=== PATIENT | female | born 1995 | race Caucasian/White ===

== ENCOUNTER 2018-09-14 12:31 | Emergency (ER) | payer MEDICAID, SELFPAY ==
[2018-09-14 12:32] VITALS: BP 118/73; PULSE 75; RESP 16; TEMP 36.7; O2SAT 100; BMI 26.6
--- NOTE | 2018-09-14 13:06 | US_ITS ---
STUDY: FIRST TRIMESTER OBSTETRICAL ULTRASOUND REASON FOR EXAM: Female, 23 years old. Left pelvic pain LMP: 08/01/2018 TECHNIQUE: Transvaginal TECHNICAL QUALITY: Adequate. PRIOR ULTRASOUND: None. FINDINGS: There is visualization of a single gestational sac in a normal intrauterine position. The mean sac diameter (MSD) measures 0.6 cm, indicating an estimated gestational age (EGA) of 5 weeks, 0 days. The gestational sac shape is within normal limits. There is no demonstrated yolk sac. The placenta is non-visualized. There is no demonstrated embryo ( pole). The estimated gestation age (EGA) by LMP is 6 weeks, 2 days. The estimated date of delivery (KATHERINE) by LMP is 05/08/2019. The estimated gestation age (EGA) by US is 5 weeks, 0 days. The estimated date of delivery (KATHERINE) by US is 05/17/2019. The uterus measures 8.4 x 6.9 x 4.7 cm. There is no demonstrated uterine fibroid. The cervix is closed. Endometrium measures 1.3 cm The right ovary measures 2.9 x 2.5 x 2.0 cm. There is no right ovarian cyst. There is no visualized right adnexal mass or complex lesion. The left ovary measures 4.1 x 2.6 x 1.6 cm. There is a isoechoic nodule in the left ovary measuring 1.8 x 1.8 x 1.2 cm, possible resolving cyst. There is minimal fluid in the cul de sac. US/Transvaginal w/Preg US IMPRESSION: Possible gestational sac noted within the uterus measuring 6 mm. On the KATHERINE scale this measures only 5 weeks 0 days. There is no pole, yolk sac or heart rate identified. It is likely too early to determine viability. Recommend serial beta-hCG studies and follow-up ultrasound in 10-14 days to determine viability. Free fluid in the cul-de-sac Electronically Signed: Estrada Peacock MD at 15:05 EST , Service support ,
[2018-09-14] MEDS: Ondansetron 4 MG/2 ML Vial IV (13:25)
[2018-09-14] MEDS: Morphine 4 MG/ML Syringe IV ×2 (13:25→15:02)
[2018-09-14 14:05] LABS: hCG Titer Quant., Serum 1431 mIU/mL (<9 non-preg)
[2018-09-14 14:47] LABS: Mucous, Urine 0 SEEN /hpf (<or=2+); Red Blood Cells-Urine 0 SEEN /hpf (0-5)
[2018-09-14 14:51] LABS: Color, Urine Yellow (Yellow); Glucose, Dipstick 250 mg/dl (Normal); Ketone-Dipstick Negative (Negative); Leukocyte Esterase-Dipstick Negative /ul (Negative); Nitrite-Dipstick Negative (Negative); Occult Blood-Urine Negative /ul (Negative); Protein-Dipstick Negative (Negative); Urine Bilirubin Dipstick Negative (Negative); Urine Clarity Sl. Cloudy (Clear); Urine Urobilinogen Normal (Normal)
[2018-09-14 15:08] VITALS: BP 108/63; PULSE 81; RESP 16; O2SAT 100
[2018-09-14 15:10] LABS: Bacteria RARE /hpf (None Seen); Squamous Epithelial Cells - UA 0-5 SEEN /hpf (5-10); White Blood Cells 0-5 SEEN /hpf (0-5)
--- NOTE | 2018-09-14 15:23 | ED.VISSUMM ---
- ER Visit Summary Date of Service: 09/14/18 Chief Complaint: [Abdominal pain] History of Present Illness: The patient is a 23 F [presents to the emergency department complaint of abdominal pain that started 2 days ago. Patient states the pain is been continuous in the left lower quadrant and is sharp and stabbing and rates it a 8 out of 10. Patient's not had any diarrhea. Patient has vomited 4 times in the last 2 days. Patient states that she was seen at [facility] 2 days ago and had a quant that was 332. Patient also had an ultrasound that did not show anything significant. Patient subsequently had an quant 48 hours later showed her quant to be 662. Patient states that she also had another quant today and she does not know the results of it. Patient is . Patient's last menstrual period was August 04. She denies any vaginal bleeding.] Physical Examination: [HEENT-PERRLA, EOMI. Cranial nerves II through XII grossly intact. TMs clear. Mucous membranes moist. No adenopathy. Cardiovascular-regular rate and rhythm without murmur or ectopy Lungs-clear to auscultation, chest wall stable without crepitus or subcu emphysema Abdomen-normoactive bowel sounds, soft. Patient has tenderness over left lower quadrant with guarding. There is no rebound, rigidity, or perineal signs. No masses palpated. Extremities-intact ?4, normal range of motion, normal pulses, atraumatic] Test Results: [Quantitative hCG obtained in the department was 1431. Type and Rh was A+. Urinalysis unremarkable. Pelvic ultrasound showed possible gestational sac noted within the uterus measuring 6 mm on the KATHERINE scale this measures only 5 weeks 0 days there is no pole yolk sac or heart rate identified at this time. It is likely too early to determine viability. Recommended serial beta-hCG studies and follow-up ultrasound in 10 or 14 days to determine viability.] Emergency Department Course and Treatment: [Patient was medicated with morphine and Zofran initially on presentation. Patient had to be remedicated with a second dose of morphine 4 mg.] Treatment Plan: [Patient case was discussed with Dr. Garcia who is on-call for CHARGER OPERATOR who asked that patient follow-up with our office early next week and their office will call for an appointment. Patient will be given a prescription for [place] for pain. I had a long discussion with the patient at this time patient is unsure if she wants to continue the .] Disposition: [Discharged home in stable condition] Impression: [Abdominal pain-etiology uncertain at 5 weeks 0 days] This note was generated with Re-APP dictation software. It may contain incorrect words, spelling, and punctuation that were not noted in review of the chart prior to signing ED Disposition - Plan for ED Patient: Chief Complaint: Abd Pain Referrals: [facility] Doctor,Out of [Primary Care Provider] -
--- NOTE | 2018-09-14 15:27 | ED.DCSUM_ITS ---
- ER Visit Summary Date of Service: 09/14/18 Chief Complaint: [Abdominal pain] History of Present Illness: The patient is a 23 F [presents to the emergency department complaint of abdominal pain that started 2 days ago. Patient states the pain is been continuous in the left lower quadrant and is sharp and stabbing and rates it a 8 out of 10. Patient's not had any diarrhea. Patient has vomited 4 times in the last 2 days. Patient states that she was seen at [facility] 2 days ago and had a quant that was 332. Patient also had an ultrasound that did not show anything significant. Patient subsequently had an quant 48 hours later showed her quant to be 662. Patient states that she also had another quant today and she does not know the results of it. Patient is . Patient's last menstrual period was August 04. She denies any vaginal bleeding.] Physical Examination: [HEENT-PERRLA, EOMI. Cranial nerves II through XII grossly intact. TMs clear. Mucous membranes moist. No adenopathy. Cardiovascular-regular rate and rhythm without murmur or ectopy Lungs-clear to auscultation, chest wall stable without crepitus or subcu emphysema Abdomen-normoactive bowel sounds, soft. Patient has tenderness over left lower quadrant with guarding. There is no rebound, rigidity, or perineal signs. No masses palpated. Extremities-intact ?4, normal range of motion, normal pulses, atraumatic] Test Results: [Quantitative hCG obtained in the department was 1431. Type and Rh was A+. Urinalysis unremarkable. Pelvic ultrasound showed possible gestational sac noted within the uterus measuring 6 mm on the KATHERINE scale this measures only 5 weeks 0 days there is no pole yolk sac or heart rate identified at this time. It is likely too early to determine viability. Recommended serial beta-hCG studies and follow-up ultrasound in 10 or 14 days to determine viability.] Emergency Department Course and Treatment: [Patient was medicated with morphine and Zofran initially on presentation. Patient had to be remedicated with a second dose of morphine 4 mg.] Treatment Plan: [Patient case was discussed with Dr. Garcia who is on-call for PHYSICIAN CODING SPECIALIST who asked that patient follow-up with our office early next week and their office will call for an appointment. Patient will be given a prescription for [place] for pain. I had a long discussion with the patient at this time patient is unsure if she wants to continue the .] Disposition: [Discharged home in stable condition] Impression: [Abdominal pain-etiology uncertain at 5 weeks 0 days] This note was generated with VISUALPLANT dictation software. It may contain incorrect words, spelling, and punctuation that were not noted in review of the chart prior to signing ED Disposition - Plan for ED Patient: Chief Complaint: Abd Pain Referrals: [facility] Doctor,Out of [Primary Care Provider] -
--- NOTE | 2018-09-14 15:29 | DCINST.ED_ITS ---
ED Disposition - Plan for ED Patient: Chief Complaint: Abd Pain Instructions: ED Abdominal Pain Unkn Cause Prescriptions: Hydrocodone Bitart/Apap 5-325 [[place] 5MG-325MG] 1 tab PO Q4H PRN PRN 2 Days #15 tab PRN Reason: Pain Referrals: [facility] Doctor,Out of [Primary Care Provider] - Artemio Garcia [STAFF PHYSICIAN] - 3-5 Days
--- NOTE | 2018-09-14 16:22 | ED.DEP ---
ED Disposition - Plan for ED Patient: Chief Complaint: Abd Pain Instructions: ED Abdominal Pain Unkn Cause Prescriptions: Hydrocodone Bitart/Apap 5-325 [[place] 5MG-325MG] 1 tab PO Q4H PRN PRN 2 Days #15 tab PRN Reason: Pain proMETHazine tablet [Phenergan] 25 mg PO Q6H PRN PRN #10 tab PRN Reason: Nausea Referrals: Artemio Garcia [STAFF PHYSICIAN] - 3-5 Days [facility] Doctor,Out of [Primary Care Provider] -
[2018-09-14 16:38] VITALS: BP 130/74; PULSE 74; RESP 16; O2SAT 98
== END 2018-09-14 16:38 | disposition home or self-care (01) ==
PROVIDERS: Emergency Provider Emergency Medicine
DX: O26.891 Other specified pregnancy related conditions, first trimester (principal); R10.9 Unspecified abdominal pain; Z3A.01 Less than 8 weeks gestation of pregnancy; Z79.899 Other long term (current) drug therapy
CPT/HCPCS: 76817; 81001; 84702; 86900; 96374; 96375; 96376; 99282; J7030; A4216; J2405

== ENCOUNTER 2018-10-06 10:56 | Emergency (ER) | payer MEDICAID, SELFPAY ==
[2018-10-06 10:57] VITALS: BP 104/65; PULSE 64; RESP 16; TEMP 36.4; O2SAT 100; BMI 28.2
[2018-10-06] MEDS: Acetaminophen 500 MG Tablet 1000 MG PO (11:39)
[2018-10-06] MEDS: DiphenhydrAMINE 50 MG/ML Syringe IV (11:40)
[2018-10-06] MEDS: proCHLORPERazine 10 MG/2 ML Vial IV (11:40)
--- NOTE | 2018-10-06 12:26 | ED.DCSUM_ITS ---
- ER Visit Summary Date of Service: 10/06/18 Chief Complaint: Headache History of Present Illness: The patient is a [address] Toño Gleason [facility]. She is a at 8 weeks by ultrasound 4 days ago. She denies any vaginal bleeding or discharge . She reports that she has a headache that began yesterday and is gradually gotten worse. Is a throbbing sensation a halo. 10 at 10 worsening a 10 currently. Is worsened by vomiting. She relieved by nothing. She reports she is vomited 4 times. No blood or emesis. She complains of photophobia and blurred vision. She has had similar headaches multiple times in the past. Last one being approximate 4 days ago. She denies any fever, chills, or other complaints. Physical Examination: Vitals: Stable. Afebrile. General: Well-nourished and well-developed. Head: Normocephalic atraumatic. Neck: Supple, no lymphadenopathy. No JVD. Nontender. Cardiovascular: Regular rate and rhythm. No murmurs. Respiratory: No respiratory distress. Clear to auscultation bilaterally. Abdominal: Soft, nontender, nondistended, normal bowel sounds. No guarding, rebound, or peritoneal signs. Back: Nontender. Extremities: Nontender, no edema. Skin: Normal color, no rash. Neurologic: Alert and oriented ?3. Cranial nerves II through XII are intact. Normal strength and sensation. Psych: Normal affect. Emergency Department Course and Treatment: Patient had IV placed. She was given Compazine and Benadryl IV. She was given Tylenol p.o. She is resting comfortably. Treatment Plan: Patient will be discharged symptomatic care. Instructed to follow-up with Dr. Toño Gleason in 1-2 days not improving. Return to the emergency department for any worsening symptoms. Disposition: To home in improved and stable condition. Impression: 1. Migraine headache. 2. First trimester . This note was generated with VoicePrism Innovationsation software. It may contain incorrect words, spelling, and punctuation that were not noted in review of the chart prior to signing ED Disposition - Plan for ED Patient: Chief Complaint: Headache Instructions: ED Headache Migraine Referrals: Kevin Sotelo MD [STAFF PHYSICIAN] - 1-2 Days if not improving
[2018-10-06 14:06] VITALS: PULSE 66; RESP 17; O2SAT 100
== END 2018-10-06 14:07 | disposition home or self-care (01) ==
PROVIDERS: Emergency Provider Emergency Medicine
DX: O26.891 Other specified pregnancy related conditions, first trimester (principal); G43.909 Migraine, unspecified, not intractable, without status migrainosus; Z3A.08 8 weeks gestation of pregnancy; F90.9 Attention-deficit hyperactivity disorder, unspecified type; F41.9 Anxiety disorder, unspecified; Z79.899 Other long term (current) drug therapy
CPT/HCPCS: 96374; 96375; 99284; J7030; A4216

== ENCOUNTER 2018-10-12 03:26 | Emergency (ER) | payer MEDICAID, SELFPAY ==
[2018-10-12 03:27] VITALS: PULSE 67; RESP 18; TEMP 36.6; O2SAT 99; BMI 28.6
--- NOTE | 2018-10-12 03:38 | ED.DCSUM_ITS ---
- ER Visit Summary Date of Service: 10/12/18 Chief Complaint: [] Nausea and vomiting History of Present Illness: The patient is a 23 F stated she has been having nausea and vomiting for the last 2-3 days. She had 10 episodes yesterday of 5 today. This is her third . She is 8 weeks 5 days by dates. She is seeing Dr. Reyes with OB. She has Zofran and Dramamine at home for nausea as she gets frequent migraines but it does not seem to be helping. Comes in for further symptomatic treatment she does not want to get dehydrated Physical Examination: Vital signs reviewed General: Well-nourished well-developed Head: Normocephalic atraumatic Eyes: Pupils equal round and reactive to light extraocular movements intact ENT: TMs clear no hemotympanum no trauma Neck: Nontender full range of motion Cardiovascular: Regular rate rhythm no murmurs normal S1-S2 Respiratory: No distress clear to auscultation bilaterally chest nontender Abdomen: Soft nontender nondistended normal bowel sounds no masses Back: Nontender no CVA tenderness Extremities: Nontender active range of motion ?4 extremities no trauma Skin: Normal color no trauma Neuro alert oriented cranial nerves II through XII intact normal strength sensation reflexes Test Results: [] Emergency Department Course and Treatment: [] Resting comfortably. Given IV fluids and she requested Compazine. Given Compazine. Better after treatment. Resting comfortably. Will be discharged with a short course of Phenergan. I do not feel she needs further lab work. She appears nontoxic. She will follow-up with her SPEECH LANGUAGE PATHOLOGY ASSISTANT and has an appointment in 3 days. Treatment Plan: [] Disposition: [] Impression: [] Nausea And vomiting in This note was generated with DigiZmartation software. It may contain incorrect words, spelling, and punctuation that were not noted in review of the chart prior to signing ED Disposition - Plan for ED Patient: Chief Complaint: Nausea/Vomiting Referrals: Kevin Sotelo MD [Primary Care Provider] -
[2018-10-12] MEDS: 0.9% Normal Saline 1,000 ML 1000 ML IV (03:46)
[2018-10-12] MEDS: proCHLORPERazine 10 MG/2 ML Vial IV (03:46)
--- NOTE | 2018-10-12 04:20 | ED.DEP ---
ED Disposition - Plan for ED Patient: Disposition: Home or Assisted Living Chief Complaint: Nausea/Vomiting Instructions: ED Preg Morning Sickness Prescriptions: proMETHazine tablet [Phenergan] 25 mg PO Q6H PRN PRN #10 tab PRN Reason: Nausea Ondansetron [Zofran Odt] 8 mg PO Q8H PRN PRN #10 tab PRN Reason: Nausea Referrals: Kevin Sotelo MD [Primary Care Provider] -
[2018-10-12 04:58] VITALS: PULSE 88; RESP 16; O2SAT 98
--- OUTSIDE RECORDS SUMMARY | 2018-11-27 16:10 | XMS RPT_ITS ---
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 Gestational diabetes 10/31/2013 - Migraine - Stroke ([facility]) - Type 2 diabetes mellitus ([facility]) - Unspecified asthma(493.90) EXERCISE INDUCED PAST SURGICAL HISTORY Procedure Laterality Date - APPENDECTOMY summer 2005 - BREAST LUMPECTOMY HX - DANDC AFTER DELIVERY 01/03/14 3 days PP, delayed PP hemorrhage - EXCISION OF LINGUAL TONSIL 06/01 - PAST SURGICAL HISTORY OF left knee surgery FAMILY HISTORY Problem Relation Age of Onset - No Known Problems Mother - Allergies Father - Skin Cancer Father - Stroke Father - No Known Problems Sister - Skin Cancer Brother - No Known Problems Brother - Cancer Maternal Grandmother OVARIAN, great grandmother also - Prostate Cancer Maternal Grandfather LUNG AND PROSTRATE - Emphysema Maternal Grandfather - COPD Maternal Grandfather - other (cholecystitis) Sister - Diabetes Paternal Uncle - Diabetes Paternal Aunt - No Known Problems Daughter Social History Marital status: Spouse name: Years of education: 14 Number of children: Occupational History 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 Has a daughter born 2013. Patient denies tobacco use, EtOH use or experimentation with illegal drugs. Current Outpatient Prescriptions: acetaminophen (TYLENOL) 500 mg tablet Take 500 mg by mouth. acetaminophen 325 mg-caffeine 40 mg-butalbital 50 mg (FIORICET) per tablet Take by mouth. albuterol (PROVENTIL) 2.5 mg /3 mL (0.083 %) nebulizer solution albuterol HFA (VENTOLIN HFA) 90 mcg/actuation inhaler Inhale 2 Puffs as instructed every 4 hours as needed for Wheezing/Shortness of Breath. ALPRAZolam (XANAX) 0.5 mg tablet Take 1 po TID and 2 po qhs amphetamine-dextroamphetamine XR (ADDERALL XR) 20 mg 24 hr capsule Take 1 capsule by mouth once daily for 30 days.Earliest Fill Date: 10/01/18 aspirin-calcium carbonate 81 mg-300 mg calcium(777 mg) tab Take 81 mg by mouth. blood sugar diagnostic (BLOOD GLUCOSE TEST) test strip Test blood sugar(s) 3 times daily. Dx: Type 2 DM - Controlled E11.9 Insulin: No. Elevated sugars and fluctuating sugars. Blood-Glucose Meter misc 1 Package four times daily. Check blood sugars fasting and 2 hours after meals. buPROPion SR (ZYBAN SR; WELLBUTRIN SR) 150 mg 12 hr tablet Take 1 tablet by mouth twice daily. cetirizine (ZYRTEC) 10 mg tablet Take 10 mg by mouth. doxylamine 25 mg tab Take 1 tablet by mouth daily at bedtime. EPINEPHrine (EPIPEN) 0.3 mg/0.3 mL auto-injector Use as directed prn allergic reaction lamoTRIgine (LAMICTAL) 100 mg tablet Take 1 tablet by mouth once daily. meclizine (ANTIVERT) 25 mg tab Take 1 tablet by mouth every 6 hours as needed (dizziness). mometasone (ASMANEX) 220 mcg (60 doses) aepb Inhale as instructed. ondansetron orally disintegrating (ZOFRAN ODT) 4 mg disintegrating tablet [id number]-Fm-Hvz-Fe-FA ( VITAMIN) tab Take 1 tablet by mouth. promethazine (PHENERGAN) 25 mg tablet Take 1 tablet by mouth every 6 hours as needed. SUMAtriptan (IMITREX) 50 mg tablet Take 50 mg by mouth. triamcinolone acetonide (NASACORT AQ) 55 mcg nasal inhaler Use in the nose. cyclobenzaprine (FLEXERIL) 10 mg tablet Take 10 mg by mouth. gabapentin (NEURONTIN) 800 mg tablet Take 800 mg by mouth. takes a sneeded hydrOXYzine pamoate (VISTARIL) 25 mg capsule Take 1 capsule by mouth three times daily as needed for Anxiety. (Patient not taking: Reported on 10/15/2018 ) metFORMIN (GLUCOPHAGE) 500 mg tablet Take 1 tablet by mouth twice daily with meals. . (Patient not taking: Reported on 06/05/2018 ) naproxen (NAPROSYN) 500 mg tablet Take 1 tablet by mouth twice daily with meals. (Patient not taking: Reported on 10/15/2018 ) pyridoxine, vitamin B6, (VITAMIN B6) 25 mg tablet Take 1 tablet by mouth daily at bedtime. (Patient not taking: Reported on 10/29/2018 ) topiramate (TOPAMAX) 25 mg tablet No current facility-administered medications for this visit. Allergies As of Date: 10/29/2018 Allergen Noted Reaction LATEX 06/05/2018 Unknown TAPE [OTHER] 11/23/2005 Rash VERAPAMIL 06/05/2018 Anaphylaxis Fully Assessed 10/29/2018 REVIEW OF SYSTEMS Abdomen: No bloating, early satiety, indigestion, or increased flatulence. No nausea, vomiting, diarrhea, or constipation. + Abdominal pain noted, Rt>Lt side, rated 7-8/10 Bladder: No dysuria, gross hematuria, urinary frequency, urinary urgency, or incontinence. Breast: No breast lumps, nipple d/c, overlying skin changes, redness or skin retraction. Expanded ROS: N/A Allergies and current medication updated:Yes EXAM: BP 106/74 Wt 161 lb (73.0kg) LMP 08/01/2018 GENERAL: pleasant, female in moderate distress HEENT: Normocephalic, atraumatic, mucus membranes moist and no lesions NECK: Supple, full range of motion, no adenopathy and thyroid normal DERMATOLOGY: Normal, without lesions, non-icteric and non-hirsute BREAST: deferred CHEST: Normal inspiratory effort ABDOMEN: soft, non-tender, no masses, no hepatosplenomegaly, no lymphadenopathy and Mild tenderness in Generalized PELVIC: external genitalia normal, normal Bartholin's glands, urethra, Juliaetta's glands, no vulvar lesions, no cervical lesions, good vaginal support, normal appearing perineal body and perianal region BIMANUAL: uterus normal size, shape and consistency, no adnexal masses, non-tender and NT to palpation NEURO: alert and oriented x3,exam grossly non-focal EXTREMITIES: normal Limited TVUS - Thickened endometrium measuring between 10- 45mm, normal adnexa noted. No evidence of heterogenous structure on Rt. Ovary noted. No IUP noted. ASSESSMENT AND PLAN: Encounter Diagnosis ICD-10-CM 1. Spontaneous O03.9 1) Cytotec 200mg PO q 6 hours 2) Flexeril 10mg PO BID PRN pain #10 disp no RF 3) Bleeding Precautions reviewed 4) RTC PRN Lino Huber APRN.KIRILL Referring Provider: SELF [200] Allergies As of Date: 10/29/2018 Noted Allergy Reaction LATEX 06/05/2018 16 - Unknown TAPE [Other] 11/23/2005 2 - Rash VERAPAMIL 06/05/2018 10 - Anaphylaxis Date Reviewed: 10/29/2018 Reviewed by: Maria Alejandra Anna Ma - Fully Assessed Reason for Visit: Care [86] Cmt: Bleeding Reason For Visit History Recorded Primary Visit Diagnosis:Spontaneous [O03.9] Order(s):miSOPROStol (CYTOTEC) 200 mcg tabletTake 1 tablet by mouth every 6 hours as needed.Disp: 4 tabletRfl: 0 cyclobenzaprine (FLEXERIL) 10 mg tabletTake 1 tablet by mouth twice daily as needed.Disp: 10 tabletRfl: 5 Prescriptions as of 10/29/2018 Sig: ACETAMINOPHEN 500 MG TABLET Take 500 mg by mouth. QYSDTEWSGO-[id number]-HWBF* Take by mouth. ALBUTEROL SULFATE 2.5 MG/3 ML* ALBUTEROL SULFATE HFA 90 MCG/* Inhale 2 Puffs as instructed * ALPRAZOLAM 0.5 MG TABLET Take 1 po TID and 2 po qhs DEXTROAMPHETAMINE-AMPHETAMINE* Take 1 capsule by mouth once * ASPIRIN-CALCIUM CARBONATE 81 * Take 81 mg by mouth. BLOOD SUGAR DIAGNOSTIC STRIPS Test blood sugar(s) 3 times d* BLOOD-GLUCOSE METER 1 Package four times daily. C* BUPROPION HCL SR 150 MG TABLE* Take 1 tablet by mouth twice * CETIRIZINE 10 MG TABLET Take 10 mg by mouth. DOXYLAMINE SUCCINATE 25 MG TA* Take 1 tablet by mouth daily * EPINEPHRINE 0.3 MG/0.3 ML INJ* Use as directed prn allergic * LAMOTRIGINE 100 MG TABLET Take 1 tablet by mouth once d* MECLIZINE 25 MG TABLET Take 1 tablet by mouth every * MOMETASONE 220 MCG (60 DOSES)* Inhale as instructed. ONDANSETRON 4 MG DISINTEGRATI* VITAMIN,CALCIUM,MINE* Take 1 tablet by mouth. PROMETHAZINE 25 MG TABLET Take 1 tablet by mouth every * SUMATRIPTAN 50 MG TABLET Take 50 mg by mouth. TRIAMCINOLONE ACETONIDE 55 MC* Use in the nose. CYCLOBENZAPRINE 10 MG TABLET Take 1 tablet by mouth twice * GABAPENTIN 800 MG TABLET Take 800 mg by mouth. takes a* HYDROXYZINE PAMOATE 25 MG CAP* Take 1 capsule by mouth three* Patient not taking: Reported on 10/15/2018 METFORMIN 500 MG TABLET Take 1 tablet by mouth twice * Patient not taking: Reported on 06/05/2018 MISOPROSTOL 200 MCG TABLET Take 1 tablet by mouth every * NAPROXEN 500 MG TABLET Take 1 tablet by mouth twice * Patient not taking: Reported on 10/15/2018 PYRIDOXINE (VITAMIN B6) 25 MG* Take 1 tablet by mouth daily * Patient not taking: Reported on 10/29/2018 TOPIRAMATE 25 MG TABLET Problem List As Of Date 10/29/2018 Noted Resolved Inguinal hernia with obstruction, without menti*INVALID FOR*03/18/2013 PAIN GROIN (right) [R10.9] INVALID FOR*03/18/2013 Abdominal pain, right lower quadrant [R10.31] INVALID FOR*03/18/2013 Lumbago [M54.5] INVALID FOR* Headache [R51] INVALID FOR* TMJ (temporomandibular joint syndrome) [M26.609]INVALID FOR* Intermittent asthma with allergic rhinitis [J45*INVALID FOR* More... Family history of defects [Z82.79] INVALID FOR*10/07/2015 More... More... Rubella non-immune status, antepartum [O99.89, *INVALID FOR*02/11/2014 More... Gestational diabetes [O24.419] INVALID FOR*02/11/2014 More... Supervision of other high-risk (V23.89*INVALID FOR*02/11/2014 More... Type 2 diabetes mellitus without complication (*INVALID FOR* More... Anxiety [F41.9] INVALID FOR* Bipolar affective disorder (HCC) [F31.9] INVALID FOR* Support system deficit [Z65.8] INVALID FOR* More... History of loss in prior , c*INVALID FOR*10/29/2018 More... History of bipolar disorder [Z86.59] INVALID FOR* More... History of stroke [Z86.73] INVALID FOR* More... History of gestational diabetes in prior pregna*INVALID FOR*10/29/2018 More... History of macrosomia in infant in prior pregna*INVALID FOR*10/29/2018 More... History of shoulder dystocia with result of fra*INVALID FOR*10/29/2018 More... History of hemorrhage, currently pre*INVALID FOR*10/29/2018 More... Patient request for diagnostic testing [Z01.89] INVALID FOR* More... Breast pain, left [N64.4] INVALID FOR* More... Positive BARTOLO (antinuclear antibody) [R76.8] INVALID FOR* More... Supervision of high risk in first tri*INVALID FOR*10/29/2018 More... Other instructions from your clinician: Bleeding in Early Many women experience bleeding in the first trimester. This can be part of the normal process of establishing the , commonly called implantation bleeding or can occur if there is a collection of blood in the uterus (your doctor may refer to this as a subchorionic hemorrhage or subchorionic hematoma). Bleeding can also happen due to infection in the vagina or benign overgrowths on the cervix called polyps. Most of these situations will go on to be normal pregnancies. Bleeding can also occur with a miscarriage or an ectopic ( outside of the uterus, most commonly in the fallopian tube). In order to tell if the is normal or not, your doctor may order lab tests or an ultrasound. Blood work is usually done to check your HCG level, which is the hormone. HCG increases in a predictable pattern in early . If the level is decreasing it means the has stopped developing. Your doctor will also order a blood type test if your blood type is unknown. If your blood type is negative you will receive an injection of Rhogam to prevent sensitization for future pregnancies. An ultrasound may be ordered to see if the is in the correct location or to check if the fetus has a heartbeat. Whether an ultrasound will be helpful or not depends on how far along you are in the . If you are diagnosed with a miscarriage (also called a spontaneous ), there are several options for treatment. You may choose to wait and see if your body will pass the on its own, which is similar to a heavy period with cramping. Misoprostol is a medication that can help speed up the process and is given either in the vagina or by mouth. Surgical management for miscarriage is called a DANMO and involves your doctor emptying out the uterus with suction. This is done under sedation in the operating room. If at any time you experience heavy vaginal bleeding (soaking through a pad in an hour or less), severe abdominal pain, lightheadedness or shortness of breath you need to call your doctor immediately or go the the emergency room. We understand this is a difficult time for you and your family and will do our best to answer all of your questions and concerns. SIGNS AND SYMPTOMS OF LABOR 1. Contractions every 10 minutes or more often 2. Clear, pink, or brownish fluid (water) leaking from vagina 3. Feeling that baby is pushing down, pressure 4. Low, dull backache 5. Cramps that feel like a period 6. Cramps with or without diarrhea If you notice any of the above symptoms, contact our office at [phone] and ask to speak with a nurse. After hours, you can call doctors registry at [phone] OR call [facility] at [phone] and ask to have the doctor adapted physical education specialist paged. If you consider this an emergency, dial 1-4-6 or go to your nearest emergency department. NEED HELP? Are you dealing with a violent or abusive relationship? Are you a victim of rape or sexual assult? Call [facility] ([facility] 24 hour Crisis Hotline: 333.504.5171 or 735-217-8176. MANUAL Your Guide to a Healthy manual is now on-line. Visit [email or web address] to download your free copy Prescriptions ordered this encounter Disp Refills Start End MISOPROSTOL 200 MCG TABLET 4 ta* 0 10/29/2018 10/29/2018 Route: ORAL Sig: Take 1 tablet by mouth every 6 hours as needed. Disc: Other MISOPROSTOL 200 MCG TABLET 4 ta* 0 10/29/2018 Route: ORAL Sig: Take 1 tablet by mouth every 6 hours as needed. CYCLOBENZAPRINE 10 MG TABLET 10 t* 5 10/29/2018 Route: ORAL Sig: Take 1 tablet by mouth twice daily as needed. Medications Discontinued During This Encounter miSOPROStol (CYTOTEC) 200 mcg tablet 4 ta* 0 10/29/2018 10/29/2018 Route: ORAL Sig: Take 1 tablet by mouth every 6 hours as needed. Disc: Other cyclobenzaprine (FLEXERIL) 10 mg tab* 10/29/2018 Class: Historical Med Route: ORAL Sig: Take 10 mg by mouth. Disc: Reason for discontinue is not on file. Disposition: Return if symptoms worsen or fail to improve. Follow-up and Disposition History Recorded Encounter Status:Closed by LINO HUBER CNM on 10/29/18 URINALYSIS, COMPLETE Collected: 10/28/2018 Status: F Source: [place] 10:20 PM [facility] [place] [facility] Order Comment: Order Date: 10/28/18 COLOR OF URINE MAY AFFECT DIPSTICK RESULTS. How was Urine Obtained? CLEAN CATCH TYPE CODE TESTS RESULT OUT OF RANGE REFERENCE UNITS LAB L400.3000 Yellow COLOR Normal Red LAB L400.3050 Clear Normal CLARITY Cloudy LAB L400.3200 Normal mg/dl High 50 GLUCOSE, UR LAB L400.3300 Negative mg/dL Normal BILIRUBIN URINE Negative LAB L400.3400 Negative mg/dl High 5 KETONE UR LAB L400.3465 1.002-1.030 Normal SP.GR. DIPSTX 1.015 LAB L400.3550 5.0 - 8.0 pH UR Normal 6.5 LAB L400.3600 Negative mg/dl High PROT 30 DIPSTX LAB L400.3700 Normal mg/dl Normal UROBILI Normal LAB L400.3750 Negative Normal NITRITE UR Negative LAB L400.3780 Negative /ul High OCCULT BLOOD-UR 250 LAB L400.3800 Negative /ul High LEUK ESTERASE 100 LAB L400.4050 0-5 /hpf WBC Normal 0-5 SEEN LAB L400.4100 0-5 /hpf > Normal RBC-UA 100 SEEN LAB L400.4150 5-10 /hpf SQUAM Normal EPI 0-5 SEEN LAB L400.4300 None Seen /hpf 0 Normal BACTERIA SEEN LAB L400.4350 <or=2+ /hpf 0 Normal MUCUS, URINE SEEN Performed By: #### L400.0001 #### [facility] [address] [place], [address] TRANSVAGINAL W/PREG US Observed: 10/28/2018 Status: F Source: [place] 9:22 PM [facility] [place] [facility] Imaging Services [address] [place] [address] Transvaginal w/Preg US MR#: [id number] Acct: [id number] Name: BERNADETTE FAUST Rep #: [id number] : 1995 F 23 From: Stanton Matson PCP: Becky Sotelo MD Status: REG ER Study: Transvaginal w/Preg US Date of Exam: 10/28/18 Exam# [id number] Ordering Dr: Raghu Orozco MD STUDY: FIRST TRIMESTER OBSTETRICAL ULTRASOUND REASON FOR EXAM: Female, 23 years old. Abdominal pain. Worsening bleeding with . LMP: 08/11/2018. TECHNIQUE: Transabdominal. TECHNICAL QUALITY: Adequate. PRIOR ULTRASOUND: October 22, 2018. FINDINGS: Nonvisualization of the gestational sac, yolk sac, placenta or embryo. No heart tones identified. Previously noted embryo is not visualized. The estimated gestation age (EGA) by LMP is 11 weeks, 1 days. The estimated date of delivery (KATHERINE) by LMP is 05/18/2019.. The uterus measures 10.2 x 8.9 x 6.6 cm. There is no demonstrated uterine fibroid. Endometrium measures 46 mm and is heterogeneous in echotexture. The cervix is closed. The right ovary measures 2.9 x 2.1 x 1.6 cm. There is no right ovarian cyst. There is no visualized right adnexal mass or complex lesion. Inferior to the right ovary is a 1.7 x 1.7 cm heterogeneous structure with an anechoic center of uncertain clinical significance. The left ovary measures 3.6 x 2.7 x 1.9 cm. There is no left ovarian cyst. There is no visualized left adnexal mass or complex lesion. There is no fluid in the cul de sac. US/Transvaginal w/Preg US IMPRESSION: Previously noted intrauterine gestation is no longer visualized. This suggests a recent miscarriage. Recommend serial beta-hCG, close clinical correlation and follow-up ultrasound as warranted. Thickened heterogeneous endometrium suggestive of retained products of conception. 1.7 cm heterogeneous structure inferior to the right ovary of uncertain clinical significance. A concurrent ectopic is unlikely. This can be followed with ultrasound. Electronically Signed: Stanton Matson MD at 0:35 EST , Service support , CC: Raghu Orozco MD; Becky Sotelo MD [employer] Supervisor: Signed PROGRESS Observed: 10/26/2018 Status: COMPLETED Source: [place] 8:06 AM [facility] [place] RE[facility] HNO ID: [id number] Author: Angelique Cee Service: (none) Author Type: Nurse Practitioner Type: Progress Notes Filed: 10/26/2018 8:08 AM Note Text: This is an Express Care eVisit note for Bernadette Faust eVisit/Questionnaire reviewed The chief complaint for the visit - Patient presents with: (R05) Cough (primary encounter diagnosis) Recommendations/Treatment plan - referral See My Chart Message to patient. Recommendation for follow up - in person No medications selected for refill. Angelique Cee APRN.[facility] EMERGENCY DEPARTMENT Observed: 10/22/2018 Status: F Source: [place] SUMMARY 10:47 PM [facility] [place] [facility] [facility] Medical Records Department [address] [place] [address] Emergency Department Summary 10/22/182008 MR#: [id number] Acct: [id number] Name: BERNADETTE FAUST Rep #: [id number] : 1995 23 From: Linda Watkins MD PCP: Becky Sotelo MD Status: DEP ER - ER Visit Summary Date of Service: 10/22/18 Chief Complaint: [] Pelvic cramps scant vaginal bleeding 10 weeks by history History of Present Illness: The patient is a 23 F [] AB 1 reports she 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 she presents complaining of some pelvic cramps that occurred after she had been moving some light boxes, no trauma no sex, she noticed that she wiped she noticed some minimal blood on the toilet paper no heavy bleeding, she had no trauma to her body no back pain no urinary symptoms, she indicates she is been seen multiple times in the 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 by [facility] she has had multiple ultrasounds that have shown a 10-week live IUP no ectopic her quant to been in the normal ranges she presents for evaluation Physical Examination: [] Her vital signs are all within normal range she is in no distress General, no distress resting comfortably HEENT is generally unremarkable The neck is supple no adenopathy Cardiovascular, regular rate and rhythm Lungs, clear bilateral Abdomen, soft nontender, she complains of some vague pain in the suprapubic area this area is soft and nontender Extremities, no clubbing cyanosis or edema Neurologic, awake alert answering questions appropriately moving all 4 extremities Test Results: [] Emergency Department Course and Treatment: [] This time given all the above screening labs ultrasound Ultrasound per radiology shows 10-week live IUP no signs of ectopic see that report her UA labs are generally unremarkable she reports she is a positive she is feeling better All the above she will discharge home pelvic rest threatened AB instructions follow with her physicians and return for change in symptoms Treatment Plan: [] Disposition: [] Home stable Impression: [] Vaginal bleeding, threatened AB, 10-week live IUP ultrasound This note was generated with [employer] dictation software. It may contain incorrect words, spelling, and punctuation that were not noted in review of the chart prior to signing ED Disposition - Plan for ED Patient: Chief Complaint: Vag Bld, Preg Referrals: Becky Sotelo MD [Primary Care Provider] - What to do if you have Problems For any increased pain, shortness of breath, bleeding, nausea or vomiting, chest pain, or any unexpected problems, contact your Primary Care Provider. Call [employer] To Get Approved For Registry ([phone]) or report to the closest Emergency Room. Call 911 if necessary. 10/22/182246 <Electronically signed by Linda Watkins MD> Date Linda Watkins MD Cosigner Signature (If Indicated): Date CC: Becky Sotelo MD DISCHARGE INSTRUCTION Observed: 10/22/2018 Status: F Source: [place] 10:29 PM [facility] [place] [facility] [facility] Medical Records Department [address] [place] [address] Discharge Instruction 10/22/182227 MR#: [id number] Acct: [id number] Name: BERNADETTE FAUST Rep #: [id number] : 1995 23 From: Linda Watkins MD PCP: Becky Sotelo MD Status: REG ER ED Disposition - Plan for ED Patient: Chief Complaint: Vag Bld, Preg Instructions: ED Miscarriage Poss Referrals: Becky Sotelo MD [Primary Care Provider] - Additional Instructions: Rest return for change in symptoms follow-up with your outpatient providers What to do if you have Problems For any increased pain, shortness of breath, bleeding, nausea or vomiting, chest pain, or any unexpected problems, contact your Primary Care Provider. Call Doctors Registry ([phone]) or report to the closest Emergency Room. Call 911 if necessary. 10/22/182228 <Electronically signed by Linda Watkins MD> Date Linda Watkins MD Cosigner Signature (If Indicated): Date CC: Becky Sotelo MD URINALYSIS, COMPLETE Collected: 10/22/2018 Status: F Source: [place] 9:51 PM [facility] [place] [facility] Order Comment: Order Date: 10/22/18 How was Urine Obtained? SUPPORT CLERK TO SPECIFY TYPE CODE TESTS RESULT OUT OF RANGE REFERENCE UNITS LAB L400.3000 Yellow COLOR Normal Yellow LAB L400.3050 Clear Normal CLARITY Clear LAB L400.3200 Normal mg/dl High GLUCOSE, UR 250 LAB L400.3300 Negative mg/dL Normal BILIRUBIN URINE Negative LAB L400.3400 Negative mg/dl Normal KETONE UR Negative LAB L400.3465 1.002-1.030 Normal SP.GR. DIPSTX 1.010 LAB L400.3550 5.0 - 8.0 pH UR Normal 6.0 LAB L400.3600 Negative mg/dl PROT Normal DIPSTX Negative LAB L400.3700 Normal mg/dl Normal UROBILI Normal LAB L400.3750 Negative Normal NITRITE UR Negative LAB L400.3780 Negative /ul Normal OCCULT BLOOD-UR Negative LAB L400.3800 Negative /ul LEUK Normal ESTERASE Negative LAB L400.4050 0-5 /hpf WBC 0 Normal SEEN LAB L400.4100 0-5 /hpf 0 Normal RBC-UA SEEN LAB L400.4150 5-10 /hpf SQUAM Normal EPI 0-5 SEEN LAB L400.4300 None Seen /hpf 0 Normal BACTERIA SEEN LAB L400.4350 <or=2+ /hpf 0 Normal MUCUS, URINE SEEN Performed By: #### L400.0001 #### [facility] [address] [place], [address] Observed: 10/22/2018 Status: F Source: [place] CULTURE, URINE 9:51 PM [facility] [place] Order Date: 10/22/18 Urine Culture Culture exhibits no growth. Performed By: #### M100.0650 #### [facility] [address] [place], [address] CBC W/DIFF, AUTOMATED Collected: 10/22/2018 Status: F Source: [place]AR[place] 8:45 PM [facility] [place] TYPE CODE TESTS RESULT OUT OF RANGE REFERENCE UNITS LAB L100.1000 4.4-11.0 K/mm3 Normal WBC 7.8 LAB L100.1200 4.2-5.4 M/mm3 Normal RBC 4.82 LAB L100.1300 12.0-15.0 g/dl Normal HGB 13.7 LAB L100.1400 37-47 % Normal HCT 39.8 LAB L100.1500 81-99 fL Normal MCV 82.6 LAB L100.1600 27.0-32.0 pg Normal MCH 28.4 LAB L100.1700 32-36 g/gl Normal MCHC 34.4 LAB L100.1810 11.6-14.6 % Normal RDW CV 13.2 LAB L100.1820 35.1-43.9 fl Normal RDW SD 40.2 LAB L100.1900 150-450 K/mm3 Normal PLT 175 LAB L100.2000 6.2-12.0 fl Normal MPV 8.6 LAB L100.2100 47-70 % Normal NEUT% 56.1 LAB L100.2200 19-41 % Normal LY% 33.4 LAB L100.2300 0-10 % Normal MONO% 8.6 LAB L100.2400 0-5 % Normal EO% 1.3 LAB L100.2500 0-1 % Normal BASO% 0.3 LAB L100.2550 0.0-0.9 % Normal IM GRAN % 0.300 Result Comment: IG% - Immature Granulocytes (promyelocytes, myelocytes and metamyelocytes) > 1% indicates that a LEFT SHIFT is Present. LAB L100.2620 2.0-7.7 X10 3/uL Normal Absolute Neut 4.4 LAB L100.2720 0.83-4.51 X10 3/ul Normal Absolute Lymph 2.60 Performed By: #### L100.0100 #### [facility] [address] [place], [place], [id number] HCG TITER QUANT., Collected: 10/22/2018 Status: F Source: DEXTER SERUM 8:45 PM [facility] [place] TYPE CODE TESTS RESULT OUT OF RANGE REFERENCE UNITS LAB L700.8000 <9 non-preg mIU/mL High HCG 89205 QUANT. Performed By: #### L700.8000 #### [facility] [address] [place], [address] TRANSVAGINAL W/PREG US Observed: 10/22/2018 Status: F Source: TARUN 8:09 PM [facility] [place] [facility] Imaging Services [address] [place] [address] Transvaginal w/Preg US MR#: [id number] Acct: [id number] Name: BERNADETTE FAUST Rep #: [id number] : 1995 F 23 From: Bell De La Torre MD PCP: Ashleigh MALIK,Becky Status: REG ER Study: Transvaginal w/Preg US Date of Exam: 10/22/18 Exam# [id number] Ordering Dr: Linda Watkins MD STUDY: FIRST TRIMESTER OBSTETRICAL ULTRASOUND REASON FOR EXAM: Female, 23 years old. Cramping and bleeding. TECHNIQUE: Transvaginal. TECHNICAL QUALITY: Adequate. PRIOR ULTRASOUND: 09/14/2018. FINDINGS: Gravid uterus measures 9.8 x 6.6 x 9.1 cm. There is a single live intrauterine gestation. Cardiac activity is documented, with heart rate of 174. [place]-rump length measures 3.98 cm corresponding to estimated gestational age of 11 weeks 0 days. Estimated date of delivery is 05/14/2019. Normal yolk sac is demonstrated. Cervix is closed. There is a small subchorionic bleed measuring 1.2 x 0.6 cm. The right ovary is normal in size and echogenicity, measuring 2.3 x 1.5 x 1.9 cm. There is no mass or dominant cyst. Venous flow is documented. The left ovary is normal in size and echogenicity, measuring 3.3 x 1.6 x 2.3 cm. There is no mass or dominant cyst. Venous flow is documented. There is no free fluid in the cul-de-sac. US/Transvaginal w/Preg US IMPRESSION: Single live intrauterine gestation with EGA of 11 weeks 0 days. Electronically Signed: Bell De La Torre MD at 22:12 EST Tel , Service support , CC: MD Estevan Watkins; Becky Sotelo MD [employer] Supervisor: Signed TOXICOLOGY SCREEN,UR Collected: 10/15/2018 Status: F Source: [place] 2:40 PM [facility] REPOSITORY TYPE CODE TESTS RESULT OUT OF REFERENCE UNITS RANGE LAB UPCP2 Negative Negative Phencyclidin e, Urine Result Comment: Cutoff threshold at 25 ng/mL. LAB UBENZ2 Negative Benzodiazepines, Ur Negative Result Comment: Cutoff threshold at 200 ng/mL. LAB UCOC2 Negative Cocaine, Negative Urine Result Comment: Cutoff threshold at 300 ng/mL. LAB UAMPH2 Negative Amphetamines, Urine Negative Result Comment: Cutoff threshold at 1000 ng/mL. LAB UTHC2 Negative Cannabinoids, Urine Negative Result Comment: Cutoff threshold at 50 ng/mL. LAB UOPI2 Negative Opiates, Negative Urine Result Comment: Cutoff threshold at 300 ng/mL. LAB UBARB2 Negative Barbiturates, Urine Negative Result Comment: Cutoff threshold at 200 ng/mL. LAB UETOH <11 mg/dL <11 Ethanol, Urine LAB UOXYC Negative Oxycodone, Negative Urine Result Comment: Cutoff threshold at 100 ng/mL. Comment: Immunoassay screen only. Cross reactivity with other substances can occur with immunoassay screening. Detection of any drug(s) in this urine toxicology panel is presumptive only. These tests are for med ical purposes only and should not be used for compliance monitoring, legal, or forensic use. Samples should be within normal physiological conditions (e.g. pH). This assay does not include adulteration/specimen validity testing. In clinical settings, confirmatory testing is at the practitioner's discretion [1]. If clinically indicated, confirmation by high specificity, quantitative methodology, which includes adulteration/spec imen validity testing, may be requested on the same specimen through Client Services ([phone]) if contacted within 48 hours of initial testing. [1]Substance Abuse and Mental Health Services Administration (2012). Clinical Drug Testing in Primary Care Technical Assistance Publication Series 32. Department of Health and Human Services, [place], p.10. These tests were developed and their performance characteristics determined by [facility]'s [facility] ([facility]). They have not been cleared or a pproved by the FDA. [facility] is regulated under CLIA as qualified to perform high complexity testing. These tests are used for clinical purposes. They should not be regarded as investigational or for research. Performed By: #### UTOX2 #### [place] [address] GC/CHLAMYDIA AMPLIF Collected: 10/15/2018 Status: F Source: [place] 2:40 PM [facility] REPOSITORY TYPE CODE TESTS RESULT OUT OF REFERENCE UNITS RANGE LAB GCCTSR GC/Chlam Amp Cervix Source LAB GCAMPL GC Negative Amplification for Neisseria gonorrhoeae by amplification. LAB CLAMPL Chlamydia Negative Amplif for Chlamydia trachomatis by amplification. Performed By: #### GCCT #### [place] [address] Observed: 10/15/2018 Status: F Source: [place] URINE CULTURE 2:40 PM [facility] REPOSITORY Sp. Request/Comment: - Specimen received in preservative Culture Result - 10,000 - <50,000 CFU/ml Normal urogenital tasha Performed By: #### URCUL #### [place] [id number] PROGRESS Observed: 10/15/2018 Status: COMPLETED Source: [place] 1:31 PM [facility] REPOSITORY HNO ID: [id number] Author: Ana María Chamorro Service: (none) Author Type: Physician Type: Progress Notes Filed: 10/15/2018 6:02 PM Note Text: INITIAL OB ASSESSMENT OB Provider: Annamaria aL MA HPI: Bernadette Faust is a 23 year old female here to establish Obstetrical Care. Patient's last menstrual period was 08/01/2018 (within days). from OB Dating Form. Complaints: +Nausea without vomiting. Has tried Zofran, Phenergan prn without relief. +Migraine today. Takes Fioricet AND gabapentin prn for migraines. +LLQ pain. +Left breast pain, she notes a mass on outer left breast, noticed it a few months ago, becoming larger in size and more painful per her report was unplanned but accepted. Obstetric History T1 L1 SAB0 TAB0 Ectopic0 Multiple0 Live Births1 Prior : never History of 4th degree laceration: No Patient's Risk Screening for delivery: History of abnormal pap: No - Pap smear normal 2015 Prior treatment for cervical dysplasia: none. 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 Grandpa is latter-day Would refuse blood transfusion if medically necessary: No BMI 27.29 kg/(m2) Patient BMI over 30? No Marital Status: Committed relationship Partner: Name: Raghu Age: 51 Occupation: [employer] Gender: male History of STDs: None PAST MEDICAL HISTORY Diagnosis Date - Acne - Bipolar affective disorder (HCC) 10/01/2018 - Breast cancer (HCC) - Chronic appendicitis 2005 S/P lap appendectomy. - Family history of defects 05/27/2013 05/27/2013 Father of the baby was born with a hole in his heart. No surgical correction needed. Father the baby's niece born with spina bifida. Patient's first cousin diagnosed with Asperger's Syndrome. TKRN - FRACTURE 2004 FOOT - Gestational diabetes 10/31/2013 - Migraine - Stroke (HCC) - Type 2 diabetes mellitus (HCC) - Unspecified asthma(493.90) EXERCISE INDUCED PAST SURGICAL HISTORY Procedure Laterality Date - APPENDECTOMY summer 2005 - BREAST LUMPECTOMY HX - DANDC AFTER DELIVERY 01/03/14 3 days PP, delayed PP hemorrhage - EXCISION OF LINGUAL TONSIL 06/01 - PAST SURGICAL HISTORY OF left knee surgery Current Outpatient Prescriptions on File Prior to Visit: acetaminophen (TYLENOL) 500 mg tablet Take 500 mg by mouth. acetaminophen 325 mg-caffeine 40 mg-butalbital 50 mg (FIORICET) per tablet Take by mouth. albuterol (PROVENTIL) 2.5 mg /3 mL (0.083 %) nebulizer solution albuterol HFA (VENTOLIN HFA) 90 mcg/actuation inhaler Inhale 2 Puffs as instructed every 4 hours as needed for Wheezing/Shortness of Breath. ALPRAZolam (XANAX) 0.5 mg tablet Take 1 po TID and 2 po qhs amphetamine-dextroamphetamine XR (ADDERALL XR) 20 mg 24 hr capsule Take 1 capsule by mouth once daily for 30 days.Earliest Fill Date: 10/01/18 aspirin-calcium carbonate 81 mg-300 mg calcium(777 mg) tab Take 81 mg by mouth. blood sugar diagnostic (BLOOD GLUCOSE TEST) test strip Test blood sugar(s) 3 times daily. Dx: Type 2 DM - Controlled E11.9 Insulin: No. Elevated sugars and fluctuating sugars. (Patient not taking: Reported on 10/11/2018 ) buPROPion SR (ZYBAN SR; WELLBUTRIN SR) 150 mg 12 hr tablet Take 1 tablet by mouth twice daily. cetirizine (ZYRTEC) 10 mg tablet Take 10 mg by mouth. cyclobenzaprine (FLEXERIL) 10 mg tablet Take 10 mg by mouth. EPINEPHrine (EPIPEN) 0.3 mg/0.3 mL auto-injector Use as directed prn allergic reaction gabapentin (NEURONTIN) 800 mg tablet Take 800 mg by mouth. takes a sneeded hydrOXYzine pamoate (VISTARIL) 25 mg capsule Take 1 capsule by mouth three times daily as needed for Anxiety. lamoTRIgine (LAMICTAL) 100 mg tablet Take 1 tablet by mouth once daily. meclizine (ANTIVERT) 25 mg tab Take 1 tablet by mouth every 6 hours as needed (dizziness). metFORMIN (GLUCOPHAGE) 500 mg tablet Take 1 tablet by mouth twice daily with meals. . (Patient not taking: Reported on 06/05/2018 ) mometasone (ASMANEX) 220 mcg (60 doses) aepb Inhale as instructed. naproxen (NAPROSYN) 500 mg tablet Take 1 tablet by mouth twice daily with meals. ondansetron orally disintegrating (ZOFRAN ODT) 4 mg disintegrating tablet Amoufsmm-Bf-Kkg-Fe-FA ( VITAMIN) tab Take 1 tablet by mouth. promethazine (PHENERGAN) 25 mg tablet Take 1 tablet by mouth every 6 hours as needed. SUMAtriptan (IMITREX) 50 mg tablet Take 50 mg by mouth. topiramate (TOPAMAX) 25 mg tablet triamcinolone acetonide (NASACORT AQ) 55 mcg nasal inhaler Use in the nose. No current facility-administered medications on file prior to visit. Review of Systems: GENERAL: Negative for: Fever or Chills HEENT: +HERNADEZ NECK: Negative for: Swelling, Pain, Stiffness RESPIRATORY: Negative for: Shortness of breath GASTROINTESTINAL: Negative for: Heartburn, Constipation, Diarrhea, Vomiting MUSCULOSKELETAL: Negative for: Muscle or joint pain, stiffness, Joint swelling NEUROLOGIC/PSYCHIATRIC: +Bipolar disorder and anxiety SKIN: ?Lupus per patient GENITOURINARY: Negative for: vaginal itching, vaginal discharge, hematuria PHYSICAL EXAM: BP 120/82 Wt 164 lb (74.4kg) LMP 08/01/2018 GENERAL: pleasant female in no apparent distress DERMATOLOGY: Normal and without lesions NECK: full range of motion CHEST: Normal inspiratory effort BREAST: soft, non-tender, symmetric, no dominant mass, normal nipple-areolar complex, no lymphadenopathy and no nipple discharge ABDOMEN: soft, non-tender and no masses NEURO: exam grossly non-focal PELVIS: External genitalia normal without lesions. Perineal body intact. No vaginal or cervical lesions. Cervix closed. Uterus 9 week size. No adnexal masses or tenderness. Clinical Pelvimetry: Pelvimetry clinically assessed as adequate Limited OB ultrasound exam: single intrauterine and positive cardiac activity ASSESSMENT: 23 year old at 9 wks gestational age PLAN: 1) Patient oriented to practice. Discussed nutrition, folic acid supplementation, dietary guidelines, exercise, smoking, alcohol, caffeine, and drug use. Discussed routine OB labs including STD/HIV. Discussed aneuploidy screening options including serum screening and nuchal translucency. Patient desires NT. CF carrier screening discussed and accepted. See problem list for details of today's visit. Problem List Noted Noted By Resolved Resolved By Breast pain, left 10/15/2018 Ana María Chamorro No Overview Signed 10/15/2018 5:44 PM by Ana María Chamorro 10/15/2018 Pt also noted left breast mass, not palpable on exam. Imaging ordered at [facility]. SW Positive BARTOLO (antinuclear antibody) 10/15/2018 Ana María Chamorro No Overview Addendum 10/15/2018 5:54 PM by Ana María Chamorro 10/15/2018 Had biopsy with derm on 06/05/18 - keloid. Derm had ordered BARTOLO that was positive. Patient did not show for her appointment with rheumatology. Referral placed at [facility]. Supervision of high risk in first trimester 10/15/2018 Ana María Chamorro No Overview Signed 10/15/2018 5:55 PM by Ana María Chamorro 10/15/[address] Frias this week for consultation. Support system deficit 10/11/2018 Carina Garduno RN No Overview Signed 10/11/2018 6:03 PM by Carina Garduno RN 10/11/2018Patient states FOB is aware she is but not involved. She states It's complicated and doesn't expand any more on thoughts.TKRN History of loss in prior , currently , first trimester 10/11/2018 Carina Garduno RN No Overview Addendum 10/15/2018 5:48 PM by Ana María Chamorro 10/15/18 Records not received from [place]. Will sign records release at [facility]. She states she had bleeding and went into labor? Consider cervical length screening. She then had a term after IOL for oligo, was not on IM progesterone. 10/11/2018 Patient is a poor historian. She states she had a previous loss at 20 weeks delivered at [facility] in [place]. States she knows it was a boy but no burial took place. States she just started bleeding. Patient signed a release form to obtain records from [facility] in [place].TKRN History of bipolar disorder 10/11/2018 Carina Garduno RN No Overview Addendum 10/15/2018 5:51 PM by Ana María Chamorro 10/15/2018 Referred to psych on 10/01 by FP. Pt not sure of appointment at [facility]. Referral placed again at [facility] and assist with scheduling. Reviewed medications: discussed weaning off Xanax and Adderall. Pt had stopped Topamax prior to . Remaining medications Category C, discussed r/b/a with pt. 10/11/2018 Pt has a history of bipolar depression diagnosed 2 years ago and treated by Dr Morales at [facility]. She is weaning off Xanax as directed by Dr Morales. Patient states she has discussed safety of psychiatric medication with Dr Morales. Discussed increased risks of depression during and and importance of reporting the development or worsening of symptoms should they occur. TKRN History of stroke 10/11/2018 Carina Garduno RN No Overview Addendum 10/15/2018 5:52 PM by Ana María Chamorro 10/15/2018 Records not received. Will sign records release again at [facility]. She denies having an appointment with neuro on 10/18/18. Discussed importance of following up with neuro sandy for recommendations. 10/11/2018Patient states she suffered a stroke 12/2016. She was hospitalized at [facility]. Patient signed a release of records form to obtain records from [facility]. Patient states she sees neurologist Dr Rajat Swan from [facility]. Her next appointment with him is 10/18/2018.She reports she last saw him 07/2018. She will discuss safety of medication he prescribes in .I have asked her to have him send us a note regarding any concerns for her care during . TKRN TKRN History of gestational diabetes in prior , currently 10/11/2018 Carina Garduno RN No Overview Addendum 10/15/2018 5:37 PM by Ana María Chamorro 10/11/2018History of gestational diabetes with previous . Reports she has not taken Metformin for past 2 years.Last HGB A1c 06/05/2018 was 6.5. Will plan on testing @NO. Patient states her last child was 11# at . Baby had severe shoulder dystocia and humeral fracture. TKRN History of macrosomia in infant in prior , currently 10/11/2018 Carina Garduno RN No Overview Addendum 10/15/2018 5:45 PM by Ana María Chamorro 10/15/18 Delivery note reviewed and scanned into chart. Did have shoulder dystocia with provider fracturing the infant's left clavicle to deliver the posterior arm after trying multiple maneuvers. Will get 3rd tri growth US. Pt desires PTLCS. 10/11/2018Patient states her last child was 11# at . Baby had severe shoulder dystocia and humeral fracture.TKRN History of shoulder dystocia with result of fractured humerus of in prior , currently in first trimester 10/11/2018 Carina Garduno RN No Overview Signed 10/11/2018 6:12 PM by Carina Garduno RN . History of hemorrhage, currently 10/11/2018 Carina Garduno RN No Overview Signed 10/11/2018 6:14 PM by Carina Garduno RN 10/11/2018 History of hemorrhage day 3 PP. TKRN Patient request for diagnostic testing 10/11/2018 Carina Garduno RN No Overview Signed 10/11/2018 6:14 PM by Carina Garduno RN 10/11/2018Patient desires nuchal ultrasound and genetic carrier screening testing. TKRN Bipolar affective disorder (HCC) 10/01/2018 Valentine Farah No Type 2 diabetes mellitus without complication (HCC) 11/16/2016 Becky Sotelo No Overview Signed 10/15/2018 5:37 PM by Ana María Chamorro 10/15/2018 Hx of type 2 DM noted on 10/01/18. Hgb a1c 7.1 in 2015, 6.5 on 06/05/2018. Hgb a1c, Cr, p/c ratio, TSH at [facility]. To start BG log. Baby ASA at 12 wks. SW Anxiety 11/16/2016 Becky Sotelo No Intermittent asthma with allergic rhinitis 05/27/2013 Carina Garduno RN No Overview Addendum 09/13/2018 3:12 PM by Lino Huber 05/27/2013 Patient has a history of asthma. She uses an albuterol inhaler when necessary.TKRN Overview: Overview: 05/27/2013 Patient has a history of asthma. She uses an albuterol inhaler when necessary.TKRN Follow up this week to see Dr. Frias Follow up in 1 week to review BG log Ana María Chamorro DO EMERGENCY DEPARTMENT Observed: 10/12/2018 Status: F Source: DEXTER SUMMARY 7:15 AM [facility] Medical Records Department [address] [place] [address] Emergency Department Summary 10/12/18 0337 MR#: [id number] Acct: [id number] Name: BERNADETTE FAUST Rep #: [id number] : 1995 23 From: Dewey Blanchard MD PCP: Becky Sotleo MD Status: DEP ER - ER Visit Summary Date of Service: 10/12/18 Chief Complaint: [] Nausea and vomiting History of Present Illness: The patient is a 23 F stated she has been having nausea and vomiting for the last 2-3 days. She had 10 episodes yesterday of 5 today. This is her third . She is 8 weeks 5 days by dates. She is seeing Dr. Huber with OB. She has Zofran and Dramamine at home for nausea as she gets frequent migraines but it does not seem to be helping. Comes in for further symptomatic treatment she does not want to get dehydrated Physical Examination: Vital signs reviewed General: Well-nourished well-developed Head: Normocephalic atraumatic Eyes: Pupils equal round and reactive to light extraocular movements intact ENT: TMs clear no hemotympanum no trauma Neck: Nontender full range of motion Cardiovascular: Regular rate rhythm no murmurs normal S1-S2 Respiratory: No distress clear to auscultation bilaterally chest nontender Abdomen: Soft nontender nondistended normal bowel sounds no masses Back: Nontender no CVA tenderness Extremities: Nontender active range of motion 4 extremities no trauma Skin: Normal color no trauma Neuro alert oriented cranial nerves II through XII intact normal strength sensation reflexes Test Results: [] Emergency Department Course and Treatment: [] Resting comfortably. Given IV fluids and she requested Compazine. Given Compazine. Better after treatment. Resting comfortably. Will be discharged with a short course of Phenergan. I do not feel she needs further lab work. She appears nontoxic. 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 Treatment Plan: [] Disposition: [] Impression: [] Nausea And vomiting in This note was generated with [employer] dictation software. It may contain incorrect words, spelling, and punctuation that were not noted in review of the chart prior to signing ED Disposition - Plan for ED Patient: Chief Complaint: Nausea/Vomiting Referrals: Becky Sotelo MD [Primary Care Provider] - What to do if you have Problems For any increased pain, shortness of breath, bleeding, nausea or vomiting, chest pain, or any unexpected problems, contact your Primary Care Provider. Call [employer] To Get Approved For Registry ([phone]) or report to the closest Emergency Room. Call 911 if necessary. 10/12/18 0715 <Electronically signed by Dewey Blanchard MD> Date Dewey Blanchard MD Cosigner Signature (If Indicated): Date CC: Becky Sotelo MD; OUT OF TOWN DOCTOR DISCHARGE INSTRUCTION Observed: 10/12/2018 Status: F Source: [place] 7:15 AM [facility] [place] [facility] Medical Records Department [address] [place] [address] Discharge Instruction 10/12/18 0420 MR#: [id number] Acct: [id number] Name: BERNADETTE FAUST Rep #: [id number] : 1995 23 From: Dewey Blanchard MD PCP: Becky Sotelo MD Status: DEP ER ED Disposition - Plan for ED Patient: Disposition: Home or Assisted Living Chief Complaint: Nausea/Vomiting Instructions: ED Preg Morning Sickness Prescriptions: proMETHazine tablet [Phenergan] 25 mg PO Q6H PRN PRN #10 tab PRN Reason: Nausea Ondansetron [Zofran Odt] 8 mg PO Q8H PRN PRN #10 tab PRN Reason: Nausea Referrals: Becky Sotelo MD [Primary Care Provider] - What to do if you have Problems For any increased pain, shortness of breath, bleeding, nausea or vomiting, chest pain, or any unexpected problems, contact your Primary Care Provider. Call [facility] Registry ([phone]) or report to the closest Emergency Room. Call 911 if necessary. 10/12/18 0715 <Electronically signed by eDwey Blanchard MD> Date Dewey Blanchard MD Cosigner Signature (If Indicated): Date CC: Becky Sotelo MD; OUT OF TOWN DOCTOR PROGRESS Observed: 10/11/2018 Status: COMPLETED Source: [place] 12:28 PM [facility] REPOSITORY HNO ID: [id number] Author: Carina Garduno RN Service: (none) Author Type: (none) Type: Progress Notes Filed: 10/11/2018 6:16 PM Note Text: #: 1, Date: 2012, Sex: Male, Weight: None, GA: 20w0d, Delivery: None, Apgar1: None, Apgar5: None, Living: None, Comments: No prior care. Unaware she was until 14 weeks #: 2, Date: 12/31/13, Sex: Female, Weight: 11 lb (4.99 kg), GA: 38w0d, Delivery: Vaginal, Spontaneous Delivery, Apgar1: 8, Apgar5: 9, Living: Living, Comments: humeral fracture, severe shoulder dystocia, iol severe oligo, 2nd degree laceration, EBL 300cc #: 3, Date: None, Sex: None, Weight: None, GA: None, Delivery: None, Apgar1: None, Apgar5: None, Living: None, Comments: None CNNURSE Observed: 10/11/2018 Status: COMPLETED Source: [place] 10:30 AM [facility] REPOSITORY Nurse Visit (WOOB) BERNADETTE FAUST ([id number]) 1995 F Date Time Provider Department 10/11/18 10:30 AM NURSE PNOB [facility] WOOB During your visit today, we recorded the following information about you: Last Period 08/01/18 Carina Garduno RN 10/11/2018 11:16 AM Signed SEQUENTIAL SCREENINGS The [facility] offers sequential screenings for women who are interested in screenings for chromosomal abnormalities and certain defects during a . The sequential screen combines ultrasound and blood tests to determine the risk of chromosomal abnormalities, including Down's Syndrome (Trisomy 21) and Trisomy 18, as well as open neural tube defects including spina bifida. Ultrasound examination is performed between 11 weeks and 13 weeks gestational age. Blood tests are drawn after the ultrasound and again later in the between 15 and 21 weeks gestational age. Please let your physician know if you are interested in this testing. It will require an appointment with our dialysis patient care technician. This is not an ultrasound performed by a physician in our office during a routine visit. SIGNS AND SYMPTOMS OF LABOR 1. Contractions every 10 minutes or more often 2. Clear, pink, or brownish fluid (water) leaking from vagina 3. Feeling that baby is pushing down, pressure 4. Low, dull backache 5. Cramps that feel like a period 6. Cramps with or without diarrhea If you notice any of the above symptoms, contact our office at [phone] and ask to speak with a nurse. After hours, you can call doctors registry at [phone] OR call [facility] at [phone] and ask to have the doctor adapted physical education specialist paged. If you consider this an emergency, dial 9-1-1 or go to your nearest emergency department. Cord-Blood Banking Up until recently, the umbilical cord--along with the blood that remained in it after a baby was born and the cord cut--was simply discarded by the hospital. Then, in the late 1980s, researchers discovered that cord blood possessed unusual properties that made it useful in the treatment of patients with some cancers and other illnesses. While the actual process of collecting cord blood is straightforward, many parents are not even aware that this option now exists, much less familiar with all the issues involved. The case for saving your baby's cord blood The blood running back and forth between your baby and the placenta is full of immature cells called stem cells. Unlike embryonic stem cells, which have the ability to develop into any type of body cell, cord-blood stem cells already are locked into a certain, vital function: making all the different components of the blood, such as platelets, white blood cells, and red blood cells-serving, in effect, like bone marrow. When transfused into a patient whose own blood cells have faulty genetic coding or have been destroyed by chemotherapy or other cancer treatments, the cord-blood cells can implant themselves in the bone marrow and generate legions of new, healthy cells. These days, cord-blood transplants most commonly are used in cancer patients when a donor can't be found for a bone-marrow transplant. The treatment is particularly effective in young patients-the [facility] Cord Blood Bank reports a 70 percent success rate in children, but only 20 to 40 percent in adults. Researchers envision improving those odds and see many future applications as well, such as curing sickle cell disease and other blood-related genetic illnesses. So there is a possibility that your child, or someone else, may need these super-healthy and versatile cells one day. The drawbacks Aside from not knowing about this medical option, the main reason most people do not save their baby's stem cells is cost. In a private blood bank, the initial costs run from $275 to $1,500. Most also charge a yearly storage fee of $50 to $95. The advantage of using a private bank is that your sample is saved for only you to use. An alternative to private banking Public cord-blood chandler are an alternative. These cost no money to use, but your sample is not specifically saved for you. Another person with a more immediate need may use it. If the time should come that you need stem cells, yours may still be available, or you may use donations from other people without charge. You also can direct your sample to go to a relative with an immediate need if the blood type matches. Anyone else needing to use stem cells from a public bank who has not been a donor must pay for it, sometimes tens of thousands of dollars. Will my family benefit from saving stem cells? Right now, situations in which stem cells would be helpful are quite rare. As mentioned earlier, stem-cell transplants are most commonly used for rare genetic conditions and for some types of cancer, including leukemia and lymphoma. And even with these present uses, many questions remain. In cancer treatment, for example, some researchers are concerned about the wisdom of transplanting back into the child the same cells that already showed a propensity to become malignant. Doctors also aren't sure if the number of cells taken at the time of would be enough to treat a full-grown 16-year-old. It is also not completely clear how active the cells would be after years of being stored. The treatment is so new and rare, we just don't have the data yet to resolve these important issues. What do the experts say? The [place] [employer] encourages philanthropic blood banking in public chandler, but only for families with a current or potential need. Blood-bank proponents encourage any kind of banking, pointing out that research is getting closer and closer to many diverse, live-saving applications. How do I decide? Each family must weigh the pros and cons for themselves. Some families say that any cost is worth their peace of mind. Others say that in the face of uncertainty about the effectiveness of the treatment, they will use their resources elsewhere. Some choose the middle ground of donating publicly, knowing that their sample might benefit another family, if not themselves. For more information, ask your doctor or nurse, and be sure to check out our article on the technical aspects of cord-blood banking. Technical Aspects of Cord-Blood Banking If you are interested in storing your baby's umbilical-cord blood because of its possible use in emerging medical treatments, you must make arrangements with a blood bank before your child is born. The collection procedure is quite simple: After delivery of the baby, the umbilical cord is clamped and cut in the usual way. The blood that remains in the umbilical-cord vessels is then collected in sterile containers. The blood may be removed from the cord with a large needle or allowed to flow freely, depending on the company's collection system. The containers may look like large test tubes or like the plastic bags used in a blood bank. It does not cause the mother or the baby any pain to collect the blood, and no blood is taken that the baby needs at the moment. The nurse, operations research group manager, or physician will then label the samples, check them over with you, and package them for a special pickup arranged with a commercial carrier. When the blood arrives at the blood-bank facility, it is processed and the parents are notified. It is then kept in an advanced storage system for years. How do I know that my sample is safe? Power outages and bankruptcies potentially could threaten any organization, but so far none have been reported. It is to be hoped that the scientists in these chandler would arrange for safe transfer to another facility if the need arose. YOU MUST MAKE ARRANGEMENTS AHEAD OF TIME! Public cord-blood chandler--DONATION: [employer] [phone] [facility]'s Placental Blood Program, [facility] Umbilical Cord Blood Bank, Private cord-blood chandler--SAVING FOR YOUR OWN USE: [employer], (I think this is the least expensive) [employer] [phone] [employer], [phone]) [employer] [place] Cord Blood [facility], [phone]-CORD Cells, [phone] [place] [facility], Cord Blood Registry, (241) [employer], An Internet search may provide you with additional listings. Carina Garduno RN 10/11/2018 6:16 PM Signed #: 1, Date: 2012, Sex: Male, Weight: None, GA: 20w0d, Delivery: None, Apgar1: None, Apgar5: None, Living: None, Comments: No prior care. Unaware she was until 14 weeks #: 2, Date: 12/31/13, Sex: Female, Weight: 11 lb (4.99 kg), GA: 38w0d, Delivery: Vaginal, Spontaneous Delivery, Apgar1: 8, Apgar5: 9, Living: Living, Comments: humeral fracture, severe shoulder dystocia, iol severe oligo, 2nd degree laceration, EBL 300cc #: 3, Date: None, Sex: None, Weight: None, GA: None, Delivery: None, Apgar1: None, Apgar5: None, Living: None, Comments: None Referring Provider: SELF [200] Allergies As of Date: 10/11/2018 Noted Allergy Reaction LATEX 06/05/2018 16 - Unknown TAPE [Other] 11/23/2005 2 - Rash VERAPAMIL 06/05/2018 10 - Anaphylaxis Date Reviewed: 10/11/2018 Reviewed by: Carina Garduno RN - Fully Assessed Reason for Visit: Care [86] Cmt: Pre-New OB Primary Visit Diagnosis:High risk , antepartum [O09.90] Other Visit Diagnoses:Support system deficit [Z65.8] History of loss in prior , currently , first trimester [O09.291] History of bipolar disorder [Z86.59] History of stroke [Z86.73] History of gestational diabetes in prior , currently [O09.299, Z86.32] History of macrosomia in in prior , currently [O09.299] History of shoulder dystocia with result of fractured humerus of in prior , currently in first trimester [O09.291] History of hemorrhage, currently [O09.299] Patient request for diagnostic testing [Z01.89] Order(s):EDMUND PT ED 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 [id number]* Take by mouth. ALBUTEROL SULFATE 2.5 MG/3 ML* ALBUTEROL SULFATE HFA 90 MCG/* Inhale 2 Puffs as instructed * ALPRAZOLAM 0.5 MG TABLET Take 1 po TID and 2 po qhs DEXTROAMPHETAMINE-AMPHETAMINE* Take 1 capsule by mouth once * BUPROPION HCL SR 150 MG TABLE* Take 1 tablet by mouth twice * CETIRIZINE 10 MG TABLET Take 10 mg by mouth. EPINEPHRINE 0.3 MG/0.3 ML INJ* Use as directed prn allergic * GABAPENTIN 800 MG TABLET Take 800 mg by mouth. takes a* LAMOTRIGINE 100 MG TABLET Take 1 tablet by mouth once d* MECLIZINE 25 MG TABLET Take 1 tablet by mouth every * MOMETASONE 220 MCG (60 DOSES)* Inhale as instructed. NAPROXEN 500 MG TABLET Take 1 tablet by mouth twice * ONDANSETRON 4 MG DISINTEGRATI* VITAMIN,CALCIUM,MINE* Take 1 tablet by mouth. PROMETHAZINE 25 MG TABLET Take 1 tablet by mouth every * SUMATRIPTAN 50 MG TABLET Take 50 mg by mouth. TRIAMCINOLONE ACETONIDE 55 MC* Use in the nose. ASPIRIN-CALCIUM CARBONATE 81 * Take 81 mg by mouth. BLOOD SUGAR DIAGNOSTIC STRIPS Test blood sugar(s) 3 times d* Patient not taking: Reported on 10/11/2018 CYCLOBENZAPRINE 10 MG TABLET Take 10 mg by mouth. HYDROXYZINE PAMOATE 25 MG CAP* Take 1 capsule by mouth three* METFORMIN 500 MG TABLET Take 1 tablet by mouth twice * Patient not taking: Reported on 06/05/2018 TOPIRAMATE 25 MG TABLET Medication notes this encounter ALPRAZOLAM 0.5 MG TABLET >> Carina Garduno RN 10/11/2018 10:49 AM >> CARINA GARDUNO RN [facility] Oct 11, 2018 10:49 AM Patient is weaning off medication Problem List As Of Date 10/11/2018 Noted Resolved Inguinal hernia with obstruction, without menti*INVALID FOR*03/18/2013 PAIN GROIN (right) [R10.9] INVALID FOR*03/18/2013 Abdominal pain, right lower quadrant [R10.31] INVALID FOR*03/18/2013 Lumbago [M54.5] INVALID FOR* Headache [R51] INVALID FOR* TMJ (temporomandibular joint syndrome) [M26.609]INVALID FOR* Intermittent asthma with allergic rhinitis [J45*INVALID FOR* More... Family history of defects [Z82.79] INVALID FOR*10/07/2015 More... More... Rubella non-immune status, antepartum [O99.89, *INVALID FOR*02/11/2014 More... Gestational diabetes [O24.419] INVALID FOR*02/11/2014 More... Supervision of other high-risk (V23.89*INVALID FOR*02/11/2014 More... Type 2 diabetes mellitus without complication (*INVALID FOR* Anxiety [F41.9] INVALID FOR* Bipolar affective disorder (HCC) [F31.9] INVALID FOR* Support system deficit [Z65.8] INVALID FOR* More... History of loss in prior , c*INVALID FOR* More... History of bipolar disorder [Z86.59] INVALID FOR* More... History of stroke [Z86.73] INVALID FOR* More... History of gestational diabetes in prior pregna*INVALID FOR* More... History of macrosomia in infant in prior pregna*INVALID FOR* More... History of shoulder dystocia with result of fra*INVALID FOR* More... History of hemorrhage, currently pre*INVALID FOR* More... Patient request for diagnostic testing [Z01.89] INVALID FOR* More... Other instructions from your clinician: SEQUENTIAL SCREENINGS The [facility] offers sequential screenings for women who are interested in screenings for chromosomal abnormalities and certain defects during a . The sequential screen combines ultrasound and blood tests to determine the risk of chromosomal abnormalities, including Down's Syndrome (Trisomy 21) and Trisomy 18, as well as open neural tube defects including spina bifida. Ultrasound examination is performed between 11 weeks and 13 weeks gestational age. Blood tests are drawn after the ultrasound and again later in the between 15 and 21 weeks gestational age. Please let your physician know if you are interested in this testing. It will require an appointment with our dialysis patient care technician. This is not an ultrasound performed by a physician in our office during a routine visit. SIGNS AND SYMPTOMS OF LABOR 1. Contractions every 10 minutes or more often 2. Clear, pink, or brownish fluid (water) leaking from vagina 3. Feeling that baby is pushing down, pressure 4. Low, dull backache 5. Cramps that feel like a period 6. Cramps with or without diarrhea If you notice any of the above symptoms, contact our office at [phone] and ask to speak with a nurse. After hours, you can call doctors registry at [phone] OR call [facility] at [phone] and ask to have the doctor adapted physical education specialist paged. If you consider this an emergency, dial 9-1-1 or go to your nearest emergency department. Cord-Blood Banking Up until recently, the umbilical cord--along with the blood that remained in it after a baby was born and the cord cut--was simply discarded by the hospital. Then, in the late 1980s, researchers discovered that cord blood possessed unusual properties that made it useful in the treatment of patients with some cancers and other illnesses. While the actual process of collecting cord blood is straightforward, many parents are not even aware that this option now exists, much less familiar with all the issues involved. The case for saving your baby's cord blood The blood running back and forth between your baby and the placenta is full of immature cells called stem cells. Unlike embryonic stem cells, which have the ability to develop into any type of body cell, cord-blood stem cells already are locked into a certain, vital function: making all the different components of the blood, such as platelets, white blood cells, and red blood cells-serving, in effect, like bone marrow. When transfused into a patient whose own blood cells have faulty genetic coding or have been destroyed by chemotherapy or other cancer treatments, the cord-blood cells can implant themselves in the bone marrow and generate legions of new, healthy cells. These days, cord-blood transplants most commonly are used in cancer patients when a donor can't be found for a bone-marrow transplant. The treatment is particularly effective in young patients- the [facility] Cord Blood [facility] reports a 70 percent success rate in children, but only 20 to 40 percent in adults. Researchers envision improving those odds and see many future applications as well, such as curing sickle cell disease and other blood-related genetic illnesses. So there is a possibility that your child, or someone else, may need these super-healthy and versatile cells one day. The drawbacks Aside from not knowing about this medical option, the main reason most people do not save their baby's stem cells is cost. In a private blood bank, the initial costs run from $275 to $1,500. Most also charge a yearly storage fee of $50 to $95. The advantage of using a private bank is that your sample is saved for only you to use. An alternative to private banking Public cord-blood chandler are an alternative. These cost no money to use, but your sample is not specifically saved for you. Another person with a more immediate need may use it. If the time should come that you need stem cells, yours may still be available, or you may use donations from other people without charge. You also can direct your sample to go to a relative with an immediate need if the blood type matches. Anyone else needing to use stem cells from a public bank who has not been a donor must pay for it, sometimes tens of thousands of dollars. Will my family benefit from saving stem cells? Right now, situations in which stem cells would be helpful are quite rare. As mentioned earlier, stem-cell transplants are most commonly used for rare genetic conditions and for some types of cancer, including leukemia and lymphoma. And even with these present uses, many questions remain. In cancer treatment, for example, some researchers are concerned about the wisdom of transplanting back into the child the same cells that already showed a propensity to become malignant. Doctors also aren't sure if the number of cells taken at the time of would be enough to treat a full-grown 16-year-old. It is also not completely clear how active the cells would be after years of being stored. The treatment is so new and rare, we just don't have the data yet to resolve these important issues. What do the experts say? The [place] [employer] encourages philanthropic blood banking in public chandler, but only for families with a current or potential need. Blood-bank proponents encourage any kind of banking, pointing out that research is getting closer and closer to many diverse, live-saving applications. How do I decide? Each family must weigh the pros and cons for themselves. Some families say that any cost is worth their peace of mind. Others say that in the face of uncertainty about the effectiveness of the treatment, they will use their resources elsewhere. Some choose the middle ground of donating publicly, knowing that their sample might benefit another family, if not themselves. For more information, ask your doctor or nurse, and be sure to check out our article on the technical aspects of cord-blood banking. Technical Aspects of Cord-Blood Banking If you are interested in storing your baby's umbilical- cord blood because of its possible use in emerging medical treatments, you must make arrangements with a blood bank before your child is born. The collection procedure is quite simple: After delivery of the baby, the umbilical cord is clamped and cut in the usual way. The blood that remains in the umbilical-cord vessels is then collected in sterile containers. The blood may be removed from the cord with a large needle or allowed to flow freely, depending on the company's collection system. The containers may look like large test tubes or like the plastic bags used in a blood bank. It does not cause the mother or the baby any pain to collect the blood, and no blood is taken that the baby needs at the moment. The nurse, operations research group manager, or physician will then label the samples, check them over with you, and package them for a special pickup arranged with a commercial carrier. When the blood arrives at the blood- bank facility, it is processed and the parents are notified. It is then kept in an advanced storage system for years. How do I know that my sample is safe? Power outages and bankruptcies potentially could threaten any organization, but so far none have been reported. It is to be hoped that the scientists in these chandler would arrange for safe transfer to another facility if the need arose. YOU MUST MAKE ARRANGEMENTS AHEAD OF TIME! Public cord-blood chandler--DONATION: [employer] [phone] [facility]'s Placental Blood Program, [facility] Umbilical Cord Blood Bank, Private cord-blood chandler--SAVING FOR YOUR OWN USE: [employer], (I think this is the least expensive) [employer] [phone] [employer], [phone]) [employer] [place] Cord Blood [facility], [phone]-CORD Cells, [phone] [place] [facility], Cord Blood Registry, (476) [employer]OOD [employer], An Internet search may provide you with additional listings. Disposition: Return in about 4 days (around 10/15/2018) for B with Dr Chamorro. Follow-up and Disposition History Recorded Encounter Status:Closed by CARINA GARDUNO RN on 10/11/18 EMERGENCY DEPARTMENT Observed: 10/11/2018 Status: F Source: DEXTER SUMMARY 1:05 AM [facility] [place] [facility] Medical Records Department [address] [place] [address] Emergency Department Summary 10/06/18 1224 MR#: [id number] Acct: [id number] Name: BERNADETTE FAUST Rep #: [id number] : 1995 23 From: Fernandez Prasad MD PCP: OUT OF TOWN DOCTOR Status: DEP ER - ER Visit Summary Date of Service: 10/06/18 Chief Complaint: Headache History of Present Illness: The patient is a [address] Toño Gleason [facility]. She is a at 8 weeks by ultrasound 4 days ago. She denies any vaginal bleeding or discharge. She reports that she has a headache that began yesterday and is gradually gotten worse. Is a throbbing sensation a halo. 10 at 10 worsening a 10 currently. Is worsened by vomiting. She relieved by nothing. She reports she is vomited 4 times. No blood or emesis. She complains of photophobia and blurred vision. She has had similar headaches multiple times in the past. Last one being approximate 4 days ago. She denies any fever, chills, or other complaints. Physical Examination: Vitals: Stable. Afebrile. General: Well-nourished and well-developed. Head: Normocephalic atraumatic. Neck: Supple, no lymphadenopathy. No JVD. Nontender. Cardiovascular: Regular rate and rhythm. No murmurs. Respiratory: No respiratory distress. Clear to auscultation bilaterally. Abdominal: Soft, nontender, nondistended, normal bowel sounds. No guarding, rebound, or peritoneal signs. Back: Nontender. Extremities: Nontender, no edema. Skin: Normal color, no rash. Neurologic: Alert and oriented 3. Cranial nerves II through XII are intact. Normal strength and sensation. Psych: Normal affect. Emergency Department Course and Treatment: Patient had IV placed. She was given Compazine and Benadryl IV. She was given Tylenol p.o. She is resting comfortably. Treatment Plan: Patient will be discharged symptomatic care. Instructed to follow-up with Dr. Toño Gleason in 1-2 days not improving. Return to the emergency department for any worsening symptoms. Disposition: To home in improved and stable condition. Impression: 1. Migraine headache. 2. First trimester . This note was generated with [employer] dictation software. It may contain incorrect words, spelling, and punctuation that were not noted in review of the chart prior to signing ED Disposition - Plan for ED Patient: Chief Complaint: Headache Instructions: ED Headache Migraine Referrals: Becky Sotelo MD [STAFF PHYSICIAN] - 1-2 Days if not improving What to do if you have Problems For any increased pain, shortness of breath, bleeding, nausea or vomiting, chest pain, or any unexpected problems, contact your Primary Care Provider. Call [employer] To Get Approved For Registry ([phone]) or report to the closest Emergency Room. Call 911 if necessary. 10/11/18 0105 <Electronically signed by Fernandez Prasad MD> Date Fernandez Tapia Signature (If Indicated): Date CC: OUT OF TOWN DOCTOR PROGRESS Observed: 10/02/2018 Status: COMPLETED Source: [place] 4:07 PM [facility] REPOSITORY HNO ID: [id number] Author: Maureen Frias Service: (none) Author Type: Physician Type: Progress Notes Filed: 10/02/2018 4:08 PM Note Text: A single intrauterine gestational sac is noted with a regular outline. No decidual hemorrhage is noted. The yolk sac appears normal. An embryo is visualized with a heart rate within normal range Estimated Date of Delivery: 05/18/19 EGA = 7w3d The CRL corresponds to the gestational age. RECOMMENDATIONS - Ultrasound examination at 11 to 13 weeks to measure the nuchal translucency (NT) and to child welfare counselor for first trimester screening if genetic testing is desired. PROGRESS Observed: 10/01/2018 Status: COMPLETED Source: [place] 11:08 AM [facility] REPOSITORY HNO ID: [id number] Author: Valentine Farah Service: (none) Author Type: Physician Regional Guide Type: Progress Notes Filed: 10/01/2018 12:04 PM Note Text: Chief Complaint Patient presents with: Recheck HPI Bernadette Faust is a 23 year old female who presents here today for Chronic Medical Conditions.. Patient with hx of ADHD, axiety and Biopolar disorder, and DM2 Presents today for prescription refills. States that her psychiatrist no longer accepts her insurance and she was unable to get an appointment with them. She is wanting to try to get in with psych within the [facility] system. Would like a short term supply of medication until she can be seen by psychiatrist. No specific concerns today. Last hgb a1c was 6.5. She has not taken metformin for a long time due to low BS. Past medical history, appointments, medications, allergies reviewed. Previous Medical History PAST MEDICAL HISTORY Diagnosis Date - Acne - Breast cancer (HCC) - Chronic appendicitis 2005 S/P lap appendectomy. - Family history of defects 05/27/2013 05/27/2013 Father of the baby was born with a hole in his heart. No surgical correction needed. Father the baby's niece born with spina bifida. Patient's first cousin diagnosed with Asperger's Syndrome. TKRN - FRACTURE 2004 FOOT - Gestational diabetes 10/31/2013 - Stroke (HCC) - Unspecified asthma(493.90) EXERCISE INDUCED Previous Surgical History PAST SURGICAL HISTORY Procedure Laterality Date - APPENDECTOMY summer 2005 - BREAST LUMPECTOMY HX - DANDC AFTER DELIVERY 01/03/14 3 days PP, delayed PP hemorrhage - EXCISION OF LINGUAL TONSIL 06/01 - PAST SURGICAL HISTORY OF left knee surgery Family History FAMILY HISTORY Problem Relation Age of Onset - Allergies Father - Skin Cancer Father - Stroke Father - Skin Cancer Brother - Cancer Maternal Grandmother OVARIAN, great grandmother also - Prostate Cancer Maternal Grandfather LUNG AND PROSTRATE - Emphysema Maternal Grandfather - COPD Maternal Grandfather - other (cholecystitis) Sister - Diabetes Paternal Uncle - Diabetes Paternal Aunt Patient Allergies ALLERGIES Allergen Reactions - Latex Unknown - Tape [Other] Rash - Verapamil Anaphylaxis Current Medications Current Outpatient Prescriptions on File Prior to Visit: acetaminophen 325 mg-caffeine 40 mg-butalbital 50 mg (FIORICET) per tablet Take by mouth. albuterol (PROVENTIL) 2.5 mg /3 mL (0.083 %) nebulizer solution aspirin-calcium carbonate 81 mg-300 mg calcium(777 mg) tab Take 81 mg by mouth. cetirizine (ZYRTEC) 10 mg tablet Take 10 mg by mouth. lamoTRIgine (LAMICTAL) 100 mg tablet mometasone (ASMANEX) 220 mcg (60 doses) aepb Inhale as instructed. ondansetron orally disintegrating (ZOFRAN ODT) 4 mg disintegrating tablet SUMAtriptan (IMITREX) 50 mg tablet Take 50 mg by mouth. triamcinolone acetonide (NASACORT AQ) 55 mcg nasal inhaler Use in the nose. gabapentin (NEURONTIN) 800 mg tablet Take 800 mg by mouth three times daily. amphetamine-dextroamphetamine XR (ADDERALL XR) 20 mg 24 hr capsule ALPRAZolam (XANAX) 0.5 mg tablet promethazine (PHENERGAN) 25 mg tablet Take 1 tablet by mouth every 6 hours as needed. meclizine (ANTIVERT) 25 mg tab Take 1 tablet by mouth every 6 hours as needed (dizziness). EPINEPHrine (EPIPEN) 0.3 mg/0.3 mL auto-injector Use as directed prn allergic reaction buPROPion SR (ZYBAN SR; WELLBUTRIN SR) 150 mg 12 hr tablet Take 1 tablet by mouth twice daily. blood sugar diagnostic (BLOOD GLUCOSE TEST) test strip Test blood sugar(s) 3 times daily. Dx: Type 2 DM - Controlled E11.9 Insulin: No. Elevated sugars and fluctuating sugars. albuterol HFA (VENTOLIN HFA) 90 mcg/actuation inhaler Inhale 2 Puffs as instructed every 4 hours as needed for Wheezing/Shortness of Breath. naproxen (NAPROSYN) 500 mg tablet Take 1 tablet by mouth twice daily with meals. acetaminophen (TYLENOL) 500 mg tablet Take 500 mg by mouth. cyclobenzaprine (FLEXERIL) 10 mg tablet Take 10 mg by mouth. topiramate (TOPAMAX) 25 mg tablet hydrOXYzine pamoate (VISTARIL) 25 mg capsule Take 1 capsule by mouth three times daily as needed for Anxiety. metFORMIN (GLUCOPHAGE) 500 mg tablet Take 1 tablet by mouth twice daily with meals. . (Patient not taking: Reported on 06/05/2018 ) No current facility-administered medications on file prior to visit. Social History Social History Marital status: Spouse name: DEVORA Years of education: 14 Number of children: Social History Main Topics Smoking status: Never Smoker Smokeless tobacco: Never Used Alcohol use: Yes Comment: occasionaly, NOT WHILE Drug use: No Sexual activity: Yes Partners with: Male Other Topics Concern No BLOOD TRANSFUSIONS No CAFFEINE No OCCUPATIONAL EXPOSURE No HOBBY HAZARD No SLEEP CONCERN No STRESS CONCERN No WEIGHT CONCERN No DIET No BACK CARE No EXERCISE Yes BIKE HELMET No SEAT BELT Yes SELF EXAMS No Social History Narrative Social History: , Estranged from her . Has a daughter born 2013. Patient denies tobacco use, EtOH use or experimentation with illegal drugs. Review of Symptoms REVIEW OF SYSTEMS GENERAL: No weight loss, malaise or fevers NECK: Negative for lumps, goiter, pain and significant neck swelling RESPIRATORY: Negative for cough, hemoptysis, wheezing, COPD, dyspnea or shortness of breath CARDIOVASCULAR: Negative for chest pain, leg swelling, CHF or palpitations NEURO: No history of headaches, syncope, paralysis, seizures or tremors Psych: See HPI. EXAM: BP 118/78 (BP Site: Left Arm, BP Position: Sitting, BP Cuff Size: Regular Adult) Pulse 64 Resp 12 Wt 76.7 kg (169 lb) LMP 08/01/2018 (Within Days) BMI 28.12 kg/m? General Appearance: Well appearing, alert, in no acute distress, well-hydrated, well nourished.. Lungs: lungs clear to auscultation. No wheezing, rhonchi, rales. Heart: RRR without murmur, gallop, or rubs. No ectopy. Extremities: No deformities, edema, skin discoloration, clubbing or cyanosis. Good capillary refill. . Psych: normal mood and behavior.. Health Maintenance List DIABETIC FOOT EXAM due on 2003 HPV VACCINE(1 - Female 3-dose series) due on 02/08/2004 ONE PNEUMOVAX PRIOR TO AGE 65 due on 2009 ANNUAL PCP TEAM CHRONIC DISEASE VISIT due on 2011 DILATED RETINAL EXAM due on 02/03/2018 DIABETES MED ADHERENCE due on 10/30/2018 STEROID INHALER ADHERENCE due on 10/30/2018 HBA1C due on 12/06/2018 PAP EVERY 3 YEARS (21-30 YEAR OLDS) due on 05/11/2019 URINE ALBUMIN:CREATININE RATIO due on 06/05/2019 LDL CHOLESTEROL due on 06/05/2019 DTAP,TDAP,TD(2 - Td) due on 10/28/2023 INFLUENZA Completed Data reviewed n/a ASSESSMENT/PLAN: 1. Anxiety - ICD9: 300.00, ICD10: F41.9 (primary diagnosis) Short term supply until patient can be seen by psychiatry - BUPROPION HCL SR 150 MG TABLET,12 HR SUSTAINED-RELEASE - ALPRAZOLAM 0.5 MG TABLET - CONSULT TO PSYCHIATRY 2. ADHD (attention deficit hyperactivity disorder), combined type - ICD9: 314.01, ICD10: F90.2 As above - DEXTROAMPHETAMINE-AMPHETAMINE ER 20 MG 24HR CAPSULE,EXTEND RELEASE - CONSULT TO PSYCHIATRY 3. Bipolar affective disorder, remission status unspecified (HCC) - ICD9: 296.80, ICD10: F31.9 As above - CONSULT TO PSYCHIATRY 4. Type 2 diabetes mellitus without complication, unspecified whether keno terminal operator insulin use (HCC) - ICD9: 250.00, ICD10: E11.9 Controlled. - Encouraged regular aerobic exercise and weight loss ROutine check in 6 months Sooner as needed Patient is in understanding that prescriptions given today are short term only and that she needs to make sure she follows up with psychiatry Consult placed. FRANCESCA FARAH PA-C PDMP website checked and validated. All prescriptions have been APPROPRIATELY filled. No suspicious activity was identified. 10/01/2018 by FRANCESCA FARAH PA-C The following approved medication requests have been transmitted electronically. Signed Prescriptions Disp Refills buPROPion SR (ZYBAN SR; WELLBUTRIN SR) 150 mg 12 hr tablet 60 tablet 1 Sig: Take 1 tablet by mouth twice daily. MARIA L: No ALPRAZolam (XANAX) 0.5 mg tablet 60 tablet 0 Sig: Take 1 po TID and 2 po qhs CR Class: C-IV MARIA L: No amphetamine-dextroamphetamine XR (ADDERALL XR) 20 mg 24 hr capsule 30 capsule 0 Sig: Take 1 capsule by mouth once daily for 30 days.Earliest Fill Date: 10/01/18 CR Class: C-II MARIA L: No lamoTRIgine (LAMICTAL) 100 mg tablet 30 tablet 0 Sig: Take 1 tablet by mouth once daily. MARIA L: No FRANCESCA FARAH PA-C CNOV Observed: 10/01/2018 Status: COMPLETED Source: [place] 11:00 AM [facility] REPOSITORY Office Visit (FAMPWS) BERNADETTE FAUST ([id number]) 1995 F Date Time Provider Department 10/01/18 11:00 AM EDUARDO FARAH) FAMPWS During your visit today, we recorded the following information about you: Pulse Respiration Blood pressure Weight 64/minute 12/minute 118/78 76.7 kg FRANCESCA FARAH PA-C 10/01/2018 12:04 PM Signed Chief Complaint Patient presents with: Recheck HPI Bernadette Faust is a 23 year old female who presents here today for Chronic Medical Conditions.. Patient with hx of ADHD, axiety and Biopolar disorder, and DM2 Presents today for prescription refills. States that her psychiatrist no longer accepts her insurance and she was unable to get an appointment with them. She is wanting to try to get in with psych within the [facility] system. Would like a short term supply of medication until she can be seen by psychiatrist. No specific concerns today. Last hgb a1c was 6.5. She has not taken metformin for a long time due to low BS. Past medical history, appointments, medications, allergies reviewed. Previous Medical History PAST MEDICAL HISTORY Diagnosis Date - Acne - Breast cancer (HCC) - Chronic appendicitis 2005 S/P lap appendectomy. - Family history of defects 05/27/2013 05/27/2013 Father of the baby was born with a hole in his heart. No surgical correction needed. Father the baby's niece born with spina bifida. Patient's first cousin diagnosed with Asperger's Syndrome. TKRN - FRACTURE 2004 FOOT - Gestational diabetes 10/31/2013 - Stroke (HCC) - Unspecified asthma(493.90) EXERCISE INDUCED Previous Surgical History PAST SURGICAL HISTORY Procedure Laterality Date - APPENDECTOMY summer 2005 - BREAST LUMPECTOMY HX - DANDC AFTER DELIVERY 01/03/14 3 days PP, delayed PP hemorrhage - EXCISION OF LINGUAL TONSIL 06/01 - PAST SURGICAL HISTORY OF left knee surgery Family History FAMILY HISTORY Problem Relation Age of Onset - Allergies Father - Skin Cancer Father - Stroke Father - Skin Cancer Brother - Cancer Maternal Grandmother OVARIAN, great grandmother also - Prostate Cancer Maternal Grandfather LUNG AND PROSTRATE - Emphysema Maternal Grandfather - COPD Maternal Grandfather - other (cholecystitis) Sister - Diabetes Paternal Uncle - Diabetes Paternal Aunt Patient Allergies ALLERGIES Allergen Reactions - Latex Unknown - Tape [Other] Rash - Verapamil Anaphylaxis Current Medications Current Outpatient Prescriptions on File Prior to Visit: acetaminophen 325 mg-caffeine 40 mg-butalbital 50 mg (FIORICET) per tablet Take by mouth. albuterol (PROVENTIL) 2.5 mg /3 mL (0.083 %) nebulizer solution aspirin-calcium carbonate 81 mg-300 mg calcium(777 mg) tab Take 81 mg by mouth. cetirizine (ZYRTEC) 10 mg tablet Take 10 mg by mouth. lamoTRIgine (LAMICTAL) 100 mg tablet mometasone (ASMANEX) 220 mcg (60 doses) aepb Inhale as instructed. ondansetron orally disintegrating (ZOFRAN ODT) 4 mg disintegrating tablet SUMAtriptan (IMITREX) 50 mg tablet Take 50 mg by mouth. triamcinolone acetonide (NASACORT AQ) 55 mcg nasal inhaler Use in the nose. gabapentin (NEURONTIN) 800 mg tablet Take 800 mg by mouth three times daily. amphetamine-dextroamphetamine XR (ADDERALL XR) 20 mg 24 hr capsule ALPRAZolam (XANAX) 0.5 mg tablet promethazine (PHENERGAN) 25 mg tablet Take 1 tablet by mouth every 6 hours as needed. meclizine (ANTIVERT) 25 mg tab Take 1 tablet by mouth every 6 hours as needed (dizziness). EPINEPHrine (EPIPEN) 0.3 mg/0.3 mL auto-injector Use as directed prn allergic reaction buPROPion SR (ZYBAN SR; WELLBUTRIN SR) 150 mg 12 hr tablet Take 1 tablet by mouth twice daily. blood sugar diagnostic (BLOOD GLUCOSE TEST) test strip Test blood sugar(s) 3 times daily. Dx: Type 2 DM - Controlled E11.9 Insulin: No. Elevated sugars and fluctuating sugars. albuterol HFA (VENTOLIN HFA) 90 mcg/actuation inhaler Inhale 2 Puffs as instructed every 4 hours as needed for Wheezing/Shortness of Breath. naproxen (NAPROSYN) 500 mg tablet Take 1 tablet by mouth twice daily with meals. acetaminophen (TYLENOL) 500 mg tablet Take 500 mg by mouth. cyclobenzaprine (FLEXERIL) 10 mg tablet Take 10 mg by mouth. topiramate (TOPAMAX) 25 mg tablet hydrOXYzine pamoate (VISTARIL) 25 mg capsule Take 1 capsule by mouth three times daily as needed for Anxiety. metFORMIN (GLUCOPHAGE) 500 mg tablet Take 1 tablet by mouth twice daily with meals. . (Patient not taking: Reported on 06/05/2018 ) No current facility-administered medications on file prior to visit. Social History Social History Marital status: Spouse name: DEVORA Years of education: 14 Number of children: Social History Main Topics Smoking status: Never Smoker Smokeless tobacco: Never Used Alcohol use: Yes Comment: occasionaly, NOT WHILE Drug use: No Sexual activity: Yes Partners with: Male Other Topics Concern No BLOOD TRANSFUSIONS No CAFFEINE No OCCUPATIONAL EXPOSURE No HOBBY HAZARD No SLEEP CONCERN No STRESS CONCERN No WEIGHT CONCERN No DIET No BACK CARE No EXERCISE Yes BIKE HELMET No SEAT BELT Yes SELF EXAMS No Social History Narrative Social History: , Estranged from her . Has a daughter born 2013. Patient denies tobacco use, EtOH use or experimentation with illegal drugs. Review of Symptoms REVIEW OF SYSTEMS GENERAL: No weight loss, malaise or fevers NECK: Negative for lumps, goiter, pain and significant neck swelling RESPIRATORY: Negative for cough, hemoptysis, wheezing, COPD, dyspnea or shortness of breath CARDIOVASCULAR: Negative for chest pain, leg swelling, CHF or palpitations NEURO: No history of headaches, syncope, paralysis, seizures or tremors Psych: See HPI. EXAM: BP 118/78 (BP Site: Left Arm, BP Position: Sitting, BP Cuff Size: Regular Adult) Pulse 64 Resp 12 Wt 76.7 kg (169 lb) LMP 08/01/2018 (Within Days) BMI 28.12 kg/m? General Appearance: Well appearing, alert, in no acute distress, well-hydrated, well nourished.. Lungs: lungs clear to auscultation. No wheezing, rhonchi, rales. Heart: RRR without murmur, gallop, or rubs. No ectopy. Extremities: No deformities, edema, skin discoloration, clubbing or cyanosis. Good capillary refill. . Psych: normal mood and behavior.. Health Maintenance List DIABETIC FOOT EXAM due on 2003 HPV VACCINE(1 - Female 3-dose series) due on 02/08/2004 ONE PNEUMOVAX PRIOR TO AGE 65 due on 2009 ANNUAL PCP TEAM CHRONIC DISEASE VISIT due on 2011 DILATED RETINAL EXAM due on 02/03/2018 DIABETES MED ADHERENCE due on 10/30/2018 STEROID INHALER ADHERENCE due on 10/30/2018 HBA1C due on 12/06/2018 PAP EVERY 3 YEARS (21-30 YEAR OLDS) due on 05/11/2019 URINE ALBUMIN:CREATININE RATIO due on 06/05/2019 LDL CHOLESTEROL due on 06/05/2019 DTAP,TDAP,TD(2 - Td) due on 10/28/2023 INFLUENZA Completed Data reviewed n/a ASSESSMENT/PLAN: 1. Anxiety - ICD9: 300.00, ICD10: F41.9 (primary diagnosis) Short term supply until patient can be seen by psychiatry - BUPROPION HCL SR 150 MG TABLET,12 HR SUSTAINED-RELEASE - ALPRAZOLAM 0.5 MG TABLET - CONSULT TO PSYCHIATRY 2. ADHD (attention deficit hyperactivity disorder), combined type - ICD9: 314.01, ICD10: F90.2 As above - DEXTROAMPHETAMINE-AMPHETAMINE ER 20 MG 24HR CAPSULE,EXTEND RELEASE - CONSULT TO PSYCHIATRY 3. Bipolar affective disorder, remission status unspecified (HCC) - ICD9: 296.80, ICD10: F31.9 As above - CONSULT TO PSYCHIATRY 4. Type 2 diabetes mellitus without complication, unspecified whether half-way insulin use (HCC) - ICD9: 250.00, ICD10: E11.9 Controlled. - Encouraged regular aerobic exercise and weight loss ROutine check in 6 months Sooner as needed Patient is in understanding that prescriptions given today are short term only and that she needs to make sure she follows up with psychiatry Consult placed. FRANCESCA FARAH PA-C PDMP website checked and validated. All prescriptions have been APPROPRIATELY filled. No suspicious activity was identified. 10/01/2018 by FRANCESCA FARAH PA-C The following approved medication requests have been transmitted electronically. Signed Prescriptions Disp Refills buPROPion SR (ZYBAN SR; WELLBUTRIN SR) 150 mg 12 hr tablet 60 tablet 1 Sig: Take 1 tablet by mouth twice daily. MARIA L: No ALPRAZolam (XANAX) 0.5 mg tablet 60 tablet 0 Sig: Take 1 po TID and 2 po qhs CR Class: C-IV MARIA L: No amphetamine-dextroamphetamine XR (ADDERALL XR) 20 mg 24 hr capsule 30 capsule 0 Sig: Take 1 capsule by mouth once daily for 30 days.Earliest Fill Date: 10/01/18 CR Class: C-II MARIA L: No lamoTRIgine (LAMICTAL) 100 mg tablet 30 tablet 0 Sig: Take 1 tablet by mouth once daily. MARIA L: No FRANCESCA FARAH PA-C Referring Provider: BECKY SOTELO [[id number]] Allergies As of Date: 10/01/2018 Noted Allergy Reaction LATEX 06/05/2018 16 - Unknown TAPE [Other] 11/23/2005 2 - Rash VERAPAMIL 06/05/2018 10 - Anaphylaxis Date Reviewed: 09/18/2018 Reviewed by: Love Cheng Ma - Fully Assessed Reason for Visit: Recheck [92] Primary Visit Diagnosis:Anxiety [F41.9] Other Visit Diagnoses:ADHD (attention deficit hyperactivity disorder), combined type [F90.2] Bipolar affective disorder, remission status unspecified (HCC) [F31.9] Type 2 diabetes mellitus without complication, unspecified whether keno terminal operator insulin use (HCC) [E11.9] Order(s):buPROPion SR (ZYBAN SR; WELLBUTRIN SR) 150 mg 12 hr tabletTake 1 tablet by mouth twice daily.Disp: 60 tabletRfl: 1 ALPRAZolam (XANAX) 0.5 mg tabletTake 1 po TID and 2 po qhsDisp: 60 tabletRfl: 0 amphetamine-dextroamphetamine XR (ADDERALL XR) 20 mg 24 hr capsuleTake 1 capsule by mouth once daily for 30 days. Earliest Fill Date: 10/01/18Disp: 30 capsuleRfl: 0 lamoTRIgine (LAMICTAL) 100 mg tabletTake 1 tablet by mouth once daily.Disp: 30 tabletRfl: 0 CONSULT TO PSYCHIATRY [9035] Order #: [id number]: 1 Prescriptions as of 10/01/2018 Sig: BUPROPION HCL SR 150 MG TABLE* Take 1 tablet by mouth twice * ALPRAZOLAM 0.5 MG TABLET Take 1 po TID and 2 po qhs DEXTROAMPHETAMINE-AMPHETAMINE* Take 1 capsule by mouth once * LAMOTRIGINE 100 MG TABLET Take 1 tablet by mouth once d* [id number]* Take by mouth. ALBUTEROL SULFATE 2.5 MG/3 ML* ASPIRIN-CALCIUM CARBONATE 81 * Take 81 mg by mouth. CETIRIZINE 10 MG TABLET Take 10 mg by mouth. MOMETASONE 220 MCG (60 DOSES)* Inhale as instructed. ONDANSETRON 4 MG DISINTEGRATI* SUMATRIPTAN 50 MG TABLET Take 50 mg by mouth. TRIAMCINOLONE ACETONIDE 55 MC* Use in the nose. GABAPENTIN 800 MG TABLET Take 800 mg by mouth three ti* PROMETHAZINE 25 MG TABLET Take 1 tablet by mouth every * MECLIZINE 25 MG TABLET Take 1 tablet by mouth every * EPINEPHRINE 0.3 MG/0.3 ML INJ* Use as directed prn allergic * BLOOD SUGAR DIAGNOSTIC STRIPS Test blood sugar(s) 3 times d* ALBUTEROL SULFATE HFA 90 MCG/* Inhale 2 Puffs as instructed * NAPROXEN 500 MG TABLET Take 1 tablet by mouth twice * ACETAMINOPHEN 500 MG TABLET Take 500 mg by mouth. CYCLOBENZAPRINE 10 MG TABLET Take 10 mg by mouth. TOPIRAMATE 25 MG TABLET HYDROXYZINE PAMOATE 25 MG CAP* Take 1 capsule by mouth three* METFORMIN 500 MG TABLET Take 1 tablet by mouth twice * Patient not taking: Reported on 06/05/2018 Problem List As Of Date 10/01/2018 Noted Resolved Inguinal hernia with obstruction, without menti*INVALID FOR*03/18/2013 PAIN GROIN (right) [R10.9] INVALID FOR*03/18/2013 Abdominal pain, right lower quadrant [R10.31] INVALID FOR*03/18/2013 Lumbago [M54.5] INVALID FOR* Headache [R51] INVALID FOR* TMJ (temporomandibular joint syndrome) [M26.609]INVALID FOR* Intermittent asthma with allergic rhinitis [J45*INVALID FOR* More... Family history of defects [Z82.79] INVALID FOR*10/07/2015 More... More... Rubella non-immune status, antepartum [O99.89, *INVALID FOR*02/11/2014 More... Gestational diabetes [O24.419] INVALID FOR*02/11/2014 More... Supervision of other high-risk (V23.89*INVALID FOR*02/11/2014 More... Type 2 diabetes mellitus without complication (*INVALID FOR* Anxiety [F41.9] INVALID FOR* Bipolar affective disorder (HCC) [F31.9] INVALID FOR* Prescriptions ordered this encounter Disp Refills Start End BUPROPION HCL SR 150 MG TABLET,12 HR* 60 t* 1 10/01/2018 Class: Print RX Route: ORAL Sig: Take 1 tablet by mouth twice daily. ALPRAZOLAM 0.5 MG TABLET 60 t* 0 10/01/2018 11/01/2019 Class: Print RX Sig: Take 1 po TID and 2 po qhs DEXTROAMPHETAMINE-AMPHETAMINE ER 20 * 30 c* 0 10/01/2018 10/31/2018 Class: Print RX Route: ORAL Sig: Take 1 capsule by mouth once daily for 30 days. Earliest Fill Date: 10/01/18 LAMOTRIGINE 100 MG TABLET 30 t* 0 10/01/2018 Class: Print RX Route: ORAL Sig: Take 1 tablet by mouth once daily. Medications Discontinued During This Encounter buPROPion SR (ZYBAN SR; WELLBUTRIN S* 60 t* 5 11/16/2016 10/01/2018 Route: ORAL Sig: Take 1 tablet by mouth twice daily. Disc: Reason for discontinue is not on file. ALPRAZolam (XANAX) 0.5 mg tablet 04/03/2017 10/01/2018 Class: Historical Med Sig: Disc: Reason for discontinue is not on file. amphetamine-dextroamphetamine XR (AD* 04/03/2017 10/01/2018 Class: Historical Med Sig: Disc: Reason for discontinue is not on file. lamoTRIgine (LAMICTAL) 100 mg tablet 05/29/2018 10/01/2018 Class: Historical Med Sig: Disc: Reason for discontinue is not on file. Disposition: Return in about 6 months (around 04/01/2019) for PCP team Routine. Follow-up and Disposition History Recorded Encounter Status:Closed by FRANCESCA VINCENT on 10/01/18 HCG, QUANTITATIVE BL Collected: 10/01/2018 Status: F Source: [place] 10:22 AM [facility] REPOSITORY TYPE CODE TESTS RESULT OUT OF REFERENCE UNITS RANGE LAB HCGQT <5.0 mU/mL [place], [place] 48772.0 Result Comment: QUANTITATIVE HCG NORMAL RANGES Weeks of Gestation (Weeks Since LMP) 3 Weeks (5.8-71.2 mIU/mL) 4 Weeks (9.5-750 mIU/mL) 5 Weeks (217-7138 mIU/mL) 6 Weeks (158-05961 mIU/mL) 7 Weeks (3697-668427 mIU/mL) 8 Weeks (85047-472963 mIU/mL) 9 Weeks (32055-063794 mIU/mL) 10 Weeks (74126-493565 mIU/mL) 12 Weeks (99433-307688 mIU/mL) Referenced to 4th IS of [facility] Performed By: #### HCGQT #### [facility] [address] [place], [place] [address] CNOV Observed: 09/18/2018 Status: COMPLETED Source: [place] 9:30 AM [facility] REPOSITORY Office Visit (WOOB) BERNADETTE FAUST ([id number]) 1995 F Date Time Provider Department 09/18/18 9:30 AM LINO HUBER ([facility]) WOOB During your visit today, we recorded the following information about you: Blood pressure Weight 114/76 78 kg Lino Huber APRN.CNM 09/18/2018 7:45 PM Signed Bernadette Guerrero Christianne is a 23 year old female who presents for problem visit for follow-up ER visit after continued LLQ pain, patient was last seen in ER 09/14/18. HPI: Patient seen in ER 09/14/18 for intractable pain that was unrelieved with Ibuprofen. Patient confirmed to have IUP in ER - see uploaded report. bhcg quants increasing appropriately. Patient was sent home with short course of [place] narcotic pills. Taking one [place] every 4 hours for pain. Patient still having LLQ pain. Reports that bowel movements have slowed down but still going once daily. Patient feeling extremely cold the last few days. A few times having more crampy pain than dull pain; patient also still having infrequent sharp pain but feels that the [place] is helping decrease the intensity of the sharp pain. Patient requesting refill of medication at this time. Separately, patient reports uncertainty over desire to continue . Patient is requesting resources for options counseling and termination clinics. PAST MEDICAL HISTORY Diagnosis Date - Acne - Breast cancer (HCC) - Chronic appendicitis 2006 S/P lap appendectomy. - Family history of defects 05/27/2013 05/27/2013 Father of the baby was born with a hole in his heart. No surgical correction needed. Father the baby's niece born with spina bifida. Patient's first cousin diagnosed with Asperger's Syndrome. TKRN - FRACTURE 2004 FOOT - Gestational diabetes 10/31/2013 - Stroke (HCC) - Unspecified asthma(493.90) EXERCISE INDUCED PAST SURGICAL HISTORY Procedure Laterality Date - APPENDECTOMY summer 2005 - BREAST LUMPECTOMY HX - DANDC AFTER DELIVERY 01/03/14 3 days PP, delayed PP hemorrhage - EXCISION OF LINGUAL TONSIL 06/01 - PAST SURGICAL HISTORY OF left knee surgery FAMILY HISTORY Problem Relation Age of Onset - Allergies Father - Skin Cancer Father - Stroke Father - Skin Cancer Brother - Cancer Maternal Grandmother OVARIAN, great grandmother also - Prostate Cancer Maternal Grandfather LUNG AND PROSTRATE - Emphysema Maternal Grandfather - COPD Maternal Grandfather - other (cholecystitis) Sister - Diabetes Paternal Uncle - Diabetes Paternal Aunt Social History Marital status: Spouse name: DEVORA Years of education: 14 Number of children: Social History Main Topics Smoking status: Never Smoker Smokeless tobacco: Never Used Alcohol use: Yes Comment: occasionaly, NOT WHILE Drug use: No Sexual activity: Yes Partners with: Male Other Topics Concern No BLOOD TRANSFUSIONS No CAFFEINE No OCCUPATIONAL EXPOSURE No HOBBY HAZARD No SLEEP CONCERN No STRESS CONCERN No WEIGHT CONCERN No DIET No BACK CARE No EXERCISE Yes BIKE HELMET No SEAT BELT Yes SELF EXAMS No Social History Narrative Social History: , Estranged from her . Has a daughter born 2013. Patient denies tobacco use, EtOH use or experimentation with illegal drugs. Current Outpatient Prescriptions: acetaminophen (TYLENOL) 500 mg tablet Take 500 mg by mouth. acetaminophen 325 mg-caffeine 40 mg-butalbital 50 mg (FIORICET) per tablet Take by mouth. cyclobenzaprine (FLEXERIL) 10 mg tablet Take 10 mg by mouth. albuterol (PROVENTIL) 2.5 mg /3 mL (0.083 %) nebulizer solution aspirin-calcium carbonate 81 mg-300 mg calcium(777 mg) tab Take 81 mg by mouth. cetirizine (ZYRTEC) 10 mg tablet Take 10 mg by mouth. lamoTRIgine (LAMICTAL) 100 mg tablet mometasone (ASMANEX) 220 mcg (60 doses) aepb Inhale as instructed. ondansetron orally disintegrating (ZOFRAN ODT) 4 mg disintegrating tablet SUMAtriptan (IMITREX) 50 mg tablet Take 50 mg by mouth. topiramate (TOPAMAX) 25 mg tablet triamcinolone acetonide (NASACORT AQ) 55 mcg nasal inhaler Use in the nose. gabapentin (NEURONTIN) 800 mg tablet Take 800 mg by mouth three times daily. amphetamine-dextroamphetamine XR (ADDERALL XR) 20 mg 24 hr capsule ALPRAZolam (XANAX) 0.5 mg tablet promethazine (PHENERGAN) 25 mg tablet Take 1 tablet by mouth every 6 hours as needed. meclizine (ANTIVERT) 25 mg tab Take 1 tablet by mouth every 6 hours as needed (dizziness). hydrOXYzine pamoate (VISTARIL) 25 mg capsule Take 1 capsule by mouth three times daily as needed for Anxiety. EPINEPHrine (EPIPEN) 0.3 mg/0.3 mL auto-injector Use as directed prn allergic reaction metFORMIN (GLUCOPHAGE) 500 mg tablet Take 1 tablet by mouth twice daily with meals. . (Patient not taking: Reported on 06/05/2018 ) buPROPion SR (ZYBAN SR; WELLBUTRIN SR) 150 mg 12 hr tablet Take 1 tablet by mouth twice daily. blood sugar diagnostic (BLOOD GLUCOSE TEST) test strip Test blood sugar(s) 3 times daily. Dx: Type 2 DM - Controlled E11.9 Insulin: No. Elevated sugars and fluctuating sugars. albuterol HFA (VENTOLIN HFA) 90 mcg/actuation inhaler Inhale 2 Puffs as instructed every 4 hours as needed for Wheezing/Shortness of Breath. naproxen (NAPROSYN) 500 mg tablet Take 1 tablet by mouth twice daily with meals. No current facility-administered medications for this visit. Allergies As of Date: 09/18/2018 Allergen Noted Reaction LATEX 06/05/2018 Unknown TAPE [OTHER] 11/23/2005 Rash VERAPAMIL 06/05/2018 Anaphylaxis Fully Assessed 09/13/2018 REVIEW OF SYSTEMS Abdomen: No bloating, early satiety, indigestion, or increased flatulence. No nausea, vomiting, diarrhea, or constipation. ++ abdominal pain, most severe in LLQ. Bladder: No dysuria, gross hematuria, urinary frequency, urinary urgency, or incontinence. Breast: No breast lumps, nipple d/c, overlying skin changes, redness or skin retraction. Expanded ROS: N/A Allergies and current medication updated:Yes EXAM: BP 114/76 Wt 172 lb (78.0kg) LMP 08/01/2018 GENERAL: pleasant, female in no apparent distress, poor hygiene noted at visit today HEENT: Normocephalic, atraumatic, mucus membranes moist and no lesions NECK: Supple, full range of motion, no adenopathy and thyroid normal DERMATOLOGY: Normal, without lesions, non-icteric and non-hirsute BREAST: deferred CHEST: Normal inspiratory effort ABDOMEN: soft, non-tender, no masses, Mild tenderness in Generalized, LLQ, rebound Absent and guarding Present PELVIC: deferred BIMANUAL: deferred NEURO: alert and oriented x3,exam grossly non-focal EXTREMITIES: normal ASSESSMENT AND PLAN: Encounter Diagnosis ICD-10-CM 1. LLQ pain R10.32 HCG QUANTITATIVE 2. Missed menses N92.6 HCG QUANTITATIVE 1) bhcg blood levels increasing appropriately, repeat bhcg blood draw ordered today per patient request 2) +IUP noted by ER ultrasound. Patient has pending visit in our office in 6 days for repeat TVUS 3) Options counseling done with patient today - resources provided. Recommendation for clinic made - patient to contact directly and schedule appt if interested in TAB. 4) RTC PRN Lino Huber APRN.YAWM Referring Provider: SELF [[id number]] Allergies As of Date: 09/18/2018 Noted Allergy Reaction LATEX 06/05/2018 16 - Unknown TAPE [Other] 11/23/2005 2 - Rash VERAPAMIL 06/05/2018 10 - Anaphylaxis Date Reviewed: 09/18/2018 Reviewed by: Love Cheng Ma - Fully Assessed Primary Visit Diagnosis:LLQ pain [R10.32] Other Visit Diagnosis:Missed menses [N92.6] Order(s):HCG QUANTITATIVE [SQHCGQT] Order #: [id number] FUTURE Prescriptions as of 09/18/2018 Sig: CYCLOBENZAPRINE 10 MG TABLET Take 10 mg by mouth. CETIRIZINE 10 MG TABLET Take 10 mg by mouth. LAMOTRIGINE 100 MG TABLET MOMETASONE 220 MCG (60 DOSES)* Inhale as instructed. ONDANSETRON 4 MG DISINTEGRATI* SUMATRIPTAN 50 MG TABLET Take 50 mg by mouth. TOPIRAMATE 25 MG TABLET TRIAMCINOLONE ACETONIDE 55 MC* Use in the nose. GABAPENTIN 800 MG TABLET Take 800 mg by mouth three ti* PROMETHAZINE 25 MG TABLET Take 1 tablet by mouth every * MECLIZINE 25 MG TABLET Take 1 tablet by mouth every * HYDROXYZINE PAMOATE 25 MG CAP* Take 1 capsule by mouth three* EPINEPHRINE 0.3 MG/0.3 ML INJ* Use as directed prn allergic * NAPROXEN 500 MG TABLET Take 1 tablet by mouth twice * ACETAMINOPHEN 500 MG TABLET Take 500 mg by mouth. [id number]-OEXAJCYZPEPUB-WPKS* Take by mouth. ALBUTEROL SULFATE 2.5 MG/3 ML* ASPIRIN-CALCIUM CARBONATE 81 * Take 81 mg by mouth. DEXTROAMPHETAMINE-AMPHETAMINE* ALPRAZOLAM 0.5 MG TABLET METFORMIN 500 MG TABLET Take 1 tablet by mouth twice * Patient not taking: Reported on 06/05/2018 BUPROPION HCL SR 150 MG TABLE* Take 1 tablet by mouth twice * BLOOD SUGAR DIAGNOSTIC STRIPS Test blood sugar(s) 3 times d* ALBUTEROL SULFATE HFA 90 MCG/* Inhale 2 Puffs as instructed * Problem List As Of Date 09/18/2018 Noted Resolved Inguinal hernia with obstruction, without menti*INVALID FOR*03/18/2013 PAIN GROIN (right) [R10.9] INVALID FOR*03/18/2013 Abdominal pain, right lower quadrant [R10.31] INVALID FOR*03/18/2013 Lumbago [M54.5] INVALID FOR* Headache [R51] INVALID FOR* TMJ (temporomandibular joint syndrome) [M26.609]INVALID FOR* Intermittent asthma with allergic rhinitis [J45*INVALID FOR* More... Family history of defects [Z82.79] INVALID FOR*10/07/2015 More... More... Rubella non-immune status, antepartum [O99.89, *INVALID FOR*02/11/2014 More... Gestational diabetes [O24.419] INVALID FOR*02/11/2014 More... Supervision of other high-risk (V23.89*INVALID FOR*02/11/2014 More... Type 2 diabetes mellitus without complication (*INVALID FOR* Anxiety [F41.9] INVALID FOR* Disposition: Return if symptoms worsen or fail to improve. Follow-up and Disposition History Recorded Encounter Status:Closed by LINO HUBER CNM on 09/18/18 PROGRESS Observed: 09/18/2018 Status: COMPLETED Source: [place] 8:53 AM [facility] REPOSITORY O ID: [id number] Author: Lino Huber Service: (none) Author Type: Pc Analyst Type: Progress Notes Filed: 09/18/2018 7:45 PM Note Text: Bernadette Faust is a 23 year old female who presents for problem visit for follow-up ER visit after continued LLQ pain, patient was last seen in ER 09/14/18. HPI: Patient seen in ER 09/14/18 for intractable pain that was unrelieved with Ibuprofen. Patient confirmed to have IUP in ER - see uploaded report. bhcg quants increasing appropriately. Patient was sent home with short course of [place] narcotic pills. Taking one [place] every 4 hours for pain. Patient still having LLQ pain. Reports that bowel movements have slowed down but still going once daily. Patient feeling extremely cold the last few days. A few times having more crampy pain than dull pain; patient also still having infrequent sharp pain but feels that the [place] is helping decrease the intensity of the sharp pain. Patient requesting refill of medication at this time. Separately, patient reports uncertainty over desire to continue . Patient is requesting resources for options counseling and termination clinics. PAST MEDICAL HISTORY Diagnosis Date - Acne - Breast cancer (HCC) - Chronic appendicitis 2005 S/P lap appendectomy. - Family history of defects 05/27/2013 05/27/2013 Father of the baby was born with a hole in his heart. No surgical correction needed. Father the baby's niece born with spina bifida. Patient's first cousin diagnosed with Asperger's Syndrome. TKRN - FRACTURE 2004 FOOT - Gestational diabetes 10/31/2013 - Stroke (HCC) - Unspecified asthma(493.90) EXERCISE INDUCED PAST SURGICAL HISTORY Procedure Laterality Date - APPENDECTOMY summer 2005 - BREAST LUMPECTOMY HX - DANDC AFTER DELIVERY 01/03/14 3 days PP, delayed PP hemorrhage - EXCISION OF LINGUAL TONSIL 06/01 - PAST SURGICAL HISTORY OF left knee surgery FAMILY HISTORY Problem Relation Age of Onset - Allergies Father - Skin Cancer Father - Stroke Father - Skin Cancer Brother - Cancer Maternal Grandmother OVARIAN, great grandmother also - Prostate Cancer Maternal Grandfather LUNG AND PROSTRATE - Emphysema Maternal Grandfather - COPD Maternal Grandfather - other (cholecystitis) Sister - Diabetes Paternal Uncle - Diabetes Paternal Aunt Social History Marital status: Spouse name: DEVORA Years of education: 14 Number of children: Social History Main Topics Smoking status: Never Smoker Smokeless tobacco: Never Used Alcohol use: Yes Comment: occasionaly, NOT WHILE Drug use: No Sexual activity: Yes Partners with: Male Other Topics Concern No BLOOD TRANSFUSIONS No CAFFEINE No OCCUPATIONAL EXPOSURE No HOBBY HAZARD No SLEEP CONCERN No STRESS CONCERN No WEIGHT CONCERN No DIET No BACK CARE No EXERCISE Yes BIKE HELMET No SEAT BELT Yes SELF EXAMS No Social History Narrative Social History: , Estranged from her . Has a daughter born 2013. Patient denies tobacco use, EtOH use or experimentation with illegal drugs. Current Outpatient Prescriptions: acetaminophen (TYLENOL) 500 mg tablet Take 500 mg by mouth. acetaminophen 325 mg-caffeine 40 mg-butalbital 50 mg (FIORICET) per tablet Take by mouth. cyclobenzaprine (FLEXERIL) 10 mg tablet Take 10 mg by mouth. albuterol (PROVENTIL) 2.5 mg /3 mL (0.083 %) nebulizer solution aspirin-calcium carbonate 81 mg-300 mg calcium(777 mg) tab Take 81 mg by mouth. cetirizine (ZYRTEC) 10 mg tablet Take 10 mg by mouth. lamoTRIgine (LAMICTAL) 100 mg tablet mometasone (ASMANEX) 220 mcg (60 doses) aepb Inhale as instructed. ondansetron orally disintegrating (ZOFRAN ODT) 4 mg disintegrating tablet SUMAtriptan (IMITREX) 50 mg tablet Take 50 mg by mouth. topiramate (TOPAMAX) 25 mg tablet triamcinolone acetonide (NASACORT AQ) 55 mcg nasal inhaler Use in the nose. gabapentin (NEURONTIN) 800 mg tablet Take 800 mg by mouth three times daily. amphetamine-dextroamphetamine XR (ADDERALL XR) 20 mg 24 hr capsule ALPRAZolam (XANAX) 0.5 mg tablet promethazine (PHENERGAN) 25 mg tablet Take 1 tablet by mouth every 6 hours as needed. meclizine (ANTIVERT) 25 mg tab Take 1 tablet by mouth every 6 hours as needed (dizziness). hydrOXYzine pamoate (VISTARIL) 25 mg capsule Take 1 capsule by mouth three times daily as needed for Anxiety. EPINEPHrine (EPIPEN) 0.3 mg/0.3 mL auto-injector Use as directed prn allergic reaction metFORMIN (GLUCOPHAGE) 500 mg tablet Take 1 tablet by mouth twice daily with meals. . (Patient not taking: Reported on 06/05/2018 ) buPROPion SR (ZYBAN SR; WELLBUTRIN SR) 150 mg 12 hr tablet Take 1 tablet by mouth twice daily. blood sugar diagnostic (BLOOD GLUCOSE TEST) test strip Test blood sugar(s) 3 times daily. Dx: Type 2 DM - Controlled E11.9 Insulin: No. Elevated sugars and fluctuating sugars. albuterol HFA (VENTOLIN HFA) 90 mcg/actuation inhaler Inhale 2 Puffs as instructed every 4 hours as needed for Wheezing/Shortness of Breath. naproxen (NAPROSYN) 500 mg tablet Take 1 tablet by mouth twice daily with meals. No current facility-administered medications for this visit. Allergies As of Date: 09/18/2018 Allergen Noted Reaction LATEX 06/05/2018 Unknown TAPE [OTHER] 11/23/2005 Rash VERAPAMIL 06/05/2018 Anaphylaxis Fully Assessed 09/13/2018 REVIEW OF SYSTEMS Abdomen: No bloating, early satiety, indigestion, or increased flatulence. No nausea, vomiting, diarrhea, or constipation. ++ abdominal pain, most severe in LLQ. Bladder: No dysuria, gross hematuria, urinary frequency, urinary urgency, or incontinence. Breast: No breast lumps, nipple d/c, overlying skin changes, redness or skin retraction. Expanded ROS: N/A Allergies and current medication updated:Yes EXAM: BP 114/76 Wt 172 lb (78.0kg) LMP 08/01/2018 GENERAL: pleasant, female in no apparent distress, poor hygiene noted at visit today HEENT: Normocephalic, atraumatic, mucus membranes moist and no lesions NECK: Supple, full range of motion, no adenopathy and thyroid normal DERMATOLOGY: Normal, without lesions, non-icteric and non-hirsute BREAST: deferred CHEST: Normal inspiratory effort ABDOMEN: soft, non-tender, no masses, Mild tenderness in Generalized, LLQ, rebound Absent and guarding Present PELVIC: deferred BIMANUAL: deferred NEURO: alert and oriented x3,exam grossly non-focal EXTREMITIES: normal ASSESSMENT AND PLAN: Encounter Diagnosis ICD-10-CM 1. LLQ pain R10.32 HCG QUANTITATIVE 2. Missed menses N92.6 HCG QUANTITATIVE 1) bhcg blood levels increasing appropriately, repeat bhcg blood draw ordered today per patient request 2) +IUP noted by ER ultrasound. Patient has pending visit in our office in 6 days for repeat TVUS 3) Options counseling done with patient today - resources provided. Recommendation for clinic made - patient to contact directly and schedule appt if interested in TAB. 4) RTC PRN Lino Huber APRN.CNM DISCHARGE INSTRUCTION Observed: 09/14/2018 Status: F Source: [place] 4:23 PM [facility] [place] [facility] Medical Records Department [address] [place] [address] Discharge Instruction 09/14/18 1622 MR#: [id number] Acct: [id number] Name: BERNADETTE FAUST Rep #: [id number] : 1995 23 From: Christian Dior DO PCP: OUT OF [facility] DOCTOR Status: REG ER ED Disposition - Plan for ED Patient: Chief Complaint: Abd Pain Instructions: ED Abdominal Pain Unkn Cause Prescriptions: Hydrocodone Bitart/Apap 5-325 [[place] 5MG-325MG] 1 tab PO Q4H PRN PRN 2 Days #15 tab PRN Reason: Pain proMETHazine tablet [Phenergan] 25 mg PO Q6H PRN PRN #10 tab PRN Reason: Nausea Referrals: Artemio Garcia [STAFF PHYSICIAN] - 3-[address] [facility] Doctor,Out of [Primary Care Provider] - What to do if you have Problems For any increased pain, shortness of breath, bleeding, nausea or vomiting, chest pain, or any unexpected problems, contact your Primary Care Provider. Call [facility] ([phone]) or report to the closest Emergency Room. Call 911 if necessary. 09/14/18 9682 <Electronically signed by Christian Dior DO> Date Christian Dior DO Cosigner Signature (If Indicated): Date CC: OUT OF TOWN DOCTOR DISCHARGE INSTRUCTION Observed: 09/14/2018 Status: F Source: [place] 3:29 PM [facility] REPOSITORY [facility] Medical Records Department [address] [place] [place] [address] Discharge Instruction 09/14/18 1527 MR#: [id number] Acct: [id number] Name: CHRISTIANNEBERNADETTE R Rep #: [id number] : 1995 23 From: Christian Dior DO PCP: OUT OF TOWN DOCTOR Status: REG ER ED Disposition - Plan for ED Patient: Chief Complaint: Abd Pain Instructions: ED Abdominal Pain Unkn Cause Prescriptions: Hydrocodone Bitart/Apap 5-325 [[place] 5MG-325MG] 1 tab PO Q4H PRN PRN 2 Days #15 tab PRN Reason: Pain Referrals: [facility] Doctor,Out of [Primary Care Provider] - Artemio Garcia [STAFF PHYSICIAN] - 3-5 Days What to do if you have Problems For any increased pain, shortness of breath, bleeding, nausea or vomiting, chest pain, or any unexpected problems, contact your Primary Care Provider. Call [facility] ([phone]) or report to the closest Emergency Room. Call 911 if necessary. 09/14/18 1529 <Electronically signed by Christian Dior DO> Date Christina Dior DO Cosigner Signature (If Indicated): Date CC: OUT OF TOWN DOCTOR EMERGENCY DEPARTMENT Observed: 09/14/2018 Status: F Source: [place] SUMMARY 3:27 PM [facility] [place] [facility] Medical Records Department [address] [place] [address] Emergency Department Summary 09/14/18 1523 MR#: [id number] Acct: [id number] Name: BERNADETTE FAUST Rep #: [id number] : 1995 23 From: Christian Dior DO PCP: OUT OF TOWN DOCTOR Status: REG ER - ER Visit Summary Date of Service: 09/14/18 Chief Complaint: [Abdominal pain] History of Present Illness: The patient is a 23 F [presents to the emergency department complaint of abdominal pain that started 2 days ago. Patient states the pain is been continuous in the left lower quadrant and is sharp and stabbing and rates it a 8 out of 10. Patient's not had any diarrhea. Patient has vomited 4 times in the last 2 days. Patient states that she was seen at [facility] 2 days ago and had a quant that was 332. Patient also had an ultrasound that did not show anything significant. Patient subsequently had an quant 48 hours later showed her quant to be 662. Patient states that she also had another quant today and she does not know the results of it. Patient is . Patient's last menstrual period was August 04. She denies any vaginal bleeding.] Physical Examination: [HEENT-PERRLA, EOMI. Cranial nerves II through XII grossly intact. TMs clear. Mucous membranes moist. No adenopathy. Cardiovascular-regular rate and rhythm without murmur or ectopy Lungs-clear to auscultation, chest wall stable without crepitus or subcu emphysema Abdomen-normoactive bowel sounds, soft. Patient has tenderness over left lower quadrant with guarding. There is no rebound, rigidity, or perineal signs. No masses palpated. Extremities-intact 4, normal range of motion, normal pulses, atraumatic] Test Results: [Quantitative hCG obtained in the department was 1431. Type and Rh was A+. Urinalysis unremarkable. Pelvic ultrasound showed possible gestational sac noted within the uterus measuring 6 mm on the KATHERINE scale this measures only 5 weeks 0 days there is no pole yolk sac or heart rate identified at this time. It is likely too early to determine viability. Recommended serial beta-hCG studies and follow-up ultrasound in 10 or 14 days to determine viability.] Emergency Department Course and Treatment: [Patient was medicated with morphine and Zofran initially on presentation. Patient had to be remedicated with a second dose of morphine 4 mg.] Treatment Plan: [Patient case was discussed with Dr. Garcia who is on-call for [employer] who asked that patient follow-up with our office early next week and their office will call for an appointment. Patient will be given a prescription for [place] for pain. I had a long discussion with the patient at this time patient is unsure if she wants to continue the .] Disposition: [Discharged home in stable condition] Impression: [Abdominal pain-etiology uncertain at 5 weeks 0 days] This note was generated with [employer] dictation software. It may contain incorrect words, spelling, and punctuation that were not noted in review of the chart prior to signing ED Disposition - Plan for ED Patient: Chief Complaint: Abd Pain Referrals: [facility] Doctor,Out of [Primary Care Provider] - What to do if you have Problems For any increased pain, shortness of breath, bleeding, nausea or vomiting, chest pain, or any unexpected problems, contact your Primary Care Provider. Call [facility] ([phone]) or report to the closest Emergency Room. Call 911 if necessary. 09/14/18 1527 <Electronically signed by Christian Dior DO> Date Christian Dior DO Cosigner Signature (If Indicated): Date CC: OUT OF [facility] DOCTOR URINALYSIS, COMPLETE Collected: 09/14/2018 Status: F Source: [place] 2:35 PM [facility] [place] Order Comment: How was Urine Obtained? CLEAN CATCH TYPE CODE TESTS RESULT OUT OF RANGE REFERENCE UNITS LAB L400.3000 Yellow COLOR Normal Yellow LAB L400.3050 Clear Normal CLARITY Sl. Cloudy LAB L400.3200 Normal mg/dl High GLUCOSE, UR 250 LAB L400.3300 Negative mg/dL Normal BILIRUBIN URINE Negative LAB L400.3400 Negative mg/dl Normal KETONE UR Negative LAB L400.3465 1.002-1.030 Normal SP.GR. DIPSTX 1.010 LAB L400.3550 5.0 - 8.0 pH UR Normal 7.0 LAB L400.3600 Negative mg/dl PROT Normal DIPSTX Negative LAB L400.3700 Normal mg/dl Normal UROBILI Normal LAB L400.3750 Negative Normal NITRITE UR Negative LAB L400.3780 Negative /ul Normal OCCULT BLOOD-UR Negative LAB L400.3800 Negative /ul LEUK Normal ESTERASE Negative LAB L400.4050 0-5 /hpf WBC Normal 0-5 SEEN LAB L400.4100 0-5 /hpf 0 Normal RBC-UA SEEN LAB L400.4150 5-10 /hpf SQUAM Normal EPI 0-5 SEEN LAB L400.4300 None Seen /hpf Normal BACTERIA RARE LAB L400.4350 <or=2+ /hpf 0 Normal MUCUS, URINE SEEN Performed By: #### L400.0001 #### [facility] [address] [place], [address] HCG TITER QUANT., Collected: 09/14/2018 Status: F Source: [place] 1:20 PM [facility] [place] TYPE CODE TESTS RESULT OUT OF RANGE REFERENCE UNITS LAB L700.8000 <9 non-preg mIU/mL High HCG 1431 QUANT. Performed By: #### L700.8000 #### [facility] [address] [place], [address] ABO RH BLOOD TYPE, Collected: 09/14/2018 Status: F Source: [place] PATIENT 1:20 PM [facility] [place] TYPE CODE TESTS RESULT OUT OF RANGE REFERENCE UNITS LAB B10.0800 A Normal BLOOD POSITIVE TYPE GEL Performed By: #### B10.0010 #### [facility] [facility] [address] [place], [address] TRANSVAGINAL W/PREG US Observed: 09/14/2018 Status: F Source: [place] 1:08 PM [facility] [place] [facility] Imaging Services [address] [place] [address] Transvaginal w/Preg US MR#: [id number] Acct: [id number] Name: BERNADETTE FAUST Yolanda Rep #: [id number] : 1995 F 23 From: Camilo Peacock MD PCP: OUT OF TOWN DOCTOR Status: REG ER Study: Transvaginal w/Preg US Date of Exam: 09/14/18 Exam# [id number] Ordering Dr: Christian Dior DO STUDY: FIRST TRIMESTER OBSTETRICAL ULTRASOUND REASON FOR EXAM: Female, 23 years old. Left pelvic pain LMP: 08/01/2018 TECHNIQUE: Transvaginal TECHNICAL QUALITY: Adequate. PRIOR ULTRASOUND: None. FINDINGS: There is visualization of a single gestational sac in a normal intrauterine position. The mean sac diameter (MSD) measures 0.6 cm, indicating an estimated gestational age (EGA) of 5 weeks, 0 days. The gestational sac shape is within normal limits. There is no demonstrated yolk sac. The placenta is non-visualized. There is no demonstrated embryo ( pole). The estimated gestation age (EGA) by LMP is 6 weeks, 2 days. The estimated date of delivery (KATHERINE) by LMP is 05/08/2019. The estimated gestation age (EGA) by US is 5 weeks, 0 days. The estimated date of delivery (KATHERINE) by US is 05/17/2019. The uterus measures 8.4 x 6.9 x 4.7 cm. There is no demonstrated uterine fibroid. The cervix is closed. Endometrium measures 1.3 cm The right ovary measures 2.9 x 2.5 x 2.0 cm. There is no right ovarian cyst. There is no visualized right adnexal mass or complex lesion. The left ovary measures 4.1 x 2.6 x 1.6 cm. There is a isoechoic nodule in the left ovary measuring 1.8 x 1.8 x 1.2 cm, possible resolving cyst. There is minimal fluid in the cul de sac. US/Transvaginal w/Preg US IMPRESSION: Possible gestational sac noted within the uterus measuring 6 mm. On the KATHERINE scale this measures only 5 weeks 0 days. There is no pole, yolk sac or heart rate identified. It is likely too early to determine viability. Recommend serial beta-hCG studies and follow-up ultrasound in 10-14 days to determine viability. Free fluid in the cul-de-sac Electronically Signed: Estrada Peacock MD at 15:05 EST , Service support , CC: OUT OF TOWN DOCTOR; Christian Dior DO [employer] Supervisor: Signed HCG, QUANTITATIVE BL Collected: 09/14/2018 Status: F Source: [place] 11:30 AM [facility] REPOSITORY TYPE CODE TESTS RESULT OUT OF REFERENCE UNITS RANGE LAB HCGQT <5.0 mU/mL HCG, High Quantitative Bl 1518.0 Result Comment: QUANTITATIVE HCG NORMAL RANGES Weeks of Gestation (Weeks Since LMP) 3 Weeks (5.8-71.2 mIU/mL) 4 Weeks (9.5-750 mIU/mL) 5 Weeks (217-7138 mIU/mL) 6 Weeks (158-16871 mIU/mL) 7 Weeks (3697-219858 mIU/mL) 8 Weeks (95500-330869 mIU/mL) 9 Weeks (83397-993989 mIU/mL) 10 Weeks (71283-640470 mIU/mL) 12 Weeks (08041-639885 mIU/mL) Referenced to 4th IS of [facility] Performed By: #### HCGQT #### [facility] [address] [place], [place] [address] PROGRESS Observed: 09/13/2018 Status: COMPLETED Source: [place] 5:24 PM [facility] REPOSITORY HNO ID: [id number] Author: Maureen Frias Service: (none) Author Type: Physician Type: Progress Notes Filed: 09/13/2018 5:26 PM Note Text: Transvaginal ultrasound: Thickened endometrium identified without a definite gestational sac, yolk sac, or embryo identified. Differential diagnosis includes: - Early intrauterine , - Threatened , or - Ectopic . Ultrasound is poorly sensitive for the detection of ectopic . The uterine cavity is normal in shape. The adnexa appear normal. No fluid is noted in the cul de sac RECOMMENDATIONS - Consider repeat evaluation in 2 weeks by ultrasound. - Serial HCG levels. The hCG yesterday was 644. Repeat today is not availbale yet - Ectopic precautions HCG, QUANTITATIVE BL Collected: 09/12/2018 Status: F Source: [place] 12:11 PM [facility] REPOSITORY TYPE CODE TESTS RESULT OUT OF REFERENCE UNITS RANGE LAB HCGQT <5.0 mU/mL HCG, High Quantitative Bl 643.8 Result Comment: QUANTITATIVE HCG NORMAL RANGES Weeks of Gestation (Weeks Since LMP) 3 Weeks (5.8-71.2 mIU/mL) 4 Weeks (9.5-750 mIU/mL) 5 Weeks (217-7138 mIU/mL) 6 Weeks (158-91649 mIU/mL) 7 Weeks (3697-573072 mIU/mL) 8 Weeks (09668-470892 mIU/mL) 9 Weeks (94783-039813 mIU/mL) 10 Weeks (91627-666298 mIU/mL) 12 Weeks (26651-209862 mIU/mL) Referenced to 4th IS of [facility] Performed By: #### HCGQT #### [facility] [address] [place], [place] [address] PROGRESS Observed: 09/12/2018 Status: COMPLETED Source: [place] 10:56 AM [facility] REPOSITORY HNO ID: [id number] Author: Lino Huber Service: (none) Author Type: Pc Analyst Type: Progress Notes Filed: 09/13/2018 3:24 PM Note Text: Bernadette Faust is a 23 year old female who presents with the complaint of aching, dull and sharp pelvic pain for 4 days. Pain is LLQ . Patient was seen in [facility] ER for pain, concern for ectopic noted. Approximate LMP = 08/01/18, initial bhcg quant on 09/10/18 = 332. Currently having any pain? Yes LOCATION: LLQ PAIN SCALE: 8 on a scale of 0-10 PAIN CHARACTER: aching, dull and sharp DURATION: (How long have you had the pain?) 4 days FREQUENCY: (How often does the pain occur?) occurs intermittently AGGRAVATING FACTORS: activity, standing, walking, sitting, arising from a sitting position, lifting and twisting ALLEVIATING FACTORS: lying on the side with flexed knees Postmenopausal? No. Menstrual cycle every 28-40 days. Flow 3-5 days. Patient has +uhcg noted with approximate LMP beginning of July Heavy bleeding? No Intermenstrual spotting? No Post-coital bleeding? No History of fibroids? No Dysmenorrhea? No PMDD? No History of sexual abuse? No History of anxiety disorder? Yes History of STD? No Concern for exposure to STDs? No Symptoms suggestive of Irritable Bowel Syndrome? No - patient denies a hx of IBS. Denies current constipation though does report a hx of bowel obstruction. Dysuria, urinary frequency or urgency? No Recent weight change? No Contraception: none - patient has +uhcg PAST MEDICAL HISTORY Diagnosis Date - Acne - Breast cancer (HCC) - Chronic appendicitis 2005 S/P lap appendectomy. - Family history of defects 05/27/2013 05/27/2013 Father of the baby was born with a hole in his heart. No surgical correction needed. Father the baby's niece born with spina bifida. Patient's first cousin diagnosed with Asperger's Syndrome. TKRN - FRACTURE 2004 FOOT - Gestational diabetes 10/31/2013 - Stroke ([facility]) - Unspecified asthma(493.90) EXERCISE INDUCED PAST SURGICAL HISTORY Procedure Laterality Date - APPENDECTOMY summer 2005 - BREAST LUMPECTOMY HX - DANDC AFTER DELIVERY 01/03/14 3 days PP, delayed PP hemorrhage - EXCISION OF LINGUAL TONSIL 06/01 - PAST SURGICAL HISTORY OF left knee surgery FAMILY HISTORY Problem Relation Age of Onset - Allergies Father - Skin Cancer Father - Stroke Father - Skin Cancer Brother - Cancer Maternal Grandmother OVARIAN, great grandmother also - Prostate Cancer Maternal Grandfather LUNG AND PROSTRATE - Emphysema Maternal Grandfather - COPD Maternal Grandfather - other (cholecystitis) Sister - Diabetes Paternal Uncle - Diabetes Paternal Aunt Social History Marital status: Spouse name: DEVORA Years of education: 14 Number of children: Social History Main Topics Smoking status: Never Smoker Smokeless tobacco: Never Used Alcohol use: Yes Comment: occasionaly, NOT WHILE Drug use: No Sexual activity: Yes Partners with: Male Other Topics Concern No BLOOD TRANSFUSIONS No CAFFEINE No OCCUPATIONAL EXPOSURE No HOBBY HAZARD No SLEEP CONCERN No STRESS CONCERN No WEIGHT CONCERN No DIET No BACK CARE No EXERCISE Yes BIKE HELMET No SEAT BELT Yes SELF EXAMS No Social History Narrative Social History: , Estranged from her . Has a daughter born 2013. Patient denies tobacco use, EtOH use or experimentation with illegal drugs. BP 116/70 Wt 163 lb (73.9 kg) LMP 08/01/2018 (Within Days) BMI 27.12 kg/m? GENERAL: pleasant, female in no apparent distress HEENT: Normocephalic, atraumatic, mucus membranes moist and no lesions NECK: Supple, full range of motion, no adenopathy and thyroid normal DERMATOLOGY: Normal, without lesions, non-icteric and non-hirsute CHEST: Normal inspiratory effort ABDOMEN: soft, no masses and Mild tenderness in Generalized, LLQ. Negative rebound, positive guarding PELVIC: deferred BIMANUAL: deferred RECTOVAGINAL: deferred. NEURO: alert and oriented x3,exam grossly non-focal EXTREMITIES: normal Limited TVUS by auth specialist - see report: no IUP noted in uterus, thickened endometrium noted, +corpus luteum cyst noted Lt. Ovary. ASSESSMENT: LLQ pain - unknown etiology. Differential Dx: Ectopic , Bowel/Gas pain, Musculoskeletal or Ligament Pain PLAN: Pelvic US - done today. See Report Serial cg quants Call patient tomorrow with serial quant results and follow closely for possible ectopic . Lino Huber APRN.CNM CNOV Observed: 09/12/2018 Status: COMPLETED Source: [place] 10:45 AM [facility] REPOSITORY Office Visit (WOOB) BERNADETTE FAUST ([id number]) 1995 F Date Time Provider Department 09/12/18 10:45 AM LINO HUBER ([facility]) WOOB During your visit today, we recorded the following information about you: Blood pressure Weight Last Period 116/70 73.9 kg 08/01/18 Lino Huber APRN.CNM 09/13/2018 3:24 PM Signed Bernadette Faust is a 23 year old female who presents with the complaint of aching, dull and sharp pelvic pain for 4 days. Pain is LLQ . Patient was seen in [facility] ER for pain, concern for ectopic noted. Approximate LMP = 08/01/18, initial bhcg quant on 09/10/18 = 332. Currently having any pain? Yes LOCATION: LLQ PAIN SCALE: 8 on a scale of 0-10 PAIN CHARACTER: aching, dull and sharp DURATION: (How long have you had the pain?) 4 days FREQUENCY: (How often does the pain occur?) occurs intermittently AGGRAVATING FACTORS: activity, standing, walking, sitting, arising from a sitting position, lifting and twisting ALLEVIATING FACTORS: lying on the side with flexed knees Postmenopausal? No. Menstrual cycle every 28-40 days. Flow 3-5 days. Patient has +uhcg noted with approximate LMP beginning of July Heavy bleeding? No Intermenstrual spotting? No Post-coital bleeding? No History of fibroids? No Dysmenorrhea? No PMDD? No History of sexual abuse? No History of anxiety disorder? Yes History of STD? No Concern for exposure to STDs? No Symptoms suggestive of Irritable Bowel Syndrome? No - patient denies a hx of IBS. Denies current constipation though does report a hx of bowel obstruction. Dysuria, urinary frequency or urgency? No Recent weight change? No Contraception: none - patient has +uhcg PAST MEDICAL HISTORY Diagnosis Date - Acne - Breast cancer (HCC) - Chronic appendicitis 2005 S/P lap appendectomy. - Family history of defects 05/27/2013 05/27/2013 Father of the baby was born with a hole in his heart. No surgical correction needed. Father the baby's niece born with spina bifida. Patient's first cousin diagnosed with Asperger's Syndrome. TKRN - FRACTURE 2004 FOOT - Gestational diabetes 10/31/2013 - Stroke (HCC) - Unspecified asthma(493.90) EXERCISE INDUCED PAST SURGICAL HISTORY Procedure Laterality Date - APPENDECTOMY summer 2005 - BREAST LUMPECTOMY HX - DANDC AFTER DELIVERY 01/03/14 3 days PP, delayed PP hemorrhage - EXCISION OF LINGUAL TONSIL 06/01 - PAST SURGICAL HISTORY OF left knee surgery FAMILY HISTORY Problem Relation Age of Onset - Allergies Father - Skin Cancer Father - Stroke Father - Skin Cancer Brother - Cancer Maternal Grandmother OVARIAN, great grandmother also - Prostate Cancer Maternal Grandfather LUNG AND PROSTRATE - Emphysema Maternal Grandfather - COPD Maternal Grandfather - other (cholecystitis) Sister - Diabetes Paternal Uncle - Diabetes Paternal Aunt Social History Marital status: Spouse name: DEVORA Years of education: 14 Number of children: Social History Main Topics Smoking status: Never Smoker Smokeless tobacco: Never Used Alcohol use: Yes Comment: occasionaly, NOT WHILE Drug use: No Sexual activity: Yes Partners with: Male Other Topics Concern No BLOOD TRANSFUSIONS No CAFFEINE No OCCUPATIONAL EXPOSURE No HOBBY HAZARD No SLEEP CONCERN No STRESS CONCERN No WEIGHT CONCERN No DIET No BACK CARE No EXERCISE Yes BIKE HELMET No SEAT BELT Yes SELF EXAMS No Social History Narrative Social History: , Estranged from her . Has a daughter born 2013. Patient denies tobacco use, EtOH use or experimentation with illegal drugs. BP 116/70 Wt 163 lb (73.9 kg) LMP 08/01/2018 (Within Days) BMI 27.12 kg/m? GENERAL: pleasant, female in no apparent distress HEENT: Normocephalic, atraumatic, mucus membranes moist and no lesions NECK: Supple, full range of motion, no adenopathy and thyroid normal DERMATOLOGY: Normal, without lesions, non-icteric and non-hirsute CHEST: Normal inspiratory effort ABDOMEN: soft, no masses and Mild tenderness in Generalized, LLQ. Negative rebound, positive guarding PELVIC: deferred BIMANUAL: deferred RECTOVAGINAL: deferred. NEURO: alert and oriented x3,exam grossly non-focal EXTREMITIES: normal Limited TVUS by auth specialist - see report: no IUP noted in uterus, thickened endometrium noted, +corpus luteum cyst noted Lt. Ovary. ASSESSMENT: LLQ pain - unknown etiology. Differential Dx: Ectopic , Bowel/Gas pain, Musculoskeletal or Ligament Pain PLAN: Pelvic US - done today. See Report Serial [facility] quants Call patient tomorrow with serial quant results and follow closely for possible ectopic . Lino Huber APRN.YAWM Referring Provider: SELF [[id number]] Allergies As of Date: 09/12/2018 Noted Allergy Reaction LATEX 06/05/2018 16 - Unknown TAPE [Other] 11/23/2005 2 - Rash VERAPAMIL 06/05/2018 10 - Anaphylaxis Date Reviewed: 09/12/2018 Reviewed by: Ammy Lux Ma - Fully Assessed Reason for Visit: Follow Up [171] Primary Visit Diagnosis:Missed menses [N92.6] Order(s):OBSTETRIC ULTRASOUND [facility] [[id number]] Order #: [id number]: 1 HCG QUANTITATIVE [SQHCGQT] Order #: [id number] FUTURE Prescriptions as of 09/12/2018 Sig: ACETAMINOPHEN 500 MG TABLET Take 500 mg by mouth. [id number]* Take by mouth. CYCLOBENZAPRINE 10 MG TABLET Take 10 mg by mouth. ALBUTEROL SULFATE 2.5 MG/3 ML* CETIRIZINE 10 MG TABLET Take 10 mg by mouth. LAMOTRIGINE 100 MG TABLET MOMETASONE 220 MCG (60 DOSES)* Inhale as instructed. ONDANSETRON 4 MG DISINTEGRATI* SUMATRIPTAN 50 MG TABLET Take 50 mg by mouth. TRIAMCINOLONE ACETONIDE 55 MC* Use in the nose. GABAPENTIN 800 MG TABLET Take 800 mg by mouth three ti* DEXTROAMPHETAMINE-AMPHETAMINE* ALPRAZOLAM 0.5 MG TABLET PROMETHAZINE 25 MG TABLET Take 1 tablet by mouth every * MECLIZINE 25 MG TABLET Take 1 tablet by mouth every * EPINEPHRINE 0.3 MG/0.3 ML INJ* Use as directed prn allergic * BUPROPION HCL SR 150 MG TABLE* Take 1 tablet by mouth twice * BLOOD SUGAR DIAGNOSTIC STRIPS Test blood sugar(s) 3 times d* ALBUTEROL SULFATE HFA 90 MCG/* Inhale 2 Puffs as instructed * NAPROXEN 500 MG TABLET Take 1 tablet by mouth twice * ASPIRIN-CALCIUM CARBONATE 81 * Take 81 mg by mouth. TOPIRAMATE 25 MG TABLET HYDROXYZINE PAMOATE 25 MG CAP* Take 1 capsule by mouth three* METFORMIN 500 MG TABLET Take 1 tablet by mouth twice * Patient not taking: Reported on 06/05/2018 Problem List As Of Date 09/12/2018 Noted Resolved Inguinal hernia with obstruction, without menti*INVALID FOR*03/18/2013 PAIN GROIN (right) [R10.9] INVALID FOR*03/18/2013 Abdominal pain, right lower quadrant [R10.31] INVALID FOR*03/18/2013 LUMBAGO [M54.5] INVALID FOR* Headache [R51] INVALID FOR* TMJ (temporomandibular joint syndrome) [M26.609]INVALID FOR* Intermittent asthma with allergic rhinitis [J45*INVALID FOR* More... Family history of defects [Z82.79] INVALID FOR*10/07/2015 More... More... Rubella non-immune status, antepartum [O99.89, *INVALID FOR*02/11/2014 More... Gestational diabetes [O24.419] INVALID FOR*02/11/2014 More... Supervision of other high-risk (V23.89*INVALID FOR*02/11/2014 More... Type 2 diabetes mellitus without complication (*INVALID FOR* Anxiety [F41.9] INVALID FOR* Disposition: Return if symptoms worsen or fail to improve. Follow-up and Disposition History Recorded Encounter Status:Closed by LINO HUBER CNM on 09/13/18 US Observed: 09/11/2018 Status: F Source: [facility] TRANSVAGINAL 6:41 AM SYSTEM REPOSITORY Patient Name: BERNADETTE FAUST Ultrasound Exam Date/Time 09/11/2018 05:35:00 EST Exam US Transvaginal Ordering Physician [id number] EVANGELISTA Accession Number [id number] CPT4 Codes 07264 () Reason For Exam LLQ pain Report EXAM TYPE: US Transvaginal EXAM DATE AND TIME: 09/11/2018 5:35 AM EST INDICATION: 23 years Female with left lower quadrant pain. LMP is beginning of July. Beta-hCG level is 33 2 Letty. COMPARISON: None. TECHNIQUE: Ultrasonographic evaluation of the pelvis was performed including color flow and spectral Doppler imaging. FINDINGS: UTERUS: Uterus is retroverted and measures 9.8 x 7.7 x 4.7 cm. The endometrial echo complex measures 1.1 cm in diameter. No intrauterine gestational sac or pole is visualized. Subchorionic hemorrhage: None. Cervix: 3.9cm in length and closed. ADNEXA / OVARIES: No adnexal mass seen. Right ovary: 3.8 x 2.6 x 2.9 cm. Normal in size. Normal Doppler flow. Left ovary: 4.8 x 2.7 x 1.9 cm Normal in size. Normal Doppler flow. FREE FLUID: None. IMPRESSION: of unknown location. No intrauterine gestational sac identified. Ectopic is not excluded. Follow- up beta-hCG level and pelvic ultrasound is suggested. Report Dictated on Workstation: [id number] Final Dictated: 09/11/2018 6:41 am Dictating Physician: PIPER RFAZIER DO, I Signed Date and Time: 09/11/2018 6:45 am Signed by: PIPER FRAZIER DO, I Transcribed Date and Time: 09/11/2018 6:41 HCG QUANTITATIVE Collected: 09/11/2018 Status: F Source: [facility] 4:47 AM SYSTEM REPOSITORY TYPE CODE TESTS RESULT OUT OF RANGE REFERENCE UNITS LAB 3QWNT < 3 m[IU]/mL hCG Abnormal Quantitative 332 Performed By: #### QWNT #### [employer] [address] [place] [address] URINALYSIS,MACRO Collected: 09/11/2018 Status: F Source: [facility] 2:43 AM SYSTEM REPOSITORY TYPE CODE TESTS RESULT OUT OF REFERENCE UNITS RANGE LAB APPUR Clear NA Appearance Clear LAB COLUR Lt. Yellow NA Color Yellow LAB USG 1.005-1.030 NA Specific Normal [place],Urine 1.015 LAB UPH 5.0-8.0 NA pH,Urine Normal 5.0 LAB ULUK Negative NA Leukocytes Trace LAB UNIT Negative NA Nitrites NEG LAB UPRO Negative mg/dL Total Protein,Urine NEG LAB UGLU Negative mg/dL Glucose,Urine NEG (Normal) LAB UKET Negative mg/dL Ketone,Urine Negative LAB UURO 0-1 mg/dL Urobilinogen Normal (0.2) LAB UBIL Negative NA Bilirubin,Ur Negative LAB UBLD Negative {RBC}/uL Occult Blood,Ur Negative Performed By: #### UAMAC, HCGUR, UAMIC #### [employer] [address] [place] [address] HCG,URINE QUAL Collected: 09/11/2018 Status: F Source: [facility] 2:43 AM SYSTEM REPOSITORY TYPE CODE TESTS RESULT OUT OF REFERENCE UNITS RANGE LAB HCGUR Negative NA Positive HCG,Urine Qual Result Comment: is the most common reason for HCG in urine, although choriocarcinoma, hydatidiform mole, and certain nontropho- blastic malignancies also result in detectable urinary HCG levels. Sensitivity = 20mIU/mL. Performed By: #### UAMAC, HCGUR, UAMIC #### [facility] [address] [place] [address] URINALYSIS,MICROSCOPIC Collected: Status: F Source: [facility] 09/11/2018 2:43 AM [facility]ALTH SYSTEM REPOSITORY TYPE CODE TESTS RESULT OUT OF REFERENCE UNITS RANGE LAB VOLUR NA 12 Volume,Urine ml LAB WBCU 0-5 /[HPF] 0 WBC,Urine - 2 LAB RBCU 0-2 /[HPF] RBC,Urine Negative LAB EPIU 3-5 /[HPF] 0 Epithelial Cells - 2 LAB AMADO Negative NA Bacteria Few (1-5) Performed By: #### UAMAC, HCGUR, UAMIC #### [facility] [address] [place] [address] ED PROVIDER NOTE Observed: 09/11/2018 Status: F Source: [facility] 2:33 AM SYSTEM REPOSITORY Triage Chief Complaint: Abdominal Pain ALATNA: Bernadette Faust is a 23 y.o. female who presents to the emergency department as a transfer from [facility] for abdominal pain. She has been experiencing pain for the past day. She describes it as a sharp, stabbing sensation that waxes and wanes and it worse with movement. It is nonradiating and she has never experienced similar pain before. She has had associated nausea and 2 episodes of nonbloody emesis. 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 Her last menstrual period was in the beginning of July although she does not recall the exact date. She denies trauma, fevers, dysuria, hematuria, diarrhea, constipation, melena, hematochezia, vaginal bleeding and vaginal discharge. ROS: At least 10 systems reviewed and otherwise acutely negative except as in the ALATNA. Past Medical History: Diagnosis Date ? ADHD (attention deficit hyperactivity disorder) ? Anemia ? Anxiety ? Asthma ? Bipolar 1 disorder (HCC) ? Depression ? Diabetes mellitus (HCC) ? DM (diabetes mellitus screen) ? Headache ? PONV (postoperative nausea and vomiting) motion sickness ? TIA (transient ischemic attack) Past Surgical History: Procedure Laterality Date ? APPENDECTOMY ? BREAST SURGERY ductectomy left breast ? BREAST SURGERY left ? DILATION AND CURETTAGE OF UTERUS ? KNEE SURGERY ? TONSILLECTOMY AND ADENOIDECTOMY Family History Problem Relation Age of Onset ? No Known Problems Mother ? Heart Disease Father ? Stroke Father ? Cancer Paternal Uncle ovarian Social History Social History ? Marital status: Spouse name: N/A ? Number of children: N/A ? Years of education: N/A Occupational History ? Not on file. Social History Main Topics ? Smoking status: Never Smoker ? Smokeless tobacco: Never Used ? Alcohol use Yes Comment: rare ? Drug use: No ? Sexual activity: Not on file Other Topics Concern ? Not on file Social History Narrative ? No narrative on file No current facility-administered medications for this encounter. Current Outpatient Prescriptions Medication Sig Dispense Refill ? acetaminophen (TYLENOL) 500 MG tablet Take 1 tablet by mouth 4 times daily as needed for Pain 20 tablet 1 ? VENTOLIN HFA 108 (90 Base) MCG/ACT inhaler Inhale 2 puffs into the lungs every 4 hours as needed for Wheezing 18 g 3 ? cyclobenzaprine (FLEXERIL) 10 MG tablet Take 10 mg by mouth 3 times daily as needed for Muscle spasms ? tqmucnuqlc-ptmradaabjzry-kgdcghgs (FIORICET, ESGIC) 50-325-40 MG per tablet Take 1 tablet by mouth every 4 hours as needed for Headaches or Migraine ? gabapentin (NEURONTIN) 600 MG tablet Take 800 mg by mouth 3 times daily as needed (migraines).. ? norethindrone (LYZA) 0.35 MG tablet Take 1 tablet by mouth daily ? mometasone (ASMANEX 30 METERED DOSES) 220 MCG/INH inhaler Inhale 1 puff into the lungs daily 1 Inhaler 3 ? topiramate (TOPAMAX) 25 MG tablet TAKE 1 TABLET BY MOUTH TWICE DAILY FOR 1 WEEK; THEN INCREASE TO 2 TABLETS TWICE DAILY 60 tablet 11 ? triamcinolone (NASACORT ALLERGY 24HR) 55 MCG/ACT nasal inhaler 2 sprays by Nasal route daily 1 Inhaler 0 ? amphetamine-dextroamphetamine (ADDERALL XR) 20 MG extended release capsule TAKE ONE CAPSULE BY MOUTH EVERY MORNING 0 ? buPROPion (WELLBUTRIN XL) 150 MG extended release tablet Take 150 mg by mouth 2 times daily ? lamoTRIgine (LAMICTAL) 100 MG tablet Take 100 mg by mouth daily ? ALPRAZolam (XANAX) 0.5 MG tablet Take 0.5 mg by mouth 5 times daily . ? EPINEPHrine (EPIPEN) 0.3 MG/0.3ML SOAJ injection Inject 0.3 mLs into the muscle as needed ? Multiple Vitamins-Minerals (THERAPEUTIC MULTIVITAMIN-MINERALS) tablet Take 1 tablet by mouth daily ? aspirin 81 MG tablet Take 81 mg by mouth daily Allergies Allergen Reactions ? Latex Rash ? Verapamil Anaphylaxis ? Tape [Adhesive Tape] Rash Nursing Notes Reviewed Physical Exam: ED Triage Vitals [09/11/18 0238] Enc Vitals Group BP 119/77 Pulse 81 Resp 18 Temp 98.2 ?F (36.8 ?C) Temp Source Oral SpO2 99 % Weight 140 lb (63.5 kg) Height 5' 5 (1.651 m) Head Circumference Peak Flow Pain Score Pain Loc Pain Edu? Excl. in GC? GENERAL APPEARANCE: Awake and alert, resting comfortably in bed at the time of my exam. HEENT: Head is normocephalic and grossly atraumatic. There is no conjunctival pallor. Sclera are anicteric and noninjected. Mucous membranes of the mouth are moist. NECK: Trachea is midline. LUNGS: Clear to auscultation bilaterally without wheezing or rales. Good airflow. HEART: Regular rate and rhythm. S1-S2 noted. No murmurs auscultated. ABDOMEN: Abdomen was soft and nondistended. There was mild tenderness to palpation in the LLQ. There is no guarding or rebound. There is no mass. There is no CVA tenderness to palpation. MSK/EXTREMITIES: No acute deformities. Normal strength bilaterally in upper and lower extremities. Peripheral pulses are present and symmetric bilaterally. There is no peripheral edema. SKIN: Warm and dry. NEUROLOGICAL: Patient is awake, alert and oriented with normal speech and normal hearing. Patient is responding and cooperating appropriately to exam. Face is symmetrical. PSYCHIATRIC: Normal mood and affect. Good judgement. I have reviewed and interpreted all of the currently available lab results from this visit (if applicable): Results for orders placed or performed during the hospital encounter of 09/11/18 Urinalysis Result Value Ref Range Appearance Clear Clear NA Color, UA Yellow Lt. Yellow NA Specific [place], Urine 1.015 1.005 - 1.030 NA pH, Urine 5.0 5.0 - 8.0 NA LEUKOCYTES, UA Trace Negative NA Nitrite, Urine NEG Negative NA Total Protein, Urine NEG Negative mg/dL Glucose, Ur NEG (Normal) Negative mg/dL Ketones, Urine Negative Negative mg/dL Urobilinogen, Urine Normal (0.2) 0 - 1 mg/dL Bilirubin, Urine Negative Negative NA Occult Blood,Urine Negative Negative [RBC]/uL HCG Urine Qual Preg Result Value Ref Range HCG Urine Positive Negative NA Urinalysis with Microscopic Result Value Ref Range Urine Volume 12 ml NA WBC, UA 0-2 0 - 5 /[HPF] RBC, UA Negative 0 - 2 /[HPF] Epithelial Cells 0-2 3 - 5 /[HPF] Bacteria, UA Few (1-5) Negative NA HCG, Quantitative, Result Value Ref Range hCG Quant 332 (A) <3 m[IU]/mL Radiographs: Us Ob Transvaginal Result Date: 09/11/2018 Patient Name: BERNADETTE FAUST ---Ultrasound--- Exam Date/Time 09/11/2018 05:35:00 EST Exam US Transvaginal Ordering Physician [id number] CUNNINGHAM Accession Number [id number] CPT4 Codes 04992 () Reason For Exam LLQ pain Report EXAM TYPE: US Transvaginal EXAM DATE AND TIME: 09/11/2018 5:35 AM EST INDICATION: 23 years Female with left lower quadrant pain. LMP is beginning of July. Beta-hCG level is 33 2 Letty. COMPARISON: None. TECHNIQUE: Ultrasonographic evaluation of the pelvis was performed including color flow and spectral Doppler imaging. FINDINGS: UTERUS: Uterus is retroverted and measures 9.8 x 7.7 x 4.7 cm. The endometrial echo complex measures 1.1 cm in diameter. No intrauterine gestational sac or pole is visualized. Subchorionic hemorrhage: None. Cervix: 3.9cm in length and closed. ADNEXA / OVARIES: No adnexal mass seen. Right ovary: 3.8 x 2.6 x 2.9 cm. Normal in size. Normal Doppler flow. Left ovary: 4.8 x 2.7 x 1.9 cm Normal in size. Normal Doppler flow. FREE FLUID: None. IMPRESSION: of unknown location. No intrauterine gestational sacidentified. Ectopic is not excluded. Follow-up beta-hCG level and pelvic ultrasound is suggested. Report Dictated on Workstation: [id number] --- Final --- Dictated: 09/11/2018 6:41 am Dictating Physician: FREDDIE DO, PIPER I Signed Date and Time: 09/11/2018 6:45 am Signed by: PIPER FRAZIER DO I Transcribed Date and Time: 09/11/2018 6:41 MDM: Based on the above history and physical exam, I am most concerned about ectopic . Review of the labs obtained prior to transfer are within normal limits except for a positive test. Transvaginal ultrasound and quantitative hCG was ordered. HCG is low at 332. Ultrasound shows no evidence of intrauterine , free fluid or adnexal mass. On re-evaluation, the patient has remained stable and her pain is well controlled. I have explained to her the above findings and that I maintain a high suspicion for ectopic . I explained to her the importance of following up with [facility] in 48 hours in order to have a repeat quantitative hCG drawn. She has expressed her understanding therefore she was discharged home in stable condition. The pin drafting machine tender service was contacted and made aware of the patient and our findings. They are expecting to see her in clinic in 2 days. Clinical Impression: 1. Acute abdominal pain in , concern for ectopic Comment: Please note this report has been produced using speech recognition software and may contain errors related to that system including errors in grammar, punctuation, and spelling, as well as words and phrases that may be inappropriate. If there are any questions or concerns please feel free to contact the dictating provider for clarification. Cathy Ya MD 09/11/181926 HCG,URINE QUAL Collected: 07/27/2018 Status: F Source: [facility] 6:22 PM SYSTEM REPOSITORY TYPE CODE TESTS RESULT OUT OF REFERENCE UNITS RANGE LAB HCGUR Negative NA Negative HCG,Urine Qual Result Comment: is the most common reason for HCG in urine, although choriocarcinoma, hydatidiform mole, and certain nontropho- blastic malignancies also result in detectable urinary HCG levels. Sensitivity = 20mIU/mL. Performed By: #### HCGUR #### [employer] [address] [place] [address] HCG QUAL PREG Collected: 07/27/2018 Status: F Source: [facility] 5:38 PM SYSTEM REPOSITORY TYPE CODE TESTS RESULT OUT OF RANGE REFERENCE UNITS LAB QWLC m[IU]/mL Normal hCG NEGATIVE Qual Preg Result Comment: REF RANGE: Negative .... < 3 Questionable Rpt 48-72 Hr Positive ..... > 10 Performed By: #### QWAL #### [address] [address] [place] Observed: 06/07/2018 Status: COMPLETED Source: [place] 12:00 AM [facility] REPOSITORY Telephone ([facility]FLD) CHRISTIANNEBERNADETTE Yolanda ([id number]) 1995 F Date Time Provider Department 06/07/18 [facility] During your visit today, we recorded the following information about you: Romana VALLES 06/07/2018 1:47 PM Signed Sent to [facility] via [place]. [place] [id number] Patient advised [facility] will call them to set this up. Mary Fajardo PSR Romana Fajardo PSR 06/13/2018 9:53 AM Signed Appointment Attempted To Be Scheduled With: [facility] Allergies As of Date: 06/07/2018 Noted Allergy Reaction LATEX 06/05/2018 16 - Unknown TAPE [Other] 11/23/2005 2 - Rash VERAPAMIL 06/05/2018 10 - Anaphylaxis Date Reviewed: 06/05/2018 Reviewed by: Taylor Siu - Fully Assessed Reason for Visit: Referral Request-referral information [Other] Cmt: sent to [facility] via email-pt needs Rheumatology consult Reason For Visit History Recorded Primary Visit Diagnosis:Elevated antinuclear antibody (BARTOLO) level [R76.8] Order(s):CONSULT TO RHEUM/IMMUN DISEASE [9039] Order #: [id number]: 1 Prescriptions as of 06/07/2018 Sig: ALBUTEROL SULFATE 2.5 MG/3 ML* ASPIRIN-CALCIUM CARBONATE 81 * Take 81 mg by mouth. CETIRIZINE 10 MG TABLET Take 10 mg by mouth. LAMOTRIGINE 100 MG TABLET MOMETASONE 220 MCG (60 DOSES)* Inhale as instructed. ONDANSETRON 4 MG DISINTEGRATI* SUMATRIPTAN 50 MG TABLET Take 50 mg by mouth. TOPIRAMATE 25 MG TABLET TRIAMCINOLONE ACETONIDE 55 MC* Use in the nose. GABAPENTIN 800 MG TABLET Take 800 mg by mouth three ti* DEXTROAMPHETAMINE-AMPHETAMINE* ALPRAZOLAM 0.5 MG TABLET PROMETHAZINE 25 MG TABLET Take 1 tablet by mouth every * MECLIZINE 25 MG TABLET Take 1 tablet by mouth every * HYDROXYZINE PAMOATE 25 MG CAP* Take 1 capsule by mouth three* EPINEPHRINE 0.3 MG/0.3 ML INJ* Use as directed prn allergic * METFORMIN 500 MG TABLET Take 1 tablet by mouth twice * Patient not taking: Reported on 06/05/2018 BUPROPION HCL SR 150 MG TABLE* Take 1 tablet by mouth twice * BLOOD SUGAR DIAGNOSTIC STRIPS Test blood sugar(s) 3 times d* ALBUTEROL SULFATE HFA 90 MCG/* Inhale 2 Puffs as instructed * NAPROXEN 500 MG TABLET Take 1 tablet by mouth twice * Problem List As Of Date 06/07/2018 Noted Resolved Inguinal hernia with obstruction, without menti*INVALID FOR*03/18/2013 PAIN GROIN (right) [R10.9] INVALID FOR*03/18/2013 Abdominal pain, right lower quadrant [R10.31] INVALID FOR*03/18/2013 LUMBAGO [M54.5] INVALID FOR* Headache [R51] INVALID FOR* TMJ (temporomandibular joint syndrome) [M26.609]INVALID FOR* Intermittent asthma with allergic rhinitis [J45*INVALID FOR* More... Family history of defects [Z82.79] INVALID FOR*10/07/2015 More... More... Rubella non-immune status, antepartum [O99.89, *INVALID FOR*02/11/2014 More... Gestational diabetes [O24.419] INVALID FOR*02/11/2014 More... Supervision of other high-risk (V23.89*INVALID FOR*02/11/2014 More... Type 2 diabetes mellitus without complication (*INVALID FOR* Anxiety [F41.9] INVALID FOR* Encounter Status:Closed by TAYLOR SIU MD on 06/07/18 CNPN Observed: 06/06/2018 Status: COMPLETED Source: [place] 12:00 AM [facility] REPOSITORY Telephone ([facility]FLD) BERNADETTE FAUST ([id number]) 1995 F Date Time Provider Department 06/06/18 TAYLOR SIU [facility] During your visit today, we recorded the following information about you: Taylor Siu MD 06/06/2018 1:29 PM Signed Lupus screen came back abnormal-this does not mean patient has lupus but connective tissue disease should be ruled out and she should be further evaluated. If she agrees and would like to send her to a composition tile layer Gaby Roberson Ma 06/06/2018 1:32 PM Signed Left message on machine for patient to call office. Gaby Roberson Ma June 06, 2018 1:32 PM Dennise Dominguez,RN, RN 06/07/2018 9:39 AM Addendum Pt agrees, please refer. Also, pt is asking about biopsy result, appears to be back. Please advise. Taylor Siu MD 06/07/2018 12:17 PM Signed Biopsy showed scar possibly a keloid which is an overgrown scar. Treatment for this would be either strong topical steroids or injection of steroid to flattened it. It may or may not be considered cosmetic by patient's insurance. She can call to check. I will make referral to composition tile layer Gaby Roberson Ma 06/07/2018 1:09 PM Signed No answer, voicemail full. Dennise DominguezRN, RN 06/08/2018 12:19 PM Signed vm full 06/08 Dennise DominguezRN, RN 06/08/2018 4:30 PM Signed Pt notified. Allergies As of Date: 06/06/2018 Noted Allergy Reaction LATEX 06/05/2018 16 - Unknown TAPE [Other] 11/23/2005 2 - Rash VERAPAMIL 06/05/2018 10 - Anaphylaxis Date Reviewed: 06/05/2018 Reviewed by: Taylor Siu - Fully Assessed Reason for Visit: Lab AND Test Results [246] Prescriptions as of 06/06/2018 Sig: ALBUTEROL SULFATE 2.5 MG/3 ML* ASPIRIN-CALCIUM CARBONATE 81 * Take 81 mg by mouth. CETIRIZINE 10 MG TABLET Take 10 mg by mouth. LAMOTRIGINE 100 MG TABLET MOMETASONE 220 MCG (60 DOSES)* Inhale as instructed. ONDANSETRON 4 MG DISINTEGRATI* SUMATRIPTAN 50 MG TABLET Take 50 mg by mouth. TOPIRAMATE 25 MG TABLET TRIAMCINOLONE ACETONIDE 55 MC* Use in the nose. GABAPENTIN 800 MG TABLET Take 800 mg by mouth three ti* DEXTROAMPHETAMINE-AMPHETAMINE* ALPRAZOLAM 0.5 MG TABLET PROMETHAZINE 25 MG TABLET Take 1 tablet by mouth every * MECLIZINE 25 MG TABLET Take 1 tablet by mouth every * HYDROXYZINE PAMOATE 25 MG CAP* Take 1 capsule by mouth three* EPINEPHRINE 0.3 MG/0.3 ML INJ* Use as directed prn allergic * METFORMIN 500 MG TABLET Take 1 tablet by mouth twice * Patient not taking: Reported on 06/05/2018 BUPROPION HCL SR 150 MG TABLE* Take 1 tablet by mouth twice * BLOOD SUGAR DIAGNOSTIC STRIPS Test blood sugar(s) 3 times d* ALBUTEROL SULFATE HFA 90 MCG/* Inhale 2 Puffs as instructed * NAPROXEN 500 MG TABLET Take 1 tablet by mouth twice * Problem List As Of Date 06/06/2018 Noted Resolved Inguinal hernia with obstruction, without menti*INVALID FOR*03/18/2013 PAIN GROIN (right) [R10.9] INVALID FOR*03/18/2013 Abdominal pain, right lower quadrant [R10.31] INVALID FOR*03/18/2013 LUMBAGO [M54.5] INVALID FOR* Headache [R51] INVALID FOR* TMJ (temporomandibular joint syndrome) [M26.609]INVALID FOR* Intermittent asthma with allergic rhinitis [J45*INVALID FOR* More... Family history of defects [Z82.79] INVALID FOR*10/07/2015 More... More... Rubella non-immune status, antepartum [O99.89, *INVALID FOR*02/11/2014 More... Gestational diabetes [O24.419] INVALID FOR*02/11/2014 More... Supervision of other high-risk (V23.89*INVALID FOR*02/11/2014 More... Type 2 diabetes mellitus without complication (*INVALID FOR* Anxiety [F41.9] INVALID FOR* Encounter Status:Closed by TAYLOR SIU MD on 06/06/18 ALBUMIN/CREAT RATIO Collected: 06/05/2018 Status: F Source: [place] 12:11 PM [facility] REPOSITORY TYPE CODE TESTS RESULT OUT OF REFERENCE UNITS RANGE LAB UCRR 20-300 mg/dL 134.1 Creatinine,Ur ine,Ran LAB UALBR 0.0-23.0 mg/L <12.0 Albumin Urine Random LAB UALBCR 0-30 mg/g Not Albumin/Creat calculated Ratio Performed By: #### UACR #### [facility] [address] [place] [id number] COMP METABOLIC PANEL Collected: 06/05/2018 Status: F Source: [place] 12:11 PM [facility] REPOSITORY TYPE CODE TESTS RESULT OUT OF REFERENCE UNITS RANGE LAB TP 6.3-8.0 g/dL Protein, Total 6.9 LAB ALB 3.9-4.9 g/dL Albumin 4.5 LAB CA 8.5-10.2 mg/dL Calcium, Total 9.6 LAB TBIL 0.2-1.3 mg/dL Low Bilirubin, Total <0.2 LAB ALKP 32-117 U/L Alkaline Phosphatase 68 LAB AST 13-35 U/L Low AST 12 LAB GLU 74-99 mg/dL Glucose High 186 Result Comment: The [place] Diabetes Association (ADA) provides guidance for cutoff values for fasting glucose and random glucose. The ADA defines fasting as no caloric intake for at least 8 hours. Fas ting plasma glucose results between 100 to 125 mg/dL indicate increased risk for diabetes (prediabetes). Fasting plasma glucose results greater than or equal to 126 mg/dL meet the criteria for diagnosis of diabetes. In the absence of unequivocal hyperglycemia, results should be confirmed by repeat testing. In a patient with classic symptoms of hyperglycemia or hyperglycemic crisis, random plasma glucose results greater than or equal to 200 mg/dL meet the criteria for diagnosis of diabetes. Reference: Standards of Medical Care in Diabetes 2016, [place] Diabetes Association. Diabetes Care. 2016.39(Suppl 1). LAB BUN 7-21 mg/dL BUN 8 LAB CRET 0.58-0.96 mg/dL Creatinine 0.74 LAB NA 136-144 mmol/L Sodium 141 LAB K 3.7-5.1 mmol/L Potassium 4.2 LAB CL 97-105 mmol/L Chloride 100 LAB CO2 22-30 mmol/L CO2 25 LAB AGAP 9-18 mmol/L Anion Gap 16 LAB ALT 7-38 U/L ALT 11 LAB GFRAA eGFR- Amer. >60 LAB GFRNAA . eGFR-All Other Races >60 Result Comment: eGFR (Estimated GFR) Units of measure: mL/min/1.73 meters squared eGFR is derived from the reexpressed MDRD Study equation using the following parameters: serum creatinine, age, gender and race. The creatinine assay has been calibrated to be traceable to IDMS. An eGFR <60 mL/min/1.73m2 for >3 months is consistent with chronic kidney disease. Refer to KDOQI guidelines for clinical interpretation. In patients with unstable renal function, e.g. those with acute kidney injury, the eGFR may not accurately reflect actual GFR. Performed By: #### CMP, LIPB, HBA1C #### [facility] [address], [place] [address] LIPID PANEL, BASIC Collected: 06/05/2018 Status: F Source: [place] 12:11 PM [facility] REPOSITORY TYPE CODE TESTS RESULT OUT OF REFERENCE UNITS RANGE LAB CHOL <200 mg/dL Cholesterol 159 Result Comment: <200 mg/dL, Desirable 200-239 mg/dL, Borderline high >239 mg/dL, High LAB TRIGLY <150 mg/dL Triglyceride 97 Result Comment: <150 mg/dL, Normal 150-199 mg/dL, Borderline high 200-499 mg/dL, High >499 mg/dL, Very high LAB HDL >39 mg/dL HDL-Cholesterol 63 Result Comment: 40-59 mg/dL, Acceptable >59 mg/dL, High: Negative risk factor for coronary heart disease <40 mg/dL, Low: Positive risk factor for coronary heart disease LAB LDL <100 mg/dL LDL-Cholesterol 77 Result Comment: <100 mg/dL, Optimal 100-129 mg/dL, Near optimal/above optimal 130-159 mg/dL, Borderline high 160-189 mg/dL, High >189 mg/dL, Very high Secondary prevention optimal LDL Cholesterol levels are recommended to be < 70 mg/dL LAB NONHDL <130 mg/dL Non HDL Cholesterol 96 Result Comment: <130 mg/dL, Optimal 130-159 mg/dL, Near optimal/above optimal 160-189 mg/dL, Borderline high 190-219 mg/dL, High >219 mg/dL, Very high Secondary prevention optimal non HDL Cholesterol levels are recommended to be < 100 mg/dL LAB FT hrs Fasting Time 0 LAB VLDL <30 mg/dL VLDL Cholesterol 19 LAB TCHDL <5.10 TC:HDL Ratio 2.52 LAB LDLHDL <2.54 LDL:HDL Ratio 1.22 Result Comment: Reference: 1. National Cholesterol Education Program ATP III Guideline At-A-Glance Quick Desk Reference: National Heart, Lung, and Blood [place]. National Institutes of Health. 2001: NIH Publication No. 01-3305. 2. An International Atherosclerosis Society position paper: global recommendations for the management of dyslipidemia: executive summary, Atherosclerosis. 2014: 232(2):410-413. Performed By: #### CMP, LIPB, HBA1C #### [facility] [address] [place] [id number] HEMOGLOBIN A1C Collected: 06/05/2018 Status: F Source: [place] 12:11 PM [facility] REPOSITORY TYPE CODE TESTS RESULT OUT OF REFERENCE UNITS RANGE LAB HGBA1C 4.3-5.6 % High Hemoglobin A1c 6.5 LAB HBA0 mg/dL Est. Average Glucose 140 Result Comment: eAG: (Estimated average glucose) is a calculated value from HgbA1c and is solar sales representative and assessor of the average blood glucose level in the last 2-3 month period. Performed By: #### CMP, LIPB, HBA1C #### [facility] [address] [place] [id number] BARTOLO Collected: 06/05/2018 Status: F Source: [place] 12:11 PM [facility] REPOSITORY TYPE CODE TESTS RESULT OUT OF RANGE REFERENCE UNITS LAB ANAQL Negative Abnormal Alert BARTOLO Positive by EIA, Qual Result Comment: Results are to be used as an aid to diagnosis. Confirmation testing for specific antibodies should be run if a positive assay is obtained. A positive result suggests certain diseases and should be confirmed by clinical findings. LAB ANAEIA OD Ratio BARTOLO by 1.2 EIA Result Comment: OD Ratio is interpreted as follows: Negative <1.0 Positive >=1.0 Performed By: #### ANAS #### [facility] [address] [place], [place] [address] PROGRESS Observed: 06/05/2018 Status: COMPLETED Source: [place] 12:00 PM [facility] [place] REPOSITORY HNO ID: [id number] Author: Taylor Siu Service: (none) Author Type: Physician Type: Progress Notes Filed: 06/05/2018 12:11 PM Note Text: Patient presents with: Dermatitis: scattered body, itching and burning , change in color INFORMED CONSENT Bernadette Yolanda Faust Medical Record: [id number] Procedure: Shave biopsy The risks, benefits and anticipated outcomes of the procedure, the risks and benefits of the alternatives to the procedure, and the roles and tasks of the personnel to be involved were discussed with the patient who consents to the procedure and agrees to proceed. I verify that I personally obtained Bernadette Faust's consent. Taylor Siu MD June 05, 2018 12:00 PM DEPARTMENT OF DERMATOLOGY [facility] UNIVERSAL PROTOCOL / SAFETY CHECKLIST Procedure to be performed: shave biopsy Sign in Communication: Completed Time Out: Team Confirms the Correct Patient, Correct Procedure, Correct Site and Site Marking, Correct Position (if applicable), Prep and Dry Time (if applicable). Time: Few minutes prior to procedure Affirmation of Time Out: YES Sign Out Discussion: Completed Taylor Siu MD Patient is alert oriented ?3, not in apparent distress Ravine firm nodules and plaques in white healed flat scars on bilateral upper arms, healed flat white scars scattered on chest arms and lower extremities, back spared Patient denies photosensitivity, she has history of a CVA and breast cancer- never seen by rheumatology or oncology or genetic councellor Discussed with patient the procedure and risks which include bleeding, infection and scarring. The area(s) was/were identified, prepped with alcohol and anesthetized with 1% Lidocaine, total amount of 0.5 ml. A sterile # 15 blade was used to remove a solar sales representative and assessor portion of the lesion. Hemostasis was achieved with Monsel's solution, the site(s) was(were) dressed with an adhesive dressing. Size of biopsy site was approximately 0.5 cm in diameter each. Biopsy site is right upper arm, photo taken with patient's permission. Patient tolerated procedure well, without complications and post care instructions were given. Pt will be notified with pathology results. Will check BARTOLO today Taylor Siu MD RTC pending path or 3 months SURGICAL PATHOLOGY Observed: 06/05/2018 Status: F Source: [place] 12:00 PM [facility] REPOSITORY Specimen originated from [facility] Specimen #: [id number] Submitting Physician: TAYLOR SIU MD FINAL DIAGNOSIS A. Skin, right upper arm, shave biopsy - Scar, see comment. SDB/melissa 06/06/2018 COMMENT In the appropriate clinical context, this could represent a superficially sampled keloid. Roby Albarado M.D. (Electronic Signature) SPECIMEN SUBMITTED A: SKIN, RIGHT UPPER ARM, SHAVE BIOPSY CLINICAL DATA r/o keloid vs sle GROSS DESCRIPTION A. Received in formalin is a 0.7 x 0.4 x 0.1 cm shave of skin. On the skin surface is a 0.7 cm, cee slightly elevated area. The specimen is bisected. Totally submitted in formalin in one cassette. Gross examination performed at [facility], [address] [place] [address] 06/06/2018 2:34:08 AM Date of Report: 06/06/2018 Date of Procedure: 06/05/2018 Date of Receipt: 06/05/2018 Submitted by: TAYLOR SIU MD Location: [facility] Diagnostic interpretation performed at [address] [address]. CNOV Observed: 06/05/2018 Status: COMPLETED Source: [place] 11:20 AM [facility] REPOSITORY Office Visit ([facility]FLD) BERNADETTE FAUST ([id number]) 1995 F Date Time Provider Department 06/05/18 11:20 AM [facility] During your visit today, we recorded the following information about you: Temperature Respiration Weight Last Period 98.7 degrees 16/minute 69.5 kg 05/05/18 Taylor Siu MD 06/05/2018 11:58 AM Signed CARE INSTRUCTIONS AFTER BIOPSY WITHOUT SUTURES 1.) Keep the area clean and dry with the band-aid in place the day of surgery. 2.) The next day you may bathe or shower as usual. Do not wear a wet band-aid on the wound. 3.) Remove the band-aid daily. Wash gently with soap and water and pat dry. Apply vaseline and cover with a band-aid for 5 days. 4.) Then leave the wound open to air, but continue to apply Vaseline for the next few days or until completely healed (could take 2-3 weeks depending on the size of the biopsy site). 5.) DO NOT USE NEOSPORIN as there is a fairly high incidence of allergic response to this product.. Taylor Siu MD 06/05/2018 12:11 PM Signed Patient presents with: Dermatitis: scattered body, itching and burning , change in color INFORMED CONSENT Bernadette Faust Medical Record: [id number] Procedure: Shave biopsy The risks, benefits and anticipated outcomes of the procedure, the risks and benefits of the alternatives to the procedure, and the roles and tasks of the personnel to be involved were discussed with the patient who consents to the procedure and agrees to proceed. I verify that I personally obtained Bernadette Faust's consent. Taylor Siu MD June 05, 2018 12:00 PM DEPARTMENT OF DERMATOLOGY [facility] UNIVERSAL PROTOCOL / SAFETY CHECKLIST Procedure to be performed: shave biopsy Sign in Communication: Completed Time Out: Team Confirms the Correct Patient, Correct Procedure, Correct Site and Site Marking, Correct Position (if applicable), Prep and Dry Time (if applicable). Time: Few minutes prior to procedure Affirmation of Time Out: YES Sign Out Discussion: Completed Taylor Siu MD Patient is alert oriented ?3, not in apparent distress [place] firm nodules and plaques in white healed flat scars on bilateral upper arms, healed flat white scars scattered on chest arms and lower extremities, back spared Patient denies photosensitivity, she has history of a CVA and breast cancer- never seen by rheumatology or oncology or genetic councellor Discussed with patient the procedure and risks which include bleeding, infection and scarring. The area(s) was/were identified, prepped with alcohol and anesthetized with 1% Lidocaine, total amount of 0.5 ml. A sterile # 15 blade was used to remove a solar sales representative and assessor portion of the lesion. Hemostasis was achieved with Monsel's solution, the site(s) was(were) dressed with an adhesive dressing. Size of biopsy site was approximately 0.5 cm in diameter each. Biopsy site is right upper arm, photo taken with patient's permission. Patient tolerated procedure well, without complications and post care instructions were given. Pt will be notified with pathology results. Will check BARTOLO today Taylor Siu MD RTC pending path or 3 months Referring Provider: SELF [[id number]] Allergies As of Date: 06/05/2018 Noted Allergy Reaction LATEX 06/05/2018 16 - Unknown TAPE [Other] 11/23/2005 2 - Rash VERAPAMIL 06/05/2018 10 - Anaphylaxis Date Reviewed: 06/05/2018 Reviewed by: Taylor Siu - Fully Assessed Reason for Visit: Dermatitis [535] Cmt: scattered body, itching and burning , change in color Primary Visit Diagnosis:Chronic dermatitis [L30.9] Order(s):BARTOLO BLOOD [SQANAS] Order #: [id number] FUTURE SURGICAL PATHOLOGY [[id number]] Order #: [id number] Prescriptions as of 06/05/2018 Sig: ALBUTEROL SULFATE 2.5 MG/3 ML* ASPIRIN-CALCIUM CARBONATE 81 * Take 81 mg by mouth. CETIRIZINE 10 MG TABLET Take 10 mg by mouth. LAMOTRIGINE 100 MG TABLET MOMETASONE 220 MCG (60 DOSES)* Inhale as instructed. ONDANSETRON 4 MG DISINTEGRATI* SUMATRIPTAN 50 MG TABLET Take 50 mg by mouth. TOPIRAMATE 25 MG TABLET TRIAMCINOLONE ACETONIDE 55 MC* Use in the nose. GABAPENTIN 800 MG TABLET Take 800 mg by mouth three ti* DEXTROAMPHETAMINE-AMPHETAMINE* ALPRAZOLAM 0.5 MG TABLET PROMETHAZINE 25 MG TABLET Take 1 tablet by mouth every * MECLIZINE 25 MG TABLET Take 1 tablet by mouth every * HYDROXYZINE PAMOATE 25 MG CAP* Take 1 capsule by mouth three* EPINEPHRINE 0.3 MG/0.3 ML INJ* Use as directed prn allergic * BUPROPION HCL SR 150 MG TABLE* Take 1 tablet by mouth twice * BLOOD SUGAR DIAGNOSTIC STRIPS Test blood sugar(s) 3 times d* ALBUTEROL SULFATE HFA 90 MCG/* Inhale 2 Puffs as instructed * NAPROXEN 500 MG TABLET Take 1 tablet by mouth twice * METFORMIN 500 MG TABLET Take 1 tablet by mouth twice * Patient not taking: Reported on 06/05/2018 Problem List As Of Date 06/05/2018 Noted Resolved Inguinal hernia with obstruction, without menti*INVALID FOR*03/18/2013 PAIN GROIN (right) [R10.9] INVALID FOR*03/18/2013 Abdominal pain, right lower quadrant [R10.31] INVALID FOR*03/18/2013 LUMBAGO [M54.5] INVALID FOR* Headache [R51] INVALID FOR* TMJ (temporomandibular joint syndrome) [M26.609]INVALID FOR* Intermittent asthma with allergic rhinitis [J45*INVALID FOR* More... Family history of defects [Z82.79] INVALID FOR*10/07/2015 More... More... Rubella non-immune status, antepartum [O99.89, *INVALID FOR*02/11/2014 More... Gestational diabetes [O24.419] INVALID FOR*02/11/2014 More... Supervision of other high-risk (V23.89*INVALID FOR*02/11/2014 More... Type 2 diabetes mellitus without complication (*INVALID FOR* Anxiety [F41.9] INVALID FOR* Other instructions from your clinician: CARE INSTRUCTIONS AFTER BIOPSY WITHOUT SUTURES 1.) Keep the area clean and dry with the band-aid in place the day of surgery. 2.) The next day you may bathe or shower as usual. Do not wear a wet band-aid on the wound. 3.) Remove the band-aid daily. Wash gently with soap and water and pat dry. Apply vaseline and cover with a band-aid for 5 days. 4.) Then leave the wound open to air, but continue to apply Vaseline for the next few days or until completely healed (could take 2-3 weeks depending on the size of the biopsy site). 5.) DO NOT USE NEOSPORIN as there is a fairly high incidence of allergic response to this product.. Encounter Status:Closed by TAYLOR SIU MD on 06/05/18 PROGRESS Observed: 06/01/2018 Status: COMPLETED Source: [place] 2:07 PM [facility] REPOSITORY HNO ID: [id number] Author: Elida Patel Service: (none) Author Type: Endless Track Vehicle Mechanic Type: Progress Notes Filed: 06/01/2018 2:08 PM Note Text: The patient has been identified by name and date of : YES I have scheduled the patient for an appointment on 06/06/2018. The patient will report to the lab prior to the visit. I have pended the following lab orders: PHMA Documentation 09/20/2017 06/01/2018 Opts out of [facility] No No Appointments Scheduled - Scheduled CP Appt DM2 with No FRANK - Record Requested Opthy Appt - No DM2 with No Urine Alb Lab Ordered Lab Ordered DM2 with No DFE Record Requested Record Requested Pneumoccal Vaccination Record Requested - Elida Patel MA PROGRESS Observed: 05/31/2018 Status: COMPLETED Source: [place] 3:37 PM [facility] REPOSITORY HNO ID: [id number] Author: Marlo St Service: (none) Author Type: Nurse Practitioner Type: Progress Notes Filed: 06/01/2018 2:08 PM Note Text: Orders filed. 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 lab PSR Action/FYI: patient needs appointment eye exam Teamlet has identified patient by name and date of . Team: Debby Soto MA, Elida Patel MA, MICHELET Jones, Dr. Becky Sotelo, Carina Adhikari PSR ? Last Office Visit:12/27/2017 ? Next Office Visit: Visit date not found ? Last BP/Labs: Blood Pressure: Last 3 Encounter BP Readings: Date: BP: 04/16/2017 102/62 01/13/2017 124/70 09/27/2016 100/80 Lipids: Cholesterol, Total (mg/dL) Date Value 03/18/2013 143 HDL Cholesterol (mg/dL) Date Value 03/18/2013 61 LDL Cholesterol (mg/dL) Date Value 03/18/2013 72 Triglyceride (mg/dL) Date Value 03/18/2013 51 HGB A1C: Lab Results Component Value Date HBA1C 7.1 09/27/2016 TSH: TSH (uU/mL) Date Value 09/27/2016 0.599 04/09/2014 1.060 ) Care Gap: DM - Need Urine Albumin / NOT checked in last 12 months Needs dilated eye exam - HM overdue Has CrCl < 60ml/min and does NOT have Hemoglobin or Hematocrit in last 12 months Plan: ? Confirm PCP / Status ? Type of appointment needed: follow up ? Consultation Appointments: No patient outreach needed at this time ? Labs, HM and Immunization: Labs: Albumin Creatinine Urine CBC (Diff or PLT) CMP HGB A1C Lead (PEDS) Diabetic Eye Exam Diabetic Foot Exam Elida Patel MA CNPTOUTREACH Observed: 05/31/2018 Status: COMPLETED Source: [place] 12:00 AM [facility] REPOSITORY Patient Outreach (FAMPWS) BERNADETTE FAUST ([id number]) 1995 F Date Time Provider Department 05/31/18 ELIDA PATEL) FAMMyronWS During your visit today, we recorded the following information about you: Elida Patel MA 06/01/2018 2:08 PM Signed PHMA TEAMLET DOCUMENTATION Provider Action/FYI: Patient needs appointment, needs labs ordered, needs Foot and Eye exam. lab PSR Action/FYI: patient needs appointment eye exam Teamlet has identified patient by name and date of . Team: Debby Soto MA, Elida Patel MA, MICHELET Jones, Dr. Becky Sotelo, Carina Adhikari PSR ? Last Office Visit:12/27/2017 ? Next Office Visit: Visit date not found ? Last BP/Labs: Blood Pressure: Last 3 Encounter BP Readings: Date: BP: 04/16/2017 102/62 01/13/2017 124/70 09/27/2016 100/80 Lipids: Cholesterol, Total (mg/dL) Date Value 03/18/2013 143 HDL Cholesterol (mg/dL) Date Value 03/18/2013 61 LDL Cholesterol (mg/dL) Date Value 03/18/2013 72 Triglyceride (mg/dL) Date Value 03/18/2013 51 HGB A1C: Lab Results Component Value Date HBA1C 7.1 09/27/2016 TSH: TSH (uU/mL) Date Value 09/27/2016 0.599 04/09/2014 1.060 ) Care Gap: DM - Need Urine Albumin / NOT checked in last 12 months Needs dilated eye exam - HM overdue Has CrCl < 60ml/min and does NOT have Hemoglobin or Hematocrit in last 12 months Plan: ? Confirm PCP / Status ? Type of appointment needed: follow up ? Consultation Appointments: No patient outreach needed at this time ? Labs, HM and Immunization: Labs: Albumin Creatinine Urine CBC (Diff or PLT) CMP HGB A1C Lead (PEDS) Diabetic Eye Exam Diabetic Foot Exam JEAN Larose APRN.CNP 06/01/2018 2:08 PM Signed Orders filed. ZERHA Jones MA 06/01/2018 2:08 PM Signed The patient has been identified by name and date of : YES I have scheduled the patient for an appointment on 06/06/2018. The patient will report to the lab prior to the visit. I have pended the following lab orders: PHMA Documentation 09/20/2017 06/01/2018 Opts out of [facility] No No Appointments Scheduled - Scheduled CP Appt DM2 with No FRANK - Record Requested Opthy Appt - No DM2 with No Urine Alb Lab Ordered Lab Ordered DM2 with No DFE Record Requested Record Requested Pneumoccal Vaccination Record Requested - Elida Patel MA Allergies As of Date: 05/31/2018 Noted Allergy Reaction EPHEDRINE 11/23/2005 16 - Unknown TAPE [Other] 11/23/2005 2 - Rash Date Reviewed: 04/16/2017 Reviewed by: Melisa Griffith) Lou - Fully Assessed Primary Visit Diagnosis:Type 2 diabetes mellitus without complication, unspecified whether keno terminal operator insulin use (HCC) [E11.9] Other Visit Diagnosis:Screening for hyperlipidemia [Z13.220] Order(s):HGB A1C [EVMQL4Z] Order #: [id number] FUTURE ALBUMIN/CREAT RATIO RND UR [SQUACR] Order #: [id number] FUTURE LIPID PANEL BASIC [SQLIPB] Order #: [id number] FUTURE COMP METABOLIC PANEL [SQCMP] Order #: [id number] FUTURE Prescriptions as of 05/31/2018 Sig: DEXTROAMPHETAMINE-AMPHETAMINE* ALPRAZOLAM 0.5 MG TABLET PROMETHAZINE 25 MG TABLET Take 1 tablet by mouth every * MECLIZINE 25 MG TABLET Take 1 tablet by mouth every * HYDROXYZINE PAMOATE 25 MG CAP* Take 1 capsule by mouth three* EPINEPHRINE 0.3 MG/0.3 ML INJ* Use as directed prn allergic * METFORMIN 500 MG TABLET Take 1 tablet by mouth twice * BUPROPION HCL SR 150 MG TABLE* Take 1 tablet by mouth twice * BLOOD SUGAR DIAGNOSTIC STRIPS Test blood sugar(s) 3 times d* ALBUTEROL SULFATE HFA 90 MCG/* Inhale 2 Puffs as instructed * NAPROXEN 500 MG TABLET Take 1 tablet by mouth twice * Problem List As Of Date 05/31/2018 Noted Resolved Inguinal hernia with obstruction, without menti*INVALID FOR*03/18/2013 PAIN GROIN (right) [R10.9] INVALID FOR*03/18/2013 Abdominal pain, right lower quadrant [R10.31] INVALID FOR*03/18/2013 LUMBAGO [M54.5] INVALID FOR* Headache [R51] INVALID FOR* TMJ (temporomandibular joint syndrome) [M26.609]INVALID FOR* Intermittent asthma with allergic rhinitis [J45*INVALID FOR* More... Family history of defects [Z82.79] INVALID FOR*10/07/2015 More... More... Rubella non-immune status, antepartum [O99.89, *INVALID FOR*02/11/2014 More... Gestational diabetes [O24.419] INVALID FOR*02/11/2014 More... Supervision of other high-risk (V23.89*INVALID FOR*02/11/2014 More... Type 2 diabetes mellitus without complication (*INVALID FOR* Anxiety [F41.9] INVALID FOR* Encounter Status:Closed by ELIDA PATEL on 06/01/18 CR CHEST PA/LAT Observed: 03/31/2018 Status: F Source: [facility] 4:00 PM SYSTEM REPOSITORY Patient Name: BERNADETTE FAUST Diagnostic Radiology Exam Date/Time 03/31/2018 15:58:01 EDT Exam CR Chest PA/LAT Ordering Physician MD TAYLOR EARL Accession Number [id number] CPT4 Codes 19518 () Reason For Exam shortness of breath Report Reason for examination: Shortness of breath. PA and lateral views of the chest are performed. The trachea is midline. The mediastinal and cardiac silhouette are normal. The pulmonary vasculature is normal. No acute infiltrates, pleural effusion or pneumothorax is seen. The osseous structures appear intact. IMPRESSION: No acute cardiopulmonary process. Report Dictated on Final Dictated: 03/31/2018 4:00 pm Dictating Physician: MD TORRES LAUREN B Signed Date and Time: 03/31/2018 4:00 pm Signed by: MD TORRES LAUREN B Transcribed Date and Time: 03/31/2018 4:00 HEMOGRAM W/ AUTODIFF Collected: 03/31/2018 Status: F Source: [facility] 3:47 PM SYSTEM REPOSITORY TYPE CODE TESTS RESULT OUT OF REFERENCE UNITS RANGE LAB IWBC 3.6-10.7 10*3/uL WBC Normal 6.9 LAB RBC 3.80-5.20 10*6/uL RBC Normal 4.59 LAB HGB 11.7-16.0 g/dL Hemoglobin Normal 13.2 LAB HCT 35.0-47.0 % Hematocrit Normal 39.5 LAB MCV 79.0-98.0 fL MCV Normal 86.2 LAB MCH 26.0-34.0 pg MCH Normal 28.8 LAB MCHC 32.0-36.0 % MCHC Normal 33.4 LAB RDW 11.5-14.5 % RDW Normal 12.5 LAB PLT 140-440 10*3/uL Platelet Normal 214 LAB MPV 7.4-10.4 fL MPV Normal 8.1 LAB GRAN% 40.0-80.0 % Granulocytes Normal 57.4 LAB LYMP% 20.0-40.0 % Lymphocytes Normal 34.6 LAB MONO% 2.0-10.0 % Monocytes Normal 7.1 LAB EOS% 1.0-6.0 % Low Eosinophils 0.4 LAB BAS% 0.0-2.0 % Basophils Normal 0.5 LAB ANC 1.8-7.0 10*3/uL Abs Normal Neutrophile Cnt 4.0 LAB ALC 1.0-4.3 10*3/uL Abs Lymph Cnt Normal 2.4 LAB AMC 0.0-0.8 10*3/uL Abs Monocyte Normal Cnt 0.5 LAB AEC 0.0-0.5 10*3/uL Abs Eosin Cnt Normal 0.0 LAB ABC 0.0-0.2 10*3/uL Abs Baso Cnt Normal 0.0 Performed By: #### HEMDF, TROPN, BMP3, DDI2, BNP3 #### [facility] [address] [address] TROPONIN I Collected: 03/31/2018 Status: F Source: [facility] 3: PM SYSTEM REPOSITORY TYPE CODE TESTS RESULT OUT OF RANGE REFERENCE UNITS LAB TROP4 0.000-0.045 ng/mL Normal Troponin I < 0.017 Result Comment: 0.046 - 0.400 = Indeterminate > 0.400 = Consider Myocardial Injury Performed By: #### HEMDF, TROPN, BMP3, DDI2, BNP3 #### [facility] [address] [address] BASIC METABOLIC PANEL Collected: 03/31/2018 Status: F Source: [facility] 3: PM SYSTEM REPOSITORY TYPE CODE TESTS RESULT OUT OF RANGE REFERENCE UNITS LAB NA3 135-145 mmol/L Low Sodium 134 LAB K3 3.5-5.1 mmol/L Normal Potassium 3.5 LAB CL3 98-109 mmol/L Normal Chloride 103 LAB CO23 21-32 mmol/L Normal Carbon Dioxide 24 LAB ANIN3 NA Anion Gap 7 LAB GLUC3 70-100 mg/dL High Glucose 104 Result Comment: . LAB BUN3 7-25 mg/dL Normal Urea Nitrogen 9 LAB CRET3 0.55-1.40 mg/dL Normal Creatinine 0.97 LAB GF3BR >60 mL/min eGFR > 60.0 LAB GF3WR >60 mL/min eGFR OTHER > 60.0 Result Comment: Source- MDRD equation with creatinine calibration to IDMS(NKDEP) eGFR not recommended for drug dose adjustment LAB CA3 8.2-10.1 mg/dL Normal Calcium 9.4 Performed By: #### HEMDF, TROPN, BMP3, DDI2, BNP3 #### [facility] [address] [address] D-DIMER, INNOVANCE Collected: 03/31/2018 Status: F Source: [facility] 3:47 PM SYSTEM REPOSITORY TYPE CODE TESTS RESULT OUT OF RANGE REFERENCE UNITS LAB 2DDI 0.00-0.50 mg/L Normal D-Dimer, < 0.19 Innovance Result Comment: Innovance D-Dimer values of <0.50 mg/L FEU can be used in combination with a pre-test probability model (e.g. Well's) to exclude pulmonary embolism (PE) disease, as well as an aid in the diagnosis of deep vein thrombosis (DVT). Performed By: #### HEMDF, TROPN, BMP3, DDI2, BNP3 #### [address] [address] NT PRO BNP Collected: 03/31/2018 Status: F Source: [facility] 3:47 PM SYSTEM REPOSITORY TYPE CODE TESTS RESULT OUT OF RANGE REFERENCE UNITS LAB BNP3 0-125 pg/mL Normal NT pro 44 BNP Performed By: #### HEMDF, TROPN, BMP3, DDI2, BNP3 #### [address] [address] URINALYSIS,MACRO Collected: 03/31/2018 Status: F Source: [facility] 3:47 PM SYSTEM REPOSITORY TYPE CODE TESTS RESULT OUT OF REFERENCE UNITS RANGE LAB APPUR Clear NA Appearance Clear LAB COLUR Lt. Yellow NA Color Yellow LAB USG 1.005-1.030 NA Specific Normal [place],Urine 1.010 LAB UPH 5.0-8.0 NA pH,Urine Normal 7.0 LAB ULUK Negative NA Leukocytes 1 + LAB UNIT Negative NA Nitrites NEG LAB UPRO Negative mg/dL Total Protein,Urine NEG LAB UGLU Negative mg/dL Glucose,Urine NEG (Normal) LAB UKET Negative mg/dL Ketone,Urine Negative LAB UURO 0-1 mg/dL Urobilinogen Normal (0.2) LAB UBIL Negative NA Bilirubin,Ur Negative LAB UBLD Negative {RBC}/uL Occult Blood,Ur Negative Performed By: #### UAMAC, UAMIC, DRGA4 #### [address] [address] URINALYSIS,MICROSCOPIC Collected: Status: F Source: [facility] 03/31/2018 3:47 PM HEALTH SYSTEM REPOSITORY TYPE CODE TESTS RESULT OUT OF REFERENCE UNITS RANGE LAB WBCU 0-5 /[HPF] 0 WBC,Urine - 2 LAB RBCU 0-2 /[HPF] RBC,Urine Negative LAB EPIU 3-5 /[HPF] 11 Epithelial Cells - 25 LAB AMADO Negative NA Bacteria Many (51-100) Performed By: #### UAMAC, UAMIC, DRGA4 #### [address] [address] DRUGS OF ABUSE Collected: 03/31/2018 Status: F Source: [facility] 3:47 PM SYSTEM REPOSITORY TYPE CODE TESTS RESULT OUT OF REFERENCE UNITS RANGE LAB AMP3 NA Amphetamine, Ur Positive LAB BARB3 NA Barbiturates, Ur Positive LAB BENZ3 NA Benzodiazepines, Negative Ur LAB COC3 NA Cocaine, Ur Negative LAB METH3 NA Methadone, Ur Negative LAB OPI3 NA Opiates, Ur Negative LAB OXY3 NA Oxycodone/Oxymorph Negative one,Ur LAB PCP3 NA Phencyclidine (PCP), Ur Negative Result Comment: The expected value for all of the drugs listed above is Negative. The following drugs or drug groups have been screened for by Immunoassay at the following thresholds: Amphetamine class (1000 ng/mL), Barbiturates (200 ng/mL), Benzodiazepines (200 ng/mL), Cocaine (300 ng/mL), Methadone (300 ng/mL), Opiates (300 ng/mL), Oxycodone (100 ng/mL), and PCP (25 ng/mL). NOTE: These results are for medical treatment only. Analysis performed using non-forensic procedures. Performed By: #### UAMAC, UAMIC, DRGA4 #### [facility] [address] [place] [address] HEMOGRAM W/ AUTODIFF Collected: 02/02/2018 Status: F Source: [facility] 7:25 PM SYSTEM REPOSITORY TYPE CODE TESTS RESULT OUT OF REFERENCE UNITS RANGE LAB IWBC 3.6-10.7 10*3/uL WBC High 14.4 LAB RBC 3.80-5.20 10*6/uL RBC 5.01 LAB HGB 11.7-16.0 g/dL Hemoglobin 13.8 LAB HCT 35.0-47.0 % Hematocrit 42.2 LAB MCV 79.0-98.0 fL MCV 84.3 LAB MCH 26.0-34.0 pg MCH 27.6 LAB MCHC 32.0-36.0 % MCHC 32.8 LAB RDW 11.5-14.5 % RDW 11.8 LAB PLT 140-440 10*3/uL Platelet 224 LAB MPV 7.4-10.4 fL Low MPV 7.3 LAB GRAN% 40.0-80.0 % Granulocytes 63.9 LAB LYMP% 20.0-40.0 % Lymphocytes 27.1 LAB MONO% 2.0-10.0 % Monocytes 5.9 LAB EOS% 1.0-6.0 % Low Eosinophils 0.5 LAB BAS% 0.0-2.0 % Basophils High 2.6 LAB ANC 1.8-7.0 10*3/uL Abs High Neutrophile Cnt 9.1 LAB ALC 1.0-4.3 10*3/uL Abs Lymph Cnt 3.9 LAB AMC 0.0-0.8 10*3/uL Abs Monocyte High Cnt 0.9 LAB AEC 0.0-0.5 10*3/uL Abs Eosin Cnt 0.1 LAB ABC 0.0-0.2 10*3/uL Abs Baso Cnt High 0.4 Performed By: #### HEMLEEANN BMP3 #### The performing lab is in the report. BASIC METABOLIC PANEL Collected: 02/02/2018 Status: F Source: [facility] 7:25 PM SYSTEM REPOSITORY TYPE CODE TESTS RESULT OUT OF REFERENCE UNITS RANGE LAB NA3 135-145 mmol/L Sodium 138 LAB K3 3.5-5.1 mmol/L Potassium 3.9 LAB CL3 98-109 mmol/L Chloride 100 LAB CO23 21-32 mmol/L Carbon Dioxide 28 LAB ANIN3 Anion Gap 10 LAB GLUC3 70-100 mg/dL High Glucose 119 Result Comment: . LAB BUN3 7-25 mg/dL Urea Nitrogen 8 LAB CRET3 0.55-1.40 mg/dL Creatinine 0.81 LAB GF3BR >60 mL/min eGFR >60.0 LAB GF3WR >60 mL/min eGFR OTHER >60.0 Result Comment: Source- MDRD equation with creatinine calibration to IDMS(NKDEP) eGFR not recommended for drug dose adjustment LAB CA3 8.2-10.1 mg/dL Calcium 9.4 Performed By: #### HEMLEEANN, BMP3 #### The performing lab is in the report. HCG,URINE QUAL Collected: 02/02/2018 Status: F Source: [facility] 7:25 PM SYSTEM REPOSITORY TYPE CODE TESTS RESULT OUT OF REFERENCE UNITS RANGE LAB HCGUR Negative Negative HCG,Urine Qual Result Comment: is the most common reason for HCG in urine, although choriocarcinoma, hydatidiform mole, and certain nontropho- blastic malignancies also result in detectable urinary HCG levels. Sensitivity = 20mIU/mL. Performed By: #### HCGUR, UAMAC #### The performing lab is in the report. URINALYSIS,MACRO Collected: 02/02/2018 Status: F Source: [facility] 7:25 PM SYSTEM REPOSITORY TYPE CODE TESTS RESULT OUT OF REFERENCE UNITS RANGE LAB APPUR Clear Appearance Clear LAB COLUR Lt. Yellow Color Yellow LAB USG 1.005-1.030 Specific [place],Urine 1.010 LAB UPH 5.0-8.0 pH,Urine 6.5 LAB ULUK Negative Leukocytes Trace LAB UNIT Negative Nitrites NEG LAB UPRO Negative mg/dL Total Protein,Urine NEG LAB UGLU Negative mg/dL Glucose,Urine NEG (Normal) LAB UKET Negative mg/dL Ketone,Urine Negative LAB UURO 0-1 mg/dL Urobilinogen Normal (0.2) LAB UBIL Negative Bilirubin,Ur Negative LAB UBLD Negative {RBC}/uL Occult Blood,Ur Negative Performed By: #### HCGUR, UAMAC #### The performing lab is in the report. CR HAND COMPLETE 3+ Observed: 12/23/2017 Status: F Source: [facility] VIEWS RIGHT 6:12 AM SYSTEM REPOSITORY Patient Name: BERNADETTE CHAO Diagnostic Radiology Exam Date/Time 12/23/2017 06:06:35 EST Exam CR Hand Complete 3+ Views Right Ordering Physician MD BLEDSOE NISHIT Accession Number [id number] CPT4 Codes 16484 () Reason For Exam right fingers injury Report Clinical indications: Caught hand in door, attention to distal phalanges of the second through fourth digits. FINDINGS: Three views are submitted for interpretation. There are no prior studies for comparison. Bone mineralization is normal. No acute fracture, dislocation or subluxation is appreciated. The surrounding soft tissues are intact. There is no evidence of radiopaque foreign body or gas formation. There is no appreciable degenerative change. IMPRESSION: No acute osseous abnormality of the right hand. Report Dictated on Workstation: [id number] Final Dictated: 12/23/2017 6:12 am Dictating Physician: MD THAKUR RUSSELL Signed Date and Time: 12/23/2017 6:13 am Signed by: MD THAKUR RUSSELL Transcribed Date and Time: 12/23/2017 6:12 ALLERGIES ALLERGIES DATE TYPE / CODE NAME / CODE REACTION SEVERITY SOURCE Drug Latex, Natural Other Unknown [place] 8 Allergy/[id number]( Rubber/[id number] [facility] SNOMED CT) 526(RXNORM) Hospital Repository Drug verapamil/F006 Anaphylaxis Unknown [place] 8 Allergy/[id number]( 172037(RXNORM) [facility]ly [facility] SNOMED CT) Hospital Repository Miscellaneous tape Rash Unknown [place] 8 Allergy/177830536( [facility] SNOMED CT) Hospital Repository DRUG LATEX UNKNOWN [place] INGREDI/[id number]( [facility] SNOMED CT) [place] Rep[facility] DRUG VERAPAMIL ANAPHYLAXIS [place] INGREDI/[id number]( [facility] SNOMED CT) [place] Rep[facility] Miscellaneous OTHER RASH [place] 6 Allergy/623763369( [facility] SNOMED CT) [place] Rep[place] NG/[id number](SNOME LATEX [facility] D [facility]) [facility] Repository NG/[id number](SNOME OTHER [facility]) [facility] System Repository NG/[id number](SNOME VERAPAMIL [facility] D [facility]) Health System Repository ENCOUNTERS ENCOUNTERS ADMIT/DISCHARGE ACCOUNT NUMBER ADMITTING ENCOUNTER LOCATION SOURCE CLASS 10/29/2018/10/31/19 [id number] Ambulatory [address] Repository 10/28/2018/10/29/20 [id number] Emergency [address] ding:ED Repository 10/22/2018/10/22/20 [id number] Emergency [address] ding:ED Repository 10/15/2018/10/16/20 [id number] Ambulatory [address] Repository 10/12/2018/10/12/20 [id number] Emergency [address] ding:ED Repository 10/11/2018/10/11/20 [id number] Ambulatory [address] Repository 10/06/2018/10/06/20 [id number] Emergency [address] ding:ED Repository 10/04/2018 [id number] Ambulatory [facility] MEDICAL Repository [facility] ng:[facility] 10/02/2018/10/03/20 [id number] Ambulatory [address] Main [place] Repository 10/01/2018/10/02/20 [id number] Ambulatory [address] Main [place] Repository 10/01/2018/10/01/20 [id number] Ambulatory [address] Main [place] Repository 09/18/2018/09/19/20 [id number] Ambulatory [address] Main [place] Repository 09/14/2018/09/14/20 [id number] Emergency [place] [address] [place] [address] ding:ED Repository 09/14/2018/09/14/20 [id number] Ambulatory [address] [place] Repository 09/12/2018/09/14/20 [id number] Ambulatory [address] Repository 09/12/2018/09/12/20 [id number] Ambulatory [address] [place] Repository 09/12/2018/09/14/20 [id number] Ambulatory [address] Repository 09/11/2018 [id number] Emergency BuildinA [facility] ERRoom: System 1F5QMHDan: Repository [id number] 07/27/2018 [id number] Emergency BuildinD [facility] EMRoom: System 1DEMRBed: Repository [id number] 06/21/2018 [id number] Emergency BuildinD [facility] EMRoom: System 1DEMRBed: Repository [id number] 06/05/2018/06/05/[id number] Repository 06/05/2018/06/05/20 [id number] Ambulatory [address] Repository 03/31/2018 [id number] Emergency BuildinD [facility] EMRoom: System 1DEMRBed: Repository [id number] 02/02/2018 [id number] Emergency BuildinD [facility] EMRoom: System 1DEMRBed: Repository [id number] 01/07/2018 [id number] Emergency BuildinD [facility] EMRoom: System 1DEMRBed: Repository [id number] 12/23/2017 [id number] Emergency BuildinD [facility] EMRoom: System 1DEMRBed: Repository [id number] PAYERS PAYERS ENCOUNTER GUARANTOR PAYER SUBSCRIBER SOURCE 10/28/2018 BERNADETTE Guerrero Primary BERNADETTE Guerrero [place] [id number] Insurance:CARESOURCEP GUNNELSDOB: Formerly [facility] julieta IRIZARRY Number: [id number] [facility] [address]Kuu: [id number] Repository Date:2018-10-28P O (HP) [address]ATTN: [place] [address]WM: 10/28/2018 Secondary NOT GIVENUNK [place] Insurance:SELF PAY [facility] Number: Effective Repository Date:2018-10-28 10/22/2018 BERNADETTE R Primary BERNADETTE Guerrero [place] [id number] E Insurance:CARESOURCEP GUNNELSDOB: [facility] Number: [id number] [facility] Behavioral [facility] [address]Qmh: [id number] Repository Date:2018-10-22P O () [address]ATTN: [place] [address]DC: 10/22/2018 Secondary NOT GIVENUNK [place] Insurance:SELF PAY [facility] Number: Effective Repository Date:2018-10-22 10/12/2018 BERNADETTE R Primary BERNADETTE Guerrero [place] [id number] W Insurance:CARESOURCEP GUNNELSDOB: Formerly [facility] AMOL [facility] Number: [id number], [place] [id number] Repository [address]Elu: 330) Date:2018-10-12P O [phone] (HP) [address]ATTN: [place] [address]GG: 10/12/2018 Secondary NOT GIVENUNK [place] Insurance:SELF PAY [facility] Number: Effective Repository Date:2018-10-12 10/06/2018 BERNADETTE R Primary BERNADETTE Guerrero [place] [id number] W Insurance:CARESOURCEP GUNNELSDOB: Formerly [facility] [address] olicy Number: [id number], [place] [id number] Repository [address]Avp: ([phone]) Date:2018-10-06P O [phone] () [address]ATTN: [place] [address]JY: 10/06/2018 Secondary NOT GIVENUNK [place] Insurance:SELF PAY [facility] Number: Effective Repository Date:2018-10-06 10/04/2018 BERNADETTE R Primary BERNADETTE R [facility] GUNNELSDOB: Insurance:CARESOURCE GUNNELSDOB: Health System [id number] W MEDICAIDPolicy [id number] Repository [address] Number: [place], [place] [id number] [address]Wwf: (330) Date: [phone] (HP) 09/14/2018 BERNADETTE R Primary BERNADETTE R [place] [id number] W Insurance:CARESOURCEP GUNNELSDOB: Formerly [facility] [address] o[address] Number: [id number], [place] [id number] Repository [address]Loi: ([phone]) Date:2018-09-14P O [phone] () [address]ATTN: [place] [address]NA: 09/14/2018 Secondary NOT GIVENUNK [place] Insurance:SELF PAY [facility] Number: Effective Repository Date:2018-09-14 09/11/2018 Bernadette R Primary [facility] GunnelsDOB: Insurance:CareSourceP GunnelsDOB: System [id number] W olicy Number: [id number] Repository [address] Effective Date: [place], [place] [address]Tdu: (HP) 07/27/2018 Bernadette R Primary [facility] GunnelsDOB: Insurance:CareSourceP GunnelsDOB: System W olicy Number: [id number] Repository [address] Effective Date: [place], [place] [address]Aqd: (HP) 06/21/2018 Bernadette R Primary Bernadette R [facility] Health GunnelsDOB: Insurance:CareSourceP GunnelsDOB: System [id number] W olicy Number: [id number] Repository [address] Effective Date: [place], [place] [address]Cfo: (HP) 03/31/2018 Bernadette R Primary Bernadette R [facility] Health CristDOB: Insurance:CareSourceP CristDOB: System [id number] olicy Number: [id number] Repository Roy Effective Date: [place], [place] [address]Izh: (HP) 02/02/2018 Bernadette Primary Bernadette [facility] Health GunnelsDOB: Insurance:CareSourceP GunnelsDOB: System [id number] olicy Number: [id number] Repository [address] Effective Date: [place], [place] [address]Rxr: (HP) 01/07/2018 Bernadette Primary [facility] Health CristDOB: Insurance:CareSourceP CristDOB: System [id number] olicy Number: [id number] Repository Roy Effective Date: [place], [place] [address]Hdo: (HP) 12/23/2017 Bernadette Primary [facility] Health CristDOB: Insurance:CareSourceP CristDOB: System [id number] olicy Number: [id number] Repository R[place] Effective Date: [place], [place] [address]Thr: (HP)
== END 2018-10-12 05:00 | disposition home or self-care (01) ==
PROVIDERS: Emergency Provider Emergency Medicine; PCP Family Medicine
DX: O21.9 Vomiting of pregnancy, unspecified (principal); Z3A.08 8 weeks gestation of pregnancy; Z79.899 Other long term (current) drug therapy
CPT/HCPCS: 96361; 96374; 99283; J7030

== ENCOUNTER 2018-10-22 19:48 | Emergency (ER) | payer MEDICAID, SELFPAY ==
[2018-10-22 19:49] VITALS: BP 119/79; PULSE 87; RESP 16; TEMP 36.1; O2SAT 98; BMI 26.9
[2018-10-22 20:07] VITALS: RESP 16
--- NOTE | 2018-10-22 20:07 | US_ITS ---
STUDY: FIRST TRIMESTER OBSTETRICAL ULTRASOUND REASON FOR EXAM: Female, 23 years old. Cramping and bleeding. TECHNIQUE: Transvaginal. TECHNICAL QUALITY: Adequate. PRIOR ULTRASOUND: 09/14/2018. FINDINGS: Gravid uterus measures 9.8 x 6.6 x 9.1 cm. There is a single live intrauterine gestation. Cardiac activity is documented, with heart rate of 174. [place]-rump length measures 3.98 cm corresponding to estimated gestational age of 11 weeks 0 days. Estimated date of delivery is 05/14/2019. Normal yolk sac is demonstrated. Cervix is closed. There is a small subchorionic bleed measuring 1.2 x 0.6 cm. The right ovary is normal in size and echogenicity, measuring 2.3 x 1.5 x 1.9 cm. There is no mass or dominant cyst. Venous flow is documented. The left ovary is normal in size and echogenicity, measuring 3.3 x 1.6 x 2.3 cm. There is no mass or dominant cyst. Venous flow is documented. There is no free fluid in the cul-de-sac. US/Transvaginal w/Preg US IMPRESSION: Single live intrauterine gestation with EGA of 11 weeks 0 days. Electronically Signed: Bell De La Torre MD at 22:12 EST Tel , Service support ,
--- NOTE | 2018-10-22 20:10 | ED.DCSUM_ITS ---
- ER Visit Summary Date of Service: 10/22/18 Chief Complaint: [] Pelvic cramps scant vaginal bleeding 10 weeks by history History of Present Illness: The patient is a 23 F [] AB 1 reports she seen by [facility]ER [facility]ER she presents complaining of some pelvic cramps that occurred after she had been moving some light boxes, no trauma no sex, she noticed that she wiped she noticed some minimal blood on the toilet paper no heavy bleeding, she had no trauma to her body no back pain no urinary symptoms, she indicates she is been seen multiple times in the [facility] system by [facility] she has had multiple ultrasounds that have shown a 10-week live IUP no ectopic her quant to been in the normal ranges she presents for evaluation Physical Examination: [] Her vital signs are all within normal range she is in no distress General, no distress resting comfortably HEENT is generally unremarkable The neck is supple no adenopathy Cardiovascular, regular rate and rhythm Lungs, clear bilateral Abdomen, soft nontender, she complains of some vague pain in the suprapubic area this area is soft and nontender Extremities, no clubbing cyanosis or edema Neurologic, awake alert answering questions appropriately moving all 4 extremities Test Results: [] Emergency Department Course and Treatment: [] This time given all the above screening labs ultrasound Ultrasound per radiology shows 10-week live IUP no signs of ectopic see that report her UA labs are generally unremarkable she reports she is a positive she is feeling better All the above she will discharge home pelvic rest threatened AB instructions follow with her physicians and return for change in symptoms Treatment Plan: [] Disposition: [] Home stable Impression: [] Vaginal bleeding, threatened AB, 10-week live IUP ultrasound This note was generated with Scribd dictation software. It may contain incorrect words, spelling, and punctuation that were not noted in review of the chart prior to signing ED Disposition - Plan for ED Patient: Chief Complaint: Vag Bld, Preg Referrals: Kevin Sotelo MD [Primary Care Provider] -
--- NOTE | 2018-10-22 20:20 | ED.RN ---
YISEL CALLED, HE WILL BE IN
[2018-10-22] MEDS: 0.9% Normal Saline 1,000 ML 1000 ML IV (20:53)
[2018-10-22] MEDS: Ondansetron 4 MG/2 ML Vial IV (20:53)
[2018-10-22 20:54] LABS: Absolute Neutrophil Count 4.4 X10^3/uL (2.0-7.7); Basophil# 0.02 X10^3/uL; Basophil% 0.3 % (0-1); Eosinophils% 1.3 % (0-5); Hematocrit 39.8 % (37-47); Hemoglobin 13.7 g/dl (12.0-15.0); Lymphocyte % 33.4 % (19-41); Mean Corp Hgb Conc 34.4 g/gl (32-36); Mean Corpuscular Hgb 28.4 pg (27.0-32.0); Mean Corpuscular Volume 82.6 fL (81-99); Mean Platelet Vol. 8.6 fl (6.2-12.0); Monocyte# 0.67 X10^3/uL; Monocyte% 8.6 % (0-10); Neutrophil # 4.38 X10^3/uL (2.7-7.7); Neutrophil % 56.1 % (47-70); Platelet Count 175 K/mm3 (150-450); RBC Distribution Width CV 13.2 % (11.6-14.6); RBC Distribution Width SD 40.2 fl (35.1-43.9); Red Blood Count 4.82 M/mm3 (4.2-5.4); White Blood Count 7.8 K/mm3 (4.4-11.0)
[2018-10-22] MEDS: morphine 8 MG/ML Syringe 6 MG IV (20:55)
[2018-10-22 20:56] LABS: POSITIVE COUNT NO; POSITIVE DIFFERENTIAL NO; POSITIVE MORPHOLOGY NO
[2018-10-22 22:05] LABS: Bacteria 0 SEEN /hpf (None Seen); Mucous, Urine 0 SEEN /hpf (<or=2+); Red Blood Cells-Urine 0 SEEN /hpf (0-5); White Blood Cells 0 SEEN /hpf (0-5)
[2018-10-22 22:06] LABS: Color, Urine Yellow (Yellow); Glucose, Dipstick 250 mg/dl (Normal); Ketone-Dipstick Negative (Negative); Leukocyte Esterase-Dipstick Negative /ul (Negative); Nitrite-Dipstick Negative (Negative); Occult Blood-Urine Negative /ul (Negative); Protein-Dipstick Negative (Negative); Urine Bilirubin Dipstick Negative (Negative); Urine Clarity Clear (Clear); Urine Urobilinogen Normal (Normal)
[2018-10-22 22:13] LABS: Squamous Epithelial Cells - UA 0-5 SEEN /hpf (5-10)
--- NOTE | 2018-10-22 22:28 | ED.DEP ---
ED Disposition - Plan for ED Patient: Chief Complaint: Vag Bld, Preg Instructions: ED Miscarriage Poss Referrals: Kevin Sotelo MD [Primary Care Provider] - Additional Instructions: Rest return for change in symptoms follow-up with your outpatient providers
[2018-10-22 22:39] VITALS: BP 112/69; PULSE 72; RESP 16; O2SAT 98
== END 2018-10-22 22:40 | disposition home or self-care (01) ==
LOC: ED 20:12
PROVIDERS: Emergency Provider Emergency Medicine; Family Provider Family Medicine; PCP Family Medicine
DX: O20.0 Threatened abortion (principal); Z79.899 Other long term (current) drug therapy
CPT/HCPCS: 76817; 81001; 84702; 85025; 87086; 96361; 96374; 96375; 99285; J7030; J2405

== ENCOUNTER 2018-10-28 18:26 | Emergency (ER) | payer MEDICAID, SELFPAY ==
[2018-10-28 18:27] VITALS: BP 124/94; PULSE 116; RESP 14; TEMP 34.2; O2SAT 99; BMI 26.9
[2018-10-28 20:28] VITALS: BP 127/94; PULSE 90; RESP 16; TEMP 37; O2SAT 100; O2SAT 98
[2018-10-28 21:09] VITALS: BP 122/87; PULSE 108; RESP 16; TEMP 37.1; O2SAT 100
--- NOTE | 2018-10-28 21:20 | US_ITS ---
STUDY: FIRST TRIMESTER OBSTETRICAL ULTRASOUND REASON FOR EXAM: Female, 23 years old. Abdominal pain. Worsening bleeding with . LMP: 08/11/2018. TECHNIQUE: Transabdominal. TECHNICAL QUALITY: Adequate. PRIOR ULTRASOUND: October 22, 2018. FINDINGS: Nonvisualization of the gestational sac, yolk sac, placenta or embryo. No heart tones identified. Previously noted embryo is not visualized. The estimated gestation age (EGA) by LMP is 11 weeks, 1 days. The estimated date of delivery (KATHERINE) by LMP is 05/18/2019.. The uterus measures 10.2 x 8.9 x 6.6 cm. There is no demonstrated uterine fibroid. Endometrium measures 46 mm and is heterogeneous in echotexture. The cervix is closed. The right ovary measures 2.9 x 2.1 x 1.6 cm. There is no right ovarian cyst. There is no visualized right adnexal mass or complex lesion. Inferior to the right ovary is a 1.7 x 1.7 cm heterogeneous structure with an anechoic center of uncertain clinical significance. The left ovary measures 3.6 x 2.7 x 1.9 cm. There is no left ovarian cyst. There is no visualized left adnexal mass or complex lesion. There is no fluid in the cul de sac. US/Transvaginal w/Preg US IMPRESSION: Previously noted intrauterine gestation is no longer visualized. This suggests a recent miscarriage. Recommend serial beta-hCG, close clinical correlation and follow-up ultrasound as warranted. Thickened heterogeneous endometrium suggestive of retained products of conception. 1.7 cm heterogeneous structure inferior to the right ovary of uncertain clinical significance. A concurrent ectopic is unlikely. This can be followed with ultrasound. Electronically Signed: Stanton Matson MD at 0:35 EST , Service support ,
[2018-10-28] MEDS: HYDROcodone Bitartrate/Apap 5/325 Tablet PO (21:35)
[2018-10-28] MEDS: Ondansetron ODT 4 MG Tablet PO (21:54)
[2018-10-28 22:29] LABS: Bacteria 0 SEEN /hpf (None Seen); Mucous, Urine 0 SEEN /hpf (<or=2+)
[2018-10-28 22:44] LABS: Color, Urine Red (Yellow); Glucose, Dipstick 50 mg/dl (Normal); Ketone-Dipstick 5 mg/dl (Negative); Leukocyte Esterase-Dipstick 100 /ul (Negative); Nitrite-Dipstick Negative (Negative); Occult Blood-Urine 250 /ul (Negative); Protein-Dipstick 30 mg/dl (Negative); Specific Gravity, Urine 1.015 (1.002-1.030); Urine Bilirubin Dipstick Negative (Negative); Urine Clarity Cloudy (Clear); Urine Urobilinogen Normal (Normal); Urine pH 6.5 (5.0 - 8.0)
[2018-10-28 22:45] LABS: Red Blood Cells-Urine > 100 SEEN /hpf (0-5); Squamous Epithelial Cells - UA 0-5 SEEN /hpf (5-10); White Blood Cells 0-5 SEEN /hpf (0-5)
[2018-10-28 23:27] VITALS: BP 131/66; PULSE 82; PULSE 83; RESP 16; TEMP 37.2; O2SAT 97
[2018-10-28] MEDS: morphine 10 MG/ML Syringe 4 MG SC (23:39)
--- NOTE | 2018-10-29 00:51 | ED.VISSUMM ---
- ER Visit Summary Date of Service: 10/29/18 Chief Complaint: Vaginal bleeding History of Present Illness: The patient is a 23 F with vaginal bleeding today. The patient is 11 weeks , Ab1 from a previous miscarriage at 12 weeks. Blood type a positive. She tells me that she does not have an established DOCTOR OF NAPRAPATHIC MEDICINE for this . She reports lower abdominal pain that feels like cramping and contractions. No fevers. No urinary symptoms. No GI symptoms. Physical Examination: Afebrile and vital signs unremarkable. Patient appears uncomfortable. Lower abdominal tenderness with light touch. Pelvic exam was chaperoned by nurse Fadi. She did have blood in her vaginal vault and coming through the cervix. No tissue was visualized. Cervix was fingertip. ED Course and Test Results: I reviewed her previous labs. She has had recurrent bleeding only for today and is hemodynamically normal. I do not believe repeat blood work will be of any utility at this point. Urinalysis showed blood but no signs of infection. Ultrasound was performed and showed that she no longer had an intrauterine which was visualized on the previous ultrasound. She does have some possible retained products in her uterus and her endometrium measures 46 mm. There is also a structure at her right ovary, and they cannot rule out an ectopic . I spoke with Tawanna Eric. She did receive paperwork recently from an agency in [place], and was concerned that this patient may have recently had an elective . On reevaluation, the patient is stable. She had been treated with [place] and subcutaneous morphine. Her vitals are unremarkable. Her bleeding is not excessive. No other associated issues. Per OB, she is appropriate for outpatient follow-up and will call the office for follow-up tomorrow. I did check her prescription database report. She was given a home pack of [place]. Return right away for any new or worsening issues. Otherwise, follow-up tomorrow. Treatment Plan: As above Disposition: Discharge Impression: 1. Miscarriage This note was generated with [employer] dictation software. It may contain incorrect words, spelling, and punctuation that were not noted in review of the chart prior to signing ED Disposition - Plan for ED Patient: Chief Complaint: Vag Bld, Preg Referrals: Kevin Sotelo MD [Primary Care Provider] -
--- NOTE | 2018-10-29 00:59 | ED.DCSUM_ITS ---
- ER Visit Summary Date of Service: 10/29/18 Chief Complaint: Vaginal bleeding History of Present Illness: The patient is a 23 F with vaginal bleeding today. The patient is 11 weeks , Ab1 from a previous miscarriage at 12 weeks. Blood type a positive. She tells me that she does not have an established LIGHT AIR DEFENSE ARTILLERY CREWMEMBER for this . She reports lower abdominal pain that feels like cramping and contractions. No fevers. No urinary symptoms. No GI symptoms. Physical Examination: Afebrile and vital signs unremarkable. Patient appears uncomfortable. Lower abdominal tenderness with light touch. Pelvic exam was chaperoned by nurse Fadi. She did have blood in her vaginal vault and coming through the cervix. No tissue was visualized. Cervix was fingertip. ED Course and Test Results: I reviewed her previous labs. She has had recurrent bleeding only for today and is hemodynamically normal. I do not believe repeat blood work will be of any utility at this point. Urinalysis showed blood but no signs of infection. Ultrasound was performed and showed that she no longer had an intrauterine which was visualized on the previous ultrasound. She does have some possible retained products in her uterus and her endometrium measures 46 mm. There is also a structure at her right ovary, and they cannot rule out an ectopic . I spoke with Tawanna Eric. She did receive paperwork recently from an agency in [place], and was concerned that this patient may have recently had an elective . On reevaluation, the patient is stable. She had been treated with [place] and subcutaneous morphine. Her vitals are unremarkable. Her bleeding is not excessive. No other associated issues. Per OB, she is appropriate for outpatient follow-up and will call the office for follow-up tomorrow. I did check her prescription database report. She was given a home pack of [place]. Return right away for any new or worsening issues. Otherwise, follow-up tomorrow. Treatment Plan: As above Disposition: Discharge Impression: 1. Miscarriage This note was generated with Bio[employer]ener[employer] dictation software. It may contain incorrect words, spelling, and punctuation that were not noted in review of the chart prior to signing ED Disposition - Plan for ED Patient: Chief Complaint: Vag Bld, Preg Referrals: Kevin Sotelo MD [Primary Care Provider] -
--- NOTE | 2018-10-29 00:59 | DCINST.ED_ITS ---
ED Disposition - Plan for ED Patient: Chief Complaint: Vag Bld, Preg Instructions: Discharge Instructions for Miscarriage Referrals: Tawanna Reyes CNM [Certified Nurse Equal Employment Opportunity Officer] -
[2018-10-29 01:11] VITALS: BP 118/75; PULSE 86; PULSE 94; RESP 16; TEMP 36.9; TEMP 37.1; O2SAT 97; O2SAT 98
[2018-10-29] MEDS: HYDROcodone Bitartrate/Apap 5/325 Tablet PO (01:13)
== END 2018-10-29 01:21 | disposition home or self-care (01) ==
PROVIDERS: Emergency Provider Emergency Medicine; Family Provider Family Medicine; PCP Family Medicine
DX: O03.9 Complete or unspecified spontaneous abortion without complication (principal)
CPT/HCPCS: 76817; 81001; 96372; 99283

== ENCOUNTER 2018-12-20 16:00 | Emergency (ER) | payer MEDICAID, SELFPAY ==
[2018-12-20 16:00] VITALS: BP 112/68; PULSE 86; RESP 14; TEMP 36.8; O2SAT 99; BMI 26.6
--- NOTE | 2018-12-20 16:48 | ED.VISSUMM ---
- ER Visit Summary Date of Service: 12/20/18 Chief Complaint: Headache History of Present Illness: The patient is a 23 F with a history of migraine headaches who presents with a headache that became worse today. Patient states she woke up with a headache this morning. Patient states the pain is similar to prior headaches. Patient states the pain is over the frontal and occipital areas. Patient admits to some nausea and vomiting. Patient admits to photophobia and blurred vision. Patient also admits to some frontal sinus pressure. Patient denies any rhinorrhea or sore throat. Patient denies any paresthesias or weakness. Patient does admit to some dizziness. Physical Examination: Vital signs are stable. Patient is afebrile. Patient is in no acute distress. Oral mucosa is pink and moist. Neck is supple. Trachea is midline. There is no JVD noted. Heart was regular rate and rhythm. Lungs are clear and equal bilateral. Abdomen is soft. Bowel sounds are normal. There is no tenderness. There is no guarding noted. Skin is warm dry. Cranial nerves II through XII are intact. There are no focal motor or sensory deficits noted. The remaining physical exam is within normal limits. Emergency Department Course and Treatment: Patient was given IV fluids, Reglan, Benadryl, and Toradol. Patient felt better on reevaluation. Patient was instructed to rest in a dark quiet room. Patient was instructed to follow-up with her primary care physician in 7-10 days. Patient understood and was agreeable with the plan. All questions were answered. Disposition: Discharge home Impression: Migraine headache This note was generated with [employer] dictation software. It may contain incorrect words, spelling, and punctuation that were not noted in review of the chart prior to signing ED Disposition - Plan for ED Patient: Disposition: Home or Assisted Living Diagnosis: Migraine headache Instructions: ED Headache Migraine Referrals: Kevin Sotelo MD [Primary Care Provider] -
[2018-12-20] MEDS: 0.9% Normal Saline 1,000 ML 999 ML IV (17:08)
[2018-12-20] MEDS: DiphenhydrAMINE 50 MG/ML Syringe 25 MG IV (17:09)
[2018-12-20] MEDS: Ketorolac 30 MG/ML Syringe IV (17:09)
[2018-12-20] MEDS: Metoclopramide 10 MG/2 ML Vial IV (17:09)
[2018-12-20 18:41] VITALS: RESP 18; O2SAT 98
== END 2018-12-20 18:43 | disposition home or self-care (01) ==
PROVIDERS: Emergency Provider Emergency Medicine; Family Provider Family Medicine; PCP Family Medicine
DX: G43.909 Migraine, unspecified, not intractable, without status migrainosus (principal); Z86.73 Personal history of transient ischemic attack (TIA), and cerebral infarction without residual deficits; F90.9 Attention-deficit hyperactivity disorder, unspecified type; F41.9 Anxiety disorder, unspecified; Z79.899 Other long term (current) drug therapy
CPT/HCPCS: 96361; 96374; 96375; 99285; J7030; A4216

== ENCOUNTER → 2019-09-02 | Outpatient (CLI) | payer OTHER, SELFPAY ==
[2019-09-02 09:09] VITALS: BMI 26.6
[2019-09-02 18:32] LABS: Chlamydia Trachomatis by PCR Negative (Negative); Neisserai gonorrhoeae by PCR Negative (Negative); Probe Check PASS; Sample Adequacy Control PASS; Specimen Processing Control PASS
[2019-09-06 15:59] LABS: HPV Reflexed? NOT INDICATED
== END | disposition home or self-care (01) ==
LOC: LABSPEC 14:52
PROVIDERS: Family Provider Family Medicine; PCP Family Medicine; Visit Provider Nurse Practitioner Women's Health
DX: Z12.4 Encounter for screening for malignant neoplasm of cervix (principal)
CPT/HCPCS: 87491; 87591; 88175; G0145

== ENCOUNTER → 2020-09-16 09:52 | Outpatient (CLI) | payer OTHER, MEDICAID, SELFPAY ==
[2020-09-03 09:38] VITALS: BMI 27.6
--- NOTE | 2020-09-16 09:54 | US_ITS ---
STUDY: THYROID ULTRASOUND REASON FOR EXAM: Female, 25 years old. THYROMEGALY TECHNIQUE: Ultrasound evaluation of the thyroid was performed with real-time and static cabello-scale imaging. COMPARISON: None. FINDINGS: RIGHT LOBE: The right lobe of the thyroid gland measures 4.8 cm x 1.4 cm x 1.8 cm. There is a homogeneous echotexture. There are no demonstrated solid, cystic or complex lesions. LEFT LOBE: The left lobe of the thyroid gland measures 4.5 cm x 1.3 cm x 1.3 cm. There is a homogeneous echotexture. There are no demonstrated solid, cystic or complex lesions. ISTHMUS: The isthmus measures 2.0 mm. The regional lymph nodes are normal. US/Thyroid IMPRESSION: Normal ultrasound examination of the thyroid. Electronically Signed: Yogesh Summers, at 12:39 EST , Service support ,
== END ==
PROVIDERS: PCP Family Medicine; Referring Provider Obstetrics & Gynecology; Visit Provider Obstetrics & Gynecology
DX: E01.0 Iodine-deficiency related diffuse (endemic) goiter (principal)
CPT/HCPCS: 76536

== ENCOUNTER → 2021-03-15 09:10 | Outpatient (CLI) | payer OTHER, MEDICAID, SELFPAY ==
[2021-02-09 09:05] VITALS: BMI 26.8
--- NOTE | 2021-03-15 09:12 | BI_ITS ---
MAMMOGRAPHY - BILATERAL DIAGNOSTIC REASON FOR EXAM: Female, 26 years old. Lump PERTINENT HISTORY: Non-contributory. TECHNIQUE: Digital examination. Mediolateral oblique (MLO) and craniocaudad (CC) views of both breasts were obtained. CAD: CAD was performed on this study. COMPARISON: 03/17/2016 FINDINGS: Breast Composition: The breasts are heterogeneously dense, which may obscure small masses. No mammographic evidence of abnormality. However, there is a palpable lump noted by the lead pony rider in the central left breast, in the retroareolar region. Further evaluation of this area with ultrasound is recommended. BI/DIAG MAMM W/CAD, BILAT IMPRESSION: Further ultrasonographic evaluation recommended, as described above. Recall Side: Left Breast ASSESSMENT CATEGORY: BIRADS Category 0: Incomplete. Need additional imaging evaluation. A letter regarding these results will be sent to the patient by the facility within 30 days. FOLLOW UP RECOMMENDATION: Ultrasound Recommended. (I) Approximately 10% of breast cancers are not detected by mammography. A normal mammogram should not delay biopsy of a clinically suspicious abnormality. Electronically Signed: Estrada Peacock MD at 11:18 EDT , Service support ,
--- NOTE | 2021-03-15 09:12 | US_ITS ---
STUDY: ULTRASOUND BREAST - LEFT REASON FOR EXAM: Female, 26 years old. Lump TECHNIQUE: Axial and longitudinal images of the LEFT breast were performed with a high resolution ultrasound transducer. # OF IMAGES: 20 COMPARISON: None. FINDINGS: LEFT Breast: Ultrasound evaluation of the left breast, in the area of concern, shows a well-defined hyperechoic subcutaneous nodule measuring 2.3 x 2.1 x 0.5 cm, likely a lipoma. There is no posterior shadowing or enhancement. There is no suspicious shadowing solid nodule, no architectural distortion or clustered shadowing calcifications. US/Breast Limited Unilateral IMPRESSION: Likely subcutaneous lipoma, no suspicious sonographic findings ASSESSMENT CATEGORY: BIRADS Category 2: Benign. A letter regarding these results will be sent to the patient by the facility within 30 days. Electronically Signed: Estrada Peacock MD at 11:53 EDT , Service support ,
== END ==
PROVIDERS: PCP Family Medicine; Referring Provider Nurse Practitioner Women's Health; Visit Provider Nurse Practitioner Women's Health
DX: N63.20 Unspecified lump in the left breast, unspecified quadrant (principal)
CPT/HCPCS: 76642; 77062; 77066; G0279

== ENCOUNTER 2022-02-10 15:51 | Outpatient (CLI) | payer MEDICAID, SELFPAY ==
[2022-02-17 18:55] LABS: HPV Reflexed? NOT INDICATED
== END 2022-02-10 23:59 | disposition home or self-care (01) ==
LOC: LABSPEC 15:52
PROVIDERS: PCP Family Medicine; Visit Provider Obstetrics & Gynecology
DX: Z12.4 Encounter for screening for malignant neoplasm of cervix (principal); N89.8 Other specified noninflammatory disorders of vagina
CPT/HCPCS: 87070; 87205; 88175; G0145

== ENCOUNTER 2024-11-06 13:04 | Inpatient (IN) | payer MEDICAID, SELFPAY ==
[2024-11-06] VITALS (28 sets, daily range): BP systolic 110–187; BP diastolic 75–113; PULSE 65–98; RESP 14–20; TEMP 36.3–36.6; O2SAT 10–100
[2024-11-06] MEDS: Cefazolin 2 GM in Syringe IV (13:05)
[2024-11-06] MEDS: Azithromycin 500 MG in 0.9% Normal Saline (250mL Bag) 250 ML 255 MG IV (13:06)
[2024-11-06 13:34] LABS: Absolute Lymphocyte Count 3.91 X10^3/uL (0.83-4.51); Absolute Neutrophil Count 6.5 X10^3/uL (2.0-7.7); Basophil# 0.03 X10^3/uL; Basophil% 0.3 % (0-1); Eosinophil# 0.01 X10^3/uL; Eosinophils% 0.1 % (0-5); Hematocrit 42.1 % (37-47); Hemoglobin 13.5 g/dL (12.0-15.0); Lymphocyte # 3.91 X10^3/ul (0.83-4.51); Lymphocyte % 34.7 % (19-41); Mean Corp Hgb Conc 32.1 g/dL (32-36); Monocyte# 0.67 X10^3/uL; Monocyte% 5.9 % (0-10); NRBC Flagged by Analyzer 0 % (0-5); Neutrophil # 6.51 X10^3/uL (2.7-7.7); Neutrophil % 57.7 % (47-70); Platelet Count 166 K/mm3 (150-450); RBC Distribution Width CV 14.4 % (11.6-14.6); RBC Distribution Width SD 41.5 fl (35.1-43.9); White Blood Count 11.3 K/mm3 (4.4-11.0)
[2024-11-06 14:43] LABS: Partial Thromboplast Time 27.3 Seconds (24.1-36.2)
[2024-11-06 14:44] LABS: Fibrinogen 591 mg/dl (203-444)
[2024-11-06] MEDS: Oxytocin 15 Units/NS 250ml 15 UNITS/250 ML IV.SOLN 83 UNITS IV (14:50)
[2024-11-06 14:57] LABS: Prothrombin Time (Protime)PT. 12.9 SECONDS (11.7-14.9)
[2024-11-06] MEDS: Ketorolac 30 MG/ML Syringe IV ×2 (15:31→22:09)
[2024-11-06] MEDS: HYDROmorphone 1 MG/ML Syringe IV ×2 (15:31→16:50)
--- NOTE | 2024-11-06 15:34 | HP.PCM.OB_ITS ---
HPI - General General Date of Admission: 11/06/24 HPI Narrative ANDRAE RIVAS, is a 29 F who presents via squad with acute heavy vaginal bleeding and severe constant abdominal pain. she did not have IV access upon presentation, and blood was in a poll on the bed and down her legs, she was writhing around and screaming about constant pain, that started ten minutes prior to EMS arriving. Upon evaluation on labor and delivery, intiial ultrasound suspected no FHT but upon further examination a faitn FHT in the 70s was seen so immediate delivery via csection was recommended, OB ERT called. patient states she had received care in [place] from a dr robledo and that her baby may have no kidneys, possible potter syndrome. this was the limited history taken prior to taking her back to csection for delivery. Maternal Data Information KATHERINE Calculator Estimated Delivery Date Method Current WG Current Estimate 12/15/24 Ultrasound #1 34w 3d Other Estimates 11/17/24 LMP (Uncertain) 38w 3d [facility] Medical History (Updated 11/06/24 @ 15:[address] Elaine Jones MD) Asthma Stroke Migraines Home Medications ?Medication ?Instructions ?Recorded ?Last Taken ?Type alprazolam 0.5 mg tablet 1 mg PO TID 04/16/17 Unknown History alprazolam 2 mg tablet 2 mg PO QHS 12/20/18 Unknown History rizatriptan 10 mg tablet (Maxalt) 10 mg PO ONCE 09/02/19 Unknown History ubrogepant 100 mg tablet (Ubrelvy) 100 mg PO ONCE 09/03/20 Unknown History rimegepant 75 mg disintegrating 75 mg PO ONCE PRN 02/09/21 Unknown History tablet (Nurtec ODT) dextroamphetamine-amphetamine ER 20 mg PO BID 02/10/22 Unknown History 20 mg 24hr capsule,extend release fremanezumab-vfrm 225 mg/1.5 mL 675 mg subcut [id number] 02/10/22 Unknown History subcutaneous auto-injector (Ajovy) hydrocortisone 2.5 % topical 1 applic topical BID #28.35 grams 02/10/22 Unknown Rx ointment nabumetone 500 mg tablet 500 mg PO BID #30 tabs 02/10/22 Unknown Rx fluconazole 150 mg tablet 150 mg PO ONCE #1 TAB 02/11/22 Unknown Rx (Diflucan) Allergy/AdvReac Type Severity Reaction Status Date / Time onabotulinumtoxinA (From Allergy Intermediate Itching Verified 02/10/22 12:00 Botox) adhesive tape (tape) Allergy Rash Verified 10/03/22 12:04 Latex, Natural Rubber Allergy Other Verified 02/10/22 12:00 verapamil Allergy Anaphylaxis Verified 02/10/22 12:00 Family History Father Heart disease Surgical History H/O knee surgery H/O dilation and curettage History of appendectomy History of lumpectomy History of tonsillectomy and adenoidectomy Social History (Updated 02/10/22 @ 12:03 by Fabienne Diane) number of children: 1 current occupational status: employed 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 Date Name GA/Weeks Outcome Route Bth Weight Gen Labor Lgth Anesthesia Del Locatn Provider FOB 12/31/13 Chao 36 live - full term 11 lbs Female [address] [facility] doctors Delivery Date: 12/31/13 Last Updated by: Elaine Jones MD shoulder dystocia clavicle fracture ROS ROS Narrative limited ROS due to stat performed Vital Signs Vital Signs Vital Signs: 11/06/24 14:46 11/06/24 15:01 11/06/24 15:16 Pulse Rate 98 92 92 Respiratory Rate 16 16 20 H Respiratory Pattern Normal Blood Pressure 146/87 H 137/96 H 144/93 H Blood Pressure Mean 106 109 110 Blood Pressure Source Monitor Monitor Monitor Blood Pressure Position Semi-Fowlers Semi-Fowlers Semi-Fowlers Blood Pressure Location Right Arm Right Arm Right Arm Pulse Ox 100 100 100 Oxygen Delivery Method Room Air Room Air Room Air Physical Exam Const alert General Appearance: in distress HEENT normocephalic Head and Scalp: atraumatic Neck full ROM, no lymphadenopathy and supple Lymph Lymphatic: no lymphadenopathy noted Chest inspection of chest normal Resp normal respiratory effort Cardio Rate: tachycardic GI GI Narrative: gravid tender over entire abdomen Inspection: gravid external exam normal Narrative: blood along perineum and all over legs, Manual OB Exam: presentation cephalic, dilated 4-5, effaced 70 and station -2 Extremity normal to inspection Skin Skin Narrative: rash like lesions on limbs and abdomen like small areas of excoriations from chronic itching or picking Psych mental status grossly normal Labs Labs Labs: Blood Type A POSITIVE Antibody Screen NEGATIVE Hct 37.4 % (37-47) Hgb 12.5 g/dL (12.0-15.0) Obstetrics Ultrasound Syphilis Total Ab Non-reactive Rubella IgG Antibody Equiv (Nonreactive) Hep Bs Antigen Non-Reactive (Nonreactive) Hepatitis C Antibody Non-Reactive (Nonreactive) HIV 1&2 Antibody Preliminary Reactive (Nonre active) H Rhogam given: No Assessment & Plan (1) Limited care in third trimester: (2) Placental abruption in third trimester: (3) : (4) bradycardia: PLAN: Plan admit and proceed with immediate
[2024-11-06 15:42] LABS: Rubella IgG Equiv (Nonreactive); Syphilis Antibodies Non-reactive
[2024-11-06] MEDS: Lactated Ringers 1,000 ML 999 ML IV ×2 (15:51→18:30)
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
--- NOTE | 2024-11-06 16:30 | NURSING ---
Pt refusing fundal checks at this time during recovery period. Explained why its important and patient states she understands but still refused. Karen scott.
[2024-11-06 17:02] LABS: Hepatitis B Surface Antigen Non-Reactive (Nonreactive); Hepatitis C Antibody Non-Reactive (Nonreactive)
[2024-11-06 17:23] LABS: Fibrinogen 506 mg/dl (203-444)
[2024-11-06 17:31] LABS: Absolute Lymphocyte Count 2.21 X10^3/uL (0.83-4.51); Absolute Neutrophil Count 15.2 X10^3/uL (2.0-7.7); Basophil# 0.06 X10^3/uL; Basophil% 0.3 % (0-1); Hematocrit 37.4 % (37-47); Hemoglobin 12.5 g/dL (12.0-15.0); Lymphocyte # 2.21 X10^3/ul (0.83-4.51); Lymphocyte % 11.9 % (19-41); Mean Corp Hgb Conc 33.4 g/dL (32-36); Mean Corpuscular Hgb 26.7 pg (27.0-32.0); Mean Corpuscular Volume 79.9 fL (81-99); Mean Platelet Vol. 11.6 fl (6.2-12.0); Monocyte% 4.8 % (0-10); NRBC Flagged by Analyzer 0 % (0-5); Neutrophil % 81.9 % (47-70); Platelet Count 152 K/mm3 (150-450); RBC Distribution Width CV 14.6 % (11.6-14.6); RBC Distribution Width SD 41.6 fl (35.1-43.9); Red Blood Count 4.68 M/mm3 (4.2-5.4); White Blood Count 18.6 K/mm3 (4.4-11.0)
[2024-11-06 18:11] LABS: HIV - WCH Preliminary Reactive (Nonreactive)
[2024-11-06] MEDS: Acetaminophen 500 MG Tablet 1000 MG PO (18:29)
[2024-11-06 19:00] LABS: Amphetamine Urine VISTA POSITIVE (<1000 ng/mL); Barbiturate Urine VISTA NEGATIVE (< 200 ng/mL); Benzodiazepine Urine VISTA POSITIVE (< 200 ng/mL); Cocaine Urine VISTA NEGATIVE (< 300 ng/mL); Ecstacy Urine VISTA POSITIVE (< 500 ng/mL); Methadone Urine VISTA NEGATIVE (< 300 ng/mL); PCP Urine VISTA NEGATIVE (< 25 ng/mL); THC Urine VISTA NEGATIVE (< 50 ng/mL); Vista UDS pH Range 5
[2024-11-06 19:03] LABS: Color, Urine Yellow (Yellow); Glucose, Dipstick 1000 mg/dl (Normal); Ketone-Dipstick 50 mg/dl (Negative); Mucous, Urine 0 SEEN /hpf (<or=2+); Nitrite-Dipstick Negative (Negative); Protein-Dipstick 500 mg/dl (Negative); Specific Gravity, Urine 1.025 (1.002-1.030); Urine Bilirubin Dipstick Negative (Negative); Urine Clarity Sl. Cloudy (Clear); Urine Urobilinogen Normal (Normal)
[2024-11-06] MEDS: Labetalol 100 MG Tablet PO (19:09)
[2024-11-06 19:39] LABS: Leukocyte Esterase-Dipstick 25 /ul (Negative)
[2024-11-06 19:41] LABS: Occult Blood-Urine 150 /ul (Negative)
[2024-11-06 19:42] LABS: Bacteria 2+ /hpf (None Seen); Squamous Epithelial Cells - UA 0-5 SEEN /hpf (5-10); White Blood Cells 25-50 SEEN /hpf (0-5)
[2024-11-06 19:43] LABS: Fine Granular Cast- Urine 0-5 SEEN /lpf (0-5); Hyaline Cast 0-5 SEEN /lpf (0-5); Transitional Epithelial - Ur 5-10 SEEN /hpf (0-5)
[2024-11-06 19:45] LABS: Red Blood Cells-Urine 10-25 SEEN /hpf (0-5)
[2024-11-06] MEDS: oxyCODONE 5 MG Tablet PO (20:32)
[2024-11-06] MEDS: LACTATED RINGERS 500 ML 999 ML IV (20:33)
--- NOTE | 2024-11-06 20:39 | EX.PCM.OBRPT ---
Assessment & Plan (1) bradycardia: (2) Limited care in third trimester: (3) Placental abruption in third trimester: (4) : Maternal Data Information KATHERINE Calculator Estimated Delivery Date Method Current WG Current Estimate 12/15/24 Ultrasound #1 34w 3d Other Estimates 11/17/24 LMP (Uncertain) 38w 3d Operative Report (OB) Cecarean Details Procedure Type: low transverse Date of Procedure: 11/06/24 Procedure Start Time: 13:04 Procedure Stop Time: 13:55 Pre-Operative Diagnosis: Other Other Pre-Operative diagnosis: see a/p comments Post-Operative Diagnosis: Same as Pre-operative diagnosis Classification: Scheduled Type of Anesthesia: General Special Medications: none Antibiotic Given: Ancef 2 grams IV x1 Drain: Omalley to straight drain Estimated Blood Loss: 800 Fluids Replaced: crystalloid Findings Description of surgery: approximately 500cc of blood was estimate to be lost prior to delivery, both at home and in the ambulance based on history and transport explanation, patient examination. Ultrasound confirmed FHT in the 70s so immediate delivery via csection was recommended and an OB ERT was called. After the patient was brought into the OR, IV access was obtained and labs drawn while abdomen was being prepped and omalley catheter was placed. Patient was placed under general anesthesia and incision was made with the scalpel and carried through to the underlying layer of fascia with the scalpel. Fascia was nicked in the midline and the incision extended laterally. The peritoneal incision was made bluntly and stretched and a low transverse uterine incision was made with the scalpel. chica bloody fluid poured from the uterine cavity. The infant's head was delivered atraumatically followed by the anterior and posterior shoulders without complication the rest of the infant delivered nc x 1. The cord was clamped and cut instantly and the was handed off to awaiting nurse. The placenta was delivered spontaneously immediately following and was noted to be intact and have a three-vessel cord with what appeared to be a near complete abruption with clot noted behind the majority of the placenta. Uterine appearance was WNL no extravasation into the myometrium. The uterus was exteriorized cleared of all clots and debris, and the incision was closed in a single layer closure using #1 Monocryl. The ovaries and fallopian tubes were noted to be within normal limits. The uterus was returned to the maternal abdomen and gutters were cleared of all clots and debris. The peritoneum was closed with 3-0 Monocryl in a running fashion. Gloves were changed prior to fascial closure. Fascia was closed with 0 PDS in a running fashion. Subcutaneous tissue was copiously irrigated and the skin was closed with 3-0 Monocryl in a subcuticular fashion. Mepilex dressing was applied without complication. Patient was taken to recovery in stable condition. Surgical findings: almost complete abruption, nl uterus tubes ovaries Amniotic Membrane Rupture Type: Artificial Placental Delivery Description: Spontaneous Specimen collected: Yes Description of specimen(s) removed: Placenta Cord Vessel Description: 3 Vessels Delayed Cord Clamping: No Business Travel Consultant vibratory pile driver: Yes Rim Turning Machine Operator: Edward Mosquera Tasks completed by energy assistant: Opening & closing, Retracting and Other (Assisting with delivery of the ) Additional nurses medical assistants phlebotomists?: No Complications Complications: No Admit VTE Documentation VTE Present on Admission: No VTE Mechan Device Prophylaxis: SCD's Procedures Urinary/Genital 52xxx-59xxx: 28218 delivery+[facility] Care([facility]) Multi Select Codes Urinary/Genital Urinary/Genital CPT Codes: 99357 delivery+[facility] Care([facility])
--- NOTE | 2024-11-06 20:50 | DCINST_ITS ---
Discharge Instructions Diet Discharge Diet: No restrictions DC O2, CPAP, BIPAP needs Home O2 Discharge instructions: No Dressing / Incision Discharge Activity: May Not Drive (for 2 weeks or while taking narcotic pain medications.), May Shower and May Take a Tub Bath (in 7 days) May shower in (days): 0 May resume sexual activity in: 4-6 weeks Weight Bearing Status: Full weight bearing Lifting Restrictions: 20 pounds Dressing / Incision Call your doctor if your incision/area has: Continuous Slow Oozing, Sudden Increased Bleeding, Increased Pain/ Swelling, Increased Redness and Foul Smelling Discharge Call your doctor if you observe: Fever of 101 or Higher and Using more than 1 pad per hour (for 2 hours) Suture Line Care: Avoid Pulling/Pushing and Avoid Pinching/Bending Cleanse incision/area with: Soap & Water and Keep Dressing Clean & Dry Follow Up Care Please Follow Up With: Elaine Jones MD When: Call [phone] to make an appointment for an incision check in 1-2 weeks. Test Results: Test results from this visit will be discussed in further detail at your follow- up appointment, if applicable. Discharge Plan Admission Admit Date/Time: 11/06/24 13:04 Attending Provider: Elaine Jones Primary Care Provider: Kevin Sotelo Instructions Patient Instructions: After a Discharge Orders/Prescriptions Prescriptions: New nifedipine 30 mg Tablet Extended Release 24hr 30 mg PO BID 30 Days Qty: 60 1RF labetalol 200 mg Tablet 200 mg PO BID 30 Days Qty: 60 1RF metformin 500 mg Tablet Extended Release 24 Hr 1,000 mg PO DAILYCM 30 Days Qty: 60 1RF naproxen 500 mg Tablet 500 mg PO Q8H 14 Days Qty: 42 0RF oxycodone 5 mg Tablet 5 mg PO Q4H PRN PRN (Reason: Pain Score 4-10) 7 Days Qty: 28 0RF metformin 500 mg tablet extended release 24 hr 1,000 mg PO DAILY Qty: 60 1RF nifedipine [Procardia XL] 30 mg tablet extended release 24hr 30 mg PO BID Qty: 60 2RF labetalol 200 mg tablet 200 mg PO BID Qty: 60 1RF No Action rizatriptan [Maxalt] 10 mg tablet 10 mg PO ONCE Ubrelvy 100 mg tablet 100 mg PO ONCE Rx Instructions: as a single dose; may repeat once in >=2 hours after first dose if needed Nurtec ODT 75 mg tablet,disintegrating 75 mg PO ONCE PRN Rx Instructions: as a single dose; not to exceed 1 dose per 24 hrs OR 15 doses per 30 days Ajovy Autoinjector 225 mg/1.5 mL auto-injector 675 mg subcut [id number] Rx Instructions: administer as 3 consecutive 225 mg injections nabumetone 500 mg tablet 500 mg PO BID Qty: 30 12RF hydrocortisone 2.5 % ointment 1 applic topical BID Qty: 28.35 1RF alprazolam 0.5 MG tablet 1 mg PO TID Patient Comments: PATIENT HAS NOT HAD ANY FOR A COUPLE OF WEEKS. dextroamphetamine-amphetamine 20 mg capsule,extended release 24hr 20 mg PO BID alprazolam 2 MG tablet 2 mg PO QHS fluconazole [Diflucan] 150 mg tablet 150 mg PO ONCE Qty: 1 0RF Referrals / Follow Up: Kevin Sotelo MD [Primary Care Provider] - Disposition Disposition (needs filled in before D/C Order can be placed): Home, Self Care
[2024-11-06] MEDS: Lactated Ringers 1,000 ML 50 ML IV (21:06)
[2024-11-06] MEDS: Magnesium Sulfate 4gm/100mL 4 GM/100 ML IV.SOLN. IV (21:29)
[2024-11-06] MEDS: Labetalol 200 MG Tablet PO (21:35)
[2024-11-06] MEDS: Magnesium Sulfate 4gm/100mL 2 GM/50 ML IV.SOLN. IV (21:54)
[2024-11-06] MEDS: 0.9% Saline Lock 10 ML Syringe IV ×2 (21:57→22:09)
[2024-11-06] MEDS: Magnesium Sulfate 20 GM/500 ML BAG IV (22:09)
[2024-11-06 22:16] LABS: Protein, Urine (Random) 239.9 mg/dL (<11.9); Protein:Creat Ratio 3224 mg/g CRE (0-200)
[2024-11-06 22:33] LABS: ALB/GLOB Ratio 0.5 RATIO (0.9-2.4); AST(SGOT) 25 U/L (15-37); Alanine Aminotransfer ALT/SGPT 13 U/L (13-56); Albumin, Serum 1.5 g/dL (3.2-5.0); Alkaline Phosphatase 114 U/L (45-117); Anion Gap 8 (5-15); BUN 16 mg/dL (7-18); Calcium,Total 7.6 mg/dL (8.5-10.1); Chloride 99 mmol/L (98-107); Creatinine, Serum 1.33 mg/dL (0.55-1.02); EST Glomerular Filtration Rate 49 mL/min (>60); Est Glom Filt Rate - Afr Amer 60 mL/min (>60); Globulin 3.2 g/dL (2.2-4.2); Glucose 289 mg/dL (74-106); Potassium 5.6 mmol/L (3.5-5.1); Protein, Total 4.7 g/dL (6.4-8.2); Sodium Level 128 mmol/L (136-145)
[2024-11-07] VITALS (27 sets, daily range): BP systolic 104–152; BP diastolic 68–104; PULSE 54–81; RESP 11–20; TEMP 36–36.5; O2SAT 98–100; BMI 31.8
--- NOTE | 2024-11-07 01:01 | EKG12_ITS ---
Test Reason : ANEMIA Blood Pressure : */* mmHG Vent. Rate : 54 BPM Atrial Rate : 54 BPM P-R Int : 186 ms QRS Dur : 88 ms QT Int : 550 ms P-R-T Axes : 40 39 56 degrees QTcB Int : 521 ms Sinus bradycardia Prolonged QT Abnormal ECG Confirmed by Dre Dillon ([id number]), news copy editor ISAIAH NUNES ([id number]) on 11/07/2024 1:15:15 PM Referred By: Elaine Jones Confirmed By: Dre Dillon
--- NOTE | 2024-11-07 01:08 | PCM.PN.OB ---
Subjective Subjective patients labs reviewed and noted to be abnormal, EKG ordered and repeat labs ordered, insulin sliding scale ordered. patient asked further about history and denies any diabetes or kidney disease history. denies any chest pain or shortness of breath. no HERNADEZ BV. no neurologic symptoms at present. patient was noncompliant and not receiving care so no diabetes screening or bp screening performed during . no history of hypertension. Objective Data Objective Data Vital Signs: Vital Signs Temp Pulse Resp BP Pulse Ox O2 Del Method 97.7 F L 62 16 106/68 99 Room Air 11/07/24 00:30 11/07/24 00:30 11/07/24 00:30 11/07/24 00:30 11/07/24 00:30 11/07/24 00:30 Oxygen Delivery Method Room Air Intake & Output: Intake and Output for Last 24 Hours 11/05/24 11/06/24 11/07/24 23:59 23:59 23:59 Intake Total 3325 / 3375 150 / 150 Output Total 1974 / 1974 50 / 50 Balance 1350 / 1400 100 / 100 Lab / Micro Data 11/07/24 01:39 11/06/24 21:50 Labs: Laboratory Results - last 24 hr 11/06/24 13:08: WBC 11.3 H 11/06/24 13:08: WBC Cancelled, Corrected WBC Cancelled, RBC 5.20 11/06/24 13:08: RBC Cancelled, Hgb 13.5 11/06/24 13:08: Hgb Cancelled, Hct 42.1 11/06/24 13:08: Hct Cancelled, MCV 81.0 11/06/24 13:08: MCV Cancelled, MCH 26.0 L 11/06/24 13:08: MCH Cancelled, MCHC 32.1 11/06/24 13:08: MCHC Cancelled, RDW Std Deviation 41.5 11/06/24 13:08: RDW Std Deviation Cancelled, RDW Coeff of Betsey 14.4 11/06/24 13:08: RDW Coeff of Betsey Cancelled, Plt Count 166 11/06/24 13:08: Plt Count Cancelled, MPV 12.0 11/06/24 13:08: MPV Cancelled, Immature Gran % (Auto) 1.300 H 11/06/24 13:08: Immature Gran % (Auto) Cancelled, Neut % (Auto) 57.7 11/06/24 13:08: Neut % (Auto) Cancelled, Lymph % (Auto) 34.7 11/06/24 13:08: Lymph % (Auto) Cancelled, [place] % (Auto) 5.9 11/06/24 13:08: [place] % (Auto) Cancelled, Eos % (Auto) 0.1 11/06/24 13:08: Eos % (Auto) Cancelled, Baso % (Auto) 0.3 11/06/24 13:08: Baso % (Auto) Cancelled, Absolute Neuts (auto) 6.5 11/06/24 13:08: Absolute Neuts (auto) Cancelled, Absolute Lymphs (auto) 3.91 11/06/24 13:08: Absolute Lymphs (auto) Cancelled, Total Counted Cancelled, Neutrophils % (Manual) Cancelled, Band Neutrophils % Cancelled, Lymphocytes % (Manual) Cancelled, Monocytes % (Manual) Cancelled, Eosinophils % (Manual) Cancelled, Basophils % (Manual) Cancelled, Metamyelocytes % Cancelled, Myelocytes % Cancelled, Promyelocytes % Cancelled, Blast Cells % Cancelled, Plasma Cell % (Manual) Cancelled, Other Cells % Cancelled, Nucleated RBC % 0 11/06/24 13:08: Nucleated RBC % Cancelled, Nucleated RBCs/100 WBC Cancelled, Differential Comment Cancelled, Diff Path Review Cancelled, Hypersegmented Neuts Cancelled, Atypical Lymphocytes Cancelled, Reactive Lymphocytes Cancelled, Smudge Cells Cancelled, Toxic Granulation Cancelled, Toxic Vacuolation Cancelled, Dohle Bodies Cancelled, Ann Marie Rods Cancelled, Platelet Estimate Cancelled, Plt Morphology Comment Cancelled, RBC Morphology Cancelled 11/06/24 13:08: RBC Morphology Cancelled, Polychromasia Cancelled, Hypochromasia Cancelled, Basophilic Stippling Cancelled, Anisocytosis Cancelled, Microcytosis Cancelled, Macrocytosis Cancelled, Spherocytes Cancelled, Sickle Cells Cancelled, Target Cells Cancelled, Tear Drop Cells Cancelled, Ovalocytes Cancelled, Stomatocytes Cancelled, [place] Bodies Cancelled, [place] Cells Cancelled, Bite Cells Cancelled, Crenated Cell Cancelled, Acanthocytes (Spur) Cancelled, Rouleaux Cancelled, Schistocytes Cancelled, PT 12.9, INR 1.0, APTT 27.3, Fibrinogen 591 H, Blood Type A POSITIVE, Antibody Screen NEGATIVE, Crossmatch See Detail 11/06/24 14:20: Syphilis Total Ab Non-reactive 11/06/24 14:20: Syphilis Total Ab Cancelled, Hep Bs Antigen Non-Reactive, Hepatitis C Antibody Non-Reactive, HIV 1&2 Antibody Preliminary Reactive H, Rubella IgG Antibody Equiv 11/06/24 16:53: Fibrinogen 506 H 11/06/24 17:10: WBC 18.6 H, RBC 4.68, Hgb 12.5, Hct 37.4, MCV 79.9 L, MCH 26.7 L, MCHC 33.4, RDW Std Deviation 41.6, RDW Coeff of Betsey 14.6, Plt Count 152, MPV 11.6, Immature Gran % (Auto) 1.100 H, Neut % (Auto) 81.9 H, Lymph % (Auto) 11.9 L, [place] % (Auto) 4.8, Eos % (Auto) 0.0, Baso % (Auto) 0.3, Absolute Neuts (auto) 15.2 H, Absolute Lymphs (auto) 2.21, Nucleated RBC % 0 11/06/24 18:00: Urine Color Yellow, Urine Clarity Sl. Cloudy, Urine pH 5.0, Ur Specific [place] 1.025, Urine Protein 500 H, Urine Glucose (UA) 1000 H, Urine Ketones 50 H, Urine Occult Blood 150 H, Urine Nitrite Negative, Urine Bilirubin Negative, Urine Urobilinogen Normal, Ur Leukocyte Esterase 25 H, Urine RBC 10-25 SEEN, Urine WBC 25-50 SEEN, Ur Squamous Epith Cells 0-5 SEEN, Ur Transition Epith Cell 5-10 SEEN, Urine Bacteria 2+, Hyaline Casts 0-5 SEEN, Fine Granular Casts 0-5 SEEN, Urine Mucus 0 SEEN, Urine Opiates Screen POSITIVE H, Urine Methadone Screen NEGATIVE, Ur Barbiturates Screen NEGATIVE, Ur Phencyclidine Scrn NEGATIVE, Ur Amphetamines Screen POSITIVE H, MDMA (Ecstasy) Screen POSITIVE H, U Benzodiazepines Scrn POSITIVE H, Urine Cocaine Screen NEGATIVE, U Cannabinoids Screen NEGATIVE, Ur Drug Screen Comment 11/06/24 21:40: U Random Total Protein 239.9 H, Urine Creatinine 74.40, Protein/Creatinin Ratio 3224 H 11/06/24 21:50: Sodium 128 L, Potassium 5.6 H, Chloride 99, Carbon Dioxide 21.0, Anion Gap 8, BUN 16, Creatinine 1.33 H, Est GFR (MDRD) Af Amer 60, Est GFR (MDRD) Non-Af 49 L, BUN/Creatinine Ratio 12.0, Glucose 289 H, Calcium 7.6 L, Total Bilirubin 0.20, AST 25, ALT 13, Alkaline Phosphatase 114, Total Protein 4.7 L, Albumin 1.5 L, Globulin 3.2, Albumin/Globulin Ratio 0.5 L Micro: Microbiology 11/06/24 18:00 Urine, Clean Catch Chlamydia/Neisseria (PCR) - Final Assessment & Plan (1) Preeclampsia, severe: (2) delivery delivered: COMMENT: LTCS stat cs due to abruption boy 34 weeks no care (3) Positive urine drug screen: (4) bradycardia: (5) Limited care in third trimester: (6) Placental abruption in third trimester: (7) : PLAN: Plan start SSI, ekg now, repeat labs, stop toradol. check mag level and hga1c. continue magnesium sulfate, bps significantly improved on antihypertensives and magnesium sulfate. will change to procardia. serum acetone and venous blood gas ordered.
[2024-11-07 01:27] LABS: Bedside Glucose 272 mg/dL (74-106)
[2024-11-07] MEDS: Acetaminophen 500 MG Tablet 1000 MG PO ×4 (01:27→18:58)
[2024-11-07] MEDS: HYDROmorphone 1 MG/ML Syringe IV ×2 (01:27→08:13)
--- NOTE | 2024-11-07 02:16 | CON.PCM.HO_ITS ---
HPI Consult Data Date of Consult: 11/07/24 HPI Narrative HPI Narrative: ANDRAE RIVAS, is a 29 F who presents [facility] Medical History (Updated 11/07/24 @ 01:[address] Elaine Jones MD) Asthma Stroke Migraines Home Medications ?Medication ?Instructions ?Recorded ?Last Taken ?Type alprazolam 0.5 mg tablet 1 mg PO TID 04/16/17 Unknown History alprazolam 2 mg tablet 2 mg PO QHS 12/20/18 Unknown History rizatriptan 10 mg tablet (Maxalt) 10 mg PO ONCE 09/02/19 Unknown History ubrogepant 100 mg tablet (Ubrelvy) 100 mg PO ONCE 09/03/20 Unknown History rimegepant 75 mg disintegrating 75 mg PO ONCE PRN 02/09/21 Unknown History tablet (Nurtec ODT) dextroamphetamine-amphetamine ER 20 mg PO BID 02/10/22 Unknown History 20 mg 24hr capsule,extend release fremanezumab-vfrm 225 mg/1.5 mL 675 mg subcut [id number] 02/10/22 Unknown History subcutaneous auto-injector (Ajovy) hydrocortisone 2.5 % topical 1 applic topical BID #28.35 grams 02/10/22 Unknown Rx ointment nabumetone 500 mg tablet 500 mg PO BID #30 tabs 02/10/22 Unknown Rx fluconazole 150 mg tablet 150 mg PO ONCE #1 TAB 02/11/22 Unknown Rx (Diflucan) Allergy/AdvReac Type Severity Reaction Status Date / Time onabotulinumtoxinA (From Allergy Intermediate Itching Verified 02/10/22 12:00 Botox) adhesive tape (tape) Allergy Rash Verified 10/03/22 12:04 Latex, Natural Rubber Allergy Other Verified 02/10/22 12:00 verapamil Allergy Anaphylaxis Verified 02/10/22 12:00 Family History Father Heart disease Surgical History H/O knee surgery H/O dilation and curettage History of appendectomy History of lumpectomy History of tonsillectomy and adenoidectomy Social History (Updated 02/10/22 @ 12:03 by Fabienne Diane) number of children: 1 current occupational status: employed 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 [employer] Smoking Status: Never smoker alcohol intake: current alcohol intake frequency: holidays/special occasions only substance use type: does not use caffeine: Yes what type of physical activity do you participate in: walking frequency: 3-4 times per week seatbelt use: always do you feel safe at home: Yes 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 [employer] Lab / Micro Data 11/07/24 01:39 11/06/24 21:50 Labs: Laboratory Results - last 24 hr 11/06/24 13:08: WBC 11.3 H 11/06/24 13:08: WBC Cancelled, Corrected WBC Cancelled, RBC 5.20 11/06/24 13:08: RBC Cancelled, Hgb 13.5 11/06/24 13:08: Hgb Cancelled, Hct 42.1 11/06/24 13:08: Hct Cancelled, MCV 81.0 11/06/24 13:08: MCV Cancelled, MCH 26.0 L 11/06/24 13:08: MCH Cancelled, MCHC 32.1 11/06/24 13:08: MCHC Cancelled, RDW Std Deviation 41.5 11/06/24 13:08: RDW Std Deviation Cancelled, RDW Coeff of Betsey 14.4 11/06/24 13:08: RDW Coeff of Betsey Cancelled, Plt Count 166 11/06/24 13:08: Plt Count Cancelled, MPV 12.0 11/06/24 13:08: MPV Cancelled, Immature Gran % (Auto) 1.300 H 11/06/24 13:08: Immature Gran % (Auto) Cancelled, Neut % (Auto) 57.7 11/06/24 13:08: Neut % (Auto) Cancelled, Lymph % (Auto) 34.7 11/06/24 13:08: Lymph % (Auto) Cancelled, [place] % (Auto) 5.9 11/06/24 13:08: [place] % (Auto) Cancelled, Eos % (Auto) 0.1 11/06/24 13:08: Eos % (Auto) Cancelled, Baso % (Auto) 0.3 11/06/24 13:08: Baso % (Auto) Cancelled, Absolute Neuts (auto) 6.5 11/06/24 13:08: Absolute Neuts (auto) Cancelled, Absolute Lymphs (auto) 3.91 11/06/24 13:08: Absolute Lymphs (auto) Cancelled, Total Counted Cancelled, Neutrophils % (Manual) Cancelled, Band Neutrophils % Cancelled, Lymphocytes % (Manual) Cancelled, Monocytes % (Manual) Cancelled, Eosinophils % (Manual) Cancelled, Basophils % (Manual) Cancelled, Metamyelocytes % Cancelled, Myelocytes % Cancelled, Promyelocytes % Cancelled, Blast Cells % Cancelled, Plasma Cell % (Manual) Cancelled, Other Cells % Cancelled, Nucleated RBC % 0 11/06/24 13:08: Nucleated RBC % Cancelled, Nucleated RBCs/100 WBC Cancelled, Differential Comment Cancelled, Diff Path Review Cancelled, Hypersegmented Neuts Cancelled, Atypical Lymphocytes Cancelled, Reactive Lymphocytes Cancelled, Smudge Cells Cancelled, Toxic Granulation Cancelled, Toxic Vacuolation Cancelled, Dohle Bodies Cancelled, Ann Marie Rods Cancelled, Platelet Estimate Cancelled, Plt Morphology Comment Cancelled, RBC Morphology Cancelled 11/06/24 13:08: RBC Morphology Cancelled, Polychromasia Cancelled, Hypochromasia Cancelled, Basophilic Stippling Cancelled, Anisocytosis Cancelled, Microcytosis Cancelled, Macrocytosis Cancelled, Spherocytes Cancelled, Sickle Cells Cancelled, Target Cells Cancelled, Tear Drop Cells Cancelled, Ovalocytes Cancelled, Stomatocytes Cancelled, [place] Bodies Cancelled, [place] Cells Cancelled, Bite Cells Cancelled, Crenated Cell Cancelled, Acanthocytes (Spur) Cancelled, Rouleaux Cancelled, Schistocytes Cancelled, PT 12.9, INR 1.0, APTT 27.3, Fibrinogen 591 H, Blood Type A POSITIVE, Antibody Screen NEGATIVE, Crossmatch See Detail 11/06/24 14:20: Syphilis Total Ab Non-reactive 11/06/24 14:20: Syphilis Total Ab Cancelled, Hep Bs Antigen Non-Reactive, Hepatitis C Antibody Non-Reactive, HIV 1&2 Antibody Preliminary Reactive H, Rubella IgG Antibody Equiv 11/06/24 16:53: Fibrinogen 506 H 11/06/24 17:10: WBC 18.6 H, RBC 4.68, Hgb 12.5, Hct 37.4, MCV 79.9 L, MCH 26.7 L , MCHC 33.4, RDW Std Deviation 41.6, RDW Coeff of Betsey 14.6, Plt Count 152, MPV 11.6, Immature Gran % (Auto) 1.100 H, Neut % (Auto) 81.9 H, Lymph % (Auto) 11.9 L, [place] % (Auto) 4.8, Eos % (Auto) 0.0, Baso % (Auto) 0.3, Absolute Neuts (auto) 15.2 H, Absolute Lymphs (auto) 2.21, Nucleated RBC % 0 11/06/24 18:00: Urine Color Yellow, Urine Clarity Sl. Cloudy, Urine pH 5.0, Ur Specific [place] 1.025, Urine Protein 500 H, Urine Glucose (UA) 1000 H, Urine Ketones 50 H, Urine Occult Blood 150 H, Urine Nitrite Negative, Urine Bilirubin Negative, Urine Urobilinogen Normal, Ur Leukocyte Esterase 25 H, Urine RBC 10-25 SEEN, Urine WBC 25-50 SEEN, Ur Squamous Epith Cells 0-5 SEEN, Ur Transition Epith Cell 5-10 SEEN, Urine Bacteria 2+, Hyaline Casts 0-5 SEEN, Fine Granular Casts 0-5 SEEN, Urine Mucus 0 SEEN, Urine Opiates Screen POSITIVE H, Urine Methadone Screen NEGATIVE, Ur Barbiturates Screen NEGATIVE, Ur Phencyclidine Scrn NEGATIVE, Ur Amphetamines Screen POSITIVE H, MDMA (Ecstasy) Screen POSITIVE H, U Benzodiazepines Scrn POSITIVE H, Urine Cocaine Screen NEGATIVE, U Cannabinoids Screen NEGATIVE, Ur Drug Screen Comment 11/06/24 21:40: U Random Total Protein 239.9 H, Urine Creatinine 74.40, P rotein/Creatinin Ratio 3224 H 11/06/24 21:50: Sodium 128 L, Potassium 5.6 H, Chloride 99, Carbon Dioxide 21.0, Anion Gap 8, BUN 16, Creatinine 1.33 H, Est GFR (MDRD) Af Amer 60, Est GFR (MDRD) Non-Af 49 L, BUN/Creatinine Ratio 12.0, Glucose 289 H, Calcium 7.6 L, Total Bilirubin 0.20, AST 25, ALT 13, Alkaline Phosphatase 114, Total Protein 4.7 L, Albumin 1.5 L, Globulin 3.2, Albumin/Globulin Ratio 0.5 L 11/07/24 01:05: POC Glucose 272 H 11/07/24 01:39: WBC 7.6, RBC 2.23 L, Hgb 5.8 L*, Hct 19.1 L, MCV 85.7 D, MCH 26.0 L, MCHC 30.4 L D, RDW Std Deviation 44.5 H, RDW Coeff of Betsey 14.4, Plt Count 66 L, MPV 11.3 Micro: Microbiology 11/06/24 18:00 Urine, Clean Catch Chlamydia/Neisseria (PCR) - Final
--- NOTE | 2024-11-07 02:23 | PCM.PN.BLA ---
Progress Note stat labs of anemia and thrombocytopenia received and will transfer to ICU, discussed with attending. transfuse 2 units PRBCs and 1 unit FFP. minimal vaginal bleeding and abdomen tender on exam but appropriate for postoperative changes. suspect still normalizing after abruption and blood loss from delivery. limited bedside ultrasound performed by physician and uterine fundus firm with no retained clot seen, no obvious signs of internal bleeding at this time, will replace blood products and monitor closely, consider further imaging as indicated. will place additional blood products on hold.
[2024-11-07 03:25] LABS: Hematocrit 28.5 % (37-47); Hemoglobin 9.3 g/dL (12.0-15.0); Mean Corp Hgb Conc 32.6 g/dL (32-36); Mean Corpuscular Hgb 26.5 pg (27.0-32.0); Mean Corpuscular Volume 81.2 fL (81-99); Mean Platelet Vol. 12.4 fl (6.2-12.0); Platelet Count 126 K/mm3 (150-450); RBC Distribution Width CV 14.5 % (11.6-14.6); RBC Distribution Width SD 41.7 fl (35.1-43.9); Red Blood Count 3.51 M/mm3 (4.2-5.4)
[2024-11-07 03:34] LABS: Bedside Glucose 306 mg/dL (74-106)
[2024-11-07 03:37] LABS: International Normalized Ratio 0.9; Partial Thromboplast Time 25.5 Seconds (24.1-36.2); Prothrombin Time (Protime)PT. 12.8 SECONDS (11.7-14.9)
[2024-11-07 03:48] LABS: Scan Indicated on CBC? Y/N NO
[2024-11-07 04:03] LABS: ALB/GLOB Ratio 0.5 RATIO (0.9-2.4); AST(SGOT) 21 U/L (15-37); Alanine Aminotransfer ALT/SGPT 14 U/L (13-56); Albumin, Serum 1.5 g/dL (3.2-5.0); Alkaline Phosphatase 111 U/L (45-117); Anion Gap 7 (5-15); BUN 18 mg/dL (7-18); BUN/Creat Ratio 12.9 RATIO (10-20); Calcium,Total 7.7 mg/dL (8.5-10.1); Chloride 101 mmol/L (98-107); EST Glomerular Filtration Rate 46 mL/min (>60); Est Glom Filt Rate - Afr Amer 56 mL/min (>60); Globulin 3.3 g/dL (2.2-4.2); Glucose 315 mg/dL (74-106); Magnesium 6.2 mg/dL (1.6-2.6); Potassium 5.3 mmol/L (3.5-5.1); Protein, Total 4.8 g/dL (6.4-8.2); Sodium Level 130 mmol/L (136-145)
--- NOTE | 2024-11-07 04:30 | NURSING ---
Pt would not allow this RN to complete fundal check due to pt complaint of pain when RN up to ICU to assess. Bleeding WNL. Will attempt to check again in four hours.
[2024-11-07 05:47] LABS: Blood Gas Specimen Type VEN; O2 Delivery Device Not entered; SITE Not entered; VBG BASE EXCESS -10 mmol/L (-1.0-3.5); VBG Bicarbonate 16 mmol/L (22-26); VBG PO2 49 mmHg (25-40); VBG SO2 83 % (50-70); VBG TCO2 16 mmol/L (23-33); VBG pCO2 28.6 mmHg (41-51); VBG pH 7.34 (7.32-7.42)
[2024-11-07] MEDS: 0.9% Saline Lock 10 ML Syringe IV (05:52)
[2024-11-07] MEDS: oxyCODONE 5 MG Tablet PO ×5 (05:55→23:33)
--- NOTE | 2024-11-07 06:00 | PCM.PN.BLA ---
Progress Note reviewed with nursing the new lab results, suspect previous were severe anemia was due to dilution effect from drawing blood near IV, will finish 1 unit of blood being transfused and will hold additional products. continue to monitor in ICU for now to confirm stability, treat elevated blood sugars, will transfer to floor later today if continues to be stable. Assessment & Plan Assessment/Plan (1) HIV positive: (2) Multiple sclerosis: (3) Anemia due to blood loss, acute: (4) Diabetes: (5) Preeclampsia, severe: (6) delivery delivered: (7) Positive urine drug screen: (8) bradycardia: (9) Limited care in third trimester: (10) Placental abruption in third trimester: (11) :
--- NOTE | 2024-11-07 06:24 | PN.HOSP_ITS ---
Hospitalist Note Patient had emergent done earlier she also today due to placental abruption. Later in the evening she had a CBC drawn that showed a hemoglobin significantly decreased to 5.8 from 12. She also had slightly worsening creatinine with mild hyperkalemia. Because of these findings, hospitalist was consulted by Dr. Jones with plan to [facility] to [facility]. Patient's blood pressures were low normal and heart rate was in the 60s to 70s but she had received labetalol. On arrival to the ICU she remai eleazar hemodynamically stable. On discussion with lab, there was concern that the labs drawn earlier were inaccurate. Repeat labs were drawn and showed a hemoglobin of 9.2. Patient did receive 1 unit of blood. As patient is stable, plan will be to move her back [facility] today and no hospitalist consult as needed.
[2024-11-07] MEDS: Insulin Lispro 100 UNIT/ML INSULN.PEN SC ×4 (08:11→22:23)
[2024-11-07] MEDS: Magnesium Sulfate 20 GM/500 ML BAG IV (08:11)
--- NOTE | 2024-11-07 08:15 | NURSING ---
late entry due to pt care: This RN called report to ICU nurse around 0230 and pt transferred to ICU at [address] Jones accompanying. Provider on unit continuously reviewing pt chart and assessing pt from 0100 until transfer time. See orders placed.
[2024-11-07 08:24] LABS: Bedside Glucose 268 mg/dL (74-106)
[2024-11-07 09:47] LABS: Hemoglobin A1c 9.7 % (3.8-5.6)
[2024-11-07] MEDS: Senna/Docusate Sodium 1 Tablet PO (10:14)
[2024-11-07] MEDS: NIFEdipine 30 MG Tablet PO (10:14)
[2024-11-07] MEDS: Lactated Ringers 1,000 ML 100 ML IV (10:14)
[2024-11-07 12:10] LABS: Bedside Glucose 209 mg/dL (74-106)
[2024-11-07 12:57] LABS: Absolute Neutrophil Count 6.6 X10^3/uL (2.0-7.7); Basophil# 0.02 X10^3/uL; Basophil% 0.2 % (0-1); Eosinophil# 0.01 X10^3/uL; Eosinophils% 0.1 % (0-5); Hematocrit 31.8 % (37-47); Hemoglobin 10.3 g/dL (12.0-15.0); Lymphocyte % 27.4 % (19-41); Mean Corp Hgb Conc 32.4 g/dL (32-36); Mean Corpuscular Volume 83.5 fL (81-99); Mean Platelet Vol. 12.4 fl (6.2-12.0); Monocyte# 0.44 X10^3/uL; Monocyte% 4.5 % (0-10); NRBC Flagged by Analyzer 0 % (0-5); Neutrophil # 6.57 X10^3/uL (2.7-7.7); Neutrophil % 66.8 % (47-70); Platelet Count 113 K/mm3 (150-450); RBC Distribution Width CV 14.7 % (11.6-14.6); RBC Distribution Width SD 43.8 fl (35.1-43.9); Red Blood Count 3.81 M/mm3 (4.2-5.4); White Blood Count 9.8 K/mm3 (4.4-11.0)
[2024-11-07 13:23] LABS: ALB/GLOB Ratio 0.4 RATIO (0.9-2.4); AST(SGOT) 25 U/L (15-37); Alanine Aminotransfer ALT/SGPT 14 U/L (13-56); Albumin, Serum 1.6 g/dL (3.2-5.0); Alkaline Phosphatase 116 U/L (45-117); Anion Gap 10 (5-15); BUN 16 mg/dL (7-18); BUN/Creat Ratio 12.2 RATIO (10-20); Calcium,Total 7.3 mg/dL (8.5-10.1); Chloride 99 mmol/L (98-107); Creatinine, Serum 1.31 mg/dL (0.55-1.02); EST Glomerular Filtration Rate 50 mL/min (>60); Est Glom Filt Rate - Afr Amer 61 mL/min (>60); Estimated Creatinine Clearance 67.66 ml/min; Globulin 3.6 g/dL (2.2-4.2); Glucose 203 mg/dL (74-106); Potassium 4.3 mmol/L (3.5-5.1); Protein, Total 5.2 g/dL (6.4-8.2); Sodium Level 128 mmol/L (136-145)
[2024-11-07 13:53] LABS: Magnesium 8.1 mg/dL (1.6-2.6)
--- NOTE | 2024-11-07 14:28 | PN.OBGYN_ITS ---
Subjective Subjective Patient is laying in bed comfortably without complaints. She states that she slept on an off during the night. Lochia is mild and pain is minimal. Nurse reports that her urine output and vitals are stable. [facility] called to ask about the preliminary HIV test. I explained to her that we will need a viral load. Objective Data Objective Data Vital Signs: Vital Signs Temp Pulse Resp BP Pulse Ox O2 Del Method 96.9 F L 60 18 127/99 H 100 Room Air 11/07/24 12:01 11/07/24 14:00 11/07/24 14:00 11/07/24 14:00 11/07/24 14:00 11/07/24 14:00 Oxygen Delivery Method Room Air Weight: 191 lb 2.252 oz Body Mass Index (BMI) 31.8 Intake & Output: Intake and Output for Last 24 Hours 11/05/24 11/06/24 11/07/24 23:59 23:59 23:59 Intake Total 3325 / 3375 2590.00 / 2590.00 Output Total 1974 / 1974 1125 / 1125 Balance 1350 / 1400 1465.00 / 1465.00 Lab / Micro Data 11/07/24 12:35 11/07/24 12:35 Labs: Laboratory Results - last 24 hr 11/06/24 13:08: PT 12.9, INR 1.0, APTT 27.3, Fibrinogen 591 H, Crossmatch See Detail 11/06/24 14:20: Syphilis Total Ab Non-reactive 11/06/24 14:20: Syphilis Total Ab Cancelled, Hep Bs Antigen Non-Reactive, Hepatitis C Antibody Non-Reactive, HIV 1&2 Antibody Preliminary Reactive H, Rubella IgG Antibody Equiv 11/06/24 16:53: Fibrinogen 506 H 11/06/24 17:10: WBC 18.6 H, RBC 4.68, Hgb 12.5, Hct 37.4, MCV 79.9 L, MCH 26.7 L , MCHC 33.4, RDW Std Deviation 41.6, RDW Coeff of Betsey 14.6, Plt Count 152, MPV 11.6, Immature Gran % (Auto) 1.100 H, Neut % (Auto) 81.9 H, Lymph % (Auto) 11.9 L, Craig % (Auto) 4.8, Eos % (Auto) 0.0, Baso % (Auto) 0.3, Absolute Neuts (auto) 15.2 H, Absolute Lymphs (auto) 2.21, Nucleated RBC % 0 11/06/24 18:00: Urine Color Yellow, Urine Clarity Sl. Cloudy, Urine pH 5.0, Ur Specific [place] 1.025, Urine Protein 500 H, Urine Glucose (UA) 1000 H, Urine Ketones 50 H, Urine Occult Blood 150 H, Urine Nitrite Negative, Urine Bilirubin Negative, Urine Urobilinogen Normal, Ur Leukocyte Esterase 25 H, Urine RBC 10-25 SEEN, Urine WBC 25-50 SEEN, Ur Squamous Epith Cells 0-5 SEEN, Ur Transition Epith Cell 5-10 SEEN, Urine Bacteria 2+, Hyaline Casts 0-5 SEEN, Fine Granular Casts 0-5 SEEN, Urine Mucus 0 SEEN, Urine Opiates Screen POSITIVE H, Urine Methadone Screen NEGATIVE, Ur Barbiturates Screen NEGATIVE, Ur Phencyclidine Scrn NEGATIVE, Ur Amphetamines Screen POSITIVE H, MDMA (Ecstasy) Screen POSITIVE H, U Benzodiazepines Scrn POSITIVE H, Urine Cocaine Screen NEGATIVE, U Cannabinoids Screen NEGATIVE, Ur Drug Screen Comment 11/06/24 21:40: U Random Total Protein 239.9 H, Urine Creatinine 74.40, P rotein/Creatinin Ratio 3224 H 11/06/24 21:50: Sodium 128 L, Potassium 5.6 H, Chloride 99, Carbon Dioxide 21.0, Anion Gap 8, BUN 16, Creatinine 1.33 H, Est GFR (MDRD) Af Amer 60, Est GFR (MDRD) Non-Af 49 L, BUN/Creatinine Ratio 12.0, Glucose 289 H, Calcium 7.6 L, Total Bilirubin 0.20, AST 25, ALT 13, Alkaline Phosphatase 114, Total Protein 4.7 L, Albumin 1.5 L, Globulin 3.2, Albumin/Globulin Ratio 0.5 L 11/07/24 01:05: POC Glucose 272 H 11/07/24 01:39: WBC Cancelled, Corrected WBC Cancelled, RBC Cancelled, Hgb Cancelled, Hct Cancelled, MCV Cancelled, MCH Cancelled, MCHC Cancelled, RDW Std Deviation Cancelled, RDW Coeff of Betsey Cancelled, Plt Count Cancelled, MPV Cancelled, Diff Path Review Cancelled, Sodium Cancelled, Potassium Cancelled, Chloride Cancelled, Carbon Dioxide Cancelled, Anion Gap Cancelled, BUN Cancelled, Creatinine Cancelled, Estim Creat Clear Calc Cancelled, Est GFR (MDRD) Af Amer Cancelled, Est GFR (MDRD) Non-Af Cancelled, BUN/Creatinine Ratio Cancelled, Glucose Cancelled, Hemoglobin A1c Cancelled, Calcium Cancelled, Magnesium Cancelled, Total Bilirubin Cancelled, AST Cancelled, ALT Cancelled, Alkaline Phosphatase Cancelled, Total Protein Cancelled, Albumin Cancelled, Globulin Cancelled, Albumin/Globulin Ratio Cancelled 11/07/24 03:05: POC Glucose 306 H 11/07/24 03:15: WBC 12.0 H, RBC 3.51 L, Hgb 9.3 L, Hct 28.5 L, MCV 81.2 D, MCH 26.5 L, MCHC 32.6 D, RDW Std Deviation 41.7, RDW Coeff of Betsey 14.5, Plt Count 126 L, MPV 12.4 H, PT 12.8, INR 0.9, APTT 25.5, Sodium 130 L, Potassium 5.3 H, Chloride 101, Carbon Dioxide 21.0, Anion Gap 7, BUN 18, Creatinine 1.40 H, Est GFR (MDRD) Af Amer 56 L, Est GFR (MDRD) Non-Af 46 L, BUN/Creatinine Ratio 12.9, Glucose 315 H, Hemoglobin A1c 9.7 H, Calcium 7.7 L, Magnesium 6.2 H*, Total Bilirubin 0.20, AST 21, ALT 14, Alkaline Phosphatase 111, Total Protein 4.8 L, A lbumin 1.5 L, Globulin 3.3, Albumin/Globulin Ratio 0.5 L 11/07/24 08:02: POC Glucose 268 H 11/07/24 11:50: POC Glucose 209 H 11/07/24 12:35: WBC 9.8, RBC 3.81 L, Hgb 10.3 L, Hct 31.8 L, MCV 83.5, MCH 27.0, MCHC 32.4, RDW Std Deviation 43.8, RDW Coeff of Betsey 14.7 H, Plt Count 113 L, MPV 12.4 H, Immature Gran % (Auto) 1.000 H, Neut % (Auto) 66.8, Lymph % (Auto) 27.4, Craig % (Auto) 4.5, Eos % (Auto) 0.1, Baso % (Auto) 0.2, Absolute Neuts (auto) 6.6, Absolute Lymphs (auto) 2.70, Nucleated RBC % 0, Sodium 128 L, Potassium 4.3, Chloride 99, Carbon Dioxide 20.0 L, Anion Gap 10, BUN 16, Creatinine 1.31 H , Estim Creat Clear Calc 67.66, Est GFR (MDRD) Af Amer 61, Est GFR (MDRD) Non-Af 50 L, BUN/Creatinine Ratio 12.2, Glucose 203 H, Calcium 7.3 L, Total Bilirubin 0.10 L, AST 25, ALT 14, Alkaline Phosphatase 116, Total Protein 5.2 L, Albumin 1.6 L, Globulin 3.6, Albumin/Globulin Ratio 0.4 L, Acetone Level NEGATIVE 11/07/24 12:47: Magnesium 8.1 H* Micro: Microbiology 11/06/24 18:00 Urine, Clean Catch Chlamydia/Neisseria (PCR) - Final ABG Data ABG results: ABG 11/07/24 05:43 Specimen Type ALBERTO Sample Site Not entered O2 % 21.0 VBG pH 7.34 VBG pO2 49 H VBG HCO3 16 L VBG Total CO2 16 L VBG O2 Sat (Calc) 83 H VBG Base Excess -10 L POC Mix VBG pCO2 Pt Tmp 28.6 L O2 Delivery Device Not entered ROS Constitutional Constitutional: Reports systems reviewed and no addt'l complaints, except as documented Cardiovascular Cardiovascular: Denies chest pain, dizziness, dyspnea or irregular heart rhythm Respiratory/Chest Respiratory/Chest: Denies cough, pain on inspiration or shortness of breath at rest Gastrointestinal Gastrointestinal: Denies abdominal pain, nausea or vomiting Genitourinary Genitourinary: Denies burning urination Musculoskeletal Musculoskeletal: Denies muscle cramps, muscle spasms or muscle weakness Neurologic Neurologic: Denies confusion, dizziness, headache(s) or lack of coordination Psychiatric Psychiatric: Denies anxiety, behavioral changes or depression Physical Exam HEENT normocephalic Resp normal respiratory effort and normal air movement GI soft to palpation, non-tender and non-distended Rectal Exam: other Other Details: Incision is clean, dry, and intact no CVA tenderness Extremity normal to inspection General Extremity: edema bilateral (trace ) Assessment & Plan (1) HIV positive: COMMENT: prelim positive, patient states she has no known sick contacts, has not tested positive before. confirmation test ordered (2) Multiple sclerosis: (3) Anemia due to blood loss, acute: COMMENT: secondary to abruption (4) Diabetes: COMMENT: previously undiagnosed, HgA1c 10. give SSI at present (5) Preeclampsia, severe: COMMENT: magnesium sulfate, initially given labetalol, will switch to procardia due to hyperkalemia (6) delivery delivered: COMMENT: LTCS stat cs due to abruption boy 34 weeks no care (7) Positive urine drug screen: (8) bradycardia: (9) Limited care in third trimester: (10) Placental abruption in third trimester: PLAN: Plan labs drawn show that cr is improving despite the dark concentrated color of her urine urine output is reported to be normal mag level is 8, plan to cut dose in half and recheck in 4 hours move back to L&D HIV viral load ordered.
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
[2024-11-07] MEDS: Naproxen 500 MG Tablet PO ×2 (15:43→23:06)
[2024-11-07] MEDS: Ondansetron 4 MG/2 ML Vial IV (15:43)
[2024-11-07 17:22] LABS: Magnesium 4.3 mg/dL (1.6-2.6)
[2024-11-07 17:40] LABS: Bedside Glucose 297 mg/dL (74-106)
[2024-11-07] MEDS: Labetalol 200 MG Tablet PO (18:58)
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
[2024-11-07 22:43] LABS: Bedside Glucose 271 mg/dL (74-106)
[2024-11-08] VITALS: BP 104/70; PULSE 75; RESP 16; TEMP 36.5; O2SAT 99
[2024-11-08] MEDS: Acetaminophen 500 MG Tablet 1000 MG PO ×4 (00:28→18:16)
[2024-11-08] MEDS: oxyCODONE 5 MG Tablet PO ×3 (06:23→19:46)
[2024-11-08] MEDS: SimETHICONE 80 MG Chewable Tablet PO ×3 (06:23→19:45)
[2024-11-08 07:43] LABS: Hematocrit 31.4 % (37-47); Hemoglobin 10.4 g/dL (12.0-15.0); Mean Corp Hgb Conc 33.1 g/dL (32-36); Mean Corpuscular Hgb 26.9 pg (27.0-32.0); Mean Corpuscular Volume 81.3 fL (81-99); Mean Platelet Vol. 11.2 fl (6.2-12.0); Platelet Count 164 K/mm3 (150-450); RBC Distribution Width CV 14.6 % (11.6-14.6); RBC Distribution Width SD 42.5 fl (35.1-43.9); Red Blood Count 3.86 M/mm3 (4.2-5.4); White Blood Count 10.6 K/mm3 (4.4-11.0)
[2024-11-08] MEDS: Naproxen 500 MG Tablet PO ×3 (07:51→23:29)
[2024-11-08 08:01] LABS: ALB/GLOB Ratio 0.4 RATIO (0.9-2.4); AST(SGOT) 19 U/L (15-37); Alanine Aminotransfer ALT/SGPT 12 U/L (13-56); Albumin, Serum 1.6 g/dL (3.2-5.0); Alkaline Phosphatase 112 U/L (45-117); Anion Gap 8 (5-15); BUN 21 mg/dL (7-18); BUN/Creat Ratio 16.8 RATIO (10-20); Calcium,Total 7.4 mg/dL (8.5-10.1); Chloride 100 mmol/L (98-107); Creatinine, Serum 1.25 mg/dL (0.55-1.02); EST Glomerular Filtration Rate 53 mL/min (>60); Est Glom Filt Rate - Afr Amer 64 mL/min (>60); Estimated Creatinine Clearance 70.91 ml/min; Globulin 3.7 g/dL (2.2-4.2); Glucose 259 mg/dL (74-106); Potassium 4.3 mmol/L (3.5-5.1); Protein, Total 5.3 g/dL (6.4-8.2); Sodium Level 127 mmol/L (136-145)
--- NOTE | 2024-11-08 08:30 | CASEMGMT ---
Social Work Spoke with La, car supervisor at [facility] ([facility]). Referral made due to concern of positive maternal drug screen, premature delivery, subsequent transfer of baby to [facility], and history of children services involvement for allegations of substance use. Brief maternal and histories provided including SDOH concerns, limited care, general lack of preparedness for the infant including supplies, maternal mental health not currently in treatment, and limited support system. Per La, [facility] will be opening the case. Handoff to ASHLY Fernandez, for [facility], who will be covering for labor and delivery unit today. For continuity of care of family, handoff to ASHLY Jalloh for [facility]. Plan: Social work to follow and assist as indicated during hospital stay. -GEORGE Riojas
[2024-11-08 09:10] VITALS: BP 129/86; PULSE 64; RESP 16; TEMP 36; O2SAT 98
[2024-11-08] MEDS: Insulin Lispro 100 UNIT/ML INSULN.PEN SC ×3 (09:32→22:39)
[2024-11-08 09:42] LABS: Bedside Glucose 253 mg/dL (74-106)
[2024-11-08] MEDS: Labetalol 200 MG Tablet PO ×3 (10:28→21:56)
[2024-11-08] MEDS: NIFEdipine 30 MG Tablet PO ×2 (10:29→21:56)
[2024-11-08] MEDS: Senna/Docusate Sodium 1 Tablet PO (10:43)
--- NOTE | 2024-11-08 10:49 | PN.OBGYN_ITS ---
Subjective Subjective no CP SOB pain fairly controlled patient refusing fundal checks. noncompliant with some of ambulation. minimal vaginal bleeding. Objective Data Objective Data Vital Signs: Vital Signs Temp Pulse Resp BP Pulse Ox O2 Del Method 96.8 F L 64 16 129/86 H 98 Room Air 11/08/24 09:10 11/08/24 09:10 11/08/24 09:10 11/08/24 09:10 11/08/24 09:10 11/08/24 09:10 Oxygen Delivery Method Room Air Weight: 191 lb 2.252 oz Body Mass Index (BMI) 31.8 Intake & Output: Intake and Output for Last 24 Hours 11/06/24 11/07/24 11/08/24 23:59 23:59 23:59 Intake Total 3325 / 3375 3546.25 / 3546.25 Output Total 1974 3825 / 3825 800 / 800 Balance 1350 / 1400 -278.75 / -278.75 -800 / -800 Lab / Micro Data 11/09/24 07:28 11/09/24 07:28 Labs: Laboratory Results - last 24 hr 11/06/24 14:20: Miscellaneous Test COMMENT 11/07/24 11:50: POC Glucose 209 H 11/07/24 12:35: WBC 9.8, RBC 3.81 L, Hgb 10.3 L, Hct 31.8 L, MCV 83.5, MCH 27.0, MCHC 32.4, RDW Std Deviation 43.8, RDW Coeff of Betsey 14.7 H, Plt Count 113 L, MPV 12.4 H, Immature Gran % (Auto) 1.000 H, Neut % (Auto) 66.8, Lymph % (Auto) 27.4, [place] % (Auto) 4.5, Eos % (Auto) 0.1, Baso % (Auto) 0.2, Absolute Neuts (auto) 6.6, Absolute Lymphs (auto) 2.70, Nucleated RBC % 0, Sodium 128 L, Potassium 4.3, Chloride 99, Carbon Dioxide 20.0 L, Anion Gap 10, BUN 16, Creatinine 1.31 H , Estim Creat Clear Calc 67.66, Est GFR (MDRD) Af Amer 61, Est GFR (MDRD) Non-Af 50 L, BUN/Creatinine Ratio 12.2, Glucose 203 H, Calcium 7.3 L, Total Bilirubin 0.10 L, AST 25, ALT 14, Alkaline Phosphatase 116, Total Protein 5.2 L, Albumin 1.6 L, Globulin 3.6, Albumin/Globulin Ratio 0.4 L, Acetone Level NEGATIVE 11/07/24 12:47: Magnesium 8.1 H* 11/07/24 16:30: Magnesium 4.3 H 11/07/24 17:22: POC Glucose 297 H 11/07/24 22:23: POC Glucose 271 H 11/08/24 07:29: WBC 10.6, RBC 3.86 L, Hgb 10.4 L, Hct 31.4 L, MCV 81.3, MCH 26.9 L, MCHC 33.1, RDW Std Deviation 42.5, RDW Coeff of Betsey 14.6, Plt Count 164, MPV 11.2, Sodium 127 L, Potassium 4.3, Chloride 100, Carbon Dioxide 20.0 L, Anion Gap 8, BUN 21 H, Creatinine 1.25 H, Estim Creat Clear Calc 70.91, Est GFR (MDRD) Af Amer 64, Est GFR (MDRD) Non-Af 53 L, BUN/Creatinine Ratio 16.8, Glucose 259 H , Calcium 7.4 L, Total Bilirubin 0.30, AST 19, ALT 12 L, Alkaline Phosphatase 112, Total Protein 5.3 L, Albumin 1.6 L, Globulin 3.7, Albumin/Globulin Ratio 0.4 L 11/08/24 09:20: POC Glucose 253 H Micro: Microbiology 11/06/24 18:00 Urine, Clean Catch Chlamydia/Neisseria (PCR) - Final ABG Data ABG results: ABG 11/07/24 05:43 Specimen Type ALBERTO Sample Site Not entered O2 % 21.0 VBG pH 7.34 VBG pO2 49 H VBG HCO3 16 L VBG Total CO2 16 L VBG O2 Sat (Calc) 83 H VBG Base Excess -10 L POC Mix VBG pCO2 Pt Tmp 28.6 L O2 Delivery Device Not entered ROS Constitutional Constitutional: Reports systems reviewed and no addt'l complaints, except as documented Cardiovascular Cardiovascular: Reports systems reviewed and no addt'l complaints, except as documented Respiratory/Chest Respiratory/Chest: Reports systems reviewed and no addt'l complaints, except as documented Gastrointestinal Gastrointestinal: Reports systems reviewed and no addt'l complaints, except as documented Genitourinary Genitourinary: Denies burning urination Musculoskeletal Musculoskeletal: Denies muscle cramps, muscle spasms or muscle weakness Neurologic Neurologic: Denies confusion, dizziness, headache(s) or lack of coordination Psychiatric Psychiatric: Denies anxiety, behavioral changes or depression Physical Exam Const alert, oriented x3 and no apparent distress HEENT normocephalic Head and Scalp: atraumatic Resp normal respiratory effort GI soft to palpation and non-tender Inspection: incision intact, healing well and drainage (none) Rectal Exam: other Other Details: Incision is clean, dry, and intact no CVA tenderness Bimanual Exam - Vag & Uterus: uterus non-tender Uterus Palpation: uterus fundus firm (below Umbilicus) Extremity normal to inspection General Extremity: edema bilateral (trace ) Assessment & Plan (1) HIV positive: COMMENT: prelim positive, patient states she has no known sick contacts, has not tested positive before. confirmation test ordered (2) Multiple sclerosis: (3) Anemia due to blood loss, acute: COMMENT: secondary to abruption (4) Diabetes: COMMENT: previously undiagnosed, HgA1c 10. give SSI at present (5) Preeclampsia, severe: COMMENT: magnesium sulfate, initially given labetalol, will switch to procardia due to hyperkalemia (6) delivery delivered: COMMENT: LTCS stat cs due to abruption boy 34 weeks no care (7) Positive urine drug screen: (8) bradycardia: (9) Limited care in third trimester: (10) Placental abruption in third trimester: PLAN: Plan increase procardia to bid, start metformin and titrate PRN, increase SSI dosing. increase ambulation.
[2024-11-08] MEDS: metFORMIN (XR) 500 MG Tablet PO (11:54)
[2024-11-08 13:12] LABS: Bedside Glucose 343 mg/dL (74-106)
[2024-11-08] MEDS: Insulin Lispro 100 UNIT/ML INSULN.PEN 10 UNIT SC (13:25)
[2024-11-08 13:32] VITALS: BP 148/91; PULSE 63; RESP 16; TEMP 36.3
--- NOTE | 2024-11-08 14:28 | CASEMGMT ---
Social Work SW received email handoff from [facility] regarding patients status and need to follow up to inform patient that [facility] has opened a case. SW spoke with nurse prior to visit with patient, nurse informed SW that patient has been diagnosed with Diabetes and inquired if there was any diabetic training available for patient. SW met with patient, patients boyfriend also present but asleep for majority of conversation with MOB. MOB open to visit and talked with SW about loosing her home and how she has been managing. She also discussed having another child who is currently living with the yenifer father due to MOB not having her own home at this time. Patient was talkative but tired, keeping her eyes closed throughout much of the conversation. SW notified patient that a childrens service case had been opened. Patient was mildly upset, stating she did not understand why they would open a case, that the drugs that showed up on her tox screen other than marijuana were given at the hospital and that marijuana was legal and it should not matter if she used it. SW explained to patient that all cases with marijuana were reported, patient boyfriend at that time agreed with SW telling patient they have to do it. Patient also discussed her diabetic diagnosis, stating she cared for an aunt who was diabetic so she had some understanding of the disease and how to manage it. [facility] technical support consultant was contacted and asked about diabetic training, technical support consultant stated they prefer an outpatient appointment be set up as the training is extensive. Patients nurse was notified of same, nurse stated they would put in a consult. No further needs identified. Rebecca Fernandez, BUSINESS PROCESS SPECIALIST, RESIDENTIAL APPLIANCE REPAIR TECHNICIAN
[2024-11-08 16:48] LABS: Bedside Glucose 244 mg/dL (74-106)
[2024-11-08 20:24] VITALS: BP 121/86; PULSE 85; RESP 18; TEMP 36.6; O2SAT 100
[2024-11-08 21:57] LABS: Bedside Glucose 277 mg/dL (74-106)
--- NOTE | 2024-11-08 21:57 | NURSING ---
In room with patient from [id number]. Patient reporting intense gas pain in right upper chest. Patient intermittently burping but insists pain unresolved. Ambulated to the restroom with RN. Encouraging patient to ambulate in room and halls to assist with gas pain. Patient refusing at this time insists on sitting at bedside. Unable to assess incision or fundal exam as patient refusing to lay down for exam. Encouraged patient to take breaks from abdominal binder, consume warm fluids, and ambulate frequently. Prn gas x and oxir given per request for pain.
[2024-11-08 22:25] LABS: Bedside Glucose 232 mg/dL (74-106)
--- NOTE | 2024-11-09 00:30 | NURSING ---
Patient refusing fundal exam at this time due to pain. This RN educated on importance of fundal exams and patient still refused.
[2024-11-09] MEDS: Acetaminophen 500 MG Tablet 1000 MG PO ×3 (00:36→12:34)
[2024-11-09] MEDS: 0.9% Saline Lock 10 ML Syringe IV ×2 (00:38→00:39)
[2024-11-09 01:37] VITALS: BP 125/84; PULSE 81; RESP 16; TEMP 36.6; O2SAT 98
[2024-11-09] MEDS: oxyCODONE 5 MG Tablet PO ×2 (05:31→10:37)
[2024-11-09] MEDS: SimETHICONE 80 MG Chewable Tablet PO (05:31)
[2024-11-09 07:18] LABS: Bedside Glucose 96 mg/dL (74-106)
[2024-11-09] MEDS: Naproxen 500 MG Tablet PO ×2 (07:35→15:42)
[2024-11-09 07:56] LABS: Absolute Lymphocyte Count 0.95 X10^3/uL (0.83-4.51); Absolute Neutrophil Count 13.8 X10^3/uL (2.0-7.7); Basophil# 0.02 X10^3/uL; Basophil% 0.1 % (0-1); Hematocrit 31.5 % (37-47); Hemoglobin 10.5 g/dL (12.0-15.0); Lymphocyte # 0.95 X10^3/ul (0.83-4.51); Lymphocyte % 6.1 % (19-41); Mean Corp Hgb Conc 33.3 g/dL (32-36); Mean Corpuscular Hgb 27.3 pg (27.0-32.0); Mean Corpuscular Volume 81.8 fL (81-99); Mean Platelet Vol. 10.4 fl (6.2-12.0); Monocyte# 0.63 X10^3/uL; Monocyte% 4.1 % (0-10); NRBC Flagged by Analyzer 0 % (0-5); Neutrophil # 13.81 X10^3/uL (2.7-7.7); Neutrophil % 89.1 % (47-70); Platelet Count 196 K/mm3 (150-450); RBC Distribution Width CV 15.2 % (11.6-14.6); RBC Distribution Width SD 44.6 fl (35.1-43.9); Red Blood Count 3.85 M/mm3 (4.2-5.4); White Blood Count 15.5 K/mm3 (4.4-11.0)
[2024-11-09 08:02] LABS: ALB/GLOB Ratio 0.5 RATIO (0.9-2.4); AST(SGOT) 22 U/L (15-37); Alanine Aminotransfer ALT/SGPT 14 U/L (13-56); Albumin, Serum 1.7 g/dL (3.2-5.0); Alkaline Phosphatase 104 U/L (45-117); Anion Gap 7 (5-15); BUN 23 mg/dL (7-18); BUN/Creat Ratio 25.9 RATIO (10-20); Chloride 107 mmol/L (98-107); Creatinine, Serum 0.89 mg/dL (0.55-1.02); EST Glomerular Filtration Rate 78 mL/min (>60); Est Glom Filt Rate - Afr Amer 95 mL/min (>60); Estimated Creatinine Clearance 99.59 ml/min; Globulin 3.7 g/dL (2.2-4.2); Glucose 109 mg/dL (74-106); Potassium 4.1 mmol/L (3.5-5.1); Protein, Total 5.4 g/dL (6.4-8.2); Sodium Level 136 mmol/L (136-145)
[2024-11-09 08:03] VITALS: BP 122/74; PULSE 87; RESP 16; TEMP 37.2; O2SAT 98
[2024-11-09] MEDS: metFORMIN (XR) 500 MG Tablet 1000 MG PO (08:17)
[2024-11-09 08:30] LABS: Bedside Glucose 106 mg/dL (74-106)
--- NOTE | 2024-11-09 09:15 | PCM.DC ---
Discharge Instructions Diet Discharge Diet: No restrictions DC O2, CPAP, BIPAP needs Home O2 Discharge instructions: No Dressing / Incision Discharge Activity: May Not Drive (for 2 weeks or while taking narcotic pain medications.), May Shower and May Take a Tub Bath (in 7 days) May shower in (days): 0 May resume sexual activity in: 4-6 weeks Weight Bearing Status: Full weight bearing Lifting Restrictions: 20 pounds Dressing / Incision Call your doctor if your incision/area has: Continuous Slow Oozing, Sudden Increased Bleeding, Increased Pain/ Swelling, Increased Redness and Foul Smelling Discharge Call your doctor if you observe: Fever of 101 or Higher and Using more than 1 pad per hour (for 2 hours) Suture Line Care: Avoid Pulling/Pushing and Avoid Pinching/Bending Cleanse incision/area with: Soap & Water and Keep Dressing Clean & Dry Follow Up Care Please Follow Up With: Elaine Jones MD When: Call [phone] to make an appointment for an incision check in 1-2 weeks. Test Results: Test results from this visit will be discussed in further detail at your follow-up appointment, if applicable. Discharge Plan Admission Admit Date/Time: 11/06/24 13:04 Attending Provider: Elaine Jones Primary Care Provider: Kevin Sotelo Discharge Orders/Prescriptions Prescriptions: New nifedipine 30 mg Tablet Extended Release 24hr 30 mg PO BID 30 Days Qty: 60 1RF labetalol 200 mg Tablet 200 mg PO BID 30 Days Qty: 60 1RF metformin 500 mg Tablet Extended Release 24 Hr 1,000 mg PO DAILYCM 30 Days Qty: 60 1RF naproxen 500 mg Tablet 500 mg PO Q8H 14 Days Qty: 42 0RF oxycodone 5 mg Tablet 5 mg PO Q4H PRN PRN (Reason: Pain Score 4-10) 7 Days Qty: 28 0RF No Action rizatriptan [Maxalt] 10 mg tablet 10 mg PO ONCE Ubrelvy 100 mg tablet 100 mg PO ONCE Rx Instructions: as a single dose; may repeat once in >=2 hours after first dose if needed Nurtec ODT 75 mg tablet,disintegrating 75 mg PO ONCE PRN Rx Instructions: as a single dose; not to exceed 1 dose per 24 hrs OR 15 doses per 30 days Ajovy Autoinjector 225 mg/1.5 mL auto-injector 675 mg subcut [id number] Rx Instructions: administer as 3 consecutive 225 mg injections nabumetone 500 mg tablet 500 mg PO BID Qty: 30 12RF hydrocortisone 2.5 % ointment 1 applic topical BID Qty: 28.35 1RF alprazolam 0.5 MG tablet 1 mg PO TID Patient Comments: PATIENT HAS NOT HAD ANY FOR A COUPLE OF WEEKS. dextroamphetamine-amphetamine 20 mg capsule,extended release 24hr 20 mg PO BID alprazolam 2 MG tablet 2 mg PO QHS fluconazole [Diflucan] 150 mg tablet 150 mg PO ONCE Qty: 1 0RF Referrals / Follow Up: Kevin Sotelo MD [Primary Care Provider] - Disposition Disposition (needs filled in before D/C Order can be placed): Home, Self Care
--- NOTE | 2024-11-09 09:21 | PCM.PN.CNM ---
Subjective Subjective Patient doing well without complaints. Tolerating PO. Ambulating and voiding without difficulty. Feeding well. Denies chest pain, shortness of breath, calf pain/swelling, fevers, chills, lightheadedness. Objective Data Objective Data Vital Signs: Vital Signs Temp Pulse Resp BP Pulse Ox O2 Del Method 98.9 F 87 16 122/74 H 98 Room Air 11/09/24 08:03 11/09/24 08:03 11/09/24 08:03 11/09/24 08:03 11/09/24 08:03 11/09/24 08:03 Oxygen Delivery Method Room Air Weight: 191 lb 2.252 oz Body Mass Index (BMI) 31.8 Intake & Output: Intake and Output for Last 24 Hours 11/07/24 11/08/24 11/09/24 23:59 23:59 23:59 Intake Total 3546.25 / 3546.25 Output Total 3825 / 3825 1700 / 1700 Balance -278.75 / -278.75 -1700 / -1700 Lab / Micro Data 11/09/24 07:28 11/09/24 07:28 Labs: Laboratory Results - last 24 hr 11/08/24 09:20: POC Glucose 253 H 11/08/24 12:53: POC Glucose 343 H 11/08/24 16:26: POC Glucose 244 H 11/08/24 18:18: POC Glucose 277 H 11/08/24 22:04: POC Glucose 232 H 11/09/24 06:54: POC Glucose 96 11/09/24 07:28: WBC 15.5 H, RBC 3.85 L, Hgb 10.5 L, Hct 31.5 L, MCV 81.8, MCH 27.3, MCHC 33.3, RDW Std Deviation 44.6 H, RDW Coeff of Betsey 15.2 H, Plt Count 196, MPV 10.4, Immature Gran % (Auto) 0.600, Neut % (Auto) 89.1 H, Lymph % (Auto) 6.1 L, [place] % (Auto) 4.1, Eos % (Auto) 0.0, Baso % (Auto) 0.1, Absolute Neuts (auto) 13.8 H, Absolute Lymphs (auto) 0.95, Nucleated RBC % 0, Sodium 136, Potassium 4.1, Chloride 107, Carbon Dioxide 22.0, Anion Gap 7, BUN 23 H, Creatinine 0.89, Estim Creat Clear Calc 99.59, Est GFR (MDRD) Af Amer 95, Est GFR (MDRD) Non-Af 78, BUN/Creatinine Ratio 25.9 H, Glucose 109 H, Calcium 8.0 L, Total Bilirubin 0.30, AST 22, ALT 14, Alkaline Phosphatase 104, Total Protein 5.4 L, Albumin 1.7 L, Globulin 3.7, Albumin/Globulin Ratio 0.5 L 11/09/24 08:08: POC Glucose 106 Micro: Microbiology 11/06/24 18:00 Urine, Clean Catch Chlamydia/Neisseria (PCR) - Final Physical Exam Const alert, oriented x3 and no apparent distress HEENT normocephalic Head and Scalp: atraumatic Resp normal respiratory effort GI soft to palpation and non-tender Inspection: incision intact, healing well and drainage (none) Rectal Exam: other Other Details: Incision is clean, dry, and intact no CVA tenderness Bimanual Exam - Vag & Uterus: uterus non-tender Uterus Palpation: uterus fundus firm (below Umbilicus) Extremity normal to inspection General Extremity: edema bilateral (trace ) Assessment & Plan (1) HIV positive: COMMENT: prelim positive, patient states she has no known sick contacts, has not tested positive before. confirmation test ordered (2) Multiple sclerosis: (3) Anemia due to blood loss, acute: COMMENT: secondary to abruption. stable VS and bleeding (4) Diabetes: COMMENT: previously undiagnosed, HgA1c 10. give SSI at present (5) Preeclampsia, severe: COMMENT: magnesium sulfate, initially given labetalol, will switch to procardia due to hyperkalemia BP and labs stable (6) delivery delivered: COMMENT: LTCS stat cs due to abruption boy 34 weeks no care CN Communc: co-managed with dr. st. reviewed exam poc and agrees with d/c home. PLAN: Plan s/p LTCS PPD # 1. routine post care 2. breast feeding- support given 3. rh positive 4. rubella immune 5. d/c home today
--- NOTE | 2024-11-09 09:28 | PCM.DC.SUM ---
Providers Date of Admission: 11/06/24 Primary Care Physician: Dr. Kevin Sotelo MD Reason For Visit: C SECTION Diagnosis Discharge Diagnosis (1) HIV positive: Status: Acute Code(s): Z21 - Asymptomatic human immunodeficiency virus [HIV] infection status (2) Multiple sclerosis: Status: Acute Code(s): G35 - Multiple sclerosis (3) Anemia due to blood loss, acute: Status: Acute Code(s): D62 - Acute posthemorrhagic anemia (4) Diabetes: Status: Acute Code(s): E11.9 - Type 2 diabetes mellitus without complications (5) Preeclampsia, severe: Status: Acute Code(s): O14.10 - Severe pre-eclampsia, unspecified trimester (6) delivery delivered: Status: Acute Code(s): O82 - Encounter for delivery without indication Plan increase procardia to bid, start metformin and titrate PRN, increase SSI dosing. increase ambulation. Medications at Discharge Home Medications alprazolam 0.5 mg tablet 1 mg PO TID 04/16/17 alprazolam 2 mg tablet 2 mg PO QHS 12/20/18 rizatriptan 10 mg tablet (Maxalt) 10 mg PO ONCE 09/02/19 ubrogepant 100 mg tablet (Ubrelvy) 100 mg PO ONCE 09/03/20 rimegepant 75 mg disintegrating tablet (Nurtec ODT) 75 mg PO ONCE PRN 02/09/21 dextroamphetamine-amphetamine ER 20 mg 24hr capsule,extend release 20 mg PO BID 02/10/22 fremanezumab-vfrm 225 mg/1.5 mL subcutaneous auto-injector (Ajovy) 675 mg subcut [id number] 02/10/22 hydrocortisone 2.5 % topical ointment 1 applic topical BID #28.35 grams 02/10/22 nabumetone 500 mg tablet 500 mg PO BID #30 tabs 02/10/22 fluconazole 150 mg tablet (Diflucan) 150 mg PO ONCE #1 TAB 02/11/22 labetalol 200 mg tablet 200 mg PO BID 30 days #60 tabs 11/09/24 metformin 500 mg tablet,extended release 24 hr 1,000 mg (2 x 500 mg) PO DAILYCM 30 days #60 tabs 11/09/24 naproxen 500 mg tablet 500 mg PO Q8H 14 days #42 tabs 11/09/24 nifedipine 30 mg tablet,extended release 24 hr 30 mg PO BID 30 days #60 tabs 11/09/24 oxycodone 5 mg tablet 5 mg PO Q4H PRN PRN Pain Score 4-10 7 days #28 tabs 11/09/24 Hospital Course Operations section Summary of Care Provided Hospital Course: patient presented via squad with no care, hemorrhaging and fht were noted to be in the 70s so a stat csection was performed. after patient developed elevated bps and was treated for severe preeclampsia. she developed anemia secondary to the abruption and blood loss, and was noted to have previously undiagnosed chronic diabetes with a HgA1c of 9, renal insufficiency, initial HIV screen positive, and electrolyte abnormalities. she was admitted ot the ICU for a short time and monitored, received a unit of blood for anemia and blood pressures were controlled with procardia and labetalol. Blood glucose controlled with SSI and then metformin XR. patient was stable for DC to home on PPD3. Strong recommendations to fu with current pcp or establish care with a new one for BS and BP management, fu in our office the beginning of next week. Weight / BMI Weight Weight: 191 lb 2.252 oz Body Mass Index (BMI) 31.8 ABG / Lab / Microbiology Data 11/09/24 07:28 11/09/24 07:28 Laboratory: Laboratory Results - last 24 hr 11/08/24 09:20: POC Glucose 253 H 11/08/24 12:53: POC Glucose 343 H 11/08/24 16:26: POC Glucose 244 H 11/08/24 18:18: POC Glucose 277 H 11/08/24 22:04: POC Glucose 232 H 11/09/24 06:54: POC Glucose 96 11/09/24 07:28: WBC 15.5 H, RBC 3.85 L, Hgb 10.5 L, Hct 31.5 L, MCV 81.8, MCH 27.3, MCHC 33.3, RDW Std Deviation 44.6 H, RDW Coeff of Betsey 15.2 H, Plt Count 196, MPV 10.4, Immature Gran % (Auto) 0.600, Neut % (Auto) 89.1 H, Lymph % (Auto) 6.1 L, [place] % (Auto) 4.1, Eos % (Auto) 0.0, Baso % (Auto) 0.1, Absolute Neuts (auto) 13.8 H, Absolute Lymphs (auto) 0.95, Nucleated RBC % 0, Sodium 136, Potassium 4.1, Chloride 107, Carbon Dioxide 22.0, Anion Gap 7, BUN 23 H, Creatinine 0.89, Estim Creat Clear Calc 99.59, Est GFR (MDRD) Af Amer 95, Est GFR (MDRD) Non-Af 78, BUN/Creatinine Ratio 25.9 H, Glucose 109 H, Calcium 8.0 L, Total Bilirubin 0.30, AST 22, ALT 14, Alkaline Phosphatase 104, Total Protein 5.4 L, Albumin 1.7 L, Globulin 3.7, Albumin/Globulin Ratio 0.5 L 11/09/24 08:08: POC Glucose 106 Microbiology: Microbiology 11/06/24 18:00 Urine, Clean Catch Chlamydia/Neisseria (PCR) - Final D/C Instructions Discharge Diet: No restrictions Discharge Activity: May Not Drive (for 2 weeks or while taking narcotic pain medications.), May Shower and May Take a Tub Bath (in 7 days) May shower in (days): 0 May resume sexual activity in: 4-6 weeks Weight Bearing Status: Full weight bearing Call your doctor if your incision/area has: Continuous Slow Oozing, Sudden Increased Bleeding, Increased Pain/ Swelling, Increased Redness and Foul Smelling Discharge Call your doctor if you observe: Fever of 101 or Higher and Using more than 1 pad per hour (for 2 hours) Suture Line Care: Avoid Pulling/Pushing and Avoid Pinching/Bending Cleanse incision/area with: Soap & Water and Keep Dressing Clean & Dry DC O2, CPAP, BIPAP Needs Home O2 Discharge instructions: No Please Follow Up With: Elaine Jones MD When: Call [phone] to make an appointment for an incision check in 1-2 weeks. Meaningful Use Info Meaningful Use Meaningful Use Diagnoses (Choose all that apply): None applicable Ischemic Stroke Statin Dosing Therapy Reference: STATIN DOSE THERAPY REFERENCE: * Patients > 75 years receive moderate or high dose statin therapy. * Patients 75 years or YOUNGER should receive HIGH intensity statin dose unless contraindicated. You will be required to document reason for non-treatment if statin daily dose does not meet guidelines. HIGH DOSE STATIN THERAPY DAILY Atorvastatin > than or = to 40 mg Rosuvastatin > than or = to 20 mg Amlodipine + Atorvastatin > than or = to 2.5/40 mg Ezetimibe + Simvastatin 10/80 mg Simvastatin 80mg Discharge Plan Admission Admit Date/Time: 11/06/24 13:04 Attending Provider: Elaine Jones Primary Care Provider: Kevin Sotelo Discharge Orders/Prescriptions Prescriptions: New nifedipine 30 mg Tablet Extended Release 24hr 30 mg PO BID 30 Days Qty: 60 1RF labetalol 200 mg Tablet 200 mg PO BID 30 Days Qty: 60 1RF metformin 500 mg Tablet Extended Release 24 Hr 1,000 mg PO DAILYCM 30 Days Qty: 60 1RF naproxen 500 mg Tablet 500 mg PO Q8H 14 Days Qty: 42 0RF oxycodone 5 mg Tablet 5 mg PO Q4H PRN PRN (Reason: Pain Score 4-10) 7 Days Qty: 28 0RF No Action rizatriptan [Maxalt] 10 mg tablet 10 mg PO ONCE Ubrelvy 100 mg tablet 100 mg PO ONCE Rx Instructions: as a single dose; may repeat once in >=2 hours after first dose if needed Nurtec ODT 75 mg tablet,disintegrating 75 mg PO ONCE PRN Rx Instructions: as a single dose; not to exceed 1 dose per 24 hrs OR 15 doses per 30 days Ajovy Autoinjector 225 mg/1.5 mL auto-injector 675 mg subcut [id number] Rx Instructions: administer as 3 consecutive 225 mg injections nabumetone 500 mg tablet 500 mg PO BID Qty: 30 12RF hydrocortisone 2.5 % ointment 1 applic topical BID Qty: 28.35 1RF alprazolam 0.5 MG tablet 1 mg PO TID Patient Comments: PATIENT HAS NOT HAD ANY FOR A COUPLE OF WEEKS. dextroamphetamine-amphetamine 20 mg capsule,extended release 24hr 20 mg PO BID alprazolam 2 MG tablet 2 mg PO QHS fluconazole [Diflucan] 150 mg tablet 150 mg PO ONCE Qty: 1 0RF Referrals / Follow Up: Kevin Sotelo MD [Primary Care Provider] - Disposition Disposition (needs filled in before D/C Order can be placed): Home, Self Care
[2024-11-09] MEDS: Senna/Docusate Sodium 1 Tablet PO (10:37)
[2024-11-09] MEDS: Labetalol 200 MG Tablet PO (10:37)
[2024-11-09] MEDS: NIFEdipine 30 MG Tablet PO (10:38)
--- NOTE | 2024-11-09 12:05 | CASEMGMT ---
Social Work: structural steel worker was requested to see mother of baby (MOB) again prior to discharge to ensure there were no additional needs. MOB consented to social work visit. structural steel worker met with MOB and spoke with her at length about current needs that had already been discussed with previous social workers. MOB was very out of it, spoke softly and kept falling asleep. MOB reported she had just been given medication for pain. MOB stated she is worried about not being able to provide care for due to unknown needs and possible special needs of . MOB reported she has MS and gets bad flare ups and is concerned that she will not be able to take care of and give what he needs. MOB inquired about adoption. MOB stated she does not want to go through [facility] as she does not trust them. structural steel worker did remind MOB that they have been contacted or will be contacted. MOB continued to deny any and all drug use with the exception of marijuana which she stated she last used in September of 2024 due to being in so much pain. structural steel worker will get MOB information on adoption. La Pineda, HEAD CONTROL CLERK, INJECTION MAINTENANCE TECHNICIAN
--- NOTE | 2024-11-09 14:35 | CASEMGMT ---
Social Work: muffle worker went to the room of the MOB and MOB was in the shower. MOB's significant other, Samuel, was present. muffle worker left hand out information on low cost medication per request of MOB's nurse and MOB expressed concerns about not being able to afford any medication. Automobile Taillight Assembler also left information on adoption resources underneath the medication resources and secured material in the blue folder for MOB's privacy. La Pineda, NEEDLE LOOM OPERATOR, LEGISLATIVE ADVOCATE
[2024-11-09 15:05] VITALS: BP 119/76; PULSE 90; RESP 16; TEMP 36.1; O2SAT 98
--- NOTE | 2024-11-09 17:14 | NURSING ---
This RN typing note after discharge. This RN has cared for pt entire day. VSS and assessment was negative. Pt will scream and moan in pain when RN is in room, RN will then leave room and pt will be sleeping. Pt able to get up and go to bathroom and get back into bed by self, but if RN is in room demands that RN help while tearful. RN spent most of the afternoon trying to get patients medications figured out for her as she stated that she had no money and would not be able to get the prescriptions if they cost her anything. Boyfriend, Samuel, in to help patient in the afternoon and take home. Pt remains moaning constantly while RN is in room, Samuel does not seem bothered by this. Spoke with Bernadette in pharmacy several times about medications, she was able to get the medications for free, down to deliver them. Pt was off unit by 1700.
--- NOTE | 2024-11-09 21:05 | CASEMGMT ---
Social Work: lube worker made phone contact with [facility] and spoke with Ainsley. lube worker shared additional concerns of MOB reporting that she only has a bassinet for , a few bottles and no car seat, clothing, diapers or any other necessities and does not have any money to purchase needed supplies. lube worker also shared mother of baby (MOB) concerns that she will not be able to take care of and/or any special needs. La Pineda, FLOAT TENDER, ENGRAVER WOOD
[2024-11-11 19:07] LABS: HIV-1 RNA by PCR, Quant. < 20 copies/mL (.)
--- NOTE | 2024-11-30 21:29 | CASEMGMT ---
Social Work: Police Artist received letter from [facility] that notified social media strategist that the referral was accepted for assessment/investigation. 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
== END 2024-11-09 17:00 | disposition home or self-care (01) | DRG 540 ==
LOC: WP 13:13 → ICU 11-07 03:17 → WP 11-08 09:17 → ICU 11-14 16:50 → WP 11-14 16:50
PROVIDERS: Hospitalist; Obstetrics & Gynecology; Admitting Provider Obstetrics & Gynecology; PCP Family Medicine; Referring Provider Obstetrics & Gynecology; Visit Provider Obstetrics & Gynecology
DX: O45.93 Premature separation of placenta, unspecified, third trimester (principal); O14.15 Severe pre-eclampsia, complicating the puerperium; O24.12 Pre-existing type 2 diabetes mellitus, in childbirth; O26.833 Pregnancy related renal disease, third trimester; J45.909 Unspecified asthma, uncomplicated; O99.354 Diseases of the nervous system complicating childbirth; G35 Multiple sclerosis; D62 Acute posthemorrhagic anemia; E87.5 Hyperkalemia; O90.81 Anemia of the puerperium; N28.9 Disorder of kidney and ureter, unspecified; O99.03 Anemia complicating the puerperium; O99.892 Other specified diseases and conditions complicating childbirth; R75 Inconclusive laboratory evidence of human immunodeficiency virus [HIV]; O99.52 Diseases of the respiratory system complicating childbirth; R82.5 Elevated urine levels of drugs, medicaments and biological substances; O99.893 Other specified diseases and conditions complicating puerperium; Z37.0 Single live birth; O76 Abnormality in fetal heart rate and rhythm complicating labor and delivery; O99.284 Endocrine, nutritional and metabolic diseases complicating childbirth; Z3A.34 34 weeks gestation of pregnancy; Z86.73 Personal history of transient ischemic attack (TIA), and cerebral infarction without residual deficits; Z79.899 Other long term (current) drug therapy
CPT/HCPCS: 36415; 80053; 80307; 81001; 82009; 82570; 82803; 82962; 83036; 83735; 84156; 85025; 85027; 85384; 85610; 85730; 86703; 86762; 86780; 86803; 86850; 86900; 86901; 87340; 87491; 87536; 87591; 93005; 94762; 99221; P9016; A4216; G0378; J2405

== ENCOUNTER 2024-11-14 10:52 | Emergency (ER) | payer MEDICAID, SELFPAY ==
[2024-11-14] VITALS (10 sets, daily range): BP systolic 141–160; BP diastolic 75–105; PULSE 74–111; RESP 16–18; TEMP 36.6–36.7; O2SAT 96–100; BMI 27.9
--- NOTE | 2024-11-14 11:08 | CT_ITS ---
STUDY: CT ABDOMEN AND PELVIS WITH CONTRAST REASON FOR EXAM: Female, 29 years old. Lower abd pain s/p RADIATION DOSAGE (If Supplied By Facility): CTDIvol = ( 11.02 ) mGy, DLP = ( 1051.78 ) mGycm TECHNIQUE: Transaxial images were obtained from the dome of the diaphragm to the symphysis pubis without oral contrast. IV 75mL Isovue-300 was administered. Sagittal and coronal images were reconstructed. Individualized dose optimization techniques were used for this CT. COMPARISON: Comparison is made with prior study dated April 24, 2016. FINDINGS: The visualized lung bases are unremarkable. The visualized portions of the heart are within normal limits. Minimal amount of perihepatic fluid is seen. Questionable abscess in the right upper quadrant inferior to the right lobe of the liver anterior to the transverse colon. A repeat study with oral contrast recommended. Normal gallbladder and extrahepatic biliary system. Normal spleen. Normal pancreas. Normal bilateral adrenal glands. Normal right kidney. Normal left kidney. Normal visualized stomach. Normal small intestine. Large amount of fecal material is seen in the colon. The patient is status post prior appendectomy. Normal abdominal aorta. Normal inferior vena cava. Normal retroperitoneum. Small amount of fluid is seen in the Colic gutters bilaterally. Normal urinary bladder. Diffuse enlargement of the uterus (recent . Small amount of free fluid is seen in the pelvis. Postoperative changes seen at the operative site. Normal osseous structures. CT/Abdomen/Pelvis W IV Cont ONLY IMPRESSION: Questionable abscess in the right upper quadrant as described. A repeat examination following oral contrast is recommended. Electronically Signed: Yogesh Summers MD at 12:16 EST ,
--- NOTE | 2024-11-14 11:10 | EDS_ITS ---
HPI HPI - GI History of Present Illness Chief Complaint: Abd Pain Informant: patient Abdominal Pain/Flank Pain Onset: Days Context: Gradual Onset Timing: Continuous Location: Diffuse, RLQ and LLQ Current Severity: Moderate Maximum Severity: Severe Worsened by: Movement Relieved by: Nothing Nausea/Vomiting/Emesis GI Symptom: Positive for Nausea; Negative for Vomiting Onset: Today Severity: Mild Associated Symptoms Associated Symptoms: Negative for Dysuria, Frequency, Hematuria or Urgency Narrative Narrative: 29-year-old female recent placental abruption at 34 weeks with an emergency C- section. She needed transfused a unit. Child is currently in the NICU because it was 6 weeks born premature. Patient also has a history of MS and diabetes. She had limited care due to she states there was an issue with her insurance. was done here emergently by Dr. Elaine Jones. Patient states she has had lower abdominal pain last couple days. Associated nausea. Denies vomiting. No dysuria. No fever. Prior similar symptoms: No Recent Illness/Hospitalization: Yes [facility] Medical History ADD (attention deficit disorder) Multiple sclerosis Asthma Stroke Migraines Home Medications ?Medication ?Instructions ?Recorded ?Last Taken ?Type alprazolam 0.5 mg tablet 1 mg PO TID 04/16/17 Unknown History alprazolam 2 mg tablet 2 mg PO QHS 12/20/18 Unknown History dextroamphetamine-amphetamine ER 20 mg PO BID 02/10/22 Unknown History 20 mg 24hr capsule,extend release fremanezumab-vfrm 225 mg/1.5 mL 675 mg subcut [id number] 02/10/22 Unknown History subcutaneous auto-injector (Ajovy) hydrocortisone 2.5 % topical 1 applic topical BID #28.35 grams 02/10/22 Unknown Rx ointment nabumetone 500 mg tablet 500 mg PO BID #30 tabs 02/10/22 Unknown Rx labetalol 200 mg tablet 200 mg PO BID #60 tabs 11/09/24 Unknown Rx labetalol 200 mg tablet 200 mg PO BID 30 days #60 tabs 11/09/24 Unknown Rx metformin 500 mg tablet,extended 1,000 mg (2 x 500 mg) PO DAILY #60 11/09/24 Unknown Rx release 24 hr tabs metformin 500 mg tablet,extended 1,000 mg (2 x 500 mg) PO DAILYCM 11/09/24 Unknown Rx release 24 hr 30 days #60 tabs naproxen 500 mg tablet 500 mg PO Q8H 14 days #42 tabs 11/09/24 Unknown Rx nifedipine 30 mg tablet,extended 30 mg PO BID 30 days #60 tabs 11/09/24 Unknown Rx release 24 hr nifedipine 30 mg tablet,extended 30 mg PO BID #60 tabs 11/09/24 Unknown Rx release 24 hr (Procardia XL) oxycodone 5 mg tablet 5 mg PO Q4H PRN PRN Pain Score 11/09/24 Unknown Rx 4-10 7 days #28 tabs Allergy/AdvReac Type Severity Reaction Status Date / Time onabotulinumtoxinA (From Allergy Intermediate Itching Verified 11/14/24 10:54 Botox) adhesive tape (tape) Allergy Rash Verified 11/14/24 10:54 Latex, Natural Rubber Allergy Other Verified 11/14/24 10:54 verapamil Allergy Anaphylaxis Verified 11/14/24 10:54 Family History Father Heart disease Surgical History H/O knee surgery H/O dilation and curettage History of appendectomy History of lumpectomy History of tonsillectomy and adenoidectomy Social History number of children: 1 current occupational status: employed 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 Nausea. Constitutional Constitutional ED: Denies chills or fever(s) ENT ENT ED: Denies ear pain Cardiovascular Cardiovascular: Denies chest pain Respiratory/Chest Respiratory/Chest: Denies cough or dyspnea Gastrointestinal Gastrointestinal: Reports abdominal pain and nausea; Denies constipation, brandin rrhea, melena or vomiting Genitourinary Genitourinary ED: Denies dysuria or hematuria Musculoskeletal Musculoskeletal: Denies arthralgias Integumentary Denies abscess Neurologic Neurologic: Denies headache(s) Psychiatric Psychiatric: Denies anxiety Endocrine Endocrinology: Denies polydipsia Hematologic/Lymphatic Hematologic/Lymphatic: Denies easy bleeding Allergic/Immunologic Allergic/Immunologic ED: Denies mouth swelling EXAM Physical Exam Narrative Exam Narrative: 29-year-old female vital signs stable blood pressure 145/98. Heart rate 111. Pulse ox 100% on room air. Afebrile. She does not look septic or toxic. H EENT exam mild dry mucous membranes. Pupils round react light. Neck nontender. Lungs clear to auscultation bilaterally. Heart tachycardic 110 no murmur. Chest wall ribs nontender. Abdomen is distended. Diffusely tender more so on the lower quadrants. Well-healing incision with a dressing over it. No significant cellulitis. No significant redness or drainage. Moving all 4 extremities. Trace edema both lower extremities. Calves are nontender. Neurologically she is awake and alert. No focal motor deficits. Const Vital Signs: 11/14/24 10:54 11/14/24 12:12 11/14/24 14:00 Temperature 97.9 F Temperature Source Oral Pulse Rate 111 H 97 90 Respiratory Rate 18 16 18 Blood Pressure 145/98 H 154/89 H 141/87 H Blood Pressure Mean 113 110 105 Pulse Ox 100 99 99 Oxygen Delivery Method Room Air Room Air 11/14/24 15:00 11/14/24 16:11 Temperature Temperature Source Pulse Rate 79 100 Respiratory Rate 16 16 Blood Pressure 156/101 H 160/79 H Blood Pressure Mean 119 106 Pulse Ox 99 97 Oxygen Delivery Method Positive well nourished and well developed; Negative for cachectic, contractures or unkempt Constitutional Narrative: Complaining of pain of her abdomen. General Appearance ED: well developed; Negative for unkempt, cachectic, contractures, NAD or pallor Nutritional Appearance: Negative for cachectic HEENT Reports dry mucous membranes; Denies moist mucous membranes normocephalic and atraumatic; Negative for trauma or tenderness Mouth ED: Yes dry mucous membranes Mouth: dry mucous membranes Eyes PERRL and EOMs intact bilaterally General Eye ED: Negative for pale conjunctiva or scleral icterus Neck no lymphadenopathy, supple and no JVD General: Negative for tenderness Resp normal respiratory effort and clear to auscultation bilaterally Auscultation: Negative for rales, rhonchi, wheezes or diminished lung sounds Cardio regular rhythm, S1 normal heart sound, S2 normal heart sound and no murmurs; Negative for regular rate Rate: tachycardic Rhythm: Negative for abnormal rhythm GI no masses; Negative for non-tender or non-distended Inspection: abdominal distention Palpation: soft and tender; Negative for guarding, rigid, hernia or mass Back/Spine no CVA tenderness General Back: Negative for CVA tenderness Cervical Spine: Negative for cervical spine tenderness Thoracic Spine / Upper Back: Negative for thoracic spinal tenderness Lumbar Spine / Lower Back: Negative for lumbar spinal tenderness Coccyx: Negative for other Extremity full ROM General Extremety ED: Negative for edema, tenderness or other findings General Extremity: Negative for edema or other findings Neuro CN's II-XII intact bilaterally and moves all extremities Sensorium / Orientation: alert, oriented to person, oriented to place and oriented to time; Negative for orientation impaired Motor Exam: strength 5/5 throughout Psych mental status grossly normal and thought process normal Appearance: Negative for unkempt Attitude: No agitated Mood & Affect: anxious; Negative for depressed Skin no wounds Skin Narrative: Well-healing incision that is horizontal and lower abdomen. General Skin Exam: Negative for jaundice or pallor Lesions: no lesions Rashes: no rashes MDM MDM MDM Narrative Medical decision making narrative: 29-year-old female complaining abdominal pain after recent on 11/06/2024 that was done emergently due to placental abruption. She has had pain the last several days. Associated nausea but no vomiting. Denies dysuria or fever. CAT scan labs are being obtained. Patient be treated with a liter normal saline because she looks dehydrated. Morphine for pain and Zofran for nausea. Repeat exam 3:10 PM patient still having abdominal pain. She had her second CAT scan done with oral contrast to try to delineate if she truly has a perihepatic abscess. She will be given additional dose of morphine. Awaiting the CT results. CAT scan with oral contrast shows a right Nba hepatic abscess. Radiology spoke to their interventional MPU reviewed the films and feels that she can place a drain in this. Patient was started on IV Zosyn. I spoke to the patient's WINDOWS MIGRATION TECHNICIAN Dr. Elaine Jones. I have the hospitalist on page. Repeat exam at 4:50 PM. Patient is resting comfortably. Exam does not change. Currently she is tolerating the pain well after second dose of IV pain medication. I have discussed with the patient her test results. She knows we are attempting transfer if there is a beds available. I have already tried [facility] And they have no beds available. If we are unable to get an accepting facility she will be admitted here. Patient be turned over to the afternoon physician to continue the possible transfer process. History & Record Review Discussion w/independent historian: Patient Additional record(s) reviewed:: Prior inpatient record, Prior outpatient record and Prior ED visit Lab Data Attestation: I reviewed the patient's lab results. Lab results narrative: CBC shows elevated white count of 16.7. H&H 10.5 and 31.8. She has had elevated white counts recently. This is slightly higher. She has an anemia from her recent and . Neutrophils 84%. 2% bands. Electrolytes show sodium 131. Gap 10. BUN is 6 creatinine 0.6. Glucose 376. She is a known diabetic. Liver enzymes shows an alkaline phosphatase of 164. Lipase normal at 22. Urinalysis shows glucose but no white or red cells. No nitrates. No bacteria. Labs: Laboratory Results - last 24 hr 11/14/24 11/14/24 11/14/24 11:33 12:10 15:47 WBC 16.7 H RBC 3.98 L Hgb 10.5 L Hct 31.8 L MCV 79.9 L MCH 26.4 L MCHC 33.0 RDW Std Deviation 45.4 H RDW Coeff of Betsey 15.8 H Plt Count 347 MPV 8.8 Neut % (Auto) Not Reportable Absolute Neuts (auto) 14.4 H Absolute Lymphs (auto) 1.50 Total Counted 100 Neutrophils % (Manual) 84 H Band Neutrophils % 2 Lymphocytes % (Manual) 9 L Monocytes % (Manual) 1 Basophils % (Manual) 1 Metamyelocytes % 3 H Diff Path Review May foll Platelet Estimate A Polychromasia 1+ PT 13.3 INR 1.0 APTT 28.3 Sodium 131 L Potassium 4.0 Chloride 99 Carbon Dioxide 22.0 Anion Gap 10 BUN 6 L Creatinine 0.63 Estim Creat Clear Calc 132.12 Est GFR (MDRD) Af Amer 142 Est GFR (MDRD) Non-Af 117 BUN/Creatinine Ratio 9.6 L Glucose 376 H Calcium 9.0 Total Bilirubin 0.30 AST 16 ALT 15 Alkaline Phosphatase 164 H Total Protein 6.3 L Albumin 1.5 L Globulin 4.8 H Albumin/Globulin Ratio 0.3 L Lipase 22 Urine Color Yellow Urine Clarity Clear Urine pH 8.0 Ur Specific [place] 1.010 Urine Protein 100 H Urine Glucose (UA) 1000 H Urine Ketones Negative Urine Occult Blood 10 H Urine Nitrite Negative Urine Bilirubin Negative Urine Urobilinogen Normal Ur Leukocyte Esterase Negative Urine RBC 0-5 SEEN Urine WBC 0-5 SEEN Ur Squamous Epith Cells 0 SEEN Urine Bacteria 0 SEEN Urine Mucus 0 SEEN Blood Type A POSITIVE Antibody Screen NEGATIVE Radiography Diagnostic Testing: Clinical Impression(s) from Imaging Studies Abdomen/Pelvis CT 11/14/24 11:08 IMPRESSION: Questionable abscess in the right upper quadrant as described. A repeat examination following oral contrast is recommended. Electronically Signed: Yogesh Summers MD at 12:16 EST , Abdomen CT 11/14/24 12:45 IMPRESSION: Findings in keeping with a cyst 4.9 cm x 6.9 cm x 5.6 cm abscess in the right upper quadrant lateral to the right hemicolon and adjacent to the inferior aspect of the right lobe of liver as described. Small amount of free fluid in the pelvis as well as in the paracolic gutters bilaterally. Status post recent with persistent enlargement of the uterus and postoperative changes seen in the subcutaneous fat at the operative site. Electronically Signed: Yogesh Summers MD at 15:15 EST , Discharge Plan Dx/Rx/DC Orders Clinical Impression: Abdominal pain, History of diabetes mellitus, Hx of section, History of pre-eclampsia, History of placenta abruption, Leukocytosis Disposition [facility]
[2024-11-14 11:40] LABS: Hematocrit 31.8 % (37-47); Hemoglobin 10.5 g/dL (12.0-15.0); Mean Corpuscular Hgb 26.4 pg (27.0-32.0); Mean Corpuscular Volume 79.9 fL (81-99); Mean Platelet Vol. 8.8 fl (6.2-12.0); POSITIVE COUNT YES; POSITIVE MORPHOLOGY YES; Platelet Count 347 K/mm3 (150-450); RBC Distribution Width CV 15.8 % (11.6-14.6); RBC Distribution Width SD 45.4 fl (35.1-43.9); Red Blood Count 3.98 M/mm3 (4.2-5.4); White Blood Count 16.7 K/mm3 (4.4-11.0)
[2024-11-14 11:45] LABS: Differential Indicated MANUAL DIFF
[2024-11-14 11:59] LABS: ALB/GLOB Ratio 0.3 RATIO (0.9-2.4); AST(SGOT) 16 U/L (15-37); Alanine Aminotransfer ALT/SGPT 15 U/L (13-56); Albumin, Serum 1.5 g/dL (3.2-5.0); Alkaline Phosphatase 164 U/L (45-117); Anion Gap 10 (5-15); BUN 6 mg/dL (7-18); BUN/Creat Ratio 9.6 RATIO (10-20); Chloride 99 mmol/L (98-107); Creatinine, Serum 0.63 mg/dL (0.55-1.02); EST Glomerular Filtration Rate 117 mL/min (>60); Est Glom Filt Rate - Afr Amer 142 mL/min (>60); Estimated Creatinine Clearance 132.12 ml/min; Globulin 4.8 g/dL (2.2-4.2); Glucose 376 mg/dL (74-106); Lipase 22 U/L (13-75); Protein, Total 6.3 g/dL (6.4-8.2); Sodium Level 131 mmol/L (136-145)
[2024-11-14 12:20] LABS: Bacteria 0 SEEN /hpf (None Seen); Mucous, Urine 0 SEEN /hpf (<or=2+); Squamous Epithelial Cells - UA 0 SEEN /hpf (5-10)
[2024-11-14 12:26] LABS: Basophil 1 % (0-1); Lymphocyte 9 % (19-41); Metamyelocyte 3 % (0-1); Monocyte 1 % (0-10); Neutrophil-Band 2 % (0-5); Neutrophil-Segmented 84 % (47-70); Total Cells Counted 100 (MANUAL DIFF)
--- NOTE | 2024-11-14 12:26 | ED.RN ---
PT REQUESTING NEW IV. STATES IT ERVIN FLUSHES AND BLOOD RETURN GOOD
[2024-11-14 12:27] LABS: Platelet Estimate A (ADEQ); Polychromasia 1+
[2024-11-14] MEDS: Ondansetron 4 MG/2 ML Vial IV (12:27)
[2024-11-14] MEDS: 0.9% Normal Saline (1000mL) 1,000 ML 999 ML IV (12:27)
[2024-11-14] MEDS: morphine 8 MG/ML Syringe 6 MG IV ×2 (12:27→15:24)
[2024-11-14 12:28] LABS: Absolute Neutrophil Count 14.4 X10^3/uL (2.0-7.7)
[2024-11-14 12:38] LABS: Color, Urine Yellow (Yellow); Glucose, Dipstick 1000 mg/dl (Normal); Ketone-Dipstick Negative (Negative); Leukocyte Esterase-Dipstick Negative /ul (Negative); Nitrite-Dipstick Negative (Negative); Occult Blood-Urine 10 /ul (Negative); Protein-Dipstick 100 mg/dl (Negative); Urine Bilirubin Dipstick Negative (Negative); Urine Clarity Clear (Clear); Urine Urobilinogen Normal (Normal)
--- NOTE | 2024-11-14 12:45 | CT_ITS ---
STUDY: CT ABDOMEN AND PELVIS WITHOUT CONTRAST REASON FOR EXAM: Female, 29 years old. Abd pain.Recent CT w/ IVC ?? perihepatic abscess, 11/06 RADIATION DOSAGE (If Supplied By Facility): CTDIvol = ( 11.99 ) mGy, DLP = ( 578.02 ) mGycm TECHNIQUE: Transaxial images were obtained from the dome of the diaphragm to the symphysis pubis without oral contrast, and without intravenous contrast. Sagittal and coronal images were reconstructed. Individualized dose optimization techniques were used for this CT. COMPARISON: Comparison is made with prior CT examination done earlier today. FINDINGS: Minimal linear atelectasis at the right lung base. The visualized portions of the heart are within normal limits. I suspect a 4.9 cm x 6.9 cm x 5.6 cm abscess in the right upper quadrant lateral to the right hemicolon and adjacent to the inferior aspect of the right lobe of the liver. Small amount of perihepatic fluid is seen as well as fluid in the pelvis and the minimal fluid in the paracolic gutters. Stable appearance of the uterus in keeping with recent . Increased markings in the subcutaneous fat in the lower anterior abdominal pelvic wall in keeping with prior . CT/Abdomen/Pel W ORAL Cont Only IMPRESSION: Findings in keeping with a cyst 4.9 cm x 6.9 cm x 5.6 cm abscess in the right upper quadrant lateral to the right hemicolon and adjacent to the inferior aspect of the right lobe of liver as described. Small amount of free fluid in the pelvis as well as in the paracolic gutters bilaterally. Status post recent with persistent enlargement of the uterus and postoperative changes seen in the subcutaneous fat at the operative site. Electronically Signed: Yogesh Summers MD at 15:15 EST ,
[2024-11-14 12:46] LABS: Red Blood Cells-Urine 0-5 SEEN /hpf (0-5); White Blood Cells 0-5 SEEN /hpf (0-5)
[2024-11-14] MEDS: Piperacil/Tazobactam 4.5 GM in 0.9% Normal Saline (100mL MB+) 100 ML IV (15:56)
--- NOTE | 2024-11-14 16:11 | NURSING ---
Radiology is aware of pt's possible need for drain placement. Order needed if drain is required. Radiology has availability on 11/15/24 at 1000. Pt would need to be in radiology at 0915. NPO after midnight. budget technician will be available to contact at 0730 at [phone].
[2024-11-14 16:13] LABS: Partial Thromboplast Time 28.3 Seconds (24.1-36.2); Prothrombin Time (Protime)PT. 13.3 SECONDS (11.7-14.9)
--- NOTE | 2024-11-14 16:49 | ED.RN ---
TRYING TO GET A BED AT [facility]
--- NOTE | 2024-11-14 18:12 | CM.ED ---
Social Work SW met with patient as follow up from previous visit in . Patient stated that she had been unable to visit baby in [place] due to amount of pain she has been in since delivery. Patient also stated that Children services had come to patients house with the police, patient tearful relaying story. Patient continues to deny drug use. Patient also stated that she has some questions regarding the care of her baby and did not know who to contact. Patient was given number to her Children Service business case analyst Saumya, and to Hospital SW in [place], Debbie Del Rosario, . Patient also discussed concern over medication coverage as she was uncertain when her Medicaid may be approved. Donna from [facility] [employer] contacted and let SW know that patients case was still pending with no new updates. Patient notified of same and again given information for [facility] Clark to establish care and help with prescriptions. No further needs identified at this time. Rebecca Fernandez, BIOMETRICS ANALYST, MICROBIOLOGY LAB TECHNICIAN
--- NOTE | 2024-11-14 18:25 | ED.RN ---
CALLED [facility] @ [address] [employer] :-)
[2024-11-14] MEDS: Ketorolac 15 MG/ML Vial IV (19:12)
[2024-11-14] MEDS: HYDROmorphone 0.5 MG/0.5 ML SYRINGE SC (19:12)
--- NOTE | 2024-11-14 19:22 | ED.RN ---
CALLED [facility], ETA [phone].
[2024-11-15 14:14] LABS: Pathologist Review Reviewed
== END 2024-11-14 21:45 | disposition short-term general hospital (02) ==
PROVIDERS: Emergency Medicine; Nurse Practitioner Acute Care; Emergency Provider Emergency Medicine; PCP Family Medicine; Visit Provider Emergency Medicine
DX: O26.63 Liver and biliary tract disorders in the puerperium (principal); G35 Multiple sclerosis; O99.893 Other specified diseases and conditions complicating puerperium; R10.31 Right lower quadrant pain; R10.32 Left lower quadrant pain; R11.0 Nausea; K75.0 Abscess of liver; O99.355 Diseases of the nervous system complicating the puerperium; G43.909 Migraine, unspecified, not intractable, without status migrainosus; O99.53 Diseases of the respiratory system complicating the puerperium; O24.93 Unspecified diabetes mellitus in the puerperium; O90.81 Anemia of the puerperium; J45.909 Unspecified asthma, uncomplicated; O99.345 Other mental disorders complicating the puerperium; O99.13 Other diseases of the blood and blood-forming organs and certain disorders involving the immune mechanism complicating the puerperium; O99.63 Diseases of the digestive system complicating the puerperium; D72.829 Elevated white blood cell count, unspecified; F98.8 Other specified behavioral and emotional disorders with onset usually occurring in childhood and adolescence; O99.285 Endocrine, nutritional and metabolic diseases complicating the puerperium; E86.0 Dehydration; Z86.73 Personal history of transient ischemic attack (TIA), and cerebral infarction without residual deficits; Z79.84 Long term (current) use of oral hypoglycemic drugs; Z79.899 Other long term (current) drug therapy; Z87.59 Personal history of other complications of pregnancy, childbirth and the puerperium; Z98.891 History of uterine scar from previous surgery
CPT/HCPCS: 74176; 74177; 80053; 81001; 83690; 85025; 85610; 85730; 86850; 86900; 86901; 96361; 96365; 96372; 96375; 96376; 99284; Q9967; A4216; J2405

== ENCOUNTER → 2025-02-25 | Outpatient (CLI) | payer MEDICAID, SELFPAY ==
[2025-02-25 11:07] LABS: Absolute Lymphocyte Count 2.41 X10^3/uL (0.83-4.51); Absolute Neutrophil Count 4.7 X10^3/uL (2.0-7.7); Basophil# 0.03 X10^3/uL; Basophil% 0.4 % (0-1); Eosinophil# 0.09 X10^3/uL; Eosinophils% 1.2 % (0-5); Hematocrit 35.3 % (37-47); Hemoglobin 11.3 g/dL (12.0-15.0); Lymphocyte # 2.41 X10^3/ul (0.83-4.51); Mean Corpuscular Hgb 24.6 pg (27.0-32.0); Mean Corpuscular Volume 76.7 fL (81-99); Mean Platelet Vol. 9.1 fl (6.2-12.0); Monocyte# 0.47 X10^3/uL; NRBC Flagged by Analyzer 0 % (0-5); Neutrophil # 4.73 X10^3/uL (2.7-7.7); Neutrophil % 60.9 % (47-70); Platelet Count 291 K/mm3 (150-450); RBC Distribution Width CV 13.5 % (11.6-14.6); RBC Distribution Width SD 37.1 fl (35.1-43.9); White Blood Count 7.8 K/mm3 (4.4-11.0)
[2025-02-25 12:13] LABS: Hemoglobin A1c 12.4 % (<=5.6)
[2025-02-25 12:26] LABS: ALB/GLOB Ratio 1.2 RATIO (0.9-2.4); AST(SGOT) 12 U/L (<=31); Alanine Aminotransfer ALT/SGPT 11 U/L (<=34); Albumin, Serum 4.1 g/dL (3.5-5.0); Alkaline Phosphatase 100 U/L (35-104); Anion Gap 14 (5-15); BUN 18 mg/dL (4-19); BUN/Creat Ratio 25.3 RATIO (10-20); Calcium,Total 9.4 mg/dL (7.6-11.0); Carbon Dioxide 20.8 mmol/L (21.0-32.0); Chloride 97 mmol/L (98-108); EST Glomerular Filtration Rate 117 (>60); Globulin 3.4 g/dL (2.2-4.2); Glucose 355 mg/dL (70-99); HIV Nonreactive (Nonreactive); Potassium 4.8 mmol/L (3.3-5.1); Protein, Total 7.4 g/dL (5.9-8.4); Sodium Level 132 mmol/L (133-145); Total Bilirubin 0.23 mg/dL (0.00-1.30)
[2025-02-27 15:08] LABS: HPV APTIMA, High Risk Positive (Negative)
== END | disposition home or self-care (01) ==
PROVIDERS: PCP Family Medicine; Referring Provider Obstetrics & Gynecology; Visit Provider Obstetrics & Gynecology
DX: D62 Acute posthemorrhagic anemia (principal); Z13.29 Encounter for screening for other suspected endocrine disorder; Z11.3 Encounter for screening for infections with a predominantly sexual mode of transmission; Z13.1 Encounter for screening for diabetes mellitus; Z12.4 Encounter for screening for malignant neoplasm of cervix
CPT/HCPCS: 36415; 80053; 83036; 84443; 85025; 86703; 87624; 88175; G0145

== ENCOUNTER 2025-02-28 15:18 | Emergency (ER) | payer MEDICAID, SELFPAY ==
[2025-02-28 15:20] VITALS: BP 126/72; PULSE 108; RESP 19; TEMP 36.6; O2SAT 97; BMI 30.3
--- NOTE | 2025-02-28 15:48 | US_ITS ---
PROCEDURE: TRANSVAGINAL NON- (USTVAG), 02/28/2025 REASON FOR EXAM: MENORRHAGIA TECHNIQUE: Grayscale and color doppler transvaginal pelvic ultrasound was performed. COMPARISON: 10/28/2018 ; note that images only are available for review, the report is not available at the time of the dictation. FINDINGS: Uterus: 8.2 x 6.1 x 4.5 cm, Retroflexed. Unremarkable echotexture. Endometrium: 3 mm, unremarkable. IUD in the expected location. Cervix: Nabothian cyst. Right ovary: 3.0 x 1.8 x 1.6 cm. Unremarkable. Left ovary: 3.8 x 1.9 x 1.5 cm. Unremarkable. Free fluid: None visualized. Other: None. US/Transvaginal Non- IMPRESSION: 1. No acute abnormality or etiology for the reported symptoms is identified 2. Additional description as above. Reading Location: [id number]
--- NOTE | 2025-02-28 16:01 | EDS_ITS ---
<Statement entered by Jorge Samuels DO - 02/28/25 17:12> Patient was seen and examined with physician lab assistant Renetta All components of the history and physical confirmed and agreed. History of present illness and physical exam: Patient is a 30-year-old female with past medical history MS, CVA who presented to the emergency department chief complaint of vaginal bleeding. Patient states that she just recently had a ParaGard nonhormonal IUD placed about 3 days ago at [facility]. She states that night she had light spotting and the next morning started to have heavy bleeding which continued since then. States that she has been changing her super tampon about every 1 and half hours and wearing a pad. She states that she is passing small blood clots as well. She had a one-time episode of brief abdominal cramping with a gush of blood she
--- NOTE | 2025-02-28 16:01 | ED.VIS.FEGU ---
HPI HPI - Female History of Present Illness Chief Complaint: Vag Bleeding Narrative Narrative: 30-year-old female with PMH of multiple sclerosis, CVA presents with heavy vaginal bleeding. She had a nonhormonal ParaGard IUD placed 3 days ago (February 25) at [facility]. That night she had light spotting and the next morning she started to have heavy menstrual bleeding which has continued since then. She is changing a super tampon every 1.5 hours and wearing a pad. She has very small blood clots. She had 1 brief abdominal cramp today with a gush of blood but otherwise has had no abdominal pain. No fevers or chills or vomiting or vaginal discharge. She called the RIVETING MACHINE OPERATOR office who recommended she come in. She is on aspirin 81 mg for history of stroke, no blood thinners. [facility] Medical History ADD (attention deficit disorder) Multiple sclerosis Asthma Stroke Migraines Home Medications ?Medication ?Instructions ?Recorded ?Last Taken ?Type alprazolam 0.5 mg tablet 1 mg PO TID 04/16/17 Unknown History alprazolam 2 mg tablet 2 mg PO QHS 12/20/18 Unknown History dextroamphetamine-amphetamine ER 20 mg PO BID 02/10/22 Unknown History 20 mg 24hr capsule,extend release fremanezumab-vfrm 225 mg/1.5 mL 675 mg subcut [id number] 02/10/22 Unknown History subcutaneous auto-injector (Ajovy) nabumetone 500 mg tablet 500 mg PO BID #30 tabs 02/10/22 Unknown Rx labetalol 200 mg tablet 200 mg PO BID 30 days #60 tabs 11/09/24 Unknown Rx metformin 500 mg tablet,extended 1,000 mg (2 x 500 mg) PO DAILY #60 11/09/24 Unknown Rx release 24 hr tabs metformin 500 mg tablet,extended 1,000 mg (2 x 500 mg) PO DAILYCM 11/09/24 Unknown Rx release 24 hr 30 days #60 tabs naproxen 500 mg tablet 500 mg PO Q8H 14 days #42 tabs 11/09/24 Unknown Rx nifedipine 30 mg tablet,extended 30 mg PO BID 30 days #60 tabs 11/09/24 Unknown Rx release 24 hr nifedipine 30 mg tablet,extended 30 mg PO BID #60 tabs 11/09/24 Unknown Rx release 24 hr (Procardia XL) insulin glargine 100 unit/mL (3 14 unit subcut QPM 02/25/25 Unknown History mL) subcutaneous pen (Basaglar KwikPen U-100 Insulin) lamotrigine 25 mg tablet (Lamictal) 25 mg PO ONCE 02/25/25 Unknown History sulfamethoxazole 800 1 tab PO BID 10 days #20 tabs 02/25/25 Unknown Rx mg-trimethoprim 160 mg tablet (Bactrim DS) Allergy/AdvReac Type Severity Reaction Status Date / Time onabotulinumtoxinA (From Allergy Intermediate Itching Verified 02/28/25 15:20 Botox) adhesive tape (tape) Allergy Rash Verified 02/28/25 15:20 Latex, Natural Rubber Allergy Other Verified 02/28/25 15:20 verapamil Allergy Anaphylaxis Verified 02/28/25 15:20 Family History Father Heart disease Surgical History H/O knee surgery H/O dilation and curettage History of appendectomy History of lumpectomy History of tonsillectomy and adenoidectomy Social History number of children: 2 current occupational status: employed 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 GI: Negative for abdominal pain, nausea, vomiting. : Negative for dysuria. EXAM Physical Exam Narrative Exam Narrative: CONST: Patient sitting in no acute distress. EYES: Normal inspection. NECK: Normal inspection. RESP: No respiratory distress, CTAB. CVS: Regular rate and rhythm, no murmur, no gallop. ABD: Soft and nontender, no guarding or rebound, nondistended. SKIN: Color normal, no rash, warm, dry, intact. EXTREMITIES: Normal appearance, no pedal edema. NEURO: Alert and answering questions appropriately. PSYCH: Normal affect. Const Vital Signs: 02/28/25 15:20 Temperature 98 F Temperature Source Temporal Pulse Rate 108 H Respiratory Rate 19 H Blood Pressure 126/72 H Blood Pressure Mean 90 Pulse Ox 97 Oxygen Delivery Method Room Air MDM MDM MDM Narrative Medical decision making narrative: Consults: RIVETING MACHINE OPERATOR Differential includes limited to IUD side effect, dysfunctional bleeding, /miscarriage, anemia 30-year-old female presents with heavy vaginal bleeding that started today after having a ParaGard IUD placed. No abdominal pain. She appears well and nontoxic. BP 126/72, heart rate 108, and otherwise stable vital signs. She has a soft, nontender abdomen and overall benign exam. Hemoglobin of 11.8 is at her baseline. Serum negative. Transvaginal ultrasound shows IUD is in place with no acute abnormalities. I spoke with on-call [place] RIVET[facility] MACHINE OPERATOR and spoke with Sylvia Mcintosh the HYDRATOR OPERATOR who states that ParaGard can cause heavy menstrual bleeding and the insertion may have irritated the uterine lining. They recommended monitoring and if bleeding worsens to return to ED, otherwise follow-up in the office next week. Patient was comfortable with this plan and discharged in stable condition. Lab Data Attestation: I reviewed the patient's lab results. Labs: Laboratory Results - last 24 hr 02/28/25 16:05 WBC 8.5 RBC 4.80 Hgb 11.8 L Hct 36.2 L MCV 75.4 L MCH 24.6 L MCHC 32.6 RDW Std Deviation 37.0 RDW Coeff of Betsey 13.7 Plt Count 333 MPV 8.7 Immature Gran % (Auto) 0.500 Neut % (Auto) 59.9 Lymph % (Auto) 32.2 [place] % (Auto) 5.7 Eos % (Auto) 1.2 Baso % (Auto) 0.5 Absolute Neuts (auto) 5.1 Absolute Lymphs (auto) 2.75 Nucleated RBC % 0 Serum , Qual NEGATIVE Radiography Diagnostic Testing: Clinical Impression(s) from Imaging Studies Transvaginal US 02/28/25 15:48 IMPRESSION: 1. No acute abnormality or etiology for the reported symptoms is identified 2. Additional description as above. Reading Location: [facility] Discharge Plan Triage Chief Complaint: Vag Bleeding ED Midlevel Provider: Renetta Queen ED Provider: Jorge Samuels Dx/Rx/DC Orders Clinical Impression: Dysfunctional uterine bleeding, IUD (intrauterine device) in place Instructions: ED Dysfunctional Uterine Bleeding Prescriptions: No Action Ajovy Autoinjector 225 mg/1.5 mL auto-injector 675 mg subcut [id number] Rx Instructions: administer as 3 consecutive 225 mg injections nabumetone 500 mg tablet 500 mg PO BID Qty: 30 12RF lamotrigine [Lamictal] 25 mg tablet 25 mg PO ONCE insulin glargine [Basaglar KwikPen U-100 Insulin] 100 unit/mL (3 mL) insulin pen 14 unit subcut QPM sulfamethoxazole-trimethoprim [Bactrim DS] 800-160 mg tablet 1 tab PO BID 10 Days Qty: 20 0RF alprazolam 0.5 MG tablet 1 mg PO TID Patient Comments: PATIENT HAS NOT HAD ANY FOR A COUPLE OF WEEKS. dextroamphetamine-amphetamine 20 mg capsule,extended release 24hr 20 mg PO BID alprazolam 2 MG tablet 2 mg PO QHS nifedipine 30 mg Tablet Extended Release 24hr 30 mg PO BID 30 Days Qty: 60 1RF labetalol 200 mg Tablet 200 mg PO BID 30 Days Qty: 60 1RF metformin 500 mg Tablet Extended Release 24 Hr 1,000 mg PO DAILYCM 30 Days Qty: 60 1RF naproxen 500 mg Tablet 500 mg PO Q8H 14 Days Qty: 42 0RF metformin 500 mg tablet extended release 24 hr 1,000 mg PO DAILY Qty: 60 1RF nifedipine [Procardia XL] 30 mg tablet extended release 24hr 30 mg PO BID Qty: 60 2RF Primary Care Provider: Radha Pascual Referrals: Kevin Sotelo MD [Non-Staff] - Activity Restrictions/Additional Instructions: The ultrasound showed your IUD is in place and there are no abnormalities. your blood work shows you are mildly anemic but you have been this level in the past. I recommend monitoring your symptoms and if the bleeding becomes heavy or worsens come back to the ER, otherwise follow-up with RIVETING MACHINE OPERATOR next week. Print Language: Greenlandic Disposition Disposition: Home, Self Care
[2025-02-28 16:18] LABS: Absolute Lymphocyte Count 2.75 X10^3/uL (0.83-4.51); Absolute Neutrophil Count 5.1 X10^3/uL (2.0-7.7); Basophil# 0.04 X10^3/uL; Basophil% 0.5 % (0-1); Eosinophils% 1.2 % (0-5); Hematocrit 36.2 % (37-47); Hemoglobin 11.8 g/dL (12.0-15.0); Lymphocyte # 2.75 X10^3/ul (0.83-4.51); Lymphocyte % 32.2 % (19-41); Mean Corp Hgb Conc 32.6 g/dL (32-36); Mean Corpuscular Hgb 24.6 pg (27.0-32.0); Mean Corpuscular Volume 75.4 fL (81-99); Mean Platelet Vol. 8.7 fl (6.2-12.0); Monocyte# 0.49 X10^3/uL; Monocyte% 5.7 % (0-10); NRBC Flagged by Analyzer 0 % (0-5); Neutrophil # 5.11 X10^3/uL (2.7-7.7); Neutrophil % 59.9 % (47-70); Platelet Count 333 K/mm3 (150-450); RBC Distribution Width CV 13.7 % (11.6-14.6); White Blood Count 8.5 K/mm3 (4.4-11.0)
[2025-02-28 16:31] LABS: Internal QC Validated? YES +Cl - CLEAR BKGD; Pregnancy, Serum, hCG Quali. NEGATIVE Negative
[2025-02-28 17:12] VITALS: BP 108/70; PULSE 68; RESP 12; TEMP 36.6; O2SAT 100
== END 2025-02-28 17:13 | disposition home or self-care (01) ==
PROVIDERS: Physician Assistant; Emergency Provider Emergency Medicine; PCP Internal Medicine; Visit Provider Emergency Medicine
DX: N93.8 Other specified abnormal uterine and vaginal bleeding (principal); G35 Multiple sclerosis; N92.0 Excessive and frequent menstruation with regular cycle; F98.8 Other specified behavioral and emotional disorders with onset usually occurring in childhood and adolescence; G43.909 Migraine, unspecified, not intractable, without status migrainosus; Z97.5 Presence of (intrauterine) contraceptive device; Z79.82 Long term (current) use of aspirin; Z86.73 Personal history of transient ischemic attack (TIA), and cerebral infarction without residual deficits; Z79.899 Other long term (current) drug therapy
CPT/HCPCS: 76830; 84703; 85025; 99283

== ENCOUNTER → 2025-04-24 | Outpatient (CLI) | payer MEDICAID, SELFPAY ==
[2025-04-28 22:06] LABS: Pancreatic Elastase, Fecal 427 (>200)
== END | disposition home or self-care (01) ==
LOC: LABSPEC 11:09
PROVIDERS: PCP Internal Medicine; Referring Provider Nurse Practitioner Acute Care; Visit Provider Nurse Practitioner Acute Care
DX: K58.9 Irritable bowel syndrome, unspecified (principal); R14.0 Abdominal distension (gaseous); R19.7 Diarrhea, unspecified
CPT/HCPCS: 82653; 87177; 87209; 87493; 87506

== ENCOUNTER → 2025-05-09 | Outpatient (CLI) | payer MEDICAID, SELFPAY ==
--- NOTE | 2025-05-09 10:07 | US_ITS ---
PROCEDURE: ABDOMEN LIMITED 05/09/2025 REASON FOR EXAM: ABD PAIN AND BLOATING COMPARISON: Prior CT scan dated November 14, 2024. FINDINGS: Liver: Grossly normal size and echotexture. Gallbladder: No stones sludge wall thickening or tenderness. The gallbladder wall measures 1.9 mm. Common bile duct: Normal measuring 3.2 mm . Pancreas: Visualized portions are unremarkable. The distal body and tail are obscured by bowel gas. Other: Visualized portions of the right kidney are unremarkable. No right upper quadrant ascites. US/Abdomen Limited IMPRESSION: Essentially unremarkable examination. Reading Location: [facility]
== END | disposition home or self-care (01) ==
LOC: US 10:04
PROVIDERS: PCP Internal Medicine; Referring Provider Nurse Practitioner Acute Care; Visit Provider Nurse Practitioner Acute Care
DX: R19.7 Diarrhea, unspecified (principal); R14.0 Abdominal distension (gaseous)
CPT/HCPCS: 76705

== ENCOUNTER → 2025-05-28 | Outpatient (CLI) | payer MEDICAID, SELFPAY | END | disposition home or self-care (01) | LOC: BIMLAB 10:50 | PROVIDERS: Physician Assistant; PCP Internal Medicine; Visit Provider Internal Medicine | DX: R82.5 Elevated urine levels of drugs, medicaments and biological substances (principal) ==

== ENCOUNTER → 2025-06-13 | Outpatient (CLI) | payer MEDICAID, SELFPAY ==
[2025-06-13 12:20] LABS: Hematocrit 39.0 % (37-47); Hemoglobin 12.7 g/dL (12.0-15.0); Immature Granulocytes Count 0.020 X10^3/uL (0.0-0.0); Mean Corp Hgb Conc 32.6 g/dL (32-36); Mean Corpuscular Volume 75.1 fL (81-99); Mean Platelet Vol. 9.3 fl (6.2-12.0); NRBC Flagged by Analyzer 0 % (0-5); Platelet Count 271 K/mm3 (150-450); RBC Distribution Width CV 15.4 % (11.6-14.6); RBC Distribution Width SD 41.7 fl (35.1-43.9); Red Blood Count 5.19 M/mm3 (4.2-5.4); White Blood Count 6.6 K/mm3 (4.4-11.0)
[2025-06-13 12:34] LABS: Partial Thromboplast Time 24.8 Seconds (24.1-36.2); Prothrombin Time (Protime)PT. 12.5 SECONDS (11.7-14.9)
[2025-06-13 13:03] LABS: AST(SGOT) 15 U/L (<=31); Alanine Aminotransfer ALT/SGPT 22 U/L (<=34); Albumin, Serum 4.5 g/dL (3.5-5.0); Alkaline Phosphatase 121 U/L (35-104); Anion Gap 14 (5-15); BUN 9 mg/dL (4-19); BUN/Creat Ratio 11.4 RATIO (10-20); Calcium,Total 9.6 mg/dL (7.6-11.0); Carbon Dioxide 23.1 mmol/L (21.0-32.0); Chloride 98 mmol/L (98-108); Globulin 3.3 g/dL (2.2-4.2); Glucose 308 mg/dL (70-99); Potassium 4.0 mmol/L (3.3-5.1)
== END | disposition home or self-care (01) ==
PROVIDERS: PCP Internal Medicine; Referring Provider Obstetrics & Gynecology; Visit Provider Obstetrics & Gynecology
DX: D64.9 Anemia, unspecified (principal); Z13.1 Encounter for screening for diabetes mellitus
CPT/HCPCS: 36415; 80053; 83036; 84443; 85025; 85610; 85730

== ENCOUNTER → 2025-07-12 | Outpatient (CLI) | payer MEDICAID, SELFPAY ==
--- OUTSIDE RECORDS SUMMARY | 2025-07-12 11:36 | XMS RPT_ITS | CCD ---
Author Organization [facility] CliniSyme Care Team Providers Care Automation Engineer Name Role Phone PROVIDER, UNKNOWN Unavailable Unavailable Khadijah, Nishant Unavailable Unavailable Khadijah, Nishant Unavailable Unavailable Bledsoe, Tony Unavailable Unavailable Khadijah, Nishant Unavailable Unavailable Gayle Mill, Nishant Unavailable Unavailable Cyndie Orlandoe Unavailable Unavailable Khadijah, Nishant Unavailable Unavailable Gayle Mill, Nishant Unavailable Unavailable PROVIDER, UNKNOWN Unavailable Unavailable Khadijah, Nishant Unavailable Unavailable Khadijah, Nishant Unavailable Unavailable Taylor, Zhao Unavailable Unavailable Khadijah, Nishant Unavailable Unavailable Khadijah, Nishant Unavailable Unavailable Emmanuel, Edith Unavailable Unavailable Khadijah, Nishant Unavailable Unavailable Khadijah, Nishant Unavailable Unavailable PROVIDER, UNKNOWN Unavailable Unavailable Gayle Mill, Nishant Unavailable Unavailable Khadijah, Nishant Unavailable Unavailable Gayle Mill, Nishant Unavailable Unavailable Khadijah, Nishant Unavailable Unavailable KRISTIN, YUE Unavailable Unavailable ELEAZAR, SHYANN Unavailable Unavailable Becky Sotelo Unavailable Unavailable Becky Sotelo Unavailable Unavailable JORDY CADE Referring Unavailable JORDY CADE Referring Unavailable Dr. Becky Sotelo Primary Care Provider Dr. Becky Sotelo Referring Provider Dr. Elaine Jones Attending Provider Becky Sotelo MD Primary Care Provider PROVIDER, UNKNOWN Attending Unavailable PROVIDER, UNKNOWN Admitting Unavailable PROVIDER, UNKNOWN Attending Unavailable PROVIDER, UNKNOWN Admitting Unavailable PROVIDER, UNKNOWN Admitting Unavailable PROVIDER, UNKNOWN Attending Unavailable PROVIDER, UNKNOWN Admitting Unavailable PROVIDER, UNKNOWN Attending Unavailable PROVIDER, UNKNOWN Admitting Unavailable PROVIDER, UNKNOWN Attending Unavailable PROVIDER, UNKNOWN Attending Unavailable PROVIDER, UNKNOWN Admitting Unavailable PROVIDER, UNKNOWN Admitting Unavailable NEDRA HURTADO Attending Unavailable ADELFO NICE Admitting Unavailable ADELFO NICE Attending Unavailable [phone], IP EGS TEAM Consulting Unavailabl e CONSULT, IP INFECTIOUS DISEASE Consulting U navailable CONSULT, IP OB HIGH RISK Consulting Unavail able REQUEST, IP SOCIAL WORK SERVICE Consulting Unavailable CONSULT, IP PSYCHIATRIC ADULT Consulting Un available PROVIDER, UNKNOWN Admitting Unavailable APRIL ABEBE Attending Unavailable PROVIDER, UNKNOWN Admitting Unavailable PROVIDER, UNKNOWN Attending Unavailable SHEILA LAMAR Referring Unavailable Nedra Hurtado MD Unavailable Unavailable Primary Care Provider Unavailabl e Ashleigh MALIK, Dr. Brown Primary Care Provider [phone] Ashleigh MALIK, Dr. Brown Referring Provider [phone] Karen MALIK, Dr. Henry Attending Provider Karen MALIK, Dr. Henry Referring Provider Dr. Jorge Samuels DO Attending Provider Dr. Jorge Samuels DO Emergency Provider Samara MALIK, Dr. Garcia Primary Care Provider [phone] Humberto Yao Attending Provider Dr. Radha Pascual MD Referring Provider Sb BOWLING ALLEY OPERATOR-CLa Attending Provider Sb BOWLING ALLEY OPERATOR-CLa Referring Provider Samara MALIK, Dr. Garcia Attending Provider Elaine Jones Admitting Unavailable Kenyatta Chin Attending Unavailable Becky Sotelo Primary Care Unavailable Elaine Jones Referring Unavailable Elaine Jones Consulting Unavailable Elaine Jones Attending Unavailable Becky Sotelo Referring Unavailable Becky Sotelo Primary Care Unavailable Elaine Jones Attending Unavailable Radha Pascual Referring Unavailable Radha Pascual Primary Care Unavailable La Basurto Attending Unavailable Samara Radha Primary Care Unavailable La Basurto Attending Unavailable La Basurto Referring Unavailable Elaine Jones Attending Unavailable [place]bro[place], Becky Primary Care Unavailable AprilonyElaine Referring Unavailable AprilonyElaine Admitting Unavailable [place], Radha Primary Care Unavailable RENAY BEJARANO Attending Unavailable Samara, Radha Primary Care Unavailable La Basurto Attending Unavailable La Basurto Referring Unavailable Marcanthony, Elaine Referring Unavailable Elderbrock, Becky Primary Care Unavailable Elaine Jones Attending Unavailable Aprilony, Elaine Referring Unavailable Dre Dillon Attending Unavailable [place], Becky Primary Care Unavailable Genesis Mcintosh Attending Unavailable [place], Becky Referring Unavailable [place], Becky Primary Care Unavailable Nando Mathews Attending Unavailable [place], Becky Referring Unavailable [place], Becky Primary Care Unavailable MarcanthonyElaine Attending Unavailable Marcanthony, Elaine Attending Unavailable Samara, Radha Referring Unavailable Samara, Radha Primary Care Unavailable Samara, Radha Referring Unavailable [place], Radha Primary Care Unavailable Humberto Yao Attending Unavailable [place], Radha Referring Unavailable [place], Radha Primary Care Unavailable La Basurto Attending Unavailable [place], Radha Attending Unavailable Samara, Radha Primary Care Unavailable Elaine Jones Attending Unavailable [place], Radha Primary Care Unavailable Marcanthony, Elaine Referring Unavailable Samara, Radha Primary Care Unavailable Jorge Samuels Attending Unavailable Sheila Lamar Attending Unavailable [place], Becky Primary Care Unavailable Samara, Radha Primary Care Unavailable Humberto Yao Attending Unavailable [place], Becky Referring Unavailable Humberto Yao Attending Unavailable Samara, Radha Referring Unavailable Samara, Radha Primary Care Unavailable [place], Radha Primary Care Unavailable [place]brock, Becky Referring Unavailable Elaine Jones Attending Unavailable Allergies Allergy Classification Reported Allergen(s) Allergy Type Date of Onset Reaction(s) Facility (20 sources) Latex; Translations: [LATEX] Propensity to adverse reactions (disorder) 7 Unknown, Other, Rash [facility] Repository (20 sources) Verapamil; Translations: [VERAPAMIL] Drug Allergy 8 Anaphylaxis, Anaphylactic Shock [facility] Repository (2 sources) OTHER; Translations: [OTHER] Propensity to adverse reactions (disorder) 6 [facility] Repository (1 source) Adhesive Tape Allergy to substance [address] [facility] Work Phone: (13 sources) Botulinum Toxin Type A; Translations: [ONABOTULINUMTO XINA] Drug Allergy 0 Other: See Comments [facility] Work Phone: (11 sources) natural latex rubber; Translations: [Latex, Natural Rubber] Allergy to substance [address] [facility] Comment on above: SWELLING, REDNESS, I TCHING (2 sources) TAPE [Other] Propensity to adverse reactions 6 Rash [facility] (19 sources) BOTULINUM TOXIN TYPE A; Translations: [BOTULINUM TOXIN TYPE A] Propensity to adverse reactions to drug (disorder) 2 [facility] (19 sources) BANDAGE TAPE; Translations: [BANDAGE TAPE] Propensity to adverse reactions (disorder) 7 Rash [facility] (18 sources) Botulinum Toxin Type A Drug Allergy 0 Itching, Rash, Swelling [facility] (10 sources) Adhesive Tape; Translations: [adhesive tape] Allergy to substance 5 [facility] (1 source) Botulinum Toxin Type A Drug Allergy 5 [facility] Repository Medications Current Medications Medication Drug Class(es) Dates Sig (Normalized) Sig (Original) acetaminophen 500 mg oral tablet (19 sources) Start: 11-17-2024 take 2 tablets by mouth every six hours in the morning acetaminophen (TYLENOL) 500 MG tablet Take 2 Tablets by mouth every 6 hours. 30 Tablet 11/18/2024 8:57 AM EST 11/17/2024 Active Start: 11-15-2024 End: 11-19-2024 take 1000 mg by mouth every six hours 1,000 mg, Oral, EVERY 6 HOURS, First dose on Mon11/15/24 at 0330, Until Discontinued acetaminophen 325 mg / butalbital 50 mg / caffeine 40 mg oral tablet (2 sources) Barbiturate, Central Nervous System Stimulant, Methylxanthine take 1 tablet by mouth every four hours as needed acetaminophen 325 mg-caffeine 40 mg-butalbital 50 mg (FIORICET) per tablet Take 1 tablet by mouth every 4 hours as needed. 0 Active Albuterol-Budesonide (Airsupra) 90-80 mcg/actuation HFA aerosol inhaler (1 source) Start: 06-20-20 Albuterol-Budesonide (Airsupra) 90-80 mcg/actuation HFA aerosol inhaler Active 2 NMA INHALATION .Q4 hours as needed for shortness of breath 10.7 0 June 20, 2025 12:00am as a single dose; may repeat up to 6 doses per day (12 inhalations) ALPRAZolam 0.5 mg oral tablet (20 sources) Benzodiazepine Start: 08-21-20 ALPRAZolam (XANAX) 0.5 mg tablet Start: 12-20-2018 take 1 tablet by joshua th at bedtime Alprazolam 2 MG tablet Active 2 mg PO AT BEDTIME December 20, 2018 1:00am Start: 04-16-2017 take 1 mg by mouth t hree times daily Alprazolam Active 1 MG PO THREE TIMES A DAY April 16, 2017 5:02pm Start: 04-16-2017 take 2 tablets by mo [facility] three times daily Alprazolam 0.5 MG tablet Active 1 mg PO THREE TIMES A DAY April 16, 2017 12:00am End: 11-19-2024 take 4 tablets by mouth three times daily as needed for anxiety ALPRAZolam (XANAX) 0.25 MG tablet Take 1 mg by mouth 3 times daily as needed for Anxiety. 11/19/2024 Discontinued 24 hr amphetamine aspartate 5 mg / amphetamine sulfate 5 mg / dextroamphetamine saccharate 5 mg / dextroamphetamine sulfate 5 mg extended release oral capsule (20 sources) Central Nervous System Stimulant Start: 02-10-2022 take 1 capsule by mouth twice daily Dextroamphetamine-Amphetamine 20 mg capsule,extended release 24hr Active 20 mg PO TWICE A DAY February 10, 2022 12:01pm Start: 04-16-2017 End: 02-10-2022 take 1 capsule by mouth once daily Dextroamphetamine-Amphetamine 20 mg capsule,extended release 24hr Discontinued 20 mg PO DAILY February 09, 2021 9:07am February 10, 2022 12:02pm End: 11-19-2024 amphetamine-dextroamphetamin e (ADDERALL) 5 MG tablet Take 20 mg by mouth 2 times daily. 11/19/2024 Discontinued aspirin 81 mg delayed release oral tablet (2 sources) Platelet Aggregation Inhibitor, Nonsteroidal Anti-inflammatory Drug take 1 tablet by mouth once daily aspirin, enteric coated (ASPIRIN, ENTERIC COATED) 81 mg EC tablet Take 81 mg by mouth once daily. 0 Active Blood Glucose Monitoring Suppl (Blood Glucose Monitor System) w/Device KIT (17 sources) Start: 11-17-19 25 Blood Glucose Monitoring Suppl (Blood Glucose Monitor System) w/Device KIT 1 Kit as needed. As covered by insurance. Dx: DM2, uncontrolled (E11.65) with long-term insulin use (Z79.4) 1 Kit 11/18/2024 8:57 AM EST 11/17/2024 Active Blood-Glucose Meter misc (2 sources) Start: 10-15-20 18 Blood-Glucose Meter misc Indications: Type 2 diabetes mellitus without complication, unspecified whether chcf insulin use (HCC) 1 Package four times daily. Check blood sugars fasting and 2 hours after meals. 1 Each 0 10/15/2018 Active Blood-Glucose Sensor (Dexcom G7 Sensor) device (10 sources) Start: 06-20-20 25 Blood-Glucose Sensor (Dexcom G7 Sensor) device Active 0 .Route 12 June 20, 2025 8:50am As directed Start: 03-07-2025 End: 06-20-2025 Blood-Glucose Sensor (Dexcom G7 Sensor) device Discontinued 0 .Route 12 March 07, 2025 12:00am June 20, 2025 8:50am As directed Start: 03-07-2025 Blood-Glucose Sensor (Dexcom G7 Sensor) device Active 0 .Route 12 March 07, 2025 12:00am As directed Start: 03-07-2025 Blood-Glucose Sensor (Dexcom G7 Sensor) device Active 0 .Route March 07, 2025 12:00am As directed Blood-Glucose,Blind Cleaner,Cont (Dexcom G7 Blind Cleaner) misc (14 sources) Start: 05-05-2025 Blood-Glucose,Blind Cleaner,Cont (Dexcom G7 Blind Cleaner) misc Active 0 .Route 1 May 05, 2025 3:42pm As directed Start: 03-07-2025 End: 05-05-2025 Blood-Glucose,Blind Cleaner,Cont (Dexcom G7 Blind Cleaner) misc Discontinued 0 .Route 1 0 March 07, 2025 12:00am May 05, 2025 3:42pm As directed Start: 03-07-2025 Blood-Glucose, Blind Cleaner,Cont (Dexcom G7 Blind Cleaner) misc Active 0 .Route 1 0 March 07, 2025 12:00am As directed Start: 03-07-2025 Blood-Glucose, Blind Cleaner,Cont (Dexcom G7 Blind Cleaner) misc Active 0 .Route 1 March 07, 2025 12:00am As directed 12 hr buPROPion hydrochloride 150 mg extended release oral tablet (2 sources) Aminoketone Start: 10-01-2018 take 1 tablet by mouth twice daily buPROPion SR (ZYBAN SR; WELLBUTRIN SR) 150 mg 12 hr tablet Indications: Anxiety Take 1 tablet by mouth twice daily. 60 tablet 1 10/01/2018 Active busPIRone hydrochloride 5 mg oral tablet (3 sources) Start: 06-13-2025 take 1 tablet by mouth twice daily Buspirone 5 mg tablet Active 5 mg PO TWICE A DAY June 13, 2025 12:00am cetirizine hydrochloride 10 mg oral tablet (2 sources) Histamine-1 Receptor Antagonist Start: 08-22-2017 take 1 tablet by mouth once daily cetirizine (ZYRTEC) 10 mg tablet Take 10 mg by mouth once daily. 0 08/22/2017 Active copper 313 mg drug implant (8 sources) Copper-containing Intrauterine Device Start: 03-31-2025 Copper (Paragard T 380a) 380 square mm intrauterine device Active 1 NMA INTRA-UTER ONCE March 31, 2025 12:00am as a single dose cyclobenzaprine hydrochloride 10 mg oral tablet (20 sources) Muscle Relaxant Start: 11-27-2024 take 1 tablet by mouth three times daily as needed for muscle spasms cyclobenzaprine (FLEXERIL) 10 MG tablet Take 1 Tablet by mouth 3 times daily as needed for Muscle spasms. 21 Tablet 11/27/2024 Active Start: 11-17-2024 End: 11-27-2024 take 2 tablets by mouth three times daily as needed for muscle spasms cyclobenzaprine (FLEXERIL) 5 MG tablet Take 2 Tablets by mouth 3 times daily as needed for Muscle spasms. 30 Tablet 11/18/2024 8:57 AM EST 11/17/2024 11/27/2024 Discontinued Start: 11-16-2024 End: 11-19-2024 take 10 mg by mouth three times daily as needed for muscle spasms 10 mg, Oral, 3 TIMES DAILY PRN, Starting on 11/16/24 at 0802, Until 11/19/24 at 2051, Muscle spasms Start: 10-07-2021 take 1 tablet by joshua th every twelve hours as needed cyclobenzaprine (FLEXERIL) 10 mg tablet Take 1 tablet by mouth twice daily as needed. 10 tablet 1 10/07/2021 Active cyproheptadine hydrochloride 4 mg oral tablet (19 sources) Start: 11-16-2024 End: 11-19-2024 take 1 tablet by mouth three times daily as needed cyproheptadine (PERIACTIN) 4 MG tablet Take 1 Tablet by mouth 3 times daily as needed for Allergies. 90 Tablet 3 11/18/2024 8:57 AM EST 11/17/2024 Active docusate sodium 100 mg oral capsule (19 sources) Start: 11-16-2024 End: 11-19-2024 take 1 capsule by mouth twice daily in the morning docusate sodium (COLACE) 100 MG capsule Take 1 Capsule by mouth 2 times daily. 60 Capsule 3 11/18/2024 8:57 AM EST 11/17/2024 Active [id number] 0.3 ml EPINEPHrine 1 mg/ml auto-injector (10 sources) alpha-Adrenergic Agonist, beta-Adrenergic Agonist, Catecholamine Start: 03-28-2025 Epinephrine (Epipen 2-Heber) 0.3 mg/0.3 mL auto-injector Active 0.3 mg IM ONCE 2 March 28, 2025 12:00am as a single dose; may repeat once Start: 12-23-2016 EPINEPHrine (E PIPEN) 0.3 mg/0.3 mL auto-injector Use as directed prn allergic reaction 2 Each 1 12/23/2016 Active ferrous sulfate 325 mg delayed release oral tablet (9 sources) Start: 03-08-2025 take 1 tablet by mouth once daily Ferrous Sulfate 325 mg (65 mg iron) tablet,delayed release (DR/EC) Active 325 mg PO daily 90 March 08, 2025 12:00am 1.5 ml fremanezumab-vfrm 150 mg/ml auto-injector (12 sources) Start: 02-10-2022 Fremanezumab-V frm (Ajovy Autoinjector) 225 mg/1.5 mL auto-injector Active 675 mg SC every 3 months February 10, 2022 12:00am administer as 3 consecutive 225 mg injections Start: 07-22-2021 AJOVY AUTOINJE CTOR 225 mg/1.5 mL auto-injector INJECT 3 PENS INTO THE SKIN EVERY 3 MONTHS 0 07/22/2021 Active gabapentin 800 mg oral tablet (2 sources) Anti-epileptic Agent gabapentin (NEURONTIN) 800 mg tablet Take 800 mg by mouth. takes a sneeded 0 Active hydrOXYzine pamoate 25 mg oral capsule (2 sources) Antihistamine Start: 01-14-20 take 1 capsule by mouth every eight hours as needed hydrOXYzine pamoate (VISTARIL) 25 mg capsule Take 1 capsule by mouth three times daily as needed for Anxiety. 30 capsule 2 01/13/2017 Active ibuprofen 600 mg oral tablet (19 sources) Nonsteroidal Anti-inflammatory Drug Start: 11-15-19 End: 11-19-19 take 1 tablet by mouth every six hours in the morning ibuprofen (MOTRIN) 600 MG tablet Take 1 Tablet by mouth every 6 hours. 30 Tablet 3 11/18/2024 8:57 AM EST 11/17/2024 Active 3 ml insulin glargine 100 unt/ml pen injector (20 sources) Insulin Analog Start: 03-31-20 Insulin Glargine (Basaglar Kwikpen U-100 Insulin) 100 unit/mL (3 mL) insulin pen Active 16 U SC EVERY EVENING March 31, 2025 1:43pm Start: 02-25-2025 End: 03-31-2025 Insulin Glargine (Basaglar K babitakpen U-100 Insulin) 100 unit/mL (3 mL) insulin pen Discontinued 14 U SC EVERY EVENING February 25, 2025 12:00am March 31, 2025 1:44pm Start: 11-15-2024 End: 11-19-2024 insulin glargine (L[facility]US [facility] OSTAR/BASAGLAR KWIKPEN) 100 UNIT/ML pen Inject 14 Units under the skin at bedtime. 15 mL 5 11/18/2024 8:57 AM EST 11/17/2024 Active 3 ml insulin lispro 100 unt/ml pen injector (20 sources) Insulin Analog Start: 03-07-2025 End: 03-31-2025 Insulin Lispro 100 unit/mL insulin pen Active 4 U SC THREE TIMES A DAY March 31, 2025 1:43pm Diabetes mellitus Type 2 diabetes mellitus without complications Start: 11-19-2024 End: 11-19-2024 6 Units, Subcutaneous, ONCE, 1 dose, On Tu11/19/24 at 1300 Start: 11-16-2024 End: 11-16-2024 4 Units, Subcutaneous, ONCE, 1 dose, On 11/16/24 at 1830 Start: 11-16-2024 End: 11-16-2024 2 Units, Subcutaneous, ONCE, 1 dose, On 11/16/24 at 1130 Start: 11-15-2024 End: 11-15-2024 4 Units, Subcutaneous, ONCE, 1 dose, On Mon11/15/24 at 1530 Start: 11-15-2024 End: 11-15-2024 2 Units, Subcutaneous, ONCE, 1 dose, On Mon11/15/24 at 0400 Start: 11-15-2024 End: 11-15-2024 2 Units, Subcutaneous, ONCE, 1 dose, On Mon11/15/24 at 0130 isopropyl alcohol 0.7 ml/ml medicated pad (18 sources) Start: 11-17-2024 End: 11-12-2025 alcohol swabs pads Use to clean skin prior to checking blood sugar and/or injecting medication 300 Each 3 11/18/2024 8:57 AM EST 11/17/2024 11/12/2025 Active 2 ml ketorolac tromethamine 30 mg/ml injection (2 sources) Nonsteroidal Anti-inflammatory Drug, Cyclooxygenase Inhibitor Start: 08-16-2021 keTORolac (TORADOL) 60 mg/2 mL soln INJECT 1 ML INTO THE MUSCLE EVERY 12 HOURS NEEDED FOR PAIN (MIGRAINE) 0 08/16/2021 Active labetalol hydrochloride 200 mg oral tablet (20 sources) beta-Adrenergic Clare Start: 11-09-2024 End: 02-25-2025 take 1 tablet by mouth twice daily labetalol (NORMODYNE) 200 MG tablet Take 1 Tablet by mouth 2 times daily. 60 Tablet 3 11/17/2024 Active lamoTRIgine 25 mg oral tablet (20 sources) Mood Stabilizer, Anti-epileptic Agent Start: 11-15-2024 End: 03-07-2025 take 1 tablet by mouth once daily in the morning lamoTRIgine (LaMICtal) 25 MG tablet Take 1 Tablet by mouth daily. 30 Tablet 3 11/18/2024 8:57 AM EST 11/18/2024 Active Start: 10-01-2018 take 1 tablet by joshua th once daily lamoTRIgine (LAMICTAL) 100 mg tablet Take 1 tablet by mouth once daily. 30 tablet 0 10/01/2018 Active meclizine hydrochloride 25 mg oral tablet (2 sources) Antiemetic Start: 01-13-2017 take 1 tablet by mouth every six hours as needed for dizziness meclizine (ANTIVERT) 25 mg tab Indications: Benign paroxysmal positional vertigo, unspecified laterality Take 1 tablet by mouth every 6 hours as needed (dizziness). 30 tablet 2 01/13/2017 Active 24 hr metFORMIN hydrochloride 500 mg extended release oral tablet (20 sources) Biguanide Start: 03-07-2025 Metformin 500 mg tablet extended release 24 hr Active 1000 mg PO TWICE A DAY March 07, 2025 8:39am Start: 11-17-2024 End: 11-17-2025 take 2 tablets by mouth twice daily at mealtime metFORMIN (GLUCOPHAGE) 500 MG tablet Take 2 Tablets by mouth 2 times daily (with meals). 360 Tablet 3 11/18/2024 8:57 AM EST 11/17/2024 11/17/2025 Active Start: 11-15-2024 End: 11-19-2024 take 1000 mg by mouth twice daily at mealtime 1,000 mg, Oral, 2 TIMES DAILY WITH MEALS, First dose on Mon11/15/24 at 1700, Until Discontinued Start: 11-09-2024 End: 03-07-2025 Metformin 500 mg Tablet Exte nded Release 24 Hr Discontinued 1000 mg PO DAILY WITH MEALS 60 30 November 09, 2024 1:00am March 07, 2025 8:39am Start: 10-08-2021 take 1 tablet by joshua th once daily at dinner metFORMIN ER (GLUCOPHAGE XR) 500 mg 24 hr tablet Take 1 tablet by mouth daily with dinner. 30 tablet 1 10/08/2021 Active metoclopramide 10 mg oral tablet (20 sources) Dopamine-2 Receptor Antagonist Start: 11-19-2024 End: 11-27-2024 take 1 tablet by mouth every six hours as needed for nausea metoclopramide (REGLAN) 10 MG tablet Take 1 Tablet by mouth every 6 hours as needed for Nausea. 20 Tablet 11/27/2024 Active Start: 11-15-2024 End: 11-19-2024 take 10 mg intravenously every six hours as needed for headache 10 mg, Intravenous Push, EVERY 6 HOURS PRN, Starting on Mon11/15/24 at 0531, Until Mon11/19/24 at 0922, headache, second line nausea 60 actuat mometasone furoate 0.22 mg/actuat dry powder inhaler (2 sources) Corticosteroid Start: 05-23-2018 take 1 puff(s) by inhalation once daily mometasone (ASMANEX) 220 mcg (60 doses) aepb Inhale 1 Puff as instructed once daily. 0 05/23/2018 Active predniSONE 20 mg oral tablet (2 sources) Start: 10-06-2020 take 3 tablets by mouth once daily predniSONE (DELTASONE) 20 mg tablet 3 tabs a day by mouth for the next 5 days 15 tablet 0 10/06/2020 Active pyridoxine hydrochloride 25 mg oral tablet (2 sources) Start: 10-15-2018 take 1 tablet by mouth once daily at bedtime pyridoxine, vitamin B6, (VITAMIN B6) 25 mg tablet Indications: Nausea without vomiting Take 1 tablet by mouth daily at bedtime. 30 tablet 0 10/15/2018 Active raNITIdine 150 mg oral tablet (2 sources) Histamine-2 Receptor Antagonist Start: 02-21-2019 take 1 tablet by mouth twice daily ranitidine (ZANTAC) 150 mg tablet Indications: LUQ discomfort Take 1 tablet by mouth twice daily. 60 tablet 1 02/21/2019 Active SUMAtriptan 50 mg oral tablet (2 sources) Serotonin-1b and Serotonin-1d Receptor Agonist Start: 05-23-2018 SUMAtriptan (IMITREX) 50 mg tablet Take 50 mg by mouth as needed. 0 05/23/2018 Active triamcinolone acetonide 0.055 mg/actuat metered dose nasal spray (2 sources) Corticosteroid Start: 12-23-2017 triamcinolone acetonide (NASACORT AQ) 55 mcg nasal inhaler Use 1 [place] in the nose as needed. 0 12/23/2017 Active Completed/Discontinued Medications Medication Drug Class(es) Dates Sig (Normalized) Sig (Original) acetaminophen 325 mg / HYDROcodone bitartrate 5 mg oral tablet (10 sources) Opioid Agonist Start: 09-14-2018 End: 09-16-2018 take 1 tablet by mouth every four hours as needed Hydrocodone-Acetami nophen Discontinued 1 TABLET PO EVERY 4 HOURS NEEDED 15 2 September 14, 2018 4:28pm September 16, 2018 1:15am Start: 09-14-2018 End: 09-16-2018 Hydrocodone-Acetaminophen 1 TABLET tablet Discontinued 1 {tbl} PO EVERY 4 HOURS NEEDED as needed for Pain 15 2 0 September 14, 2018 1:00am September 15, 2018 1:00am September 16, 2018 1:15am Abdominal pain Unspecified abdominal pain [id number] 200 actuat albuterol 0.09 mg/actuat metered dose inhaler (20 sources) beta2-Adrenergic Agonist Start: 03-28-2025 End: 06-17-2025 Albuterol Sulfate (Ventolin Hfa) 90 mcg/actuation HFA aerosol inhaler Discontinued 1 - 2 NMA INHALATION EVERY 4 HOURS NEEDED as needed for Wheezing 8.5 0 April 08, 2025 2:17pm June 17, 2025 3:11pm Start: 10-07-2021 take 2 puff(s) by in halation every four hours as needed for wheezing albuterol HFA (VENTOLIN HFA) 90 mcg/actuation inhaler Inhale 2 Puffs as instructed every 4 hours as needed for wheezing/shortness of breath. 1 Each 5 10/07/2021 Active Start: 03-31-2018 take 2.5 mg by inhal ation every four hours as needed albuterol (PROVENTIL) 2.5 mg /3 mL (0.083 %) nebulizer solution Use 2.5 mg via nebulizer every 4 hours as needed. 0 03/31/2018 Active amoxicillin 875 mg / clavulanate 125 mg oral tablet (3 sources) Penicillin-class Antibacterial Start: 11-17-2024 End: 11-26-2024 take 1 tablet by mouth twice daily in the morning amoxicillin-clavulanate (AUGMENTIN) 875-125 MG per tablet Take 1 Tablet by mouth 2 times daily for 16 doses. 16 Tablet 11/18/2024 8:57 AM EST 11/17/2024 11/26/2024 bacitracin 0.5 unt/mg topical ointment (1 source) Start: 11-15-2024 End: 11-19-2024 Topical, DAILY PRN, Starting on Mon11/15/24 at 1736, Until Mon11/19/24 at 2051, Apply to catheter site with dressing change onabotulinumtoxina 100 unt injection (10 sources) Acetylcholine Release Inhibitor Start: 09-03-2020 End: 02-09-2021 inject 100 [IU] by intramuscular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 History of with abortive outcome; Translations: [Supervision of with other poor reproductive or obstetric history, first trimester] Onset: 8 Resolved: 8 10-29-2018 Episodic Other complications of (2 sources) History of gestational diabetes mellitus; Translations: [Supervision of with other poor reproductive or obstetric history, unspecified trimester] Onset: 8 Resolved: 8 10-29-2018 Episodic Other complications of (2 sources) History of delivery of macrosomal ; Translations: [Supervision of with other poor reproductive or obstetric history, unspecified trimester] Onset: 8 Resolved: 8 10-29-2018 Episodic Other complications of (2 sources) History of shoulder dystocia; Translations: [Supervision of with other poor reproductive or obstetric history, first trimester] Onset: 8 Resolved: 8 10-29-2018 Episodic Other complications of (2 sources) History of hemorrhage; Translations: [Supervision of with other poor reproductive or obstetric history, unspecified trimester] Onset: 8 Resolved: 8 10-29-2018 Episodic Other complications of (2 sources) High risk ; Translations: [Supervision of high risk , unspecified, first trimester] Onset: 8 Resolved: 8 10-29-2018 Episodic Other complications of (1 source) Supervision of with insufficient care, third trimester; Translations: [Supervision of with insufficient care, third trimester] Onset: 5 Episodic Other ear and sense organ disorders (2 sources) Otorrhagia, left ear; Translations: [Otorrhagia, left ear] Onset: 8 Episodic Other eye disorders (2 sources) Ocular pain, bilateral; Translations: [Ocular pain, bilateral] Onset: 8 Episodic Other eye disorders (2 sources) Corneal disorder due to contact lens, bilateral; Translations: [Corneal disorder due to contact lens, bilateral] Onset: 8 Episodic Other hematologic conditions (2 sources) Personal history of diseases of the blood and blood-forming organs and certain disorders involving the immune mechanism; Translations: [Prsnl history of dis of the bld/bld-form org/immun mechnsm] Onset: 8 Episodic Other injuries and conditions due to external causes (2 sources) Unspecified injury of right wrist, hand and finger(s), initial encounter; Translations: [Unsp injury of right wrist, hand and finger(s), init encntr] Onset: 8 Episodic Other lower respiratory disease (2 sources) Dyspnea, unspecified; Translations: [Dyspnea, unspecified] Onset: 8 Episodic Other lower respiratory disease (2 sources) Shortness of breath; Translations: [Shortness of breath] Onset: 8 Episodic Other lower respiratory disease (2 sources) Cough; Translations: [Cough] Onset: 8 Episodic Other and delivery including normal (11 sources) ; Translations: [Encounter for supervision of normal , unspecified, unspecified trimester] Onset: 5 11-06-2024 Episodic Other upper respiratory infections (2 sources) Acute upper respiratory infection, unspecified; Translations: [Acute upper respiratory infection, unspecified] Onset: 8 Episodic Peritonitis and intestinal abscess (20 sources) Peritoneal abscess; Translations: [Abscess of peritoneum] Onset: 5 11-20-2024 Episodic Residual codes; unclassified (2 sources) Acquired absence of other organs; Translations: [Acquired absence of other organs] Onset: 8 Episodic Residual codes; unclassified (2 sources) Family history of ischemic heart disease and other diseases of the circulatory system; Translations: [Family hx of ischem heart dis and oth dis of the [facility]] Onset: 8 Episodic Residual codes; unclassified (2 sources) FH: Congenital anomaly; Translations: [Family history of other congenital malformations, deformations and chromosomal abnormalities] Onset: 3 Resolved: 5 10-25-2021 Episodic Screening and history of mental health and substance abuse codes (2 sources) H/O: manic depressive disorder; Translations: [Personal history of other mental and behavioral disorders] Onset: 8 10-15-2018 Episodic Spondylosis; intervertebral disc disorders; other back problems (2 sources) Low back pain; Translations: [Lumbago] Onset: 9 09-13-2018 Episodic Results Test Name Value Interpretation Reference Range Facility [facility] 8623on OP Normal [facility] Comment on above: Performed By: #### M 100.6796, L7000.0750, M600.5000, M100.637 ####[facility] [address] [place], [address] Internal Medicine Office Vis iton 06-20-2025 Internal Medicine Office Visit Normal [facility] Absolute lymphocyte countOrd ered By: Elaine Jones on 06-13-2025 Lymphocytes Auto (Unsp spec) [#/Vol] 2.41 10*3/uL 0.83-4.51 [facility] Absolute neutrophil countOrd ered By: Elaine Jones on 06-13-2025 Neutrophils (Bld) [#/Vol] 3.6 10*3/uL 2.0-7.7 [facility] Activated partial thrombopla stin time (aPTT) in platelet poor plasma by coagulation aOrdered By: Elaine Jones on 06-13-2025 aPTT Coag (PPP) [Time] 24.8 s 24.1-36.2 [facility] Anion gap in Serum or Plasma Ordered By: Elaine Jones on 06-13-2025 Anion gap [Moles/Vol] 14 mmol/L 03-13 [facility] Automated lymphocyte count a s percentage of total leukocytesOrdered By: Elaine Jones on 06-13-2025 Lymphocytes/100 WBC Auto (Unsp spec) 36.7 % - [facility] BUN/creatinine ratioOrdered By: Elaine Jones on 06-13-2025 Urea nitrogen/Creatinine [Mass ratio] 11.4 mg/mg - [facility] Basophil percentageOrdered B y: Elaine Jones on 06-13-2025 Basophils/100 WBC (Bld) 0.5 % 0- [facility] Bilirubin, totalOrdered By: Elaine Jones on 06-13-2025 Bilirubin [Mass/Vol] 0.51 mg/dL 0.00-1.[address] [facility] CBC W/Diff, Automatedon 05-30 Absolute Lymph 2.41 X10 3/uL Normal 0.83-4.51 [facility] Comment on above: Performed By: #### L 501.9985, L300.3900, L300.4310, L501.9520, L500.4050, L100.0100 ####[facility] [address] [place], [address] Absolute Neut 3.6 X10 3/uL Normal 2.0-7.7 [facility] Comment on above: Performed By: #### L 501.9985, L300.3900, L300.4310, L501.9520, L500.4050, L100.0100 ####[facility] [address] [place], [address] Basophils/100 WBC (Bld) 0.5 % Normal 0-1 [facility] Comment on above: Performed By: #### L 501.9985, L300.3900, L300.4310, L501.9520, L500.4050, L100.0100 ####[facility] [address] [place], [address] Eosinophils/100 WBC (Bld) 1.4 % Normal 0-5 [facility] Comment on above: Performed By: #### L 501.9985, L300.3900, L300.4310, L501.9520, L500.4050, L100.0100 ####[facility] [address] [place], [address] Erythrocyte distribution width (RBC) [Ratio] 15.4 % High 11.6-14.6 [facility] Comment on above: Performed By: #### L 501.9985, L300.3900, L300.4310, L501.9520, L500.4050, L100.0100 ####[facility] [address] [place], [address] Hematocrit (Bld) [Volume fraction] 39.0 % Normal 37-47 [facility] Comment on above: Performed By: #### L 501.9985, L300.3900, L300.4310, L501.9520, L500.4050, L100.0100 ####[facility] [address] [place], [address] Hemoglobin (Bld) [Mass/Vol] 12.7 g/dL Normal 12.0-15.0 [facility] Comment on above: Performed By: #### L 501.9985, L300.3900, L300.4310, L501.9520, L500.4050, L100.0100 ####[facility] [address] [place], [address] IG% 0.300 Normal 0.0-0.9 [facility] Comment on above: Result Comment: IG% - Immature Granulocytes (promyelocytes, myelocytes andmetamyelocytes) > 1% indicates that a LEFT SHIFT is Present. Performed By: #### L 501.9985, L300.3900, L300.4310, L501.9520, L500.4050, L100.0100 ####[facility] [address] [place], [address] Lymphocytes/100 WBC (Bld) 36.7 % Normal 19-41 [facility] Comment on above: Performed By: #### L 501.9985, L300.3900, L300.4310, L501.9520, L500.4050, L100.0100 ####[facility] [address] [place], [address] MCH (RBC) [Entitic mass] 24.5 pg Low 27.0-32.0 [facility] Comment on above: Performed By: #### L 501.9985, L300.3900, L300.4310, L501.9520, L500.4050, L100.0100 ####[facility] [address] [place], [address] MCHC (RBC) [Mass/Vol] 32.6 g/dL Normal 32-36 [facility] Comment on above: Performed By: #### L 501.9985, L300.3900, L300.4310, L501.9520, L500.4050, L100.0100 ####[facility] [address] [place], [address] MCV (RBC) [Entitic vol] 75.1 fL Low 81-99 [facility] Comment on above: Performed By: #### L 501.9985, L300.3900, L300.4310, L501.9520, L500.4050, L100.0100 ####[facility] [address] [place], [address] Monocytes/100 WBC (Bld) 6.8 % Normal 0-10 [facility] Comment on above: Performed By: #### L 501.9985, L300.3900, L300.4310, L501.9520, L500.4050, L100.0100 ####[facility] [address] [place], [address] Neutrophils/100 WBC (Bld) 54.3 % Normal 47-70 [facility] Comment on above: Performed By: #### L 501.9985, L300.3900, L300.4310, L501.9520, L500.4050, L100.0100 ####[facility] [address] [place], [address] Nucleated RBC (Bld) [#/Vol] 0 10*3/uL Normal 0-5 [facility] Comment on above: Performed By: #### L 501.9985, L300.3900, L300.4310, L501.9520, L500.4050, L100.0100 ####[facility] [address] [place], [address] Platelet mean volume (Bld) [Entitic vol] 9.3 fL Normal 6.2-12.0 [facility] Comment on above: Performed By: #### L 501.9985, L300.3900, L300.4310, L501.9520, L500.4050, L100.0100 ####[facility] [address] [place], [address] Platelets (Bld) [#/Vol] 271 10*3/uL Normal 150-450 [facility] Comment on above: Performed By: #### L 501.9985, L300.3900, L300.4310, L501.9520, L500.4050, L100.0100 ####[facility] [address] [place], [address] RBC (Bld) [#/Vol] 5.19 10*6/uL Normal 4.2-5.4 [facility] Comment on above: Performed By: #### L 501.9985, L300.3900, L300.4310, L501.9520, L500.4050, L100.0100 ####[facility] [address] [place], [address] RDW SD 41.7 fl Normal 35.1-43.9 [facility] Comment on above: Performed By: #### L 501.9985, L300.3900, L300.4310, L501.9520, L500.4050, L100.0100 ####[facility] [address] [place], [address] WBC (Bld) [#/Vol] 6.6 10*3/uL Normal 4.4-11.0 [facility] Comment on above: Performed By: #### L 501.9985, L300.3900, L300.4310, L501.9520, L500.4050, L100.0100 ####[facility] [address] [place], [address] Carbon dioxide, total [Moles /volume] in Central venous bloodOrdered By: Elaine Jones on 06-13-2025 CO2 [Moles/Vol] 23.1 mmol/L 21.0-32.0 [facility] Chloride assayOrdered By: Keagan Jones on 06-13-2025 Chloride [Moles/Vol] 98 mmol/L 98-[address] [facility] Comprehensive Metabolic Prof ilon 06-13-2025 Albumin [Mass/Vol] 4.5 g/dL Normal 3.5-5.0 [facility] Comment on above: Performed By: #### L 501.9985, L300.3900, L300.4310, L501.9520, L500.4050, L100.0100 ####[facility] [address] [place], [address] Albumin/Globulin [Mass ratio] 1.4 {ratio} Normal 0.9-2.4 [facility] Comment on above: Performed By: #### L 501.9985, L300.3900, L300.4310, L501.9520, L500.4050, L100.0100 ####[facility] [address] [place], [address] ALK PHOS 121 U/L High 35-104 [facility] Comment on above: Performed By: #### L 501.9985, L300.3900, L300.4310, L501.9520, L500.4050, L100.0100 ####[facility] [address] [place], [address] ALT [Catalytic activity/Vol] 22 U/L Normal <=34 [facility] Comment on above: Performed By: #### L 501.9985, L300.3900, L300.4310, L501.9520, L500.4050, L100.0100 ####[facility] [address] [place], [address] AST [Catalytic activity/Vol] 15 U/L Normal <=31 [facility] Comment on above: Performed By: #### L 501.9985, L300.3900, L300.4310, L501.9520, L500.4050, L100.0100 ####[facility] [address] [place], [address] Bilirubin [Mass/Vol] 0.51 mg/dL Normal 0.00-1.[address] [facility] Comment on above: Performed By: #### L 501.9985, L300.3900, L300.4310, L501.9520, L500.4050, L100.0100 ####[facility] [address] [place], [address] BUN/CRE 11.4 RATIO Normal 10-20 [facility] Comment on above: Performed By: #### L 501.9985, L300.3900, L300.4310, L501.9520, L500.4050, L100.0100 ####[facility] [address] [place], [address] Calcium [Mass/Vol] 9.6 mg/dL Normal 7.6-11.0 [facility] Comment on above: Performed By: #### L 501.9985, L300.3900, L300.4310, L501.9520, L500.4050, L100.0100 ####[facility] [address] [place], [address] Chloride [Moles/Vol] 98 mmol/L Normal 98-[address] [facility] Comment on above: Performed By: #### L 501.9985, L300.3900, L300.4310, L501.9520, L500.4050, L100.0100 ####[facility] [address] [place], [address] CO2 [Moles/Vol] 23.1 mmol/L Normal 21.0-32.0 [facility] Comment on above: Performed By: #### L 501.9985, L300.3900, L300.4310, L501.9520, L500.4050, L100.0100 ####[facility] [address] [place], [address] Creatinine [Mass/Vol] 0.78 mg/dL Normal 0.70-1.20 [facility] Comment on above: Performed By: #### L 501.9985, L300.3900, L300.4310, L501.9520, L500.4050, L100.0100 ####[facility] [address] [place], [address] GAP 14 Normal 5-15 [facility] Comment on above: Performed By: #### L 501.9985, L300.3900, L300.4310, L501.9520, L500.4050, L100.0100 ####[facility] [address] [place], [address] GFR/1.73 sq M.predicted among non-blacks MDRD (S/P/Bld) [Vol rate/Area] 104 mL/min/{1.73_m2} Normal >60 [facility] Comment on above: Result Comment: mL/m in/1.73m2 CKD-EPI Creatinine Equation (2020) Performed By: #### L 501.9985, L300.3900, L300.4310, L501.9520, L500.4050, L100.0100 ####[facility] [address] [place], [address] Globulin (S) [Mass/Vol] 3.3 g/dL Normal 2.2-4.2 [facility] Comment on above: Performed By: #### L 501.9985, L300.3900, L300.4310, L501.9520, L500.4050, L100.0100 ####[facility] [address] [place], [address] Glucose [Mass/Vol] 308 mg/dL High 70-99 [facility] Comment on above: Performed By: #### L 501.9985, L300.3900, L300.4310, L501.9520, L500.4050, L100.0100 ####[facility] [address] [place], [address] Potassium [Moles/Vol] 4.0 mmol/L Normal 3.3-5.1 [facility] Comment on above: Performed By: #### L 501.9985, L300.3900, L300.4310, L501.9520, L500.4050, L100.0100 ####[facility] [address] [place], [address] Sodium [Moles/Vol] 135 mmol/L Normal 133-145 [facility] Comment on above: Performed By: #### L 501.9985, L300.3900, L300.4310, L501.9520, L500.4050, L100.0100 ####[facility] [address] [place], [address] T PROT 7.8 g/dL Normal 5.9-8.4 [facility] Comment on above: Performed By: #### L 501.9985, L300.3900, L300.4310, L501.9520, L500.4050, L100.0100 ####[facility] [address] [place], [address] Urea nitrogen [Mass/Vol] 9 mg/dL Normal 4-19 [facility] Comment on above: Performed By: #### L 501.9985, L300.3900, L300.4310, L501.9520, L500.4050, L100.0100 ####[facility] [address] [place], [address] Eosinophil percentageOrdered By: Elaine Jones on 06-13-2025 Eosinophils/100 WBC (Bld) 1.4 % 0-5 [facility] Erythrocyte distribution wid th ratioOrdered By: Elaine Jones on 06-13-2025 Erythrocyte distribution width (RBC) [Ratio] 15.4 % High 11.6-14.6 [facility] Erythrocyte distribution wid th standard deviationOrdered By: Elaine Jones on 06-13-2025 Erythrocyte distribution width (RBC) [Ratio] 41.7 fl 35.1-43.9 [facility] Glomerular filtration rate ( GFR) estimation/1.73 sq m using serum, plasma, or whole bOrdered By: Elaine Jonse on 06-13-2025 GFR/1.73 sq M.predicted among non-blacks MDRD (S/P/Bld) [Vol rate/Area] 104 mL/min/{1.73_m2} >60 [facility] Comment on above: mL/min/1.73m2 CKD-EP I Creatinine Equation (2020) Hematocrit Auto (Bld) [Volum e fraction]Ordered By: Elaine Jones on 06-13-2025 Hematocrit (Bld) [Volume fraction] 39.0 % 37-47 [facility] Hemoglobin A1con 06-13-2025 HbA1c (Bld) [Mass fraction] 9.9 % High <=5.6 [facility] Comment on above: Result Comment: Norm al < 5.7 % Prediabetic 5.7 - 6.4 % Diabetic >or= 6.5 % Please note range changes. Performed By: #### L 501.9985, L300.3900, L300.4310, L501.9520, L500.4050, L100.0100 ####[facility] [address] [place], [address] Hemoglobin A1c percentageOrd ered By: Elaine Jones on 06-13-2025 HbA1c (Bld) [Mass fraction] 9.9 % High <5.7 [facility] Comment on above: Normal < 5.7 % Predi abetic 5.7 - 6.4 % Diabetic >or= 6.5 % Please note range changes. Hemoglobin measurementOrdere d By: Elaine Jones on 06-13-2025 Hemoglobin (Bld) [Mass/Vol] 12.7 g/dL 12.0-15.0 [facility] Immature granulocytes/100 WB C Auto (Bld)Ordered By: Elaine Jones on 06-13-2025 Immature granulocytes/100 WBC (Bld) 0.300 % 0.0-0.9 [facility] Comment on above: IG% - Immature Granu locytes (promyelocytes, myelocytes and metamyelocytes) > 1% indicates that a LEFT SHIFT is Present. International normalized rat io (INR) calculationOrdered By: Elaine Jones on 06-13-2025 INR Coag (Bld) [Relative time] 0.9 {INR} [facility] Laboratory - Chemistry and C hemistry - challengeOrdered By: Elaine Jones on 06-13-2025 AST [Catalytic activity/Vol] 15 U/L <32 [facility] MCV (mean corpuscular volume ) determinationOrdered By: Elaine Jones on 06-13-2025 MCV (RBC) [Entitic vol] 75.1 fL Low 81-99 [facility] Mean corpuscular hemoglobin (MCH) determinationOrdered By: Elaine Jones on 06-13-2025 MCH (RBC) [Entitic mass] 24.5 pg Low 27.0-32.0 [facility] Mean corpuscular hemoglobin concentration (MCHC) determinationOrdered By: Elaine Jones on 06-13-2025 MCHC (RBC) [Mass/Vol] 32.6 g/dL 32-36 [facility] Mean platelet volume determi nationOrdered By: Elaine Jones on 06-13-2025 Platelet mean volume (Bld) [Entitic vol] 9.3 fL 6.2-12.0 [facility] Monocyte percentageOrdered B y: Elaine Jones on 06-13-2025 Monocytes/100 WBC (Bld) 6.8 % 0-10 [facility] Neutrophil percentageOrdered By: Elaine Jones on 06-13-2025 Neutrophils/100 WBC (Bld) 54.3 % 47-70 [facility] Nucleated red blood cell per centageOrdered By: Elaine Jones on 06-13-2025 Nucleated RBC/100 WBC (Bld) [Ratio] 0 % 0-5 [facility] Aboriginal Liaison Officer Office Visit Reporton 06-13-2025 Aboriginal Liaison Officer Office Visit Report Normal [facility] Partial Thromboplast Timeon 06-13-2025 aPTT Coag (Bld) [Time] 24.8 s Normal 24.1-36.2 [facility] Comment on above: Performed By: #### L 501.9985, L300.3900, L300.4310, L501.9520, L500.4050, L100.0100 ####[facility] [address] [place], [address] Platelet countOrdered By: Kegaan Jones on 06-13-2025 Platelets (Bld) [#/Vol] 271 10*3/uL 150-450 [facility] Potassium measurement (mass/ volume)Ordered By: Elaine Jones on 06-13-2025 Potassium (Unsp spec) [Mass/Vol] 4.0 mmol/L 3.3-5.1 [facility] Prothrombin Time w/INRon INR Coag (PPP) [Relative time] 0.9 {INR} Normal [facility] Comment on above: Performed By: #### L 501.9985, L300.3900, L300.4310, L501.9520, L500.4050, L100.0100 ####[facility] [address] [place], [address] PT Coag (PPP) [Time] 12.5 s Normal 11.7-14.[address] [facility] Comment on above: Performed By: #### L 501.9985, L300.3900, L300.4310, L501.9520, L500.4050, L100.0100 ####[facility] [address] [place], [address] Prothrombin timeOrdered By: Elaine Jones on 06-13-2025 PT Coag (PPP) [Time] 12.5 s 11.7-14.[address] [facility] RBC Auto (Bld) [#/Vol]Ordere d By: Elaine Jones on 06-13-2025 RBC (Bld) [#/Vol] 5.19 10*6/uL 4.2-5.4 [facility] Serum creatinine measurement (mass/volume)Ordered By: Elaine Jones on 06-13-2025 Creatinine [Mass/Vol] 0.78 mg/dL 0.70-1.20 [facility] Serum globulin measurementOr dered By: Elaine Jones on 06-13-2025 Globulin (S) [Mass/Vol] 3.3 g/dL 2.2-4.2 [facility] Serum glucose measurement (m ass/volume)Ordered By: Elaine Jones on 06-13-2025 Glucose [Mass/Vol] 308 mg/dL High 70-99 [facility] Serum or plasma alanine kang otransferase (ALT) measurementOrdered By: Elaine Jones on 06-13-2025 ALT [Catalytic activity/Vol] 22 U/L <35 [facility] Serum or plasma albumin nabil urement (mass/volume)Ordered By: Elaine Jones on 06-13-2025 Albumin [Mass/Vol] 4.5 g/dL 3.5-5.0 [facility] Serum or plasma albumin/glob ulin mass ratioOrdered By: Elaine Jones on 06-13-2025 Albumin/Globulin [Mass ratio] 1.4 {ratio} 0.9-2.4 [facility] Serum or plasma alkaline jesús sphatase measurementOrdered By: Elaine Jones on 06-13-2025 ALP [Catalytic activity/Vol] 121 U/L High 35-104 [facility] Serum or plasma calcium nabil urement (mass/volume)Ordered By: Elaine Jones on 06-13-2025 Calcium [Mass/Vol] 9.6 mg/dL 7.6-11.0 [facility] Serum or plasma urea nitroge n measurement (mass/volume)Ordered By: Elaine Jones on 06-13-2025 Urea nitrogen [Mass/Vol] 9 mg/dL 4-19 [facility] Sodium levelOrdered By: Rajiv hussein Karen on 06-13-2025 Sodium [Moles/Vol] 135 mmol/L 133-145 [facility] TSH DL <= 0.005 mIU/L QnOrde red By: Elaine Jones on 06-13-2025 TSH Qn 1.040 uIU/mL 0.300-4.200 [facility] Thyroid Stim Hormone (TSH)on 06-13-2025 TSH 1.040 uIU/mL Normal 0.300-4.200 [facility] Comment on above: Performed By: #### L 501.9985, L300.3900, L300.4310, L501.9520, L500.4050, L100.0100 ####[facility] [address] [place], [address] Total proteinOrdered By: Walter Jones on 06-13-2025 Protein [Mass/Vol] 7.8 g/dL 5.9-8.4 [facility] White blood cell (WBC) count Ordered By: Elaine Jones on 06-13-2025 WBC (Bld) [#/Vol] 6.6 10*3/uL 4.4-11.0 [facility] L3410.9992on 06-05-2025 [facility] Misc. COMMENT Normal . [facility] Comment on above: Order Comment: [id number] 2Hair drug screen 9 Panel Result Comment: Test Ordered: [id number] Hair Drug Screen 9 PanelAmphetamines Negative pg/mg 0S Reference Range: 500Barbiturates Negative pg/mg 0S Reference Range: 200Benzodiazepines Negative pg/mg 0S Reference Range: 200Cocaine Negative pg/mg 0S Reference Range: 500Methadone Negative pg/mg 0S Reference Range: 200Opiates Negative pg/mg 0S Reference Range: 200PCP Negative pg/mg 0S Reference Range: 300Propoxyphene Negative pg/mg 0S Reference Range: 200Cannabinoids Negative pg/mg 0S Reference Range: 1Not SpecifiedAll screen methods are immunoassay unless otherwise noted.Test developed and characteristics determined by [facility]. See Compliance Statementon our website [email or web address].Certified by: MNHUMBERTOCIKPerformed at: 0S - [facility] [id number] [place], [place] [id number] Director: Tami Stover PhD, Phone: [phone] at: [address] [id number] Director: Donell Nieto PhD, Phone: [phone] Performed By: #### L 3410.9992 ####[facility] [address] [place], [place], [address] Abdomen Limitedon 05-09-[address] [facility] L7000.0750on 04-28-2025 P ELASTASE,FECA 427 Normal >200 [facility] Comment on above: Result Comment: Resu lt Units: ug Elast./g Severe Pancreatic Insufficiency: <100 Moderate Pancreatic Insufficiency: 100 - 200 Normal: >200Performed at: [address] [id number] Director: Cinthya Downs MD, Phone: [phone] Performed By: #### M 100.6796, L7000.0750, M600.5000, M100.637 ####[facility] [address] [place], [address] CDIFF (PCR)on 04-24-[address] [facility] Comment on above: Performed By: #### M 100.6796, L7000.0750, M600.5000, M100.637 ####[facility] [address] [place], [address] Clostridium difficile detect ion by polymerase chain reactionOrdered By: La Basurto on 04-24-2025 C. difficile DNA SAE+probe Ql (Unsp spec) [facility] ENTERIC PATHOGEN PANEL STOOL on 04-24-[address] [facility] Comment on above: Performed By: #### M 100.6796, L7000.0750, M600.5000, M100.637 ####[facility] [address] [place], [address] Stool pancreatic elastase me asurement (mass/mass)Ordered By: La Basurto on 04-24-2025 Elastase.pancreatic (Stl) [Mass/Mass] [address] [facility] Comment on above: Result Units: ug Karyn st./g Severe Pancreatic Insufficiency: <100 Moderate Pancreatic Insufficiency: 100 - 200 Normal: >200Performed at: [facility] Lab[address] [id number] Director: Cinthya Downs MD, Phone: [phone] Gastroenterology Visit Repor ton 04-17-2025 Gastroenterology Visit Report Normal [facility] Laboratory - Chemistry and C hemistry - challengeOrdered By: Elaine Jones on 03-31-2025 HCG ( test) Ql (U) Negative [facility] Aboriginal Liaison Officer Office Visit Reporton 03-31-2025 Aboriginal Liaison Officer Office Visit Report Normal [facility] Internal Medicine Office Vis iton 03-28-2025 Internal Medicine Office Visit Normal [facility] Internal Medicine Office Vis iton 03-07-2025 Internal Medicine Office Visit Normal [facility] Absolute lymphocyte countOrd ered By: Renetta Queen on 02-28-2025 Lymphocytes Auto (Unsp spec) [#/Vol] 2.75 10*3/uL 0.83-4.51 [facility] Absolute neutrophil countOrd ered By: Renetta Queen on 02-28-2025 Neutrophils (Bld) [#/Vol] 5.1 10*3/uL 2.0-7.7 [facility] Automated lymphocyte count a s percentage of total leukocytesOrdered By: Renetta Queen on 02-28-2025 Lymphocytes/100 WBC Auto (Unsp spec) 32.2 % 19-41 [facility] Basophil percentageOrdered B y: Renetta Queen on 02-28-2025 Basophils/100 WBC (Bld) 0.5 % 0-1 [facility] CBC W/Diff, Automatedon 05-0 -2024 Absolute Lymph 2.75 X10 3/uL Normal 0.83-4.51 [facility] Comment on above: Performed By: #### L 100.0100 ####[facility] [address] [place], [address] Absolute Neut 5.1 X10 3/uL Normal 2.0-7.7 [facility] Comment on above: Performed By: #### L 100.0100 ####[facility] [address] [place], [address] Basophils/100 WBC (Bld) 0.5 % Normal 0-1 [facility] Comment on above: Performed By: #### L 100.0100 ####[facility] [address] [place], [address] Eosinophils/100 WBC (Bld) 1.2 % Normal 0-5 [facility] Comment on above: Performed By: #### L 100.0100 ####[facility] [address] [place], [address] Erythrocyte distribution width (RBC) [Ratio] 13.7 % Normal 11.6-14.6 [facility] Comment on above: Performed By: #### L 100.0100 ####[facility] [address] [place], [address] Hematocrit (Bld) [Volume fraction] 36.2 % Low 37-47 [facility] Comment on above: Performed By: #### L 100.0100 ####[facility] [address] [place], [address] Hemoglobin (Bld) [Mass/Vol] 11.8 g/dL Low 12.0-15.0 [facility] Comment on above: Performed By: #### L 100.0100 ####[facility] [address] [place], [address] IG% 0.500 Normal 0.0-0.9 [facility] Comment on above: Result Comment: IG% - Immature Granulocytes (promyelocytes, myelocytes andmetamyelocytes) > 1% indicates that a LEFT SHIFT is Present. Performed By: #### L 100.0100 ####[facility] [address] [place], [address] Lymphocytes/100 WBC (Bld) 32.2 % Normal 19-41 [facility] Comment on above: Performed By: #### L 100.0100 ####[facility] [address] [place], [address] MCH (RBC) [Entitic mass] 24.6 pg Low 27.0-32.0 [facility] Comment on above: Performed By: #### L 100.0100 ####[facility] [address] [place], [address] MCHC (RBC) [Mass/Vol] 32.6 g/dL Normal 32-36 [facility] Comment on above: Performed By: #### L 100.0100 ####[facility] [address] [place], [address] MCV (RBC) [Entitic vol] 75.4 fL Low 81-99 [facility] Comment on above: Performed By: #### L 100.0100 ####[facility] [address] [place], [address] Monocytes/100 WBC (Bld) 5.7 % Normal 0-10 [facility] Comment on above: Performed By: #### L 100.0100 ####[facility] [address] [place], [address] Neutrophils/100 WBC (Bld) 59.9 % Normal 47-70 [facility] Comment on above: Performed By: #### L 100.0100 ####[facility] [address] [place], [address] Nucleated RBC (Bld) [#/Vol] 0 10*3/uL Normal 0-5 [facility] Comment on above: Performed By: #### L 100.0100 ####[facility] [address] [place], [address] Platelet mean volume (Bld) [Entitic vol] 8.7 fL Normal 6.2-12.0 [facility] Comment on above: Performed By: #### L 100.0100 ####[facility] [address] [place], [address] Platelets (Bld) [#/Vol] 333 10*3/uL Normal 150-450 [facility] Comment on above: Performed By: #### L 100.0100 ####[facility] [address] [place], [address] RBC (Bld) [#/Vol] 4.80 10*6/uL Normal 4.2-5.4 [facility] Comment on above: Performed By: #### L 100.0100 ####[facility] [address] [place], [address] RDW SD 37.0 fl Normal 35.1-43.9 [facility] Comment on above: Performed By: #### L 100.0100 ####[facility] [address] [place], [address] WBC (Bld) [#/Vol] 8.5 10*3/uL Normal 4.4-11.0 [facility] Comment on above: Performed By: #### L 100.0100 ####[facility] [address] [place], [address] Emergency Department Summary on 02-28-2025 Emergency Department Summary Normal [facility] Eosinophil percentageOrdered By: Renetta Queen on 02-28-2025 Eosinophils/100 WBC (Bld) 1.2 % 0-5 [facility] Erythrocyte distribution wid th ratioOrdered By: Renetta Queen on 02-28-2025 Erythrocyte distribution width (RBC) [Ratio] 13.7 % 11.6-14.6 [facility] Erythrocyte distribution wid th standard deviationOrdered By: Renetta Queen on 02-28-2025 Erythrocyte distribution width (RBC) [Ratio] 37.0 fl 35.1-43.9 [facility] Hematocrit Auto (Bld) [Volum e fraction]Ordered By: Renetta Queen on 02-28-2025 Hematocrit (Bld) [Volume fraction] 36.2 % Low 37-47 [facility] Hemoglobin measurementOrdere d By: Renetta Queen on 02-28-2025 Hemoglobin (Bld) [Mass/Vol] 11.8 g/dL Low 12.0-15.0 [facility] Immature granulocytes/100 WB C Auto (Bld)Ordered By: Renetta Queen on 02-28-2025 Immature granulocytes/100 WBC (Bld) 0.500 % 0.0-0.9 [facility] Comment on above: IG% - Immature Granu locytes (promyelocytes, myelocytes and metamyelocytes) > 1% indicates that a LEFT SHIFT is Present. MCV (mean corpuscular volume ) determinationOrdered By: Renetta Queen on 02-28-2025 MCV (RBC) [Entitic vol] 75.4 fL Low 81-99 [facility] Mean corpuscular hemoglobin (MCH) determinationOrdered By: Renetta Queen on 02-28-2025 MCH (RBC) [Entitic mass] 24.6 pg Low 27.0-32.0 [facility] Mean corpuscular hemoglobin concentration (MCHC) determinationOrdered By: Renetta Queen on 02-28-2025 MCHC (RBC) [Mass/Vol] 32.6 g/dL 32-36 [facility] Mean platelet volume determi nationOrdered By: Renetta Queen on 02-28-2025 Platelet mean volume (Bld) [Entitic vol] 8.7 fL 6.2-12.0 [facility] Monocyte percentageOrdered B y: Renetta Queen on 02-28-2025 Monocytes/100 WBC (Bld) 5.7 % 0-10 [facility] Neutrophil percentageOrdered By: Renetta Queen on 02-28-2025 Neutrophils/100 WBC (Bld) 59.9 % 47-70 [facility] Nucleated red blood cell per centageOrdered By: Renetta Queen on 02-28-2025 Nucleated RBC/100 WBC (Bld) [Ratio] 0 % 0-5 [facility] Platelet countOrdered By: Melinda Queen on 02-28-2025 Platelets (Bld) [#/Vol] 333 10*3/uL 150-450 [facility] ,Serum,hCG Quali.on 02-28-2025 HCG, SERUM QUAL Negative Normal [facility] Comment on above: Performed By: #### L 700.6800 ####[facility] [address] [facility] [address] [place], [place], [address] RBC Auto (Bld) [#/Vol]Ordere d By: Renetta Queen on 02-28-2025 RBC (Bld) [#/Vol] 4.80 10*6/uL 4.2-5.4 [facility] Serum beta-hCG test, qualita tiveOrdered By: Renetta Queen on 02-28-2025 Beta HCG ( test) Ql Negative [facility] Transvaginal Non-on 02-28-2025 Transvaginal Non- Normal [facility] White blood cell (WBC) count Ordered By: Renetta Queen on 02-28-2025 WBC (Bld) [#/Vol] 8.5 10*3/uL 4.4-11.0 [facility] PAP IG HPV APTIMA 16/18,45on 02-27-2025 ADEQ Comment Normal . [facility] Comment on above: Order Comment: Speci men Comment: [id number] Comment: No. of containers..01 ThinPrep Vial Result Comment: Sati sfactory for evaluation. Endocervical and/or squamous metaplasticcells (endocervical component) are present. Performed By: #### L 7400.0280 ####[facility] [address] [place], [place], [address] COMM . Normal . [facility] Comment on above: Order Comment: Speci men Comment: [id number] Comment: No. of containers..01 ThinPrep Vial Performed By: #### L 7400.0280 ####[facility] [address] [place], [place], [address] COMMENT Comment Normal . [facility] Comment on above: Order Comment: Speci men Comment: [id number] Comment: No. of containers..01 ThinPrep Vial Result Comment: This liquid based ThinPrep(R) pap test was screened withthe use of an image guided system. Performed By: #### L 7400.0280 ####[facility] [address] [place], [place], [address] DIAG Comment Abnormal . [facility] Comment on above: Order Comment: Speci men Comment: [id number] Comment: No. of containers..01 ThinPrep Vial Result Comment: EPIT HELIAL CELL ABNORMALITY.ATYPICAL SQUAMOUS CELLS OF UNDETERMINED SIGNIFICANCE (ASC-US). Performed By: #### L 7400.0280 ####[facility] [address] [place], [place], [address] HPV APTIMA, HR Positive Abnormal Negative [facility] Comment on above: Order Comment: Speci men Comment: [id number] Comment: No. of containers..01 ThinPrep Vial Result Comment: This nucleic acid amplification test detects fourteen high-risk HPV types (16,18,31,33,35,39,45,51,52,56,58,59,66,68)without differentiation. Performed By: #### L 7400.0280 ####[facility] [address] [place], [place], [address] HPV Yaneli Rfx Comment Normal . [facility] Comment on above: Order Comment: Speci men Comment: [id number] Comment: No. of containers..01 ThinPrep Vial Result Comment: Kaceyt celia not met, HPV Genotype not performed.Performed at: - [facility] [id number] Director: Bobbi Butler MD, Phone: [phone] at: = - [facility] [address], [place] [id number] Director: Bobbi Butler MD, Phone: [phone] Performed By: #### L 7400.0280 ####[facility] [address] [place], [address] PAPSMR Comment Normal . [facility] Comment on above: Order Comment: Speci men Comment: [id number] Comment: No. of containers..01 ThinPrep Vial Result Comment: The Pap smear is a screening test designed to aid in thedetection of premalignant and malignant conditions of theuterine cervix. It is not a diagnostic procedure andshould not be used as the sole means of detecting cervicalcancer. Both false-positive and false-negative reports dooccur. Performed By: #### L 7400.0280 ####[facility] [address] [place], [address] Path.prov.IDC-[address] [facility] Comment on above: Order Comment: Speci men Comment: [id number] Comment: No. of containers..01 ThinPrep Vial Result Comment: R87. 610 Performed By: #### L 7400.0280 ####[facility] [address] [place], [place], [address] PERFORM Comment Normal . [facility] Comment on above: Order Comment: Speci men Comment: [id number] Comment: No. of containers..01 ThinPrep Vial Result Comment: Bahman Kathleen, Hospitality Services Manager (ASCP) Performed By: #### L 7400.0280 ####[facility] [address] [place], [place], [address] SIGN Comment Normal . [facility] Comment on above: Order Comment: Speci men Comment: [id number] Comment: No. of containers..01 ThinPrep Vial Result Comment: Rudolph Chanel MD, Pathologist Performed By: #### L 7400.0280 ####[facility] [address] [place], [place], [address] Absolute lymphocyte countOrd ered By: Elaine Jones on 02-25-2025 Lymphocytes Auto (Unsp spec) [#/Vol] 2.41 10*3/uL 0.83-4.51 [facility] Absolute neutrophil countOrd ered By: Elaine Jones on 02-25-2025 Neutrophils (Bld) [#/Vol] 4.7 10*3/uL 2.0-7.7 [facility] Anion gap in Serum or Plasma Ordered By: Elaine Jones on 02-25-2025 Anion gap [Moles/Vol] 14 mmol/L 5-15 [facility] Automated lymphocyte count a s percentage of total leukocytesOrdered By: Elaine Jones on 02-25-2025 Lymphocytes/100 WBC Auto (Unsp spec) 31.0 % 19-41 [facility] BUN/creatinine ratioOrdered By: Elaine Jones on 02-25-2025 Urea nitrogen/Creatinine [Mass ratio] 25.3 mg/mg High 10-20 [facility] Basophil percentageOrdered B y: Elaine Jones on 02-25-2025 Basophils/100 WBC (Bld) 0.4 % 0-1 [facility] Bilirubin, totalOrdered By: Elaine Jones on 02-25-2025 Bilirubin [Mass/Vol] 0.23 mg/dL 0.00-1.[address] [facility] CBC W/Diff, Automatedon - Absolute Lymph 2.41 X10 3/uL Normal 0.83-4.51 [facility] Comment on above: Performed By: #### L 501.9520, L500.4050, L3890.6006, L501.9985, L100.0100 ####[facility] [address] [place], [address] Absolute Neut 4.7 X10 3/uL Normal 2.0-7.7 [facility] Comment on above: Performed By: #### L 501.9520, L500.4050, L3890.6006, L501.9985, L100.0100 ####[facility] [address] [place], [address] Basophils/100 WBC (Bld) 0.4 % Normal 0-1 [facility] Comment on above: Performed By: #### L 501.9520, L500.4050, L3890.6006, L501.9985, L100.0100 ####[facility] [address] [place], [address] Eosinophils/100 WBC (Bld) 1.2 % Normal 0-5 [facility] Comment on above: Performed By: #### L 501.9520, L500.4050, L3890.6006, L501.9985, L100.0100 ####[facility] [address] [place], [address] Erythrocyte distribution width (RBC) [Ratio] 13.5 % Normal 11.6-14.6 [facility] Comment on above: Performed By: #### L 501.9520, L500.4050, L3890.6006, L501.9985, L100.0100 ####[facility] [address] [place], [address] Hematocrit (Bld) [Volume fraction] 35.3 % Low 37-47 [facility] Comment on above: Performed By: #### L 501.9520, L500.4050, L3890.6006, L501.9985, L100.0100 ####[facility] [address] [place], [address] Hemoglobin (Bld) [Mass/Vol] 11.3 g/dL Low 12.0-15.0 [facility] Comment on above: Performed By: #### L 501.9520, L500.4050, L3890.6006, L501.9985, L100.0100 ####[facility] [address] [place], [address] IG% 0.500 Normal 0.0-0.9 [facility] Comment on above: Result Comment: IG% - Immature Granulocytes (promyelocytes, myelocytes andmetamyelocytes) > 1% indicates that a LEFT SHIFT is Present. Performed By: #### L 501.9520, L500.4050, L3890.6006, L501.9985, L100.0100 ####[facility] [address] [place], [address] Lymphocytes/100 WBC (Bld) 31.0 % Normal 19-41 [facility] Comment on above: Performed By: #### L 501.9520, L500.4050, L3890.6006, L501.9985, L100.0100 ####[facility] [address] [place], [address] MCH (RBC) [Entitic mass] 24.6 pg Low 27.0-32.0 [facility] Comment on above: Performed By: #### L 501.9520, L500.4050, L3890.6006, L501.9985, L100.0100 ####[facility] [address] [place], [address] MCHC (RBC) [Mass/Vol] 32.0 g/dL Normal 32-36 [facility] Comment on above: Performed By: #### L 501.9520, L500.4050, L3890.6006, L501.9985, L100.0100 ####[facility] [address] [place], [address] MCV (RBC) [Entitic vol] 76.7 fL Low 81-99 [facility] Comment on above: Performed By: #### L 501.9520, L500.4050, L3890.6006, L501.9985, L100.0100 ####[facility] [address] [place], [address] Monocytes/100 WBC (Bld) 6.0 % Normal 0-10 [facility] Comment on above: Performed By: #### L 501.9520, L500.4050, L3890.6006, L501.9985, L100.0100 ####[facility] [address] [place], [address] Neutrophils/100 WBC (Bld) 60.9 % Normal 47-70 [facility] Comment on above: Performed By: #### L 501.9520, L500.4050, L3890.6006, L501.9985, L100.0100 ####[facility] [address] [place], [address] Nucleated RBC (Bld) [#/Vol] 0 10*3/uL Normal 0-5 [facility] Comment on above: Performed By: #### L 501.9520, L500.4050, L3890.6006, L501.9985, L100.0100 ####[facility] [address] [place], [address] Platelet mean volume (Bld) [Entitic vol] 9.1 fL Normal 6.2-12.0 [facility] Comment on above: Performed By: #### L 501.9520, L500.4050, L3890.6006, L501.9985, L100.0100 ####[facility] [address] [place], [address] Platelets (Bld) [#/Vol] 291 10*3/uL Normal 150-450 [facility] Comment on above: Performed By: #### L 501.9520, L500.4050, L3890.6006, L501.9985, L100.0100 ####[facility] [address] [place], [address] RBC (Bld) [#/Vol] 4.60 10*6/uL Normal 4.2-5.4 [facility] Comment on above: Performed By: #### L 501.9520, L500.4050, L3890.6006, L501.9985, L100.0100 ####[facility] [address] [place], [address] RDW SD 37.1 fl Normal 35.1-43.9 [facility] Comment on above: Performed By: #### L 501.9520, L500.4050, L3890.6006, L501.9985, L100.0100 ####[facility] [address] [place], [address] WBC (Bld) [#/Vol] 7.8 10*3/uL Normal 4.4-11.0 [facility] Comment on above: Performed By: #### L 501.9520, L500.4050, L3890.6006, L501.9985, L100.0100 ####[facility] [address] [place], [address] Carbon dioxide, total [Moles /volume] in Central venous bloodOrdered By: Elaine Jones on 02-25-2025 CO2 [Moles/Vol] 20.8 mmol/L Low 21.0-32.0 [facility] Cervical or vaginal specimen microscopic examination by liquid based cytology (reportOrdered By: Elaine Jones on 02-25-2025 Cytology report Cyto stain.thin prep Doc (Cvx/Vag) Comment . [facility] Comment on above: Criteria not met, HP V Genotype not performed.Performed at: - [facility] [address] [id number] Director: Bobbi Butler MD, Phone: [phone] at: = - [facility] [address] [id number] Director: Bobbi Butler MD, Phone: [phone] Cervical or vagninal specime n microscopic examination by cytology stain (reported asOrdered By: Elaine Jones on 02-25-2025 Cytology report Cyto stain Doc (Cvx/Vag) Comment . [facility] Comment on above: The Pap smear is a s creening test designed to aid in thedetection of premalignant and malignant conditions of theuterine cervix. It is not a diagnostic procedure andshould not be used as the sole means of detecting cervicalcancer. Both false-positive and false-negative reports dooccur. Chloride assayOrdered By: Keagan Jones on 02-25-2025 Chloride [Moles/Vol] 97 mmol/L Low 98-[address] [facility] Comprehensive Metabolic Prof ilon 02-25-2025 Albumin [Mass/Vol] 4.1 g/dL Normal 3.5-5.0 [facility] Comment on above: Performed By: #### L 501.9520, L500.4050, L3890.6006, L501.9985, L100.0100 ####[facility] [address] [place], [address] Albumin/Globulin [Mass ratio] 1.2 {ratio} Normal 0.9-2.4 [facility] Comment on above: Performed By: #### L 501.9520, L500.4050, L3890.6006, L501.9985, L100.0100 ####[facility] [address] [place], [address] ALK PHOS 100 U/L Normal 35-104 [facility] Comment on above: Performed By: #### L 501.9520, L500.4050, L3890.6006, L501.9985, L100.0100 ####[facility] [address] [place], [address] ALT [Catalytic activity/Vol] 11 U/L Normal <=34 [facility] Comment on above: Performed By: #### L 501.9520, L500.4050, L3890.6006, L501.9985, L100.0100 ####[facility] [address] [place], [address] AST [Catalytic activity/Vol] 12 U/L Normal <=31 [facility] Comment on above: Performed By: #### L 501.9520, L500.4050, L3890.6006, L501.9985, L100.0100 ####[facility] [address] [place], [address] Bilirubin [Mass/Vol] 0.23 mg/dL Normal 0.00-1.[address] [facility] Comment on above: Performed By: #### L 501.9520, L500.4050, L3890.6006, L501.9985, L100.0100 ####[facility] [address] [place], [address] BUN/CRE 25.3 RATIO High 10-20 [facility] Comment on above: Performed By: #### L 501.9520, L500.4050, L3890.6006, L501.9985, L100.0100 ####[facility] [address] [place], [address] Calcium [Mass/Vol] 9.4 mg/dL Normal 7.6-11.0 [facility] Comment on above: Performed By: #### L 501.9520, L500.4050, L3890.6006, L501.9985, L100.0100 ####[facility] [address] [place], [address] Chloride [Moles/Vol] 97 mmol/L Low 98-[address] [facility] Comment on above: Performed By: #### L 501.9520, L500.4050, L3890.6006, L501.9985, L100.0100 ####[facility] [address] [place], [address] CO2 [Moles/Vol] 20.8 mmol/L Low 21.0-32.0 [facility] Comment on above: Performed By: #### L 501.9520, L500.4050, L3890.6006, L501.9985, L100.0100 ####[facility] [address] [place], [address] Creatinine [Mass/Vol] 0.70 mg/dL Normal 0.70-1.20 [facility] Comment on above: Performed By: #### L 501.9520, L500.4050, L3890.6006, L501.9985, L100.0100 ####[facility] [address] [place], [address] GAP 14 Normal 5-15 [facility] Comment on above: Performed By: #### L 501.9520, L500.4050, L3890.6006, L501.9985, L100.0100 ####[facility] [address] [place], [address] GFR/1.73 sq M.predicted among non-blacks MDRD (S/P/Bld) [Vol rate/Area] 117 mL/min/{1.73_m2} Normal >60 [facility] Comment on above: Result Comment: mL/m in/1.73m2 CKD-EPI Creatinine Equation (2020) Performed By: #### L 501.9520, L500.4050, L3890.6006, L501.9985, L100.0100 ####[facility] [address] [place], [address] Globulin (S) [Mass/Vol] 3.4 g/dL Normal 2.2-4.2 [facility] Comment on above: Performed By: #### L 501.9520, L500.4050, L3890.6006, L501.9985, L100.0100 ####[facility] [address] [place], [address] Glucose [Mass/Vol] 355 mg/dL High 70-99 [facility] Comment on above: Performed By: #### L 501.9520, L500.4050, L3890.6006, L501.9985, L100.0100 ####[facility] [address] [place], [address] Potassium [Moles/Vol] 4.8 mmol/L Normal 3.3-5.1 [facility] Comment on above: Performed By: #### L 501.9520, L500.4050, L3890.6006, L501.9985, L100.0100 ####[facility] [address] [place], [address] Sodium [Moles/Vol] 132 mmol/L Low 133-145 [facility] Comment on above: Performed By: #### L 501.9520, L500.4050, L3890.6006, L501.9985, L100.0100 ####[facility] [address] [place], [address] T PROT 7.4 g/dL Normal 5.9-8.4 [facility] Comment on above: Performed By: #### L 501.9520, L500.4050, L3890.6006, L501.9985, L100.0100 ####[facility] [address] [place], [place], [id number] Urea nitrogen [Mass/Vol] 18 mg/dL Normal 4-19 [facility] Comment on above: Performed By: #### L 501.9520, L500.4050, L3890.6006, L501.9985, L100.0100 ####[facility] [address] [place], [place], [id number] Detection in cervical specim en of any of human papilloma virus (HPV) 16, 18, 31, 33,Ordered By: Elaine Jones on 02-25-2025 HPV 16+18+31+33+35+39+45+5 1+52+56+58+59+66+68 DNA Probe+sig amp Ql (Cvx) Positive High Negative [facility] Comment on above: This nucleic acid am plification test detects fourteen high- risk HPV types (16,18,31,33,35,39,45,51,52,56,58,59,66,68)without differentiation. Eosinophil percentageOrdered By: Elaine Jones on 02-25-2025 Eosinophils/100 WBC (Bld) 1.2 % 0-5 [facility] Erythrocyte distribution wid th ratioOrdered By: Elaine Jones on 02-25-2025 Erythrocyte distribution width (RBC) [Ratio] 13.5 % 11.6-14.6 [facility] Erythrocyte distribution wid th standard deviationOrdered By: Elaine Jones on 02-25-2025 Erythrocyte distribution width (RBC) [Ratio] 37.1 fl 35.1-43.9 [facility] Glomerular filtration rate ( GFR) estimation/1.73 sq m using serum, plasma, or whole bOrdered By: Elaine Jones on 02-25-2025 GFR/1.73 sq M.predicted among non-blacks MDRD (S/P/Bld) [Vol rate/Area] 117 mL/min/{1.73_m2} >60 [facility] Comment on above: mL/min/1.73m2 CKD-EP I Creatinine Equation (2020) HIVon 02-25-2025 HIV Non-Reactive Normal Nonreactive [facility] Comment on above: Result Comment: Non- ReactiveReactiveRepeatedly reactive samples must be confirmed according [facility] recommended confirmatory algorithms. The subresults foreither HIVAG or AHIV can be used as an aid in the selectionof the confirmation algorithm for reactive samples.Send out specimens with Reactive results to [facility] forconfirmation.Order the HIV antibody detection and differentiation:lc#[id number] Performed By: #### L 501.9520, L500.4050, L3890.6006, L501.9985, L100.0100 ####[facility] [address] [place], [place], [address] Hematocrit Auto (Bld) [Volum e fraction]Ordered By: Elaine Jones on 02-25-2025 Hematocrit (Bld) [Volume fraction] 35.3 % Low 37-47 [facility] Hemoglobin A1con 02-25-2025 HbA1c (Bld) [Mass fraction] 12.4 % High <=5.6 [facility] Comment on above: Result Comment: Norm al < 5.7 % Prediabetic 5.7 - 6.4 % Diabetic >or= 6.5 % Please note range changes. Performed By: #### L 501.9520, L500.4050, L3890.6006, L501.9985, L100.0100 ####[facility] [address] [facility] [place], [place], [id number] Hemoglobin A1c percentageOrd ered By: Elaine Jones on 02-25-2025 HbA1c (Bld) [Mass fraction] 12.4 % High <5.7 [facility] Comment on above: Normal < 5.7 % Predi abetic 5.7 - 6.4 % Diabetic >or= 6.5 % Please note range changes. Hemoglobin measurementOrdere d By: Elaine Jones on 02-25-2025 Hemoglobin (Bld) [Mass/Vol] 11.3 g/dL Low 12.0-15.0 [facility] Immature granulocytes/100 WB C Auto (Bld)Ordered By: Elaine Jones on 02-25-2025 Immature granulocytes/100 WBC (Bld) 0.500 % 0.0-0.9 [facility] Comment on above: IG% - Immature Granu locytes (promyelocytes, myelocytes and metamyelocytes) > 1% indicates that a LEFT SHIFT is Present. Laboratory - Chemistry and C hemistry - challengeOrdered By: Elaine Jones on 02-25-2025 AST [Catalytic activity/Vol] 12 U/L <32 [facility] HCG ( test) Ql (U) Negative [facility] Laboratory - CytologyOrdered By: Elaine Jones on 02-25-2025 Hospitality Services Manager Cyto stain Nom (Cvx/Vag) [ID] Comment . [facility] Comment on above: Kiel Bailey ologist (ASCP) Pathologist Cyto stain Nom (Cvx/Vag) [ID] Comment . [facility] Comment on above: Sandra Chanel MD, P athologist Laboratory - Miscellaneous t estsOrdered By: Elaine Jones on 02-25-2025 Service comment (Unsp spec) [Interp] . . [facility] MCV (mean corpuscular volume ) determinationOrdered By: Elaine Jones on 02-25-2025 MCV (RBC) [Entitic vol] 76.7 fL Low 81-99 [facility] Mean corpuscular hemoglobin (MCH) determinationOrdered By: Elaine Jones on 02-25-2025 MCH (RBC) [Entitic mass] 24.6 pg Low 27.0-32.0 [facility] Mean corpuscular hemoglobin concentration (MCHC) determinationOrdered By: Elaine Jones on 02-25-2025 MCHC (RBC) [Mass/Vol] 32.0 g/dL 32-36 [facility] Mean platelet volume determi nationOrdered By: Elaine Jones on 02-25-2025 Platelet mean volume (Bld) [Entitic vol] 9.1 fL 6.2-12.0 [facility] Monocyte percentageOrdered B y: Elaine Jones on 02-25-2025 Monocytes/100 WBC (Bld) 6.0 % 0-10 [facility] Neutrophil percentageOrdered By: Elaine Jones on 02-25-2025 Neutrophils/100 WBC (Bld) 60.9 % 47-70 [facility] No Panel InformationOrdered By: Elaine Jones on 02-25-2025 Pap Smear Specimen Adequacy Comment . [facility] Comment on above: Satisfactory for daniel luation. Endocervical and/or squamous metaplasticcells (endocervical component) are present. Pathology report final diagnosis Narrative Comment . [facility] Comment on above: R87.610 HIV (1&2) Antibody Non-Reactive Nonreactive [facility] Comment on above: Non-ReactiveReactive Repeatedly reactive samples must be confirmed according to CDC recommended confirmatory algorithms. The subresults for either HIVAG or AHIV can be used as an aid in the selection of the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 gas in bag that is concerned to me for either drain migration into the colon or a heretofore undetected colonic injury - last CT scan on 11/19 did not have contrast within the colon. I'm sending her to ED for IR drain study to determine drain location. She may also need repeat CT a/p with IV and rectal contrast to re-evaluation the abscess. Discussion with External Provider: Oriental Medicine Practitioner from EGS service recommends IR fistulagram and CT A/P Medication Management: Medications prescribed - see visit medications. Independent Test Interpretation: Lab studies reviewed, please see ED course Junior Garcia Course: ED Course as of 11/27/24 1250 MonNov 27, 2024 1244 WBC(!): 13.1 Leukocytosis present [KS] 1245 Hemoglobin(!): 9.8 Hgb around baseline [KS] 1245 Magnesium(!): 1.6 Mild hypomagnesemia [KS] 1245 Hepatic Function Panel(!): Albumin 3.7 Bilirubin, Direct <0.05 Bilirubin, Total 0.2(!) Alkaline Phosphatase 92 ALT (SGPT) 14 AST (SGOT) 14 Protein, Total 7.0 Normal LFTs [KS] 1245 Basic Metabolic Panel(!): Glucose 125(!) Sodium 136 Potassium 4.8 Carbon Dioxide 23 Chloride 100 BUN 21 Creatinine 0.80 Calcium 9.3 Anion Gap 18 Estimated GFR 101 No MARY or clinically significant abnormalities in electrolytes [KS] ED Course User Index [KS] Jyoti Brewer MD Assessment AND Plan: This is a 29 year old female patient, s/p emergency pLTCS for abruption +NRFS with Pre-eclampsia on 11/06/24 complicate (more content not included)... Normal [facility] FL SINOGRAM FISTULAGRAMon FL SINOGRAM FISTULAGRAM EXAMINATION: FL SINOGRAM FISTULAGRAM 11/27/2024 03:02 PM CLINICAL HISTORY: drain studey to evaluate for colon leak ASSOCIATED DIAGNOSIS: ORDERING PROVIDER: TUSHAR MONDRAGON TECHNOLOGISTS NOTE: COMPARISON: CT ABDOMEN/PELVIS W/ CONTRAST 11/19/2024 FLUOROSCOPIST: LUIS MANUEL LOUIE TIME: 1.1 Minutes INTRA-PROCEDURE MEDS: iohexol (OMNIPAQUE) 300 MG/ML injection 50 mL Route: Rectal FINDINGS: Abdominal Founder: There is a surgical drain in the right abdomen. Telemetry leads overlying the abdomen. Nonobstructive bowel gas pattern. 50 mL of Omnipaque was administered through the catheter/drain. There is opacification of the right colon. Finding conforms fistulous connection the right colon.. IMPRESSION: Findings consistent with colonic fistula. MACRO: None I have personally reviewed the images and agree with the resident's interpretation. Normal [facility] H AND Estuardo 11-27-2024 Planner Authentication Interface Message Text Attestation signed by Cortes Meyers MD at 11/28/2024 8:31 AM Split/Shared Documentation I approve the management plan for this patient and take responsibility for the plan as documented. Independent Interpretation of Tests Performed by Another Physician/LAZARO: I personally performed, reviewed, and interpreted labs and imaging with findings of iatrogenic colocutaneous fistula. Patient is relatively asymptomatic, will plan to allow fistula to mature. Follow up in 4 weeks for drain removal. Cortes Meyers MD [facility] DIVISION OF ACUTE CARE SURGERY EMERGENCY GENERAL SURGERY CONSULTATION Reason for consultation: feculent drainage from IR drain Referring physician: No ref. provider found HPI: Bernadette aFust is a 29 year old female with PMHx of DM2, pre-eclampsia. Patient is known to EGS service. She underwent an emergent at 34 weeks for placental abruption (11/06). She was worked up at OSH for RUQ abdominal pain and found to have a RUQ fluid collection concerning for an intra-abdominal abscess. Patient was transferred to [facility] on 11/15 for intra-abdominal abscess management. EGS and IR were consulted and percutaneous drian was placed on 11/15 by IR. EGS signed off 11/16. Patient discharged home on 11/19. Patient was seen today in EGS clinic for routine follow up and possible drain removal. Due to feculent drainage from IR drain, patient was sent to ER with EGS consult for further evaluation. During ED encounter, patient reports that she noticed a change in color/character/smell the day prior to discharge. Drainage was initially yellow/cloudy and purulent appearing. However, drainage changed to cloudy, brown, foul smelling drainage. Patient reports that drainage smells like stool and sulfur. She noticed that the IR bag filled up quickly with drainage that appeared like chicken broth shortly after drinking chicken broth. She has also noticed that bag will fill with air. She has been irrigating IR drain with 10cc NS flushes, but is sure that she has not been irrigating drain with air. Regarding abdominal pain, patient endorses moderate pain to right-side of abdomen, especially near drain site. Pain is no worse than time of discharge, but has not improved. She also endorses intermittent nausea, which has been occurring throughout hospitalization/dischar ge. She did have x2 episodes of emesis while at home. Patient does deny fever/sweats/chills. Patient completed augmentin abx course this AM. 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) complex migraine, negative MS workup, on ajovy q3mo TIA (transient ischemic attack) (12/2016) presented to ED for L sided weakness, CTH/CTA/MRI wnl, vs complex migraine PSH: Review of patient's past surgical history indicates: EXCISION, BREAST LESION(S), OPEN, MALE/FEMALE;* (02/09/2017) left nipple lesion + milk duct DILATION AND CURETTAGE, DX AND /OR THERAPEUTIC (NON* (2013) delayed PPH, RPOC DILATION AND CURETTAGE, DX AND /OR THERAPEUTIC (NON* SAB TONSILLECTOMY AND ADENOIDECTOMY; AGE 12+ APPENDECTOMY (05/2006) DELIVERY ONLY (11/06/2024) PPH, 1u PRBC MEDS: Prior to Admission Medications Prescriptions Last Dose Informant Patient Reported? Taking? Blood Glucose Monitoring Suppl (Blood Glucose Monitor System) w/Device KIT No No Si Kit as needed. As covered by insurance. Dx: DM2, uncontrolled (E11.65) with long-term insulin use (Z79.4) Lancets MISC No No Si Each 4 times daily (before meals and at bedtime). Use these lancets to test your blood sugar fasting in the morning, before meals, 1hr after meals, and at bedtime NIFEdipine (ADALAT CC) 30 MG CR tablet No No Sig: Take 1 Tablet by mouth 2 times a day. acetaminophen (TYLENOL) 500 MG tablet No No Sig: Take 2 Tablets by mouth every 6 hours. alcohol swabs pads No No Sig: Use to clean skin prior to checking blood sugar and/or injecting medication cyclobenzaprine (FLEXERIL) 5 MG tablet No No Sig: Take 2 Tablets by mouth 3 times daily as needed for Muscle spasms. cyproheptadine (PERIACTIN) 4 MG tablet No No Sig: Take 1 Tablet by mouth 3 times daily as needed for Allergies. docusate sodium (COLACE) 100 MG capsule No No Sig: Take 1 Capsule by mouth 2 times daily. glucose blood test strip No No Si Strip 7 times daily as instructed. Use these test strips to test blood sugar AM fasting, premeal, 1hr postmeal, and before bedtime daily. ibuprofen (MOTRIN) 600 MG tablet No No Sig: Take 1 Tablet by mouth every 6 hours. insulin glargine (LANTUS SOLOSTAR/BASAGLAR KWIKPEN) 100 UNIT/ML pen (more content not included)... Normal [facility] HEPATIC FUNCTION PANELon Albumin [Mass/Vol] 3.7 g/dL 3.5 - 5.7 g/dL [facility] ALP [Catalytic activity/Vol] 92 U/L [facility] ALT [Catalytic activity/Vol] 14 U/L [facility] AST [Catalytic activity/Vol] 14 U/L [facility] Bilirubin [Mass/Vol] 0.2 mg/dL Low 0.3 - 1 .0 mg/dL [facility] Bilirubin.direct [Mass/Vol] mg/dL 0.03 - 0.18 mg/dL [facility] Protein [Mass/Vol] 7 g/dL 6.0 - 8.3 g/dL [facility] Albumin [Mass/Vol] 3.7 g/dL Normal 3.5-5.7 [facility] Comment on above: Performed By: #### C ANRBC #### [facility] [address] [facility] [place], [place] ALK 92 IU/L Normal 34-104 [facility] Comment on above: Performed By: #### C ANRBC #### [facility] [address] [facility] [place], [place] ALT [Catalytic activity/Vol] 14 U/L Normal 7-52 [facility] Comment on above: Performed By: #### C ANRBC #### [facility] Path[facility] [address] [facility] [place], [place] AST [Catalytic activity/Vol] 14 U/L Normal 13-39 [facility] Comment on above: Performed By: #### C ANRBC #### [facility] [address] [facility] [address] [place] Bilirubin [Mass/Vol] 0.2 mg/dL Low 0.3-1.0 [facility] Comment on above: Performed By: #### C ANRBC #### [facility] [address] [facility] [place], [place] DBIL < 0.05 Normal 0.03-0.18 [facility] Comment on above: Performed By: #### C ANRBC #### [facility] [address] [facility] [place], [place] Protein [Mass/Vol] 7.0 g/dL Normal 6.0-8.3 [facility] Comment on above: Performed By: #### C ANRBC #### [facility] [address] [facility] [address] [place], [place] LIPASEon 11-27-2024 Interpretation and review of laboratory results Normal [facility] Lipase [Catalytic activity/Vol] 31 U/L [facility] LIP 31 IU/L Normal 11-82 [facility] Comment on above: Performed By: #### C ANRBC #### [facility] [address] [facility] [place], [place] MAGNESIUMon 11-27-2024 Magnesium [Mass/Vol] 1.6 mg/dL Low 1.9 - 2 .7 mg/dL [facility] Magnesium [Mass/Vol] 1.6 mg/dL Low 1.9-2.7 [facility] Comment on above: Performed By: #### C ANRBC #### [facility] [address] [facility] [place], [place] No Panel Informationon 11-27 Interpretation and review of laboratory results Abnormal [facility] Noteson 11-27-2024 Planner Authentication Interface Message Text TRAUMA [facility] - STAFF NOTE CC: post-discharge follow-up HPI: Ms. BERNADETTE Faust is a 29 year old woman here for post-discharge follow-up. She was transferred on 11/15/2024 from [facility] to [facility] after placental abruption requiring urgent complicated by intraabdominal hematoma. EGS and IR were consulted and a percutaneous drain was placed on 11/15. EGS then signed off on 11/16. The patient was discharged to home on 11/19. The patient tells me that several days after the drain was placed (but before she was discharged), the drain output changed from whitish-yellow to brown and foul-smelling. She underwent inpatient CT a/p with IV and PO contrast - contrast did not reach colon - which demonstrated no definitive bowel injury and interval decrease in size of collection with drain in appropriate place, so she was discharged by OB team. (EGS was not reconsulted during this time). Since being at home, there has been 25-50 mL of brown, foul-smelling output that has particulate matter in it. The bag also fills with gas that she has to burp out of the bag. She is adamant that she does not push air into the tubing or bag when she is flushing it. She has been having persistent right-sided abdominal pain with poor appetite. She is afraid something in her abdomen is leaking into the bag. Of note, anaerobic wound culture on 11/15 grew Bacteroides. Review of Systems Constitutional: Positive for malaise/fatigue. Respiratory: Negative. Cardiovascular: Negative. Gastrointestinal: Positive for abdominal pain and nausea. Negative for blood in stool, constipation, diarrhea, melena and vomiting. Genitourinary: Negative. Musculoskeletal: Negative. Neurological: Negative. Psychiatric/Behavioral: Negative. Vitals: 11/27/24 1014 BP: 125/72 Pulse: 87 Resp: 16 Temp: 98.3 ???F (36.8 ???C) Physical Exam Constitutional: General: She is not in acute distress. Appearance: Normal appearance. She is normal weight. She is not toxic-appearing or diaphoretic. Comments: Mildly uncomfortable. Cardiovascular: Rate and Rhythm: Normal rate and regular rhythm. Pulmonary/Chest/Breast: Effort normal. No respiratory distress. She has no wheezes. Abdominal: General: Abdomen is flat. There is no distension. Palpations: Abdomen is soft. There is no mass. Tenderness: There is no abdominal tenderness. There is no guarding. Comments: IR drain flushes easily. Feculopurulent output. Small amount of gas in bag. Genitourinary: Genitourinary Comments: Pfannenstiel incision healing well. Neurological: General: No focal deficit present. Mental Status: She is alert and oriented to person, place, and time. Mental status is at baseline. Psychiatric: Mood and Affect: Mood normal. Behavior: Behavior normal. Thought Content: Thought content normal. Judgment: Judgment normal. Vitals reviewed. Labs/Imagin11/15/2024 CT a/p with IV, PO, rectal contrast: IMPRESSION: 1. There is a slightly lobulated complex gas and fluid collection anterolateral to the cecum and right colon just below liver that is worrisome for an abscess and does not communicate with the adjacent contrast enhanced large bowel. This could represent a periappendiceal abscess as the appendix is not visualized. 2. There are trace amounts of free fluid within both pericolic gutters and subhepatic region and a small amount of free fluid within the pelvis and cul-de-sac surrounding the uterus. 3. The endometrial canal is thickened and there is heterogeneous density within the endometrial canal. Retained products of conception cannot be excluded and pelvic sonography is recommended. 4. There is mild diverticulosis of the redundant sigmoid colon with no evidence of diverticulitis. 5. There is mild fatty change of the liver. 6. There is no evidence of adenopathy. 7. There is distention of the gallbladder, which is a nonspecific finding and gallbladder sonography is recommended. 8. The remaining solid organs and remaining bowel are normal. 9. There are additional findings as described above. 11/19/2024 CT a/p with IV and oral contrast: IMPRESSION: 1. Markedly decreased size of multiloculated fluid collection in the right upper quadrant with properly positioned percutaneous drainage catheter. Resolved mass effect on adjacent structures. 2. Expected changes including enlarged uterus with heterogeneous endometrial canal. 3. Trace residual free fluid, markedly improved from prior. 4. Liquid feces throughout the colon, nonspecific, may represent secretory phase. 5. No CT evidence of rectal contrast. No CT evidence of enteric contrast in the cecum, transverse colon. Hence, evaluation for bowel injury/leak is difficult to assess in this study. Assessment/Plan: Ms. BERNADETTE Faust is a 29 year old woman with intraabdominal hematoma and abscess after urgent low transverse for placental abruption that wa (more content not included)... Normal [facility] RF Unspecified body region V iews W contrast via fistulaon 11-27-2024 EXAMINATION: FL SINOGRAM FISTULAGRAM 11/27/2024 03:02 PM CLINICAL HISTORY: drain studey to evaluate for colon leak ASSOCIATED DIAGNOSIS: ORDERING PROVIDER: TUSHAR MONDRAGON TECHNMARCELO NOTE: COMPARISON: CT ABDOMEN/PELVIS W/ CONTRAST 11/19/2024 FLUOROSCOPIST: LUIS MANUEL LOUIE TIME: 1.1 Minutes INTRA-PROCEDURE MEDS: iohexol (OMNIPAQUE) 300 MG/ML injection 50 mL Route: Rectal FINDINGS: Abdominal Founder: There is a surgical drain in the right abdomen. Telemetry leads overlying the abdomen. Nonobstructive bowel gas pattern. 50 mL of Omnipaque was administered through the catheter/drain. There is opacification of the right colon. Finding conforms fistulous connection the right colon.. IMPRESSION: Findings consistent with colonic fistula. MACRO: None I have personally reviewed the images and agree with the resident's interpretation. RADIOLOGY Bipin Shay MD - 11/27/2024 EXAMINATION: FL SINOGRAM FISTULAGRAM 11/27/2024 03:02 PM CLINICAL HISTORY: drain studey to evaluate for colon leak ASSOCIATED DIAGNOSIS: ORDERING PROVIDER: TUSHAR MONDRAGON TECHNOLOGISTS NOTE: COMPARISON: CT ABDOMEN/PELVIS W/ CONTRAST 11/19/2024 FLUOROSCOPIST: LUIS MANUEL LOUIE TIME: 1.1 Minutes INTRA-PROCEDURE MEDS: iohexol (OMNIPAQUE) 300 MG/ML injection 50 mL Route: Rectal FINDINGS: Abdominal Founder: There is a surgical drain in the right abdomen. Telemetry leads overlying the abdomen. Nonobstructive bowel gas pattern. 50 mL of Omnipaque was administered through the catheter/drain. There is opacification of the right colon. Finding conforms fistulous connection the right colon.. IMPRESSION: Findings consistent with colonic fistula. MACRO: None I have personally reviewed the images and agree with the resident's interpretation. [facility] Radiology Study observation (narrative) [facility] RF Unspecified body region V iews W contrast via fistulaOrdered By: Bipin Shay on 11-27-2024 [facility] Work Phone: INSULIN ANTIBODIESon 025 Insulin Ab JEFFREY Qn (S) <0.4 NINF - 0.4 U/mL [facility] Resulting Agency Address Site ID: [id number] Name: [facility], Address: [address] [place] [id number] Director: Elaina Michelle MD,PhD,ROSARIO [facility] AEROBIC WOUND CULTUREOrdered By: Pau Cuadra on 11-19-2024 Bacteria identified Cx Nom (Wound) Normal Skin tasha isolated [facility] Microscopic observation Gram stain Nom (Unsp spec) 4+ Polymorphonuclear Leukocytes [facility] Microscopic observation Gram stain Nom (Unsp spec) No Squamous Epithelial Cells seen [facility] Microscopic observation Gram stain Nom (Unsp spec) Mixed polymicrobial tasha seen [facility] Organisms observed i n a gram stain but do not demonstrate growth in culture may be non-viable due to interfering substances (antibiotics) or may be anaerobic. [facility] BASIC METABOLIC PANELon 10-31 Anion gap [Moles/Vol] 14 mmol/L Normal 10-20 [facility] Comment on above: Performed By: #### [id number] #### NURSING GLUCOSE PROGRAM [address] [place] [address], [id number] Calcium [Mass/Vol] 8.3 mg/dL Low 8.6-10.3 [facility] Comment on above: Performed By: #### 8 [id number] #### NURSING GLUCOSE PROGRAM [address] [place], [address] Chloride [Moles/Vol] 100 mmol/L Normal 98-107 [facility] Comment on above: Performed By: #### 8 [id number] #### NURSING GLUCOSE PROGRAM [address] [place], [address] CO2 [Moles/Vol] 25 mmol/L Normal 21-31 [facility] Comment on above: Performed By: #### 8 [id number] #### NURSING GLUCOSE PROGRAM [address] [place], [address] Creatinine [Mass/Vol] 0.78 mg/dL Normal 0.60-1.20 [facility] Comment on above: Performed By: #### 8 [id number] #### NURSING GLUCOSE PROGRAM [address] [place], [address] ESTIMATED GFR (CKD-EPI) 104 mL/min/1.73sqm Normal >=60 [facility] Comment on above: Result Comment: 2020 CKD EPI Equation using Creatinine without Race Comment: Estimated glomerular filtration rate (eGFR) is calculated without a race coefficient. Values should be interpreted in the context of the patient's full clinical presentation. Reference: 1. Servando C, Moiz M, Mary GROSS, et al.. A Unifying Approach for GFR Estimation: Recommendations of the NKF-ASN Task Force on Reassessing the Inclusion of Race in Diagnosing Kidney Disease. [place] Journal of Kidney Diseases 2021;79(2):268-88.e1. 2. N Engl J Med 1 Vol. 385 Issue 19 Pages 4277-3920 Performed By: #### 8 [id number] #### NURSING GLUCOSE PROGRAM [address] [place], [address] Glucose [Mass/Vol] 113 mg/dL High 74-109 [facility] Comment on above: Performed By: #### 8 [id number] #### NURSING GLUCOSE PROGRAM [address] [place], [address] Potassium [Moles/Vol] 4.2 mmol/L Normal 3.5-5.0 [facility] Comment on above: Performed By: #### 8 [id number] #### NURSING GLUCOSE PROGRAM [address] [place], [address] Sodium [Moles/Vol] 135 mmol/L Low 136-145 [facility] Comment on above: Performed By: #### 8 [id number] #### NURSING GLUCOSE PROGRAM [address] [place], [address] Urea nitrogen [Mass/Vol] 19 mg/dL Normal 7-25 [facility] Comment on above: Performed By: #### 8 [id number] #### NURSING GLUCOSE PROGRAM [address] [place], [address] Basic metabolic 2000 panelon 11-19-2024 Anion gap [Moles/Vol] 14 mmol/L 10 - 20 [facility] Calcium [Mass/Vol] 8.3 mg/dL Low 8.6 - 10. 3 mg/dL [facility] Chloride [Moles/Vol] 100 mmol/L 98 - 10 7 mmol/L [facility] CO2 [Moles/Vol] 25 mmol/L 21 - 31 mmol/L [facility] Creatinine [Mass/Vol] 0.78 mg/dL 0.60 - 1.20 mg/dL [facility] GFR/1.73 sq M.predicted CKD-EPI (S/P/Bld) [Vol rate/Area] 104 - PINF [facility] Comment on above: 2020 CKD EPI Equatio n using Creatinine without Race Comment: Estimated glomerular filtration rate (eGFR) is calculated without a race coefficient. Values should be interpreted in the context of the patient's full clinical presentation. Reference: 1. Servando C, Moiz M, Mary GROSS, et al.. A Unifying Approach for GFR Estimation: Recommendations of the NKF-ASN Task Force on Reassessing the Inclusion of Race in Diagnosing Kidney Disease. [place] Journal of Kidney Diseases 202;79(2):268-88.e1. 2. N Engl J Med 1 Vol. 385 Issue 19 Pages 1072-1215 Glucose [Mass/Vol] 113 mg/dL High 74 - 109 mg/dL [facility] Potassium [Moles/Vol] 4.2 mmol/L 3.5 - 5.0 mmol/L [facility] Sodium [Moles/Vol] 135 mmol/L Low 136 - 145 mmol/L [facility] Urea nitrogen [Mass/Vol] 19 mg/dL 7 - 25 mg/dL [facility] CBC panel Auto (Bld)Ordered By: Gisel Gr on 11-19-2024 Erythrocyte distribution width (RBC) [Ratio] 17.1 % High 11.5 - 14.5 % [facility] Hematocrit (Bld) [Volume fraction] 31.4 % Low 36.0 - 46.0 % [facility] Hemoglobin (Bld) [Mass/Vol] 10 g/dL Low 12.0 - 15.0 g/dL [facility] Interpretation and review of laboratory results Abnormal [facility] MCH (RBC) [Entitic mass] 25.6 pg Low 26.0 - 34.0 pg [facility] MCHC (RBC) [Mass/Vol] 31.8 g/dL Low 32.0 - 35.9 g/dL [facility] MCV (RBC) [Entitic vol] 81 fL 80 - 100 fL [facility] Platelet mean volume (Bld) [Entitic vol] 5.9 fL Low 7.5 - 11.2 fL [facility] Platelets (Bld) [#/Vol] 566 10*3/uL High 150 - 400 K/uL [facility] RBC (Bld) [#/Vol] 3.9 10*6/uL Low [facility] ealt WBC (Bld) [#/Vol] 10.8 10*3/uL 4.5 - 11.5 K/uL [facility] COMPLETE BLOOD COUNTon 11-19 Erythrocyte distribution width (RBC) [Ratio] 17.1 % High 11.5-14.5 [facility] Comment on above: Performed By: #### C BC #### [facility] [address] [place] [address], Hematocrit (Bld) [Volume fraction] 31.4 % Low 36.0-46.0 [facility] Comment on above: Performed By: #### C BC #### [facility] [address] [place] [address], Hemoglobin (Bld) [Mass/Vol] 10.0 g/dL Low 12.0-15.0 [facility] Comment on above: Performed By: #### C BC #### [facility] [address] [place] [address], MCH (RBC) [Entitic mass] 25.6 pg Low 26.0-34.0 [facility] Comment on above: Performed By: #### C BC #### [facility] [address] [place] [address], MCHC (RBC) [Mass/Vol] 31.8 g/dL Low 32.0-35.9 [facility] Comment on above: Performed By: #### C BC #### [facility] [address] [place] [address], MCV (RBC) [Entitic vol] 81 fL Normal 80-100 [facility] Comment on above: Performed By: #### C BC #### [facility] [address] [place] [address], Platelet mean volume (Bld) [Entitic vol] 5.9 fL Low 7.5-11.2 [facility] Comment on above: Performed By: #### C BC #### [facility] [address] [place] [address], Platelets (Bld) [#/Vol] 566 10*3/uL High 150-400 [facility] Comment on above: Performed By: #### C BC #### [facility] [address] [place] [address], RBC (Bld) [#/Vol] 3.90 10*6/uL Low 4.00-5.20 [facility] Comment on above: Performed By: #### C BC #### [facility] [address] [place] [address], WBC (Bld) [#/Vol] 10.8 10*3/uL Normal 4.5-11.5 [facility] Comment on above: Performed By: #### C BC #### [facility] [address] [place] [address], CT ABDOMEN/PELVIS W/ CONTRAS Ton 11-19-2024 CT ABDOMEN/PELVIS W/ CONTRAST EXAMINATION: CT ABDOMEN/PELVIS W/ CONTRAST 11/19/2024 06:04 AM CLINICAL HISTORY: Abdominal pain; evaluate drain placement, drain now outputting dark green/brown, check for bowel leak. rectal and PO contrast ASSOCIATED DIAGNOSIS: Pre-eclampsia, antepartum (HCC) Postprocedural intraabdominal abscess (HCC) Postprocedural intraabdominal abscess (HCC) ORDERING PROVIDER: JUANY MUHAMMAD TECHNOLOGISTS NOTE: No rectal contrast COMPARISON: CT ABDOMEN/PELVIS W/ CONTRAST 11/15/2024, 1:[address] BODY IMAGE IMPORT(VIET) 11/14/2024, 2:[address] BODY IMAGE IMPORT(VIET) 11/14/2024, 11:52 AM TECHNIQUE: Contiguous axial images were obtained through the abdomen and pelvis from the level of the diaphragmatic domes through the pubic symphysis following bolus administration of intravenous contrast. MPR sagittal and coronal reconstructions were obtained from the axial data. Before infusion of intravenous contrast, radiology personnel investigated the possibility of an allergic history and of any history of reaction to iodinated contrast material. Contrast Protocol: Omnipaque 350 [>or =100lb] 100 ml [<100 lb] 1 ml per 1 lb. INTRA-PROCEDURE MEDS: iohexol (OMNIPAQUE) 350 MG/ML injection 100 mL Route: Intravenous Push FINDINGS: Included images of the lower thorax: No focal lung consolidation or pleural effusion. Mild bibasilar dependent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 contrast given to pt. 0445: Pt finished drinking contrast. civil geotechnical engineer notified. Normal [facility] Care Plan Noteon 11-18-2024 Planner Authentication Interface Message Text Problem: Routine Care: Goal: Patient care will be managed and maintained throughout hospital stay per unit specific routine care procedure Outcome: Progressing Problem: Hypertensive Disorder in : Goal: Risk for seizure in will be minimized Outcome: Progressing Problem: Fluid and Electrolyte Imbalance: Goal: Adequate fluid and electrolyte balance will be achieved and maintained Outcome: Progressing Problem: Infection: Goal: Will be free of signs and symptoms of infection Outcome: Progressing Problem: Coping: Goal: Ability to identify and develop effective coping behavior will improve and/or be maintained Outcome: Progressing Problem: Knowledge Deficit: Goal: Ability to make informed decisions regarding treatment will improve Outcome: Progressing Problem: Acute Pain: Goal: Ability to identify pain intensity on a pain scale and rate it consistently will be achieved and maintained Outcome: Progressing Goal: Acceptable level of pain which allows the patient to achieve functional outcome goals Outcome: Progressing Goal: Ability to identify factors that manage or decrease pain will be achieved Outcome: Progressing Pt rating pain 5/10 on numeric pain scale. Pt verbalizes understanding of interventions. Problem: Safety: Goal: Patient will remain free of falls during hospital stay Outcome: Progressing Goal: Free from injury during hospitalization Outcome: Progressing Side rails up times two, bed locked in lowest position, call gomez within reach, non slip socks applied Problem: Discharge Planning: Goal: Discharge needs of the adult patient will be met Outcome: Progressing Normal [facility] Planner Authentication Interface Message Text Problem: Routine Care: Goal: Patient care will be managed and maintained throughout hospital stay per unit specific routine care procedure Outcome: Progressing Care provided per routine [facility] standard of procedure Problem: Hypertensive Disorder in : Goal: Risk for seizure in will be minimized Outcome: Progressing BP stable. Antihypertensive given as ordered. Problem: Fluid and Electrolyte Imbalance: Goal: Adequate fluid and electrolyte balance will be achieved and maintained Outcome: Progressing Voiding QS per pt. Tolerating regular diet. Problem: Infection: Goal: Will be free of signs and symptoms of infection Outcome: Progressing Afebrile. Antibiotics given as ordered. Drainage bag with increased output. CT Scan ordered. Problem: Coping: Goal: Ability to identify and develop effective coping behavior will improve and/or be maintained Outcome: Progressing Pt speaking on phone with family Problem: Knowledge Deficit: Goal: Ability to make informed decisions regarding treatment will improve Outcome: Progressing Pt kept updated on POC. Questions answered. Problem: Acute Pain: Goal: Ability to identify pain intensity on a pain scale and rate it consistently will be achieved and maintained Outcome: Progressing Pt with C/O pain by incision site, drain site and HERNADEZ. Medicated as needed. Some relief obtained. Goal: Acceptable level of pain which allows the patient to achieve functional outcome goals Outcome: Progressing Goal: Ability to identify factors that manage or decrease pain will be achieved Outcome: Progressing Problem: Safety: Goal: Patient will remain free of falls during hospital stay Outcome: Progressing Safe environment maintained. Call gomez within reach. Goal: Free from injury during hospitalization Outcome: Progressing Problem: Discharge Planning: Goal: Discharge needs of the adult patient will be met Outcome: Progressing POC ongoing. Normal [facility] [employer] [facility] Planner Authentication Interface Message Text Problem: Routine Care: Goal: Patient care will be managed and maintained throughout hospital stay per unit specific routine care procedure Outcome: Progressing Unit routine implemented- pt oriented to room, call gomez, care channel. Patient care will be managed and maintained throughout hospital stay per unit specific routine care procedure Orders being followed. Problem: Hypertensive Disorder in : Goal: Risk for seizure in will be minimized Outcome: Progressing Patient blood pressures taken per protocol. Problem: Fluid and Electrolyte Imbalance: Goal: Adequate fluid and electrolyte balance will be achieved and maintained Outcome: Progressing Adequate fluid and electrolyte balance will be achieved and maintained IV fluids infusing as ordered. Lab work drawn and sent as ordered. Problem: Infection: Goal: Will be free of signs and symptoms of infection Outcome: Progressing Patient receiving antibiotics per order. Patient afebrile. Problem: Coping: Goal: Ability to identify and develop effective coping behavior will improve and/or be maintained Outcome: Progressing Pt coping well while in labor and delivery. Plan to continue to offer support and education as needed. Problem: Knowledge Deficit: Goal: Ability to make informed decisions regarding treatment will improve Outcome: Progressing Pt verbalizes understanding of POC. All questions answered. Problem: Acute Pain: Goal: Ability to identify pain intensity on a pain scale and rate it consistently will be achieved and maintained Outcome: Progressing Goal: Acceptable level of pain which allows the patient to achieve functional outcome goals Outcome: Progressing Goal: Ability to identify factors that manage or decrease pain will be achieved Outcome: Progressing Problem: Safety: Goal: Patient will remain free of falls during hospital stay Outcome: Progressing Goal: Free from injury during hospitalization Outcome: Progressing Side rails up times two, bed locked in lowest position, call gomez within reach, non slip socks applied. Problem: Discharge Planning: Goal: Discharge needs of the adult patient will be met Outcome: Progressing No discharge concerns at this time. All questions answered. Pt verbalizes understanding of discharge disposition. Normal [facility] GLUCOSE, FINGERSTICK-IN OFFI CEon 11-18-2024 Glucose [Mass/Vol] 94 mg/dL 74 - 109 mg/dL [facility] Interpretation and review of laboratory results [facility] Glucose [Mass/Vol] 94 mg/dL Normal 74-109 [facility] Comment on above: Performed By: #### 8 [id number] #### NURSING GLUCOSE PROGRAM [address] [place] [address], [address] Glucose [Mass/Vol] 93 mg/dL 74 - 109 mg/dL [facility] Interpretation and review of laboratory results [facility] Glucose [Mass/Vol] 93 mg/dL Normal 74-109 [facility] Comment on above: Performed By: #### 8 2948 #### NURSING GLUCOSE PROGRAM [address] [place] [address], [address] Glucose [Mass/Vol] 115 mg/dL High 74 - 109 mg/dL [facility] Comment on above: Notified BENTLEY POLLOCK MD Interpretation and review of laboratory results Abnormal [facility] Glucose [Mass/Vol] 115 mg/dL High 74-109 [facility] Comment on above: Result Comment: Genoveva nunez RN, APN, MD Performed By: #### T S #### [facility] [address] [place] [address], [phone] Glucose [Mass/Vol] 118 mg/dL High 74 - 109 mg/dL [facility] Interpretation and review of laboratory results Abnormal [facility] Glucose [Mass/Vol] 118 mg/dL High 74-109 [facility] Comment on above: Performed By: #### 8 2948 #### NURSING GLUCOSE PROGRAM [address] [place], [address] Glucose [Mass/Vol] 60 mg/dL Low 74 - 109 mg/dL [facility] Comment on above: Notified BENTLEY POLLOCK MD Interpretation and review of laboratory results Abnormal [facility] Glucose [Mass/Vol] 60 mg/dL Low 74-109 [facility] Comment on above: Result Comment: Genoveva nunez RN, APN, MD Performed By: #### 8 2948 #### NURSING GLUCOSE PROGRAM [address] [place], [address] Glucose [Mass/Vol] 70 mg/dL Low 74 - 109 mg/dL [facility] Interpretation and review of laboratory results Abnormal [facility] Glucose [Mass/Vol] 70 mg/dL Low 74-109 [facility] Comment on above: Performed By: #### 8 2948 #### NURSING GLUCOSE PROGRAM [address] [place], [address] Progress Noteson 11-18-2024 Planner Authentication Interface Message Text Drain output 240 cc of smelly dark green drainage. Dr Rose over to access pt. CT scan ordered. Drain tubing flushed with 10 cc of NS Normal [facility] [employer] Interface Message Text Attestation signed by Clotilde Cheung MD at 11/18/2024 12:08 PM Teaching Physician Note: I saw and evaluated the patient. I personally obtained the vizcaino and critical portions of the history and physical exam. I reviewed the resident's documentation and discussed the patient with the resident. I agree with the resident's medical decision making as documented in the resident's note. The patient continues to have pain in all quadrants of her abdomen. The tube is draining a small amount of yellow fluid. Due to abdominal discomfort, will not discharge the patient today. This patient lives over an hour away from the hospital and does not have transportation. Will attempt to arrange for followup care closer to home. Patient to shower and walk today. Will need to manage ADL's prior to discharge. Clotilde Cheung MD [facility] Progress Note 11/18/2024 7:10 AM S: No acute events overnight. Pt called out with nausea that was relieved with Reglan. Pt is asleep this morning. Upon waking, pt endorses improving abdominal pain this morning. Pt passed another bowel movement. She denies vaginal discharge, increased bleeding, nausea, emesis, and dysuria. O: BP 147/85 (BP Location: left arm) Pulse 93 Temp 98.4 ???F (36.9 ???C) (Oral) Resp 18 SpO2 99% No Tmax (24 hours): 99.3 ???F (37.4 ???C) Blood pressure over the past 24 hours, as of 11/18/2024 7:10 AM: Systolic (24hrs), Av , Min:121 , Max:148 Diastolic (24hrs), Av, Min:81, Max:89 Gen: NAD, alert and oriented Abd: soft, tender with palpation in upper quadrants/ND, no suprapubic tenderness Ext: BLE edema, no calf tenderness SVE deferred A/P: BERNADETTE Faust is a 29 year old now POD#12 s/p emergent pLTCS with post-op course c/b intraperitoneal abscess POD#3 s/p IR drain. #Intraperitoneal abscess - CT AP at OSH with 4.9 x 6.9 x 5.6 cm collection at RUQ/ hemicolon. - Repeat CT on 11/15/2024 - Afebrile, non-tachycardic, WBC 15.6, Hgb 10.2 - s/p EGS AND IR Consult, IR drainage 11/15 - 30ccs of purulent fluid was aspirated - Recommend Flexeril and Lidocaine patch for pain pain control; ordered - Culture grew bacteroides - Drain output decreasing Drain flushes BID Transition IV Zosyn 3.375 mg q6hr to PO Augmentin 875-125 mg BID for 8 additional days Continue pain control with acetaminophen and motrin, PRN flexeril, lidocaine patches /10 by score Continue bowel regimen with miralax #Preeclampsia with severe features - s/p 24hrs Mg at OSH - s/p IV labet 20mg @ 2317 on 11/14; IV labet 40mg @ 0100 on 11/15 - 24hr BPs 120-140s/80s Continue regimen: Adalat 30mg BID, Labetalol 200 mg BID #T2DM - Admit HgbA1c 10 - Not insulin previously - Post-prandials blood sugars elevated; fasting 80 - S/p Insulin administration education Current regimen Metformin 1000 mg daily and Lantus 14u at bedtime Arrange to receive glucose monitoring supplies #Hx Bipolar disorder - Patient reports taking adderall 20mg BID, and aprazolam PRN - OARRS report with no evidence of the above prescriptions in the last year Continue Lamictal 25 mg daily #Limited care, +Utox - 11/06/2024 tox positive for amphetamine, benzodiazepines, ecstasy, opioids. Opioids potentially due to anesthesia during C/S. SW consulted to arrange transportation #) - s/p pLTCS due to abruption, EBL >1000, received pRBCs per patient. - Rh+/Rubella equivical MMR ordered - Formula feeding, baby in NICU at outside facility - Contraception: none - 11/06/24 preliminary HIV Ab screen reactive, VL <20 at OSH. 11/15/24 HIV antibody on admit negative. #) DVT Prophylaxis Encourage SCDs and ambulation Continue Lovenox 40mg every day Disposition: Discharge today with close follow up with General Surgery and her OB team. Sarahy Estevez MD MPH COMPUTER OPERATIONS TECHNICIAN PGY-1 Normal [facility] TOX SCREEN W/CONFIRM - OB/GY NOrdered By: Antwan Mike on 11-18-2024 Amphetamines Ql (U) Negative Cutoff: 1000 ng/mL [facility] Barbiturates Screen Ql (U) Negative Cutoff: 200 ng/mL [facility] Benzodiazepines Ql (U) Negative Cutof f: 200 ng/mL [facility] Benzoylecgonine Screen Ql (U) Negative Cutoff: 300 ng/mL [facility] Ethanol Screen Ql (U) Negative Cutoff : 10 mg/dL [facility] fentaNYL Screen Ql (U) Negative Cutof f: 1 ng/mL [facility] HYDROmorphone cutoff Confirm (U) [Mass/Vol] Positive Abnormal Cutoff: 300 ng/mL [facility] Interpretation and review of laboratory results Abnormal [facility] Methadone Screen Ql (U) Negative Cutoff: 300 ng/mL [facility] Morphine Confirm (U) [Moles/Vol] Positive Abnormal Cutoff: 300 ng/mL [facility] Opiates Confirm Ql (U) Positive Abnormal Cutof f: 300 ng/mL [facility] oxyCODONE Ql (U) Negative Cutoff: 100 ng/mL [facility] Comment on above: Oxycodone and metabo lites of Oxycodone (Oxymorphone, Noroxycodone, and Noroxymorphone) are measured/detected in this assay method. Phencyclidine Ql (U) Negative Cutoff: 25 ng/mL [facility] Tetrahydrocannabinol Screen Ql (U) Negative Cutoff: 50 ng/mL [facility] Screen results are reported as positive (at or above the cutoff) or negative (below the cutoff). The LC-MS/MS testing (if applicable) was developed and its performance characteristics determined by [facility] in a manner consistent with CLIA requirements. This test has not been cleared or approved by the U.S. Food and Drug Administration; however, the FDA has determined that such clearance or approval is not necessary. [facility] ANAEROBIC CULTURE, MISCOrder ed By: Renetta Weiss on 11-17-2024 Bacteria identified Anaer cx Nom (Unsp spec) Positive Abnormal [facility] Bacteria identified Anaer cx Nom (Unsp spec) Anaerobic culture yields Bacteroides ovatus (B. fragilis Group) [facility] Interpretation and review of laboratory results Abnormal [facility] The organism belongs to the Bacteroides fragilis group which are beta-lactmase producers; therefore Beta-lactmase testing will not be performed for this organism. It should be considered resistant to penicillin, ampicillin and amoxicillin. [facility] CBC WITH DIFFERENTIALOrdered By: Nishant Whitaker on 11-17-2024 Erythrocyte distribution width (RBC) [Ratio] 17.2 % High 11.5 - 14.5 % [facility] Hematocrit (Bld) [Volume fraction] 30.9 % Low 36.0 - 46.0 % [facility] Hemoglobin (Bld) [Mass/Vol] 10.3 g/dL Low 12.0 - 15.0 g/dL [facility] MCH (RBC) [Entitic mass] 26.8 pg 26.0 - 34.0 pg [facility] MCHC (RBC) [Mass/Vol] 33.5 g/dL 32.0 - 35.9 g/dL [facility] MCV (RBC) [Entitic vol] 80 fL 80 - 100 fL [facility] Platelet mean volume (Bld) [Entitic vol] 6.4 fL Low 7.5 - 11.2 fL [facility] Platelets (Bld) [#/Vol] 428 10*3/uL High 150 - 400 K/uL [facility] RBC (Bld) [#/Vol] 3.87 10*6/uL Low [facility] WBC (Bld) [#/Vol] 11.7 10*3/uL High 4.5 - 11.5 K/uL [facility] CBC WITH DIFFERENTIALon 10-30 Erythrocyte distribution width (RBC) [Ratio] 17.2 % High 11.5-14.5 [facility] Comment on above: Performed By: ###Alexei GARRETT MDIFF ####[facility] [id number] [place], [place], Hematocrit (Bld) [Volume fraction] 30.9 % Low 36.0-46.0 [facility] Comment on above: Performed By: ###Alexei GARRETT MDIFF ####[facility] [id number] [place], [place], Hemoglobin (Bld) [Mass/Vol] 10.3 g/dL Low 12.0-15.0 [facility] Comment on above: Performed By: ###Alexei GARRETT MDIFF ####[facility] [id number] [place], MCH (RBC) [Entitic mass] 26.8 pg Normal 26.0-34.0 [facility] Comment on above: Performed By: ###SRIKANTH MEI ####[facility] [id number] [place], [place], MCHC (RBC) [Mass/Vol] 33.5 g/dL Normal 32.0-35.9 [facility] Comment on above: Performed By: ###SRIKANTH MEI ####S PATHOLOGY [id number] [place], MCV (RBC) [Entitic vol] 80 fL Normal 80-100 [facility] Comment on above: Performed By: #### SRIKANTH FORBES ####[facility] [id number] [place], Platelet mean volume (Bld) [Entitic vol] 6.4 fL Low 7.5-11.2 [facility] Comment on above: Performed By: ###SRIKANTH MEI ####[facility] [id number] [place], Platelets (Bld) [#/Vol] 428 10*3/uL High 150-400 [facility] Comment on above: Performed By: ###SRIKANTH MEI ####S PATHOLOGY [id number] [place], RBC (Bld) [#/Vol] 3.87 10*6/uL Low 4.00-5.20 [facility] Comment on above: Performed By: ###SRIKANTH MEI ####S PATHOLOGY [id number] [place], WBC (Bld) [#/Vol] 11.7 10*3/uL High 4.5-11.5 [facility] Comment on above: Performed By: ###SRIKANTH MEI ####S PATHOLOGY [id number] [place], [place], Care Plan Noteon 11-17-2024 Planner Authentication Interface Message Text Problem: Routine Care: Goal: Patient care will be managed and maintained throughout hospital stay per unit specific routine care procedure Outcome: Progressing Problem: Hypertensive Disorder in : Goal: Risk for seizure in will be minimized Outcome: Progressing Problem: Fluid and Electrolyte Imbalance: Goal: Adequate fluid and electrolyte balance will be achieved and maintained Outcome: Progressing Problem: Infection: Goal: Will be free of signs and symptoms of infection Outcome: Progressing Problem: Coping: Goal: Ability to identify and develop effective coping behavior will improve and/or be maintained Outcome: Progressing Problem: Knowledge Deficit: Goal: Ability to make informed decisions regarding treatment will improve Outcome: Progressing Problem: Acute Pain: Goal: Ability to identify pain intensity on a pain scale and rate it consistently will be achieved and maintained Outcome: Progressing Goal: Acceptable level of pain which allows the patient to achieve functional outcome goals Outcome: Progressing Goal: Ability to identify factors that manage or decrease pain will be achieved Outcome: Progressing Problem: Safety: Goal: Patient will remain free of falls during hospital stay Outcome: Progressing Goal: Free from injury during hospitalization Outcome: Progressing Problem: Discharge Planning: Goal: Discharge needs of the adult patient will be met Outcome: Progressing Normal [facility] GLUCOSE, FINGERSTICK-IN BREANNEI Rico 11-17-2024 Glucose [Mass/Vol] 157 mg/dL High 74 - 109 mg/dL [facility] Interpretation and review of laboratory results Abnormal [facility] Glucose [Mass/Vol] 157 mg/dL High 74-109 [facility] Comment on above: Performed By: #### 8 [id number] #### NURSING GLUCOSE PROGRAM [address] [place], [address] Glucose [Mass/Vol] 70 mg/dL Low 74 - 109 mg/dL [facility] Interpretation and review of laboratory results Abnormal [facility] Glucose [Mass/Vol] 70 mg/dL Low 74-109 [facility] Comment on above: Performed By: #### 8 2948 ####NURSING GLUCOSE [id number] [place], [address] Glucose [Mass/Vol] 90 mg/dL 74 - 109 mg/dL [facility] Interpretation and review of laboratory results Normal [facility] Glucose [Mass/Vol] 90 mg/dL Normal 74-109 [facility] Comment on above: Performed By: #### 8 2948 ####NURSING GLUCOSE [id number] [place], [address] Glucose [Mass/Vol] 86 mg/dL 74 - 109 mg/dL [facility] Interpretation and review of laboratory results Normal [facility] Glucose [Mass/Vol] 86 mg/dL Normal 74-109 [facility] Comment on above: Performed By: #### 8 2948 ####NURSING GLUCOSE [id number] [place], [address] Glucose [Mass/Vol] 80 mg/dL 74 - 109 mg/dL [facility] Interpretation and review of laboratory results Normal [facility] Glucose [Mass/Vol] 80 mg/dL Normal 74-109 [facility] Comment on above: Performed By: #### 8 2948 ####NURSING GLUCOSE [id number] [place], [address] Laboratory - Blood bankon ABO and Rh group Nom (Bld) Blood group A Rh(D) positive [facility] MANUAL DIFF AND MORPHon 10-30 Anisocytosis Ql (Bld) Slight [facility] [place] Cells Counted Total (Bld) [#] 100 {cells} [facility] Lymphocytes (Bld) [#/Vol] 0.82 10*3/uL Low 1.00 - 4.80 K/uL [facility] Lymphocytes/100 WBC (Bld) 7 % Low 24.0 - 44.0 % [facility] Metamyelocyte # 0.12 K/uL High NINF - 0.01 K/uL [facility] Metamyelocytes/100 WBC (Bld) 1 % High NINF - 0 % [facility] Monocytes (Bld) [#/Vol] 0.23 10*3/uL 0.20 - 1.00 K/uL [facility] Monocytes/100 WBC (Bld) 2 % 2.0 - 11.0 % [facility] Myelocyte # 0.23 K/uL High NINF - 0.01 K/uL [facility] Myelocytes 2 % High NINF - 0 % [facility] Neutrophils (Bld) [#/Vol] 10.3 10*3/uL High 1.50 - 8.00 K/uL [facility] Neutrophils/100 WBC (Bld) 88 % High 31.0 - 76.0 % [facility] Ovalocytes LM Ql (Bld) Few [facility] ANISOCYTOSIS Slight Normal [facility] Comment on above: Performed By: #### C SRIKANTH GARRETT ####S PATHOLOGY [id number] [place], [place], CELLS COUNTED TOTAL # IN BLOOD 100 Normal [facility] Comment on above: Performed By: #### SRIKANTH FORBES ####[facility] [id number] [place], [place], LYMPHOCYTES % BY MANUAL COUNT 7.0 % Low 24.0-44.0 [facility] Comment on above: Performed By: #### SRIKANTH FORBES ####[facility] [id number] [place], LYMPHOCYTES ABS BY MANUAL COUNT 0.82 K/uL Low 1.00-4.80 [facility] Comment on above: Performed By: #### SRIKANTH FORBES ####S PATHOLOGY [id number] [place], METAMYELOCYTES % BY MANUAL COUNT 1 % High <0 [facility] Comment on above: Performed By: #### SRIKANTH FORBES ####S PATHOLOGY [id number] [place], METAMYELOCYTES ABS BY MANUAL COUNT 0.12 K/uL High <0.01 [facility] Comment on above: Performed By: #### SRIKANTH FORBSE ####S PATHOLOGY [id number] [place], MONOCYTES % BY MANUAL COUNT 2.0 % Normal 2.0-11.0 [facility] Comment on above: Performed By: #### SRIKANTH FORBES ####[facility] [id number] [place], MONOCYTES ABS BY MANUAL COUNT 0.23 K/uL Normal 0.20-1.00 [facility] Comment on above: Performed By: #### SRIKANTH FORBES ####[facility] [id number] [place], MYELOCYTES % BY MANUAL COUNT 2 % High <0 [facility] Comment on above: Performed By: #### SRIKANHT FORBES ####[facility] [id number] [place], MYELOCYTES ABS BY MANUAL COUNT 0.23 K/uL High <0.01 [facility] Comment on above: Performed By: #### SRIKANTH FORBES ####S PATHOLOGY [id number] [place], NEUTROPHILS % BY MANUAL COUNT 88.0 % High 31.0-76.0 [facility] Comment on above: Performed By: #### SRIKANTH FORBES ####S PATHOLOGY [id number] [place], NEUTROPHILS ABS BY MANUAL COUNT 10.30 K/uL High 1.50-8.00 [facility] Comment on above: Performed By: #### SRIKANTH FORBES ####S PATHOLOGY [id number] [place], [place], OVALOCYTES Few Normal [facility] Comment on above: Performed By: #### SRIKANTH FORBES ####S PATHOLOGY [id number] [place], [place], No Panel InformationOrdered By: Nishant Whitaker on 11-17-2024 Interpretation and review of laboratory results Abnormal [facility] Progress Noteson 11-17-2024 Planner Authentication Interface Message Text SW Coverage Note SW continuing to follow due to consult from medical team received 11/15 for JOE concerns. SW met with pt at bedside this AM to discuss JOE resources and supports. Pt denied any JOE hx, citing any narcotics she has taken have been prescribed to her by doctors during hospitalizations and denied positive tox screens. Pt reported living with her boyfriend in the [place] area (pt's baby is admitted to local hospital there). Pt reports feeling safe at home and having all infant supplies. Pt denied futher SDOH concerns except need for transportation to follow up medical care, as boyfriend works and cannot transport her to for follow up care during the daytime. Pt lives outside of [facility]. Pt is currently uninsured and needs financial assessment. Pt reports she met with a Swer at OSH in [place] and completed a Medicaid lazaro. Per FYI notes, admitting attempted to see pt but was not able to meet with her. SW provided phone number for financial counseling for pt to follow up with for Rating vs. Follow up on Medicaid lazaro to see if pt received a pending #. Demi Lang, LUPE, MLSP, INSURANCE DEFENSE ATTORNEY PRN [employer]aste[employer] Operator Normal [facility] Progress Notes - NoteWritero n 11-17-2024 Planner Authentication Interface Message Text Educated pt on a diabetic diet including amounts needed from each food group. Provided pt with pamphlets from [employer]. Pt verbalized an understanding. Normal [facility] TYPE AND SCREENon 11-17-2024 Blood group antibody screen Ql Negative [facility] ABO and Rh group Nom (Bld) Blood group A Rh(D) positive Normal [facility] Comment on above: Performed By: #### T S #### [facility] [address] [place], [place], ABSC INT Negative Normal [facility] Comment on above: Performed By: #### T S #### [facility] [address] [place], [place], Care Plan Noteon 11-16-2024 Planner Authentication Interface Message Text Problem: Routine Care: Goal: Patient care will be managed and maintained throughout hospital stay per unit specific routine care procedure Outcome: Progressing Pt with VS and temp Q4 hrs. I AND O's Q4. House diet. BS per protocol. Up to BR with assist. Meds per orders. Problem: Hypertensive Disorder in : Goal: Risk for seizure in will be minimized Outcome: Progressing B/P this AM 132/86. Adalat and Labetalol given PO per orders. Problem: Fluid and Electrolyte Imbalance: Goal: Adequate fluid and electrolyte balance will be achieved and maintained Outcome: Progressing Pt tolerating PO fluids. Urine output WNL. Will continue to monitor. Problem: Infection: Goal: Will be free of signs and symptoms of infection Outcome: Progressing Pt afebrile. Abdomen extremely tender. Pt receiving IV antibiotics per orders. Pt draining small amount of purulent drainage (10cc this 4 hrs) from R side drain. Problem: Coping: Goal: Ability to identify and develop effective coping behavior will improve and/or be maintained Outcome: Progressing Pt with flat affect. Resting much of this AM. Pt is currently alone. Problem: Knowledge Deficit: Goal: Ability to make informed decisions regarding treatment will improve Outcome: Progressing Pt verbalized understanding of POC. Dr. Samuels at bedside this AM to answer all questions. Emotional support provided. Problem: Acute Pain: Goal: Ability to identify pain intensity on a pain scale and rate it consistently will be achieved and maintained Outcome: Progressing Pt able to rate pain using numeric pain scale without difficulty. Goal: Acceptable level of pain which allows the patient to achieve functional outcome goals Outcome: Progressing Pt c/o HERNADEZ pain 6/10 on pain scale. Pt given Periactin PO and Reglan IV to help with HERNADEZ. Pt rating abdominal pain and R sided incisional pain at drain site 7/10. Pt given 2 Lidocaine patches around drain bandage. Will give both Tylenol and Ibuprofen at 1030 as ordered. Goal: Ability to identify factors that manage or decrease pain will be achieved Outcome: Progressing Pt with lights off and quiet room environment at this time. Problem: Safety: Goal: Patient will remain free of falls during hospital stay Outcome: Progressing Safe environment maintained. Call gomez within reach. Side rails up x2. Bed in lowest, locked position. Goal: Free from injury during hospitalization Outcome: Progressing Pt remains injury free during this hospitalization. Purposeful hourly rounding continues. Problem: Discharge Planning: Goal: Discharge needs of the adult patient will be met Outcome: Progressing Pt to be d/c'd to home when medically stable and with physician order. Pt aware of POC. Discussed with Dr. Samuels this AM. Normal [facility] GLUCOSE, FINGERSTICK-IN OFFI CEon 11-16-2024 Glucose [Mass/Vol] 152 mg/dL High 74 - 109 mg/dL [facility] Interpretation and review of laboratory results Abnormal [facility] Glucose [Mass/Vol] 152 mg/dL High 74-109 [facility] Comment on above: Performed By: #### 3 [id number] #### [facility] GLUCOSE [address], [address] Glucose [Mass/Vol] 243 mg/dL High 74 - 109 mg/dL [facility] Comment on above: Notified BENTLEY POLLOCK MD Specimen Sent to Lab Interpretation and review of laboratory results Abnormal [facility] Glucose [Mass/Vol] 243 mg/dL High 74-109 [facility] Comment on above: Result Comment: Genoveva nunez RN, APN, MD Specimen Sent to Lab Performed By: #### 7 [id number] ####NURSING GLUCOSE [id number] [facility] [place], [address] Glucose [Mass/Vol] 184 mg/dL High 74 - 109 mg/dL [facility] Comment on above: Notified BENTLEY POLLOCK MD Follow Protocol Interpretation and review of laboratory results Abnormal [facility] Glucose [Mass/Vol] 184 mg/dL High 74-109 [facility] Comment on above: Result Comment: Genoveva nunez RN, APN, MD Follow Protocol Performed By: #### 8 2948 ####NURSING GLUCOSE [id number] [place], [address] Glucose [Mass/Vol] 225 mg/dL High 74 - 109 mg/dL [facility] Interpretation and review of laboratory results Abnormal [facility] Glucose [Mass/Vol] 225 mg/dL High 74-109 [facility] Comment on above: Performed By: #### [facility] #### [facility] [address] [facility] [place] [place] [address] Glucose [Mass/Vol] 97 mg/dL 74 - 109 mg/dL [facility] Interpretation and review of laboratory results [facility] Glucose [Mass/Vol] 97 mg/dL Normal 74-109 [facility] Comment on above: Performed By: #### 8 2948 ####NURSING GLUCOSE [id number] [place], [address] Progress Noteson 11-16-2024 Planner Authentication Interface Message Text ------- GENERAL INFORMATION ------ EMERGENCY GENERAL SURGERY NOTE Patient Name: BERNADETTE Faust Admission Date: 11/14/2024 Patient seen and examined on 11/16/2024 ----- INTERVAL HISTORY/EVENTS --- Background Narrative: Ms Faust is a 29 yo F with a hx of Type II DM and pre-eclampsia who underwent an emergent at 34 weeks for placental abruption (11/06- Baby becky castillo- baby still in NICU in [facility]). She was worked up at an OSH for RUQ abdominal pain and found to have a RUQ fluid collection con cering for an intra-abdominal abscess. She was transferred to [facility] for possible IR drainage of this collection. Hospital Course/Procedures: 11/15- Transfer from [place], IR drain placed with 30 mL purulent fluid aspirated likely related to infected hematoma Events in last 24 hours: No acute events overnight. Patient continues to report abdominal pain with palpation, though non-peritonitic. Tolerating PO intake, passing flatus this morning. Not pumping or , remains in NICU. PHYSICAL EXAM Vitals: Vital sign ranges over the past 24 hours (retrieved 11/16/2024 at 8:25 AM): Tmax (24 hours): 98.2 ???F (36.8 ???C) Pulse Av.3 Min: 79 Max: 102 Systolic (24hrs), Av , Min:113 , Max:139 Diastolic (24hrs), Av, Min:66, Max:91 No data recorded Resp Av.3 Min: 14 Max: 24 SpO2 Av.6 % Min: 93 % Max: 99 % 24 Hour Input/Output In: 675 [I.V.:675] Out: 3185 [Urine:3075; Drainage:110] Net: -[id number] PHYSICAL EXAM GENERAL: Laying in bed, no acute distress NEURO: GCS 15, no focal deficits. Reporting headache. CARDIOVASCULAR: RRR; Radial/DP pulses palpable to palpation. Euvolemic, no peripheral edema PULMONARY: Breathing easily on RA, no use of accessory muscles ABDOMINAL: Diffusely tender to palpation; abdomen is distended though remains soft. Non-peritonitic. RUQ drain with small amount of purulent drainage. Well-healing transverse incision, no s/s of infection EXTREMITIES: Moves all extremities, ambulatory SKIN: Warm, dry LABORATORY RESULTS (LAST 24 HOURS) CBC/PT/INR 11/15/2024 11:30 AM WBC 14.5 RBC 3.56 Hgb 9.6 Hct 28.9 MCV 81 RDW 17.2 Plt 457 Basic Metabolic Panel No lab values to display. Arterial Blood Gases None IMAGING RESULTS - Last 24 hours (PERSONALLY REVIEWED) CT ABDOMEN/PELVIS W/ CONTRAST EXAMINATION: CT ABDOMEN/PELVIS W/ CONTRAST 11/15/2024 01:07 PM CLINICAL HISTORY: Abdominal pain; concern for bowel perf postoperative ASSOCIATED DIAGNOSIS: Postprocedural intraabdominal abscess (HCC) Postprocedural intraabdominal abscess (HCC) ORDERING PROVIDER: JUANY MUHAMMAD TECHNOLOGISTS NOTE: Patient was panicked during her cat scan, to the point she was not listening to instructions and arguing with the technologists of what to do. Moving around and hollering at the top of her lungs, screaming at us to hurry up but was unwilling to let us do what we needed to do in a timely fashion to get her set up for her scan. We explained multiple times what we needed to do and why it was ordered the way it was. Patient eventually let us do our job to get the best images possible for her situation. COMPARISON: Compared to the prior CT of the abdomen and pelvis dated 11/14/2024. TECHNIQUE: Contiguous axial images were obtained through the abdomen and pelvis from the level of the diaphragmatic domes through the pubic symphysis following bolus administration of intravenous contrast. MPR sagittal and coronal reconstructions were obtained from the axial data. Before infusion of intravenous contrast, radiology personnel investigated the possibility of an allergic history and of any history of reaction to iodinated contrast material. Contrast Protocol: Omnipaque 350 [>or =100lb] 100 ml [<100 lb] 1 ml per 1 lb. INTRA-PROCEDURE MEDS: iohexol (OMNIPAQUE) 300 MG/ML injection 50 mL Route: Rectal iohexol (OMNIPAQUE) 300 MG/ML injection 50 mL Route: Oraliohexol (OMNIPAQUE) 350 MG/ML injection 100 mL Route: Intravenous Push FINDINGS: Included images of the lower thorax: There is mild patchy subsegmental airspace opacity within the posterior inferior recesses of both lower lobes that is greater on the left consistent with atelectasis. The remaining visualized lung bases are clear and interstitial markings are normal with no evidence of pleural disease. The visualized cardiac structures are grossly normal. Hepatobiliary: The liver is normal in size and shape and mildly decreased in density with respect to the spleen. There is no evidence of focal lesions or abnormal enhancement and the liver is unchanged and o (more content not included)... Normal [facility] AEROBIC WOUND CULTUREon 10-30 AEROBIC WOUND CULTURE C PYOG: Normal Skin tasha isolated GRAM STAIN: 4+ Polymorphonuclear Leukocytes No Squamous Epithelial Cells seen Mixed polymicrobial tasha seen Normal [facility] Comment on above: Order Comment: Organ isms observed in a gram stain but do not demonstrate growth in culture may be non-viable due to interfering substances (antibiotics) or may be anaerobic. Performed By: #### C PYOG ####[facility] [id number] [facility] [place], [place] ANAEROBIC CULTURE, MISCon ANAEROBIC CULTURE, [facility] [place] ANRBC: Positive Culture Report BACTEROIDES OVATUS (B. FRAGILIS GROUP) Anaerobic culture yields Bacteroides ovatus (B. fragilis Group) Normal [facility] Comment on above: Order Comment: The organism belongs to the Bacteroides fragilis group which are beta-lactmase producers; therefore Beta-lactmase testing will not be performed for this organism. It should be considered resistant to penicillin, ampicillin and amoxicillin. Performed By: #### C ANRBC #### [facility] [address] [facility] [place], [place] [address] BASIC METABOLIC PANELon 10-30 Anion gap [Moles/Vol] 15 mmol/L Normal 10-20 [facility] Comment on above: Performed By: #### 8 2948 #### NURSING GLUCOSE PROGRAM [address] [place], [address] Calcium [Mass/Vol] 7.9 mg/dL Low 8.6-10.3 [facility] Comment on above: Performed By: #### 8 2948 #### NURSING GLUCOSE PROGRAM [address] [place], [address] Chloride [Moles/Vol] 101 mmol/L Normal 98-107 [facility] Comment on above: Performed By: #### 8 2948 #### NURSING GLUCOSE PROGRAM [address] [place], [address] CO2 [Moles/Vol] 27 mmol/L Normal 21-31 [facility] Comment on above: Performed By: #### 8 2948 #### NURSING GLUCOSE PROGRAM [address] [place], [address] Creatinine [Mass/Vol] 0.67 mg/dL Normal 0.60-1.20 [facility] Comment on above: Performed By: #### 8 2948 #### NURSING GLUCOSE PROGRAM [address] [place], [address] ESTIMATED GFR (CKD-EPI) 120 mL/min/1.73sqm Normal >=60 [facility] Comment on above: Result Comment: 2020 CKD EPI Equation using Creatinine without Race Comment: Estimated glomerular filtration rate (eGFR) is calculated without a race coefficient. Values should be interpreted in the context of the patient's full clinical presentation. Reference: 1. Servando C, Moiz M, Mary GROSS, et al.. A Unifying Approach for GFR Estimation: Recommendations of the NKF-ASN Task Force on Reassessing the Inclusion of Race in Diagnosing Kidney Disease. [place] Journal of Kidney Diseases 202;79(2):268-88.e1. 2. N Engl J Med 1 Vol. 385 Issue 19 Pages 3167-2820 Performed By: #### 8 2948 #### NURSING GLUCOSE PROGRAM [address] [place], [address] Glucose [Mass/Vol] 211 mg/dL High 74-109 [facility] Comment on above: Performed By: #### 8 2948 #### NURSING GLUCOSE PROGRAM [address] [place], [address] Potassium [Moles/Vol] 3.9 mmol/L Normal 3.5-5.0 [facility] Comment on above: Performed By: #### 8 2948 #### NURSING GLUCOSE PROGRAM [address] [place], [address] Sodium [Moles/Vol] 139 mmol/L Normal 136-145 [facility] Comment on above: Performed By: #### 8 2948 #### NURSING GLUCOSE PROGRAM [address] [place], [address] Urea nitrogen [Mass/Vol] 9 mg/dL Normal 7-25 [facility] Comment on above: Performed By: #### 8 2948 #### NURSING GLUCOSE PROGRAM [address] [place], [address] Basic metabolic 2000 panelon 11-15-2024 Anion gap [Moles/Vol] 15 mmol/L 10 - 20 [facility] Calcium [Mass/Vol] 7.9 mg/dL Low 8.6 - 10. 3 mg/dL [facility] Chloride [Moles/Vol] 101 mmol/L 98 - 10 7 mmol/L [facility] CO2 [Moles/Vol] 27 mmol/L 21 - 31 mmol/L [facility] Creatinine [Mass/Vol] 0.67 mg/dL 0.60 - 1.20 mg/dL [facility] GFR/1.73 sq M.predicted CKD-EPI (S/P/Bld) [Vol rate/Area] 120 - PINF [facility] Comment on above: 2020 CKD EPI Equatio n using Creatinine without Race Comment: Estimated glomerular filtration rate (eGFR) is calculated without a race coefficient. Values should be interpreted in the context of the patient's full clinical presentation. Reference: 1. Servando C, Moiz M, Mary DC, et al.. A Unifying Approach for GFR Estimation: Recommendations of the NKF-ASN Task Force on Reassessing the Inclusion of Race in Diagnosing Kidney Disease. [place] Journal of Kidney Diseases 202;79(2):268-88.e1. 2. N Engl J Med 2020 Vol. 385 Issue 19 Pages 1970-0120 Glucose [Mass/Vol] 211 mg/dL High 74 - 109 mg/dL [facility] Potassium [Moles/Vol] 3.9 mmol/L 3.5 - 5.0 mmol/L [facility] Sodium [Moles/Vol] 139 mmol/L 136 - 145 mmol/L [facility] Urea nitrogen [Mass/Vol] 9 mg/dL 7 - 25 mg/dL [facility] C-PEPTIDE, SERUMon C peptide [Mass/Vol] 1.23 ng/mL 0.81 - 3.85 ng/mL [facility] Interpretation and review of laboratory results Normal [facility] CPEP 1.23 ng/mL Normal 0.81-3.85 [facility] Comment on above: Performed By: #### 8 2948 #### NURSING GLUCOSE PROGRAM [address], [address] CBC W/Diff, Automatedon 10-30 PATH REV Reviewed Normal [facility] Comment on above: Result Comment: Neut rophilic leukocytosis with left shift.Microcytic anemia.Clinical correlation necessary.Brian Rivera M.D. 11/15/24 AMENDED REPORT 11/15/24 1413 PATH REV previously reported as: February Performed By: #### L 100.0100, L500.4050, L501.2450 ####[facility] [id number] [place], [address] CBC WITH DIFFERENTIALOrdered By: Denzel Begum on 11-15-2024 Erythrocyte distribution width (RBC) [Ratio] 17.2 % High 11.5 - 14.5 % [facility] Hematocrit (Bld) [Volume fraction] 28.9 % Low 36.0 - 46.0 % [facility] Hemoglobin (Bld) [Mass/Vol] 9.6 g/dL Low 12.0 - 15.0 g/dL [facility] MCH (RBC) [Entitic mass] 26.9 pg 26.0 - 34.0 pg [facility] MCHC (RBC) [Mass/Vol] 33.1 g/dL 32.0 - 35.9 g/dL [facility] MCV (RBC) [Entitic vol] 81 fL 80 - 100 fL [facility] Platelet mean volume (Bld) [Entitic vol] 7.3 fL Low 7.5 - 11.2 fL [facility] Platelets (Bld) [#/Vol] 457 10*3/uL High 150 - 400 K/uL [facility] RBC (Bld) [#/Vol] 3.56 10*6/uL Low [facility] WBC (Bld) [#/Vol] 14.5 10*3/uL High 4.5 - 11.5 K/uL [facility] CBC WITH DIFFERENTIALon 10-30 Erythrocyte distribution width (RBC) [Ratio] 17.2 % High 11.5-14.5 [facility] Comment on above: Performed By: #### SRIKANTH FORBES ####[facility] [id number] [place], [place], Hematocrit (Bld) [Volume fraction] 28.9 % Low 36.0-46.0 [facility] Comment on above: Performed By: #### SRIKANTH FORBES ####[facility] [id number] [place] [address], Hemoglobin (Bld) [Mass/Vol] 9.6 g/dL Low 12.0-15.0 [facility] Comment on above: Performed By: #### SRIKANTH FORBES ####S PATHOLOGY [id number] [place], [place], MCH (RBC) [Entitic mass] 26.9 pg Normal 26.0-34.0 [facility] Comment on above: Performed By: #### SRIKANTH FORBES ####[facility] PATH[facility] [id number] [place], [place], MCHC (RBC) [Mass/Vol] 33.1 g/dL Normal 32.0-35.9 [facility] Comment on above: Performed By: ###SRIKANTH MEI ####S PATHOLOGY [id number] [place], [place], MCV (RBC) [Entitic vol] 81 fL Normal 80-100 [facility] Comment on above: Performed By: #### SRIKANTH FORBES ####S PATHOLOGY [id number] [place], [place], Platelet mean volume (Bld) [Entitic vol] 7.3 fL Low 7.5-11.2 [facility] Comment on above: Performed By: #### SRIKANTH FORBES ####S PATHOLOGY [id number] [place], [place], Platelets (Bld) [#/Vol] 457 10*3/uL High 150-400 [facility] Comment on above: Performed By: #### SRIKANTH FORBES ####[facility] [id number] [place], [place], RBC (Bld) [#/Vol] 3.56 10*6/uL Low 4.00-5.20 [facility] Comment on above: Performed By: #### SRIKANTH FORBES ####[facility] [id number] [place], [place], WBC (Bld) [#/Vol] 14.5 10*3/uL High 4.5-11.5 [facility] Comment on above: Performed By: #### SRIKANTH FORBES ####[facility] PATHOLOGY [id number] [place] [address], Erythrocyte distribution width (RBC) [Ratio] 16.9 % High 11.5-14.5 [facility] Comment on above: Performed By: #### T S #### [facility] [address] [place] [address], Hematocrit (Bld) [Volume fraction] 30.7 % Low 36.0-46.0 [facility] Comment on above: Performed By: #### T S #### [facility] [address] [place] [address], Hemoglobin (Bld) [Mass/Vol] 10.2 g/dL Low 12.0-15.0 [facility] Comment on above: Performed By: #### T S #### [facility] [address] [place] [address], MCH (RBC) [Entitic mass] 26.4 pg Normal 26.0-34.0 [facility] Comment on above: Performed By: #### T S #### [facility] [address] [place] [address], MCHC (RBC) [Mass/Vol] 33.0 g/dL Normal 32.0-35.9 [facility] Comment on above: Performed By: #### T S #### [facility] [address] [place] [address], MCV (RBC) [Entitic vol] 80 fL Normal 80-100 [facility] Comment on above: Performed By: #### T S #### [facility] [address] [place] [address], Platelet mean volume (Bld) [Entitic vol] 6.2 fL Low 7.5-11.2 [facility] Comment on above: Performed By: #### T S #### [facility] [address] [place] [address], Platelets (Bld) [#/Vol] 360 10*3/uL Normal 150-400 [facility] Comment on above: Performed By: #### T S #### [facility] [address] [place] [address], RBC (Bld) [#/Vol] 3.85 10*6/uL Low 4.00-5.20 [facility] Comment on above: Performed By: #### T S #### [facility] [address] [place] [address], WBC (Bld) [#/Vol] 15.6 10*3/uL High 4.5-11.5 [facility] Comment on above: Performed By: #### T S #### [facility] [address] [place] [address], CBC WITH DIFFERENTIALOrdered By: Antonia Akbar on 11-15-2024 Erythrocyte distribution width (RBC) [Ratio] 16.9 % High 11.5 - 14.5 % [facility] Hematocrit (Bld) [Volume fraction] 30.7 % Low 36.0 - 46.0 % [facility] Hemoglobin (Bld) [Mass/Vol] 10.2 g/dL Low 12.0 - 15.0 g/dL [facility] MCH (RBC) [Entitic mass] 26.4 pg 26.0 - 34.0 pg [facility] MCHC (RBC) [Mass/Vol] 33 g/dL 32.0 - 35.9 g/dL [facility] (RBC[facility] [Entitic vol] 80 fL 80 - 100 fL [facility] Platelet mean volume (Bld) [Entitic vol] 6.2 fL Low 7.5 - 11.2 fL [facility] Platelets (Bld) [#/Vol] 360 10*3/uL 150 - 400 K/uL [facility] RBC (Bld) [#/Vol] 3.85 10*6/uL Low [facility] WBC (Bld) [#/Vol] 15.6 10*3/uL High 4.5 - 11.5 K/uL [facility] CONFIRMATION ABO/RHon 2024 [facility] ABO and Rh group Nom (Bld) Blood group A Rh(D) positive Normal [facility] Comment on above: Performed By: #### A REILLY ####[facility] [id number] [place], [address] CT ABDOMEN/PELVIS W/ CONTRAS Ton 11-15-2024 CT ABDOMEN/PELVIS W/ CONTRAST EXAMINATION: CT ABDOMEN/PELVIS W/ CONTRAST 11/15/2024 01:07 PM CLINICAL HISTORY: Abdominal pain; concern for bowel perf postoperative ASSOCIATED DIAGNOSIS: Postprocedural intraabdominal abscess (HCC) Postprocedural intraabdominal abscess (HCC) ORDERING PROVIDER: [employer] NOTE: Patient was panicked during her cat scan, to the point she was not listening to instructions and arguing with the technologists of what to do. Moving around and hollering at the top of her lungs, screaming at us to hurry up but was unwilling to let us do what we needed to do in a timely fashion to get her set up for her scan. We explained multiple times what we needed to do and why it was ordered the way it was. Patient eventually let us do our job to get the best images possible for her situation. COMPARISON: Compared to the prior CT of the abdomen and pelvis dated 11/14/2024. TECHNIQUE: Contiguous axial images were obtained through the abdomen and pelvis from the level of the diaphragmatic domes through the pubic symphysis following bolus administration of intravenous contrast. MPR sagittal and coronal reconstructions were obtained from the axial data. Before infusion of intravenous contrast, radiology personnel investigated the possibility of an allergic history and of any history of reaction to iodinated contrast material. Contrast Protocol: Omnipaque 350 [>or =100lb] 100 ml [<100 lb] 1 ml per 1 lb. INTRA-PROCEDURE MEDS: iohexol (OMNIPAQUE) 300 MG/ML injection 50 mL Route: Rectal iohexol (OMNIPAQUE) 300 MG/ML injection 50 mL Route: Oraliohexol (OMNIPAQUE) 350 MG/ML injection 100 mL Route: Intravenous Push FINDINGS: Included images of the lower thorax: There is mild patchy subsegmental airspace opacity within the posterior inferior recesses of both lower lobes that is greater on the left consistent with atelectasis. The remaining visualized lung bases are clear and interstitial markings are normal with no evidence of pleural disease. The visualized cardiac structures are grossly normal. Hepatobiliary: The liver is normal in size and shape and mildly decreased in density with respect to the spleen. There is no evidence of focal lesions or abnormal enhancement and the liver is unchanged and otherwise normal. The gallbladder is distended with no evidence of gallstones or inflammatory change and the intrahepatic and extrahepatic bile ducts are normal. Pancreas: The pancreas is normal in size and shape with no evidence of focal lesions, abnormal enhancement or ductal dilatation. Spleen: The spleen is normal in size, shape and density with no evidence of focal lesions or abnormal enhancement. Adrenal Glands: The adrenal glands are normal in size and shape with no evidence of focal lesions or abnormal enhancement. Kidneys, ureters, and bladder: The kidneys are normal in size and shape with no evidence of focal lesions, abnormal enhancement or renal stones. The visualized intrarenal and extrarenal collecting systems and ureters are grossly normal with no evidence of ureterolithiasis. The bladder is moderately collapsed and grossly normal with no evidence of bladder stones. Abdominal and pelvic vasculature: The abdominal aorta is normal in caliber and course with no evidence of atherosclerotic change. The celiac, superior mesenteric, renal and iliac arteries are normal. The inferior vena cava and portal venous system are normal. GI tract: The stomach is moderately collapsed and grossly normal. The duodenum is not opacified with oral contrast and grossly normal. The small bowel is opacified with oral contrast and normal with no evidence of obstruction or inflammatory change. There is mild diverticulosis of the redundant sigmoid colon within the right lower abdomen with no evidence of diverticulitis. A rectal tube is in place and rectal contrast is present to the level of the cecum, mixing with a moderate amount of gas and stool. There is no extravasation of the oral or rectal contrast and the large bowel and rectum are normal. The appendix is not visualized and there is a relatively stable lobulated gas and fluid collection within the anterolateral right abdomen just below the liver and anterolateral to the cecum (axial image 77 and coronal image 55) measuring 90 x 40 x 99 mm that moderately compresses the cecum and hepatic flexure. Peritoneum and retroperitoneum: There is a trace amount free fluid within the the right subhepatic region within both pericolic gutters. There is a small amount of free fluid within the cul-de-sac and posterior pelvis surrounding the uterus. There is no evidence of free air throughout the abdomen and pelvis. Lymph Nodes: There is no evidence of adenopathy throughout the abdomen and pelvis. Uterus and adnexa: The uterus is enlarged, measuring 138 x 75 x 110 mm and the endometrial canal measures 16 mm in thickness with heterogeneous internal density. The visualized ovaries and adnexa are grossly normal. Visualized musculoskeletal s (more content not included)... Normal [facility] CT Abdomen and Pelvis W cont rast Grayson 11-15-2024 EXAMINATION: CT ABDOMEN/PELVIS W/ CONTRAST 11/15/2024 01:07 PM CLINICAL HISTORY: Abdominal pain; concern for bowel perf postoperative ASSOCIATED DIAGNOSIS: Postprocedural intraabdominal abscess (HCC) Postprocedural intraabdominal abscess (HCC) ORDERING PROVIDER: [employer] NOTE: Patient was panicked during her cat scan, to the point she was not listening to instructions and arguing with the technologists of what to do. Moving around and hollering at the top of her lungs, screaming at us to hurry up but was unwilling to let us do what we needed to do in a timely fashion to get her set up for her scan. We explained multiple times what we needed to do and why it was ordered the way it was. Patient eventually let us do our job to get the best images possible for her situation. COMPARISON: Compared to the prior CT of the abdomen and pelvis dated 11/14/2024. TECHNIQUE: Contiguous axial images were obtained through the abdomen and pelvis from the level of the diaphragmatic domes through the pubic symphysis following bolus administration of intravenous contrast. MPR sagittal and coronal reconstructions were obtained from the axial data. Before infusion of intravenous contrast, radiology personnel investigated the possibility of an allergic history and of any history of reaction to iodinated contrast material. Contrast Protocol: Omnipaque 350 [>or =100lb] 100 ml [<100 lb] 1 ml per 1 lb. INTRA-PROCEDURE MEDS: iohexol (OMNIPAQUE) 300 MG/ML injection 50 mL Route: Rectal iohexol (OMNIPAQUE) 300 MG/ML injection 50 mL Route: Oraliohexol (OMNIPAQUE) 350 MG/ML injection 100 mL Route: Intravenous Push FINDINGS: Included images of the lower thorax: There is mild patchy subsegmental airspace opacity within the posterior inferior recesses of both lower lobes that is greater on the left consistent with atelectasis. The remaining visualized lung bases are clear and interstitial markings are normal with no evidence of pleural disease. The visualized cardiac structures are grossly normal. Hepatobiliary: The liver is normal in size and shape and mildly decreased in density with respect to the spleen. There is no evidence of focal lesions or abnormal enhancement and the liver is unchanged and otherwise normal. The gallbladder is distended with no evidence of gallstones or inflammatory change and the intrahepatic and extrahepatic bile ducts are normal. Pancreas: The pancreas is normal in size and shape with no evidence of focal lesions, abnormal enhancement or ductal dilatation. Spleen: The spleen is normal in size, shape and density with no evidence of focal lesions or abnormal enhancement. Adrenal Glands: The adrenal glands are normal in size and shape with no evidence of focal lesions or abnormal enhancement. Kidneys, ureters, and bladder: The kidneys are normal in size and shape with no evidence of focal lesions, abnormal enhancement or renal stones. The visualized intrarenal and extrarenal collecting systems and ureters are grossly normal with no evidence of ureterolithiasis. The bladder is moderately collapsed and grossly normal with no evidence of bladder stones. Abdominal and pelvic vasculature: The abdominal aorta is normal in caliber and course with no evidence of atherosclerotic change. The celiac, superior mesenteric, renal and iliac arteries are normal. The inferior vena cava and portal venous system are normal. GI tract: The stomach is moderately collapsed and grossly normal. The duodenum is not opacified with oral contrast and grossly normal. The small bowel is opacified with oral contrast and normal with no evidence of obstruction or inflammatory change. There is mild diverticulosis of the redundant sigmoid colon within the right lower abdomen with no evidence of diverticulitis. A rectal tube is in place and rectal contrast is present to the level of the cecum, mixing with a moderate amount of gas and stool. There is no extravasation of the oral or rectal contrast and the large bowel and rectum are normal. The appendix is not visualized and there is a relatively stable lobulated gas and fluid collection within the anterolateral right abdomen just below the liver and anterolateral to the cecum (axial image 77 and coronal image 55) measuring 90 x 40 x 99 mm that moderately compresses the cecum and hepatic flexure. Peritoneum and retroperitoneum: There is a trace amount free fluid within the the right subhepatic region within both pericolic gutters. There is a small amount of free fluid within the cul-de-sac and posterior pelvis surrounding the uterus. There is no evidence of free air throughout the abdomen and pelvis. Lymph Nodes: There is no evidence of adenopathy throughout the abdomen and pelvis. Uterus and adnexa: The uterus is enlarged, measuring 138 x 75 x 110 mm and the endometrial canal measures 16 mm in thickness with heterogeneous internal density. The visualized ovaries and adne (more content not included)... RADIOLOGY Rogelio Benito MD - 11/15/2024 EXAMINATION: CT ABDOMEN/PELVIS W/ CONTRAST 11/15/2024 01:07 PM CLINICAL HISTORY: Abdominal pain; concern for bowel perf postoperative ASSOCIATED DIAGNOSIS: Postprocedural intraabdominal abscess (HCC) Postprocedural intraabdominal abscess (HCC) ORDERING PROVIDER: [employer] NOTE: Patient was panicked during her cat scan, to the point she was not listening to instructions and arguing with the technologists of what to do. Moving around and hollering at the top of her lungs, screaming at us to hurry up but was unwilling to let us do what we needed to do in a timely fashion to get her set up for her scan. We explained multiple times what we needed to do and why it was ordered the way it was. Patient eventually let us do our job to get the best images possible for her situation. COMPARISON: Compared to the prior CT of the abdomen and pelvis dated 11/14/2024. TECHNIQUE: Contiguous axial images were obtained through the abdomen and pelvis from the level of the diaphragmatic domes through the pubic symphysis following bolus administration of intravenous contrast. MPR sagittal and coronal reconstructions were obtained from the axial data. Before infusion of intravenous contrast, radiology personnel investigated the possibility of an allergic history and of any history of reaction to iodinated contrast material. Contrast Protocol: Omnipaque 350 [>or =100lb] 100 ml [<100 lb] 1 ml per 1 lb. INTRA-PROCEDURE MEDS: iohexol (OMNIPAQUE) 300 MG/ML injection 50 mL Route: Rectal iohexol (OMNIPAQUE) 300 MG/ML injection 50 mL Route: Oraliohexol (OMNIPAQUE) 350 MG/ML injection 100 mL Route: Intravenous Push FINDINGS: Included images of the lower thorax: There is mild patchy subsegmental airspace opacity within the posterior inferior recesses of both lower lobes that is greater on the left consistent with atelectasis. The remaining visualized lung bases are clear and interstitial markings are normal with no evidence of pleural disease. The visualized cardiac structures are grossly normal. Hepatobiliary: The liver is normal in size and shape and mildly decreased in density with respect to the spleen. There is no evidence of focal lesions or abnormal enhancement and the liver is unchanged and otherwise normal. The gallbladder is distended with no evidence of gallstones or inflammatory change and the intrahepatic and extrahepatic bile ducts are normal. Pancreas: The pancreas is normal in size and shape with no evidence of focal lesions, abnormal enhancement or ductal dilatation. Spleen: The spleen is normal in size, shape and density with no evidence of focal lesions or abnormal enhancement. Adrenal Glands: The adrenal glands are normal in size and shape with no evidence of focal lesions or abnormal enhancement. Kidneys, ureters, and bladder: The kidneys are normal in size and shape with no evidence of focal lesions, abnormal enhancement or renal stones. The visualized intrarenal and extrarenal collecting systems and ureters are grossly normal with no evidence of ureterolithiasis. The bladder is moderately collapsed and grossly normal with no evidence of bladder stones. Abdominal and pelvic vasculature: The abdominal aorta is normal in caliber and course with no evidence of atherosclerotic change. The celiac, superior mesenteric, renal and iliac arteries are normal. The inferior vena cava and portal venous system are normal. GI tract: The stomach is moderately collapsed and grossly normal. The duodenum is not opacified with oral contrast and grossly normal. The small bowel is opacified with oral contrast and normal with no evidence of obstruction or inflammatory change. There is mild diverticulosis of the redundant sigmoid colon within the right lower abdomen with no evidence of diverticulitis. A rectal tube is in place and rectal contrast is present to the level of the cecum, mixing with a moderate amount of gas and stool. There is no extravasation of the oral or rectal contrast and the large bowel and rectum are normal. The appendix is not visualized and there is a relatively stable lobulated gas and fluid collection within the anterolateral right abdomen just below the liver and anterolateral to the cecum (axial image 77 and coronal image 55) measuring 90 x 40 x 99 mm that moderately compresses the cecum and hepatic flexure. Peritoneum and retroperitoneum: There is a trace amount free fluid within the the right subhepatic region within both pericolic gutters. There is a small amount of free fluid within the cul-de-sac and posterior pelvis surrounding the uterus. There is no evidence of free air throughout the abdomen and pelvis. Lymph Nodes: There is no evidence of adenopathy throughout the abdomen and pelvis. Uterus and adnexa: The uterus is enlarged, measuring 138 x 75 x 110 mm and the endometrial canal measures 16 mm in thickness w (more content not included)... [facility] Radiology [facility] observation (narrative) [facility] Pel[facility] W cont rast IVOrdered By: Rogelio Benito on 11-15-2024 [facility]: CT Guidance for drainage of abscess and placement of drainage catheter of Unspecified body regionon 11-15-2024 Radiology Study observation (narrative) [facility] Care Plan Noteon 11-15-2024 Planner Authentication Interface Message Text Problem: Routine Care: Goal: Patient care will be managed and maintained throughout hospital stay per unit specific routine care procedure 11/15/20241922 by Jeff Renteria, BENTLEY Outcome: Progressing 11/15/2024 115 by Jeff Renteria RN Outcome: Progressing Problem: Hypertensive Disorder in : Goal: Risk for seizure in will be minimized 11/15/20241922 by Jeff Renteria, BENTLEY Outcome: Progressing 11/15/2024 115 by Jeff Renteria RN Outcome: Progressing Problem: Fluid and Electrolyte Imbalance: Goal: Adequate fluid and electrolyte balance will be achieved and maintained 11/15/20241922 by Jeff Renteria RN Outcome: Progressing 11/15/2024 115 by Jeff Renteria RN Outcome: Progressing Problem: Infection: Goal: Will be free of signs and symptoms of infection 11/15/20241922 by Jeff Renteria RN Outcome: Progressing 11/15/2024 115 by Jeff Renteria RN Outcome: Progressing Problem: Coping: Goal: Ability to identify and develop effective coping behavior will improve and/or be maintained 11/15/20241922 by Jeff Renteria RN Outcome: Progressing 11/15/2024 115 by Jeff Renteria RN Outcome: Progressing Problem: Knowledge Deficit: Goal: Ability to make informed decisions regarding treatment will improve 11/15/20241922 by Jeff Renteria RN Outcome: Progressing 11/15/2024 115 by Jeff Renteria RN Outcome: Progressing Problem: Acute Pain: Goal: Ability to identify pain intensity on a pain scale and rate it consistently will be achieved and maintained 11/15/20241922 by Jeff Renteria RN Outcome: Progressing 11/15/20241150 by Jeff Renteria RN Outcome: Progressing Goal: Acceptable level of pain which allows the patient to achieve functional outcome goals 11/15/20241922 by Jeff Renteria RN Outcome: Progressing 11/15/20241150 by Jeff Renteria RN Outcome: Progressing Goal: Ability to identify factors that manage or decrease pain will be achieved 11/15/20241922 by Jeff Renteria RN Outcome: Progressing 11/15/2024 115 by Jeff Renteria RN Outcome: Progressing Problem: Safety: Goal: Patient will remain free of falls during hospital stay 11/15/20241922 by Jeff Renteria RN Outcome: Progressing 11/15/2024 115 by Jeff Renteria RN Outcome: Progressing Goal: Free from injury during hospitalization 11/15/20241922 by Jeff Renteria RN Outcome: Progressing 11/15/2024 1151 by Jeff Renteria RN Outcome: Progressing Problem: Discharge Planning: Goal: Discharge needs of the adult patient will be met 11/15/2024 1923 by Jeff Renteria RN Outcome: Progressing 11/15/2024 1151 by Jeff Renteria RN Outcome: Progressing Normal [employer] Planner Authentication Interface Message Text Problem: Routine Care: Goal: Patient care will be managed and maintained throughout hospital stay per unit specific routine care procedure Outcome: Progressing Problem: Hypertensive Disorder in : Goal: Risk for seizure in will be minimized Outcome: Progressing Problem: Fluid and Electrolyte Imbalance: Goal: Adequate fluid and electrolyte balance will be achieved and maintained Outcome: Progressing Problem: Infection: Goal: Will be free of signs and symptoms of infection Outcome: Progressing Problem: Coping: Goal: Ability to identify and develop effective coping behavior will improve and/or be maintained Outcome: Progressing Problem: Acute Pain: Goal: Ability to identify pain intensity on a pain scale and rate it consistently will be achieved and maintained Outcome: Progressing Goal: Acceptable level of pain which allows the patient to achieve functional outcome goals Outcome: Progressing Goal: Ability to identify factors that manage or decrease pain will be achieved Outcome: Progressing Problem: Safety: Goal: Patient will remain free of falls during hospital stay Outcome: Progressing Goal: Free from injury during hospitalization Outcome: Progressing Problem: Discharge Planning: Goal: Discharge needs of the adult patient will be met Outcome: Progressing Normal [employer] Planner Authentication Interface Message Text Problem: Routine Care: Goal: Patient care will be managed and maintained throughout hospital stay per unit specific routine care procedure Outcome: Progressing Unit routine initiated and maintained. Pt oriented to room, call gomez, and nurse Problem: Hypertensive Disorder in : Goal: Risk for seizure in will be minimized Outcome: Progressing Blood pressures normotensive at this time. Will report any severe range blood pressures to MDs and follow protocol. Problem: Fluid and Electrolyte Imbalance: Goal: Adequate fluid and electrolyte balance will be achieved and maintained Outcome: Progressing IVF initiated and maintained. Will keep fluids titrated to 75ml/hr Problem: Infection: Goal: Will be free of signs and symptoms of infection Outcome: Progressing Hand hygiene maintained; pt remains afebrile. Will continue to assess vital signs per protocol Problem: Coping: Goal: Ability to identify and develop effective coping behavior will improve and/or be maintained Outcome: Progressing Pt utilizing effective coping mechanisms and showing appropriate coping behaviors. Pt encouraged to verbalize feelings and ask for assistance as needed. Will continue to monitor. Problem: Knowledge Deficit: Goal: Ability to make informed decisions regarding treatment will improve Outcome: Progressing Pt asking appropriate questions at this time. Providing education as needed Problem: Acute Pain: Goal: Ability to identify pain intensity on a pain scale and rate it consistently will be achieved and maintained Outcome: Progressing Goal: Acceptable level of pain which allows the patient to achieve functional outcome goals Outcome: Progressing Goal: Ability to identify factors that manage or decrease pain will be achieved Outcome: Progressing Problem: Safety: Goal: Patient will remain free of falls during hospital stay Outcome: Progressing Goal: Free from injury during hospitalization Outcome: Progressing Side rails up times two, bed locked in lowest position, and call gomez within reach,. Problem: Discharge Planning: Goal: Discharge needs of the adult patient will be met Outcome: Progressing Plan for monitoring in High risk. Normal [employer] Consultson 11-15-2024 Planner Authentication Interface Message Text SW consult received for: Substance abuse resources/interventions SW attempted to meet with pt. Unable to meet as pt was out for CT scan. Will follow up later today. Addendum: 3:20pm SW attempted to meet with pt again. Pt was going off the floor for a procedure. Genesis Moran [facility] [place] Social Work [phone] Normal [employer] DAXKO Interface Message Text PSYCHIATRY CONSULT LIAISON NOTE PROVIDER REQUESTING CONSULT: Adelfo Nice MD [phone] Reason for Consult: hx Bipolar, reported medications and chart meds discrepancy (medication reconciliation) IDENTIFICATION: BERNADETTE Faust is a 29 year old White female HISTORY OF PRESENT ILLNESS Hospital Course: A 29-year-old at postoperative day 9 following an emergent at 34 weeks for placental abruption and preeclampsia, presents with acutely worsening right upper quadrant pain after transfer from [facility]. Chart reviewed, and from a medical perspective, the patient is being treated for a suspected intra-abdominal abscess with plans for IR drainage, ongoing IV zosyn, and imaging follow-up. She is normotensive on antihypertensives after severe preeclampsia and is day 9 following an emergent complicated by significant blood loss and limited care. A prior reactive HIV screen was negative on repeat testing, and toxicology was positive for for amphetamine, benzodiazepines, ecstasy, opioids. Opioids potentially due to anesthesia during C/S. Psychiatric Interview: The patient was interviewed at the bedside and reported being in pain but stated she is psychiatrically stable. She denies any new or worsening symptoms of depression or anxiety. The patient follows with a psychiatrist in [place], [place], who prescribes lamotrigine 200 mg daily for bipolar disorder, as well as amphetamine-dextroamphe tamine and alprazolam. She has not taken lamotrigine for over five days and is agreeable to restarting at 25 mg with titration by her outpatient provider. She refilled her last prescriptions for amphetamine-dextroamphe tamine and alprazolam a few months ago but is unsure why they do not appear in her OARRS report. She has not taken either medication in several days and denies any symptoms of benzodiazepine withdrawal. The patient states she splits her time between [place] and [place], does not currently have a psychiatric provider in [place], but has been attempting to establish care there. Her prescriptions are written and filled in [place]. She denies suicidal ideation, homicidal ideation, or auditory/visual hallucinations. She reports no difficulties with sleep, appetite, or medication side effects. PRN's Received: - none for agitation or anxiety PER CHART REVIEW [facility] 11/06/24 - 11/09/24 The patient was hospitalized at [facility] from November 06 to November 09, 2024, following an emergent placental abruption at 34 weeks gestation. She underwent an urgent performed by Dr. Elaine Jones due to distress and hemorrhaging. Postoperatively, she developed severe preeclampsia, anemia secondary to blood loss, and uncontrolled diabetes (HbA1c 9%). Initial labs also revealed renal insufficiency, electrolyte imbalances, and a positive HIV screen. The patient was briefly admitted to the ICU, received a unit of blood, and was stabilized on antihypertensives (nifedipine, labetalol) and diabetes management (metformin XR). She was discharged on postoperative day 3 with instructions to follow up with a PCP. The infant, born prematurely, remains in the NICU. OARRS/NarxCare Scores: 11/09/2024 11/09/2024 1 Oxycodone Hcl (Ir) 5 Mg Tablet 28.00 7 Dec [id number] Banda ([id number]) 0 PSYCHIATRIC REVIEW OF SYSTEMS: As per HPI Suicide Assessment Tool C-SSRS Appling-Suicide Severity Rating Scale Able to complete Appling-Suicide Severity Rating Scale with Patient?: Yes 1) Wish to be : No 2) Current suicidal thoughts: No 6) C-SSRS Suicidal Behavior: No Risk of Suicide: Negative Screen Did patient score moderate or high risk on the C-SSRS?: No SAFE-T PSYCHIATRIC HISTORY: Psychiatric diagnoses: bipolar disorder (self reported), ADHD, anxiety Outpatient psychiatrist/counselor: Dr Morales [place], [place] (self reported) Inpatient psychiatric admissions (when/why?): none Previous suicide attempts: none Medications tried in the past: unknown Current outpatient medications: per patient, Lamictal 200 mg daily, alprazolam prn for anxiety, and Adderall for ADHD. Hasn't taken her medication in a week. 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 Normal [employer] Planner Authentication Interface Message Text Attestation signed by Marco Stovall MD at 11/15/2024 1:49 PM Teaching Physician Note: I saw and evaluated the patient. I personally obtained the vizcaino and critical portions of the history and physical exam. I reviewed the resident's documentation and discussed the patient with the resident. I agree with the resident's medical decision making as documented in the resident's note. 29y , POD#9 s/p emergent 1LTCS at 34w for placental abruption, preeclampsia with severe features, admitted for RUQ pain and found to have RUQ fluid collection. Scant care. Transfer initially accepted by surgery, transferred to OB as surgery did not feel surgical intervention warranted. On examination, very tender in RUQ, guarding. On zosyn prior to transfer, will not obtain blood cultures. IR asked to evaluate for potential drainage - IR with concern for bowel perforation. Surgery updated, will repeat CT. T2DM with HbA1c 10 - body habitus not consistent typical T2DM presentation, will obtain c-peptide (currently hypoglycemia) and T1DM antibodies. Start weight-based insulin Preeclampsia: normotensive on nifedipine 30mg BID, labetalol 200mg BID. Aside from RUQ pain, no symptoms but imaging is not consistent with subcapsular hepatic hematoma. Migraines: none currently, no medications currently. Ariane Stovall MD Maternal Medicine, Complex Family Planning Pager: [phone] WATERPROOFER HELPER CONSULT NOTE 11/15/24 6:53 AM PGY-4 S: Patient reporting continued RUQ pain. Denies HERNADEZ, vision changes, chest pain, shortness of breath. Reports bleeding appropriate. For this presented with bleeding, limited to no care. Had been diagnosed with abruption and severe preeclampsia and taken to OR emergently. Received 24 hrs Mg. Presented to ED yesterday for worsening RUQ pain. Had been having difficulty eating/drinking due to pain. O: BP 106/74 (BP Location: left arm) Pulse 75 Temp 98.2 ???F (36.8 ???C) (Oral) Resp 18 SpO2 95% Unknown Gen: NAD Cardio: WWP Resp: breathing comfortably on RA Abd: Soft, tender at RUQ Incision: pfannenstiel incision c/d/i Ext: + edema of bilateral lower extremities, SCDs in place Intake/Output Summary (Last 24 hours) at 11/15/2024 0653 Last data filed at 11/15/2024 0600 Gross per 24 hour Intake 330 ml Output 350 ml Net -20 ml Fingerstick Glucose Glucose 11/15/24 0428 198 11/15/24 0314 203 Comment: Follow Protocol 11/15/24 0039 225 Comment: Follow Protocol Notified RN PHILL MALIK A/P: BERNADETTE Faust is a 29 year old at POD#9 s/p emergent pLTCS at 34wga for abruption and pre-eclampsia with SF here for RUQ pain and RUQ fluid collection concerning for intra-abdominal abscess. #) suspected intra-abdominal abscess - CT AP at OSH with 4.9 x 6.9 x 5.6 cm collection at RUQ/ hemicolon. - images in powershare, plan for formal read today - afebrile, non-tachycardic, WBC 15.6, Hgb 10.2 - s/p EGS consult, recommend IR drainage, no acute surgical intervention indicated - cont IV zosyn - BCx ordered, patient declined this AM - RUQ ultrasound ordered - plan to discuss with IR regarding drainage #) Preeclampsia with severe features -- s/p 24hrs Mg at OSH. -- s/p IV labet 20mg @ 2317 on 11/14 -- s/p IV labet 40mg @ 0100 on 11/15 -- Bps currently normotensive -- current regimen: adalat 30mg BID, labetalol 200mg BID -- no neurological complaints #) T2DM -- HgbA1c on admit 10 -- current regimen metformin 1000 mg daily -- had not been on insulin previously -- blood sugars elevated, plan to start weight based insulin regimen #) Hx Bipolar disorder -- patient reports taking adderall 20mg BID, and aprazolam PRN -- OARRS report with no evidence of the above prescriptions in the last year -- plan for psych consult #) limited care, +Utox -- SW consulted -- 11/06/2024 tox positive for amphetamine, benzodiazepines, ecstasy, opioids. Opioids potentially due to anesthesia during C/S. #) reported hx of TIA vs complex migraine vs MS -- on chart review and neurology note from 2020, no evidence of CVA on imaging and neurology prescribed ajovy for migraines. #) -- s/p pLTCS, EBL >1000, received pRBCs per patient. -- Rhpos/Requiv -- formula feeding, baby in NICU -- Contraception: none -- 11/06/24 preliminary HIV Ab screen reactive, VL <20 at OSH. 11/15/24 HIV antibody on admit negative. #) DVT Prophylaxis -- Lovenox 40mg every day- holding in anticipation of possible IR procedure -- Encourage SCDs and ambulation Juany Muhammad MD COMPUTER OPERATIONS TECHNICIAN PGY-4 Normal [employer] Planner Authentication Interface Message Text Attestation signed by Ronda Wing MD at 11/15/2024 2:56 AM ACS Attending Attestation Teaching Physician Note: I saw and evaluated the patient. I personally obtained the vizcaino and critical portions of the history and physical exam. I reviewed the resident's documentation and discussed the patient with the resident. I agree with the resident's medical decision making as documented in the resident's note. HPI: Ms Faust is a 29 yo F with a hx of Type II DM and pre-eclampsia who underwent an emergent at 34 weeks for placental abruption (11/06- Baby bot- osei- baby still in NICU in [facility]). She was worked up at an OSH for RUQ abdominal pain and found to have a RUQ fluid collection con cering for an intra-abdominal abscess. She was transferred to [facility] for possible IR drainage of this collection. Physical Exam BP 153/97 Pulse 87 Temp 98 ???F (36.7 ???C) (Oral) Resp 18 SpO2 96% Unknown Awake, alert in no acute distress Non labored breathing on room air Regular rate and rhythm Abdomen- soft with moderate tenderness to palpation in the right upper quadrant, well healing lowe transverse incision from No peripheral edema Significant labs/Imaging Wbc- 15.6 CT A/P- right sided intra-abdominal abscess with gas- likely infected hematomas Diagnosis List Intra-abdominal abscess Pre-eclampsia Type II DM Acute abdominal pain Leukocytosis Hyperglycemia Acute blood loss anemia Operative procedures by this team None Assessment and Plan: 29 yo F s/p complicated by placental abruption and 1 L EBL now with right intra-abdominal abscess Collection likely infected hematoma Recommend IR consult for drain placement Start IV antibiotics Send culture from drain No acute general surgery intervention required at this time EGS will follow pending drain placement Management of HTN per obstetrics team Ronda Wing MD ACS Attending Medical Decision Making: Medium Complexity of Problem -Medium- - 1 acute illness with systemic symptoms (intra-abdominal abscess) 2. Data -Medium -independent interpretation of tests during this admission (reviewed CT scan) 3. Risk -High -decision regarding hospitalization [facility] Department of Surgery EMERGENCY GENERAL SURGERY CONSULT NOTE BERNADETTE Faust [id number] Reason for Consultation: Abdominal abscess HPI BERNADETTE Faust is a 29 year old year old female with PMH significant for left breast cancer s/p lumpectomy, MS, prior stroke, recent (11/06/2024) for placental abruption with >1L blood loss, who is presenting as transfer from OSH with right sided intra-abdominal abscess for which EGS was consulted. Reports right-sided abdominal pain since delivery eight days ago, worse over the last 24 hours. Denies fevers, chills, nausea, vomiting. Appetite has been decreased secondary to the pain. Severely constipated post delivery with first bowel movement yesterday (11/14) since delivery on 11/07. PMH Past Medical History: Diagnosis Date Malignant neoplasm of left female breast (HCC) 2017 s/p lumpectomy, s/p 1y tamoxifen Multiple sclerosis (HCC) 2017 ajovy q3mo Stroke (HCC) 2017 dx with MS PSH Past Surgical History: Procedure Laterality Date BREAST LUMPECTOMY Left 2017 DILATION AND CURETTAGE, DX AND /OR THERAPEUTIC (NONOBSTETRICAL) DILATION AND CURETTAGE, DX AND /OR THERAPEUTIC (NONOBSTETRICAL) TONSILLECTOMY AND ADENOIDECTOMY; AGE 12+ Medications: No current outpatient medications Allergies: Patient has no allergy information on record. Family History: family history is not on file. ROS (Bold is Positive) Const: Fevers - Chills - WeightLoss - Sweating - Fatigue HEENT: Headaches - VisionChanges Cardiac: ChestPain - Palpitations Pulm: SOB - Cough (Productive) - Orthopnea GI: Nausea - Vomiting - AbdPain - Diarrhea - Constipation : Dysuria - Frequency - ColorChanges MSK: Pain - Swelling - Weakness Skin: Rash - Itching - Lumps/Bumps - Wounds Neuro: Numbness - Tingling - Dizziness - Falls Heme: Bleeding PHYSICAL EXAM BP 153/97 Pulse 87 Temp 98 ???F (36.7 ???C) (Oral) Resp 18 SpO2 96% Unknown General: Uncomfortable appearing Cardiac: Capillary refill <2 seconds Pulmonary: Comfortable on RA Abdomen: Post-, soft but diffuse tenderness to palpation with palpable mass in right abdomen with overlying redness of the skin. Pfannenstiel incision healing well without erythema or drainage Extremities: Moving all four appropriately Skin: Warm, no lesions Neuro: AOx3 LABS 15.6 10.2 / 360 / 30.7 CBC: 11/15/2024: 12:52 AM 139 101 9 / 211 3.9 27 0.67 BMP: 11/15/2024: 12:52 AM STUDIES ASSESSMENT/PLAN BERNADETTE Faust is a 29 yea (more content not included)... Normal [facility] Diabetes tracking panelon Average glucose Estimated from glycated hemoglobin (Bld) [Mass/Vol] 240 mg/dL [facility] HbA1c (Bld) [Mass fraction] 10 % High 4.0 - 5.6 % [facility] Interpretation and review of laboratory results [facility] FIBRINOGENon 11-15-2024 Fibrin+Fibrinogen fragments (S) [Mass/Vol] 793 mg/dL High 200 - 500 mg/dL [facility] Interpretation and review of laboratory results Abnormal [facility] FIBRINOGEN 793 mg/dL High 200-500 [facility] Comment on above: Performed By: #### A PTT, FIBRINOGEN, PT ####[facility] [id number] [place], [address] GLUCOSE, FINGERSTICK-IN OFFI CEon 11-15-2024 Glucose [Mass/Vol] 150 mg/dL High 74 - 109 mg/dL [facility] Comment on above: Follow Protocol Notified BENTLEY POLLOCK MD Interpretation and review of laboratory results Abnormal [facility] Glucose [Mass/Vol] 150 mg/dL High 74-109 [facility] Comment on above: Result Comment: Foll ow Protocol Notified BENTLEY POLLOCK MD Performed By: #### 8 2948 #### NURSING GLUCOSE PROGRAM [address] [place], [address] Glucose [Mass/Vol] 83 mg/dL 74 - 109 mg/dL [facility] Interpretation and review of laboratory results [facility] Glucose [Mass/Vol] 83 mg/dL Normal 74-109 [facility] Comment on above: Performed By: #### C ANRBC #### [facility] Path[facility] [address] [place] [address] [place], [place] [address] Glucose [Mass/Vol] 137 mg/dL High 74 - 109 mg/dL [facility] Interpretation and review of laboratory results Abnormal [facility] Glucose [Mass/Vol] 137 mg/dL High 74-109 [facility] Comment on above: Performed By: #### T S #### S PATHOLOGY LABORATORY [address] [place], [address] Glucose [Mass/Vol] 213 mg/dL High 74 - 109 mg/dL [facility] Interpretation and review of laboratory results Abnormal [facility] Glucose [Mass/Vol] 213 mg/dL High 74-109 [facility] Comment on above: Performed By: #### C ANRBC #### [facility] [address] [facility] [place], [place] [address] Glucose [Mass/Vol] 128 mg/dL High 74 - 109 mg/dL [facility] Interpretation and review of laboratory results Abnormal [facility] Glucose [Mass/Vol] 128 mg/dL High 74-109 [facility] Comment on above: Performed By: #### 8 2948 ####NURSING GLUCOSE [id number] [place], [address] Glucose [Mass/Vol] 198 mg/dL High 74 - 109 mg/dL [facility] Interpretation and review of laboratory results Abnormal [facility] Glucose [Mass/Vol] 198 mg/dL High 74-109 [facility] Comment on above: Performed By: #### 8 7188 ####NURSING GLUCOSE [id number] [place], [address] Glucose [Mass/Vol] 203 mg/dL High 74 - 109 mg/dL [facility] Comment on above: Follow Protocol Interpretation and review of laboratory results Abnormal [facility] Glucose [Mass/Vol] 203 mg/dL High 74-109 [facility] Comment on above: Result Comment: Arnol jackson Protocol Performed By: #### 8 2947 #### NURSING GLUCOSE PROGRAM [address] [place], [address] Glucose [Mass/Vol] 225 mg/dL High 74 - 109 mg/dL [facility] Comment on above: Follow Protocol Notified BENTLEY POLLOCK MD Interpretation and review of laboratory results Abnormal [facility] Glucose [Mass/Vol] 225 mg/dL High 74-109 [facility] Comment on above: Result Comment: Arnol jackson Protocol Notified BENTLEY POLLOCK MD Performed By: #### 8 6055 #### NURSING GLUCOSE PROGRAM [address] [place], [address] HEMOGLOBIN A1Con 11-15-2024 Glucose [Mass/Vol] 240 mg/dL Normal [facility] Comment on above: Performed By: #### 8 1104 #### NURSING GLUCOSE PROGRAM [address] [place], [address] HbA1c (Bld) [Mass fraction] 10.0 % High 4.0-5.6 [facility] Comment on above: Performed By: #### 8 5119 #### NURSING GLUCOSE PROGRAM [address] [place], [address] HEPATIC FUNCTION PANELon Albumin [Mass/Vol] 2.4 g/dL Low 3.5 - 5.7 g/dL [facility] ALP [Catalytic activity/Vol] 133 U/L High [facility] ALT [Catalytic activity/Vol] 11 U/L [facility] AST [Catalytic activity/Vol] 15 U/L [facility] Bilirubin [Mass/Vol] 0.3 mg/dL 0.3 - 1 .0 mg/dL [facility] Bilirubin.direct [Mass/Vol] 0.07 mg/dL 0.03 - 0.18 mg/dL [facility] Protein [Mass/Vol] 5.3 g/dL Low 6.0 - 8.3 g/dL [facility] Albumin [Mass/Vol] 2.4 g/dL Low 3.5-5.7 [facility] Comment on above: Performed By: #### 8 2948 #### NURSING GLUCOSE PROGRAM [address] [place], [address] ALK 133 IU/L High 34-104 [facility] Comment on above: Performed By: #### 8 2948 #### NURSING GLUCOSE PROGRAM [address] [place], [address] ALT [Catalytic activity/Vol] 11 U/L Normal 7-52 [facility] Comment on above: Performed By: #### 8 2948 #### NURSING GLUCOSE PROGRAM [address] [place], [address] AST [Catalytic activity/Vol] 15 U/L Normal 13-39 [facility] Comment on above: Performed By: #### 8 2948 #### NURSING GLUCOSE PROGRAM [address] [place], [address] Bilirubin [Mass/Vol] 0.3 mg/dL Normal 0.3-1.0 [facility] Comment on above: Performed By: #### 8 2948 #### NURSING GLUCOSE PROGRAM [address] [place], [address] Bilirubin.direct [Mass/Vol] 0.07 mg/dL Normal 0.03-0.18 [facility] Comment on above: Performed By: #### 8 2948 #### NURSING GLUCOSE PROGRAM [address] [place], [address] Protein [Mass/Vol] 5.3 g/dL Low 6.0-8.3 [facility] Comment on above: Performed By: #### 8 2946 #### NURSING GLUCOSE PROGRAM [address] [place], [address] HIV 1 and 2 Ab and HIV 1 p24 Ag panel IAon 11-15-2024 HIV 1+2 Ab+HIV1 p24 Ag IA Ql Non-Reactive Non-Reactive [facility] Comment on above: No laboratory eviden ce for HIV Infection. Negative result does not rule out acute HIV infection. If acute HIV infection is suspected, recommend ordering an HIV-1 RNA quanitification test. Interpretation and review of laboratory results Normal [facility] HIV Information: [place] Rev. code 3701.243(E): This information has been disclosed to you from confidential records protected from disclosure by state law. You shall make no further disclosure of this information without the specific, written, and informed release of the individual to whom it pertains, or as otherwise permitted by state law. A general authorization for the release of medical or other information is not sufficient for the purpose of the release of HIV test results or diagnoses. [facility] HIV AG-AB SCREEN Non-Reactive Normal Non-Reactive [facility] Comment on above: Order Comment: HIV I nformation: ???[place] Rev. code 3701.243(E):This information has been disclosed to you from confidential records protected from disclosure by state law. ???You shall make no further disclosure of this information without the specific, written, and informed release of the individual to whom it pertains, or as otherwise permitted by state law. ???A general authorization for the release of medical or other information is not sufficient for the purpose of the release of HIV test results or diagnoses. Result Comment: No l aboratory evidence for HIV Infection. Negative result does not rule out acute HIV infection. If acute HIV infection is suspected, recommend ordering an HIV-1 RNA quanitification test. Performed By: #### 8 2948 #### NURSING [address], [address] HIV-1 RNA PCR, QUANTITATIVEo n 11-15-2024 HIV 1 RNA SAE+probe [#/Vol] Not detected [facility] This test is perform ed by a quantitative polymerase chain reaction (PCR) method (kaz 5800 System HIV-1, [employer] [place], [place].) that is intended to be used in conjunction with clinical presentation and other laboratory markers of disease progress for the clinical management of HIV-1 infected patients. It is not suitable for use as a screening test for HIV or as a diagnostic test to confirm the presence of HIV infection. The analytical range for this standard method is from 20 copies/mL to 10,000,000 copies/mL. One copy of HIV-1 RNA is equivalent to 1.7+ 0.1 International Units (IU) based on the WHO 1st International Standard for HIV-1 RNA for Nucleic Acid-Based Techniques (FABIÁN) ([facility] 97/656). [facility] INSULINon 11-15-2024 Insulin Free Qn 5.2 [facility] Interpretation and review of laboratory results Normal [facility] INSUL 5.2 mIU/L Normal 2.0-25.0 [facility] Comment on above: Performed By: #### 8 2948 #### NURSING GLUCOSE PROGRAM [address] [place], [address] INSULIN ANTIBODIESon 025 INSULIN ANTIBODY <0.4 Normal <0.4 [facility] Comment on above: Order Comment: formerly [facility] Address Site ID: [id number] Name: Re[facility]her/[facility]ardo [facility], Address: [address] [place] [id number] Director: Elaina Michelle MD,PhD,ROSARIO Performed By: #### 8 2948 #### NURSING GLUCOSE PROGRAM [address] [place], [address] LACTIC ACIDOrdered By: Danelle Vieira on 11-15-2024 Interpretation and review of laboratory results Normal [facility] Lactate [Moles/Vol] 1.3 mmol/L 0.5 - 1. 6 mmol/L [facility] This test was developed, and its performance characteristics determined by the Department of Pathology of [facility]. It has not been cleared or approved by the FDA. This test is used for clinical purposes only. [facility] LACTIC ACIDon 11-15-2024 CR LACT 1.3 mmol/L Normal 0.5-1.6 [facility] Comment on above: Order Comment: This test was developed, and its performance characteristics determined by the Department of Pathology of [facility]. It has not been cleared or approved by the FDA. This test is used for clinical purposes only. Performed By: #### L ACT ####[facility] PATH[facility] [id number] [place], [place], LDHon 11-15-2024 LDH [Catalytic activity/Vol] 252 U/L [facility] LD 252 IU/L Normal 140-271 [facility] Comment on above: Performed By: #### 8 2948 #### NURSING GLUCOSE PROGRAM [address] [place], [address] Laboratory - Blood bankon ABO and Rh group Nom (Bld) Blood group A Rh(D) positive [facility] MANUAL DIFF AND MORPHon 10-30 ANC 11.61 K/uL [facility] Band form neutrophils/100 WBC (Bld) 3 % NINF - 10 % [facility] Bands # 0.44 K/uL High NINF - 0.01 K/uL [facility] [place] cells LM Ql (Bld) Few [facility] Cells Counted Total (Bld) [#] 100 {cells} [facility] Lymphocytes (Bld) [#/Vol] 2.03 10*3/uL 1.00 - 4.80 K/uL [facility] Lymphocytes/100 WBC (Bld) 14 % Low 24.0 - 44.0 % [facility] Monocytes (Bld) [#/Vol] 0.87 10*3/uL 0.20 - 1.00 K/uL [facility] Monocytes/100 WBC (Bld) 6 % 2.0 - 11.0 % [facility] Neutrophils (Bld) [#/Vol] 11.17 10*3/uL High 1.50 - 8.00 K/uL [facility] Neutrophils/100 WBC (Bld) 77 % High 31.0 - 76.0 % [facility] Ovalocytes LM Ql (Bld) Few [facility] Schistocytes LM Ql (Bld) Few [facility] Spherocytes LM Ql (Bld) Few [facility] Stomatocytes LM Ql (Bld) Few [facility] ANC 11.61 K/uL Normal [facility] Comment on above: Performed By: #### Mike GARRETT MDIFF ####S PATHOLOGY [id number] [place], [place], BANDS % BY MANUAL COUNT 3 % Normal <=10 [facility] Comment on above: Performed By: #### SRIKANTH FORBES ####[facility] PATH[facility] [id number] [place], BANDS ABS BY MANUAL COUNT 0.44 K/uL High <0.01 [facility] Comment on above: Performed By: #### SRIKANTH FORBES ####[facility] PATH[facility] [id number] [place], [place], RHONDA CELLS Few Normal [facility] Comment on above: Performed By: #### SRIKANTH FORBES ####[facility] [id number] [place], CELLS COUNTED TOTAL # IN BLOOD 100 Normal [facility] Comment on above: Performed By: #### SRIKANTH FORBES ####S PATHOLOGY [id number] [place], FRAGMENTED RBC Few Normal [facility] Comment on above: Performed By: #### SRIKANTH FORBES ####[facility] [id number] [place], LYMPHOCYTES % BY MANUAL COUNT 14.0 % Low 24.0-44.0 [facility] Comment on above: Performed By: #### SRIKANTH FORBES ####S PATHOLOGY [id number] [place], LYMPHOCYTES ABS BY MANUAL COUNT 2.03 K/uL Normal 1.00-4.80 [facility] Comment on above: Performed By: #### SRIKANTH FORBES ####S PATHOLOGY [id number] [place], MONOCYTES % BY MANUAL COUNT 6.0 % Normal 2.0-11.0 [facility] Comment on above: Performed By: ###SRIKANTH MEI ####[facility] PATH[facility] [id number] [place], MONOCYTES ABS BY MANUAL COUNT 0.87 K/uL Normal 0.20-1.00 [facility] Comment on above: Performed By: #### SRIKANTH FORBES ####[facility] [id number] [place], NEUTROPHILS % BY MANUAL COUNT 77.0 % High 31.0-76.0 [facility] Comment on above: Performed By: ###SRIKANTH MEI ####S PATHOLOGY [id number] [place], NEUTROPHILS ABS BY MANUAL COUNT 11.17 K/uL High 1.50-8.00 [facility] Comment on above: Performed By: #### SRIKANTH FORBES ####[facility] PATHOLOGY [id number] [place], OVALOCYTES Few Normal [facility] Comment on above: Performed By: #### SRIKANTH FORBES ####[facility] PATHOLOGY [id number] [place], SPHEROCYTES Few Normal [facility] Comment on above: Performed By: ###SRIKANTH MEI ####[facility] PATHOLOGY [id number] [place], STOMATOCYTES Few Normal [facility] Comment on above: Performed By: ###SRIKANTH MEI ####[facility] PATHOLOGY [id number] [place], Anisocytosis Ql (Bld) Slight [facility] Cells Counted Total (Bld) [#] 100 {cells} [facility] Eosinophils (Bld) [#/Vol] 0.16 10*3/uL 0.00 - 0.70 K/uL [facility] Eosinophils/100 WBC (Bld) 1 % 0.1 - 4.0 % [facility] Lymphocytes (Bld) [#/Vol] 2.34 10*3/uL 1.00 - 4.80 K/uL [facility] Lymphocytes/100 WBC (Bld) 15 % Low 24.0 - 44.0 % [facility] Monocytes (Bld) [#/Vol] 0.47 10*3/uL 0.20 - 1.00 K/uL [facility] Monocytes/100 WBC (Bld) 3 % 2.0 - 11.0 % [facility] Neutrophils (Bld) [#/Vol] 12.64 10*3/uL High 1.50 - 8.00 K/uL [facility] Neutrophils/100 WBC (Bld) 81 % High 31.0 - 76.0 % [facility] Ovalocytes LM Ql (Bld) Few [facility] ANISOCYTOSIS Slight Normal [facility] Comment on above: Performed By: #### T S #### S PATHOLOGY LABORATORY [address] [place] [address], CELLS COUNTED TOTAL # IN BLOOD 100 Normal [facility] Comment on above: Performed By: #### T S #### S PATHOLOGY LABORATORY [address] [place] [address], EOSINOPHILS % BY MANUAL COUNT 1.0 % Normal 0.1-4.0 [facility] Comment on above: Performed By: #### T S #### [facility] PATHOLOGY LABORATORY [address] [place] [address], EOSINOPHILS ABS BY MANUAL COUNT 0.16 K/uL Normal 0.00-0.70 [facility] Comment on above: Performed By: #### T S #### [facility] PATHOLOGY LABORATORY [address] [place] [address], LYMPHOCYTES % BY MANUAL COUNT 15.0 % Low 24.0-44.0 [facility] Comment on above: Performed By: #### T S #### [facility] PATHOLOGY LABORATORY [address] [place] [address], LYMPHOCYTES ABS BY MANUAL COUNT 2.34 K/uL Normal 1.00-4.80 [facility] Comment on above: Performed By: #### T S #### S PATHOLOGY LABORATORY [address] [place] [address], MONOCYTES % BY MANUAL COUNT 3.0 % Normal 2.0-11.0 [facility] Comment on above: Performed By: #### T S #### S PATHOLOGY LABORATORY [address] [place] [address], MONOCYTES ABS BY MANUAL COUNT 0.47 K/uL Normal 0.20-1.00 [facility] Comment on above: Performed By: #### T S #### S PATHOLOGY LABORATORY [address] [place] [address], NEUTROPHILS % BY MANUAL COUNT 81.0 % High 31.0-76.0 [facility] Comment on above: Performed By: #### T S #### [facility] [address] [place], [place], NEUTROPHILS ABS BY MANUAL COUNT 12.64 K/uL High 1.50-8.00 [facility] Comment on above: Performed By: #### T S #### S PATHOLOGY LABORATORY [address] [place], [place], OVALOCYTES Few Normal [facility] Comment on above: Performed By: #### T S #### S PATHOLOGY LABORATORY [address] [place], [place], No Panel InformationOrdered By: Denzel Begum on 11-15-2024 Interpretation and review of laboratory results Abnormal [facility] No Panel InformationOrdered By: Antonia Akbar on 11-15-2024 Interpretation and review of laboratory results Abnormal [facility] No Panel Informationon 11-15 Interpretation and review of laboratory results Normal [facility] Interpretation and review of laboratory results Abnormal [facility] Interpretation and review of laboratory results Normal [facility] PARTIAL THROMBOPLASTIN TIMEo n 11-15-2024 aPTT Coag (Bld) [Time] 27 s [facility] aPTT Coag (Bld) [Time] 27 s Normal 25-37 Th e [facility] Comment on above: Performed By: #### A PTT, FIBRINOGEN, PT ####[facility] PATHOLOGY [id number] [place], [place], PROTHROMBIN TIME AND INRon 0 11-15-2024 INR Coag (PPP) [Relative time] 1.04 {INR} 0.90 - 1.10 [facility] PT Coag (PPP) [Time] 11.7 s [facility] INR Coag (PPP) [Relative time] 1.04 {INR} Normal 0.90-1.10 [facility] Comment on above: Performed By: #### A PTT, FIBRINOGEN, PT ####S PATHOLOGY [id number] [place], PT Coag (PPP) [Time] 11.7 s Normal 9.7-12.9 [facility] Comment on above: Performed By: #### A PTT, FIBRINOGEN, PT ####[facility] [id number] [place], [address] Progress Noteson 11-15-2024 Planner [employer] [employer] Interface Message Text Upon patient leaving room with transport to interventional radiology, patient asked if someone could call support person and update them on what's going on. Patient gave this nurse permission to share and discuss PHI with Samuel Ana at [phone]. If that is not the correct number patient suggested to try calling [phone] The above conversation was shared with Dr Muhammad. Normal [facility] [employer] Interface Message Text Attestation signed by Vitaly Maldonado MD at 11/19/2024 9:53 AM Teaching Physician Note: I saw and evaluated the patient. I personally obtained the vizcaino and critical portions of the history and physical exam. I reviewed the resident's documentation and discussed the patient with the resident. I agree with the resident's medical decision making as documented in the resident's note. Vitaly Maldonado MD Division of Trauma, Critical Care, Garcia, and Emergency General Surgery Department of Surgery [facility] ------- GENERAL INFORMATION ------ EMERGENCY GENERAL SURGERY NOTE Patient Name: BERNADETTE Faust Admission Date: 11/14/2024 Patient seen and examined on 11/15/2024 ----- INTERVAL HISTORY/EVENTS --- Background Narrative: Ms Faust is a 29 yo F with a hx of Type II DM and pre-eclampsia who underwent an emergent at 34 weeks for placental abruption [facility] She was worked up at an OSH for RUQ abdominal pain and found to have a RUQ fluid collection con cering for an intra-abdominal abscess. She was transferred to [facility] for possible IR drainage of this collection. Hospital Course/Procedures: 11/15- transfer from [facility] in last 24 hours: On exam this afternoon patient in distress, tearful about needing to get to the bathroom quickly to urinate. Able to ambulate out of bed, did report some dizziness with ambulation but without signs of chica peritonitis. Tearful with abdominal palpation. Reports severe headache. PHYSICAL EXAM Vitals: Vital sign ranges over the past 24 hours (retrieved 11/15/2024 at 2:16 PM): Tmax (24 hours): 98.2 ???F (36.8 ???C) Pulse Av.9 Min: 75 Max: 105 Systolic (24hrs), Av , Min:106 , Max:170 Diastolic (24hrs), Av, Min:66, Max:112 No data recorded Resp Av.2 Min: 15 Max: 18 SpO2 Av.6 % Min: 94 % Max: 98 % 24 Hour Input/Output In: 405 [I.V.:405] Out: 350 [Urine:350] Net: 55 Physical Exam: General: mild distress, awake HEENT: Moist mucous membranes Cardiac: regular rate per chart review and on exam Pulmonary: Non-labored breathing. Symmetric chest rise. Abdomen: Soft, diffusely tender to palpation, +distended Extremities: Moving all extremities spontaneously Skin: Warm, moist Neuro: Alert and oriented x3 LABORATORY RESULTS (LAST 24 HOURS) CBC/PT/INR 11/15/2024 11/15/2024 11:30 AM 12:52 AM WBC 14.5 15.6 RBC 3.56 3.85 Hgb 9.6 10.2 Hct 28.9 30.7 MCV 81 80 RDW 17.2 16.9 Plt 457 360 aPTT -- 27 INR -- 1.04 Basic Metabolic Panel 11/15/2024 12:52 AM Na 139 K 3.9 Cl 101 CO2 27 Gap 15 Glu 211 BUN 9 Cr 0.67 Ca 7.9 Arterial Blood Gases None IMAGING RESULTS - Last 24 hours (PERSONALLY REVIEWED) CT ABDOMEN/PELVIS W/ CONTRAST EXAMINATION: CT ABDOMEN/PELVIS W/ CONTRAST 11/15/2024 01:07 PM CLINICAL HISTORY: Abdominal pain; concern for bowel perf postoperative ASSOCIATED DIAGNOSIS: Postprocedural intraabdominal abscess (HCC) Postprocedural intraabdominal abscess (HCC) ORDERING PROVIDER: JUANY MUHAMMAD TECHNOLOGISTS NOTE: Patient was panicked during her cat scan, to the point she was not listening to instructions and arguing with the technologists of what to do. Moving around and hollering at the top of her lungs, screaming at us to hurry up but was unwilling to let us do what we needed to do in a timely fashion to get her set up for her scan. We explained multiple times what we needed to do and why it was ordered the way it was. Patient eventually let us do our job to get the best images possible for her situation. COMPARISON: Compared to the prior CT of the abdomen and pelvis dated 11/14/2024. TECHNIQUE: Contiguous axial images were obtained through the abdomen and pelvis from the level of the diaphragmatic domes through the pubic symphysis following bolus administration of intravenous contrast. MPR sagittal and coronal reconstructions were obtained from the axial data. Before infusion of intravenous contrast, radiology personnel investigated the possibility of an allergic history and of any history of reaction to iodinated contrast material. Contrast Protocol: Omnipaque 350 [>or =100lb] 100 ml [<100 lb] 1 ml per 1 lb. INTRA-PROCEDURE MEDS: iohexol (OMNIPAQUE) 300 MG/ML injection 50 mL Route: Rectal iohexol (OMNIPAQUE) 300 MG/ML injection 50 mL Route: Oraliohexol (OMNIPAQUE) 350 MG/ML injection 100 mL Route: Intravenous Push FINDINGS: Included images of the lower thorax: There is mild patchy subsegment (more content not included)... Normal The [employer] Interface Message Text [phone]: RN at bedside to perform blood cultures. Pt sates she wants someone to use an ultrasound because she has already been poked several times and does not want to be pin cushion. Pt showed RN her arms with several spots of bruising from previous IV attempts at the previous hospital. RN contacted [employer] to attempt, resident requested icu staff nurse to attempt first. RN contacted rapid response team and was told there are three other pts ahead of her and to see if we could attempt them in the mean time. Pt refused icu staff nurse to attempt without ultrasound. Kenan Carrasco MD notified of difficulty getting blood cultures. 0530: RN contacted [employer] to attempt after pt refused any attempt without ultrasound. Anesthesia came to bedside to attempt but was unsuccessful. Kenan Carrasco MD and Jeffrey Streeter MD notified. Okay to discontinue trying at this time and give the pt a break. RN will pass along to dayshift RN to attempt again later in the day. Normal [employer] Interface Message Text 0428: pts repeat blood sugar 198. Kenan Marc MD notified. No new orders at this time. Okay to use this blood sugar reading for fasting blood sugar reading as well. Per Kenan Carrasco MD Normal [employer] Interface Message Text 0314: pt BS 206. 2 units of insulin lispro ordered. Will recheck BS 1 hour after administering. Normal [employer] Message Text ACS Attending Attestation Teaching Physician Note: I saw and evaluated the patient. I personally obtained the vizcaino and critical portions of the history and physical exam. I reviewed the resident's documentation and discussed the patient with the resident. I agree with the resident's medical decision making as documented in the resident's note. HPI: Ms Faust is a 29 yo F with a hx of Type II DM and pre-eclampsia who underwent an emergent at 34 weeks for placental abruption (11/06- Baby bot- osei- baby still in NICU in [facility]). She was worked up at an OSH for RUQ abdominal pain and found to have a RUQ fluid collection con cering for an intra-abdominal abscess. She was transferred to [facility] for possible IR drainage of this collection. Physical Exam BP 153/97 Pulse 87 Temp 98 ???F (36.7 ???C) (Oral) Resp 18 SpO2 96% Unknown Awake, alert in no acute distress Non labored breathing on room air Regular rate and rhythm Abdomen- soft with moderate tenderness to palpation in the right upper quadrant, well healing lowe transverse incision from No peripheral edema Significant labs/Imaging Wbc- 15.6 CT A/P- right sided intra-abdominal abscess with gas- likely infected hematomas Diagnosis List Intra-abdominal abscess Pre-eclampsia Type II DM Acute abdominal pain Leukocytosis Hyperglycemia Acute blood loss anemia Operative procedures by this team None Assessment and Plan: 29 yo F s/p complicated by placental abruption and 1 L EBL now with right intra-abdominal abscess Collection likely infected hematoma Recommend IR consult for drain placement Start IV antibiotics Send culture from drain No acute general surgery intervention required at this time EGS will follow pending drain placement Management of HTN per obstetrics team Ronda Wing MD ACS Attending Medical Decision Making: Medium Complexity of Problem -Medium- - 1 acute illness with systemic symptoms (intra-abdominal abscess) 2. Data -Medium -independent interpretation of tests during this admission (reviewed CT scan) 3. Risk -High -decision regarding hospitalization Normal [facility] [employer] [facility] Progress Notes - NoteWritero n 11-15-2024 Planner Authentication Interface Message Text Pt down to CT. S/P general surgery attending assessed pt. Normal [facility] [employer] [facility] TOX SCREEN W/CONFIRM - OB/GY Non 11-15-2024 ALCOHOL - TOX W/ CONF Negative Normal Cutoff: 10 [facility] [employer] [facility] Comment on above: Order Comment: Scree n results are reported as positive (at or above the cutoff) or negative (below the cutoff).The LC-MS/MS testing (if applicable) was developed and its performance characteristics determined by The [employer] [facility] in a manner consistent with CLIA requirements. This test has not been cleared or approved by the U.S. Food and Drug Administration; however, the FDA has determined that such clearance or approval is not necessary. Performed By: #### o bgyntox ####S PATHOLOGY [id number] [place], [place], AMPH CL Negative Normal Cutoff: 1000 [facility] Comment on above: Order Comment: Scree n results are reported as positive (at or above the cutoff) or negative (below the cutoff).The LC-MS/MS testing (if applicable) was developed and its performance characteristics determined by [facility] [employer] [facility] in a manner consistent with CLIA requirements. This test has not been cleared or approved by the U.S. Food and Drug Administration; however, the FDA has determined that such clearance or approval is not necessary. Performed By: #### o bgyntox ####[facility] PATHOLOGY [id number] [place], [place], SOLA CL Negative Normal Cutoff: 200 [facility] [employer] [facility] Comment on above: Order Comment: Scree n results are reported as positive (at or above the cutoff) or negative (below the cutoff).The LC-MS/MS testing (if applicable) was developed and its performance characteristics determined by [facility] [employer] [facility] in a manner consistent with CLIA requirements. This test has not been cleared or approved by the U.S. Food and Drug Administration; however, the FDA has determined that such clearance or approval is not necessary. Performed By: #### o bgyntox ####[facility] PATHOLOGY [id number] [place], [place], BENZO CL Negative Normal Cutoff: 200 [facility] [employer] [facility] Comment on above: Order Comment: Scree n results are reported as positive (at or above the cutoff) or negative (below the cutoff).The LC-MS/MS testing (if applicable) was developed and its performance characteristics determined by The [employer] [facility] in a manner consistent with CLIA requirements. This test has not been cleared or approved by the U.S. Food and Drug Administration; however, the FDA has determined that such clearance or approval is not necessary. Performed By: #### o bgyntox ####S PATHOLOGY [id number] [place], [place], COCAINE CL- TOX W/ CONF Negative Normal Cutoff: 300 [facility] Comment on above: Order Comment: Scree n results are reported as positive (at or above the cutoff) or negative (below the cutoff).The LC-MS/MS testing (if applicable) was developed and its performance characteristics determined by [facility] in a manner consistent with CLIA requirements. This test has not been cleared or approved by the U.S. Food and Drug Administration; however, the FDA has determined that such clearance or approval is not necessary. Performed By: #### o bgyntox ####[facility] PATHOLOGY [id number] [place], [place], FENTANYL Negative Normal Cutoff: 1 [facility] [employer] [facility] [facility] Comment on above: Order Comment: Scree n results are reported as positive (at or above the cutoff) or negative (below the cutoff).The LC-MS/MS testing (if applicable) was developed and its performance characteristics determined by [facility] [facility] in a manner consistent with CLIA requirements. This test has not been cleared or approved by the U.S. Food and Drug Administration; however, the FDA has determined that such clearance or approval is not necessary. Performed By: #### o bgyntox ####[facility] PATHOLOGY [id number] [place], [place], HYDROMORPHONE CONFIRMATION Positive Abnormal Cutoff: 300 [facility] Comment on above: Order Comment: Scree n results are reported as positive (at or above the cutoff) or negative (below the cutoff).The LC-MS/MS testing (if applicable) was developed and its performance characteristics determined by [facility] [facility] in a manner consistent with CLIA requirements. This test has not been cleared or approved by the U.S. Food and Drug Administration; however, the FDA has determined that such clearance or approval is not necessary. Performed By: #### o bgyntox ####[facility] PATHOLOGY [id number] [place], [place], METH CL Negative Normal Cutoff: 300 [facility] Comment on above: Order Comment: Scree n results are reported as positive (at or above the cutoff) or negative (below the cutoff).The LC-MS/MS testing (if applicable) was developed and its performance characteristics determined by [facility] [facility] in a manner consistent with CLIA requirements. This test has not been cleared or approved by the U.S. Food and Drug Administration; however, the FDA has determined that such clearance or approval is not necessary. Performed By: #### o bgyntox ####S PATHOLOGY [id number] [place], [place], MORPHINE CONFIRMATION Positive Abnormal Cutoff: 300 [facility] Comment on above: Order Comment: Scree n results are reported as positive (at or above the cutoff) or negative (below the cutoff).The LC-MS/MS testing (if applicable) was developed and its performance characteristics determined by [facility] [facility] in a manner consistent with CLIA requirements. This test has not been cleared or approved by the U.S. Food and Drug Administration; however, the FDA has determined that such clearance or approval is not necessary. Performed By: #### o bgyntox ####S PATHOLOGY [id number] [place], [place], OPI CL Positive Abnormal Cutoff: 300 [facility] Comment on above: Order Comment: Scree n results are reported as positive (at or above the cutoff) or negative (below the cutoff).The LC-MS/MS testing (if applicable) was developed and its performance characteristics determined by [facility] [facility] in a manner consistent with CLIA requirements. This test has not been cleared or approved by the U.S. Food and Drug Administration; however, the FDA has determined that such clearance or approval is not necessary. Performed By: #### o bgyntox ####S PATHOLOGY [id number] [place], [place], OXYCODONE Negative Normal Cutoff: 100 [facility] Comment on above: Order Comment: Scree n results are reported as positive (at or above the cutoff) or negative (below the cutoff).The LC-MS/MS testing (if applicable) was developed and its performance characteristics determined by [facility] [facility] in a manner consistent with CLIA requirements. This test has not been cleared or approved by the U.S. Food and Drug Administration; however, the FDA has determined that such clearance or approval is not necessary. Result Comment: Oxyc odone and metabolites of Oxycodone (Oxymorphone, Noroxycodone, and Noroxymorphone) are measured/detected in this assay method. Performed By: #### o bgyntox ####[facility] PATHOLOGY [id number] [place], [place], PCP CL Negative Normal Cutoff: 25 [facility] Comment on above: Order Comment: Scree n results are reported as positive (at or above the cutoff) or negative (below the cutoff).The LC-MS/MS testing (if applicable) was developed and its performance characteristics determined by [facility] in a manner consistent with CLIA requirements. This test has not been cleared or approved by the U.S. Food and Drug Administration; however, the FDA has determined that such clearance or approval is not necessary. Performed By: #### o bgyntox ####[facility] PATHOLOGY [id number] [place], [place], THC CL - TOX W/ CONF Negative Normal Cutoff: 50 [facility] [employer] [facility] [facility] Comment on above: Order Comment: Scree n results are reported as positive (at or above the cutoff) or negative (below the cutoff).The LC-MS/MS testing (if applicable) was developed and its performance characteristics determined by [facility] [employer] [facility] [facility] in a manner consistent with CLIA requirements. This test has not been cleared or approved by the U.S. Food and Drug Administration; however, the FDA has determined that such clearance or approval is not necessary. Performed By: #### o bgyntox ####[facility] PATHOLOGY [id number] [place], [place], TYPE AND SCREENon 11-15-2024 ABO and Rh group Nom (Bld) Blood group A Rh(D) positive [facility] ABO and Rh group Nom (Bld) No Previous Results [facility] Blood group antibody screen Ql Negative [facility] ABO and Rh group Nom (Bld) Blood group A Rh(D) positive Normal [facility] Comment on above: Performed By: #### 8 [id number] #### NURSING GLUCOSE PROGRAM [address] [place], [address] ABO and Rh group Nom (Bld) No Previous Results Normal [facility] Comment on above: Performed By: #### 8 [id number] #### NURSING GLUCOSE PROGRAM [address] [place], [address] ABSC INT Negative Normal [facility] Comment on above: Performed By: #### 8 [id number] #### NURSING GLUCOSE PROGRAM [address] [place], [address] URIC ACIDon 11-15-2024 Urate [Mass/Vol] 3.6 mg/dL 2.3 - 6.6 mg/dL [facility] Urate [Mass/Vol] 3.6 mg/dL Normal 2.3-6.6 [facility] Comment on above: Performed By: #### 8 [id number] #### NURSING GLUCOSE PROGRAM [address] [place], [address] US RETROPERITONEAL LIMITEDon 11-15-2024 US RETROPERITONEAL LIMITED EXAMINATION: US RETROPERITONEAL LIMITED 11/15/2024 09:45 AM CLINICAL HISTORY: RUQ abscess ASSOCIATED DIAGNOSIS: Pre-eclampsia, antepartum (HCC) ORDERING PROVIDER: JUANY MUHAMMAD COMPARISON: CT BODY IMAGE IMPORT(VIET) 11/14/2024, 2:56 PM TECHNIQUE: Ultrasound real time scan with image documentation of the distended urinary bladder was performed. Repeat imaging was preformed after urinary voiding. IMPRESSION: Fluid and gas collection involving the right intra-abdominal cavity measuring 8.6 x 4.4 x 8.9 cm. Correlating with recent outside hospital CT, this is abutting the right colon. Although the gas within the collection could be from infection/recent surgery, a right-sided colon perforation is considered possible as well. Further evaluation with CT with rectal contrast suggested. MACRO: None Normal [facility] US Retroperitoneum limitedon 11-15-2024 EXAMINATION: US RETROPERITONEAL LIMITED 11/15/2024 09:45 AM CLINICAL HISTORY: RUQ abscess ASSOCIATED DIAGNOSIS: Pre-eclampsia, antepartum (HCC) ORDERING PROVIDER: JUANY MUHAMMAD COMPARISON: CT BODY IMAGE IMPORT(VIET) 11/14/2024, 2:56 PM TECHNIQUE: Ultrasound real time scan with image documentation of the distended urinary bladder was performed. Repeat imaging was preformed after urinary voiding. IMPRESSION: Fluid and gas collection involving the right intra-abdominal cavity measuring 8.6 x 4.4 x 8.9 cm. Correlating with recent outside hospital CT, this is abutting the right colon. Although the gas within the collection could be from infection/recent surgery, a right-sided colon perforation is considered possible as well. Further evaluation with CT with rectal contrast suggested. MACRO: None RADIOLOGY Ambrocio Joyner MD - 11/15/2024 EXAMINATION: US RETROPERITONEAL LIMITED 11/15/2024 09:45 AM CLINICAL HISTORY: RUQ abscess ASSOCIATED DIAGNOSIS: Pre-eclampsia, antepartum (HCC) ORDERING PROVIDER: JUANY MUHAMMAD COMPARISON: CT BODY IMAGE IMPORT(VIET) 11/14/2024, 2:56 PM TECHNIQUE: Ultrasound real time scan with image documentation of the distended urinary bladder was performed. Repeat imaging was preformed after urinary voiding. IMPRESSION: Fluid and gas collection involving the right intra-abdominal cavity measuring 8.6 x 4.4 x 8.9 cm. Correlating with recent outside hospital CT, this is abutting the right colon. Although the gas within the collection could be from infection/recent surgery, a right-sided colon perforation is considered possible as well. Further evaluation with CT with rectal contrast suggested. MACRO: None [facility] Radiology Study observation (narrative) [facility] Retroperitoneum limitedOr dered By: Ambrocio Joyner on 11-15-2024 [employer] Work Phone: XR ABDOMEN AP 1 VIEWon 11-15 XR ABDOMEN AP 1 VIEW EXAMINATION: XR ABD OMEN AP 1 VIEW 11/15/2024 10:45 AM CLINICAL HISTORY: evaluate for contrast outside of bowel ASSOCIATED DIAGNOSIS: Postprocedural intraabdominal abscess (HCC) Postprocedural intraabdominal abscess (HCC) ORDERING PROVIDER: JUANY MUHAMMAD TECHNOLOGISTS NOTE: COMPARISON: CT BODY IMAGE IMPORT(VIET) 11/14/2024, 2:56 PM FINDINGS: Intestinal gas pattern: Nonobstructive without definite pneumatosis intestinalis/coli. Faint retained contrast and moderate to large amount of stool in the right hemicolon and moderate to large amount of stool in the descending colon. Liver and spleen: No hepatosplenomegaly, pneumobilia or portal gas. Peritoneum: Bubbly gas pattern adjacent to the hepatic flexure of the colon, compatible with known abdominal abscess, without definite evidence of large bowel contrast extravasation into this region. Calcifications: No pathologic intra-abdominal calcification. Miscellaneous: Mid right abdominal surgical clips. Osseous structures: Unremarkable. Abdominal wall: Unremarkable. Included lower chest: Grossly clear lung bases. IMPRESSION: 1. Nonobstructive intestinal gas pattern. 2. Moderate stool burden. 3. Bubbly gas pattern adjacent to the hepatic flexure of the colon, compatible with known abdominal abscess, without definite evidence of large bowel contrast extravasation into this region. MACRO: None Normal [facility] [employer] [facility] XR Abdomen APon 11-15-2024 EXAMINATION: XR ABDO MEN AP 1 VIEW 11/15/2024 10:45 AM CLINICAL HISTORY: evaluate for contrast outside of bowel ASSOCIATED DIAGNOSIS: Postprocedural intraabdominal abscess (HCC) Postprocedural intraabdominal abscess (HCC) ORDERING PROVIDER: JUANY MUHAMMAD TECHNMARCELO NOTE: COMPARISON: CT BODY IMAGE IMPORT(VIET) 11/14/2024, 2:56 PM FINDINGS: Intestinal gas pattern: Nonobstructive without definite pneumatosis intestinalis/coli. Faint retained contrast and moderate to large amount of stool in the right hemicolon and moderate to large amount of stool in the descending colon. Liver and spleen: No hepatosplenomegaly, pneumobilia or portal gas. Peritoneum: Bubbly gas pattern adjacent to the hepatic flexure of the colon, compatible with known abdominal abscess, without definite evidence of large bowel contrast extravasation into this region. Calcifications: No pathologic intra-abdominal calcification. Miscellaneous: Mid right abdominal surgical clips. Osseous structures: Unremarkable. Abdominal wall: Unremarkable. Included lower chest: Grossly clear lung bases. IMPRESSION: 1. Nonobstructive intestinal gas pattern. 2. Moderate stool burden. 3. Bubbly gas pattern adjacent to the hepatic flexure of the colon, compatible with known abdominal abscess, without definite evidence of large bowel contrast extravasation into this region. MACRO: None RADIOLOGY Jose Seals, DO - 11/15/2024 EXAMINATION: XR ABDOMEN AP 1 VIEW 11/15/2024 10:45 AM CLINICAL HISTORY: evaluate for contrast outside of bowel ASSOCIATED DIAGNOSIS: Postprocedural intraabdominal abscess (HCC) Postprocedural intraabdominal abscess (HCC) ORDERING PROVIDER: JUANY MUHAMMAD TECHNOLOGISTS NOTE: COMPARISON: CT BODY IMAGE IMPORT(VIET) 11/14/2024, 2:56 PM FINDINGS: Intestinal gas pattern: Nonobstructive without definite pneumatosis intestinalis/coli. Faint retained contrast and moderate to large amount of stool in the right hemicolon and moderate to large amount of stool in the descending colon. Liver and spleen: No hepatosplenomegaly, pneumobilia or portal gas. Peritoneum: Bubbly gas pattern adjacent to the hepatic flexure of the colon, compatible with known abdominal abscess, without definite evidence of large bowel contrast extravasation into this region. Calcifications: No pathologic intra-abdominal calcification. Miscellaneous: Mid right abdominal surgical clips. Osseous structures: Unremarkable. Abdominal wall: Unremarkable. Included lower chest: Grossly clear lung bases. IMPRESSION: 1. Nonobstructive intestinal gas pattern. 2. Moderate stool burden. 3. Bubbly gas pattern adjacent to the hepatic flexure of the colon, compatible with known abdominal abscess, without definite evidence of large bowel contrast extravasation into this region. MACRO: None [facility] (narrative) [facility] XR Abdomen APOrdered By: Emigdio Seals on 11-15-2024 [employer] Work Phone: Abdomen/Pel W ORAL Cont Only on 11-14-2024 Abdomen/Pel W ORAL Cont Only Normal [facility] Abdomen/Pelvis W IV Cont ONL Yon 11-14-2024 Abdomen/Pelvis W IV Cont ONLY Normal [facility] Comprehensive Metabolic Prof ilon 11-14-2024 Albumin [Mass/Vol] 1.5 g/dL Low 3.2-5.0 [facility] Comment on above: Performed By: #### L 100.0100, L500.4050, L501.2450 ####[facility] [address] [place], [address] Albumin/Globulin [Mass ratio] 0.3 {ratio} Low 0.9-2.4 [facility] Comment on above: Performed By: #### L 100.0100, L500.4050, L501.2450 ####[facility] [address] [place], [address] ALK P 164 U/L High 45-117 [facility] Comment on above: Performed By: #### L 100.0100, L500.4050, [id number] ####[facility] [address] [place], [address] ALT [Catalytic activity/Vol] 15 U/L Normal 13-56 [facility] Comment on above: Performed By: #### L 100.0100, L500.4050, L501.2450 ####[facility] [address] [place], [address] AST [Catalytic activity/Vol] 16 U/L Normal 15-37 [facility] Comment on above: Performed By: #### L 100.0100, L500.4050, L501.2450 ####[facility] [address] [place], [address] Bilirubin [Mass/Vol] 0.30 mg/dL Normal 0.20-1.[address] [facility] Comment on above: Result Comment: For patients on eltrombopag therapy, use of Dimension [place] TBIL is not recommended. Performed By: #### L 100.0100, L500.4050, L501.2450 ####[facility] [address] [place], [address] BUN/CRE 9.6 RATIO Low 10-20 [facility] Comment on above: Performed By: #### L 100.0100, L500.4050, L501.2450 ####[facility] [address] [place], [address] CA,Total 9.0 mg/dL Normal 8.5-10.1 [facility] Comment on above: Performed By: #### L 100.0100, L500.4050, L501.2450 ####[facility] [address] [place], [address] Chloride [Moles/Vol] 99 mmol/L Normal 98-[address] [facility] Comment on above: Performed By: #### L 100.0100, L500.4050, L501.2450 ####[facility] [address] [place], [address] CO2 [Moles/Vol] 22.0 mmol/L Normal 21.0-32.0 [facility] Comment on above: Performed By: #### L 100.0100, L500.4050, L501.2450 ####[facility] [address] [place], [address] Creatinine [Mass/Vol] 0.63 mg/dL Normal 0.55-1.02 [facility] Comment on above: Result Comment: The validity of the calculated GFR GFRAA in patients over70 years has not been determined. Clinical correlation isessential. Performed By: #### L 100.0100, L500.4050, L501.2450 ####[facility] [address] [place], [address] ECRCL 132.12 ml/min Normal [facility] Comment on above: Performed By: #### L 100.0100, L500.4050, L501.2450 ####[facility] [address] [place], [address] EST GFR - AA 142 mL/min Normal >60 [facility] Comment on above: Result Comment: Afri can Syrian GFR Calc Performed By: #### L 100.0100, L500.4050, L501.2450 ####[facility] [address] [place], [address] GAP 10 Normal 5-15 [facility] Comment on above: Performed By: #### L 100.0100, L500.4050, L501.2450 ####[facility] [address] [place], [address] GFR/1.73 sq M.predicted among non-blacks MDRD (S/P/Bld) [Vol rate/Area] 117 mL/min/{1.73_m2} Normal >60 [facility] Comment on above: Result Comment: Non- GFR Calc Performed By: #### L 100.0100, L500.4050, L501.2450 ####[facility] [address] [place], [address] Globulin (S) [Mass/Vol] 4.8 g/dL High 2.2-4.2 [facility] Comment on above: Performed By: #### L 100.0100, L500.4050, L501.2450 ####[facility] [address] [place], [address] Glucose [Mass/Vol] 376 mg/dL High 74-106 [facility] Comment on above: Result Comment: Gluc ose result greater than or equal to 200 mg/dLsuggests DIABETES MELLITUS per A.D.A. criteria. Performed By: #### L 100.0100, L500.4050, L501.2450 ####[facility] [address] [place], [address] Potassium [Moles/Vol] 4.0 mmol/L Normal 3.5-5.1 [facility] Comment on above: Performed By: #### L 100.0100, L500.4050, L501.2450 ####[facility] [address] [place], [address] Sodium [Moles/Vol] 131 mmol/L Low 136-145 [facility] Comment on above: Performed By: #### L 100.0100, L500.4050, L501.2450 ####[facility] [address] [place], [address] T PROT 6.3 g/dL Low 6.4-8.2 [facility] Comment on above: Performed By: #### L 100.0100, L500.4050, L501.2450 ####[facility] [address] [place], [address] Urea nitrogen [Mass/Vol] 6 mg/dL Low 7-18 [facility] Comment on above: Performed By: #### L 100.0100, L500.4050, L501.2450 ####[facility] [address] [place], [place], [id number] Emergency Department Summary on 11-14-2024 Emergency Department [address] Normal [facility] HIV-1 RNA PCR, QUANTITATIVEo n 11-14-2024 VIR QNT (ND) Not detected Normal [facility] Comment on above: Order Comment: The organism belongs to the Bacteroides fragilis group which are beta-lactmase producers; therefore Beta-lactmase testing will not be performed for this organism. It should be considered resistant to penicillin, ampicillin and amoxicillin. Performed By: #### C ANRB #### [facility] [address] [facility] [place], [place] [address] Lipaseon 11-14-2024 Lipase [Catalytic activity/Vol] 22 U/L Normal 13-75 [facility] Comment on above: Result Comment: Plenirmal cano note:LIPASE revised reference range effective 23.New Lipase methodology. Expected to produce lower valuesthan the previous assay method.NEW Reference Range: 13 - 75 U/L Performed By: #### L 100.0100, L500.4050, L501.2450 ####[facility] [address] [place], [address] Partial Thromboplast Timeon 11-14-2024 aPTT Coag (Bld) [Time] 28.3 s Normal 24.1-36.2 [facility] [place] Comment on above: Performed By: #### L 300.4310, L300.3900 ####[facility] [address] [place], [address] Progress Noteson 11-14-2024 Planner Authentication Interface Message Text 29 year old , OB History Para Term AB Living 1 0 0 0 0 0 SAB IAB Ectopic Multiple Live Births 0 0 0 0 0 Unknown seen today in Triage # 1 for C/O transfer via ems from [place]. HTN and right upper abdominal pain post c/s on 11/06/24 Is BERNADETTE Faust involved in any research studies? No If patient smokes, does she desire information/assistance to quit? N/A - Doesn't smoke No current facility-administered medications on file prior to encounter. No current outpatient medications on file prior to encounter. Dr. Carrasco aware of pt arrival and chief complaints Normal [employer] [facility] Prothrombin Time w/INRon INR Coag (PPP) [Relative time] 1.0 {INR} Normal [facility] Comment on above: Performed By: #### L 300.4310, L300.3900 ####[facility] [address] [place], [address] PT Coag (PPP) [Time] 13.3 s Normal 11.7-14.[address] [facility] Comment on above: Performed By: #### L 300.4310, L300.3900 ####[facility] [address] [place], [address] Type AND Screenon 11-14-2024 Ab SCREEN GEL Negative Normal [facility] Comment on above: Order Comment: A Performed By: #### B TS ####[facility] [address] [place], [address] Urinalysis, Completeon 11-14 RBC 0-5 SEEN Normal 0-5 [facility] Comment on above: Order Comment: CLEAN CATCH Performed By: #### L 400.0001 ####[facility] [address] [place], [address] WBC 0-5 SEEN Normal 0-5 [facility] Comment on above: Order Comment: CLEAN CATCH Performed By: #### L 400.0001 ####[facility] [address] [place], [address] BACTERIA 0 SEEN Normal None Seen [facility] Comment on above: Order Comment: CLEAN CATCH Performed By: #### L 400.0001 ####[facility] [address] [place], [address] EPI,SQUAMOUS 0 SEEN Normal 5-10 [facility] Comment on above: Order Comment: CLEAN CATCH Performed By: #### L 400.0001 ####[facility] [address] [place], [address] Mucus Ql (Urine sed) [address] [facility] Comment on above: Order Comment: CLEAN CATCH Performed By: #### L 400.0001 ####[facility] [address] [place], [address] HIV Viral Load Quanton 11-11 HIV-1 RNA, PCR < [address] [facility] Comment on above: Result Comment: HIV- 1 RNA not detectedThe reportable range for this assay is 20 to 10,000,000copies HIV-1 RNA/mL. Performed By: #### L 3890.4000, L500.4050 ####[facility] [address] [place], [address] log10 HIV-1 RNA TNP Normal . [facility] Comment on above: Result Comment: Resu lt Units: hbr30ahwe/mLUnable to calculate result since non-numeric resultobtained for component test.Performed at: - [address] [id number] Director: Cinthya Downs MD, Phone: [phone] Performed By: #### L 3890.4000, L500.4050 ####[facility] [address] [place], [address] Bedside Glucoseon 11-09-2024 FINGERSTICK GLU 106 mg/dL Normal 74-106 [facility] Comment on above: Result Comment: ATUL GLORYENT OF PATIENT CARE PER NURSING PROTOCOL Performed By: #### L 501.080 ####[facility] [address] [place], [address] FINGERSTICK GLU 96 mg/dL Normal 74-106 [facility] Comment on above: Result Comment: ATUL GAMBLE OF PATIENT CARE PER NURSING PROTOCOL Performed By: #### L 501.080 ####[facility] [address] [place], [address] CBC W/Diff, Automatedon 10-30 Absolute Lymph 0.95 X10 3/uL Normal 0.83-4.51 [facility] Comment on above: Performed By: #### L 500.4050, L100.0100 ####[facility] [address] [place], [address] Absolute Neut 13.8 X10 3/uL High 2.0-7.7 [facility] Comment on above: Performed By: #### L 500.4050, L100.0100 ####[facility] [address] [place], [address] Basophils/100 WBC (Bld) 0.1 % Normal 0-1 [facility] Comment on above: Performed By: #### L 500.4050, L100.0100 ####[facility] [address] [place], [address] Eosinophils/100 WBC (Bld) 0.0 % Normal 0-5 [facility] Comment on above: Performed By: #### L 500.4050, L100.0100 ####[facility] [address] [place], [address] Erythrocyte distribution width (RBC) [Ratio] 15.2 % High 11.6-14.6 [facility] Comment on above: Performed By: #### L 500.4050, L100.0100 ####[facility] [address] [place], [address] Hematocrit (Bld) [Volume fraction] 31.5 % Low 37-47 [facility] Comment on above: Performed By: #### L 500.4050, L100.0100 ####[facility] [address] [place], [address] Hemoglobin (Bld) [Mass/Vol] 10.5 g/dL Low 12.0-15.0 [facility] Comment on above: Performed By: #### L 500.4050, L100.0100 ####[facility] [address] [place], [address] IG% 0.600 Normal 0.0-0.9 [facility] Comment on above: Result Comment: IG% - Immature Granulocytes (promyelocytes, myelocytes andmetamyelocytes) > 1% indicates that a LEFT SHIFT is Present. Performed By: #### L 500.4050, L100.0100 ####[facility] [address] [place], [address] Lymphocytes/100 WBC (Bld) 6.1 % Low 19-41 [facility] Comment on above: Performed By: #### L 500.4050, L100.0100 ####[facility] [address] [place], [address] MCH (RBC) [Entitic mass] 27.3 pg Normal 27.0-32.0 [facility] Comment on above: Performed By: #### L 500.4050, L100.0100 ####[facility] [address] [place], [address] MCHC (RBC) [Mass/Vol] 33.3 g/dL Normal 32-36 [facility] Comment on above: Performed By: #### L 500.4050, L100.0100 ####[facility] [address] [place], [address] MCV (RBC) [Entitic vol] 81.8 fL Normal 81-99 [facility] Comment on above: Performed By: #### L 500.4050, L100.0100 ####[facility] [address] [place], [address] Monocytes/100 WBC (Bld) 4.1 % Normal 0-10 [facility] Comment on above: Performed By: #### L 500.4050, L100.0100 ####[facility] [address] [place], [address] Neutrophils/100 WBC (Bld) 89.1 % High 47-70 [facility] Comment on above: Performed By: #### L 500.4050, L100.0100 ####[facility] [address] [place], [address] Nucleated RBC (Bld) [#/Vol] 0 10*3/uL Normal 0-5 [facility] Comment on above: Performed By: #### L 500.4050, L100.0100 ####[facility] [address] [place], [address] Platelet mean volume (Bld) [Entitic vol] 10.4 fL Normal 6.2-12.0 [facility] Comment on above: Performed By: #### L 500.4050, L100.0100 ####[facility] [address] [place], [address] Platelets (Bld) [#/Vol] 196 10*3/uL Normal 150-450 [facility] Comment on above: Performed By: #### L 500.4050, L100.0100 ####[facility] [address] [place], [address] RBC (Bld) [#/Vol] 3.85 10*6/uL Low 4.2-5.4 [facility] Comment on above: Performed By: #### L 500.4050, L100.0100 ####[facility] [address] [place], [address] RDW SD 44.6 fl High 35.1-43.9 [facility] Comment on above: Performed By: #### L 500.4050, L100.0100 ####[facility] [address] [place], [address] WBC (Bld) [#/Vol] 15.5 10*3/uL High 4.4-11.0 [facility] Comment on above: Performed By: #### L 500.4050, L100.0100 ####[facility] [address] [place], [address] Comprehensive Metabolic Prof ilon 11-09-2024 Albumin [Mass/Vol] 1.7 g/dL Low 3.2-5.0 [facility] Comment on above: Performed By: #### L 500.4050, L100.0100 ####[facility] [address] [place], [address] Albumin/Globulin [Mass ratio] 0.5 {ratio} Low 0.9-2.4 [facility] Comment on above: Performed By: #### L 500.4050, L100.0100 ####[facility] [address] [place], [address] ALK P 104 U/L Normal 45-117 [facility] Comment on above: Performed By: #### L 500.4050, L100.0100 ####[facility] [address] [place], [address] ALT [Catalytic activity/Vol] 14 U/L Normal 13-56 [facility] Comment on above: Performed By: #### L 500.4050, L100.0100 ####[facility] [address] [place], [address] AST [Catalytic activity/Vol] 22 U/L Normal 15-37 [facility] Comment on above: Performed By: #### L 500.4050, L100.0100 ####[facility] [address] [place], [address] Bilirubin [Mass/Vol] 0.30 mg/dL Normal 0.20-1.[address] [facility] Comment on above: Result Comment: For patients on eltrombopag therapy, use of Dimension [place] TBIL is not recommended. Performed By: #### L 500.4050, L100.0100 ####[facility] [address] [place], [address] BUN/CRE 25.9 RATIO High 10-20 [facility] Comment on above: Performed By: #### L 500.4050, L100.0100 ####[facility] [address] [place], [address] CA,Total 8.0 mg/dL Low 8.5-10.1 [facility] Comment on above: Performed By: #### L 500.4050, L100.0100 ####[facility] [address] [place], [address] Chloride [Moles/Vol] 107 mmol/L Normal 98-[address] [facility] Comment on above: Performed By: #### L 500.4050, L100.0100 ####[facility] [address] [place], [address] CO2 [Moles/Vol] 22.0 mmol/L Normal 21.0-32.0 [facility] Comment on above: Performed By: #### L 500.4050, L100.0100 ####[facility] [address] [place], [address] Creatinine [Mass/Vol] 0.89 mg/dL Normal 0.55-1.02 [facility] Comment on above: Result Comment: The validity of the calculated GFR GFRAA in patients over70 years has not been determined. Clinical correlation isessential. Performed By: #### L 500.4050, L100.0100 ####[facility] [address] [place], [address] ECRCL 99.59 ml/min Normal [facility] Comment on above: Performed By: #### L 500.4050, L100.0100 ####[facility] [address] [place], [address] EST GFR - AA 95 mL/min Normal >60 [facility] Comment on above: Result Comment: Afri can Syrian GFR Calc Performed By: #### L 500.4050, L100.0100 ####[facility] [address] [place], [address] GAP 7 Normal 5-15 [facility] Comment on above: Performed By: #### L 500.4050, L100.0100 ####[facility] [address] [place], [address] GFR/1.73 sq M.predicted among non-blacks MDRD (S/P/Bld) [Vol rate/Area] 78 mL/min/{1.73_m2} Normal >60 [facility] Comment on above: Result Comment: Non- GFR Calc Performed By: #### L 500.4050, L100.0100 ####[facility] [address] [place], [address] Globulin (S) [Mass/Vol] 3.7 g/dL Normal 2.2-4.2 [facility] Comment on above: Performed By: #### L 500.4050, L100.0100 ####[facility] [address] [place], [address] Glucose [Mass/Vol] 109 mg/dL High 74-106 [facility] Comment on above: Result Comment: Fast ing Glucose result from 100 to 125 mg/dLsuggests IMPAIRED HOMEOSTASIS per A.D.A. criteria. Performed By: #### L 500.4050, L100.0100 ####[facility] [address] [place], [address] Potassium [Moles/Vol] 4.1 mmol/L Normal 3.5-5.1 [facility] Comment on above: Performed By: #### L 500.4050, L100.0100 ####[facility] [address] [place], [address] Sodium [Moles/Vol] 136 mmol/L Normal 136-145 [facility] Comment on above: Performed By: #### L 500.4050, L100.0100 ####[facility] [address] [place], [address] T PROT 5.4 g/dL Low 6.4-8.2 [facility] Comment on above: Performed By: #### L 500.4050, L100.0100 ####[facility] [address] [place], [address] Urea nitrogen [Mass/Vol] 23 mg/dL High 7-18 [facility] Comment on above: Performed By: #### L 500.4050, L100.0100 ####[facility] [address] [place], [address] Discharge Instructionon 10-30 Discharge Instruction Normal [facility] Bedside Glucoseon 11-08-2024 FINGERSTICK GLU 232 mg/dL High 74-106 [facility] Comment on above: Result Comment: ATUL GEMENT OF PATIENT CARE PER NURSING PROTOCOL Performed By: #### L 501.080 ####[facility] [address] [place], [address] FINGERSTICK GLU 277 mg/dL High 74-106 [facility] Comment on above: Result Comment: ATUL GEMENT OF PATIENT CARE PER NURSING PROTOCOL Performed By: #### L 501.080 ####[facility] [address] [place], [address] FINGERSTICK GLU 244 mg/dL High 74-106 [facility] Comment on above: Result Comment: ATUL GEMENT OF PATIENT CARE PER NURSING PROTOCOL Performed By: #### L 501.080 ####[facility] [address] [place], [address] FINGERSTICK GLU 343 mg/dL High 74-106 [facility] Comment on above: Result Comment: ATUL GEMENT OF PATIENT CARE PER NURSING PROTOCOL Performed By: #### L 501.080 ####[facility] [address] [place], [address] FINGERSTICK GLU 253 mg/dL High 74-106 [facility] Comment on above: Result Comment: ATUL GEMENT OF PATIENT CARE PER NURSING PROTOCOL Performed By: #### L 501.080 ####[facility] [address] [place], [address] CBC-[facility] Erythrocyte distribution width (RBC) [Ratio] 14.6 % Normal 11.6-14.6 [facility] Comment on above: Performed By: #### L 500.4050, L100.0500 ####[facility] [address] [place], [address] Hematocrit (Bld) [Volume fraction] 31.4 % Low 37-47 [facility] Comment on above: Performed By: #### L 500.4050, L100.0500 ####[facility] [address] [place], [address] Hemoglobin (Bld) [Mass/Vol] 10.4 g/dL Low 12.0-15.0 [facility] Comment on above: Performed By: #### L 500.4050, L100.0500 ####[facility] [address] [place], [address] MCH (RBC) [Entitic mass] 26.9 pg Low 27.0-32.0 [facility] Comment on above: Performed By: #### L 500.4050, L100.0500 ####[facility] [address] [place], [address] MCHC (RBC) [Mass/Vol] 33.1 g/dL Normal 32-36 [facility] Comment on above: Performed By: #### L 500.4050, L100.0500 ####[facility] [address] [place], [address] MCV (RBC) [Entitic vol] 81.3 fL Normal 81-99 [facility] Comment on above: Performed By: #### L 500.4050, L100.0500 ####[facility] [address] [place], [address] Platelet mean volume (Bld) [Entitic vol] 11.2 fL Normal 6.2-12.0 [facility] Comment on above: Performed By: #### L 500.4050, L100.0500 ####[facility] [address] [place], [address] Platelets (Bld) [#/Vol] 164 10*3/uL Normal 150-450 [facility] Comment on above: Performed By: #### L 500.4050, L100.0500 ####[facility] [address] [place], [address] RBC (Bld) [#/Vol] 3.86 10*6/uL Low 4.2-5.4 [facility] Comment on above: Performed By: #### L 500.4050, L100.0500 ####[facility] [address] [place], [address] RDW SD 42.5 fl Normal 35.1-43.9 [facility] Comment on above: Performed By: #### L 500.4050, L100.0500 ####[facility] [address] [place], [address] WBC (Bld) [#/Vol] 10.6 10*3/uL Normal 4.4-11.0 [facility] Comment on above: Performed By: #### L 500.4050, L100.0500 ####[facility] [address] [place], [address] Comprehensive Metabolic Prof ilon 11-08-2024 Albumin [Mass/Vol] 1.6 g/dL Low 3.2-5.0 [facility] Comment on above: Performed By: #### L 500.4050, L100.0500 ####[facility] [address] [place], [address] Albumin/Globulin [Mass ratio] 0.4 {ratio} Low 0.9-2.4 [facility] Comment on above: Performed By: #### L 500.4050, L100.0500 ####[facility] [address] [place], [address] ALK P 112 U/L Normal 45-117 [facility] Comment on above: Performed By: #### L 500.4050, L100.0500 ####[facility] [address] [place], [address] ALT [Catalytic activity/Vol] 12 U/L Low 13-56 [facility] Comment on above: Performed By: #### L 500.4050, L100.0500 ####[facility] [address] [place], [address] AST [Catalytic activity/Vol] 19 U/L Normal 15-37 [facility] Comment on above: Performed By: #### L 500.4050, L100.0500 ####[facility] [address] [place], [address] Bilirubin [Mass/Vol] 0.30 mg/dL Normal 0.20-1.[address] [facility] Comment on above: Result Comment: For patients on eltrombopag therapy, use of Dimension [place] TBIL is not recommended. Performed By: #### L 500.4050, L100.0500 ####[facility] [address] [place], [address] BUN/CRE 16.8 RATIO Normal 10-20 [facility] Comment on above: Performed By: #### L 500.4050, L100.0500 ####[facility] [address] [place], [address] CA,Total 7.4 mg/dL Low 8.5-10.1 [facility] Comment on above: Performed By: #### L 500.4050, L100.0500 ####[facility] [address] [place], [address] Chloride [Moles/Vol] 100 mmol/L Normal 98-[address] [facility] Comment on above: Performed By: #### L 500.4050, L100.0500 ####[facility] [address] [place], [address] CO2 [Moles/Vol] 20.0 mmol/L Low 21.0-32.0 [facility] Comment on above: Performed By: #### L 500.4050, L100.0500 ####[facility] [address] [place], [address] Creatinine [Mass/Vol] 1.25 mg/dL High 0.55-1.02 [facility] Comment on above: Result Comment: The validity of the calculated GFR GFRAA in patients over70 years has not been determined. Clinical correlation isessential. Performed By: #### L 500.4050, L100.0500 ####[facility] [address] [place], [address] ECRCL 70.91 ml/min Normal [facility] Comment on above: Performed By: #### L 500.4050, L100.0500 ####[facility] [address] [place], [address] EST GFR - AA 64 mL/min Normal >60 [facility] Comment on above: Result Comment: Afri can Syrian GFR Calc Performed By: #### L 500.4050, L100.0500 ####[facility] [address] [place], [address] GAP 8 Normal 5-15 [facility] Comment on above: Performed By: #### L 500.4050, L100.0500 ####[facility] [address] [place], [address] GFR/1.73 sq M.predicted among non-blacks MDRD (S/P/Bld) [Vol rate/Area] 53 mL/min/{1.73_m2} Low >60 [facility] Comment on above: Result Comment: Non- GFR Calc Performed By: #### L 500.4050, L100.0500 ####[facility] [address] [place], [address] Globulin (S) [Mass/Vol] 3.7 g/dL Normal 2.2-4.2 [facility] Comment on above: Performed By: #### L 500.4050, L100.0500 ####[facility] [address] [place], [address] Glucose [Mass/Vol] 259 mg/dL High 74-106 [facility] Comment on above: Result Comment: Gluc ose result greater than or equal to 200 mg/dLsuggests DIABETES MELLITUS per A.D.A. criteria. Performed By: #### L 500.4050, L100.0500 ####[facility] [address] [place], [address] Potassium [Moles/Vol] 4.3 mmol/L Normal 3.5-5.1 [facility] Comment on above: Performed By: #### L 500.4050, L100.0500 ####[facility] [address] [place], [address] Sodium [Moles/Vol] 127 mmol/L Low 136-145 [facility] Comment on above: Performed By: #### L 500.4050, L100.0500 ####[facility] [address] [place], [address] T PROT 5.3 g/dL Low 6.4-8.2 [facility] Comment on above: Performed By: #### L 500.4050, L100.0500 ####[facility] [address] [place], [address] Urea nitrogen [Mass/Vol] 21 mg/dL High 7-18 [facility] Comment on above: Performed By: #### L 500.4050, L100.0500 ####[facility] [address] [place], [address] L3410.9999on 11-08-2024 [facility] [place] Normal . [facility] Comment on above: Order Comment: [id number] CONFIRMATION Result Comment: Test Ordered: [id number] HIV Ab/p24 Ag with ReflexHIV Ab/p24 Ag Screen Note: CB Non Reactive Reference Range: Non ReactiveHIV-1/HIV-2 antibodies and HIV-1 p24 antigen were NOTdetected. There is no laboratory evidence of HIV infection.HIV NegativePerformed at: - [facility] [address] [id number] Director: Donell Nieto PhD, Phone: [phone] Performed By: #### L 3890.6005, L400.0001, L3410.9999, L100.0100 ####[facility] [address] [place], [address] 12 Lead EKGon 11-07-2024 [address] [facility] Acetone Serumon 11-07-2024 ACETONE SERUM Negative Normal NEG [facility] Comment on above: Performed By: #### L 501.6900 ####[facility] [address] [place], [address] BLD Prod Order/FFPon 025 BP ORDER FFP Not performed Normal [facility] Comment on above: Order Comment: NO LO NGER NEEDED Result Comment: NO L ONGER NEEDED Performed By: #### B BPOFFP ####[facility] [address] [place], [address] Bedside Glucoseon 11-07-2024 FINGERSTICK GLU 271 mg/dL High [address] [place] [address] Comment on above: Result Comment: ATUL GEMENT OF PATIENT CARE PER NURSING PROTOCOL Performed By: #### L 501.080 ####[facility] [address] [place], [address] FINGERSTICK GLU 297 mg/dL High [address] [place] [address] Comment on above: Result Comment: ATUL GEMENT OF PATIENT CARE PER NURSING PROTOCOL Performed By: #### L 501.080 ####[facility] [address] [place], [address] FINGERSTICK GLU 209 mg/dL High [address] [place] [address] Comment on above: Result Comment: ATUL GEMENT OF PATIENT CARE PER NURSING PROTOCOL Performed By: #### L 501.080 ####[facility] [address] [place], [address] FINGERSTICK GLU 268 mg/dL High [address] [place] [address] Comment on above: Result Comment: ATUL GEMENT OF PATIENT CARE PER NURSING PROTOCOL Performed By: #### L 501.080 ####[facility] [address] [place], [address] FINGERSTICK GLU 306 mg/dL High [address] [place] [address] Comment on above: Result Comment: ATUL GEMENT OF PATIENT CARE PER NURSING PROTOCOL Performed By: #### L 501.080 ####[facility] [address] [place], [address] FINGERSTICK GLU 272 mg/dL High 74-106 [facility] Comment on above: Result Comment: ATUL GEMENT OF PATIENT CARE PER NURSING PROTOCOL Performed By: #### L 501.080 ####[facility] [address] [place], [address] CBC W/Diff, Automatedon 01-0 -2024 Absolute Lymph 2.70 X10 3/uL Normal 0.83-4.51 [facility] Comment on above: Performed By: #### L 100.0100 ####[facility] [address] [place], [address] Absolute Neut 6.6 X10 3/uL Normal 2.0-7.7 [facility] Comment on above: Performed By: #### L 100.0100 ####[facility] [address] [place], [address] Basophils/100 WBC (Bld) 0.2 % Normal 0-1 [facility] Comment on above: Performed By: #### L 100.0100 ####[facility] [address] [place], [address] Eosinophils/100 WBC (Bld) 0.1 % Normal 0-5 [facility] Comment on above: Performed By: #### L 100.0100 ####[facility] [address] [place], [address] Erythrocyte distribution width (RBC) [Ratio] 14.7 % High 11.6-14.6 [facility] Comment on above: Performed By: #### L 100.0100 ####[facility] [address] [place], [address] Hematocrit (Bld) [Volume fraction] 31.8 % Low 37-47 [facility] Comment on above: Performed By: #### L 100.0100 ####[facility] [address] [place], [address] Hemoglobin (Bld) [Mass/Vol] 10.3 g/dL Low 12.0-15.0 [facility] Comment on above: Performed By: #### L 100.0100 ####[facility] [address] [place], [address] IG% 1.000 High 0.0-0.9 [facility] Comment on above: Result Comment: IG% - Immature Granulocytes (promyelocytes, myelocytes andmetamyelocytes) > 1% indicates that a LEFT SHIFT is Present. Performed By: #### L 100.0100 ####[facility] [address] [place], [address] Lymphocytes/100 WBC (Bld) 27.4 % Normal 19-41 [facility] Comment on above: Performed By: #### L 100.0100 ####[facility] [address] [place], [address] MCH (RBC) [Entitic mass] 27.0 pg Normal 27.0-32.0 [facility] Comment on above: Performed By: #### L 100.0100 ####[facility] [address] [place], [address] MCHC (RBC) [Mass/Vol] 32.4 g/dL Normal 32-36 [facility] Comment on above: Performed By: #### L 100.0100 ####[facility] [address] [place], [address] MCV (RBC) [Entitic vol] 83.5 fL Normal 81-99 [facility] Comment on above: Performed By: #### L 100.0100 ####[facility] [address] [place], [address] Monocytes/100 WBC (Bld) 4.5 % Normal 0-10 [facility] Comment on above: Performed By: #### L 100.0100 ####[facility] [address] [place], [address] Neutrophils/100 WBC (Bld) 66.8 % Normal 47-70 [facility] Comment on above: Performed By: #### L 100.0100 ####[facility] [address] [place], [address] Nucleated RBC (Bld) [#/Vol] 0 10*3/uL Normal 0-5 [facility] Comment on above: Performed By: #### L 100.0100 ####[facility] [address] [place], [address] Platelet mean volume (Bld) [Entitic vol] 12.4 fL High 6.2-12.0 [facility] Comment on above: Performed By: #### L 100.0100 ####[facility] [address] [place], [address] Platelets (Bld) [#/Vol] 113 10*3/uL Low 150-450 [facility] Comment on above: Performed By: #### L 100.0100 ####[facility] [address] [place], [address] RBC (Bld) [#/Vol] 3.81 10*6/uL Low 4.2-5.4 [facility] Comment on above: Performed By: #### L 100.0100 ####[facility] [address] [place], [address] RDW SD 43.8 fl Normal 35.1-43.9 [facility] Comment on above: Performed By: #### L 100.0100 ####[facility] [address] [place], [address] WBC (Bld) [#/Vol] 9.8 10*3/uL Normal 4.4-11.0 [facility] Comment on above: Performed By: #### L 100.0100 ####[facility] [address] [place], [address] CBC-Complete Blood Cnt No Mima ffon 11-07-2024 Erythrocyte distribution width (RBC) [Ratio] 14.5 % Normal 11.6-14.6 [facility] Comment on above: Performed By: #### L 100.0500 ####[facility] [address] [place], [address] Hematocrit (Bld) [Volume fraction] 28.5 % Low 37-47 [facility] Comment on above: Performed By: #### L 100.0500 ####[facility] [address] [place], [address] Hemoglobin (Bld) [Mass/Vol] 9.3 g/dL Low 12.0-15.0 [facility] Comment on above: Performed By: #### L 100.0500 ####[facility] [address] [place], [address] MCH (RBC) [Entitic mass] 26.5 pg Low 27.0-32.0 [facility] Comment on above: Performed By: #### L 100.0500 ####[facility] [address] [place], [address] MCHC (RBC) [Mass/Vol] 32.6 g/dL Normal 32-36 [facility] Comment on above: Performed By: #### L 100.0500 ####[facility] [address] [place], [address] MCV (RBC) [Entitic vol] 81.2 fL Normal 81-99 [facility] Comment on above: Performed By: #### L 100.0500 ####[facility] [address] [place], [address] Platelet mean volume (Bld) [Entitic vol] 12.4 fL High 6.2-12.0 [facility] Comment on above: Performed By: #### L 100.0500 ####[facility] [address] [place], [address] Platelets (Bld) [#/Vol] 126 10*3/uL Low 150-450 [facility] Comment on above: Performed By: #### L 100.0500 ####[facility] [address] [place], [address] RBC (Bld) [#/Vol] 3.51 10*6/uL Low 4.2-5.4 [facility] Comment on above: Performed By: #### L 100.0500 ####[facility] [address] [place], [address] RDW SD 41.7 fl Normal 35.1-43.9 [facility] Comment on above: Performed By: #### L 100.0500 ####[facility] [address] [place], [address] WBC (Bld) [#/Vol] 12.0 10*3/uL High 4.4-11.0 [facility] Comment on above: Performed By: #### L 100.0500 ####[facility] [address] [place], [address] Hemoglobin (Bld) [Mass/Vol] 5.8 g/dL Invalid Interpretation Code 12.0-15.0 [facility] Comment on above: Order Comment: Comme nts: Day #1Reason for Laboratory Test Result Comment: This specimen has been REJECTED due to Laboratory criteria:POSSIBLE Contamination.[email or web address] has been notified of need of recollection.11/07/24 0338 Zeferino GarciaCRITICAL VALUE CALLED TO LETONXM92/09/25 0203 Zeferino Garcia.RESULTS READ BACK BY SAME. Performed By: #### L 100.0500 ####[facility] [address] [place], [address] SCAN INDICATED? YES- FLAGS NOTED Normal [facility] Comment on above: Order Comment: Comme nts: Day #1Reason for Laboratory Test Result Comment: This specimen has been REJECTED due to Laboratory criteria:POSSIBLE Contamination.[email or web address] has been notified of need of recollection.11/07/24337 Zeferino R Garcia Performed By: #### L 100.0500 ####[facility] [address] [place], [address] Erythrocyte distribution width (RBC) [Ratio] 14.4 % Normal 11.6-14.6 [facility] Comment on above: Order Comment: Comme nts: Day #1Reason for Laboratory Test Result Comment: This specimen has been REJECTED due to Laboratory criteria:POSSIBLE Contamination.[email or web address] has been notified of need of recollection.11/07/24337 Zeferino R Garcia Performed By: #### L 100.0500 ####[facility] [address] [place], [place], [address] Hematocrit (Bld) [Volume fraction] 19.1 % Low 37-47 [facility] Comment on above: Order Comment: Comme nts: Day #1Reason for Laboratory Test Result Comment: This specimen has been REJECTED due to Laboratory criteria:POSSIBLE Contamination.[email or web address] has been notified of need of recollection.11/07/24337 Zeferino R Garcia Performed By: #### L 100.0500 ####[facility] [address] [place], [address] MCH (RBC) [Entitic mass] 26.0 pg Low 27.0-32.0 [facility] Comment on above: Order Comment: Comme nts: Day #1Reason for Laboratory Test Result Comment: This specimen has been REJECTED due to Laboratory criteria:POSSIBLE Contamination.[email or web address] has been notified of need of recollection.11/07/24337 Zeferino R Garcia Performed By: #### L 100.0500 ####[facility] [address] [place], [address] MCHC (RBC) [Mass/Vol] 30.4 g/dL Low 32-36 [facility] Comment on above: Order Comment: Comme nts: Day #1Reason for Laboratory Test Result Comment: This specimen has been REJECTED due to Laboratory criteria:POSSIBLE Contamination.[email or web address] has been notified of need of recollection.11/07/24337 Zeferino R Garcia Performed By: #### L 100.0500 ####[facility] [address] [place], [address] MCV (RBC) [Entitic vol] 85.7 fL Normal 81-99 [facility] Comment on above: Order Comment: Comme nts: Day #1Reason for Laboratory Test Result Comment: This specimen has been REJECTED due to Laboratory criteria:POSSIBLE Contamination.[email or web address] has been notified of need of recollection.11/07/24337 Zeferino R Garcia Performed By: #### L 100.0500 ####[facility] [address] [place], [address] Platelet mean volume (Bld) [Entitic vol] 11.3 fL Normal 6.2-12.0 [facility] Comment on above: Order Comment: Comme nts: Day #1Reason for Laboratory Test Result Comment: This specimen has been REJECTED due to Laboratory criteria:POSSIBLE Contamination.[email or web address] has been notified of need of recollection.11/07/24337 Zeferino R Garcia Performed By: #### L 100.0500 ####[facility] [address] [place], [address] Platelets (Bld) [#/Vol] 66 10*3/uL Low 150-450 [facility] Comment on above: Order Comment: Comme nts: Day #1Reason for Laboratory Test Result Comment: This specimen has been REJECTED due to Laboratory criteria:POSSIBLE Contamination.[email or web address] has been notified of need of recollection.11/07/24337 Zeferino R Garcia Performed By: #### L 100.0500 ####[facility] [address] [place], [address] POSITIVE COUNT YES Abnormal [facility] Comment on above: Order Comment: Comme nts: Day #1Reason for Laboratory Test Result Comment: This specimen has been REJECTED due to Laboratory criteria:POSSIBLE Contamination.[email or web address] has been notified of need of recollection.11/07/24337 Zeferino R Garcia Performed By: #### L 100.0500 ####[facility] [address] [place], [address] RBC (Bld) [#/Vol] 2.23 10*6/uL Low 4.2-5.4 [facility] Comment on above: Order Comment: Comme nts: Day #1Reason for Laboratory Test Result Comment: This specimen has been REJECTED due to Laboratory criteria:POSSIBLE Contamination.[email or web address] has been notified of need of recollection.11/07/24337 Zeferino R Garcia Performed By: #### L 100.0500 ####[facility] [address] [place], [address] RDW SD 44.5 fl High 35.1-43.9 [facility] Comment on above: Order Comment: Comme nts: Day #1Reason for Laboratory Test Result Comment: This specimen has been REJECTED due to Laboratory criteria:POSSIBLE Contamination.[email or web address] has been notified of need of recollection.11/07/24337 Zeferino R Garcia Performed By: #### L 100.0500 ####[facility] [address] [place], [address] WBC (Bld) [#/Vol] 7.6 10*3/uL Normal 4.4-11.0 [facility] Comment on above: Order Comment: Comme nts: Day #1Reason for Laboratory Test Result Comment: This specimen has been REJECTED due to Laboratory criteria:POSSIBLE Contamination.[email or web address] has been notified of need of recollection.11/07/24 0338 Zeferino R Garcia Performed By: #### L 100.0500 ####[facility] [address] [place], [address] Comprehensive Metabolic Prof ilon 11-07-2024 Albumin [Mass/Vol] 1.6 g/dL Low 3.2-5.0 [facility] Comment on above: Performed By: #### L 3890.4000, L500.4050 ####[facility] [address] [place], [address] Albumin/Globulin [Mass ratio] 0.4 {ratio} Low 0.9-2.4 [facility] Comment on above: Performed By: #### L 3890.4000, L500.4050 ####[facility] [address] [place], [address] ALK P 116 U/L Normal 45-117 [facility] Comment on above: Performed By: #### L 3890.4000, L500.4050 ####[facility] [address] [place], [address] ALT [Catalytic activity/Vol] 14 U/L Normal 13-56 [facility] Comment on above: Performed By: #### L 3890.4000, L500.4050 ####[facility] [address] [place], [address] AST [Catalytic activity/Vol] 25 U/L Normal 15-37 [facility] Comment on above: Performed By: #### L 3890.4000, L500.4050 ####[facility] [address] [place], [address] Bilirubin [Mass/Vol] 0.10 mg/dL Low 0.20-1.[address] [facility] Comment on above: Result Comment: For patients on eltrombopag therapy, use of Dimension [place] TBIL is not recommended. Performed By: #### L 3890.4000, L500.4050 ####[facility] [address] [place], [address] BUN/CRE 12.2 RATIO Normal 10-20 [facility] Comment on above: Performed By: #### L 3890.4000, L500.4050 ####[facility] [address] [place], [address] CA,Total 7.3 mg/dL Low 8.5-10.1 [facility] Comment on above: Performed By: #### L 3890.4000, L500.4050 ####[facility] [address] [place], [address] Chloride [Moles/Vol] 99 mmol/L Normal 98-[address] [facility] Comment on above: Performed By: #### L 3890.4000, L500.4050 ####[facility] [address] [place], [address] CO2 [Moles/Vol] 20.0 mmol/L Low 21.0-32.0 [facility] Comment on above: Performed By: #### L 3890.4000, L500.4050 ####[facility] [address] [place], [address] Creatinine [Mass/Vol] 1.31 mg/dL High 0.55-1.02 [facility] Comment on above: Result Comment: The validity of the calculated GFR GFRAA in patients over70 years has not been determined. Clinical correlation isessential. Performed By: #### L 3890.4000, L500.4050 ####[facility] [address] [place], [address] ECRCL 67.66 ml/min Normal [facility] Comment on above: Performed By: #### L 3890.4000, L500.4050 ####[facility] [address] [place], [address] EST GFR - AA 61 mL/min Normal >60 [facility] Comment on above: Result Comment: Afri can Syrian GFR Calc Performed By: #### L 3890.4000, L500.4050 ####[facility] [address] [place], [address] GAP 10 Normal 5-15 [facility] Comment on above: Performed By: #### L 3890.4000, L500.4050 ####[facility] [address] [place], [address] GFR/1.73 sq M.predicted among non-blacks MDRD (S/P/Bld) [Vol rate/Area] 50 mL/min/{1.73_m2} Low >60 [facility] Comment on above: Result Comment: Non- GFR Calc Performed By: #### L 3890.4000, L500.4050 ####[facility] [address] [place], [address] Globulin (S) [Mass/Vol] 3.6 g/dL Normal 2.2-4.2 [facility] Comment on above: Performed By: #### L 3890.4000, L500.4050 ####[facility] [address] [place], [address] Glucose [Mass/Vol] 203 mg/dL High 74-106 [facility] Comment on above: Result Comment: Gluc ose result greater than or equal to 200 mg/dLsuggests DIABETES MELLITUS per A.D.A. criteria. Performed By: #### L 3890.4000, L500.4050 ####[facility] [address] [place], [address] Potassium [Moles/Vol] 4.3 mmol/L Normal 3.5-5.1 [facility] Comment on above: Performed By: #### L 3890.4000, L500.4050 ####[facility] [address] [place], [address] Sodium [Moles/Vol] 128 mmol/L Low 136-145 [facility] Comment on above: Performed By: #### L 3890.4000, L500.4050 ####[facility] [address] [place], [address] T PROT 5.2 g/dL Low 6.4-8.2 [facility] Comment on above: Performed By: #### L 3890.4000, L500.4050 ####[facility] [address] [place], [address] Urea nitrogen [Mass/Vol] 16 mg/dL Normal 7-18 [facility] Comment on above: Performed By: #### L 3890.4000, L500.4050 ####[facility] [address] [place], [address] ALB Normal 3.2-5.0 [facility] Comment on above: Result Comment: @DUP LICATE Performed By: #### L 500.4050 ####[facility] [address] [place], [address] ALK P Normal 45-117 [facility] Comment on above: Result Comment: @DUP LICATE Performed By: #### L 500.4050 ####[facility] [address] [place], [address] ALT Normal 13-56 [facility] Comment on above: Result Comment: @DUP LICATE Performed By: #### L 500.4050 ####[facility] [address] [place], [address] AST Normal 15-37 [facility] Comment on above: Result Comment: @DUP LICATE Performed By: #### L 500.4050 ####[facility] [address] [place], [address] BUN Normal 7-18 [facility] Comment on above: Result Comment: @DUP LICATE Performed By: #### L 500.4050 ####[facility] [address] [place], [address] BUN/CRE Normal 10-20 [facility] Comment on above: Result Comment: @DUP LICATE Performed By: #### L 500.4050 ####[facility] [address] [place], [address] CA,Total Normal 8.5-10.1 [facility] Comment on above: Result Comment: @DUP LICATE Performed By: #### L 500.4050 ####[facility] [address] [place], [address] CL Normal 98-107 [facility] Comment on above: Result Comment: @DUP LICATE Performed By: #### L 500.4050 ####[facility] [address] [place], [address] CO2 Normal 21.0-32.0 [facility] Comment on above: Result Comment: @DUP LICATE Performed By: #### L 500.4050 ####[facility] [address] [place], [address] CREAT,SERUM Normal 0.55-1.02 [facility] Comment on above: Result Comment: @DUP LICATE Performed By: #### L 500.4050 ####[facility] [address] [place], [address] EST GFR Normal >60 [facility] Comment on above: Result Comment: @DUP LICATE Performed By: #### L 500.4050 ####[facility] [address] [place], [address] EST GFR - AA Normal >60 [facility] Comment on above: Result Comment: @DUP LICATE Performed By: #### L 500.4050 ####[facility] [address] [place], [address] GAP Normal 5-15 [facility] Comment on above: Result Comment: @DUP LICATE Performed By: #### L 500.4050 ####[facility] [address] [place], [address] GLU Normal 74-106 [facility] Comment on above: Result Comment: @DUP LICATE Performed By: #### L 500.4050 ####[facility] [address] [place], [address] Potassium Normal 3.5-5.1 [facility] Comment on above: Result Comment: @DUP LICATE Performed By: #### L 500.4050 ####[facility] [address] [place], [address] T BILI Normal 0.20-1.00 [facility] Comment on above: Result Comment: @DUP LICATE Performed By: #### L 500.4050 ####[facility] [address] [place], [address] T PROT Normal 6.4-8.2 [facility] Comment on above: Result Comment: @DUP LICATE Performed By: #### L 500.4050 ####[facility] [address] [place], [address] Comprehensive Metabolic Profil Normal 136-145 [facility] Comment on above: Result Comment: @DUP LICATE Performed By: #### L 500.4050 ####[facility] [address] [place], [address] Albumin [Mass/Vol] 1.5 g/dL Low 3.2-5.0 [facility] Comment on above: Order Comment: ARGENTINA Polanco PREVIOUS SPECIMEN REJECTED DUE TOPOSSIBLE CONTAMINATION. 11/07/24 0342 Zeferino Garcia. Performed By: #### L 501.5200, L500.4050 ####[facility] [address] [place], [address] Albumin/Globulin [Mass ratio] 0.5 {ratio} Low 0.9-2.4 [facility] Comment on above: Order Comment: REDRA W. PREVIOUS SPECIMEN REJECTED DUE TOPOSSIBLE CONTAMINATION. 11/07/24341 Zeferino R Garcia. Performed By: #### L 501.5200, L500.4050 ####[facility] [address] [place], [address] ALK P 111 U/L Normal 45-117 [facility] Comment on above: Order Comment: REDRA W. PREVIOUS SPECIMEN REJECTED DUE TOPOSSIBLE CONTAMINATION. 11/07/24341 Zeferino R Garcia. Performed By: #### L 501.5200, L500.4050 ####[facility] [address] [place], [address] ALT [Catalytic activity/Vol] 14 U/L Normal 13-56 [facility] Comment on above: Order Comment: REDRA W. PREVIOUS SPECIMEN REJECTED DUE TOPOSSIBLE CONTAMINATION. 11/07/24341 Zeferino R Garcia. Performed By: #### L 501.5200, L500.4050 ####[facility] [address] [place], [address] AST [Catalytic activity/Vol] 21 U/L Normal 15-37 [facility] Comment on above: Order Comment: REDRA W. PREVIOUS SPECIMEN REJECTED DUE TOPOSSIBLE CONTAMINATION. 11/07/24341 Zeferino R Garcia. Performed By: #### L 501.5200, L500.4050 ####[facility] [address] [place], [address] Bilirubin [Mass/Vol] 0.20 mg/dL Normal 0.20-1.[address] [facility] Comment on above: Order Comment: REDRA W. PREVIOUS SPECIMEN REJECTED DUE TOPOSSIBLE CONTAMINATION. 11/07/24341 Zeferino R Garcia. Result Comment: For patients on eltrombopag therapy, use of Dimension [place] TBIL is not recommended. Performed By: #### L 501.5200, L500.4050 ####[facility] [address] [place], [address] BUN/CRE 12.9 RATIO Normal 10-20 [facility] Comment on above: Order Comment: REDRA W. PREVIOUS SPECIMEN REJECTED DUE TOPOSSIBLE CONTAMINATION. 11/07/24341 Zeferino R Garcia. Performed By: #### L 501.5200, L500.4050 ####[facility] [address] [place], [address] CA,Total 7.7 mg/dL Low 8.5-10.1 [facility] Comment on above: Order Comment: REDRA W. PREVIOUS SPECIMEN REJECTED DUE TOPOSSIBLE CONTAMINATION. 11/07/24341 Zeferino R Garcia. Performed By: #### L 501.5200, L500.4050 ####[facility] [address] [place], [address] Chloride [Moles/Vol] 101 mmol/L Normal 98-[address] [facility] Comment on above: Order Comment: REDRA W. PREVIOUS SPECIMEN REJECTED DUE TOPOSSIBLE CONTAMINATION. 11/07/24341 Zeferino R Garcia. Performed By: #### L 501.5200, L500.4050 ####[facility] [address] [place], [address] CO2 [Moles/Vol] 21.0 mmol/L Normal 21.0-32.0 [facility] Comment on above: Order Comment: REDRA W. PREVIOUS SPECIMEN REJECTED DUE TOPOSSIBLE CONTAMINATION. 11/07/24341 Zeferino R Garcia. Performed By: #### L 501.5200, L500.4050 ####[facility] [address] [place], [address] Creatinine [Mass/Vol] 1.40 mg/dL High 0.55-1.02 [facility] Comment on above: Order Comment: REDRA W. PREVIOUS SPECIMEN REJECTED DUE TOPOSSIBLE CONTAMINATION. 11/07/24341 Zeferino R Garcia. Result Comment: The validity of the calculated GFR GFRAA in patients over70 years has not been determined. Clinical correlation isessential. Performed By: #### L 501.5200, L500.4050 ####[facility] [address] [place], [address] EST GFR - AA 56 mL/min Low >60 [facility] Comment on above: Order Comment: REDRA W. PREVIOUS SPECIMEN REJECTED DUE TOPOSSIBLE CONTAMINATION. 11/07/24341 Zeferino R Garcia. Result Comment: Afri can Syrian GFR Calc Performed By: #### L 501.5200, L500.4050 ####[facility] [address] [place], [address] GAP 7 Normal 5-15 [facility] Comment on above: Order Comment: REDRA W. PREVIOUS SPECIMEN REJECTED DUE TOPOSSIBLE CONTAMINATION. 11/07/24341 Zeferino R Garcia. Performed By: #### L 501.5200, L500.4050 ####[facility] [address] [place], [address] GFR/1.73 sq M.predicted among non-blacks MDRD (S/P/Bld) [Vol rate/Area] 46 mL/min/{1.73_m2} Low >60 [facility] Comment on above: Order Comment: REDRA W. PREVIOUS SPECIMEN REJECTED DUE TOPOSSIBLE CONTAMINATION. 11/07/24341 Zeferino R Garcia. Result Comment: Non- GFR Calc Performed By: #### L 501.5200, L500.4050 ####[facility] [address] [place], [address] Globulin (S) [Mass/Vol] 3.3 g/dL Normal 2.2-4.2 [facility] Comment on above: Order Comment: REDRA W. PREVIOUS SPECIMEN REJECTED DUE TOPOSSIBLE CONTAMINATION. 11/07/24341 Zeferino R Garcia. Performed By: #### L 501.5200, L500.4050 ####[facility] [address] [place], [address] Glucose [Mass/Vol] 315 mg/dL High 74-106 [facility] Comment on above: Order Comment: RED W. PREVIOUS SPECIMEN REJECTED DUE TOPOSSIBLE CONTAMINATION. 11/07/24341 Zeferino R Garcia. Result Comment: Gluc ose result greater than or equal to 200 mg/dLsuggests DIABETES MELLITUS per A.D.A. criteria. Performed By: #### L 501.5200, L500.4050 ####[facility] [address] [place], [address] Potassium [Moles/Vol] 5.3 mmol/L High 3.5-5.1 [facility] Comment on above: Order Comment: REDRA W. PREVIOUS SPECIMEN REJECTED DUE TOPOSSIBLE CONTAMINATION. 11/07/24341 Zeferino R Garcia. Performed By: #### L 501.5200, L500.4050 ####[facility] [address] [place], [address] Sodium [Moles/Vol] 130 mmol/L Low 136-145 [facility] Comment on above: Order Comment: RED W. PREVIOUS SPECIMEN REJECTED DUE TOPOSSIBLE CONTAMINATION. 11/07/24341 Zeferino R Garcia. Performed By: #### L 501.5200, L500.4050 ####[facility] [address] [place], [address] T PROT 4.8 g/dL Low 6.4-8.2 [facility] Comment on above: Order Comment: REDRA W. PREVIOUS SPECIMEN REJECTED DUE TOPOSSIBLE CONTAMINATION. 11/07/24341 Zeferino R Garcia. Performed By: #### L 501.5200, L500.4050 ####[facility] [address] [place], [address] Urea nitrogen [Mass/Vol] 18 mg/dL Normal 7-18 [facility] Comment on above: Order Comment: REDRA W. PREVIOUS SPECIMEN REJECTED DUE TOPOSSIBLE CONTAMINATION. 11/07/24 0342 Zeferino Garcia. Performed By: #### L 501.5200, L500.4050 ####[facility] [address] [place], [address] ALB Normal 3.2-5.0 [facility] Comment on above: Result Comment: This specimen has been REJECTED due to Laboratory criteria:POSSIBLE Contamination.[email or web address] has been notified of need of recollection. Performed By: #### L 500.4050 ####[facility] [address] [place], [address] ALK P Normal 45-117 [facility] Comment on above: Result Comment: This specimen has been REJECTED due to Laboratory criteria:POSSIBLE Contamination.[email or web address] has been notified of need of recollection. Performed By: #### L 500.4050 ####[facility] [address] [place], [address] ALT Normal 13-56 [facility] Comment on above: Result Comment: This specimen has been REJECTED due to Laboratory criteria:POSSIBLE Contamination.[email or web address] has been notified of need of recollection. Performed By: #### L 500.4050 ####[facility] [address] [place], [address] AST Normal 15-37 [facility] Comment on above: Result Comment: This specimen has been REJECTED due to Laboratory criteria:POSSIBLE Contamination.[email or web address] has been notified of need of recollection. Performed By: #### L 500.4050 ####[facility] [address] [place], [address] BUN Normal 7-18 [facility] Comment on above: Result Comment: This specimen has been REJECTED due to Laboratory criteria:POSSIBLE Contamination.[email or web address] has been notified of need of recollection. Performed By: #### L 500.4050 ####[facility] [address] [place], [address] BUN/CRE Normal 10-20 [facility] Comment on above: Result Comment: This specimen has been REJECTED due to Laboratory criteria:POSSIBLE Contamination.[email or web address] has been notified of need of recollection. Performed By: #### L 500.4050 ####[facility] [address] [place], [address] CA,Total Normal 8.5-10.1 [facility] Comment on above: Result Comment: This specimen has been REJECTED due to Laboratory criteria:POSSIBLE Contamination.[email or web address] has been notified of need of recollection. Performed By: #### L 500.4050 ####[facility] [address] [place], [address] CL Normal 98-107 [facility] Comment on above: Result Comment: This specimen has been REJECTED due to Laboratory criteria:POSSIBLE Contamination.[email or web address] has been notified of need of recollection. Performed By: #### L 500.4050 ####[facility] [address] [place], [address] CO2 Normal 21.0-32.0 [facility] Comment on above: Result Comment: This specimen has been REJECTED due to Laboratory criteria:POSSIBLE Contamination.[email or web address] has been notified of need of recollection. Performed By: #### L 500.4050 ####[facility] [address] [facility] [address] CREAT,SERUM Normal 0.55-1.02 [facility] Comment on above: Result Comment: This specimen has been REJECTED due to Laboratory criteria:POSSIBLE Contamination.[email or web address] has been notified of need of recollection. Performed By: #### L 500.4050 ####[facility] [address] [place], [address] EST GFR Normal >60 [facility] Comment on above: Result Comment: This specimen has been REJECTED due to Laboratory criteria:POSSIBLE Contamination.[email or web address] has been notified of need of recollection. Performed By: #### L 500.4050 ####[facility] [address] [place], [address] EST GFR - AA Normal >60 [facility] Comment on above: Result Comment: This specimen has been REJECTED due to Laboratory criteria:POSSIBLE Contamination.[email or web address] has been notified of need of recollection. Performed By: #### L 500.4050 ####[facility] [address] [place], [address] GAP Normal 5-15 [facility] Comment on above: Result Comment: This specimen has been REJECTED due to Laboratory criteria:POSSIBLE Contamination.[email or web address] has been notified of need of recollection. Performed By: #### L 500.4050 ####[facility] [address] [place], [address] GLU Normal 74-106 [facility] Comment on above: Result Comment: This specimen has been REJECTED due to Laboratory criteria:POSSIBLE Contamination.[email or web address] has been notified of need of recollection. Performed By: #### L 500.4050 ####[facility] [address] [place], [address] Potassium Normal 3.5-5.1 [facility] Comment on above: Result Comment: This specimen has been REJECTED due to Laboratory criteria:POSSIBLE Contamination.[email or web address] has been notified of need of recollection. Performed By: #### L 500.4050 ####[facility] [address] [place], [address] T BILI Normal 0.20-1.00 [facility] Comment on above: Result Comment: This specimen has been REJECTED due to Laboratory criteria:POSSIBLE Contamination.[email or web address] has been notified of need of recollection. Performed By: #### L 500.4050 ####[facility] [address] [place], [address] T PROT Normal 6.4-8.2 [facility] Comment on above: Result Comment: This specimen has been REJECTED due to Laboratory criteria:POSSIBLE Contamination.[email or web address] has been notified of need of recollection. Performed By: #### L 500.4050 ####[facility] [address] [place], [place], [address] Comprehensive Metabolic Profil Normal 136-145 [facility] Comment on above: Result Comment: This specimen has been REJECTED due to Laboratory criteria:POSSIBLE Contamination.[email or web address] has been notified of need of recollection. Performed By: #### L 500.4050 ####[facility] [address] [place], [address] Hemoglobin A1con 11-07-2024 HbA1c (Bld) [Mass fraction] 9.7 % High 3.8-5.6 [facility] Comment on above: Order Comment: ARGENTINA Gonzalez. PREVIOUS SPECIMEN REJECTED DUE TOCONTAMINATION. 11/07/24348 Zeferino Garcia. Result Comment: Norm al < 5.7 % Prediabetic 5.7 - 6.4 % Diabetic >or= 6.5 % Please note range changes. Performed By: #### L 501.9985 ####[facility] [address] [place], [place], [address] HbA1c (Bld) [Mass fraction] 10.3 % High 3.8-5.6 [facility] Comment on above: Order Comment: This specimen has been REJECTED due to Laboratory criteria:Contaminated/Leaked.[email or web address] has been notified of need of recollection.11/07/24348 Zeferino R Garcia Result Comment: This specimen has been REJECTED due to Laboratory criteria:Contaminated/Leaked.[email or web address] has been notified of need of recollection.11/07/24348 Zeferino R Garcia Normal < 5.7 % Prediabetic 5.7 - 6.4 % Diabetic >or= 6.5 % Please note range changes. Performed By: #### L 501.9985 ####[facility] [address] [place], [place], [address] Magnesiumon 11-07-2024 Magnesium [Mass/Vol] 4.3 mg/dL High 1.6-2.[address] [facility] Comment on above: Result Comment: Mode rate Hemolysis, Result may be falsely increased. Performed By: #### L 501.5200 ####[facility] [address] [place], [place], [address] Magnesium [Mass/Vol] 8.1 mg/dL Invalid Interpretation Code 1.6-2.6 [facility] Comment on above: Order Comment: Comme nts: Add onto previous sample please Result Comment: Crit ical Result(s) Called at: 13:52:08 11/07/2024 by:Tesha Weems to [facility] [place] Results read back by same. Performed By: #### L 501.5200 ####[facility] [address] [place], [place], [phone] Magnesium [Mass/Vol] 6.2 mg/dL Invalid Interpretation Code 1.6-2.6 [facility] Comment on above: Order Comment: ARGENTINA Gonzalez. PREVIOUS SPECIMEN REJECTED DUE TOPOSSIBLE CONTAMINATION. 11/07/24 0342 Zeferino Garcia. Result Comment: Crit ical Result(s) Called at: 04:01:56 11/07/2024 by: Josefa. TO TMIIPATRICK INSPECTOR BALL POINTS. SPOKE ABOUT RESULTS, NURSE OKWITH THEM. Results read back by same. Performed By: #### L 501.5200, L500.4050 ####[facility] [address] [place], [address] Partial Thromboplast Timeon 11-07-2024 aPTT Coag (Bld) [Time] 25.5 s Normal 24.1-36.2 [facility] Comment on above: Performed By: #### L 300.3900, L300.4310 ####[facility] [address] [place], [address] Prothrombin Time w/INRon INR Coag (PPP) [Relative time] 0.9 {INR} Normal [facility] Comment on above: Performed By: #### L 300.3900, L300.4310 ####[facility] [address] [place], [address] PT Coag (PPP) [Time] 12.8 s Normal 11.7-14.[address] [facility] Comment on above: Performed By: #### L 300.3900, L300.4310 ####[facility] [address] [place], [address] Venous Blood Gason 5 Blood Gas Type ALBERTO [facility] Comment on above: Performed By: #### L 9000.0810 ####[facility] [address] [place], [address] CO2 [Moles/Vol] 16 mmol/L Low 23-33 [facility] Comment on above: Performed By: #### L 9000.0810 ####[facility] [address] [place], [address] FI02 21.0 [facility] Comment on above: Performed By: #### L 9000.0810 ####[facility] [address] [place], [address] HCO3 (Bld) [Moles/Vol] 16 mmol/L Low 22-26 [facility] Comment on above: Performed By: #### L 9000.0810 ####[facility] [address] [place], [address] O2 Delivery Dev Not entered [facility] Comment on above: Performed By: #### L 9000.0810 ####[facility] [address] [place], [address] SITE Not entered [facility] Comment on above: Performed By: #### L 9000.0810 ####[facility] [address] [place], [address] VBG BE -10 mmol/L Low -1.0-3.5 [facility] Comment on above: Performed By: #### L 9000.0810 ####[facility] [address] [place], [address] VBG pCO2 28.6 mmHg Low 41-51 [facility] Comment on above: Performed By: #### L 9000.0810 ####[facility] [address] [place], [address] VBG pH 7.34 Normal 7.32-7.42 [facility] Comment on above: Performed By: #### L 9000.0810 ####[facility] [address] [place], [address] VBG PO2 49 mmHg High 25-40 [facility] Comment on above: Performed By: #### L 9000.0810 ####[facility] [address] [place], [address] VBG SO2 83 High 50-70 [facility] Comment on above: Performed By: #### L 9000.0810 ####[facility] [address] [place], [address] Amphetamine, UR Confirmon AMP UR CONFIRM Normal [facility] Comment on above: Result Comment: WRON G CONTAINER SENT TO [facility] Performed By: #### L 3380.2100, L3890.6300, L3890.6100, L505.5002 ####[facility] [address] [place], [address] BRCon 11-06-[address] [facility] Comment on above: Result Comment: [id number] AP RC NOT [id number] AP RC TRANSFUSED 11/07/24 0325 Performed By: #### B RC ####[facility] [address] [place], [address] CBC W/Diff, Automatedon 01-0 Absolute Lymph 2.21 X10 3/uL Normal 0.83-4.51 [facility] Comment on above: Performed By: #### L 3890.6005, L400.0001, L3410.9999, L100.0100 ####[facility] [address] [place], [address] Absolute Neut 15.2 X10 3/uL High 2.0-7.7 [facility] Comment on above: Performed By: #### L 3890.6005, L400.0001, L3410.9999, L100.0100 ####[facility] [address] [place], [address] Basophils/100 WBC (Bld) 0.3 % Normal 0-1 [facility] Comment on above: Performed By: #### L 3890.6005, L400.0001, L3410.9999, L100.0100 ####[facility] [address] [place], [address] Eosinophils/100 WBC (Bld) 0.0 % Normal 0-5 [facility] Comment on above: Performed By: #### L 3890.6005, L400.0001, L3410.9999, L100.0100 ####[facility] [address] [place], [address] Erythrocyte distribution width (RBC) [Ratio] 14.6 % Normal 11.6-14.6 [facility] Comment on above: Performed By: #### L 3890.6005, L400.0001, L3410.9999, L100.0100 ####[facility] [address] [place], [address] Hematocrit (Bld) [Volume fraction] 37.4 % Normal 37-47 [facility] Comment on above: Performed By: #### L 3890.6005, L400.0001, L3410.9999, L100.0100 ####[facility] [address] [place], [address] Hemoglobin (Bld) [Mass/Vol] 12.5 g/dL Normal 12.0-15.0 [facility] Comment on above: Performed By: #### L 3890.6005, L400.0001, L3410.9999, L100.0100 ####[facility] [address] [place], [address] IG% 1.100 High 0.0-0.9 [facility] Comment on above: Result Comment: IG% - Immature Granulocytes (promyelocytes, myelocytes andmetamyelocytes) > 1% indicates that a LEFT SHIFT is Present. Performed By: #### L 3890.6005, L400.0001, L3410.9999, L100.0100 ####[facility] [address] [place], [address] Lymphocytes/100 WBC (Bld) 11.9 % Low 19-41 [facility] Comment on above: Performed By: #### L 3890.6005, L400.0001, L3410.9999, L100.0100 ####[facility] [address] [place], [address] MCH (RBC) [Entitic mass] 26.7 pg Low 27.0-32.0 [facility] Comment on above: Performed By: #### L 3890.6005, L400.0001, L3410.9999, L100.0100 ####[facility] [address] [place], [address] MCHC (RBC) [Mass/Vol] 33.4 g/dL Normal 32-36 [facility] Comment on above: Performed By: #### L 3890.6005, L400.0001, L3410.9999, L100.0100 ####[facility] [address] [place], [address] MCV (RBC) [Entitic vol] 79.9 fL Low 81-99 [facility] Comment on above: Performed By: #### L 3890.6005, L400.0001, L3410.9999, L100.0100 ####[facility] [address] [place], [address] Monocytes/100 WBC (Bld) 4.8 % Normal 0-10 [facility] Comment on above: Performed By: #### L 3890.6005, L400.0001, L3410.9999, L100.0100 ####[facility] [address] [place], [address] Neutrophils/100 WBC (Bld) 81.9 % High 47-70 [facility] Comment on above: Performed By: #### L 3890.6005, L400.0001, L3410.9999, L100.0100 ####[facility] [address] [place], [address] Nucleated RBC (Bld) [#/Vol] 0 10*3/uL Normal 0-5 [facility] Comment on above: Performed By: #### L 3890.6005, L400.0001, L3410.9999, L100.0100 ####[facility] [address] [place], [address] Platelet mean volume (Bld) [Entitic vol] 11.6 fL Normal 6.2-12.0 [facility] Comment on above: Performed By: #### L 3890.6005, L400.0001, L3410.9999, L100.0100 ####[facility] [address] [place], [address] Platelets (Bld) [#/Vol] 152 10*3/uL Normal 150-450 [facility] Comment on above: Performed By: #### L 3890.6005, L400.0001, L3410.9999, L100.0100 ####[facility] [address] [place], [address] RBC (Bld) [#/Vol] 4.68 10*6/uL Normal 4.2-5.4 [facility] Comment on above: Performed By: #### L 3890.6005, L400.0001, L3410.9999, L100.0100 ####[facility] [address] [place], [address] RDW SD 41.6 fl Normal 35.1-43.9 [facility] Comment on above: Performed By: #### L 3890.6005, L400.0001, L3410.9999, L100.0100 ####[facility] [address] [place], [address] WBC (Bld) [#/Vol] 18.6 10*3/uL High 4.4-11.0 [facility] Comment on above: Performed By: #### L 3890.6005, L400.0001, L3410.9999, L100.0100 ####[facility] [address] [place], [address] Absolute Neut Normal 2.0-7.7 [facility] Comment on above: Result Comment: DUPL ICATE ORDER. SEE H247 FOR RESULTS Performed By: #### L 100.0100 ####[facility] [address] [place], [address] HCT Normal 37-47 [facility] Comment on above: Result Comment: DUPL ICATE ORDER. SEE H247 FOR RESULTS Performed By: #### L 100.0100 ####[facility] [address] [place], [address] HGB Normal 12.0-15.0 [facility] Comment on above: Result Comment: DUPL ICATE ORDER. SEE H247 FOR RESULTS Performed By: #### L 100.0100 ####[facility] [address] [place], [address] MCH Normal 27.0-32.0 [facility] Comment on above: Result Comment: DUPL ICATE ORDER. SEE H247 FOR RESULTS Performed By: #### L 100.0100 ####[facility] [address] [place], [address] MCHC Normal 32-36 [facility] Comment on above: Result Comment: DUPL ICATE ORDER. SEE H247 FOR RESULTS Performed By: #### L 100.0100 ####[facility] [address] [place], [address] MCV Normal 81-99 [facility] Comment on above: Result Comment: DUPL ICATE ORDER. SEE H247 FOR RESULTS Performed By: #### L 100.0100 ####[facility] [address] [place], [address] NEUT% Normal 47-70 [facility] Comment on above: Result Comment: DUPL ICATE ORDER. SEE H247 FOR RESULTS Performed By: #### L 100.0100 ####[facility] [address] [place], [address] PLT Normal 150-450 [facility] Comment on above: Result Comment: DUPL ICATE ORDER. SEE H247 FOR RESULTS Performed By: #### L 100.0100 ####[facility] [facility] [address] [place], [address] RBC Normal 4.2-5.4 [facility] Comment on above: Result Comment: DUPL ICATE ORDER. SEE H247 FOR RESULTS Performed By: #### L 100.0100 ####[facility] [address] [place], [address] RDW CV Normal 11.6-14.6 [facility] Comment on above: Result Comment: DUPL ICATE ORDER. SEE H247 FOR RESULTS Performed By: #### L 100.0100 ####[facility] [address] [place], [address] RDW SD Normal 35.1-43.9 [facility] Comment on above: Result Comment: DUPL ICATE ORDER. SEE H247 FOR RESULTS Performed By: #### L 100.0100 ####[facility] [address] [place], [address] WBC Normal 4.4-11.0 [facility] Comment on above: Result Comment: DUPL ICATE ORDER. SEE H247 FOR RESULTS Performed By: #### L 100.0100 ####[facility] [address] [place], [address] Absolute Lymph 3.91 X10 3/uL Normal 0.83-4.51 [facility] Comment on above: Performed By: #### L 300.3900, L300.4310, L100.0100, L300.4700 ####[facility] [address] [place], [address] Absolute Neut 6.5 X10 3/uL Normal 2.0-7.7 [facility] Comment on above: Performed By: #### L 300.3900, L300.4310, L100.0100, L300.4700 ####[facility] [address] [place], [address] Basophils/100 WBC (Bld) 0.3 % Normal 0-1 [facility] Comment on above: Performed By: #### L 300.3900, L300.4310, L100.0100, L300.4700 ####[facility] [address] [place], [address] Eosinophils/100 WBC (Bld) 0.1 % Normal 0-5 [facility] Comment on above: Performed By: #### L 300.3900, L300.4310, L100.0100, L300.4700 ####[facility] [address] [place], [address] Erythrocyte distribution width (RBC) [Ratio] 14.4 % Normal 11.6-14.6 [facility] Comment on above: Performed By: #### L 300.3900, L300.4310, L100.0100, L300.4700 ####[facility] [address] [place], [address] Hematocrit (Bld) [Volume fraction] 42.1 % Normal 37-47 [facility] Comment on above: Performed By: #### L 300.3900, L300.4310, L100.0100, L300.4700 ####[facility] [address] [place], [address] Hemoglobin (Bld) [Mass/Vol] 13.5 g/dL Normal 12.0-15.0 [facility] Comment on above: Performed By: #### L 300.3900, L300.4310, L100.0100, L300.4700 ####[facility] [address] [place], [address] IG% 1.300 High 0.0-0.9 [facility] Comment on above: Result Comment: IG% - Immature Granulocytes (promyelocytes, myelocytes andmetamyelocytes) > 1% indicates that a LEFT SHIFT is Present. Performed By: #### L 300.3900, L300.4310, L100.0100, L300.4700 ####[facility] [address] [place], [address] Lymphocytes/100 WBC (Bld) 34.7 % Normal 19-41 [facility] Comment on above: Performed By: #### L 300.3900, L300.4310, L100.0100, L300.4700 ####[facility] [address] [place], [address] MCH (RBC) [Entitic mass] 26.0 pg Low 27.0-32.0 [facility] Comment on above: Performed By: #### L 300.3900, L300.4310, L100.0100, L300.4700 ####[facility] [address] [place], [address] MCHC (RBC) [Mass/Vol] 32.1 g/dL Normal 32-36 [facility] Comment on above: Performed By: #### L 300.3900, L300.4310, L100.0100, L300.4700 ####[facility] [address] [place], [address] MCV (RBC) [Entitic vol] 81.0 fL Normal 81-99 [facility] Comment on above: Performed By: #### L 300.3900, L300.4310, L100.0100, L300.4700 ####[facility] [address] [place], [address] Monocytes/100 WBC (Bld) 5.9 % Normal 0-10 [facility] Comment on above: Performed By: #### L 300.3900, L300.4310, L100.0100, L300.4700 ####[facility] [address] [place], [address] Neutrophils/100 WBC (Bld) 57.7 % Normal 47-70 [facility] Comment on above: Performed By: #### L 300.3900, L300.4310, L100.0100, L300.4700 ####[facility] [address] [place], [address] Nucleated RBC (Bld) [#/Vol] 0 10*3/uL Normal 0-5 [facility] Comment on above: Performed By: #### L 300.3900, L300.4310, L100.0100, L300.4700 ####[facility] [address] [place], [address] Platelet mean volume (Bld) [Entitic vol] 12.0 fL Normal 6.2-12.0 [facility] Comment on above: Performed By: #### L 300.3900, L300.4310, L100.0100, L300.4700 ####[facility] [address] [place], [address] Platelets (Bld) [#/Vol] 166 10*3/uL Normal 150-450 [facility] Comment on above: Performed By: #### L 300.3900, L300.4310, L100.0100, L300.4700 ####[facility] [address] [place], [address] RBC (Bld) [#/Vol] 5.20 10*6/uL Normal 4.2-5.4 [facility] Comment on above: Performed By: #### L 300.3900, L300.4310, L100.0100, L300.4700 ####[facility] [address] [place], [address] RDW SD 41.5 fl Normal 35.1-43.9 [facility] Comment on above: Performed By: #### L 300.3900, L300.4310, L100.0100, L300.4700 ####[facility] [address] [place], [address] WBC (Bld) [#/Vol] 11.3 10*3/uL High 4.4-11.0 [facility] Comment on above: Performed By: #### L 300.3900, L300.4310, L100.0100, L300.4700 ####[facility] [address] [place], [address] Absolute Neut Normal 2.0-7.7 [facility] Comment on above: Result Comment: DUPL ICATE. SEE 0108 H225 Performed By: #### B TS, L100.0100 ####[facility] [address] [place], [address] HCT Normal 37-47 [facility] Comment on above: Result Comment: DUPL ICATE. SEE 0108 H225 Performed By: #### B ZION, L100.0100 ####[facility] [address] [place], [address] HGB Normal 12.0-15.0 [facility] Comment on above: Result Comment: DUPL ICATE. SEE 0108 H225 Performed By: #### B ZION, L100.0100 ####[facility] [address] [place], [address] MCH Normal 27.0-32.0 [facility] Comment on above: Result Comment: DUPL ICATE. SEE 0108 H225 Performed By: #### Michelle DONOVAN, L100.0100 ####[facility] [address] [place], [address] MCHC Normal 32-36 [facility] Comment on above: Result Comment: DUPL ICATE. SEE 0108 H225 Performed By: #### B ZION, L100.0100 ####[facility] [address] [place], [address] MCV Normal 81-99 [facility] Comment on above: Result Comment: DUPL ICATE. SEE 0108 H225 Performed By: #### B ZION, L100.0100 ####[facility] [address] [place], [address] NEUT% Normal 47-70 [facility] Comment on above: Result Comment: DUPL ICATE. SEE 0108 H225 Performed By: #### B ZION, L100.0100 ####[facility] [address] [place], [address] PLT Normal 150-450 [facility] Comment on above: Result Comment: DUPL ICATE. SEE 0108 H225 Performed By: #### B TS, L100.0100 ####[facility] [address] [place], [address] RBC Normal 4.2-5.4 [facility] Comment on above: Result Comment: DUPL ICATE. SEE 0108 H225 Performed By: #### B TS, L100.0100 ####[facility] [address] [place], [address] RDW CV Normal 11.6-14.6 [facility] Comment on above: Result Comment: DUPL ICATE. SEE 0108 H225 Performed By: #### B ZION, L100.0100 ####[facility] [address] [place], [address] RDW SD Normal 35.1-43.9 [facility] Comment on above: Result Comment: DUPL ICATE. SEE 010 H225 Performed By: #### B TS, L100.0100 ####[facility] [address] [place], [address] WBC Normal 4.4-11.0 [facility] Comment on above: Result Comment: DUPL ICATE. SEE 0108 H225 Performed By: #### B TS, L100.0100 ####[facility] [address] [place], [address] Comprehensive Metabolic Prof ilon 11-06-2024 Albumin [Mass/Vol] 1.5 g/dL Low 3.2-5.0 [facility] Comment on above: Performed By: #### L 500.4050, L501.0900 ####[facility] [address] [place], [address] Albumin/Globulin [Mass ratio] 0.5 {ratio} Low 0.9-2.4 [facility] Comment on above: Performed By: #### L 500.4050, L501.0900 ####[facility] [address] [place], [address] ALK P 114 U/L Normal 45-117 [facility] Comment on above: Performed By: #### L 500.4050, L501.0900 ####[facility] [address] [place], [address] ALT [Catalytic activity/Vol] 13 U/L Normal 13-56 [facility] Comment on above: Performed By: #### L 500.4050, L501.0900 ####[facility] [address] [place], [address] AST [Catalytic activity/Vol] 25 U/L Normal 15-37 [facility] Comment on above: Performed By: #### L 500.4050, L501.0900 ####[facility] [address] [place], [address] Bilirubin [Mass/Vol] 0.20 mg/dL Normal 0.20-1.[address] [facility] Comment on above: Result Comment: For patients on eltrombopag therapy, use of Dimension [place] TBIL is not recommended. Performed By: #### L 500.4050, L501.0900 ####[facility] [address] [place], [address] BUN/CRE 12.0 RATIO Normal 10-20 [facility] Comment on above: Performed By: #### L 500.4050, L501.0900 ####[facility] [address] [place], [address] CA,Total 7.6 mg/dL Low 8.5-10.1 [facility] Comment on above: Performed By: #### L 500.4050, L501.0900 ####[facility] [address] [place], [address] Chloride [Moles/Vol] 99 mmol/L Normal 98-[address] [facility] Comment on above: Performed By: #### L 500.4050, L501.0900 ####[facility] [address] [place], [address] CO2 [Moles/Vol] 21.0 mmol/L Normal 21.0-32.0 [facility] Comment on above: Performed By: #### L 500.4050, L501.0900 ####[facility] [address] [place], [address] Creatinine [Mass/Vol] 1.33 mg/dL High 0.55-1.02 [facility] Comment on above: Result Comment: The validity of the calculated GFR GFRAA in patients over70 years has not been determined. Clinical correlation isessential. Performed By: #### L 500.4050, L501.0900 ####[facility] [address] [place], [address] EST GFR - AA 60 mL/min Normal >60 [facility] Comment on above: Result Comment: Afri can Syrian GFR Calc Performed By: #### L 500.4050, L501.0900 ####[facility] [address] [place], [address] GAP 8 Normal 5-15 [facility] Comment on above: Performed By: #### L 500.4050, L501.0900 ####[facility] [address] [place], [address] GFR/1.73 sq M.predicted among non-blacks MDRD (S/P/Bld) [Vol rate/Area] 49 mL/min/{1.73_m2} Low >60 [facility] Comment on above: Result Comment: Non- GFR Calc Performed By: #### L 500.4050, L501.0900 ####[facility] [address] [place], [address] Globulin (S) [Mass/Vol] 3.2 g/dL Normal 2.2-4.2 [facility] Comment on above: Performed By: #### L 500.4050, L501.0900 ####[facility] [address] [place], [address] Glucose [Mass/Vol] 289 mg/dL High 74-106 [facility] Comment on above: Result Comment: Gluc ose result greater than or equal to 200 mg/dLsuggests DIABETES MELLITUS per A.D.A. criteria. Performed By: #### L 500.4050, L501.0900 ####[facility] [address] [place], [address] Potassium [Moles/Vol] 5.6 mmol/L High 3.5-5.1 [facility] Comment on above: Performed By: #### L 500.4050, L501.0900 ####[facility] [address] [place], [address] Sodium [Moles/Vol] 128 mmol/L Low 136-145 [facility] Comment on above: Performed By: #### L 500.4050, L501.0900 ####[facility] [address] [place], [address] T PROT 4.7 g/dL Low 6.4-8.2 [facility] Comment on above: Performed By: #### L 500.4050, L501.0900 ####[facility] [address] [place], [address] Urea nitrogen [Mass/Vol] 16 mg/dL Normal 7-18 [facility] Comment on above: Performed By: #### L 500.4050, L501.0900 ####[facility] [address] [place], [address] Discharge Instructionon 01-0 8-2025 Discharge Instruction Normal [facility] Fibrinogenon 11-06-2024 FIBRINOGEN 506 mg/dl High -444 [facility] Comment on above: Performed By: #### L 300.4700 ####[facility] [address] [place], [address] FIBRINOGEN 591 mg/dl High -444 [facility] Comment on above: Performed By: #### L 300.3900, L300.4310, L100.0100, L300.4700 ####[facility] [address] 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 HIV - WCHon 11-06-2024 HIV Preliminary Reactive Abnormal Nonreactive [facility] Comment on above: Result Comment: Crit ical Result(s) Called at: 18:06:24 11/06/2024 by: RISHABH TO TAMAR RAJPUT . Results read back by same. SEND OUT PRESUMPTIVE REACTIVE SPECIMENS TO [facility] TEST NUMBER [id number] FOR CONFIRMATION. Performed By: #### L 3890.6005, L400.0001, L3410.9999, L100.0100 ####[facility] [address] [place], [address] Hepatitis B Surface Antigeno n 11-06-2024 HEP B Surf Ag Non-Reactive Normal Nonreactive [facility] Comment on above: Order Comment: Reaso n for Exam: npc Performed By: #### L 3380.2100, L3890.6300, L3890.6100, L505.5002 ####[facility] [address] [place], [address] Hepatitis C Antibodyon 11-06 Hepatitis C AB Non-Reactive Normal Nonreactive [facility] Comment on above: Order Comment: Reaso n for Exam: npc Result Comment: Non Reactive: < 0.8 Equivocal: >/= 0.8 to < 1.0 Reactive: >/= 1.0The [facility] requires that a reactive/equivocal HCV antibodyresult be sent out for confirmation. HCV Quant by PCRtesting. Performed By: #### L 3380.2100, L3890.6300, L3890.6100, L505.5002 ####[facility] [address] [place], [address] L509.8000on 11-06-2024 Syphilis Abs Non-Reactive Normal [facility] Comment on above: Performed By: #### L 509.8000, L509.4005 ####[facility] [address] [place], [address] M8200.2203on 11-06-2024 M8200.2203 Pending Chlamydia Trachomatis PCR NEGATIVE for Chlamydia trachomatis N. gonorrhoeae PCR Negative for N. gonorrhoeae Normal [facility] Comment on above: Performed By: #### M 8200.2203 ####[facility] [address] [place], [address] Operative Reporton Operative Report Normal [facility] Partial Thromboplast Timeon 11-06-2024 aPTT Coag (Bld) [Time] 27.3 s Normal 24.1-36.2 [facility] Comment on above: Performed By: #### L 300.3900, L300.4310, L100.0100, L300.4700 ####[facility] [address] [place], [address] Protein+Creatinine Ratio,Uri neon 11-06-2024 PROT:CRE RATIO 3224 mg/g CRE High 0-200 [facility] Comment on above: Performed By: #### L 500.4050, L501.0900 ####[facility] [address] [place], [address] Protein (U) [Mass/Vol] 239.9 mg/dL High <11.9 [facility] Comment on above: Performed By: #### L 500.4050, L501.0900 ####[facility] [address] [place], [address] UR CREAT 74.40 mg/dL Normal NO RANGE EST. [facility] Comment on above: Performed By: #### L 500.4050, L501.0900 ####[facility] [address] [place], [address] Prothrombin Time w/INRon INR Coag (PPP) [Relative time] 1.0 {INR} Normal [facility] Comment on above: Performed By: #### L 300.3900, L300.4310, L100.0100, L300.4700 ####[facility] [address] [place], [address] PT Coag (PPP) [Time] 12.9 s Normal 11.7-14.[address] [facility] Comment on above: Performed By: #### L 300.3900, L300.4310, L100.0100, L300.4700 ####[facility] [address] [place], [address] Rubella IgGon 11-06-2024 Rubella IgG Equiv Normal Nonreactive [facility] Comment on above: Result Comment: Anti body Results Interpretation of Immune Status Non Reactive Presumed Non-Immune Equivocal Equivocal Reactive Presumed Immune Performed By: #### L 509.8000, L509.4005 ####[facility] [address] [place], [address] Type AND Screenon 11-06-2024 ABO and Rh group Nom (Bld) Blood group A Rh(D) positive Normal [facility] Comment on above: Order Comment: SC-SE CTION Performed By: #### B TS, L100.0100 ####[facility] [address] [place], [address] Ur Drg Scn w/Rflx AMPH Confi rmon 11-06-2024 Amphetamines Ql (U) Positive Abnormal <1000 ng/mL [facility] Comment on above: Performed By: #### L 3380.2100, L3890.6300, L3890.6100, L505.5002 ####[facility] [address] [place] [id number] BARBITIURATES Negative Normal < 200 ng/mL [facility] Comment on above: Performed By: #### L 3380.2100, L3890.6300, L3890.6100, L505.5002 ####[facility] [address] [place], [phone] BENZODIAZIPINE Positive Abnormal < 200 ng/mL [facility] Comment on above: Performed By: #### L 3380.2100, L3890.6300, L3890.6100, L505.5002 ####[facility] [address] [place], [phone] Cocaine Ql (U) Negative Normal < 300 ng/mL [facility] Comment on above: Performed By: #### L 3380.2100, L3890.6300, L3890.6100, L505.5002 ####[facility] [address] [place] [address] ECSTACY Positive Abnormal < 500 ng/mL [facility] Comment on above: Performed By: #### L 3380.2100, L3890.6300, L3890.6100, L505.5002 ####[facility] [address] [place] [address] Methadone Ql (U) Negative Normal < 300 ng/mL [facility] Comment on above: Performed By: #### L 3380.2100, L3890.6300, L3890.6100, L505.5002 ####[facility] [address] [place] [phone] Opiates Ql (U) Positive Abnormal < 300 ng/mL [facility] Comment on above: Performed By: #### L 3380.2100, L3890.6300, L3890.6100, L505.5002 ####[facility] [address] [place], [address] PCP Negative Normal < 25 ng/mL [facility] Comment on above: Performed By: #### L 3380.2100, L3890.6300, L3890.6100, L505.5002 ####[facility] [address] [place], [address] THC Negative Normal < 50 ng/mL [facility] Comment on above: Performed By: #### L 3380.2100, L3890.6300, L3890.6100, L505.5002 ####[facility] [address] [place], [address] VISTA UDS PH [address] [facility] Comment on above: Performed By: #### L 3380.2100, L3890.6300, L3890.6100, L505.5002 ####[facility] [address] [place], [address] Urinalysis, Completeon 11-06 RBC 10-25 SEEN Normal 0-5 [facility] Comment on above: Order Comment: MEENAKSHI TER SPECIMEN Performed By: #### L 3890.6005, L400.0001, L3410.9999, L100.0100 ####[facility] [address] [place], [address] CAST,FINE GRAN 0-5 SEEN Normal 0-5 [facility] Comment on above: Order Comment: MEENAKSHI TER SPECIMEN Performed By: #### L 3890.6005, L400.0001, L3410.9999, L100.0100 ####[facility] [address] [place], [address] CAST,HYALINE 0-5 SEEN Normal 0-5 [facility] Comment on above: Order Comment: MEENAKSHI TER SPECIMEN Performed By: #### L 3890.6005, L400.0001, L3410.9999, L100.0100 ####[facility] [address] [place], [address] EPI,TRANSITION 5-10 SEEN Normal 0-5 [facility] Comment on above: Order Comment: MEENAKSHI TER SPECIMEN Performed By: #### L 3890.6005, L400.0001, L3410.9999, L100.0100 ####[facility] [address] [place], [address] BACTERIA 2+ /hpf Normal None Seen [facility] Comment on above: Order Comment: MEENAKSHI TER SPECIMEN Performed By: #### L 3890.6005, L400.0001, L3410.9999, L100.0100 ####[facility] [address] [place], [address] EPI,SQUAMOUS 0-5 SEEN Normal 5-10 [facility] Comment on above: Order Comment: MEENAKSHI TER SPECIMEN Performed By: #### L 3890.6005, L400.0001, L3410.9999, L100.0100 ####[facility] [address] [place], [address] WBC 25-50 SEEN Normal 0-5 [facility] Comment on above: Order Comment: MEENAKSHI TER SPECIMEN Performed By: #### L 3890.6005, L400.0001, L3410.9999, L100.0100 ####[facility] [address] [place], [address] Mucus Ql (Urine sed) [address] [facility] Comment on above: Order Comment: MEENAKSHI TER SPECIMEN Performed By: #### L 3890.6005, L400.0001, L3410.9999, L100.0100 ####[facility] [address] [place], [address] Urine Drug Screen (VISTA)on 11-06-2024 AMPHETAMINES Normal <1000 ng/mL [facility] Comment on above: Result Comment: PER AMISHRN DUPLICATE Performed By: #### L 505.5000 ####[facility] [address] [place], [address] BARBITIURATES Normal < 200 ng/mL [facility] Comment on above: Result Comment: PER AMISHRN DUPLICATE Performed By: #### L 505.5000 ####[facility] [address] [place], [address] BENZODIAZIPINE Normal < 200 ng/mL [facility] Comment on above: Result Comment: PER [place] DUPLICATE Performed By: #### L 505.5000 ####[facility] [address] [place] [address] COCAINE Normal < 300 ng/mL [facility] Comment on above: Result Comment: PER AMISHRN DUPLICATE Performed By: #### L 505.5000 ####[facility] [address] [place], [address] [address] Normal [facility] Comment on above: Result Comment: PER [place] DUPLICATE Performed By: #### L 505.5000 ####[facility] [address] [place], [address] ECSTACY Normal < 500 ng/mL [facility] Comment on above: Result Comment: PER [place] DUPLICATE Performed By: #### L 505.5000 ####[facility] [id number] [place], [address] METHADONE Normal < 300 ng/mL [facility] Comment on above: Result Comment: PER [place] DUPLICATE Performed By: #### L 505.5000 ####[facility] [id number] [place], [address] OPIATES Normal < 300 ng/mL [facility] Comment on above: Result Comment: PER AMISHRN DUPLICATE Performed By: #### L 505.5000 ####[facility] [id number] [place], [address] PCP Normal < 25 ng/mL [facility] Comment on above: Result Comment: PER [place] DUPLICATE Performed By: #### L 505.5000 ####[facility] [address] [place], [address] THC Normal < 50 ng/mL [facility] Comment on above: Result Comment: PER AMISHRN DUPLICATE Performed By: #### L 505.5000 ####[facility] [address] [place], [address] [address] PH Normal [facility] Comment on above: Result Comment: VASYL WELLINGTONRN DUPLICATE Performed By: #### L 505.5000 ####[facility] [address] [place], [address] AMPHETAMINES Normal <1000 ng/mL [facility] Comment on above: Result Comment: Canc elled via OM: MD Ordered Performed By: #### L 505.5000 ####[facility] [address] [place], [address] BARBITIURATES Normal < 200 ng/mL [facility] Comment on above: Result Comment: Canc elled via OM: MD Ordered Performed By: #### L 505.5000 ####[facility] [address] [place], [address] BENZODIAZIPINE Normal < 200 ng/mL [facility] Comment on above: Result Comment: Canc elled via OM: MD Ordered Performed By: #### L 505.5000 ####[facility] [address] [place], [address] COCAINE Normal < 300 ng/mL [facility] Comment on above: Result Comment: Canc elled via OM: MD Ordered Performed By: #### L 505.5000 ####[facility] [address] [place], [address] [facility] Comment on above: Result Comment: Canc elled via OM: MD Ordered Performed By: #### L 505.5000 ####[facility] [address] [place], [address] ECSTACY Normal < 500 ng/mL [facility] Comment on above: Result Comment: Canc elled via OM: MD Ordered Performed By: #### L 505.5000 ####[facility] [address] [place], [address] METHADONE Normal < 300 ng/mL [facility] Comment on above: Result Comment: Canc elled via OM: MD Ordered Performed By: #### L 505.5000 ####[facility] [address] [place], [address] OPIATES Normal < 300 ng/mL [facility] Comment on above: Result Comment: Canc elled via OM: MD Ordered Performed By: #### L 505.5000 ####[facility] [address] [place], [address] PCP Normal < 25 ng/mL [facility] Comment on above: Result Comment: Canc elled via OM: MD Ordered Performed By: #### L 505.5000 ####[facility] [address] [place], [address] THC Normal < 50 ng/mL [facility] Comment on above: Result Comment: Canc elled via OM: MD Ordered Performed By: #### L 505.5000 ####[facility] [address] [place], [address] [address] PH Normal [facility] Comment on above: Result Comment: Canc elled via OM: Ordered Performed By: #### L 505.5000 ####[facility] [address] [place], [address] Gram stain for investigation of transfusion reactionon 02-10-2022 Microscopic observation Gram stain Nom (Unsp spec) [facility] Work Phone: Thin prep Papanicolaou smear with manual screeningon 02-10-2022 Genital Culture Presumptive C albicans [facility] Work Phone: CNPNon 10-15-2021 [facility] BERNADETTE FAUST ([id number]) 1995 [facility] Date Time Provider Department 10/15/21 [facility] During your visit today, we recorded the following information about you: Kateryna Farah PA-C 10/15/2021 9:00 AM Signed Let patient know that her CT scan does show signs of inflamed/infectious lymph node. I'm going to send in another atb for her to take, but if still not improving, let us know. Linda Porter LPN 10/15/2021 9:18 AM Signed Left message for pt to contact office for results. Linda Bruno LPN 10/18/2021 12:33 PM Signed Pt notified of results and provider message. Pt voiced understanding. Dolly Bruno LPN Allergies As of Date: 10/15/2021 Noted Allergy Reaction BOTOX (ONABOTULINUMTOXINA) 10/06/2020 14 - Other: See Comments Comments: Face tingling and skin itching. LATEX 06/05/2018 16 - Unknown TAPE [Other] 11/23/2005 2 - Rash VERAPAMIL 06/05/2018 10 - Anaphylaxis Date Reviewed: 10/12/2021 Reviewed by: Edith Dhaliwal, RT(R) - Fully Assessed Reason for Visit: Results [95] Order(s):sulfamethoxazo le-trimethoprim (BACTRIM DS) 800-160 mg per tabletTake 1 tablet by mouth twice daily for 10 days.Disp: 20 tabletRfl: 0 Prescriptions as of 10/18/2021 - sulfamethoxazole-trimet hoprim (BACTRIM DS) 800-160 mg per tablet Take 1 tablet by mouth twice daily for 10 days. - Lancets lancets Test blood sugar(s) 1 times daily. Dx: Type 2 DM - Controlled E11.9 Insulin: No - blood sugar diagnostic (BLOOD GLUCOSE TEST) test strip Test blood sugar(s) 1 times daily. Dx: Type 2 DM - Controlled E11.9 Insulin: No - metFORMIN ER (GLUCOPHAGE XR) 500 mg 24 hr tablet Take 1 tablet by mouth daily with dinner. - rizatriptan (MAXALT) 10 mg tablet Take 10 mg by mouth as needed. May repeat in 2 hours if needed - rimegepant (NURTEC ODT) 75 mg disintegrating tablet Take 75 mg by mouth once daily as needed. - cyclobenzaprine (FLEXERIL) 10 mg tablet Take 1 tablet by mouth twice daily as needed. - albuterol HFA (VENTOLIN HFA) 90 mcg/actuation inhaler Inhale 2 Puffs as instructed every 4 hours as needed for wheezing/shortness of breath. - ALPRAZolam (XANAX) 0.5 mg tablet - AJOVY AUTOINJECTOR 225 mg/1.5 mL auto-injector INJECT 3 PENS INTO THE SKIN EVERY 3 MONTHS - keTORolac (TORADOL) 60 mg/2 mL soln INJECT 1 ML INTO THE MUSCLE EVERY 12 HOURS NEEDED FOR PAIN (MIGRAINE) - predniSONE (DELTASONE) 20 mg tablet 3 tabs a day by mouth for the next 5 days - ranitidine (ZANTAC) 150 mg tablet Take 1 tablet by mouth twice daily. - ondansetron orally disintegrating (ZOFRAN ODT) 4 mg disintegrating tablet Take 1 tablet by mouth every 6 hours as needed for Nausea/Vomiting. - aspirin, enteric coated (ASPIRIN, ENTERIC COATED) 81 mg EC tablet Take 81 mg by mouth once daily. - Blood-Glucose Meter misc 1 Package four times daily. Check blood sugars fasting and 2 hours after meals. - pyridoxine, vitamin B6, (VITAMIN B6) 25 mg tablet Take 1 tablet by mouth daily at bedtime. - buPROPion SR (ZYBAN SR; WELLBUTRIN SR) 150 mg 12 hr tablet Take 1 tablet by mouth twice daily. - amphetamine-dextroamphe tamine XR (ADDERALL XR) 20 mg 24 hr capsule Take 1 capsule by mouth once daily for 30 days. Earliest Fill Date: 10/01/18 - lamoTRIgine (LAMICTAL) 100 mg tablet Take 1 tablet by mouth once daily. - acetaminophen 325 mg-caffeine 40 mg-butalbital 50 mg (FIORICET) per tablet Take 1 tablet by mouth every 4 hours as needed. - albuterol (PROVENTIL) 2.5 mg /3 mL (0.083 %) nebulizer solution Use 2.5 mg via nebulizer every 4 hours as needed. - cetirizine (ZYRTEC) 10 mg tablet Take 10 mg by mouth once daily. - mometasone (ASMANEX) 220 mcg (60 doses) aepb Inhale 1 Puff as instructed once daily. - SUMAtriptan (IMITREX) 50 mg tablet Take 50 mg by mouth as needed. - triamcinolone acetonide (NASACORT AQ) 55 mcg nasal inhaler Use 1 [place] in the nose as needed. - gabapentin (NEURONTIN) 800 mg tablet Take 800 mg by mouth. takes a sneeded - promethazine (PHENERGAN) 25 mg tablet Take 1 tablet by mouth every 6 hours as needed. - meclizine (ANTIVERT) 25 mg tab Take 1 tablet by mouth every 6 hours as needed (dizziness). - hydrOXYzine pamoate (VISTARIL) 25 mg capsule Take 1 capsule by mouth three times daily as needed for Anxiety. - EPINEPHrine (EPIPEN) 0.3 mg/0.3 mL auto-injector Use as directed prn allergic reaction - blood sugar diagnostic (BLOOD GLUCOSE TEST) test strip Test blood sugar(s) 3 times daily. Dx: Type 2 DM - Controlled E11.9 Insulin: No. Elevated sugars and fluctuating sugars. - naproxen (NAPROSYN) 500 mg tablet Take 1 tablet by mouth twice daily with meals. Problem List As Of Date 10/15/2021 Noted Resolved Inguinal hernia with obstruction, without menti*08/06/2005 03/18/2013 PAIN GROIN (right) [R10.9] 11/23/2005 03/18/2013 Abdominal (more content not included)... Normal [facility] Albumin/Creat Ratioon 2020 Albumin Urine Random <12.0 Normal [facility] Comment on above: Performed By: #### U ACR ####[facility] [place] [address] [phone] Albumin/Creat Ratio Not calculated Normal <30 C [facility] Comment on above: Performed By: #### U ACR ####[address] [phone] Creatinine,Urine,Ran 23.0 mg/dL Normal 20-300 [facility] Comment on above: Performed By: #### U ACR ####[address] [phone] C-Peptideon 10-14-2021 C-Peptide 0.8 ng/mL Normal 0.8-3.9 [facility] Comment on above: Performed By: #### G ADCAB, LIPB, CPEPT ####[facility] [place], [place] [phone] CT NECK SOFT TISSUE W IVCONo n 10-14-2021 CT NECK SOFT TISSUE W IVCON * * *Final Report* * * DATE OF EXAM: Oct 14 2021 11:32AM [facility] [place] 0013 - CT NECK SOFT TISSUE W IVCON / PROCEDURE REASON: Localized enlarged lymph nodes * * * * Physician Interpretation * * * * EXAMINATION: CT NECK SOFT TISSUE W IVCON HISTORY: Localized enlarged lymph nodes. History of boils and lymph nodes, aided with doxycycline, boils have improved but lymph nodes persist. COMPARISON: None. PARAMETERS: Helical scan of the neck from the petrous ridges through the upper mediastinum after administration of intravenous contrast. Contrast: 100 mL Omnipaque [address] Radiation dose: Integrated Dose-Length Product (DLP) for this visit = 487 mGy*cm. CT Dose Reduction Employed: Automated exposure control(AEC) and iterative recon FINDINGS: CERVICAL SPINE: Gross alignment of the cervical spine is normal in the sagittal plane. Mild disc bulges at the C3-4 through C5-6 levels with mild canal stenosis. Foramina are patent. CERVICAL SOFT TISSUES: The visualized subcutaneous and muscular soft tissues of the neck and upper thorax are unremarkable. INTRACRANIAL: Limited visualization of intracranial structures demonstrates no acute finding. ORBITS: Normal. SINUSES: The paranasal sinuses and mastoid air cells are clear. PHARYNX: The nasopharynx, oropharynx and hypopharynx are normal. ORAL CAVITY: Normal. LARYNX: Normal. LYMPH NODES: Enlarged right level 2B lymph node (axial image 73 series 1 measures 7 x 11 mm, with postcontrast enhancement in subtle peripheral stranding suggesting lymphadenitis. No central necrosis. Prominent right level 2B node on image 55 measures 0.8 x 1.4 cm. Scattered additional lymph nodes in the bilateral cervical chains without significant enlargement by by standard size criteria. DEEP NECK SPACES: The deep cervical fascial planes, and prevertebral soft tissues are normal. MANDIBLE: No gross bony destructive lesions or dental inflammatory lesions identified. VASCULAR: The carotid arteries and jugular veins demonstrate normal contrast enhancement. There is no evidence for mass within the carotid sheath. MAJOR SALIVARY GLANDS: Morphology, attenuation, and enhancement pattern of the major salivary glands is normal. THYROID: Morphology and enhancement pattern of the thyroid is normal. LUNG APICES AND UPPER MEDIASTINUM: Lung apices are clear. No mediastinal masses are identified. ENHANCEMENT: No abnormal enhancement. IMPRESSION: Cervical lymphadenopathy with a right level 2B node demonstrated enhancement/stranding suggesting infectious or inflammatory lymphadenitis. Automobile Body Repairer: [facility] CENTERMichelle Transcribe Date/Time: Oct 14 2021 11:37A Dictated by : SD VALLE MD This examination was interpreted and the report reviewed and electronically signed by: SD VALLE MD on Oct 14 2021 12:07PM EST [id number] Normal [facility] Glutamic Ac Decar Abon 10-14 Glutam Ac Dec Ab Ql Negative Normal Negative [facility] Comment on above: Performed By: #### G ADCAB, LIPB, CPEPT ####[facility] [place], [place] [phone] Glutamic Ac Decar Ab <5.0 Normal <5.1 [facility] Comment on above: Performed By: #### G ADCAB, LIPB, CPEPT ####[facility], [place] [phone] Lipid Panel, Basicon 10-14- 021 Cholesterol [Mass/Vol] 143 mg/dL Normal <200 [facility] Comment on above: Result Comment: <200 mg/dL, Desirable 200-239 mg/dL, Borderline high >239 mg/dL, High Performed By: #### G ADCAB, LIPB, CPEPT ####[place] [address], [place] [phone] Cholesterol in HDL [Mass/Vol] 60 mg/dL Normal >39 [facility] Comment on above: Result Comment: 40-5 9 mg/dL, Acceptable >59 mg/dL, High: Negative risk factor for coronary heart disease <40 mg/dL, Low: Positive risk factor for coronary heart disease Performed By: #### G ADCAB, LIPB, CPEPT ####[place] [id number], [place] [phone] Cholesterol in LDL [Mass/Vol] 73 mg/dL Normal <100 [facility] Comment on above: Result Comment: <100 mg/dL, Optimal 100-129 mg/dL, Near optimal/above optimal 130-159 mg/dL, Borderline high 160-189 mg/dL, High >189 mg/dL, Very high Secondary prevention optimal LDL Cholesterol levels are recommended to be < 70 mg/dL Performed By: #### G ADCAB, LIPB, CPEPT ####[facility], [place] [phone] Fasting Time 10 hrs Normal [facility] Comment on above: Performed By: #### G ADCAB, LIPB, CPEPT ####[facility], [place] [phone] LDL:HDL Ratio 1.22 Normal <2.54 [facility] Comment on above: Result Comment: Minnie hanley: 1. National Cholesterol Education Program ATP III Guideline At-A-Glance Quick Desk Reference: National Heart, Lung, and Blood [place]. National Institutes of Health. 2001: NIH Publication No. 01-3305. 2. An International Atherosclerosis Society position paper: global recommendations for the management of dyslipidemia: executive summary, Atherosclerosis. 2014: 232(2):410-413. Performed By: #### G ADCAB, LIPB, CPEPT ####[facility] [phone] Non HDL Cholesterol 83 mg/dL Normal <130 [facility] Comment on above: Result Comment: <130 mg/dL, Optimal 130-159 mg/dL, Near optimal/above optimal 160-189 mg/dL, Borderline high 190-219 mg/dL, High >219 mg/dL, Very high Secondary prevention optimal non HDL Cholesterol levels are recommended to be < 100 mg/dL Performed By: #### G ADCAB, LIPB, CPEPT ####[phone] TC:HDL Ratio 2.38 Normal <5.10 [facility] Comment on above: Performed By: #### G ADCAB, LIPB, CPEPT ####[place] [phone] Triglyceride [Mass/Vol] 48 mg/dL Normal <150 [facility] Comment on above: Result Comment: <150 mg/dL, Normal 150-199 mg/dL, Borderline high 200-499 mg/dL, High >499 mg/dL, Very high Performed By: #### G ADCAB, LIPB, CPEPT ####[address] [place] [phone] VLDL Cholesterol 10 mg/dL Normal <30 [facility] Comment on above: Performed By: #### G ADCAB, LIPB, CPEPT ####[place] [address] [phone] Remote [facility] (for [facility] use only )on 12-16-2021 Albumin [Mass/Vol] 4.3 g/dL Normal 3.9-4.9 [facility] [place] [facility] ALP [Catalytic activity/Vol] 69 U/L Normal 34-123 [facility] ALT [Catalytic activity/Vol] 16 U/L Normal 7-38 [facility] Anion gap [Moles/Vol] 15 mmol/L Normal 9-18 [facility] AST [Catalytic activity/Vol] 14 U/L Normal 13-35 [facility] Bilirubin [Mass/Vol] 0.4 mg/dL Normal 0.2-1.3 [facility] Calcium [Mass/Vol] 9.1 mg/dL Normal 8.5-10.2 [facility] [place] [facility] Chloride [Moles/Vol] 98 mmol/L Normal 97-105 [facility] CO2 [Moles/Vol] 23 mmol/L Normal 22-30 [facility] Creatinine [Mass/Vol] 0.79 mg/dL Normal 0.58-0.96 [facility] eGFR- Amer. >60 Normal [facility] [place] [facility] eGFR-All Other Races >60 Normal [facility] Comment on above: Result Comment: eGFR (Estimated GFR) Units of [...] eGFR may not accurately reflect actual GFR. Note: On 12/25/2021, the eGFR calculation will be updated to the NKF-ASN Task Force recommended 2020 CKD-EPI creatinine equation which does not include a race variable. For more information or to access a 2020 CKD-EPI calculator, visit the National Kidney Foundation website at kidney.org/professionals/kdoqi/gfr_calculator. Glucose [Mass/Vol] 182 mg/dL High 74-99 [facility] [place] [facility] Comment on above: Result Comment: The [place] Diabetes Association (ADA) provides guidance for cutoff values for fasting glucose and random glucose. The ADA defines fasting as no caloric intake for at least 8 hours. Fasting plasma glucose results between 100 to 125 [...] Standards of Medical Care in Diabetes 2016, [place] Diabetes Association. Diabetes Care. 2016.39(Suppl 1). Potassium [Moles/Vol] 3.6 mmol/L Low 3.7-5.1 [facility] Protein [Mass/Vol] 6.7 g/dL Normal 6.3-8.0 [facility] [place] [facility] Sodium [Moles/Vol] 136 mmol/L Normal 136-144 [facility] [place] [facility] Urea nitrogen [Mass/Vol] 15 mg/dL Normal 7-21 [facility] Remote HBA1C (for [facility] use on ly)on 10-14-2021 Glucose [Mass/Vol] 186 mg/dL Normal [facility] [place]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 AM Signed Pt notified via [employer]TI[employer]. Fabiana Yoan Guaman Allergies As of Date: 09/07/2021 Noted Allergy Reaction BOTOX (ONABOTULINUMTOXINA) 10/06/2020 14 - Other: See Comments Comments: Face tingling and skin itching. LATEX 06/05/2018 16 - Unknown TAPE [Other] 11/23/2005 2 - Rash VERAPAMIL 06/05/2018 10 - Anaphylaxis Date Reviewed: 09/07/2021 Reviewed by: Leroy Liu LPN - Fully Assessed Reason for Visit: Results [95] Prescriptions as of 09/08/2021 - mupirocin (BACTROBAN) 2 % ointment Apply to affected area three times daily for 10 days. - ALPRAZolam (XANAX) 0.5 mg tablet - diphenhydrAMINE (BENADRYL) 25 mg capsule Take 25 mg by mouth. - [employer]OVY AUTOINJECTOR 225 mg/1.5 mL auto-injector INJECT 3 PENS INTO THE SKIN EVERY 3 MONTHS - keTORolac (TORADOL) 60 mg/2 mL soln INJECT 1 ML INTO THE MUSCLE EVERY 12 HOURS NEEDED FOR PAIN (MIGRAINE) - doxycycline (VIBRA-TABS) 100 mg tablet Take 1 tablet by mouth twice daily for 10 days. - predniSONE (DELTASONE) 20 mg tablet 3 tabs a day by mouth for the next 5 days - ranitidine (ZANTAC) 150 mg tablet Take 1 tablet by mouth twice daily. - ondansetron orally disintegrating (ZOFRAN ODT) 4 mg disintegrating tablet Take 1 tablet by mouth every 6 hours as needed for Nausea/Vomiting. - aspirin, enteric coated (ASPIRIN, ENTERIC COATED) 81 mg EC tablet Take 81 mg by mouth once daily. - cyclobenzaprine (FLEXERIL) 10 mg tablet Take 1 tablet by mouth twice daily as needed. - Blood-Glucose Meter misc 1 Package four times daily. Check blood sugars fasting and 2 hours after meals. - pyridoxine, vitamin B6, (VITAMIN B6) 25 mg tablet Take 1 tablet by mouth daily at bedtime. - buPROPion SR (ZYBAN SR; WELLBUTRIN SR) 150 mg 12 hr tablet Take 1 tablet by mouth twice daily. - amphetamine-dextroamphe tamine XR (ADDERALL XR) 20 mg 24 hr capsule Take 1 capsule by mouth once daily for 30 days. Earliest Fill Date: 10/01/18 - lamoTRIgine (LAMICTAL) 100 mg tablet Take 1 tablet by mouth once daily. - acetaminophen 325 mg-caffeine 40 mg-butalbital 50 mg (FIORICET) per tablet Take 1 tablet by mouth every 4 hours as needed. - albuterol (PROVENTIL) 2.5 mg /3 mL (0.083 %) nebulizer solution Use 2.5 mg via nebulizer every 4 hours as needed. - cetirizine (ZYRTEC) 10 mg tablet Take 10 mg by mouth once daily. - mometasone (ASMANEX) 220 mcg (60 doses) aepb Inhale 1 Puff as instructed once daily. - SUMAtriptan (IMITREX) 50 mg tablet Take 50 mg by mouth as needed. - triamcinolone acetonide (NASACORT AQ) 55 mcg nasal inhaler Use 1 [place] in the nose as needed. - gabapentin (NEURONTIN) 800 mg tablet Take 800 mg by mouth. takes a sneeded - promethazine (PHENERGAN) 25 mg tablet Take 1 tablet by mouth every 6 hours as needed. - meclizine (ANTIVERT) 25 mg tab Take 1 tablet by mouth every 6 hours as needed (dizziness). - hydrOXYzine pamoate (VISTARIL) 25 mg capsule Take 1 capsule by mouth three times daily as needed for Anxiety. - EPINEPHrine (EPIPEN) 0.3 mg/0.3 mL auto-injector Use as directed prn allergic reaction - blood sugar diagnostic (BLOOD GLUCOSE TEST) test strip Test blood sugar(s) 3 times daily. Dx: Type 2 DM - Controlled E11.9 Insulin: No. Elevated sugars and fluctuating sugars. - albuterol HFA (VENTOLIN HFA) 90 mcg/actuation inhaler Inhale 2 Puffs as instructed every 4 hours as needed for Wheezing/Shortness of Breath. - naproxen (NAPROSYN) 500 mg tablet Take 1 tablet by mouth twice daily with meals. Problem List As Of Date 09/07/2021 Noted Resolved Inguinal hernia with obstruction, without menti*08/06/2005 03/18/2013 PAIN GROIN (right) [R10.9] 11/23/2005 03/18/2013 Abdominal pain, right lower quadrant [R10.31] 02/10/2006 03/18/2013 Lumbago [M54.50] 03/06/2009 Headache [R51] 03/18/2013 TMJ (temporomandibular joint syndrome) [M26.609]03/18/2013 Intermittent asthma with allergic rhinitis [J45*05/27/2013 Family history of defects [Z82.79] 05/27/2013 10/07/2015 Rubella non-immune status, antepartum [O99.891,*06/20/2013 02/11/2014 Gestational diabetes [O24.419] 10/31/2013 02/11/2014 Supervision of other high-risk (V23.89*201302/11/2014 Type 2 (more content not included)... Normal [facility] CBC and Differentialon 09-06 Abs Baso 0.05 k/uL Normal <0.11 [facility] Comment on above: Performed By: #### C BCDIF ####[address] [phone] Abs Bureau 0.53 k/uL Normal <0.87 [facility] Comment on above: Performed By: #### C BCDIF ####[facility] [place], [place] [phone] Abs Neut 3.80 k/uL Normal 1.45-7.50 [facility] Comment on above: Performed By: #### C BCDIF ####[address] [phone] Absolute nRBC <0.01 Normal <0.01 [facility] Comment on above: Performed By: #### C BCDIF ####[facility] [place], [place] [phone] Basophils/100 WBC (Bld) 0.7 % Normal [facility] Comment on above: Performed By: #### C BCDIF ####[place] [address], [place] [phone] DTYPE Auto Diff Normal [facility] Comment on above: Performed By: #### C BCDIF ####[place] [address] [place] [phone] Eosinophils (Bld) [#/Vol] 0.04 10*3/uL Normal <0.46 [facility] Comment on above: Performed By: #### C BCDIF ####[place] [address], [place] [phone] Eosinophils/100 WBC (Bld) 0.5 % Normal [facility] Comment on above: Performed By: #### C BCDIF ####[place] [address] [place] [phone] Erythrocyte distribution width (RBC) [Ratio] 12.4 % Normal 11.5-15.0 [facility] Comment on above: Performed By: #### C BCDIF ####[place] [address], [place] [phone] Hematocrit (Bld) [Volume fraction] 42.9 % Normal 36.0-46.0 [facility] Comment on above: Performed By: #### C BCDIF ####[place] [address], [place] [phone] Hemoglobin (Bld) [Mass/Vol] 14.1 g/dL Normal 11.5-15.5 [facility] Comment on above: Performed By: #### C BCDIF ####[place] [address], [place] [phone] Lymphocytes (Bld) [#/Vol] 3.04 10*3/uL Normal 1.00-4.00 [facility] Comment on above: Performed By: #### C BCDIF ####[facility], [place] [phone] Lymphocytes/100 WBC (Bld) 40.6 % Normal [facility] Comment on above: Performed By: #### C BCDIF ####[place] [address] [place] [phone] MCH 28.7 pG Normal 26.0-34.0 [facility] Comment on above: Performed By: #### C BCDIF ####[place] [address] [place] [phone] MCHC (RBC) [Mass/Vol] 32.9 g/dL Normal 30.5-36.0 [facility] Comment on above: Performed By: #### C BCDIF ####[place] [address] [place] [phone] MCV (RBC) [Entitic vol] 87.4 fL Normal 80.0-100.0 [facility] Comment on above: Performed By: #### C BCDIF ####[place] [address] [place] [phone] Monocytes/100 WBC (Bld) 7.1 % Normal [facility] Comment on above: Performed By: #### C BCDIF ####[place] [address] [place] [phone] Neutrophils/100 WBC (Bld) 51.1 % Normal [facility] Comment on above: Performed By: #### C BCDIF ####[place] [address] [place] [phone] NRBCs 0.0 /100 WBC Normal 0 [facility] Comment on above: Performed By: #### C BCDIF ####[place] [address] [place] [phone] Platelet mean volume (Bld) [Entitic vol] 10.0 fL Normal 9.0-12.7 [facility] Comment on above: Performed By: #### C BCDIF ####[facility] [place], [place] [phone] Platelets (Bld) [#/Vol] 250 10*3/uL Normal 150-400 [facility] Comment on above: Performed By: #### C BCDIF ####[facility] [place], [place] [phone] RBC (Bld) [#/Vol] 4.91 10*6/uL Normal 3.90-5.20 [facility] Comment on above: Performed By: #### C BCDIF ####[facility] [place], [place] [phone] WBC (Bld) [#/Vol] 7.48 10*3/uL Normal 3.70-11.00 [facility] Comment on above: Performed By: #### C BCDIF ####[facility] [place], [place] [phone] Keerthi 08-31-2021 [facility] BERNADETTE FAUST ([id number]) 1995 F [facility] Date Time Provider Department 08/31/21 5:30 PM JOHN GUILLEN [facility] During your visit today, we recorded the following information about you: Temperature Pulse Respiration Blood pressure 97.7 degrees 86/minute 18/minute 132/82 Weight 71.5 kg John Guillen PA-C 08/31/2021 6:21 PM Signed 08/31/2021 Patient presents with: Breathing Problem: sewage back-up smell and gas x 2 months SUBJECTIVE: This is a 26 year old that is here today for Complaint(s) of breathing problem x 2 months. States she has been living in a house with raw sewage in the pipes in the basement. She had SOB. PMH stroke in 2017. Reports since moving out 10 days ago symptoms has overall started to improve. Then worsening the last 4 days while she was moving out. Reports nasal drainage that was castillo, worsening migraines while living in the house for 2 weeks, occasional cough, joint pain. Winfred like it was worse when the furnace. While moved out of the house symptoms were significantly improved and HAs were improved. Denies fever/chills, Fiance would stay in the house when in [place], and has not been in the house frequently. Feels congestion in the lungs. No fevers. She also describes sores on her legs and back of her scalp that she has never had previously until living in the house. No longer living in the house. And SOB is improving. PAST MEDICAL HISTORY Diagnosis Date - Acne - Acute, but ill-defined, cerebrovascular disease 12/2016 CVA - Bipolar affective disorder (HCC) 10/01/2018 - Breast cancer ([facility]) - Chronic appendicitis 2006 S/P lap appendectomy. - Family history of defects 05/27/2013 05/27/2013 Father of the baby was born with a hole in his heart. No surgical correction needed. Father the baby's niece born with spina bifida. Patient's first cousin diagnosed with Asperger's Syndrome. TKRN - FRACTURE 2005 FOOT - Gestational diabetes 10/31/2013 - Migraine - Stroke ([facility]) - Type 2 diabetes mellitus ([facility]) - Unspecified asthma(493.90) EXERCISE INDUCED ALLERGIES Botox [Onabotulinumtoxina], Latex, Tape [Other], and Verapamil MEDICATIONS Current Outpatient Medications Medication Sig - ALPRAZolam (XANAX) 0.5 mg tablet - diphenhydrAMINE (BENADRYL) 25 mg capsule Take 25 mg by mouth. - AJOVY AUTOINJECTOR 225 mg/1.5 mL auto-injector INJECT 3 PENS INTO THE SKIN EVERY 3 MONTHS - keTORolac (TORADOL) 60 mg/2 mL soln INJECT 1 ML INTO THE MUSCLE EVERY 12 HOURS NEEDED FOR PAIN (MIGRAINE) - predniSONE (DELTASONE) 20 mg tablet 3 tabs a day by mouth for the next 5 days - ranitidine (ZANTAC) 150 mg tablet Take 1 tablet by mouth twice daily. - ondansetron orally disintegrating (ZOFRAN ODT) 4 mg disintegrating tablet Take 1 tablet by mouth every 6 hours as needed for Nausea/Vomiting. - aspirin, enteric coated (ASPIRIN, ENTERIC COATED) 81 mg EC tablet Take 81 mg by mouth once daily. - cyclobenzaprine (FLEXERIL) 10 mg tablet Take 1 tablet by mouth twice daily as needed. - Blood-Glucose Meter misc 1 Package four times daily. Check blood sugars fasting and 2 hours after meals. - pyridoxine, vitamin B6, (VITAMIN B6) 25 mg tablet Take 1 tablet by mouth daily at bedtime. - buPROPion SR (ZYBAN SR; WELLBUTRIN SR) 150 mg 12 hr tablet Take 1 tablet by mouth twice daily. - lamoTRIgine (LAMICTAL) 100 mg tablet Take 1 tablet by mouth once daily. - acetaminophen 325 mg-caffeine 40 mg-butalbital 50 mg (FIORICET) per tablet Take 1 tablet by mouth every 4 hours as needed. - albuterol (PROVENTIL) 2.5 mg /3 mL (0.083 %) nebulizer solution Use 2.5 mg via nebulizer every 4 hours as needed. - cetirizine (ZYRTEC) 10 mg tablet Take 10 mg by mouth once daily. - SUMAtriptan (IMITREX) 50 mg tablet Take 50 mg by mouth as needed. - gabapentin (NEURONTIN) 800 mg tablet Take 800 mg by mouth. takes a sneeded - promethazine (PHENERGAN) 25 mg tablet Take 1 tablet by mouth every 6 hours as needed. - meclizine (ANTIVERT) 25 mg tab Take 1 tablet by mouth every 6 hours as needed (dizziness). - EPINEPHrine (EPIPEN) 0.3 mg/0.3 mL auto-injector Use as directed prn allergic reaction - blood sugar diagnostic (BLOOD GLUCOSE TEST) test strip Test blood sugar(s) 3 times daily. Dx: Type 2 DM - Controlled E11.9 Insulin: No. Elevated sugars and fluctuating sugars. - albuterol HFA (VENTOLIN HFA) 90 mcg/actuation inhaler Inhale 2 Puffs as instructed every 4 hours as needed for Wheezing/Shortness of Breath. - naproxen (NAPROSYN) 500 mg tablet Take 1 tablet by mouth twice daily with meals. - amphetamine-dextroamphe tamine XR (ADDERALL XR) 20 mg 24 hr capsule Take 1 capsule by mouth once daily for 30 days. Earliest Fill Date: 10/01/18 - acetaminophen (TYLENOL) 500 mg tablet Take 500 mg by mouth every 8 hours as needed. - mometasone (ASMANEX) 220 mcg (60 doses) aepb Inhale (more content not included)... Normal [facility] Wound Culture/Stainon 2020 Wound Culture/Stain Sp. Request/Comment: - Swab Smear Result - No organisms seen No Polymorphonuclear Leukocytes Culture Result - Rare Methicillin resistant Staphylococcus aureus --> ABNORMAL ALERT For wound culture, tissue or aspirates are superior to swab specimens. If a swab must be used, eSwab is preferred. ORGANISM: Methicillin resistant Staphylococcus aureus METHOD: Minimum inhibitory concentration(Vitek) Antibiotic Interp OLEGARIO Status Erythromycin RESISTANT >=8 F Clindamycin SUSCEPTIBLE 0.25 F Testing for inducible clindamycin resistance was performed. Tetracycline SUSCEPTIBLE <=1 F Vancomycin SUSCEPTIBLE 1 F Oxacillin RESISTANT >=4 F Oxacillin resistant staphylococci are resistant to all beta lactam antibiotics (except new cephalosporins with anti MRSA activity). Trimeth sulfameth SUSCEPTIBLE <=10 F Gentamicin SUSCEPTIBLE <=0.5 F Rifampin SUSCEPTIBLE <=0.5 F Rifampin should not be used alone for antimicrobial therapy. Daptomycin SUSCEPTIBLE 0.25 F Linezolid SUSCEPTIBLE 2 F Doxycycline SUSCEPTIBLE <=0.5 F Critically abnormal [facility] Comment on above: Performed By: #### W CUL ####[id number] [place], [place] [address]Knq[facility]uyemAs[facility] [id number] [place], [place] [phone] Mary 04-05-2021 ADILSON Telephone (FAMWS) BERNADETTE FAUST ([id number]) 1995 F [facility] Date Time Provider Department 04/05/21 MARLO LOZA During your visit today, we recorded the following information about you: Marlo Loza APRN.CNP 04/05/2021 2:12 PM Signed STAMP Please reach out to patient for overdue appointment for chronic disease management with myself or Dr. Sotelo, labs are ordered. ZEHRA Jones Ma 04/08/2021 10:59 AM Signed See pt outreach. Allergies As of Date: 04/05/2021 Noted Allergy Reaction BOTOX (ONABOTULINUMTOXINA) 10/06/2020 14 - Other: See Comments Comments: Face tingling and skin itching. LATEX 06/05/2018 16 - Unknown TAPE [Other] 11/23/2005 2 - Rash VERAPAMIL 06/05/2018 10 - Anaphylaxis Date Reviewed: 10/06/2020 Reviewed by: Hang Morales - Fully Assessed Reason for Visit: PHMA/Care Gap Outreach [[id number]] Primary Visit Diagnosis:Type 2 diabetes mellitus without complication, unspecified whether exterminator insulin use (HCC) [E11.9] Order(s):ALBUMIN/CREAT RATIO RND UR [SQUACR] Order #: [id number] FUTURE Prescriptions as of 04/05/2021 Sig: PREDNISONE 20 MG TABLET 3 tabs a day by mouth for the* RANITIDINE 150 MG TABLET Take 1 tablet by mouth twice * ONDANSETRON 4 MG DISINTEGRATI* Take 1 tablet by mouth every * ASPIRIN 81 MG TABLET,DELAYED * Take 81 mg by mouth once sherrie* CYCLOBENZAPRINE 10 MG TABLET Take 1 tablet by mouth twice * BLOOD-GLUCOSE METER 1 Package four times daily. C* PYRIDOXINE (VITAMIN B6) 25 MG* Take 1 tablet by mouth daily * BUPROPION HCL SR 150 MG TABLE* Take 1 tablet by mouth twice * DEXTROAMPHETAMINE-AMPHE TAMINE* Take 1 capsule by mouth once * LAMOTRIGINE 100 MG TABLET Take 1 tablet by mouth once d* ACETAMINOPHEN 500 MG TABLET Take 500 mg by mouth every 8 * BUTALBITAL-ACETAMINOPHE N-CAFF* Take 1 tablet by mouth every * ALBUTEROL SULFATE 2.5 MG/3 ML* Use 2.5 mg via nebulizer ever* CETIRIZINE 10 MG TABLET Take 10 mg by mouth once sherrie* MOMETASONE 220 MCG/ACTUATION(* Inhale 1 Puff as instructed o* SUMATRIPTAN 50 MG TABLET Take 50 mg by mouth as needed* TRIAMCINOLONE ACETONIDE 55 MC* Use 1 [place] in the nose as ne* GABAPENTIN 800 MG TABLET Take 800 mg by mouth. takes a* PROMETHAZINE 25 MG TABLET Take 1 tablet [...] twice * Problem List As Of Date 04/05/2021 Noted Resolved Inguinal hernia with obstruction, without menti*08/06/2005 03/18/2013 PAIN GROIN (right) [R10.9] 11/23/2005 03/18/2013 Abdominal pain, right lower quadrant [R10.31] 02/10/2006 03/18/2013 Lumbago [M54.5] 03/06/2009 Headache [R51] 03/18/2013 TMJ (temporomandibular joint syndrome) [M26.609]03/18/2013 Intermittent asthma with allergic rhinitis [J45*05/27/2013 Family history of defects [Z82.79] 05/27/2013 10/07/2015 Rubella non-immune status, antepartum [O99.891,*06/20/2013 02/11/2014 Gestational diabetes [O24.419] 10/31/2013 02/11/2014 Supervision of other high-risk (V23.89*201302/11/2014 Type 2 diabetes mellitus without complication (*11/16/2016 Anxiety [F41.9] 11/16/2016 Bipolar affective disorder (HCC) [F31.9] 10/01/2018 Support system deficit [Z65.8] 10/11/2018 History of loss in prior , c*10/11/2018 10/29/2018 History of bipolar disorder [Z86.59] 10/11/2018 History of stroke [Z86.73] 10/11/2018 History of gestational diabetes in prior pregna*10/11/2018 10/29/2018 History of macrosomia in in prior pregna*10/11/2018 10/29/2018 History of shoulder dystocia with result of fra*10/11/2018 10/29/2018 History of hemorrhage, currently pre*10/11/2018 10/29/2018 Patient request for diagnostic testing [Z01.89] 10/11/2018 Breast pain, left [N64.4] 10/15/2018 Positive BARTOLO (antinuclear antibody) [R76.8] 10/15/2018 Supervision of high risk in first tri*10/15/2018 10/29/2018 Encounter Status:Closed by RENY HATFIELD MA on 04/08/21 [facility] 02-27[facility]2021 [facility] BERNADETTE FAUST ([id number]) 1995 [facility] Date Time Provider Department 02/27/21 BECKY SOTELO During your visit today, we recorded the following information about you: Becky Sotelo MD 02/27/2021 10:54 AM Signed Please do another Pt Outreach to reschedule appt - she has canceled and had a no show; also needs to complete labs MD Rukhsana Sharpe MA 03/01/2021 11:04 AM Signed Outreach #2 has been started. This encounter has been closed. Rukhsana Dyson MA Allergies As of Date: 02/27/2021 Noted Allergy Reaction BOTOX (ONABOTULINUMTOXINA) 10/06/2020 14 - Other: See Comments Comments: Face tingling and skin itching. LATEX 06/05/2018 16 - Unknown TAPE [Other] 11/23/2005 2 - Rash VERAPAMIL 06/05/2018 10 - Anaphylaxis Date Reviewed: 10/06/2020 Reviewed by: Hang Morales - Fully Assessed Reason for Visit: PHMA/Care Gap Outreach [[id number]] Cmt: APPT Prescriptions as of 02/27/2021 Sig: PREDNISONE 20 MG TABLET 3 tabs a day by mouth for the* RANITIDINE 150 MG TABLET Take 1 tablet by mouth twice * ONDANSETRON 4 MG DISINTEGRATI* Take 1 tablet by mouth every * ASPIRIN 81 MG TABLET,DELAYED * Take 81 mg by mouth once sherrie* CYCLOBENZAPRINE 10 MG TABLET Take 1 tablet by mouth twice * BLOOD-GLUCOSE METER 1 Package four times daily. C* PYRIDOXINE (VITAMIN B6) 25 MG* Take 1 tablet by mouth daily * BUPROPION HCL SR 150 MG TABLE* Take 1 tablet by mouth twice * DEXTROAMPHETAMINE-AMPHE TAMINE* Take 1 capsule by mouth once * LAMOTRIGINE 100 MG TABLET Take 1 tablet by mouth once d* ACETAMINOPHEN 500 MG TABLET Take 500 mg by mouth every 8 * BUTALBITAL-ACETAMINOPHE N-CAFF* Take 1 tablet by mouth every * ALBUTEROL SULFATE 2.5 MG/3 ML* Use 2.5 mg via nebulizer ever* CETIRIZINE 10 MG TABLET Take 10 mg by mouth once sherrie* MOMETASONE 220 MCG/ACTUATION(* Inhale 1 Puff as instructed o* SUMATRIPTAN 50 MG TABLET Take 50 mg by mouth as needed* TRIAMCINOLONE ACETONIDE 55 MC* Use 1 [place] in the nose as ne* GABAPENTIN 800 MG TABLET Take 800 mg by mouth. takes a* PROMETHAZINE 25 MG TABLET Take 1 tablet [...] twice * Problem List As Of Date 02/27/2021 Noted Resolved Inguinal hernia with obstruction, without menti*08/06/2005 03/18/2013 PAIN GROIN (right) [R10.9] 11/23/2005 03/18/2013 Abdominal pain, right lower quadrant [R10.31] 02/10/2006 03/18/2013 Lumbago [M54.5] 03/06/2009 Headache [R51] 03/18/2013 TMJ (temporomandibular joint syndrome) [M26.609]03/18/2013 Intermittent asthma with allergic rhinitis [J45*05/27/2013 Family history of defects [Z82.79] 05/27/2013 10/07/2015 Rubella non-immune status, antepartum [O99.891,*06/20/2013 02/11/2014 Gestational diabetes [O24.419] 10/31/2013 02/11/2014 Supervision of other high-risk (V23.89*201302/11/2014 Type 2 diabetes mellitus without complication (*11/16/2016 Anxiety [F41.9] 11/16/2016 Bipolar affective disorder (HCC) [F31.9] 10/01/2018 Support system deficit [Z65.8] 10/11/2018 History of loss in prior , c*10/11/2018 10/29/2018 History of bipolar disorder [Z86.59] 10/11/2018 History of stroke [Z86.73] 10/11/2018 History of gestational diabetes in prior pregna*10/11/2018 10/29/2018 History of macrosomia in infant in prior pregna*10/11/2018 10/29/2018 History of shoulder dystocia with result of fra*10/11/2018 10/29/2018 History of hemorrhage, currently pre*10/11/2018 10/29/2018 Patient request for diagnostic testing [Z01.89] 10/11/2018 Breast pain, left [N64.4] 10/15/2018 Positive BARTOLO (antinuclear antibody) [R76.8] 10/15/2018 Supervision of high risk in first tri*10/15/2018 10/29/2018 Encounter Status:Closed by RUKHSANA DYSON MA on 03/01/21 [facility] Mary 01-14-2021 [facility] BERNADETTE FAUST ([id number]) 1995 F [facility] Date Time Provider Department 01/14/21 BECKY SOTELO During your visit today, we recorded the following information about you: Becky Sotelo MD 01/14/2021 11:24 AM Signed Needs Pt Outreach for labs and appt to follow up DM MD Fabiana Sharpe Ma 01/14/2021 12:46 PM Signed Outreach encounter started. Fabiana Milton Ma Allergies As of Date: 01/14/2021 Noted Allergy Reaction BOTOX (ONABOTULINUMTOXINA) 10/06/2020 14 - Other: See Comments Comments: Face tingling and skin itching. LATEX 06/05/2018 16 - Unknown TAPE [Other] 11/23/2005 2 - Rash VERAPAMIL 06/05/2018 10 - Anaphylaxis Date Reviewed: 10/06/2020 Reviewed by: Hang Morales - Fully Assessed Reason for Visit: Diabetes [34] Primary Visit Diagnosis:Type 2 diabetes mellitus without complication, unspecified whether chcf insulin use (HCC) [E11.9] Order(s):CMP (CMP) (FOR REMOTE [facility] USE) [SQRCMP] Order #: [id number] FUTURE HEMOGLOBIN A1C (FOR REMOTE [facility] USE) [UCFMXC5Z] Order #: [id number] FUTURE LIPID PANEL BASIC [SQLIPB] Order #: [id number] FUTURE Prescriptions as of 01/14/2021 Sig: PREDNISONE 20 MG TABLET 3 tabs a day by mouth for the* RANITIDINE 150 MG TABLET Take 1 tablet by mouth twice * ONDANSETRON 4 MG DISINTEGRATI* Take 1 tablet by mouth every * ASPIRIN 81 MG TABLET,DELAYED * Take 81 mg by mouth once sherrie* CYCLOBENZAPRINE 10 MG TABLET Take 1 tablet by mouth twice * BLOOD-GLUCOSE METER 1 Package four times daily. C* PYRIDOXINE (VITAMIN B6) 25 MG* Take 1 tablet by mouth daily * BUPROPION HCL SR 150 MG TABLE* Take 1 tablet by mouth twice * DEXTROAMPHETAMINE-AMPHE TAMINE* Take 1 capsule by mouth once * LAMOTRIGINE 100 MG TABLET Take 1 tablet by mouth once d* ACETAMINOPHEN 500 MG TABLET Take 500 mg by mouth every 8 * BUTALBITAL-ACETAMINOPHE N-CAFF* Take 1 tablet by mouth every * ALBUTEROL SULFATE 2.5 MG/3 ML* Use 2.5 mg via nebulizer ever* CETIRIZINE 10 MG TABLET Take 10 mg by mouth once sherrie* MOMETASONE 220 MCG/ACTUATION(* Inhale 1 Puff as instructed o* SUMATRIPTAN 50 MG TABLET Take 50 mg by mouth as needed* TRIAMCINOLONE ACETONIDE 55 MC* Use 1 [place] in the nose as ne* GABAPENTIN 800 MG TABLET Take 800 mg by mouth. takes a* PROMETHAZINE 25 MG TABLET Take 1 tablet [...] twice * Problem List As Of Date 01/14/2021 Noted Resolved Inguinal hernia with obstruction, without menti*08/06/2005 03/18/2013 PAIN GROIN (right) [R10.9] 11/23/2005 03/18/2013 Abdominal pain, right lower quadrant [R10.31] 02/10/2006 03/18/2013 Lumbago [M54.5] 03/06/2009 Headache [R51] 03/18/2013 TMJ (temporomandibular joint syndrome) [M26.609]03/18/2013 Intermittent asthma with allergic rhinitis [J45*05/27/2013 More... Family history of defects [Z82.79] 05/27/2013 10/07/2015 More... More... Rubella non-immune status, antepartum [O99.891,*06/20/2013 02/11/2014 More... Gestational diabetes [O24.419] 10/31/2013 02/11/2014 More... Supervision of other high-risk (V23.89*201302/11/2014 More... Type 2 diabetes mellitus without complication (*11/16/2016 More... Anxiety [F41.9] 11/16/2016 Bipolar affective disorder (HCC) [F31.9] 10/01/2018 Support system deficit [Z65.8] 10/11/2018 More... History of loss in prior , c*10/11/2018 10/29/2018 More... History of bipolar disorder [Z86.59] 10/11/2018 More... History of stroke [Z86.73] 10/11/2018 More... History of gestational diabetes in prior pregna*10/11/2018 10/29/2018 More... History of macrosomia in in prior pregna*10/11/2018 10/29/2018 More... History of shoulder dystocia with result of fra*10/11/2018 10/29/2018 More... History of hemorrhage, currently pre*10/11/2018 10/29/2018 More... Patient request for diagnostic testing [Z01.89] 10/11/2018 More... Breast pain, left [N64.4] 10/15/2018 More... Positive BARTOLO (antinuclear antibody) [R76.8] 10/15/2018 More... Supervision of high risk in first tri*10/15/2018 10/29/2018 More... Encounter Status:Closed by FABIANA MILTON MA on 01/14/21 Normal [facility] Coding Summary.on 02-22-2019 Coding Summary. CODING DATE: 019 FINAL [facility] STATUS: Home (Routine DC) PAYOR: Self Pay APC DESCRIPTION 5523 Level 3 Imaging without Contrast 5024 Level 4 Type A ED Visits 5693 Level 3 Drug Administration 5691 Level 1 Drug Administration ADMIT DX: REASON FOR VISIT DX: R10.9 Unspecified abdominal pain FINAL DX: PRINCIPAL: R10.12 Left upper quadrant pain SECONDARY: Z86.73 Personal history of transient ischemic attack (TIA), and cerebral infarction without residual deficits PYMT PROC APC STAT DESCRIPTION DOCTOR NAME DATE NOTE: The code number assigned matches the documented diagnosis and / or procedure in the patient's chart. However, the narrative phrase printed from the coding software may appear abbreviated, or result in slightly different terminology. Revised Coded By: Elisabeth Dubon Revised Date Saved: 02/22/2019 07:04 am Normal [facility] Auto Diffon 02-20-2019 Basophils/100 WBC (Bld) 0.5 % Normal 0.0-2.0 [facility] Comment on above: Order Comment: Order Added by Discern Expert. Performed By: #### 2 [id number], 7937553, 82617913, 4996997, 6343860, 5696680, 56316473, 4689002 #### [facility] Laboratory [address] [place] [address]21 Basophils/Leukocytes Auto (Bld) [Pure # fraction] 0.1 E9/L Normal 0.0-0.2 [facility] Comment on above: Order Comment: Order Added by Discern Expert. Performed By: #### 2 166705, 5780866, 97070676, 6124627, 7988465, 0206724, 04602564, 1314362 #### [facility] Laboratory [address] [place] [address] Eosinophils/100 WBC (Bld) 0.1 % Normal 0.0-8.0 [facility] Comment on above: Order Comment: Order Added by Discern Expert. Performed By: #### 2 487554, 5098309, 35770928, 2503291, 7998451, 8662564, 94573733, 5659025 #### [facility] Laboratory [address] [place] [address] Eosinophils/Leukocytes Auto (Bld) [Pure # fraction] 0.0 E9/L Normal 0.0-0.5 [facility] Comment on above: Order Comment: Order Added by Discern Expert. Performed By: #### 2 865392, 5461476, 98748035, 6988696, 8559068, 2306333, 21387786, 7484342 #### [facility] Laboratory [address] [place] [address] Lymphocytes/100 WBC (Bld) 8.4 % Low 14.0-50.0 [facility] Comment on above: Order Comment: Order Added by Discern Expert. Performed By: #### 2 383948, 7802735, 79999527, 9783923, 0884713, 0486053, 36776082, 3231734 #### [facility] Laboratory [address] [place] [address] Lymphocytes/Leukocytes Auto (Bld) [Pure # fraction] 0.9 E9/L Low 1.0-4.0 [facility] Comment on above: Order Comment: Order Added by Discern Expert. Performed By: #### 2 469456, 5674212, 31712176, 8308132, 0163785, 0686699, 10910319, 7832611 #### [facility] Laboratory [address] [place] [address]85 Monocytes/100 WBC (Bld) 5.2 % Normal 4.0-14.0 [facility] Comment on above: Order Comment: Order Added by Discern Expert. Performed By: #### 2 178561, 8562987, 60666220, 5256294, 9064861, 1392328, 90956029, 8466577 #### [facility] Laboratory [address] [place] [address] Monocytes/Leukocytes Auto (Bld) [Pure # fraction] 0.5 E9/L Normal 0.2-1.0 [facility] Comment on above: Order Comment: Order Added by Discern Expert. Performed By: #### 2 064688, 7154465, 22842696, 7242031, 6963467, 6287957, 76205352, 9771411 #### [facility] Laboratory [address] [place] [address] Neutrophils/100 WBC (Bld) 85.8 % High 36.0-75.0 [facility] Comment on above: Order Comment: Order Added by Mira Expert. Performed By: #### 2 123317, 2397335, 05208991, 1701604, 3079649, 0938988, 81684722, 1582324 #### [facility] Laboratory [address] [place] [address] Neutrophils/Leukocytes Auto (Bld) [Pure # fraction] 8.8 E9/L High 2.0-7.5 [facility] Comment on above: Order Comment: Order Added by Discern Expert. Performed By: #### 2 958962, 0950458, 48524601, 5478766, 6418102, 5946078, 03503086, 3277823 #### [facility] Laboratory [address] [place] [address] BMPon 02-20-2019 Creatinine [Mass/Vol] 0.8 mg/dL Normal 0.5-1.3 [facility] Comment on above: Performed By: #### 2 068873, 7158947, 84419564, 8230375, 9804324, 1375811, 43488376, 3656932 #### [facility] Laboratory [address] [place] [address] Urea nitrogen [Mass/Vol] 9 mg/dL Normal 5-21 [facility] Comment on above: Performed By: #### 2 215248, 6567504, 78707770, 7243825, 3549922, 7298562, 23468861, 7039591 #### [facility] Laboratory [address] [place] [address] Urea nitrogen/Creatinine [Mass ratio] 11 No Units Normal 10-20 [facility] Comment on above: Performed By: #### 2 108522, 8017103, 26263610, 0912801, 1754865, 8672606, 95427472, 4954333 #### [facility] Laboratory [address] [place] [address] Anion gap [Moles/Vol] 14 mmol/L Normal 6-16 [facility] Comment on above: Performed By: #### 2 138297, 5567880, 70257720, 4799852, 3507046, 6662007, 46099557, 3532156 #### [facility] Laboratory [address] [place] [address] Calcium [Mass/Vol] 9.0 mg/dL Normal 8.9-11.1 [facility] Comment on above: Performed By: #### 2 040494, 2523646, 99551717, 1497740, 2836732, 6168213, 19966617, 3201287 #### [facility] Laboratory [address] [place] [address] Chloride [Moles/Vol] 100 mmol/L Low 101-111 [facility] Comment on above: Performed By: #### 2 055930, 1742984, 18208552, 2164511, 2367728, 5329608, 66594071, 8625196 #### [facility] Laboratory [address] [place] [address] CO2 [Moles/Vol] 23 mmol/L Normal 21-31 [facility] Comment on above: Performed By: #### 2 113198, 0395306, 34871545, 5043406, 8144892, 6327573, 61099428, 9224793 #### [facility] Laboratory [address] [place] [address] Glucose [Mass/Vol] 181 mg/dL Normal 55-199 [facility] Comment on above: Result Comment: If t his glucose result represents a fasting glucose, interpretation should refer to the following reference range: 55-99 mg/dL Performed By: #### 2 790083, 1042889, 91572818, 2126550, 5200459, 5966737, 30363004, 9333418 #### [facility] Laboratory [address] [place] [address] Potassium [Moles/Vol] 3.7 mmol/L Normal 3.5-5.3 [facility] Comment on above: Performed By: #### 2 861018, 2491573, 65889784, 5930883, 0779060, 9202684, 64024773, 0816835 #### [facility] Laboratory [address] [place] [address] Sodium [Moles/Vol] 133 mmol/L Low 135-145 [facility] Comment on above: Performed By: #### 2 218223, 9600820, 90731273, 7234872, 2446083, 2074549, 82829753, 9291487 #### [facility] Laboratory [address] [place] [address] CBC w/ Auto Diffon Erythrocyte distribution width (RBC) [Ratio] 14.5 % High 10.9-14.2 [facility] Comment on above: Performed By: #### 2 916349, 4279154, 80126497, 8698341, 6963978, 4410228, 82273335, 1193765 #### [facility] Laboratory [address] [place] [address] Hematocrit (Bld) [Volume fraction] 38.9 % Normal 34.0-46.0 [facility] Comment on above: Performed By: #### 2 850066, 3143470, 14360278, 5463881, 2607223, 4747639, 24800996, 6799730 #### [facility] Laboratory [address] [place] [address] Hemoglobin (Bld) [Mass/Vol] 13.3 g/dL Normal 12.0-16.0 [facility] Comment on above: Performed By: #### 2 223167, 1929635, 38954588, 0719517, 0601496, 1697752, 26015091, 3889109 #### [facility] Laboratory [address] [place] [address] 16657 MCH (RBC) [Entitic mass] 28.1 pg Normal 27.0-34.0 [facility] Comment on above: Performed By: #### 2 739973, 1497333, 31749371, 3439998, 9330388, 5782985, 12398188, 0772560 #### [facility] Laboratory [address] [place] [address] MCHC (RBC) [Mass/Vol] 34.2 g/dL Normal 33.3-35.7 [facility] Comment on above: Performed By: #### 2 004994, 3652029, 60934253, 1117397, 1515425, 4333138, 23469240, 8740655 #### [facility] Laboratory [address] [place] [address] MCV (RBC) [Entitic vol] 82.3 fL Normal 80.0-100.0 [facility] Comment on above: Performed By: #### 2 855177, 9341076, 15272544, 6147557, 8758893, 1034562, 47558862, 9816285 #### [facility] Laboratory [address] [place] [address] Platelet mean volume (Bld) [Entitic vol] 7.0 fL Normal 6.4-10.8 [facility] Comment on above: Performed By: #### 2 575113, 7041486, 51286098, 5150586, 9707732, 8577574, 10768679, 7668940 #### [facility] Laboratory [address] [place], [place] [address] Platelets (Bld) [#/Vol] 179.0 E9/L Normal 150.0-500.0 [facility] Comment on above: Performed By: #### 2 674068, 9950006, 12859503, 6207071, 6785626, 2422705, 88409144, 0626040 #### [facility] Laboratory [address] [place] [address] 90[address] RBC (Bld) [#/Vol] 4.7 E12/L Normal 4.3-5.9 [facility] Comment on above: Performed By: #### 2 890561, 5439664, 09829714, 5304905, 9856978, 4191625, 15503382, 0733308 #### [facility] Laboratory [address] [place] [address] WBC corrected for nucl RBC Auto (Bld) [#/Vol] 10.3 E9/L Normal 4.0-11.0 [facility] Comment on above: Performed By: #### 2 044453, 0916570, 64211955, 0630447, 5376409, 3231869, 45361652, 4009223 #### [facility] Laboratory [address] [place] [address] CRPon 02-20-2019 CRP [Mass/Vol] 0.9 mg/dL Normal <=1.9 [facility] Comment on above: Performed By: #### 2 561074, 0363582, 00606119, 2160707, 7596411, 3241506, 44698412, 0637025 #### [facility] Laboratory [address] [place] [address] CT Abdomen/Pelvis w/o Contra ston 02-20-2019 CT Abdomen/Pelvis w/o Contrast Exam Date/Time: 02/20/2019 19:24 EDT Reason for Exam: Flank pain, stone disease suspected;Other (please specify) Report IMPRESSION: NO ACUTE INTRA-ABDOMINAL PROCESS. EXAM: CT of the abdomen and pelvis without contrast History: Left lower quadrant abdominal pain, nausea, vomiting, and diarrhea. Technique: Multiple contiguous axial images were obtained of the abdomen and pelvis from an level of the lung bases through the initial tuberosities without IV contrast. Multiplanar reformats were obtained. Comparison: None available Findings: Lung bases are clear. Lack of intravenous contrast precludes optimal evaluation of the abdominal and pelvic viscera. The unenhanced liver, spleen, pancreas, stomach, and adrenal glands are within normal limits. The unenhanced kidneys are within normal limits. No urinary tract calculi or hydronephrosis. Urinary bladder is well distended. Uterus is present. Abdominal aorta is nonaneurysmal. No retroperitoneal or abdominal/pelvic lymphadenopathy. No small bowel obstruction. No overt colonic mass or pericolonic inflammation. Appendix is surgically absent. No free fluid or free air. Osseous structures of the abdomen/pelvis are within normal limits. All CT scans at this facility use dose modulation, iterative reconstruction, and/or weight based dosing when appropriate to reduce radiation dose to as low as reasonably achievable. FINAL REPORT Dictated: 02/20/2019 8:01 pm Jesus Moses DO Signed (Electronic Signature): 02/20/2019 8:01 pm Signed by: Jesus Moses DO Transcribed by: DP Technologist: AP Exam Date/Time: 02/20/2019 19:24 EDT Technical Comments Oral contrast amount in ml's: 0 Rectal Contrast Given? No Normal [facility] ED Clinical Summaryon 2018 ED Clinical Summary (Inserted Image. Kathie ble to display) [address] [address] ED Clinical Summary Person Information Name: BERNADETTE FAUST/New_Adán Age: 24 Years : 1995 12:00 AM Sex: Female Language: Chinese PCP: BECKY SOTELO MD Marital Status: Single Visit Id: Visit Reason: Abdominal pain; Diarrhea; Vomiting; Abdominal pain; L ABD/BACK PAIN, NAUSEA, VOMITING Speciality: Acuity: 3 Enc Type: Emergency Med Service: Emergency Arrival: 02/20/2019 5:21 PM Discharge: 02/20/2019 9:17 PM LOS: 000 03:56 Checkin: 02/20/2019 5:21 PM Checkout: 02/20/2019 9:17 PM Dispo Type: Home (Routine DC) EVENTS: Event Name Event Status Request Date/Time Start Date/Time Complete Date/Time Arrive Complete 02/20/2019 5:21 PM 02/20/2019 5:21 PM 02/20/2019 5:21 PM Document Home Meds Complete 02/20/2019 5:21 PM 02/20/2019 6:50 PM 02/20/2019 6:50 PM Triage Complete 02/20/2019 5:21 PM 02/20/2019 5:50 PM 02/20/2019 5:50 PM Bed Assign Complete 02/20/2019 5:27 PM 02/20/2019 5:27 PM 02/20/2019 5:[address] Exam Complete 02/20/2019 5:27 PM 02/20/2019 5:35 PM 02/20/2019 5:35 PM RN Exam Complete 02/20/2019 5:27 PM 02/20/2019 6:15 PM 02/20/2019 6:15 PM Registration Complete 02/20/2019 5:35 PM 02/20/2019 6:41 PM 02/20/2019 6:[address] Exam Complete 02/20/2019 5:35 PM 02/20/2019 5:35 PM 02/20/2019 5:35 PM Meds Admin Request 02/20/2019 5:44 PM Pending Labs Complete 02/20/2019 5:44 PM 02/20/2019 7:21 PM Lab Complete 02/20/2019 5:44 PM 02/20/2019 7:21 PM Urine Collect Complete 02/20/2019 5:44 PM 02/20/2019 7:21 PM Patient Care Request 02/20/2019 5:[address] Complete 02/20/2019 5:44 PM 02/20/2019 6:47 PM 02/20/2019 7:24 PM Pending Labs Complete 02/20/2019 5:59 PM 02/20/2019 5:59 PM 02/20/2019 6:23 PM Lab Complete 02/20/2019 5:59 PM 02/20/2019 5:59 PM 02/20/2019 6:23 PM Pending Labs Complete 02/20/2019 6:00 PM 02/20/2019 6:00 PM 02/20/2019 6:00 PM Pending Labs Complete 02/20/2019 6:02 PM 02/20/2019 6:02 PM 02/20/2019 6:02 PM Lab Complete 02/20/2019 6:02 PM 02/20/2019 6:02 PM 02/20/2019 6:02 PM Possible SIRS Complete 02/20/2019 6:20 PM 02/20/2019 6:15 PM 02/20/2019 6:15 PM Meds Admin Complete 02/20/2019 6:31 PM 02/20/2019 6:42 PM Reg Complete Request 02/20/2019 6:41 PM Reg Bed Request Complete 02/20/2019 6:41 PM 02/20/2019 6:41 PM 02/20/2019 6:41 PM Discharge Complete 02/20/2019 9:08 PM 02/20/2019 9:17 PM 02/20/2019 9:17 PM Transfer Complete 02/20/2019 9:17 PM 02/20/2019 9:17 PM 02/20/2019 9:17 PM [address] [facility] [id number] [facility] DOC NOTES: MEDICAL INFORMATION: Prescriptions Given: PATIENT EDUCATION INFORMATION: Instructions: Abdominal Pain, Adult, Kenq-qq-Xvrb Follow up: With: Address: When: BECKY SOTELO [address] [place] [address] Business (1) Within 1 to 2 days Comments: Return to ED if symptoms worsen DIAGNOSIS: 1:Intermittent left upper quadrant abdominal pain; 2:Left flank pain Normal [facility] ED Note-Nursingon 02-20-2019 ED Note-Nursing Report recvd from BENTLEY Perez, care assumed at this time. Normal [facility] ED Note-Physicianon 02-21-20 ED Note-Physician Basic Information Time Seen: Connie BAIN, Ashwin Sahni 02/20/2019 17:35 Chief Complaint Pt presents with L periumbilical pain since 11am, pain has been intermittant for the past 3 months but not of this intensity. Occured while sitting at work, pain radiates through to back. N,V,D, afebrile. History of Present Illness 24 year old female presents to the ED for evaluation of left-sided abdominal pain and flank pain. The patient states that she saw her primary care doctor today for this as it started at 11 AM. The pain was intermittent. She has had it on and off for 3 months but has not been this intense or this constant. The patient's PCP thought of kidney stone or possible pancreatitis. The patient has never had a kidney stone or pancreatitis but has had some insulin concerns in the past. She is not a known diabetic however. The patient states that she has no falls or trauma. She has no nausea or vomiting. She has no watery diarrhea but 5 loose stools that are very soft in nature. Patient denies black or bloody stools. She denies dysuria or chance of . She denies hematuria. Urinalysis and test was done in the office she states and was completely negative. Review of Systems All Organ systems are reviewed. Pertinent positive and negative findings as mentioned in the HPI Physical Exam Vitals & Measurements T: 37.2 ?C (Oral) HR: 78(Peripheral) RR: 20 BP: 113/64 SpO2: 98% HT: 157 cm WT: 73 kg BMI: 29.62 Nurses note and vital signs reviewed and patient is not hypoxic. General: The patient appears well and in no apparent distress. Patient is resting comfortably on cart. Skin: Warm, dry, no pallor noted. There is no rash noted. Head: Normocephalic, atraumatic Eye: Normal conjunctiva Ears, Nose, Mouth, and Throat: oral mucosa is moist Cardiovascular: Regular Rate and Rhythm Respiratory: Patient is in no distress, no accessory muscle use, lungs are clear to auscultation, no wheezing, rales or rhonchi Back: non-tender over the midline, left-sided CVA tenderness GI: Normal bowel sounds, right-sided abdominal pain, no masses appreciated. No rebound, guarding, or rigidity noted. Musculoskeletal: The patient has no evidence of calf tenderness, no pitting edema, symmetrical pulses noted bilaterally Neurological: A&O x4, normal speech Psychiatric: Cooperative Medical Decision Making The patient was given Toradol, morphine, Zofran and IV fluids while she was here in the ER. Laboratory studies were within normal limits. The patient's CT is pending. At 1940 3K's transition to attending edition Dr. Cochran who will assume care. Patient improved with pain. Assessment/Plan 1. Intermittent left upper quadrant abdominal pain 2. Left flank pain Orders: ketorolac, 30 mg = 1 mL, Injection, IV Push, Once, Stop date 02/20/19 17:43:00 EDT, STAT, Start date 02/20/19 17:43:00 EDT morphine, 4 mg = 2 mL, Injection, IV Push, Once, Stop date 02/20/19 18:30:00 EDT, STAT, Start date 02/20/19 18:30:00 EDT ondansetron, 4 mg = 2 mL, Injection, IV Push, Once, Stop date 02/20/19 17:43:00 EDT, STAT, Start date 02/20/19 17:43:00 EDT Sodium Chloride 0.9% intravenous solution 1,000 mL, 1,000 mL, IV, 1,000 mL/hr, for 1 hour(s), Stop date 02/20/19 18:42:00 EDT, STAT, Start date 02/20/19 17:43:00 EDT, 1 hour(s), Total volume (mL): 1,000, Bolus Dose: 1,000 mL Sodium Chloride 0.9% intravenous solution 1,000 mL, 1,000 mL, IV, 20 mL/hr, STAT, Start date 02/20/19 17:43:00 EDT, 50 hour(s), Total volume (mL): 1,000 Automated Diff Basic Metabolic Panel C-Reactive Protein CBC w/ Auto Diff CT Abdomen/Pelvis w/o Contrast eGFR Extra Blue Tube Extra SST Tube Hepatic Function Panel Lipase Level NPO Diet Saline Lock Insert Sedimentation Rate Automated U Beta Hcg Qual UA With Cult Reflex Urine Dipstick POC Medications Administered Given NS 1000 ml Bolus 1,000 mL, 1000 mL, IV Sodium Chloride 0.9% IV William 1000 mL 1,000 mL, 1000 mL, IV ketorolac 30 mg/mL Inj 1 mL, 30 mg, IV Push morphine 2 mg/mL Inj, 4 mg, IV Push Zofran 4 mg/2 mL Injection, 4 mg, IV Push Disposition Plan Patient Discharge Condition Stable Discharge Disposition home Discharge Prescription List Prescriptions No active prescription medications Follow-up With When Contact Information BECKY JOVONNATERAUL Within 1 to 2 days [address] [place] [address] [facility] (1) Additional Instructions: Return to ED if symptoms worsen Patient Education Abdominal Pain, Adult, Airy-vj-Yxtt Attestation The patient's care was supervised by Dr. Karlee Baker including medical decision making, and disposition. Teaching-Supervisory Addendum-Brief I personally performed: supervision of the patient's care the medical decision making. The case was discussed with: the physician public services assistant, Ashwin Taylor PA-C. Procedures: I directly supervised the entire procedure. Evaluation and management service: I agree with the evaluation and management decisions made in this patient's care. Results interpretation: I agree with the study interpretation in this patient's care, I agree with the documentation of the study interpretation. ATTENDING NOTE: I discussed the management with the resident/PA. I reviewed the resident/PA's note and agree with the documented findings and plan of care. Jane Baker DO Problem List/Past Medical History Ongoing No qualifying data Historical CVA - Cerebrovascular accident Procedure/Surgical History Appendectomy and drainage, D&C - Dilatation and curettage. Medications Inpatient Sodium Chloride 0.9% IV William 1000 mL 1,000 mL, 1000 mL, IV Home No active home medications Allergies verapamil (Anaphylactic reaction) Social History Alcohol Substance Abuse Tobacco Lab Results WBC: 10.3 E9/L (02/20/19 17:55:00 EDT) RBC: 4.7 E12/L (02/20/19 17:55:00 EDT) Hgb: 13.3 gm/dL (02/20/19 17:55:00 EDT) Hct: 38.9 % (02/20/19 17:55:00 EDT) MCV: 82.3 fL (02/20/19 17:55:00 EDT) MCH: 28.1 pg (02/20/19 17:55:00 EDT) MCHC: 34.2 gm/dL (02/20/19 17:55:00 EDT) RDW: 14.5 % High (02/20/19 17:55:00 EDT) Platelet: 179 E9/L (02/20/19 17:55:00 EDT) MPV: 7 fL (02/20/19 17:55:00 EDT) Neutro Auto: 85.8 % High (02/20/19 17:55:00 EDT) Lymph Auto: 8.4 % Low (02/20/19 17:55:00 EDT) Bureau Auto: 5.2 % (02/20/19 17:55:00 EDT) Eos Auto: 0.1 % (02/20/19 17:55:00 EDT) Basophil Auto: 0.5 % (02/20/19 17:55:00 EDT) Neutro Absolute: 8.8 E9/L High (02/20/19 17:55:00 EDT) Lymph Absolute: 0.9 E9/L Low (02/20/19 17:55:00 EDT) Bureau Absolute: 0.5 E9/L (02/20/19 17:55:00 EDT) Eos Absolute: 0 E9/L (02/20/19 17:55:00 EDT) Basophil Absolute: 0.1 E9/L (02/20/19 17:55:00 EDT) Sed Rate Automated: 6 mm/hr (02/20/19 17:55:00 EDT) Glucose Lvl: 181 mg/dL (02/20/19 17:55:00 EDT) BUN: 9 mg/dL (02/20/19 17:55:00 EDT) Creatinine: 0.8 mg/dL (02/20/19 17:55:00 EDT) eGFR: >60 (02/20/19 17:55:00 EDT) eGFR AA: >60 (02/20/19 17:55:00 EDT) BUN/Creat Ratio: 11 (02/20/19 17:55:00 EDT) Sodium Lvl: 133 mmol/L Low (02/20/19 17:55:00 EDT) Potassium Lvl: 3.7 mmol/L (02/20/19 17:55:00 EDT) Chloride: 100 mmol/L Low (02/20/19 17:55:00 EDT) CO2: 23 mmol/L (02/20/19 17:55:00 EDT) AGAP: 14 mEq/L (02/20/19 17:55:00 EDT) Calcium Lvl: 9 mg/dL (02/20/19 17:55:00 EDT) Alk Phos: 56 Int._Unit/L (02/20/19 17:55:00 EDT) ALT: 18 Int._Unit/L (02/20/19 17:55:00 EDT) AST: 25 Int._Unit/L (02/20/19 17:55:00 EDT) Total Protein: 7.4 gm/dL (02/20/19 17:55:00 EDT) Albumin Lvl: 4.3 gm/dL (02/20/19 17:55:00 EDT) Globulin: 3.1 gm/dL (02/20/19 17:55:00 EDT) A/G Ratio: 1.4 (02/20/19 17:55:00 EDT) Bili Total: 0.5 mg/dL (02/20/19 17:55:00 EDT) Bili Direct: 0.1 mg/dL (02/20/19 17:55:00 EDT) Bili Indirect: 0.4 mg/dL (02/20/19 17:55:00 EDT) Lipase Lvl: 27 unit/L (02/20/19 17:55:00 EDT) CRP: 0.9 mg/dL (02/20/19 17:55:00 EDT) UA Spec Desc: Clean Catch (02/20/19 19:06:00 EDT) UA Color: Yellow2 (02/20/19 19:06:00 EDT) UA Clarity: Clear2 (02/20/19 19:06:00 EDT) UA Spec Grav: 1.010 (02/20/19 19:06:00 EDT) UA pH: 5.5 (02/20/19 19:06:00 EDT) UA Protein: NEGATIVE1 (02/20/19 19:06:00 EDT) UA Glucose: 1+ Abnormal (02/20/19 19:06:00 EDT) UA Ketones: NEGATIVE1 (02/20/19 19:06:00 EDT) UA Bili: NEGATIVE1 (02/20/19 19:06:00 EDT) UA Blood: NEGATIVE1 (02/20/19 19:06:00 EDT) UA Nitrite: NEGATIVE1 (02/20/19 19:06:00 EDT) UA Urobilinogen: 0.2 (02/20/19 19:06:00 EDT) UA Leuk Est: NEGATIVE1 (02/20/19 19:06:00 EDT) UA RBC: 0-3 (02/20/19 19:06:00 EDT) UA Squam Epithelial: 0-2 (02/20/19 19:06:00 EDT) UA WBC: 0-5 (02/20/19 19:06:00 EDT) U beta hCG Ql: Negative (02/20/19 19:06:00 EDT) Diagnostic Results CT Abdomen/Pelvis w/o Contrast 02/20/19 20:04:52 IMPRESSION: NO ACUTE INTRA-ABDOMINAL PROCESS. EXAM: CT of the abdomen and pelvis without contrast History: Left lower quadrant abdominal pain, nausea, vomiting, and diarrhea. Technique: Multiple contiguous axial images were obtained of the abdomen and pelvis from an level of the lung bases through the initial tuberosities without IV contrast. Multiplanar reformats were obtained. Comparison: None available Findings: Lung bases are clear. Lack of intravenous contrast precludes optimal evaluation of the abdominal and pelvic viscera. The unenhanced liver, spleen, pancreas, stomach, and adrenal glands are within normal limits. The unenhanced kidneys are within normal limits. No urinary tract calculi or hydronephrosis. Urinary bladder is well distended. Uterus is present. Abdominal aorta is nonaneurysmal. No retroperitoneal or abdominal/pelvic lymphadenopathy. No small bowel obstruction. No overt colonic mass or pericolonic inflammation. Appendix is surgically absent. No free fluid or free air. Osseous structures of the abdomen/pelvis are within normal limits. All CT scans at this facility use dose modulation, iterative reconstruction, and/or weight based dosing when appropriate to reduce radiation dose to as low as reasonably achievable. Signed By: Jesus Moses DO 02/20/19 19:24:02 Oral contrast amount in ml?s: 0 Rectal Contrast Given? No Signed By: Jesus Moses DO [facility] Comment on above: Result Comment: Elec tronically Signed By: Ashwin Taylor PA-C\.br\Date and Time Signed: 02/20/19 19:44 EDT\.br\Electronically Co-Signed By: Jane Baker DO\.br\Date and Time Co-Signed: 02/20/19 21:12 EDT ED Patient Education Noteon 02-20-2019 ED Patient Education Note Family Medicine Abdominal Pain Many things can cause belly (abdominal) pain. Most times, the belly pain is not dangerous. Many cases of belly pain can be watched and treated at home. HOME CARE ? Do not take medicines that help you go poop (laxatives) unless told to by your doctor. ? Only take medicine as told by your doctor. ? Eat or drink as told by your doctor. Your doctor will tell you if you should be on a special diet. GET HELP IF: ? You do not know what is causing your belly pain. ? You have belly pain while you are sick to your stomach (nauseous) or have runny poop (diarrhea). ? You have pain while you pee or poop. ? Your belly pain wakes you up at night. ? You have belly pain that gets worse or better when you eat. ? You have belly pain that gets worse when you eat fatty foods. ? You have a fever. GET HELP RIGHT AWAY IF: ? The pain does not go away within 2 hours. ? You keep throwing up (vomiting). ? The pain changes and is only in the right or left part of the belly. ? You have bloody or tarry looking poop. MAKE SURE YOU: ? Understand these instructions. ? Will watch your condition. ? Will get help right away if you are not doing well or get worse. Document Released: 04/03/2009 Document Revised: 10/21/2014 Document Reviewed: 06/25/2014 ExitCare? Patient Information ?2014 [employer]. This information is not intended to replace advice given to you by your health care provider. Make sure you discuss any questions you have with your health care provider. Normal [facility] ED Patient Summaryon 019 ED Patient Summary (Inserted Image. Kathie ble to display) [place] [id number] Patient Discharge Instructions Person Information Name: BERNADETTE FAUST Age: 24 Years Arrival Date: 02/20/2019 5:21 PM Discharge Diagnosis: 1:Intermittent left upper quadrant abdominal pain; 2:Left flank pain Primary Care Physician: ASHLEIGH MALIK, BECKY Desir Provider Information Primary Provider: Jane Baker Advanced Rug Shampooer:Ashwin Taylor PA-C The exam and treatment you received in the Emergency Department were for an urgent problem and are not intended as complete care. It is important that you follow up with a doctor, nurse practitioner, or physician?s public services assistant for ongoing care. If your symptoms become worse or you do not improve as expected and you are unable to reach your usual health care provider, you should return to the Emergency Department. We are available 24 hours a day. BERNADETTE FAUST has been given the following list of patient education materials, prescriptions and follow-up instructions: Follow-up Instructions: With: Address: When: BECKY ASHLEIGH [address] [phone] [facility] (1) Within 1 to 2 days Comments: Return to ED if symptoms worsen In the event that this physician does not participate in your insurance network, please consult with your insurance company to find a nearby participating provider. Patient Education Materials: Abdominal Pain, Adult, Hklv-ig-Bchw A MESSAGE TO ALL PATIENTS REGARDING OPIOIDS PRESCRIPTION OPIOIDS: WHAT YOU NEED TO KNOW Prescription opioids can be used to help relieve jgxjcihr-pw-zxgsgw pain and are often prescribed following a surgery or injury, or for certain health conditions. These medications can be an important part of the treatment but also come with serious risks. It is important to work with your healthcare provider to make sure you are getting the safest, most effective care. WHAT ARE THE RISKS AND SIDE EFFECTS OF OPIOID USE? Prescription opioids carry serious risks of addiction and overdose, especially with prolonged use. An opioid overdose, often marked by slowed breathing, can cause sudden . The use of prescription opioids can have a number of side effects as well, even when taken as directed: ? Tolerance?meaning you might need to take more of the medication for the same pain relief ? Physical dependence?meaning you have symptoms of withdrawal when a medication is stopped ? Increased sensitivity to pain ? Constipation ? Nausea, vomiting, and dry mouth ? Sleepiness and dizziness ? Confusion ? Depression ? Low levels of testosterone that can result in lower sex drive, energy, and strength ? Itching and sweating RISKS ARE GREATER WITH: ? History of drug misuse, substance use disorder, or overdose ? Mental health conditions (such as depression or anxiety) ? Sleep apnea ? Older age (65 years and older) ? Avoid alcohol while taking prescription opioids. Also, unless specifically advised by your health care provider, medications to avoid include: ? Benzodiazepines (such as Xanax or Valium) ? Muscle relaxants (such as Soma or Flexeril) ? Hypnotics (such as Ambien or Lunesta) ? Other prescription opioids KNOW YOUR OPTIONS Talk to your health care provider about ways to manage your pain that don?t involve prescription opioids. Some of these options may actually work better and have fewer risks and side effects. Options may include: ? Pain relievers such as acetaminophen, ibuprofen, and naproxen ? Some medication that are also used for depression or seizures ? Physical therapy and exercise ? Cognitive behavioral therapy, a psychological, goal-directed approach, in which patients learn how to modify physical, behavioral, and emotional triggers of pain and stress. IF YOU ARE PRESCRIBED OPIOIDS FOR PAIN: ? Never take opioids in greater amounts or more often than prescribed. ? Follow up with your primary health care provider. o Work together to create a plan on how to manage your pain. o Talk about ways to help manage your pain that don?t involve prescription opioids. o Talk about any and all concerns and side effects. ? Help prevent misuse and abuse o Never sell or share prescription opioids. o Never use another person?s prescription opioids. ? Store prescription opioids in a secure place and out of reach of others (this may include visitors, children, friends, and family). ? Safely dispose of unused prescription opioids: Find your community drug take-back program or your pharmacy mail-back program, or flush them down the toilet, following guidance from the Food and Drug Administration (www.fda.gov/Drugs/Reso urcesForYou). ? Visit www.cdc.gov/drugoverdos e to learn about the risks of opioids abuse and overdose. ? If you believe you may be struggling with addiction, tell your health resident care assistant and ask for guidance or call [facility]?S National Helpline at 6-113-801-HELP. v Source: US Department of Health and Human Services/Center for Disease Control & Prevention [facility] Medications Given: Medication Dose Route Sodium Chloride 0.9% intravenous solution 1000.00 mL Initial Volume 20.00 mL/hr IV Right Mid Forearm Sodium Chloride 0.9% intravenous solution 1000.00 mL Initial Volume 1000.00 mL/hr IV Right Mid Forearm ketorolac 30.00 mg IV Push Right Mid Forearm ondansetron 4.00 mg IV Push Right Mid Forearm morphine 4.00 mg IV Push Right Mid Forearm Medication Information: Comment: Pharmacy Information: Thank you for choosing [facility] Patient Education Materials: Abdominal Pain Many things can cause belly (abdominal) pain. Most times, the belly pain is not dangerous. Many cases of belly pain can be watched and treated at home. HOME CARE ? Do not take medicines that help you go poop (laxatives) unless told to by your doctor. ? Only take medicine as told by your doctor. ? Eat or drink as told by your doctor. Your doctor will tell you if you should be on a special diet. GET HELP IF: ? You do not know what is causing your belly pain. ? You have belly pain while you are sick to your stomach (nauseous) or have runny poop (diarrhea). ? You have pain while you pee or poop. ? Your belly pain wakes you up at night. ? You have belly pain that gets worse or better when you eat. ? You have belly pain that gets worse when you eat fatty foods. ? You have a fever. GET HELP RIGHT AWAY IF: ? The pain does not go away within 2 hours. ? You keep throwing up (vomiting). ? The pain changes and is only in the right or left part of the belly. ? You have bloody or tarry looking poop. MAKE SURE YOU: ? Understand these instructions. ? Will watch your condition. ? Will get help right away if you are not doing well or get worse. Document Released: 04/03/2009 Document Revised: 10/21/2014 Document Reviewed: 06/25/2014 ExitCare? Patient Information ?2014 [employer]. This information is not intended to replace advice given to you by your health care provider. Make sure you discuss any questions you have with your health care provider. IEVELYN STEPHANIE , have received the following patient education materials/instructions and have verbalized understanding: Patient Education Materials: Abdominal Pain, Adult, Issb-gp-Zuen Follow-up Instructions: With: Address: When: BECKY ASHLEIGH [address] [phone] [facility] (1) Within 1 to 2 days Comments: Return to ED if symptoms worsen Prescriptions: Patient Signature Date Clinician/Nurse Signature _ Date 02/20/19 21:17:29 Normal [facility] Hep Func Panelon 02-20-2019 Albumin [Mass/Vol] 1.4 g/dL Normal 1.1-2.2 [facility] Comment on above: Performed By: #### 2 [id number], [id number], [id number], 1339129, 7831660, 0805578, 58326160, 1073125 #### [facility] Laboratory [address] [place], [place] [id number] Albumin [Mass/Vol] 4.3 g/dL Normal 3.3-5.0 [facility] Comment on above: Performed By: #### 2 705212, 7032921, 21286161, 7850072, 2982522, 1932699, 92771485, 7801600 #### [facility] Laboratory [address] [place], [place] [address] ALP [Catalytic activity/Vol] 56 Int._Unit/L Normal 21-98 [facility] Comment on above: Performed By: #### 2 092341, 7141467, 77342247, 7528071, 1680014, 1264056, 77548971, 4813407 #### [facility] Laboratory [address] [place] [address] ALT No additional P-5'-P [Catalytic activity/Vol] 18 Int._Unit/L Normal 6-46 [facility] Comment on above: Performed By: #### 2 220469, 5231908, 22953417, 9676153, 2196056, 8043790, 24753773, 4567769 #### [facility] Laboratory [address] [place], [place] [address] AST [Catalytic activity/Vol] 25 Int._Unit/L Normal 5-43 [facility] Comment on above: Performed By: #### 2 610212, 9237787, 83579436, 8945307, 3371354, 5648757, 63840655, 8131384 #### [facility] Laboratory [address] [place] [address] Bilirubin [Mass/Vol] 0.5 mg/dL Normal 0.0-1.1 [facility] Comment on above: Performed By: #### 2 383437, 8094244, 82183031, 8229514, 0724954, 7292747, 40721007, 0088040 #### [facility] Laboratory [address] [place], [place] [address] Bilirubin.direct [Mass/Vol] 0.4 mg/dL Normal 0.1-0.9 [facility] Comment on above: Performed By: #### 2 453626, 9261556, 82033831, 9943677, 2839400, 9800207, 52555695, 4930366 #### [facility] Laboratory [address] [place] [address] Bilirubin.direct [Mass/Vol] 0.1 mg/dL Normal 0.1-0.4 [facility] Comment on above: Performed By: #### 2 665435, 8511754, 20276588, 0967777, 4766331, 4377990, 40174686, 1675249 #### [facility] Laboratory [address] [place] [address] Globulin (S) [Mass/Vol] 3.1 g/dL Normal 1.4-4.0 [facility] Comment on above: Performed By: #### 2 756881, 7222144, 91929668, 9980880, 5171337, 8179246, 60700233, 4541064 #### [facility] Laboratory [address] [place] [address] Protein [Mass/Vol] 7.4 g/dL Normal 6.0-7.8 [facility] Comment on above: Performed By: #### 2 922206, 2511445, 19680759, 7727489, 3914959, 1415265, 94199669, 3159499 #### [facility] Laboratory [address] [place] [address] Lipase Levelon 02-20-2019 Lipase [Catalytic activity/Vol] 27 unit/L Normal 13-58 [facility] Comment on above: Performed By: #### 2 552948, 1331560, 59727432, 6480418, 5140281, 4221260, 94033703, 5301993 #### [facility] Laboratory [address] [place] [address] Sed Rate Automatedon 019 ESR (Bld) [Velocity] 6 mm/h Normal 0-34 [facility] Comment on above: Performed By: #### 2 145007, 5497146, 04584409, 5027591, 8577774, 2391282, 31817799, 0937626 #### [facility] Laboratory [address] [place] [address] U BetaHcg Qualon 02-20-2019 HCG.beta subunit (U) [Moles/Vol] Negative Normal [facility] Comment on above: Performed By: #### 2 6643588, 61583649 #### [facility] Laboratory [address] [place] [address] UA With Cult Reflexon 2018 Bilirubin Ql (U) Negative Normal Negative [facility] Comment on above: Performed By: #### 2 9822730, 91254848 #### [facility] Laboratory [address] [place] [address] Clarity (U) CLEAR Normal Clear [facility] Comment on above: Performed By: #### 2 6802303, 18702340 #### [facility] Laboratory [address] [place] [address] Color (U) YELLOW Normal Yellow [facility] Comment on above: Performed By: #### 2 5944419, 70243973 #### [facility] Laboratory [address] [place] [address] Epithelial cells.squamous LM.HPF (Urine sed) [#/Area] 0-2 Normal 0-2 [facility] Comment on above: Performed By: #### 2 9169136, 83880002 #### [facility] Laboratory [address] [place] [address] Glucose Test strip (U) [Mass/Vol] 1+ Abnormal Negative [facility] Comment on above: Performed By: #### 2 8557786, 81271810 #### [facility] Laboratory [address] [place] [address] Hemoglobin Ql (U) Negative Normal Negative [facility] Comment on above: Performed By: #### 2 0280978, 81028377 #### [facility] Laboratory [address] [place] [address] Ketones (U) [Mass/Vol] Negative Normal Negative [facility] Comment on above: Performed By: #### 2 0836749, 05897928 #### [facility] Laboratory [address] [place] [address] [place].plasma/[place] .RBC (Bld) [Mass ratio] 0-3 Normal 0-3 [facility] Comment on above: Performed By: #### 2 0535144, 35416572 #### [facility] Laboratory [address] [place] [address] Nitrite Ql (U) Negative Normal Negative [facility] Comment on above: Performed By: #### 2 4406972, 34564750 #### [facility] Laboratory [address] [place] [address] pH (U) 5.5 [pH] 5.0-9.0 [facility] Comment on above: Performed By: #### 2 5008538, 86250642 #### [facility] Laboratory [address] [place] [address] Protein (U) [Mass/Vol] Negative Normal Negative [facility] Comment on above: Performed By: #### 2 6881759, 41286808 #### [facility] Laboratory [address] [place] [address] Specific gravity (U) [Rel density] 1.010 1.005-1.030 [facility] Comment on above: Performed By: #### 2 2164379, 08693990 #### [facility] Laboratory [address] [place] [address] UA Spec Desc Clean Catch Normal [facility] Comment on above: Performed By: #### 2 3418600, 62327643 #### [facility] Laboratory [address] [place] [address] Urobilinogen Qn (U) 0.2 {Stephanie'U}/dL Normal 0.0-1.0 [facility] Comment on above: Performed By: #### 2 1581243, 41177372 #### [facility] Laboratory [address] [place] [address] WBC Auto Ql (U) Negative Normal Negative [facility] Comment on above: Performed By: #### 2 5157730, 93460576 #### [facility] Laboratory [address] [place] [address] WBC LM.HPF (Urine sed) [#/Area] 0-5 Normal 0-5 [facility] Comment on above: Performed By: #### 2 7821132, 42007243 #### [facility] Laboratory [address] [place] [address] eGFRon 02-20-2019 GFR/1.73 sq M predicted among blacks MDRD (S/P/Bld) [Vol rate/Area] mL/min/{1.73_m2} Normal >=59 [facility] Comment on above: Order Comment: Order added by Discern Expert. Result Comment: eGFR is race adjusted. AA=. Performed By: #### 2 693199, 0319992, 25210262, 9908081, 2196239, 1247037, 63566852, 8851831 #### [facility] Laboratory [address] [place] [address] GFR/1.73 sq M predicted among non-blacks MDRD (S/P/Bld) [Vol rate/Area] mL/min/{1.73_m2} Normal >=59 [facility] Comment on above: Order Comment: Order added by Discern Expert. Result Comment: Taping Supervisor elias kidney disease could be indicated at eGFR's of less than 60 mL/min/1.73m2. Kidney failure is indicated at less than 15 mL/min/1.73m2. Performed By: #### 2 930804, 2452448, 95218055, 7407618, 6581546, 8094233, 44450608, 1711563 #### [facility] Laboratory [address] [place] [address] C-Reactive Proteinon 019 CRP mass conc 0.1 mg/dL Normal <0.9 [facility] Comment on above: Performed By: #### W SR, C3COMP, C4COMP, CRP, RF, SYPHGX, ENAID, DNA, SEPG, COMPD #### [place] [phone] C3 Complementon 01-22-2019 C3 Complement 126 mg/dL Normal 86-166 [facility] Comment on above: Performed By: #### W SR, C3COMP, C4COMP, CRP, RF, SYPHGX, ENAID, DNA, SEPG, COMPD #### [place] [phone] C4 Complementon 01-22-2019 C4 Complement 23 mg/dL Normal 13-46 [facility] Comment on above: Performed By: #### W SR, C3COMP, C4COMP, CRP, RF, SYPHGX, ENAID, DNA, SEPG, COMPD #### [place] [phone] CBC and Differentialon 01-22 Abs Baso <0.03 Normal <0.11 [facility] Comment on above: Performed By: #### W SR, C3COMP, C4COMP, CRP, RF, SYPHGX, ENAID, DNA, SEPG, COMPD #### [place] [phone] Abs Bureau 0.52 k/uL Normal <0.87 [facility] Comment on above: Performed By: #### W SR, C3COMP, C4COMP, CRP, RF, SYPHGX, ENAID, DNA, SEPG, COMPD #### [place] [id number] [place] [phone] Abs Neut 4.52 k/uL Normal 1.45-7.50 [facility] Comment on above: Performed By: #### W SR, C3COMP, C4COMP, CRP, RF, SYPHGX, ENAID, DNA, SEPG, COMPD #### [place] [phone] Basophils/100 WBC (Bld) 0.3 % Normal [facility] Comment on above: Performed By: #### W SR, C3COMP, C4COMP, CRP, RF, SYPHGX, ENAID, DNA, SEPG, COMPD #### [place] [phone] DTYPE Auto Diff Normal [facility] Comment on above: Performed By: #### W SR, C3COMP, C4COMP, CRP, RF, SYPHGX, ENAID, DNA, SEPG, COMPD #### [place] [phone] Eosinophils #/vol (Bld) 0.10 10*3/uL Normal <0.46 [facility] Comment on above: Performed By: #### W SR, C3COMP, C4COMP, CRP, RF, SYPHGX, ENAID, DNA, SEPG, COMPD #### [place] [phone] Eosinophils/100 WBC (Bld) 1.4 % Normal [facility] Comment on above: Performed By: #### W SR, C3COMP, C4COMP, CRP, RF, SYPHGX, ENAID, DNA, SEPG, COMPD #### [place] [phone] Erythrocyte distribution width Ratio (RBC) 13.2 % Normal 11.5-15.0 [facility] Comment on above: Performed By: #### W SR, C3COMP, C4COMP, CRP, RF, SYPHGX, ENAID, DNA, SEPG, COMPD #### [place] [phone] Hematocrit Volume Fraction (Bld) 42.6 % Normal 36.0-46.0 [facility] Comment on above: Performed By: #### W SR, C3COMP, C4COMP, CRP, RF, SYPHGX, ENAID, DNA, SEPG, COMPD #### [place] [address] Hemoglobin mass conc (Bld) 14.0 g/dL Normal 11.5-15.5 [facility] Comment on above: Performed By: #### W SR, C3COMP, C4COMP, CRP, RF, SYPHGX, ENAID, DNA, SEPG, COMPD #### [place] [phone] Lymphocytes #/vol (Bld) 2.12 10*3/uL Normal 1.00-4.00 [facility] Comment on above: Performed By: #### W SR, C3COMP, C4COMP, CRP, RF, SYPHGX, ENAID, DNA, SEPG, COMPD #### [place] [phone] Lymphocytes/100 WBC (Bld) 29.1 % Normal [facility] [facility] Comment on above: Performed By: #### W SR, C3COMP, C4COMP, CRP, RF, SYPHGX, ENAID, DNA, SEPG, COMPD #### [place] [phone] MCH Entitic mass (RBC) 27.7 pG Normal 26.0-34.0 [facility] Comment on above: Performed By: #### W SR, C3COMP, C4COMP, CRP, RF, SYPHGX, ENAID, DNA, SEPG, COMPD #### [place] [address] MCHC mass conc (RBC) 32.9 g/dL Normal 30.5-36.0 [facility] Comment on above: Performed By: #### W SR, C3COMP, C4COMP, CRP, RF, SYPHGX, ENAID, DNA, SEPG, COMPD #### [place] [address] MCV Entitic volume (RBC) 84.4 fL Normal 80.0-100.0 [facility] Comment on above: Performed By: #### W SR, C3COMP, C4COMP, CRP, RF, SYPHGX, ENAID, DNA, SEPG, COMPD #### [place] [id number] [place] [address] Monocytes/100 WBC (Bld) 7.1 % Normal [facility] Comment on above: Performed By: #### W SR, C3COMP, C4COMP, CRP, RF, SYPHGX, ENAID, DNA, SEPG, COMPD #### [place] [address] Neutrophils/100 WBC (Bld) 62.1 % Normal [facility] Comment on above: Performed By: #### W SR, C3COMP, C4COMP, CRP, RF, SYPHGX, ENAID, DNA, SEPG, COMPD #### [place] [address] Platelet mean volume Entitic volume (Bld) 9.2 fL Normal 9.0-12.7 [facility] Comment on above: Performed By: #### W SR, C3COMP, C4COMP, CRP, RF, SYPHGX, ENAID, DNA, SEPG, COMPD #### [place] [address] Platelets #/vol (Bld) 222 10*3/uL Normal 150-400 [facility] Comment on above: Performed By: #### W SR, C3COMP, C4COMP, CRP, RF, SYPHGX, ENAID, DNA, SEPG, COMPD #### [place] [address] RBC #/vol (Bld) 5.05 10*6/uL Normal 3.90-5.20 [facility] Comment on above: Performed By: #### W SR, C3COMP, C4COMP, CRP, RF, SYPHGX, ENAID, DNA, SEPG, COMPD #### [place] [id number] [place] [address] WBC #/vol (Bld) 7.28 10*3/uL Normal 3.70-11.00 [facility] Comment on above: Performed By: #### W SR, C3COMP, C4COMP, CRP, RF, SYPHGX, ENAID, DNA, SEPG, COMPD #### [place] [address] Comp Metabolic Panelon 01-22 Albumin mass conc 5.0 g/dL High 3.9-4.9 [facility] Comment on above: Performed By: #### W SR, C3COMP, C4COMP, CRP, RF, SYPHGX, ENAID, DNA, SEPG, COMPD #### [place] [address] ALP enzyme act/vol 66 U/L Normal 34-123 [facility] Comment on above: Performed By: #### W SR, C3COMP, C4COMP, CRP, RF, SYPHGX, ENAID, DNA, SEPG, COMPD #### [place] [address] ALT enzyme act/vol 15 U/L Normal 7-38 [facility] Comment on above: Performed By: #### W SR, C3COMP, C4COMP, CRP, RF, SYPHGX, ENAID, DNA, SEPG, COMPD #### [place] [address] Anion gap molar conc 12 mmol/L Normal 9-18 [facility] Comment on above: Performed By: #### W SR, C3COMP, C4COMP, CRP, RF, SYPHGX, ENAID, DNA, SEPG, COMPD #### [place] [id number] [place] [address] AST enzyme act/vol 18 U/L Normal 13-35 [facility] Comment on above: Performed By: #### W SR, C3COMP, C4COMP, CRP, RF, SYPHGX, ENAID, DNA, SEPG, COMPD #### [place] [address] Bilirubin mass conc 0.2 mg/dL Normal 0.2-1.3 [facility] Comment on above: Performed By: #### W SR, C3COMP, C4COMP, CRP, RF, SYPHGX, ENAID, DNA, SEPG, COMPD #### [place] [address] Calcium mass conc 9.8 mg/dL Normal 8.6-10.0 [facility] Comment on above: Performed By: #### W SR, C3COMP, C4COMP, CRP, RF, SYPHGX, ENAID, DNA, SEPG, COMPD #### [place] [address] Chloride molar conc 99 mmol/L Normal 97-105 [facility] Comment on above: Performed By: #### W SR, C3COMP, C4COMP, CRP, RF, SYPHGX, ENAID, DNA, SEPG, COMPD #### [place] [address] CO2 molar conc 25 mmol/L Normal 22-33 [facility] Comment on above: Performed By: #### W SR, C3COMP, C4COMP, CRP, RF, SYPHGX, ENAID, DNA, SEPG, COMPD #### [place] [address] Creatinine mass conc 0.65 mg/dL Normal 0.58-0.96 [facility] Comment on above: Performed By: #### W SR, C3COMP, C4COMP, CRP, RF, SYPHGX, ENAID, DNA, SEPG, COMPD #### [place] [address] eGFR- Amer. >60 Normal [facility] Comment on above: Performed By: #### W SR, C3COMP, C4COMP, CRP, RF, SYPHGX, ENAID, DNA, SEPG, COMPD #### [facility] [employer] [address] [place] [id number] GFR/1.73 sq M predicted among non-blacks MDRD vol rate/area (S/P/Bld) mL/min/{1.73_m2} Normal [facility] Comment on above: Result Comment: eGFR (Estimated GFR) Units of [...] accurately reflect actual GFR. Performed By: #### W SR, C3COMP, C4COMP, CRP, RF, SYPHGX, ENAID, DNA, SEPG, COMPD #### [facility] [employer] [address] [place] [address] Glucose mass conc 115 mg/dL High 74-99 [facility] Comment on above: Performed By: #### W SR, C3COMP, C4COMP, CRP, RF, SYPHGX, ENAID, DNA, SEPG, COMPD #### [facility] [employer] [address] [place] [address] Potassium molar conc 3.9 mmol/L Normal 3.7-5.1 [facility] Comment on above: Performed By: #### W SR, C3COMP, C4COMP, CRP, RF, SYPHGX, ENAID, DNA, SEPG, COMPD #### [facility] [employer] [address] [place], [place] [address] Protein mass conc 8.1 g/dL High 6.3-8.0 [facility] Comment on above: Performed By: #### W SR, C3COMP, C4COMP, CRP, RF, SYPHGX, ENAID, DNA, SEPG, COMPD #### [facility] [employer] [address] [address] Sodium molar conc 136 mmol/L Normal 136-144 [facility] Comment on above: Performed By: #### W SR, C3COMP, C4COMP, CRP, RF, SYPHGX, ENAID, DNA, SEPG, COMPD #### [place] [id number] [place] [address] Urea nitrogen mass conc 7 mg/dL Normal 7-21 [facility] Comment on above: Performed By: #### W SR, C3COMP, C4COMP, CRP, RF, SYPHGX, ENAID, DNA, SEPG, COMPD #### [place] [address] Complmnt Def.Assayon 019 Complmnt Def, Qual Normal Normal Normal [facility] Comment on above: Performed By: #### W SR, C3COMP, C4COMP, CRP, RF, SYPHGX, ENAID, DNA, SEPG, COMPD #### [place] [id number] [place] [address] Complmnt Def. Assay 155 Units Normal [facility] Comment on above: Result Comment: Units are Interpreted as Follows: Normal/High Specimens >60 Low Specimens <=60 Performed By: #### W SR, C3COMP, C4COMP, CRP, RF, SYPHGX, ENAID, DNA, SEPG, COMPD #### [facility] [address] [place] [address] DNA Antibody w/ Conf.on 12-29 DNA Antibody w/ Conf. <12 Normal <30 [facility] Comment on above: Result Comment: Nega tive for ds DNA Antibodies Negative: <30 IU/mL Equivocal: 30-74 IU/mL Positive: >74 IU/mL Performed By: #### W SR, C3COMP, C4COMP, CRP, RF, SYPHGX, ENAID, DNA, SEPG, COMPD #### [place] [address] CASSIA Antibody Panelon 019 Centromere <0.2 Normal <1.0 [facility] Comment on above: Result Comment: NEGA TIVE Negative: <1.0 AI Positive: >0.9 AI Performed By: #### W SR, C3COMP, C4COMP, CRP, RF, SYPHGX, ENAID, DNA, SEPG, COMPD #### [place] [address] Chromatin Antibody <0.2 Normal <1.0 [facility] Comment on above: Result Comment: NEGA TIVE Negative: <1.0 AI Positive: >0.9 AI Performed By: #### W SR, C3COMP, C4COMP, CRP, RF, SYPHGX, ENAID, DNA, SEPG, COMPD #### [place] [address] RICHY 1 Antibody <0.2 Normal <1.0 [facility] Comment on above: Result Comment: NEGA TIVE Negative: <1.0 AI Positive: >0.9 AI Performed By: #### W SR, C3COMP, C4COMP, CRP, RF, SYPHGX, ENAID, DNA, SEPG, COMPD #### [place] [address] Ribosomal HAIR MACHINE OPERATOR <0.2 Normal <1.0 [facility] Comment on above: Result Comment: NEGA TIVE Negative: <1.0 AI Positive: >0.9 AI Performed By: #### W SR, C3COMP, C4COMP, CRP, RF, SYPHGX, ENAID, DNA, SEPG, COMPD #### [place] [address] HAIR MACHINE OPERATOR Antibody <0.2 Normal <1.0 [facility] Comment on above: Result Comment: NEGA TIVE Negative: <1.0 AI Positive: >0.9 AI Performed By: #### W SR, C3COMP, C4COMP, CRP, RF, SYPHGX, ENAID, DNA, SEPG, COMPD #### [place] [phone] Scleroderma IgG Ab <0.2 Normal <1.0 [facility] Comment on above: Result Comment: NEGA TIVE Negative: <1.0 AI Positive: >0.9 AI Performed By: #### W SR, C3COMP, C4COMP, CRP, RF, SYPHGX, ENAID, DNA, SEPG, COMPD #### [place] [phone] Sm Antibody <0.2 Normal <1.0 [facility] Comment on above: Result Comment: NEGA TIVE Negative: <1.0 AI Positive: >0.9 AI Performed By: #### W SR, C3COMP, C4COMP, CRP, RF, SYPHGX, ENAID, DNA, SEPG, COMPD #### [place] [phone] SSA Antibody <0.2 Normal <1.0 [facility] Comment on above: Result Comment: NEGA TIVE Negative: <1.0 AI Positive: >0.9 AI Performed By: #### W SR, C3COMP, C4COMP, CRP, RF, SYPHGX, ENAID, DNA, SEPG, COMPD #### [place] [phone] SSB Antibody <0.2 Normal <1.0 [facility] Comment on above: Result Comment: NEGA TIVE Negative: <1.0 AI Positive: >0.9 AI Performed By: #### W SR, C3COMP, C4COMP, CRP, RF, SYPHGX, ENAID, DNA, SEPG, COMPD #### [place] [phone] Lupus Anticoag Panelon 01-22 Anti Xa Inhib Assay *LAB USE ONLY* Anti Xa activity was not detected. Normal [facility] Comment on above: Result Comment: This test was developed and its performance characteristics determined by [facility]'s [facility] [place] ([facility] It has not been cleared or approved by the FDA. [facility] is regulated under CLIA as qualified to perform high-complexity testing. This test is used for clinical purposes. It should not be regarded as investigational or for research. Performed By: #### W SR, C3COMP, C4COMP, CRP, RF, SYPHGX, ENAID, DNA, SEPG, COMPD #### [facility] [address] [place] [address] aPTT Coag time (Bld) 28.7 s Normal 24.4-33.4 [facility] Comment on above: Performed By: #### W SR, C3COMP, C4COMP, CRP, RF, SYPHGX, ENAID, DNA, SEPG, COMPD #### [facility] [address] [place] [address] aPTT Coag time (Bld) 27.5 s Normal <33.2 [facility] Comment on above: Performed By: #### W SR, C3COMP, C4COMP, CRP, RF, SYPHGX, ENAID, DNA, SEPG, COMPD #### [facility] [address] [place] [address] aPTT Coag time (Bld) 25.5 s Normal 23.0-32.4 [facility] Comment on above: Result Comment: Unfr actionated Heparin Therapeutic Ranges: Standard Heparin Nomogram: 53 to 78 seconds (anti-Xa level of 0.3 to 0.7 U/ml) Low Dose/ACS Nomogram: 49 to 67 seconds (anti-Xa level of 0.2 to 0.5 U/ml) Stroke Treatment Nomogram: 49 to 67 seconds (anti-Xa level of 0.2 to 0.5 U/ml) Note: The APTT therapeutic range has been determined for the current lot of laboratory APTT reagent in use throughout the [facility]. Performed By: #### W SR, C3COMP, C4COMP, CRP, RF, SYPHGX, ENAID, DNA, SEPG, COMPD #### [place] [id number] [place] [address] aPTT Coag time (Bld) 29.8 s Normal <35.0 [facility] Comment on above: Performed By: #### W SR, C3COMP, C4COMP, CRP, RF, SYPHGX, ENAID, DNA, SEPG, COMPD #### [place] [id number] [place] [address] Beta2 Glycoprot IgG <9 Normal <20 [facility] Comment on above: Result Comment: < 20 SGU Negative 20-80 SGU Low Positive > 80 SGU High Positive These results were obtained with the Yebol QUANTA Lite B2 GPI IgG MARIN. B2 GPI IgG values obtained with different manufacturers' assay methods may not be used interchangeably. The magnitude of the reported IgG levels cannot be correlated to an endpoint titer. Performed By: #### W SR, C3COMP, C4COMP, CRP, RF, SYPHGX, ENAID, DNA, SEPG, COMPD #### [place] [phone] DRVVT 1:1 Mix 36.5 sec Normal 32.7-46.7 [facility] Comment on above: Performed By: #### W SR, C3COMP, C4COMP, CRP, RF, SYPHGX, ENAID, DNA, SEPG, COMPD #### [place] [id number] [place] [address] DRVVT Confirm Ratio 1.03 Normal <1.21 [facility] Comment on above: Performed By: #### W SR, C3COMP, C4COMP, CRP, RF, SYPHGX, ENAID, DNA, SEPG, COMPD #### [place] [id number] [place] [address] DRVVT Screen 34.2 sec Normal 32.7-46.7 [facility] Comment on above: Performed By: #### W SR, C3COMP, C4COMP, CRP, RF, SYPHGX, ENAID, DNA, SEPG, COMPD #### [facility] [address] [place] [address] Hex Phase Confirm 46.8 sec Normal 41.8-54.9 [facility] Comment on above: Performed By: #### W SR, C3COMP, C4COMP, CRP, RF, SYPHGX, ENAID, DNA, SEPG, COMPD #### [facility] [address] [place] [address] Hex Phase Delta 2.9 delta sec Normal <9.1 [facility] Comment on above: Performed By: #### W SR, C3COMP, C4COMP, CRP, RF, SYPHGX, ENAID, DNA, SEPG, COMPD #### [facility] [address] [place] [address] Hex Phase Screen 49.7 sec Normal 45.0-59.9 [facility] Comment on above: Performed By: #### W SR, C3COMP, C4COMP, CRP, RF, SYPHGX, ENAID, DNA, SEPG, COMPD #### [facility] [address] [place] [address] IgA Cardiolipin Ab. <9 Normal 0-11 [facility] Comment on above: Result Comment: <12 APL Negative 12-40 APL Equivocal >40 APL Positive The following results were obtained with an Yebol QUANTA Lite BJ IgA III MARIN. Cardiolipin IgA values obtained with different manufacturers' assay methods may not be used interchangeably. The magnitude of the reported IgA levels cannot be correlated to an endpoint titer. Performed By: #### W SR, C3COMP, C4COMP, CRP, RF, SYPHGX, ENAID, DNA, SEPG, COMPD #### [facility] [address] [place] [address] IgG Cardiolipin Ab. <9 Normal 0-9 [facility] Comment on above: Result Comment: <10 GPL Negative 10-40 GPL Equivocal >40 GPL Positive The following results were obtained with the Inova QUANTA Lite BJ IgG III MARIN. Cardiolipin IgG values obtained with the different manufacturers' assay methods may not be used interchangeably. The magnitude of the reported IgG levels cannot be correlated to an endpoint titer. Performed By: #### W SR, C3COMP, C4COMP, CRP, RF, SYPHGX, ENAID, DNA, SEPG, COMPD #### [facility] [employer] [address] [place], [place] [address] IgM Cardiolipin Ab. 14 MPL High 0-11 [facility] Comment on above: Result Comment: <12 MPL Negative 12-40 MPL Equivocal >40 MPL Positive The following results were obtained with the Inova QUANTA Lite BJ IgM III MARIN. Cardiolipin IgM values obtained with different manufacturers' assay methods may not be used interchangeably. The magnitude of the reported IgM levels cannot be correlated to an endpoint titer. Performed By: #### W SR, C3COMP, C4COMP, CRP, RF, SYPHGX, ENAID, DNA, SEPG, COMPD #### [facility] [employer] [address] [place], [place] [address] INR Coag RelTime (Bld) {INR} Low 0.9-1.3 [facility] Comment on above: Result Comment: Margo min K Antagonist (VKA) Therapeutic Range: INR 2 to 3 (Target INR of 2.5) Note: For patients treated with VKA drugs, such as warfarin, the [employer] 2012 Guideline recommends a therapeutic INR range of 2 to 3 (target INR of 2.5). This recommendation includes high-risk patients with antiphospholipid syndrome with previous arterial or venous thromboembolism, current-generation mechanical or bioprosthetic aortic heart valve replacement. Note: Patients with mechanical aortic valve replacement and additional risk factors for thromboembolic events (atrial fibrillation, previous thromboembolism, LV dysfunction, hypercoagulable conditions) or an older generation mechanical AVR (i.e., ball in-Cage) or any mechanical MVR should have a INR therapeutic range of 2.5 to 3.5 (target INR of 3). Osbaldo RUFF, et al. Chest 2012, 141:7S-47S Kathie RA, et al. [facility] 2017, 70: 252-289 Performed By: #### W SR, C3COMP, C4COMP, CRP, RF, SYPHGX, ENAID, DNA, SEPG, COMPD #### [facility] [address] [place] [id number] Interpretation (NOTE) Normal [facility] Comment on above: Result Comment: Perf orming Pathologist: Dr. Ho Mcdonnell MD Interpretation: No significant abnormality - see comment below. Laboratory testing was performed to evaluate the presence of a lupus anticoagulant and anti-phospholipid antibodies. The PT and APTT values are not prolonged. A normal thrombin time (TT) makes a heparin and/or direct thrombin inhibitor effect unlikely. LUPUS ANTICOAGULANT STUDIES: There is no evidence for a lupus anticoagulant or other coagulation inhibitor at this time. ANTIPHOSPHOLIPID ANTIBODY STUDIES: The IgM anticardiolipin antibody titer was minimally elevated. This finding is of doubtful clinical significance.The IgG and IgA anticardiolipin antibody titers were both negative. Both the IgG and IgM Beta-2 Glycoprotein I antibody titers were negative. The criteria for the diagnosis of a Lupus Anticoagulant, as detailed by the Subcommittee on Lupus Anticoagulants and Anti-Phospholipid Antibodies of the Scientific and Standardization Committee of the International Society on Thrombosis and Haemostasis (ISTH), are the following: (1) A prolonged phospholipid-dependent clotting test (screening test); (2) Evidence for an inhibitor (1:1 mix of patient:normal plasma); (3) Evidence that the inhibitor is phospholipid dependent and (4) Exclusion of specific inhibitors (ie, fVIII inhibitors, direct thrombin inhibitors, or heparin). Thromb. Haemost. 74:1185 (1995). Performed By: #### W SR, C3COMP, C4COMP, CRP, RF, SYPHGX, ENAID, DNA, SEPG, COMPD #### [facility] [address] [place], [place] [address] PNP Negative Normal Negative [facility] Comment on above: Performed By: #### W SR, C3COMP, C4COMP, CRP, RF, SYPHGX, ENAID, DNA, SEPG, COMPD #### [place] [address] Protein mass conc g/dL Normal <20 [facility] Comment on above: Result Comment: < 20 SMU Negative 20-80 SMU Low Positive > 80 SMU High Positive These results were obtained with the BlosonA Lite B2 GPI IgM MARIN. B2 GPI IgM values obtained with different manufacturers' assay methods may not be used interchangeably. The magnitude of the reported IgM levels cannot be correlated to an endpoint titer. Performed By: #### W SR, C3COMP, C4COMP, CRP, RF, SYPHGX, ENAID, DNA, SEPG, COMPD #### [place] [address] PT Sec 9.6 sec Low 9.7-13.0 [facility] Comment on above: Performed By: #### W SR, C3COMP, C4COMP, CRP, RF, SYPHGX, ENAID, DNA, SEPG, COMPD #### [place] [address] Thrombin Time 15.1 sec Normal <18.6 [facility] Comment on above: Performed By: #### W SR, C3COMP, C4COMP, CRP, RF, SYPHGX, ENAID, DNA, SEPG, COMPD #### [place] [address] Protein Electrophor.on 01-22 Albumin mass conc 4.60 g/dL High 3.37-4.23 [facility] Comment on above: Performed By: #### W SR, C3COMP, C4COMP, CRP, RF, SYPHGX, ENAID, DNA, SEPG, COMPD #### [place] [id number] Alpha 1 Globulin 0.25 gm/dL Normal 0.18-0.31 [facility] Comment on above: Performed By: #### W SR, C3COMP, C4COMP, CRP, RF, SYPHGX, ENAID, DNA, SEPG, COMPD #### [facility] [address] [place] [phone] Alpha 2 Globulin 0.72 gm/dL Normal 0.52-0.97 [facility] Comment on above: Performed By: #### W SR, C3COMP, C4COMP, CRP, RF, SYPHGX, ENAID, DNA, SEPG, COMPD #### [place] [id number] [place] [phone] Beta Globulin 0.98 gm/dL Normal 0.84-1.36 [facility] Comment on above: Performed By: #### W SR, C3COMP, C4COMP, CRP, RF, SYPHGX, ENAID, DNA, SEPG, COMPD #### [place] [phone] Gamma Globulin 1.15 gm/dL Normal 0.70-1.44 [facility] Comment on above: Performed By: #### W SR, C3COMP, C4COMP, CRP, RF, SYPHGX, ENAID, DNA, SEPG, COMPD #### [place] [phone] Interpretation SEE COMMENT Normal [facility] Comment on above: Result Comment: No d efinitive M protein is identified on protein electrophoresis. Performed By: #### W SR, C3COMP, C4COMP, CRP, RF, SYPHGX, ENAID, DNA, SEPG, COMPD #### [place] [id number] [place] [phone] M Bienvenido Concentratn 0.00 gm/dL Normal 0.00 [facility] Comment on above: Performed By: #### W SR, C3COMP, C4COMP, CRP, RF, SYPHGX, ENAID, DNA, SEPG, COMPD #### [place] [id number] [place] [phone] Protein mass conc N/A Normal [facility] Comment on above: Performed By: #### W SR, C3COMP, C4COMP, CRP, RF, SYPHGX, ENAID, DNA, SEPG, COMPD #### [place] [address] Protein mass conc 7.7 g/dL Normal 6.0-8.4 [facility] Comment on above: Performed By: #### W SR, C3COMP, C4COMP, CRP, RF, SYPHGX, ENAID, DNA, SEPG, COMPD #### [place] [address] SPE Staff Review Reviewed by Dre Roa MD ([id number]) [facility] Comment on above: Performed By: #### W SR, C3COMP, C4COMP, CRP, RF, SYPHGX, ENAID, DNA, SEPG, COMPD #### [place] [address] Rheumatoid Factoron 01-23-20 19 Rheumatoid Factor <10 Normal <16 [facility] Comment on above: Performed By: #### W SR, C3COMP, C4COMP, CRP, RF, SYPHGX, ENAID, DNA, SEPG, COMPD #### [place] [id number] Sed Rate Westergrenon 2018 Sed Rate Westergren 5 mm/hr Normal 0-20 [facility] Comment on above: Performed By: #### W SR, C3COMP, C4COMP, CRP, RF, SYPHGX, ENAID, DNA, SEPG, COMPD #### [place] [address] Syphilis IgG with Confon Syphilis IgG <0.2 [facility] Comment on above: Result Comment: Anti body index is interpreted as follows: Non reactive SPECIMENS <=0.8 Weak reactive SPECIMENS 0.9 to 5.9 Reactive SPECIMENS >=6.0 Performed By: #### W SR, C3COMP, C4COMP, CRP, RF, SYPHGX, ENAID, DNA, SEPG, COMPD #### [place] [id number] [place] [phone] Syphilis IgG, Qual Nonreactive Normal Nonreactive [facility] Comment on above: Result Comment: No s erological evidence of infection with T. pallidum. Performed By: #### W SR, C3COMP, C4COMP, CRP, RF, SYPHGX, ENAID, DNA, SEPG, COMPD #### [place] [phone] Urinalysis with Microscopico n 01-22-2019 Bilirubin, Urine Negative Normal Negative [facility] Comment on above: Performed By: #### W SR, C3COMP, C4COMP, CRP, RF, SYPHGX, ENAID, DNA, SEPG, COMPD #### [place] [phone] Clarity Nom (U) Clear Normal Clear [facility] Comment on above: Performed By: #### W SR, C3COMP, C4COMP, CRP, RF, SYPHGX, ENAID, DNA, SEPG, COMPD #### [place] [phone] Color Nom (U) Yellow Normal Yellow [facility] Comment on above: Performed By: #### W SR, C3COMP, C4COMP, CRP, RF, SYPHGX, ENAID, DNA, SEPG, COMPD #### [place] [phone] Comments SEE COMMENT Normal [facility] Comment on above: Result Comment: N/A Performed By: #### W SR, C3COMP, C4COMP, CRP, RF, SYPHGX, ENAID, DNA, SEPG, COMPD #### [place] [phone] Epithelial cells LM.HPF #/area (Urine sed) SEE COMMENT Normal [facility] Comment on above: Result Comment: Few Squamous Epithelial Cells Performed By: #### W SR, C3COMP, C4COMP, CRP, RF, SYPHGX, ENAID, DNA, SEPG, COMPD #### [place] [id number] [place] [phone] Glucose Ql (U) 150 mg/dL Critically abnormal Negative [facility] Comment on above: Performed By: #### W SR, C3COMP, C4COMP, CRP, RF, SYPHGX, ENAID, DNA, SEPG, COMPD #### [place] [phone] Hemoglobin/Blood,Ur Negative Normal Negative [facility] Comment on above: Performed By: #### W SR, C3COMP, C4COMP, CRP, RF, SYPHGX, ENAID, DNA, SEPG, COMPD #### [place] [phone] Ketones Ql (U) Negative Normal [facility] Comment on above: Performed By: #### W SR, C3COMP, C4COMP, CRP, RF, SYPHGX, ENAID, DNA, SEPG, COMPD #### [place] [phone] Leukest Negative Normal [facility] Comment on above: Performed By: #### W SR, C3COMP, C4COMP, CRP, RF, SYPHGX, ENAID, DNA, SEPG, COMPD #### [place] [phone] [place] [address] Nitrite Ql (U) Negative Normal [facility] Comment on above: Performed By: #### W SR, C3COMP, C4COMP, CRP, RF, SYPHGX, ENAID, DNA, SEPG, COMPD #### [place] [phone] [place] [phone] pH (Bld) 7.0 Normal 4.5-8.0 [facility] Comment on above: Performed By: #### W SR, C3COMP, C4COMP, CRP, RF, SYPHGX, ENAID, DNA, SEPG, COMPD #### [place] [address] Protein mass conc (U) Negative Normal Negative [facility] Comment on above: Performed By: #### W SR, C3COMP, C4COMP, CRP, RF, SYPHGX, ENAID, DNA, SEPG, COMPD #### [place] [address] RBC #/vol (U) 0-3 Normal 0-3 [facility] Comment on above: Performed By: #### W SR, C3COMP, C4COMP, CRP, RF, SYPHGX, ENAID, DNA, SEPG, COMPD #### [place] [address] Specific Lebo, Ur 1.005 Normal 1.005-1.030 [facility] Comment on above: Performed By: #### W SR, C3COMP, C4COMP, CRP, RF, SYPHGX, ENAID, DNA, SEPG, COMPD #### [place] [address] Urine Olegario Comment SEE COMMENT Normal [facility] Comment on above: Result Comment: N/A Performed By: #### W SR, C3COMP, C4COMP, CRP, RF, SYPHGX, ENAID, DNA, SEPG, COMPD #### [place] [phone] [place] [address] Urobilinogen Qn (U) Normal Normal Normal [facility] Comment on above: Performed By: #### W SR, C3COMP, C4COMP, CRP, RF, SYPHGX, ENAID, DNA, SEPG, COMPD #### [place] [address] WBC #/vol (Bld) 0-5 Normal 0-5 [facility] Comment on above: Performed By: #### W SR, C3COMP, C4COMP, CRP, RF, SYPHGX, ENAID, DNA, SEPG, COMPD #### [facility] [address] [place], [place] [address] XR CHEST 2V FRONTAL/LATon XR CHEST 2V FRONTAL/LAT * * *Final Report* * * DATE OF EXAM: Jan 22 2019 11:21AM HMX 5291 - XR CHEST 2V FRONTAL/LAT / PROCEDURE REASON: multiple diagnoses * * * * Physician Interpretation * * * * RESULT: EXAMINATION: CHEST RADIOGRAPH (2 VIEW FRONTAL and LATERAL) CLINICAL HISTORY: BARTOLO positive Dermatitis MQ: XC2_5 Comparison: RESULT: Lines, tubes, and devices: None. Lungs and pleura: The lungs are expanded and clear. No infiltrate, venous congestion, pneumothorax or pleural effusion. Cardiomediastinal silhouette: Normal cardiomediastinal silhouette. Other: . IMPRESSION: No acute radiographic abnormality. Transcribed Using Voice Recognition Transcribe Date/Time: Jan 22 2019 11:27A Dictated by: DAMIEN KOEHLER MD This examination was interpreted and the report reviewed and electronically signed by: DAMIEN KOEHLER MD on Jan 22 2019 11:27AM EST [id number] Normal [facility] ED Provider Noteon 8 Protein mass conc Triage Chief Complaint:Abdominal PainHOPI:Bernadette Faust is a 23 y.o. female who presents to the emergencydepartment as a transfer [facility] for abdominal pain. She has beenexperiencing pain for the past day. She describes it as a sharp, stabbingsensation that waxes and wanes and it worse with movement. It is nonradiatingand she has never experienced similar pain before. She has had associated nauseaand 2 episodes of nonbloody emesis. She had a positive test 3 days agobut has not had an ultrasound or established control [facility] [employer] care. Her last menstrualperiod was in the beginning of July although she does not recall the exactdate. She denies trauma, fevers, dysuria, hematuria, diarrhea, constipation,melena, hematochezia, vaginal bleeding and vaginal discharge.ROS:At least 10 systems reviewed and otherwise acutely negative except as in theHOPI.Past Medical History:Diagnosis Date? ADHD (attention deficit hyperactivity disorder)? Anemia? Anxiety? Asthma? Bipolar 1 disorder (HCC)? Depression? Diabetes mellitus (HCC)? DM (diabetes mellitus screen)? Headache? PONV (postoperative nausea and vomiting) motion sickness? TIA (transient ischemic attack)Past Surgical History:Procedure Laterality Date? APPENDECTOMY? BREAST SURGERY ductectomy left breast? BREAST SURGERY left? DILATION AND CURETTAGE OF UTERUS? KNEE SURGERY? TONSILLECTOMY AND ADENOIDECTOMYFamily HistoryProblem Relation Age of Onset? No Known Problems Mother? Heart Disease Father? Stroke Father? Cancer Paternal Uncle ovarianSocial HistorySocial History? Marital status: Spouse name: N/A? Number of children: N/A? Years of education: N/AOccupational History? Not on file.Social History Main Topics? Smoking status: Never Smoker? Smokeless tobacco: Never Used? Alcohol use Yes Comment: rare? Drug use: No? Sexual activity: Not on fileOther Topics Concern? Not on fileSocial History Narrative? No narrative on fileNo current facility-administered medications for this encounter.Current Outpatient PrescriptionsMedication Sig Dispense Refill? acetaminophen (TYLENOL) 500 MG tablet Take 1 tablet by mouth 4 times daily asneeded for Pain 20 tablet 1? VENTOLIN HFA 108 (90 Base) MCG/ACT inhaler Inhale 2 puffs into the lungs every4 hours as needed for Wheezing 18 g 3? cyclobenzaprine (FLEXERIL) 10 MG tablet Take 10 mg by mouth 3 times daily asneeded for Muscle spasms? butalbital-acetaminophe n-caffeine (FIORICET, ESGIC) 50-325-40 MG per tabletTake 1 tablet by mouth every 4 hours as needed for Headaches or Migraine? gabapentin (NEURONTIN) 600 MG tablet Take 800 mg by mouth 3 times daily asneeded (migraines)..? norethindrone (LYZA) 0.35 MG tablet Take 1 tablet by mouth daily? mometasone (ASMANEX 30 METERED DOSES) 220 MCG/INH inhaler Inhale 1 puff intothe lungs daily 1 Inhaler 3? topiramate (TOPAMAX) 25 MG tablet TAKE 1 TABLET BY MOUTH TWICE DAILY FOR 1WEEK; THEN INCREASE TO 2 TABLETS TWICE DAILY 60 tablet 11? triamcinolone (NASACORT ALLERGY 24HR) 55 MCG/ACT nasal inhaler 2 sprays byNasal route daily 1 Inhaler 0? amphetamine-dextroamphe tamine (ADDERALL XR) 20 MG extended release capsuleTAKE ONE CAPSULE BY MOUTH EVERY MORNING 0? buPROPion (WELLBUTRIN XL) 150 MG extended release tablet Take 150 mg by mouth2 times daily? lamoTRIgine (LAMICTAL) 100 MG tablet Take 100 mg by mouth daily? ALPRAZolam (XANAX) 0.5 MG tablet Take 0.5 mg by mouth 5 times daily .? EPINEPHrine (EPIPEN) 0.3 MG/0.3ML SOAJ injection Inject 0.3 mLs into themuscle as needed? Multiple Vitamins-Minerals (THERAPEUTIC MULTIVITAMIN-MINERALS) tablet Take 1tablet by mouth daily? aspirin 81 MG tablet Take 81 mg by mouth dailyAllergiesAllergen Reactions? Latex Rash? Verapamil Anaphylaxis? Tape [Adhesive Tape] RashNursing Notes ReviewedPhysical Exam:ED Triage Vitals [09/11/18 0238]Enc Vitals Group BP 119/77 Pulse 81 Resp 18 Temp 98.2 ?F (36.8 ?C) Temp Source Oral SpO2 99 % Weight 140 lb (63.5 kg) Height 5' 5 (1.651 m) Head Circumference Peak Flow Pain Score Pain Loc Pain Edu? Excl. in GC?GENERAL APPEARANCE: Awake and alert, resting comfortably in bed at the time ofmy exam.HEENT: Head is normocephalic and grossly atraumatic. There is no conjunctivalpallor. Sclera are anicteric and noninjected. Mucous membranes of the mouth aremoist.NECK: Trachea is midline.LUNGS: Clear to auscultation bilaterally without wheezing or rales. Goodairflow.HEART: Regular rate and rhythm. S1-S2 noted. No murmurs auscultated.ABDOMEN: Abdomen was soft and nondistended. There was mild tenderness topalpation in the LLQ. There is no guarding or rebound. There is no mass. Thereis no CVA tenderness to palpation.MSK/EXTREMITI ES: No acute deformities. Normal strength bilaterally in upper andlower extremities. Peripheral pulses are present and symmetric bilaterally.There is no peripheral edema.SKIN: Warm and dry.NEUROLOGICAL: Patient is awake, alert and oriented with normal speech and normalhearing. Patient is responding and cooperating appropriately to exam. Face issymmetrical.PSYCHIATR IC: Normal mood and affect. Good judgement.I have reviewed and interpreted all of the currently available lab results fromthis visit (if applicable):Results for orders placed or performed during the hospital encounter of 09/11/18UrinalysisResul t Value Ref Range Appearance Clear Clear NA Color, UA Yellow Lt. Yellow NA Specific Lebo, Urine 1.015 1.005 - 1.030 NA pH, Urine 5.0 5.0 - 8.0 NA LEUKOCYTES, UA Trace Negative NA Nitrite, Urine NEG Negative NA Total Protein, Urine NEG Negative mg/dL Glucose, Ur NEG (Normal) Negative mg/dL Ketones, Urine Negative Negative mg/dL Urobilinogen, Urine Normal (0.2) 0 - 1 mg/dL Bilirubin, Urine Negative Negative NA Occult Blood,Urine Negative Negative [RBC]/uLHCG Urine Qual PregResult Value Ref Range HCG Urine Positive Negative NAUrinalysis with MicroscopicResult Value Ref Range Urine Volume 12 ml NA WBC, UA 0-2 0 - 5 /[HPF] RBC, UA Negative 0 - 2 /[HPF] Epithelial Cells 0-2 3 - 5 /[HPF] Bacteria, UA Few (1-5) Negative NAHCG, Quantitative, PregnancyResult Value Ref Range hCG Quant 332 (A) <3 m[IU]/mLRadiographs:Us Ob TransvaginalResult Date: 09/11/2018Patient Name: BERNADETTE FAUST nd--- Exam Date/Time 09/11/2018 05:35:00 EST ExamUS Transvaginal Ordering Physician [id number] CUNNINGHAM Accession Number [id number] Codes 55516 () Reason For Exam LLQ pain Report EXAM TYPE: US PregnancyTransvaginal EXAM DATE AND TIME: 09/11/2018 5:35 AM EST INDICATION: 23 yearsFemale with left lower quadrant pain. LMP is beginning of July. Beta-hCGlevel is 33 2 Letty. COMPARISON: None. TECHNIQUE: Ultrasonographic evaluation ofthe pelvis was performed including color flow and spectral Doppler imaging.FINDINGS: UTERUS: Uterus is retroverted and measures 9.8 x 7.7 x 4.7 cm. Theendometrial echo complex measures 1.1 cm in diameter. No intrauterinegestational sac or pole is visualized. Subchorionic hemorrhage: None.Cervix: 3.9cm in length and closed. ADNEXA / OVARIES: No adnexal mass seen.Right ovary: 3.8 x 2.6 x 2.9 cm. Normal in size. Normal Doppler flow. Leftovary: 4.8 x 2.7 x 1.9 cm Normal in size. Normal Doppler flow. FREE FLUID:None. IMPRESSION: of unknown location. No intrauterine gestationalsacidentifie d. Ectopic is not excluded. Follow-up beta-hCG level andpelvic ultrasound is suggested. Report Dictated on Workstation: [id number] ---Final --- Dictated: 09/11/2018 6:41 am Dictating Physician: PIPER FRAZIER DO, I Signed Date and Time: 09/11/2018 6:45 am Signed by: JANNA FRAZIER DO Transcribed Date and Time: 09/11/2018 6:41MDM:Based on the above history and physical exam, I am most concerned about ectopicpregnancy. Review of the labs obtained prior to transfer are within normallimits except for a positive test. Transvaginal ultrasound andquantitative hCG was ordered.HCG is low at 332.Ultrasound shows no evidence of intrauterine , free fluid or adnexalmass.On re-evaluation, the patient has remained stable and her pain is wellcontrolled. I have explained to her the above findings and that I maintain [facility] suspicion for ectopic . I explained to her the importance offollowing up with [facility] in 48 hours in order to have a repeatquantitative hCG drawn. She has expressed her understanding therefore she wasdischarged home in stable condition. The control clerk food and beverage service was contacted and madeaware of the patient and our findings. They are expecting to see her in clinicin 2 days.Clinical Impression:1. Acute abdominal pain in , concern for ectopic pregnancyComment: Please note this report has been produced using speech recognitionsoftware and may contain errors related to that system including errors ingrammar, punctuation, and spelling, as well as words and phrases that may beinappropriate. If there are any questions or concerns please feel free tocontact the dictating provider for clarification.Yue Ya MD09/11/181926 Normal [facility] HCG,Urine Qualon 09-11-2018 HCG.beta subunit ( test) Ql (U) Positive Normal Negative [facility] Comment on above: Result Comment: Preg subhash is the most common reason for HCG in urine, althoughchoriocarcinoma, hydatidiform mole, and certain nontropho-blastic malignancies also result in detectable urinary HCGlevels. Sensitivity = 20mIU/mL. Performed By: #### H MARVEL, [facility] ####The performing lab is in the report. US Transvaginalon 09-11-2018 US Transvaginal Patient Name: BERNADETTE FAUST Ultrasound Exam Date/Time 09/11/2018 05:35:00 EST Exam US Transvaginal Ordering Physician [id number] CUNNINGHAM Accession Number [id number] CPT4 Codes 49901 () Reason For Exam LLQ pain Report [...] gestational sac identified. Ectopic is not excluded. Follow-up beta-hCG level and pelvic ultrasound is suggested. Report Dictated on Workstation: [id number] Final Dictated: 09/11/2018 6:41 am Dictating Physician: PIPER FRAZIER DO, I Signed Date and Time: 09/11/2018 6:45 am Signed by: PIPER FRAZIER DO, I Transcribed Date and Time: 09/11/2018 6:41 Normal [facility] Urinalysis,Macroon 8 Appearance Clear Normal Clear [facility] Comment on above: Performed By: #### H EMDF, BMP3 ####The performing lab is in the report. Bilirubin,Ur Negative Normal Negative [facility] Comment on above: Performed By: #### H EMDF, BMP3 ####The performing lab is in the report. Color Yellow Normal Lt. Yellow [facility] Comment on above: Performed By: #### H EMDF, BMP3 ####The performing lab is in the report. Glucose Ql (U) NEG (Normal) Normal Negative [facility] Comment on above: Performed By: #### H EMDF, BMP3 ####The performing lab is in the report. Ketone,Urine Negative Normal Negative [facility] Comment on above: Performed By: #### H EMDF, BMP3 ####The performing lab is in the report. Leukocytes Trace Normal Negative [facility] Comment on above: Performed By: #### H EMDF, BMP3 ####The performing lab is in the report. Nitrites Negative Normal Negative [facility] Comment on above: Performed By: #### H EMDF, BMP3 ####The performing lab is in the report. Occult Blood,Ur Negative Normal Negative [facility] Comment on above: Performed By: #### H EMDF, BMP3 ####The performing lab is in the report. pH Test strip (U) 5.0 Normal 5.0-8.0 [facility] Comment on above: Performed By: #### H EMDF, BMP3 ####The performing lab is in the report. Specific Lebo,Urine 1.015 Normal 1.005-1.030 [facility] Comment on above: Performed By: #### H EMDF, BMP3 ####The performing lab is in the report. Total Protein,Urine Negative Normal Negative [facility] Comment on above: Performed By: #### H EMDF, BMP3 ####The performing lab is in the report. Urobilinogen Normal (0.2) Normal 0-1 [facility] Comment on above: Performed By: #### H EMDF, BMP3 ####The performing lab is in the report. Urinalysis,Microscopicon Bacteria Few (1-5) Normal Negative [facility] Comment on above: Performed By: #### H EMDF, BMP3 ####The performing lab is in the report. Epithelial Cells 0 - 2 Normal 3-5 [facility] Comment on above: Performed By: #### H EMDF, BMP3 ####The performing lab is in the report. RBC LM.HPF #/area (Urine sed) Negative Normal 0-2 [facility] Comment on above: Performed By: #### H EMDF, BMP3 ####The performing lab is in the report. Volume,Urine 12 ml Normal [facility] Comment on above: Performed By: #### H EMDF, BMP3 ####The performing lab is in the report. WBC LM.HPF #/area (Urine sed) 0 - 2 Normal 0-5 [facility] Comment on above: Performed By: #### H EMDF, BMP3 ####The performing lab is in the report. hCG Quantitativeon 8 hCG Quantitative 332 m[IU]/mL Abnormal < 3 [facility] Comment on above: Performed By: #### H EMDF, BMP3 ####The performing lab is in the report. HCG,Urine Qualon 07-27-2018 HCG.beta subunit ( test) Ql (U) Negative Normal Negative [facility] Comment on above: Result Comment: Preg subhash is the most common reason for HCG in urine, althoughchoriocarcinoma, hydatidiform mole, and certain nontropho-blastic malignancies also result in detectable urinary HCGlevels. Sensitivity = 20mIU/mL. Performed By: #### H EMDF, BMP3 ####The performing lab is in the report. hCG Qual [place] 07-27-2018 hCG Qual Preg Negative Normal [facility] Comment on above: Result Comment: REF RANGE:Negative .... < 3Questionable Rpt 48-72 HrPositive ..... > 10 Performed By: #### H EMDF, BMP3 ####The performing lab is in the report. Basic Metabolic Panelon 06 Anion gap 3 molar conc 7 Normal [facility] Comment on above: Performed By: #### H EMDF, TROPN, BMP3, DDI2, BNP3 ####[address] [address] Calcium mass conc 9.4 mg/dL Normal 8.2-10.1 [facility] Comment on above: Performed By: #### H EMDF, TROPN, BMP3, DDI2, BNP3 ####[address] [address] Chloride molar conc 103 mmol/L Normal 98-109 [facility] Comment on above: Performed By: #### H EMDF, TROPN, BMP3, DDI2, BNP3 ####[address] [address] CO2 molar conc 24 mmol/L Normal 21-32 [facility] Comment on above: Performed By: #### H EMDF, TROPN, BMP3, DDI2, BNP3 ####[address] [address] Creatinine mass conc 0.97 mg/dL Normal 0.55-1.40 [facility] Comment on above: Performed By: #### H EMDF, TROPN, BMP3, DDI2, BNP3 ####[address] [address] GFR/1.73 sq M predicted among blacks MDRD vol rate/area (S/P/Bld) mL/min/{1.73_m2} Normal >60 [facility] Comment on above: Performed By: #### H EMDF, TROPN, BMP3, DDI2, BNP3 ####[address] [address] GFR/1.73 sq M predicted among non-blacks MDRD vol rate/area (S/P/Bld) mL/min/{1.73_m2} Normal >60 [facility] Comment on above: Result Comment: Sour ce- MDRD equation with creatinine calibration to IDMS(NKDEP) eGFR not recommended for drug dose adjustment Performed By: #### H EMDF, TROPN, BMP3, DDI2, BNP3 ####[address] [address] Glucose mass conc 104 mg/dL High 70-100 [facility] Comment on above: Result Comment: . Performed By: #### H EMDF, TROPN, BMP3, DDI2, BNP3 ####[address] [address] Potassium molar conc 3.5 mmol/L Normal 3.5-5.1 [facility] Comment on above: Performed By: #### H EMDF, TROPN, BMP3, DDI2, BNP3 ####[address] [address] Sodium molar conc 134 mmol/L Low 135-145 [facility] Comment on above: Performed By: #### H EMDF, TROPN, BMP3, DDI2, BNP3 ####[address] [address] Urea nitrogen mass conc 9 mg/dL Normal 7-25 [facility] Comment on above: Performed By: #### H EMDF, TROPN, BMP3, DDI2, BNP3 ####[address] [address] CR Chest PA/LATon 03-31-2018 CR Chest PA/LAT Patient Name: BERNADETTE GODINEZ Diagnostic Radiology Exam Date/Time 03/31/2018 15:58:01 EDT Exam CR Chest PA/LAT Ordering Physician MD CONNIE, ZHAO Accession Number [id number] CPT4 Codes 46183 () Reason For Exam shortness of breath [...] B Transcribed Date and Time: 03/31/2018 4:00 Normal [facility] D-Dimer, Innovanceon 018 D-Dimer, Innovance < 0.19 Normal 0.00-0.50 [facility] Comment on above: Result Comment: Inno amin D-Dimer values of <0.50 mg/L FEU can be used incombination with a pre-test probability model (e.g. Well's)to exclude pulmonary embolism (PE) disease, as well as ciro in the diagnosis of deep vein thrombosis (DVT). Performed By: #### H EMDF, TROPN, BMP3, DDI2, BNP3 ####[facility] [place] [address] Drugs of Abuseon 03-31-2018 Amphetamine, Ur Positive Normal [facility] Comment on above: Performed By: #### H EMDF, BMP3 ####The performing lab is in the report. Barbiturates, Ur Positive Normal [facility] Comment on above: Performed By: #### H EMDF, BMP3 ####The performing lab is in the report. Benzodiazepines, Ur Negative Normal [facility] Comment on above: Performed By: #### H EMDF, BMP3 ####The performing lab is in the report. Cocaine, Ur Negative Normal [facility] Comment on above: Performed By: #### H EMDF, BMP3 ####The performing lab is in the report. Methadone, Ur Negative Normal [facility] Comment on above: Performed By: #### H EMDF, BMP3 ####The performing lab is in the report. Opiates, Ur Negative Normal [facility] Comment on above: Performed By: #### H WENDY AIKEN3 ####The performing lab is in the report. Oxycodone/Oxymorphone, Ur Negative Normal [facility] Comment on above: Performed By: #### H WENDY AIKEN3 ####The performing lab is in the report. Phencyclidine (PCP), Ur Negative Normal [facility] Comment on above: Result Comment: The expected value for all of the drugs listedabove is Negative.The following drugs or drug groups have been screenedfor by Immunoassay at the following thresholds:Amphetamine class (1000 ng/mL), Barbiturates (200 ng/mL),Benzodiazepines (200 ng/mL), Cocaine (300 ng/mL),Methadone (300 ng/mL), Opiates (300 ng/mL),Oxycodone (100 ng/mL), and PCP (25 ng/mL).NOTE: These results are for medical treatment only.Analysis performed using non-forensic procedures. Performed By: #### H WENDY AIKEN3 ####The performing lab is in the report. Hemogram w/ Autodiffon 03-31 Abs Baso Cnt 0.0 10*3/uL Normal 0.0-0.2 [facility] Comment on above: Performed By: #### H EMDFKONRADN, BMP3, DDI2, BNP3 ####[place] [id number] [place] [address] Abs Neutrophile Cnt 4.0 10*3/uL Normal 1.8-7.0 [facility] Comment on above: Performed By: #### H EMDF TROPN, BMP3, DDI2, BNP3 ####[facility] [place] [address] Basophils/100 WBC Auto (Bld) 0.5 % Normal 0.0-2.0 [facility] Comment on above: Performed By: #### H EMDF, TROPN, BMP3, DDI2, BNP3 ####[place] [id number] [place] [address] Eosinophils Auto #/vol (Bld) 0.0 10*3/uL Normal 0.0-0.5 [facility] Comment on above: Performed By: #### H EMDF, TROPN, BMP3, DDI2, BNP3 ####[address] [address] Eosinophils/100 WBC Auto (Bld) 0.4 % Low 1.0-6.0 [facility] Comment on above: Performed By: #### H EMDF, TROPN, BMP3, DDI2, BNP3 ####[address] [address] Erythrocyte distribution width Auto Ratio (RBC) 12.5 % Normal 11.5-14.5 [facility] Comment on above: Performed By: #### H EMDF, TROPN, BMP3, DDI2, BNP3 ####[address] [address] Granulocytes/100 WBC (Bld) 57.4 % Normal 40.0-80.0 [facility] Comment on above: Performed By: #### H EMDF, TROPN, BMP3, DDI2, BNP3 ####[address] [address] Hematocrit Auto Volume Fraction (Bld) 39.5 % Normal 35.0-47.0 [facility] Comment on above: Performed By: #### H EMDF, TROPN, BMP3, DDI2, BNP3 ####[address] [address] Hemoglobin mass conc (Bld) 13.2 g/dL Normal 11.7-16.0 [facility] Comment on above: Performed By: #### H EMDF, TROPN, BMP3, DDI2, BNP3 ####[address] [address] Lymphocytes Auto #/vol (Bld) 2.4 10*3/uL Normal 1.0-4.3 [facility] Comment on above: Performed By: #### H EMDF, TROPN, BMP3, DDI2, BNP3 ####[address] [address] [address] Lymphocytes/100 WBC Auto (Bld) 34.6 % Normal 20.0-40.0 [facility] Comment on above: Performed By: #### H EMDF, TROPN, BMP3, DDI2, BNP3 ####[address] [address] MCH Auto Entitic mass (RBC) 28.8 pg Normal 26.0-34.0 [facility] Comment on above: Performed By: #### H EMDF, TROPN, BMP3, DDI2, BNP3 ####[address] [address] MCHC Auto mass conc (RBC) 33.4 % Normal 32.0-36.0 [facility] Comment on above: Performed By: #### H EMDF, TROPN, BMP3, DDI2, BNP3 ####[address] [address] MCV Auto Entitic volume (RBC) 86.2 fL Normal 79.0-98.0 [facility] Comment on above: Performed By: #### H EMDF, TROPN, BMP3, DDI2, BNP3 ####[address] [address] Monocytes Auto #/vol (Bld) 0.5 10*3/uL Normal 0.0-0.8 [facility] Comment on above: Performed By: #### H EMDF, TROPN, BMP3, DDI2, BNP3 ####[address] [address] Monocytes/100 WBC Auto (Bld) 7.1 % Normal 2.0-10.0 [facility] Comment on above: Performed By: #### H EMDF, TROPN, BMP3, DDI2, BNP3 ####[address] [address] Platelet mean volume Auto Entitic volume (Bld) 8.1 fL Normal 7.4-10.4 [facility] Comment on above: Performed By: #### H EMDF, TROPN, BMP3, DDI2, BNP3 ####[address] [address] Platelets Auto #/vol (Bld) 214 10*3/uL Normal 140-440 [facility] Comment on above: Performed By: #### H EMDF, TROPN, BMP3, DDI2, BNP3 ####[id number] [place] [address] RBC Auto #/vol (Bld) 4.59 10*6/uL Normal 3.80-5.20 [facility] Comment on above: Performed By: #### H EMDF, TROPN, BMP3, DDI2, BNP3 ####[address] [address] WBC Auto #/vol (Bld) 6.9 10*3/uL Normal 3.6-10.7 [facility] Comment on above: Performed By: #### H EMDF, TROPN, BMP3, DDI2, BNP3 ####[address] [address] NT pro BNPon 03-31-2018 Natriuretic peptide B mass conc (Bld) 44 pg/mL Normal 0-125 [facility] Comment on above: Performed By: #### H EMDF, BMP3 ####The performing lab is in the report. Troponin Ion 03-31-2018 Troponin I.cardiac mass conc ng/mL Normal 0.000-0.045 [facility] Comment on above: Result Comment: 0.04 6 - 0.400 = Indeterminate> 0.400 = Consider Myocardial Injury Performed By: #### H EMDF, TROPN, BMP3, DDI2, BNP3 ####[address] [address] Urinalysis,Macroon 8 Appearance Clear Normal Clear [facility] Comment on above: Performed By: #### H EMDF, BMP3 ####The performing lab is in the report. Bilirubin,Ur Negative Normal Negative [facility] Comment on above: Performed By: #### H EMDF, BMP3 ####The performing lab is in the report. Color Yellow Normal Lt. Yellow [facility] Comment on above: Performed By: #### H EMDF, BMP3 ####The performing lab is in the report. Glucose Ql (U) NEG (Normal) Normal Negative [facility] Comment on above: Performed By: #### H EMDF, BMP3 ####The performing lab is in the report. Ketone,Urine Negative Normal Negative [facility] Comment on above: Performed By: #### H EMDF, BMP3 ####The performing lab is in the report. Leukocytes 1 + Normal Negative [facility] Comment on above: Performed By: #### H EMDF, BMP3 ####The performing lab is in the report. Nitrites Negative Normal Negative [facility] Comment on above: Performed By: #### H EMDF, BMP3 ####The performing lab is in the report. Occult Blood,Ur Negative Normal Negative [facility] Comment on above: Performed By: #### H EMDF, BMP3 ####The performing lab is in the report. pH Test strip (U) 7.0 Normal 5.0-8.0 [facility] Comment on above: Performed By: #### H EMDF, BMP3 ####The performing lab is in the report. Specific Lebo,Urine 1.010 Normal 1.005-1.030 [facility] Comment on above: Performed By: #### H EMDF, BMP3 ####The performing lab is in the report. Total Protein,Urine Negative Normal Negative [facility] Comment on above: Performed By: #### H EMDF, BMP3 ####The performing lab is in the report. Urobilinogen Normal (0.2) Normal 0-1 [facility] Comment on above: Performed By: #### H EMDF, BMP3 ####The performing lab is in the report. Urinalysis,Microscopicon Bacteria Many (51-100) Normal Negative [facility] Comment on above: Performed By: #### H EMDF, BMP3 ####The performing lab is in the report. Epithelial Cells 11 - 25 Normal 3-5 [facility] Comment on above: Performed By: #### H EMDF, BMP3 ####The performing lab is in the report. RBC LM.HPF #/area (Urine sed) Negative Normal 0-2 [facility] Comment on above: Performed By: #### H EMDF, BMP3 ####The performing lab is in the report. WBC LM.HPF #/area (Urine sed) 0 - 2 Normal 0-5 [facility] Comment on above: Performed By: #### H EMDF, BMP3 ####The performing lab is in the report. Basic Metabolic Panelon 04-0 Anion gap 3 molar conc 10 mmol/L Normal [facility] Comment on above: Performed By: #### H EMDF, BMP3 ####The performing lab is in the report. Calcium mass conc 9.4 mg/dL Normal 8.2-10.1 [facility] Comment on above: Performed By: #### H EMDF, BMP3 ####The performing lab is in the report. Chloride molar conc 100 mmol/L Normal 98-109 [facility] Comment on above: Performed By: #### H EMDF, BMP3 ####The performing lab is in the report. CO2 molar conc 28 mmol/L Normal 21-32 [facility] Comment on above: Performed By: #### H MARVELF, BMP3 ####The performing lab is in the report. Creatinine mass conc 0.81 mg/dL Normal 0.55-1.40 [facility] Comment on above: Performed By: #### H MARVELF, BMP3 ####The performing lab is in the report. GFR/1.73 sq M predicted among blacks MDRD vol rate/area (S/P/Bld) mL/min/{1.73_m2} Normal >60 [facility] Comment on above: Performed By: #### H EMDF, BMP3 ####The performing lab is in the report. GFR/1.73 sq M predicted among non-blacks MDRD vol rate/area (S/P/Bld) mL/min/{1.73_m2} Normal >60 [facility] Comment on above: Result Comment: Sour ce- MDRD equation with creatinine calibration to IDMS(NKDEP)eGFR not recommended for drug dose adjustment Performed By: #### H EMDF, BMP3 ####The performing lab is in the report. Glucose mass conc 119 mg/dL High 70-100 [facility] Comment on above: Result Comment: . Performed By: #### H EMDF, BMP3 ####The performing lab is in the report. Potassium molar conc 3.9 mmol/L Normal 3.5-5.1 [facility] Comment on above: Performed By: #### H MARVELF, BMP3 ####The performing lab is in the report. Sodium molar conc 138 mmol/L Normal 135-145 [facility] Comment on above: Performed By: #### H EMDF, BMP3 ####The performing lab is in the report. Urea nitrogen mass conc 8 mg/dL Normal 7-25 [facility] Comment on above: Performed By: #### H EMDF, BMP3 ####The performing lab is in the report. HCG,Urine Qualon 02-02-2018 HCG.beta subunit ( test) Ql (U) Negative Normal Negative [facility] Comment on above: Result Comment: Preg subhash is the most common reason for HCG in urine, althoughchoriocarcinoma, hydatidiform mole, and certain nontropho-blastic malignancies also result in detectable urinary HCGlevels. Sensitivity = 20mIU/mL. Performed By: #### H CGUR, UAMAC ####The performing lab is in the report. Hemogram w/ Autodiffon 02-02 Abs Baso Cnt 0.4 10*3/uL High 0.0-0.2 [facility] Comment on above: Performed By: #### H MARVELF, BMP3 ####The performing lab is in the report. Abs Neutrophile Cnt 9.1 10*3/uL High 1.8-7.0 [facility] Comment on above: Performed By: #### H EMDF, BMP3 ####The performing lab is in the report. Basophils/100 WBC Auto (Bld) 2.6 % High 0.0-2.0 [facility] Comment on above: Performed By: #### H EMDF, BMP3 ####The performing lab is in the report. Eosinophils Auto #/vol (Bld) 0.1 10*3/uL Normal 0.0-0.5 [facility] Comment on above: Performed By: #### H EMDF, BMP3 ####The performing lab is in the report. Eosinophils/100 WBC Auto (Bld) 0.5 % Low 1.0-6.0 [facility] Comment on above: Performed By: #### H EMDF, BMP3 ####The performing lab is in the report. Erythrocyte distribution width Auto Ratio (RBC) 11.8 % Normal 11.5-14.5 [facility] Comment on above: Performed By: #### H EMDF, BMP3 ####The performing lab is in the report. Granulocytes/100 WBC (Bld) 63.9 % Normal 40.0-80.0 [facility] Comment on above: Performed By: #### H EMDF, BMP3 ####The performing lab is in the report. Hematocrit Auto Volume Fraction (Bld) 42.2 % Normal 35.0-47.0 [facility] Comment on above: Performed By: #### H EMDF, BMP3 ####The performing lab is in the report. Hemoglobin mass conc (Bld) 13.8 g/dL Normal 11.7-16.0 [facility] Comment on above: Performed By: #### H EMDF, BMP3 ####The performing lab is in the report. Lymphocytes Auto #/vol (Bld) 3.9 10*3/uL Normal 1.0-4.3 [facility] Comment on above: Performed By: #### H EMDF, BMP3 ####The performing lab is in the report. Lymphocytes/100 WBC Auto (Bld) 27.1 % Normal 20.0-40.0 [facility] Comment on above: Performed By: #### H EMDF, BMP3 ####The performing lab is in the report. MCH Auto Entitic mass (RBC) 27.6 pg Normal 26.0-34.0 [facility] Comment on above: Performed By: #### H EMDF, BMP3 ####The performing lab is in the report. MCHC Auto mass conc (RBC) 32.8 % Normal 32.0-36.0 [facility] Comment on above: Performed By: #### H EMDF, BMP3 ####The performing lab is in the report. MCV Auto Entitic volume (RBC) 84.3 fL Normal 79.0-98.0 [facility] Comment on above: Performed By: #### H MARVELF, BMP3 ####The performing lab is in the report. Monocytes Auto #/vol (Bld) 0.9 10*3/uL High 0.0-0.8 [facility] Comment on above: Performed By: #### H MARVELF, BMP3 ####The performing lab is in the report. Monocytes/100 WBC Auto (Bld) 5.9 % Normal 2.0-10.0 [facility] Comment on above: Performed By: #### H EMDF, BMP3 ####The performing lab is in the report. Platelet mean volume Auto Entitic volume (Bld) 7.3 fL Low 7.4-10.4 [facility] Comment on above: Performed By: #### H MARVELF, BMP3 ####The performing lab is in the report. Platelets Auto #/vol (Bld) 224 10*3/uL Normal 140-440 [facility] Comment on above: Performed By: #### H ATTILA, BMP3 ####The performing lab is in the report. RBC Auto #/vol (Bld) 5.01 10*6/uL Normal 3.80-5.20 [facility] Comment on above: Performed By: #### H ATTILA, BMP3 ####The performing lab is in the report. WBC Auto #/vol (Bld) 14.4 10*3/uL High 3.6-10.7 [facility] Comment on above: Performed By: #### H ATTILA, BMP3 ####The performing lab is in the report. Urinalysis,Macroon 8 Appearance Clear Normal Clear [facility] Comment on above: Performed By: #### H CGOSBALDO, UAMAC ####The performing lab is in the report. Bilirubin,Ur Negative Normal Negative [facility] Comment on above: Performed By: #### H CGOSBALDO, UAMAC ####The performing lab is in the report. Color Yellow Normal Lt. Yellow [facility] Comment on above: Performed By: #### H CGOSBALDO, UAMAC ####The performing lab is in the report. Glucose Ql (U) NEG (Normal) Normal Negative [facility] Comment on above: Performed By: #### H CGUR, UAMAC ####The performing lab is in the report. Ketone,Urine Negative Normal Negative [facility] Comment on above: Performed By: #### H CGUR, UAMAC ####The performing lab is in the report. Leukocytes Trace Normal Negative [facility] Comment on above: Performed By: #### H CGUR, UAMAC ####The performing lab is in the report. Nitrites Negative Normal Negative [facility] Comment on above: Performed By: #### H CGUR, UAMAC ####The performing lab is in the report. Occult Blood,Ur Negative Normal Negative [facility] Comment on above: Performed By: #### H CGUR, UAMAC ####The performing lab is in the report. pH Test strip (U) 6.5 [pH] Normal 5.0-8.0 [facility] Comment on above: Performed By: #### H CGUR, UAMAC ####The performing lab is in the report. Specific Lebo,Urine 1.010 Normal 1.005-1.030 [facility] Comment on above: Performed By: #### H CGUR, UAMAC ####The performing lab is in the report. Total Protein,Urine Negative Normal Negative [facility] Comment on above: Performed By: #### H CGUR, UAMAC ####The performing lab is in the report. Urobilinogen Normal (0.2) Normal 0-1 [facility] Comment on above: Performed By: #### H CGUR, UAMAC ####The performing lab is in the report. CR Hand Complete 3+ Views Norma [email or web address] 12-23-2017 CR Hand Complete 3+ Views Right Patient Name: BERNADETTE CHAO Diagnostic Radiology Exam Date/Time 12/23/2017 06:06:35 EST Exam CR Hand Complete 3+ Views Right Ordering Physician MD JUAREZ, TONY Accession Number [id number] CPT4 Codes 64669 () Reason For Exam right fingers injury [...] RUSSELL Transcribed Date and Time: 12/23/2017 6:12 Normal [facility] Vital Signs Date Time Vital Sign Value Performing Clinician Facility 06-13-2025 10:34-0400 Body height 165.[address] Becky Sotelo MD Work Phone: 8(832)090-207330 [place] [address] 06-13-2025 10:34-0400 Body mass index (BMI) [Ratio] 32.1 kg/m2 Dr. Becky Sotelo MD Work Phone: 2(007)006-707030 [place] [address] 06-13-2025 10:34-0400 Body temperature 97.2 [degF] Dr. Becky Sotelo MD Work Phone: [facility] 06-13-2025 10:34-0400 Body weight 87.[address] Becky Sotelo MD Work Phone: 1(485)920-244230 [place] [address] 06-13-2025 10:34-0400 Diastolic blood pressure 66 mm[Hg] Dr. Becky Sotelo MD Work Phone: 5(220)015-452530 [place] [address] 06-13-2025 10:34-0400 Heart rate 82 /min Dr. Becky Sotelo MD Work Phone: 3(056)703-302330 [place] [address] 06-13-2025 10:34-0400 Respiratory rate 16 /min Dr. Becky Sotelo MD Work Phone: 2(477)194-099830 [place] [address] 06-13-2025 10:34-0400 SaO2% (BldA) [Mass fraction] 96 % Dr. Becky Sotelo MD Work Phone: 0(903)114-241978 [place] [address] 06-13-2025 10:34-0400 Systolic blood pressure 116 mm[Hg] Dr. Becky Sotelo MD Work Phone: 6(426)956-709178 [place] [address] 06-13-2025 10:26-0400 Body mass index (BMI) [Ratio] 32.5 kg/m2 Dr. Becky Sotelo MD Work Phone: 1(513)309-636478 [place] [address] 06-13-2025 10:26-0400 Body weight 88.[address] Becky Sotelo MD Work Phone: 7(396)091-881078 [place] [address] 06-13-2025 10:26-0400 Diastolic blood pressure 78 mm[Hg] Dr. Becky Sotelo MD Work Phone: 1(585)119-473878 [place] [address] 06-13-2025 10:26-0400 Systolic blood pressure 128 mm[Hg] Dr. Becky Sotelo MD Work Phone: 1(332)633-896278 [place] [address] 04-23-2025 09:49-0400 Body height 165.[address] Becky Sotelo MD Work Phone: 4(934)870-799878 [place] [address] 04-23-2025 09:49-0400 Body mass index (BMI) [Ratio] 33.5 kg/m2 Dr. Becky Sotelo MD Work Phone: 9(308)497-866478 [place] [address] 04-23-2025 09:49-0400 Body temperature 98.5 [degF] Dr. Becky Sotelo MD Work Phone: 1(805)154-847678 [place] [address] 04-23-2025 09:49-0400 Body weight 91.[address] Becky Sotelo MD Work Phone: 5(535)397-440978 [place] [address] 04-23-2025 09:49-0400 Diastolic blood pressure 80 mm[Hg] Dr. Becky Sotelo MD Work Phone: 8(400)366-965878 [place] [address] 04-23-2025 09:49-0400 Heart rate 81 /min Dr. Becky Sotelo MD Work Phone: 6(176)349-057378 [place] [address] 04-23-2025 09:49-0400 Respiratory rate 18 /min Dr. Becky Sotelo MD Work Phone: 1(820)931-046478 [place] [address] 04-23-2025 09:49-0400 SaO2% (BldA) [Mass fraction] 96 % Dr. Becky Sotelo MD Work Phone: 7(750)179-579978 [place] [address] 04-23-2025 09:49-0400 Systolic blood pressure 142 mm[Hg] Dr. Becky Sotleo MD Work Phone: 3(792)688-109278 [place] [address] 03-31-2025 13:38-0400 Body height 165.[address] Becky Sotelo MD Work Phone: 0(461)307-192078 [place] [address] 03-31-2025 13:38-0400 Body mass index (BMI) [Ratio] 31.8 kg/m2 Dr. Becky Sotelo MD Work Phone: 3(266)375-785278 [place] [address] 03-31-2025 13:38-0400 Body weight 86.[address] Becky Sotelo MD Work Phone: 9(978)508-455078 [place] [address] 03-31-2025 13:38-0400 Diastolic blood pressure 77 mm[Hg] Dr. Becky Sotelo MD Work Phone: 2(360)765-227578 [place] [address] 03-31-2025 13:38-0400 Systolic blood pressure 115 mm[Hg] Dr. Becky Sotelo MD Work Phone: 9(615)223-204178 [place] [address] 03-28-2025 08:26-0400 Body height 165.[address] Becky Sotelo MD Work Phone: 1(209)000-657778 [place] [address] 03-28-2025 08:26-0400 Body mass index (BMI) [Ratio] 32.1 kg/m2 Dr. Becky Sotelo MD Work Phone: 1(621)035-952978 [place] [address] 03-28-2025 08:26-0400 Body temperature 97.1 [degF] Dr. Becky Sotelo MD Work Phone: 3(016)206-034678 [place] [address] 03-28-2025 08:26-0400 Body weight 87.[address] Becky Sotelo MD Work Phone: 3(792)279-543978 [place] [address] 03-28-2025 08:26-0400 Diastolic blood pressure 72 mm[Hg] Dr. Becky Sotelo MD Work Phone: 4(205)485-841278 [place] [address] 03-28-2025 08:26-0400 Heart rate 76 /min Dr. Becky Sotelo MD Work Phone: 5(850)169-518378 [place] [address] 03-28-2025 08:26-0400 Respiratory rate 16 /min Dr. Becky Sotelo MD Work Phone: 8(482)317-195978 [place] [address] 03-28-2025 08:26-0400 SaO2% (BldA) [Mass fraction] 97 % Dr. Becky Sotelo MD Work Phone: 5(438)898-722478 [place] [address] 03-28-2025 08:26-0400 Systolic blood pressure 112 mm[Hg] Dr. Becky Sotelo MD Work Phone: 9(693)038-417878 [place] [address] 03-07-2025 08:45-0400 Body mass index (BMI) [Ratio] 31.2 kg/m2 Dr. Becky Sotelo MD Work Phone: 2(473)417-495878 [place] [address] 03-07-2025 08:45-0400 Body temperature 97.2 [degF] Dr. Becky Sotelo MD Work Phone: 0(757)391-083178 [place] [address] 03-07-2025 08:45-0400 Body weight 85.[address] Becky Sotelo MD Work Phone: 6(803)903-530478 [place] [address] 03-07-2025 08:45-0400 Diastolic blood pressure 80 mm[Hg] Dr. Becky Sotelo MD Work Phone: 7(930)031-487478 [place] [address] 03-07-2025 08:45-0400 Heart rate 84 /min Dr. Becky Sotelo MD Work Phone: 9(737)496-601178 [place] [address] 03-07-2025 08:45-0400 Respiratory rate 16 /min Dr. Becky Sotelo MD Work Phone: 8(676)580-353478 [place] [address] 03-07-2025 08:45-0400 SaO2% (BldA) [Mass fraction] 98 % Dr. Becky Sotelo MD Work Phone: 8(314)063-139178 [place] [address] 03-07-2025 08:45-0400 Systolic blood pressure 110 mm[Hg] Dr. Becky Sotelo MD Work Phone: 9(871)127-355678 [place] [address] 02-28-2025 17:12-0400 Body temperature 98 [degF] Dr. Becky Sotelo MD Work Phone: 5(337)719-853978 [place] [address] 02-28-2025 17:12-0400 Diastolic blood pressure 70 mm[Hg] Dr. Becky Sotelo MD Work Phone: 4(728)733-175678 [place] [address] 02-28-2025 17:12-0400 Heart rate 68 /min Dr. Becky Sotelo MD Work Phone: 0(903)217-640678 [place] [address] 02-28-2025 17:12-0400 Respiratory rate 12 /min Dr. Becky Sotelo MD Work Phone: 6(675)047-467478 [place] [address] 02-28-2025 17:12-0400 SaO2% (BldA) [Mass fraction] 100 % Dr. Becky Sotelo MD Work Phone: 5(656)517-106878 [place] [address] 02-28-2025 17:12-0400 Systolic blood pressure 108 mm[Hg] Dr. Becky Sotelo MD Work Phone: 8(217)710-872978 [place] [address] 02-28-2025 15:20-0400 Body mass index (BMI) [Ratio] 30.3 kg/m2 Dr. Becky Sotelo MD Work Phone: 6(632)238-608078 [place] [address] 02-28-2025 15:20-0400 Body weight 82.[address] Becky Sotelo MD Work Phone: 1(418)435-786578 [place] [address] 02-25-2025 08:36-0400 Body mass index (BMI) [Ratio] 30.2 kg/m2 Dr. Becky Sotelo MD Work Phone: 3(862)858-949078 [place] [address] 02-25-2025 08:36-0400 Body weight 82.[address] Becky Sotelo MD Work Phone: 9(976)439-192778 [place] [address] 02-25-2025 08:36-0400 Diastolic blood pressure 83 mm[Hg] Dr. Becky Sotelo MD Work Phone: [facility] 02-25-2025 08:36-0400 Systolic blood pressure 134 mm[Hg] Dr. Becky Sotelo MD Work Phone: [facility] 12-25-2024 09:17-0500 Body temperature 97.7 [degF] [facility] 12-25-2024 09:17-0500 Diastolic blood pressure 96 mm[Hg] [facility] 12-25-2024 09:17-0500 Heart rate 101 /min [facility] 12-25-2024 09:17-0500 Respiratory rate 16 /min [facility] 12-25-2024 09:17-0500 Systolic blood pressure 154 mm[Hg] Acute Resident [facility] 11-27-2024 18:00-0500 Diastolic blood pressure 84 mm[Hg] Junior Garcia MD Work Phone: [facility] 11-27-2024 18:00-0500 Heart rate 80 /min Junior Garcia MD Work Phone: [facility] 11-27-2024 18:00-0500 Respiratory rate 18 /min Junior Garcia MD Work Phone: [facility] 11-27-2024 18:00-0500 SaO2% (BldA) [Mass fraction] 99 % Junior Garcia MD Work Phone: [facility] 11-27-2024 18:00-0500 Systolic blood pressure 126 mm[Hg] Junior Garcia MD Work Phone: [facility] 11-27-2024 11:20-0500 Body temperature 98.01 [degF] Junior Garcia MD Work Phone: [facility] 11-27-2024 10:14-0500 Body temperature 98.29 [degF] Nedra Hurtado MD Work Phone: [facility] 11-27-2024 10:14-0500 Diastolic blood pressure 72 mm[Hg] Nedra Hurtado MD Work Phone: [facility] 11-27-2024 10:14-0500 Heart rate 87 /min [facility] 11-27-2024 10:14-0500 Respiratory rate 16 /min Nedra Hurtado MD Work Phone: [facility] 11-27-2024 10:14-0500 Systolic blood pressure 125 mm[Hg] Nedra Hurtado MD Work Phone: [facility] 11-19-2024 09:14-0500 Body temperature 98.2 [degF] Adelfo Nice MD Work Phone: [facility] 11-19-2024 09:14-0500 Diastolic blood pressure 76 mm[Hg] Ad[facility] Nice [facility] 11-19-2024 09:14-0500 Heart rate 80 /min Adelfo Nice MD Work Phone: [facility] 11-19-2024 09:14-0500 Respiratory rate 17 /min Adelfo Nice MD Work Phone: [facility] 11-19-2024 09:14-0500 SaO2% (BldA) [Mass fraction] 97 % Adelfo Nice MD Work Phone: [facility] 11-19-2024 09:14-0500 Systolic blood pressure 117 mm[Hg] Adelfo Nice MD Work Phone: [facility] 02-10-2022 12:03-0400 Body height 165.[address] Becky Sotelo Work Phone: [facility] Work Phone: 02-10-2022 12:03-0400 Body mass index (BMI) [Ratio] 25.9 kg/m2 Dr. Becky Sotelo Work Phone: [facility] Work Phone: 02-10-2022 12:03-0400 Body weight 70.[address] Becky Sotelo Work Phone: [facility] Work Phone: 02-10-2022 12:03-0400 Diastolic blood pressure 82 mm[Hg] Dr. Becky Sotelo Work Phone: [facility] Work Phone: 02-10-2022 12:03-0400 Systolic blood pressure 136 mm[Hg] Dr. Becky Sotelo Work Phone: [facility] Work Phone: Encounters Encounter Date Encounter Type Care Provider Facility Start: 07-09-2025 ambulatory Radha Samara Facility :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 Becky Sotelo MD Work Phone: -[facility] Start: 06-13-2025 End: 06-13-[address] Elaine Jones MD -[facility] Work Phone: Start: 06-13-2025 End: 06-13-[address] Becky Sotelo MD Work Phone: -[facility] Start: 06-13-2025 End: 06-13-2025 ambulatory Elaine Jones Facility:[facility] Start: 05-29-2025 ambulatory Radha Samara Facility :[facility] Start: 05-28-2025 End: 05-28-[address] Becky Sotelo MD Work Phone: -Laboratory [facility] Start: 05-28-2025 End: 05-28-[address] Radha Pascual MD -[facility] Start: 05-28-2025 End: 05-28-2025 ambulatory Radha Samara Facility:[facility] Start: 05-09-2025 End: 05-09-[address] Becky Sotelo MD Work Phone: -Ultrasound [facility] Start: 05-09-2025 End: 05-09-2025 Patient encounter procedure La DORSEYC -Ultrasound [facility] Work Phone: Start: 05-09-2025 End: 05-09-2025 ambulatory [facility] Facility:[facility] Start: 05-05-2025 End: 05-05-2025 Refill Sarahy Estevez MD [facility] Phone: [facility] Contin[facility] COMPUTER OPERATIONS TECHNICIAN Comment on above: Refill Start: 04-24-2025 End: 04-24-[address] Becky Sotelo MD Work Phone: -Laboratory [facility] Start: 04-24-2025 End: 04-24-2025 Patient encounter procedure La LESTER -Laboratory Specimen Work Phone: Start: 04-23-2025 End: 04-23-2025 Patient encounter procedure La LESTER -[facility] Work Phone: Start: 04-23-2025 End: 04-24-[address] Becky Sotelo MD Work Phone: [facility] Work Phone: Start: 04-08-2025 End: 04-08-2025 Refill [facility]stevez MD [facility] Contin[facility] COMPUTER OPERATIONS TECHNICIAN Comment on above: Refill Start: 03-31-2025 End: 03-31-[address] Elaine Jones MD -[facility] Work Phone: Start: 03-31-2025 End: 03-31-[address] Becky Sotelo MD Work Phone: [facility] Work Phone: Start: 03-28-2025 End: 03-28-2025 Patient encounter procedure Humberto ENGLAND -[facility] Work Phone: Start: 03-28-2025 End: 03-28-[address] Becky Sotelo MD Work Phone: [facility] Work Phone: Start: 03-13-2025 End: 03-13-2025 Refill Sarahy Estevez MD Work Phone: [facility] Continuity COMPUTER OPERATIONS TECHNICIAN Comment on above: Refill Start: 03-07-2025 End: 03-07-2025 Patient encounter procedure Humberto ENGLAND -[facility] Work Phone: Start: 03-07-2025 End: 03-07-2025 ambulatory Radha Pascual Facility:[facility] Start: 02-28-2025 End: 02-28-2025 Emergency department patient visit Dr. Jorge Samuels DO -Emergency Department Work Phone: Start: 02-25-2025 End: 02-25-[address] Elaine Jones MD -Laboratory Work Phone: Start: 02-25-2025 End: 02-25-[address] Elaine Jones MD -[facility] Work Phone: Start: 02-25-2025 End: 02-25-2025 ambulatory Becky Sotelo Facility:[facility] Start: 02-25-2025 End: 02-25-2025 ambulatory Elaine Jones Facility:[facility] Start: 02-15-2025 End: 02-15-2025 Letter encounter Nedra Hurtado MD Work Phone: [facility] Start: 12-25-2024 End: 12-25-2024 Office outpatient visit 25 minutes Acute Care Surgery Resident [facility] Acute [facility] Surgery Comment on above: Postprocedural intra abdominal abscess (HCC) (Primary Dx) Start: 12-25-2024 End: 12-25-2024 ambulatory UNKNOWN PROVIDER Facility:[facility] Start: 12-20-2024 ambulatory Becky Sotelo Facilit y:[facility] Start: 12-06-2024 End: 12-06-2024 Telephone encounter Dewey Gorman RN [facility] Acute Ca re Surgery Start: 12-05-2024 End: 12-15-2024 Telephone encounter Nedra Hurtado MD Work Phone: [facility] Line Comment on above: DME wound care. Start: 11-29-2024 End: 11-29-2024 ambulatory Demetra Tellez MSW, INSURANCE DEFENSE ATTORNEY [facility] Social Work Start: 11-29-2024 End: 11-29-2024 Coordination of care plan Demetra Tellez MSW, INSURANCE DEFENSE ATTORNEY [facility] Social Work Comment on above: Care Coordination Start: 11-28-2024 End: 11-28-2024 ambulatory Demetra Tellez MSW, INSURANCE DEFENSE ATTORNEY [facility] Start: 11-28-2024 End: 11-28-2024 Coordination of care plan Demetra Tellez MSW, INSURANCE DEFENSE ATTORNEY [facility] Social Work Comment on above: Care Coordination Start: 11-27-2024 End: 11-27-2024 Office outpatient visit 40 minutes Nedra Hurtado MD Work Phone: [facility] Acute Care Surgery Comment on above: Postprocedural intra abdominal abscess (HCC) (Primary Dx) Start: 11-27-2024 End: 11-27-2024 Emergency department patient visit UNKNOWN PROVIDER Facility:[facility] Comment on above: Abdominal pain (Conc savana for perf bowl d/t drain output ) Start: 11-27-2024 End: 11-27-2024 ambulatory UNKNOWN PROVIDER Facility:[facility] Start: 11-27-2024 Emergency department patient visit UNKNOWN PROVIDER Facility:[facility] Start: 11-19-2024 End: 11-19-2024 ambulatory Demetra Tellez MSW, INSURANCE DEFENSE ATTORNEY [facility] Social Work Start: 11-19-2024 End: 11-19-2024 Coordination of care plan Demetra Tellez MSW, INSURANCE DEFENSE ATTORNEY [facility] Social Work Comment on above: Care Coordination Start: 11-19-2024 Evaluation and management of inpatient UNKNOWN PROVIDER Facility:[facility] Start: 11-15-2024 End: 11-19-2024 Evaluation and management of inpatient ADELFO NICE Facility:[facility] Start: 11-15-2024 ambulatory UNKNOWN PROVIDER Facili ty:[facility] Start: 11-14-2024 End: 11-19-2024 Evaluation and management of inpatient UNKNOWN PROVIDER Facility:[facility] Comment on above: Pre-eclampsia, antep artum (HCC) (Primary Dx); Postprocedural intraabdominal abscess (HCC); Positive urine drug screen; Type 2 diabetes mellitus without complication, without long-term current use of insulin (HCC) Start: 11-14-2024 End: 11-14-2024 Emergency department patient visit Sheila Lamar Facility:[facility] Start: 11-14-2024 ambulatory Genesis Mcintosh Facility :[facility] Start: 11-14-2024 End: 11-15-2024 Emergency department patient visit UNKNOWN PROVIDER Facility:[facility] Start: 11-07-2024 End: 11-07-2024 ambulatory Elaine Jones Facility:[facility] Start: 11-06-2024 ambulatory Elaine Jones Faci lity:[facility] Start: 11-06-2024 End: 11-09-2024 Evaluation and management of inpatient Elaine Jones Facility:[facility] Start: 05-07-2024 ambulatory Marlo NATH RN.SOURCING CONSULTANT Work Phone: [facility] Comment on above: PHMA/Care Gap Outrea Start: 05-07-2024 Telephone encounter Marlo avitia APRN.SOURCING CONSULTANT Work Phone: [facility] Comment on above: Appointment Start: 02-10-2022 End: 02-10-[address] Becky Sotelo Work Phone: [facility]-Laboratory, Specimen Start: 02-10-2022 End: 02-10-[address] Becky Sotelo Work Phone: [facility] Start: 01-22-2019 End: 01-23-2019 Patient encounter procedure [facility] Start: 10-11-2018 Patient requested procedure Marlo Loza APRN.SOURCING CONSULTANT Work Phone: [facility] Start: 10-04-2018 Patient encounter procedure SHYANN BUSH Facility:[facility] Start: 09-11-2018 Emergency department patient visit Nishant Lucio [facility] Start: 07-27-2018 Emergency department patient visit UNKNOWN PROVIDER [facility] Start: 06-21-2018 Emergency department patient visit Edith Benitez [facility] Start: 03-31-2018 Emergency department patient visit Zhao Taylor [facility] Start: 02-02-2018 Emergency department patient visit UNKNOWN PROVIDER [facility] Start: 01-07-2018 Emergency department patient visit Marlo Orlando [facility] Start: 12-23-2017 Emergency department patient visit Tony Bledsoe [facility] Start: 11-04-2017 Emergency department patient visit UNKNOWN PROVIDER [facility] Procedures Date Procedure Procedure Detail Performing Clinician Start: 05-28-[address] Becky mcginnis MD Work Phone: Comment on above: Test Ordered: [id number] Hair Drug Screen 9 PanelAmphetamines Negative pg/mg 0S Reference Range: 500Barbiturates Negative pg/mg 0S Reference Range: 200Benzodiazepines Negative pg/mg 0S Reference Range: 200Cocaine Negative pg/mg 0S Reference Range: 500Methadone Negative pg/mg 0S Reference Range: 200Opiates Negative pg/mg 0S Reference Range: 200PCP Negative pg/mg 0S Reference Range: 300Propoxyphene Negative pg/mg 0S Reference Range: 200Cannabinoids Negative pg/mg 0S Reference Range: 1Not SpecifiedAll screen methods are immunoassay unless otherwise noted.Test developed and characteristics determined by [facility]. See Compliance Statementon our website [email or web address] by: [email or web address] at: 0S - [facility] [id number] [place], [place] [id number] Director: Tami Stover PhD, Phone: [phone] at: - [facility] [id number] Director: Donell Nieto PhD, Phone: [phone] Start: 05-09-[address] Becky Sotelo MD Work Phone: Start: 04-24-2025 [address]ium diff[address] e detection Dr. Becky Sotelo MD Work Phone: Start: 04-24-[address] Becky Sotelo MD Work Phone: Start: 04-24-2025 Iadna-dna/rna gi pth gn multiplex probe tq 6-11 Dr. Becky Sotelo MD Work Phone: Start: 02-28-[address] Becky Sotelo MD Work Phone: Start: 02-25-2025 Liquid based cervica l cytology screening Dr. Becky Sotelo MD Work Phone: Comment on above: EPITHELIAL CELL ABNO RMALITY.ATYPICAL SQUAMOUS CELLS OF UNDETERMINED SIGNIFICANCE (ASC-US). This liquid based Th inPrep(R) pap test was screened withthe use of an image guided system. Start: 11-27-2024 Ct abdomen & pelvis w/contrast material Annie Parker FIREPOT OPERATOR AND TENDER-SOURCING CONSULTANT Work Phone: Start: 11-27-2024 Radex abscess/fistul a/sinus tract rs&i Tushar Mondragon PA-C Work Phone: Start: 11-27-2024 Assay of lipase Bella beatty FIREPOT OPERATOR AND TENDER-SOURCING CONSULTANT Work Phone: Start: 11-27-2024 Hepatic function panel Bella Win FIREPOT OPERATOR AND TENDER-SOURCING CONSULTANT Work Phone: Start: 11-19-2024 Glucose blood reagent strip Adelfo Nice MD Work Phone: Start: 11-19-2024 Glucose blood reagent strip Adelfo Nice MD Work Phone: Start: 11-19-2024 Assay of lactate Iglesia Rubin MD Work Phone: Start: 11-19-2024 Hepatic function panel Stan Rubin MD Work Phone: Start: 11-19-2024 Ct abdomen & pelvis w/contrast material Juany Muhammad MD Work Phone: Start: 11-19-2024 Glucose blood reagent strip Adelfo Nice MD Work Phone: Start: 11-18-2024 Glucose blood reagent strip Adelfo Nice MD Work Phone: Start: 11-18-2024 Glucose blood reagent strip Adelfo Nice MD Work Phone: Start: 11-18-2024 Glucose blood reagent strip Adelfo Nice MD Work Phone: Start: 11-18-2024 Glucose blood reagent strip Adelfo Nice MD Work Phone: Start: 11-18-2024 Glucose blood reagent strip Adelfo Nice MD Work Phone: Start: 11-18-2024 Glucose blood reagent strip Adelfo Nice MD Work Phone: Start: 11-17-2024 Glucose blood reagent strip Adelfo Nice MD Work Phone: Start: 11-17-2024 Glucose blood reagent strip Adelfo Nice MD Work Phone: Start: 11-17-2024 Glucose blood reagent strip Adelfo Nice MD Work Phone: Start: 11-17-2024 Blood count smear mc rscp w/mnl difrntl wbc count Sarahy Estevez MD Work Phone: Start: 11-17-2024 Glucose blood reagent strip Adelfo Nice MD Work Phone: Start: 11-17-2024 Blood typing, ABO, R ho(D) and RBC antibody screening Janna Carrasco MD Work Phone: Start: 11-17-2024 Glucose blood reagent strip Adelfo Nice MD Work Phone: Start: 11-16-2024 Glucose blood reagent strip Adelfo Nice MD Work Phone: Start: 11-16-2024 Glucose blood reagent strip Adelfo Nice MD Work Phone: Start: 11-16-2024 Glucose blood reagent strip Adelfo Nice MD Work Phone: Start: 11-16-2024 Glucose blood reagent strip Adelfo Nice MD Work Phone: Start: 11-16-2024 Glucose blood reagent strip Adelfo Nice MD Work Phone: Start: 11-15-2024 Glucose blood reagent strip Adelfo Nice MD Work Phone: Start: 11-15-2024 Glucose blood reagent strip Adelfo Nice MD Work Phone: Start: 11-15-2024 End: 11-15-2024 Cul bact xcpt urine blood/stool aerobic isol Adelfo Nice MD Work Phone: Start: 11-15-2024 Radiological guidanc e prq drg w/plmt cath rs&i Janna Carrasco MD Work Phone: Start: 11-15-2024 Glucose blood reagent strip Adelfo Nice MD Work Phone: Start: 11-15-2024 Glucose blood reagent strip Adelfo Nice MD Work Phone: Start: 11-15-2024 Ct abdomen & pelvis w/contrast material Juany Muhammad MD Work Phone: Start: 11-15-2024 Drug screen class list a Janna Carrasco MD Work Phone: Start: 11-15-2024 End: 11-15-2024 Assay of lactate Juany Muhammad MD Work Phone: Start: 11-15-2024 Radiologic exam abdo men 1 view Juany Muhammad MD Work Phone: Start: 11-15-2024 Us retroperitoneal r eal time w/image limited Juany Muhammad MD Work Phone: Start: 11-15-2024 Glucose blood reagent strip Adelfo Nice MD Work Phone: Start: 11-15-2024 Glucose blood reagent strip Adelfo Nice MD Work Phone: Start: 11-15-2024 Glucose blood reagent strip Adelfo Nice MD Work Phone: Start: 11-15-2024 Radiology Comparison study - date and time Amish Streeter MD Work Phone: Start: 11-15-2024 Blood typing, ABO, R ho(D) and RBC antibody screening Janan Carrasco MD Work Phone: Start: 11-15-2024 End: 11-15-2024 Hemoglobin glycosylated a1c Janna naik MD Work Phone: Start: 11-15-2024 Insulin antibodies Juany Muhammad MD Work Phone: Start: 11-14-2024 HIV-1 RNA PCR, QUANTITATIVE Janna Carrasco MD Work Phone: Start: 02-10-2022 Cytopathology proced ure, preparation of smear, genital source Dr. Becky Sotelo Work Phone: Start: 02-10-2022 Investigation of tra nsfusion reaction Dr. Becky Sotelo Work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 the kidneys and unenhanced urinarybladder. Symmetric renal function. No hydroureteronephrosis process. Abdominal and pelvic vasculature: Unremarkable GI tract: * No enteric contrast was administered examination. There is contrast opacification of the right colon extending from the cecum proximally to the level of the hepatic flexure. There is contrast opacification of the right colon relates to the recent sonogram. The contrast appears predominantly intraluminal within the colon mixing with fecal residue. No extravasation of the previously administered contrast is noted which was administered through the percutaneous drainage catheter within the rightanterolateral aspect of the peritoneal cavity. Amorphous fluid collection noted previously surrounding this catheter has significantly improved in the interval with a tiny residual collection noted al asim the inferior margin of this catheter measuring 1.3 cm in maximal transverse dimension located along the right anterolateral margin of the ascending colon (Series 2, Image 77). * No evidence of bowel obstruction. The appendix is surgically absent. Peritoneum and retroperitoneum: No free fluid or free air. Lymph Nodes: No abdominal or pelvic lymphadenopathy. Uterus and adnexa: Evolving appearance of the uterus. Visualized musculoskeletal structures: No interval acute process. IMPRESSION: 1. The fistulous communication between the percutaneous drainage catheter in the right anterolateral peritoneal cavity at the level of the ascending colon demonstrated on recent sinogram appears contained between the catheter and the right colon as the contrast previously administered via the catheter is contained within the lumen of the right colon from cecum to the hepatic flexure without extravasation. 2. Significant improvement and near resolution of the complex air and fluid collection surrounding the percutaneous drainage catheter with a tiny 1.3 cm residual collection remaining. 3. No free intraperitoneal fluid or air. 4. Evolving appearance of the uterus. 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 MPR sagittal and coronal reconstructions were obtained from the axial data. Before infusion of intravenous contrast, radiology personnel investigated the possibility of an allergic history and of any history of reaction to iodinated contrast material. Contrast Protocol: Omnipaque 350 [>or =100lb] 100 ml [<100 lb] 1 ml per 1 lb. INTRA-PROCEDURE MEDS: iohexol (OMNIPAQUE) 350 MG/ML injection 100 mL Route: Intravenous Push FINDINGS: Included images of the lower thorax: Bilateral dependent atelectasis. Hepatobiliary: The visualized liver and gallbladder are stable and unremarkable. No biliary dilatation. The most superior aspect of the hepatic dome is incompletely imaged. Pancreas: Stable and unremarkable. Spleen: Stable and unremarkable. Adrenal Glands: Stable and unremarkable. Kidneys, ureters, and bladder: Stable unremarkable appearance of the kidneys and unenhanced urinarybladder. Symmetric renal function. No hydroureteronephrosis process. Abdominal and pelvic vasculature: Unremarkable GI tract: * No enteric contrast was administered examination. There is contrast opacification of the right colon extending from the cecum proximally to the level of the hepatic flexure. There is contrast opacification of the right colon relates to the recent sonogram. The contrast appears predominantly intraluminal within the colon mixing with fecal residue. No extravasation of the previously administered contrast is noted which was administered through the percutaneous drainage catheter within the rightanterolateral aspect of the peritoneal cavity. Amorphous fluid collection noted previously surrounding this catheter has significantly improved in the interval with a tiny residual collection noted al asim the inferior margin of this catheter measuring 1.3 cm in maximal transverse dimension located along the right anterolateral margin of the ascending colon (Series 2, Image 77). * No evidence of bowel obstruction. The appendix is surgically absent. Peritoneum and retroperitoneum: No free fluid or free air. Lymph Nodes: No abdominal or pelvic lymphadenopathy. Uterus and adnexa: Evolving appearance of the uterus. Visualized musculoskeletal structures: No interval acute process. IMPRESSION: 1. The fistulous communication between the percutaneous drainage catheter in the right anterolateral peritoneal cavity at the level of the ascending colon demonstrated on recent sinogram appears contained between the catheter and the right colon as the contrast previously administered via the catheter is contained within the lumen of the right colon from cecum to the hepatic flexure without extravasation. 2. Significant improvement and near resolution of the complex air and fluid collection surrounding the percutaneous drainage catheter with a tiny 1.3 cm residual collection remaining. 3. No free intraperitoneal fluid or air. 4. Evolving appearance of the uterus. MACRO: None [id number] History and physical note* Tushar Mondragon PA-C - 11/27/2024 2:42 PM EST Images from the original note were not included. [facility] DIVISION OF ACUTE CARE SURGERY EMERGENCY GENERAL SURGERY CONSULTATION Reason for consultation: feculent drainage from IR drain Referring physician: No ref. provider found HPI: Bernadette Faust is a 29 year old female with PMHx of DM2, pre-eclampsia. Patient is known to EGS service. She underwent an emergent at 34 weeks for placental abruption (11/06). She was worked up at OSH for RUQ abdominal pain and found to have a RUQ fluid collection concerning for an intra-abdominal abscess. Patient was transferred to [facility] on 11/15 for intra-abdominal abscess management. EGS and IR were consulted and percutaneous drian was placed on 11/15 by IR. EGS signed off 11/16. Patient discharged home on 11/19. Patient was seen today in EGS clinic for routine follow up and possible drain removal. Due to feculent drainage from IR drain, patient was sent to ER with EGS consult for further evaluation. During ED encounter, patient reports that she noticed a change in color/character/smell the day prior to discharge. Drainage was initially yellow/cloudy and purulent appearing. However, drainage changed to cloudy, brown, foul smelling drainage. Patient reports that drainage smells like stool and sulfur. Shenoticed that the IR bag filled up quickly with drainage that appeared like chicken broth shortly after drinking chicken broth. She has also noticed that bag will fill with air. She has been irrigating IR drain with 10cc NS flushes, but is sure that she has not been irrigating drain with air. Regarding abdominal pain, patient endorses moderate pain to right-side of abdomen, especially near drain site. Pain is no worse than time of discharge, but has not improved. She also endorses intermittent nausea, which has been occurring throughout hospitalization/discharge. She did have x2 episodes of domingo sis while at home. Patient does deny fever/sweats/chills. Patient completed augmentin abx course this AM. 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) complex migraine, negative MS workup, on ajovy q3mo TIA (transient ischemic attack) (12/2016) presented to ED for L sided weakness, CTH/CTA/MRI wnl, vs complex migraine PSH: Review of patient's past surgical history indicates: EXCISION, BREAST LESION(S), OPEN, MALE/FEMALE;* (02/09/2017) left nipple lesion + milk duct DILATION & CURETTAGE, DX &/OR THERAPEUTIC (NON* (2013) delayed PPH, RPOC DILATION & CURETTAGE, DX &/OR THERAPEUTIC (NON* SAB TONSILLECTOMY & ADENOIDECTOMY; AGE 12+ APPENDECTOMY (05/2006) DELIVERY ONLY (11/06/2024) PPH, 1u PRBC MEDS: Prior to Admission Medications Prescriptions Last Dose Informant Patient Reported? Taking? Blood Glucose Monitoring Suppl (Blood Glucose Monitor System) w/Device KIT No No Si Kit as needed. As covered by insurance. Dx: DM2, uncontrolled (E11.65) with long-term insulin use (Z79.4) Lancets [facility] [place] No Si Each 4 times daily (before meals and at bedtime). Use these lancets to test your blood sugarfasting in the morning, before meals, 1hr after meals, and at bedtime NIFEdipine (ADALAT CC) 30 MG CR tablet No No Sig: Take 1 Tablet by mouth 2 times a day. acetaminophen (TYLENOL) 500 MG tablet No No Sig: Take 2 Tablets by mouth every 6 hours. alcohol swabs pads No No Sig: Use to clean skin prior to checking blood sugar and/or injecting medication cyclobenzaprine (FLEXERIL) 5 MG tablet No No Sig: Take 2 Tablets by mouth 3 times daily as needed for Muscle spasms. cyproheptadine (PERIACTIN) 4 MG tablet No No Sig: Take 1 Tablet by mouth 3 times daily as needed for Allergies. docusate sodium (COLACE) 100 MG capsule No No Sig: Take 1 Capsule by mouth 2 times daily. glucose blood test strip No No Si Strip 7 times daily as instructed. Use these test strips to test blood sugar AM fasting, premeal, 1hr postmeal, and before bedtime daily. ibuprofen (MOTRIN) 600 MG tablet No No Sig: Take 1 Tablet by mouth every 6 hours. insulin glargine (LANTUS SOLOSTAR/BASAGLAR KWIKPEN) 100 UNIT/ML pen No No Sig: Inject 14 Units under the skin at bedtime. insulin pen needle 31g x 5 mm (TechLite Pen Philipp) No No Sig: For use with insulin pens labetalol (NORMODYNE) 200 MG tablet No No Sig: Take 1 Tablet by mouth 2 times daily. lamoTRIgine (LaMICtal) 25 MG tablet No No Sig: Take 1 Tablet by mouth daily. metFORMIN (GLUCOPHAGE) 500 MG tablet No No Sig: Take 2 Tablets by mouth 2 times daily (with meals). metoclopramide (REGLAN) 10 MG tablet No No Sig: Take 1 Tablet by mouth every 6 hours as needed (nausea and/or headache). Facility-Administered Medications: None ALL: Allergies Allergen Reactions Verapamil Anaphylactic Shock Botulinum Toxin Type A Itching Onabotulinumtoxina Itching, Rash and Swelling Face tingling and skin itching. Bandage Tape Rash Latex Other and Rash FH: No family history on file. SH: Social History Socioeconomic History Marital status: Single Social Drivers of Health Financial Resource Strain: High Risk (08/22/2021) Received from [facility] Overall Financial Resource Strain (CARDIA) Difficulty of Paying Living Expenses: Very hard Food Insecurity: Food Insecurity Present (08/22/2021) Received from [facility] Hunger Vital Sign Worried About Running Out of Food in the Last Year: Sometimes true Ran Out of Food in the Last Year: Sometimes true Transportation Needs: No Transportation Needs (08/22/2021) Received from [facility] PRAPARE - Transportation Lack of Transportation (Medical): No Lack of Transportation (Non-Medical): No Physical Activity: Sufficiently Active (08/22/2021) Received from [facility] Exercise Vital Sign Days of Exercise per Week: 4 days Minutes of Exercise per Session: 40 min Stress: Stress Concern Present (08/22/2021) Received from [facility] [place] [employer] [place] of Occupational Health - Occupational Stress Questionnaire Feeling of Stress : Very much Social Connections: Unknown (08/22/2021) Received from [facility] Social Connection and Isolation Panel [NHANES] Frequency of Communication with Friends and Family: More than three times a week Frequency of Social Gatherings with Friends and Family: Twice a week Attends Hindu Services: Patient declined Active Member of Clubs or Organizations: No Attends Club or Organization Meetings: Patient declined Marital Status: Living with partner Review Of Systems: Skin: negative Eyes: negative review of symptoms Ears/Nose/Throat: negative Respiratory: negative symptoms (no cough, hemoptysis, SOB, MACKAY, PND, wheezing) Cardiovascular: negative symptoms (No CP/Pressure/Tightness, palpitations, orthopnea, PND, SOB, MACKAY, edema, HERNADEZ or vision change) Gastrointestinal: Positive abdominal pain, feculent drainage from IR drain Genitourinary: no urinary symptoms Neurologic: negative symptoms (no syncope, seizures, weakness, gait problems, numbness, burning pain, tremors, or memory loss) negative (no arthritic pain, no joint swelling, no muscle weakness) Psychiatric: negative (no sleep disturbance, anxiety, memory loss, disorientation, inattention, feelings of depression) Hematologic/Lymphatic/Immunologic: negative (no anemia, bleeding, bruising) Endocrine: negative review of symptoms PHYSICAL EXAM: VITALS: Vitals: 11/27/24 1301 BP: 118/77 Pulse: 87 Resp: 20 Temp: SpO2: 98% Physical Exam Constitutional: General: She is not in acute distress. Appearance: She is not ill-appearing or toxic-appearing. Cardiovascular: Rate and Rhythm: Normal rate and regular rhythm. Pulmonary: Effort: Pulmonary effort is normal. No respiratory distress. Abdominal: General: Abdomen is flat. Palpations: Abdomen is soft. Tenderness: There is abdominal TTP to RUQ/RLQ, worse near drain site, no rebound TTP or guarding. IR drain to RLQ with feculent drainage in bag. Skin around drain site with minimal erythema, induration -- seems to be directly associated with suture anchoring IR drain. Musculoskeletal: General: No swelling or tenderness. Skin: General: Skin is warm and dry. Neurological: General: No focal deficit present. Mental Status: She is alert and oriented to person, place, and time. Mental status is at baseline. LABS: CBC/PT/INR 11/27/2024 11:31 AM WBC 13.1 RBC 3.68 Hgb 9.8 Hct 29.7 MCV 81 RDW 17.4 Plt 913 Basic Metabolic Panel 11/27/2024 11:31 AM Na 136 K 4.8 Cl 100 CO2 23 Gap 18 Glu 125 BUN 21 Cr 0.80 Ca 9.3 Mg 1.6 Arterial Blood Gases None IMAGING (personally reviewed by me): FL sinogram fistulogram: 50 mL of Omnipaque was administered through the catheter/drain. There is opacification of the rightcolon. Finding conforms fistulous connection the right colon.. CT abd/pelvis with IV contrast: 1. The fistulous communication between the percutaneous drainage catheter in the right anterolateral peritoneal cavity at the level of the ascending colon demonstrated on recent sinogram appears contained between the catheter and the right colon as the contrast previously administered via the catheter is contained within the lumen of the right colon from cecum to the hepatic flexure without extravasation. 2. Significant improvement and near resolution of the complex air and fluid collection surrounding the percutaneous drainage catheter with a tiny 1.3 cm residual collection remaining. 3. No free intraperitoneal fluid or air. 4. Evolving appearance of the uterus. ASSESSMENT/RECOMMENDATIONS: Bernadette Faust is a 29 year old female with PMHx of DM2, pre-eclampsia. Patient is s/p emergent on 11/06 for placental abruption and IR drain placement to intraabdominal fluid collection on 11/15 ([facility]). Patient did receive CT a/p with IV and PO contrast priorto discharge, which demonstrated no definitive bowel injury and interval decrease in size of collection with drain in appropriate place. Patient was discharged home on 11/19. Patient represents today with feculent drainage from IR drain, which started 1 day prior to discharge. Patient directed to EDfrom OP EGS Clinic visit. While in ED, patient is afebrile and HDS. She does have a mild leukocytosis at 13.1 (10.8). IR drain study/fistulagram confirms fistulous connection to the right colon. CT abd/pelvis with IV contrastordered to reevaluate intra-abdominal abscess seeing as IR drain is located in the colon. CT imaging again demonstrates a fistulous communication between percutaneous drainage catheter and ascending colon -- contrast remains in the colon without extravasation. Previously noted fluid collection surrounding percutaneous drainage has significantly improved with tiny 1.3 cm residual collection. - No acute surgical intervention required at this time. - Extensive conversation between EGS team (with Dr. Meyers), Dr. Hurtado, and Dr. Constantino. Ok for discharge home with follow up in 6 weeks from IR drain placement. This will allow for fistulous tract to mature to allow for safe drain removal at OP visit. Patient will not require abx on discharge home. Current abx course completed this AM. - additional flushes, alcohol wipes, and IR bags provided to patient at discharge - ED sent refill for flexeril and reglan to [facility] - OP EGS follow up on 12/25 Tushar Mondragon PA-C Trauma Surgery Surgical Critical Care Emergency General Surgery Emergency General Surgery Consult Pager: [phone] Emergency General Surgery Floor Pager: [phone] The patient's care was discussed with the EGS floor attending, Dr. Meyers. Cosigned by Cortes Meyers MD at 11/28/2024 8:31 AM EST Associated attestation - Cortes Meyers MD - 11/28/2024 8:31 AM EST Split/Shared Documentation I approve the management plan for this patient and take responsibility for the plan as documented. Independent Interpretation of Tests Performed by Another Physician/LAZARO: I personally performed, reviewed, and interpreted labs and imaging with findings of iatrogenic colocutaneous fistula. Patient is relatively asymptomatic, will plan to allow fistula to mature. Follow up in 4 weeks for drain removal. Cortes Meyers MD [employer] Work Phone: [phone] History and physical note* Tushar Mondragon PA-C - 11/27/2024 2:42 PM EST Images from the original note were not included. [facility] DIVISION OF ACUTE CARE SURGERY EMERGENCY GENERAL SURGERY CONSULTATION Reason for consultation: feculent drainage from IR drain Referring physician: No ref. provider found HPI: Bernadette Faust is a 29 year old female with PMHx of DM2, pre-eclampsia. Patient is known to EGS service. She underwent an emergent at 34 weeks for placental abruption (11/06). She was worked up at OSH for RUQ abdominal pain and found to have a RUQ fluid collection concerning for an intra-abdominal abscess. Patient was transferred to [facility] on 11/15 for intra-abdominal abscess management. EGS and IR were consulted and percutaneous drian was placed on 11/15 by IR. EGS signed off 11/16. Patient discharged home on 11/19. Patient was seen today in EGS clinic for routine follow up and possible drain removal. Due to feculent drainage from IR drain, patient was sent to ER with EGS consult for further evaluation. During ED encounter, patient reports that she noticed a change in color/character/smell the day prior to discharge. Drainage was initially yellow/cloudy and purulent appearing. However, drainage changed to cloudy, brown, foul smelling drainage. Patient reports that drainage smells like stool and sulfur. Shenoticed that the IR bag filled up quickly with drainage that appeared like chicken broth shortly after drinking chicken broth. She has also noticed that bag will fill with air. She has been irrigating IR drain with 10cc NS flushes, but is sure that she has not been irrigating drain with air. Regarding abdominal pain, patient endorses moderate pain to right-side of abdomen, especially near drain site. Pain is no worse than time of discharge, but has not improved. She also endorses intermittent nausea, which has been occurring throughout hospitalization/discharge. She did have x2 episodes of emesis while at home. Patient does deny fever/sweats/chills. Patient completed augmentin abx course this AM. 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) complex migraine, negative MS workup, on ajovy q3mo TIA (transient ischemic attack) (12/2016) presented to ED for L sided weakness, CTH/CTA/MRI wnl, vs complex migraine PSH: Review of patient's past surgical history indicates: EXCISION, BREAST LESION(S), OPEN, MALE/FEMALE;* (02/09/2017) left nipple lesion + milk duct DILATION & CURETTAGE, DX &/OR THERAPEUTIC (NON* (2013) delayed PPH, RPOC DILATION & CURETTAGE, DX &/OR THERAPEUTIC (NON* SAB TONSILLECTOMY & ADENOIDECTOMY; AGE 12+ APPENDECTOMY (05/2006) DELIVERY ONLY (11/06/2024) PPH, 1u PRBC MEDS: Prior to Admission Medications Prescriptions Last Dose Informant Patient Reported? Taking? Blood Glucose Monitoring Suppl (Blood Glucose Monitor System) w/Device KIT No No Si Kit as needed. As covered by insurance. Dx: DM2, uncontrolled (E11.65) with long-term insulin use (Z79.4) Lancets MIS No No Si Each 4 times daily (before meals and at bedtime). Use these lancets to test your blood sugarfasting in the morning, before meals, 1hr after meals, and at bedtime NIFEdipine (ADALAT CC) 30 MG CR tablet No No Sig: Take 1 Tablet by mouth 2 times a day. acetaminophen (TYLENOL) 500 MG tablet No No Sig: Take 2 Tablets by mouth every 6 hours. alcohol swabs pads No No Sig: Use to clean skin prior to checking blood sugar and/or injecting medication cyclobenzaprine (FLEXERIL) 5 MG tablet No No Sig: Take 2 Tablets by mouth 3 times daily as needed for Muscle spasms. cyproheptadine (PERIACTIN) 4 MG tablet No No Sig: Take 1 Tablet by mouth 3 times daily as needed for Allergies. docusate sodium (COLACE) 100 MG capsule No No Sig: Take 1 Capsule by mouth 2 times daily. glucose blood test strip No No Si Strip 7 times daily as instructed. Use these test strips to test blood sugar AM fasting, premeal, 1hr postmeal, and before bedtime daily. ibuprofen (MOTRIN) 600 MG tablet No No Sig: Take 1 Tablet by mouth every 6 hours. insulin glargine (LANTUS SOLOSTAR/BASAGLAR KWIKPEN) 100 UNIT/ML pen No No Sig: Inject 14 Units under the skin at bedtime. insulin pen needle 31g x 5 mm (TechLite Pen Philipp) No No Sig: For use with insulin pens labetalol (NORMODYNE) 200 MG tablet No No Sig: Take 1 Tablet by mouth 2 times daily. lamoTRIgine (LaMICtal) 25 MG tablet No No Sig: Take 1 Tablet by mouth daily. metFORMIN (GLUCOPHAGE) 500 MG tablet No No Sig: Take 2 Tablets by mouth 2 times daily (with meals). metoclopramide (REGLAN) 10 MG tablet No No Sig: Take 1 Tablet by mouth every 6 hours as needed (nausea and/or headache). Facility-Administered Medications: None ALL: Allergies Allergen Reactions Verapamil Anaphylactic Shock Botulinum Toxin Type A Itching Onabotulinumtoxina Itching, Rash and Swelling Face tingling and skin itching. Bandage Tape Rash Latex Other and Rash FH: No family history on file. SH: Social History Socioeconomic History Marital status: Single Social Drivers of Health Financial Resource Strain: High Risk (08/22/2021) Received from [facility] Overall Financial Resource Strain (CARDIA) Difficulty of Paying Living Expenses: Very hard Food Insecurity: Food Insecurity Present (08/22/2021) Received from [facility] Hunger Vital Sign Worried About Running Out of Food in the Last Year: Sometimes true Ran Out of Food in the Last Year: Sometimes true Transportation Needs: No Transportation Needs (08/22/2021) Received from [facility] PRAPARE - Transportation Lack of Transportation (Medical): No Lack of Transportation (Non-Medical): No Physical Activity: Sufficiently Active (08/22/2021) Received from [facility] Exercise Vital Sign Days of Exercise per Week: 4 days Minutes of Exercise per Session: 40 min Stress: Stress Concern Present (08/22/2021) Received from [facility] [place] Citizen [place] of Occupational Health - Occupational Stress Questionnaire Feeling of Stress : Very much Social Connections: Unknown (08/22/2021) Received from [facility] Social Connection and Isolation Panel [NHANES] Frequency of Communication with Friends and Family: More than three times a week Frequency of Social Gatherings with Friends and Family: Twice a week Attends Hindu Services: Patient declined Active Member of Clubs or Organizations: No Attends Club or Organization Meetings: Patient declined Marital Status: Living with partner Review Of Systems: Skin: negative Eyes: negative review of symptoms Ears/Nose/Throat: negative Respiratory: negative symptoms (no cough, hemoptysis, SOB, MACKAY, PND, wheezing) Cardiovascular: negative symptoms (No CP/Pressure/Tightness, palpitations, orthopnea, PND, SOB, MACKAY, edema, HERNADEZ or vision change) Gastrointestinal: Positive abdominal pain, feculent drainage from IR drain Genitourinary: no urinary symptoms Neurologic: negative symptoms (no syncope, seizures, weakness, gait problems, numbness, burning pain, tremors, or memory loss) negative (no arthritic pain, no joint swelling, no muscle weakness) Psychiatric: negative (no sleep disturbance, anxiety, memory loss, disorientation, inattention, feelings of depression) Hematologic/Lymphatic/Immunologic: negative (no anemia, bleeding, bruising) Endocrine: negative review of symptoms PHYSICAL EXAM: VITALS: Vitals: 11/27/24 1301 BP: 118/77 Pulse: 87 Resp: 20 Temp: SpO2: 98% Physical Exam Constitutional: General: She is not in acute distress. Appearance: She is not ill-appearing or toxic-appearing. Cardiovascular: Rate and Rhythm: Normal rate and regular rhythm. Pulmonary: Effort: Pulmonary effort is normal. No respiratory distress. Abdominal: General: Abdomen is flat. Palpations: Abdomen is soft. Tenderness: There is abdominal TTP to RUQ/RLQ, worse near drain site, no rebound TTP or guarding. IR drain to RLQ with feculent drainage in bag. Skin around drain site with minimal erythema, induration -- seems to be directly associated with suture anchoring IR drain. Musculoskeletal: General: No swelling or tenderness. Skin: General: Skin is warm and dry. Neurological: General: No focal deficit present. Mental Status: She is alert and oriented to person, place, and time. Mental status is at baseline. LABS: CBC/PT/INR 11/27/2024 11:31 AM WBC 13.1 RBC 3.68 Hgb 9.8 Hct 29.7 MCV 81 RDW 17.4 Plt 913 Basic Metabolic Panel 11/27/2024 11:31 AM Na 136 K 4.8 Cl 100 CO2 23 Gap 18 Glu 125 BUN 21 Cr 0.80 Ca 9.3 Mg 1.6 Arterial Blood Gases None IMAGING (personally reviewed by me): FL sinogram fistulogram: 50 mL of Omnipaque was administered through the catheter/drain. There is opacification of the rightcolon. Finding conforms fistulous connection the right colon.. CT abd/pelvis with IV contrast: 1. The fistulous communication between the percutaneous drainage catheter in the right anterolateral peritoneal cavity at the level of the ascending colon demonstrated on recent sinogram appears contained between the catheter and the right colon as the contrast previously administered via the catheter is contained within the lumen of the right colon from cecum to the hepatic flexure without extravasation. 2. Significant improvement and near resolution of the complex air and fluid collection surrounding the percutaneous drainage catheter with a tiny 1.3 cm residual collection remaining. 3. No free intraperitoneal fluid or air. 4. Evolving appearance of the uterus. ASSESSMENT/RECOMMENDATIONS: Bernadette Faust is a 29 year old female with PMHx of DM2, pre-eclampsia. Patient is s/p emergent on 11/06 for placental abruption and IR drain placement to intraabdominal fluid collection on 11/15 ([facility]). Patient did receive CT a/p with IV and PO contrast priorto discharge, which demonstrated no definitive bowel injury and interval decrease in size of collection with drain in appropriate place. Patient was discharged home on 11/19. Patient represents today with feculent drainage from IR drain, which started 1 day prior to discharge. Patient directed to EDfrom OP EGS Clinic visit. While in ED, patient is afebrile and HDS. She does have a mild leukocytosis at 13.1 (10.8). IR drain study/fistulagram confirms fistulous connection to the right colon. CT abd/pelvis with IV contrastordered to reevaluate intra-abdominal abscess seeing as IR drain is located in the colon. CT imaging again demonstrates a fistulous communication between percutaneous drainage catheter and ascending colon -- contrast remains in the colon without extravasation. Previously noted fluid collection surrounding percutaneous drainage has significantly improved with tiny 1.3 cm residual collection. - No acute surgical intervention required at this time. - Extensive conversation between EGS team (with Dr. Meyers), Dr. Hurtado, and Dr. Constantino. Ok for discharge home with follow up in 6 weeks from IR drain placement. This will allow for fistulous tract to mature to allow for safe drain removal at OP visit. Patient will not require abx on discharge home. Current abx course completed this AM. - additional flushes, alcohol wipes, and IR bags provided to patient at discharge - ED sent refill for flexeril and reglan to [facility] heather - OP EGS follow up on 12/25 Tushar Mondragon PA-C Trauma Surgery Surgical Critical Care Emergency General Surgery Emergency General Surgery Consult Pager: [phone] Emergency General Surgery Floor Pager: [phone] The patient's care was discussed with the EGS floor attending, Dr. Meyers. Cosigned by Cortes Meyers MD at 11/28/2024 8:31 AM EST Associated attestation - Cortes Meyers MD - 11/28/2024 8:31 AM EST Split/Shared Documentation I approve the management plan for this patient and take responsibility for the plan as documented. Independent Interpretation of Tests Performed by Another Physician/LAZARO: I personally performed, reviewed, and interpreted labs and imaging with findings of iatrogenic colocutaneous fistula. Patient is relatively asymptomatic, will plan to allow fistula to mature. Follow up in 4 weeks for drain removal. Cortes Meyers MD documented in this [id number] Physician Emergency department Note* Jyoti Brewer MD - 11/27/2024 12:40 PM EST Images from the original note were not included. 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 This is a 29 year old female patient, s/p emergency pLTCS for abruption +NRFS with Pre-eclampsia on11/06/24 complicated by intra-abdominal abscess s/p IR drain on 11/15/24, sent in to ED by EGS for concerns of drain migration vs bowel perforation. Patient reports that she has been having worsening abdominal pain for the past two days. Also reports that she vomited twice yesterday. She has been noticing fecal material in the drain which was the concerning part for the EDS team. No fever or chills. Abdominal pain Associated symptoms: vomiting REVIEW OF SYSTEMS Review of Systems Gastrointestinal: Positive for abdominal pain and vomiting. PAST HISTORY Pertinent Past History: Past Medical History: Diagnosis Date Intractable chronic migraine without aura and without status migrainosus 2016 complex migraine, negative MS workup, on ajovy q3mo Lesion of left nipple 02/09/2017 s/p excision of lesion + milk duct, pathology benign, 2016 mammo benign TIA (transient ischemic attack) 12/2016 presented to ED for L sided weakness, CTH/CTA/MRI wnl, vs complex migraine Patient Active Problem List: Pre-eclampsia, antepartum (HCC) [O14.90] Intraperitoneal abscess (HCC) [K65.1] Pertinent Social History: PHYSICAL EXAM BP 103/67 Pulse 89 Temp 98 F (36.7 C) (Oral) Resp 18 SpO2 98% Physical Exam Vitals reviewed. Constitutional: General: She is not in acute distress. Appearance: She is not ill-appearing, toxic-appearing or diaphoretic. HENT: Head: Normocephalic. Cardiovascular: Rate and Rhythm: Normal rate and regular rhythm. Heart sounds: Normal heart sounds. Pulmonary: Effort: Pulmonary effort is normal. Breath sounds: Normal breath sounds. Abdominal: Palpations: Abdomen is soft. Tenderness: There is generalized abdominal tenderness. There is no guarding. Skin: Findings: No rash. Neurological: General: No focal deficit present. Mental Status: She is alert and oriented to person, place, and time. MEDICAL DECISION MAKING and ED COURSE Review of External (Non- ED) Notes: Office visit from EGS today reviewed and shows: 29 year old woman with intraabdominal hematoma and abscess after urgent low transverse for placental abruption that was treated with IR drain placement. Patient reports ongoing purulo-feculent drainage with gas in bag that is concerned to me for either drain migration into the colon or a heretofore undetected colonic injury - last CT scan on 11/19 did not have contrast within the colon. I'm sending her to ED for IR drain study to determine drain location. She may also need repeat CT a/p with IV and rectal contrast to re-evaluation the abscess. Discussion with External Provider: Oriental Medicine Practitioner from [facility] service recommends IR fistulagram and CT A/P Medication Management: Medications prescribed - see visit medications. Independent Test Interpretation: Lab studies reviewed, please see ED course Junior Garcia Course: ED Course as of 11/27/24 1250 MonNov 27, 2024 1244 WBC(!): 13.1 Leukocytosis present [KS] 1245 Hemoglobin(!): 9.8 Hgb around baseline [KS] 1245 Magnesium(!): 1.6 Mild hypomagnesemia [KS] 1245 Hepatic Function Panel(!): Albumin 3.7 Bilirubin, Direct <0.05 Bilirubin, Total 0.2(!) Alkaline Phosphatase 92 ALT (SGPT) 14 AST (SGOT) 14 Protein, Total 7.0 Normal LFTs [KS] 1245 Basic Metabolic Panel(!): Glucose 125(!) Sodium 136 Potassium 4.8 Carbon Dioxide 23 Chloride 100 BUN 21 Creatinine 0.80 Calcium 9.3 Anion Gap 18 Estimated GFR 101 No MARY or clinically significant abnormalities in electrolytes [KS] ED Course User Index [KS] Jyoti Brewer MD Assessment & Plan: This is a 29 year old female patient, s/p emergency pLTCS for abruption +NRFS with Pre-eclampsia on11/06/24 complicated by intra-abdominal abscess s/p IR drain on 11/15/24, sent in to ED by EGS for concerns of drain migration vs bowel perforation. Patient is well appearing, no acute distress. However, seems in pain so was given IV pain medications and antiemetics in ED. HDS, vitals within normal. Abdomen with generalized tenderness but no peritoneal signs. On labs, patient has mild leukocytosis of 13.1. No MARY or clinically significant abnormalities in electrolytes. Magnesium was 1.6 which was replaced. Fistulagram was done by IR team and showed Findings consistent with colonic fistula. EGS recommended CT A/P with IV contrast. CT A/P with contrast showed: 1. The fistulous communication between the percutaneous drainage catheter in the right anterolateral peritoneal cavity at the level of the ascending colon demonstrated on recent sinogram appears contained between the catheter and the right colon as the contrast previously administered via the catheter is contained within the lumen of the right colon from cecum to the hepatic flexure without extravasation. 2. Significant improvement and near resolution of the complex air and fluid collection surrounding the percutaneous drainage catheter with a tiny 1.3 cm residual collection remaining. EGS team recommended discharge home with outpatient follow up. Will keep drain in place now for thefistula tract to form. No need for abx on discharge. Patient was discharged home on symptomatic treatment for pain and nausea, will follow up with EGS in clinic, and was educated about close return precautions. 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 Counseling: Spoke with the patient and discussed today s findings, in addition to providing specific details for the plan of care and expected course. They were given the opportunity to ask questions. Discussed return precautions and importance of follow-up. Advised to follow-up with PCP and EGS. Advised to return to the ED for changing or worsening symptoms, new symptoms, complaint specific precautions, and precautions listed on the discharge paperwork. Jyoti Brewer MD Cosigned by Junior Garcia MD at 11/28/2024 11:57 AM EST Associated attestation - Junior Garcia MD - 11/28/2024 11:57 AM EST ATTENDING NOTE I saw and evaluated the patient. I personally obtained the vizcaino and critical portions of the historyand physical exam. I reviewed the resident's documentation and discussed the patient with the resident. I agree with the resident's medical decision making as documented in the resident's note. Junior Garcia MD [id number] Emergency department Note* Jyoti Brewer MD - 11/27/2024 12:40 PM EST Images from the original note were not included. 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 This is a 29 year old female patient, s/p emergency pLTCS for abruption +NRFS with Pre-eclampsia on11/06/24 complicated by intra-abdominal abscess s/p IR drain on 11/15/24, sent in to ED by EGS for concerns of drain migration vs bowel perforation. Patient reports that she has been having worsening abdominal pain for the past two days. Also reports that she vomited twice yesterday. She has been noticing fecal material in the drain which was the concerning part for the EDS team. No fever or chills. Abdominal pain Associated symptoms: vomiting REVIEW OF SYSTEMS Review of Systems Gastrointestinal: Positive for abdominal pain and vomiting. PAST HISTORY Pertinent Past History: Past Medical History: Diagnosis Date Intractable chronic migraine without aura and without status migrainosus 2016 complex migraine, negative MS workup, on ajovy q3mo Lesion of left nipple 02/09/2017 s/p excision of lesion + milk duct, pathology benign, 2016 mammo benign TIA (transient ischemic attack) 12/2016 presented to ED for L sided weakness, CTH/CTA/MRI wnl, vs complex migraine Patient Active Problem List: Pre-eclampsia, antepartum (HCC) [O14.90] Intraperitoneal abscess (HCC) [K65.1] Pertinent Social History: PHYSICAL EXAM BP 103/67 Pulse 89 Temp 98 F (36.7 C) (Oral) Resp 18 SpO2 98% Physical Exam Vitals reviewed. Constitutional: General: She is not in acute distress. Appearance: She is not ill-appearing, toxic-appearing or diaphoretic. HENT: Head: Normocephalic. Cardiovascular: Rate and Rhythm: Normal rate and regular rhythm. Heart sounds: Normal heart sounds. Pulmonary: Effort: Pulmonary effort is normal. Breath sounds: Normal breath sounds. Abdominal: Palpations: Abdomen is soft. Tenderness: There is generalized abdominal tenderness. There is no guarding. Skin: Findings: No rash. Neurological: General: No focal deficit present. Mental Status: She is alert and oriented to person, place, and time. MEDICAL DECISION MAKING and ED COURSE Review of External (Non- ED) Notes: Office visit from EGS today reviewed and shows: 29 year old woman with intraabdominal hematoma and abscess after urgent low transverse for placental abruption that was treated with IR drain placement. Patient reports ongoing purulo-feculent drainage with gas in bag that is concerned to me for either drain migration into the colon or a heretofore undetected colonic injury - last CT scan on 11/19 did not have contrast within the colon. I'm sending her to ED for IR drain study to determine drain location. She may also need repeat CT a/p with IV and rectal contrast to re-evaluation the abscess. Discussion with External Provider: Oriental Medicine Practitioner from [facility] service recommends IR fistulagram and CT A/P Medication Management: Medications prescribed - see visit medications. Independent Test Interpretation: Lab studies reviewed, please see ED course Junior Garcia Course: ED Course as of 11/27/24 1250 MonNov 27, 2024 1244 WBC(!): 13.1 Leukocytosis present [KS] 1245 Hemoglobin(!): 9.8 Hgb around baseline [KS] 1245 Magnesium(!): 1.6 Mild hypomagnesemia [KS] 1245 Hepatic Function Panel(!): Albumin 3.7 Bilirubin, Direct <0.05 Bilirubin, Total 0.2(!) Alkaline Phosphatase 92 ALT (SGPT) 14 AST (SGOT) 14 Protein, Total 7.0 Normal LFTs [KS] 1245 Basic Metabolic Panel(!): Glucose 125(!) Sodium 136 Potassium 4.8 Carbon Dioxide 23 Chloride 100 BUN 21 Creatinine 0.80 Calcium 9.3 Anion Gap 18 Estimated GFR 101 No MARY or clinically significant abnormalities in electrolytes [KS] ED Course User Index [KS] Jyoti Brewer MD Assessment & Plan: This is a 29 year old female patient, s/p emergency pLTCS for abruption +NRFS with Pre-eclampsia on11/06/24 complicated by intra-abdominal abscess s/p IR drain on 11/15/24, sent in to ED by EGS for concerns of drain migration vs bowel perforation. Patient is well appearing, no acute distress. However, seems in pain so was given IV pain medications and antiemetics in ED. HDS, vitals within normal. Abdomen with generalized tenderness but no peritoneal signs. On labs, patient has mild leukocytosis of 13.1. No MARY or clinically significant abnormalities in electrolytes. Magnesium was 1.6 which was replaced. Fistulagram was done by IR team and showed Findings consistent with colonic fistula. EGS recommended CT A/P with IV contrast. CT A/P with contrast showed: 1. The fistulous communication between the percutaneous drainage catheter in the right anterolateral peritoneal cavity at the level of the ascending colon demonstrated on recent sinogram appears contained between the catheter and the right colon as the contrast previously administered via the catheter is contained within the lumen of the right colon from cecum to the hepatic flexure without extravasation. 2. Significant improvement and near resolution of the complex air and fluid collection surrounding the percutaneous drainage catheter with a tiny 1.3 cm residual collection remaining. EGS team recommended discharge home with outpatient follow up. Will keep drain in place now for thefistula tract to form. No need for abx on discharge. Patient was discharged home on symptomatic treatment for pain and nausea, will follow up with EGS in clinic, and was educated about close return precautions. 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 Counseling: Spoke with the patient and discussed today s findings, in addition to providing specific details for the plan of care and expected course. They were given the opportunity to ask questions. Discussed return precautions and importance of follow-up. Advised to follow-up with PCP and EGS. Advised to return to the ED for changing or worsening symptoms, new symptoms, complaint specific precautions, and precautions listed on the discharge paperwork. Jyoti Brewer MD Cosigned by Junior Garcia MD at 11/28/2024 11:57 AM EST Associated attestation - Junior Garcia MD - 11/28/2024 11:57 AM EST ATTENDING NOTE I saw and evaluated the patient. I personally obtained the vizcaino and critical portions of the historyand physical exam. I reviewed the resident's documentation and discussed the patient with the resident. I agree with the resident's medical decision making as documented in the resident's note. Junior Garcia MD * Bella Win APRN-CNP - 11/27/2024 11:30 AM EST Physician Triage Note The patient was seen by me in intake for a brief history and physical obtained for triage reasons only. My exam is intended to be an initial medical screening exam for disposition within our ED with limited initial orders placed, when appropriate, to expedite care by the treating team. HIPAA: Verbal permission granted from patient to discuss case, including protected health information, in front of family / friends in room at the time of the evaluation. Patient complains of concern for perforated bowel - has abd drain in place. Focused Exam: alert The patient is deemed appropriate for acute. Initial orders: iv, labs. The remainder of testing, treatment, and diagnostic plan will be assumed by the next clinician who will be seeing the patient as a primary patient, creating a plan and impression, and final disposition of the patient from the ED. I had a limited role in this case. PLEASE SEE OTHER ATTENDING/RESIDENT/PHYSICIAN/SOURCING CONSULTANT/PA NOTATION WESLY Fisher documented in this [id number] NotePhysician Triage Note The patient was seen by me in intake for a brief history and physical obtained for triage reasons only. My exam is intended to be an initial medical screening exam for disposition within our ED with limited initial orders placed, when appropriate, to expedite care by the treating team. HIPAA: Verbal permission granted from patient to discuss case, including protected health information, in front of family / friends in room at the time of the evaluation. Patient complains of concern for perforated bowel - has abd drain in place. Focused Exam: alert The patient is deemed appropriate for acute. Initial orders: iv, labs. The remainder of testing, treatment, and diagnostic plan will be assumed by the next clinician who will be seeing the patient as a primary patient, creating a plan and impression, and final disposition of the patient from the ED. I had a limited role in this case. PLEASE SEE OTHER ATTENDING/RESIDENT/PHYSICIAN/SOURCING CONSULTANT/PA NOTATION WESLY FisherThe Kings Park Psychiatric CenterNetmoda Internet Hiz[employer] [id number] Physician Emergency department Note* Bella Win APRN-CNP - 11/27/2024 11:30 AM EST Physician Triage Note The patient was seen by me in intake for a brief history and physical obtained for triage reasons only. My exam is intended to be an initial medical screening exam for disposition within our ED with limited initial orders placed, when appropriate, to expedite care by the treating team. HIPAA: Verbal permission granted from patient to discuss case, including protected health information, in front of family / friends in room at the time of the evaluation. Patient complains of concern for perforated bowel - has abd drain in place. Focused Exam: alert The patient is deemed appropriate for acute. Initial orders: iv, labs. The remainder of testing, treatment, and diagnostic plan will be assumed by the next clinician who will be seeing the patient as a primary patient, creating a plan and impression, and final disposition of the patient from the ED. I had a limited role in this case. PLEASE SEE OTHER ATTENDING/RESIDENT/PHYSICIAN/SOURCING CONSULTANT/PA NOTATION WESLY Fisher [employer] Work Phone: [phone] History of Present illness Narrative* Nedra Hurtado MD - 11/27/2024 11:14 AM EST Images from the original note were not included. [facility] - STAFF NOTE CC: post-discharge follow-up HPI: Ms. BERNADETTE Faust is a 29 year old woman here for post-discharge follow-up. She was transferred on 11/15/2024 from [facility] to [facility] L[facility] after placental abruption requiring urgent complicated by intraabdominal hematoma. EGS and IR were consulted and a percutaneous drain was placed on 11/15. EGS then signed off on 11/16. The patient was discharged to home on 11/19. The patient tells me that several days after the drain was placed (but before she was discharged), the drain output changed from whitish-yellow to brown and foul-smelling. She underwent inpatient CT a/p with IV and PO contrast - contrast did not reach colon - which demonstrated no definitive bowel injury and interval decrease in size of collection with drain in appropriate place, so she was discharged by OB team. (EGS was not reconsulted during this time). Since being at home, there has been 25-50 mL of brown, foul-smelling output that has particulate matter in it. The bag also fills with gasthat she has to burp out of the bag. She is adamant that she does not push air into the tubing orbag when she is flushing it. She has been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 follow up Pt in contact with local SW to access resource. #) DVT Prophylaxis Encourage SCDs and ambulation Continue Lovenox 40mg every day Disposition: Continue monitoring drain output in context of serial abdominal exams for sustained improving clinical status throughout day with plan for discharge this evening. Given distance form pt's home, safe discharge plan with follow-up with General Surgery and her local OB team requiring significant coordination. Sarahy Estevez MD MPH COMPUTER OPERATIONS TECHNICIAN PGY-1 Cosigned by Clotilde Cheung MD at 11/19/2024 5:01 PM EST Associated attestation - Clotilde Cheung MD - 11/19/2024 5:01 PM EST Teaching Physician Note: I saw and evaluated the patient. I personally obtained the vizcaino and critical portions of the historyand physical exam. I reviewed the resident's documentation and discussed the patient with the resident. I agree with the resident's medical decision making as documented in the resident's note. Patient feels considerably better since yesterday. Will arrange for outpatient management and discharge. Clotilde Cheung MD * Bozena Zamora RN - 11/19/2024 6:02 AM EST 0534: fasting blood sugar 126 per glucometer. * Bozena Zamora RN - 11/19/2024 5:56 AM EST 0555: Pt to CT with transport. 0612: Pt back from CT. * Bozena Zamora RN - 11/19/2024 4:34 AM EST 0430 Received PO contrast from CT. 0435: PO contrast given to pt. 0445: Pt finished drinking contrast. civil geotechnical engineer notified. * Darling Keith RN - 11/18/2024 3:00 PM EST Drain output 240 cc of smelly dark green drainage. Dr Rose over to access pt. CT scan ordered. Drain tubing flushed with 10 cc of NS * Sarahy Estevez MD - 11/18/2024 7:10 AM EST APU Progress Note 11/18/2024 7:10 AM S: No acute events overnight. Pt called out with nausea that was relieved with Reglan. Pt is asleepthis morning. Upon waking, pt endorses improving abdominal pain this morning. Pt passed another bowel movement. She denies vaginal discharge, increased bleeding, nausea, emesis, and dysuria. O: BP 147/85 (BP Location: left arm) Pulse 93 Temp 98.4 F (36.9 C) (Oral) Resp 18 SpO2 99% No Tmax (24 hours): 99.3 F (37.4 C) Blood pressure over the past 24 hours, as of 11/18/2024 7:10 AM: Systolic (24hrs), Av , Min:121 , Max:148 Diastolic (24hrs), Av, Min:81, Max:89 Gen: NAD, alert and oriented Abd: soft, tender with palpation in upper quadrants/ND, no suprapubic tenderness Ext: BLE edema, no calf tenderness SVE deferred A/P: BERNADETTE Faust is a 29 year old now POD#12 s/p emergent pLTCS with post-op course c/b intraperitoneal abscess POD#3 s/p IR drain. #Intraperitoneal abscess - CT AP at OSH with 4.9 x 6.9 x 5.6 cm collection at RUQ/ hemicolon. - Repeat CT on 11/15/2024 - Afebrile, non-tachycardic, WBC 15.6, Hgb 10.2 - s/p EGS & IR Consult, IR drainage 11/15 - 30ccs of purulent fluid was aspirated - Recommend Flexeril and Lidocaine patch for pain pain control; ordered - Culture grew bacteroides - Drain output decreasing Drain flushes BID Transition IV Zosyn 3.375 mg q6hr to PO Augmentin 875-125 mg BID for 8 additional days Continue pain control with acetaminophen and motrin, PRN flexeril, lidocaine patches /10 by score Continue bowel regimen with miralax #Preeclampsia with severe features - s/p 24hrs Mg at OSH - s/p IV labet 20mg @ 2317 on 11/14; IV labet 40mg @ 0100 on 11/15 - 24hr BPs 120-140s/80s Continue regimen: Adalat 30mg BID, Labetalol 200 mg BID #T2DM - Admit HgbA1c 10 - Not insulin previously - Post-prandials blood sugars elevated; fasting 80 - S/p Insulin administration education Current regimen Metformin 1000 mg daily and Lantus 14u at bedtime Arrange to receive glucose monitoring supplies #Hx Bipolar disorder - Patient reports taking adderall 20mg BID, and aprazolam PRN - OARRS report with no evidence of the above prescriptions in the last year Continue Lamictal 25 mg daily #Limited care, +Utox - 11/06/2024 tox positive for amphetamine, benzodiazepines, ecstasy, opioids. Opioids potentially dueto anesthesia during C/S. SW consulted to arrange transportation #) - s/p pLTCS due to abruption, EBL >1000, received pRBCs per patient. - Rh+/Rubella equivical MMR ordered - Formula feeding, baby in NICU at outside facility - Contraception: none - 11/06/24 preliminary HIV Ab screen reactive, VL <20 at OSH. 11/15/24 HIV antibody on admit negative. #) DVT Prophylaxis Encourage SCDs and ambulation Continue Lovenox 40mg every day Disposition: Discharge today with close follow up with General Surgery and her OB team. Sarahy Estevez MD MPH COMPUTER OPERATIONS TECHNICIAN PGY-1 Cosigned by Clotilde Cheung MD at 11/18/2024 12:08 PM EST Associated attestation - Clotilde Cheung MD - 11/18/2024 12:08 PM EST Teaching Physician Note: I saw and evaluated the patient. I personally obtained the vizcaino and critical portions of the historyand physical exam. I reviewed the resident's documentation and discussed the patient with the resident. I agree with the resident's medical decision making as documented in the resident's note. The patient continues to have pain in all quadrants of her abdomen. The tube is draining a small amount of yellow fluid. Due to abdominal discomfort, will not discharge the patient today. This patient lives over an hour away from the hospital and does not have transportation. Will attempt to arrange for followup care closer to home. Patient to shower and walk today. Will need to manage ADL's prior to discharge. Clotilde Cheung MD * Demi Cedeno LSW - 11/17/2024 2:12 PM EST SW Coverage Note SW continuing to follow due to consult from medical team received 11/15 for JOE concerns. SW met with pt at bedside this AM to discuss JOE resources and supports. Pt denied any JOE hx, citing any narcotics she has taken have been prescribed to her by doctors during hospitalizations and denied positive tox screens. Pt reported living with her boyfriend in the [place] area (pt's baby is admitted to local hospital there). Pt reports feeling safe at home and having all supplies. Pt denied futher SDOH concerns except need for transportation to follow up medical care, as boyfriend works and cannot transporther to for follow up care during the daytime. Pt lives outside of [facility]. Pt is currently uninsured and needs financial assessment. Pt reports she met with a Swer at OSH in [place] and completed a Medicaid lazaro. Per FYI notes, admitting attempted to see pt but was not able to meet with her. SW provided phone number for financial counseling for pt to follow up with for Rating vs. Follow up on Medicaid lazaro to see if pt received a pending #. LUPE Duque, MLSP, INSURANCE DEFENSE ATTORNEY PRN [employer] Operator * Genesis Samuels MD - 11/17/2024 6:51 AM EST APU Progress Note 11/17/2024 6:51 AM S: No acute events overnight. Pt is asleep this morning. Upon waking, pt endorses improving abdominal pain this morning. Last night passed firm BM and gas with discomfort. She denies vaginal discharge, increased bleeding, nausea, emesis, and dysuria. O: BP 140/88 (BP Location: left arm) Pulse 91 Temp 98.8 F (37.1 C) (Oral) Resp 15 SpO2 97% No Tmax (24 hours): 98.9 F (37.2 C) Blood pressure over the past 24 hours, as of 11/17/2024 6:51 AM: Systolic (24hrs), Av , Min:129 , Max:141 Diastolic (24hrs), Av, Min:79, Max:90 Gen: NAD, alert and oriented Abd: soft, tender with palpation in upper quadrants/ND, no suprapubic tenderness Ext: BLE edema, no calf tenderness SVE deferred A/P: BERNADETTE Faust is a 29 year old now POD#11 s/p emergent pLTCS with post-op course c/b intraperitoneal abscess POD#2 s/p IR drain #Intraperitoneal abscess - CT AP at OSH with 4.9 x 6.9 x 5.6 cm collection at RUQ/ hemicolon. - Repeat CT on 11/15/2024 - Afebrile, non-tachycardic, WBC 15.6, Hgb 10.2 - s/p EGS & IR Consult, IR drainage 11/15 - 30ccs of purulent fluid was aspirated - Recommend Flexeril and Lidocaine patch for pain pain control; ordered - Drain output decreasing Drain flushes BID Transition IV Zosyn 3.375 mg q6hr to PO Augmentin 875-125 mg BID for 8 additional days Continue pain control with acetaminophen and motrin, PRN flexeril, lidocaine patches /10 by score Continue bowel regimen with miralax #Preeclampsia with severe features - s/p 24hrs Mg at OSH - s/p IV labet 20mg @ 2317 on 11/14; IV labet 40mg @ 0100 on 11/15 - Bps 140s/80s -- Patient with frontal headache -- IV Reglan, PO periactin and Tylenol PRN Continue regimen: Adalat 30mg BID, Labetalol 200 mg BID #T2DM - Admit HgbA1c 10 - Not insulin previously - Post-prandials blood sugars elevated; fasting 80 Current regimen Metformin 1000 mg daily and Lantus 14u at bedtime Insulin administration education #Hx Bipolar disorder - Patient reports taking adderall 20mg BID, and aprazolam PRN - OARRS report with no evidence of the above prescriptions in the last year Continue Lamictal 25 mg daily #Limited care, +Utox - 11/06/2024 tox positive for amphetamine, benzodiazepines, ecstasy, opioids. Opioids potentially dueto anesthesia during C/S. SW consulted to arrange transportation #) - s/p pLTCS due to abruption, EBL >1000, received pRBCs per patient. - Rhpos/Requiv MMR ordered - Formula feeding, baby in NICU at outside facility - Contraception: none - 11/06/24 preliminary HIV Ab screen reactive, VL <20 at OSH. 11/15/24 HIV antibody on admit negative. #) DVT Prophylaxis -- Lovenox 40mg every day -- Encourage SCDs and ambulation Disposition: Discharge today with close follow up . Sarahy Estevez MD MPH COMPUTER OPERATIONS TECHNICIAN PGY-1 MFM Attending Antepartum Progress Note 11/17/2024 I saw and evaluated the patient independently. I discussed the patient with Dr. Estevez. The completeOB record and inpatient history was reviewed and discussed with the resident. I agree with the resident s documentation above, except as noted below. ATTENDING HISTORY: S: Patient still reports pain in her abd, slightly better compared to yesterday. DATA PERSONALLY REVIEWED O: vitals reviewed, tm 37.1, Blood pressure over the past 24 hours, as of 11/17/2024 Systolic (24hrs), Av , Min:132 , Max:141 Diastolic (24hrs), Av, Min:79, Max:90 Gen: NAD, comfortable in bed Abd: soft, no guarding/ rebound. Tender over CS insision and at the drain site, area is soft Ext: no calf tenderness b/l, no edema Drain cultures: ngtd A/P: BERNADETTE Faust is a 29 year old POD#11 s/p emergent pLTCS with post-op course c/b intraperitoneal abscess now POD#2 s/p IR drain Abscess--cultures ngtd. Has been on zosyn for 48h, will transition to PO augmentin Appreciate gen surg in put. Plan to follow up with them in a week for drain removal. 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 I spent approximately 18 minutes of floor unit time on this patient visit. Genesis Samuels MD / [id number] MFM Attending/ p [phone] * Genesis Samuels MD - 11/16/2024 8:45 AM EST Images from the original note were not included. MFM Attending Antepartum Progress Note 11/16/2024, 8:45 AM. Pt seen at 0740 ATTENDING HISTORY: S: Patient c/o h/a and pain in her abd at the site of the drain and her CS. Reports a h/o migrainesat home DATA PERSONALLY REVIEWED O: vitals reviewed, tm 36.8, VSS Gen: NAD, comfortable in bed Abd: soft, pt reports diffuse tenderness to light touch. No guarding/rebound Inc: CS site c/d/I, drain site covered with dressing, scant purulent material in the drain bag Ext: no calf tenderness b/l, no edema Cultures: ngtd Fingerstick Glucose Glucose 11/16/24 0636 97 11/15/24 2206 150 Comment: Follow Protocol
Notified RN PHILL MALIK
11/15/24 2006 83 11/15/24 1620 137 11/15/24 1443 213 A/P: BERNADETTE Faust is a 29 year old POD#10 s/p emergent pLTCS with post-op course c/b intraperitoneal abscess now POD#1 s/p IR drain Abscess--appreciate IR assistance. Drain placed yesterday. Cultures pending. Will continue on zosynpending cultures Gen surg saw patient and discussed her with me. Again reviewed images and do NOT think there was a bowel perforation. Recommend leaving drain in for a week For flexeril, lidocaine patches --CS healing well, not , reports baby doing well in the NICU PreE with SF--currently normotensive to mild range, cont nifedipine 30mg XL BID and labetalol 200mgBID Migraines--for reglan, tylenol, and will have PRN sumatriptan DM II--started on lantus 14u at bedtime yesterday, fasting 97 this AM, will cont lantus for now along with her merformin 1000mg BID H/o Bipolar--pt reports multiple meds, none noted in her chart/OARRS. Currently appropriate mood, consider psych consult Recent Pos UTox--for SW consult Plan: cont zosyn, await cultures, will address pain (abd and h/a) I personally explained the management plan with the pt. I spent approximately 20 minutes of floor unit time on this patient visit. Genesis Samuels MD / [id number] [facility] Attending/ p [phone] * Annie Parker APRN-[facility] - 11/16/2024 8:25 AM EST Images from the original note were not included. GENERAL INFORMATION EMERGENCY GENERAL SURGERY NOTE Patient Name: BERNADETTE Faust Admission Date: 11/14/2024 Patient seen and examined on 11/16/2024 INTERVAL HISTORY/EVENTS Background Narrative: Ms Faust is a 29 yo F with a hx of Type II DM and pre-eclampsia who underwent an emergent at 34 weeks for placental abruption (11/06- Baby bot- osei- baby still in NICU in [facility]). She was worked up at an OSH for RUQ abdominal pain and found to have a RUQ fluid collection con cering for an intra-abdominal abscess. She was transferred to [facility] for possible IR drainage ofthis collection. Hospital Course/Procedures: 11/15- Transfer from [place], IR drain placed with 30 mL purulent fluid aspirated likely related to infected hematoma Events in last 24 hours: No acute events overnight. Patient continues to report abdominal pain with palpation, though non-peritonitic. Tolerating PO intake, passing flatus this morning. Not pumping or , remains in NICU. PHYSICAL EXAM Vitals: Vital sign ranges over the past 24 hours (retrieved 11/16/2024 at 8:25 AM): Tmax (24 hours): 98.2 F (36.8 C) Pulse Av.3 Min: 79 Max: 102 Systolic (24hrs), Av , Min:113 , Max:139 Diastolic (24hrs), Av, Min:66, Max:91 No data recorded Resp Av.3 Min: 14 Max: 24 SpO2 Av.6 % Min: 93 % Max: 99 % 24 Hour Input/Output In: 675 [I.V.:675] Out: 3185 [Urine:3075; Drainage:110] Net: -[id number] PHYSICAL EXAM GENERAL: Laying in bed, no acute distress NEURO: GCS 15, no focal deficits. Reporting headache. CARDIOVASCULAR: RRR; Radial/DP pulses palpable to palpation. Euvolemic, no peripheral edema PULMONARY: Breathing easily on RA, no use of accessory muscles ABDOMINAL: Diffusely tender to palpation; abdomen is distended though remains soft. Non-peritonitic. RUQ drain with small amount of purulent drainage. Well- healing transverse incision, no s/s of infection EXTREMITIES: Moves all extremities, ambulatory SKIN: Warm, dry LABORATORY RESULTS (LAST 24 HOURS) CBC/PT/INR 11/15/2024 11:30 AM WBC 14.5 RBC 3.56 Hgb 9.6 Hct 28.9 MCV 81 RDW 17.2 Plt 457 Basic Metabolic Panel No lab values to display. Arterial Blood Gases None IMAGING RESULTS - Last 24 hours (PERSONALLY REVIEWED) CT ABDOMEN/PELVIS W/ CONTRAST EXAMINATION: CT ABDOMEN/PELVIS W/ CONTRAST 11/15/2024 01:07 PM CLINICAL HISTORY: Abdominal pain; concern for bowel perf postoperative ASSOCIATED DIAGNOSIS: Postprocedural intraabdominal abscess (HCC) Postprocedural intraabdominal abscess (HCC) ORDERING PROVIDER: JUANY MUHAMMAD TECHNOLOGISTS NOTE: Patient was panicked during her cat scan, to the point she was not listening toinstructions and arguing with the technologists of what to do. Moving around and hollering at the top of her lungs, screaming at us to hurry up but was unwilling to let us do what we needed to do in a timely fashion to get her set up for her scan. We explained multiple times what we needed to do and why it was ordered the way it was. Patient eventually let us do our job to get the best images possible for her situation. COMPARISON: Compared to the prior CT of the abdomen and pelvis dated 11/14/2024. TECHNIQUE: Contiguous axial images were obtained through the abdomen and pelvis from the level of the diaphragmatic domes through the pubic symphysis following bolus administration of intravenous contrast. MPR sagittal and coronal reconstructions were obtained from the axial data. Before infusion of intravenous contrast, radiology personnel investigated the possibility of an allergic history and of any history of reaction to iodinated contrast material. Contrast Protocol: Omnipaque 350 [>or =100lb] 100 ml [<100 lb] 1 ml per 1 lb. INTRA-PROCEDURE MEDS: iohexol (OMNIPAQUE) 300 MG/ML injection 50 mL Route: Rectal iohexol (OMNIPAQUE) 300 MG/ML injection 50 mL Route: Oraliohexol (OMNIPAQUE) 350 MG/ML injection 100 mL Route: Intravenous Push FINDINGS: Included images of the lower thorax: There is mild patchy subsegmental airspace opacity within the posterior inferior recesses of both lower lobes that is greater on the left consistent with atelectasis. The remaining visualized lung bases are clear and interstitial markings are normal with no evidenceof pleural disease. The visualized cardiac structures are grossly normal. Hepatobiliary: The liver is normal in size and shape and mildly decreased in density with respect to the spleen. There is no evidence of focal lesions or abnormal enhancement and the liver is unchanged and otherwise normal. The gallbladder is distended with no evidence of gallstones or inflammatory change and the intrahepatic and extrahepatic bile ducts are normal. Pancreas: The pancreas is normal in size and shape with no evidence of focal lesions, abnormal enhancement or ductal dilatation. Spleen: The spleen is normal in size, shape and density with no evidence of focal lesions or abnormal enhancement. Adrenal Glands: The adrenal glands are normal in size and shape with no evidence of focal lesions or abnormal enhancement. Kidneys, ureters, and bladder: The kidneys are normal in size and shape with no evidence of focal lesions, abnormal enhancement or renal stones. The visualized intrarenal and extrarenal collecting systems and ureters are grossly normal with no evidence of ureterolithiasis. The bladder is moderately collapsed and grossly normal with no evidence of bladder stones. Abdominal and pelvic vasculature: The abdominal aorta is normal in caliber and course with no evidence of atherosclerotic change. The celiac, superior mesenteric, renal and iliac arteries are normal. The inferior vena cava and portal venous system are normal. GI tract: The stomach is moderately collapsed and grossly normal. The duodenum is not opacified with oral contrast and grossly normal. The small bowel is opacified with oral contrast and normal with no evidence of obstruction or inflammatory change. There is mild diverticulosis of the redundant sigmoid colon within the right lower abdomen with no evidence of diverticulitis. A rectal tube is in place and rectal contrast is present to the level of the cecum, mixing with a moderate amount of gas and stool. There is no extravasation of the oral or rectal contrast and the large bowel and rectum are normal. The appendix is not visualized and there is a relatively stable lobulated gas and fluid collection within the anterolateral right abdomen just below the liver and anterolateral to the cecum (axial image 77 and coronal image 55) measuring 90 x 40 x 99 mm that moderately compresses the cecum and hepatic flexure. Peritoneum and retroperitoneum: There is a trace amount free fluid within the the right subhepatic region within both pericolic gutters. There is a small amount of free fluid within the cul-de-sac and posterior pelvis surrounding the uterus. There is no evidence of free air throughout the abdomen and pelvis. Lymph Nodes: There is no evidence of adenopathy throughout the abdomen and pelvis. Uterus and adnexa: The uterus is enlarged, measuring 138 x 75 x 110 mm and the endometrial canal measures 16 mm in thickness with heterogeneous internal density. The visualized ovaries and adnexa are grossly normal. Visualized musculoskeletal structures: The bones are normally mineralized throughout study and the visualized vertebral bodies, pedicles and posterior lamina are intact and the lumbar vertebral body heights are normal. There is mild to moderate degenerative change throughout the lumbar spine is greatest at L4-5 and L5-S1. There is mild degenerative change of the sacroiliac joints and hip joints and the remaining bony pelvis and sacrum are normal. There is decrease mild subcutaneous edema throughout the anterior mid to lower abdominal wall that extends into the lateral abdominal wall and flank regions, which is greater on the left. The muscular and remaining visualized soft tissue structures of the body wall, pelvic and hip regions are normal. IMPRESSION: 1. There is a slightly lobulated complex gas and fluid collection anterolateral to the cecum and right colon just below liver that is worrisome for an abscess and does not communicate with the adjacent contrast enhanced large bowel. This could represent a periappendiceal abscess as the appendix is not visualized. 2. There are trace amounts of free fluid within both pericolic gutters and subhepatic region and a small amount of free fluid within the pelvis and cul-de-sac surrounding the uterus. 3. The endometrial canal is thickened and there is heterogeneous density within the endometrial canal. Retained products of conception cannot be excluded and pelvic sonography is recommended. 4. There is mild diverticulosis of the redundant sigmoid colon with no evidence of diverticulitis. 5. There is mild fatty change of the liver. 6. There is no evidence of adenopathy. 7. There is distention of the gallbladder, which is a nonspecific finding and gallbladder sonography is recommended. 8. The remaining solid organs and remaining bowel are normal. 9. There are additional findings as described above. MACRO: None XR ABDOMEN AP 1 VIEW EXAMINATION: XR ABDOMEN AP 1 VIEW 11/15/2024 10:45 AM CLINICAL HISTORY: evaluate for contrast outside of bowel ASSOCIATED DIAGNOSIS: Postprocedural intraabdominal abscess (HCC) Postprocedural intraabdominal abscess (HCC) ORDERING PROVIDER: JUANY MUHAMMAD TECHNOLOGISTS NOTE: COMPARISON: CT BODY IMAGE IMPORT(VIET) 11/14/2024, 2:56 PM FINDINGS: Intestinal gas pattern: Nonobstructive without definite pneumatosis intestinalis/coli. Faint retained contrast and moderate to large amount of stool in the right hemicolon and moderate to large amount of stool in the descending colon. Liver and spleen: No hepatosplenomegaly, pneumobilia or portal gas. Peritoneum: Bubbly gas pattern adjacent to the hepatic flexure of the colon, compatible with known abdominal abscess, without definite evidence of large bowel contrast extravasation into this region. Calcifications: No pathologic intra-abdominal calcification. Miscellaneous: Mid right abdominal surgical clips. Osseous structures: Unremarkable. Abdominal wall: Unremarkable. Included lower chest: Grossly clear lung bases. IMPRESSION: 1. Nonobstructive intestinal gas pattern. 2. Moderate stool burden. 3. Bubbly gas pattern adjacent to the hepatic flexure of the colon, compatible with known abdominalabscess, without definite evidence of large bowel contrast extravasation into this region. MACRO: None US RETROPERITONEAL LIMITED EXAMINATION: US RETROPERITONEAL LIMITED 11/15/2024 09:45 AM CLINICAL HISTORY: RUQ abscess ASSOCIATED DIAGNOSIS: Pre-eclampsia, antepartum (HCC) ORDERING PROVIDER: JUANY MUHAMMAD COMPARISON: CT BODY IMAGE IMPORT(VIET) 11/14/2024, 2:56 PM TECHNIQUE: Ultrasound real time scan with image documentation of the distended urinary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 office, but they have refused to remove this drain as they did not insert it. Dr. Estevez also reported Pt will be connected with a local SW as well. SW informed inpatient [facility] and Dr. Estevez that this SW will schedule Lyft for Pt's appointment on 11/27.DULCE MARIA scheduled Lyft and sent Pt a flexible link. DULCE MARIA attempted to reach Pt via telephone call to inform her of scheduled ride. DULCE MARIA LVM for Pt providing SW contact information. Plan: SW will remain available. ASHLY Church LSW Outpatient [employer] Operator [phone] documented in this [id number] NoteEXAMINATION: CT ABSCESS DRAINAGE (VIET) 11/15/2024 05:35 PM CLINICAL HISTORY: Rad Procedure required: = Intra-abdominal abscess drainage,abscess ASSOCIATED DIAGNOSIS: Postprocedural intraabdominal abscess (HCC) Postprocedural intraabdominal abscess (HCC) ORDERING PROVIDER: JANNA CARRASCO TECHNOLOGISTS NOTE: Moderate Intra-Service Sedation: Start Time: 1653 End Time: 1716 Total Versed: 1 mg Total Fentanyl: 100 mcg ATTENDING PHYSICIAN: Chica Andres RESIDENT/FELLOW PHYSICIAN: Becky Zayas INTRA-PROCEDURE MEDS: SEDATION TIME: Start time: 4:53 PM Stop time: 5:17 PM INFORMED CONSENT: Written informed consent was obtained. The procedure, risks, benefits, and alternatives were discussed. All questions were answered. TIMEOUT: Physician led timeout was conducted documenting correct patient, procedure, site, fire risk, antibiotics and allergies. COMPLICATIONS: None ESTIMATED BLOOD LOSS: Less than 10 mL TECHNIQUE: After the risks, benefits, and alternatives were explained to the patient, informed consent was obtained and a timeout was performed. The patient was positioned supine on the CT table for imaging guidance. Axial CT images were obtained through the area of interest and the patient's skin was marked.The patient's skin was then prepped and draped in the usual sterile fashion. Under CT guidance, a 5 [place]an Yueh catheter was advanced into the right lower quadrant collection via a right anterolateral approach. A 0.035 Amplatz wire was advanced through the catheter, with subsequent removal of the catheter and serial dilatations over the wire. A 12 [place]ankan drainage catheter was then advanced over the wire into the fluid collection. Approximately 50 cc of purulent fluid was aspirated. The drainage catheter was then secured to the skin. The site was dressed in the usual aseptic fashion. The patient tolerated the procedure well without immediate complication. FINDINGS: Initial images identify the fluid collection within the right lower quadrant pericolonic fluid collection. . Images made during the procedure demonstrate guide needle position within the collection. Post procedure images fail to show complication. IMPRESSION: Technically successful placement of a 12 [place]ankan pigtail catheter into a right lower quadrant fluid collection. OF NOTE, PREPROCEDURAL IMAGING IS HIGHLY CONCERNING FOR COLONIC PERFORATION. MACRO: None I have personally reviewed the images and agree with the resident's interpretation.The [employer] [id number] NoteEXAMINATION: CT ABSCESS DRAINAGE (VIET) 11/15/2024 05:35 PM CLINICAL HISTORY: Rad Procedure required: = Intra-abdominal abscess drainage,abscess ASSOCIATED DIAGNOSIS: Postprocedural intraabdominal abscess (HCC) Postprocedural intraabdominal abscess (HCC) ORDERING PROVIDER: JANNA CARRASCO TECHNOLOGISTS NOTE: Moderate Intra-Service Sedation: Start Time: 1653 End Time: 1717 Total Versed: 1 mg Total Fentanyl: 100 mcg ATTENDING PHYSICIAN: Chica Andres RESIDENT/FELLOW PHYSICIAN: Becky Zayas INTRA-PROCEDURE MEDS: SEDATION TIME: Start time: 4:53 PM Stop time: 5:17 PM INFORMED CONSENT: Written informed consent was obtained. The procedure, risks, benefits, and alternatives were discussed. All questions were answered. TIMEOUT: Physician led timeout was conducted documenting correct patient, procedure, site, fire risk, antibiotics and allergies. COMPLICATIONS: None ESTIMATED BLOOD LOSS: Less than 10 mL TECHNIQUE: After the risks, benefits, and alternatives were explained to the patient, informed consent was obtained and a timeout was performed. The patient was positioned supine on the CT table for imaging guidance. Axial CT images were obtained through the area of interest and the patient's skin was marked.The patient's skin was then prepped and draped in the usual sterile fashion. Under CT guidance, a 5 [place]ankan Yueh catheter was advanced into the right lower quadrant collection via a right anterolateral approach. A 0.035 Amplatz wire was advanced through the catheter, with subsequent removal of the catheter and serial dilatations over the wire. A 12 [place]ankan drainage catheter was then advanced over the wire into the fluid collection. Approximately 50 cc of purulent fluid was aspirated. The drainage catheter was then secured to the skin. The site was dressed in the usual aseptic fashion. The patient tolerated the procedure well without immediate complication. FINDINGS: Initial images identify the fluid collection within the right lower quadrant pericolonic fluid collection. . Images made during the procedure demonstrate guide needle position within the collection. Post procedure images fail to show complication. IMPRESSION: Technically successful placement of a 12 [place]ankan pigtail catheter into a right lower quadrant fluid collection. OF NOTE, PREPROCEDURAL IMAGING IS HIGHLY CONCERNING FOR COLONIC PERFORATION. MACRO: None I have personally reviewed the images and agree with the resident's interpretation. [id number] Plan of care note* Care Plan Note - Bozena Zamora RN - 11/18/2024 9:08 PM EST Problem: Routine Care: Goal: Patient care will be managed and maintained throughout hospital stay per unit specific routine care procedure Outcome: Progressing Problem: Hypertensive Disorder in : Goal: Risk for seizure in will be minimized Outcome: Progressing Problem: Fluid and Electrolyte Imbalance: Goal: Adequate fluid and electrolyte balance will be achieved and maintained Outcome: Progressing Problem: Infection: Goal: Will be free of signs and symptoms of infection Outcome: Progressing Problem: Coping: Goal: Ability to identify and develop effective coping behavior will improve and/or be maintained Outcome: Progressing Problem: Knowledge Deficit: Goal: Ability to make informed decisions regarding treatment will improve Outcome: Progressing Problem: Acute Pain: Goal: Ability to identify pain intensity on a pain scale and rate it consistently will be achieved and maintained Outcome: Progressing Goal: Acceptable level of pain which allows the patient to achieve functional outcome goals Outcome: Progressing Goal: Ability to identify factors that manage or decrease pain will be achieved Outcome: Progressing Pt rating pain 5/10 on numeric pain scale. Pt verbalizes understanding of interventions. Problem: Safety: Goal: Patient will remain free of falls during hospital stay Outcome: Progressing Goal: Free from injury during hospitalization Outcome: Progressing Side rails up times two, bed locked in lowest position, call gomez within reach, non slip socks applied Problem: Discharge Planning: Goal: Discharge needs of the adult patient will be met Outcome: Progressing [id number] Miscellaneous Notes* Care Plan Note - Bozena Zamora RN - 11/18/2024 9:08 PM EST Problem: Routine Care: Goal: Patient care will be managed and maintained throughout hospital stay per unit specific routine care procedure Outcome: Progressing Problem: Hypertensive Disorder in : Goal: Risk for seizure in will be minimized Outcome: Progressing Problem: Fluid and Electrolyte Imbalance: Goal: Adequate fluid and electrolyte balance will be achieved and maintained Outcome: Progressing Problem: Infection: Goal: Will be free of signs and symptoms of infection Outcome: Progressing Problem: Coping: Goal: Ability to identify and develop effective coping behavior will improve and/or be maintained Outcome: Progressing Problem: Knowledge Deficit: Goal: Ability to make informed decisions regarding treatment will improve Outcome: Progressing Problem: Acute Pain: Goal: Ability to identify pain intensity on a pain scale and rate it consistently will be achieved and maintained Outcome: Progressing Goal: Acceptable level of pain which allows the patient to achieve functional outcome goals Outcome: Progressing Goal: Ability to identify factors that manage or decrease pain will be achieved Outcome: Progressing Pt rating pain 5/10 on numeric pain scale. Pt verbalizes understanding of interventions. Problem: Safety: Goal: Patient will remain free of falls during hospital stay Outcome: Progressing Goal: Free from injury during hospitalization Outcome: Progressing Side rails up times two, bed locked in lowest position, call gomez within reach, non slip socks applied Problem: Discharge Planning: Goal: Discharge needs of the adult patient will be met Outcome: Progressing * Care Plan Note - Darling Keith RN - 11/18/2024 5:36 PM EST Problem: Routine Care: Goal: Patient care will be managed and maintained throughout hospital stay per unit specific routine care procedure Outcome: Progressing Care provided per routine [facility] standard of procedure Problem: Hypertensive Disorder in : Goal: Risk for seizure in will be minimized Outcome: Progressing BP stable. Antihypertensive given as ordered. Problem: Fluid and Electrolyte Imbalance: Goal: Adequate fluid and electrolyte balance will be achieved and maintained Outcome: Progressing Voiding QS per pt. Tolerating regular diet. Problem: Infection: Goal: Will be free of signs and symptoms of infection Outcome: Progressing Afebrile. Antibiotics given as ordered. Drainage bag with increased output. CT Scan ordered. Problem: Coping: Goal: Ability to identify and develop effective coping behavior will improve and/or be maintained Outcome: Progressing Pt speaking on phone with family Problem: Knowledge Deficit: Goal: Ability to make informed decisions regarding treatment will improve Outcome: Progressing Pt kept updated on POC. Questions answered. Problem: Acute Pain: Goal: Ability to identify pain intensity on a pain scale and rate it consistently will be achieved and maintained Outcome: Progressing Pt with C/O pain by incision site, drain site and HERNADEZ. Medicated as needed. Some relief obtained. Goal: Acceptable level of pain which allows the patient to achieve functional outcome goals Outcome: Progressing Goal: Ability to identify factors that manage or decrease pain will be achieved Outcome: Progressing Problem: Safety: Goal: Patient will remain free of falls during hospital stay Outcome: Progressing Safe environment maintained. Call gomez within reach. Goal: Free from injury during hospitalization Outcome: Progressing Problem: Discharge Planning: Goal: Discharge needs of the adult patient will be met Outcome: Progressing POC ongoing. * Care Plan Note - Kalyani aMc RN - 11/18/2024 6:24 AM EST Problem: Routine Care: Goal: Patient care will be managed and maintained throughout hospital stay per unit specific routine care procedure Outcome: Progressing Unit routine implemented- pt oriented to room, call gomez, care channel. Patient care will be managed and maintained throughout hospital stay per unit specific routine care procedure Orders being followed. Problem: Hypertensive Disorder in : Goal: Risk for seizure in will be minimized Outcome: Progressing Patient blood pressures taken per protocol. Problem: Fluid and Electrolyte Imbalance: Goal: Adequate fluid and electrolyte balance will be achieved and maintained Outcome: Progressing Adequate fluid and electrolyte balance will be achieved and maintained IV fluids infusing as ordered. Lab work drawn and sent as ordered. Problem: Infection: Goal: Will be free of signs and symptoms of infection Outcome: Progressing Patient receiving antibiotics per order. Patient afebrile. Problem: Coping: Goal: Ability to identify and develop effective coping behavior will improve and/or be maintained Outcome: Progressing Pt coping well while in labor and delivery. Plan to continue to offer support and education as needed. Problem: Knowledge Deficit: Goal: Ability to make informed decisions regarding treatment will improve Outcome: Progressing Pt verbalizes understanding of POC. All questions answered. Problem: Acute Pain: Goal: Ability to identify pain intensity on a pain scale and rate it consistently will be achieved and maintained Outcome: Progressing Goal: Acceptable level of pain which allows the patient to achieve functional outcome goals Outcome: Progressing Goal: Ability to identify factors that manage or decrease pain will be achieved Outcome: Progressing Problem: Safety: Goal: Patient will remain free of falls during hospital stay Outcome: Progressing Goal: Free from injury during hospitalization Outcome: Progressing Side rails up times two, bed locked in lowest position, call gomez within reach, non slip socks applied. Problem: Discharge Planning: Goal: Discharge needs of the adult patient will be met Outcome: Progressing No discharge concerns at this time. All questions answered. Pt verbalizes understanding of discharge disposition. * Progress Notes - Joyce - Jeff Renteria RN - 11/17/2024 3:11 PM EST Educated pt on a diabetic diet including amounts needed from each food group. Provided pt with pamphlets from [employer]. Pt verbalized an understanding. * Hospital Course - Magda Hanks DO - 11/17/2024 2:00 PM EST BERNADETTE Faust is a 29 year old POD#11 s/p emergent pLTCS with post- op course c/b intraperitoneal abscess now POD#2 s/p IR drain Abscess--cultures ngtd. Has been on zosyn for 48h, now on PO augmentin Appreciate gen surg input, will schedule this week with follow-up information Plan to follow up with them in a week for drain removal. 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, chcf consider psych input Recent Pos UTox--for SW consult * Care Plan Note - Jeff Renteria RN - 11/17/2024 10:52 AM EST Problem: Routine Care: Goal: Patient care will be managed and maintained throughout hospital stay per unit specific routine care procedure Outcome: Progressing Problem: Hypertensive Disorder in : Goal: Risk for seizure in will be minimized Outcome: Progressing Problem: Fluid and Electrolyte Imbalance: Goal: Adequate fluid and electrolyte balance will be achieved and maintained Outcome: Progressing Problem: Infection: Goal: Will be free of signs and symptoms of infection Outcome: Progressing Problem: Coping: Goal: Ability to identify and develop effective coping behavior will improve and/or be maintained Outcome: Progressing Problem: Knowledge Deficit: Goal: Ability to make informed decisions regarding treatment will improve Outcome: Progressing Problem: Acute Pain: Goal: Ability to identify pain intensity on a pain scale and rate it consistently will be achieved and maintained Outcome: Progressing Goal: Acceptable level of pain which allows the patient to achieve functional outcome goals Outcome: Progressing Goal: Ability to identify factors that manage or decrease pain will be achieved Outcome: Progressing Problem: Safety: Goal: Patient will remain free of falls during hospital stay Outcome: Progressing Goal: Free from injury during hospitalization Outcome: Progressing Problem: Discharge Planning: Goal: Discharge needs of the adult patient will be met Outcome: Progressing * Care Plan Note - Bridgette Justice RN - 11/16/2024 9:55 AM EST Problem: Routine Care: Goal: Patient care will be managed and maintained throughout hospital stay per unit specific routine care procedure Outcome: Progressing Pt with VS and temp Q4 hrs. I&O's Q4. House diet. BS per protocol. Up to BR with assist. Meds per orders. Problem: Hypertensive Disorder in : Goal: Risk for seizure in will be minimized Outcome: Progressing B/P this AM 132/86. Adalat and Labetalol given PO per orders. Problem: Fluid and Electrolyte Imbalance: Goal: Adequate fluid and electrolyte balance will be achieved and maintained Outcome: Progressing Pt tolerating PO fluids. Urine output WNL. Will continue to monitor. Problem: Infection: Goal: Will be free of signs and symptoms of infection Outcome: Progressing Pt afebrile. Abdomen extremely tender. Pt receiving IV antibiotics per orders. Pt draining small amount of purulent drainage (10cc this 4 hrs) from R side drain. Problem: Coping: Goal: Ability to identify and develop effective coping behavior will improve and/or be maintained Outcome: Progressing Pt with flat affect. Resting much of this AM. Pt is currently alone. Problem: Knowledge Deficit: Goal: Ability to make informed decisions regarding treatment will improve Outcome: Progressing Pt verbalized understanding of POC. Dr. Samuels at bedside this AM to answer all questions. Emotional support provided. Problem: Acute Pain: Goal: Ability to identify pain intensity on a pain scale and rate it consistently will be achieved and maintained Outcome: Progressing Pt able to rate pain using numeric pain scale without difficulty. Goal: Acceptable level of pain which allows the patient to achieve functional outcome goals Outcome: Progressing Pt c/o HERNADEZ pain 6/10 on pain scale. Pt given Periactin PO and Reglan IV to help with HERNADEZ. Pt rating abdominal pain and R sided incisional pain at drain site 7/10. Pt given 2 Lidocaine patches around drain bandage. Will give both Tylenol and Ibuprofen at 1030 as ordered. Goal: Ability to identify factors that manage or decrease pain will be achieved Outcome: Progressing Pt with lights off and quiet room environment at this time. Problem: Safety: Goal: Patient will remain free of falls during hospital stay Outcome: Progressing Safe environment maintained. Call gomez within reach. Side rails up x2. Bed in lowest, locked position. Goal: Free from injury during hospitalization Outcome: Progressing Pt remains injury free during this hospitalization. Purposeful hourly rounding continues. Problem: Discharge Planning: Goal: Discharge needs of the adult patient will be met Outcome: Progressing Pt to be d/c'd to home when medically stable and with physician order. Pt aware of POC. Discussed with Dr. Samuels this AM. * Care Plan Note - Jeff Renteria RN - 11/15/2024 7:23 PM EST Problem: Routine Care: Goal: Patient care will be managed and maintained throughout hospital stay per unit specific routine care procedure 11/15/20241922 by Jeff Renteria RN Outcome: Progressing 11/15/2024 1151 by Jeff Renteria RN Outcome: Progressing Problem: Hypertensive Disorder in : Goal: Risk for seizure in will be minimized 11/15/20241922 by Jeff Renteria RN Outcome: Progressing 11/15/2024 115 by Jeff Renteria RN Outcome: Progressing Problem: Fluid and Electrolyte Imbalance: Goal: Adequate fluid and electrolyte balance will be achieved and maintained 11/15/20241922 by Jeff Renteria RN Outcome: Progressing 11/15/2024 1151 by Jeff Renteria RN Outcome: Progressing Problem: Infection: Goal: Will be free of signs and symptoms of infection 11/15/20241922 by Jeff Renteria RN Outcome: Progressing 11/15/2024 115 by Jeff Renteria RN Outcome: Progressing Problem: Coping: Goal: Ability to identify and develop effective coping behavior will improve and/or be maintained 11/15/20241922 by Jeff Renteria RN Outcome: Progressing 11/15/2024 115 by Jeff Renteria RN Outcome: Progressing Problem: Knowledge Deficit: Goal: Ability to make informed decisions regarding treatment will improve 11/15/20241922 by Jeff Renteria RN Outcome: Progressing 11/15/20241150 by Jeff Renteria RN Outcome: Progressing Problem: Acute Pain: Goal: Ability to identify pain intensity on a pain scale and rate it consistently will be achieved and maintained 11/15/20241922 by Jeff Renteria RN Outcome: Progressing 11/15/20241150 by Jeff Renteria RN Outcome: Progressing Goal: Acceptable level of pain which allows the patient to achieve functional outcome goals 11/15/20241922 by Jeff Renteria RN Outcome: Progressing 11/15/20241150 by Jeff Renteria RN Outcome: Progressing Goal: Ability to identify factors that manage or decrease pain will be achieved 11/15/20241922 by Jeff Renteria RN Outcome: Progressing 11/15/20241150 by Jeff Renteria RN Outcome: Progressing Problem: Safety: Goal: Patient will remain free of falls during hospital stay 11/15/20241922 by Jeff Renteria RN Outcome: Progressing 11/15/2024 115 by Jeff Renteria RN Outcome: Progressing Goal: Free from injury during hospitalization 11/15/20241922 by Jeff Renteria RN Outcome: Progressing 11/15/2024 115 by Jeff Renteria RN Outcome: Progressing Problem: Discharge Planning: Goal: Discharge needs of the adult patient will be met 11/15/2024 1923 by Jeff Renteria RN Outcome: Progressing 11/15/2024 1151 by Jeff Renteria RN Outcome: Progressing * Post-Procedure Note - Becky Zayas MD - 11/15/2024 5:34 PM EST POST-PROCEDURE NOTE Procedure: CT guided drained placement in intraabdominal fluid collection Pre-operative Diagnosis: Intraabdominal fluid collection adjacent to suspected colonic perforation Post-operative Diagnosis: same Attending: Chica Andres MD Billet Worker: Becky Zayas MD A TIME OUT was performed prior to the procedure using active communication to verify correct patient, procedure, and site: Yes Intraoperative Medications: Complications: None Specimens: 30 cc's of purulent fluid was aspirated and sent with the patient Estimated Blood Loss: less than 10 cc Post Procedure Pain Ratin/10 Findings: Technically successful placement of a 12Fr drain in a right upper quadrant fluid collection adjacent to a suspected colonic perforation Plan: Remainder of plan per primary. Please see procedure dictation in EPIC/PACS for full procedural details. Becky Zayas MD Radiology Cosigned by Chica Andres MD at 11/18/2024 9:48 AM EST * Progress Notes - NoteWriter - Jeff Renteria RN - 11/15/2024 12:25 PM EST Pt down to CT. S/P general surgery attending assessed pt. * Care Plan Note - Jeff Renteria RN - 11/15/2024 11:51 AM EST Problem: Routine Care: Goal: Patient care will be managed and maintained throughout hospital stay per unit specific routine care procedure Outcome: Progressing Problem: Hypertensive Disorder in : Goal: Risk for seizure in will be minimized Outcome: Progressing Problem: Fluid and Electrolyte Imbalance: Goal: Adequate fluid and electrolyte balance will be achieved and maintained Outcome: Progressing Problem: Infection: Goal: Will be free of signs and symptoms of infection Outcome: Progressing Problem: Coping: Goal: Ability to identify and develop effective coping behavior will improve and/or be maintained Outcome: Progressing Problem: Acute Pain: Goal: Ability to identify pain intensity on a pain scale and rate it consistently will be achieved and maintained Outcome: Progressing Goal: Acceptable level of pain which allows the patient to achieve functional outcome goals Outcome: Progressing Goal: Ability to identify factors that manage or decrease pain will be achieved Outcome: Progressing Problem: Safety: Goal: Patient will remain free of falls during hospital stay Outcome: Progressing Goal: Free from injury during hospitalization Outcome: Progressing Problem: Discharge Planning: Goal: Discharge needs of the adult patient will be met Outcome: Progressing * Care Plan Note - Marguerite Jones RN - 11/15/2024 4:16 AM EST Problem: Routine Care: Goal: Patient care will be managed and maintained throughout hospital stay per unit specific routine care procedure Outcome: Progressing Unit routine initiated and maintained. Pt oriented to room, call gomez, and nurse Problem: Hypertensive Disorder in : Goal: Risk for seizure in will be minimized Outcome: Progressing Blood pressures normotensive at this time. Will report any severe range blood pressures to MDs and follow protocol. Problem: Fluid and Electrolyte Imbalance: Goal: Adequate fluid and electrolyte balance will be achieved and maintained Outcome: Progressing IVF initiated and maintained. Will keep fluids titrated to 75ml/hr Problem: Infection: Goal: Will be free of signs and symptoms of infection Outcome: Progressing Hand hygiene maintained; pt remains afebrile. Will continue to assess vital signs per protocol Problem: Coping: Goal: Ability to identify and develop effective coping behavior will improve and/or be maintained Outcome: Progressing Pt utilizing effective coping mechanisms and showing appropriate coping behaviors. Pt encouraged toverbalize feelings and ask for assistance as needed. Will continue to monitor. Problem: Knowledge Deficit: Goal: Ability to make informed decisions regarding treatment will improve Outcome: Progressing Pt asking appropriate questions at this time. Providing education as needed Problem: Acute Pain: Goal: Ability to identify pain intensity on a pain scale and rate it consistently will be achieved and maintained Outcome: Progressing Goal: Acceptable level of pain which allows the patient to achieve functional outcome goals Outcome: Progressing Goal: Ability to identify factors that manage or decrease pain will be achieved Outcome: Progressing Problem: Safety: Goal: Patient will remain free of falls during hospital stay Outcome: Progressing Goal: Free from injury during hospitalization Outcome: Progressing Side rails up times two, bed locked in lowest position, and call gomez within reach,. Problem: Discharge Planning: Goal: Discharge needs of the adult patient will be met Outcome: Progressing Plan for monitoring in High risk. documented in this [id number] Plan of care note* Care Plan Note - Darling Keith RN - 11/18/2024 5:36 PM EST Problem: Routine Care: Goal: Patient care will be managed and maintained throughout hospital stay per unit specific routine care procedure Outcome: Progressing Care provided per routine [facility] standard of procedure Problem: Hypertensive Disorder in : Goal: Risk for seizure in will be minimized Outcome: Progressing BP stable. Antihypertensive given as ordered. Problem: Fluid and Electrolyte Imbalance: Goal: Adequate fluid and electrolyte balance will be achieved and maintained Outcome: Progressing Voiding QS per pt. Tolerating regular diet. Problem: Infection: Goal: Will be free of signs and symptoms of infection Outcome: Progressing Afebrile. Antibiotics given as ordered. Drainage bag with increased output. CT Scan ordered. Problem: Coping: Goal: Ability to identify and develop effective coping behavior will improve and/or be maintained Outcome: Progressing Pt speaking on phone with family Problem: Knowledge Deficit: Goal: Ability to make informed decisions regarding treatment will improve Outcome: Progressing Pt kept updated on POC. Questions answered. Problem: Acute Pain: Goal: Ability to identify pain intensity on a pain scale and rate it consistently will be achieved and maintained Outcome: Progressing Pt with C/O pain by incision site, drain site and HERNADEZ. Medicated as needed. Some relief obtained. Goal: Acceptable level of pain which allows the patient to achieve functional outcome goals Outcome: Progressing Goal: Ability to identify factors that manage or decrease pain will be achieved Outcome: Progressing Problem: Safety: Goal: Patient will remain free of falls during hospital stay Outcome: Progressing Safe environment maintained. Call gomez within reach. Goal: Free from injury during hospitalization Outcome: Progressing Problem: Discharge Planning: Goal: Discharge needs of the adult patient will be met Outcome: Progressing POC ongoing. [id number] Consult note* Tania Nowak, RD - 11/18/2024 4:03 PM EST Images from the original note were not included. Brief Nutrition Follow-Up Reason for RD visit: F/u for T2DM diet education Lab Results Component Value Date HBA1C 10.0 (H) 11/15/2024 HBA1C 8.1 (H) 10/14/2021 HBA1C 8.1 (H) 10/07/2021 Fingerstick Glucose (last 72 hours) (Last 10 results in the past 72 hours) Glucose 11/18/24 1511 118 11/18/24 1241 60 Comment: Notified BENTLEY POLLOCK MD 11/18/24 0557 70 11/17/24 2146 157 11/17/24 2014 70 11/17/24 1533 90 11/17/24 1013 86 11/17/24 0636 80 11/16/24 2204 152 11/16/24 1751 243 Comment: Notified BENTLEY POLLOCK MD Specimen Sent to Lab Diet/ONS Order(s): Regular Prior Education with RD?: none per pt Summary of Nutrition Education: Please refer to my previous note (on 11/15) for full nutrition assessment. Returned today for DM diet education. Pt reports having GDM with her first child (~11yrs ago). Gino was told she had T2DM for the first time just after this (s/p 11/06 - A1c was10% on 11/15). Therefore, has received diet education in the past. 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 She was able to tell me that CHO increases BG so should be limited, while eating more protein-rich foods and non-stachy vegetables. We reviewed CHO containing foods/drinks and portion sizes, meal planning tips, CHO counting/svg sizes(15g/1svg CHO), label reading, protein, plate method,and a sample menu. Written education materials were provided/reviewed. Pt seemed receptive. Encouraged her to review written education material and have RN page RD if she has future questions. [facility]place [facility]. Pt reports tolerating solids foods/Regular diet today - no n/v, abd pain. Yesterday only had clearsw/ some nausea. However TRACIE drain w/ smelly dark green drainage so repeat CT scan ordered for today. She is not . Her baby remains in NICU at OSH. Nutrition Interventions/Recommendations: 1. 60g CHO/meal diet to make c/w education. Serving sizes on hospital menu were discussed with pt. 2. If pt requires liquid diet or is demonstrating poor PO intake (especially of of protein-rich foods), recommend providing Boost CG Max TID with meals to optimize PO/protein intake to promote healing s/p 3. Highly recommend B12 500mcg/d with use of Metformin 4. T2DM diet education was provided, along with written education materials 5. MD - please place referral for Diabetes Self Management Program [id number] in discharge orders Patient will receive a call from clinical educator regarding scheduling Tania Nowak RD, LD, [facility] Personal Pager: [phone] Control Center Operator Nutrition Pager: [phone] Time spent on patient care: 60 minutes [employer] Work Phone: [phone]) 834-978901-20-2025 NoteBrief Nutrition Follow-Up Reason for RD visit: F/u for T2DM diet education Lab Results Component Value Date HBA1C 10.0 (H) 11/15/2024 HBA1C 8.1 (H) 10/14/2021 HBA1C 8.1 (H) 10/07/2021 Fingerstick Glucose (last 72 hours) (Last 10 results in the past 72 hours) Glucose 11/18/24 1511 118 11/18/24 1241 60 Comment: Notified BENTLEY POLLOCK MD 11/18/24 0557 70 11/17/24 2146 157 11/17/242013 70 11/17/24 1533 90 11/17/24 1013 86 11/17/24 0636 80 11/16/24 2204 152 11/16/24 8881 917 Comment: Notified RN PHILL MALIK Specimen Sent to Lab Diet/ONS Order(s): Regular Prior Education with RD?: none per pt Summary of Nutrition Education: Please refer to my previous note (on 11/15) for full nutrition assessment. Returned today for DM diet education. Pt reports having GDM with her first child (~11yrs ago). Says she was told she had T2DM for the first time just after this (s/p 11/06 - A1c was 10% on 11/15). Therefore, has received diet education in the past. 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 She was able to tell me that CHO increases BG so should be limited, while eating more protein-rich foods and non-stachy vegetables. We reviewed CHO containing foods/drinks and portion sizes, meal planning tips, CHO counting/svg sizes(15g/1svg CHO), label reading, protein, plate method, and a sample menu. Written education materials were provided/reviewed. Pt seemed receptive. Encouraged her to review written education material and have RN page RD if she has future questions. Please place referral to [facility] for Diabetes Self Management Program. Pt reports tolerating solids foods/Regular diet today - no n/v, abd pain. Yesterday only had clears w/ some nausea. However TRACIE drain w/ smelly dark green drainage so repeat CT scan ordered for today. She is not . Her baby remains in NICU at OSH. Nutrition Interventions/Recommendations: 1. 60g CHO/meal diet to make c/w education. Serving sizes on hospital menu were discussed with pt. 2. If pt requires liquid diet or is demonstrating poor PO intake (especially of of protein-rich foods), recommend providing Boost CG Max TID with meals to optimize PO/protein intake to promote healing s/p 3. Highly recommend B12 500mcg/d with use of Metformin 4. T2DM diet education was provided, along with written education materials 5. MD - please place referral for Diabetes Self Management Program [id number] in discharge orders Patient will receive a call from clinical educator regarding scheduling Tania Nowak, LETHA, LD, [facility] Personal Pager: [phone] Control Center Operator Nutrition Pager: [phone] Time spent on patient care: 60 minutesThe [facility] HospitalFur and Mask [id number] Consult note* Tania Nowak, RD - 11/18/2024 4:03 PM EST Images from the original note were not included. Brief Nutrition Follow-Up Reason for RD visit: F/u for T2DM diet education Lab Results Component Value Date HBA1C 10.0 (H) 11/15/2024 HBA1C 8.1 (H) 10/14/2021 HBA1C 8.1 (H) 10/07/2021 Fingerstick Glucose (last 72 hours) (Last 10 results in the past 72 hours) Glucose 11/18/24 1511 118 11/18/24 1241 60 Comment: Notified BENTLEY POLLOCK MD
11/18/24 0557 70 11/17/24 2146 157 11/17/24 2014 70 11/17/24 1533 90 11/17/24 1013 86 11/17/24 0636 80 11/16/24 2204 152 11/16/24 1751 243 Comment: Notified BENTLEY POLLOCK MD
Specimen Sent to Lab
Diet/ONS Order(s): Regular Prior Education with RD?: none per pt Summary of Nutrition Education: Please refer to my previous note (on 11/15) for full nutrition assessment. Returned today for DM diet education. Pt reports having GDM with her first child (~11yrs ago). Gino was told she had T2DM for the first time just after this (s/p 11/06 - A1c was10% on 11/15). Therefore, has received diet education in the past. 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 She was able to tell me that CHO increases BG so should be limited, while eating more protein-rich foods and non-stachy vegetables. We reviewed CHO containing foods/drinks and portion sizes, meal planning tips, CHO counting/svg sizes(15g/1svg CHO), label reading, protein, plate method,and a sample menu. Written education materials were provided/reviewed. Pt seemed receptive. Encouraged her to review written education material and have RN page RD if she has future questions. Pleaseplace referral to Outpatient Nutrition [facility] for Diabetes Self Management Program. Pt reports tolerating solids foods/Regular diet today - no n/v, abd pain. Yesterday only had clearsw/ some nausea. However TRACIE drain w/ smelly dark green drainage so repeat CT scan ordered for today. She is not . Her baby remains in NICU at OSH. Nutrition Interventions/Recommendations: 1. 60g CHO/meal diet to make c/w education. Serving sizes on hospital menu were discussed with pt. 2. If pt requires liquid diet or is demonstrating poor PO intake (especially of of protein-rich foods), recommend providing Boost CG Max TID with meals to optimize PO/protein intake to promote healing s/p 3. Highly recommend B12 500mcg/d with use of Metformin 4. T2DM diet education was provided, along with written education materials 5. MD - please place referral for Diabetes Self Management Program [id number] in discharge orders Patient will receive a call from clinical educator regarding scheduling Tania Nowak RD, LD, [facility] Personal Pager: [phone] Control Center Operator Nutrition Pager: [phone] Time spent on patient care: 60 minutes * Genesis Ayala LSW - 11/15/2024 1:20 PM ESTAssociated Order(s): IP SOCIAL WORK SERVICE REQUEST SW consult received for: Substance abuse resources/interventions SW attempted to meet with pt. Unable to meet as pt was out for CT scan. Will follow up later today. Addendum: 3:20pm SW attempted to meet with pt again. Pt was going off the floor for a procedure. LATONYA Lindsey Social Work [phone] * Tania Nowak RD - 11/15/2024 10:58 AM ESTAssociated Order(s): NUTRITION NEW CONSULT Images from the original note were not included. Date: 11/15/24 LOS: 0 days Room: [place] [id number] Brief Nutrition Education Note Reason for RD visit: Consult - Diabetic diet Admitting Diagnosis: No admission diagnoses are documented for this encounter. Basic Metabolic Panel 11/15/2024 12:52 AM Na 139 K 3.9 Cl 101 CO2 27 Gap 15 Glu 211 BUN 9 Cr 0.67 Ca 7.9 CBC (last 3 years, up to 8 values) 11/15/2024 11/15/2024 11:30 AM 12:52 AM WBC 14.5 15.6 RBC 3.56 3.85 Hgb 9.6 10.2 Hct 28.9 30.7 MCV 81 80 RDW 17.2 16.9 Plt 457 360 LFT's (last 3 years, up to 8 values) 11/15/2024 12:52 AM T Prot 5.3 Albumin 2.4 D Bili 0.07 T Bili 0.3 Alk Phos 133 ALT 11 AST 15 Lipids (last 3 years, up to 8 values) No lab values to display. Lab Results Component Value Date HBA1C 10.0 (H) 11/15/2024 HBA1C 8.1 (H) 10/14/2021 HBA1C 8.1 (H) 10/07/2021 Fingerstick Glucose (last 72 hours) Glucose 11/15/24 0828 128 11/15/24 0428 198 11/15/24 0314 203 Comment: Follow Protocol
11/15/24 0039 225 Comment: Follow Protocol
Notified BENTLEY POLLOCK MD
Allergies Allergen Reactions Verapamil Anaphylactic Shock Botulinum Toxin Type A Itching Onabotulinumtoxina Itching, Rash and Swelling Face tingling and skin itching. Bandage Tape Rash Latex Other and Rash Current Facility-Administered Medications Medication Dose Route Frequency Last Rate Last Admin insulin glargine (LANTUS SOLOSTAR/BASAGLAR KWIKPEN) 100 UNIT/ML PEN injection 14 Units SubcutaneousAt Bedtime sodium chloride 0.9 % iv infusion 1,000 mL Intravenous Continuous 125 mL/hr at 11/15/24 1130 1,000 mL at 11/15/24 1130 metoclopramide (REGLAN) 5 MG/ML injection 10 mg Intravenous Push Q6H PRN 10 mg at 11/15/24 1222 ibuprofen (MOTRIN) tablet 600 mg Oral Every 6 hours 600 mg at 11/15/24 0330 measles, mumps and rubella (MMR) chargeable vaccine 0.5 mL Subcutaneous Vaccinate Once acetaminophen (TYLENOL) tablet 1,000 mg Oral Every 6 hours 1,000 mg at 11/15/24 0908 oxyCODONE immediate release tablet 5 mg Oral Q4H PRN Or oxyCODONE immediate release tablet 10 mg Oral Q4H PRN NIFEdipine (ADALAT CC) 24 hour tablet 30 mg Oral BID 30 mg at 11/15/24 0212 piperacillin-tazobactam in D5W (ZOSYN) 3,375 mg in dextrose 50 mL ivpb 3.375 g Intravenous Q6H Antibiotic 100 mL/hr at 11/15/24 0800 3,375 mg at 11/15/24 0800 ondansetron (ZOFRAN) 4 MG/2ML injection 4 mg Intravenous Push Every 6 hours 4 mg at 11/15/24 0108 labetalol (NORMODYNE) tablet 200 mg Oral 2x Daily 200 mg at 11/15/24 0113 labetalol (TRANDATE) 5 mg/mL injection 80 mg Intravenous Push Once PRN And hydrALAZINE (APRESOLINE) 20 mg/mL injection 10 mg Intravenous Push Once PRN Diet/ONS Order(s): NPO Anthropometrics: Ht Data Unavailable Wt no weight BMI Data Unavailable Weight hx: none Brief Clinical & Education Summary: 29 yo F w/ PMH s/f T2DM, pre-eclampsia, ADHD (+40mg/d adderall) who underwent emergent at34 weeks on 11/06/24 for placental abruption (baby still in NICU at ), was worked up at OSH ([facility]) for RUQ abd pain and found to have RUQ fluid collection concerning for intra-abdominal abscess, then was transfeed to MH for possible IR drainafe. Nutrition was consulted for DM diet education. HbA1c 10%. Pt currently NPO. Reportedly not breast feeding. Baby remains in NICU at OSH. Attempted to see her this afternoon, however she was being taken to IR for ?drainage. Agree should would likely benefit from diet education, but will have to treturn at later time - not here over weekend, so would be Monday if pt is still here. Aware she isnt from the area so OP MH referral is probably not helpful Nutrition Problem(s): Uncontrolled T2DM (HbA1c 10%); ~1 week / (increased nutrient needs r/t healing) Nutrition Interventions/Recommendations: 1. Resume PO as medically able: 60g CHO/meal diet (once advanced past CLD/FLD) 2. mIVF while NPO without nutrition source 3. Would benefit from T2DM diet education -- Pt off floor during attempted visit today. Will attempt to return at later time when she is back, however will likely need to be on Monday (not here over wknd) if she is still here 4. MD - if appropriate based on where pt leaves, can place referral for outpatient education - Diabetes Self Management Program: [id number] in discharge orders. Patient will receive a call from clinical educator regarding scheduling Tania Nowak RD, LD, [facility] Personal Pager: [phone] On-Call Nutrition Pager: [phone] Time spent on patient care: 15 minutes Dietitian vs DietaryTech: Dietitian and Cigarette Making Machine Catcher * Cesar Bueno DO - 11/15/2024 8:53 AM ESTAssociated Order(s): IP PSYCHIATRIC ADULT CONSULT Images from the original note were not included. PSYCHIATRY CONSULT LIAISON NOTE PROVIDER REQUESTING CONSULT: Adelfo Nice MD Inpatient Floor: [facility] 08 - [id number] Reason for Consult: hx Bipolar, reported medications and chart meds discrepancy (medication reconciliation) IDENTIFICATION: BERNADETTE Faust is a 29 year old White female HISTORY OF PRESENT ILLNESS Hospital Course: A 29-year-old at postoperative day 9 following an emergent C- section at 34 weeks for placental abruption and preeclampsia, presents with acutely worsening right upper quadrant pain after transfer from [facility]. Chart reviewed, and from a medical perspective, the patient is being treated for a suspected intra-abdominal abscess with plans for IR drainage, ongoing IV zosyn, and imaging follow-up. She is normotensive on antihypertensives after severe preeclampsia and is day 9 following an emergent complicated by significant blood loss and limited care. A prior reactive HIV screen was negative on repeat testing, and toxicology was positive for for amphetamine, benzodiazepines,ecstasy, opioids. Opioids potentially due to anesthesia during C/S. Psychiatric Interview: The patient was interviewed at the bedside and reported being in pain but stated she is psychiatrically stable. She denies any new or worsening symptoms of depression or anxiety. The patient follows with a psychiatrist in [place], [place], who prescribes lamotrigine 200 mg daily for bipolar disorder, as well as amphetamine- dextroamphetamine and alprazolam. She has not taken lamotrigine for over five days and is agreeable to restarting at 25 mg with titration by her outpatient provider. She refilled her last prescriptions for amphetamine-dextroamphetamine and alprazolam a few months ago but is unsure why they do not appear in her OARRS report. She has not taken either medication in several days and denies any symptoms of benzodiazepine withdrawal. The patient states she splits her time between [place] and [place], does not currently have a psychiatric provider in [place], but has been attempting to establish care there. Her prescriptions are written and filled in [place]. She denies suicidal ideation, homicidal ideation, or auditory/visual hallucinations. She reports nodifficulties with sleep, appetite, or medication side effects. PRN's Received: - none for agitation or anxiety PER CHART REVIEW [facility] 11/06/24 - 11/09/24 The patient was hospitalized at [facility] from November 06 to November 09, 2024, following an emergent placental abruption at 34 weeks gestation. She underwent an urgent performed by Dr. Elaine Jones due to distress and hemorrhaging. Postoperatively, she developed severe preeclampsia, anemia secondary to blood loss, and uncontrolled diabetes (HbA1c 9%). Initiallabs also revealed renal insufficiency, electrolyte imbalances, and a positive HIV screen. The patient was briefly admitted to the ICU, received a unit of blood, and was stabilized on antihypertensives (nifedipine, labetalol) and diabetes management (metformin XR). She was discharged on postoperative day 3 with instructions to follow up with a PCP. The infant, born prematurely, remains in the NICU. OARRS/[facility] Scores: 11/09/2024 11/09/2024 1 Oxycodone Hcl (Ir) 5 Mg Tablet 28.00 7 Sh Dec [id number] Banda ([id number]) 0 PSYCHIATRIC REVIEW OF SYSTEMS: As per HPI Suicide Assessment Tool C-SSRS Appling-Suicide Severity Rating Scale Able to complete Appling-Suicide Severity Rating Scale with Patient?: Yes 1) Wish to be : No 2) Current suicidal thoughts: No 6) C-SSRS Suicidal Behavior: No Risk of Suicide: Negative Screen Did patient score moderate or high risk on the C-SSRS?: No SAFE-T PSYCHIATRIC HISTORY: Psychiatric diagnoses: bipolar disorder (self reported), ADHD, anxiety Outpatient psychiatrist/counselor: Leonila Junior, [place] (self reported) Inpatient psychiatric admissions (when/why?): none Previous suicide attempts: none Medications tried in the past: unknown Current outpatient medications: per patient, Lamictal 200 mg daily, alprazolam prn for anxiety, andAdderall for ADHD. Hasn't taken her medication in a week. 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 [employer] Smoking Status: Never smoker alcohol intake: current alcohol intake frequency: holidays/special occasions only substance use type: does not use caffeine: Yes what type of physical activity do you participate in: walking frequency: 3-4 times per week seatbelt use: always do you feel safe at home: Yes 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 Elaine Jones MD) Asthma Migraines multiple sclerosis and diabetes reported hx of TIA vs complex migraine vs MS Surgical History H/O knee surgery H/O dilation and curettage History of appendectomy History of lumpectomy History of tonsillectomy and adenoidectomy ALLERGIES: Allergies Allergen Reactions Verapamil Anaphylactic Shock Botulinum Toxin Type A Itching Onabotulinumtoxina Itching, Rash and Swelling Face tingling and skin itching. Bandage Tape Rash Latex Other and Rash CURRENT INPATIENT MEDICATIONS: Scheduled iohexol 100 mL Once at Radiology exam iohexol 50 mL Once at Radiology exam iohexol 50 mL Once at Radiology exam insulin glargine 14 Units At Bedtime ibuprofen 600 mg Every 6 hours measles, mumps and rubella 0.5 mL Vaccinate Once acetaminophen 1,000 mg Every 6 hours NIFEdipine 30 mg BID piperacillin/tazobactam 3.375 g Q6H Antibiotic ondansetron 4 mg Every 6 hours labetalol 200 mg 2x Daily IV sodium chloride 1,000 mL (11/15/24 1130) PRN metoclopramide 10 mg Q6H PRN oxyCODONE 5 mg Q4H PRN Or oxyCODONE 10 mg Q4H PRN labetalol 80 mg Once PRN And hydrALAZINE 10 mg Once PRN VITAL SIGNS: Vital sign ranges over the past 24 hours (retrieved 11/15/2024 at 1:19 PM): Tmax (24 hours): 98.2 F (36.8 C) Pulse Av.9 Min: 75 Max: 105 Systolic (24hrs), Av , Min:106 , Max:170 Diastolic (24hrs), Av, Min:66, Max:112 No data recorded Resp Av.1 Min: 15 Max: 18 SpO2 Av.6 % Min: 94 % Max: 98 % PHYSICAL EXAM: Deferred MENTAL STATUS EXAM: 01. APPEARANCE: neat well groomed dressed in hospital gown 02.BEHAVIOR: Calm Cooperative poor eye contact 03. ORIENTATION: oriented to time, place and person. 04. SPEECH: clear, normal rate and flow, coherent, and goal-directed 05. THOUGHT PROCESS: logical 06. ASSOCIATION: tight 07. THOUGHT CONTENT: no abnormal processes noted, no derailment or disorganized thoughts of psychotic nature, no spontaneous speech of delusional nature, no paranoia evident, denies auditory hallucinations, denies visual hallucinations, denies suicidal thoughts or intention, denies homicidal thoughts or intention 08. JUDGMENT: fair 09. INSIGHT: fair 10. RECENT AND REMOTE MEMORY: appear adequate to observation 11. ATTENTION SPAN AND CONCENTRATION: sustained 12. LANGUAGE: Appropriate, Normal verbal ability 13. FUND OF KNOWLEDGE: Okay 14. MOOD: euthymic 15. AFFECT: congruent 16: COGNITION: grossly intact on observation 17: MSK/NEURO: no tremor, tics, rigidity, psychomotor slowing/agitation or other abnormal motor movements on observation, gait not assessed LABS: 139 101 9 / \ 211 3.9 27 0.67 BMP: 11/15/2024: 12:52 AM 14.5 \ 9.6 / 457 / 28.9 \ CBC: 11/15/2024: 11:30 AM Albumin Date Value Ref Range Status 11/15/2024 2.4 (L) 3.5 - 5.7 g/dL Final Protein, Total Date Value Ref Range Status 11/15/2024 5.3 (L) 6.0 - 8.3 g/dL Final Alkaline Phosphatase Date Value Ref Range Status 11/15/2024 133 (H) 34 - 104 IU/L Final Results for orders placed during the hospital encounter of 11/14/24 CT ABDOMEN/PELVIS W/ CONTRAST Impression : 1. There is a slightly lobulated complex gas and fluid collection anterolateral to the cecum and right colon just below liver that is worrisome for an abscess and does not communicate with the adjacent contrast enhanced large bowel. This could represent a periappendiceal abscess as the appendix is not visualized. 2. There are trace amounts of free fluid within both pericolic gutters and subhepatic region and a small amount of free fluid within the pelvis and cul-de-sac surrounding the uterus. 3. The endometrial canal is thickened and there is heterogeneous density within the endometrial canal. Retained products of conception cannot be excluded and pelvic sonography is recommended. 4. There is mild diverticulosis of the redundant sigmoid colon with no evidence of diverticulitis. 5. There is mild fatty change of the liver. 6. There is no evidence of adenopathy. 7. There is distention of the gallbladder, which is a nonspecific finding and gallbladder sonography is recommended. 8. The remaining solid organs and remaining bowel are normal. 9. There are additional findings as described above. EKG: No results found for: QTC ASSESSMENT: Bernadette Faust is a 29-year-old White female, POD#8 s/p emergency pLTCS for abruption with NRFS,preeclampsia, and PPH, with a history of anxiety, ADHD, and bipolar disorder (self-reported). She is currently admitted for management of an intra-abdominal abscess and blood pressure. Psych was consulted for a discrepancy between psychiatric medications reported by the patient and those seen in the OARRS report. The patient has no past psychiatric admissions and no prior suicide attempts. Utox from OSH on 11/06/24 was positive for amphetamines, MDMA (ecstasy), benzodiazepines, and opiates. The patient was calm and cooperative during the assessment. Thought processes were logical, organized, and goal-directed. She appeared future-oriented, with sustained attention and a full, reactive affect congruent with her reported mood. There was no evidence of acute manic, hypomanic, severe depressive, psychotic, or other psychiatric decompensation. She denied ideation, intent, or plans to harm herself or others, and there are no acute safety concerns. The patient reports being on lamotrigine 200 mg daily for her bipolar diagnosis but has not taken it for more than five days. She will resume lamotrigine at 25 mg daily for two weeks, followed by 50 mg daily for two weeks, with continued titration managed by her outpatient provider. She follows with Dr. Morales in [place], [place], though it is unclear why her OARRS record does not reflect refills for amphetamine-dextroamphetamine and alprazolam, which she states were last filled a few months ago. It is recommended to hold amphetamine-dextroamphetamine and alprazolam inpatient, as she has not been taking them for approximately one week. There is a low suspicion of benzodiazepine withdrawal at this time, and the patient denies any related symptoms. 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 The patient has been off lamotrigine for more than five days. Per FDA package insert guidelines, restarting at a lower dose is required after such a lapse to minimize the risk of serious adverse effects, particularly Fong-Mesfin syndrome and toxic epidermal necrolysis, which are associated with rapid dose escalation or re-initiation at a previous higher dose. Hydroxyzine 25 mg PO TID PRN for anxiety. Safety: No acute concerns for safety. A psych sitter is not needed at this time. Sitter use is at the discretion of the primary team. Patient Education: The assessment and plan were discussed with the patient. Medication benefits and potential side effects were explained. The patient demonstrated understanding and agreement with the plan. A therapeutic alliance was established through eye contact and active listening. Follow-Up: The patient will follow up with Dr. Morales in [place], [place], and will schedule the appointment independently. Recommendations were communicated to Dr. Muhammad and Dr. Rubin via secure chat. We will sign off, please page with any new concerns. The patient was seen and discussed with attending psychiatrist. Iveth Hall MD Fish Technologist, PGY-2 If patient is admitted to the hospital and psychiatric consultation is necessary, please place order in [facility] for Psychiatry Adult Consult and page: 8:00 AM - 5:00 PM: [phone] 5:00 PM - 8:00 AM, weekends or holidays: [phone] Teaching Physician Note During my evaluation of Ms. Faust with the Consult-Liaison team, I gathered vizcaino information aboutthe patient s medical history, consulted with the resident (Iveth Hall MD), reviewed and amended his documentation as needed, concurred with the assessment and plan, and communicated the plan with the primary medical team via secure chat. I remain available for any multidisciplinary discussions. Cesar Bueno DO Attending Psychiatrist * Juany Muhammad MD - 11/15/2024 6:52 AM ESTAssociated Order(s): IP OB HIGH RISK CONSULT Images from the original note were not included. WATERPROOFER HELPER CONSULT NOTE 11/15/24 6:53 AM PGY-4 S: Patient reporting continued RUQ pain. Denies HERNADEZ, vision changes, chest pain, shortness of breath. Reports bleeding appropriate. For this presented with bleeding, limited to no care. Had been diagnosed with abruption and severe preeclampsia and taken to OR emergently. Received 24 hrs Mg. Presentedto ED yesterday for worsening RUQ pain. Had been having difficulty eating/drinking due to pain. O: BP 106/74 (BP Location: left arm) Pulse 75 Temp 98.2 F (36.8 C) (Oral) Resp 18 SpO2 95% Unknown Gen: NAD Cardio: WWP Resp: breathing comfortably on RA Abd: Soft, tender at RUQ Incision: pfannenstiel incision c/d/i Ext: + edema of bilateral lower extremities, SCDs in place Intake/Output Summary (Last 24 hours) at 11/15/2024 0653 Last data filed at 11/15/2024 0600 Gross per 24 hour Intake 330 ml Output 350 ml Net -20 ml Fingerstick Glucose Glucose 11/15/24 0428 198 11/15/24 0314 203 Comment: Follow Protocol
11/15/24 0039 225 Comment: Follow Protocol
Notified BENTLEY POLLOCK MD
A/P: BERNADETTE Faust is a 29 year old at POD#9 s/p emergent pLTCS at 34wga for abruption and pre-eclampsia with SF here for RUQ pain and RUQ fluid collection concerning for intra-abdominal abscess. #) suspected intra-abdominal abscess - CT AP at OSH with 4.9 x 6.9 x 5.6 cm collection at RUQ/ hemicolon. - images in powershare, plan for formal read today - afebrile, non-tachycardic, WBC 15.6, Hgb 10.2 - s/p EGS consult, recommend IR drainage, no acute surgical intervention indicated - cont IV zosyn - BCx ordered, patient declined this AM - RUQ ultrasound ordered - plan to discuss with IR regarding drainage #) Preeclampsia with severe features -- s/p 24hrs Mg at OSH. -- s/p IV labet 20mg @ 2317 on 11/14 -- s/p IV labet 40mg @ 0100 on 11/15 -- Bps currently normotensive -- current regimen: adalat 30mg BID, labetalol 200mg BID -- no neurological complaints #) T2DM -- HgbA1c on admit 10 -- current regimen metformin 1000 mg daily -- had not been on insulin previously -- blood sugars elevated, plan to start weight based insulin regimen #) Hx Bipolar disorder -- patient reports taking adderall 20mg BID, and aprazolam PRN -- OARRS report with no evidence of the above prescriptions in the last year -- plan for psych consult #) limited care, +Utox -- SW consulted -- 11/06/2024 tox positive for amphetamine, benzodiazepines, ecstasy, opioids. Opioids potentially due to anesthesia during C/S. #) reported hx of TIA vs complex migraine vs MS -- on chart review and neurology note from 2020, no evidence of CVA on imaging and neurology prescribed ajovy for migraines. #) -- s/p pLTCS, EBL >1000, received pRBCs per patient. -- Rhpos/Requiv -- formula feeding, baby in NICU -- Contraception: none -- 11/06/24 preliminary HIV Ab screen reactive, VL <20 at OSH. 11/15/24 HIV antibody on admit negative. #) DVT Prophylaxis -- Lovenox 40mg every day- holding in anticipation of possible IR procedure -- Encourage SCDs and ambulation Juany Muhammad MD COMPUTER OPERATIONS TECHNICIAN PGY-4 Cosigned by Marco Stovall MD at 11/15/2024 1:49 PM EST Associated attestation - Marco Stovall MD - 11/15/2024 1:49 PM EST Teaching Physician Note: I saw and evaluated the patient. I personally obtained the vizcaino and critical portions of the historyand physical exam. I reviewed the resident's documentation and discussed the patient with the resident. I agree with the resident's medical decision making as documented in the resident's note. 29y , POD#9 s/p emergent 1LTCS at 34w for placental abruption, preeclampsia with severe features, admitted for RUQ pain and found to have RUQ fluid collection. Scant care. Transfer initially accepted by surgery, transferred to OB as surgery did not feel surgical intervention warranted. On examination, very tender in RUQ, guarding. On zosyn prior to transfer, will not obtain blood cultures. IR asked to evaluate for potential drainage - IR with concern for bowel perforation. Surgery updated, will repeat CT. T2DM with HbA1c 10 - body habitus not consistent typical T2DM presentation, will obtain c-peptide (currently hypoglycemia) and T1DM antibodies. Start weight- based insulin Preeclampsia: normotensive on nifedipine 30mg BID, labetalol 200mg BID. Aside from RUQ pain, no symptoms but imaging is not consistent with subcapsular hepatic hematoma. Migraines: none currently, no medications currently. Ariane Stovall MD Maternal Medicine, Complex Family Planning Pager: [phone] * Dana Hall DO - 11/15/2024 2:12 AM ESTAssociated Order(s): IP EMERGENCY GENERAL SURGERY CONSULT Images from the original note were not included. [facility] Department of Surgery EMERGENCY GENERAL SURGERY CONSULT NOTE BERNADETTE Faust [id number] Reason for Consultation: Abdominal abscess HPI BERNADETTE Faust is a 29 year old year old female with PMH significant for left breast cancer s/p lumpectomy, MS, prior stroke, recent (11/06/2024) for placental abruption with >1L blood loss, who is presenting as transfer from OSH with right sided intra-abdominal abscess for which EGS was consulted. Reports right-sided abdominal pain since delivery eight days ago, worse over the last 24 hours. Denies fevers, chills, nausea, vomiting. Appetite has been decreased secondary to the pain. Severely constipated post delivery with first bowel movement yesterday (11/14) since delivery on 11/07. PMH Past Medical History: Diagnosis Date Malignant neoplasm of left female breast (HCC) 2017 s/p lumpectomy, s/p 1y tamoxifen Multiple sclerosis (HCC) 2017 ajovy q3mo Stroke ([facility]) 2017 dx with MS PSH Past Surgical History: Procedure Laterality Date BREAST LUMPECTOMY Left 2017 DILATION & CURETTAGE, DX &/OR THERAPEUTIC (NONOBSTETRICAL) DILATION & CURETTAGE, DX &/OR THERAPEUTIC (NONOBSTETRICAL) TONSILLECTOMY & ADENOIDECTOMY; AGE 12+ Medications: No current outpatient medications Allergies: Patient has no allergy information on record. Family History: family history is not on file. ROS (Bold is Positive) Const: Fevers - Chills - WeightLoss - Sweating - Fatigue HEENT: Headaches - VisionChanges Cardiac: ChestPain - Palpitations Pulm: SOB - Cough (Productive) - Orthopnea GI: Nausea - Vomiting - AbdPain - Diarrhea - Constipation : Dysuria - Frequency - ColorChanges MSK: Pain - Swelling - Weakness Skin: Rash - Itching - Lumps/Bumps - Wounds Neuro: Numbness - Tingling - Dizziness - Falls Heme: Bleeding PHYSICAL EXAM BP 153/97 Pulse 87 Temp 98 F (36.7 C) (Oral) Resp 18 SpO2 96% Unknown General: Uncomfortable appearing Cardiac: Capillary refill <2 seconds Pulmonary: Comfortable on RA Abdomen: Post-, soft but diffuse tenderness to palpation with palpable mass in right abdomen with overlying redness of the skin. Pfannenstiel incision healing well without erythema or drainage Extremities: Moving all four appropriately Skin: Warm, no lesions Neuro: AOx3 LABS 15.6 \ 10.2 / 360 / 30.7 \ CBC: 11/15/2024: 12:52 AM 139 101 9 / \ 211 3.9 27 0.67 BMP: 11/15/2024: 12:52 AM STUDIES ASSESSMENT/PLAN BERNADETTE Faust is a 29 year old year old female with PMH as above POD8 s/p ceserean for placental abruption with >1 L fluid loss, here with large abscess in the right paracolic gutter. Reviewedimaging with radiology, no concerns for subcapsular hematoma in setting of continued preeclampsia, fluid collection likely abscess less likely hematoma. Leukocytosis to 15.6, mildly tachycardic to low 100s on examination. Abdomen is post , soft, diffuse tenderness with palpable mass in the right abdomen, correlates to large pericolonic abscess on imaging, with overlying skin erythema. No acute surgical intervention is planned Recommend consultation to IR for percutaneous drainage/drain placement IV Zosyn Admission to obstetrics service in the setting of concerns for preeclampsia EGS will continue to follow Dispo: Per obstetrics Discussed with Dr. Ritter Dana Hall DO General Surgery Department Green Surgery Pager [phone] Purple (MIS, Gen, Peds) Surgery Pager [phone] Blue Surgery (Surgical Oncology, Breast) Pager [phone] Vascular Surgery Pager - [phone] Acute Care Surgery Pager [phone] ACS Consults [phone] ACS Floor Patients Cosigned by Ronda Wing MD at 11/15/2024 2:56 AM EST Associated attestation - Ronda Wing MD - 11/15/2024 2:56 AM EST ACS Attending Attestation Teaching Physician Note: I saw and evaluated the patient. I personally obtained the vizcaino and critical portions of the historyand physical exam. I reviewed the resident's documentation and discussed the patient with the resident. I agree with the resident's medical decision making as documented in the resident's note. HPI: Ms Faust is a 29 yo F with a hx of Type II DM and pre-eclampsia who underwent an emergent at 34 weeks for placental abruption (11/06- Baby bot- osei- baby still in NICU in [facility]). She was worked up at an OSH for RUQ abdominal pain and found to have a RUQ fluid collection con cering for an intra-abdominal abscess. She was transferred to [facility] for possible IR drainage ofthis collection. Physical Exam BP 153/97 Pulse 87 Temp 98 F (36.7 C) (Oral) Resp 18 SpO2 96% Unknown Awake, alert in no acute distress Non labored breathing on room air Regular rate and rhythm Abdomen- soft with moderate tenderness to palpation in the right upper quadrant, well healing lowe transverse incision from No peripheral edema Significant labs/Imaging Wbc- 15.6 CT A/P- right sided intra-abdominal abscess with gas- likely infected hematomas Diagnosis List Intra-abdominal abscess Pre-eclampsia Type II DM Acute abdominal pain Leukocytosis Hyperglycemia Acute blood loss anemia Operative procedures by this team None Assessment and Plan: 29 yo F s/p complicated by placental abruption and 1 L EBL now with right intra-abdominalabscess Collection likely infected hematoma Recommend IR consult for drain placement Start IV antibiotics Send culture from drain No acute general surgery intervention required at this time EGS will follow pending drain placement Management of HTN per obstetrics team Ronda Wing MD ACS Attending Medical Decision Making: Medium Complexity of Problem -Medium- - 1 acute illness with systemic symptoms (intra-abdominal abscess) 2. Data -Medium -independent interpretation of tests during this admission (reviewed CT scan) 3. Risk -High -decision regarding hospitalization documented in this [id number] Plan of care note* Care Plan Note - Kalyani Mac RN - 11/18/2024 6:24 AM EST Problem: Routine Care: Goal: Patient care will be managed and maintained throughout hospital stay per unit specific routine care procedure Outcome: Progressing Unit routine implemented- pt oriented to room, call gomez, care channel. Patient care will be managed and maintained throughout hospital stay per unit specific routine care procedure Orders being followed. Problem: Hypertensive Disorder in : Goal: Risk for seizure in will be minimized Outcome: Progressing Patient blood pressures taken per protocol. Problem: Fluid and Electrolyte Imbalance: Goal: Adequate fluid and electrolyte balance will be achieved and maintained Outcome: Progressing Adequate fluid and electrolyte balance will be achieved and maintained IV fluids infusing as ordered. Lab work drawn and sent as ordered. Problem: Infection: Goal: Will be free of signs and symptoms of infection Outcome: Progressing Patient receiving antibiotics per order. Patient afebrile. Problem: Coping: Goal: Ability to identify and develop effective coping behavior will improve and/or be maintained Outcome: Progressing Pt coping well while in labor and delivery. Plan to continue to offer support and education as needed. Problem: Knowledge Deficit: Goal: Ability to make informed decisions regarding treatment will improve Outcome: Progressing Pt verbalizes understanding of POC. All questions answered. Problem: Acute Pain: Goal: Ability to identify pain intensity on a pain scale and rate it consistently will be achieved and maintained Outcome: Progressing Goal: Acceptable level of pain which allows the patient to achieve functional outcome goals Outcome: Progressing Goal: Ability to identify factors that manage or decrease pain will be achieved Outcome: Progressing Problem: Safety: Goal: Patient will remain free of falls during hospital stay Outcome: Progressing Goal: Free from injury during hospitalization Outcome: Progressing Side rails up times two, bed locked in lowest position, call gomez within reach, non slip socks applied. Problem: Discharge Planning: Goal: Discharge needs of the adult patient will be met Outcome: Progressing No discharge concerns at this time. All questions answered. Pt verbalizes understanding of discharge disposition. [id number] Progress note* Progress Notes - NoteWriter - Jeff Renteria RN - 11/17/2024 3:11 PM EST Educated pt on a diabetic diet including amounts needed from each food group. Provided pt with pamphlets from [employer]. Pt verbalized an understanding. [id number] Hospital Note* Hospital Course - Magda Hanks DO - 11/17/2024 2:00 PM EST BERNADETTE Faust is a 29 year old POD#11 s/p emergent pLTCS with post- op course c/b intraperitoneal abscess now POD#2 s/p IR drain Abscess--cultures ngtd. Has been on zosyn for 48h, now on PO augmentin Appreciate gen surg input, will schedule this week with follow-up information Plan to follow up with them in a week for drain removal. 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 Recent Pos UTox--for SW consult [employer] Work Phone: [phone] Plan of care note* Care Plan Note - Jeff Eller RN - 11/17/2024 10:52 AM EST Problem: Routine Care: Goal: Patient care will be managed and maintained throughout hospital stay per unit specific routine care procedure Outcome: Progressing Problem: Hypertensive Disorder in : Goal: Risk for seizure in will be minimized Outcome: Progressing Problem: Fluid and Electrolyte Imbalance: Goal: Adequate fluid and electrolyte balance will be achieved and maintained Outcome: Progressing Problem: Infection: Goal: Will be free of signs and symptoms of infection Outcome: Progressing Problem: Coping: Goal: Ability to identify and develop effective coping behavior will improve and/or be maintained Outcome: Progressing Problem: Knowledge Deficit: Goal: Ability to make informed decisions regarding treatment will improve Outcome: Progressing Problem: Acute Pain: Goal: Ability to identify pain intensity on a pain scale and rate it consistently will be achieved and maintained Outcome: Progressing Goal: Acceptable level of pain which allows the patient to achieve functional outcome goals Outcome: Progressing Goal: Ability to identify factors that manage or decrease pain will be achieved Outcome: Progressing Problem: Safety: Goal: Patient will remain free of falls during hospital stay Outcome: Progressing Goal: Free from injury during hospitalization Outcome: Progressing Problem: Discharge Planning: Goal: Discharge needs of the adult patient will be met Outcome: Progressing [id number] Progress Note 11/17/2024 6:51 AM S: No acute events overnight. Pt is asleep this morning. Upon waking, pt endorses improving abdominal pain this morning. Last night passed firm BM and gas with discomfort. She denies vaginal discharge, increased bleeding, nausea, emesis, and dysuria. O: BP 140/88 (BP Location: left arm) Pulse 91 Temp 98.8 ???F (37.1 ???C) (Oral) Resp 15 SpO2 97% No Tmax (24 hours): 98.9 ???F (37.2 ???C) Blood pressure over the past 24 hours, as of 11/17/2024 6:51 AM: Systolic (24hrs), Av , Min:129 , Max:141 Diastolic (24hrs), Av, Min:79, Max:90 Gen: NAD, alert and oriented Abd: soft, tender with palpation in upper quadrants/ND, no suprapubic tenderness Ext: BLE edema, no calf tenderness SVE deferred A/P: BERNADETTE Faust is a 29 year old now POD#11 s/p emergent pLTCS with post-op course c/b intraperitoneal abscess POD#2 s/p IR drain #Intraperitoneal abscess - CT AP at OSH with 4.9 x 6.9 x 5.6 cm collection at RUQ/ hemicolon. - Repeat CT on 11/15/2024 - Afebrile, non-tachycardic, WBC 15.6, Hgb 10.2 - s/p EGS AND IR Consult, IR drainage 11/15 - 30ccs of purulent fluid was aspirated - Recommend Flexeril and Lidocaine patch for pain pain control; ordered - Drain output decreasing Drain flushes BID Transition IV Zosyn 3.375 mg q6hr to PO Augmentin 875-125 mg BID for 8 additional days Continue pain control with acetaminophen and motrin, PRN flexeril, lidocaine patches /10 by score Continue bowel regimen with miralax #Preeclampsia with severe features - s/p 24hrs Mg at OSH - s/p IV labet 20mg @ 2317 on 11/14; IV labet 40mg @ 0100 on 11/15 - Bps 140s/80s -- Patient with frontal headache -- IV Reglan, PO periactin and Tylenol PRN Continue regimen: Adalat 30mg BID, Labetalol 200 mg BID #T2DM - Admit HgbA1c 10 - Not insulin previously - Post-prandials blood sugars elevated; fasting 80 Current regimen Metformin 1000 mg daily and Lantus 14u at bedtime Insulin administration education #Hx Bipolar disorder - Patient reports taking adderall 20mg BID, and aprazolam PRN - OARRS report with no evidence of the above prescriptions in the last year Continue Lamictal 25 mg daily #Limited care, +Utox - 11/06/2024 tox positive for amphetamine, benzodiazepines, ecstasy, opioids. Opioids potentially due to anesthesia during C/S. SW consulted to arrange transportation #) - s/p pLTCS due to abruption, EBL >1000, received pRBCs per patient. - Rhpos/Requiv MMR ordered - Formula feeding, baby in NICU at outside facility - Contraception: none - 11/06/24 preliminary HIV Ab screen reactive, VL <20 at OSH. 11/15/24 HIV antibody on admit negative. #) DVT Prophylaxis -- Lovenox 40mg every day -- Encourage SCDs and ambulation Disposition: Discharge today with close follow up . Sarahy Estevez MD [facility] COMPUTER OPERATIONS TECHNICIAN PGY-1 MFM Attending Antepartum Progress Note 11/17/2024 I saw and evaluated the patient independently. I discussed the patient with Dr. Estevez. The complete OB record and inpatient history was reviewed and discussed with the resident. I agree with the resident's documentation above, except as noted below. ATTENDING HISTORY: S: Patient still reports pain in her abd, slightly better compared to yesterday. DATA PERSONALLY REVIEWED O: vitals reviewed, tm 37.1, Blood pressure over the past 24 hours, as of 11/17/2024 Systolic (24hrs), Av , Min:132 , Max:141 Diastolic (24hrs), Av, Min:79, Max:90 Gen: NAD, comfortable in bed Abd: soft, no guarding/ rebound. Tender over CS insision and at the drain site, area is soft Ext: no calf tenderness b/l, no edema Drain cultures: ngtd A/P: BERNADETTE Faust is a 29 year old POD#11 s/p emergent pLTCS with post-op course c/b intraperitoneal abscess now POD#2 s/p IR drain Abscess--cultures ngtd. Has been on zosyn for 48h, will transition to PO augmentin Appreciate gen surg in put. Plan to follow up with them in a week for drain removal. Will coordinate the appt to be made PRIOR to discharge For flexeril, lidocaine patches, tylenol, and motrin for pain --CS healing well, not , lochia normal, normla bowel function PreE with SF--currently normotensive to mild range, cont nifedipine 30mg XL BID and labetalol 200mg BID Migraines--h/a improved DM II--doing well on the lantus 14u with 1000mg metformin BID H/o Bipolar--Currently appropriate mood on no meds, chcf consider psych input Recent Pos UTox--for SW consult Plan: transition to PO meds and coordinate outpatient follow up I personally explained the management plan with the pt. I spent approximately 18 minutes of floor unit time on this patient visit. Genesis Samuels MD / [id number] [facility] Attending/ p [phone]01-18-2025 Plan of care note* Care Plan Note - Bridgette Justice RN - 11/16/2024 9:55 AM EST Problem: Routine Care: Goal: Patient care will be managed and maintained throughout hospital stay per unit specific routine care procedure Outcome: Progressing Pt with VS and temp Q4 hrs. I&O's Q4. House diet. BS per protocol. Up to BR with assist. Meds per orders. Problem: Hypertensive Disorder in : Goal: Risk for seizure in will be minimized Outcome: Progressing B/P this AM 132/86. Adalat and Labetalol given PO per orders. Problem: Fluid and Electrolyte Imbalance: Goal: Adequate fluid and electrolyte balance will be achieved and maintained Outcome: Progressing Pt tolerating PO fluids. Urine output WNL. Will continue to monitor. Problem: Infection: Goal: Will be free of signs and symptoms of infection Outcome: Progressing Pt afebrile. Abdomen extremely tender. Pt receiving IV antibiotics per orders. Pt draining small amount of purulent drainage (10cc this 4 hrs) from R side drain. Problem: Coping: Goal: Ability to identify and develop effective coping behavior will improve and/or be maintained Outcome: Progressing Pt with flat affect. Resting much of this AM. Pt is currently alone. Problem: Knowledge Deficit: Goal: Ability to make informed decisions regarding treatment will improve Outcome: Progressing Pt verbalized understanding of POC. Dr. Samuels at bedside this AM to answer all questions. Emotional support provided. Problem: Acute Pain: Goal: Ability to identify pain intensity on a pain scale and rate it consistently will be achieved and maintained Outcome: Progressing Pt able to rate pain using numeric pain scale without difficulty. Goal: Acceptable level of pain which allows the patient to achieve functional outcome goals Outcome: Progressing Pt c/o HERNADEZ pain 6/10 on pain scale. Pt given Periactin PO and Reglan IV to help with HERNADEZ. Pt rating abdominal pain and R sided incisional pain at drain site 7/10. Pt given 2 Lidocaine patches around drain bandage. Will give both Tylenol and Ibuprofen at 1030 as ordered. Goal: Ability to identify factors that manage or decrease pain will be achieved Outcome: Progressing Pt with lights off and quiet room environment at this time. Problem: Safety: Goal: Patient will remain free of falls during hospital stay Outcome: Progressing Safe environment maintained. Call gomez within reach. Side rails up x2. Bed in lowest, locked position. Goal: Free from injury during hospitalization Outcome: Progressing Pt remains injury free during this hospitalization. Purposeful hourly rounding continues. Problem: Discharge Planning: Goal: Discharge needs of the adult patient will be met Outcome: Progressing Pt to be d/c'd to home when medically stable and with physician order. Pt aware of POC. Discussed with Dr. Samuels this AM. [id number] NoteMFM Attending Antepartum Progress Note 11/16/2024, 8:45 AM. Pt seen at 0740 ATTENDING HISTORY: S: Patient c/o h/a and pain in her abd at the site of the drain and her CS. Reports a h/o migraines at home DATA PERSONALLY REVIEWED O: vitals reviewed, tm 36.8, VSS Gen: NAD, comfortable in bed Abd: soft, pt reports diffuse tenderness to light touch. No guarding/rebound Inc: CS site c/d/I, drain site covered with dressing, scant purulent material in the drain bag Ext: no calf tenderness b/l, no edema Cultures: ngtd Fingerstick Glucose Glucose 11/16/24 0636 97 11/15/24 2206 150 Comment: Follow Protocol Notified BENTLEY POLLOCK MD 11/15/242005 83 11/15/24 1620 137 11/15/24 1443 213 A/P: BERNADETTE Faust is a 29 year old POD#10 s/p emergent pLTCS with post-op course c/b intraperitoneal abscess now POD#1 s/p IR drain Abscess--appreciate IR assistance. Drain placed yesterday. Cultures pending. Will continue on zosyn pending cultures Gen surg saw patient and discussed her with me. Again reviewed images and do NOT think there was a bowel perforation. Recommend leaving drain in for a week For flexeril, lidocaine patches --CS healing well, not , reports baby doing well in the NICU PreE with SF--currently normotensive to mild range, cont nifedipine 30mg XL BID and labetalol 200mg BID Migraines--for reglan, tylenol, and will have PRN sumatriptan DM II--started on lantus 14u at bedtime yesterday, fasting 97 this AM, will cont lantus for now along with her merformin 1000mg BID H/o Bipolar--pt reports multiple meds, none noted in her chart/OARRS. Currently appropriate mood, consider psych consult Recent Pos UTox--for SW consult Plan: cont zosyn, await cultures, will address pain (abd and h/a) I personally explained the management plan with the pt. I spent approximately 20 minutes of floor unit time on this patient visit. Genesis Samuels MD / [id number] [facility] Attending/ p [phone]01-18-2025 Hospital Discharge instructions* Discharge Instructions* Annie Parker APRN-DENIA - 11/16/2024 8:45 AM EST Wound Care and Showering/Bathing: - Okay to shower daily. - Do not get your drain site wet for any reason. This includes protecting it from shower water and in the rain. - If you cannot keep your drain site completely sealed and dry then you should not shower. Sponge baths are the best way to maintain hygiene while your are healing. - To sponge bath, wet a washcloth with soapy water and gently wash body with the washcloth. Then use a dry washcloth to wipe off. - Make sure you cover your drain site VERY well with plastic when you shower. Once you are out of the shower, remove the plastic and dry off very well. Then re-apply dressings, if needed. - If you notice any increased redness swelling or drainage from your wound call our office immediately. - If you begin to experience progressive and rapidly increasing pain that seems out of proportion to what you normally have been experiencing from your baseline pain after surgery/injury, or if your fingers become numb and/or turn blue and cold - you NEED TO CALL US IMMEDIATELY. Alternatively, you may come into the [facility] Emergency Department IMMEDIATELY for an emergent evaluation by the Trauma resident. Drain Care: - Keep the drain skin area clean by using a warm washcloth. - Record your drain output daily using attached table. * Attachments The following attachments cannot be sent through Care Everywhere. * How to Keep Track of Your Drainage (Chinese) * How to Care for an Abdominal Drainage Catheter (Chinese) documented in this [id number] NoteAPU Progress Note 11/16/2024 6:37 AM S: No acute events overnight. No new complaints this morning. Denies painful cxns, LOF, or vaginal bleeding. +FM. O: BP 130/73 (BP Location: left arm) Pulse 79 Temp 98 ???F (36.7 ???C) (Oral) Resp 16 SpO2 95% No Tmax (24 hours): 98.2 ???F (36.8 ???C) Blood pressure over the past 24 hours, as of 11/16/2024 6:37 AM: Systolic (24hrs), Av , Min:110 , Max:139 Diastolic (24hrs), Av, Min:66, Max:91 11/15/2024 11/15/2024 OB Pre-eclampsia Labs Hgb 9.6 10.2 Hct 28.9 30.7 RBC 3.56 3.85 WBC 14.5 15.6 Mch 26.9 26.4 Mchc 33.1 33.0 Mcv 81 80 BUN 9 Creatinine 0.67 Uric Acid 3.6 Ast 15 Alt 11 Pt Pt 11.7 Pt Pat 11.7 Plt 457 360 Lab Results Component Value Date/Time DSTICK 97 11/16/2024 06:36 AM DSTICK 150 (H) 11/15/2024 10:06 PM DSTICK 83 11/15/2024 08:06 PM DSTICK 137 (H) 11/15/2024 04:20 PM DSTICK 213 (H) 11/15/2024 02:43 PM DSTICK 128 (H) 11/15/2024 08:28 AM DSTICK 198 (H) 11/15/2024 04:28 AM DSTICK 203 (H) 11/15/2024 03:14 AM DSTICK 225 (H) 11/15/2024 12:39 AM Gen: NAD, alert and oriented Card: Warm and well perfused Resp: Normal work of breathing on room air Abd: soft, NT/ND, TTP on right side, RUQ drain with ~ 30 ccs of purulent fluid. Ext: no BLE edema, no calf tenderness SVE deferred A/P: BERNADETTE Faust is a 29 year old POD #10 who was admitted for RUQ pain and RUQ fluid collection concerning for intra-abdominal abscess vs bowel perforation #) suspected intra-abdominal abscess - CT AP at OSH with 4.9 x 6.9 x 5.6 cm collection at RUQ/ hemicolon. - images in powershare - Repeat CT on 11/15/2024 Findings: Trace amounts of free fluid within both pericolic gutters and subhepatic region and a small amount of free fluid within the pelvis and cul-de-sac surrounding the uterus. Mild diverticulosis of the redundant sigmoid colon with no evidence of diverticulitis. There is no evidence of free air throughout the abdomen and pelvis. The small bowel is opacified with oral contrast and normal with no evidence of obstruction or inflammatory change. - afebrile, non-tachycardic, WBC 15.6, Hgb 10.2 - s/p EGS consult, IR drainage - 30ccs of purulent fluid was aspirated - Recommend Flexeril and Lidocaine patch for pain pain control; ordered - cont IV zosyn - RUQ ultrasound ordered #) Preeclampsia with severe features -- s/p 24hrs Mg at OSH. -- s/p IV labet 20mg @ 2317 on 11/14 -- s/p IV labet 40mg @ 0100 on 11/15 -- Bps currently normotensive -- current regimen: adalat 30mg BID, labetalol 200mg BID -- Patient with frontal headache -- IV Reglan, PO periactin and Tylenol PRN #) T2DM -- HgbA1c on admit 10 -- current regimen metformin 1000 mg daily -- had not been on insulin previously -- blood sugars elevated, plan to start weight based insulin regimen #) Hx Bipolar disorder -- patient reports taking adderall 20mg BID, and aprazolam PRN -- OARRS report with no evidence of the above prescriptions in the last year -- plan for psych consult #) limited care, +Utox -- SW consulted -- 11/06/2024 tox positive for amphetamine, benzodiazepines, ecstasy, opioids. Opioids potentially due to anesthesia during C/S. #) Reported hx of TIA vs complex migraine vs MS -- on chart review and neurology note from 2020, no evidence of CVA on imaging and neurology prescribed ajovy for migraines. #) -- s/p pLTCS due to abruption, EBL >1000, received pRBCs per patient. -- Rhpos/Requiv -- formula feeding, baby in NICU -- Contraception: none -- 11/06/24 preliminary HIV Ab screen reactive, VL <20 at OSH. 11/15/24 HIV antibody on admit negative. #) DVT Prophylaxis -- Lovenox 40mg every day -- Encourage SCDs and ambulation Dispo: Plan to keep inpatient over the weekend to continue monitoring for pain. Pako Maki DO MPH [facility] Obstetrics AND Gynecology - PGY 1[facility]01-17-2025 Plan of care note* Care Plan Note - Jeff Renteria, RN - 11/15/2024 7:23 PM EST Problem: Routine Care: Goal: Patient care will be managed and maintained throughout hospital stay per unit specific routine care procedure 11/15/20241922 by Jeff Renteria RN Outcome: Progressing 11/15/2024 115 by Jeff Renteria RN Outcome: Progressing Problem: Hypertensive Disorder in : Goal: Risk for seizure in will be minimized 11/15/20241922 by Jeff Renteria RN Outcome: Progressing 11/15/2024 115 by Jeff Renteria RN Outcome: Progressing Problem: Fluid and Electrolyte Imbalance: Goal: Adequate fluid and electrolyte balance will be achieved and maintained 11/15/20241922 by Jeff Renteria RN Outcome: Progressing 11/15/2024 115 by Jeff Renteria RN Outcome: Progressing Problem: Infection: Goal: Will be free of signs and symptoms of infection 11/15/20241922 by Jeff Renteria RN Outcome: Progressing 11/15/2024 115 by Jeff Renteria RN Outcome: Progressing Problem: Coping: Goal: Ability to identify and develop effective coping behavior will improve and/or be maintained 11/15/20241922 by Jeff Renteria RN Outcome: Progressing 11/15/2024 115 by Jeff Renteria RN Outcome: Progressing Problem: Knowledge Deficit: Goal: Ability to make informed decisions regarding treatment will improve 11/15/20241922 by Jeff Renteria RN Outcome: Progressing 11/15/2024 115 by Jeff Renteria RN Outcome: Progressing Problem: Acute Pain: Goal: Ability to identify pain intensity on a pain scale and rate it consistently will be achieved and maintained 11/15/20241922 by Jeff Renteria RN Outcome: Progressing 11/15/2024 115 by Jeff Renteria RN Outcome: Progressing Goal: Acceptable level of pain which allows the patient to achieve functional outcome goals 11/15/20241922 by Jeff Renteria RN Outcome: Progressing 11/15/2024 115 by Jeff Renteria RN Outcome: Progressing Goal: Ability to identify factors that manage or decrease pain will be achieved 11/15/20241922 by Jeff Renteria RN Outcome: Progressing 11/15/2024 1151 by Jeff Renteria RN Outcome: Progressing Problem: Safety: Goal: Patient will remain free of falls during hospital stay 11/15/20241922 by Jeff Renteria RN Outcome: Progressing 11/15/2024 1151 by Jeff Renteria RN Outcome: Progressing Goal: Free from injury during hospitalization 11/15/20241922 by Jeff Renteria RN Outcome: Progressing 11/15/2024 115 by Jeff Renteria RN Outcome: Progressing Problem: Discharge Planning: Goal: Discharge needs of the adult patient will be met 11/15/20241922 by Jeff Renteria RN Outcome: Progressing 11/15/2024 115 by Jeff Renteria RN Outcome: Progressing [id number] NotePOST-PROCEDURE NOTE Procedure: CT guided drained placement in intraabdominal fluid collection Pre-operative Diagnosis: Intraabdominal fluid collection adjacent to suspected colonic perforation Post-operative Diagnosis: same Attending: Chica Andres MD Billet Worker: Becky Zayas MD A TIME OUT was performed prior to the procedure using active communication to verify correct patient, procedure, and site: Yes Intraoperative Medications: Complications: None Specimens: 30 cc's of purulent fluid was aspirated and sent with the patient Estimated Blood Loss: less than 10 cc Post Procedure Pain Ratin/10 Findings: Technically successful placement of a 12Fr drain in a right upper quadrant fluid collection adjacent to a suspected colonic perforation Plan: Remainder of plan per primary. Please see procedure dictation in EPIC/PACS for full procedural details. Becky Zayas MD [facility]01[facility]25 Surgery Postoperative evaluation and management note* Post-Procedure Note - Becky Zayas MD - 11/15/2024 5:34 PM EST POST-PROCEDURE NOTE Procedure: CT guided drained placement in intraabdominal fluid collection Pre-operative Diagnosis: Intraabdominal fluid collection adjacent to suspected colonic perforation Post-operative Diagnosis: same Attending: Chica Andres MD Billet Worker: Becky Zayas MD A TIME OUT was performed prior to the procedure using active communication to verify correct patient, procedure, and site: Yes Intraoperative Medications: Complications: None Specimens: 30 cc's of purulent fluid was aspirated and sent with the patient Estimated Blood Loss: less than 10 cc Post Procedure Pain Ratin/10 Findings: Technically successful placement of a 12Fr drain in a right upper quadrant fluid collection adjacent to a suspected colonic perforation Plan: Remainder of plan per primary. Please see procedure dictation in EPIC/PACS for full procedural details. Becky Zayas MD Radiology Cosigned by Chica Andres MD at 11/18/2024 9:48 AM EST [id number] History and physical note* Becky Zayas MD - 11/15/2024 4:33 PM EST MODIFIED HISTORY AND PHYSICAL: HISTORY: Procedure: CT guided intraabdominal drain placement Indication: Intraabdominal collection next to suspected colonic perforation Past Medical History: Diagnosis Date Intractable chronic migraine without aura and without status migrainosus 2017 complex migraine, negative MS workup, on ajovy q3mo Lesion of left nipple 02/09/2017 s/p excision of lesion + milk duct, pathology benign, 2016 mammo benign TIA (transient ischemic attack) 12/2016 presented to ED for L sided weakness, CTH/CTA/MRI wnl, vs complex migraine Diabetes: no Sleep Apnea: no Excessive Obesity: no Hepatic Disease: no Renal Disease: no Substance Abuse History: History Drug Use Not on file Current Facility-Administered Medications Medication Dose Route Frequency Last Rate Last Admin [START ON 11/16/2024] enoxaparin (LOVENOX) 40 MG/0.4ML injection 40 mg 40 mg Subcutaneous Daily lamoTRIgine (LaMICtal) tablet 25 mg Oral Daily metFORMIN (GLUCOPHAGE) tablet 1,000 mg Oral 2x Daily with Meals insulin glargine (LANTUS SOLOSTAR/BASAGLAR KWIKPEN) 100 UNIT/ML PEN injection 14 Units SubcutaneousAt Bedtime sodium chloride 0.9 % iv infusion 1,000 mL Intravenous Continuous Stopped at 11/15/24 1518 metoclopramide (REGLAN) 5 MG/ML injection 10 mg Intravenous Push Q6H PRN 10 mg at 11/15/24 1222 ibuprofen (MOTRIN) tablet 600 mg Oral Every 6 hours 600 mg at 11/15/24 1511 measles, mumps and rubella (MMR) chargeable vaccine 0.5 mL Subcutaneous Vaccinate Once acetaminophen (TYLENOL) tablet 1,000 mg Oral Every 6 hours 1,000 mg at 11/15/24 1511 oxyCODONE immediate release tablet 5 mg Oral Q4H PRN Or oxyCODONE immediate release tablet 10 mg Oral Q4H PRN NIFEdipine (ADALAT CC) 24 hour tablet 30 mg Oral BID 30 mg at 11/15/24 1511 piperacillin-tazobactam in D5W (ZOSYN) 3,375 mg in dextrose 50 mL ivpb 3.375 g Intravenous Q6H Antibiotic 100 mL/hr at 11/15/24 0800 3,375 mg at 11/15/24 0800 ondansetron (ZOFRAN) 4 MG/2ML injection 4 mg Intravenous Push Every 6 hours 4 mg at 11/15/24 1511 labetalol (NORMODYNE) tablet 200 mg Oral 2x Daily 200 mg at 11/15/24 0113 labetalol (TRANDATE) 5 mg/mL injection 80 mg Intravenous Push Once PRN And hydrALAZINE (APRESOLINE) 20 mg/mL injection 10 mg Intravenous Push Once PRN Allergies: Verapamil, Botulinum toxin type a, Onabotulinumtoxina, Bandage tape, and Latex PHYSICAL EXAM: Blood pressure 127/80, pulse 79, temperature 97.8 F (36.6 C), temperature source Oral, resp. rate 16, SpO2 95%, not currently . Lungs: Clear to auscultation bilaterally Heart: Regular rate and rhythm Pertinent Findings: Labs Reviewed? Yes Recent Labs: Result for specified components in the past 45 days Component Date/Time Result Units Hemoglobin 11/15/2024 4:30 PM 9.6 g/dL Hematocrit 11/15/2024 4:30 PM 28.9 % Platelet 11/15/2024 4:30 PM 457 K/uL aPTT 11/15/2024 5:52 AM 27 sec Protime 11/15/2024 5:52 AM 11.7 sec INR 11/15/2024 5:52 AM 1.04 FXAUN --- not found ANTIFXALMWHE --- not found Creatinine 11/15/2024 5:52 AM 0.67 mg/dL Planned Sedation: Moderate Planned Sedation Medications: VERSED (midazolam) and fentanyl ASA Classification: Class II: Individual with one system well controlled disease. Disease does not affect daily living. Mallampati Airway Assessment: Class II Faucial pillars, soft palate visible Patient or family history of adverse reactions involving sedation/anesthesia: No family history of adverse reaction PRE-PROCEDURE VERIFICATION: Site of Procedure: right Site Marked pre-procedure: Yes Pre-Procedure Pain Ratin/10 Advanced Directives (Living will, health care power of crime data specialist): none Patient Recent Code Status: Full Code Code Status For This Procedure: Full Code Becky Zayas MD Radiology [employer] Work Phone: [phone]) 794-189301-17-2025 History and physical note* Becky Zayas MD - 11/15/2024 4:33 PM EST MODIFIED HISTORY AND PHYSICAL: HISTORY: Procedure: CT guided intraabdominal drain placement Indication: Intraabdominal collection next to suspected colonic perforation Past Medical History: Diagnosis Date Intractable chronic migraine without aura and without status migrainosus 2017 complex migraine, negative MS workup, on ajovy q3mo Lesion of left nipple 02/09/2017 s/p excision of lesion + milk duct, pathology benign, 2016 mammo benign TIA (transient ischemic attack) 12/2016 presented to ED for L sided weakness, CTH/CTA/MRI wnl, vs complex migraine Diabetes: no Sleep Apnea: no Excessive Obesity: no Hepatic Disease: no Renal Disease: no Substance Abuse History: History Drug Use Not on file Current Facility-Administered Medications Medication Dose Route Frequency Last Rate Last Admin [START ON 11/16/2024] enoxaparin (LOVENOX) 40 MG/0.4ML injection 40 mg 40 mg Subcutaneous Daily lamoTRIgine (LaMICtal) tablet 25 mg Oral Daily metFORMIN (GLUCOPHAGE) tablet 1,000 mg Oral 2x Daily with Meals insulin glargine (LANTUS SOLOSTAR/BASAGLAR KWIKPEN) 100 UNIT/ML PEN injection 14 Units SubcutaneousAt Bedtime sodium chloride 0.9 % iv infusion 1,000 mL Intravenous Continuous Stopped at 11/15/24 1518 metoclopramide (REGLAN) 5 MG/ML injection 10 mg Intravenous Push Q6H PRN 10 mg at 11/15/24 1222 ibuprofen (MOTRIN) tablet 600 mg Oral Every 6 hours 600 mg at 11/15/24 1511 measles, mumps and rubella (MMR) chargeable vaccine 0.5 mL Subcutaneous Vaccinate Once acetaminophen (TYLENOL) tablet 1,000 mg Oral Every 6 hours 1,000 mg at 11/15/24 1511 oxyCODONE immediate release tablet 5 mg Oral Q4H PRN Or oxyCODONE immediate release tablet 10 mg Oral Q4H PRN NIFEdipine (ADALAT CC) 24 hour tablet 30 mg Oral BID 30 mg at 11/15/24 1511 piperacillin-tazobactam in D5W (ZOSYN) 3,375 mg in dextrose 50 mL ivpb 3.375 g Intravenous Q6H Antibiotic 100 mL/hr at 11/15/24 0800 3,375 mg at 11/15/24 0800 ondansetron (ZOFRAN) 4 MG/2ML injection 4 mg Intravenous Push Every 6 hours 4 mg at 11/15/24 1511 labetalol (NORMODYNE) tablet 200 mg Oral 2x Daily 200 mg at 11/15/24 0113 labetalol (TRANDATE) 5 mg/mL injection 80 mg Intravenous Push Once PRN And hydrALAZINE (APRESOLINE) 20 mg/mL injection 10 mg Intravenous Push Once PRN Allergies: Verapamil, Botulinum toxin type a, Onabotulinumtoxina, Bandage tape, and Latex PHYSICAL EXAM: Blood pressure 127/80, pulse 79, temperature 97.8 F (36.6 C), temperature source Oral, resp. rate 16, SpO2 95%, not currently . Lungs: Clear to auscultation bilaterally Heart: Regular rate and rhythm Pertinent Findings: Labs Reviewed? Yes Recent Labs: Result for specified components in the past 45 days Component Date/Time Result Units Hemoglobin 11/15/2024 4:30 PM 9.6 g/dL Hematocrit 11/15/2024 4:30 PM 28.9 % Platelet 11/15/2024 4:30 PM 457 K/uL aPTT 11/15/2024 5:52 AM 27 sec Protime 11/15/2024 5:52 AM 11.7 sec INR 11/15/2024 5:52 AM 1.04 FXAUN --- not found ANTIFXALMWHE --- not found Creatinine 11/15/2024 5:52 AM 0.67 mg/dL Planned Sedation: Moderate Planned Sedation Medications: VERSED (midazolam) and fentanyl ASA Classification: Class II: Individual with one system well controlled disease. Disease does not affect daily living. Mallampati Airway Assessment: Class II Faucial pillars, soft palate visible Patient or family history of adverse reactions involving sedation/anesthesia: No family history of adverse reaction PRE-PROCEDURE VERIFICATION: Site of Procedure: right Site Marked pre-procedure: Yes Pre-Procedure Pain Ratin/10 Advanced Directives (Living will, health care power of crime data specialist): none Patient Recent Code Status: Full Code Code Status For This Procedure: Full Code Becky Zayas MD Radiology * Aedlfo Nice MD - 11/15/2024 12:39 AM EST Images from the original note were not included. LABOR AND DELIVERY HISTORY AND PHYSICAL NOTE 11/15/2024 4:44 AM Chief complaint: Chief Complaint Patient presents with Abdominal pain Post c/s 11/06/23 - right upper side per pt an abdominal cyst BERNADETTE Faust is a 29 year old at POD#9 s/p emergent pLTCS at 34w for abruption and pre-eclampsia with SF who presents to Labor and Delivery for acutely worsening RUQ pain transferred from [facility]. RUQ pain has been present since patient had sudden abruption of >1L blood loss at home. States pain had never improved during her post-operative course but was discharged without her pain being addressed properly. It worsened to the point of acute pain with tenderness to palpation. She denies nausea and vomiting but has some difficulty eating and breathing due to pressure from above on her RUQ. She denies HERNADEZ, visual changes. Lochia is minimal. Meeting all post-operative milestones otherwise. Her has been complicated by: Suspected intra-abdominal abscess Received IV zosyn at OSH WBC on admission 15.6 VS: Afebrile at OSH, in triage, Non tachycardia, hypertensive (see PreE) Pre-eclampsia with SF Dx on admission by SR blood pressures, admission for emergency CS for abruption, s/p IV Mg 11/06-11/07 Current regimen: adalat 30 mg BID, labetalol 200 mg BID (last took 11/14 0930) SR Bps in triage - received IV labetalol 20 mg Symptomatic for RUQ pain only Hx of CS x1 Emergency at 34w due to abruption, sPreE PPH >1L, received 1u pRBCs per patient T2DM Long standing history of HbA1c >8 per chart review HbA1c on admission = 10% Current regimen: metformin 1000 mg daily BG on admission 225 Hx of shoulder dystocia 2013 of 11# with shoulder dystocia, had clavicle fracture Hx of D&C, delayed PPH 2013 D&C 3d after , delayed PPH, due to RPOC Abnormal urine toxicology screen 11/06/2024 urine screen: +amphetamine, +benzodiazepines. +ecstasy, +opioid Previously has been prescribed Adderall, alprazolam Potentially +opioids from anesthesia during CS Patient explains other drugs as above, unsure how she was positive for ecstasy Hx of TIA vs complex migraine vs MS Patient reported as stroke Dx 12/2016 - presented to ED for L sided weakness and L hearing loss. 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 ASA has had MS work-up due to concurrent rash per neurology note on 09/2021 - taking subcutaneous ajovy q3mo Denies new neurologic symptoms Hx of left nipple lesion Dx 2016, patient reports this was breast cancer for which she received a lumpectomy and was on tamoxifen therapy Per chart review, saw general surgery at OSH 01/2017 and had inverted nipple with bloody discharge 02/2016 mammogram benign 02/09/17 S/p excision lesion of left nipple + microdochectomy (removal of milk duct): pathology benign Hx appendectomy 05/2006 HIV in Dx at OSH on admission for CS 11/06/24 preliminary HIV Ab screen reactive, VL <20 Hx of bipolar disorder Unclear dx on chart review Per patient sees outside provider who prescribed her adderral, lamictal, and bupropion isac, alprazolam PRN Takes adderral 20 mg BID, last took 11/14 Takes alprazolam PRN, last use days ago Dating Summary No data available OB History Para Term AB Living 3 2 1 1 1 2 SAB IAB Ectopic Multiple Live Births 2 # Outcome Date GA Lbr Wan/2nd Weight Sex Type Anes PTL Lv 3 11/06/24 34w0d cs esther lt Gen [facility]UC[facility]LE Comments: emergent LTCS for abruption 34w, PPH requiring 1u pRBC Complications: Hemorrhage, Abruptio Placenta 2 Term 2014 Spont vag LUC[facility]LE Comments: IOL oligohydramnios, uncontrolled T2DM, 11# shoulder dystocia with clavicle fracture, delayed PPH 3d later requiring D&C Complications: Retained placenta, Shoulder Dystocia, Hemorrhage 1 AB SAB Comments: D&C Prior Delivery: Yes None. Prior Shoulder Dystocia: Yes. Prior Delivery: Yes. Low transverse. Number of prior Deliveries 1.. Diabetes in : Pregestational type II. Hypertension in : Pre-eclampsia WITH severe features Infertility treatment: None. Conditions: None Anatomic Malformations: None Other Maternal Medical Conditions: Neurologic disease. Infections in : HIV. History: Had total of less than 3 visits. Past Medical History: Diagnosis Date Intractable chronic migraine without aura and without status migrainosus 2016 complex migraine, negative MS workup, on ajovy q3mo Lesion of left nipple 02/09/2017 s/p excision of lesion + milk duct, pathology benign, 2016 mammo benign TIA (transient ischemic attack) 12/2016 presented to ED for L sided weakness, CTH/CTA/MRI wnl, vs complex migraine Past Surgical History: Procedure Laterality Date APPENDECTOMY 05/2006 DELIVERY ONLY 11/06/2024 PPH, 1u PRBC DILATION & CURETTAGE, DX &/OR THERAPEUTIC (NONOBSTETRICAL) 2014 delayed PPH, RPOC DILATION & CURETTAGE, DX &/OR THERAPEUTIC (NONOBSTETRICAL) SAB EXCISION, BREAST LESION(S), OPEN, MALE/FEMALE; 1 OR MORE Left 02/09/2017 left nipple lesion + milk duct TONSILLECTOMY & ADENOIDECTOMY; AGE 12+ No family history on file. Allergies Allergen Reactions Verapamil Anaphylactic Shock Botulinum Toxin Type A Itching Onabotulinumtoxina Itching, Rash and Swelling Face tingling and skin itching. Bandage Tape Rash Latex Other and Rash No current facility-administered medications on file prior to encounter. Current Outpatient Medications on File Prior to Encounter Medication Sig Dispense Refill ALPRAZolam (XANAX) 0.25 MG tablet Take 1 mg by mouth 3 times daily as needed for Anxiety. amphetamine-dextroamphetamine (ADDERALL) 5 MG tablet Take 20 mg by mouth 2 times daily. OB Problem List None noted. Problems (from 11/14/24 to present) Problem Noted Diagnosed Resolved Pre-eclampsia, antepartum (HCC) 11/15/2024 by Janna Carrasco MD No Review Of Systems: Skin: bruises where IV was attempted Eyes: negative review of symptoms Ears/Nose/Throat: negative Respiratory: dyspnea on exertion Cardiovascular: negative symptoms Gastrointestinal: RUQ pain Genitourinary: no urinary symptoms Neurologic: negative symptoms O: BP 113/73 (BP Location: left arm) Pulse 81 Temp 98 F (36.7 C) (Oral) Resp 18 SpO2 95% Unknown GEN: NAD Neck: thyroid not enlarged CV: Regular rate and rhythm Lungs: Clear bilaterally Abd: exquisite TTP in RUQ towards R midline - unable to fully perform exam due to patient discomfort. No TTP in other quadrants, incision c/d/I without incisional pain Back: no CVAT Ext: no edema, non-tender 11/15/2024 OB Pre-eclampsia Labs Hgb 10.2 Hct 30.7 RBC 3.85 WBC 15.6 Mch 26.4 Mchc 33.0 Mcv 80 BUN 9 Creatinine 0.67 Uric Acid 3.6 Ast 15 Alt 11 Pt Pt 11.7 Pt Pat 11.7 Plt 360 11/15/2024 12:52 AM Protime 11.7 INR 1.04 Hemoglobin A1c 10.0 (H) Estimated Avg Glucose 240 aPTT 27 Fibrinogen 793 (H) A/P: 29 year old at POD#8 s/p emergency pLTCS for abruption +NRFS with Pre-eclampsia with SF here for intra-abdominal abscess, blood pressure management. #) Suspected Intra-abdominal abscess - dx by CTAP in OSH - 4.9 x 6.9 x 5.6 cm in RUQ/R hemicolon - VS: AF, non-tachycardic, hypertensive (see PreEwSF) - labs: WBC 15.6, L shift; hgb 10.2 - stable from OSH - EGS consulted, appreciate recs: - received IV zosyn x1 at OSH, continued on this admission - low suspicion for intra-abdominal bleeding given Hgb stable, coags wnl, low concern on imaging - possible HIV infection 11/06 HIV Ab +, 11/11 HIV VL <20, last check in 2019 HIV negative - Bcx ordered - ID consulted regarding antibiotic plan #) Pre-eclampsia WITH severe features - Dx by persistent SR Bps requiring short acting anti-hypertensives in triage - in CS admission 11/06-11/09/24, dx by persistent SR BPs received 24h IV Mg, started on long-acting meds - Persistent SR - @11/14 2317 - received IV labetalol 20 mg - @11/15 0100 - received IV labetalol 40 mg - Bps : 120s-150s/90s - Long-acting anti-hypertensive meds: adalat 30 mg BID, labetalol 200 mg BID, ordered on admission - can consider increasing if remaining hypertensive - no indication to restart IV Magnesium for seizure prophylaxis given no pre- eclampsia symptoms/HERNADEZ - Serum HELLP labs unremarkable - Symptomatic for RUQ pain only, see above - Continue to monitor for s/sx of worsening HTN disease - To be discharged with team primary care physician and short interval BP check nurse visit #) T2DM - Long standing history of HbA1c >8 per chart review - HbA1c on admission = 10% - Current regimen: metformin 1000 mg daily - BG on admission 225 - received 2 units lispro - POCT glucose ordered per protocol #) Hx of TIA vs complex migraine vs MS - Dx 12/2016 - presented to ED for L sided weakness and L hearing loss. Possible TIA - 12/2016 CTH/CTA/MRI head unremarkable - AC regimen: chcf baby ASA - has had MS work-up due to concurrent rash - per neurology note on 09/2021 - taking subcutaneous ajovy q3mo - Denies new neurologic symptoms #) Abnormal urine toxicology screen - 11/06/2024 urine screen: +amphetamine, +benzodiazepines. +ecstasy, +opioid - Previously has been prescribed Adderall, alprazolam - Potentially +opioids from anesthesia during CS - Patient explains other drugs as above, unsure how she was positive for ecstasy - amenable to Utox, ordered - given unclear history and social situation, SW consult ordered #) Hx of bipolar disorder - Unclear dx on chart review - Per patient sees outside provider who prescribed her adderral, lamictal, and bupropion isac, alprazolam PRN - Takes adderral 20 mg BID, last took 11/14 - Takes alprazolam PRN, last use days ago #) Routine - Afebrile, VSS - meeting all PP milestones - A Positive/ rubella equivocal - MMR ordered - Formula feeding - Female Sterilization contraception - desires interval TL Janna Carrasco MD/MPH COMPUTER OPERATIONS TECHNICIAN PGY-2 LABOR AND DELIVERY ATTENDING PHYSICIAN NOTE: I saw and evaluated this patient on labor and delivery triage with the resident. I personally obtained the vizcaino and critical portions of the visit. I reviewed the documentation and discussed the patient with the resident. I agree with the findings and medical decision making as documented in the resident's note. A/P: BERNADETTE Faust is a 29 year old at POD#8 s/p emergency pLTCS for abruption +NRFS with Pre-eclampsia with SF here for intra-abdominal abscess, blood pressure management. - transfer to L&D High-Risk unit - plan as in resident's note I personally explained the management plan to the patient. Adelfo Nice MD, PhD, FACOG 11/15/24 6:[address] Nice. 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 status migrainosus 2017 complex migraine, negative MS workup, on ajovy q3mo Lesion of left nipple 02/09/2017 s/p excision of lesion + milk duct, pathology benign, 2016 mammo benign TIA (transient ischemic attack) 12/2016 presented to ED for L sided weakness, CTH/CTA/MRI wnl, vs complex migraine Diabetes: no Sleep Apnea: no Excessive Obesity: no Hepatic Disease: no Renal Disease: no Substance Abuse History: History Drug Use Not on file Current Facility-Administered Medications Medication Dose Route Frequency Last Rate Last Admin [START ON 11/16/2024] enoxaparin (LOVENOX) 40 MG/0.4ML injection 40 mg 40 mg Subcutaneous Daily lamoTRIgine (LaMICtal) tablet 25 mg Oral Daily metFORMIN (GLUCOPHAGE) tablet 1,000 mg Oral 2x Daily with Meals insulin glargine (LANTUS SOLOSTAR/BASAGLAR KWIKPEN) 100 UNIT/ML PEN injection 14 Units Subcutaneous At Bedtime sodium chloride 0.9 % iv infusion 1,000 mL Intravenous Continuous Stopped at 11/15/24 1518 metoclopramide (REGLAN) 5 MG/ML injection 10 mg Intravenous Push Q6H PRN 10 mg at 11/15/24 1222 ibuprofen (MOTRIN) tablet 600 mg Oral Every 6 hours 600 mg at 11/15/24 1511 measles, mumps and rubella (MMR) chargeable vaccine 0.5 mL Subcutaneous Vaccinate Once acetaminophen (TYLENOL) tablet 1,000 mg Oral Every 6 hours 1,000 mg at 11/15/24 1511 oxyCODONE immediate release tablet 5 mg Oral Q4H PRN Or oxyCODONE immediate release tablet 10 mg Oral Q4H PRN NIFEdipine (ADALAT CC) 24 hour tablet 30 mg Oral BID 30 mg at 11/15/24 1511 piperacillin-tazobactam in D5W (ZOSYN) 3,375 mg in dextrose 50 mL ivpb 3.375 g Intravenous Q6H Antibiotic 100 mL/hr at 11/15/24 0800 3,375 mg at 11/15/24 0800 ondansetron (ZOFRAN) 4 MG/2ML injection 4 mg Intravenous Push Every 6 hours 4 mg at 11/15/24 1511 labetalol (NORMODYNE) tablet 200 mg Oral 2x Daily 200 mg at 11/15/24 0113 labetalol (TRANDATE) 5 mg/mL injection 80 mg Intravenous Push Once PRN And hydrALAZINE (APRESOLINE) 20 mg/mL injection 10 mg Intravenous Push Once PRN Allergies: Verapamil, Botulinum toxin type a, Onabotulinumtoxina, Bandage tape, and Latex PHYSICAL EXAM: Blood pressure 127/80, pulse 79, temperature 97.8 ???F (36.6 ???C), temperature source Oral, resp. rate 16, SpO2 95%, not currently . Lungs: Clear to auscultation bilaterally Heart: Regular rate and rhythm Pertinent Findings: Labs Reviewed? Yes Recent Labs: Result for specified components in the past 45 days Component Date/Time Result Units Hemoglobin 11/15/2024 4:30 PM 9.6 g/dL Hematocrit 11/15/2024 4:30 PM 28.9 % Platelet 11/15/2024 4:30 PM 457 K/uL aPTT 11/15/2024 5:52 AM 27 sec Protime 11/15/2024 5:52 AM 11.7 sec INR 11/15/2024 5:52 AM 1.04 FXAUN --- not found ANTIFXALMWHE --- not found Creatinine 11/15/2024 5:52 AM 0.67 mg/dL Planned Sedation: Moderate Planned Sedation Medications: VERSED (midazolam) and fentanyl ASA Classification: Class II: Individual with one system well controlled disease. Disease does not affect daily living. Mallampati Airway Assessment: Class II Faucial pillars, soft palate visible Patient or family history of adverse reactions involving sedation/anesthesia: No family history of adverse reaction PRE-PROCEDURE VERIFICATION: Site of Procedure: right Site Marked pre-procedure: Yes Pre-Procedure Pain Ratin/10 Advanced Directives (Living will, health care power of crime data specialist): none Patient Recent Code Status: Full Code Code Status For This Procedure: Full Code Becky Zayas MD [facility]01[facility] Consult note* Genesis Ayala LSW - 11/15/2024 1:20 PM ESTAssociated Order(s): IP SOCIAL WORK SERVICE REQUEST DULCE MARIA consult received for: Substance abuse resources/interventions SW attempted to meet with pt. Unable to meet as pt was out for CT scan. Will follow up later today. Addendum: 3:20pm SW attempted to meet with pt again. Pt was going off the floor for a procedure. Genesis LIMON, INSURANCE DEFENSE ATTORNEY Social Work [phone] [id number] Progress note* Progress Notes - NoteWriter - Jeff Renteria RN - 11/15/2024 12:25 PM EST Pt down to CT. S/P general surgery attending assessed pt. [id number] Plan of care note* Care Plan Note - Jeff Renteria RN - 11/15/2024 11:51 AM EST Problem: Routine Care: Goal: Patient care will be managed and maintained throughout hospital stay per unit specific routine care procedure Outcome: Progressing Problem: Hypertensive Disorder in : Goal: Risk for seizure in will be minimized Outcome: Progressing Problem: Fluid and Electrolyte Imbalance: Goal: Adequate fluid and electrolyte balance will be achieved and maintained Outcome: Progressing Problem: Infection: Goal: Will be free of signs and symptoms of infection Outcome: Progressing Problem: Coping: Goal: Ability to identify and develop effective coping behavior will improve and/or be maintained Outcome: Progressing Problem: Acute Pain: Goal: Ability to identify pain intensity on a pain scale and rate it consistently will be achieved and maintained Outcome: Progressing Goal: Acceptable level of pain which allows the patient to achieve functional outcome goals Outcome: Progressing Goal: Ability to identify factors that manage or decrease pain will be achieved Outcome: Progressing Problem: Safety: Goal: Patient will remain free of falls during hospital stay Outcome: Progressing Goal: Free from injury during hospitalization Outcome: Progressing Problem: Discharge Planning: Goal: Discharge needs of the adult patient will be met Outcome: Progressing [id number] Consult note* Tania Nowak, RD - 11/15/2024 10:58 AM ESTAssociated Order(s): NUTRITION NEW CONSULT Images from the original note were not included. Date: 11/15/24 LOS: 0 days Room: [place] [address] Brief Nutrition Education Note Reason for RD visit: Consult - Diabetic diet Admitting Diagnosis: No admission diagnoses are documented for this encounter. Basic Metabolic Panel 11/15/2024 12:52 AM Na 139 K 3.9 Cl 101 CO2 27 Gap 15 Glu 211 BUN 9 Cr 0.67 Ca 7.9 CBC (last 3 years, up to 8 values) 11/15/2024 11/15/2024 11:30 AM 12:52 AM WBC 14.5 15.6 RBC 3.56 3.85 Hgb 9.6 10.2 Hct 28.9 30.7 MCV 81 80 RDW 17.2 16.9 Plt 457 360 LFT's (last 3 years, up to 8 values) 11/15/2024 12:52 AM T Prot 5.3 Albumin 2.4 D Bili 0.07 T Bili 0.3 Alk Phos 133 ALT 11 AST 15 Lipids (last 3 years, up to 8 values) No lab values to display. Lab Results Component Value Date HBA1C 10.0 (H) 11/15/2024 HBA1C 8.1 (H) 10/14/2021 HBA1C 8.1 (H) 10/07/2021 Fingerstick Glucose (last 72 hours) Glucose 11/15/24 0828 128 11/15/24 0428 198 11/15/24 0314 203 Comment: Follow Protocol 11/15/24 0039 225 Comment: Follow Protocol Notified BENTLEY POLLOCK MD Allergies Allergen Reactions Verapamil Anaphylactic Shock Botulinum Toxin Type A Itching Onabotulinumtoxina Itching, Rash and Swelling Face tingling and skin itching. Bandage Tape Rash Latex Other and Rash Current Facility-Administered Medications Medication Dose Route Frequency Last Rate Last Admin insulin glargine (LANTUS SOLOSTAR/BASAGLAR KWIKPEN) 100 UNIT/ML PEN injection 14 Units SubcutaneousAt Bedtime sodium chloride 0.9 % iv infusion 1,000 mL Intravenous Continuous 125 mL/hr at 11/15/24 1130 1,000 mL at 11/15/24 1130 metoclopramide (REGLAN) 5 MG/ML injection 10 mg Intravenous Push Q6H PRN 10 mg at 11/15/24 1222 ibuprofen (MOTRIN) tablet 600 mg Oral Every 6 hours 600 mg at 11/15/24 0330 measles, mumps and rubella (MMR) chargeable vaccine 0.5 mL Subcutaneous Vaccinate Once acetaminophen (TYLENOL) tablet 1,000 mg Oral Every 6 hours 1,000 mg at 11/15/24 0908 oxyCODONE immediate release tablet 5 mg Oral Q4H PRN Or oxyCODONE immediate release tablet 10 mg Oral Q4H PRN NIFEdipine (ADALAT CC) 24 hour tablet 30 mg Oral BID 30 mg at 11/15/24 0212 piperacillin-tazobactam in D5W (ZOSYN) 3,375 mg in dextrose 50 mL ivpb 3.375 g Intravenous Q6H Antibiotic 100 mL/hr at 11/15/24 0800 3,375 mg at 11/15/24 0800 ondansetron (ZOFRAN) 4 MG/2ML injection 4 mg Intravenous Push Every 6 hours 4 mg at 11/15/24 0108 labetalol (NORMODYNE) tablet 200 mg Oral 2x Daily 200 mg at 11/15/24 0113 labetalol (TRANDATE) 5 mg/mL injection 80 mg Intravenous Push Once PRN And hydrALAZINE (APRESOLINE) 20 mg/mL injection 10 mg Intravenous Push Once PRN Diet/ONS Order(s): NPO Anthropometrics: Ht Data Unavailable Wt no weight BMI Data Unavailable Weight hx: none Brief Clinical & Education Summary: 29 yo F w/ PMH s/f T2DM, pre-eclampsia, ADHD (+40mg/d adderall) who underwent emergent at34 weeks on 11/06/24 for placental abruption (baby still in NICU at ), was worked up at OSH ([facility]) for RUQ abd pain and found to have RUQ fluid collection concerning for intra-abdominal abscess, then was transfeed to for possible IR drainafe. Nutrition was consulted for DM diet education. HbA1c 10%. Pt currently NPO. Reportedly not breast feeding. Baby remains in NICU at OSH. Attempted to see her this afternoon, however she was being taken to IR for ?drainage. Agree should would likely benefit from diet education, but will have to treturn at later time - not here over weekend, so would be Monday if pt is still here. Aware she isnt from the area so OP MH referral is probably not helpful Nutrition Problem(s): Uncontrolled T2DM (HbA1c 10%); ~1 week / (increased nutrient needs r/t healing) Nutrition Interventions/Recommendations: 1. Resume PO as medically able: 60g CHO/meal diet (once advanced past CLD/FLD) 2. mIVF while NPO without nutrition source 3. Would benefit from T2DM diet education -- Pt off floor during attempted visit today. Will attempt to return at later time when she is back, however will likely need to be on Monday (not here over wknd) if she is still here 4. MD - if appropriate based on where pt leaves, can place referral for outpatient education - Diabetes Self Management Program: [id number] in discharge orders. Patient will receive a call from clinical educator regarding scheduling Tania Nowak RD, LD, [facility] Personal Pager: [phone] On-Call Nutrition Pager: [phone] Time spent on patient care: 15 minutes Dietitian vs DietaryTech: Dietitian and Cigarette Making Machine Catcher [id number] NoteDate: 11/15/24 LOS: 0 days Room: [place] [address] Brief Nutrition Education Note Reason for RD visit: Consult - Diabetic diet Admitting Diagnosis: No admission diagnoses are documented for this encounter. Basic Metabolic Panel 11/15/2024 12:52 AM Na 139 K 3.9 Cl 101 CO2 27 Gap 15 Glu 211 BUN 9 Cr 0.67 Ca 7.9 CBC (last 3 years, up to 8 values) 11/15/2024 11/15/2024 11:30 AM 12:52 AM WBC 14.5 15.6 RBC 3.56 3.85 Hgb 9.6 10.2 Hct 28.9 30.7 MCV 81 80 RDW 17.2 16.9 Plt 457 360 LFT's (last 3 years, up to 8 values) 11/15/2024 12:52 AM T Prot 5.3 Albumin 2.4 D Bili 0.07 T Bili 0.3 Alk Phos 133 ALT 11 AST 15 Lipids (last 3 years, up to 8 values) No lab values to display. Lab Results Component Value Date HBA1C 10.0 (H) 11/15/2024 HBA1C 8.1 (H) 10/14/2021 HBA1C 8.1 (H) 10/07/2021 Fingerstick Glucose (last 72 hours) Glucose 11/15/24 0828 128 11/15/24 0428 198 11/15/24 0314 203 Comment: Follow Protocol 11/15/24 0039 225 Comment: Follow Protocol Notified BENTLEY POLLOCK MD Allergies Allergen Reactions Verapamil Anaphylactic Shock Botulinum Toxin Type A Itching Onabotulinumtoxina Itching, Rash and Swelling Face tingling and skin itching. Bandage Tape Rash Latex Other and Rash Current Facility-Administered Medications Medication Dose Route Frequency Last Rate Last Admin insulin glargine (LANTUS SOLOSTAR/BASAGLAR KWIKPEN) 100 UNIT/ML PEN injection 14 Units Subcutaneous At Bedtime sodium chloride 0.9 % iv infusion 1,000 mL Intravenous Continuous 125 mL/hr at 11/15/24 1130 1,000 mL at 11/15/24 1130 metoclopramide (REGLAN) 5 MG/ML injection 10 mg Intravenous Push Q6H PRN 10 mg at 11/15/24 1222 ibuprofen (MOTRIN) tablet 600 mg Oral Every 6 hours 600 mg at 11/15/24 0330 measles, mumps and rubella (MMR) chargeable vaccine 0.5 mL Subcutaneous Vaccinate Once acetaminophen (TYLENOL) tablet 1,000 mg Oral Every 6 hours 1,000 mg at 11/15/24 0908 oxyCODONE immediate release tablet 5 mg Oral Q4H PRN Or oxyCODONE immediate release tablet 10 mg Oral Q4H PRN NIFEdipine (ADALAT CC) 24 hour tablet 30 mg Oral BID 30 mg at 11/15/24 0212 piperacillin-tazobactam in D5W (ZOSYN) 3,375 mg in dextrose 50 mL ivpb 3.375 g Intravenous Q6H Antibiotic 100 mL/hr at 11/15/24 0800 3,375 mg at 11/15/24 0800 ondansetron (ZOFRAN) 4 MG/2ML injection 4 mg Intravenous Push Every 6 hours 4 mg at 11/15/24 0108 labetalol (NORMODYNE) tablet 200 mg Oral 2x Daily 200 mg at 11/15/24 0113 labetalol (TRANDATE) 5 mg/mL injection 80 mg Intravenous Push Once PRN And hydrALAZINE (APRESOLINE) 20 mg/mL injection 10 mg Intravenous Push Once PRN Diet/ONS Order(s): NPO Anthropometrics: Ht Data Unavailable Wt no weight BMI Data Unavailable Weight hx: none Brief Clinical AND Education Summary: 29 yo F w/ PMH s/f T2DM, pre-eclampsia, ADHD (+40mg/d adderall) who underwent emergent at 34 weeks on 11/06/24 for placental abruption (baby still in NICU at ), was worked up at OSH ([facility]) for RUQ abd pain and found to have RUQ fluid collection concerning for intra-abdominal abscess, then was transfeed to MH for possible IR drainafe. Nutrition was consulted for DM diet education. HbA1c 10%. Pt currently NPO. Reportedly not breast feeding. Baby remains in NICU at OSH. Attempted to see her this afternoon, however she was being taken to IR for ?drainage. Agree should would likely benefit from diet education, but will have to treturn at later time - not here over weekend, so would be Monday if pt is still here. Aware she isnt from the area so OP MH referral is probably not helpful Nutrition Problem(s): Uncontrolled T2DM (HbA1c 10%); ~1 week / (increased nutrient needs r/t healing) Nutrition Interventions/Recommendations: 1. Resume PO as medically able: 60g CHO/meal diet (once advanced past CLD/FLD) 2. mIVF while NPO without nutrition source 3. Would benefit from T2DM diet education -- Pt off floor during attempted visit today. Will attempt to return at later time when she is back, however will likely need to be on Monday (not here over wknd) if she is still here 4. MD - if appropriate based on where pt leaves, can place referral for outpatient education - Diabetes Self Management Program: [id number] in discharge orders. Patient will receive a call from clinical educator regarding scheduling Tania Nowak RD, LD, [facility] Personal Pager: [phone] On-Call Nutrition Pager: [phone] Time spent on patient care: 15 minutes Dietitian vs DietaryTech: Diet[facility] and [facility] 11-15-2024 Consult note* Cesar Bueno DO - 11/15/2024 8:53 AM ESTAssociated Order(s): IP PSYCHIATRIC ADULT CONSULT Images from the original note were not included. PSYCHIATRY CONSULT LIAISON NOTE PROVIDER REQUESTING CONSULT: Adelfo Nice MD [id number] Reason for Consult: hx Bipolar, reported medications and chart meds discrepancy (medication reconciliation) IDENTIFICATION: BERNADETTE Faust is a 29 year old White female HISTORY OF PRESENT ILLNESS Hospital Course: A 29-year-old at postoperative day 9 following an emergent C- section at 34 weeks for placental abruption and preeclampsia, presents with acutely worsening right upper quadrant pain after transfer from [facility]. Chart reviewed, and from a medical perspective, the patient is being treated for a suspected intra-abdominal abscess with plans for IR drainage, ongoing IV zosyn, and imaging follow-up. She is normotensive on antihypertensives after severe preeclampsia and is day 9 following an emergent complicated by significant blood loss and limited care. A prior reactive HIV screen was negative on repeat testing, and toxicology was positive for for amphetamine, benzodiazepines,ecstasy, opioids. Opioids potentially due to anesthesia during C/S. Psychiatric Interview: The patient was interviewed at the bedside and reported being in pain but stated she is psychiatrically stable. She denies any new or worsening symptoms of depression or anxiety. The patient follows with a psychiatrist in [place], [place], who prescribes lamotrigine 200 mg daily for bipolar disorder, as well as amphetamine- dextroamphetamine and alprazolam. She has not taken lamotrigine for over five days and is agreeable to restarting at 25 mg with titration by her outpatient provider. She refilled her last prescriptions for amphetamine-dextroamphetamine and alprazolam a few months ago but is unsure why they do not appear in her [facility] report. She has not taken either medication in several days and denies any symptoms of benzodiazepine withdrawal. The patient states she splits her time between [place] and [place], does not currently have a psychiatric provider in [place], but has been attempting to establish care there. Her prescriptions are written and filled in [place]. She denies suicidal ideation, homicidal ideation, or auditory/visual hallucinations. She reports nodifficulties with sleep, appetite, or medication side effects. PRN's Received: - none for agitation or anxiety PER CHART REVIEW [facility] 11/06/24 - 11/09/24 The patient was hospitalized at [facility] from November 06 to November 09, 2024, following an emergent placental abruption at 34 weeks gestation. She underwent an urgent performed by Dr. Elaine Jones due to distress and hemorrhaging. Postoperatively, she developed severe preeclampsia, anemia secondary to blood loss, and uncontrolled diabetes (HbA1c 9%). Initiallabs also revealed renal insufficiency, electrolyte imbalances, and a positive HIV screen. The patient was briefly admitted to the ICU, received a unit of blood, and was stabilized on antihypertensives (nifedipine, labetalol) and diabetes management (metformin XR). She was discharged on postoperative day 3 with instructions to follow up with a PCP. The , born prematurely, remains in the NICU. OARRS/NarxCare Scores: 11/09/2024 11/09/2024 1 Oxycodone Hcl (Ir) 5 Mg Tablet 28.00 7 Dec [id number] Banda ([id number]) 0 PSYCHIATRIC REVIEW OF SYSTEMS: As per HPI Suicide Assessment Tool C-SSRS Appling-Suicide Severity Rating Scale Able to complete Appling-Suicide Severity Rating Scale with Patient?: Yes 1) Wish to be : No 2) Current suicidal thoughts: No 6) C-SSRS Suicidal Behavior: No Risk of Suicide: Negative Screen Did patient score moderate or high risk on the C-SSRS?: No SAFE-T PSYCHIATRIC HISTORY: Psychiatric diagnoses: bipolar disorder (self reported), ADHD, anxiety Outpatient psychiatrist/counselor: Leonila Junior, [place] (self reported) Inpatient psychiatric admissions (when/why?): none Previous suicide attempts: none Medications tried in the past: unknown Current outpatient medications: per patient, Lamictal 200 mg daily, alprazolam prn for anxiety, andAdderall for ADHD. Hasn't taken her medication in a week. 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 [employer] Smoking Status: Never smoker alcohol intake: current alcohol intake frequency: holidays/special occasions only substance use type: does not use caffeine: Yes what type of physical activity do you participate in: walking frequency: 3-4 times per week seatbelt use: always do you feel safe at home: Yes 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 Elaine Jones MD) Asthma Migraines multiple sclerosis and diabetes reported hx of TIA vs complex migraine vs MS Surgical History H/O knee surgery H/O dilation and curettage History of appendectomy History of lumpectomy History of tonsillectomy and adenoidectomy ALLERGIES: Allergies Allergen Reactions Verapamil Anaphylactic Shock Botulinum Toxin Type A Itching Onabotulinumtoxina Itching, Rash and Swelling Face tingling and skin itching. Bandage Tape Rash Latex Other and Rash CURRENT INPATIENT MEDICATIONS: Scheduled iohexol 100 mL Once at Radiology exam iohexol 50 mL Once at Radiology exam iohexol 50 mL Once at Radiology exam insulin glargine 14 Units At Bedtime ibuprofen 600 mg Every 6 hours measles, mumps and rubella 0.5 mL Vaccinate Once acetaminophen 1,000 mg Every 6 hours NIFEdipine 30 mg BID piperacillin/tazobactam 3.375 g Q6H Antibiotic ondansetron 4 mg Every 6 hours labetalol 200 mg 2x Daily IV sodium chloride 1,000 mL (11/15/24 1130) PRN metoclopramide 10 mg Q6H PRN oxyCODONE 5 mg Q4H PRN Or oxyCODONE 10 mg Q4H PRN labetalol 80 mg Once PRN And hydrALAZINE 10 mg Once PRN VITAL SIGNS: Vital sign ranges over the past 24 hours (retrieved 11/15/2024 at 1:19 PM): Tmax (24 hours): 98.2 F (36.8 C) Pulse Av.9 Min: 75 Max: 105 Systolic (24hrs), Av , Min:106 , Max:170 Diastolic (24hrs), Av, Min:66, Max:112 No data recorded Resp Av.1 Min: 15 Max: 18 SpO2 Av.6 % Min: 94 % Max: 98 % PHYSICAL EXAM: Deferred MENTAL STATUS EXAM: 01. APPEARANCE: neat well groomed dressed in hospital gown 02.BEHAVIOR: Calm Cooperative poor eye contact 03. ORIENTATION: oriented to time, place and person. 04. SPEECH: clear, normal rate and flow, coherent, and goal-directed 05. THOUGHT PROCESS: logical 06. ASSOCIATION: tight 07. THOUGHT CONTENT: no abnormal processes noted, no derailment or disorganized thoughts of psychotic nature, no spontaneous speech of delusional nature, no paranoia evident, denies auditory hallucinations, denies visual hallucinations, denies suicidal thoughts or intention, denies homicidal thoughts or intention 08. JUDGMENT: fair 09. INSIGHT: fair 10. RECENT AND REMOTE MEMORY: appear adequate to observation 11. ATTENTION SPAN AND CONCENTRATION: sustained 12. LANGUAGE: Appropriate, Normal verbal ability 13. FUND OF KNOWLEDGE: Okay 14. MOOD: euthymic 15. AFFECT: congruent 16: COGNITION: grossly intact on observation 17: MSK/NEURO: no tremor, tics, rigidity, psychomotor slowing/agitation or other abnormal motor movements on observation, gait not assessed LABS: 139 101 9 / \ 211 3.9 27 0.67 BMP: 11/15/2024: 12:52 AM 14.5 \ 9.6 / 457 / 28.9 \ CBC: 11/15/2024: 11:30 AM Albumin Date Value Ref Range Status 11/15/2024 2.4 (L) 3.5 - 5.7 g/dL Final Protein, Total Date Value Ref Range Status 11/15/2024 5.3 (L) 6.0 - 8.3 g/dL Final Alkaline Phosphatase Date Value Ref Range Status 11/15/2024 133 (H) 34 - 104 IU/L Final Results for orders placed during the hospital encounter of 11/14/24 CT ABDOMEN/PELVIS W/ CONTRAST Impression : 1. There is a slightly lobulated complex gas and fluid collection anterolateral to the cecum and right colon just below liver that is worrisome for an abscess and does not communicate with the adjacent contrast enhanced large bowel. This could represent a periappendiceal abscess as the appendix is not visualized. 2. There are trace amounts of free fluid within both pericolic gutters and subhepatic region and a small amount of free fluid within the pelvis and cul-de-sac surrounding the uterus. 3. The endometrial canal is thickened and there is heterogeneous density within the endometrial canal. Retained products of conception cannot be excluded and pelvic sonography is recommended. 4. There is mild diverticulosis of the redundant sigmoid colon with no evidence of diverticulitis. 5. There is mild fatty change of the liver. 6. There is no evidence of adenopathy. 7. There is distention of the gallbladder, which is a nonspecific finding and gallbladder sonography is recommended. 8. The remaining solid organs and remaining bowel are normal. 9. There are additional findings as described above. EKG: No results found for: QTC ASSESSMENT: Bernadette Faust is a 29-year-old White female, POD#8 s/p emergency pLTCS for abruption with NRFS,preeclampsia, and PPH, with a history of anxiety, ADHD, and bipolar disorder (self-reported). She is currently admitted for management of an intra-abdominal abscess and blood pressure. Psych was consulted for a discrepancy between psychiatric medications reported by the patient and those seen in the OARRS report. The patient has no past psychiatric admissions and no prior suicide attempts. Utox from OSH on 11/06/24 was positive for amphetamines, MDMA (ecstasy), benzodiazepines, and opiates. The patient was calm and cooperative during the assessment. Thought processes were logical, organized, and goal-directed. She appeared future-oriented, with sustained attention and a full, reactive affect congruent with her reported mood. There was no evidence of acute manic, hypomanic, severe depressive, psychotic, or other psychiatric decompensation. She denied ideation, intent, or plans to harm herself or others, and there are no acute safety concerns. The patient reports being on lamotrigine 200 mg daily for her bipolar diagnosis but has not taken it for more than five days. She will resume lamotrigine at 25 mg daily for two weeks, followed by 50 mg daily for two weeks, with continued titration managed by her outpatient provider. She follows with Dr. Morales in [place], [place], though it is unclear why her OARRS record does not reflect refills for amphetamine-dextroamphetamine and alprazolam, which she states were last filled a few months ago. It is recommended to hold amphetamine-dextroamphetamine and alprazolam inpatient, as she has not been taking them for approximately one week. There is a low suspicion of benzodiazepine withdrawal at this time, and the patient denies any related symptoms. 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 The patient has been off lamotrigine for more than five days. Per FDA package insert guidelines, restarting at a lower dose is required after such a lapse to minimize the risk of serious adverse effects, particularly Fong-Mesfin syndrome and toxic epidermal necrolysis, which are associated with rapid dose escalation or re-initiation at a previous higher dose. Hydroxyzine 25 mg PO TID PRN for anxiety. Safety: No acute concerns for safety. A psych sitter is not needed at this time. Sitter use is at the discretion of the primary team. Patient Education: The assessment and plan were discussed with the patient. Medication benefits and potential side effects were explained. The patient demonstrated understanding and agreement with the plan. A therapeutic alliance was established through eye contact and active listening. Follow-Up: The patient will follow up with Dr. Morales in [place], [place], and will schedule the appointment independently. Recommendations were communicated to Dr. Muhammad and Dr. Rubin via secure chat. We will sign off, please page with any new concerns. The patient was seen and discussed with attending psychiatrist. Iveth Hall MD Fish Technologist, PGY-2 If patient is admitted to the hospital and psychiatric consultation is necessary, please place order in [facility] for IP Psychiatry Adult Consult and page: 8:00 AM - 5:00 PM: [phone] 5:00 PM - 8:00 AM, weekends or holidays: [phone] Teaching Physician Note During my evaluation of Ms. Faust with the Consult-Liaison team, I gathered vizcaino information aboutthe patient s medical history, consulted with the resident (Iveth Hall MD), reviewed and amended his documentation as needed, concurred with the assessment and plan, and communicated the plan with the primary medical team via secure chat. I remain available for any multidisciplinary discussions. Cesar Bueno DO Attending Psychiatrist [employer] Work Phone: [phone] Consult note* Juany Muhammad MD - 11/15/2024 6:52 AM ESTAssociated Order(s): IP OB HIGH RISK CONSULT Images from the original note were not included. WATERPROOFER HELPER CONSULT NOTE 11/15/24 6:53 AM PGY-4 S: Patient reporting continued RUQ pain. Denies HERNADEZ, vision changes, chest pain, shortness of breath. Reports bleeding appropriate. For this presented with bleeding, limited to no care. Had been diagnosed with abruption and severe preeclampsia and taken to OR emergently. Received 24 hrs Mg. Presentedto ED yesterday for worsening RUQ pain. Had been having difficulty eating/drinking due to pain. O: BP 106/74 (BP Location: left arm) Pulse 75 Temp 98.2 F (36.8 C) (Oral) Resp 18 SpO2 95% Unknown Gen: NAD Cardio: WWP Resp: breathing comfortably on RA Abd: Soft, tender at RUQ Incision: pfannenstiel incision c/d/i Ext: + edema of bilateral lower extremities, SCDs in place Intake/Output Summary (Last 24 hours) at 11/15/2024 0653 Last data filed at 11/15/2024 0600 Gross per 24 hour Intake 330 ml Output 350 ml Net -20 ml Fingerstick Glucose Glucose 11/15/24 0428 198 11/15/24 0314 203 Comment: Follow Protocol 11/15/24 0039 225 Comment: Follow Protocol Notified RN PHILL MALIK A/P: BERNADETTE Faust is a 29 year old at POD#9 s/p emergent pLTCS at 34wga for abruption and pre-eclampsia with SF here for RUQ pain and RUQ fluid collection concerning for intra-abdominal abscess. #) suspected intra-abdominal abscess - CT AP at OSH with 4.9 x 6.9 x 5.6 cm collection at RUQ/ hemicolon. - images in powershare, plan for formal read today - afebrile, non-tachycardic, WBC 15.6, Hgb 10.2 - s/p EGS consult, recommend IR drainage, no acute surgical intervention indicated - cont IV zosyn - BCx ordered, patient declined this AM - RUQ ultrasound ordered - plan to discuss with IR regarding drainage #) Preeclampsia with severe features -- s/p 24hrs Mg at OSH. -- s/p IV labet 20mg @ 2317 on 11/14 -- s/p IV labet 40mg @ 0100 on 11/15 -- Bps currently normotensive -- current regimen: adalat 30mg BID, labetalol 200mg BID -- no neurological complaints #) T2DM -- HgbA1c on admit 10 -- current regimen metformin 1000 mg daily -- had not been on insulin previously -- blood sugars elevated, plan to start weight based insulin regimen #) Hx Bipolar disorder -- patient reports taking adderall 20mg BID, and aprazolam PRN -- OARRS report with no evidence of the above prescriptions in the last year -- plan for psych consult #) limited care, +Utox -- SW consulted -- 11/06/2024 tox positive for amphetamine, benzodiazepines, ecstasy, opioids. Opioids potentially due to anesthesia during C/S. #) reported hx of TIA vs complex migraine vs MS -- on chart review and neurology note from 2020, no evidence of CVA on imaging and neurology prescribed ajovy for migraines. #) -- s/p pLTCS, EBL >1000, received pRBCs per patient. -- Rhpos/Requiv -- formula feeding, baby in NICU -- Contraception: none -- 11/06/24 preliminary HIV Ab screen reactive, VL <20 at OSH. 11/15/24 HIV antibody on admit negative. #) DVT Prophylaxis -- Lovenox 40mg every day- holding in anticipation of possible IR procedure -- Encourage SCDs and ambulation Juany Muhammad MD COMPUTER OPERATIONS TECHNICIAN PGY-4 Cosigned by Marco Stovall MD at 11/15/2024 1:49 PM EST Associated attestation - Marco Stovall MD - 11/15/2024 1:49 PM EST Teaching Physician Note: I saw and evaluated the patient. I personally obtained the vizcaino and critical portions of the historyand physical exam. I reviewed the resident's documentation and discussed the patient with the resident. I agree with the resident's medical decision making as documented in the resident's note. 29y , POD#9 s/p emergent 1LTCS at 34w for placental abruption, preeclampsia with severe features, admitted for RUQ pain and found to have RUQ fluid collection. Scant care. Transfer initially accepted by surgery, transferred to OB as surgery did not feel surgical intervention warranted. On examination, very tender in RUQ, guarding. On zosyn prior to transfer, will not obtain blood cultures. IR asked to evaluate for potential drainage - IR with concern for bowel perforation. Surgery updated, will repeat CT. T2DM with HbA1c 10 - body habitus not consistent typical T2DM presentation, will obtain c-peptide (currently hypoglycemia) and T1DM antibodies. Start weight- based insulin Preeclampsia: normotensive on nifedipine 30mg BID, labetalol 200mg BID. Aside from RUQ pain, no symptoms but imaging is not consistent with subcapsular hepatic hematoma. Migraines: none currently, no medications currently. Ariane Stovall MD Maternal Medicine, Complex Family Planning Pager: [phone] [id number] Plan of care note* Care Plan Note - Marguerite Jones RN - 11/15/2024 4:16 AM EST Problem: Routine Care: Goal: Patient care will be managed and maintained throughout hospital stay per unit specific routine care procedure Outcome: Progressing Unit routine initiated and maintained. Pt oriented to room, call gomez, and nurse Problem: Hypertensive Disorder in : Goal: Risk for seizure in will be minimized Outcome: Progressing Blood pressures normotensive at this time. Will report any severe range blood pressures to MDs and follow protocol. Problem: Fluid and Electrolyte Imbalance: Goal: Adequate fluid and electrolyte balance will be achieved and maintained Outcome: Progressing IVF initiated and maintained. Will keep fluids titrated to 75ml/hr Problem: Infection: Goal: Will be free of signs and symptoms of infection Outcome: Progressing Hand hygiene maintained; pt remains afebrile. Will continue to assess vital signs per protocol Problem: Coping: Goal: Ability to identify and develop effective coping behavior will improve and/or be maintained Outcome: Progressing Pt utilizing effective coping mechanisms and showing appropriate coping behaviors. Pt encouraged toverbalize feelings and ask for assistance as needed. Will continue to monitor. Problem: Knowledge Deficit: Goal: Ability to make informed decisions regarding treatment will improve Outcome: Progressing Pt asking appropriate questions at this time. Providing education as needed Problem: Acute Pain: Goal: Ability to identify pain intensity on a pain scale and rate it consistently will be achieved and maintained Outcome: Progressing Goal: Acceptable level of pain which allows the patient to achieve functional outcome goals Outcome: Progressing Goal: Ability to identify factors that manage or decrease pain will be achieved Outcome: Progressing Problem: Safety: Goal: Patient will remain free of falls during hospital stay Outcome: Progressing Goal: Free from injury during hospitalization Outcome: Progressing Side rails up times two, bed locked in lowest position, and call gomez within reach,. Problem: Discharge Planning: Goal: Discharge needs of the adult patient will be met Outcome: Progressing Plan for monitoring in High risk. [id number] Consult note* Dana Hall DO - 11/15/2024 2:12 AM EST Associated Order(s): IP EMERGENCY GENERAL SURGERY CONSULT Images from the original note were not included. [facility] Department of Surgery EMERGENCY GENERAL SURGERY CONSULT NOTE BERNADETTE Faust [id number] Reason for Consultation: Abdominal abscess HPI BERNADETTE Faust is a 29 year old year old female with PMH significant for left breast cancer s/p lumpectomy, MS, prior stroke, recent (11/06/2024) for placental abruption with >1L blood loss, who is presenting as transfer from OSH with right sided intra-abdominal abscess for which EGS was consulted. Reports right-sided abdominal pain since delivery eight days ago, worse over the last 24 hours. Denies fevers, chills, nausea, vomiting. Appetite has been decreased secondary to the pain. Severely constipated post delivery with first bowel movement yesterday (11/14) since delivery on 11/07. PMH Past Medical History: Diagnosis Date Malignant neoplasm of left female breast (HCC) 2017 s/p lumpectomy, s/p 1y tamoxifen Multiple sclerosis (HCC) 2017 ajovy q3mo Stroke (HCC) 2017 dx with MS PSH Past Surgical History: Procedure Laterality Date BREAST LUMPECTOMY Left 2017 DILATION & CURETTAGE, DX &/OR THERAPEUTIC (NONOBSTETRICAL) DILATION & CURETTAGE, DX &/OR THERAPEUTIC (NONOBSTETRICAL) TONSILLECTOMY & ADENOIDECTOMY; AGE 12+ Medications: No current outpatient medications Allergies: Patient has no allergy information on record. Family History: family history is not on file. ROS (Bold is Positive) Const: Fevers - Chills - WeightLoss - Sweating - Fatigue HEENT: Headaches - VisionChanges Cardiac: ChestPain - Palpitations Pulm: SOB - Cough (Productive) - Orthopnea GI: Nausea - Vomiting - AbdPain - Diarrhea - Constipation : Dysuria - Frequency - ColorChanges MSK: Pain - Swelling - Weakness Skin: Rash - Itching - Lumps/Bumps - Wounds Neuro: Numbness - Tingling - Dizziness - Falls Heme: Bleeding PHYSICAL EXAM BP 153/97 Pulse 87 Temp 98 F (36.7 C) (Oral) Resp 18 SpO2 96% Unknown General: Uncomfortable appearing Cardiac: Capillary refill <2 seconds Pulmonary: Comfortable on RA Abdomen: Post-, soft but diffuse tenderness to palpation with palpable mass in right abdomen with overlying redness of the skin. Pfannenstiel incision healing well without erythema or drainage Extremities: Moving all four appropriately Skin: Warm, no lesions Neuro: AOx3 LABS 15.6 \ 10.2 / 360 / 30.7 \ CBC: 11/15/2024: 12:52 AM 139 101 9 / \ 211 3.9 27 0.67 BMP: 11/15/2024: 12:52 AM STUDIES ASSESSMENT/PLAN BERNADETTE Faust is a 29 year old year old female with PMH as above POD8 s/p ceserean for placental abruption with >1 L fluid loss, here with large abscess in the right paracolic gutter. Reviewedimaging with radiology, no concerns for subcapsular hematoma in setting of continued preeclampsia, fluid collection likely abscess less likely hematoma. Leukocytosis to 15.6, mildly tachycardic to low 100s on examination. Abdomen is post , soft, diffuse tenderness with palpable mass in the right abdomen, correlates to large pericolonic abscess on imaging, with overlying skin erythema. No acute surgical intervention is planned Recommend consultation to IR for percutaneous drainage/drain placement IV Zosyn Admission to obstetrics service in the setting of concerns for preeclampsia EGS will continue to follow Dispo: Per obstetrics Discussed with Dr. Ritter Dana Hall, General Surgery Department Green Surgery Pager [phone] Purple (MIS, Gen, Peds) Surgery Pager [phone] Blue Surgery (Surgical Oncology, Breast) Pager [phone] Vascular Surgery Pager - [phone] Acute Care Surgery Pager [phone] ACS Consults [phone] ACS Floor Patients Cosigned by Ronda Wing MD at 11/15/2024 2:56 AM EST Associated attestation - Ronda Wing MD - 11/15/2024 2:56 AM EST ACS Attending Attestation Teaching Physician Note: I saw and evaluated the patient. I personally obtained the vizcaino and critical portions of the historyand physical exam. I reviewed the resident's documentation and discussed the patient with the resident. I agree with the resident's medical decision making as documented in the resident's note. HPI: Ms Faust is a 29 yo F with a hx of Type II DM and pre-eclampsia who underwent an emergent at 34 weeks for placental abruption (11/06- [facility]- baby still in NICU in [facility]). She was worked up at an OSH for RUQ abdominal pain and found to have a RUQ fluid collection con cering for an intra-abdominal abscess. She was transferred to [facility] for possible IR drainage ofthis collection. Physical Exam BP 153/97 Pulse 87 Temp 98 F (36.7 C) (Oral) Resp 18 SpO2 96% Unknown Awake, alert in no acute distress Non labored breathing on room air Regular rate and rhythm Abdomen- soft with moderate tenderness to palpation in the right upper quadrant, well healing lowe transverse incision from No peripheral edema Significant labs/Imaging Wbc- 15.6 CT A/P- right sided intra-abdominal abscess with gas- likely infected hematomas Diagnosis List Intra-abdominal abscess Pre-eclampsia Type II DM Acute abdominal pain Leukocytosis Hyperglycemia Acute blood loss anemia Operative procedures by this team None Assessment and Plan: 29 yo F s/p complicated by placental abruption and 1 L EBL now with right intra-abdominalabscess Collection likely infected hematoma Recommend IR consult for drain placement Start IV antibiotics Send culture from drain No acute general surgery intervention required at this time EGS will follow pending drain placement Management of HTN per obstetrics team Ronda Wing MD ACS Attending Medical Decision Making: Medium Complexity of Problem -Medium- - 1 acute illness with systemic symptoms (intra-abdominal abscess) 2. Data -Medium -independent interpretation of tests during this admission (reviewed CT scan) 3. Risk -High -decision regarding hospitalization [employer] Work Phone: [phone]) [phone] History and physical note* Adelfo Nice MD - 11/15/2024 12:39 AM EST Images from the original note were not included. LABOR AND DELIVERY HISTORY AND PHYSICAL NOTE 11/15/2024 4:44 AM Chief complaint: Chief Complaint Patient presents with Abdominal pain Post c/s 11/06/23 - right upper side per pt an abdominal cyst BERNADETTE Faust is a 29 year old at POD#9 s/p emergent pLTCS at 34w for abruption and pre-eclampsia with SF who presents to Labor and Delivery for acutely worsening RUQ pain transferred from [facility]. RUQ pain has been present since patient had sudden abruption of >1L blood loss at home. States pain had never improved during her post-operative course but was discharged without her pain being addressed properly. It worsened to the point of acute pain with tenderness to palpation. She denies nausea and vomiting but has some difficulty eating and breathing due to pressure from above on her RUQ. She denies HERNADEZ, visual changes. Lochia is minimal. Meeting all post-operative milestones otherwise. Her has been complicated by: Suspected intra-abdominal abscess Received IV zosyn at OSH WBC on admission 15.6 VS: Afebrile at OSH, in triage, Non tachycardia, hypertensive (see PreE) Pre-eclampsia with SF Dx on admission by SR blood pressures, admission for emergency CS for abruption, s/p IV Mg 11/06-11/07 Current regimen: adalat 30 mg BID, labetalol 200 mg BID (last took 11/14 0930) SR Bps in triage - received IV labetalol 20 mg Symptomatic for RUQ pain only Hx of CS x1 Emergency at 34w due to abruption, sPreE PPH >1L, received 1u pRBCs per patient T2DM Long standing history of HbA1c >8 per chart review HbA1c on admission = 10% Current regimen: metformin 1000 mg daily BG on admission 225 Hx of shoulder dystocia 2014 of 11# with shoulder dystocia, had clavicle fracture Hx of D&C, delayed PPH 2013 D&C 3d after , delayed PPH, due to RPOC Abnormal urine toxicology screen 11/06/2024 urine screen: +amphetamine, +benzodiazepines. +ecstasy, +opioid Previously has been prescribed Adderall, alprazolam Potentially +opioids from anesthesia during CS Patient explains other drugs as above, unsure how she was positive for ecstasy Hx of TIA vs complex migraine vs MS Patient reported as stroke Dx 12/2016 - presented to ED for L sided weakness and L hearing loss. 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 ASA has had MS work-up due to concurrent rash per neurology note on 09/2021 - taking subcutaneous ajovy q3mo Denies new neurologic symptoms Hx of left nipple lesion Dx 2016, patient reports this was breast cancer for which she received a lumpectomy and was on tamoxifen therapy Per chart review, saw general surgery at OSH 01/2017 and had inverted nipple with bloody discharge 02/2016 mammogram benign 02/09/17 S/p excision lesion of left nipple + microdochectomy (removal of milk duct): pathology benign Hx appendectomy 05/2006 HIV in Dx at OSH on admission for CS 11/06/24 preliminary HIV Ab screen reactive, VL <20 Hx of bipolar disorder Unclear dx on chart review Per patient sees outside provider who prescribed her adderral, lamictal, and bupropion isac, alprazolam PRN Takes adderral 20 mg BID, last took 11/14 Takes alprazolam PRN, last use days ago Dating Summary No data available OB History Para Term AB Living 3 2 1 1 1 2 SAB IAB Ectopic Multiple Live Births 2 # Outcome Date GA Lbr Wan/2nd Weight Sex Type Anes PTL Lv 3 11/06/24 34w0d cs esther lt Gen [place] Comments: emergent LTCS for abruption 34w, PPH requiring 1u pRBC Complications: Hemorrhage, Abruptio Placenta 2 Term 2013 Spont vag [place] Comments: IOL oligohydramnios, uncontrolled T2DM, 11# shoulder dystocia with clavicle fracture, delayed PPH 3d later requiring D&C Complications: Retained placenta, Shoulder Dystocia, Hemorrhage 1 AB SAB Comments: D&C Prior Delivery: Yes None. Prior Shoulder Dystocia: Yes. Prior Delivery: Yes. Low transverse. Number of prior Deliveries 1.. Diabetes in : Pregestational type II. Hypertension in : Pre-eclampsia WITH severe features Infertility treatment: None. Conditions: None Anatomic Malformations: None Other Maternal Medical Conditions: Neurologic disease. Infections in : HIV. History: Had total of less than 3 visits. Past Medical History: Diagnosis Date Intractable chronic migraine without aura and without status migrainosus 2016 complex migraine, negative MS workup, on ajovy q3mo Lesion of left nipple 02/09/2017 s/p excision of lesion + milk duct, pathology benign, 2016 mammo benign TIA (transient ischemic attack) 12/2016 presented to ED for L sided weakness, CTH/CTA/MRI wnl, vs complex migraine Past Surgical History: Procedure Laterality Date APPENDECTOMY 05/2006 DELIVERY ONLY 11/06/2024 PPH, 1u PRBC DILATION & CURETTAGE, DX &/OR THERAPEUTIC (NONOBSTETRICAL) 2014 delayed PPH, RPOC DILATION & CURETTAGE, DX &/OR THERAPEUTIC (NONOBSTETRICAL) SAB EXCISION, BREAST LESION(S), OPEN, MALE/FEMALE; 1 OR MORE Left 02/09/2017 left nipple lesion + milk duct TONSILLECTOMY & ADENOIDECTOMY; AGE 12+ No family history on file. Allergies Allergen Reactions Verapamil Anaphylactic Shock Botulinum Toxin Type A Itching Onabotulinumtoxina Itching, Rash and Swelling Face tingling and skin itching. Bandage Tape Rash Latex Other and Rash No current facility-administered medications on file prior to encounter. Current Outpatient Medications on File Prior to Encounter Medication Sig Dispense Refill ALPRAZolam (XANAX) 0.25 MG tablet Take 1 mg by mouth 3 times daily as needed for Anxiety. amphetamine-dextroamphetamine (ADDERALL) 5 MG tablet Take 20 mg by mouth 2 times daily. OB Problem List None noted. Problems (from 11/14/24 to present) Problem Noted Diagnosed Resolved Pre-eclampsia, antepartum (HCC) 11/15/2024 by Janna Carrasco MD No Review Of Systems: Skin: bruises where IV was attempted Eyes: negative review of symptoms Ears/Nose/Throat: negative Respiratory: dyspnea on exertion Cardiovascular: negative symptoms Gastrointestinal: RUQ pain Genitourinary: no urinary symptoms Neurologic: negative symptoms O: BP 113/73 (BP Location: left arm) Pulse 81 Temp 98 F (36.7 C) (Oral) Resp 18 SpO2 95% Unknown GEN: NAD Neck: thyroid not enlarged CV: Regular rate and rhythm Lungs: Clear bilaterally Abd: exquisite TTP in RUQ towards R midline - unable to fully perform exam due to patient discomfort. No TTP in other quadrants, incision c/d/I without incisional pain Back: no CVAT Ext: no edema, non-tender 11/15/2024 OB Pre-eclampsia Labs Hgb 10.2 Hct 30.7 RBC 3.85 WBC 15.6 Mch 26.4 Mchc 33.0 Mcv 80 BUN 9 Creatinine 0.67 Uric Acid 3.6 Ast 15 Alt 11 Pt Pt 11.7 Pt Pat 11.7 Plt 360 11/15/2024 12:52 AM Protime 11.7 INR 1.04 Hemoglobin A1c 10.0 (H) Estimated Avg Glucose 240 aPTT 27 Fibrinogen 793 (H) A/P: 29 year old at POD#8 s/p emergency pLTCS for abruption +NRFS with Pre-eclampsia with SF here for intra-abdominal abscess, blood pressure management. #) Suspected Intra-abdominal abscess - dx by CTAP in OSH - 4.9 x 6.9 x 5.6 cm in RUQ/R hemicolon - VS: AF, non-tachycardic, hypertensive (see PreEwSF) - labs: WBC 15.6, L shift; hgb 10.2 - stable from OSH - EGS consulted, appreciate recs: - received IV zosyn x1 at OSH, continued on this admission - low suspicion for intra-abdominal bleeding given Hgb stable, coags wnl, low concern on imaging - possible HIV infection 11/06 HIV Ab +, 11/11 HIV VL <20, last check in 2019 HIV negative - Bcx ordered - ID consulted regarding antibiotic plan #) Pre-eclampsia WITH severe features - Dx by persistent SR Bps requiring short acting anti-hypertensives in triage - in CS admission 11/06-11/09/24, dx by persistent SR BPs received 24h IV Mg, started on long-acting meds - Persistent SR - @11/147 - received IV labetalol 20 mg - @11/15 010 - received IV labetalol 40 mg - Bps : 120s-150s/90s - Long-acting anti-hypertensive meds: adalat 30 mg BID, labetalol 200 mg BID, ordered on admission - can consider increasing if remaining hypertensive - no indication to restart IV Magnesium for seizure prophylaxis given no pre- eclampsia symptoms/HERNADEZ - Serum HELLP labs unremarkable - Symptomatic for RUQ pain only, see above - Continue to monitor for s/sx of worsening HTN disease - To be discharged with team primary care physician and short interval BP check nurse visit #) T2DM - Long standing history of HbA1c >8 per chart review - HbA1c on admission = 10% - Current regimen: metformin 1000 mg daily - BG on admission 225 - received 2 units lispro - POCT glucose ordered per protocol #) Hx of TIA vs complex migraine vs MS - Dx 12/2016 - presented to ED for L sided weakness and L hearing loss. 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 +ecstasy, +opioid - Previously has been prescribed Adderall, alprazolam - Potentially +opioids from anesthesia during CS - Patient explains other drugs as above, unsure how she was positive for ecstasy - amenable to Utox, ordered - given unclear history and social situation, SW consult ordered #) Hx of bipolar disorder - Unclear dx on chart review - Per patient sees outside provider who prescribed her adderral, lamictal, and bupropion isac, alprazolam PRN - Takes adderral 20 mg BID, last took 11/14 - Takes alprazolam PRN, last use days ago #) Routine - Afebrile, VSS - meeting all PP milestones - A Positive/ rubella equivocal - MMR ordered - Formula feeding - Female Sterilization contraception - desires interval TL Janna Carrasco MD/MPH COMPUTER OPERATIONS TECHNICIAN PGY-2 LABOR AND DELIVERY ATTENDING PHYSICIAN NOTE: I saw and evaluated this patient on labor and delivery triage with the resident. I personally obtained the vizcaino and critical portions of the visit. I reviewed the documentation and discussed the patient with the resident. I agree with the findings and medical decision making as documented in the resident's note. A/P: BERNADETTE Faust is a 29 year old at POD#8 s/p emergency pLTCS for abruption +NRFS with Pre-eclampsia with SF here for intra-abdominal abscess, blood pressure management. - transfer to L&D High-Risk unit - plan as in resident's note I personally explained the management plan to the patient. Adelfo Nice MD, PhD, FACOG 11/15/24 6:[address] Nice. [id number] NoteLABOR AND DELIVERY HISTORY AND PHYSICAL NOTE 11/15/2024 4:44 AM Chief complaint: Chief Complaint Patient presents with Abdominal pain Post c/s 11/06/23 - right upper side per pt an abdominal cyst BERNADETTE Faust is a 29 year old at POD#9 s/p emergent pLTCS at 34w for abruption and pre-eclampsia with SF who presents to Labor and Delivery for acutely worsening RUQ pain transferred from [facility]. RUQ pain has been present since patient had sudden abruption of >1L blood loss at home. States pain had never improved during her post-operative course but was discharged without her pain being addressed properly. It worsened to the point of acute pain with tenderness to palpation. She denies nausea and vomiting but has some difficulty eating and breathing due to pressure from above on her RUQ. She denies HERNADEZ, visual changes. Lochia is minimal. Meeting all post-operative milestones otherwise. Her has been complicated by: Suspected intra-abdominal abscess Received IV zosyn at OSH WBC on admission 15.6 VS: Afebrile at OSH, in triage, Non tachycardia, hypertensive (see PreE) Pre-eclampsia with SF Dx on admission by SR blood pressures, admission for emergency CS for abruption, s/p IV Mg 11/06-11/07 Current regimen: adalat 30 mg BID, labetalol 200 mg BID (last took 11/14 0930) SR Bps in triage - received IV labetalol 20 mg Symptomatic for RUQ pain only Hx of CS x1 Emergency at 34w due to abruption, sPreE PPH >1L, received 1u pRBCs per patient T2DM Long standing history of HbA1c >8 per chart review HbA1c on admission = 10% Current regimen: metformin 1000 mg daily BG on admission 225 Hx of shoulder dystocia 2013 of 11# with shoulder dystocia, had clavicle fracture Hx of D AND C, delayed PPH 2013 D AND C 3d after , delayed PPH, due to RPOC Abnormal urine toxicology screen 11/06/2024 urine screen: +amphetamine, +benzodiazepines. +ecstasy, +opioid Previously has been prescribed Adderall, alprazolam Potentially +opioids from anesthesia during CS Patient explains other drugs as above, unsure how she was positive for ecstasy Hx of TIA vs complex migraine vs MS Patient reported as stroke Dx 12/2016 - presented to ED for L sided weakness and L hearing loss. 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 ASA has had MS work-up due to concurrent rash per neurology note on 09/2021 - taking subcutaneous ajovy q3mo Denies new neurologic symptoms Hx of left nipple lesion Dx 2016, patient reports this was breast cancer for which she received a lumpectomy and was on tamoxifen therapy Per chart review, saw general surgery at OSH 01/2017 and had inverted nipple with bloody discharge 02/2016 mammogram benign 02/09/17 S/p excision lesion of left nipple + microdochectomy (removal of milk duct): pathology benign Hx appendectomy 05/2006 HIV in Dx at OSH on admission for CS 11/06/24 preliminary HIV Ab screen reactive, VL <20 Hx of bipolar disorder Unclear dx on chart review Per patient sees outside provider who prescribed her adderral, lamictal, and bupropion isac, alprazolam PRN Takes adderral 20 mg BID, last took 11/14 Takes alprazolam PRN, last use days ago Dating Summary No data available OB History Para Term AB Living 3 2 1 1 1 2 SAB IAB Ectopic Multiple Live Births 2 # Outcome Date GA Lbr Wan/2nd Weight Sex Type Anes PTL Lv 3 11/06/24 34w0d cs esther lt Gen [place] Comments: emergent LTCS for abruption 34w, PPH requiring 1u pRBC Complications: Hemorrhage, Abruptio Placenta 2 Term 2014 Spont vag [place] Comments: IOL oligohydramnios, uncontrolled T2DM, 11# shoulder dystocia with clavicle fracture, delayed PPH 3d later requiring D AND C Complications: Retained placenta, Shoulder Dystocia, Hemorrhage 1 AB SAB Comments: D AND C Prior Delivery: Yes None. Prior Shoulder Dystocia: Yes. Prior Delivery: Yes. Low transverse. Number of prior Deliveries 1.. Diabetes in : Pregestational type II. Hypertension in : Pre-eclampsia WITH severe features Infertility treatment: None. Conditions: None Anatomic Malformations: None Other Maternal Medical Conditions: Neurologic disease. Infections in : HIV. History: Had total of less than 3 visits. 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07-09-2024 Telephone encounter Note* Telephone Encounter - Rukhsana Dyson MA - 05/07/2024 11:44 AM EDT Started Care Gap encounter. Rukhsana Dyson MA [facility]07-09-2024 Miscellaneous Notes* Telephone Encounter - Rukhsana Dyson MA - 05/07/2024 11:44 AM EDT Started Care Gap encounter. Rukhsana Dyson MA * Telephone Encounter - Marlo Loza APRN.CNP - 05/07/2024 10:31 AM EDT STAMP Please reach out to patient for overdue appointment for chronic disease management with myself. If he/she is no longer following with Dr. Sotelo, please remove name from PCP field. Due for physical, would need 40 minutes. Marlo Loza APRN.CNP documented in this [facility] History of Present illness Narrative* Rukhsana Dyson MA - 05/07/2024 11:29 AM EDT POPULATION HEALTH NAVIGATION OUTREACH Action/FYI Attempted to reach pt on mobile number, but number was invalid. Called pt at home number, but pt VMhas not been setup yet and was unable to LM message. Letter mailed to pt's address on file. In letter it asks for pt to contact office to setup Wellnessvisit with PCP Team or to update team if seeing new Provider. It also states if not contacted within 7 days, we assume she is receiving care through another provider. Pt has been contacted several times as an outreach with no response back. Reason for Outreach Care Gap/HCC or Scheduling Wellness Visits Care Gaps due: Physical Annual Wellness Visit Patient Contacted: Unable or unnecessary to reach patient: Unable to leave message Navigation Signature: Rukhsana Dyson MA May 07, 2024 11:29 AM documented in this encounterAs[facility] Telephone encounter Note * Telephone Encounter - Marlo Loza APRN.CNP - 05/07/2024 10:31 AM EDT STAMP Please reach out to patient for overdue appointment for chronic disease management with myself. If he/she is no longer following with Dr. Sotelo, please remove name from PCP field. Due for physical, would need 40 minutes. Marlo Loza APRN.DENIA [facility]12-16-2021 NoteHNO ID: [id number] Author: RT Joseph(R) Service: ? Author Type: Facilities Maintenance Manager Type: Progress Notes Filed: 10/14/2021 11:43 AM Note Text: Radiology Service Progress Note DATE OF SERVICE: October 14, 2021 TIME: 11:42 AM PATIENT IDENTITY VERIFICATION COMPLETED USING TWO (2) STANDARD IDENTIFIERS: Name and Date of confirmed by patient verbally. FALL SCREENING: Has the patient had 2 falls in the last year or 1 fall with injury or currently using an Ambulatory Assistive Device (Walker, Cane, Wheelchair, Crutches, etc.)? No PATIENT GENDER DATA: Female. status: : No status: NO. PATIENT RELEVANT IMPLANT DATA REVIEWED: Yes ALLERGIES: Reviewed and unchanged CONTRAST ALLERGY: NO. EXAM: CT -CONTRAST INDUCED NEPHROPATHY RISK FACTORS: Not applicable CREATININE: Creatinine Date Value Ref Range Status 10/07/2021 0.93 0.58 - 0.96 mg/dL Final 02/21/2019 0.76 0.58 - 0.96 mg/dL Final 01/22/2019 0.65 0.58 - 0.96 mg/dL Final eGFR-All Other Races Date Value Ref Range Status 10/07/2021 >60 . Final Comment: eGFR (Estimated GFR) Units of measure: [...] eGFR may not accurately reflect actual GFR. Note: On 12/25/2021, the eGFR calculation will be updated to the NKF-ASN Task Force recommended 2020 CKD-EPI creatinine equation which does not include a race variable. For more information or to access a 2020 CKD-EPI calculator, visit the [employer] website at kidney.org/professionals/kdoqi/gfr_calculator. eGFR- Date Value Ref Range Status 10/07/2021 >60 Final P.O.C.T. RESULTS: POC done: Yes, See Lab Tab October 14, 2021 TREATMENT: N/A PERIPHERAL IV DATA: Ambulatory: A peripheral IV was started in the Right forearm with a Angio cath: 22 gauge. RADIOLOGY DEPARTMENT: CT; Exam(s) Completed: Neck SIGNATURE: RT Genaro(R) PATIENT NAME: Bernadette Faust DATE: October 14, 2021 TIME: 11:42 [facility]12-09-2021 NoteHNO ID: [id number] Author: Kateryna Farah PA-C Service: ? Author Type: Physician Billet Worker Type: Progress Notes Filed: 10/07/2021 2:53 PM Note Text: Chief Complaint Patient presents with: swollen lymph node HPI Bernadette Faust is a 26 year old female who presents here today for Above Complaints.. Patient was seen a month ago for boils and reactive lymph nodes. She was given doxy. Boils have improved but lymph node is still painful and enlarged. Not worsening but not improving. Patient also has not done her routine labs yet. Has not been seen for routine care in some time She is asking for refills on gabapentin, flexeril and albuterol. I do not see where this has been prescribed by PCP in the past. Past medical history, appointments, medications, allergies reviewed. Previous Medical History PAST MEDICAL HISTORY Diagnosis Date - Acne - Acute, but ill-defined, cerebrovascular disease 12/2016 CVA - Bipolar affective disorder (HCC) 10/01/2018 - [...] mellitus (HCC) - Unspecified asthma(493.90) EXERCISE INDUCED Previous [...] Paternal Aunt - No Known Problems Daughter Patient Allergies ALLERGIES Allergen Reactions - Botox [Onabotulinum* Other: See Comments Face tingling and skin itching. - Latex Unknown - Tape [Other] Rash - Verapamil Anaphylaxis Current Medications Current Outpatient Medications on File Prior to Visit Medication Sig - rizatriptan (MAXALT) 10 mg tablet Take 10 mg by mouth as needed. May repeat in 2 hours if needed - rimegepant (NURTEC ODT) 75 mg disintegrating tablet Take 75 mg by mouth once daily as needed. - ALPRAZolam (XANAX) 0.5 mg tablet - AJOVY AUTOINJECTOR 225 mg/1.5 mL auto-injector INJECT 3 PENS INTO THE SKIN EVERY 3 MONTHS - keTORolac (TORADOL) 60 mg/2 mL soln INJECT 1 ML INTO THE MUSCLE EVERY 12 HOURS NEEDED FOR PAIN (MIGRAINE) - predniSONE (DELTASONE) 20 mg tablet 3 tabs a day by mouth for the next 5 days - ondansetron orally disintegrating (ZOFRAN ODT) 4 mg disintegrating tablet Take 1 tablet by mouth every 6 hours as needed for Nausea/Vomiting. - aspirin, enteric coated (ASPIRIN, ENTERIC COATED) 81 mg EC tablet Take 81 mg by mouth once daily. - buPROPion SR (ZYBAN SR; WELLBUTRIN SR) 150 mg 12 hr tablet Take 1 tablet by mouth twice daily. - amphetamine-dextroamphetamine XR (ADDERALL XR) 20 mg 24 hr capsule Take 1 capsule by mouth once daily for 30 days. Earliest Fill Date: 10/01/18 - lamoTRIgine (LAMICTAL) 100 mg tablet Take 1 tablet by mouth once daily. - albuterol (PROVENTIL) 2.5 mg /3 mL (0.083 %) nebulizer solution Use 2.5 mg via nebulizer every 4 hours as needed. - cetirizine (ZYRTEC) 10 mg tablet Take 10 mg by mouth once daily. - meclizine (ANTIVERT) 25 mg tab Take 1 tablet by mouth every 6 hours as needed (dizziness). - EPINEPHrine (EPIPEN) 0.3 mg/0.3 mL auto-injector Use as directed prn allergic reaction - naproxen (NAPROSYN) 500 mg tablet Take 1 tablet by mouth twice daily with meals. - ranitidine (ZANTAC) 150 mg tablet Take 1 tablet by mouth twice daily. - Blood-Glucose Meter misc 1 Package four times daily. Check blood sugars fasting and 2 hours after meals. - pyridoxine, vitamin B6, (VITAMIN B6) 25 mg tablet Take 1 tablet by mouth daily at bedtime. - acetaminophen 325 mg-caffeine 40 mg-butalbital 50 mg (FIORICET) per tablet Take 1 tablet by mouth every 4 hours as needed. - mometasone (ASMANEX) 220 mcg (60 doses) aepb Inhale 1 Puff as instructed once daily. - SUMAtriptan (IMITREX) 50 mg tablet Take 50 mg by mouth as needed. - triamcinolone acetonide (NASACORT AQ) 55 mcg nasal inhaler Use 1 [place] in the nose as needed. - gabapentin (NEURONTIN) 800 mg tablet Take 800 mg by mouth. takes a sneeded - promet (more content not included)...[facility]11-09-2021 Note HNO ID: [id number] Author: Jenn Lopez APRN.SOURCING CONSULTANT Service: ? Author Type: Nurse Practitioner Type: Progress Notes Filed: 09/07/2021 2:41 PM Note Text: This is a 26 year old female who presents today with: Patient presents with: Recheck: Urg Care follow up HISTORY OF PRESENT ILLNESS: Bernadette Faust is a 26 year old female. Patient presents with: Recheck: Urg Care follow up Pt presents today for urgent care follow-up. Refers was living in a house that was having lamp shade sewer back-ups. Refers that there was constant raw sewage at the top of the drain. Refers when she was living there, nothing would heal properly. Had frequent bloody noses. Worsening migraines. She has moved out now. She started living in a hotel because she couldn't take it any longer. She presented to urgent care on 08/31/21 w/ skin lesions. She did have scalp wound cultured. Did grow few mrsa. She had been started on doxy. She does report improvement of her lesions. However, she reports scabs all over her legs that just have not been healing well. She has a dx of diabetes, but reports this was only during . She has orders for labs pending. PAST MEDICAL HISTORY: PAST MEDICAL HISTORY Diagnosis Date - Acne - Acute, but ill-defined, cerebrovascular disease 12/2016 CVA - Bipolar affective disorder (HCC) 10/01/2018 - Breast cancer ([facility]) - Chronic appendicitis 2005 S/P lap appendectomy. - Family history of defects 05/27/2013 05/27/2013 Father of the baby was born with a hole in his heart. No surgical correction needed. Father the baby's niece born with spina bifida. Patient's first cousin diagnosed with Asperger's Syndrome. TKRN - FRACTURE 2004 FOOT - Gestational diabetes 10/31/2013 - Migraine - Stroke ([facility]) - Type 2 diabetes mellitus ([facility]) - Unspecified asthma(493.90) EXERCISE INDUCED PAST SURGICAL HISTORY Procedure Laterality Date - APPENDECTOMY summer 2005 - BREAST LUMPECTOMY HX - DANDC AFTER DELIVERY 01/03/14 3 days PP, delayed PP hemorrhage - EXCISION OF LINGUAL TONSIL 06/01 - PAST SURGICAL HISTORY OF left knee surgery ALLERGIES Botox [Onabotulinumtoxina], Latex, Tape [Other], and Verapamil MEDICATIONS Current Outpatient Medications Medication Sig - ALPRAZolam (XANAX) 0.5 mg tablet - diphenhydrAMINE (BENADRYL) 25 mg capsule Take 25 mg by mouth. - AJOVY AUTOINJECTOR 225 mg/1.5 mL auto-injector INJECT 3 PENS INTO THE SKIN EVERY 3 MONTHS - keTORolac (TORADOL) 60 mg/2 mL soln INJECT 1 ML INTO THE MUSCLE EVERY 12 HOURS NEEDED FOR PAIN (MIGRAINE) - doxycycline (VIBRA-TABS) 100 mg tablet Take 1 tablet by mouth twice daily for 10 days. - predniSONE (DELTASONE) 20 mg tablet 3 tabs a day by mouth for the next 5 days - ranitidine (ZANTAC) 150 mg tablet Take 1 tablet by mouth twice daily. - ondansetron orally disintegrating (ZOFRAN ODT) 4 mg disintegrating tablet Take 1 tablet by mouth every 6 hours as needed for Nausea/Vomiting. - aspirin, enteric coated (ASPIRIN, ENTERIC COATED) 81 mg EC tablet Take 81 mg by mouth once daily. - cyclobenzaprine (FLEXERIL) 10 mg tablet Take 1 tablet by mouth twice daily as needed. - Blood-Glucose Meter misc 1 Package four times daily. Check blood sugars fasting and 2 hours after meals. - pyridoxine, vitamin B6, (VITAMIN B6) 25 mg tablet Take 1 tablet by mouth daily at bedtime. - buPROPion SR (ZYBAN SR; WELLBUTRIN SR) 150 mg 12 hr tablet Take 1 tablet by mouth twice daily. - amphetamine-dextroamphetamine XR (ADDERALL XR) 20 mg 24 hr capsule Take 1 capsule by mouth once daily for 30 days. Earliest Fill Date: 10/01/18 - lamoTRIgine (LAMICTAL) 100 mg tablet Take 1 tablet by mouth once daily. - acetaminophen (TYLENOL) 500 mg tablet Take 500 mg by mouth every 8 hours as needed. - acetaminophen 325 mg-caffeine 40 mg-butalbital 50 mg (FIORICET) per tablet Take 1 tablet by mouth every 4 hours as needed. - albuterol (PROVENTIL) 2.5 mg /3 mL (0.083 %) nebulizer solution Use 2.5 mg via nebulizer every 4 hours as needed. - cetirizine (ZYRTEC) 10 mg tablet Take 10 mg by mouth once daily. - mometasone (ASMANEX) 220 mcg (60 doses) aepb Inhale 1 Puff as instructed once daily. - SUMAtriptan (IMITREX) 50 mg tablet Take 50 mg by mouth as needed. - triamcinolone acetonide (NASACORT AQ) 55 mcg nasal inhaler Use 1 [place] in the nose as needed. - gabapentin (NEURONTIN) 800 mg tablet Take 800 mg by mouth. takes a sneeded - promethazine (PHENERGAN) 25 mg tablet Take 1 tablet by mouth every 6 hours as needed. - meclizine (ANTIVERT) 25 mg tab Take 1 tablet by mouth every 6 hours as needed (dizziness). - hydrOXYzine pamoate (VISTARIL) 25 mg capsule Take 1 capsule by mouth three times daily as needed for Anxiety. - EPINEPHrine (EPIPEN) 0.3 mg/0.3 mL auto-injector Use as directed prn allergic reaction - blood sugar diagnostic (BLOOD GLUCOSE TEST) test strip Test blood sugar(s) 3 times daily. Dx: Type 2 DM - Controlled E (more content not included)...[facility]11-02-2021 NoteHNO ID: [id number] Author: John Guillen PA-C Service: ? Author Type: Physician Billet Worker Type: Progress Notes Filed: 08/31/2021 6:21 PM Note Text: 08/31/2021 Patient presents with: Breathing Problem: sewage back-up smell and gas x 2 months SUBJECTIVE: This is a 26 year old that is here today for Complaint(s) of breathing problem x 2 months. States she has been living in a house with raw sewage in the pipes in the basement. She had SOB. [facility] stroke in 2017. Reports since moving out 10 days ago symptoms has overall started to improve. Then worsening the last 4 days while she was moving out. Reports nasal drainage that was castillo, worsening migraines while living in the house for 2 weeks, occasional cough, joint pain. Winfred like it was worse when the furnace. While moved out of the house symptoms were significantly improved and HAs were improved. Denies fever/chills, Fiance would stay in the house when in [place], and has not been in the house frequently. Feels congestion in the lungs. No fevers. She also describes sores on her legs and back of her scalp that she has never had previously until living in the house. No longer living in the house. And SOB is improving. PAST MEDICAL HISTORY Diagnosis Date - Acne - Acute, but ill-defined, cerebrovascular disease 12/2016 CVA - Bipolar affective disorder (HCC) 10/01/2018 - [...] mellitus (HCC) - Unspecified asthma(493.90) EXERCISE INDUCED ALLERGIES Botox [Onabotulinumtoxina], Latex, Tape [Other], and Verapamil MEDICATIONS Current Outpatient Medications Medication Sig - ALPRAZolam (XANAX) 0.5 mg tablet - diphenhydrAMINE (BENADRYL) 25 mg capsule Take 25 mg by mouth. - AJOVY AUTOINJECTOR 225 mg/1.5 mL auto-injector INJECT 3 PENS INTO THE SKIN EVERY 3 MONTHS - keTORolac (TORADOL) 60 mg/2 mL soln INJECT 1 ML INTO THE MUSCLE EVERY 12 HOURS NEEDED FOR PAIN (MIGRAINE) - predniSONE (DELTASONE) 20 mg tablet 3 tabs a day by mouth for the next 5 days - ranitidine (ZANTAC) 150 mg tablet Take 1 tablet by mouth twice daily. - ondansetron orally disintegrating (ZOFRAN ODT) 4 mg disintegrating tablet Take 1 tablet by mouth every 6 hours as needed for Nausea/Vomiting. - aspirin, enteric coated (ASPIRIN, ENTERIC COATED) 81 mg EC tablet Take 81 mg by mouth once daily. - cyclobenzaprine (FLEXERIL) 10 mg tablet Take 1 tablet by mouth twice daily as needed. - Blood-Glucose Meter misc 1 Package four times daily. Check blood sugars fasting and 2 hours after meals. - pyridoxine, vitamin B6, (VITAMIN B6) 25 mg tablet Take 1 tablet by mouth daily at bedtime. - buPROPion SR (ZYBAN SR; WELLBUTRIN SR) 150 mg 12 hr tablet Take 1 tablet by mouth twice daily. - lamoTRIgine (LAMICTAL) 100 mg tablet Take 1 tablet by mouth once daily. - acetaminophen 325 mg-caffeine 40 mg-butalbital 50 mg (FIORICET) per tablet Take 1 tablet by mouth every 4 hours as needed. - albuterol (PROVENTIL) 2.5 mg /3 mL (0.083 %) nebulizer solution Use 2.5 mg via nebulizer every 4 hours as needed. - cetirizine (ZYRTEC) 10 mg tablet Take 10 mg by mouth once daily. - SUMAtriptan (IMITREX) 50 mg tablet Take 50 mg by mouth as needed. - gabapentin (NEURONTIN) 800 mg tablet Take 800 mg by mouth. takes a sneeded - promethazine (PHENERGAN) 25 mg tablet Take 1 tablet by mouth every 6 hours as needed. - meclizine (ANTIVERT) 25 mg tab Take 1 tablet by mouth every 6 hours as needed (dizziness). - EPINEPHrine (EPIPEN) 0.3 mg/0.3 mL auto-injector Use as directed prn allergic reaction - blood sugar diagnostic (BLOOD GLUCOSE TEST) test strip Test blood sugar(s) 3 times daily. Dx: Type 2 DM - Controlled E11.9 Insulin: No. Elevated sugars and fluctuating sugars. - albuterol HFA (VENTOLIN HFA) 90 mcg/actuation inhaler Inhale 2 Puffs as instructed every 4 hours as needed for Wheezing/Shortness of Breath. - naproxen (NAPROSYN) 500 mg tablet Take 1 tablet by mouth twice daily with meals. - amphetamine-dextroamphetamine XR (ADDERALL XR) 20 mg 24 hr capsule Take 1 capsule by mouth once daily for 30 days. Earliest Fill Date: 10/01/18 - acetaminophen (TYLENOL) 500 mg tablet Take 500 mg by mouth every 8 hours as needed. - mometasone (ASMANEX) 220 mcg (60 doses) aepb Inhale 1 Puff as instructed once daily. - triamcinolone acetonide (NASACORT AQ) 55 mcg nasal inhaler Use 1 [place] in the nose as needed. - hydrOXYzine pamoate (VISTARIL) 25 mg capsule Take 1 capsule by mouth three times daily as needed for Anxiety. No current facility-administered medicatio (more content not included)... [facility]06-10-2021 NotePatient Outreach (FAMPWS) BERNADETTE FAUST ([id number]) 1995 [facility] Date Time Provider Department 04/08/21 RENY HATFIELD) FAMPWS During your visit today, we recorded the following information about you: Reny Hatfield Ma 04/08/2021 10:58 AM Signed POPULATION HEALTH NAVIGATION OUTREACH Action/FYI Pt was left a vm to return call and schedule a follow up appt with pcp or client sales and service officer. Contact made with patient or family member? NO Pt identified by name and : YES Outreach Outcome/Action Unable to reach patient: Left message Reason for Outreach Care Gap or Scheduling/Wellness visits Payer: Payor: [employer] BENEFITS PLAN / Plan: [employer] / Product Type: Other / Care Gap Reviewed:: Follow-up appointment Reminder: Reminder note to check Health Maintenance for items below Health Maintenance items due: DIABETIC FOOT EXAM Never done COVID-19 VACCINE(1) Never done ONE PNEUMOVAX PRIOR TO AGE 63 Never done SPIROMETRY Never done DILATED RETINAL EXAM due on 02/03/2018 HBA1C due on 12/06/2018 URINE ALBUMIN:CREATININE RATIO due on 06/05/2019 LDL CHOLESTEROL due on 06/05/2019 DEPRESSION SCREENING due on 01/23/2020 Reny Hatfield Ma April 08, 2021 10:57 AM Allergies As of Date: 04/08/2021 Noted Allergy Reaction BOTOX (ONABOTULINUMTOXINA) 10/06/2020 14 - Other: See Comments Comments: Face tingling and skin itching. LATEX 06/05/2018 16 - Unknown TAPE [Other] 11/23/2005 2 - Rash VERAPAMIL 06/05/2018 10 - Anaphylaxis Date Reviewed: 10/06/2020 Reviewed by: Hang Morales - Fully Assessed Reason for Visit: Appointment [186] Cmt: follow up and labs Prescriptions as of 04/08/2021 Sig: PREDNISONE 20 MG TABLET 3 tabs a day by mouth for the* RANITIDINE 150 MG TABLET Take 1 tablet by mouth twice * ONDANSETRON 4 MG DISINTEGRATI* Take 1 tablet by mouth every * ASPIRIN 81 MG TABLET,DELAYED * Take 81 mg by mouth once sherrie* CYCLOBENZAPRINE 10 MG TABLET Take 1 tablet by mouth twice * BLOOD-GLUCOSE METER 1 Package four times daily. C* PYRIDOXINE (VITAMIN B6) 25 MG* Take 1 tablet by mouth daily * BUPROPION HCL SR 150 MG TABLE* Take 1 tablet by mouth twice * DEXTROAMPHETAMINE-AMPHETAMINE* Take 1 capsule by mouth once * LAMOTRIGINE 100 MG TABLET Take 1 tablet by mouth once d* ACETAMINOPHEN 500 MG TABLET Take 500 mg by mouth every 8 * [id number]* Take 1 tablet by mouth every * ALBUTEROL SULFATE 2.5 MG/3 ML* Use 2.5 mg via nebulizer ever* CETIRIZINE 10 MG TABLET Take 10 mg by mouth once sherrie* MOMETASONE 220 MCG/ACTUATION(* Inhale 1 Puff as instructed o* SUMATRIPTAN 50 MG TABLET Take 50 mg by mouth as needed* TRIAMCINOLONE ACETONIDE 55 MC* Use 1 [place] in the nose as ne* GABAPENTIN 800 MG TABLET Take 800 mg by mouth. takes a* PROMETHAZINE 25 MG TABLET Take 1 tablet [...] twice * Problem List As Of Date 04/08/2021 Noted Resolved Inguinal hernia with obstruction, without menti*08/06/2005 03/18/2013 PAIN GROIN (right) [R10.9] 11/23/2005 03/18/2013 Abdominal pain, right lower quadrant [R10.31] 02/10/2006 03/18/2013 Lumbago [M54.5] 03/06/2009 Headache [R51] 03/18/2013 TMJ (temporomandibular joint syndrome) [M26.609]03/18/2013 Intermittent asthma with allergic rhinitis [J45*05/27/2013 Family history of defects [Z82.79] 05/27/2013 10/07/2015 Rubella non-immune status, antepartum [O99.891,*06/20/2013 02/11/2014 Gestational diabetes [O24.419] 10/31/2013 02/11/2014 Supervision of other high-risk (V23.89*11/25/2013 02/11/2014 Type 2 diabetes mellitus without complication (*11/16/2016 Anxiety [F41.9] 11/16/2016 Bipolar affective disorder (HCC) [F31.9] 10/01/2018 Support system deficit [Z65.8] 10/11/2018 History of loss in prior , c*10/11/2018 10/29/2018 History of bipolar disorder [Z86.59] 10/11/2018 History of stroke [Z86.73] 10/11/2018 History of gestational diabetes in prior pregna*10/11/2018 10/29/2018 History of macrosomia in in prior pregna*10/11/2018 10/29/2018 History of shoulder dystocia with result of fra*10/11/2018 10/29/2018 History of hemorrhage, currently pre*10/11/2018 10/29/2018 Patient request for diagnostic testing [Z01.89] 10/11/2018 Breast pain, left [N64.4] 10/15/2018 Positive BARTOLO (antinuclear antibody) [R76.8] 10/15/2018 Supervision of high risk in first tri*10/15/2018 10/29/2018 Encounter Status:Closed by RENY HATFIELD MA on 04/08/21[facility]06-10[facility] NoteHNO ID: [id number] Author: Reny Hatfield Ma Service: ? Author Type: ? Type: Progress Notes Filed: 04/08/2021 10:58 AM Note Text: POPULATION HEALTH NAVIGATION OUTREACH Action/FYI Pt was left a vm to return call and schedule a follow up appt with pcp or client sales and service officer. Contact made with patient or family member? NO Pt identified by name and : YES Outreach Outcome/Action Unable to reach patient: Left message Reason for Outreach Care Gap or Scheduling/Wellness visits Payer: Payor: LIMITED BENEFITS PLAN / Plan: [employer] / Product Type: Other / Care Gap Reviewed:: Follow-up appointment Reminder: Reminder note to check Health Maintenance for items below Health Maintenance items due: DIABETIC FOOT EXAM Never done COVID-19 VACCINE(1) Never done ONE PNEUMOVAX PRIOR TO AGE 63 Never done SPIROMETRY Never done DILATED RETINAL EXAM due on 02/03/2018 HBA1C due on 12/06/2018 URINE ALBUMIN:CREATININE RATIO due on 06/05/2019 LDL CHOLESTEROL due on 06/05/2019 DEPRESSION SCREENING due on 01/23/2020 Reny Hatfield Ma April 08, 2021 10:57 [facility]05-03-2021 NotePatient Outreach (FAMPWS) BERNADETTE FAUST ([id number]) 1995 [facility] Date Time Provider Department 03/01/21 RUKHSANA DYSON (JEAN) FAMPWS During your visit today, we recorded the following information about you: Rukhsana Dyson MA 03/01/2021 11:04 AM Signed POPULATION HEALTH NAVIGATION OUTREACH Action/ This is the office's second attempt on scheduling pt for Care Gap Outreach as requested by PCP for DM f/u. Pt was originally scheduled on 02/17 as requested by her and she has cancelled and no showed her two appt w/no f/u scheduled. Pt has been sent a 3TIER message notifying her that she needs to schedule a follow up visit with PCP or another Provider and complete labs. Contact made with patient or family member? YES Pt identified by name and : YES Outreach Outcome/Action Echo[employer] message sent Reason for Outreach Care Gap or Scheduling/Wellness visits Payer: Payor: LIMITED BENEFITS PLAN / Plan: [employer] / Product Type: Other / Care Gap Reviewed:: Follow-up appointment HBA1C Reminder: Reminder note to check Health Maintenance for items below Health Maintenance items due: DIABETIC FOOT EXAM Never done ONE PNEUMOVAX PRIOR TO AGE 63 Never done SPIROMETRY Never done DILATED RETINAL EXAM due on 02/03/2018 HBA1C due on 12/06/2018 URINE ALBUMIN:CREATININE RATIO due on 06/05/2019 LDL CHOLESTEROL due on 06/05/2019 DEPRESSION SCREENING due on 01/23/2020 Referrals: N/A Message Sent to Practice: NA Navigation Signature: Rukhsana Dyson MA March 01, 2021 10:56 AM Allergies As of Date: 03/01/2021 Noted Allergy Reaction BOTOX (ONABOTULINUMTOXINA) 10/06/2020 14 - Other: See Comments Comments: Face tingling and skin itching. LATEX 06/05/2018 16 - Unknown TAPE [Other] 11/23/2005 2 - Rash VERAPAMIL 06/05/2018 10 - Anaphylaxis Date Reviewed: 10/06/2020 Reviewed by: Hang Morales - Fully Assessed Reason for Visit: PHMA/Care Gap Outreach [[id number]] Cmt: APPT Prescriptions as of 03/01/2021 Sig: PREDNISONE 20 MG TABLET 3 tabs a day by mouth for the* RANITIDINE 150 MG TABLET Take 1 tablet by mouth twice * ONDANSETRON 4 MG DISINTEGRATI* Take 1 tablet by mouth every * ASPIRIN 81 MG TABLET,DELAYED * Take 81 mg by mouth once sherrie* CYCLOBENZAPRINE 10 MG TABLET Take 1 tablet by mouth twice * BLOOD-GLUCOSE METER 1 Package four times daily. C* PYRIDOXINE (VITAMIN B6) 25 MG* Take 1 tablet by mouth daily * BUPROPION HCL SR 150 MG TABLE* Take 1 tablet by mouth twice * DEXTROAMPHETAMINE-AMPHETAMINE* Take 1 capsule by mouth once * LAMOTRIGINE 100 MG TABLET Take 1 tablet by mouth once d* ACETAMINOPHEN 500 MG TABLET Take 500 mg by mouth every 8 * [id number]* Take 1 tablet by mouth every * ALBUTEROL SULFATE 2.5 MG/3 ML* Use 2.5 mg via nebulizer ever* CETIRIZINE 10 MG TABLET Take 10 mg by mouth once sherrie* MOMETASONE 220 MCG/ACTUATION(* Inhale 1 Puff as instructed o* SUMATRIPTAN 50 MG TABLET Take 50 mg by mouth as needed* TRIAMCINOLONE ACETONIDE 55 MC* Use 1 [place] in the nose as ne* GABAPENTIN 800 MG TABLET Take 800 mg by mouth. takes a* PROMETHAZINE 25 MG TABLET Take 1 tablet [...] twice * Problem List As Of Date 03/01/2021 Noted Resolved Inguinal hernia with obstruction, without menti*08/06/2005 03/18/2013 PAIN GROIN (right) [R10.9] 11/23/2005 03/18/2013 Abdominal pain, right lower quadrant [R10.31] 02/10/2006 03/18/2013 Lumbago [M54.5] 03/06/2009 Headache [R51] 03/18/2013 TMJ (temporomandibular joint syndrome) [M26.609]03/18/2013 Intermittent asthma with allergic rhinitis [J45*05/27/2013 Family history of defects [Z82.79] 05/27/2013 10/07/2015 Rubella non-immune status, antepartum [O99.891,*06/20/2013 02/11/2014 Gestational diabetes [O24.419] 10/31/2013 02/11/2014 Supervision of other high-risk (V23.89*11/25/2013 02/11/2014 Type 2 diabetes mellitus without complication (*11/16/2016 Anxiety [F41.9] 11/16/2016 Bipolar affective disorder (HCC) [F31.9] 10/01/2018 Support system deficit [Z65.8] 10/11/2018 History of loss in prior , c*10/11/2018 10/29/2018 History of bipolar disorder [Z86.59] 10/11/2018 History of stroke [Z86.73] 10/11/2018 History of gestational diabetes in prior pregna*10/11/2018 10/29/2018 History of macrosomia in in prior pregna*10/11/2018 10/29/2018 History of shoulder dystocia with result of fra*10/11/2018 10/29/2018 History of hemorrhage, currently pre*10/11/2018 10/29/2018 Patient request for diagnostic testing [Z01.89] 10/11/2018 Br (more content not included)...[facility]05-03-2021 NoteHNO ID: [id number] Author: Rukhsana Dyson MA Service: ? Author Type: ? Type: Progress Notes Filed: 03/01/2021 11:04 AM Note Text: POPULATION HEALTH NAVIGATION OUTREACH Action/FYI This is the office's second attempt on scheduling pt for Care Gap Outreach as requested by PCP for DM f/u. Pt was originally scheduled on 02/17 as requested by her and she has cancelled and no showed her two appt w/no f/u scheduled. Pt has been sent a 3TIER message notifying her that she needs to schedule a follow up visit with PCP or another Provider and complete labs. Contact made with patient or family member? YES Pt identified by name and : YES Outreach Outcome/Action Echo[employer]elt message sent Reason for Outreach Care Gap or Scheduling/Wellness visits Payer: Payor: LIMITED BENEFITS PLAN / Plan: [employer] / Product Type: Other / Care Gap Reviewed:: Follow-up appointment HBA1C Reminder: Reminder note to check Health Maintenance for items below Health Maintenance items due: DIABETIC FOOT EXAM Never done ONE PNEUMOVAX PRIOR TO AGE 63 Never done SPIROMETRY Never done DILATED RETINAL EXAM due on 02/03/2018 HBA1C due on 12/06/2018 URINE ALBUMIN:CREATININE RATIO due on 06/05/2019 LDL CHOLESTEROL due on 06/05/2019 DEPRESSION SCREENING due on 01/23/2020 Referrals: N/A Message Sent to Practice: NA Navigation Signature: Rukhsana Dyson MA March 01, 2021 10:56 [facility]03-18-2021 NoteHNO ID: [id number] Author: Fabiana Milton Ma Service: ? Author Type: ? Type: Progress Notes Filed: 01/14/2021 1:05 PM Note Text: POPULATION HEALTH NAVIGATION OUTREACH Action/ Diabetes management. Spoke with pt, scheduled her for a virtual visit per her request on 02/17/21 at 7 PM. Pt notified she will need to get blood work done prior to this appointment. Contact made with patient or family member? YES Pt identified by name and : YES Outreach Outcome/Action Spoke to patient or caregiver: Patient scheduled in Primary Care Reason for Outreach Care Gap or Scheduling/Wellness visits Payer: Payor: LIMITED BENEFITS PLAN / Plan: [employer] / Product Type: Other / Care Gap Reviewed:: HBA1C Reminder: Reminder note to check Health Maintenance for items below Health Maintenance items due: DIABETIC FOOT EXAM Completed ONE PNEUMOVAX PRIOR TO AGE 65 Completed SPIROMETRY Completed DILATED RETINAL EXAM due on 02/03/2018 HBA1C due on 12/06/2018 URINE ALBUMIN:CREATININE RATIO due on 06/05/2019 LDL CHOLESTEROL due on 06/05/2019 DEPRESSION SCREENING due on 01/23/2020 INFLUENZA(1) due on 06/30/2020 Message Sent to Practice: NO Navigation Signature: Fabiana Milton Ma January 14, 2021 1:04 [facility]03-18-2021 NotePatient Outreach (FAMPWS) BERNADETTE FAUST ([id number]) 1995 F [facility] Date Time Provider Department 01/14/21 FABIANA MILTON (JEAN) KRISTIEWS During your visit today, we recorded the following information about you: Fabiana Milton Ma 01/14/2021 1:05 PM Signed POPULATION HEALTH NAVIGATION OUTREACH Action/FYI Diabetes management. Spoke with pt, scheduled her for a virtual visit per her request on 02/17/21 at 7 PM. Pt notified she will need to get blood work done prior to this appointment. Contact made with patient or family member? YES Pt identified by name and : YES Outreach Outcome/Action Spoke to patient or caregiver: Patient scheduled in Primary Care Reason for Outreach Care Gap or Scheduling/Wellness visits Payer: Payor: LIMITED BENEFITS PLAN / Plan: [employer] / Product Type: Other / Care Gap Reviewed:: HBA1C Reminder: Reminder note to check Health Maintenance for items below Health Maintenance items due: DIABETIC FOOT EXAM Completed ONE PNEUMOVAX PRIOR TO AGE 63 Completed SPIROMETRY Completed DILATED RETINAL EXAM due on 02/03/2018 HBA1C due on 12/06/2018 URINE ALBUMIN:CREATININE RATIO due on 06/05/2019 LDL CHOLESTEROL due on 06/05/2019 DEPRESSION SCREENING due on 01/23/2020 INFLUENZA(1) due on 06/30/2020 Message Sent to Practice: NO Navigation Signature: Fabiana Milton Ma January 14, 2021 1:04 PM Allergies As of Date: 01/14/2021 Noted Allergy Reaction BOTOX (ONABOTULINUMTOXINA) 10/06/2020 14 - Other: See Comments Comments: Face tingling and skin itching. LATEX 06/05/2018 16 - Unknown TAPE [Other] 11/23/2005 2 - Rash VERAPAMIL 06/05/2018 10 - Anaphylaxis Date Reviewed: 10/06/2020 Reviewed by: Hang Morales - Fully Assessed Reason for Visit: Appointment [186] Cmt: DM care gap/outreach Prescriptions as of 01/14/2021 Sig: PREDNISONE 20 MG TABLET 3 tabs a day by mouth for the* RANITIDINE 150 MG TABLET Take 1 tablet by mouth twice * ONDANSETRON 4 MG DISINTEGRATI* Take 1 tablet by mouth every * ASPIRIN 81 MG TABLET,DELAYED * Take 81 mg by mouth once sherrie* CYCLOBENZAPRINE 10 MG TABLET Take 1 tablet by mouth twice * BLOOD-GLUCOSE METER 1 Package four times daily. C* PYRIDOXINE (VITAMIN B6) 25 MG* Take 1 tablet by mouth daily * BUPROPION HCL SR 150 MG TABLE* Take 1 tablet by mouth twice * DEXTROAMPHETAMINE-AMPHETAMINE* Take 1 capsule by mouth once * LAMOTRIGINE 100 MG TABLET Take 1 tablet by mouth once d* ACETAMINOPHEN 500 MG TABLET Take 500 mg by mouth every 8 * [id number]* Take 1 tablet by mouth every * ALBUTEROL SULFATE 2.5 MG/3 ML* Use 2.5 mg via nebulizer ever* CETIRIZINE 10 MG TABLET Take 10 mg by mouth once sherrie* MOMETASONE 220 MCG/ACTUATION(* Inhale 1 Puff as instructed o* SUMATRIPTAN 50 MG TABLET Take 50 mg by mouth as needed* TRIAMCINOLONE ACETONIDE 55 MC* Use 1 [place] in the nose as ne* GABAPENTIN 800 MG TABLET Take 800 mg by mouth. takes a* PROMETHAZINE 25 MG TABLET Take 1 tablet [...] twice * Problem List As Of Date 01/14/2021 Noted Resolved Inguinal hernia with obstruction, without menti*08/06/2005 03/18/2013 PAIN GROIN (right) [R10.9] 11/23/2005 03/18/2013 Abdominal pain, right lower quadrant [R10.31] 02/10/2006 03/18/2013 Lumbago [M54.5] 03/06/2009 Headache [R51] 03/18/2013 TMJ (temporomandibular joint syndrome) [M26.609]03/18/2013 Intermittent asthma with allergic rhinitis [J45*05/27/2013 More... Family history of defects [Z82.79] 05/27/2013 10/07/2015 More... More... Rubella non-immune status, antepartum [O99.891,*06/20/2013 02/11/2014 More... Gestational diabetes [O24.419] 10/31/2013 02/11/2014 More... Supervision of other high-risk (V23.89*11/25/2013 02/11/2014 More... Type 2 diabetes mellitus without complication (*11/16/2016 More... Anxiety [F41.9] 11/16/2016 Bipolar affective disorder (HCC) [F31.9] 10/01/2018 Support system deficit [Z65.8] 10/11/2018 More... History of loss in prior , c*10/11/2018 10/29/2018 More... History of bipolar disorder [Z86.59] 10/11/2018 More... History of stroke [Z86.73] 10/11/2018 More... History of gestational diabetes in prior pregna*10/11/2018 10/29/2018 More... History of macrosomia in in prior pregna*10/11/2018 10/29/2018 More... History of shoulder dystocia with result of fra*10/11/2018 10/29/2018 More... History of hemorrhage, currently pre*10/11/2018 10/29/2018 More... Patient request for diagnostic testing [Z01.89] 10/11/2018 M (more content not included)...[facility]03-12-2021 NotePatient Outreach (COVAMN) BERNADETTE FAUST ([id number]) 1995 [facility] Date Time Provider Department 01/08/21 SHADY PAYNE During your visit today, we recorded the following information about you: Allergies As of Date: 01/08/2021 Noted Allergy Reaction BOTOX (ONABOTULINUMTOXINA) 10/06/2020 14 - Other: See Comments Comments: Face tingling and skin itching. LATEX 06/05/2018 16 - Unknown TAPE [Other] 11/23/2005 2 - Rash VERAPAMIL 06/05/2018 10 - Anaphylaxis Date Reviewed: 10/06/2020 Reviewed by: Hang Morales - Fully Assessed Order(s):SARS-COVID VACCINE 1ST DOSE APPT [[id number]] Order #: [id number] FUTURE Prescriptions as of 01/08/2021 Sig: PREDNISONE 20 MG TABLET 3 tabs a day by mouth for the* RANITIDINE 150 MG TABLET Take 1 tablet by mouth twice * ONDANSETRON 4 MG DISINTEGRATI* Take 1 tablet by mouth every * ASPIRIN 81 MG TABLET,DELAYED * Take 81 mg by mouth once sherrie* CYCLOBENZAPRINE 10 MG TABLET Take 1 tablet by mouth twice * BLOOD-GLUCOSE METER 1 Package four times daily. C* PYRIDOXINE (VITAMIN B6) 25 MG* Take 1 tablet by mouth daily * BUPROPION HCL SR 150 MG TABLE* Take 1 tablet by mouth twice * LAMOTRIGINE 100 MG TABLET Take 1 tablet by mouth once d* ACETAMINOPHEN 500 MG TABLET Take 500 mg by mouth every 8 * FEELXABXIZ-QAMSGYUNPILOB-COEV* Take 1 tablet by mouth every * ALBUTEROL SULFATE 2.5 MG/3 ML* Use 2.5 mg via nebulizer ever* CETIRIZINE 10 MG TABLET Take 10 mg by mouth once sherrie* MOMETASONE 220 MCG/ACTUATION(* Inhale 1 Puff as instructed o* SUMATRIPTAN 50 MG TABLET Take 50 mg by mouth as needed* TRIAMCINOLONE ACETONIDE 55 MC* Use 1 [place] in the nose as ne* GABAPENTIN 800 MG TABLET Take 800 mg by mouth. takes a* PROMETHAZINE 25 MG TABLET Take 1 tablet [...] twice * Problem List As Of Date 01/08/2021 Noted Resolved Inguinal hernia with obstruction, without menti*08/06/2005 03/18/2013 PAIN GROIN (right) [R10.9] 11/23/2005 03/18/2013 Abdominal pain, right lower quadrant [R10.31] 02/10/2006 03/18/2013 Lumbago [M54.5] 03/06/2009 Headache [R51] 03/18/2013 TMJ (temporomandibular joint syndrome) [M26.609]03/18/2013 Intermittent asthma with allergic rhinitis [J45*05/27/2013 More... Family history of defects [Z82.79] 05/27/2013 10/07/2015 More... More... Rubella non-immune status, antepartum [O99.891,*06/20/2013 02/11/2014 More... Gestational diabetes [O24.419] 10/31/2013 02/11/2014 More... Supervision of other high-risk (V23.89*11/25/2013 02/11/2014 More... Type 2 diabetes mellitus without complication (*11/16/2016 More... Anxiety [F41.9] 11/16/2016 Bipolar affective disorder (HCC) [F31.9] 10/01/2018 Support system deficit [Z65.8] 10/11/2018 More... History of loss in prior , c*10/11/2018 10/29/2018 More... History of bipolar disorder [Z86.59] 10/11/2018 More... History of stroke [Z86.73] 10/11/2018 More... History of gestational diabetes in prior pregna*10/11/2018 10/29/2018 More... History of macrosomia in infant in prior pregna*10/11/2018 10/29/2018 More... History of shoulder dystocia with result of fra*10/11/2018 10/29/2018 More... History of hemorrhage, currently pre*10/11/2018 10/29/2018 More... Patient request for diagnostic testing [Z01.89] 10/11/2018 More... Breast pain, left [N64.4] 10/15/2018 More... Positive BARTOLO (antinuclear antibody) [R76.8] 10/15/2018 More... Supervision of high risk in first tri*10/15/2018 10/29/2018 More... Encounter Status:Closed by PATRICK, PRODUSER on 01/11/21[facility] Evaluation note* Diagnosis Onset Date Resolution Status Dysmenorrhea acute Vaginal discharge acute [facility] Work Phone: Evaluation note* Diagnosis Intraperitoneal abscess (HCC)- Primary Peritoneal abscess Pre-eclampsia, antepartum (HCC) Mild or unspecified pre-eclampsia, antepartum Postprocedural intraabdominal abscess (HCC) Positive urine drug screen Type 2 diabetes mellitus without complication, without long-term current use of insulin (HCC) Pre-eclampsia, antepartum (HCC) Mild or unspecified pre-eclampsia, antepartum [facility] Diagnosis H/O drainage of abscess- Primary Enterocutaneous fistula Fistula of intestine, excluding rectum and anus [facility]* Diagnosis Postprocedural intraabdominal abscess (HCC)- Primary [facility]* Diagnosis Postprocedural intraabdominal abscess (HCC)- Primary [facility] Author Elaine Jones [facility] Note Date/Time June 13, 2025 10 :54am [facility] [address] [place] [address], [address] [place] [address] OFFICE VISIT Date of Service: 06/13/25 MR#: [id number] Acct: [id number] Name: BERNADETTE FAUST Rep #: [id number] : 1995 Provider: Dr. 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 Is patient in pain?: No Allergies onabotulinumtoxinA (From Botox) Allergy (Intermediate, Verified 06/13/25 10:25) Itching adhesive tape (tape) Allergy (Verified 06/13/25 10:25) Rash Latex, Natural Rubber Allergy (Verified 06/13/25 10:25) Other verapamil Allergy (Verified 06/13/25 10:25) Anaphylaxis Medications ?Medication ?Instructions ?Recorded ?Confirmed ?Type alprazolam 0.5 mg tablet 1 mg PO TID 04/16/17 5 History alprazolam 2 mg tablet 2 mg PO QHS 12/20/18 5 History dextroamphetamine-amphetamine ER 20 mg PO BID 02/10/22 06/13/25 History 20 mg 24hr capsule,extend release fremanezumab-vfrm 225 mg/1.5 mL 675 mg subcut [id number] 02/10/22 06/13/25 History subcutaneous auto-injector (Ajovy) labetalol 200 mg tablet 200 mg PO BID 30 days #60 ta bs 11/09/24 06/13/25 Rx nifedipine 30 mg tablet,extended 30 mg PO BID #60 tabs 11/09/24 06/13/25 Rx release 24 hr (Procardia XL) blood-glucose sensor (Dexcom G7 #12 ea 03/07/25 Rx Sensor device) lamotrigine 25 mg tablet (Lamictal) 25 mg PO DAILY 07/2406/13/25 History metformin 500 mg tablet,extended 1,000 mg PO BID 03/0706/13/25 History release 24 hr ferrous sulfate 325 mg (65 mg 325 mg PO QDAY #90 tabs 03/08/25 06/13/25 Rx iron) tablet,delayed release epinephrine 0.3 mg/0.3 mL 0.3 mg (0.3 mL) IM ONCE #2 e a 03/28/25 06/13/25 Rx injection, auto-injector (EpiPen 2-Heber) copper 380 square mm intrauterine 1 device intrauterin e ONCE 03/31/25 06/13/25 History device (ParaGard T 380A) insulin glargine 100 unit/mL (3 16 unit subcut QPM 12/2406/13/25 History mL) subcutaneous pen (Basaglar KwikPen U-100 Insulin) insulin lispro 100 unit/mL 4 unit subcut TID 03/31/25 06/13/25 History subcutaneous pen albuterol sulfate 90 mcg/actuation 1 - 2 puff inhalati on Q4H PRN PRN 04/08/25 06/13/25 Rx aerosol inhaler (Ventolin HFA) Wheezing #8.5 grams Lactobac no.2-Bifidobac no.1-S. 2 cap PO BID 30 days # 120 caps 04/23/25 06/13/25 Rx thermo 112.5 billion cell capsule (VSL#3) blood-glucose,principal systems engineer,cont #1 ea 05/05/25 06/13/25 Rx (Dexcom G7 Blind Cleaner) buspirone 5 mg tablet 5 mg PO BID 06/13/25 5 History Is last menstrual period known: Yes Last Menstrual Period: 05/26/25 Post menopausal: No Patient : No : No Control Method: Paragard [facility] Medical History Breast cancer ADD (attention deficit disorder) Multiple sclerosis Asthma Stroke Migraines Surgical History H/O knee surgery H/O dilation and curettage History of appendectomy History of lumpectomy History of tonsillectomy and adenoidectomy Family History Father Heart disease Social History number of children: 2 current occupational status: employed 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 she is struggling with heavy bleeding every two weeks lasting two weeks, heavy. she said she passes large clots. she is wanting sterilization. BS are getting better controlled. she is not a candidate for any other hormonal therapies. she is having severe cramping. she is using a continuous glucose monitor. Female Reproductive History Last Menstrual Period: 05/26/25 Menopausal Symptoms: No night sweats History 3 Elective abortions Hx Para 2 Spontaneous abortions 1 Hx # Term Pregnancies 1 Ectopic pregnancies Hx # Pregnancies 1 Multiple births # of living children 2 Past Pregnancies Del. Date Name GA/Weeks Outcome Route Bth Weight Infant Gen Labor Lgth Anesthesia Del Locatn Provider FOB 12/31/13 Chao 36 live - full term 11 lbs Female 21 nancy rs epidural [facility] doctors 11/06/24 Osei 34 live - ge neral [facility] SM Delivery Date: 12/31/13 Last Updated by: Elaine Jones MD shoulder dystocia clavicle fracture Delivery Date: 11/06/24 Last Updated by: Hilary London RN abruption 34 weeks preeclampsia no care hiv prelim positive. LTCSSM ROS Const Constitutional: Denies fatigue, night sweats, weight gain or weight loss ENT ENT: Reports system reviewed and no additional complaints, except as documented Cardio Card: Denies chest pain Resp Resp: Denies cough or dyspnea GI GI: Reports as per HPI; Denies abdominal pain, constipation, nausea or vomiting : Denies nipple discharge, urinary frequency, urinary incontinence, urinary hesitancy, urinary urgency, vaginal discharge, vaginal dryness, vaginal odor or vaginal pruritus Musc Musc: Denies arthralgias, back pain or muscle weakness Skin Skin/Breast: Denies alopecia, change in hair, dry skin, breast mass, breast pain, breast skin changes or nipple discharge Neuro Neuro: Reports system reviewed and no additional complaints, except as documented Psych Psych: Reports system reviewed and no additional complaints, except as documented Endo Endo: Denies cold intolerance, excessive sweating, heat intolerance or polydipsia George/Lymph Hematologic/Lymphatic: Denies easy bleeding, Denies easy bruising and Denies lymphadenopathy Exam Const General: cooperative, healthy appearing, comfortable and no acute distress Orientation: alert [facility] Head: normal to inspection and normocephalic Ears: hearing grossly normal bilaterally and external ears normal Nose: external nose normal and nares normal Face and sinus: normal facial exam Neck Neck: normal visual inspection and no lymphadenopathy Thyroid: thyroid normal Chest Chest palpation & inspection: normal inspection of the chest Resp Effort & Inspection: normal respiratory effort Auscultation: clear to auscultation bilaterally Cardio Rate: regular rate Rhythm: regular rhythm Heart Sounds: S1 normal and S2 normal GI Inspection: normal to inspection and non-distended Palpation: soft and no hepatosplenomegaly Musc Other: gross motor intact no deficits, full bilateral strength Skin General: no rashes or lesions noted Neuro General: patient alert, patient awake, moves all extremities and no focal motor deficits Motor: muscle tone normal throughout Extrem General: normal to inspection and no pedal edema Psych Appearance: grossly normal Mental Status: mental status grossly normal Affect: normal affect Speech and Movement: speech and movement normal Coding Level of Care Code Off vis,est,level 4 Diagnoses Breakthrough bleeding with IUD N92.1; Z97.5 Sterilization Z30.2 Assessment and Plan Assessment and Plan (1) Breakthrough bleeding with IUD: Status: Acute Comment: plan IUD removal at time of sterilization. (2) Sterilization: Status: Acute Orders: Orders CBC W/Diff, Automated Today D64.9 - Anemia, unspecified Thyroid Stim Hormone (TSH) Today D64.9 - Anemia, unspecified Plan title 19 signed After discussing the patient's diagnosis and treatment plan options, patient wishes to proceed with surgical management. I have discussed with the patient the risks, benefits, and alternatives of the procedure which include but are notlimited to risks of anesthesia, bleeding, infection, possible damage to bowel, bladder, or surrounding vasculature which could lead to additional surgery to evaluate any complications. Patient agrees to procedure and wishes to proceed. ACOG/uptodate references given for additional information regarding procedure. 06/13/25 1054 <Electronically signed by Elaine streeter MD> Date _ Elaine Tapia Signature: Date (if applicable) CC: ~ [facility] Work Phone: Summary Purpose Family History No Family History Records Found Relationship Condition Age at Onset Recorded Date/T jaskaran father Cardiac disease Unknown Advance Directives No Advanced Directives Records Found Advance Directive Response Recorded Date/ Time Advance Directives No November 23, 2016 1:23pm Living Will No December 20, 2 019 5:03pm Power of Metrology Technician No December 20, 2018 5:03pm Date Activated Date Inactivated Comments 11/15/2024 12:28 AM 11/19/2024 8:51 PM Question Answer Comments Documentation of decision pr ocess for this code status: Discussed with patient or surrogate. This is the code status chosen by the patient/surrogate. Advance Directive Response Recorded Date/ Time Do you have a Healthcare Power of Metrology Technician? 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) Reason for Visit Dysmenorrhea Vaginal discharge Chief Complaint Admit Date Tubal Ligation Consult February 25, 2025 8:33am NO E ORDERS YET February 25, 2025 9:4 0am VAGINAL BLEEDING February 28, 2025 3:18pm ACUTE - FU ON LABS FROM [facility] March 07 8:32am 3 WK FU March 28, 2025 8:18a m Reason for Visit Admit Date Encounter for IUD insertion February 25, 2025 8:33am Anemia March 07, 2025 8:32am Diabetes March 07, 2025 8:32am Multiple sclerosis March 07, 2025 8:32am Generalized anxiety disorder March 07 8:32am Chief Complaint Admit Date Tubal Ligation Consult February 25, 2025 8:33am NO E ORDERS YET February 25, 2025 9:4 0am VAGINAL BLEEDING February 28, 2025 3:18pm ACUTE - FU ON LABS FROM [facility] March 07 8:32am 3 WK FU March 28, 2025 8:18a m Colposcopy March 31, 2025 12:45 pm Reason for Visit Admit Date Encounter for IUD insertion February 25, 2025 8:33am Anemia March 07, 2025 8:32am Diabetes March 07, 2025 8:32am Multiple sclerosis March 07, 2025 8:32am Generalized anxiety disorder March 07 8:32am Diabetes March 28, 2025 8:18a m Bloating March 31, 2025 12:45 pm Chief Complaint Admit Date Tubal Ligation Consult February 25, 2025 8:33am NO E ORDERS YET February 25, 2025 9:4 0am VAGINAL BLEEDING February 28, 2025 3:18pm ACUTE - FU ON LABS FROM [facility] March 07 8:32am 3 WK FU March 28, 2025 8:18a m Colposcopy March 31, 2025 12:45 pm PERFORATED BOWEL /CSECTION STILL BLOATIN G April 23, 2025 9:23am Reason for Visit Admit Date Encounter for IUD insertion February 25, 2025 8:33am Anemia March 07, 2025 8:32am Diabetes March 07, 2025 8:32am Multiple sclerosis March 07, 2025 8:32am Generalized anxiety disorder March 07 8:32am Diabetes March 28, 2025 8:18a m ASCUS with positive high risk HPV March [id number] 12:45pm Bloating March 31, 2025 12:45 pm Bloating April 23, 2025 9:23 am Diarrhea April 23, 2025 9:23 am Chief Complaint Admit Date Tubal Ligation Consult February 25, 2025 8:33am NO E ORDERS YET February 25, 2025 9:4 0am VAGINAL BLEEDING February 28, 2025 3:18pm ACUTE - FU ON LABS FROM [facility] March 07 8:32am 3 WK FU March 28, 2025 8:18a m Colposcopy March 31, 2025 12:45 pm PERFORATED BOWEL /CSECTION STILL BLOATIN G April 23, 2025 9:23am INT ORDER April 24, 2025 11:0 9am Chief Complaint Admit Date Tubal Ligation Consult February 25, 2025 8:33am NO E ORDERS YET February 25, 2025 9:4 0am VAGINAL BLEEDING February 28, 2025 3:18pm ACUTE - FU ON LABS FROM [facility] March 07 8:32am 3 WK FU March 28, 2025 8:18a m Colposcopy March 31, 2025 12:45 pm PERFORATED BOWEL /CSECTION STILL BLOATIN G April 23, 2025 9:23am INT ORDER April 24, 2025 11:0 9am ABD PAIN, ADD SPLEEN May 09, 2025 10: 03am Chief Complaint Admit Date Tubal Ligation Consult February 25, 2025 8:33am NO E ORDERS YET February 25, 2025 9:4 0am VAGINAL BLEEDING February 28, 2025 3:18pm ACUTE - FU ON LABS FROM [facility] March 07 8:32am 3 WK FU March 28, 2025 8:18a m Colposcopy March 31, 2025 12:45 pm PERFORATED BOWEL /CSECTION STILL BLOATIN G April 23, 2025 9:23am INT ORDER April 24, 2025 11:0 9am ABD PAIN, ADD SPLEEN May 09, 2025 10: 03am 2 M FU June 13, 2025 10 :17am Reason for Visit Admit Date Encounter for IUD insertion February 25, 2025 8:33am Anemia March 07, 2025 8:32am Diabetes March 07, 2025 8:32am Multiple sclerosis March 07, 2025 8:32am Generalized anxiety disorder March 07 8:32am Diabetes March 28, 2025 8:18a m ASCUS with positive high risk HPV March [id number] 12:45pm Bloating March 31, 2025 12:45 pm Bloating April 23, 2025 9:23 am Diarrhea April 23, 2025 9:23 am Breakthrough bleeding with IUD June 132024 10:17am Sterilization June 13, 2025 10 :17am Chief Complaint Admit Date Tubal Ligation Consult February 25, 2025 8:33am NO E ORDERS YET February 25, 2025 9:4 0am VAGINAL BLEEDING February 28, 2025 3:18pm ACUTE - FU ON LABS FROM [facility] March 07 8:32am 3 WK FU March 28, 2025 8:18a m Colposcopy March 31, 2025 12:45 pm PERFORATED BOWEL /CSECTION STILL BLOATIN G April 23, 2025 9:23am INT ORDER April 24, 2025 11:0 9am ABD PAIN, ADD SPLEEN May 09, 2025 10: 03am 2 M FU June 13, 2025 10 :17am 3 M FU June 20, 2025 8: 29am Additional Source Comments INFORMATION SOURCE (unrecogn ized section and content) DATE CREATED AUTHOR [facility] DATE CREATED AUTHOR AUTHOR'S ORGANIZ ATION 10/09/2018 [facility] DATE CREATED AUTHOR AUTHOR'S ORGANIZ ATION 01/28/2019 [facility] DATE CREATED AUTHOR AUTHOR'S ORGANIZ ATION 05/20/2019 [facility] DATE CREATED AUTHOR AUTHOR'S ORGANIZ ATION 11/21/2021 [facility] DATE CREATED AUTHOR AUTHOR'S ORGANIZ ATION 12/27/2024 [facility] DATE CREATED AUTHOR AUTHOR'S ORGANIZ ATION 07/11/2025 [facility] Goals (unrecognized section and content) Goals may be documented in a n alternate sectionGoals may be documented in an alternate sectionGoals may be documented in an alternate sectionGoals may be documented in an alternate sectionGoals may be documented in an alternate sectionGoals may be documented in an alternate sectionGoals may be documented in an alternate sectionGoals may be documented in an alternate sectionGoals may be documented in an alternate sectionGoals may be documented in an alternate section Source Comments (unrecognize d section and content) In the event this informatio n is protected by the Federal Confidentiality of Alcohol and Drug Abuse Patient Records regulations: The Federal rules restrict any use of the information to criminally investigate or prosecute any alcohol or drug abuse patient.[facility] ClinicIn the event this information is protected by the Federal Confidentiality of Alcohol and Drug Abuse Patient Records regulations: The Federal rules restrict any use of the information to criminally investigate or prosecute any alcohol or drug abuse patient.[facility] Reason for Visit (unrecogniz ed section and content) Reason Comments Appointment Reason Onset Date Comments PHMA/Care Gap Outreach 05/07/2024 Reason Comments Refill Reason Comments Abdominal pain Post c/s 11/06/23 - ri ght upper side per pt an abdominal cyst Specialty Diagnoses / Procedures Referred By Contac t Referred [place] [address] [place] [address] Phone: tel: fax: [facility] [employer] [facility] [place] [place] [address] Phone: tel: Referral ID Status Reason Start Date Expiration Date Visits Re quested Visits Authorized [id number] 3 Reason Comments Care Coordination Reason Comments Abdominal pain Concern for perf bow l d/t drain output Reason Onset Date Comments DME wound care. 12/05/2024 Care Teams (unrecognized sec tion and content) Automation Engineer Relationship Specialty Start Date End Date Becky Sotelo MD [address] [place] [address] PCP - General Family Medicine 11/16/16 Automation Engineer Relationship Specialty Start Date End Date Becky Sotelo MD [address] [place] [address] PCP - General Family Medicine 11/16/16 Automation Engineer Relationship Specialty Start Date End Date Nedra Hurtado MD [address] [place], [place] [id number] Physician Trauma Surgery 11/30/24 Automation Engineer Relationship Specialty Start Date End Date Nedra Hurtado MD [address] [place] [address] [place] [address] Physician Trauma Surgery 11/30/24 Team Status: Active Member Role Status Dates Dr. Radha Pascual MD Primary Care Provider Active Team Status: Inactive Member Role Status Dates Dr. Becky Sotelo MD Primary Care Provider Active Start: February 25, 2025 End: February 25, 2025 Dr. Becky Sotelo MD Referring Provider Active Start: February 25, 2025 End: February 25, 2025 Dr. Elaine Jones MD Attending Provider Active Start: February 25, 2025 End: February 25, 2025 Team Status: Inactive Member Role Status Dates Dr. Becky Sotelo MD Primary Care Provider Active Start: February 25, 2025 End: February 25, 2025 Dr. Elaine Jones MD Attending Provider Active Start: February 25, 2025 End: February 25, 2025 Dr. Elaine Jones MD Referring Provider Active Start: February 25, 2025 End: February 25, 2025 Team Status: Inactive Member Role Status Dates Dr. Jorge Samuels DO Attending Provider Active Start: February 28, 2025 End: February 28, 2025 Dr. Jorge Samuels DO Emergency Provider Active Start: February 28, 2025 End: February 28, 2025 Dr. Radha Pascual MD Primary Care Provider Active Start: February 28, 2025 End: February 28, 2025 Team Status: Inactive Member Role Status Dates Dr. Becky Sotelo MD Referring Provider Active Start: March 07, 2025 End: March 07, 2025 Humberto ENGLAND PA Attending Provider Active St art: March 07, 2025 End: March 07, 2025 Dr. Radha Pascual MD Primary Care Provider Active Start: March 07, 2025 End: March 07, 2025 Team Status: Inactive Member Role Status Dates Dr. Radha Pascual MD Primary Care Provider Active Start: March 28, 2025 End: March 28, 2025 Dr. Radha Pascual MD Referring Provider Active Start: March 28, 2025 End: March 28, 2025 TOMÁS Parks Attending Provider Active St art: March 28, 2025 End: March 28, 2025 Team Status: Inactive Member Role Status Dates Dr. Becky Sotelo MD Referring Provider Active Start: March 31, 2025 End: March 31, 2025 Dr. Elaine Jones MD Attending Provider Active Start: March 31, 2025 End: March 31, 2025 Dr. Radha Pascual MD Primary Care Provider Active Start: March 31, 2025 End: March 31, 2025 Team Status: Inactive Member Role Status Dates Dr. Radha Pascual MD Primary Care Provider Active Start: April 23, 2025 End: April 23, 2025 Dr. Radha Pascual MD Referring Provider Active Start: April 23, 2025 End: April 23, 2025 aL Basurto NP-C Attending Provider Active Start: April 23, 2025 End: April 23, 2025 Automation Engineer Relationship Specialty Start Date End Date Nedra Hurtado MD [address] [place] [address] [place] [address] Physician Trauma Surgery 11/30/24 Team Status: Active Member Role/Relationship Status Dates Dr. Radha Pascual MD Primary Care Provider Active Team Status: Inactive Member Role/Relationship Status Dates Dr. Becky Sotelo MD Primary Care Provider Active Start: February 25, 2025 End: February 25, 2025 Dr. Becky Sotelo MD Referring Provider Active Start: February 25, 2025 End: February 25, 2025 Dr. Elaine Jones MD Attending Provider Active Start: February 25, 2025 End: February 25, 2025 Team Status: Inactive Member Role/Relationship Status Dates Dr. Becky Sotelo MD Primary Care Provider Active Start: February 25, 2025 End: February 25, 2025 Dr. Elaine Jones MD Attending Provider Active Start: February 25, 2025 End: February 25, 2025 Dr. Elaine Jones MD Referring Provider Active Start: February 25, 2025 End: February 25, 2025 Team Status: Inactive Member Role/Relationship Status Dates Dr. Jorge Samuels DO Attending Provider Active Start: February 28, 2025 End: February 28, 2025 Dr. Jorge Samuels DO Emergency Provider Active Start: February 28, 2025 End: February 28, 2025 Dr. Radha Pascual MD Primary Care Provider Active Start: February 28, 2025 End: February 28, 2025 Team Status: Inactive Member Role/Relationship Status Dates Dr. Becky Sotelo MD Referring Provider Active Start: March 07, 2025 End: March 07, 2025 Humberto ENGLAND PA Attending Provider Active St art: March 07, 2025 End: March 07, 2025 Dr. Radha Pascual MD Primary Care Provider Active Start: March 07, 2025 End: March 07, 2025 Team Status: Inactive Member Role/Relationship Status Dates Dr. Radha Pascual MD Primary Care Provider Active Start: March 28, 2025 End: March 28, 2025 Dr. Radha Pascual MD Referring Provider Active Start: March 28, 2025 End: March 28, 2025 Humberto ENGLAND PA Attending Provider Active St art: March 28, 2025 End: March 28, 2025 Team Status: Inactive Member Role/Relationship Status Dates Dr. Becky Sotelo MD Referring Provider Active Start: March 31, 2025 End: March 31, 2025 Dr. Elaine Jones MD Attending Provider Active Start: March 31, 2025 End: March 31, 2025 Dr. Radha Pascual MD Primary Care Provider Active Start: March 31, 2025 End: March 31, 2025 Team Status: Inactive Member Role/Relationship Status Dates Dr. Radha Pascual MD Primary Care Provider Active Start: April 23, 2025 End: April 23, 2025 Dr. Radha Pascual MD Referring Provider Active Start: April 23, 2025 End: April 23, 2025 TAYLER Samuel Attending Provider Active Start: April 23, 2025 End: April 23, 2025 Team Status: Inactive Member Role/Relationship Status Dates Dr. Radha Pascual MD Primary Care Provider Active Start: April 24, 2025 End: April 24, 2025 TAYLER Samuel Attending Provider Active Start: April 24, 2025 End: April 24, 2025 TAYLER Samuel Referring Provider Active Start: April 24, 2025 End: April 24, 2025 Automation Engineer Relationship Specialty Start Date End Date Nedra Hurtado MD [address] [place] [address] Physician Trauma Surgery 11/30/24 Automation Engineer Relationship Specialty Start Date End Date Nedra Hurtado MD [address] [place] [address] Physician Trauma Surgery 11/30/24 Team Status: Inactive Member Role/Relationship Status Dates Dr. Radha Pascual MD Primary Care Provider Active Start: May 09, 2025 End: May 09, 2025 TAYLER Samuel Attending Provider Active Start: May 09, 2025 End: May 09, 2025 TAYLER Samuel Referring Provider Active Start: May 09, 2025 End: May 09, 2025 Team Status: Inactive Member Role/Relationship Status Dates Dr. Radha Pascual MD Primary Care Provider Active Start: May 28, 2025 End: May 28, 2025 Dr. Radha Pascual MD Attending Provider Active Start: May 28, 2025 End: May 28, 2025 Team Status: Inactive Member Role/Relationship Status Dates Dr. Radha Pascual MD Primary Care Provider Active Start: June 13, 2025 End: June 13, 2025 Dr. Radha Pascual MD Referring Provider Active Start: June 13, 2025 End: June 13, 2025 Dr. Elaine Jones MD Attending Provider Active Start: June 13, 2025 End: June 13, 2025 Team Status: Active Member Role/Relationship Status Dates Dr. Radha Pascual MD Primary Care Provider Active Start: June 13, 2025 Dr. Elaine Jones MD Attending Provider Active Start: June 13, 2025 Dr. Elaine Jones MD Referring Provider Active Start: June 13, 2025 Team Status: Inactive Member Role/Relationship Status Dates Dr. Radha Pascual MD Primary Care Provider Active Start: June 13, 2025 End: June 13, 2025 Dr. Elaine Jones MD Attending Provider Active Start: June 13, 2025 End: June 13, 2025 Dr. Elaine Jones MD Referring Provider Active Start: June 13, 2025 End: June 13, 2025 Team Status: Inactive Member Role/Relationship Status Dates Dr. Radha Pascual MD Primary Care Provider Active Start: June 20, 2025 End: June 20, 2025 Dr. Radha Pascual MD Referring Provider Active Start: June 20, 2025 End: June 20, 2025 TOMÁS Parks Attending Provider Active St art: June 20, 2025 End: June 20, 2025 Scheduled Active and Recently Administ ered Medications (unrecognized section and content) Medication Order 11/17/2024 11/18/2024 11/19/2024 acetaminophen (TYLENOL) tablet 1,000 mg, Oral, EVERY 6 HOURS, First dose on Mon11/15/24 at 0330, Until Discontinued 0414 (Given - Provider: La Patel RN)1035 (Given - Provider: Jeff Renteria RN)1644 (Given - Provider: Jeanie Alvarenga, BENTLEY)2205 (Given - Provider: Kalyani Mac RN) 0420 (Given - Provider: Kalyani Mac RN)1020 (Given - Provider: Darling Keith, BENTLEY)1649 (Given - Provider: Darling Keith, RN)2248 (Given - Provider: Bozena Zamora, BENTLEY) 0440 (Given - Provider: Bozena Zamora RN)0952 (Given - Provider: Darling Keith RN)1632 (Given - Provider: Darling Keith, BENTLEY) amoxicillin-clavulanat e (AUGMENTIN) 875-125 MG per tablet 1 Tablet, Oral, 2 TIMES DAILY, 16 doses, First dose on 11/17/24 at 1200, Last dose on 11/24/24 at 2100 1315 (Given - Provider: Jeff Renteria RN)2108 (Given - Provider: Kalyani Mac RN) 100 (Given - Provider: Darling Keith, RN)2099 (Given - Provider: Bozena Zamora, RN) 09 (Given - Provider: Darling Keith, RN) docusate sodium (COLACE) capsule 100 mg, Oral, 2 TIMES DAILY, First dose on 11/16/24 at 1230, Until Discontinued 0932 (Given - Provider: Jeff Renteria RN)210 (Given - Provider: Kalyani Mac RN) 100 (Given - Provider: Darling Keith, RN)2100 (Given - Provider: Bozena Zamora, BENTLEY) 09 (Given - Provider: Darling Keith RN) enoxaparin (LOVENOX) 40 MG/0.4ML injection 40 mg 40 mg, Subcutaneous, DAILY, First dose on 11/16/24 at 0900, Until Discontinued 0933 (Given - Provider: Jeff Renteria RN) 100 (Given - Provider: Darling Keith RN) 09 (Given - Provider: Darling Keith, BENTLEY) ibuprofen (MOTRIN) tablet 600 mg, Oral, EVERY 6 HOURS, First dose on Mon11/15/24 at 0400, Until Discontinued 0414 (Given - Provider: La Patel RN)1016 (Given - Provider: Jeff Renteria RN)1644 (Given - Provider: Jeanie Alvarenga RN)2205 (Given - Provider: Kalyani Mac RN) 0420 (Given - Provider: Kalyani Mac RN)1020 (Given - Provider: Darling Keith, BENTLEY)1650 (Given - Provider: Darling Keith, RN)2248 (Given - Provider: Bozena Zamora, BENTLEY) 0440 (Given - Provider: Bozena Zamora, BENTLEY)0952 (Given - Provider: Darling Keith, BENTLEY)1632 (Given - Provider: Darling Keith, BENTLEY) insulin glargine (LANTUS SOLOSTAR/BASAGLAR KWIKPEN) 100 UNIT/ML PEN injection 14 Units, Subcutaneous, AT BEDTIME, First dose on Mon11/15/24 at 2200, Until Discontinued 220 (Given - Provider: Kalyani Mac RN) 2248 (Given - Provider: Bozena Zamora RN) insulin lispro (HumaLOG) 100 UNIT/ML injection (COMPLETED) 6 Units, Subcutaneous, ONCE, 1 dose, On Mon11/19/24 at 1300 1246 (Given - Provid er: Darling Keith RN) iohexol (OMNIPAQUE) 300 MG/ML injection 50 mL, Oral, Once at Radiology exam, 1 dose, Starting on Mon11/19/24 at 0604, Until Mon11/19/24 at 2051, Imaging Protocol Orders iohexol (OMNIPAQUE) 350 MG/ML injection (COMPLETED) 100 mL, Intravenous Push, Once at Radiology exam, 1 dose, Starting on Mon11/19/24 at 0604, Until Mon11/19/24 at 0604, Imaging Protocol Orders 0604 (Bolus given - Provider: Zain Page) labetalol (NORMODYNE) tablet 200 mg, Oral, 2 TIMES DAILY, First dose on Mon11/15/24 at 0100, Until Discontinued 33 (Given - Provider: Jeff Renteria RN)2108 (Given - Provider: Kalyani Mac RN) 1010 (Given - Provider: Darling Keith RN)2100 (Given - Provider: Bozena Zamora RN) 0920 (Given - Provider: Darling Keith RN) lamoTRIgine (LaMICtal) tablet 25 mg, Oral, DAILY, First dose on Mon11/15/24 at 1630, Until Discontinued 0932 (Given - Provider: Jeff Renteria RN) 1009 (Given - Provider: Darling Keith RN) 0921 (Given - Provider: Darling Keith, RN) lidocaine (LIDODERM) 4 % patch 2 Patch, Transdermal, EVERY 24 HOURS, First dose on Mon11/16/24 at 0900, Until Discontinued 0933 (Patch Applied - Provider: Jeff Renteria RN)2133 (Patch Removal - Provider: Kalyani Mac RN) 1010 (Patch Applied - Provider: Darling Keith RN)2210 (Patch Removal - Provider: Bozena Zamora RN) 0921 (Patch Applied - Provider: Darling Keith RN)1845 (Due: Patch Removal - Provider: System Discharge - Comment: Time automatically adjusted from order being discontinued) measles, mumps and rubella (MMR) chargeable vaccine 0.5 mL, Subcutaneous, VACCINATE ONCE, 1 dose, Starting on Mon11/15/24 at 0303, Until Mon11/19/24 at 2051 metFORMIN (GLUCOPHAGE) tablet 1,000 mg, Oral, 2 TIMES DAILY WITH MEALS, First dose on Mon11/15/24 at 1700, Until Discontinued 0932 (Given - Provider: Jeff Renteria RN)1643 (Given - Provider: Jeanie Alvarenga RN) 1009 (Given - Provider: Darling Keith RN)1650 (Given - Provider: Darling Keith RN) 0921 (Given - Provider: Darling Keith RN)1718 (Given - Provider: Darling Keith RN) NIFEdipine (ADALAT CC) 24 hour tablet (CANCELED) 30 mg, Oral, 2 times daily, First dose (after last modification) on Mon11/15/24 at 0200, Until Discontinued 931 (Given - Provider: Jeff Renteria RN) NIFEdipine (ADALAT CC) 24 hour tablet 30 mg, Oral, EVERY 12 HOURS, First dose (after last modification) on Mon11/17/24 at 2100, Until Discontinued 2107 (Given - Provider: Kalyani Mac RN) 1009 (Given - Provider: Darling Keith RN)2100 (Given - Provider: Bozena Zamora RN) 0921 (Given - Provider: Darling Keith RN) ondansetron (ZOFRAN) 4 MG/2ML injection (CANCELED) 4 mg, Intravenous Push, EVERY 6 HOURS, First dose on Mon11/15/24 at 0100, Until Discontinued 0300 (Hold/Not Given - Provider: La Patel RN - Reason: Patient refused)0933 (Given - Provider: Jeff Renteria RN)1526 (Given - Provider: Jeff Renteria RN)210 (Given - Provider: Kalyani Mac RN) 0258 (Given - Provider: Gisela Collado, RN)1009 (Given - Provider: Darling Keith, RN)1512 (Given - Provider: Darling Keith, RN)2100 (Given - Provider: Bozena Zamora RN) 0304 (Given - Provider: Gisela Collado RN)0900 (Due - Provider: Ozzy Luna, NatalioD) piperacillin-tazobacta m in D5W (ZOSYN) 3,375 mg in dextrose 50 mL ivpb (CANCELED) 3,375 mg (3.375 g), Intravenous, EVERY 6 HOURS ANTIBIOTIC, First dose on Mon11/15/24 at 0130, Until Discontinued, at 100 mL/hr 0414 (IV New Bag - Provider: La Patel RN)1000 (Hold/Not Given - Provider: Jeff Renteria RN - Reason: Not indicated - Comment: d/c per Arvind) PRN Medication Order 11/17/2024 11/18/2024 11/19/2024 bacitracin 500 UNIT/GM ointment Topical, DAILY PRN, Starting on Mon11/15/24 at 1736, Until Mon11/19/24 at 2050, Apply to catheter site with dressing change cyclobenzaprine (FLEXERIL) tablet 10 mg, Oral, 3 TIMES DAILY PRN, Starting on Mon11/16/24 at 0802, Until Mon11/19/24 at 2050, Muscle spasms 0420 (Given - Provider: Kalyani Mac RN) cyproheptadine (PERIACTIN) 4 MG tablet 4 mg, Oral, 3 TIMES DAILY PRN, Starting on Mon11/16/24 at 0726, Until Mon11/19/24 at 2050, Allergies metoclopramide (REGLAN) 5 MG/ML injection (CANCELED) 10 mg, Intravenous Push, EVERY 6 HOURS PRN, Starting on Mon11/15/24 at 0531, Until Mon11/19/24 at 0922, headache, second line nausea 0419 (Given - Provider: Kalyani Mac RN)1728 (Given - Provider: Darling Keith RN) metoclopramide (REGLAN) tablet 10 mg, Oral, EVERY 6 HOURS PRN, Starting on Mon11/19/24 at 0921, Until Mon11/19/24 at 205, nausea and/or headache 0952 (Given - Provid er: Darling Keith RN) ondansetron (ZOFRAN-ODT) disintegrating tablet 4 mg, Oral, EVERY 6 HOURS PRN, Starting on Mon11/19/24 at 0922, Until Mon11/19/24 at 2050, Nausea simethicone (GAS-X) 80 MG chewable tablet 80 mg, Oral, EVERY 6 HOURS PRN, Starting on Mon11/18/24 at 0425, Until Mon11/19/24 at 2050, Flatulence 0436 (Given - Provider: Kalyani Mac RN) Scheduled Medication Order 11/25/2024 11/26/2024 11/27/2024 HYDROmorphone (DILAUDID) 0.2 MG/ML injection 0.4 mg (COMPLETED) 0.4 mg, Intravenous Push, ONCE, 1 dose, On Mon11/27/24 at 1557 1544 (Given - Provid er: Rosy Segovia RN) iohexol (OMNIPAQUE) 300 MG/ML injection (COMPLETED) 50 mL, Rectal, Once at Radiology exam, 1 dose, Starting on Mon11/27/24 at 1510, Until Mon11/27/24 at 1445, Imaging Protocol Orders 1445 (Given - Provid er: Jj Garber - Comment: lot # [id number]) iohexol (OMNIPAQUE) 350 MG/ML injection (COMPLETED) 100 mL, Intravenous Push, Once at Radiology exam, 1 dose, Starting on Mon11/27/24 at 1638, Until Mon11/27/24 at 1638, Imaging Protocol Orders 1638 (Given - Provid er: Tushar Peralta) magnesium sulfate 2 GM/50ML in 50 mL ivpb (COMPLETED) 2 g (2,000 mg), Intravenous, ONCE, 1 dose, On Mon11/27/24 at 1316 1315 (IV New Bag - P rovider: Rosy Segovia RN)1515 (IV Stop - Provider: Rosy Segovia RN) morphine sulfate 4 MG/ML injection (COMPLETED) 4 mg, Intravenous Push, ONCE, 1 dose, On Mon11/27/24 at 1320 1315 (Given - Provid er: Rosy Segovia RN) ondansetron (ZOFRAN) 4 MG/2ML injection (COMPLETED) 4 mg, Intravenous Push, STAT, 1 dose, On Mon11/27/24 at 1320 1315 (Given - Provid er: Rosy Segovia RN) FOR RECORDS PERTAINING TO PATIENTS WHO ARE OR HAVE BEEN ENROLLED IN A CHEMICAL DEPENDENCY/SUBSTANCEABUSE PROGRAM, SOME INFORMATION MAY BE OMITTED. This clinical summary was aggregated from multiple sources. Caution should be exercised in using it in the provision of clinical care. This summary normalizes information from multiple sources, and as a consequence, information in this document may materially change the coding, format and clinical context of patient data. In addition, data may be omitted in some cases. CLINICAL DECISIONS SHOULD BE BASED ON THE PRIMARY CLINICAL RECORDS. [facility]. provides no warranty or guarantee of the accuracy or completeness of information in this document.
[2025-07-12 13:07] LABS: Barbiturate Urine NEGATIVE (< 200 ng/mL); Benzodiazepine Urine NEGATIVE (< 200 ng/mL); PCP Urine NEGATIVE (< 25 ng/mL); THC Urine NEGATIVE (< 50 ng/mL)
== END | disposition home or self-care (01) ==
LOC: LAB 11:32
PROVIDERS: PCP Internal Medicine
DX: Z02.89 Encounter for other administrative examinations (principal)
CPT/HCPCS: 80307

== ENCOUNTER 2025-09-02 03:21 | Emergency (ER) | payer MEDICAID, SELFPAY ==
[2025-09-02 03:25] VITALS: BP 136/80; PULSE 77; RESP 18; TEMP 36.6; O2SAT 98; BMI 32.9
--- NOTE | 2025-09-02 03:42 | CT_ITS ---
PROCEDURE: ABDOMEN/PELVIS W IV CONT ONLY 09/02/2025 REASON FOR EXAM: ABD PAIN TECHNIQUE: Procedure Code: [id number] Modality: CT Procedure: ABDOMEN/PELVIS W IV CONT ONLY Coronal and Sagittal reconstruction series were provided. CONTRAST: isovue 370 VOLUME: 100 mL One or more dose reduction techniques were used (e.g., Automated exposure control, adjustment of the mA and/or kV according to patient size, use of iterative reconstruction technique. RADIATION DOSE SUMMARY: CTDI Vol 13.71 mGy DLP :713.64 mGycm FINDINGS: Resolution of the pelviabdominal collections, peritoneal fat stranding a diffuse pelvi-abdominal wall edema. Average sized liver showing homogenous parenchymal attenuation. No dilated intra or extra-hepatic biliary tracts. Gall bladder showing no radiodense calculi. Normal appearance of the pancreas with clear surrounding fat planes. The spleen, adrenal glands, aorta and IVC are unremarkable. Both kidneys are of average size and showing smooth outline with preserved parenchymal thickness. No renal calculi. No hydronephrosis. Distension of the urinary bladder showing no obvious masses. No obvious masses related to the pelvic viscera. Retroverted uterus with an IUCD. Bilateral ovarian follicles. The appendix is not identified. Colonic fecal loading. The small bowel loops are unremarkable. The stomach is unremarkable. No ascites or free air. No obvious pathologically enlarged lymph nodes. Scanned osseous structures show no osseous destruction. Scanned lung bases show no obvious abnormalities. CT/Abdomen/Pelvis W IV Cont ONLY IMPRESSION: Resolution of the pelviabdominal collections, peritoneal fat stranding a diffus e pelvi-abdominal wall edema. No acute pelvi-abdominal abnormalities, collections or free air. Reading [facility]
[2025-09-02] MEDS: 0.9% Normal Saline (1000mL) 1,000 ML 999 ML IV (04:06)
[2025-09-02 04:18] LABS: Hematocrit 39.9 % (37-47); Hemoglobin 12.9 g/dL (12.0-15.0); Immature Granulocytes Count 0.030 X10^3/uL (0.0-0.0); Mean Corp Hgb Conc 32.3 g/dL (32-36); Mean Corpuscular Volume 77.0 fL (81-99); Mean Platelet Vol. 8.9 fl (6.2-12.0); NRBC Flagged by Analyzer 0 % (0-5); Platelet Count 260 K/mm3 (150-450); RBC Distribution Width CV 14.6 % (11.6-14.6); RBC Distribution Width SD 40.6 fl (35.1-43.9); Red Blood Count 5.18 M/mm3 (4.2-5.4); White Blood Count 9.1 K/mm3 (4.4-11.0)
[2025-09-02 04:26] LABS: Internal QC Validated? YES +Cl - CLEAR BKGD; Pregnancy, Serum, hCG Quali. NEGATIVE Negative; Record Kit Lot#, Serum Preg. 0000980607
--- OUTSIDE RECORDS SUMMARY | 2025-09-02 04:34 | XMS RPT_ITS | CCD ---
Author Organization [facility] Care Team Providers Care Network Engineer Administrator Name Role Phone PROVIDER, UNKNOWN Unavailable Unavailable Khadijah, Nishant Unavailable Unavailable Khadijah, Nishant Unavailable Unavailable Bledsoe, Tony Unavailable Unavailable Risco, Nishant Unavailable Unavailable Khadijah, Nishant Unavailable Unavailable Cyndie Orlandoe Unavailable Unavailable Khadijah, Nishant Unavailable Unavailable Risco, Nishant Unavailable Unavailable PROVIDER, UNKNOWN Unavailable Unavailable Khadijah, Nishant Unavailable Unavailable Khadijah, Nishant Unavailable Unavailable Zhao Taylor Unavailable Unavailable Khadijah, Nishant Unavailable Unavailable Khadijah, Nishant Unavailable Unavailable Emmanuel, Edith Unavailable Unavailable Risco, Nishant Unavailable Unavailable Khadijah, Nishant Unavailable Unavailable PROVIDER, UNKNOWN Unavailable Unavailable Khadijah, Nishant Unavailable Unavailable Khadijah, Nishant Unavailable Unavailable Risco, Nishant Unavailable Unavailable Risco, Nishant Unavailable Unavailable KRISTIN, YUE Unavailable Unavailable ELEAZAR, SHYANN Unavailable Unavailable Becky Sotelo Unavailable Unavailable Becky Sotelo Unavailable Unavailable JORDY CADE Referring Unavailable JORDY CADE Referring Unavailable Dr. Becky Sotelo Primary Care Provider [phone] Dr. Becky Sotelo Referring Provider Dr. Elaine Jones Attending Provider [phone] Becky Sotelo MD Primary Care Provider [phone] PROVIDER, UNKNOWN Attending Unavailable PROVIDER, UNKNOWN Admitting [...] NICE Admitting Unavailable ADELFO NICE Attending Unavailable [phone], IP EGS TEAM Consulting Unavailabl e CONSULT, IP INFECTIOUS DISEASE Consulting U navailable CONSULT, IP OB HIGH RISK Consulting Unavail able REQUEST, IP SOCIAL WORK SERVICE Consulting Unavailable CONSULT, IP PSYCHIATRIC ADULT Consulting Un available PROVIDER, UNKNOWN Admitting Unavailable APRIL ABEBE Attending Unavailable PROVIDER, UNKNOWN Admitting Unavailable PROVIDER, UNKNOWN Attending Unavailable SHEILA LAMAR Referring Unavailable Nedra Hurtado MD Unavailable Unavailable Primary Care Provider Unavailshelbi Sotelo MD, Dr. Brown Primary Care Provider [phone] Ashleigh MALIK, Dr. Brown Referring Provider Karen MALIK, Dr. Henry Attending Provider Karen MALIK, Dr. Henry Referring Provider [phone] Arvind COLEMAN, Dr. Patel Attending Provider [phone] Arvind COLEMAN, Dr. Patel Emergency Provider Samara MALIK, Dr. Garcia Primary Care Provider [phone] Humberto Yao Attending Provider Dr. Radha Pascual MD Referring Provider Riccardo AUTOMATION MACHINE BUILDER-CLa Attending Provider Riccardo AUTOMATION MACHINE BUILDER-CLa Referring Provider Samara MALIK, Dr. Garcia Attending Provider Samara, Radha Primary Care Unavailable LUIS GOOD Attending Unavailable LUIS GOOD Referring Unavailable Elaine Jones Attending Unavailable [place], Radha Primary Care Unavailable Marcanthony Elaine Referring Unavailable Samara, Radha Attending Unavailable Samara, Radha Primary Care Unavailable MarcanthonyRajivon Attending Unavailable [place], Becky Primary Care Unavailable Marcanthony, Elaine Referring Unavailable Marcanthony, Elaine Admitting Unavailable Marcanthony, Elaine Referring Unavailable [place], Becky Primary Care Unavailable JuaquinanthonyRajivon Attending Unavailable Sheila Lamar Attending Unavailable [place], Becky Primary Care Unavailable Samara, Radha Primary Care Unavailable La Gu Attending Unavailable La Gu Referring Unavailable Samara, Radha Primary Care Unavailable Jorge Samuels Attending Unavailable Samara, Radha Primary Care Unavailable La Gu Attending Unavailable La Gu Referring Unavailable Samara, Radha Referring Unavailable Samara, Radha Primary Care Unavailable Humberto Yao Attending Unavailable MarcElaine gu Attending Unavailable [place], Radha Referring Unavailable [place], Radha Primary Care Unavailable [place], Becky Referring Unavailable [place], Becky Primary Care Unavailable Elaine Jones Attending Unavailable Elaine Jones Admitting Unavailable [place], Becky Primary Care Unavailable Elaine Jones Referring Unavailable Elaine Jones Consulting Unavailable Elaine Jones Attending Unavailable Nando Mathews Attending Unavailable Genesis Mcintosh Attending Unavailable [place], Becky Referring Unavailable [place], Becky Primary Care Unavailable MarcanthonyElaine Referring Unavailable Dre Dillon Attending Unavailable [place], Becky Primary Care Unavailable Samara, Radha Referring Unavailable [place], Radha Primary Care Unavailable La Gu Attending Unavailable [place], Becky Referring Unavailable [place], Becky Primary Care Unavailable Elaine Jones Attending Unavailable Kenyatta Chin Attending Unavailable Samara, Radha Primary Care Unavailable [place], Becky Referring Unavailable Elaine Jones Attending Unavailable Humberto Yao Attending Unavailable [place], Radha Referring Unavailable [place], Radha Primary Care Unavailable Samara, Radha Primary Care Unavailable Humberto Yao Attending Unavailable [place], Becky Referring Unavailable Samara, Radha Referring Unavailable Samara, Radha Primary Care Unavailable La Gu Attending Unavailable Samara MALIK, Dr. Garcia Primary Care Physician Dr. Radha Pascual MD Referring Provider Riccardo AUTOMATION MACHINE BUILDER-CLa Attending Physician Samara MALIK, Dr. Garcia Attending Physician Dr. Elaine Jones MD Attending Physician Dr. Elaine Jones MD Referring Provider Humberto Yao Attending Physician GOGO CASSIDY Attending Physician [phone] GOGO CASSIDY Referring Provider Allergies Allergy Classification Reported Allergen(s) Allergy Type Date of Onset Reaction(s) Facility (20 sources) Latex; Translations: [LATEX] Propensity to adverse reactions (disorder) 7 Unknown, Other, Rash [facility] Repository (20 sources) Verapamil; Translations: [VERAPAMIL] Drug Allergy 8 Anaphylaxis, Anaphylactic Shock [facility] Repository (2 sources) OTHER; Translations: [OTHER] Propensity to adverse reactions (disorder) 6 [facility] Repository (1 source) Adhesive Tape Allergy to substance 2 [facility] Work Phone: (14 sources) Botulinum Toxin Type A; Translations: [ONABOTULINUMTO XINA] Drug Allergy 0 Other: See Comments [facility] Work Phone: (12 sources) natural latex rubber; Translations: [Latex, Natural Rubber] Allergy to substance 2 Other [facility] Comment on above: SWELLING, REDNESS, I TCHING (2 sources) TAPE [Other] Propensity to adverse reactions 6 [facility] (20 sources) BOTULINUM TOXIN TYPE A; Translations: [BOTULINUM TOXIN TYPE A] Propensity to adverse reactions to drug (disorder) 2 Itching [facility] Repository (20 sources) BANDAGE TAPE; Translations: [BANDAGE TAPE] Propensity to adverse reactions (disorder) 7 Rash [facility] Repository (19 sources) Botulinum Toxin Type A Drug Allergy 0 Itching, Rash, Swelling [facility] (11 sources) Adhesive Tape; Translations: [adhesive tape] Allergy to substance 5 [facility] (1 source) Botulinum Toxin Type A Drug Allergy 5 [facility] Repository Medications Current Medications Medication Drug Class(es) Dates Sig (Normalized) Sig (Original) acetaminophen 500 mg oral tablet (20 sources) Start: 11-17-2024 take 2 tablets by [...] every 4 hours as needed. 0 Active [id number] actuat albuterol 0.09 mg/actuat metered dose inhaler (20 sources) beta2-Adrenergic Agonist Start: 07-24-20 Start: 03-28-2025 End: 07-24-2025 Albuterol Sulfate (Ventolin Hfa) 90 mcg/actuation HFA [...] 4 hours as needed. 0 03/31/2018 Active Albuterol-Budesonide (1 source) Start: 06-20-2025 Albuterol-Budesonide (Airsupra) 90-80 mcg/actuation HFA aerosol inhaler (1 source) Start: 06-20-2025 Albuterol-[place] sonide (Airsupra) 90-80 mcg/actuation HFA aerosol inhaler Active 2 NMA INHALATION .Q4 hours as needed for shortness of breath 10.7 0 June 20, 2025 12:00am as a single dose; may repeat up to 6 doses per day (12 inhalations) ALPRAZolam 0.5 mg oral table t (20 sources) Benzodiazepine Start: 08-21-2021 ALPRAZolam (XA NAX) 0.5 mg tablet Start: 12-20-2018 take 1 tablet by joshua th at bedtime Start: 04-16-2017 take 1 mg by mouth t hree times daily Alprazolam Active 1 MG PO THREE TIMES A DAY April 16, 2017 5:02pm Start: 04-16-2017 take 2 tablets by mo [facility] three times daily End: 11-19-2024 take 4 tablets by mouth [...] take 1 capsule by mouth twice daily Start: 04-16-2017 End: 02-10-2022 take 1 capsule [...] mg by mouth once daily. 0 Active benzonatate 200 mg oral capsule (1 source) Non-narcotic Antitussive Start: 06-20-20 take 1 capsule by mouth three times daily as needed for cough Blood Glucose Monitoring Suppl (Blood Glucose Monitor System) w/Device KIT (18 sources) Start: 11-17-19 Blood Glucose Monitoring Suppl (Blood Glucose Monitor System) w/Device KIT 1 Kit as needed. As covered by insurance. Dx: DM2, uncontrolled (E11.65) with long-term insulin use (Z79.4) 1 Kit 11/18/2024 8:57 AM EST 11/17/2024 Active Blood-Glucose Meter misc (2 sources) Start: 10-15-20 18 Blood-Glucose Meter misc Indications: Type 2 diabetes mellitus without complication, unspecified whether retirement insulin use (HCC) 1 Package four times daily. Check blood sugars fasting and 2 hours after meals. 1 Each 0 10/15/2018 Active Blood-Glucose Sensor (Dexcom G7 Sensor) device (12 sources) Start: 06-20-20 Blood-Glucose Sensor (Dexcom G7 Sensor) device Active [...] .Route March 07, 2025 12:00am As directed Blood-Glucose,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,Cont (Dexcom G7 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) misc (16 sources) Start: 05-05-2025 Blood-Glucose,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,Cont (Dexcom G7 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) misc Active 0 .Route 1 0 May 05, 2025 3:42pm As directed Start: 03-07-2025 End: 05-05-2025 Blood-Glucose,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,Cont (Dexcom G7 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) misc Discontinued 0 .Route 1 March 07, 2025 12:00am May 05, 2025 3:42pm As directed Start: 03-07-2025 Blood-Glucose, 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,Cont (Dexcom G7 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) misc Active 0 .Route 1 March 07, 2025 12:00am As directed Start: 03-07-2025 Blood-Glucose, 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,Cont (Dexcom G7 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) misc Active 0 .Route 1 March 07, [...] Active busPIRone hydrochloride 5 mg oral tablet (4 sources) Start: 06-13-2025 take 1 tablet by mouth twice daily cetirizine hydrochloride 10 mg oral tablet (2 sources) Histamine-1 Receptor Antagonist Start: 08-22-2017 take 1 tablet by mouth once daily cetirizine (ZYRTEC) 10 mg tablet Take 10 mg by mouth once daily. 0 08/22/2017 Active copper 313 mg drug implant (9 sources) Copper-containing Intrauterine Device Start: 03-31-2025 cyclobenzaprine hydrochloride 10 mg oral tablet (20 [...] on 11/16/24 at 0802, Until 11/19/24 at 2050, Muscle spasms Start: 10-07-2021 take 1 tablet by joshua th every twelve hours as needed cyclobenzaprine (FLEXERIL) 10 mg tablet Take 1 tablet by mouth twice daily as needed. 10 tablet 1 10/07/2021 Active cyproheptadine hydrochloride 4 mg oral tablet (20 sources) Start: 11-16-2024 End: 11-19-2024 take 1 tablet by mouth three times daily as needed cyproheptadine (PERIACTIN) 4 MG tablet Take 1 Tablet by mouth 3 times daily as needed for Allergies. 90 Tablet 3 11/18/2024 8:57 AM EST 11/17/2024 Active docusate sodium 100 mg oral capsule (20 sources) Start: 11-16-2024 End: 11-19-2024 take 1 capsule by mouth twice daily in the morning docusate sodium (COLACE) 100 MG capsule Take 1 Capsule by mouth 2 times daily. 60 Capsule 3 11/18/2024 8:57 AM EST 11/17/2024 Active [id number] 0.3 ml EPINEPHrine 1 mg/ml auto-injector (11 sources) alpha-Adrenergic Agonist, beta-Adrenergic Agonist, Catecholamine Start: 03-28-2025 Start: 12-23-2016 EPINEPHrine (E PIPEN) 0.3 mg/0.3 mL auto-injector Use as directed prn allergic reaction 2 Each 1 12/23/2016 Active ferrous sulfate 325 mg delay ed release oral tablet (10 sources) Start: 03-08-2025 take 1 tablet by joshua th once daily 1.5 ml fremanezumab-vfrm 150 mg/ml auto-injector (13 sources) Start: 02-10-2022 Start: 07-22-2021 AJOVY AUTOINJE CTOR 225 mg/1.5 mL auto-injector INJECT 3 PENS INTO THE SKIN EVERY 3 MONTHS 0 07/22/2021 Active gabapentin 800 mg oral tablet (2 sources) Anti-epileptic Agent gabapentin (NEURONTIN) 800 mg tablet Take 800 mg by mouth. takes a sneeded 0 Active hydrOXYzine pamoate 25 mg oral capsule (2 sources) Antihistamine Start: 01-14-20 17 take 1 capsule by mouth every eight hours as needed hydrOXYzine pamoate (VISTARIL) 25 mg capsule Take 1 capsule by mouth three times daily as needed for Anxiety. 30 capsule 2 01/13/2017 Active ibuprofen 600 mg oral tablet (20 sources) Nonsteroidal Anti-inflammatory Drug Start: 11-15-19 End: 11-19-19 25 take 1 tablet by mouth every six hours in the morning ibuprofen (MOTRIN) 600 MG tablet Take 1 Tablet by mouth every 6 hours. 30 Tablet 3 11/18/2024 8:57 AM EST 11/17/2024 Active 3 ml insulin glargine 100 unt/ml pen injector (20 sources) Insulin Analog Start: 03-31-20 Start: 02-25-2025 End: 03-31-2025 Insulin Glargine (Basaglar K wikpen U-100 Insulin) 100 unit/mL (3 mL) insulin pen Discontinued 14 U SC EVERY EVENING February 25, 2025 12:00am March 31, 2025 1:44pm Start: 11-15-2024 End: 11-19-2024 insulin glargine (L[facility]STAR/BASAGLAR KWIKPEN) 100 UNIT/ML pen Inject 14 Units under the skin at bedtime. 15 mL 5 11/18/2024 8:57 AM EST 11/17/2024 Active 3 ml insulin lispro 100 unt/ ml pen injector (20 sources) Insulin Analog Start: 03-07-2025 End: 03-31-2025 Start: 11-19-2024 End: 11-19-2024 6 Units, Subcutaneous, [...] 0130 isopropyl alcohol 0.7 ml/ml medicated pad (19 sources) Start: 11-17-2024 End: 11-12-2025 alcohol swabs [...] take 1 tablet by mouth twice daily meclizine hydrochloride 25 mg oral tablet (2 [...] oral tablet (20 sources) Biguanide Start: 03-07-2025 Start: 11-17-2024 End: 11-17-2025 take 2 tablets [...] by mouth as needed. 0 05/23/2018 Active Tirzepatide (1 source) Start: 06-20-2025 triamcinolone acetonide 0.055 mg/actuat metered dose nasal spray (2 sources) Corticosteroid Start: 12-23-2017 triamcinolone acetonide (NASACORT AQ) 55 mcg nasal inhaler Use 1 [place] in the nose as needed. 0 12/23/2017 Active Completed/Discontinued Medications Medication Drug Class(es) Dates Sig (Normalized) Sig (Original) acetaminophen 325 mg / HYDROcodone bitartrate 5 mg oral tablet (11 sources) Opioid Agonist Start: 09-14-2018 End: 09-16-2018 [...] 2018 1:15am Abdominal pain Unspecified abdominal pain amoxicillin 875 mg / clavulanate 125 mg [...] on Mon11/15/24 at 1736, Until Mon11/19/24 at 205, Apply to catheter site with dressing change onabotulinumtoxina 100 unt injection (11 sources) Acetylcholine Release Inhibitor Start: 09-03-2020 End: [...] Intra Procedure fluconazole 150 mg oral tablet (11 sources) Azole Antifungal Start: 02-11-2022 End: 11-14-2024 take 1 tablet by mouth once Fluconazole (Diflucan) 150 mg tablet Discontinued 150 mg PO ONCE 1 February 11, 2022 12:00am November 14, 2024 4:28pm 1 ml galcanezumab-gnlm 120 mg/ml auto-injector (11 sources) Start: 03-10-2020 End: 02-10-2022 Galcanezumab-Gnlm (Emgality Pen) 120 mg/mL pen injector Discontinued 120 mg SC EVERY MONTH March 10, 2020 12:00am February 10, 2022 12:01pm hydrocortisone 0.025 mg/mg topical ointment (11 sources) Corticosteroid Start: 02-10-2022 End: 02-25-2025 Hydrocortisone 2.5 % ointment Discontinued 1 NMA TOPICAL TWICE A DAY 28.35 February 10, 2022 12:00am February 25, 2025 8:38am 1 ml HYDROmorphone hydrochloride 0.2 mg/ml prefilled syringe (3 sources) Opioid Agonist Start: 11-27-2024 End: 11-27-2024 take 0.4 mg intravenously once 0.4 mg, Intravenous Push, ONCE, 1 dose, On 11/27/24 at 1557 Start: 11-15-2024 End: 11-15-2024 take [...] 1-S. Therm (Vsl#3) 112.5 billion cell capsule (8 sources) Start: 04-23-2025 End: 06-20-2025 Lactobac 2-Bifido 1-S. Therm (Vsl#3) 112.5 billion cell capsule Discontinued 2 NMA PO TWICE A DAY 120 30 April 23, 2025 12:00am June 20, 2025 8:34am Start: 04-23-2025 Lactobac 2-Bif marci 1-S. Therm (Vsl#3) 112.5 billion cell capsule Active 2 NMA PO TWICE A DAY 120 30 April 23, 2025 12:00am Start: 04-23-2025 Lactobac 2-Bif marci 1-S. Therm (Vsl#3) 112.5 billion cell capsule Active 2 NMA PO TWICE A DAY 120 April 23, 2025 12:00am lamoTRIgine 25 mg oral tablet (20 sources) Mood Stabilizer, Anti-epileptic Agent Start: 11-15-2024 End: 03-07-2025 take 1 tablet by mouth once Lamotrigine (Lamictal) 25 mg tablet Discontinued 25 mg PO ONCE February 25, 2025 12:00am March 07, 2025 8:39am Start: 10-01-2018 take 1 tablet by joshua th once daily lamoTRIgine (LAMICTAL) 100 mg tablet Take 1 tablet by mouth once daily. 30 tablet 0 10/01/2018 Active lidocaine 0.04 mg/mg medicated patch (1 source) [...] at 1320 nabumetone 500 mg oral tablet (11 sources) Nonsteroidal Anti-inflammatory Drug Start: 02-10-2022 End: 03-31-2025 take 1 tablet by mouth twice daily Nabumetone 500 mg tablet Discontinued 500 mg PO TWICE A DAY 30 February 10, 2022 12:00am March 31, 2025 1:42pm naproxen 500 mg oral tablet (12 sources) Nonsteroidal Anti-inflammatory Drug Start: 11-09-2024 End: 03-07-2025 take 1 tablet by mouth every eight hours Naproxen 500 mg Tablet Discontinued 500 mg PO Q8H 42 14 November 09, 2024 1:00am March 07, 2025 8:39am Start: 10-07-2015 take 1 tablet by joshua th twice daily at mealtime naproxen (NAPROSYN) 500 [...] take 1 tablet by mouth twice daily 2 ml ondansetron 2 mg/ml injection (5 sources) Serotonin-3 Receptor Antagonist Start: 11-27-2024 End: 11-27-2024 4 mg, Intravenous Push, STAT, 1 dose, On Mon11/27/24 at 1320 Start: 11-19-2024 End: 11-19-2024 take 4 mg by mouth every six hours as needed for nausea 4 mg, Oral, EVERY 6 HOURS PRN, Starting on Mon11/19/24 at 0922, Until Mon11/19/24 at 2051, Nausea Start: 11-15-2024 End: 11-19-2024 take 4 [...] Active oxyCODONE hydrochloride 5 mg oral tablet (10 sources) Opioid Agonist Start: 11-09-2024 End: 02-25-2025 [...] mL/hr promethazine hydrochloride 25 mg oral tablet (13 sources) Phenothiazine Start: 01-13-2017 End: 09-02-2019 take 1 tablet by mouth every six hours as needed for nausea Promethazine 25 MG tablet Discontinued 25 mg PO EVERY 6 HOURS NEEDED as needed for Nausea 10 0 October 12, 2018 1:00am September 02, 2019 10:02am rimegepant 75 mg disintegrating oral tablet (13 sources) Start: 02-09-2021 End: 11-14-2024 take 1 tablet by mouth every twenty-four hours as needed Rimegepant (Nurtec Odt) 75 mg tablet,disintegrating Discontinued 75 mg PO ONCE as needed February 09, 2021 12:00am November 14, 2024 4:31pm as a single dose; not to exceed 1 dose per 24 hrs OR 15 doses per 30 days take 1 tablet by joshua once daily as needed rimegepant (NURTEC ODT) 75 mg disintegra ting tablet Take 75 mg by mouth once daily as needed. 0 Active rizatriptan 10 mg oral tablet (13 sources) Serotonin-1b and Serotonin-1d Receptor Agonist Start: 09-02-2019 End: 11-14-2024 take 1 tablet by mouth once Rizatriptan (Maxalt) 10 mg tablet Discontinued 10 mg PO ONCE September 02, 2019 1:00am November 14, 2024 4:31pm take 1 tablet by joshua every two hours as needed rizatriptan (MAXALT) 10 mg tablet Take 1 0 mg by mouth as needed. May repeat in 2 hours if needed 0 Active simethicone 80 mg chewable tablet (1 source) Start: 11-18-2024 End: 11-19-2024 take 80 mg by mouth every six hours as needed 80 mg, Oral, EVERY 6 HOURS PRN, Starting on Mon11/18/24 at 0425, Until Mon11/19/24 at 2051, Flatulence 1000 ml sodium chloride 9 mg/ml injection (1 source) Start: 11-15-2024 End: 11-15-2024 Intravenous, at 125 mL/hr, CONTINUOUS, Starting on Mon11/15/24 at 0930, Until Mon11/15/24 at 1916 sulfamethoxazole 800 mg / trimethoprim 160 mg oral tablet (20 sources) Dihydrofolate Reductase Inhibitor Antibacterial, Sulfonamide Antimicrobial Start: 02-25-2025 End: 03-07-2025 Sulfamethoxazole- Trimethoprim (Bactrim Ds) 800-160 mg tablet Discontinued 1 {tbl} PO TWICE A DAY 20 10 0 February 25, 2025 1:11pm March 06, 2025 12:00am March 07, 2025 12:08am ubrogepant 100 mg oral tablet (11 sources) Start: 09-03-2020 End: 11-14-2024 take 1 tablet by mouth once Ubrogepant (Ubrelvy) 100 mg tablet Discontinued 100 mg PO ONCE September 03, 2020 1:00am November 14, 2024 4:32pm as a single dose; may repeat once in >=2 hours after first dose if needed divalproex sodium 250 mg delayed release oral tablet (11 sources) Mood Stabilizer, Anti-epileptic Agent Start: 09-02-2019 [...] Translations: [Cerebral infarction, unspecified] Onset: 9 Chronic Administrative/social admission (3 sources) Support system deficit; Translations: [Other specified problems related to psychosocial circumstances] Onset: 8 10-11-2018 Episodic Allergic reactions (7 sources) Latex allergy status; [...] Episodic Conditions associated with dizziness or vertigo (13 sources) Dizziness and giddiness; Translations: [Vertigo] Onset: 8 09-02-2016 Episodic Contraceptive and procreative management (20 sources) Intrauterine contraceptive device in situ; Translations: [Presence of (intrauterine) contraceptive device] Onset: 5 03-08-2025 Episodic Deficiency and other anemia (19 sources) Anemia; Translations: [Anemia, unspecified] 03-08-2025 Episodic [...] 8 Chronic Diseases of white blood cells (10 sources) Leukocytosis; Translations: [Elevated white blood cell [...] objects, init] Onset: 8 Headache; including migraine (13 sources) Migraine, unspecified, not intractable, without status migrainosus; Translations: [Migraine] Onset: 8 12-21-2018 Chronic HIV infection (1 source) Asymptomatic human immunodeficiency virus [HIV] infection status; Translations: [Asymptomatic human immunodeficiency virus [HIV] infection status] Onset: 5 Chronic Hypertension complicating ; childbirth and the puerperium (10 sources) Hypertensive disorder; Translations: [Unspecified maternal hypertension, complicating the puerperium] 11-07-2024 Chronic Comment on above: preeclampsia workup, magnesium sulfate, labetalol Menstrual disorders (20 sources) Dysmenorrhea; Translations: [Dysmenorrhea, unspecified] Onset: 5 Chronic Comment on above: nabumetone. failed i ud and nexplanon, can't take estrogen, plan IUD removal at time of sterilization. Mood disorders (4 sources) Bipolar disorder, unspecified; Translations: [Bipolar disorder] Onset: 8 10-01-2018 Chronic Mood disorders (2 sources) Major depressive disorder, single episode, unspecified; Translations: [Major depressive disorder, single episode, unspecified] Onset: 8 Multiple sclerosis (20 sources) Multiple sclerosis; Translations: [Multiple sclerosis] Onset: 5 11-07-2024 Chronic Nausea and vomiting (2 sources) Nausea with vomiting, unspecified; Translations: [Nausea with vomiting, unspecified] Onset: 8 Episodic Other aftercare (2 sources) biosecurity officer (current) use of aspirin; Translations: [group home (current) use of aspirin] Onset: 8 Episodic Other circulatory disease (2 sources) Personal history of transient ischemic attack (TIA), and cerebral infarction without residual deficits; Translations: [Prsnl hx of TIA (TIA), and cereb infrc w/o resid deficits] Onset: 8 Episodic Other complications of ; puerperium affecting management of mother (10 sources) Deliveries by ; Translations: [Encounter for [...] trimester] Onset: 8 Episodic Other complications of (10 sources) Insufficient care; Translations: [Supervision of with insufficient care, third trimester] 11-06-2024 Episodic Other female genital disorders (10 sources) Abnormal uterine bleeding; Translations: [Other specified abnormal uterine and vaginal bleeding] 03-08-2025 Chronic Other female genital disorders (1 source) Other specified abnormal uterine and vaginal bleeding; Translations: [Other specified abnormal uterine and vaginal bleeding] Onset: 5 Chronic Other female genital disorders (11 sources) Vaginal discharge; Translations: [Other specified noninflammatory [...] of intestine] 11-27-2024 Episodic Other gastrointestinal disorders (16 sources) Diarrhea; Translations: [Diarrhea, unspecified] 04-23-2025 Episodic Other gastrointestinal disorders (1 source) Diarrhea, unspecified; Translations: [Diarrhea, unspecified] Onset: 5 Episodic Other injuries and conditions due to external causes (11 sources) Finding of urine substance level; Translations: [...] Chronic Other nutritional; endocrine; and metabolic disorders (10 sources) H/O: diabetes mellitus;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 Phone: [phone] at: [address] [id number] Director: Donell Nieto PhD, Phone: [phone] Performed By: #### L 3410.9992 ####[facility] [address] [place], [place], [address] Abdomen Limitedon 05-09-2025 Abdomen Limited Normal [facility] L7000.0750on 04-28-2025 P ELASTASE,FECA 427 Normal >200 [facility] Comment on above: Result Comment: Resu lt Units: ug Elast./g Severe Pancreatic Insufficiency: <100 Moderate Pancreatic Insufficiency: 100 - 200 Normal: >200Performed at: [facility] [address] [id number] Director: Cinthya Downs MD, Phone: [phone] Performed By: #### M 100.6796, L7000.0750, M600.5000, M100.637 ####[facility] [address] [place], [place], [address] CDIFF (PCR)on 04-24-2025 CDIFF Normal [facility] Comment on above: Performed By: #### M 100.6796, L7000.0750, M600.5000, M100.637 ####[facility] [address] [place], [place], [address] Clostridium difficile detect ion by polymerase chain reactionOrdered By: La Gu on 04-24-2025 C. difficile DNA SAE+probe Ql (Unsp spec) [facility] ENTERIC PATHOGEN PANEL STOOL on 04-24-2025 EP PANEL Normal [facility] Comment on above: Performed By: #### M 100.6796, L7000.0750, M600.5000, M100.637 ####[facility] [address] [place], [address] Stool pancreatic elastase me asurement (mass/mass)Ordered By: La Gu on 04-24-2025 Elastase.pancreatic (Stl) [Mass/Mass] 427 >200 [facility] Comment on above: Result Units: ug Karyn st./g Severe Pancreatic Insufficiency: <100 Moderate Pancreatic Insufficiency: 100 - 200 Normal: >200Performed at: [facility] [address] [id number] Director: Cinthya Downs MD, Phone: [phone] Gastroenterology Visit Repor ton 04-17-2025 Gastroenterology Visit Report Normal [facility] Laboratory - Chemistry and C hemistry - challengeOrdered By: Elaine Jones on 03-31-2025 HCG ( test) Ql (U) Negative [facility] Special Projects Manager Office Visit Reporton 03-31-2025 Special Projects Manager Office Visit Report Normal [facility] Internal Medicine Office Vis iton 03-28-2025 Internal Medicine Office Visit Normal [facility] Internal Medicine Office Vis iton 03-07-2025 Internal Medicine Office Visit Normal [facility] Absolute lymphocyte countOrd ered By: Renetta Queen on 02-28-2025 Lymphocytes Auto (Unsp spec) [#/Vol] 2.75 10*3/uL 0.83-4.51 [facility] Absolute neutrophil countOrd ered By: Renetta Queen on 02-28-2025 Neutrophils (Bld) [#/Vol] 5.1 10*3/uL 2.0-7.7 [facility] Automated lymphocyte count a s percentage of total leukocytesOrdered By: Renetta Queen on 02-28-2025 Lymphocytes/100 WBC Auto (Unsp spec) 32.2 % 19-41 [facility] Basophil percentageOrdered B y: Renetta Queen on 02-28-2025 Basophils/100 WBC (Bld) 0.5 % 0-1 [facility] CBC W/Diff, Automatedon Absolute Lymph 2.75 X10 3/uL Normal 0.83-4.51 [facility] Comment on above: Performed By: #### L 100.0100 ####[facility] [address] [place], [address] Absolute Neut 5.1 X10 3/uL Normal 2.0-7.7 [facility] Comment on above: Performed By: #### L 100.0100 ####[facility] [address] [place], [address] Basophils/100 WBC (Bld) 0.5 % Normal 0-1 [facility] Comment on above: Performed By: #### L 100.0100 ####[facility] [address] [place], [address] Eosinophils/100 WBC (Bld) 1.2 % Normal 0-5 [facility] Comment on above: Performed By: #### L 100.0100 ####[facility] [address] [place], [address] Erythrocyte distribution width (RBC) [Ratio] 13.7 % Normal 11.6-14.6 [facility] Comment on above: Performed By: #### L 100.0100 ####[facility] [address] [place], [address] Hematocrit (Bld) [Volume fraction] 36.2 % Low 37-47 [facility] Comment on above: Performed By: #### L 100.0100 ####[facility] [address] [place], [address] Hemoglobin (Bld) [Mass/Vol] 11.8 g/dL Low 12.0-15.0 [facility] Comment on above: Performed By: #### L 100.0100 ####[facility] [address] [place], [address] IG% 0.500 Normal 0.0-0.9 [facility] Comment on above: Result Comment: IG% - Immature Granulocytes (promyelocytes, myelocytes andmetamyelocytes) > 1% indicates that a LEFT SHIFT is Present. Performed By: #### L 100.0100 ####[facility] [address] [place], [address] Lymphocytes/100 WBC (Bld) 32.2 % Normal 19-41 [facility] Comment on above: Performed By: #### L 100.0100 ####[facility] [address] [place], [address] MCH (RBC) [Entitic mass] 24.6 pg Low 27.0-32.0 [facility] Comment on above: Performed By: #### L 100.0100 ####[facility] [address] [place], [address] MCHC (RBC) [Mass/Vol] 32.6 g/dL Normal 32-36 [facility] Comment on above: Performed By: #### L 100.0100 ####[facility] [address] [place], [address] MCV (RBC) [Entitic vol] 75.4 fL Low 81-99 [facility] Comment on above: Performed By: #### L 100.0100 ####[facility] [address] [place], [address] Monocytes/100 WBC (Bld) 5.7 % Normal 0-10 [facility] Comment on above: Performed By: #### L 100.0100 ####[facility] [address] [place], [address] Neutrophils/100 WBC (Bld) 59.9 % Normal 47-70 [facility] Comment on above: Performed By: #### L 100.0100 ####[facility] [address] [place], [address] Nucleated RBC (Bld) [#/Vol] 0 10*3/uL Normal 0-5 [facility] Comment on above: Performed By: #### L 100.0100 ####[facility] [address] [place], [address] Platelet mean volume (Bld) [Entitic vol] 8.7 fL Normal 6.2-12.0 [facility] Comment on above: Performed By: #### L 100.0100 ####[facility] [address] [place], [address] Platelets (Bld) [#/Vol] 333 10*3/uL Normal 150-450 [facility] Comment on above: Performed By: #### L 100.0100 ####[facility] [address] [place], [address] RBC (Bld) [#/Vol] 4.80 10*6/uL Normal 4.2-5.4 [facility] Comment on above: Performed By: #### L 100.0100 ####[facility] [address] [place], [address] RDW SD 37.0 fl Normal 35.1-43.9 [facility] Comment on above: Performed By: #### L 100.0100 ####[facility] [address] [place], [address] WBC (Bld) [#/Vol] 8.5 10*3/uL Normal 4.4-11.0 [facility] Comment on above: Performed By: #### L 100.0100 ####[facility] [address] [place], [address] Emergency Department Summary on 02-28-2025 Emergency Department Summary Normal [facility] Eosinophil percentageOrdered By: Renetta Queen on 02-28-2025 Eosinophils/100 WBC (Bld) 1.2 % 0-5 [facility] Erythrocyte distribution wid th ratioOrdered By: Renetta Queen on 02-28-2025 Erythrocyte distribution width (RBC) [Ratio] 13.7 % 11.6-14.6 [facility] Erythrocyte distribution wid th standard deviationOrdered By: Renetta Queen on 02-28-2025 Erythrocyte distribution width (RBC) [Ratio] 37.0 fl 35.1-43.9 [facility] Hematocrit Auto (Bld) [Volum e fraction]Ordered By: Renetta Queen on 02-28-2025 Hematocrit (Bld) [Volume fraction] 36.2 % Low 37-47 [facility] Hemoglobin measurementOrdere d By: Renetta Queen on 02-28-2025 Hemoglobin (Bld) [Mass/Vol] 11.8 g/dL Low 12.0-15.0 [facility] Immature granulocytes/100 WB C Auto (Bld)Ordered By: Renetta Queen on 02-28-2025 Immature granulocytes/100 WBC (Bld) 0.500 % 0.0-0.9 [facility] Comment on above: IG% - Immature Granu locytes (promyelocytes, myelocytes and metamyelocytes) > 1% indicates that a LEFT SHIFT is Present. MCV (mean corpuscular volume ) determinationOrdered By: Renetta Queen on 02-28-2025 MCV (RBC) [Entitic vol] 75.4 fL Low 81-99 [facility] Mean corpuscular hemoglobin (MCH) determinationOrdered By: Renetta Queen on 02-28-2025 MCH (RBC) [Entitic mass] 24.6 pg Low 27.0-32.0 [facility] Mean corpuscular hemoglobin concentration (MCHC) determinationOrdered By: Renetta Queen on 02-28-2025 MCHC (RBC) [Mass/Vol] 32.6 g/dL 32-36 [facility] Mean platelet volume determi nationOrdered By: Renetta Queen on 02-28-2025 Platelet mean volume (Bld) [Entitic vol] 8.7 fL 6.2-12.0 [facility] Monocyte percentageOrdered B y: Renetta Queen on 02-28-2025 Monocytes/100 WBC (Bld) 5.7 % 0-10 [facility] Neutrophil percentageOrdered By: Renetta Queen on 02-28-2025 Neutrophils/100 WBC (Bld) 59.9 % 47-70 [facility] Nucleated red blood cell per centageOrdered By: Renetta Queen on 02-28-2025 Nucleated RBC/100 WBC (Bld) [Ratio] 0 % 0-5 [facility] Platelet countOrdered By: Melinda Queen on 02-28-2025 Platelets (Bld) [#/Vol] 333 10*3/uL 150-450 [facility] ,Serum,hCG Quali.on 02-28-2025 HCG, SERUM QUAL Negative Normal [facility] Comment on above: Performed By: #### L 700.6800 ####[facility] [address] [place], [address] RBC Auto (Bld) [#/Vol]Ordere d By: Renetta Queen on 02-28-2025 RBC (Bld) [#/Vol] 4.80 10*6/uL 4.2-5.4 [facility] Serum beta-hCG test, qualita tiveOrdered By: Renetta Queen on 02-28-2025 Beta HCG ( test) Ql Negative [facility] Transvaginal Non-on 02-28-2025 Transvaginal Non- Normal [facility] White blood cell (WBC) count Ordered By: Renetta Queen on 02-28-2025 WBC (Bld) [#/Vol] 8.5 10*3/uL 4.4-11.0 [facility] PAP IG HPV APTIMA 16/18,45on 02-27-2025 ADEQ Comment Normal . [facility] Comment on above: Order Comment: Speci men Comment: [id number] Comment: No. of containers..01 ThinPrep Vial Result Comment: Sati sfactory for evaluation. Endocervical and/or squamous metaplasticcells (endocervical component) are present. Performed By: #### L 7400.0280 ####[facility] [address] [place], [place], [id number] COMM . Normal . [facility] Comment on above: Order Comment: Speci men Comment: [id number] Comment: No. of containers..01 ThinPrep Vial Performed By: #### L 7400.0280 ####[facility] [address] [place], [place], [address] COMMENT Comment Normal . [facility] Comment on above: Order Comment: Speci men Comment: [id number] Comment: No. of containers..01 ThinPrep Vial Result Comment: This liquid based ThinPrep(R) pap test was screened withthe use of an image guided system. Performed By: #### L 7400.0280 ####[facility] [address] [place], [place], [id number] DIAG Comment Abnormal . [facility] Comment on above: Order Comment: Speci men Comment: [id number] Comment: No. of containers..01 ThinPrep Vial Result Comment: EPIT HELIAL CELL ABNORMALITY.ATYPICAL SQUAMOUS CELLS OF UNDETERMINED SIGNIFICANCE (ASC-US). Performed By: #### L 7400.0280 ####[facility] [address] [place], [place], [id number] HPV APTIMA, HR Positive Abnormal Negative [facility] Comment on above: Order Comment: Speci men Comment: [id number] Comment: No. of containers..01 ThinPrep Vial Result Comment: This nucleic acid amplification test detects fourteen high-risk HPV types (16,18,31,33,35,39,45,51,52,56,58,59,66,68)without differentiation. Performed By: #### L 7400.0280 ####[facility] [address] [place], [address] HPV Yaneli Rfx Comment Normal . [facility] Comment on above: Order Comment: Speci men Comment: [id number] Comment: No. of containers..01 ThinPrep Vial Result Comment: Crit eria not met, HPV Genotype not performed.Performed at: - [facility] [id number] Director: Bobbi Butler MD, Phone: [phone] at: = - [facility] [address] [id number] Director: Bobbi Butler MD, Phone: [phone] Performed By: #### L 7400.0280 ####[facility] [address] [place], [place], [address] PAPSMR Comment Normal . [facility] Comment on above: Order Comment: Speci men Comment: [id number] Comment: No. of containers..01 ThinPrep Vial Result Comment: The Pap smear is a screening test designed to aid in thedetection of premalignant and malignant conditions of theuterine cervix. It is not a diagnostic procedure andshould not be used as the sole means of detecting cervicalcancer. Both false-positive and false-negative reports dooccur. Performed By: #### L 7400.0280 ####[facility] [address] [place], [place], [address] Path.prov.IDC-9 Comment Normal . [facility] Comment on above: Order Comment: Speci men Comment: [id number] Comment: No. of containers..01 ThinPrep Vial Result Comment: R87. 610 Performed By: #### L 7400.0280 ####[facility] [address] [place], [place], [address] PERFORM Comment Normal . [facility] Comment on above: Order Comment: Speci men Comment: [id number] Comment: No. of containers..01 ThinPrep Vial Result Comment: Bahman Kathleen, Wire Tinner (ASCP) Performed By: #### L 7400.0280 ####[facility] [address] [place], [place], [address] SIGN Comment Normal . [facility] Comment on above: Order Comment: Speci men Comment: [id number] Comment: No. of containers..01 ThinPrep Vial Result Comment: Rudolph Chanel MD, Pathologist Performed By: #### L 7400.0280 ####[facility] [address] [place], [place], [id number] Absolute lymphocyte countOrd ered By: Elaine Jones on 02-25-2025 Lymphocytes Auto (Unsp spec) [#/Vol] 2.41 10*3/uL 0.83-4.51 [facility] Absolute neutrophil countOrd ered By: Elaine Jones on 02-25-2025 Neutrophils (Bld) [#/Vol] 4.7 10*3/uL 2.0-7.7 [facility] Anion gap in Serum or Plasma Ordered By: Elaine Jones on 02-25-2025 Anion gap [Moles/Vol] 14 mmol/L 5-15 [facility] Automated lymphocyte count a s percentage of total leukocytesOrdered By: Elaine Jones on 02-25-2025 Lymphocytes/100 WBC Auto (Unsp spec) 31.0 % 19-41 [facility] BUN/creatinine ratioOrdered By: Elaine Jones on 02-25-2025 Urea nitrogen/Creatinine [Mass ratio] 25.3 mg/mg High 10-20 [facility] Basophil percentageOrdered B y: Elaine Jones on 02-25-2025 Basophils/100 WBC (Bld) 0.4 % 0-1 [facility] Bilirubin, totalOrdered By: Elaine Jones on 02-25-2025 Bilirubin [Mass/Vol] 0.23 mg/dL 0.00-1.30 [facility] CBC W/Diff, Automatedon 04-2 Absolute Lymph 2.41 X10 3/uL Normal 0.83-4.51 [facility] Comment on above: Performed By: #### L 501.9520, L500.4050, L3890.6006, L501.9985, L100.0100 ####[facility] [address] [place], [address] Absolute Neut 4.7 X10 3/uL Normal 2.0-7.7 [facility] Comment on above: Performed By: #### L 501.9520, L500.4050, L3890.6006, L501.9985, L100.0100 ####[facility] [address] [place], [address] Basophils/100 WBC (Bld) 0.4 % Normal 0-1 [facility] Comment on above: Performed By: #### L 501.9520, L500.4050, L3890.6006, L501.9985, L100.0100 ####[facility] [address] [place], [address] Eosinophils/100 WBC (Bld) 1.2 % Normal 0-5 [facility] Comment on above: Performed By: #### L 501.9520, L500.4050, L3890.6006, L501.9985, L100.0100 ####[facility] [address] [place], [address] Erythrocyte distribution width (RBC) [Ratio] 13.5 % Normal 11.6-14.6 [facility] Comment on above: Performed By: #### L 501.9520, L500.4050, L3890.6006, L501.9985, L100.0100 ####[facility] [address] [place], [address] Hematocrit (Bld) [Volume fraction] 35.3 % Low 37-47 [facility] Comment on above: Performed By: #### L 501.9520, L500.4050, L3890.6006, L501.9985, L100.0100 ####[facility] [address] [place], [address] Hemoglobin (Bld) [Mass/Vol] 11.3 g/dL Low 12.0-15.0 [facility] Comment on above: Performed By: #### L 501.9520, L500.4050, L3890.6006, L501.9985, L100.0100 ####[facility] [address] [place], [address] IG% 0.500 Normal 0.0-0.9 [facility] Comment on above: Result Comment: IG% - Immature Granulocytes (promyelocytes, myelocytes andmetamyelocytes) > 1% indicates that a LEFT SHIFT is Present. Performed By: #### L 501.9520, L500.4050, L3890.6006, L501.9985, L100.0100 ####[facility] [address] [place], [address] Lymphocytes/100 WBC (Bld) 31.0 % Normal 19-41 [facility] Comment on above: Performed By: #### L 501.9520, L500.4050, L3890.6006, L501.9985, L100.0100 ####[facility] [address] [place], [address] MCH (RBC) [Entitic mass] 24.6 pg Low 27.0-32.0 [facility] Comment on above: Performed By: #### L 501.9520, L500.4050, L3890.6006, L501.9985, L100.0100 ####[facility] [address] [place], [address] MCHC (RBC) [Mass/Vol] 32.0 g/dL Normal 32-36 [facility] Comment on above: Performed By: #### L 501.9520, L500.4050, L3890.6006, L501.9985, L100.0100 ####[facility] [address] [place], [address] MCV (RBC) [Entitic vol] 76.7 fL Low 81-99 [facility] Comment on above: Performed By: #### L 501.9520, L500.4050, L3890.6006, L501.9985, L100.0100 ####[facility] [address] [place], [address] Monocytes/100 WBC (Bld) 6.0 % Normal 0-10 [facility] Comment on above: Performed By: #### L 501.9520, L500.4050, L3890.6006, L501.9985, L100.0100 ####[facility] [address] [place], [address] Neutrophils/100 WBC (Bld) 60.9 % Normal 47-70 [facility] Comment on above: Performed By: #### L 501.9520, L500.4050, L3890.6006, L501.9985, L100.0100 ####[facility] [address] [place], [address] Nucleated RBC (Bld) [#/Vol] 0 10*3/uL Normal 0-5 [facility] Comment on above: Performed By: #### L 501.9520, L500.4050, L3890.6006, L501.9985, L100.0100 ####[facility] [address] [place], [address] Platelet mean volume (Bld) [Entitic vol] 9.1 fL Normal 6.2-12.0 [facility] Comment on above: Performed By: #### L 501.9520, L500.4050, L3890.6006, L501.9985, L100.0100 ####[facility] [address] [place], [address] Platelets (Bld) [#/Vol] 291 10*3/uL Normal 150-450 [facility] Comment on above: Performed By: #### L 501.9520, L500.4050, L3890.6006, L501.9985, L100.0100 ####[facility] [address] [place], [address] RBC (Bld) [#/Vol] 4.60 10*6/uL Normal 4.2-5.4 [facility] Comment on above: Performed By: #### L 501.9520, L500.4050, L3890.6006, L501.9985, L100.0100 ####[facility] [address] [place], [address] RDW SD 37.1 fl Normal 35.1-43.9 [facility] Comment on above: Performed By: #### L 501.9520, L500.4050, L3890.6006, L501.9985, L100.0100 ####[facility] [address] [place], [address] WBC (Bld) [#/Vol] 7.8 10*3/uL Normal 4.4-11.0 [facility] Comment on above: Performed By: #### L 501.9520, L500.4050, L3890.6006, L501.9985, L100.0100 ####[facility] [address] [place], [address] Carbon dioxide, total [Moles /volume] in Central venous bloodOrdered By: Elaine Jones on 02-25-2025 CO2 [Moles/Vol] 20.8 mmol/L Low 21.0-32.0 [facility] Cervical or vaginal specimen microscopic examination by liquid based cytology (reportOrdered By: Elaine Jones on 02-25-2025 Cytology report Cyto stain.thin prep Doc (Cvx/Vag) Comment . [facility] Comment on above: Criteria not met, HP V Genotype not performed.Performed at: WB - [facility] [id number] Director: Bobbi Butler MD, Phone: [phone] at: =G - [facility] [address] [id number] Director: Bobbi Butler MD, Phone: [phone] Cervical or vagninal specime n microscopic examination by cytology stain (reported asOrdered By: Elaine Jones on 02-25-2025 Cytology report Cyto stain Doc (Cvx/Vag) Comment . [facility] Comment on above: The Pap smear is a s creening test designed to aid in thedetection of premalignant and malignant conditions of theuterine cervix. It is not a diagnostic procedure andshould not be used as the sole means of detecting cervicalcancer. Both false-positive and false-negative reports dooccur. Chloride assayOrdered By: Keagan Jones on 02-25-2025 Chloride [Moles/Vol] 97 mmol/L Low 98-108 [facility] Comprehensive Metabolic Prof ilon 02-25-2025 Albumin [Mass/Vol] 4.1 g/dL Normal 3.5-5.0 [facility] Comment on above: Performed By: #### L 501.9520, L500.4050, L3890.6006, L501.9985, L100.0100 ####[facility] [address] [place], [address] Albumin/Globulin [Mass ratio] 1.2 {ratio} Normal 0.9-2.4 [facility] Comment on above: Performed By: #### L 501.9520, L500.4050, L3890.6006, L501.9985, L100.0100 ####[facility] [address] [place], [address] ALK PHOS 100 U/L Normal 35-104 [facility] Comment on above: Performed By: #### L 501.9520, L500.4050, L3890.6006, L501.9985, L100.0100 ####[facility] [address] [place], [address] ALT [Catalytic activity/Vol] 11 U/L Normal <=34 [facility] Comment on above: Performed By: #### L 501.9520, L500.4050, L3890.6006, L501.9985, L100.0100 ####[facility] [address] [place], [address] AST [Catalytic activity/Vol] 12 U/L Normal <=31 [facility] Comment on above: Performed By: #### L 501.9520, L500.4050, L3890.6006, L501.9985, L100.0100 ####[facility] [address] [place], [address] Bilirubin [Mass/Vol] 0.23 mg/dL Normal 0.00-1.30 [facility] Comment on above: Performed By: #### L 501.9520, L500.4050, L3890.6006, L501.9985, L100.0100 ####[facility] [address] [place], [address] BUN/CRE 25.3 RATIO High 10-20 [facility] Comment on above: Performed By: #### L 501.9520, L500.4050, L3890.6006, L501.9985, L100.0100 ####[facility] [address] [place], [address] Calcium [Mass/Vol] 9.4 mg/dL Normal 7.6-11.0 [facility] Comment on above: Performed By: #### L 501.9520, L500.4050, L3890.6006, L501.9985, L100.0100 ####[facility] [address] [place], [address] Chloride [Moles/Vol] 97 mmol/L Low 98-108 [facility] Comment on above: Performed By: #### L 501.9520, L500.4050, L3890.6006, L501.9985, L100.0100 ####[facility] [address] [place], [address] CO2 [Moles/Vol] 20.8 mmol/L Low 21.0-32.0 [facility] Comment on above: Performed By: #### L 501.9520, L500.4050, L3890.6006, L501.9985, L100.0100 ####[facility] [address] [place], [address] Creatinine [Mass/Vol] 0.70 mg/dL Normal 0.70-1.20 [facility] Comment on above: Performed By: #### L 501.9520, L500.4050, L3890.6006, L501.9985, L100.0100 ####[facility] [address] [place], [address] GAP 14 Normal 5-15 [facility] Comment on above: Performed By: #### L 501.9520, L500.4050, L3890.6006, L501.9985, L100.0100 ####[facility] [address] [place], [address] GFR/1.73 sq M.predicted among non-blacks MDRD (S/P/Bld) [Vol rate/Area] 117 mL/min/{1.73_m2} Normal >60 [facility] Comment on above: Result Comment: mL/m in/1.73m2 CKD-EPI Creatinine Equation (2020) Performed By: #### L 501.9520, L500.4050, L3890.6006, L501.9985, L100.0100 ####[facility] [address] [place], [address] Globulin (S) [Mass/Vol] 3.4 g/dL Normal 2.2-4.2 [facility] Comment on above: Performed By: #### L 501.9520, L500.4050, L3890.6006, L501.9985, L100.0100 ####[facility] [address] [place], [address] Glucose [Mass/Vol] 355 mg/dL High 70-99 [facility] Comment on above: Performed By: #### L 501.9520, L500.4050, L3890.6006, L501.9985, L100.0100 ####[facility] [address] [place], [address] Potassium [Moles/Vol] 4.8 mmol/L Normal 3.3-5.1 [facility] Comment on above: Performed By: #### L 501.9520, L500.4050, L3890.6006, L501.9985, L100.0100 ####[facility] [address], [address] Sodium [Moles/Vol] 132 mmol/L Low 133-145 [facility] Comment on above: Performed By: #### L 501.9520, L500.4050, L3890.6006, L501.9985, L100.0100 ####[facility] [address] [place], [address] T PROT 7.4 g/dL Normal 5.9-8.4 [facility] Comment on above: Performed By: #### L 501.9520, L500.4050, L3890.6006, L501.9985, L100.0100 ####[facility] [address] [place], [address] Urea nitrogen [Mass/Vol] 18 mg/dL Normal 4-19 [facility] Comment on above: Performed By: #### L 501.9520, L500.4050, L3890.6006, L501.9985, L100.0100 ####[facility] [address] [place], [address] Detection in cervical specim en of any of human papilloma virus (HPV) 16, 18, 31, 33,Ordered By: Elaine Jones on 02-25-2025 HPV 16+18+31+33+35+39+45+5 1+52+56+58+59+66+68 DNA Probe+sig amp Ql (Cvx) Positive High Negative [facility] Comment on above: This nucleic acid am plification test detects fourteen high- risk HPV types (16,18,31,33,35,39,45,51,52,56,58,59,66,68)without differentiation. Eosinophil percentageOrdered By: Elaine Jones on 02-25-2025 Eosinophils/100 WBC (Bld) 1.2 % 0-5 [facility] Erythrocyte distribution wid th ratioOrdered By: Elaine Jones on 02-25-2025 Erythrocyte distribution width (RBC) [Ratio] 13.5 % 11.6-14.6 [facility] Erythrocyte distribution wid th standard deviationOrdered By: Elaine Jones on 02-25-2025 Erythrocyte distribution width (RBC) [Ratio] 37.1 fl 35.1-43.9 [facility] Glomerular filtration rate ( GFR) estimation/1.73 sq m using serum, plasma, or whole bOrdered By: Elaine Jones on 02-25-2025 GFR/1.73 sq M.predicted among non-blacks MDRD (S/P/Bld) [Vol rate/Area] 117 mL/min/{1.73_m2} >60 [facility] Comment on above: mL/min/1.73m2 CKD-EP I Creatinine Equation (2020) HIVon 02-25-2025 HIV Non-Reactive Normal Nonreactive [facility] Comment on above: Result Comment: Non- ReactiveReactiveRepeatedly reactive samples must be confirmed according [facility] recommended confirmatory algorithms. The subresults foreither HIVAG or AHIV can be used as an aid in the selectionof the confirmation algorithm for reactive samples.Send out specimens with Reactive results to [facility] forconfirmation.Order the HIV antibody detection and differentiation:abilio#[id number] Performed By: #### L 501.9520, L500.4050, L3890.6006, L501.9985, L100.0100 ####[facility] [address] [place], [place], [address] Hematocrit Auto (Bld) [Volum e fraction]Ordered By: Elaine Jones on 02-25-2025 Hematocrit (Bld) [Volume fraction] 35.3 % Low 37-47 [facility] Hemoglobin A1con 02-25-2025 HbA1c (Bld) [Mass fraction] 12.4 % High <=5.6 [facility] Comment on above: Result Comment: Norm al < 5.7 % Prediabetic 5.7 - 6.4 % Diabetic >or= 6.5 % Please note range changes. Performed By: #### L 501.9520, L500.4050, L3890.6006, L501.9985, L100.0100 ####[facility] [address] [place], [place], [address] Hemoglobin A1c percentageOrd ered By: Elaine Jones on 02-25-2025 HbA1c (Bld) [Mass fraction] 12.4 % High <5.7 [facility] Comment on above: Normal < 5.7 % Predi abetic 5.7 - 6.4 % Diabetic >or= 6.5 % Please note range changes. Hemoglobin measurementOrdere d By: Elaine Jones on 02-25-2025 Hemoglobin (Bld) [Mass/Vol] 11.3 g/dL Low 12.0-15.0 [facility] Immature granulocytes/100 WB C Auto (Bld)Ordered By: Elaine Jones on 02-25-2025 Immature granulocytes/100 WBC (Bld) 0.500 % 0.0-0.9 [facility] Comment on above: IG% - Immature Granu locytes (promyelocytes, myelocytes and metamyelocytes) > 1% indicates that a LEFT SHIFT is Present. Laboratory - Chemistry and C hemistry - challengeOrdered By: Elaine Jones on 02-25-2025 AST [Catalytic activity/Vol] 12 U/L <32 [facility] HCG ( test) Ql (U) Negative [facility] Laboratory - CytologyOrdered By: Elaine Jones on 02-25-2025 Wire Tinner Cyto stain Nom (Cvx/Vag) [ID] Comment . [facility] Comment on above: Kiel Bailey ologist (ASCP) Pathologist Cyto stain Nom (Cvx/Vag) [ID] Comment . [facility] Comment on above: Sandra Chanel MD, P athologist Laboratory - Miscellaneous t estsOrdered By: Elaine Jones on 02-25-2025 Service comment (Unsp spec) [Interp] . . [facility] MCV (mean corpuscular volume ) determinationOrdered By: Elaine Jones on 02-25-2025 MCV (RBC) [Entitic vol] 76.7 fL Low 81-99 [facility] Mean corpuscular hemoglobin (MCH) determinationOrdered By: Elaine Jones on 02-25-2025 MCH (RBC) [Entitic mass] 24.6 pg Low 27.0-32.0 [facility] Mean corpuscular hemoglobin concentration (MCHC) determinationOrdered By: Elaine Jones on 02-25-2025 MCHC (RBC) [Mass/Vol] 32.0 g/dL 32-36 [facility] Mean platelet volume determi nationOrdered By: Elaine Jones on 02-25-2025 Platelet mean volume (Bld) [Entitic vol] 9.1 fL 6.2-12.0 [facility] Monocyte percentageOrdered B y: Elaine Jones on 02-25-2025 Monocytes/100 WBC (Bld) 6.0 % 0-10 [facility] Neutrophil percentageOrdered By: Elaine Jones on 02-25-2025 Neutrophils/100 WBC (Bld) 60.9 % 47-70 [facility] No Panel InformationOrdered By: Elaine Jones on 02-25-2025 Pap Smear Specimen Adequacy Comment . [facility] Comment on above: Satisfactory for daniel luation. Endocervical and/or squamous metaplasticcells (endocervical component) are present. Pathology report final diagnosis Narrative Comment . [facility] Comment on above: R87.610 HIV (1&2) Antibody Non-Reactive Nonreactive [facility] Comment on above: Non-ReactiveReactive Repeatedly reactive samples must be confirmed according to CDC recommended confirmatory algorithms. The subresults for either HIVAG or AHIV can be used as an aid in the selection of the confirmation algorithm for reactive samples.Send out specimens with Reactive results to [facility] for confirmation.Order the HIV antibody detection and differentiation: #[id number] Nucleated red blood cell per centageOrdered By: Elaine Jones on 02-25-2025 Nucleated RBC/100 WBC (Bld) [Ratio] 0 % 0-5 [facility] Special Projects Manager Office Visit Reporton 02-25-2025 Special Projects Manager Office Visit Report Normal [facility] Platelet countOrdered By: Keagan Jones on 02-25-2025 Platelets (Bld) [#/Vol] 291 10*3/uL 150-450 [facility] Potassium measurement (mass/ volume)Ordered By: Elaine Jones on 02-25-2025 Potassium (Unsp spec) [Mass/Vol] 4.8 mmol/L 3.3-5.1 [facility] RBC Auto (Bld) [#/Vol]Ordere d By: Elaine Jones on 02-25-2025 RBC (Bld) [#/Vol] 4.60 10*6/uL 4.2-5.4 [facility] Serum creatinine measurement (mass/volume)Ordered By: Elaine Jones on 02-25-2025 Creatinine [Mass/Vol] 0.70 mg/dL 0.70-1.20 [facility] Serum globulin measurementOr dered By: Elaine Jones on 02-25-2025 Globulin (S) [Mass/Vol] 3.4 g/dL 2.2-4.2 [facility] Serum glucose measurement (m ass/volume)Ordered By: Elaine Jones on 02-25-2025 Glucose [Mass/Vol] 355 mg/dL High 70-99 [facility] Serum or plasma alanine kang otransferase (ALT) measurementOrdered By: Elaine Jones on 02-25-2025 ALT [Catalytic activity/Vol] 11 U/L <35 [facility] Serum or plasma albumin nabil urement (mass/volume)Ordered By: Elaine Jones on 02-25-2025 Albumin [Mass/Vol] 4.1 g/dL 3.5-5.0 [facility] Serum or plasma albumin/glob ulin mass ratioOrdered By: Elaine Jones on 02-25-2025 Albumin/Globulin [Mass ratio] 1.2 {ratio} 0.9-2.4 [facility] Serum or plasma alkaline jesús sphatase measurementOrdered By: Elaine Jones on 02-25-2025 ALP [Catalytic activity/Vol] 100 U/L 35-104 [facility] Serum or plasma calcium nabil urement (mass/volume)Ordered By: Elaine Jones on 02-25-2025 Calcium [Mass/Vol] 9.4 mg/dL 7.6-11.0 [facility] Serum or plasma urea nitroge n measurement (mass/volume)Ordered By: Elaine Jones on 02-25-2025 Urea nitrogen [Mass/Vol] 18 mg/dL 4-19 [facility] Sodium levelOrdered By: Rajiv Jones on 02-25-2025 Sodium [Moles/Vol] 132 mmol/L Low 133-145 [facility] TSH DL <= 0.005 mIU/L QnOrde red By: Elaine Jones on 02-25-2025 TSH Qn 1.640 uIU/mL 0.300-4.200 [facility] Thyroid Stim Hormone (TSH)on 02-25-2025 TSH 1.640 uIU/mL Normal 0.300-4.200 [facility] Comment on above: Performed By: #### L 501.3869, L500.5164, L3890.6006, L501.9985, L100.0100 ####[facility] [address] [place], [address] Total proteinOrdered By: Walter Rezariccardo on 02-25-2025 Protein [Mass/Vol] 7.4 g/dL 5.9-8.4 [facility] White blood cell (WBC) count Ordered By: Elaine Jones on 02-25-2025 WBC (Bld) [#/Vol] 7.8 10*3/uL 4.4-11.0 [facility] Progress Noteson 12-25-2024 Refrigeration Insulator Authentication Interface Message Text [facility] Trauma/ Emergency General Surgery Clinic Staff Note BERNADETTE Faust [id number] CC: f/u for fistulous connection between percutaneous [...] [facility] Emergency General Surgery [facility] Trauma [phone] [facility] EGS [id number]/ [id number] [facility] Trauma/EGS [phone] Normal [employer] System Telephone Encounteron 2024 Refrigeration Insulator Authentication Interface Message Text Situation: Calling requesting [...] daily foul odor and particulates Sutures. In [place] now. States [place] refusing to treat drain as not placed. Background: See above Assessment: Advised to go to the ED or drug mart for dressing. Patient advised to call Earlier in day in future. Clinics close at 5 pm. Message to Gen Surgery pool Recommendation: Normal [facility] [employer] [facility] [facility] Progress Noteson 11-29-2024 Refrigeration Insulator Authentication Interface Message Text DATE NIGHT SITTER Risk Score for Admission: 72% SW reached out to Pt via telephone call. DULCE MARIA LVM for Pt informing Pt of the instructions on how to request her medical records through [employer]. SW provided SW contact information and encouraged Pt to reach out with any questions/concerns. Plan: SW will remain available. ASHLY Church, LATONYA Outpatient Financial Planning Analyst [phone] Normal [facility] Progress Noteson 11-28-2024 Refrigeration Insulator Authentication Interface Message Text DATE NIGHT SITTER Risk Score for Admission: 72% SW received [...] SS card and her certificate is in [place]. 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 SW encouraged Pt to continue waiting for her social security card, and then she will be able to get her certificate as well. Pt was agreeable. Pt reported she currently has an open case with [employer] in [place]. Pt shared the workers are accusing her of drug abuse because she tested positive for opiates after her section. Pt shared she is working with them through the courts and she has an attorney at law. Pt reported she had a recent visit at the ED and had opiates in her system, and it was put on her AVS that this was due to medical treatment. Pt requested a letter or document stating every medication Pt was prescribed during her inpatient stay at delivery. DULCE MARIA informed Pt SW would message her inpatient doctor. Pt was thankful and denied any further questions/concerns at this time. SW reached out to clinical ethics as well per Pt's doctor's request. Plan: SW will discuss this further with Pt's doctor and ethics. DULCE MARIA will follow-up with Pt once DULCE MARIA receives an update. ASHLY Church, LATONYA Outpatient Financial Planning Analyst [phone] Normal [facility] BASIC METABOLIC PANELon 01-2 Anion gap [Moles/Vol] 18 mmol/L Normal 10-20 [facility] Comment on above: Performed By: #### H EPATIC, LIP, MG, CH8 ####[facility] [address] [place], [place], Calcium [Mass/Vol] 9.3 mg/dL Normal 8.6-10.3 [facility] Comment on above: Performed By: #### H EPATIC, LIP, MG, CH8 ####[facility] [address]ZS[address] [place], Chloride [Moles/Vol] 100 mmol/L Normal 98-107 [facility] Comment on above: Performed By: #### H EPATIC, LIP, MG, CH8 ####S PATHOLOGY [address] [place], CO2 [Moles/Vol] 23 mmol/L Normal 21-31 [facility] Comment on above: Performed By: #### H EPATIC, LIP, MG, CH8 ####S PATHOLOGY PTTUAURAVJ4184 [place], Creatinine [Mass/Vol] 0.80 mg/dL Normal 0.60-1.20 [facility] Comment on above: Performed By: #### H EPATIC, LIP, MG, CH8 ####S PATHOLOGY [address]PD[address]BBWOVI6585 [place], ESTIMATED GFR (CKD-EPI) 101 mL/min/1.73sqm Normal >=60 [facility] Comment on above: Result Comment: 2020 CKD [...] Inclusion of Race in Diagnosing Kidney Disease. [place] Journal of Kidney Diseases 202;79(2):268-88.e1. 2. N Engl J Med 2020 Vol. 385 Issue 19 Pages 6721-1759 Performed By: #### H JEFFREY CREWS MG, CH8 ####S PATHOLOGY ECSAOXLULZ8128 [place], Glucose [Mass/Vol] 125 mg/dL High 74-109 [facility] Comment on above: Performed By: #### H JEFFREY CREWS MG, CH8 ####S PATHOLOGY FARZJSMWMI2516 [place], Potassium [Moles/Vol] 4.8 mmol/L Normal 3.5-5.0 [facility] Comment on above: Performed By: #### H JEFFREY CREWS MG, CH8 ####S PATHOLOGY NHOLXKORPH0807 [place], Sodium [Moles/Vol] 136 mmol/L Normal 136-145 [facility] Comment on above: Performed By: #### H JEFFREY CREWS MG, CH8 ####S PATHOLOGY DQBHSAVSLD7811 [place], Urea nitrogen [Mass/Vol] 21 mg/dL Normal 7-25 [facility] Comment on above: Performed By: #### H JEFFREY CREWS MG, CH8 ####S PATHOLOGY UICGHORFWV8585 [place], Basic metabolic 2000 panelon 11-27-2024 Anion gap [Moles/Vol] 18 mmol/L 10 - 20 Met [facility] Calcium [Mass/Vol] 9.3 mg/dL 8.6 - 10. 3 mg/dL [facility] Chloride [Moles/Vol] 100 mmol/L 98 - 10 7 mmol/L [facility] CO2 [Moles/Vol] 23 mmol/L 21 - 31 mmol/L [facility] Creatinine [Mass/Vol] 0.8 mg/dL 0.60 - 1.20 mg/dL [facility] GFR/1.73 sq M.predicted CKD-EPI (S/P/Bld) [Vol rate/Area] 101 - PINF [facility] Comment on above: 2020 [...] Inclusion of Race in Diagnosing Kidney Disease. [place] Journal of Kidney Diseases 2021;79(2):268-88.e1. 2. N Engl J Med 1 Vol. 385 Issue 19 Pages 1198-1796 Glucose [Mass/Vol] 125 mg/dL High 74 - [...] (Bld) [#/Vol] 0.08 10*3/uL Normal 0.00-0.20 [facility] Comment on above: Performed By: #### C BCDSAT ####S PATHOLOGY XGJNBPNUJL2787 [place], Basophils/100 WBC (Bld) 0.6 % Normal <=1.9 [facility] Comment on above: Performed By: #### C BCDSAT ####[facility] AYLRFONMWM8587 [place], Eosinophils (Bld) [#/Vol] 0.08 10*3/uL Normal 0.00-0.70 [facility] Comment on above: Performed By: #### C BCDSAT ####[facility] HPIGXHOFWA6367 [place], Eosinophils/100 WBC (Bld) 0.6 % Normal 0.1-4.0 [facility] Comment on above: Performed By: #### C BCDSAT ####[facility] QUYSSNLNJE9088 [place], Erythrocyte distribution width (RBC) [Ratio] 17.4 % High 11.5-14.5 [facility] Comment on above: Performed By: #### C BCDSAT ####[facility] [id number] [place], Hematocrit (Bld) [Volume fraction] 29.7 % Low 36.0-46.0 [facility] Comment on above: Performed By: #### C BCDSAT ####[facility] [id number] [place], Hemoglobin (Bld) [Mass/Vol] 9.8 g/dL Low 12.0-15.0 [facility] Comment on above: Performed By: #### C BCDSAT ####[facility]Y [id number] [place] [address], Lymphocytes (Bld) [#/Vol] 2.46 10*3/uL Normal 1.00-4.80 [facility] Comment on above: Performed By: #### C BCDSAT ####[facility] [address]SC[address] [place] [address], Lymphocytes/100 WBC (Bld) 18.8 % Low 24.0-44.0 [facility] Comment on above: Performed By: #### C BCDSAT ####[facility] DQOHUSVLDK1767 [place], MCH (RBC) [Entitic mass] 26.5 pg Normal 26.0-34.0 [facility] Comment on above: Performed By: #### C BCDSAT ####[facility] PZWTASPERO5461 [place], MCHC (RBC) [Mass/Vol] 32.9 g/dL Normal 32.0-35.9 [facility] Comment on above: Performed By: #### C BCDSAT ####[facility] [id number] [place], [place], MCV (RBC) [Entitic vol] 81 fL Normal 80-100 The [facility] Comment on above: Performed By: #### C BCDSAT ####[facility] [id number] [place], [place], MONOCYTE DISTRIBUTION WIDTH 17 Normal <=20 The [facility] Comment on above: Performed By: #### C BCDSAT ####[facility] [id number] [place], [place], Monocytes (Bld) [#/Vol] 0.71 10*3/uL Normal 0.20-1.00 The [facility] Comment on above: Performed By: #### C BCDSAT ####[facility] [id number] [place], [place], Monocytes/100 WBC (Bld) 5.4 % Normal 2.0-11.0 The [facility] Comment on above: Performed By: #### C BCDSAT ####[facility] [id number] [place], [place], Neutrophils (Bld) [#/Vol] 9.76 10*3/uL High 1.50-8.00 The [facility] Comment on above: Performed By: #### C BCDSAT ####[facility] [id number] [place] [address], Neutrophils/100 WBC (Bld) 74.6 % Normal 31.0-76.0 The [facility] Comment on above: Performed By: #### C BCDSAT ####S PATHOLOGY [id number] [place], Platelet mean volume (Bld) [Entitic vol] 6.5 fL Low 7.5-11.2 The [facility] Comment on above: Performed By: #### C BCDSAT ####S PATHOLOGY [id number] [place], [place], Platelets (Bld) [#/Vol] 913 10*3/uL High 150-400 [facility] Comment on above: Performed By: #### C BCDSAT ####S PATHOLOGY [id number] [place], RBC (Bld) [#/Vol] 3.68 10*6/uL Low 4.00-5.20 [facility] Comment on above: Performed By: #### C BCDSAT ####[facility] [id number] [place], WBC (Bld) [#/Vol] 13.1 10*3/uL High 4.5-11.5 [facility] Comment on above: Performed By: #### C BCDSAT ####[facility] [id number] [place], [place], CT Abdomen and Pelvis W cont rast IVOrdered By: Riccardo Alfredo on 11-27-2024 CT DLP 869.86 (mGycm) [facility] Work Phone: CT Series Abdomen,Abdomen,Abdomen [facility] Work Phone: CTDI VOL 16.16 (mGy) [facility] Work Phone: PHANTOM TYPE IEC Body Dosimetry Phantom [facility] Work Phone: [facility] Work Phone: CT Abdomen and Pelvis W cont rast Grayson 11-27-2024 Riccardo Alfredo MD - 11/27/2024 EXAMINATION: CT ABDOMEN/PELVIS [...] Evolving appearance of the uterus. MACRO: None [facility] Radiology Study observation (narrative) [facility] ED Provider Noteson 11-27-19 25 Refrigeration Insulator Authentication Interface Message Text Attestation signed by [...] Concern for perf bowl d/t drain output Dairy Farmer: not needed - patient preferred language is [place] Islander. This is a 29 year old female [...] re-evaluation the abscess. Discussion with External Provider: Assistant Cross Country Coach from [facility] service recommends IR fistulagram and CT A/P [...] complicate (more content not included)... Normal The [employer] - Smartphone RFID System FL SINOGRAM FISTULAGRAMon FL SINOGRAM FISTULAGRAM EXAMINATION: FL SINOGRAM FISTULAGRAM 11/27/2024 03:02 PM CLINICAL HISTORY: drain studey to evaluate for colon leak ASSOCIATED DIAGNOSIS: ORDERING PROVIDER: TUSHAR MONDRAGON TECHNOLOGISTS NOTE: COMPARISON: CT ABDOMEN/PELVIS W/ CONTRAST 11/19/2024 FLUOROSCOPIST: LUIS MANUEL LOUIE TIME: 1.1 Minutes INTRA-PROCEDURE MEDS: iohexol (OMNIPAQUE) 300 MG/ML injection 50 mL Route: Rectal FINDINGS: Abdominal Director Of Informatics: There is a surgical drain in the right abdomen. Telemetry leads overlying the abdomen. Nonobstructive bowel gas pattern. 50 mL of Omnipaque was administered through the catheter/drain. There is opacification of the right colon. Finding conforms fistulous connection the right colon.. IMPRESSION: Findings consistent with colonic fistula. MACRO: None I have personally reviewed the images and agree with the resident's interpretation. Normal The [employer] Smart[employer] RFID System H AND Estuardo 11-27-2024 Refrigeration Insulator Authentication Interface Message Text Attestation signed by [...] weeks for drain removal. Cortes Meyers MD [facility] DIVISION OF ACUTE CARE SURGERY EMERGENCY [...] an intra-abdominal abscess. Patient was transferred to [facility] on 11/15 for intra-abdominal abscess management. [...] pen (more content not included)... Normal The [employer] Smartphone RFID System HEPATIC FUNCTION PANELon Albumin [Mass/Vol] 3.7 g/dL 3.5 - 5.7 g/dL [facility] ALP [Catalytic activity/Vol] 92 U/L [facility] ALT [Catalytic activity/Vol] 14 U/L [facility] AST [Catalytic activity/Vol] 14 U/L [facility] Bilirubin [Mass/Vol] 0.2 mg/dL Low 0.3 - 1 .0 mg/dL [facility] Bilirubin.direct [Mass/Vol] mg/dL 0.03 - 0.18 mg/dL [facility] Protein [Mass/Vol] 7 g/dL 6.0 - 8.3 g/dL [facility] Albumin [Mass/Vol] 3.7 g/dL Normal 3.5-5.7 [facility] Comment on above: Performed By: #### C ANRBC #### [facility] [address] [place] [address] [place], [place] ALK 92 IU/L Normal 34-104 The [facility] Comment on above: Performed By: #### C ANRBC #### [facility] [address] [place] [address] Dr [place], [place] ALT [Catalytic activity/Vol] 14 U/L Normal 7-52 The [facility] Comment on above: Performed By: #### C ANRBC #### [facility] [address] [place] [address] [place], [place] AST [Catalytic activity/Vol] 14 U/L Normal 13-39 The [facility] Comment on above: Performed By: #### C ANRBC #### [facility] [address] [place] [address] [place], [place] Bilirubin [Mass/Vol] 0.2 mg/dL Low 0.3-1.0 The [facility] Comment on above: Performed By: #### C ANRBC #### [facility] [address] [facility] [place], [place] DBIL < 0.05 Normal 0.03-0.18 The [facility] Comment on above: Performed By: #### C ANRBC #### [facility] [address] [place] [address] [place], [place] Protein [Mass/Vol] 7.0 g/dL Normal 6.0-8.3 The [facility] Comment on above: Performed By: #### C ANRBC #### [facility] [address] [place] [address] Dr [place], [place] LIPASEon 11-27-2024 Interpretation and review of laboratory results Normal [facility] Lipase [Catalytic activity/Vol] 31 U/L [facility] LIP 31 IU/L Normal 11-82 The [facility] Comment on above: Performed By: #### C ANRBC #### [facility] Pathology [address] [facility] [place], [place] MAGNESIUMon 11-27-2024 Magnesium [Mass/Vol] 1.6 mg/dL Low 1.9 - 2 .7 mg/dL [facility] Magnesium [Mass/Vol] 1.6 mg/dL Low 1.9-2.7 The [facility] Comment on above: Performed By: #### C ANRBC #### [facility] Pathology [address] [facility] [place], [place] No Panel Informationon 11-27 Interpretation and review of laboratory results Abnormal [facility] Progress Noteson 11-27-2024 Refrigeration Insulator Authentication Interface Message Text [facility] - STAFF NOTE CC: post-discharge follow-up HPI: Ms. BERNADETTE Faust is a 29 year old woman here for post-discharge follow-up. She was transferred on 11/15/2024 from [facility] to [facility] after placental abruption [...] wa (more content not included)... Normal The [employer] - Smartphone RFID System RF Unspecified body region V iews W contrast via fistulaon 11-27-2024 EXAMINATION: FL SINOGRAM FISTULAGRAM 11/27/2024 03:02 PM CLINICAL HISTORY: drain studey to evaluate for colon leak ASSOCIATED DIAGNOSIS: ORDERING PROVIDER: TUSHAR MONDRAGON TECHNOLOGISTS NOTE: COMPARISON: CT ABDOMEN/PELVIS W/ CONTRAST 11/19/2024 FLUOROSCOPIST: LUIS MANUEL LOUIE TIME: 1.1 Minutes INTRA-PROCEDURE MEDS: iohexol (OMNIPAQUE) 300 MG/ML injection 50 mL Route: Rectal FINDINGS: Abdominal Director Of Informatics: There is a surgical drain in the [...] W/ CONTRAST 11/19/2024 FLUOROSCOPIST: LUIS MANUEL LOUIE FLUORO TIME: 1.1 Minutes INTRA-PROCEDURE MEDS: iohexol (OMNIPAQUE) 300 MG/ML injection 50 mL Route: Rectal FINDINGS: Abdominal Director Of Informatics: There is a surgical drain in the right abdomen. Telemetry leads overlying the abdomen. Nonobstructive bowel gas pattern. 50 mL of Omnipaque was administered through the catheter/drain. There is opacification of the right colon. Finding conforms fistulous connection the right colon.. IMPRESSION: Findings consistent with colonic fistula. MACRO: None I have personally reviewed the images and agree with the resident's interpretation. [facility] Radiology Study observation (narrative) [facility] RF Unspecified body region V iews W contrast via fistulaOrdered By: Bipin Shay on 11-27-2024 [facility] Work Phone: INSULIN ANTIBODIESon 025 Insulin Ab JEFFREY Qn (S) <0.4 NINF - 0.4 U/mL [facility] Resulting Agency Address Site ID: [id number] Name: [facility], Address: [address] [place] [id number] Director: Elaina Michelle MD,PhD,ROSARIO [facility] AEROBIC WOUND CULTUREOrdered By: Pau Cuadra on 11-19-2024 Bacteria identified Cx Nom (Wound) Normal Skin tasha isolated [facility] Microscopic observation Gram stain Nom (Unsp spec) 4+ Polymorphonuclear Leukocytes [facility] Microscopic observation Gram stain Nom (Unsp spec) No Squamous Epithelial Cells seen [facility] Microscopic observation Gram stain Nom (Unsp spec) Mixed polymicrobial tasha seen [facility] Organisms observed i n a gram stain but do not demonstrate growth in culture may be non-viable due to interfering substances (antibiotics) or may be anaerobic. [facility] BASIC METABOLIC PANELon 10-31 Anion gap [Moles/Vol] 14 mmol/L Normal 10-20 [facility] Comment on above: Performed By: #### 8 2948 #### NURSING GLUCOSE PROGRAM [address] [place], [address] Calcium [Mass/Vol] 8.3 mg/dL Low 8.6-10.3 [facility] Comment on above: Performed By: #### 8 2948 #### NURSING GLUCOSE PROGRAM [address] [place], [address] Chloride [Moles/Vol] 100 mmol/L Normal 98-107 [facility] Comment on above: Performed By: #### 8 2948 #### NURSING GLUCOSE PROGRAM [address] [place], [address] CO2 [Moles/Vol] 25 mmol/L Normal 21-31 [facility] Comment on above: Performed By: #### 8 2948 #### NURSING GLUCOSE PROGRAM [address] [place], [address] Creatinine [Mass/Vol] 0.78 mg/dL Normal 0.60-1.20 [facility] Comment on above: Performed By: #### 8 2948 #### NURSING GLUCOSE PROGRAM [address] [place], [address] ESTIMATED GFR (CKD-EPI) 104 mL/min/1.73sqm Normal >=60 [...] Inclusion of Race in Diagnosing Kidney Disease. [place] Journal of Kidney Diseases 2021;79(2):268-88.e1. 2. N Engl J Med 1 Vol. 385 Issue 19 Pages 8150-2252 Performed By: #### 8 2948 #### NURSING GLUCOSE PROGRAM [address] [place], [address] Glucose [Mass/Vol] 113 mg/dL High 74-109 [facility] Comment on above: Performed By: #### 8 2948 #### NURSING GLUCOSE PROGRAM [address] [place], [address] Potassium [Moles/Vol] 4.2 mmol/L Normal 3.5-5.0 [facility] Comment on above: Performed By: #### 8 2948 #### NURSING GLUCOSE PROGRAM [address] [place], [address] Sodium [Moles/Vol] 135 mmol/L Low 136-145 [facility] Comment on above: Performed By: #### 8 2948 #### NURSING GLUCOSE PROGRAM [address] [place], [address] Urea nitrogen [Mass/Vol] 19 mg/dL Normal 7-25 [facility] Comment on above: Performed By: #### 8 2948 #### NURSING GLUCOSE PROGRAM [address] [place], [address] Basic metabolic 2000 panelon 11-19-2024 Anion gap [Moles/Vol] 14 mmol/L 10 - 20 [facility] Calcium [Mass/Vol] 8.3 mg/dL Low 8.6 - [...] Inclusion of Race in Diagnosing Kidney Disease. [place] Journal of Kidney Diseases 202;79(2):268-88.e1. 2. N Engl J Med 2020 Vol. 385 Issue 19 Pages 0368-8751 Glucose [Mass/Vol] 113 mg/dL High 74 - 109 mg/dL [facility] Potassium [Moles/Vol] 4.2 mmol/L 3.5 - 5.0 mmol/L [facility] Sodium [Moles/Vol] 135 mmol/L Low 136 - 145 mmol/L [facility] Urea nitrogen [Mass/Vol] 19 mg/dL 7 - 25 mg/dL [facility] CBC panel Auto (Bld)Ordered By: Gisel Gr on 11-19-2024 Erythrocyte distribution width (RBC) [Ratio] 17.1 % High 11.5 - 14.5 % [facility] Hematocrit (Bld) [Volume fraction] 31.4 % Low 36.0 - 46.0 % [facility] Hemoglobin (Bld) [Mass/Vol] 10 g/dL Low 12.0 - 15.0 g/dL [facility] Interpretation and review of laboratory results Abnormal [facility] MCH (RBC) [Entitic mass] 25.6 pg Low 26.0 - 34.0 pg [facility] MCHC (RBC) [Mass/Vol] 31.8 g/dL Low 32.0 - 35.9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 with a hx of Type II DM and pre-eclampsia who underwent an emergent at 34 weeks for placental abruption (11/06- Baby foreign- osei- baby still in NICU in [facility]). She was worked up at an OSH for RUQ abdominal pain and found to have a RUQ fluid collection con cering for an intra-abdominal abscess. She was transferred to [facility] for possible IR drainage of this collection. Hospital Course/Procedures: 11/15- Transfer from [place], IR drain placed with 30 mL purulent [...] 675 [I.V.:675] Out: 3185 [Urine:3075; Drainage:110] Net: -9040 PHYSICAL EXAM GENERAL: Laying in bed, no [...] o (more content not included)... Normal [facility] AEROBIC WOUND CULTUREon 10-30 AEROBIC WOUND CULTURE C PYOG: Normal Skin tasha isolated GRAM STAIN: 4+ Polymorphonuclear Leukocytes No Squamous Epithelial Cells seen Mixed polymicrobial tasha seen Normal [facility] Comment on above: Order Comment: Organ isms observed in a gram stain but do not demonstrate growth in culture may be non-viable due to interfering substances (antibiotics) or may be anaerobic. Performed By: #### C PYOG ####[facility] [address] [place], [place] ANAEROBIC CULTURE, MISCon ANAEROBIC CULTURE, [facility] C ANRBC: Positive Culture Report BACTEROIDES OVATUS (B. FRAGILIS GROUP) Anaerobic culture yields Bacteroides ovatus (B. fragilis Group) Normal [facility] Comment on above: Order Comment: The organism belongs to the Bacteroides fragilis group which are beta-lactmase producers; therefore Beta-lactmase testing will not be performed for this organism. It should be considered resistant to penicillin, ampicillin and amoxicillin. Performed By: #### C ANRBC #### [facility] Pathology [address] [facility] [address] [place], [place] [address] BASIC METABOLIC PANELon 10-30 Anion gap [Moles/Vol] 15 mmol/L Normal 10-20 [facility] Comment on above: Performed By: #### 8 2948 #### NURSING GLUCOSE PROGRAM [address] [place], [address] Calcium [Mass/Vol] 7.9 mg/dL Low 8.6-10.3 [facility] Comment on above: Performed By: #### 8 2948 #### NURSING GLUCOSE PROGRAM [address] [place], [address] Chloride [Moles/Vol] 101 mmol/L Normal 98-107 [facility] Comment on above: Performed By: #### 8 2948 #### NURSING GLUCOSE PROGRAM [address] [place], [address] CO2 [Moles/Vol] 27 mmol/L Normal 21-31 [facility] Comment on above: Performed By: #### 8 2948 #### NURSING GLUCOSE PROGRAM [address] [place], [address] Creatinine [Mass/Vol] 0.67 mg/dL Normal 0.60-1.20 [facility] Comment on above: Performed By: #### 8 2948 #### NURSING GLUCOSE PROGRAM [address] [place], [address] ESTIMATED GFR (CKD-EPI) 120 mL/min/1.73sqm Normal >=60 [facility] Comment on above: Result Comment: 2020 [...] Inclusion of Race in Diagnosing Kidney Disease. [place] Journal of Kidney Diseases 2021;79(2):268-88.e1. 2. N Engl J Med 1 Vol. 385 Issue 19 Pages 6914-9220 Performed By: #### 8 2948 #### NURSING GLUCOSE PROGRAM [address] [place], [address] Glucose [Mass/Vol] 211 mg/dL High 74-109 [facility] Comment on above: Performed By: #### 8 2948 #### NURSING GLUCOSE PROGRAM [address] [place], [address] Potassium [Moles/Vol] 3.9 mmol/L Normal 3.5-5.0 [facility] Comment on above: Performed By: #### 8 2948 #### NURSING GLUCOSE PROGRAM [address] [place], [address] Sodium [Moles/Vol] 139 mmol/L Normal 136-145 [facility] Comment on above: Performed By: #### 8 2948 #### NURSING GLUCOSE PROGRAM [address] [place], [address] Urea nitrogen [Mass/Vol] 9 mg/dL Normal 7-25 [facility] Comment on above: Performed By: #### 8 2948 #### NURSING GLUCOSE PROGRAM [address] [place], [address] Basic metabolic 2000 panelon 11-15-2024 Anion gap [Moles/Vol] 15 mmol/L 10 - 20 [facility] Calcium [Mass/Vol] 7.9 mg/dL Low 8.6 - 10. 3 mg/dL [facility] Chloride [Moles/Vol] 101 mmol/L 98 - 10 7 mmol/L [facility] CO2 [Moles/Vol] 27 mmol/L 21 - 31 mmol/L [facility] Creatinine [Mass/Vol] 0.67 mg/dL 0.60 - 1.20 mg/dL [facility] GFR/1.73 sq M.predicted CKD-EPI (S/P/Bld) [Vol rate/Area] 120 - PINF [facility] Comment on above: 2020 CKD EPI Equatio [...] Inclusion of Race in Diagnosing Kidney Disease. [place] Journal of Kidney Diseases 202;79(2):268-88.e1. 2. N Engl J Med 2021 Vol. 385 Issue 19 Pages 7376-3855 Glucose [Mass/Vol] 211 mg/dL High 74 - [...] 8 2948 #### NURSING GLUCOSE PROGRAM [address] [place], [address] CBC W/Diff, Automatedon 10-30 PATH REV Reviewed Normal [facility] Comment on above: Result Comment: Neut rophilic leukocytosis with left shift.Microcytic anemia.Clinical correlation necessary.Brian Rivera M.D. 11/15/24 AMENDED REPORT 11/15/24 1413 PATH REV previously reported as: February Performed By: #### L 100.0100, L500.4050, L501.2450 ####[facility] [address] [place], [place], [address] CBC WITH DIFFERENTIALOrdered By: Denzel Begum on [...] vol] 81 fL 80 - 100 fL [facility] Platelet mean volume (Bld) [Entitic vol] 7.3 fL Low 7.5 - 11.2 fL [facility] Platelets (Bld) [#/Vol] 457 10*3/uL High 150 - 400 K/uL [facility] RBC (Bld) [#/Vol] 3.56 10*6/uL Low [facility] WBC (Bld) [#/Vol] 14.5 10*3/uL High 4.5 - 11.5 K/uL [facility] CBC WITH DIFFERENTIALon 10-30 Erythrocyte distribution width (RBC) [Ratio] 17.2 % High 11.5-14.5 [facility] Comment on above: Performed By: #### SRIKANTH FORBES ####[facility] [address]MEIOJMDSG[address] [place] [address], Hematocrit (Bld) [Volume fraction] 28.9 % Low 36.0-46.0 [facility] Comment on above: Performed By: ###SRIKANTH MEI ####[facility] [id number] [place] [address], Hemoglobin (Bld) [Mass/Vol] 9.6 g/dL Low 12.0-15.0 The [facility] Comment on above: Performed By: ###SRIKANTH MEI ####[facility] WRELGPAKGY4531 [place], [place], MCH (RBC) [Entitic mass] 26.9 pg Normal 26.0-34.0 The [facility] Comment on above: Performed By: ###SRIKANTH MEI ####[facility] BDWIEYKPZQ7168 [place], [place], MCHC (RBC) [Mass/Vol] 33.1 g/dL Normal 32.0-35.9 [facility] [facility] Comment on above: Performed By: ###SRIKANTH MEI ####[facility] [id number] [place] [address], MCV (RBC) [Entitic vol] 81 fL Normal 80-100 [facility] Comment on above: Performed By: #### SRIKANTH FORBES ####S PATHOLOGY [id number] [place], [place], Platelet mean volume (Bld) [Entitic vol] 7.3 fL Low 7.5-11.2 [facility] Comment on above: Performed By: #### SRIKANTH FORBES ####S PATHOLOGY [id number] [place], [place], Platelets (Bld) [#/Vol] 457 10*3/uL High 150-400 [facility] Comment on above: Performed By: #### SRIKANTH FORBES ####[facility] [id number] [place], RBC (Bld) [#/Vol] 3.56 10*6/uL Low 4.00-5.20 [facility] Comment on above: Performed By: #### SRIKANTH FORBES ####[facility] [id number] [place], WBC (Bld) [#/Vol] 14.5 10*3/uL High 4.5-11.5 [facility] Comment on above: Performed By: ###SRIKANTH MEI ####[facility] [id number] [place], [place], Erythrocyte distribution width (RBC) [Ratio] 16.9 % High 11.5-14.5 [facility] Comment on above: Performed By: #### T S #### [facility] [address] [place] [address], Hematocrit (Bld) [Volume fraction] 30.7 % Low 36.0-46.0 [facility] Comment on above: Performed By: #### T S #### [facility] [address] [place] [address], Hemoglobin (Bld) [Mass/Vol] 10.2 g/dL Low 12.0-15.0 The [facility] Comment on above: Performed By: #### T S #### [facility] [address] [place] [address], MCH (RBC) [Entitic mass] 26.4 pg Normal 26.0-34.0 The [facility] Comment on above: Performed By: #### T S #### [facility] [address] [place] [address], MCHC (RBC) [Mass/Vol] 33.0 g/dL Normal 32.0-35.9 [facility] Comment on above: Performed By: #### T S #### [facility] [address] [place] [address], MCV (RBC) [Entitic vol] 80 fL Normal 80-100 [facility] Comment on above: Performed By: #### T S #### [facility] [address] [place] [address], Platelet mean volume (Bld) [Entitic vol] 6.2 fL Low 7.5-11.2 [facility] Comment on above: Performed By: #### T S #### [facility] [address] [place] [address], Platelets (Bld) [#/Vol] 360 10*3/uL Normal 150-400 [facility] Comment on above: Performed By: #### T S #### [facility] [address] [place] [address], RBC (Bld) [#/Vol] 3.85 10*6/uL Low 4.00-5.20 [facility] Comment on above: Performed By: #### T S #### [facility] [address] [place] [address], WBC (Bld) [#/Vol] 15.6 10*3/uL High 4.5-11.5 [facility] Comment on above: Performed By: #### T S #### [facility] [address] [place] [address], CBC WITH DIFFERENTIALOrdered By: Antonia Akbar on 11-15-2024 Erythrocyte distribution width (RBC) [Ratio] 16.9 % High 11.5 - 14.5 % [facility] Hematocrit (Bld) [Volume fraction] 30.7 % Low 36.0 - 46.0 % [facility] Hemoglobin (Bld) [Mass/Vol] 10.2 g/dL Low 12.0 - 15.0 g/dL [facility] MCH (RBC) [Entitic mass] 26.4 pg 26.0 - 34.0 pg [facility] MCHC (RBC) [Mass/Vol] 33 g/dL 32.0 - 35.9 g/dL [facility] MCV (RBC) [Entitic vol] 80 fL 80 - 100 fL [facility] Platelet mean volume (Bld) [Entitic vol] 6.2 fL Low 7.5 - 11.2 fL [facility] Platelets (Bld) [#/Vol] 360 10*3/uL 150 - 400 K/uL [facility] RBC (Bld) [#/Vol] 3.85 10*6/uL Low [facility] WBC (Bld) [#/Vol] 15.6 10*3/uL High 4.5 - 11.5 K/uL [facility] CONFIRMATION ABO/RHon 2024 [facility] ABO and Rh group Nom (Bld) Blood group A Rh(D) positive Normal [facility] Comment on above: Performed By: #### A REILLY ####S PATHOLOGY [id number] [place], [address] CT ABDOMEN/PELVIS W/ CONTRAS Ton 11-15-2024 CT [...] s (more content not included)... Normal [facility] CT Abdomen and Pelvis W cont [...] in thickness w (more content not included)... [facility] Radiology Study observation (narrative) [facility] CT Abdomen and Pelvis W cont rast IVOrdered By: Rogelio Benito on 11-15-2024 [facility] Work Phone: CT Guidance for drainage of abscess and placement of drainage catheter of Unspecified body regionon 11-15-2024 Radiology Study observation (narrative) [facility] Care Plan Noteon 11-15-2024 Refrigeration Insulator Authentication Interface Message Text Problem: Routine Care: Goal: Patient care will be managed and maintained throughout hospital stay per unit specific routine care procedure 11/15/20241922 by Jeff Renteria, RN Outcome: Progressing 11/15/2024 1151 by Jeff Renteria, BENTLEY Outcome: Progressing Problem: Hypertensive Disorder in : [...] Progressing Goal: Free from injury during hospitalization 11/15/20243 by Jeff Renteria RN Outcome: Progressing 11/15/2024 1151 by Jeff Renteria RN Outcome: Progressing Problem: Discharge Planning: Goal: Discharge needs of the adult patient will be met 11/15/20241922 by Jeff Renteria RN Outcome: Progressing 11/15/2024 1151 by Jeff Renteria RN Outcome: Progressing Normal [facility] [facility] Evrent Authentication Interface Message Text Problem: Routine Care: [...] will be met Outcome: Progressing Normal [facility] [facility] Evrent Authentication Interface Message Text Problem: Routine Care: [...] for monitoring in High risk. Normal [facility] [facility] Consultson 11-15-2024 Refrigeration Insulator Authentication Interface Message Text SW consult received for: Substance abuse resources/interventions SW attempted to meet with pt. Unable to meet as pt was out for CT scan. Will follow up later today. Addendum: 3:20pm SW attempted to meet with pt again. Pt was going off the floor for a procedure. Genesis Moran [facility] Social Work [phone] Normal [facility] [employer] [facility] Evrent Authentication Interface Message Text PSYCHIATRY CONSULT LIAISON NOTE PROVIDER REQUESTING CONSULT: Adelfo Nice MD Inpatient Floor: APHR 08 - [id number] Reason for Consult: hx Bipolar, reported medications and chart meds discrepancy (medication reconciliation) IDENTIFICATION: BERNADETTE Faust is a 29 year old White female HISTORY OF PRESENT ILLNESS Hospital Course: A 29-year-old at postoperative day 9 following an emergent at 34 weeks for placental abruption and preeclampsia, presents with acutely worsening right upper quadrant pain after transfer from [facility]. Chart reviewed, and from a medical perspective, [...] The patient follows with a psychiatrist in [place], [place], who prescribes lamotrigine 200 mg daily [...] patient [place] currently have a psychiatric provider in [place], but has been attempting to establish care there. Her prescriptions are written and filled in [place]. She denies suicidal ideation, homicidal ideation, or auditory/visual hallucinations. She reports no difficulties with sleep, appetite, or medication side effects. PRN's Received: - none for agitation or anxiety PER CHART REVIEW [facility] 11/06/24 - 11/09/24 The patient was hospitalized at [facility] from November 06 to November 09, 2024, [...] 5 Mg Tablet 28.00 7 Sh Dec [phone] Banda [phone] PSYCHIATRIC REVIEW OF SYSTEMS: As per HPI Suicide Assessment Tool C-SSRS [place]-Suicide Severity Rating Scale Able to complete [place]-Suicide Severity Rating Scale with Patient?: Yes 1) Wish to be : No 2) Current suicidal thoughts: No 6) C-SSRS Suicidal Behavior: No Risk of Suicide: Negative Screen Did patient score moderate or high risk on the C-SSRS?: No SAFE-T PSYCHIATRIC HISTORY: Psychiatric diagnoses: bipolar disorder (self reported), ADHD, anxiety Outpatient psychiatrist/counselor: Leonila [place], [place] (self reported) Inpatient psychiatric admissions (when/why?): none [...] current occupational status: employed 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 Smoking Status: Never smoker alcohol intake: current alcohol intake frequency: holidays/special occasions only substance use type: does not use caffeine: Yes what type of physical activity do you participate in: walking frequency: 3-4 times per week seatbelt use: al (more content not included)... Normal [facility] [facility] Refrigeration Insulator Authentication Interface Message Text Attestation signed by [...] MD Maternal Medicine, Complex Family Planning Pager: [phone] [employer] MAINTENANCE SUPERVISOR CONSULT NOTE 11/15/24 6:53 AM PGY-4 S: [...] Encourage SCDs and ambulation Juany Muhammad MD DATE NIGHT SITTER PGY-4 Normal [facility] [facility] Refrigeration Insulator Authentication Interface Message Text Attestation signed by [...] bot- osei- baby still in NICU in [facility]). She was worked up at an OSH for RUQ abdominal pain and found to have a RUQ fluid collection con cering for an intra-abdominal abscess. She was transferred to [facility] for possible IR drainage of this collection. [...] scan) 3. Risk -High -decision regarding hospitalization [facility] Department of Surgery EMERGENCY GENERAL SURGERY CONSULT NOTE BERNADETTE Faust [id number] Reason for Consultation: Abdominal abscess HPI BERNADETTE [...] yea (more content not included)... Normal [facility] [facility] Diabetes tracking panelon Average glucose Estimated from glycated hemoglobin (Bld) [Mass/Vol] 240 mg/dL [facility] HbA1c (Bld) [Mass fraction] 10 % High 4.0 - 5.6 % [facility] Interpretation and review of laboratory results Abnormal [facility] FIBRINOGENon 11-15-2024 Fibrin+Fibrinogen fragments (S) [Mass/Vol] 793 mg/dL High 200 - 500 mg/dL [facility] Interpretation and review of laboratory results Abnormal [facility] FIBRINOGEN 793 mg/dL High 200-500 The [facility] Comment on above: Performed By: #### A PTT, FIBRINOGEN, PT ####[facility] [id number] [place], [place], GLUCOSE, FINGERSTICK-IN OFFI CEon 11-15-2024 Glucose [Mass/Vol] 150 mg/dL High 74 - 109 mg/dL [facility] Comment on above: Follow Protocol Notified BENTLEY POLLOCK MD Interpretation and review of laboratory results Abnormal [facility] Glucose [Mass/Vol] 150 mg/dL High 74-109 The [facility] Comment on above: Result Comment: Foll ow Protocol Notified BENTLEY POLOLCK MD Performed By: #### 8 2948 #### NURSING GLUCOSE PROGRAM [address] [place], [address] Glucose [Mass/Vol] 83 mg/dL 74 - 109 mg/dL [facility] Interpretation and review of laboratory results Normal [facility] Glucose [Mass/Vol] 83 mg/dL Normal 74-109 [facility] Comment on above: Performed By: #### C ANRBC #### [facility] [address] [facility] [place], [place] [address] Glucose [Mass/Vol] 137 mg/dL High 74 - 109 mg/dL [facility] Interpretation and review of laboratory results Abnormal [facility] Glucose [Mass/Vol] 137 mg/dL High 74-109 [facility] Comment on above: Performed By: #### T S #### [facility] [address] [place], [address] Glucose [Mass/Vol] 213 mg/dL High 74 - 109 mg/dL [facility] Interpretation and review of laboratory results Abnormal [facility] Glucose [Mass/Vol] 213 mg/dL High 74-109 [facility] Comment on above: Performed By: #### C ANRBC #### [facility] [address] [facility] [place], [place] [address] Glucose [Mass/Vol] 128 mg/dL High 74 - 109 mg/dL [facility] Interpretation and review of laboratory results Abnormal [facility] Glucose [Mass/Vol] 128 mg/dL High 74-109 [facility] Comment on above: Performed By: #### 8 2948 ####NURSING GLUCOSE [id number] [place], [address] Glucose [Mass/Vol] 198 mg/dL High 74 - 109 mg/dL [facility] Interpretation and review of laboratory results Abnormal [facility] Glucose [Mass/Vol] 198 mg/dL High 74-109 [facility] Comment on above: Performed By: #### 8 2408 ####NURSING GLUCOSE [id number] [place], [address] Glucose [Mass/Vol] 203 mg/dL High 74 - 109 mg/dL [facility] Comment on above: Follow Protocol Interpretation and review of laboratory results Abnormal [facility] Glucose [Mass/Vol] 203 mg/dL High 74-109 [facility] Comment on above: Result Comment: Arnol ow Protocol Performed By: #### 8 2488 #### NURSING GLUCOSE PROGRAM [address] [place], [address] Glucose [Mass/Vol] 225 mg/dL High 74 - 109 mg/dL [facility] Comment on above: Follow Protocol Notified BENTLEY POLLOCK MD Interpretation and review of laboratory results Abnormal [facility] Glucose [Mass/Vol] 225 mg/dL High 74-109 [facility] Comment on above: Result Comment: Arnol jackson Protocol Notified BENTLEY POLLOCK MD Performed By: #### 8 0841 #### NURSING GLUCOSE PROGRAM [address] [place], [address] HEMOGLOBIN A1Con 11-15-2024 Glucose [Mass/Vol] 240 mg/dL Normal [facility] Comment on above: Performed By: #### 8 2733 #### NURSING GLUCOSE PROGRAM [address] [place], [address] HbA1c (Bld) [Mass fraction] 10.0 % High 4.0-5.6 [facility] Comment on above: Performed By: #### 8 8443 #### NURSING GLUCOSE PROGRAM [address] [place], [address] HEPATIC FUNCTION PANELon Albumin [Mass/Vol] 2.4 g/dL Low 3.5 - 5.7 g/dL [facility] ALP [Catalytic activity/Vol] 133 U/L High [facility] ALT [Catalytic activity/Vol] 11 U/L [facility] AST [Catalytic activity/Vol] 15 U/L [facility] Bilirubin [Mass/Vol] 0.3 mg/dL 0.3 - 1 .0 mg/dL [facility] Bilirubin.direct [Mass/Vol] 0.07 mg/dL 0.03 - 0.18 mg/dL [facility] Protein [Mass/Vol] 5.3 g/dL Low 6.0 - 8.3 g/dL [facility] Albumin [Mass/Vol] 2.4 g/dL Low 3.5-5.7 [facility] Comment on above: Performed By: #### 8 2948 #### NURSING GLUCOSE PROGRAM [address] [place] [address], [address] ALK 133 IU/L High 34-104 [facility] Comment on above: Performed By: #### 8 2948 #### NURSING GLUCOSE PROGRAM [address] [place] [address], [address] ALT [Catalytic activity/Vol] 11 U/L Normal 7-52 [facility] Comment on above: Performed By: #### 8 2948 #### NURSING GLUCOSE PROGRAM [address] [place], [address] AST [Catalytic activity/Vol] 15 U/L Normal 13-39 [facility] Comment on above: Performed By: #### 8 2948 #### NURSING GLUCOSE PROGRAM [address] [place], [address] Bilirubin [Mass/Vol] 0.3 mg/dL Normal 0.3-1.0 [facility] Comment on above: Performed By: #### 8 2948 #### NURSING GLUCOSE PROGRAM [address] [place], [address] Bilirubin.direct [Mass/Vol] 0.07 mg/dL Normal 0.03-0.18 [facility] Comment on above: Performed By: #### 8 2948 #### NURSING GLUCOSE PROGRAM [address] [place], [address] Protein [Mass/Vol] 5.3 g/dL Low 6.0-8.3 [facility] Comment on above: Performed By: #### 8 2948 #### NURSING GLUCOSE PROGRAM [address] [place], [address] HIV 1 and 2 Ab and HIV 1 p24 Ag panel IAon 11-15-2024 HIV 1+2 Ab+HIV1 p24 Ag IA Ql Non-Reactive Non-Reactive [facility] Comment on above: No laboratory eviden ce for HIV Infection. Negative result does not rule out acute HIV infection. If acute HIV infection is suspected, recommend ordering an HIV-1 RNA quanitification test. Interpretation and review of laboratory results Normal [facility] HIV Information: [place] Rev. code 3701.243(E): This information has been [...] release of HIV test results or diagnoses. [facility] HIV AG-AB SCREEN Non-Reactive Normal Non-Reactive [facility] Comment on above: Order Comment: HIV I nformation: ???[place] Rev. code 3701.243(E):This information has been disclosed [...] 8 2948 #### NURSING GLUCOSE PROGRAM [address] [place], [address] HIV-1 RNA PCR, QUANTITATIVEo n 11-15-2024 HIV 1 RNA SAE+probe [#/Vol] Not detected [facility] This test is perform ed by a quantitative polymerase chain reaction (PCR) method (david 5800 System HIV-1, [employer] [place], [place].) that is intended [...] HIV-1 RNA for Nucleic Acid-Based Techniques (FABIÁN) ([facility] 97/656). [facility] INSULINon 11-15-2024 Insulin Free Qn 5.2 [facility] Interpretation and review of laboratory results Normal [facility] INSUL 5.2 mIU/L Normal 2.0-25.0 [facility] Comment on above: Performed By: #### 8 2948 #### NURSING GLUCOSE PROGRAM [address] [place], [address] INSULIN ANTIBODIESon 025 INSULIN ANTIBODY <0.4 Normal <0.4 [facility] Comment on above: Order Comment: [facility] Agency Address Site ID: [id number] Name: [facility], Address: [address] [place] [id number] Director: Elaina Michelle MD,PhD,ROSARIO Performed By: #### 8 2948 #### NURSING GLUCOSE PROGRAM [address] [place], [address] LACTIC ACIDOrdered By: Danelle Vieira on 11-15-2024 Interpretation and review of laboratory results Normal [facility] Lactate [Moles/Vol] 1.3 mmol/L 0.5 - 1. 6 mmol/L [facility] This test was developed, and its performance characteristics determined by the Department of Pathology of The [facility]. It has not been cleared or approved by the FDA. This test is used for clinical purposes only. [facility] LACTIC ACIDon 11-15-2024 CR LACT 1.3 mmol/L Normal 0.5-1.6 [facility] Comment on above: Order Comment: This test was developed, and its performance characteristics determined by the Department of Pathology of [facility]. It has not been cleared or approved by the FDA. This test is used for clinical purposes only. Performed By: #### L ACT ####[facility] [id number] [place], [address] LDHon 11-15-2024 LDH [Catalytic activity/Vol] 252 U/L [facility] LD 252 IU/L Normal 140-271 [facility] Comment on above: Performed By: #### 8 2948 #### NURSING GLUCOSE PROGRAM [address] [place], [address] Laboratory - Blood bankon ABO and Rh group Nom (Bld) Blood group A Rh(D) positive [facility] MANUAL DIFF AND MORPHon 10-30 ANC 11.61 K/uL [facility] Band form neutrophils/100 WBC (Bld) 3 % NINF - 10 % [facility] Bands # 0.44 K/uL High NINF - 0.01 K/uL [facility] Meseret cells LM Ql (Bld) Few Me [facility] [...] Comment on above: Performed By: #### C MD TAMIIFF ####[facility] [id number] [place], [place], BANDS % BY MANUAL COUNT 3 % Normal <=10 [facility] Comment on above: Performed By: #### SRIKANTH FORBES ####[facility] [id number] [place], BANDS ABS BY MANUAL COUNT 0.44 K/uL High <0.01 [facility] Comment on above: Performed By: #### SRIKANTH FORBES ####S PATHOLOGY [id number] [place], [place], MESERET CELLS Few Normal [facility] Comment on above: Performed By: #### SRIKANTH FORBES ####S PATHOLOGY [id number] [place] [address], CELLS COUNTED TOTAL # IN BLOOD 100 Normal [facility] Comment on above: Performed By: #### SRIKANTH FORBES ####S PATHOLOGY [id number] [place], FRAGMENTED RBC Few Normal [facility] Comment on above: Performed By: #### SRIKANTH FORBES ####S PATHOLOGY [id number] [place], LYMPHOCYTES % BY MANUAL COUNT 14.0 % Low 24.0-44.0 [facility] Comment on above: Performed By: #### SRIKANTH FORBES ####S PATHOLOGY [id number] [place], LYMPHOCYTES ABS BY MANUAL COUNT 2.03 K/uL Normal 1.00-4.80 [facility] Comment on above: Performed By: #### SRIKANTH FORBES ####S PATHOLOGY [id number] [place], MONOCYTES % BY MANUAL COUNT 6.0 % Normal 2.0-11.0 [facility] Comment on above: Performed By: #### SRIKANTH FORBES ####[facility] [id number] [place], MONOCYTES ABS BY MANUAL COUNT 0.87 K/uL Normal 0.20-1.00 [facility] Comment on above: Performed By: #### SRIKANTH FORBES ####S PATHOLOGY [id number] [place], NEUTROPHILS % BY MANUAL COUNT 77.0 % High 31.0-76.0 [facility] Comment on above: Performed By: #### SRIKANTH FORBES ####S PATHOLOGY [id number] [place], NEUTROPHILS ABS BY MANUAL COUNT 11.17 K/uL High 1.50-8.00 [facility] Comment on above: Performed By: #### SRIKANTH FORBES ####[facility] [id number] [place], OVALOCYTES Few Normal [facility] Comment on above: Performed By: #### SRIKANTH FORBES ####[facility] [id number] [place] [address], SPHEROCYTES Few Normal [facility] Comment on above: Performed By: #### SRIKANTH FORBES ####[facility] [id number] [place], STOMATOCYTES Few Normal [facility] Comment on above: Performed By: ###SRIKANTH MEI ####[facility] [id number] [place], Anisocytosis Ql (Bld) Slight [facility] [...] (Bld) 3 % 2.0 - 11.0 % [facility] Neutrophils (Bld) [#/Vol] 12.64 10*3/uL High 1.50 - 8.00 K/uL [facility] Neutrophils/100 WBC (Bld) 81 % High 31.0 - 76.0 % [facility] Ovalocytes LM Ql (Bld) Few Me [facility] ANISOCYTOSIS Slight Normal [facility] Comment on above: Performed By: #### T S #### S PATHOLOGY LABORATORY [address] [place] [address], CELLS COUNTED TOTAL # IN BLOOD 100 Normal [facility] Comment on above: Performed By: #### T S #### S PATHOLOGY LABORATORY [address] [place] [address], EOSINOPHILS % BY MANUAL COUNT 1.0 % Normal 0.1-4.0 The [facility] Comment on above: Performed By: #### T S #### [facility] [address] [place] [address], EOSINOPHILS ABS BY MANUAL COUNT 0.16 K/uL Normal 0.00-0.70 The [facility] Comment on above: Performed By: #### T S #### [facility] [address] [place] [address], LYMPHOCYTES % BY MANUAL COUNT 15.0 % Low 24.0-44.0 The [facility] Comment on above: Performed By: #### T S #### S PATHOLOGY LABORATORY [address] [place] [address], LYMPHOCYTES ABS BY MANUAL COUNT 2.34 K/uL Normal 1.00-4.80 The [facility] Comment on above: Performed By: #### T S #### S PATHOLOGY LABORATORY [address] [place] [address], MONOCYTES % BY MANUAL COUNT 3.0 % Normal 2.0-11.0 The [facility] Comment on above: Performed By: #### T S #### S PATHOLOGY LABORATORY [address] [place] [address], MONOCYTES ABS BY MANUAL COUNT 0.47 K/uL Normal 0.20-1.00 The [facility] Comment on above: Performed By: #### T S #### S PATHOLOGY LABORATORY [address] [place], [place], NEUTROPHILS % BY MANUAL COUNT 81.0 % High 31.0-76.0 The [facility] Comment on above: Performed By: #### T S #### S PATHOLOGY LABORATORY [address] [place], NEUTROPHILS ABS BY MANUAL COUNT 12.64 K/uL High 1.50-8.00 The [facility] Comment on above: Performed By: #### T S #### S PATHOLOGY LABORATORY [address] [place], [place], OVALOCYTES Few Normal [facility] Comment on above: Performed By: #### T S #### [facility] [address] [place] [address], No Panel InformationOrdered By: Denzel Begum on 11-15-2024 Interpretation and review of laboratory results Abnormal [facility] No Panel InformationOrdered By: Antonia Akbar on 11-15-2024 Interpretation and review of laboratory results Abnormal [facility] No Panel Informationon 11-15 Interpretation and review of laboratory results Normal [facility] Interpretation and review of laboratory results Abnormal [facility] Interpretation and review of laboratory results Normal [facility] PARTIAL THROMBOPLASTIN TIMEo n 11-15-2024 aPTT Coag (Bld) [Time] [address] [facility] aPTT Coag (Bld) [Time] 27 s Normal 25-37 Th e [facility] Comment on above: Performed By: #### A PTT, FIBRINOGEN, PT ####[facility] [id number] [place], [place], PROTHROMBIN TIME AND INRon 0 11-15-2024 INR Coag (PPP) [Relative time] 1.04 {INR} 0.90 - 1.10 [facility] PT Coag (PPP) [Time] 11.7 s [facility] INR Coag (PPP) [Relative time] 1.04 {INR} Normal 0.90-1.10 The [facility] Comment on above: Performed By: #### A PTT, FIBRINOGEN, PT ####S PATHOLOGY [id number] [place], [place], PT Coag (PPP) [Time] 11.7 s Normal 9.7-12.9 The [facility] [employer] [facility] Comment on above: Performed By: #### A PTT, FIBRINOGEN, PT ####[facility] [id number] [place], [place], Progress Noteson 11-15-2024 [employer]ulator Authentication Interface Message Text Upon patient leaving room with transport to interventional radiology, patient asked if someone could call support person and update them on what's going on. Patient gave this nurse permission to share and discuss PHI with Samuel Perez at [phone]. If that is not the correct number patient suggested to try calling [phone] The above conversation was shared with Dr Muhammad. Normal [facility] [facility] Refrigeration Insulator Authentication Interface Message Text Attestation signed by Vitaly [...] and Emergency General Surgery Department of Surgery [facility] ------- GENERAL INFORMATION ------ EMERGENCY GENERAL SURGERY NOTE Patient Name: BERNADETTE Faust Admission Date: 11/14/2024 Patient seen and examined on 11/15/2024 ----- INTERVAL HISTORY/EVENTS --- Background Narrative: Ms Faust is a 29 yo F with a hx of Type II DM and pre-eclampsia who underwent an emergent at 34 weeks for placental abruption (11/06- Baby bot- osei- baby still in NICU in [facility]). She was worked up at an OSH for RUQ abdominal pain and found to have a RUQ fluid collection con cering for an intra-abdominal abscess. She was transferred to [facility] for possible IR drainage of this collection. Hospital Course/Procedures: 11/15- transfer from [facility] in last 24 hours: On [...] subsegment (more content not included)... Normal The [employer] Interface Message Text 0500: RN at bedside to perform blood cultures. Pt sates she wants someone to use an ultrasound because she has already been poked several times and does not want to be pin cushion. Pt showed RN her arms with several spots of bruising from previous IV attempts at the previous hospital. RN contacted [facility] AND [facility] residential support specialist to attempt, resident requested medical staff director to attempt first. RN contacted rapid response team and was told there are three other pts ahead of her and to see if we could attempt them in the mean time. Pt refused medical staff director to attempt without ultrasound. Kenan Carrasco MD notified of difficulty getting blood cultures. 0530: RN contacted [facility] AND [facility] residential support specialist to attempt after pt refused any attempt without ultrasound. Anesthesia came to bedside to attempt but was unsuccessful. Kenan Carrasco MD and Jeffrey Streeter MD notified. Okay to discontinue trying at this time and give the pt a break. RN will pass along to dayshift RN to attempt again later in the day. Normal The [employer] Interface Message Text 0420: pts repeat blood sugar 198. Kenan Marc MD notified. No new orders at this time. Okay to use this blood sugar reading for fasting blood sugar reading as well. Per Kenan Carrasco MD Normal The [employer] Interface Message Text 0314: pt BS 206. 2 units of insulin lispro ordered. Will recheck BS 1 hour after administering. Normal The [facility] [facility] Refrigeration Insulator Authentication Interface Message Text ACS Attending Attestation Teaching [...] bot- osei- baby still in NICU in [facility]). She was worked up at an OSH for RUQ abdominal pain and found to have a RUQ fluid collection con cering for an intra-abdominal abscess. She was transferred to [facility] for possible IR drainage of this collection. [...] Risk -High -decision regarding hospitalization Normal [facility] Progress Notes - NoteWritero n 11-15-2024 [employer] Authentication Interface Message Text Pt down to CT. S/P general surgery attending assessed pt. Normal The [facility] TOX SCREEN W/CONFIRM - OB/GY Non 11-15-2024 ALCOHOL - TOX W/ CONF Negative Normal Cutoff: 10 The [facility] [facility] Comment on above: Order Comment: Scree n results are reported as positive (at or above the cutoff) or negative (below the cutoff).The LC-MS/MS testing (if applicable) was developed and its performance characteristics determined by The [facility] [facility] in a manner consistent with CLIA requirements. This test has not been cleared or approved by the U.S. Food and Drug Administration; however, the FDA has determined that such clearance or approval is not necessary. Performed By: #### o bgyntox ####[facility] [id number] [place], [place], AMPH CL Negative Normal Cutoff: 1000 The [facility] [facility] Comment on above: Order Comment: Scree n results are reported as positive (at or above the cutoff) or negative (below the cutoff).The LC-MS/MS testing (if applicable) was developed and its performance characteristics determined by The [employer] [facility] in a manner consistent with CLIA requirements. This test has not been cleared or approved by the U.S. Food and Drug Administration; however, the FDA has determined that such clearance or approval is not necessary. Performed By: #### o bgyntox ####[facility] [id number] [place], [place], SOLA CL Negative Normal Cutoff: 200 The [facility] [facility] Comment on above: Order Comment: Scree n results are reported as positive (at or above the cutoff) or negative (below the cutoff).The LC-MS/MS testing (if applicable) was developed and its performance characteristics determined by The [employer] [facility] in a manner consistent with CLIA requirements. This test has not been cleared or approved by the U.S. Food and Drug Administration; however, the FDA has determined that such clearance or approval is not necessary. Performed By: #### o bgyntox ####[facility] [id number] [place], [place], BENZO CL Negative Normal Cutoff: 200 The [facility] Comment on above: Order Comment: Scree [...] Performed By: #### o bgyntox ####S PATHOLOGY [id number] [place], [place], COCAINE CL- TOX W/ CONF Negative [...] not necessary. Performed By: #### o bgyntox ####[facility] [id number] [place], [place], FENTANYL Negative Normal Cutoff: 1 [facility] Comment on above: Order [...] not necessary. Performed By: #### o bgyntox ####[facility] [id number] [place], HYDROMORPHONE CONFIRMATION Positive Abnormal Cutoff: 300 [facility] Comment on above: Order Comment: Scree n results are reported as positive (at or above the cutoff) or negative (below the cutoff).The LC-MS/MS testing (if applicable) was developed and its performance characteristics determined by The [facility] in a manner consistent with CLIA requirements. This test has not been cleared or approved by the U.S. Food and Drug Administration; however, the FDA has determined that such clearance or approval is not necessary. Performed By: #### o bgyntox ####[facility] [id number] [place], [place], METH CL Negative Normal Cutoff: 300 The [facility] [facility] Comment on above: Order Comment: Scree n results are reported as positive (at or above the cutoff) or negative (below the cutoff).The LC-MS/MS testing (if applicable) was developed and its performance characteristics determined by The [employer] [facility] in a manner consistent with CLIA requirements. This test has not been cleared or approved by the U.S. Food and Drug Administration; however, the FDA has determined that such clearance or approval is not necessary. Performed By: #### o bgyntox ####S PATHOLOGY [id number] [place], [place], MORPHINE CONFIRMATION Positive Abnormal Cutoff: 300 Th e [facility] Comment on above: Order Comment: Scree n results are reported as positive (at or above the cutoff) or negative (below the cutoff).The LC-MS/MS testing (if applicable) was developed and its performance characteristics determined by The [facility] [facility] in a manner consistent with CLIA requirements. This test has not been cleared or approved by the U.S. Food and Drug Administration; however, the FDA has determined that such clearance or approval is not necessary. Performed By: #### o bgyntox ####S PATHOLOGY [id number] [place], [place], OPI CL Positive Abnormal Cutoff: 300 The [facility] [facility] Comment on above: Order Comment: Scree n results are reported as positive (at or above the cutoff) or negative (below the cutoff).The LC-MS/MS testing (if applicable) was developed and its performance characteristics determined by The [employer] [facility] in a manner consistent with CLIA requirements. This test has not been cleared or approved by the U.S. Food and Drug Administration; however, the FDA has determined that such clearance or approval is not necessary. Performed By: #### o bgyntox ####S PATHOLOGY [id number] [place], [place], OXYCODONE Negative Normal Cutoff: 100 The [facility] [facility] Comment on above: Order Comment: Scree n results are reported as positive (at or above the cutoff) or negative (below the cutoff).The LC-MS/MS testing (if applicable) was developed and its performance characteristics determined by The [facility] [employer] [facility] in a manner consistent with CLIA requirements. This test has not been cleared or approved by the U.S. Food and Drug Administration; however, the FDA has determined that such clearance or approval is not necessary. Result Comment: Oxyc odone and metabolites of Oxycodone (Oxymorphone, Noroxycodone, and Noroxymorphone) are measured/detected in this assay method. Performed By: #### o bgyntox ####[facility] [id number] [place], [place], PCP CL Negative Normal Cutoff: 25 [facility] Comment on above: Order Comment: Scree n results are reported as positive (at or above the cutoff) or negative (below the cutoff).The LC-MS/MS testing (if applicable) was developed and its performance characteristics determined by The [employer] [facility] in a manner consistent with CLIA requirements. This test has not been cleared or approved by the U.S. Food and Drug Administration; however, the FDA has determined that such clearance or approval is not necessary. Performed By: #### o bgyntox ####[facility] [id number] [place], [place], THC CL - TOX W/ CONF Negative Normal Cutoff: 50 The [facility] [facility] Comment on above: Order Comment: Scree n results are reported as positive (at or above the cutoff) or negative (below the cutoff).The LC-MS/MS testing (if applicable) was developed and its performance characteristics determined by The [employer] [facility] in a manner consistent with CLIA requirements. This test has not been cleared or approved by the U.S. Food and Drug Administration; however, the FDA has determined that such clearance or approval is not necessary. Performed By: #### o bgyntox ####[facility] [id number] [place], [place], TYPE AND SCREENon 11-15-2024 ABO and Rh group Nom (Bld) Blood group A Rh(D) positive [facility] ABO and Rh group Nom (Bld) No Previous Results [facility] Blood group antibody screen Ql Negative [facility] ABO and Rh group Nom (Bld) Blood group A Rh(D) positive Normal [facility] Comment on above: Performed By: #### 8 2948 #### NURSING GLUCOSE PROGRAM [address] [place], [address] ABO and Rh group Nom (Bld) No Previous Results Normal [facility] Comment on above: Performed By: #### 8 2948 #### NURSING GLUCOSE PROGRAM [address] [place], [address] ABSC INT Negative Normal [facility] Comment on above: Performed By: #### 8 2948 #### NURSING GLUCOSE PROGRAM [address] [place], [address] URIC ACIDon 11-15-2024 Urate [Mass/Vol] 3.6 mg/dL 2.3 - 6.6 mg/dL [facility] Urate [Mass/Vol] 3.6 mg/dL Normal 2.3-6.6 [facility] Comment on above: Performed By: #### 8 2948 #### NURSING GLUCOSE PROGRAM [address] [place], [address] US RETROPERITONEAL LIMITEDon 11-15-2024 US RETROPERITONEAL LIMITED EXAMINATION: US RETROPERITONEAL LIMITED 11/15/2024 09:45 AM CLINICAL HISTORY: RUQ abscess ASSOCIATED DIAGNOSIS: Pre-eclampsia, antepartum ([facility]) ORDERING PROVIDER: JUANY MUHAMMAD COMPARISON: CT BODY [...] rectal contrast suggested. MACRO: None Normal [facility] US Retroperitoneum limitedon 11-15-2024 EXAMINATION: US [...] CT with rectal contrast suggested. MACRO: None [facility] Radiology Study observation (narrative) [facility] US Retroperitoneum limitedOr dered By: Ambrocio Joyner on 11-15-2024 [employer] [facility] [facility] Work Phone: XR ABDOMEN AP 1 VIEWon [...] into this region. MACRO: None Normal [facility] [facility] XR Abdomen APon 11-15-2024 EXAMINATION: XR [...] contrast extravasation into this region. MACRO: None [facility] Study observation (narrative) [facility] [facility] XR Abdomen APOrdered By: Emigdio Seals on 11-15-2024 [employer] [facility] [facility] Work Phone: Abdomen/Pel W ORAL Cont Only on 11-14-2024 Abdomen/Pel W ORAL Cont Only Normal [facility] Abdomen/Pelvis W IV Cont ONL Yon 11-14-2024 Abdomen/Pelvis W IV Cont ONLY Normal [facility] Comprehensive Metabolic Prof ilon 11-14-2024 Albumin [Mass/Vol] 1.5 g/dL Low 3.2-5.0 [facility] Comment on above: Performed By: #### L 100.0100, L500.4050, L501.2450 ####[facility] [address] [place], [place], [address] Albumin/Globulin [Mass ratio] 0.3 {ratio} Low 0.9-2.4 [facility] Comment on above: Performed By: #### L 100.0100, L500.4050, L501.2450 ####[facility] [address] [place], [address] ALK P 164 U/L High 45-117 [facility] Comment on above: Performed By: #### L 100.0100, L500.4050, L501.2450 ####[facility] [address] [place], [address] ALT [Catalytic activity/Vol] 15 U/L Normal 13-56 [facility] Comment on above: Performed By: #### L 100.0100, L500.4050, L501.2450 ####[facility] [address] [place], [address] AST [Catalytic activity/Vol] 16 U/L Normal 15-37 [facility] Comment on above: Performed By: #### L 100.0100, L500.4050, L501.2450 ####[facility] [address] [place], [address] Bilirubin [Mass/Vol] 0.30 mg/dL Normal 0.20-1.00 [facility] Comment on above: Result Comment: For patients on eltrombopag therapy, use of Dimension [place] TBIL is not recommended. Performed By: #### L 100.0100, L500.4050, L501.2450 ####[facility] [address] [place], [address] BUN/CRE 9.6 RATIO Low 10-20 [facility] Comment on above: Performed By: #### L 100.0100, L500.4050, L501.2450 ####[facility] [address] [place], [address] CA,Total 9.0 mg/dL Normal 8.5-10.1 [facility] Comment on above: Performed By: #### L 100.0100, L500.4050, L501.2450 ####[facility] [address] [place], [address] Chloride [Moles/Vol] 99 mmol/L Normal 98-107 [facility] Comment on above: Performed By: #### L 100.0100, L500.4050, L501.2450 ####[facility] [address] [place], [address] CO2 [Moles/Vol] 22.0 mmol/L Normal 21.0-32.0 [facility] Comment on above: Performed By: #### L 100.0100, L500.4050, L501.2450 ####[facility] [address] [place], [address] Creatinine [Mass/Vol] 0.63 mg/dL Normal 0.55-1.02 [facility] Comment on above: Result Comment: The validity of the calculated GFR GFRAA in patients over70 years has not been determined. Clinical correlation isessential. Performed By: #### L 100.0100, L500.4050, L501.2450 ####[facility] [address] [place], [address] ECRCL 132.12 ml/min Normal [facility] Comment on above: Performed By: #### L 100.0100, L500.4050, L501.2450 ####[facility] [address] [place], [address] EST GFR - AA 142 mL/min Normal >60 [facility] Comment on above: Result Comment: Afri can [place]ian GFR Calc Performed By: #### L 100.0100, L500.4050, L501.2450 ####[facility] [address] [place], [address] GAP 10 Normal 5-15 [facility] Comment on above: Performed By: #### L 100.0100, L500.4050, L501.2450 ####[facility] [address] [place], [address] GFR/1.73 sq M.predicted among non-blacks MDRD (S/P/Bld) [Vol rate/Area] 117 mL/min/{1.73_m2} Normal >60 [facility] Comment on above: Result Comment: Non- GFR Calc Performed By: #### L 100.0100, L500.4050, L501.2450 ####[facility] [address] [place], [address] Globulin (S) [Mass/Vol] 4.8 g/dL High 2.2-4.2 [facility] Comment on above: Performed By: #### L 100.0100, L500.4050, L501.2450 ####[facility] [address] [place], [address] Glucose [Mass/Vol] 376 mg/dL High 74-106 [facility] Comment on above: Result Comment: Gluc ose result greater than or equal to 200 mg/dLsuggests DIABETES MELLITUS per A.D.A. criteria. Performed By: #### L 100.0100, L500.4050, L501.2450 ####[facility] [address] [place], [address] Potassium [Moles/Vol] 4.0 mmol/L Normal 3.5-5.1 [facility] Comment on above: Performed By: #### L 100.0100, L500.4050, L501.2450 ####[facility] [address] [place], [address] Sodium [Moles/Vol] 131 mmol/L Low 136-145 [facility] Comment on above: Performed By: #### L 100.0100, L500.4050, L501.2450 ####[facility] [address] [place], [address] T PROT 6.3 g/dL Low 6.4-8.2 [facility] Comment on above: Performed By: #### L 100.0100, L500.4050, L501.2450 ####[facility] [address] [place], [address] Urea nitrogen [Mass/Vol] 6 mg/dL Low 7-18 [facility] Comment on above: Performed By: #### L 100.0100, L500.4050, L501.2450 ####[facility] [address] [place], [address] Emergency Department Summary on 11-14-2024 Emergency Department Summary Normal [facility] HIV-1 RNA PCR, QUANTITATIVEo n 11-14-2024 VIR QNT (ND) Not detected Normal [facility] Comment on above: Order Comment: The organism belongs to the Bacteroides fragilis group which are beta-lactmase producers; therefore Beta-lactmase testing will not be performed for this organism. It should be considered resistant to penicillin, ampicillin and amoxicillin. Performed By: #### C ANRBC #### [facility] Pathology [address] [facility] [place], [place] [address] Lipaseon 11-14-2024 Lipase [Catalytic activity/Vol] 22 U/L Normal 13-75 [facility] Comment on above: Result Comment: Alba cano note:LIPASE revised reference range effective 23.New Lipase methodology. Expected to produce lower valuesthan the previous assay method.NEW Reference Range: 13 - 75 U/L Performed By: #### L 100.0100, L500.4050, L501.2450 ####[facility] [address] [place], [address] Partial Thromboplast Timeon 11-14-2024 aPTT Coag (Bld) [Time] 28.3 s Normal 24.1-36.2 [facility] [place] [facility] Comment on above: Performed By: #### L 300.3900, L300.4310 ####[facility] [address] [place], [place], [address] Progress Noteson 11-14-2024 Refrigeration Insulator Authentication Interface Message Text 29 year old , OB History Para Term AB Living 1 0 0 0 0 0 SAB IAB Ectopic Multiple Live Births 0 0 0 0 0 Unknown seen today in Triage # 1 for C/O transfer via em[facility] from [facility]. HTN and right upper abdominal pain post c/s on 11/06/24 Is BERNADETTE Faust involved in any research studies? No If patient smokes, does she desire information/assistance to quit? N/A - Doesn't smoke No current facility-administered medications on file prior to encounter. No current outpatient medications on file prior to encounter. Dr. Carrasco aware of pt arrival and chief complaints Normal [employer] Smart[employer] System Prothrombin Time w/INRon INR Coag (PPP) [Relative time] 1.0 {INR} Normal [facility] Comment on above: Performed By: #### L 300.3900, L300.4310 ####[facility] [address] [place], [place], [id number] PT Coag (PPP) [Time] 13.3 s Normal 11.7-14.9 [facility] Comment on above: Performed By: #### L 300.3900, L300.4310 ####[facility] [address] [place], [address] Type AND Screenon 11-14-2024 Ab SCREEN GEL Negative Normal [facility] Comment on above: Order Comment: A Performed By: #### B TS ####[facility] [address] [place], [address] Urinalysis, Completeon 11-14 RBC 0-5 SEEN Normal 0-5 [facility] Comment on above: Order Comment: CLEAN CATCH Performed By: #### L 400.0001 ####[facility] [address] [place], [address] WBC 0-5 SEEN Normal 0-5 [facility] Comment on above: Order Comment: CLEAN CATCH Performed By: #### L 400.0001 ####[facility] [address] [place], [address] BACTERIA 0 SEEN Normal None Seen [facility] Comment on above: Order Comment: CLEAN CATCH Performed By: #### L 400.0001 ####[facility] [address] [place], [address] EPI,SQUAMOUS 0 SEEN Normal 5-10 [facility] Comment on above: Order Comment: CLEAN CATCH Performed By: #### L 400.0001 ####[facility] [address] [place], [address] Mucus Ql (Urine sed) 0 SEEN Normal [facility] Comment on above: Order Comment: CLEAN CATCH Performed By: #### L 400.0001 ####[facility] [address] [place], [address] HIV Viral Load Quanton 11-11 HIV-1 RNA, PCR < 20 Normal . [facility] Comment on above: Result Comment: HIV- 1 RNA not detectedThe reportable range for this assay is 20 to 10,000,000copies HIV-1 RNA/mL. Performed By: #### L 3890.4000, L500.4050 ####[facility] [address] [place], [address] log10 HIV-1 RNA TNP Normal . [facility] Comment on above: Result Comment: Resu lt Units: [id number]/mLUnable to calculate result since non-numeric resultobtained for component test.Performed at: - [address] [id number] Director: Cinthya Downs MD, Phone: [phone] Performed By: #### L 3890.4000, L500.4050 ####[facility] [address] [place], [address] Bedside Glucoseon 11-09-2024 FINGERSTICK GLU 106 mg/dL Normal 74-106 [facility] Comment on above: Result Comment: ATUL GEMENT OF PATIENT CARE PER NURSING PROTOCOL Performed By: #### L 501.080 ####[facility] [address] [place], [address] FINGERSTICK GLU 96 mg/dL Normal 74-106 [facility] Comment on above: Result Comment: ATUL GEMENT OF PATIENT CARE PER NURSING PROTOCOL Performed By: #### L 501.080 ####[facility] [address] [place], [address] CBC W/Diff, Automatedon 10-30 Absolute Lymph 0.95 X10 3/uL Normal 0.83-4.51 [facility] Comment on above: Performed By: #### L 500.4050, L100.0100 ####[facility] [address] [place], [address] Absolute Neut 13.8 X10 3/uL High 2.0-7.7 [facility] Comment on above: Performed By: #### L 500.4050, L100.0100 ####[facility] [address] [place], [address] Basophils/100 WBC (Bld) 0.1 % Normal 0-1 [facility] Comment on above: Performed By: #### L 500.4050, L100.0100 ####[facility] [address] [place], [address] Eosinophils/100 WBC (Bld) 0.0 % Normal 0-5 [facility] Comment on above: Performed By: #### L 500.4050, L100.0100 ####[facility] [address] [place], [address] Erythrocyte distribution width (RBC) [Ratio] 15.2 % High 11.6-14.6 [facility] Comment on above: Performed By: #### L 500.4050, L100.0100 ####[facility] [address] [place], [address] Hematocrit (Bld) [Volume fraction] 31.5 % Low 37-47 [facility] Comment on above: Performed By: #### L 500.4050, L100.0100 ####[facility] [address] [place], [address] Hemoglobin (Bld) [Mass/Vol] 10.5 g/dL Low 12.0-15.0 [facility] Comment on above: Performed By: #### L 500.4050, L100.0100 ####[facility] [address] [place], [address] IG% 0.600 Normal 0.0-0.9 [facility] Comment on above: Result Comment: IG% - Immature Granulocytes (promyelocytes, myelocytes andmetamyelocytes) > 1% indicates that a LEFT SHIFT is Present. Performed By: #### L 500.4050, L100.0100 ####[facility] [address] [place], [address] Lymphocytes/100 WBC (Bld) 6.1 % Low 19-41 [facility] Comment on above: Performed By: #### L 500.4050, L100.0100 ####[facility] [address] [place], [address] MCH (RBC) [Entitic mass] 27.3 pg Normal 27.0-32.0 [facility] Comment on above: Performed By: #### L 500.4050, L100.0100 ####[facility] [address] [place], [address] MCHC (RBC) [Mass/Vol] 33.3 g/dL Normal 32-36 [facility] Comment on above: Performed By: #### L 500.4050, L100.0100 ####[facility] [address] [place], [address] MCV (RBC) [Entitic vol] 81.8 fL Normal 81-99 [facility] Comment on above: Performed By: #### L 500.4050, L100.0100 ####[facility] [address] [place], [address] Monocytes/100 WBC (Bld) 4.1 % Normal 0-10 [facility] Comment on above: Performed By: #### L 500.4050, L100.0100 ####[facility] [address] [place], [address] Neutrophils/100 WBC (Bld) 89.1 % High 47-70 [facility] Comment on above: Performed By: #### L 500.4050, L100.0100 ####[facility] [address] [place], [address] Nucleated RBC (Bld) [#/Vol] 0 10*3/uL Normal 0-5 [facility] Comment on above: Performed By: #### L 500.4050, L100.0100 ####[facility] [address] [place], [address] Platelet mean volume (Bld) [Entitic vol] 10.4 fL Normal 6.2-12.0 [facility] Comment on above: Performed By: #### L 500.4050, L100.0100 ####[facility] [address] [place], [address] Platelets (Bld) [#/Vol] 196 10*3/uL Normal 150-450 [facility] Comment on above: Performed By: #### L 500.4050, L100.0100 ####[facility] [address] [place], [address] RBC (Bld) [#/Vol] 3.85 10*6/uL Low 4.2-5.4 [facility] Comment on above: Performed By: #### L 500.4050, L100.0100 ####[facility] [address] [place], [address] RDW SD 44.6 fl High 35.1-43.9 [facility] Comment on above: Performed By: #### L 500.4050, L100.0100 ####[facility] [address] [place], [address] WBC (Bld) [#/Vol] 15.5 10*3/uL High 4.4-11.0 [facility] Comment on above: Performed By: #### L 500.4050, L100.0100 ####[facility] [address] [place], [address] Comprehensive Metabolic Prof ilon 11-09-2024 Albumin [Mass/Vol] 1.7 g/dL Low 3.2-5.0 [facility] Comment on above: Performed By: #### L 500.4050, L100.0100 ####[facility] [address] [place], [address] Albumin/Globulin [Mass ratio] 0.5 {ratio} Low 0.9-2.4 [facility] Comment on above: Performed By: #### L 500.4050, L100.0100 ####[facility] [address] [place], [address] ALK P 104 U/L Normal 45-117 [facility] Comment on above: Performed By: #### L 500.4050, L100.0100 ####[facility] [address] [place], [address] ALT [Catalytic activity/Vol] 14 U/L Normal 13-56 [facility] Comment on above: Performed By: #### L 500.4050, L100.0100 ####[facility] [address] [place], [address] AST [Catalytic activity/Vol] 22 U/L Normal 15-37 [facility] Comment on above: Performed By: #### L 500.4050, L100.0100 ####[facility] [address] [place], [address] Bilirubin [Mass/Vol] 0.30 mg/dL Normal 0.20-1.00 [facility] Comment on above: Result Comment: For patients on eltrombopag therapy, use of Dimension [place] TBIL is not recommended. Performed By: #### L 500.4050, L100.0100 ####[facility] [address] [place], [address] BUN/CRE 25.9 RATIO High 10-20 [facility] Comment on above: Performed By: #### L 500.4050, L100.0100 ####[facility] [address] [place], [address] CA,Total 8.0 mg/dL Low 8.5-10.1 [facility] Comment on above: Performed By: #### L 500.4050, L100.0100 ####[facility] [address] [place], [address] Chloride [Moles/Vol] 107 mmol/L Normal 98-107 [facility] Comment on above: Performed By: #### L 500.4050, L100.0100 ####[facility] [address] [place], [address] CO2 [Moles/Vol] 22.0 mmol/L Normal 21.0-32.0 [facility] Comment on above: Performed By: #### L 500.4050, L100.0100 ####[facility] [address] [place], [address] Creatinine [Mass/Vol] 0.89 mg/dL Normal 0.55-1.02 [facility] Comment on above: Result Comment: The validity of the calculated GFR GFRAA in patients over70 years has not been determined. Clinical correlation isessential. Performed By: #### L 500.4050, L100.0100 ####[facility] [address] [place], [address] ECRCL 99.59 ml/min Normal [facility] Comment on above: Performed By: #### L 500.4050, L100.0100 ####[facility] [address] [place], [address] EST GFR - AA 95 mL/min Normal >60 [facility] Comment on above: Result Comment: Afri can Zambian GFR Calc Performed By: #### L 500.4050, L100.0100 ####[facility] [address] [place], [address] GAP 7 Normal 5-15 [facility] Comment on above: Performed By: #### L 500.4050, L100.0100 ####[facility] [address] [place], [address] GFR/1.73 sq M.predicted among non-blacks MDRD (S/P/Bld) [Vol rate/Area] 78 mL/min/{1.73_m2} Normal >60 [facility] Comment on above: Result Comment: Non- GFR Calc Performed By: #### L 500.4050, L100.0100 ####[facility] [address] [place], [address] Globulin (S) [Mass/Vol] 3.7 g/dL Normal 2.2-4.2 [facility] Comment on above: Performed By: #### L 500.4050, L100.0100 ####[facility] [address] [place], [address] Glucose [Mass/Vol] 109 mg/dL High 74-106 [facility] Comment on above: Result Comment: Fast ing Glucose result from 100 to 125 mg/dLsuggests IMPAIRED HOMEOSTASIS per A.D.A. criteria. Performed By: #### L 500.4050, L100.0100 ####[facility] [address] [place], [address] Potassium [Moles/Vol] 4.1 mmol/L Normal 3.5-5.1 [facility] Comment on above: Performed By: #### L 500.4050, L100.0100 ####[facility] [address] [place], [address] Sodium [Moles/Vol] 136 mmol/L Normal 136-145 [facility] Comment on above: Performed By: #### L 500.4050, L100.0100 ####[facility] [address] [place], [address] T PROT 5.4 g/dL Low 6.4-8.2 [facility] Comment on above: Performed By: #### L 500.4050, L100.0100 ####[facility] [address] [place], [address] Urea nitrogen [Mass/Vol] 23 mg/dL High 7-18 [facility] Comment on above: Performed By: #### L 500.4050, L100.0100 ####[facility] [address] [place], [address] Discharge Instructionon 10-30 Discharge Instruction Normal [facility] Bedside Glucoseon 11-08-2024 FINGERSTICK GLU 232 mg/dL High 74-106 [facility] Comment on above: Result Comment: ATUL GAMBLE OF PATIENT CARE PER NURSING PROTOCOL Performed By: #### L 501.080 ####[facility] [address] [place], [address] FINGERSTICK GLU 277 mg/dL High 74-106 [facility] Comment on above: Result Comment: ATUL GEMENT OF PATIENT CARE PER NURSING PROTOCOL Performed By: #### L 501.080 ####[facility] [address] [place], [address] FINGERSTICK GLU 244 mg/dL High 74-106 [facility] Comment on above: Result Comment: ATUL GEMENT OF PATIENT CARE PER NURSING PROTOCOL Performed By: #### L 501.080 ####[facility] [address] [place], [address] FINGERSTICK GLU 343 mg/dL High 74-106 [facility] Comment on above: Result Comment: ATUL GEMENT OF PATIENT CARE PER NURSING PROTOCOL Performed By: #### L 501.080 ####[facility] [address] [place], [address] FINGERSTICK GLU 253 mg/dL High 74-106 [facility] Comment on above: Result Comment: ATUL GEMENT OF PATIENT CARE PER NURSING PROTOCOL Performed By: #### L 501.080 ####[facility] [address] [place], [address] CBC-[facility] Erythrocyte distribution width (RBC) [Ratio] 14.6 % Normal 11.6-14.6 [facility] Comment on above: Performed By: #### L 500.4050, L100.0500 ####[facility] [address] [place], [address] Hematocrit (Bld) [Volume fraction] 31.4 % Low 37-47 [facility] Comment on above: Performed By: #### L 500.4050, L100.0500 ####[facility] [address] [place], [address] Hemoglobin (Bld) [Mass/Vol] 10.4 g/dL Low 12.0-15.0 [facility] Comment on above: Performed By: #### L 500.4050, L100.0500 ####[facility] [address] [place], [address] MCH (RBC) [Entitic mass] 26.9 pg Low 27.0-32.0 [facility] Comment on above: Performed By: #### L 500.4050, L100.0500 ####[facility] [address] [place], [address] MCHC (RBC) [Mass/Vol] 33.1 g/dL Normal 32-36 [facility] Comment on above: Performed By: #### L 500.4050, L100.0500 ####[facility] [address] [place], [address] MCV (RBC) [Entitic vol] 81.3 fL Normal 81-99 [facility] Comment on above: Performed By: #### L 500.4050, L100.0500 ####[facility] [address] [place], [address] Platelet mean volume (Bld) [Entitic vol] 11.2 fL Normal 6.2-12.0 [facility] Comment on above: Performed By: #### L 500.4050, L100.0500 ####[facility] [address] [place], [address] Platelets (Bld) [#/Vol] 164 10*3/uL Normal 150-450 [facility] Comment on above: Performed By: #### L 500.4050, L100.0500 ####[facility] [address] [place], [address] RBC (Bld) [#/Vol] 3.86 10*6/uL Low 4.2-5.4 [facility] Comment on above: Performed By: #### L 500.4050, L100.0500 ####[facility] [address] [place], [address] RDW SD 42.5 fl Normal 35.1-43.9 [facility] Comment on above: Performed By: #### L 500.4050, L100.0500 ####[facility] [address] [place], [address] WBC (Bld) [#/Vol] 10.6 10*3/uL Normal 4.4-11.0 [facility] Comment on above: Performed By: #### L 500.4050, L100.0500 ####[facility] [address] [place], [address] Comprehensive Metabolic Prof ilon 11-08-2024 Albumin [Mass/Vol] 1.6 g/dL Low 3.2-5.0 [facility] Comment on above: Performed By: #### L 500.4050, L100.0500 ####[facility] [address] [place], [address] Albumin/Globulin [Mass ratio] 0.4 {ratio} Low 0.9-2.4 [facility] Comment on above: Performed By: #### L 500.4050, L100.0500 ####[facility] [address] [place], [address] ALK P 112 U/L Normal 45-117 [facility] Comment on above: Performed By: #### L 500.4050, L100.0500 ####[facility] [address] [place], [address] ALT [Catalytic activity/Vol] 12 U/L Low 13-56 [facility] Comment on above: Performed By: #### L 500.4050, L100.0500 ####[facility] [address] [place], [address] AST [Catalytic activity/Vol] 19 U/L Normal 15-37 [facility] Comment on above: Performed By: #### L 500.4050, L100.0500 ####[facility] [address] [place], [address] Bilirubin [Mass/Vol] 0.30 mg/dL Normal 0.20-1.00 [facility] Comment on above: Result Comment: For patients on eltrombopag therapy, use of Dimension [place] TBIL is not recommended. Performed By: #### L 500.4050, L100.0500 ####[facility] [address] [place], [address] BUN/CRE 16.8 RATIO Normal 10-20 [facility] Comment on above: Performed By: #### L 500.4050, L100.0500 ####[facility] [address] [place], [address] CA,Total 7.4 mg/dL Low 8.5-10.1 [facility] Comment on above: Performed By: #### L 500.4050, L100.0500 ####[facility] [address] [place], [address] Chloride [Moles/Vol] 100 mmol/L Normal 98-107 [facility] Comment on above: Performed By: #### L 500.4050, L100.0500 ####[facility] [address] [place], [address] CO2 [Moles/Vol] 20.0 mmol/L Low 21.0-32.0 [facility] Comment on above: Performed By: #### L 500.4050, L100.0500 ####[facility] [address] [place], [address] Creatinine [Mass/Vol] 1.25 mg/dL High 0.55-1.02 [facility] Comment on above: Result Comment: The validity of the calculated GFR GFRAA in patients over70 years has not been determined. Clinical correlation isessential. Performed By: #### L 500.4050, L100.0500 ####[facility] [address] [place], [address] ECRCL 70.91 ml/min Normal [facility] Comment on above: Performed By: #### L 500.4050, L100.0500 ####[facility] [address] [place], [address] EST GFR - AA 64 mL/min Normal >60 [facility] Comment on above: Result Comment: Afri can [place]ian GFR Calc Performed By: #### L 500.4050, L100.0500 ####[facility] [address] [place], [address] GAP 8 Normal 5-15 [facility] Comment on above: Performed By: #### L 500.4050, L100.0500 ####[facility] [address] [place], [address] GFR/1.73 sq M.predicted among non-blacks MDRD (S/P/Bld) [Vol rate/Area] 53 mL/min/{1.73_m2} Low >60 [facility] Comment on above: Result Comment: Non- GFR Calc Performed By: #### L 500.4050, L100.0500 ####[facility] [address] [place], [address] Globulin (S) [Mass/Vol] 3.7 g/dL Normal 2.2-4.2 [facility] Comment on above: Performed By: #### L 500.4050, L100.0500 ####[facility] [address] [place], [address] Glucose [Mass/Vol] 259 mg/dL High 74-106 [facility] Comment on above: Result Comment: Gluc ose result greater than or equal to 200 mg/dLsuggests DIABETES MELLITUS per A.D.A. criteria. Performed By: #### L 500.4050, L100.0500 ####[facility] [address] [place], [address] Potassium [Moles/Vol] 4.3 mmol/L Normal 3.5-5.1 [facility] Comment on above: Performed By: #### L 500.4050, L100.0500 ####[facility] [address] [place], [address] Sodium [Moles/Vol] 127 mmol/L Low 136-145 [facility] Comment on above: Performed By: #### L 500.4050, L100.0500 ####[facility] [address] [place], [address] T PROT 5.3 g/dL Low 6.4-8.2 [facility] Comment on above: Performed By: #### L 500.4050, L100.0500 ####[facility] [address] [place], [address] Urea nitrogen [Mass/Vol] 21 mg/dL High 7-18 [facility] Comment on above: Performed By: #### L 500.4050, L100.0500 ####[facility] [address] [place], [address] L3410.9999on 11-08-2024 [facility] [place] . [facility] Comment on above: Order Comment: [id number] 5HIV CONFIRMATION Result Comment: Test Ordered: 446172 HIV Ab/p24 Ag with ReflexHIV Ab/p24 Ag Screen Note: CB Non Reactive Reference Range: Non ReactiveHIV-1/HIV-2 antibodies and HIV-1 p24 antigen were NOTdetected. There is no laboratory evidence of HIV infection.HIV NegativePerformed at: - [facility] [address] [id number] Director: Donell Nieto PhD, Phone: [phone] Performed By: #### L 3890.6005, L400.0001, L3410.9999, L100.0100 ####[facility] [address] [place], [address] 12 Lead EKGon 11-07-2024 12 Lead EKG Normal [facility] Acetone Serumon 11-07-2024 ACETONE SERUM Negative Normal NEG [facility] Comment on above: Performed By: #### L 501.6900 ####[facility] [address] [place], [address] BLD Prod Order/FFPon 025 BP ORDER FFP Not performed Normal [facility] Comment on above: Order Comment: NO LO NGER NEEDED Result Comment: NO L ONGER NEEDED Performed By: #### B BPOFFP ####[facility] [address] [place], [address] Bedside Glucoseon 11-07-2024 FINGERSTICK GLU 271 mg/dL High 74-106 [facility] Comment on above: Result Comment: ATUL GEMENT OF PATIENT CARE PER NURSING PROTOCOL Performed By: #### L 501.080 ####[facility] [address] [place], [address] FINGERSTICK GLU 297 mg/dL High 74-106 [facility] Comment on above: Result Comment: ATUL GEMENT OF PATIENT CARE PER NURSING PROTOCOL Performed By: #### L 501.080 ####[facility] [address] [place], [address] FINGERSTICK GLU 209 mg/dL High 74-106 [facility] Comment on above: Result Comment: ATUL GEMENT OF PATIENT CARE PER NURSING PROTOCOL Performed By: #### L 501.080 ####[facility] [address] [place], [address] FINGERSTICK GLU 268 mg/dL High 74-106 [facility] Comment on above: Result Comment: ATUL GEMENT OF PATIENT CARE PER NURSING PROTOCOL Performed By: #### L 501.080 ####[facility] [address] [place], [address] FINGERSTICK GLU 306 mg/dL High 74-106 [facility] Comment on above: Result Comment: ATUL GEMENT OF PATIENT CARE PER NURSING PROTOCOL Performed By: #### L 501.080 ####[facility] [address] [place], [address] FINGERSTICK GLU 272 mg/dL High 74-106 [facility] General Comment on above: Result Comment: ATUL GEMENT OF PATIENT CARE PER NURSING PROTOCOL Performed By: #### L 501.080 ####[facility] [address] [place], [address] CBC W/Diff, Automatedon 01-0 9-2024 Absolute Lymph 2.70 X10 3/uL Normal 0.83-4.51 [facility] Comment on above: Performed By: #### L 100.0100 ####[facility] [address] [place], [address] Absolute Neut 6.6 X10 3/uL Normal 2.0-7.7 [facility] Comment on above: Performed By: #### L 100.0100 ####[facility] [address] [place], [address] Basophils/100 WBC (Bld) 0.2 % Normal 0-1 [facility] Comment on above: Performed By: #### L 100.0100 ####[facility] [address] [place], [address] Eosinophils/100 WBC (Bld) 0.1 % Normal 0-5 [facility] Comment on above: Performed By: #### L 100.0100 ####[facility] [address] [place], [address] Erythrocyte distribution width (RBC) [Ratio] 14.7 % High 11.6-14.6 [facility] Comment on above: Performed By: #### L 100.0100 ####[facility] [address] [place], [address] Hematocrit (Bld) [Volume fraction] 31.8 % Low 37-47 [facility] Comment on above: Performed By: #### L 100.0100 ####[facility] [address] [place], [address] Hemoglobin (Bld) [Mass/Vol] 10.3 g/dL Low 12.0-15.0 [facility] Comment on above: Performed By: #### L 100.0100 ####[facility] [address] [place], [address] IG% 1.000 High 0.0-0.9 [facility] Comment on above: Result Comment: IG% - Immature Granulocytes (promyelocytes, myelocytes andmetamyelocytes) > 1% indicates that a LEFT SHIFT is Present. Performed By: #### L 100.0100 ####[facility] [address] [place], [address] Lymphocytes/100 WBC (Bld) 27.4 % Normal 19-41 [facility] Comment on above: Performed By: #### L 100.0100 ####[facility] [address] [place], [address] MCH (RBC) [Entitic mass] 27.0 pg Normal 27.0-32.0 [facility] Comment on above: Performed By: #### L 100.0100 ####[facility] [address] [place], [address] MCHC (RBC) [Mass/Vol] 32.4 g/dL Normal 32-36 [facility] Comment on above: Performed By: #### L 100.0100 ####[facility] [address] [place], [address] MCV (RBC) [Entitic vol] 83.5 fL Normal 81-99 [facility] Comment on above: Performed By: #### L 100.0100 ####[facility] [address] [place], [address] Monocytes/100 WBC (Bld) 4.5 % Normal 0-10 [facility] Comment on above: Performed By: #### L 100.0100 ####[facility] [address] [place], [address] Neutrophils/100 WBC (Bld) 66.8 % Normal 47-70 [facility] Comment on above: Performed By: #### L 100.0100 ####[facility] [address] [place], [address] Nucleated RBC (Bld) [#/Vol] 0 10*3/uL Normal 0-5 [facility] Comment on above: Performed By: #### L 100.0100 ####[facility] [address] [place], [address] Platelet mean volume (Bld) [Entitic vol] 12.4 fL High 6.2-12.0 [facility] Comment on above: Performed By: #### L 100.0100 ####[facility] [address] [place], [address] Platelets (Bld) [#/Vol] 113 10*3/uL Low 150-450 [facility] Comment on above: Performed By: #### L 100.0100 ####[facility] [address] [place], [address] RBC (Bld) [#/Vol] 3.81 10*6/uL Low 4.2-5.4 [facility] Comment on above: Performed By: #### L 100.0100 ####[facility] [address] [place], [address] RDW SD 43.8 fl Normal 35.1-43.9 [facility] Comment on above: Performed By: #### L 100.0100 ####[facility] [address] [place], [address] WBC (Bld) [#/Vol] 9.8 10*3/uL Normal 4.4-11.0 [facility] Comment on above: Performed By: #### L 100.0100 ####[facility] [address] [place], [address] CBC-Complete Blood Cnt No Di ffon 11-07-2024 Erythrocyte distribution width (RBC) [Ratio] 14.5 % Normal 11.6-14.6 [facility] Comment on above: Performed By: #### L 100.0500 ####[facility] [address] [place], [address] Hematocrit (Bld) [Volume fraction] 28.5 % Low 37-47 [facility] Comment on above: Performed By: #### L 100.0500 ####[facility] [address] [place], [address] Hemoglobin (Bld) [Mass/Vol] 9.3 g/dL Low 12.0-15.0 [facility] Comment on above: Performed By: #### L 100.0500 ####[facility] [address] [place], [address] MCH (RBC) [Entitic mass] 26.5 pg Low 27.0-32.0 [facility] Comment on above: Performed By: #### L 100.0500 ####[facility] [address] [place], [address] MCHC (RBC) [Mass/Vol] 32.6 g/dL Normal 32-36 [facility] Comment on above: Performed By: #### L 100.0500 ####[facility] [address] [place], [address] MCV (RBC) [Entitic vol] 81.2 fL Normal 81-99 [facility] Comment on above: Performed By: #### L 100.0500 ####[facility] [address] [place], [address] Platelet mean volume (Bld) [Entitic vol] 12.4 fL High 6.2-12.0 [facility] Comment on above: Performed By: #### L 100.0500 ####[facility] [address] [place], [address] Platelets (Bld) [#/Vol] 126 10*3/uL Low 150-450 [facility] Comment on above: Performed By: #### L 100.0500 ####[facility] [address] [place], [address] RBC (Bld) [#/Vol] 3.51 10*6/uL Low 4.2-5.4 [facility] Comment on above: Performed By: #### L 100.0500 ####[facility] [address] [place], [address] RDW SD 41.7 fl Normal 35.1-43.9 [facility] Comment on above: Performed By: #### L 100.0500 ####[facility] [address] [place], [address] WBC (Bld) [#/Vol] 12.0 10*3/uL High 4.4-11.0 [facility] Comment on above: Performed By: #### L 100.0500 ####[facility] [address] [place], [address] Hemoglobin (Bld) [Mass/Vol] 5.8 g/dL Invalid Interpretation Code 12.0-15.0 [facility] Comment on above: Order Comment: Comme nts: Day #1Reason for Laboratory Test Result Comment: This specimen has been REJECTED due to Laboratory criteria:POSSIBLE Contamination.[email or web address] has been notified of need of recollection.11/07/24337 Zeferino R BurnsCRITICAL VALUE CALLED TO DVEZMRW03/09/25 0203 Zeferino R Garcia.RESULTS READ BACK BY SAME. Performed By: #### L 100.0500 ####[facility] [address] [place], [place], [id number] SCAN INDICATED? YES- FLAGS NOTED Normal [facility] Comment on above: Order Comment: Comme nts: Day #1Reason for Laboratory Test Result Comment: This specimen has been REJECTED due to Laboratory criteria:POSSIBLE Contamination.[email or web address] has been notified of need of recollection.11/07/24337 Zeferino R Garcia Performed By: #### L 100.0500 ####[facility] [address] [place], [address] Erythrocyte distribution width (RBC) [Ratio] 14.4 % Normal 11.6-14.6 [facility] Comment on above: Order Comment: Comme nts: Day #1Reason for Laboratory Test Result Comment: This specimen has been REJECTED due to Laboratory criteria:POSSIBLE Contamination.[email or web address] has been notified of need of recollection.11/07/24337 Zeferino R Garcia Performed By: #### L 100.0500 ####[facility] [address] [place], [place], [phone]) Hematocrit (Bld) [Volume fraction] 19.1 % Low 37-47 [facility] Comment on above: Order Comment: Comme nts: Day #1Reason for Laboratory Test Result Comment: This specimen has been REJECTED due to Laboratory criteria:POSSIBLE Contamination.[email or web address] has been notified of need of recollection.11/07/24337 Zeferino R Garcia Performed By: #### L 100.0500 ####[facility] [address] [place], [address] MCH (RBC) [Entitic mass] 26.0 pg Low 27.0-32.0 [facility] Comment on above: Order Comment: Comme nts: Day #1Reason for Laboratory Test Result Comment: This specimen has been REJECTED due to Laboratory criteria:POSSIBLE Contamination.[email or web address] has been notified of need of recollection.11/07/24337 Zeferino R Garcia Performed By: #### L 100.0500 ####[facility] [address] [place], [address] MCHC (RBC) [Mass/Vol] 30.4 g/dL Low 32-36 [facility] Comment on above: Order Comment: Comme nts: Day #1Reason for Laboratory Test Result Comment: This specimen has been REJECTED due to Laboratory criteria:POSSIBLE Contamination.[email or web address] has been notified of need of recollection.11/07/24337 Zeferino R Garcia Performed By: #### L 100.0500 ####[facility] [address] [facility] [place], [address] MCV (RBC) [Entitic vol] 85.7 fL Normal 81-99 [facility] Comment on above: Order Comment: Comme nts: Day #1Reason for Laboratory Test Result Comment: This specimen has been REJECTED due to Laboratory criteria:POSSIBLE Contamination.[email or web address] has been notified of need of recollection.11/07/24337 Zeferino R Garcia Performed By: #### L 100.0500 ####[facility] [address] [facility] [place], [address] Platelet mean volume (Bld) [Entitic vol] 11.3 fL Normal 6.2-12.0 [facility] Comment on above: Order Comment: Comme nts: Day #1Reason for Laboratory Test Result Comment: This specimen has been REJECTED due to Laboratory criteria:POSSIBLE Contamination.[email or web address] has been notified of need of recollection.11/07/24337 Zeferino R Garcia Performed By: #### L 100.0500 ####[facility] [address] [facility] [place], [address] Platelets (Bld) [#/Vol] 66 10*3/uL Low 150-450 [facility] Comment on above: Order Comment: Comme nts: Day #1Reason for Laboratory Test Result Comment: This specimen has been REJECTED due to Laboratory criteria:POSSIBLE Contamination.[email or web address] has been notified of need of recollection.11/07/24337 Zeferino R Garcia Performed By: #### L 100.0500 ####[facility] [address] [place], [address] POSITIVE COUNT YES Abnormal [facility] Comment on above: Order Comment: Comme nts: Day #1Reason for Laboratory Test Result Comment: This specimen has been REJECTED due to Laboratory criteria:POSSIBLE Contamination.[email or web address] has been notified of need of recollection.11/07/24337 Zeferino R Garcia Performed By: #### L 100.0500 ####[facility] [address] [place], [address] RBC (Bld) [#/Vol] 2.23 10*6/uL Low 4.2-5.4 [facility] Comment on above: Order Comment: Comme nts: Day #1Reason for Laboratory Test Result Comment: This specimen has been REJECTED due to Laboratory criteria:POSSIBLE Contamination.[email or web address] has been notified of need of recollection.11/07/24337 Zeferino R Garcia Performed By: #### L 100.0500 ####[facility] [address] [place], [address] RDW SD 44.5 fl High 35.1-43.9 [facility] Comment on above: Order Comment: Comme nts: Day #1Reason for Laboratory Test Result Comment: This specimen has been REJECTED due to Laboratory criteria:POSSIBLE Contamination.[email or web address] has been notified of need of recollection.11/07/24337 Zeferino R Garcia Performed By: #### L 100.0500 ####[facility] [address] [place], [address] WBC (Bld) [#/Vol] 7.6 10*3/uL Normal 4.4-11.0 [facility] Comment on above: Order Comment: Comme nts: Day #1Reason for Laboratory Test Result Comment: This specimen has been REJECTED due to Laboratory criteria:POSSIBLE Contamination.BIJU has been notified of need of recollection.11/07/24 0338 Zeferino Guerrero Garcia Performed By: #### L 100.0500 ####[facility] [address] [place], [address] Comprehensive Metabolic Prof ilon 11-07-2024 Albumin [Mass/Vol] 1.6 g/dL Low 3.2-5.0 [facility] Comment on above: Performed By: #### L 3890.4000, L500.4050 ####[facility] [address] [place], [address] Albumin/Globulin [Mass ratio] 0.4 {ratio} Low 0.9-2.4 [facility] Comment on above: Performed By: #### L 3890.4000, L500.4050 ####[facility] [address] [place], [address] ALK P 116 U/L Normal 45-117 [facility] Comment on above: Performed By: #### L 3890.4000, L500.4050 ####[facility] [address] [place], [address] ALT [Catalytic activity/Vol] 14 U/L Normal 13-56 [facility] Comment on above: Performed By: #### L 3890.4000, L500.4050 ####[facility] [address] [place], [address] AST [Catalytic activity/Vol] 25 U/L Normal 15-37 [facility] Comment on above: Performed By: #### L 3890.4000, L500.4050 ####[facility] [address] [place], [address] Bilirubin [Mass/Vol] 0.10 mg/dL Low 0.20-1.00 [facility] Comment on above: Result Comment: For patients on eltrombopag therapy, use of Dimension [place] TBIL is not recommended. Performed By: #### L 3890.4000, L500.4050 ####[facility] [address] [place], [address] BUN/CRE 12.2 RATIO Normal 10-20 [facility] Comment on above: Performed By: #### L 3890.4000, L500.4050 ####[facility] [address] [place], [address] CA,Total 7.3 mg/dL Low 8.5-10.1 [facility] Comment on above: Performed By: #### L 3890.4000, L500.4050 ####[facility] [address] [place], [address] Chloride [Moles/Vol] 99 mmol/L Normal 98-107 [facility] Comment on above: Performed By: #### L 3890.4000, L500.4050 ####[facility] [address] [place], [address] CO2 [Moles/Vol] 20.0 mmol/L Low 21.0-32.0 [facility] Comment on above: Performed By: #### L 3890.4000, L500.4050 ####[facility] [address] [place], [address] Creatinine [Mass/Vol] 1.31 mg/dL High 0.55-1.02 [facility] Comment on above: Result Comment: The validity of the calculated GFR GFRAA in patients over70 years has not been determined. Clinical correlation isessential. Performed By: #### L 3890.4000, L500.4050 ####[facility] [address] [place], [address] ECRCL 67.66 ml/min Normal [facility] Comment on above: Performed By: #### L 3890.4000, L500.4050 ####[facility] [address] [place], [address] EST GFR - AA 61 mL/min Normal >60 [facility] Comment on above: Result Comment: Afri can [place] GFR Calc Performed By: #### L 3890.4000, L500.4050 ####[facility] [address] [place], [address] GAP 10 Normal 5-15 [facility] Comment on above: Performed By: #### L 3890.4000, L500.4050 ####[facility] [address] [place], [address] GFR/1.73 sq M.predicted among non-blacks MDRD (S/P/Bld) [Vol rate/Area] 50 mL/min/{1.73_m2} Low >60 [facility] Comment on above: Result Comment: Non- GFR Calc Performed By: #### L 3890.4000, L500.4050 ####[facility] [address] [place], [address] Globulin (S) [Mass/Vol] 3.6 g/dL Normal 2.2-4.2 [facility] Comment on above: Performed By: #### L 3890.4000, L500.4050 ####[facility] [address] [place], [address] Glucose [Mass/Vol] 203 mg/dL High 74-106 [facility] Comment on above: Result Comment: Gluc ose result greater than or equal to 200 mg/dLsuggests DIABETES MELLITUS per A.D.A. criteria. Performed By: #### L 3890.4000, L500.4050 ####[facility] [address] [place], [address] Potassium [Moles/Vol] 4.3 mmol/L Normal 3.5-5.1 [facility] Comment on above: Performed By: #### L 3890.4000, L500.4050 ####[facility] [address] [place], [address] Sodium [Moles/Vol] 128 mmol/L Low 136-145 [facility] Comment on above: Performed By: #### L 3890.4000, L500.4050 ####[facility] [address] [place], [address] T PROT 5.2 g/dL Low 6.4-8.2 [facility] Comment on above: Performed By: #### L 3890.4000, L500.4050 ####[facility] [address] [place], [address] Urea nitrogen [Mass/Vol] 16 mg/dL Normal 7-18 [facility] Comment on above: Performed By: #### L 3890.4000, L500.4050 ####[facility] [address] [place], [address] ALB Normal 3.2-5.0 [facility] Comment on above: Result Comment: @DUP LICATE Performed By: #### L 500.4050 ####[facility] [address] [place], [address] ALK P Normal 45-117 [facility] Comment on above: Result Comment: @DUP LICATE Performed By: #### L 500.4050 ####[facility] [address] [place], [address] ALT Normal 13-56 [facility] Comment on above: Result Comment: @DUP LICATE Performed By: #### L 500.4050 ####[facility] [address] [place], [address] AST Normal 15-37 [facility] Comment on above: Result Comment: @DUP LICATE Performed By: #### L 500.4050 ####[facility] [address] [place], [address] BUN Normal 7-18 [facility] Comment on above: Result Comment: @DUP LICATE Performed By: #### L 500.4050 ####[facility] [address] [place], [address] BUN/CRE Normal 10-20 [facility] Comment on above: Result Comment: @DUP LICATE Performed By: #### L 500.4050 ####[facility] [address] [place], [address] CA,Total Normal 8.5-10.1 [facility] Comment on above: Result Comment: @DUP LICATE Performed By: #### L 500.4050 ####[facility] [address] [place], [address] CL Normal 98-107 [facility] Comment on above: Result Comment: @DUP LICATE Performed By: #### L 500.4050 ####[facility] [address] [place], [address] CO2 Normal 21.0-32.0 [facility] Comment on above: Result Comment: @DUP LICATE Performed By: #### L 500.4050 ####[facility] [address] [place], [address] CREAT,SERUM Normal 0.55-1.02 [facility] Comment on above: Result Comment: @DUP LICATE Performed By: #### L 500.4050 ####[facility] [address] [place], [address] EST GFR Normal >60 [facility] Comment on above: Result Comment: @DUP LICATE Performed By: #### L 500.4050 ####[facility] [address], [address] EST GFR - AA Normal >60 [facility] Comment on above: Result Comment: @DUP LICATE Performed By: #### L 500.4050 ####[facility] [address] [place], [address] GAP Normal 5-15 [facility] Comment on above: Result Comment: @DUP LICATE Performed By: #### L 500.4050 ####[facility] [address] [place], [address] GLU Normal 74-106 [facility] Comment on above: Result Comment: @DUP LICATE Performed By: #### L 500.4050 ####[facility] [address] [place], [address] Potassium Normal 3.5-5.1 [facility] Comment on above: Result Comment: @DUP LICATE Performed By: #### L 500.4050 ####[facility] [address] [place], [address] T BILI Normal 0.20-1.00 [facility] Comment on above: Result Comment: @DUP LICATE Performed By: #### L 500.4050 ####[facility] [address] [place], [address] T PROT Normal 6.4-8.2 [facility] Comment on above: Result Comment: @DUP LICATE Performed By: #### L 500.4050 ####[facility] [address] [place], [address] Comprehensive Metabolic Profil Normal 136-145 [facility] Comment on above: Result Comment: @DUP LICATE Performed By: #### L 500.4050 ####[facility] [address] [place], [address] Albumin [Mass/Vol] 1.5 g/dL Low 3.2-5.0 [facility] Comment on above: Order Comment: REDRA W. PREVIOUS SPECIMEN REJECTED DUE TOPOSSIBLE CONTAMINATION. 11/07/24341 Zeferino R Garcia. Performed By: #### L 500.4050, L501.5200 ####[facility] [address] [place], [address] Albumin/Globulin [Mass ratio] 0.5 {ratio} Low 0.9-2.4 [facility] Comment on above: Order Comment: REDRA W. PREVIOUS SPECIMEN REJECTED DUE TOPOSSIBLE CONTAMINATION. 11/07/24341 Zeferino R Garcia. Performed By: #### L 500.4050, L501.5200 ####[facility] [address] [place], [address] ALK P 111 U/L Normal 45-117 [facility] Comment on above: Order Comment: REDRA W. PREVIOUS SPECIMEN REJECTED DUE TOPOSSIBLE CONTAMINATION. 11/07/24341 Zeferino R Garcia. Performed By: #### L 500.4050, L501.5200 ####[facility] [address] [place], [address] ALT [Catalytic activity/Vol] 14 U/L Normal 13-56 [facility] Comment on above: Order Comment: REDRA W. PREVIOUS SPECIMEN REJECTED DUE TOPOSSIBLE CONTAMINATION. 11/07/24341 Zeferino R Garcia. Performed By: #### L 500.4050, L501.5200 ####[facility] [address] [place], [address] AST [Catalytic activity/Vol] 21 U/L Normal 15-37 [facility] Comment on above: Order Comment: REDRA W. PREVIOUS SPECIMEN REJECTED DUE TOPOSSIBLE CONTAMINATION. 11/07/24341 Zeferino R Garcia. Performed By: #### L 500.4050, L501.5200 ####[facility] [address] [place], [address] Bilirubin [Mass/Vol] 0.20 mg/dL Normal 0.20-1.00 [facility] Comment on above: Order Comment: REDRA W. PREVIOUS SPECIMEN REJECTED DUE TOPOSSIBLE CONTAMINATION. 11/07/24341 Zeferino R Garcia. Result Comment: For patients on eltrombopag therapy, use of Dimension [place] TBIL is not recommended. Performed By: #### L 500.4050, L501.5200 ####[facility] [address] [place], [address] BUN/CRE 12.9 RATIO Normal 10-20 [facility] Comment on above: Order Comment: REDRA W. PREVIOUS SPECIMEN REJECTED DUE TOPOSSIBLE CONTAMINATION. 11/07/24341 Zeferino R Garcia. Performed By: #### L 500.4050, L501.5200 ####[facility] [address] [place], [address] CA,Total 7.7 mg/dL Low 8.5-10.1 [facility] Comment on above: Order Comment: REDRA W. PREVIOUS SPECIMEN REJECTED DUE TOPOSSIBLE CONTAMINATION. 11/07/24341 Zeferino R Garcia. Performed By: #### L 500.4050, L501.5200 ####[facility] [address] [place], [address] Chloride [Moles/Vol] 101 mmol/L Normal 98-107 [facility] Comment on above: Order Comment: REDRA W. PREVIOUS SPECIMEN REJECTED DUE TOPOSSIBLE CONTAMINATION. 11/07/24341 Zeferino R Garcia. Performed By: #### L 500.4050, L501.5200 ####[facility] [address] [place], [address] CO2 [Moles/Vol] 21.0 mmol/L Normal 21.0-32.0 [facility] Comment on above: Order Comment: REDRA W. PREVIOUS SPECIMEN REJECTED DUE TOPOSSIBLE CONTAMINATION. 11/07/24341 Zeferino R Garcia. Performed By: #### L 500.4050, L501.5200 ####[facility] [address] [place], [address] Creatinine [Mass/Vol] 1.40 mg/dL High 0.55-1.02 [facility] Comment on above: Order Comment: RED W. PREVIOUS SPECIMEN REJECTED DUE TOPOSSIBLE CONTAMINATION. 11/07/24341 Zeferino R Garcia. Result Comment: The validity of the calculated GFR GFRAA in patients over70 years has not been determined. Clinical correlation isessential. Performed By: #### L 500.4050, L501.5200 ####[facility] [address] [place], [address] EST GFR - AA 56 mL/min Low >60 [facility] Comment on above: Order Comment: RED W. PREVIOUS SPECIMEN REJECTED DUE TOPOSSIBLE CONTAMINATION. 11/07/24341 Zeferino R Garcia. Result Comment: Afri can Zambian GFR Calc Performed By: #### L 500.4050, L501.5200 ####[facility] [address] [place], [address] GAP 7 Normal 5-15 [facility] Comment on above: Order Comment: RED W. PREVIOUS SPECIMEN REJECTED DUE TOPOSSIBLE CONTAMINATION. 11/07/24341 Zeferino R Jose. Performed By: #### L 500.4050, L501.5200 ####[facility] [address] [place], [address] GFR/1.73 sq M.predicted among non-blacks MDRD (S/P/Bld) [Vol rate/Area] 46 mL/min/{1.73_m2} Low >60 [facility] Comment on above: Order Comment: RED W. PREVIOUS SPECIMEN REJECTED DUE TOPOSSIBLE CONTAMINATION. 11/07/24341 Zeferino R Garcia. Result Comment: Non- GFR Calc Performed By: #### L 500.4050, L501.5200 ####[facility] [address] [place], [address] Globulin (S) [Mass/Vol] 3.3 g/dL Normal 2.2-4.2 [facility] Comment on above: Order Comment: REDRA W. PREVIOUS SPECIMEN REJECTED DUE TOPOSSIBLE CONTAMINATION. 11/07/24341 Zeferino R Garcia. Performed By: #### L 500.4050, L501.5200 ####[facility] [address] [place], [address] Glucose [Mass/Vol] 315 mg/dL High 74-106 [facility] Comment on above: Order Comment: REDRA W. PREVIOUS SPECIMEN REJECTED DUE TOPOSSIBLE CONTAMINATION. 11/07/24341 Zeferino R Garcia. Result Comment: Gluc ose result greater than or equal to 200 mg/dLsuggests DIABETES MELLITUS per A.D.A. criteria. Performed By: #### L 500.4050, L501.5200 ####[facility] [address] [place], [address] Potassium [Moles/Vol] 5.3 mmol/L High 3.5-5.1 [facility] Comment on above: Order Comment: REDRA W. PREVIOUS SPECIMEN REJECTED DUE TOPOSSIBLE CONTAMINATION. 11/07/24341 Zeferino R Garcia. Performed By: #### L 500.4050, L501.5200 ####[facility] [address] [place], [address] Sodium [Moles/Vol] 130 mmol/L Low 136-145 [facility] Comment on above: Order Comment: RED W. PREVIOUS SPECIMEN REJECTED DUE TOPOSSIBLE CONTAMINATION. 11/07/24341 Zeferino R Garcia. Performed By: #### L 500.4050, L501.5200 ####[facility] [address] [place], [address] T PROT 4.8 g/dL Low 6.4-8.2 [facility] Comment on above: Order Comment: REDRA W. PREVIOUS SPECIMEN REJECTED DUE TOPOSSIBLE CONTAMINATION. 11/07/24341 Zeferino R Garcia. Performed By: #### L 500.4050, L501.5200 ####[facility] [address] [place], [address] Urea nitrogen [Mass/Vol] 18 mg/dL Normal 7-18 [facility] Comment on above: Order Comment: ARGENTINA Gonzalez. PREVIOUS SPECIMEN REJECTED DUE TOPOSSIBLE CONTAMINATION. 11/07/24 0342 Zeferino Garcia. Performed By: #### L 500.4050, L501.5200 ####[facility] [address] [place], [address] ALB Normal 3.2-5.0 [facility] Comment on above: Result Comment: This specimen has been REJECTED due to Laboratory criteria:POSSIBLE Contamination.[email or web address] has been notified of need of recollection. Performed By: #### L 500.4050 ####[facility] [address] [place], [address] ALK P Normal 45-117 [facility] Comment on above: Result Comment: This specimen has been REJECTED due to Laboratory criteria:POSSIBLE Contamination.[email or web address] has been notified of need of recollection. Performed By: #### L 500.4050 ####[facility] [address] [place], [address] ALT Normal 13-56 [facility] Comment on above: Result Comment: This specimen has been REJECTED due to Laboratory criteria:POSSIBLE Contamination.[email or web address] has been notified of need of recollection. Performed By: #### L 500.4050 ####[facility] [address] [place], [address] AST Normal 15-37 [facility] Comment on above: Result Comment: This specimen has been REJECTED due to Laboratory criteria:POSSIBLE Contamination.[email or web address] has been notified of need of recollection. Performed By: #### L 500.4050 ####[facility] [address] [place], [address] BUN Normal 7-18 [facility] Comment on above: Result Comment: This specimen has been REJECTED due to Laboratory criteria:POSSIBLE Contamination.[email or web address] has been notified of need of recollection. Performed By: #### L 500.4050 ####[facility] [address] [place], [address] BUN/CRE Normal 10-20 [facility] Comment on above: Result Comment: This specimen has been REJECTED due to Laboratory criteria:POSSIBLE Contamination.[email or web address] has been notified of need of recollection. Performed By: #### L 500.4050 ####[facility] [address] [place], [address] CA,Total Normal 8.5-10.1 [facility] Comment on above: Result Comment: This specimen has been REJECTED due to Laboratory criteria:POSSIBLE Contamination.[email or web address] has been notified of need of recollection. Performed By: #### L 500.4050 ####[facility] [address] [place], [address] CL Normal 98-107 [facility] Comment on above: Result Comment: This specimen has been REJECTED due to Laboratory criteria:POSSIBLE Contamination.[email or web address] has been notified of need of recollection. Performed By: #### L 500.4050 ####[facility] [address] [place], [address] CO2 Normal 21.0-32.0 [facility] Comment on above: Result Comment: This specimen has been REJECTED due to Laboratory criteria:POSSIBLE Contamination.[email or web address] has been notified of need of recollection. Performed By: #### L 500.4050 ####[facility] [address] [place], [address] CREAT,SERUM Normal 0.55-1.02 [facility] Comment on above: Result Comment: This specimen has been REJECTED due to Laboratory criteria:POSSIBLE Contamination.[email or web address] has been notified of need of recollection. Performed By: #### L 500.4050 ####[facility] [address] [place], [address] EST GFR Normal >60 [facility] Comment on above: Result Comment: This specimen has been REJECTED due to Laboratory criteria:POSSIBLE Contamination.[email or web address] has been notified of need of recollection. Performed By: #### L 500.4050 ####[facility] [address] [place], [address] EST GFR - AA Normal >60 [facility] Comment on above: Result Comment: This specimen has been REJECTED due to Laboratory criteria:POSSIBLE Contamination.[email or web address] has been notified of need of recollection. Performed By: #### L 500.4050 ####[facility] [address] [place], [address] GAP Normal 5-15 [facility] Comment on above: Result Comment: This specimen has been REJECTED due to Laboratory criteria:POSSIBLE Contamination.[email or web address] has been notified of need of recollection. Performed By: #### L 500.4050 ####[facility] [address] [place], [address] GLU Normal 74-106 [facility] Comment on above: Result Comment: This specimen has been REJECTED due to Laboratory criteria:POSSIBLE Contamination.[email or web address] has been notified of need of recollection. Performed By: #### L 500.4050 ####[facility] [address] [place], [address] Potassium Normal 3.5-5.1 [facility] Comment on above: Result Comment: This specimen has been REJECTED due to Laboratory criteria:POSSIBLE Contamination.[email or web address] has been notified of need of recollection. Performed By: #### L 500.4050 ####[facility] [address] [place], [address] T BILI Normal 0.20-1.00 [facility] Comment on above: Result Comment: This specimen has been REJECTED due to Laboratory criteria:POSSIBLE Contamination.[email or web address] has been notified of need of recollection. Performed By: #### L 500.4050 ####[facility] [address] [facility] [address] T PROT Normal 6.4-8.2 [facility] Comment on above: Result Comment: This specimen has been REJECTED due to Laboratory criteria:POSSIBLE Contamination.[email or web address] has been notified of need of recollection. Performed By: #### L 500.4050 ####[facility] [address] [place], [address] Comprehensive Metabolic Profil Normal 136-145 [facility] Comment on above: Result Comment: This specimen has been REJECTED due to Laboratory criteria:POSSIBLE Contamination.[email or web address] has been notified of need of recollection. Performed By: #### L 500.4050 ####[facility] [address] [place], [address] Hemoglobin A1con 11-07-2024 HbA1c (Bld) [Mass fraction] 9.7 % High 3.8-5.6 [facility] Comment on above: Order Comment: ARGENTINA Gonzalez. PREVIOUS SPECIMEN REJECTED DUE TOCONTAMINATION. 11/07/24348 Zeferino R Garcia. Result Comment: Norm al < 5.7 % Prediabetic 5.7 - 6.4 % Diabetic >or= 6.5 % Please note range changes. Performed By: #### L 501.9985 ####[facility] [address] [place], [address] HbA1c (Bld) [Mass fraction] 10.3 % High 3.8-5.6 [facility] Comment on above: Order Comment: This specimen [...] range changes. Performed By: #### L 501.9985 ####[facility] [address] [place], [place], [address] Magnesiumon 11-07-2024 Magnesium [Mass/Vol] 4.3 mg/dL High 1.6-2.6 [facility] Comment on above: Result Comment: Mode rate Hemolysis, Result may be falsely increased. Performed By: #### L 501.5200 ####[facility] [address] [place], [address] Magnesium [Mass/Vol] 8.1 mg/dL Invalid Interpretation Code 1.6-2.6 [facility] Comment on above: Order Comment: Comme nts: Add onto previous sample please Result Comment: Crit ical Result(s) Called at: 13:52:08 11/07/2024 by:[facility] Results read back by same. Performed By: #### L 501.5200 ####[facility] [address] [place], [address] Magnesium [Mass/Vol] 6.2 mg/dL Invalid Interpretation Code 1.6-2.6 [facility] Comment on above: Order Comment: REDRA W. PREVIOUS SPECIMEN REJECTED DUE TOPOSSIBLE CONTAMINATION. 11/07/24 0342 Zeferino Garcia. Result Comment: Crit ical Result(s) Called at: 04:01:56 11/07/2024 by: Josefa. 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 SPOKE ABOUT RESULTS, NURSE OKWITH THEM. Results read back by same. Performed By: #### L 500.4050, L501.5200 ####[facility] [address] [place], [address] Partial Thromboplast Timeon 11-07-2024 aPTT Coag (Bld) [Time] 25.5 s Normal 24.1-36.2 [facility] Comment on above: Performed By: #### L 300.3900, L300.4310 ####[facility] [address] [place], [address] Prothrombin Time w/INRon INR Coag (PPP) [Relative time] 0.9 {INR} Normal [facility] Comment on above: Performed By: #### L 300.3900, L300.4310 ####[facility] [address] [place], [address] PT Coag (PPP) [Time] 12.8 s Normal 11.7-14.9 [facility] Comment on above: Performed By: #### L 300.3900, L300.4310 ####[facility] [address] [place], [address] Venous Blood Gason Blood Gas Type ALBERTO [facility] Comment on above: Performed By: #### L 9000.0810 ####[facility] [address] [place], [address] CO2 [Moles/Vol] 16 mmol/L Low 23-33 [facility] Comment on above: Performed By: #### L 9000.0810 ####[facility] [address] [place], [address] FI02 21.0 [facility] Comment on above: Performed By: #### L 9000.0810 ####[facility] [address] [place], [address] HCO3 (Bld) [Moles/Vol] 16 mmol/L Low 22-26 [facility] Comment on above: Performed By: #### L 9000.0810 ####[facility] [address] [place], [address] O2 Delivery Dev Not entered [facility] Comment on above: Performed By: #### L 9000.0810 ####[facility] [address] [place], [address] SITE Not entered [facility] Comment on above: Performed By: #### L 9000.0810 ####[facility] [address] [place], [address] VBG BE -10 mmol/L Low -1.0-3.5 [facility] Comment on above: Performed By: #### L 9000.0810 ####[facility] [address] [place], [address] VBG pCO2 28.6 mmHg Low 41-51 [facility] Comment on above: Performed By: #### L 9000.0810 ####[facility] [address] [place], [address] VBG pH 7.34 Normal 7.32-7.42 [facility] Comment on above: Performed By: #### L 9000.0810 ####[facility] [address] [place], [address] VBG PO2 49 mmHg High 25-40 [facility] Comment on above: Performed By: #### L 9000.0810 ####[facility] [address] [place], [address] VBG SO2 83 High 50-70 [facility] Comment on above: Performed By: #### L 9000.0810 ####[facility] [address] [place], [address] Amphetamine, UR Confirmon AMP UR CONFIRM Normal [facility] Comment on above: Result Comment: WRON G CONTAINER SENT TO [facility] Performed By: #### L 3380.2100, L3890.6300, L3890.6100, L505.5002 ####[facility] [address] [place], [address] BRCon 11-06-2024 RC Normal [facility] Comment on above: Result Comment: [id number] AP RC NOT [id number] AP RC TRANSFUSED 11/07/24 0325 Performed By: #### B RC ####[facility] [address] [place], [address] CBC W/Diff, Automatedon 01-0 8-2024 Absolute Lymph 2.21 X10 3/uL Normal 0.83-4.51 [facility] Comment on above: Performed By: #### L 3890.6005, L400.0001, L3410.9999, L100.0100 ####[facility] [address] [place], [address] Absolute Neut 15.2 X10 3/uL High 2.0-7.7 [facility] Comment on above: Performed By: #### L 3890.6005, L400.0001, L3410.9999, L100.0100 ####[facility] [address] [place], [address] Basophils/100 WBC (Bld) 0.3 % Normal 0-1 [facility] Comment on above: Performed By: #### L 3890.6005, L400.0001, L3410.9999, L100.0100 ####[facility] [address] [place], [address] Eosinophils/100 WBC (Bld) 0.0 % Normal 0-5 [facility] Comment on above: Performed By: #### L 3890.6005, L400.0001, L3410.9999, L100.0100 ####[facility] [address] [place], [address] Erythrocyte distribution width (RBC) [Ratio] 14.6 % Normal 11.6-14.6 [facility] Comment on above: Performed By: #### L 3890.6005, L400.0001, L3410.9999, L100.0100 ####[facility] [address] [place], [address] Hematocrit (Bld) [Volume fraction] 37.4 % Normal 37-47 [facility] Comment on above: Performed By: #### L 3890.6005, L400.0001, L3410.9999, L100.0100 ####[facility] [address] [place], [address] Hemoglobin (Bld) [Mass/Vol] 12.5 g/dL Normal 12.0-15.0 [facility] Comment on above: Performed By: #### L 3890.6005, L400.0001, L3410.9999, L100.0100 ####[facility] [address] [place], [address] IG% 1.100 High 0.0-0.9 [facility] Comment on above: Result Comment: IG% - Immature Granulocytes (promyelocytes, myelocytes andmetamyelocytes) > 1% indicates that a LEFT SHIFT is Present. Performed By: #### L 3890.6005, L400.0001, L3410.9999, L100.0100 ####[facility] [address] [place], [address] Lymphocytes/100 WBC (Bld) 11.9 % Low 19-41 [facility] Comment on above: Performed By: #### L 3890.6005, L400.0001, L3410.9999, L100.0100 ####[facility] [address] [place], [address] MCH (RBC) [Entitic mass] 26.7 pg Low 27.0-32.0 [facility] Comment on above: Performed By: #### L 3890.6005, L400.0001, L3410.9999, L100.0100 ####[facility] [address] [place], [address] MCHC (RBC) [Mass/Vol] 33.4 g/dL Normal 32-36 [facility] Comment on above: Performed By: #### L 3890.6005, L400.0001, L3410.9999, L100.0100 ####[facility] [address] [place], [address] MCV (RBC) [Entitic vol] 79.9 fL Low 81-99 [facility] Comment on above: Performed By: #### L 3890.6005, L400.0001, L3410.9999, L100.0100 ####[facility] [address] [place], [address] Monocytes/100 WBC (Bld) 4.8 % Normal 0-10 [facility] Comment on above: Performed By: #### L 3890.6005, L400.0001, L3410.9999, L100.0100 ####[facility] [address] [place], [address] Neutrophils/100 WBC (Bld) 81.9 % High 47-70 [facility] Comment on above: Performed By: #### L 3890.6005, L400.0001, L3410.9999, L100.0100 ####[facility] [address] [place], [address] Nucleated RBC (Bld) [#/Vol] 0 10*3/uL Normal 0-5 [facility] Comment on above: Performed By: #### L 3890.6005, L400.0001, L3410.9999, L100.0100 ####[facility] [address] [place], [address] Platelet mean volume (Bld) [Entitic vol] 11.6 fL Normal 6.2-12.0 [facility] Comment on above: Performed By: #### L 3890.6005, L400.0001, L3410.9999, L100.0100 ####[facility] [address] [place], [address] Platelets (Bld) [#/Vol] 152 10*3/uL Normal 150-450 [facility] Comment on above: Performed By: #### L 3890.6005, L400.0001, L3410.9999, L100.0100 ####[facility] [address] [place], [address] RBC (Bld) [#/Vol] 4.68 10*6/uL Normal 4.2-5.4 [facility] Comment on above: Performed By: #### L 3890.6005, L400.0001, L3410.9999, L100.0100 ####[facility] [address] [place], [address] RDW SD 41.6 fl Normal 35.1-43.9 [facility] Comment on above: Performed By: #### L 3890.6005, L400.0001, L3410.9999, L100.0100 ####[facility] [address] [place], [address] WBC (Bld) [#/Vol] 18.6 10*3/uL High 4.4-11.0 [facility] Comment on above: Performed By: #### L 3890.6005, L400.0001, L3410.9999, L100.0100 ####[facility] [address] [place], [address] Absolute Neut Normal 2.0-7.7 [facility] Comment on above: Result Comment: DUPL ICATE ORDER. SEE H247 FOR RESULTS Performed By: #### L 100.0100 ####[facility] [address], [address] HCT Normal 37-47 [facility] Comment on above: Result Comment: DUPL ICATE ORDER. SEE H247 FOR RESULTS Performed By: #### L 100.0100 ####[facility] [address] [place], [address] HGB Normal 12.0-15.0 [facility] Comment on above: Result Comment: DUPL ICATE ORDER. SEE H247 FOR RESULTS Performed By: #### L 100.0100 ####[facility] [address] [place], [address] MCH Normal 27.0-32.0 [facility] Comment on above: Result Comment: DUPL ICATE ORDER. SEE H247 FOR RESULTS Performed By: #### L 100.0100 ####[facility] [address] [place], [address] MCHC Normal 32-36 [facility] Comment on above: Result Comment: DUPL ICATE ORDER. SEE H247 FOR RESULTS Performed By: #### L 100.0100 ####[facility] [address] [place], [address] MCV Normal 81-99 [facility] Comment on above: Result Comment: DUPL ICATE ORDER. SEE H247 FOR RESULTS Performed By: #### L 100.0100 ####[facility] [address] [place], [address] NEUT% Normal 47-70 [facility] Comment on above: Result Comment: DUPL ICATE ORDER. SEE H247 FOR RESULTS Performed By: #### L 100.0100 ####[facility] [address] [place], [address] PLT Normal 150-450 [facility] Comment on above: Result Comment: DUPL ICATE ORDER. SEE H247 FOR RESULTS Performed By: #### L 100.0100 ####[facility] [address] [place], [address] RBC Normal 4.2-5.4 [facility] Comment on above: Result Comment: DUPL ICATE ORDER. SEE H247 FOR RESULTS Performed By: #### L 100.0100 ####[facility] [address] [place], [address] RDW CV Normal 11.6-14.6 [facility] Comment on above: Result Comment: DUPL ICATE ORDER. SEE H247 FOR RESULTS Performed By: #### L 100.0100 ####[facility] [address] [place], [address] RDW SD Normal 35.1-43.9 [facility] Comment on above: Result Comment: DUPL ICATE ORDER. SEE H247 FOR RESULTS Performed By: #### L 100.0100 ####[facility] [address] [place], [address] WBC Normal 4.4-11.0 [facility] Comment on above: Result Comment: DUPL ICATE ORDER. SEE H247 FOR RESULTS Performed By: #### L 100.0100 ####[facility] [address] [place], [address] Absolute Lymph 3.91 X10 3/uL Normal 0.83-4.51 [facility] Comment on above: Performed By: #### L 300.3900, L300.4310, L100.0100, L300.4700 ####[facility] [address] [place], [address] Absolute Neut 6.5 X10 3/uL Normal 2.0-7.7 [facility] Comment on above: Performed By: #### L 300.3900, L300.4310, L100.0100, L300.4700 ####[facility] [address] [place], [address] Basophils/100 WBC (Bld) 0.3 % Normal 0-1 [facility] Comment on above: Performed By: #### L 300.3900, L300.4310, L100.0100, L300.4700 ####[facility] [address] [place], [address] Eosinophils/100 WBC (Bld) 0.1 % Normal 0-5 [facility] Comment on above: Performed By: #### L 300.3900, L300.4310, L100.0100, L300.4700 ####[facility] [address] [place], [address] Erythrocyte distribution width (RBC) [Ratio] 14.4 % Normal 11.6-14.6 [facility] Comment on above: Performed By: #### L 300.3900, L300.4310, L100.0100, L300.4700 ####[facility] [address] [place], [address] Hematocrit (Bld) [Volume fraction] 42.1 % Normal 37-47 [facility] Comment on above: Performed By: #### L 300.3900, L300.4310, L100.0100, L300.4700 ####[facility] [address] [place], [address] Hemoglobin (Bld) [Mass/Vol] 13.5 g/dL Normal 12.0-15.0 [facility] Comment on above: Performed By: #### L 300.3900, L300.4310, L100.0100, L300.4700 ####[facility] [address] [place], [address] IG% 1.300 High 0.0-0.9 [facility] Comment on above: Result Comment: IG% - Immature Granulocytes (promyelocytes, myelocytes andmetamyelocytes) > 1% indicates that a LEFT SHIFT is Present. Performed By: #### L 300.3900, L300.4310, L100.0100, L300.4700 ####[facility] [address] [place], [address] Lymphocytes/100 WBC (Bld) 34.7 % Normal 19-41 [facility] Comment on above: Performed By: #### L 300.3900, L300.4310, L100.0100, L300.4700 ####[facility] [address] [place], [address] MCH (RBC) [Entitic mass] 26.0 pg Low 27.0-32.0 [facility] Comment on above: Performed By: #### L 300.3900, L300.4310, L100.0100, L300.4700 ####[facility] [address] [place], [address] MCHC (RBC) [Mass/Vol] 32.1 g/dL Normal 32-36 [facility] Comment on above: Performed By: #### L 300.3900, L300.4310, L100.0100, L300.4700 ####[facility] [address] [place], [address] MCV (RBC) [Entitic vol] 81.0 fL Normal 81-99 [facility] Comment on above: Performed By: #### L 300.3900, L300.4310, L100.0100, L300.4700 ####[facility] [address] [place], [address] Monocytes/100 WBC (Bld) 5.9 % Normal 0-10 [facility] Comment on above: Performed By: #### L 300.3900, L300.4310, L100.0100, L300.4700 ####[facility] [address] [place], [address] Neutrophils/100 WBC (Bld) 57.7 % Normal 47-70 [facility] Comment on above: Performed By: #### L 300.3900, L300.4310, L100.0100, L300.4700 ####[facility] [address] [place], [address] Nucleated RBC (Bld) [#/Vol] 0 10*3/uL Normal 0-5 [facility] Comment on above: Performed By: #### L 300.3900, L300.4310, L100.0100, L300.4700 ####[facility] [address] [place], [address] Platelet mean volume (Bld) [Entitic vol] 12.0 fL Normal 6.2-12.0 [facility] Comment on above: Performed By: #### L 300.3900, L300.4310, L100.0100, L300.4700 ####[facility] [address] [place], [address] Platelets (Bld) [#/Vol] 166 10*3/uL Normal 150-450 [facility] Comment on above: Performed By: #### L 300.3900, L300.4310, L100.0100, L300.4700 ####[facility] [address] [place], [address] RBC (Bld) [#/Vol] 5.20 10*6/uL Normal 4.2-5.4 [facility] Comment on above: Performed By: #### L 300.3900, L300.4310, L100.0100, L300.4700 ####[facility] [address] [place], [address] RDW SD 41.5 fl Normal 35.1-43.9 [facility] Comment on above: Performed By: #### L 300.3900, L300.4310, L100.0100, L300.4700 ####[facility] [address] [place], [address] WBC (Bld) [#/Vol] 11.3 10*3/uL High 4.4-11.0 [facility] Comment on above: Performed By: #### L 300.3900, L300.4310, L100.0100, L300.4700 ####[facility] [address] [place], [address] Absolute Neut Normal 2.0-7.7 [facility] Comment on above: Result Comment: DUPL ICATE. SEE 107 H225 Performed By: #### B TS, L100.0100 ####[facility] [address], [address] HCT Normal 37-47 [facility] Comment on above: Result Comment: DUPL ICATE. SEE 107 H225 Performed By: #### B TS, L100.0100 ####[facility] [address] [place], [address] HGB Normal 12.0-15.0 [facility] Comment on above: Result Comment: DUPL ICATE. SEE 107 H225 Performed By: #### Michelle TS, L100.0100 ####[facility] [address] [place], [address] MCH Normal 27.0-32.0 [facility] Comment on above: Result Comment: DUPL ICATE. SEE 107 H225 Performed By: #### B TS, L100.0100 ####[facility] [address] [place], [address] MCHC Normal 32-36 [facility] Comment on above: Result Comment: DUPL ICATE. SEE 107 H225 Performed By: #### B TS, L100.0100 ####[facility] [address] [place], [address] MCV Normal 81-99 [facility] Comment on above: Result Comment: DUPL ICATE. SEE 107 H225 Performed By: #### B TS, L100.0100 ####[facility] [address] [place], [address] NEUT% Normal 47-70 [facility] Comment on above: Result Comment: DUPL ICATE. SEE 0108 H225 Performed By: #### B TS, L100.0100 ####[facility] [address] [place], [address] PLT Normal 150-450 [facility] Comment on above: Result Comment: DUPL ICATE. SEE 0108 H225 Performed By: #### B TS, L100.0100 ####[facility] [address] [place], [address] RBC Normal 4.2-5.4 [facility] Comment on above: Result Comment: DUPL ICATE. SEE 0108 H225 Performed By: #### B TS, L100.0100 ####[facility] [address] [place], [address] RDW CV Normal 11.6-14.6 [facility] Comment on above: Result Comment: DUPL ICATE. SEE 0108 H225 Performed By: #### B TS, L100.0100 ####[facility] [address] [place], [address] RDW SD Normal 35.1-43.9 [facility] Comment on above: Result Comment: DUPL ICATE. SEE 0108 H225 Performed By: #### B TS, L100.0100 ####[facility] [address] [place], [address] WBC Normal 4.4-11.0 [facility] Comment on above: Result Comment: DUPL ICATE. SEE 0108 H225 Performed By: #### B TS, L100.0100 ####[facility] [address] [place], [address] Comprehensive Metabolic Prof ilon 11-06-2024 Albumin [Mass/Vol] 1.5 g/dL Low 3.2-5.0 [facility] Comment on above: Performed By: #### L 500.4050, L501.0900 ####[facility] [address] [place], [address] Albumin/Globulin [Mass ratio] 0.5 {ratio} Low 0.9-2.4 [facility] Comment on above: Performed By: #### L 500.4050, L501.0900 ####[facility] [address] [place], [address] ALK P 114 U/L Normal 45-117 [facility] Comment on above: Performed By: #### L 500.4050, L501.0900 ####[facility] [address] [place], [address] ALT [Catalytic activity/Vol] 13 U/L Normal 13-56 [facility] Comment on above: Performed By: #### L 500.4050, L501.0900 ####[facility] [address] [place], [address] AST [Catalytic activity/Vol] 25 U/L Normal 15-37 [facility] Comment on above: Performed By: #### L 500.4050, L501.0900 ####[facility] [address] [place], [address] Bilirubin [Mass/Vol] 0.20 mg/dL Normal 0.20-1.00 [facility] Comment on above: Result Comment: For patients on eltrombopag therapy, use of Dimension [place] TBIL is not recommended. Performed By: #### L 500.4050, L501.0900 ####[facility] [address] [place], [address] BUN/CRE 12.0 RATIO Normal 10-20 [facility] Comment on above: Performed By: #### L 500.4050, L501.0900 ####[facility] [address] [place], [address] CA,Total 7.6 mg/dL Low 8.5-10.1 [facility] Comment on above: Performed By: #### L 500.4050, L501.0900 ####[facility] [address] [place], [address] Chloride [Moles/Vol] 99 mmol/L Normal 98-107 [facility] Comment on above: Performed By: #### L 500.4050, L501.0900 ####[facility] [address] [place], [address] CO2 [Moles/Vol] 21.0 mmol/L Normal 21.0-32.0 [facility] Comment on above: Performed By: #### L 500.4050, L501.0900 ####[facility] [address] [place], [address] Creatinine [Mass/Vol] 1.33 mg/dL High 0.55-1.02 [facility] Comment on above: Result Comment: The validity of the calculated GFR GFRAA in patients over70 years has not been determined. Clinical correlation isessential. Performed By: #### L 500.4050, L501.0900 ####[facility] [address] [place], [address] EST GFR - AA 60 mL/min Normal >60 [facility] Comment on above: Result Comment: Afri can Zambian GFR Calc Performed By: #### L 500.4050, L501.0900 ####[facility] [address] [place], [address] GAP 8 Normal 5-15 [facility] Comment on above: Performed By: #### L 500.4050, L501.0900 ####[facility] [address] [place], [address] GFR/1.73 sq M.predicted among non-blacks MDRD (S/P/Bld) [Vol rate/Area] 49 mL/min/{1.73_m2} Low >60 [facility] Comment on above: Result Comment: Non- GFR Calc Performed By: #### L 500.4050, L501.0900 ####[facility] [address] [place], [address] Globulin (S) [Mass/Vol] 3.2 g/dL Normal 2.2-4.2 [facility] Comment on above: Performed By: #### L 500.4050, L501.0900 ####[facility] [address] [place], [address] Glucose [Mass/Vol] 289 mg/dL High 74-106 [facility] Comment on above: Result Comment: Gluc ose result greater than or equal to 200 mg/dLsuggests DIABETES MELLITUS per A.D.A. criteria. Performed By: #### L 500.4050, L501.0900 ####[facility] [address] [place], [address] Potassium [Moles/Vol] 5.6 mmol/L High 3.5-5.1 [facility] Comment on above: Performed By: #### L 500.4050, L501.0900 ####[facility] [address] [place], [address] Sodium [Moles/Vol] 128 mmol/L Low 136-145 [facility] Comment on above: Performed By: #### L 500.4050, L501.0900 ####[facility] [address] [place], [address] T PROT 4.7 g/dL Low 6.4-8.2 [facility] Comment on above: Performed By: #### L 500.4050, L501.0900 ####[facility] [address] [place], [address] Urea nitrogen [Mass/Vol] 16 mg/dL Normal 7-18 [facility] Comment on above: Performed By: #### L 500.4050, L501.0900 ####[facility] [address] [place], [address] Discharge Instructionon Discharge Instruction Normal [facility] Fibrinogenon 11-06-2024 FIBRINOGEN 506 mg/dl High 203-444 [facility] Comment on above: Performed By: #### L 300.4700 ####[facility] [address] [place], [address] FIBRINOGEN 591 mg/dl High 203-444 [facility] Comment on above: Performed By: #### L 300.3900, L300.4310, L100.0100, L300.4700 ####[facility] [address] [place], [address] H AND P Exam - OB/GYNon H&P Exam - DATE NIGHT SITTER Normal [facility] HIV - WCHon 11-06-2024 HIV Preliminary Reactive Abnormal Nonreactive [facility] Comment on above: Result Comment: Crit ical Result(s) Called at: 18:06:24 11/06/2024 by: RISHABH TO TAMAR RAJPUT . Results read back by same. SEND OUT PRESUMPTIVE REACTIVE SPECIMENS TO [facility] TEST NUMBER [id number] FOR CONFIRMATION. Performed By: #### L 3890.6005, L400.0001, L3410.9999, L100.0100 ####[facility] [address] [place], [address] Hepatitis B Surface Antigeno n 11-06-2024 HEP B Surf Ag Non-Reactive Normal Nonreactive [facility] Comment on above: Order Comment: Reaso n for Exam: npc Performed By: #### L 3380.2100, L3890.6300, L3890.6100, L505.5002 ####[facility] [address] [place], [address] Hepatitis C Antibodyon 11-06 Hepatitis C AB Non-Reactive Normal Nonreactive [facility] Comment on above: Order Comment: Reaso n for Exam: npc Result Comment: Non Reactive: < 0.8 Equivocal: >/= 0.8 to < 1.0 Reactive: >/= 1.0The CDC requires that a reactive/equivocal HCV antibodyresult be sent out for confirmation. HCV Quant by PCRtesting. Performed By: #### L 3380.2100, L3890.6300, L3890.6100, L505.5002 ####[facility] [address] [place], [address] L509.8000on 11-06-2024 Syphilis Abs Non-Reactive Normal [facility] Comment on above: Performed By: #### L 509.8000, L509.4005 ####[facility] [address] [place], [address] M8200.2203on 11-06-2024 M8200.2203 Pending Chlamydia Trachomatis PCR NEGATIVE for Chlamydia trachomatis N. gonorrhoeae PCR Negative for N. gonorrhoeae Normal [facility] Comment on above: Performed By: #### M 8200.2203 ####[facility] [address] [place], [address] Operative Reporton Operative Report Normal [facility] Partial Thromboplast Timeon 11-06-2024 aPTT Coag (Bld) [Time] 27.3 s Normal 24.1-36.2 [facility] Comment on above: Performed By: #### L 300.3900, L300.4310, L100.0100, L300.4700 ####[facility] [address] [place], [address] Protein+Creatinine Ratio,Uri neon 11-06-2024 PROT:CRE RATIO 3224 mg/g CRE High 0-200 [facility] Comment on above: Performed By: #### L 500.4050, L501.0900 ####[facility] [address] [place], [address] Protein (U) [Mass/Vol] 239.9 mg/dL High <11.9 [facility] Comment on above: Performed By: #### L 500.4050, L501.0900 ####[facility] [address] [place], [address] UR CREAT 74.40 mg/dL Normal NO RANGE EST. [facility] Comment on above: Performed By: #### L 500.4050, L501.0900 ####[facility] [address] [place], [address] Prothrombin Time w/INRon INR Coag (PPP) [Relative time] 1.0 {INR} Normal [facility] Comment on above: Performed By: #### L 300.3900, L300.4310, L100.0100, L300.4700 ####[facility] [address] [place], [address] PT Coag (PPP) [Time] 12.9 s Normal 11.7-14.9 [facility] Comment on above: Performed By: #### L 300.3900, L300.4310, L100.0100, L300.4700 ####[facility] [address] [place], [address] Rubella IgGon 11-06-2024 Rubella IgG Equiv Normal Nonreactive [facility] Comment on above: Result Comment: Anti body Results Interpretation of Immune Status Non Reactive Presumed Non-Immune Equivocal Equivocal Reactive Presumed Immune Performed By: #### L 509.8000, L509.4005 ####[facility] [address] [place], [address] Type AND Screenon 11-06-2024 ABO and Rh group Nom (Bld) Blood group A Rh(D) positive Normal [facility] Comment on above: Order Comment: SC-SE CTION Performed By: #### B TS, L100.0100 ####[facility] [address] [place], [address] Ur Drg Scn w/Rflx AMPH Confi rmon 11-06-2024 Amphetamines Ql (U) Positive Abnormal <1000 ng/mL [facility] Comment on above: Performed By: #### L 3380.2100, L3890.6300, L3890.6100, L505.5002 ####[facility] [address] [place], [address] BARBITIURATES Negative Normal < 200 ng/mL [facility] Comment on above: Performed By: #### L 3380.2100, L3890.6300, L3890.6100, L505.5002 ####[facility] [address] [place], [address] BENZODIAZIPINE Positive Abnormal < 200 ng/mL [facility] Comment on above: Performed By: #### L 3380.2100, L3890.6300, L3890.6100, L505.5002 ####[facility] [address] [place], [address] Cocaine Ql (U) Negative Normal < 300 ng/mL [facility] Comment on above: Performed By: #### L 3380.2100, L3890.6300, L3890.6100, L505.5002 ####[facility] [address] [place], [address] ECSTACY Positive Abnormal < 500 ng/mL [facility] Comment on above: Performed By: #### L 3380.2100, L3890.6300, L3890.6100, L505.5002 ####[facility] [address] [place], [address] Methadone Ql (U) Negative Normal < 300 ng/mL [facility] Comment on above: Performed By: #### L 3380.2100, L3890.6300, L3890.6100, L505.5002 ####[facility] [address] [place], [address] Opiates Ql (U) Positive Abnormal < 300 ng/mL [facility] Comment on above: Performed By: #### L 3380.2100, L3890.6300, L3890.6100, L505.5002 ####[facility] [address] [place], [address] PCP Negative Normal < 25 ng/mL [facility] Comment on above: Performed By: #### L 3380.2100, L3890.6300, L3890.6100, L505.5002 ####[facility] [address] [place], [address] THC Negative Normal < 50 ng/mL [facility] Comment on above: Performed By: #### L 3380.2100, L3890.6300, L3890.6100, L505.5002 ####[facility] [address] [place], [address] VISTA UDS PH 5 Normal [facility] Comment on above: Performed By: #### L 3380.2100, L3890.6300, L3890.6100, L505.5002 ####[facility] [address] [place], [address] Urinalysis, Completeon 11-06 RBC 10-25 SEEN Normal 0-5 [facility] Comment on above: Order Comment: MEENAKSHI TER SPECIMEN Performed By: #### L 3890.6005, L400.0001, L3410.9999, L100.0100 ####[facility] [address] [place], [address] CAST,FINE GRAN 0-5 SEEN Normal 0-5 [facility] Comment on above: Order Comment: MEENAKSHI TER SPECIMEN Performed By: #### L 3890.6005, L400.0001, L3410.9999, L100.0100 ####[facility] [address] [place], [address] CAST,HYALINE 0-5 SEEN Normal 0-5 [facility] Comment on above: Order Comment: MEENAKSHI TER SPECIMEN Performed By: #### L 3890.6005, L400.0001, L3410.9999, L100.0100 ####[facility] [address] [place], [address] EPI,TRANSITION 5-10 SEEN Normal 0-5 [facility] Comment on above: Order Comment: MEENAKSHI TER SPECIMEN Performed By: #### L 3890.6005, L400.0001, L3410.9999, L100.0100 ####[facility] [address] [place], [address] BACTERIA 2+ /hpf Normal None Seen [facility] Comment on above: Order Comment: MEENAKSHI TER SPECIMEN Performed By: #### L 3890.6005, L400.0001, L3410.9999, L100.0100 ####[facility] [address] [place], [address] EPI,SQUAMOUS 0-5 SEEN Normal 5-10 [facility] Comment on above: Order Comment: MEENAKSHI TER SPECIMEN Performed By: #### L 3890.6005, L400.0001, L3410.9999, L100.0100 ####[facility] [address] [place], [address] WBC 25-50 SEEN Normal 0-5 [facility] Comment on above: Order Comment: MEENAKSHI TER SPECIMEN Performed By: #### L 3890.6005, L400.0001, L3410.9999, L100.0100 ####[facility] [address] [place], [address] Mucus Ql (Urine sed) 0 SEEN Normal [facility] Comment on above: Order Comment: [facility] SPECIMEN Performed By: #### L 3890.6005, L400.0001, L3410.9999, L100.0100 ####[facility] [address] [place], [address] Urine Drug Screen (VISTA)on 11-06-2024 AMPHETAMINES Normal <1000 ng/mL [facility] Comment on above: Result Comment: PER [place] DUPLICATE Performed By: #### L 505.5000 ####[facility] [address] [place], [phone] BARBITIURATES Normal < 200 ng/mL [facility] Comment on above: Result Comment: PER [place] DUPLICATE Performed By: #### L 505.5000 ####[facility] [address] [place], [phone] BENZODIAZIPINE Normal < 200 ng/mL [facility] Comment on above: Result Comment: PER [place] DUPLICATE Performed By: #### L 505.5000 ####[facility] [address] [place], [phone] COCAINE Normal < 300 ng/mL [facility] Comment on above: Result Comment: PER [place] DUPLICATE Performed By: #### L 505.5000 ####[facility] [address] [place], [phone] DRUG CONFIRM Normal [facility] Comment on above: Result Comment: PER [place] DUPLICATE Performed By: #### L 505.5000 ####[facility] [address] [place], [place], [phone] ECSTACY Normal < 500 ng/mL [facility] Comment on above: Result Comment: PER [place] DUPLICATE Performed By: #### L 505.5000 ####[facility] [address] [place], [address] METHADONE Normal < 300 ng/mL [facility] Comment on above: Result Comment: PER AMISHRN DUPLICATE Performed By: #### L 505.5000 ####[facility] [address] [place], [address] OPIATES Normal < 300 ng/mL [facility] Comment on above: Result Comment: PER AMISHRN DUPLICATE Performed By: #### L 505.5000 ####[facility] [address] [place], [address] PCP Normal < 25 ng/mL [facility] Comment on above: Result Comment: PER AMISHRN DUPLICATE Performed By: #### L 505.5000 ####[facility] [address] [place], [address] THC Normal < 50 ng/mL [facility] Comment on above: Result Comment: PER AMISHRN DUPLICATE Performed By: #### L 505.5000 ####[facility] [address] [place], [address] VISTA UDS PH Normal [facility] Comment on above: Result Comment: PER AMISHRN DUPLICATE Performed By: #### L 505.5000 ####[facility] [address] [place], [address] AMPHETAMINES Normal <1000 ng/mL [facility] Comment on above: Result Comment: Ghazala beltran via OM: Ordered Performed By: #### L 505.5000 ####[facility] [address] [place], [address] BARBITIURATES Normal < 200 ng/mL [facility] Comment on above: Result Comment: Ghazala beltran via OM: Ordered Performed By: #### L 505.5000 ####[facility] [address] [place], [address] BENZODIAZIPINE Normal < 200 ng/mL [facility] Comment on above: Result Comment: Canc elled via OM: MD Ordered Performed By: #### L 505.5000 ####[facility] [address] [place], [address] COCAINE Normal < 300 ng/mL [facility] Comment on above: Result Comment: Canc elled via OM: MD Ordered Performed By: #### L 505.5000 ####[facility] [address] [place], [address] DRUG CONFIRM Normal [facility] Comment on above: Result Comment: Canc elled via OM: MD Ordered Performed By: #### L 505.5000 ####[facility] [address] [place], [address] ECSTACY Normal < 500 ng/mL [facility] Comment on above: Result Comment: Canc elled via OM: MD Ordered Performed By: #### L 505.5000 ####[facility] [address] [place], [address] METHADONE Normal < 300 ng/mL [facility] Comment on above: Result Comment: Canc elled via OM: MD Ordered Performed By: #### L 505.5000 ####[facility] [address] [place], [address] OPIATES Normal < 300 ng/mL [facility] Comment on above: Result Comment: Canc elled via OM: MD Ordered Performed By: #### L 505.5000 ####[facility] [address] [place], [address] PCP Normal < 25 ng/mL [facility] Comment on above: Result Comment: Canc elled via OM: MD Ordered Performed By: #### L 505.5000 ####[facility] [address] [place], [address] THC Normal < 50 ng/mL [facility] Comment on above: Result Comment: Canc elled via OM: MD Ordered Performed By: #### L 505.5000 ####[facility] [address] [place], [place], [address] VISTA UDS PH Normal [facility] Comment on above: Result Comment: Ghazala beltran via OM: Ordered Performed By: #### L 505.5000 ####[facility] [address] [place], [place], [address] Gram stain for investigation of transfusion reactionon 02-10-2022 Microscopic observation Gram stain Nom (Unsp spec) [facility] Work Phone: Thin prep Papanicolaou smear with manual screeningon 02-10-2022 Genital Culture Presumptive C albicans [facility] Work Phone: CNPNon 10-15-2021 [facility] BERNADETTE FAUST ([id number]) 1995 [facility] Date Time Provider Department 10/15/21 KATERYNA FARAH During your visit today, we [...] AQ) 55 mcg nasal inhaler Use 1 [place] in the nose as needed. - gabapentin [...] (more content not included)... Normal [facility] Albumin/Creat Ratioon 2020 Albumin Urine Random <12.0 Normal [facility] Comment on above: Performed By: #### U ACR ####[facility] [place], [place] [phone] Albumin/Creat Ratio Not calculated Normal <30 [facility] Comment on above: Performed By: #### U ACR ####[facility] [place], [place] [phone] Creatinine,Urine,Ran 23.0 mg/dL Normal 20-300 [facility] Comment on above: Performed By: #### U ACR ####[facility] [place], [place] [phone] C-Peptideon 10-14-2021 C-Peptide 0.8 ng/mL Normal 0.8-3.9 [facility] Comment on above: Performed By: #### G ADCAB, LIPB, CPEPT ####[facility] [place], [place] [phone] CT NECK SOFT TISSUE W IVCONo n 10-14-2021 CT NECK SOFT TISSUE W IVCON * * *Final Report* * * DATE OF EXAM: Oct 14 2021 11:32AM [facility] 0013 - CT NECK SOFT TISSUE W [...] demonstrated enhancement/stranding suggesting infectious or inflammatory lymphadenitis. Sr. Consultant: PSCB Transcribe Date/Time: Oct 14 2021 11:37A Dictated by : DS VALLE MD This examination was interpreted and the report reviewed and electronically signed by: SD VALLE MD on Oct 14 2021 12:07PM EST [id number] Normal [facility] Glutamic Ac Decar Abon 10-14 Glutam Ac Dec Ab Ql Negative Normal Negative [facility] Comment on above: Performed By: #### G ADCAB, LIPB, CPEPT ####[place] [address], [place] [phone] Glutamic Ac Decar Ab <5.0 Normal <5.1 [facility] Comment on above: Performed By: #### G ADCAB, LIPB, CPEPT ####[address] [place], [place] [phone] Lipid Panel, [facility] 021 Cholesterol [Mass/Vol] 143 mg/dL Normal <200 [facility] Comment on above: Result Comment: <200 mg/dL, Desirable 200-239 mg/dL, Borderline high >239 mg/dL, High Performed By: #### G ADCAB, LIPB, CPEPT ####[address] [phone] Cholesterol in HDL [Mass/Vol] 60 mg/dL Normal >39 [facility] Comment on above: Result Comment: 40-5 9 mg/dL, Acceptable >59 mg/dL, High: Negative risk factor for coronary heart disease <40 mg/dL, Low: Positive risk factor for coronary heart disease Performed By: #### G ADCAB, LIPB, CPEPT ####[address] [phone] Cholesterol in LDL [Mass/Vol] 73 mg/dL Normal <100 [facility] Comment on above: Result Comment: <100 mg/dL, Optimal 100-129 mg/dL, Near optimal/above optimal 130-159 mg/dL, Borderline high 160-189 mg/dL, High >189 mg/dL, Very high Secondary prevention optimal LDL Cholesterol levels are recommended to be < 70 mg/dL Performed By: #### G ADCAB, LIPB, CPEPT ####[place] [address], [place] [phone] Fasting Time 10 hrs Normal [facility] Comment on above: Performed By: #### G ADCAB, LIPB, CPEPT ####[place] [address] [place], [place] [phone] LDL:HDL Ratio 1.22 Normal <2.54 [facility] Comment on above: Result Comment: Minnie hanley: 1. National Cholesterol Education Program ATP III Guideline At-A-Glance Quick Desk Reference: National Heart, Lung, and Blood [place]. National Institutes of Health. 2001: NIH Publication No. 01-3305. 2. An International Atherosclerosis Society position paper: global recommendations for the management of dyslipidemia: executive summary, Atherosclerosis. 2014: 232(2):410-413. Performed By: #### G ADCAB, LIPB, CPEPT ####[place] [phone] Non HDL Cholesterol 83 mg/dL Normal <130 [facility] Comment on above: Result Comment: <130 mg/dL, Optimal 130-159 mg/dL, Near optimal/above optimal 160-189 mg/dL, Borderline high 190-219 mg/dL, High >219 mg/dL, Very high Secondary prevention optimal non HDL Cholesterol levels are recommended to be < 100 mg/dL Performed By: #### G ADCAB, LIPB, CPEPT ####[place] [phone] TC:HDL Ratio 2.38 Normal <5.10 [facility] Comment on above: Performed By: #### G ADCAB, LIPB, CPEPT ####[place] [phone] Triglyceride [Mass/Vol] 48 mg/dL Normal <150 [facility] Comment on above: Result Comment: <150 mg/dL, Normal 150-199 mg/dL, Borderline high 200-499 mg/dL, High >499 mg/dL, Very high Performed By: #### G ADCAB, LIPB, CPEPT ####[address] [phone] VLDL Cholesterol 10 mg/dL Normal <30 [facility] Comment on above: Performed By: #### G ADCAB, LIPB, CPEPT ####[facility] [address] [place], [place] [phone] [facility] (for [facility] use only )on 10-14-2021 Albumin [Mass/Vol] 4.3 g/dL Normal 3.9-4.9 [facility] ALP [Catalytic activity/Vol] 69 U/L Normal 34-123 [facility] ALT [Catalytic activity/Vol] 16 U/L Normal 7-38 [facility] Anion gap [Moles/Vol] 15 mmol/L Normal 9-18 [facility] AST [Catalytic activity/Vol] 14 U/L Normal 13-35 [facility] Bilirubin [Mass/Vol] 0.4 mg/dL Normal 0.2-1.3 [facility] Calcium [Mass/Vol] 9.1 mg/dL Normal 8.5-10.2 [facility] Chloride [Moles/Vol] 98 mmol/L Normal 97-105 [facility] CO2 [Moles/Vol] 23 mmol/L Normal 22-30 [facility] Creatinine [Mass/Vol] 0.79 mg/dL Normal 0.58-0.96 [facility] eGFR- Amer. >60 Normal [facility] eGFR-All Other Races >60 Normal [facility] Comment on above: Result Comment: eGFR [...] [email or web address]/professionals/kdoqi/gfr_calculator. Glucose [Mass/Vol] 182 mg/dL High 74-99 [facility] Comment on above: Result Comment: The [place] Diabetes Association (ADA) provides guidance for cutoff [...] Standards of Medical Care in Diabetes 2016, [place] Diabetes Association. Diabetes Care. 2016.39(Suppl 1). Potassium [Moles/Vol] 3.6 mmol/L Low 3.7-5.1 [facility] Protein [Mass/Vol] 6.7 g/dL Normal 6.3-8.0 [facility] Sodium [Moles/Vol] 136 mmol/L Normal 136-144 [facility] Urea nitrogen [Mass/Vol] 15 mg/dL Normal 7-21 [facility] Remote HBA1C (for [facility] use on ly)on 10-14-2021 Glucose [Mass/Vol] 186 mg/dL Normal [facility] Comment on above: Result Comment: eAG: (Estimated average glucose) is a calculated value from HgbA1c and is loss control representative of the average blood glucose level in the last 2-3 month period. Performed By: #### R HBA1C ####[facility] [address] [place], [place] [phone] HbA1c (Bld) [Mass fraction] 8.1 % High 4.3-5.6 [facility] Comment on above: Result Comment: Amer ican Diabetes Association guidelines indicate that patients with HgbA1c in the range 5.7-6.4% are at increased risk for development of diabetes, and intervention by lifestyle modification may be beneficial. HgbA1c greater or equal to 6.5% is considered diagnostic of diabetes. Performed By: #### R HBA1C ####[facility] [address] [place], [place] [phone] Mary 10-08-2021 ADILSON Telephone (KRISTIEWS) BERNADETTE FAUST ([id number]) 1995 [facility] Date Time Provider Department 10/08/21 KATERYNA FARAH [...] Pt would like rx's to go to [facility] in [facility]. [place] [facility] has been closed and she hasn't been able to orange picker her meds yet. Advised pt would [...] tabletRfl: 1 C-PEPTIDE BLD [SQCPEPT] Order #: [id number] FUTURE GLUTAMIC AC DECARBOXYLASE AB [SQGADCAB] Order #: [id number] FUTURE POTASSIUM BLD [SQK1] Order #: [id number] FUTURE Prescriptions as of 10/08/2021 - Lancets [...] (more content not included)... Normal [facility] Albumin/Creat Ratioon 2020 Albumin Urine Random <12.0 Normal [facility] Comment on above: Performed By: #### U ACR ####[facility] [place], [place] [phone] Albumin/Creat Ratio Not calculated Normal <30 [facility] Comment on above: Performed By: #### U ACR ####[facility] [address] [place], [place] [phone] Creatinine,Urine,Ran 5.6 mg/dL Low 20-300 [facility] Comment on above: Performed By: #### U ACR ####[facility] [address] [place], [place] [phone] CNOVon 10-07-2021 CNOV Office Visit (FAMPWS ) NAISAURABERNADETTE ([id number]) 1995 [facility] Date Time Provider Department 10/07/21 2:00 PM [facility] During your visit today, we recorded the following information about you: Temperature Pulse Respiration Blood pressure 98.9 degrees 96/minute 18/minute 112/80 Weight 64.9 kg Kateryna Farah PA-C 10/07/2021 2:34 PM Signed Please schedule a visit with your PCP team Kateryna Farah PA-C 10/07/2021 2:53 PM Signed Chief Complaint Patient presents with: swollen lymph node HPI Bernadette Monzonisaura is a 26 year old female who [...] affective disorder (HCC) 10/01/2018 - Breast cancer ([facility]) - Chronic appendicitis 2006 S/P lap appendectomy. - Family history of defects 05/27/2013 05/27/2013 Father of the baby was born with a hole in his heart. No surgical correction needed. Father the baby's niece born with spina bifida. Patient's first cousin diagnosed with Asperger's Syndrome. TKRN - FRACTURE 2004 FOOT - Gestational diabetes 10/31/2013 - Migraine - Stroke ([facility]) - Type 2 diabetes mellitus ([facility]) - Unspecified asthma(493.90) EXERCISE INDUCED Previous Surgical [...] (more content not included)... Normal [facility] Comp Metabolic Panelon 10-07 Albumin [Mass/Vol] 4.3 g/dL Normal 3.9-4.9 [facility] Comment on above: Performed By: #### C MP, HBA1C, LIPNF ####[facility] [address] [place], [place] [phone] ALP [Catalytic activity/Vol] 76 U/L Normal 34-123 [facility] Comment on above: Performed By: #### C MP, HBA1C, LIPNF ####[facility], [place] [phone] ALT [Catalytic activity/Vol] 19 U/L Normal 7-38 [facility] Comment on above: Performed By: #### C MP, HBA1C, LIPNF ####[facility] [address], [place] [phone] Anion gap [Moles/Vol] 11 mmol/L Normal 9-18 [facility] Comment on above: Performed By: #### C MP, HBA1C, LIPNF ####[place] [address], [place] [phone] AST [Catalytic activity/Vol] 19 U/L Normal 13-35 [facility] Comment on above: Performed By: #### C MP, HBA1C, LIPNF ####[place] [address], [place] [phone] Bilirubin [Mass/Vol] 0.4 mg/dL Normal 0.2-1.3 [facility] Comment on above: Performed By: #### C MP, HBA1C, LIPNF ####[place] [address], [place] [phone] Calcium [Mass/Vol] 8.9 mg/dL Normal 8.5-10.2 [facility] Comment on above: Performed By: #### C MP, HBA1C, LIPNF ####[place] [address], [place] [phone] Chloride [Moles/Vol] 103 mmol/L Normal 97-105 [facility] Comment on above: Performed By: #### C MP, HBA1C, LIPNF ####[facility], [place] [phone] CO2 [Moles/Vol] 26 mmol/L Normal 22-30 [facility] Comment on above: Performed By: #### C MP, HBA1C, LIPNF ####[facility], [place] [phone] Creatinine [Mass/Vol] 0.93 mg/dL Normal 0.58-0.96 [facility] Comment on above: Performed By: #### C MP, HBA1C, LIPNF ####[facility] [place], [place] [phone] eGFR- Amer. >60 Normal [facility] Comment on above: Performed By: #### C MP, HBA1C, LIPNF ####[facility] [place], [place] [phone] eGFR-All Other Races >60 Normal [facility] Comment on above: Result Comment: eGFR [...] website at kidney.org/professionals/kdoqi/gfr_calculator. Performed By: #### C MP, HBA1C, LIPNF ####[facility] [address] [place], [place] [phone] Glucose [Mass/Vol] 148 mg/dL High 74-99 [facility] Comment on above: Result Comment: The [place] Diabetes Association (ADA) provides guidance for cutoff [...] Standards of Medical Care in Diabetes 2016, [place] Diabetes Association. Diabetes Care. 2016.39(Suppl 1). Performed By: #### C MP, HBA1C, LIPNF ####[place] [address], [place] [phone] Potassium [Moles/Vol] 3.5 mmol/L Low 3.7-5.1 [facility] Comment on above: Performed By: #### C MP, HBA1C, LIPNF ####[place] [address] [place], [place] [phone] Protein [Mass/Vol] 6.9 g/dL Normal 6.3-8.0 [facility] Comment on above: Performed By: #### C MP, HBA1C, LIPNF ####[place] [address] [place], [place] [phone] Sodium [Moles/Vol] 140 mmol/L Normal 136-144 [facility] Comment on above: Performed By: #### C MP, HBA1C, LIPNF ####[address] [phone] Urea nitrogen [Mass/Vol] 9 mg/dL Normal 7-21 [facility] Comment on above: Performed By: #### C MP, HBA1C, LIPNF ####[place] [address] [place], [place] [phone] Hemoglobin A1con 10-07-2021 Glucose [Mass/Vol] 186 mg/dL Normal [facility] Comment on above: Result Comment: eAG: (Estimated average glucose) is a calculated value from HgbA1c and is loss control representative of the average blood glucose level in the last 2-3 month period. Performed By: #### C MP, HBA1C, LIPNF ####[place] [address] [place], [place] [phone] HbA1c (Bld) [Mass fraction] 8.1 % High 4.3-5.6 [facility] Comment on above: Result Comment: Amer [facility] Diabetes Association guidelines indicate that patients with HgbA1c in the range 5.7-6.4% are at increased risk for development of diabetes, and intervention by lifestyle modification may be beneficial. HgbA1c greater or equal to 6.5% is considered diagnostic of diabetes. Performed By: #### C MP, HBA1C, LIPNF ####[address] [phone] Lipid Panel, Nonfaston 10-07 Cholesterol [Mass/Vol] 135 mg/dL Normal <200 [facility] Comment on above: Result Comment: <200 mg/dL, Desirable 200-239 mg/dL, Borderline high >239 mg/dL, High Performed By: #### C MP, HBA1C, LIPNF ####[address] [phone] HDL Cholesterol, NF 53 mg/dL Normal >39 [facility] Comment on above: Result Comment: 40-5 9 mg/dL, Acceptable >59 mg/dL, High: Negative risk factor for coronary heart disease <40 mg/dL, Low: Positive risk factor for coronary heart disease Performed By: #### C MP, HBA1C, LIPNF ####[address] [phone] LDL Cholesterol, NF 69 mg/dL Normal <100 [facility] Comment on above: Result Comment: <100 mg/dL, Optimal 100-129 mg/dL, Near optimal/above optimal 130-159 mg/dL, Borderline high 160-189 mg/dL, High >189 mg/dL, Very high Secondary prevention optimal LDL Cholesterol levels are recommended to be < 70 mg/dL Performed By: #### C MP, HBA1C, LIPNF ####[address] [phone] LDL/HDL Ratio, NF 1.30 mg/dL Normal <2.54 [facility] Comment on above: Result Comment: Minnie hanley: 1. National Cholesterol Education Program ATP III Guideline At-A-Glance Quick Desk Reference: National Heart, Lung, and Blood [place]. National Institutes of Health. 2001: NIH Publication No. 01-3305. 2. An International Atherosclerosis Society position paper: global recommendations for the management of dyslipidemia: executive summary, Atherosclerosis. 2014: 232(2):410-413. Performed By: #### C MP, HBA1C, LIPNF ####[place] [phone] Non HDL Chol, NF 82 mg/dL Normal <130 [facility] Comment on above: Result Comment: <130 mg/dL, Optimal 130-159 mg/dL, Near optimal/above optimal 160-189 mg/dL, Borderline high 190-219 mg/dL, High >219 mg/dL, Very high Secondary prevention optimal non HDL Cholesterol levels are recommended to be < 100 mg/dL Performed By: #### C MP, HBA1C, LIPNF ####[place] [phone] T Chol/HDL Ratio NF 2.55 mg/dL Normal <5.10 [facility] Comment on above: Performed By: #### C MP, HBA1C, LIPNF ####[place] [phone] Triglycerides, NF 65 mg/dL Normal <150 [facility] Comment on above: Result Comment: <150 mg/dL, Normal 150-199 mg/dL, Borderline high 200-499 mg/dL, High >499 mg/dL, Very high Performed By: #### C MP, HBA1C, LIPNF ####[place] [address] [phone] VLDL Cholesterol, NF 13 mg/dL Normal <30 [facility] Comment on above: Performed By: #### C MP, HBA1C, LIPNF ####[place] [address] [place] [phone] Urinalysis with Microscopico n 10-07-2021 Bilirubin, Urine Negative Normal Negative [facility] Comment on above: Performed By: #### U AWMIC ####[place] [address] [place] [phone] Clarity (U) Clear Normal Clear [facility] Comment on above: Performed By: #### U AWMIC ####[place] [address] [place] [phone] Color (U) Colorless Critically abnormal Yellow [facility] Comment on above: Performed By: #### U AWMIC ####[place] [address] [phone] Comments SEE COMMENT Normal [facility] Comment on above: Result Comment: N/A Performed By: #### U AWMIC ####[place] [address] [phone] Epithelial cells LM Ql (Urine sed) SEE COMMENT Normal [facility] Comment on above: Result Comment: Few Squamous Epithelial Cells Performed By: #### U AWMIC ####[place] [address] [phone] Glucose Ql (U) Negative Normal Negative [facility] Comment on above: Performed By: #### U AWMIC ####[place] [address] [phone] Hemoglobin/Blood,Ur Negative Normal Negative [facility] Comment on above: Performed By: #### U AWMIC ####[place] [address] [place] [phone] Ketones Ql (U) Negative Normal Negative [facility] Comment on above: Performed By: #### U AWMIC ####[facility] [place] [phone] Leukest Negative Normal Negative [facility] Comment on above: Performed By: #### U AWMIC ####[place] [address], [place] [phone] Nitrite Ql (U) Negative Normal Negative [facility] Comment on above: Performed By: #### U AWMIC ####[place] [address], [place] [phone] pH (U) 7.0 [pH] Normal 5.0-8.0 [facility] Comment on above: Performed By: #### U AWMIC ####[place] [address], [place] [phone] Protein, Urine Negative Normal Negative [facility] Comment on above: Performed By: #### U AWMIC ####[place] [address], [place] [phone] RBC 0-3 Normal 0-3 [facility] Comment on above: Performed By: #### U AWMIC ####[place] [address], [place] [phone] Specific [place], Ur 1.001 Low 1.005-1.030 [facility] Comment on above: Performed By: #### U AWMIC ####[place] [address], [place] [phone] Urine Olegario Comment SEE COMMENT Normal [facility] Comment on above: Result Comment: N/A Performed By: #### U AWMIC ####[place] [address], [place] [phone] Urobilinogen (U) [Mass/Vol] Negative Normal Negative [facility] Comment on above: Performed By: #### U AWMIC ####[place] [address], [place] [phone] WBC 0-5 Normal 0-5 [facility] Comment on above: Performed By: #### U AWMIC ####[place] [address], [place] [phone] CNOVon 09-07-2021 CNOV Office Visit (FAMPWS ) BERNADETTE FAUST ([id number]) 1995 [facility] Date Time Provider Department 09/07/21 2:00 PM JENN LOPEZ During your visit today, we recorded the following information about you: Pulse Respiration Blood pressure 92/minute 18/minute 118/88 Jenn Lopez APRN.[employer] 09/07/2021 2:41 PM Signed This is a 26 year old female who presents today with: Patient presents with: Recheck: Urg Care follow up HISTORY OF PRESENT ILLNESS: Bernadette Faust is a 26 year old female. Patient presents with: Recheck: Urg Care follow up Pt presents today for urgent care follow-up. Refers was living in a house that was having band sewer back-ups. Refers that there was constant [...] AQ) 55 mcg nasal inhaler Use 1 [place] in the nose as needed. - gabapentin [...] mouth three (more content not included)... Normal [facility] Mary 09-07-2021 [facility] Telephone (UCWSTR) BERNADETTE FAUST ([id number]) 1995 [address] [facility] Date Time Provider Department 09/07/21 JOHN GUILLEN [facility] During your visit today, we recorded the [...] 09/08/2021 10:37 AM Signed Pt notified via [employer]. Fabiana Yoan Guaman Allergies As of Date: [...] AQ) 55 mcg nasal inhaler Use 1 [place] in the nose as needed. - gabapentin [...] (more content not included)... Normal [facility] CBC and Differentialon 09-06 Abs Baso 0.05 k/uL Normal <0.11 [facility] Comment on above: Performed By: #### C BCDIF ####[facility] [address] [place], [place] [phone] Abs Kershaw 0.53 k/uL Normal <0.87 [facility] Comment on above: Performed By: #### C BCDIF ####[facility] [address], [place] [phone] Abs Neut 3.80 k/uL Normal 1.45-7.50 [facility] Comment on above: Performed By: #### C BCDIF ####[facility], [place] [phone] Absolute nRBC <0.01 Normal <0.01 [facility] Comment on above: Performed By: #### C BCDIF ####[place] [address] [address] [place] [phone] Basophils/100 WBC (Bld) 0.7 % Normal [facility] Comment on above: Performed By: #### C BCDIF ####[place] [address] [address] [place] [phone] DTYPE Auto Diff Normal [facility] Comment on above: Performed By: #### C BCDIF ####[place] [address] [address] [place] [phone] Eosinophils (Bld) [#/Vol] 0.04 10*3/uL Normal <0.46 [facility] Comment on above: Performed By: #### C BCDIF ####[place] [address] [address] [place] [phone] Eosinophils/100 WBC (Bld) 0.5 % Normal [facility] Comment on above: Performed By: #### C BCDIF ####[place] [address] [address] [place] [phone] Erythrocyte distribution width (RBC) [Ratio] 12.4 % Normal 11.5-15.0 [facility] Comment on above: Performed By: #### C BCDIF ####[place] [address] [place] [phone] Hematocrit (Bld) [Volume fraction] 42.9 % Normal 36.0-46.0 [facility] Comment on above: Performed By: #### C BCDIF ####[place] [address], [place] [phone] Hemoglobin (Bld) [Mass/Vol] 14.1 g/dL Normal 11.5-15.5 [facility] Comment on above: Performed By: #### C BCDIF ####[place] [address] [address], [place] [phone] Lymphocytes (Bld) [#/Vol] 3.04 10*3/uL Normal 1.00-4.00 [facility] Comment on above: Performed By: #### C BCDIF ####[place] [address], [place] [phone] Lymphocytes/100 WBC (Bld) 40.6 % Normal [facility] Comment on above: Performed By: #### C BCDIF ####[place] [address] [phone] MCH 28.7 pG Normal 26.0-34.0 [facility] Comment on above: Performed By: #### C BCDIF ####[place] [address] [place] [phone] MCHC (RBC) [Mass/Vol] 32.9 g/dL Normal 30.5-36.0 [facility] Comment on above: Performed By: #### C BCDIF ####[place] [address] [phone] MCV (RBC) [Entitic vol] 87.4 fL Normal 80.0-100.0 [facility] Comment on above: Performed By: #### C BCDIF ####[place] [address] [phone] Monocytes/100 WBC (Bld) 7.1 % Normal [facility] Comment on above: Performed By: #### C BCDIF ####[place] [address], [place] [phone] Neutrophils/100 WBC (Bld) 51.1 % Normal [facility] Comment on above: Performed By: #### C BCDIF ####[place] [address], [place] [phone] NRBCs 0.0 /100 WBC Normal 0 [facility] Comment on above: Performed By: #### C BCDIF ####[facility], [place] [phone] Platelet mean volume (Bld) [Entitic vol] 10.0 fL Normal 9.0-12.7 [facility] Comment on above: Performed By: #### C BCDIF ####[address] [phone] Platelets (Bld) [#/Vol] 250 10*3/uL Normal 150-400 [facility] Comment on above: Performed By: #### C BCDIF ####[place] [address], [place] [phone] RBC (Bld) [#/Vol] 4.91 10*6/uL Normal 3.90-5.20 [facility] Comment on above: Performed By: #### C BCDIF ####[address] [place], [place] [phone] WBC (Bld) [#/Vol] 7.48 10*3/uL Normal 3.70-11.00 [facility] Comment on above: Performed By: #### C BCDIF ####[facility] [place], [place] [phone] Keerthi 08-31-[address] [facility] Office Visit (UCWSTR ) BERNADETTE FAUST ([id number]) 1995 [facility] Date Time Provider Department 08/31/21 5:30 PM JOHN GUILLEN [facility] During your visit today, we recorded the [...] pipes in the basement. She had [facility] stroke in 2017. Reports since moving out 10 days ago symptoms has overall started to improve. Then worsening the last 4 days while she was moving out. Reports nasal drainage that was castillo, worsening migraines while living in the house for 2 weeks, occasional cough, joint pain. Granite like it was worse when the furnace. While moved out of the house symptoms were significantly improved and HAs were improved. Denies fever/chills, Fiance would stay in the house when in [place], and has not been in the house [...] affective disorder (HCC) 10/01/2018 - Breast cancer ([facility]) - Chronic appendicitis 2006 S/P lap appendectomy. [...] (more content not included)... Normal [facility] Wound Culture/Stainon 2020 Wound Culture/Stain [...] SUSCEPTIBLE <=0.5 F Critically abnormal [facility] Comment on above: Performed By: #### W CUL ####[facility] [id number] [place], [place] [address]DhgnqlrxxEast [facility] City Hospital[address] [place], [place] [phone] Mary 04-05-2021 CNPN Telephone (FAMPWS) NABERNADETTE DELAROSA ([id number]) 1995 [address] [facility] Date Time Provider Department 04/05/21 MARLO LOZA [...] Assessed Reason for Visit: PHMA/Care Gap Outreach [5586] Primary Visit Diagnosis:Type 2 diabetes mellitus without complication, unspecified whether mixing machine tender insulin use (HCC) [E11.9] Order(s):ALBUMIN/CREAT RATIO RND UR [SQUACR] Order #: [id number] FUTURE Prescriptions as of 04/05/2021 Sig: PREDNISONE [...] needed* TRIAMCINOLONE ACETONIDE 55 MC* Use 1 [place] in the nose as ne* GABAPENTIN 800 [...] Status:Closed by RENY HATFIELD MA on 04/08/21 [facility] C[facility]N Telephone (FAMPWS) BERNADETTE FAUST ([id number]) 1995 [facility] Date Time Provider Department 02/27/21 BECKY SOTELO [...] Assessed Reason for Visit: PHMA/Care Gap Outreach [2566] Cmt: APPT Prescriptions as of 02/27/2021 Sig: [...] needed* TRIAMCINOLONE ACETONIDE 55 MC* Use 1 [place] in the nose as ne* GABAPENTIN 800 [...] Status:Closed by RUKHSANA DYSON MA on 03/01/21 [facility] Mary 01-14-2021 CNPN Telephone (FAMPWS) CHRISTIANNEBERNADETTE R ([id number]) 1995 [address] [facility] Date Time Provider Department 01/14/21 BECKY SOTELO [...] 2 diabetes mellitus without complication, unspecified whether mixing machine tender insulin use (HCC) [E11.9] Order(s):CMP (CMP) (FOR REMOTE [facility] USE) [SQRCMP] Order #: [id number] FUTURE HEMOGLOBIN A1C (FOR REMOTE [facility] USE) [XUTGKO0Y] Order #: [id number] FUTURE LIPID PANEL BASIC [SQLIPB] Order #: [id number] FUTURE Prescriptions as of 01/14/2021 Sig: PREDNISONE [...] needed* TRIAMCINOLONE ACETONIDE 55 MC* Use 1 [place] in the nose as ne* GABAPENTIN 800 [...] [place] MA on 01/14/21 Normal [facility] Coding Summary.on 02-22-2019 Coding Summary. CODING DATE: 019 [facility] STATUS: Home (Routine DC) PAYOR: Self [...] Revised Date Saved: 02/22/2019 07:04 am Normal [facility] Auto Diffon 02-20-2019 Basophils/100 WBC (Bld) 0.5 % Normal 0.0-2.0 [facility] Comment on above: Order Comment: Order Added by Discern Expert. Performed By: #### 2 653385, 3082261, 56506406, 8285526, 9442665, 5258297, 46365062, 5669891 #### [facility] [address] [place] [address] Basophils/Leukocytes Auto (Bld) [Pure # fraction] 0.1 E9/L Normal 0.0-0.2 [facility] Comment on above: Order Comment: Order Added by Discern Expert. Performed By: #### 2 347649, 5434788, 03605418, 6973581, 4616099, 5345401, 59478477, 8603193 #### [facility] [address] [place] [address] Eosinophils/100 WBC (Bld) 0.1 % Normal 0.0-8.0 [facility] Comment on above: Order Comment: Order Added by Discern Expert. Performed By: #### 2 961888, 1598596, 61278965, 2279230, 8190973, 1752510, 40648242, 8786414 #### [facility] [address] [place] [address] Eosinophils/Leukocytes Auto (Bld) [Pure # fraction] 0.0 E9/L Normal 0.0-0.5 [facility] Comment on above: Order Comment: Order Added by Discern Expert. Performed By: #### 2 252963, 7586536, 07196240, 3043844, 7206953, 7364469, 76772054, 6112066 #### [facility] [address] [place] [address] Lymphocytes/100 WBC (Bld) 8.4 % Low 14.0-50.0 [facility] Comment on above: Order Comment: Order Added by Discern Expert. Performed By: #### 2 679149, 6243897, 29937755, 6593790, 0880073, 5010740, 71154932, 0299279 #### [facility] [address] [place] [address] Lymphocytes/Leukocytes Auto (Bld) [Pure # fraction] 0.9 E9/L Low 1.0-4.0 [facility] Comment on above: Order Comment: Order Added by Discern Expert. Performed By: #### 2 590958, 8373796, 65131289, 0284034, 3446811, 7181681, 58422823, 4067022 #### [facility] [address] [place] [address] Monocytes/100 WBC (Bld) 5.2 % Normal 4.0-14.0 [facility] Comment on above: Order Comment: Order Added by Discern Expert. Performed By: #### 2 925019, 2661971, 41976129, 9766358, 5025521, 0572355, 07988152, 6361566 #### [facility] [address] [place] [address] Monocytes/Leukocytes Auto (Bld) [Pure # fraction] 0.5 E9/L Normal 0.2-1.0 [facility] Comment on above: Order Comment: Order Added by Discern Expert. Performed By: #### 2 745809, 4497292, 80235260, 8658284, 6373250, 4659702, 15117264, 0549923 #### [facility] [address] [place] [address] Neutrophils/100 WBC (Bld) 85.8 % High 36.0-75.0 [facility] Comment on above: Order Comment: Order Added by Discern Expert. Performed By: #### 2 149607, 7143410, 54745629, 5447591, 8811463, 2281243, 28982780, 8270280 #### [facility] [address] [place] [address] Neutrophils/Leukocytes Auto (Bld) [Pure # fraction] 8.8 E9/L High 2.0-7.5 [facility] Comment on above: Order Comment: Order Added by Discern Expert. Performed By: #### 2 670300, 8282788, 48028769, 8832135, 2766729, 3726562, 10420695, 3500835 #### [facility] [address] [place] [address] BMP 02-20-2019 Creatinine [Mass/Vol] 0.8 mg/dL Normal 0.5-1.3 [facility] Comment on above: Performed By: #### 2 419522, 6317002, 75454716, 6548549, 6685341, 7494977, 11113651, 2171821 #### [facility] [address] [place] [address] Urea nitrogen [Mass/Vol] 9 mg/dL Normal 5-21 [facility] Comment on above: Performed By: #### 2 683331, 8119326, 36715662, 6326281, 3889166, 8002655, 96505087, 9149187 #### [facility] [address] [place] [address] Urea nitrogen/Creatinine [Mass ratio] 11 No Units Normal 10-20 [facility] Comment on above: Performed By: #### 2 318996, 6188918, 47009737, 0692743, 0368375, 1111412, 87380112, 3426067 #### [facility] [address] [place] [address] Anion gap [Moles/Vol] 14 mmol/L Normal 6-16 [facility] Comment on above: Performed By: #### 2 518230, 5032117, 85342514, 1765753, 7478658, 7543705, 62220243, 1331078 #### [facility] [address] [place] [address] Calcium [Mass/Vol] 9.0 mg/dL Normal 8.9-11.1 [facility] Comment on above: Performed By: #### 2 174848, 0264035, 83530957, 5899261, 7092024, 0216194, 38893070, 4479887 #### [facility] [address] [place] [address] Chloride [Moles/Vol] 100 mmol/L Low 101-111 [facility] [place] Comment on above: Performed By: #### 2 843327, 0160436, 75977674, 8843019, 1223784, 3333809, 94255838, 0529785 #### [facility] [address] [place] [address] CO2 [Moles/Vol] 23 mmol/L Normal 21-31 [facility] Comment on above: Performed By: #### 2 329290, 0303232, 43263569, 8965995, 2386610, 6995361, 02565345, 6851087 #### [facility] [address] [place] [address] Glucose [Mass/Vol] 181 mg/dL Normal 55-199 [facility] Comment on above: Result Comment: If t his glucose result represents a fasting glucose, interpretation should refer to the following reference range: 55-99 mg/dL Performed By: #### 2 195149, 1574206, 82908097, 0656330, 3555220, 3768720, 77910825, 8017422 #### [facility] [address] [place] [address] Potassium [Moles/Vol] 3.7 mmol/L Normal 3.5-5.3 [facility] Comment on above: Performed By: #### 2 277956, 0988577, 21639986, 9639035, 2323945, 5622070, 16175900, 4174458 #### [facility] [address] [place] [address] Sodium [Moles/Vol] 133 mmol/L Low 135-145 [facility] Comment on above: Performed By: #### 2 012840, 0720543, 47226510, 7672141, 5834579, 3041949, 30143216, 9062336 #### [facility] [address] [place] [address] CBC w/ Auto Diffon 9 Erythrocyte distribution width (RBC) [Ratio] 14.5 % High 10.9-14.2 [facility] Comment on above: Performed By: #### 2 771012, 1828391, 37015839, 2494221, 4008087, 1991452, 36400635, 3052922 #### [facility] [address] [place] [address] Hematocrit (Bld) [Volume fraction] 38.9 % Normal 34.0-46.0 [facility] Comment on above: Performed By: #### 2 457693, 2521812, 32180293, 4994184, 1551882, 6259252, 73143401, 5734355 #### [facility] [address] [place] [address] Hemoglobin (Bld) [Mass/Vol] 13.3 g/dL Normal 12.0-16.0 [facility] Comment on above: Performed By: #### 2 796284, 8895431, 10465336, 2383773, 1272835, 0764354, 85067901, 9578751 #### [facility] [address] [place] [address] MCH (RBC) [Entitic mass] 28.1 pg Normal 27.0-34.0 [facility] Comment on above: Performed By: #### 2 274130, 3400634, 42101437, 3535369, 4536658, 2878810, 00458505, 9631029 #### [facility] [address] [place] 5006657 MCHC (RBC) [Mass/Vol] 34.2 g/dL Normal 33.3-35.7 [facility] Comment on above: Performed By: #### 2 001084, 8803383, 39398793, 6802857, 7546657, 9071131, 65848479, 4723026 #### [facility] [address] [place] [address] MCV (RBC) [Entitic vol] 82.3 fL Normal 80.0-100.0 [facility] Comment on above: Performed By: #### 2 677245, 9821284, 82055604, 7716783, 9631576, 2292542, 09094906, 7055879 #### [facility] [address] [place] [address] Platelet mean volume (Bld) [Entitic vol] 7.0 fL Normal 6.4-10.8 [facility] Comment on above: Performed By: #### 2 565334, 9956837, 07495817, 5855579, 8515171, 5996974, 38072436, 4202612 #### [facility] [address] [place], [place] [address] Platelets (Bld) [#/Vol] 179.0 E9/L Normal 150.0-500.0 [facility] Comment on above: Performed By: #### 2 117949, 7222727, 70717588, 6004670, 8343137, 3063872, 58826939, 9344785 #### [facility] [address] [place] [address] RBC (Bld) [#/Vol] 4.7 E12/L Normal 4.3-5.9 [facility] Comment on above: Performed By: #### 2 807485, 6218863, 53923298, 9825149, 9305798, 3345340, 47398115, 1539103 #### [facility] [address] [place] [address] WBC corrected for nucl RBC Auto (Bld) [#/Vol] 10.3 E9/L Normal 4.0-11.0 [facility] Comment on above: Performed By: #### 2 912441, 6138681, 15801259, 2628242, 8532583, 6034778, 08251285, 2286327 #### [facility] [address] [place] [address] CRPon 02-20-2019 CRP [Mass/Vol] 0.9 mg/dL Normal <=1.9 [facility] Comment on above: Performed By: #### 2 559226, 6583602, 62448752, 4934608, 8831596, 1451938, 59247457, 3935846 #### [facility] [address] [place] [address] CT Abdomen/Pelvis w/o Contra ston 02-20-2019 CT [...] Signed by: Jesus Moses DO Transcribed by: ZOLTAN Technologist: PORTILLO Exam Date/Time: 02/20/2019 19:24 EDT Technical Comments Oral contrast amount in ml's: 0 Rectal Contrast Given? No Normal [facility] ED Clinical Summaryon 2018 ED Clinical Summary (Inserted Image. Kathie ble to display) [place] [id number] ED Clinical Summary Person Information Name: BERNADETTE FAUST/[facility]_Adán Age: 24 Years : 1995 12:00 AM Sex: Female Language: Solomon Islander PCP: ASHLEIGH MALIK, BECKY Desir Marital Status: Single Visit Id: Visit Reason: [...] 9:17 PM 02/20/2019 9:17 PM ADDRESS: [address] [facility] [id number] PHYS DOC NOTES: MEDICAL INFORMATION: Prescriptions Given: PATIENT EDUCATION INFORMATION: Instructions: Abdominal Pain, Adult, Cijw-ab-Zwrx Follow up: With: Address: When: BECKY SOTELO [address] [facility] [place] [address] Business (1) Within 1 to 2 days Comments: Return to ED if symptoms worsen DIAGNOSIS: 1:Intermittent left upper quadrant abdominal pain; 2:Left flank pain Normal [facility] ED Note-Nursingon 02-20-2019 ED Note-Nursing Report recvd from BENTLEY Perez, care assumed at this time. Normal [facility] ED Note-Physicianon 02-21-20 19 ED Note-Physician Basic Information Time Seen: Claudia BAIN, Ashwin Sahni 02/20/2019 17:35 Chief Complaint [...] medications Follow-up With When Contact Information BECKY SOTELO Within 1 to 2 days [address] [place] [address] [facility] (1) Additional Instructions: Return to ED if symptoms worsen Patient Education Abdominal Pain, Adult, Mkwa-qg-Grfj Attestation The patient's care was supervised by Dr. Karlee Baker including medical decision making, and disposition. Teaching-Supervisory Addendum-Brief I personally performed: supervision of the patient's care the medical decision making. The case was discussed with: the physician district administrative assistant, Ashwin Taylor PA-C. Procedures: I directly [...] Auto: 8.4 % Low (02/20/19 17:55:00 EDT) Kershaw Auto: 5.2 % (02/20/19 17:55:00 EDT) Eos Auto: 0.1 % (02/20/19 17:55:00 EDT) Basophil Auto: 0.5 % (02/20/19 17:55:00 EDT) Neutro Absolute: 8.8 E9/L High (02/20/19 17:55:00 EDT) Lymph Absolute: 0.9 E9/L Low (02/20/19 17:55:00 EDT) K[place]haw Absolute: 0.5 E9/L (02/20/19 17:55:00 EDT) Eos [...] Given? No Signed By: Jesus Moses DO [facility] Comment on above: Result Comment: Elec tronically [...] 10/21/2014 Document Reviewed: 06/25/2014 ExitCare? Patient Information ?2015 [employer]. This information is not intended to replace advice given to you by your health care provider. Make sure you discuss any questions you have with your health care provider. Normal [facility] ED Patient Summaryon 019 ED Patient Summary (Inserted Image. Kathie ble to display) [place] [id number] Patient Discharge Instructions Person Information Name: BERNADETTE FAUST Age: 24 Years Arrival Date: 02/20/2019 5:21 PM Discharge Diagnosis: 1:Intermittent left upper quadrant abdominal pain; 2:Left flank pain Primary Care Physician: ASHLEIGH MALIK, BECKY Desir Provider Information Primary Provider: Jane Baker Advanced Hand Meat Salter:Ashwin Taylor PA-C The exam and treatment you received in the Emergency Department were for an urgent problem and are not intended as complete care. It is important that you follow up with a doctor, nurse practitioner, or physician?s district administrative assistant for ongoing care. If your symptoms become worse or you do not improve as expected and you are unable to reach your usual health care provider, you should return to the Emergency Department. We are available 24 hours a day. BERNADETTE FAUST has been given the following list of patient education materials, prescriptions and follow-up instructions: Follow-up Instructions: With: Address: When: BECKY SOTELO [address] [place] [phone] [facility] (1) Within 1 to 2 days Comments: Return to ED if symptoms worsen In the event that this physician does not participate in your insurance network, please consult with your insurance company to find a nearby participating provider. Patient Education Materials: Abdominal Pain, Adult, Ptxm-hv-Npgw A MESSAGE TO ALL PATIENTS REGARDING OPIOIDS PRESCRIPTION OPIOIDS: WHAT YOU NEED TO KNOW Prescription opioids can be used to help relieve qawtapjl-zs-wkgbbe pain and are often prescribed following a [...] from the Food and Drug Administration (www.fda.gov/Drugs/Reso Iggyu). ? Visit www.cdc.gov/drugoverdos e to learn about the risks of opioids abuse and overdose. ? If you believe you may be struggling with addiction, tell your health customer care professional and ask for guidance or call [facility]S [employer] Helpline at 2-129-778-YXOT. l Source: US Department of Health and Human Services/Center for Disease Control & Prevention [facility] Medications Given: Medication Dose Route [...] Comment: Pharmacy Information: Thank you for choosing [facility] Patient Education Materials: Abdominal Pain Many things [...] 10/21/2014 Document Reviewed: 06/25/2014 ExitCare? Patient Information ?2015 [employer]. This information is not intended to replace advice given to you by your health care provider. Make sure you discuss any questions you have with your health care provider. ICHRISTIANNE STEPHANIE , have received the following patient education materials/instructions and have verbalized understanding: Patient Education Materials: Abdominal Pain, Adult, Okuj-qi-Vrou Follow-up Instructions: With: Address: When: BECKY SOTELO [address] [place] [address] Business (1) Within 1 to 2 days Comments: Return to ED if symptoms worsen Prescriptions: Patient Signature Date Clinician/Nurse Signature _ Date 02/20/19 21:17:29 Normal [facility] Hep Func Panelon 02-20-2019 Albumin [Mass/Vol] 1.4 g/dL Normal 1.1-2.2 [facility] Comment on above: Performed By: #### 2 453627, 3644010, 33308748, 0049357, 8273798, 1733859, 76281147, 0173627 #### [facility] [address] [place] [address] Albumin [Mass/Vol] 4.3 g/dL Normal 3.3-5.0 [facility] Comment on above: Performed By: #### 2 542886, 6210182, 88986962, 1730690, 1010893, 9118941, 36835328, 6787642 #### [facility] [address] [place] [address] ALP [Catalytic activity/Vol] 56 Int._Unit/L Normal 21-98 [facility] Comment on above: Performed By: #### 2 794858, 9335721, 11854814, 3740075, 7455744, 1926335, 61119489, 7924125 #### [facility] [address] [place] [address] 07689 ALT No additional P-5'-P [Catalytic activity/Vol] 18 Int._Unit/L Normal 6-46 [facility] Comment on above: Performed By: #### 2 956256, 3544072, 94286563, 2016373, 9704715, 8913058, 19650886, 5026742 #### [facility] [address] [place] [address] 86787 AST [Catalytic activity/Vol] 25 Int._Unit/L Normal 5-43 [facility] Comment on above: Performed By: #### 2 870464, 6265435, 03184058, 6060893, 8118057, 0014039, 69051690, 4488961 #### [facility] [address] [place] [address]107 Bilirubin [Mass/Vol] 0.5 mg/dL Normal 0.0-1.1 [facility] Comment on above: Performed By: #### 2 508702, 7267027, 78886668, 4530657, 5446559, 5819329, 30571415, 6846066 #### [facility] [address] [place] [address] Bilirubin.direct [Mass/Vol] 0.4 mg/dL Normal 0.1-0.9 [facility] Comment on above: Performed By: #### 2 414803, 4288813, 26585450, 4963049, 3398964, 8191030, 20224358, 3527483 #### [facility] [address] [place] [address] Bilirubin.direct [Mass/Vol] 0.1 mg/dL Normal 0.1-0.4 [facility] Comment on above: Performed By: #### 2 332190, 5261398, 09861113, 0531347, 2094647, 8228081, 20596850, 6325906 #### [facility] [address] [place] [address] Globulin (S) [Mass/Vol] 3.1 g/dL Normal 1.4-4.0 [facility] Comment on above: Performed By: #### 2 939998, 0268692, 02048610, 9367480, 4673521, 3250581, 50037140, 2373576 #### [facility] [address] [place] [address] 58668 Protein [Mass/Vol] 7.4 g/dL Normal 6.0-7.8 [facility] Comment on above: Performed By: #### 2 221337, 0259581, 46942134, 5042240, 8999752, 8500803, 50917916, 7162079 #### [facility] [address] [place] [address] 63466 Lipase Levelon 02-20-2019 Lipase [Catalytic activity/Vol] 27 unit/L Normal 13-58 [facility] Comment on above: Performed By: #### 2 468692, 5526833, 88302608, 3436279, 9800288, 4715286, 38336164, 9147128 #### [facility] [address] [place] [address] Sed Rate Automatedon 019 ESR (Bld) [Velocity] 6 mm/h Normal 0-34 [facility] Comment on above: Performed By: #### 2 610992, 6277500, 67187949, 2473220, 8798585, 7779819, 15334612, 3205042 #### [facility] [address] [place] [id number] U BetaHcg Qualon 02-20-2019 HCG.beta subunit (U) [Moles/Vol] Negative Normal [facility] Comment on above: Performed By: #### 2 7707166, 82442575 #### [facility] [address] [place] [address] UA With Cult Reflexon 2018 Bilirubin Ql (U) Negative Normal Negative [facility] Comment on above: Performed By: #### 2 4090338, 65480535 #### [facility] [address] [place] [address] Clarity (U) CLEAR Normal Clear [facility] Comment on above: Performed By: #### 2 1370461, 60820386 #### [facility] [address] [place] [address] Color (U) YELLOW Normal Yellow [facility] Comment on above: Performed By: #### 2 3001841, 82478596 #### [facility] [address] [place], [place] [address] Epithelial cells.squamous LM.HPF (Urine sed) [#/Area] 0-2 Normal 0-2 [facility] Comment on above: Performed By: #### 2 0782367, 03206139 #### [facility] [address] [place] [id number] Glucose Test strip (U) [Mass/Vol] 1+ Abnormal Negative [facility] Comment on above: Performed By: #### 2 0444605, 91944927 #### [facility] [address] [place] [address] Hemoglobin Ql (U) Negative Normal Negative [facility] Comment on above: Performed By: #### 2 6577590, 49859078 #### [facility] [address] [place] [address] Ketones (U) [Mass/Vol] Negative Normal Negative [facility] Comment on above: Performed By: #### 2 8772636, 06748402 #### [facility] [address] [place] [address] [place].plasma/[place] .RBC (Bld) [Mass ratio] 0-3 Normal 0-3 [facility] Comment on above: Performed By: #### 2 9293582, 82357195 #### [facility] [address] [place] [address] Nitrite Ql (U) Negative Normal Negative [facility] Comment on above: Performed By: #### 2 3444722, 06341697 #### [facility] [address] [place] [address] pH (U) 5.5 [pH] 5.0-9.0 [facility] Comment on above: Performed By: #### 2 8596489, 00548096 #### [facility] [address] [place] [address] Protein (U) [Mass/Vol] Negative Normal Negative [facility] Comment on above: Performed By: #### 2 0768422, 71472575 #### [facility] [address] [place] [address] Specific gravity (U) [Rel density] 1.010 1.005-1.030 [facility] Comment on above: Performed By: #### 2 1201040, 17310310 #### [facility] [address] [place] [address] UA Spec Desc Clean Catch Normal [facility] Comment on above: Performed By: #### 2 2982886, 52487024 #### [facility] [address] [place] [address] Urobilinogen Qn (U) 0.2 {Stephanie'U}/dL Normal 0.0-1.0 [facility] Comment on above: Performed By: #### 2 5882206, 47381389 #### [facility] [address] [place] [address] WBC Auto Ql (U) Negative Normal Negative [facility] Comment on above: Performed By: #### 2 0584720, 97643156 #### [facility] [address] [place] [address] WBC LM.HPF (Urine sed) [#/Area] 0-5 Normal 0-5 [facility] Comment on above: Performed By: #### 2 3623988, 60608006 #### [facility] [address] [place] [address] eGFRon 02-20-2019 GFR/1.73 sq M predicted among blacks MDRD (S/P/Bld) [Vol rate/Area] mL/min/{1.73_m2} Normal >=59 [facility] Comment on above: Order Comment: Order added by Discern Expert. Result Comment: eGFR is race adjusted. AA=. Performed By: #### 2 037631, 1189538, 64174799, 4303742, 8919196, 7844292, 95616213, 7038753 #### [facility] [address] [place] [address] GFR/1.73 sq M predicted among non-blacks MDRD (S/P/Bld) [Vol rate/Area] mL/min/{1.73_m2} Normal >=59 [facility] Comment on above: Order Comment: Order added by Discern Expert. Result Comment: Net Manager elias kidney disease could be indicated at eGFR's of less than 60 mL/min/1.73m2. Kidney failure is indicated at less than 15 mL/min/1.73m2. Performed By: #### 2 827348, 4078028, 23220263, 3769972, 7781035, 1114032, 37390940, 1324216 #### [facility] [address] [place] [address] C-Reactive Proteinon 019 CRP mass conc 0.1 mg/dL Normal <0.9 [facility] Comment on above: Performed By: #### W SR, C3COMP, C4COMP, CRP, RF, SYPHGX, ENAID, DNA, SEPG, COMPD #### [place] [address] [place] [address] C3 Complementon 01-22-2019 C3 Complement 126 mg/dL Normal 86-166 [facility] Comment on above: Performed By: #### W SR, C3COMP, C4COMP, CRP, RF, SYPHGX, ENAID, DNA, SEPG, COMPD #### [place] [address] C4 Complementon 01-22-2019 C4 Complement 23 mg/dL Normal 13-46 [facility] Comment on above: Performed By: #### W SR, C3COMP, C4COMP, CRP, RF, SYPHGX, ENAID, DNA, SEPG, COMPD #### [place] [address] CBC and Differentialon 01-22 Abs Baso <0.03 Normal <0.11 [facility] Comment on above: Performed By: #### W SR, C3COMP, C4COMP, CRP, RF, SYPHGX, ENAID, DNA, SEPG, COMPD #### [facility] [employer] [address] [place] [address] Abs [place] 0.52 k/uL Normal <0.87 [facility] Comment on above: Performed By: #### W SR, C3COMP, C4COMP, CRP, RF, SYPHGX, ENAID, DNA, SEPG, COMPD #### [place] [address] Abs Neut 4.52 k/uL Normal 1.45-7.50 [facility] Comment on above: Performed By: #### W SR, C3COMP, C4COMP, CRP, RF, SYPHGX, ENAID, DNA, SEPG, COMPD #### [place] [phone] Basophils/100 WBC (Bld) 0.3 % Normal [facility] Comment on above: Performed By: #### W SR, C3COMP, C4COMP, CRP, RF, SYPHGX, ENAID, DNA, SEPG, COMPD #### [place] [phone] DTYPE Auto Diff Normal [facility] Comment on above: Performed By: #### W SR, C3COMP, C4COMP, CRP, RF, SYPHGX, ENAID, DNA, SEPG, COMPD #### [place] [phone] Eosinophils #/vol (Bld) 0.10 10*3/uL Normal <0.46 [facility] Comment on above: Performed By: #### W SR, C3COMP, C4COMP, CRP, RF, SYPHGX, ENAID, DNA, SEPG, COMPD #### [place] [phone] Eosinophils/100 WBC (Bld) 1.4 % Normal [facility] Comment on above: Performed By: #### W SR, C3COMP, C4COMP, CRP, RF, SYPHGX, ENAID, DNA, SEPG, COMPD #### [place] [phone] Erythrocyte distribution width Ratio (RBC) 13.2 % Normal 11.5-15.0 [facility] Comment on above: Performed By: #### W SR, C3COMP, C4COMP, CRP, RF, SYPHGX, ENAID, DNA, SEPG, COMPD #### [place] [phone] Hematocrit Volume Fraction (Bld) 42.6 % Normal 36.0-46.0 [facility] Comment on above: Performed By: #### W SR, C3COMP, C4COMP, CRP, RF, SYPHGX, ENAID, DNA, SEPG, COMPD #### [place] [id number] [place] [address] Hemoglobin mass conc (Bld) 14.0 g/dL Normal 11.5-15.5 [facility] Comment on above: Performed By: #### W SR, C3COMP, C4COMP, CRP, RF, SYPHGX, ENAID, DNA, SEPG, COMPD #### [place] [phone] Lymphocytes #/vol (Bld) 2.12 10*3/uL Normal 1.00-4.00 [facility] Comment on above: Performed By: #### W SR, C3COMP, C4COMP, CRP, RF, SYPHGX, ENAID, DNA, SEPG, COMPD #### [place] [address] Lymphocytes/100 WBC (Bld) 29.1 % Normal [facility] Comment on above: Performed By: #### W SR, C3COMP, C4COMP, CRP, RF, SYPHGX, ENAID, DNA, SEPG, COMPD #### [place] [address] MCH Entitic mass (RBC) 27.7 pG Normal 26.0-34.0 [facility] Comment on above: Performed By: #### W SR, C3COMP, C4COMP, CRP, RF, SYPHGX, ENAID, DNA, SEPG, COMPD #### [place] [address] MCHC mass conc (RBC) 32.9 g/dL Normal 30.5-36.0 [facility] Comment on above: Performed By: #### W SR, C3COMP, C4COMP, CRP, RF, SYPHGX, ENAID, DNA, SEPG, COMPD #### [place] [address] MCV Entitic volume (RBC) 84.4 fL Normal 80.0-100.0 [facility] Comment on above: Performed By: #### W SR, C3COMP, C4COMP, CRP, RF, SYPHGX, ENAID, DNA, SEPG, COMPD #### [place] [address] Monocytes/100 WBC (Bld) 7.1 % Normal [facility] Comment on above: Performed By: #### W SR, C3COMP, C4COMP, CRP, RF, SYPHGX, ENAID, DNA, SEPG, COMPD #### [place] [address] Neutrophils/100 WBC (Bld) 62.1 % Normal [facility] Comment on above: Performed By: #### W SR, C3COMP, C4COMP, CRP, RF, SYPHGX, ENAID, DNA, SEPG, COMPD #### [place] [phone] Platelet mean volume Entitic volume (Bld) 9.2 fL Normal 9.0-12.7 [facility] Comment on above: Performed By: #### W SR, C3COMP, C4COMP, CRP, RF, SYPHGX, ENAID, DNA, SEPG, COMPD #### [place] [address] Platelets #/vol (Bld) 222 10*3/uL Normal 150-400 [facility] Comment on above: Performed By: #### W SR, C3COMP, C4COMP, CRP, RF, SYPHGX, ENAID, DNA, SEPG, COMPD #### [place] [address] RBC #/vol (Bld) 5.05 10*6/uL Normal 3.90-5.20 [facility] Comment on above: Performed By: #### W SR, C3COMP, C4COMP, CRP, RF, SYPHGX, ENAID, DNA, SEPG, COMPD #### [place] [phone] [place] [address] WBC #/vol (Bld) 7.28 10*3/uL Normal 3.70-11.00 [facility] Comment on above: Performed By: #### W SR, C3COMP, C4COMP, CRP, RF, SYPHGX, ENAID, DNA, SEPG, COMPD #### [place] [address] Comp Metabolic Panelon 01-22 Albumin mass conc 5.0 g/dL High 3.9-4.9 [facility] Comment on above: Performed By: #### W SR, C3COMP, C4COMP, CRP, RF, SYPHGX, ENAID, DNA, SEPG, COMPD #### [place] [phone] ALP enzyme act/vol 66 U/L Normal 34-123 [facility] Comment on above: Performed By: #### W SR, C3COMP, C4COMP, CRP, RF, SYPHGX, ENAID, DNA, SEPG, COMPD #### [place] [phone] ALT enzyme act/vol 15 U/L Normal 7-38 [facility] Comment on above: Performed By: #### W SR, C3COMP, C4COMP, CRP, RF, SYPHGX, ENAID, DNA, SEPG, COMPD #### [place] [phone] [place] [phone] Anion gap molar conc 12 mmol/L Normal 9-18 [facility] Comment on above: Performed By: #### W SR, C3COMP, C4COMP, CRP, RF, SYPHGX, ENAID, DNA, SEPG, COMPD #### [place] [address] AST enzyme act/vol 18 U/L Normal 13-35 [facility] Comment on above: Performed By: #### W SR, C3COMP, C4COMP, CRP, RF, SYPHGX, ENAID, DNA, SEPG, COMPD #### [place] [address] Bilirubin mass conc 0.2 mg/dL Normal 0.2-1.3 [facility] Comment on above: Performed By: #### W SR, C3COMP, C4COMP, CRP, RF, SYPHGX, ENAID, DNA, SEPG, COMPD #### [place] [address] Calcium mass conc 9.8 mg/dL Normal 8.6-10.0 [facility] Comment on above: Performed By: #### W SR, C3COMP, C4COMP, CRP, RF, SYPHGX, ENAID, DNA, SEPG, COMPD #### [place] [address] Chloride molar conc 99 mmol/L Normal 97-105 [facility] Comment on above: Performed By: #### W SR, C3COMP, C4COMP, CRP, RF, SYPHGX, ENAID, DNA, SEPG, COMPD #### [place] [phone] CO2 molar conc 25 mmol/L Normal 22-33 [facility] Comment on above: Performed By: #### W SR, C3COMP, C4COMP, CRP, RF, SYPHGX, ENAID, DNA, SEPG, COMPD #### [place] [address] Creatinine mass conc 0.65 mg/dL Normal 0.58-0.96 [facility] Comment on above: Performed By: #### W SR, C3COMP, C4COMP, CRP, RF, SYPHGX, ENAID, DNA, SEPG, COMPD #### [facility] [employer] [address] [place] [address] eGFR- Amer. >60 Normal [facility] Comment on above: Performed By: #### W SR, C3COMP, C4COMP, CRP, RF, SYPHGX, ENAID, DNA, SEPG, COMPD #### [facility] [employer] [address] [place] [address] GFR/1.73 sq M predicted among non-blacks MDRD vol rate/area (S/P/Bld) mL/min/{1.73_m2} Normal [facility] Comment on above: Result Comment: eGFR [...] RF, SYPHGX, ENAID, DNA, SEPG, COMPD #### [facility] [employer] [address] [place] [address] Glucose mass conc 115 mg/dL High 74-99 [facility] Comment on above: Performed By: #### W SR, C3COMP, C4COMP, CRP, RF, SYPHGX, ENAID, DNA, SEPG, COMPD #### [facility] [employer] [address] [place] [address] Potassium molar conc 3.9 mmol/L Normal 3.7-5.1 [facility] Comment on above: Performed By: #### W SR, C3COMP, C4COMP, CRP, RF, SYPHGX, ENAID, DNA, SEPG, COMPD #### [facility] [address] [place], [place] [address] Protein mass conc 8.1 g/dL High 6.3-8.0 [facility] Comment on above: Performed By: #### W SR, C3COMP, C4COMP, CRP, RF, SYPHGX, ENAID, DNA, SEPG, COMPD #### [place] [phone] [place], [place] [address] Sodium molar conc 136 mmol/L Normal 136-144 [facility] Comment on above: Performed By: #### W SR, C3COMP, C4COMP, CRP, RF, SYPHGX, ENAID, DNA, SEPG, COMPD #### [address] [address] Urea nitrogen mass conc 7 mg/dL Normal 7-21 [facility] Comment on above: Performed By: #### W SR, C3COMP, C4COMP, CRP, RF, SYPHGX, ENAID, DNA, SEPG, COMPD #### [address] [address] Complmnt Def.Assayon 019 Complmnt Def, Qual Normal Normal Normal [facility] Comment on above: Performed By: #### W SR, C3COMP, C4COMP, CRP, RF, SYPHGX, ENAID, DNA, SEPG, COMPD #### [place] [address] Complmnt Def. Assay 155 Units Normal [facility] Comment on above: Result Comment: Units are Interpreted as Follows: Normal/High Specimens >60 Low Specimens <=60 Performed By: #### W SR, C3COMP, C4COMP, CRP, RF, SYPHGX, ENAID, DNA, SEPG, COMPD #### [place] [phone] [place], [place] [address] DNA Antibody w/ Conf.on 12-29 DNA Antibody w/ Conf. <12 Normal <30 [facility] Comment on above: Result Comment: Nega tive for ds DNA Antibodies Negative: <30 IU/mL Equivocal: 30-74 IU/mL Positive: >74 IU/mL Performed By: #### W SR, C3COMP, C4COMP, CRP, RF, SYPHGX, ENAID, DNA, SEPG, COMPD #### [place] [address] CASSIA Antibody Panelon 019 Centromere <0.2 Normal <1.0 [facility] Comment on above: Result Comment: NEGA TIVE Negative: <1.0 AI Positive: >0.9 AI Performed By: #### W SR, C3COMP, C4COMP, CRP, RF, SYPHGX, ENAID, DNA, SEPG, COMPD #### [place] [address] Chromatin Antibody <0.2 Normal <1.0 [facility] Comment on above: Result Comment: NEGA TIVE Negative: <1.0 AI Positive: >0.9 AI Performed By: #### W SR, C3COMP, C4COMP, CRP, RF, SYPHGX, ENAID, DNA, SEPG, COMPD #### [place] [address] RICHY 1 Antibody <0.2 Normal <1.0 [facility] Comment on above: Result Comment: NEGA TIVE Negative: <1.0 AI Positive: >0.9 AI Performed By: #### W SR, C3COMP, C4COMP, CRP, RF, SYPHGX, ENAID, DNA, SEPG, COMPD #### [place] [address] Ribosomal TRANSPORTATION JOB TITLES <0.2 Normal <1.0 [facility] Comment on above: Result Comment: NEGA TIVE Negative: <1.0 AI Positive: >0.9 AI Performed By: #### W SR, C3COMP, C4COMP, CRP, RF, SYPHGX, ENAID, DNA, SEPG, COMPD #### [place] [phone] TRANSPORTATION JOB TITLES Antibody <0.2 Normal <1.0 [facility] Comment on above: Result Comment: NEGA TIVE Negative: <1.0 AI Positive: >0.9 AI Performed By: #### W SR, C3COMP, C4COMP, CRP, RF, SYPHGX, ENAID, DNA, SEPG, COMPD #### [place] [phone] Scleroderma IgG Ab <0.2 Normal <1.0 [facility] Comment on above: Result Comment: NEGA TIVE Negative: <1.0 AI Positive: >0.9 AI Performed By: #### W SR, C3COMP, C4COMP, CRP, RF, SYPHGX, ENAID, DNA, SEPG, COMPD #### [place] [phone] Sm Antibody <0.2 Normal <1.0 [facility] Comment on above: Result Comment: NEGA TIVE Negative: <1.0 AI Positive: >0.9 AI Performed By: #### W SR, C3COMP, C4COMP, CRP, RF, SYPHGX, ENAID, DNA, SEPG, COMPD #### [place] [phone] SSA Antibody <0.2 Normal <1.0 [facility] Comment on above: Result Comment: NEGA TIVE Negative: <1.0 AI Positive: >0.9 AI Performed By: #### W SR, C3COMP, C4COMP, CRP, RF, SYPHGX, ENAID, DNA, SEPG, COMPD #### [place] [phone] SSB Antibody <0.2 Normal <1.0 [facility] Comment on above: Result Comment: NEGA TIVE Negative: <1.0 AI Positive: >0.9 AI Performed By: #### W SR, C3COMP, C4COMP, CRP, RF, SYPHGX, ENAID, DNA, SEPG, COMPD #### [facility] [address] [place] [address] Lupus Anticoag Panelon 01-22 Anti Xa Inhib Assay *LAB USE ONLY* Anti Xa activity was not detected. Normal [facility] Comment on above: Result Comment: This test was developed and its performance characteristics determined by [facility] [place] [facility] It has not been cleared or approved by the FDA. -[facility] is regulated under CLIA as qualified to perform high-complexity testing. This test is used for clinical purposes. It should not be regarded as investigational or for research. Performed By: #### W SR, C3COMP, C4COMP, CRP, RF, SYPHGX, ENAID, DNA, SEPG, COMPD #### [place] [id number] [place] [phone] aPTT Coag time (Bld) 28.7 s Normal 24.4-33.4 [facility] Comment on above: Performed By: #### W SR, C3COMP, C4COMP, CRP, RF, SYPHGX, ENAID, DNA, SEPG, COMPD #### [place] [phone] [place] [phone] aPTT Coag time (Bld) 27.5 s Normal <33.2 [facility] Comment on above: Performed By: #### W SR, C3COMP, C4COMP, CRP, RF, SYPHGX, ENAID, DNA, SEPG, COMPD #### [facility] [address] [place] [phone] aPTT Coag time (Bld) 25.5 s Normal 23.0-32.4 [facility] Comment on above: Result Comment: Unfr actionated [...] laboratory APTT reagent in use throughout the [facility]. Performed By: #### W SR, C3COMP, C4COMP, CRP, RF, SYPHGX, ENAID, DNA, SEPG, COMPD #### [place] [phone] [place] [address] aPTT Coag time (Bld) 29.8 s Normal <35.0 [facility] Comment on above: Performed By: #### W SR, C3COMP, C4COMP, CRP, RF, SYPHGX, ENAID, DNA, SEPG, COMPD #### [place] [phone] Beta2 Glycoprot IgG <9 Normal <20 [facility] Comment on above: Result Comment: < 20 SGU Negative 20-80 SGU Low Positive > 80 SGU High Positive These results were obtained with the Datavolution QUANTA Lite B2 GPI IgG MARIN. B2 GPI IgG values obtained with different manufacturers' assay methods may not be used interchangeably. The magnitude of the reported IgG levels cannot be correlated to an endpoint titer. Performed By: #### W SR, C3COMP, C4COMP, CRP, RF, SYPHGX, ENAID, DNA, SEPG, COMPD #### [place] [address] DRVVT 1:1 Mix 36.5 sec Normal 32.7-46.7 [facility] Comment on above: Performed By: #### W SR, C3COMP, C4COMP, CRP, RF, SYPHGX, ENAID, DNA, SEPG, COMPD #### [place] [phone] [place] [address] DRVVT Confirm Ratio 1.03 Normal <1.21 [facility] Comment on above: Performed By: #### W SR, C3COMP, C4COMP, CRP, RF, SYPHGX, ENAID, DNA, SEPG, COMPD #### [facility] [address] [place] [address] DRVVT Screen 34.2 sec Normal 32.7-46.7 [facility] Comment on above: Performed By: #### W SR, C3COMP, C4COMP, CRP, RF, SYPHGX, ENAID, DNA, SEPG, COMPD #### [place] [phone] [place] [address] Hex Phase Confirm 46.8 sec Normal 41.8-54.9 [facility] Comment on above: Performed By: #### W SR, C3COMP, C4COMP, CRP, RF, SYPHGX, ENAID, DNA, SEPG, COMPD #### [place] [id number] [place] [address] Hex Phase Delta 2.9 delta sec Normal <9.1 [facility] Comment on above: Performed By: #### W SR, C3COMP, C4COMP, CRP, RF, SYPHGX, ENAID, DNA, SEPG, COMPD #### [place] [phone] [place] [address] Hex Phase Screen 49.7 sec Normal 45.0-59.9 [facility] Comment on above: Performed By: #### W SR, C3COMP, C4COMP, CRP, RF, SYPHGX, ENAID, DNA, SEPG, COMPD #### [place] [phone] [place] [address] IgA Cardiolipin Ab. <9 Normal 0-11 [facility] Comment on above: Result Comment: <12 APL Negative 12-40 APL Equivocal >40 APL Positive The following results were obtained with an Datavolution QUANTA Lite BJ IgA III MARIN. Cardiolipin IgA values obtained with different manufacturers' assay methods may not be used interchangeably. The magnitude of the reported IgA levels cannot be correlated to an endpoint titer. Performed By: #### W SR, C3COMP, C4COMP, CRP, RF, SYPHGX, ENAID, DNA, SEPG, COMPD #### [facility] [address] [place] [address] IgG Cardiolipin Ab. <9 Normal 0-9 [facility] Comment on above: Result Comment: <10 GPL [...] RF, SYPHGX, ENAID, DNA, SEPG, COMPD #### [facility] [address] [place] [address] IgM Cardiolipin Ab. 14 MPL High 0-11 [facility] Comment on above: Result Comment: <12 MPL [...] RF, SYPHGX, ENAID, DNA, SEPG, COMPD #### [facility] [address] [place] [address] INR Coag RelTime (Bld) {INR} Low 0.9-1.3 [facility] Comment on above: Result Comment: Margo min K Antagonist (VKA) Therapeutic Range: INR 2 to 3 (Target INR of 2.5) Note: For patients treated with VKA drugs, such as warfarin, the [employer] [facility] 2012 Guideline recommends [...] RUFF, et al. Chest 2012, 141:7S-47S Kathie SANCHEZ, et al. [facility] 2017, 70: 252-289 Performed By: #### W SR, C3COMP, C4COMP, CRP, RF, SYPHGX, ENAID, DNA, SEPG, COMPD #### [facility] [employer] [address] [address] Interpretation (NOTE) Normal [facility] Comment on above: Result Comment: Perf orming [...] RF, SYPHGX, ENAID, DNA, SEPG, COMPD #### [facility] [employer] [address] [address] PNP Negative Normal Negative [facility] Comment on above: Performed By: #### W SR, C3COMP, C4COMP, CRP, RF, SYPHGX, ENAID, DNA, SEPG, COMPD #### [place] [id number] [place] [address] Protein mass conc g/dL Normal <20 [facility] Comment on above: Result Comment: < 20 [facility] Negative 20-80 [facility] Low Positive > 80 [facility] High Positive These results were obtained with the WhittlA Lite B2 GPI IgM MARIN. B2 GPI IgM values obtained with different manufacturers' assay methods may not be used interchangeably. The magnitude of the reported IgM levels cannot be correlated to an endpoint titer. Performed By: #### W SR, C3COMP, C4COMP, CRP, RF, SYPHGX, ENAID, DNA, SEPG, COMPD #### [place] [address] PT Sec 9.6 sec Low 9.7-13.0 [facility] Comment on above: Performed By: #### W SR, C3COMP, C4COMP, CRP, RF, SYPHGX, ENAID, DNA, SEPG, COMPD #### [place] [address] Thrombin Time 15.1 sec Normal <18.6 [facility] Comment on above: Performed By: #### W SR, C3COMP, C4COMP, CRP, RF, SYPHGX, ENAID, DNA, SEPG, COMPD #### [place] [phone] [place] [address] Protein Electrophor.on 01-22 Albumin mass conc 4.60 g/dL High 3.37-4.23 [facility] Comment on above: Performed By: #### W SR, C3COMP, C4COMP, CRP, RF, SYPHGX, ENAID, DNA, SEPG, COMPD #### [place] [address] Alpha 1 Globulin 0.25 gm/dL Normal 0.18-0.31 [facility] Comment on above: Performed By: #### W SR, C3COMP, C4COMP, CRP, RF, SYPHGX, ENAID, DNA, SEPG, COMPD #### [place] [id number] [place] [phone] Alpha 2 Globulin 0.72 gm/dL Normal 0.52-0.97 [facility] Comment on above: Performed By: #### W SR, C3COMP, C4COMP, CRP, RF, SYPHGX, ENAID, DNA, SEPG, COMPD #### [place] [phone] Beta Globulin 0.98 gm/dL Normal 0.84-1.36 [facility] Comment on above: Performed By: #### W SR, C3COMP, C4COMP, CRP, RF, SYPHGX, ENAID, DNA, SEPG, COMPD #### [place] [phone] Gamma Globulin 1.15 gm/dL Normal 0.70-1.44 [facility] Comment on above: Performed By: #### W SR, C3COMP, C4COMP, CRP, RF, SYPHGX, ENAID, DNA, SEPG, COMPD #### [place] [phone] Interpretation SEE COMMENT Normal [facility] Comment on above: Result Comment: No d efinitive M protein is identified on protein electrophoresis. Performed By: #### W SR, C3COMP, C4COMP, CRP, RF, SYPHGX, ENAID, DNA, SEPG, COMPD #### [place] [id number] [place] [phone] M Bienvenido Concentratn 0.00 gm/dL Normal 0.00 [facility] Comment on above: Performed By: #### W SR, C3COMP, C4COMP, CRP, RF, SYPHGX, ENAID, DNA, SEPG, COMPD #### [place] [phone] [place] [address] Protein mass conc N/A Normal [facility] Comment on above: Performed By: #### W SR, C3COMP, C4COMP, CRP, RF, SYPHGX, ENAID, DNA, SEPG, COMPD #### [place] [address] Protein mass conc 7.7 g/dL Normal 6.0-8.4 [facility] Comment on above: Performed By: #### W SR, C3COMP, C4COMP, CRP, RF, SYPHGX, ENAID, DNA, SEPG, COMPD #### [place] [address] SPE Staff Review Reviewed by Dre Roa MD ([id number]) [facility] Comment on above: Performed By: #### W SR, C3COMP, C4COMP, CRP, RF, SYPHGX, ENAID, DNA, SEPG, COMPD #### [place] [address] Rheumatoid Factoron 01-23-20 19 Rheumatoid Factor <10 Normal <16 [facility] Comment on above: Performed By: #### W SR, C3COMP, C4COMP, CRP, RF, SYPHGX, ENAID, DNA, SEPG, COMPD #### [place] [address] Sed Rate Westergrenon 2018 Sed Rate Westergren 5 mm/hr Normal 0-20 [facility] Comment on above: Performed By: #### W SR, C3COMP, C4COMP, CRP, RF, SYPHGX, ENAID, DNA, SEPG, COMPD #### [place] [address] Syphilis IgG with Confon Syphilis IgG <0.2 Normal [facility] Comment on above: Result Comment: Anti body index is interpreted as follows: Non reactive SPECIMENS <=0.8 Weak reactive SPECIMENS 0.9 to 5.9 Reactive SPECIMENS >=6.0 Performed By: #### W SR, C3COMP, C4COMP, CRP, RF, SYPHGX, ENAID, DNA, SEPG, COMPD #### [place] [phone] Syphilis IgG, Qual Nonreactive Normal Nonreactive [facility] Comment on above: Result Comment: No s erological evidence of infection with T. pallidum. Performed By: #### W SR, C3COMP, C4COMP, CRP, RF, SYPHGX, ENAID, DNA, SEPG, COMPD #### [place] [phone] Urinalysis with Microscopico n 01-22-2019 Bilirubin, Urine Negative Normal Negative [facility] Comment on above: Performed By: #### W SR, C3COMP, C4COMP, CRP, RF, SYPHGX, ENAID, DNA, SEPG, COMPD #### [place] [phone] Clarity Nom (U) Clear Normal Clear [facility] Comment on above: Performed By: #### W SR, C3COMP, C4COMP, CRP, RF, SYPHGX, ENAID, DNA, SEPG, COMPD #### [place] [phone] Color Nom (U) Yellow Normal Yellow [facility] Comment on above: Performed By: #### W SR, C3COMP, C4COMP, CRP, RF, SYPHGX, ENAID, DNA, SEPG, COMPD #### [place] [phone] Comments SEE COMMENT [facility] Comment on above: Result Comment: N/A Performed By: #### W SR, C3COMP, C4COMP, CRP, RF, SYPHGX, ENAID, DNA, SEPG, COMPD #### [place] [phone] Epithelial cells LM.HPF #/area (Urine sed) SEE COMMENT Normal [facility] Comment on above: Result Comment: Few Squamous Epithelial Cells Performed By: #### W SR, C3COMP, C4COMP, CRP, RF, SYPHGX, ENAID, DNA, SEPG, COMPD #### [place] [phone] Glucose Ql (U) 150 mg/dL Critically abnormal Negative [facility] Comment on above: Performed By: #### W SR, C3COMP, C4COMP, CRP, RF, SYPHGX, ENAID, DNA, SEPG, COMPD #### [place] [phone] Hemoglobin/Blood,Ur Negative Normal Negative [facility] Comment on above: Performed By: #### W SR, C3COMP, C4COMP, CRP, RF, SYPHGX, ENAID, DNA, SEPG, COMPD #### [place] [phone] Ketones Ql (U) Negative Normal [facility] Comment on above: Performed By: #### W SR, C3COMP, C4COMP, CRP, RF, SYPHGX, ENAID, DNA, SEPG, COMPD #### [place] [phone] Leukest Negative Normal [facility] Comment on above: Performed By: #### W SR, C3COMP, C4COMP, CRP, RF, SYPHGX, ENAID, DNA, SEPG, COMPD #### [place] [phone] Nitrite Ql (U) Negative Normal Negative [facility] Comment on above: Performed By: #### W SR, C3COMP, C4COMP, CRP, RF, SYPHGX, ENAID, DNA, SEPG, COMPD #### [place] [phone] [place] [address] pH (Bld) 7.0 Normal 4.5-8.0 [facility] Comment on above: Performed By: #### W SR, C3COMP, C4COMP, CRP, RF, SYPHGX, ENAID, DNA, SEPG, COMPD #### [place] [phone] [place] [phone] Protein mass conc (U) Negative Normal Negative [facility] Comment on above: Performed By: #### W SR, C3COMP, C4COMP, CRP, RF, SYPHGX, ENAID, DNA, SEPG, COMPD #### [place] [address] RBC #/vol (U) 0-3 Normal 0-3 [facility] Comment on above: Performed By: #### W SR, C3COMP, C4COMP, CRP, RF, SYPHGX, ENAID, DNA, SEPG, COMPD #### [place] [address] Specific [place], Ur 1.005 Normal 1.005-1.030 [facility] Comment on above: Performed By: #### W SR, C3COMP, C4COMP, CRP, RF, SYPHGX, ENAID, DNA, SEPG, COMPD #### [place] [address] Urine Olegario Comment SEE COMMENT Normal [facility] Comment on above: Result Comment: N/A Performed By: #### W SR, C3COMP, C4COMP, CRP, RF, SYPHGX, ENAID, DNA, SEPG, COMPD #### [place] [phone] [place] [address] Urobilinogen Qn (U) Normal Normal Normal [facility] Comment on above: Performed By: #### W SR, C3COMP, C4COMP, CRP, RF, SYPHGX, ENAID, DNA, SEPG, COMPD #### [facility] [employer] [address] [place], [place] [address] WBC #/vol (Bld) 0-5 Normal 0-5 [facility] Comment on above: Performed By: #### W SR, C3COMP, C4COMP, CRP, RF, SYPHGX, ENAID, DNA, SEPG, COMPD #### [facility] [employer] [address] [place], [place] [address] XR CHEST 2V FRONTAL/LATon XR CHEST 2V [...] Jan 22 2019 11:27AM EST [id number] Normal [facility] ED Provider Noteon 8 Protein mass conc Triage Chief Complaint:Abdominal PainHOPI:Bernadette Faust is a 23 y.o. female who presents to the emergencydepartment as a transfer [facility] for abdominal pain. She has beenexperiencing pain for the past day. She describes it as a sharp, stabbingsensation that waxes and wanes and it worse with movement. It is nonradiatingand she has never experienced similar pain before. She has had associated nauseaand 2 episodes of nonbloody emesis. She had a positive test 3 days agobut has not had an ultrasound or established hat renovator care. Her last menstrualperiod was in the [...] Color, UA Yellow Lt. Yellow NA Specific [place], Urine 1.015 1.005 - 1.030 NA pH, [...] 09/11/2018 05:35:00 EST ExamUS Transvaginal Ordering Physician [id number] CUNNINGHAM Accession Number [id number] Codes 20185 () Reason For Exam LLQ pain Report [...] the above findings and that I maintain ahigh suspicion for ectopic . I explained to her the importance offollowing up with [facility] in 48 hours in order to have a repeatquantitative hCG drawn. She has expressed her understanding therefore she wasdischarged home in stable condition. The hat renovator service was contacted and madeaware of the [...] dictating provider for clarification.Yue Ya MD09/11/181926 [facility] HCG,Urine Qualon 09-11-2018 HCG.beta subunit ( test) Ql (U) Positive Normal Negative [facility] Comment on above: Result Comment: Preg subhash [...] 05:35:00 EST Exam US Transvaginal Ordering Physician [id number] YUE READ Accession Number [id number] CPT4 Codes 51457 () Reason For Exam LLQ pain Report [...] Time: 09/11/2018 6:41 Normal [facility] Urinalysis,Macroon 8 Appearance Clear Normal Clear [facility] Comment on above: Performed By: #### H EMDF, BMP3 ####The performing lab is in the report. Bilirubin,Ur Negative Normal Negative [facility] Comment on above: Performed By: #### H EMDF, BMP3 ####The performing lab is in the report. Color Yellow Normal Lt. Yellow [facility] Comment on above: Performed By: #### H EMDF, BMP3 ####The performing lab is in the report. Glucose Ql (U) NEG (Normal) Normal Negative [facility] Comment on above: Performed By: #### H EMDF, BMP3 ####The performing lab is in the report. Ketone,Urine Negative Normal Negative [facility] Comment on above: Performed By: #### H EMDF, BMP3 ####The performing lab is in the report. Leukocytes Trace Normal Negative [facility] Comment on above: Performed By: #### H EMDF, BMP3 ####The performing lab is in the report. Nitrites Negative Normal Negative [facility] Comment on above: Performed By: #### H EMDF, BMP3 ####The performing lab is in the report. Occult Blood,Ur Negative Normal Negative [facility] Comment on above: Performed By: #### H EMDF, BMP3 ####The performing lab is in the report. pH Test strip (U) 5.0 Normal 5.0-8.0 [facility] Comment on above: Performed By: #### H EMDF, BMP3 ####The performing lab is in the report. Specific [place],Urine 1.015 Normal 1.005-1.030 [facility] Comment on above: Performed By: #### H EMDF, BMP3 ####The performing lab is in the report. Total Protein,Urine Negative Normal Negative [facility] Comment on above: Performed By: #### H EMDF, BMP3 ####The performing lab is in the report. Urobilinogen Normal (0.2) Normal 0-1 [facility] Comment on above: Performed By: #### H EMDF, BMP3 ####The performing lab is in the report. Urinalysis,Microscopicon Bacteria Few (1-5) Normal Negative [facility] Comment on above: Performed By: #### H EMDF, BMP3 ####The performing lab is in the report. Epithelial Cells 0 - 2 Normal 3-5 [facility] Comment on above: Performed By: #### H EMDF, BMP3 ####The performing lab is in the report. RBC LM.HPF #/area (Urine sed) Negative Normal 0-2 [facility] Comment on above: Performed By: #### H EMDF, BMP3 ####The performing lab is in the report. Volume,Urine 12 ml Normal [facility] Comment on above: Performed By: #### H EMDF, BMP3 ####The performing lab is in the report. WBC LM.HPF #/area (Urine sed) 0 - 2 Normal 0-5 [facility] Comment on above: Performed By: #### H EMDF, BMP3 ####The performing lab is in the report. hCG Quantitativeon 8 hCG Quantitative 332 m[IU]/mL Abnormal < 3 [facility] Comment on above: Performed By: #### H EMDF, BMP3 ####The performing lab is in the report. HCG,Urine Qualon 07-27-2018 HCG.beta subunit ( test) Ql (U) Negative Normal Negative [facility] Comment on above: Result Comment: Preg subhash is the most common reason for HCG in urine, althoughchoriocarcinoma, hydatidiform mole, and certain nontropho-blastic malignancies also result in detectable urinary HCGlevels. Sensitivity = 20mIU/mL. Performed By: #### H EMDF, BMP3 ####The performing lab is in the report. hCG Qual [place] 07-27-2018 hCG Qual Preg Negative Normal [facility] Comment on above: Result Comment: REF RANGE:Negative .... < 3Questionable Rpt 48-72 HrPositive ..... > 10 Performed By: #### H EMDF, BMP3 ####The performing lab is in the report. Basic Metabolic Panelon 06 Anion gap 3 molar conc 7 Normal [facility] Comment on above: Performed By: #### H EMDF, TROPN, BMP3, DDI2, BNP3 ####[place] [id number] [place] [address] Calcium mass conc 9.4 mg/dL Normal 8.2-10.1 [facility] Comment on above: Performed By: #### H EMDF, TROPN, BMP3, DDI2, BNP3 ####[place] [id number] [place] [address] Chloride molar conc 103 mmol/L Normal 98-109 [facility] Comment on above: Performed By: #### H EMDF, TROPN, BMP3, DDI2, BNP3 ####[facility] [place] [address] CO2 molar conc 24 mmol/L Normal 21-32 [facility] Comment on above: Performed By: #### H EMDF, TROPN, BMP3, DDI2, BNP3 ####[facility] [place] [address] Creatinine mass conc 0.97 mg/dL Normal 0.55-1.40 [facility] Comment on above: Performed By: #### H EMDF, TROPN, BMP3, DDI2, BNP3 ####[place] [id number] [place] [address] GFR/1.73 sq M predicted among blacks MDRD vol rate/area (S/P/Bld) mL/min/{1.73_m2} Normal >60 [facility] Comment on above: Performed By: #### H EMDF, TROPN, BMP3, DDI2, BNP3 ####[address] [address] GFR/1.73 sq M predicted among non-blacks MDRD vol rate/area (S/P/Bld) mL/min/{1.73_m2} Normal >60 [facility] Comment on above: Result Comment: Sour ce- MDRD equation with creatinine calibration to IDMS(NKDEP) eGFR not recommended for drug dose adjustment Performed By: #### H EMDF, TROPN, BMP3, DDI2, BNP3 ####[address] [address] Glucose mass conc 104 mg/dL High 70-100 [facility] Comment on above: Result Comment: . Performed By: #### H EMDF, TROPN, BMP3, DDI2, BNP3 ####[address] [address] Potassium molar conc 3.5 mmol/L Normal 3.5-5.1 [facility] Comment on above: Performed By: #### H EMDF, TROPN, BMP3, DDI2, BNP3 ####[address] [address] Sodium molar conc 134 mmol/L Low 135-145 [facility] Comment on above: Performed By: #### H EMDF, TROPN, BMP3, DDI2, BNP3 ####[address] [address] Urea nitrogen mass conc 9 mg/dL Normal 7-25 [facility] Comment on above: Performed By: #### H EMDF, TROPN, BMP3, DDI2, BNP3 ####[address] [address] CR Chest PA/LATon 03-31-2018 CR Chest PA/LAT Patient Name: BERNADETTE GODINEZ Diagnostic Radiology Exam Date/Time 03/31/2018 15:58:01 EDT Exam CR Chest PA/LAT Ordering Physician MD TAYLOR EARL Accession Number [id number] CPT4 Codes 03583 () Reason For Exam shortness of breath [...] Time: 03/31/2018 4:00 Normal [facility] D-Dimer, Innovanceon 018 D-Dimer, Innovance < 0.19 Normal 0.00-0.50 [facility] Comment on above: Result Comment: Inno amin D-Dimer values of <0.50 mg/L FEU can be used incombination with a pre-test probability model (e.g. Well's)to exclude pulmonary embolism (PE) disease, as well as ciro in the diagnosis of deep vein thrombosis (DVT). Performed By: #### H EMDF, TROPN, BMP3, DDI2, BNP3 ####[facility] [place] [address] Drugs of Abuseon 03-31-2018 Amphetamine, Ur Positive Normal [facility] Comment on above: Performed By: #### H EMDF, BMP3 ####The performing lab is in the report. Barbiturates, Ur Positive Normal [facility] Comment on above: Performed By: #### H EMDF, BMP3 ####The performing lab is in the report. Benzodiazepines, Ur Negative Normal [facility] Comment on above: Performed By: #### H EMDF, BMP3 ####The performing lab is in the report. Cocaine, Ur Negative [facility] Comment on above: Performed By: #### H EMDF, BMP3 ####The performing lab is in the report. Methadone, Ur Negative Normal [facility] Comment on above: Performed By: #### H EMDF BMP3 ####The performing lab is in the report. Opiates, Ur Negative Normal [facility] Comment on above: Performed By: #### H EMDF BMP3 ####The performing lab is in the report. Oxycodone/Oxymorphone, Ur Negative Normal [facility] Comment on above: Performed By: #### H EMDF BMP3 ####The performing lab is in the report. Phencyclidine (PCP), Ur Negative Normal [facility] Comment on above: Result Comment: The expected [...] using non-forensic procedures. Performed By: #### H ATTILA BMP3 ####The performing lab is in the report. Hemogram w/ Autodiffon 03-31 Abs Baso Cnt 0.0 10*3/uL Normal 0.0-0.2 [facility] Comment on above: Performed By: #### H EMDF, TROPN, BMP3, DDI2, BNP3 ####[facility] [place] [address] Abs Neutrophile Cnt 4.0 10*3/uL Normal 1.8-7.0 [facility] Comment on above: Performed By: #### H EMDF, TROPN, BMP3, DDI2, BNP3 ####[facility] [place] [address] Basophils/100 WBC Auto (Bld) 0.5 % Normal 0.0-2.0 [facility] Comment on above: Performed By: #### H EMDF, TROPN, BMP3, DDI2, BNP3 ####[address] [address] Eosinophils Auto #/vol (Bld) 0.0 10*3/uL Normal 0.0-0.5 [facility] Comment on above: Performed By: #### H EMDF, TROPN, BMP3, DDI2, BNP3 ####[address] [address] Eosinophils/100 WBC Auto (Bld) 0.4 % Low 1.0-6.0 [facility] Comment on above: Performed By: #### H EMDF, TROPN, BMP3, DDI2, BNP3 ####[address] [address] Erythrocyte distribution width Auto Ratio (RBC) 12.5 % Normal 11.5-14.5 [facility] Comment on above: Performed By: #### H EMDF, TROPN, BMP3, DDI2, BNP3 ####[address] [address] Granulocytes/100 WBC (Bld) 57.4 % Normal 40.0-80.0 [facility] Comment on above: Performed By: #### H EMDF, TROPN, BMP3, DDI2, BNP3 ####[address] [address] Hematocrit Auto Volume Fraction (Bld) 39.5 % Normal 35.0-47.0 [facility] Comment on above: Performed By: #### H EMDF, TROPN, BMP3, DDI2, BNP3 ####[address] [address] Hemoglobin mass conc (Bld) 13.2 g/dL Normal 11.7-16.0 [facility] Comment on above: Performed By: #### H EMDF, TROPN, BMP3, DDI2, BNP3 ####[address] [address] Lymphocytes Auto #/vol (Bld) 2.4 10*3/uL Normal 1.0-4.3 [facility] Comment on above: Performed By: #### H EMDF, TROPN, BMP3, DDI2, BNP3 ####[address] [place] [address] Lymphocytes/100 WBC Auto (Bld) 34.6 % Normal 20.0-40.0 [facility] Comment on above: Performed By: #### H EMDF, TROPN, BMP3, DDI2, BNP3 ####[address] [address] MCH Auto Entitic mass (RBC) 28.8 pg Normal 26.0-34.0 [facility] Comment on above: Performed By: #### H EMDF, TROPN, BMP3, DDI2, BNP3 ####[address] [address] MCHC Auto mass conc (RBC) 33.4 % Normal 32.0-36.0 [facility] Comment on above: Performed By: #### H EMDF, TROPN, BMP3, DDI2, BNP3 ####[address] [address] MCV Auto Entitic volume (RBC) 86.2 fL Normal 79.0-98.0 [facility] Comment on above: Performed By: #### H EMDF, TROPN, BMP3, DDI2, BNP3 ####[address] [address] Monocytes Auto #/vol (Bld) 0.5 10*3/uL Normal 0.0-0.8 [facility] Comment on above: Performed By: #### H EMDF, TROPN, BMP3, DDI2, BNP3 ####[address] [address] Monocytes/100 WBC Auto (Bld) 7.1 % Normal 2.0-10.0 [facility] Comment on above: Performed By: #### H EMDF, TROPN, BMP3, DDI2, BNP3 ####[address] [address] Platelet mean volume Auto Entitic volume (Bld) 8.1 fL Normal 7.4-10.4 [facility] Comment on above: Performed By: #### H EMDF, TROPN, BMP3, DDI2, BNP3 ####[address] [address] Platelets Auto #/vol (Bld) 214 10*3/uL Normal 140-440 [facility] Comment on above: Performed By: #### H EMDF, TROPN, BMP3, DDI2, BNP3 ####[place] [address] [place] [address] RBC Auto #/vol (Bld) 4.59 10*6/uL Normal 3.80-5.20 [facility] Comment on above: Performed By: #### H EMDF, TROPN, BMP3, DDI2, BNP3 ####[address] [address] WBC Auto #/vol (Bld) 6.9 10*3/uL Normal 3.6-10.7 [facility] Comment on above: Performed By: #### H EMDF, TROPN, BMP3, DDI2, BNP3 ####[address] [address] NT pro BNPon 03-31-2018 Natriuretic peptide B mass conc (Bld) 44 pg/mL Normal 0-125 [facility] Comment on above: Performed By: #### H EMDF, BMP3 ####The performing lab is in the report. Troponin Ion 03-31-2018 Troponin I.cardiac mass conc ng/mL Normal 0.000-0.045 [facility] Comment on above: Result Comment: 0.04 6 - 0.400 = Indeterminate> 0.400 = Consider Myocardial Injury Performed By: #### H EMDF, TROPN, BMP3, DDI2, BNP3 ####[place] [id number] Urinalysis,Macroon 8 Appearance Clear Normal Clear [facility] Comment on above: Performed By: #### H EMDF, BMP3 ####The performing lab is in the report. Bilirubin,Ur Negative Normal Negative [facility] Comment on above: Performed By: #### H EMDF, BMP3 ####The performing lab is in the report. Color Yellow Normal Lt. Yellow [facility] Comment on above: Performed By: #### H EMDF, BMP3 ####The performing lab is in the report. Glucose Ql (U) NEG (Normal) Normal Negative [facility] Comment on above: Performed By: #### H EMDF, BMP3 ####The performing lab is in the report. Ketone,Urine Negative Normal Negative [facility] Comment on above: Performed By: #### H EMDF, BMP3 ####The performing lab is in the report. Leukocytes 1 + Normal Negative [facility] Comment on above: Performed By: #### H EMDF, BMP3 ####The performing lab is in the report. Nitrites Negative Normal Negative [facility] Comment on above: Performed By: #### H EMDF, BMP3 ####The performing lab is in the report. Occult Blood,Ur Negative Normal Negative [facility] Comment on above: Performed By: #### H EMDF, BMP3 ####The performing lab is in the report. pH Test strip (U) 7.0 Normal 5.0-8.0 [facility] Comment on above: Performed By: #### H EMDF, BMP3 ####The performing lab is in the report. Specific [place],Urine 1.010 Normal 1.005-1.030 [facility] Comment on above: Performed By: #### H EMDF, BMP3 ####The performing lab is in the report. Total Protein,Urine Negative Normal Negative [facility] Comment on above: Performed By: #### H EMDF, BMP3 ####The performing lab is in the report. Urobilinogen Normal (0.2) Normal 0-1 [facility] Comment on above: Performed By: #### H EMDF, BMP3 ####The performing lab is in the report. Urinalysis,Microscopicon Bacteria Many (51-100) Normal Negative [facility] Comment on above: Performed By: #### H EMDF, BMP3 ####The performing lab is in the report. Epithelial Cells 11 - 25 Normal 3-5 [facility] Comment on above: Performed By: #### H EMDF, BMP3 ####The performing lab is in the report. RBC LM.HPF #/area (Urine sed) Negative Normal 0-2 [facility] Comment on above: Performed By: #### H EMDF, BMP3 ####The performing lab is in the report. WBC LM.HPF #/area (Urine sed) 0 - 2 Normal 0-5 [facility] Comment on above: Performed By: #### H EMDF, BMP3 ####The performing lab is in the report. Basic Metabolic Panelon 04-0 Anion gap 3 molar conc 10 mmol/L Normal [facility] Comment on above: Performed By: #### H EMDF, BMP3 ####The performing lab is in the report. Calcium mass conc 9.4 mg/dL Normal 8.2-10.1 [facility] Comment on above: Performed By: #### H EMDF, BMP3 ####The performing lab is in the report. Chloride molar conc 100 mmol/L Normal 98-109 [facility] Comment on above: Performed By: #### H EMDF, BMP3 ####The performing lab is in the report. CO2 molar conc 28 mmol/L Normal 21-32 [facility] Comment on above: Performed By: #### H EMDF, BMP3 ####The performing lab is in the report. Creatinine mass conc 0.81 mg/dL Normal 0.55-1.40 [facility] Comment on above: Performed By: #### H EMDF, BMP3 ####The performing lab is in the report. GFR/1.73 sq M predicted among blacks MDRD vol rate/area (S/P/Bld) mL/min/{1.73_m2} Normal >60 [facility] Comment on above: Performed By: #### H EMDF, BMP3 ####The performing lab is in the report. GFR/1.73 sq M predicted among non-blacks MDRD vol rate/area (S/P/Bld) mL/min/{1.73_m2} Normal >60 [facility] Comment on above: Result Comment: Sour ce- MDRD equation with creatinine calibration to IDMS(NKDEP)eGFR not recommended for drug dose adjustment Performed By: #### H EMDF, BMP3 ####The performing lab is in the report. Glucose mass conc 119 mg/dL High 70-100 [facility] Comment on above: Result Comment: . Performed By: #### H MARVELF, BMP3 ####The performing lab is in the report. Potassium molar conc 3.9 mmol/L Normal 3.5-5.1 [facility] Comment on above: Performed By: #### H EMDF, BMP3 ####The performing lab is in the report. Sodium molar conc 138 mmol/L Normal 135-145 [facility] Comment on above: Performed By: #### H EMDF, BMP3 ####The performing lab is in the report. Urea nitrogen mass conc 8 mg/dL Normal 7-25 [facility] Comment on above: Performed By: #### H MARVELF, BMP3 ####The performing lab is in the report. HCG,Urine Qualon 02-02-2018 HCG.beta subunit ( test) Ql (U) Negative Normal Negative [facility] Comment on above: Result Comment: Preg subhash is the most common reason for HCG in urine, althoughchoriocarcinoma, hydatidiform mole, and certain nontropho-blastic malignancies also result in detectable urinary HCGlevels. Sensitivity = 20mIU/mL. Performed By: #### H CGUR, UAMAC ####The performing lab is in the report. Hemogram w/ Autodiffon 02-02 Abs Baso Cnt 0.4 10*3/uL High 0.0-0.2 [facility] Comment on above: Performed By: #### H EMDF, BMP3 ####The performing lab is in the report. Abs Neutrophile Cnt 9.1 10*3/uL High 1.8-7.0 [facility] Comment on above: Performed By: #### H EMDF, BMP3 ####The performing lab is in the report. Basophils/100 WBC Auto (Bld) 2.6 % High 0.0-2.0 [facility] Comment on above: Performed By: #### H EMDF, BMP3 ####The performing lab is in the report. Eosinophils Auto #/vol (Bld) 0.1 10*3/uL Normal 0.0-0.5 [facility] Comment on above: Performed By: #### H EMDF, BMP3 ####The performing lab is in the report. Eosinophils/100 WBC Auto (Bld) 0.5 % Low 1.0-6.0 [facility] Comment on above: Performed By: #### H EMDF, BMP3 ####The performing lab is in the report. Erythrocyte distribution width Auto Ratio (RBC) 11.8 % Normal 11.5-14.5 [facility] Comment on above: Performed By: #### H EMDF, BMP3 ####The performing lab is in the report. Granulocytes/100 WBC (Bld) 63.9 % Normal 40.0-80.0 [facility] Comment on above: Performed By: #### H EMDF, BMP3 ####The performing lab is in the report. Hematocrit Auto Volume Fraction (Bld) 42.2 % Normal 35.0-47.0 [facility] Comment on above: Performed By: #### H MARVELF, BMP3 ####The performing lab is in the report. Hemoglobin mass conc (Bld) 13.8 g/dL Normal 11.7-16.0 [facility] Comment on above: Performed By: #### H EMDF, BMP3 ####The performing lab is in the report. Lymphocytes Auto #/vol (Bld) 3.9 10*3/uL Normal 1.0-4.3 [facility] Comment on above: Performed By: #### H EMDF, BMP3 ####The performing lab is in the report. Lymphocytes/100 WBC Auto (Bld) 27.1 % Normal 20.0-40.0 [facility] Comment on above: Performed By: #### H EMDF, BMP3 ####The performing lab is in the report. MCH Auto Entitic mass (RBC) 27.6 pg Normal 26.0-34.0 [facility] Comment on above: Performed By: #### H EMDF, BMP3 ####The performing lab is in the report. MCHC Auto mass conc (RBC) 32.8 % Normal 32.0-36.0 [facility] Comment on above: Performed By: #### H EMDF, BMP3 ####The performing lab is in the report. MCV Auto Entitic volume (RBC) 84.3 fL Normal 79.0-98.0 [facility] Comment on above: Performed By: #### H EMDF, BMP3 ####The performing lab is in the report. Monocytes Auto #/vol (Bld) 0.9 10*3/uL High 0.0-0.8 [facility] Comment on above: Performed By: #### H EMDF, BMP3 ####The performing lab is in the report. Monocytes/100 WBC Auto (Bld) 5.9 % Normal 2.0-10.0 [facility] Comment on above: Performed By: #### H MARVELF, BMP3 ####The performing lab is in the report. Platelet mean volume Auto Entitic volume (Bld) 7.3 fL Low 7.4-10.4 [facility] Comment on above: Performed By: #### H MARVELF, BMP3 ####The performing lab is in the report. Platelets Auto #/vol (Bld) 224 10*3/uL Normal 140-440 [facility] Comment on above: Performed By: #### H MARVELF, BMP3 ####The performing lab is in the report. RBC Auto #/vol (Bld) 5.01 10*6/uL Normal 3.80-5.20 [facility] Comment on above: Performed By: #### H MARVELF, BMP3 ####The performing lab is in the report. WBC Auto #/vol (Bld) 14.4 10*3/uL High 3.6-10.7 [facility] Comment on above: Performed By: #### H EMDF, BMP3 ####The performing lab is in the report. Urinalysis,Macroon 8 Appearance Clear Normal Clear [facility] Comment on above: Performed By: #### H CGUR, UAMAC ####The performing lab is in the report. Bilirubin,Ur Negative Normal Negative [facility] Comment on above: Performed By: #### H CGUR, UAMAC ####The performing lab is in the report. Color Yellow Normal Lt. Yellow [facility] Comment on above: Performed By: #### H CGUR, UAMAC ####The performing lab is in the report. Glucose Ql (U) NEG (Normal) Normal Negative [facility] Comment on above: Performed By: #### H CGUR, UAMAC ####The performing lab is in the report. Ketone,Urine Negative Normal Negative [facility] Comment on above: Performed By: #### H CGUR, UAMAC ####The performing lab is in the report. Leukocytes Trace Normal Negative [facility] Comment on above: Performed By: #### H CGUR, UAMAC ####The performing lab is in the report. Nitrites Negative Normal Negative [facility] Comment on above: Performed By: #### H CGUR, UAMAC ####The performing lab is in the report. Occult Blood,Ur Negative Normal Negative [facility] Comment on above: Performed By: #### H CGUR, UAMAC ####The performing lab is in the report. pH Test strip (U) 6.5 [pH] Normal 5.0-8.0 [facility] Comment on above: Performed By: #### H CGUR, UAMAC ####The performing lab is in the report. Specific [place],Urine 1.010 Normal 1.005-1.030 [facility] Comment on above: Performed By: #### H CGUR, UAMAC ####The performing lab is in the report. Total Protein,Urine Negative Normal Negative [facility] Comment on above: Performed By: #### H [...] Ordering Physician MD JUAREZ, TONY Accession Number [id number] CPT4 Codes 32929 () Reason For Exam right fingers injury [...] the right hand. Report Dictated on Workstation: [employer] Final Dictated: 12/23/2017 6:12 am Dictating Physician: MD THAKUR RUSSELL Signed Date and Time: 12/23/2017 6:13 am Signed by: MD THAKUR RUSSELL Transcribed Date and Time: 12/23/2017 6:12 Normal [facility] Vital Signs Date Time Vital Sign Value Performing Clinician Facility 06-13-2025 10:34-0400 Body height 165.[address] Becky Sotelo MD Work Phone: [facility] 06-13-2025 10:34-0400 Body mass index (BMI) [Ratio] 32.1 kg/m2 Dr. Becky Sotelo MD Work Phone: [facility] 06-13-2025 10:34-0400 Body temperature 97.2 [degF] Dr. Becky Sotelo MD Work Phone: [facility] 06-13-2025 10:34-0400 Body weight 87.[address] Becky Sotelo MD Work Phone: 3(956)046-391422 [address] 06-13-2025 10:34-0400 Diastolic blood pressure 66 mm[Hg] Dr. Becky Sotelo MD Work Phone: [facility] 06-13-2025 10:34-0400 Heart rate 82 /min Dr. Becky Sotelo MD Work Phone: [facility] 06-13-2025 10:34-0400 Respiratory rate 16 /min Dr. Becky Sotelo MD Work Phone: 7(304)928-299557 [place] [address] 06-13-2025 10:34-0400 SaO2% (BldA) [Mass fraction] 96 % Dr. Becky Sotelo MD Work Phone: 4(773)271-308057 [place] [address] 06-13-2025 10:34-0400 Systolic blood pressure 116 mm[Hg] Dr. Becky Sotelo MD Work Phone: 9(845)489-618657 [place] [address] 06-13-2025 10:26-0400 Body mass index (BMI) [Ratio] 32.5 kg/m2 Dr. Becky Sotelo MD Work Phone: 5(120)249-895857 [place] [address] 06-13-2025 10:26-0400 Body weight 88.[address] Becky Sotelo MD Work Phone: 6(444)872-374157 [place] [address] 06-13-2025 10:26-0400 Diastolic blood pressure 78 mm[Hg] Dr. Becky Sotelo MD Work Phone: 4(370)917-095657 [place] [address] 06-13-2025 10:26-0400 Systolic blood pressure 128 mm[Hg] Dr. Becky Sotelo MD Work Phone: 1(851)299-471657 [place] [address] 04-23-2025 09:49-0400 Body height 165.[address] Becky Sotelo MD Work Phone: 5(316)221-612057 [place] [address] 04-23-2025 09:49-0400 Body mass index (BMI) [Ratio] 33.5 kg/m2 Dr. Becky Sotelo MD Work Phone: 6(837)139-207757 [place] [address] 04-23-2025 09:49-0400 Body temperature 98.5 [degF] Dr. Becky Sotelo MD Work Phone: 2(391)747-027957 [place] [address] 04-23-2025 09:49-0400 Body weight 91.[address] Becky Sotelo MD Work Phone: 9(260)802-282357 [place] [address] 04-23-2025 09:49-0400 Diastolic blood pressure 80 mm[Hg] Dr. Becky Sotelo MD Work Phone: 4(173)454-240557 [place] [address] 04-23-2025 09:49-0400 Heart rate 81 /min Dr. Becky Sotelo MD Work Phone: 9(953)447-820857 [place] [address] 04-23-2025 09:49-0400 Respiratory rate 18 /min Dr. Becky Sotelo MD Work Phone: 6(601)634-475457 [place] [address] 04-23-2025 09:49-0400 SaO2% (BldA) [Mass fraction] 96 % Dr. Becky Stoelo MD Work Phone: 6(893)494-033357 [place] [address] 04-23-2025 09:49-0400 Systolic blood pressure 142 mm[Hg] Dr. Becky Sotelo MD Work Phone: 5(057)770-244857 [place] [address] 03-31-2025 13:38-0400 Body height 165.[address] Becky Sotelo MD Work Phone: 8(069)130-321857 [place] [address] 03-31-2025 13:38-0400 Body mass index (BMI) [Ratio] 31.8 kg/m2 Dr. Becky Sotelo MD Work Phone: 5(491)366-570257 [place] [address] 03-31-2025 13:38-0400 Body weight 86.[address] Becky Sotelo MD Work Phone: 6(736)385-072857 [place] [address] 03-31-2025 13:38-0400 Diastolic blood pressure 77 mm[Hg] Dr. Becky Sotelo MD Work Phone: 5(516)787-332657 [place] [address] 03-31-2025 13:38-0400 Systolic blood pressure 115 mm[Hg] Dr. Becky Sotelo MD Work Phone: 0(596)407-379557 [place] [address] 03-28-2025 08:26-0400 Body height 165.[address] Becky Sotelo MD Work Phone: 5(939)079-963357 [place] [address] 03-28-2025 08:26-0400 Body mass index (BMI) [Ratio] 32.1 kg/m2 Dr. Becky Sotelo MD Work Phone: 8(812)446-770557 [place] [address] 03-28-2025 08:26-0400 Body temperature 97.1 [degF] Dr. Becky Sotelo MD Work Phone: 4(726)206-197957 [place] [address] 03-28-2025 08:26-0400 Body weight 87.[address] Becky Sotelo MD Work Phone: 4(061)014-795757 [place] [address] 03-28-2025 08:26-0400 Diastolic blood pressure 72 mm[Hg] Dr. Becky Sotelo MD Work Phone: 9(941)054-417157 [place] [address] 03-28-2025 08:26-0400 Heart rate 76 /min Dr. Becky Sotelo MD Work Phone: 8(895)776-522957 [place] [address] 03-28-2025 08:26-0400 Respiratory rate 16 /min Dr. Becky Sotelo MD Work Phone: 3(856)134-670957 [place] [address] 03-28-2025 08:26-0400 SaO2% (BldA) [Mass fraction] 97 % Dr. Becky Sotelo MD Work Phone: 7(874)844-428057 [place] [address] 03-28-2025 08:26-0400 Systolic blood pressure 112 mm[Hg] Dr. Becky Sotelo MD Work Phone: 2(519)721-715557 [place] [address] 03-07-2025 08:45-0400 Body mass index (BMI) [Ratio] 31.2 kg/m2 Dr. Becky Sotelo MD Work Phone: 1(577)340-826657 [place] [address] 03-07-2025 08:45-0400 Body temperature 97.2 [degF] Dr. Becky Sotelo MD Work Phone: 6(814)219-234857 [place] [address] 03-07-2025 08:45-0400 Body weight 85.[address] Becky Sotelo MD Work Phone: 3(520)808-465357 [place] [address] 03-07-2025 08:45-0400 Diastolic blood pressure 80 mm[Hg] Dr. Becky Sotelo MD Work Phone: 3(956)471-934457 [place] [address] 03-07-2025 08:45-0400 Heart rate 84 /min Dr. Becky Sotelo MD Work Phone: 7(624)158-510857 [place] [address] 03-07-2025 08:45-0400 Respiratory rate 16 /min Dr. Becky Sotelo MD Work Phone: 7(109)742-195857 [place] [address] 03-07-2025 08:45-0400 SaO2% (BldA) [Mass fraction] 98 % Dr. Becky Sotelo MD Work Phone: 3(697)544-632857 [place] [address] 03-07-2025 08:45-0400 Systolic blood pressure 110 mm[Hg] Dr. Becky Sotelo MD Work Phone: 4(579)238-722857 [place] [address] 02-28-2025 17:12-0400 Body temperature 98 [degF] Dr. Becky Sotelo MD Work Phone: 5(214)560-999957 [place] [address] 02-28-2025 17:12-0400 Diastolic blood pressure 70 mm[Hg] Dr. Becky Sotelo MD Work Phone: 5(354)448-222357 [place] [address] 02-28-2025 17:12-0400 Heart rate 68 /min Dr. Becky Sotelo MD Work Phone: 2(849)850-683757 [place] [address] 02-28-2025 17:12-0400 Respiratory rate 12 /min Dr. Becky Sotelo MD Work Phone: 2(957)646-932057 [place] [address] 02-28-2025 17:12-0400 SaO2% (BldA) [Mass fraction] 100 % Dr. Becky Sotelo MD Work Phone: 5(771)699-555157 [place] [address] 02-28-2025 17:12-0400 Systolic blood pressure 108 mm[Hg] Dr. Becky Sotelo MD Work Phone: 2(032)498-603957 [place] [address] 02-28-2025 15:20-0400 Body mass index (BMI) [Ratio] 30.3 kg/m2 Dr. Becky Sotelo MD Work Phone: 1(343)251-618857 [place] [address] 02-28-2025 15:20-0400 Body weight 82.[address] Becky Sotelo MD Work Phone: 6(117)905-117757 [place] [address] 02-25-2025 08:36-0400 Body mass index (BMI) [Ratio] 30.2 kg/m2 Dr. Becky Sotelo MD Work Phone: 7(257)215-632757 [place] [address] 02-25-2025 08:36-0400 Body weight 82.[address] Becky Sotelo MD Work Phone: [facility] 02-25-2025 08:36-0400 Diastolic blood pressure 83 mm[Hg] Dr. Becky Sotelo MD Work Phone: [facility] 02-25-2025 08:36-0400 Systolic blood pressure 134 mm[Hg] Dr. Becky Sotelo MD Work Phone: [facility] 12-25-2024 09:17-0500 Body temperature 97.7 [degF] Acute Resident [facility] 12-25-2024 09:17-0500 Diastolic blood pressure 96 mm[Hg] Acute Resident [facility] 12-25-2024 09:17-0500 Heart rate 101 /min Acute Resident [facility] 12-25-2024 09:17-0500 Respiratory rate 16 /min Acute Resident [facility] 12-25-2024 09:17-0500 Systolic blood pressure 154 mm[Hg] Acute Resident [facility] 11-27-2024 18:00-0500 Diastolic blood pressure 84 mm[Hg] Junior Garcia MD Work Phone: [facility] 11-27-2024 18:00-0500 Heart rate 80 /min Junior Garcia MD Work Phone: [facility] 11-27-2024 18:00-0500 Respiratory rate 18 /min Junior Garcia MD Work Phone: [facility] 11-27-2024 18:00-0500 SaO2% (BldA) [Mass fraction] 99 % Junior Garcia MD Work Phone: [facility] 11-27-2024 18:00-0500 Systolic blood pressure 126 mm[Hg] Junior Garcia MD Work Phone: [facility] 11-27-2024 11:20-0500 Body temperature 98.01 [degF] Junior Garcia MD Work Phone: [facility] 11-27-2024 10:14-0500 Body temperature 98.29 [degF] [email or web address] 11-27-2024 10:14-0500 Diastolic blood pressure 72 mm[Hg] Ned[facility]ado [email or web address] 11-27-2024 10:14-0500 Heart rate 87 /min Ned[facility]urtado [email or web address] 11-27-2024 10:14-0500 Respiratory rate 16 /min Ned[facility]ado [email or web address] 11-27-2024 10:14-0500 Systolic blood pressure 125 mm[Hg] Ned[facility]ado [email or web address] 11-19-2024 09:14-0500 Body temperature 98.2 [degF] Adelfo Nice MD [email or web address] 11-19-2024 09:14-0500 Diastolic blood pressure 76 mm[Hg] Adelfo Nice [email or web address] 11-19-2024 09:14-0500 Heart rate 80 /min Adelfo Nice [email or web address] 11-19-2024 09:14-0500 Respiratory rate 17 /min Adelfo Nice [email or web address] 11-19-2024 09:14-0500 SaO2% (BldA) [Mass fraction] 97 % Adelfo Nice MD Work Phone: [facility] 11-19-2024 09:14-0500 Systolic blood pressure 117 mm[Hg] Adelfo Nice MD Work Phone: [facility] 02-10-2022 12:03-0400 Body height 165.[address] Becky Sotelo Work Phone: [facility] Work Phone: 02-10-2022 12:03-0400 Body mass index (BMI) [Ratio] 25.9 kg/m2 Dr. Becky Sotelo Work Phone: [facility] Work Phone: 02-10-2022 12:03-0400 Body weight 70.[address] Becky Sotelo Work Phone: [facility] Work Phone: 02-10-2022 12:03-0400 Diastolic blood pressure 82 mm[Hg] Dr. Becky Sotelo Work Phone: [facility] Work Phone: 02-10-2022 12:03-0400 Systolic blood pressure 136 mm[Hg] Dr. Becky Sotelo Work Phone: [facility] Work Phone: Encounters Encounter Date Encounter Type Care Provider Facility Start: 07-12-2025 End: 07-12-[address] Radha Pascual MD Work Phone: -Laboratory Work Phone: Start: 07-12-2025 End: 07-12-2025 Refill Sarahy Estevez MD Work Phone: [facility] DATE NIGHT SITTER Comment on above: Refill Start: 07-12-2025 End: 07-12-2025 ambulatory Radha Pascual Facility:[facility] Start: 06-21-2025 End: 06-21-2025 Refill Sarahy Estevez MD Work Phone: [facility] DATE NIGHT SITTER Comment on above: Refill Start: 06-20-2025 End: 06-20-2025 Patient encounter procedure Humberto ENGLAND -[facility] Work Phone: Start: 06-20-2025 End: 06-20-[address] Becky Sotelo MD Work Phone: -[facility] Start: 06-13-2025 End: 06-13-[address] Elaine Jones MD -[facility] Work Phone: Start: 06-13-2025 End: 06-13-[address] Becky Sotelo MD Work Phone: -[facility] Start: 06-13-2025 End: 06-13-2025 ambulatory Elaine Jones Facility:[facility] Start: 05-29-2025 ambulatory Radha Tannerlay Facility :[facility] Start: 05-28-2025 End: 05-28-[address] Becky Sotelo MD Work Phone: -Laboratory [facility] Start: 05-28-2025 End: 05-28-[address] Radha Pascual MD -[facility] Start: 05-28-2025 End: 05-28-2025 ambulatory [facility] Facility:[facility] Start: 05-09-2025 End: 05-09-[address] Becky Sotelo MD Work Phone: -Ultrasound [facility] Start: 05-09-2025 End: 05-09-2025 Patient encounter procedure La LESTER -Ultrasound [facility] Work Phone: Start: 05-09-2025 End: 05-09-2025 ambulatory [facility] Facility:[facility] Start: 05-05-2025 End: 05-05-2025 Refill Sarahy Estevez MD Work Phone: [facility] Continuity DATE NIGHT SITTER Comment on above: Refill Start: 04-24-2025 End: 04-24-[address] Becky Sotelo MD Work Phone: -Laboratory Specimen Start: 04-24-2025 End: 04-24-2025 Patient encounter procedure La LESTER -Laboratory Specimen Work Phone: Start: 04-23-2025 End: 04-23-2025 Patient encounter procedure La LESTER -[facility] Work Phone: Start: 04-23-2025 End: 04-24-[address] Becky Sotelo MD Work Phone: [facility] Work Phone: Start: 04-08-2025 End: 04-08-2025 Refill Sarahy Estevez MD Work Phone: [facility] DATE NIGHT SITTER Comment on above: Refill Start: 03-31-2025 End: 03-31-[address] Elaine Jones MD -[facility] Work Phone: Start: 03-31-2025 End: 03-31-[address] Becky Sotelo MD Work Phone: [facility] Work Phone: Start: 03-28-2025 End: 03-28-2025 Patient encounter procedure Humberto ENGLAND -[facility] Work Phone: Start: 03-28-2025 End: 03-28-[address] Becky Sotelo MD Work Phone: [facility] Work Phone: Start: 03-13-2025 End: 03-13-2025 Refill Sarahy Estevez MD Work Phone: [facility] DATE NIGHT SITTER Comment on above: Refill Start: 03-07-2025 End: 03-07-2025 Patient encounter procedure Humberto ENGLAND -[facility] Work Phone: Start: 03-07-2025 End: 03-07-2025 ambulatory Radha Pascual Facility:[facility] Start: 02-28-2025 End: 02-28-2025 Emergency department patient visit Dr. Jorge Samuels DO -Emergency Department Work Phone: Start: 02-25-2025 End: 02-25-[address] Elaine Jones MD -Laboratory Work Phone: Start: 02-25-2025 End: 02-25-[address] Elaine Jones MD -[facility] Work Phone: Start: 02-25-2025 End: 02-25-2025 ambulatory Becky Sotelo Facility:[facility] Start: 02-25-2025 End: 02-25-2025 ambulatory Elaine Jones Facility:[facility] Start: 02-15-2025 End: 02-15-2025 Letter encounter Nedra Hurtado MD Work Phone: [facility] Start: 12-25-2024 End: 12-25-2024 Office outpatient visit 25 minutes Acute Care Surgery Resident [facility] Acute Care Surgery Comment on above: Postprocedural intra abdominal abscess (HCC) (Primary Dx) Start: 12-25-2024 End: 12-25-2024 ambulatory UNKNOWN PROVIDER Facility:[facility] Start: 12-20-2024 ambulatory Becky Magana y:BMS Start: 12-06-2024 End: 12-06-2024 Telephone encounter Dewey Gorman RN [facility] Acute Ca re Surgery Start: 12-05-2024 End: 12-15-2024 Telephone encounter Nedra Hurtado MD Work Phone: [facility] Line Comment on above: DME wound care. Start: 11-29-2024 End: 11-29-[address] TRUCK [address]IVER, [facility]ED[facility]LE [facility] Start: 11-29-2024 End: 11-29-2024 Coordination of care plan Demetra Tellez [address] TRUCK DRIVER, SCHEDULE [facility] Comment on above: Care Coordination Start: 11-28-2024 End: 11-28-[address] TRUCK DRIVER, SCHEDULE ANNOUNC[facility] Start: 11-28-2024 End: 11-28-2024 Coordination of care plan Demetra Tellez [address] TRUCK DRIVER, SCHEDULE ANNOUNCER [facility] Social Work Comment on above: Care Coordination Start: 11-27-2024 End: 11-27-2024 Office outpatient visit 40 minutes Nedra Hurtado MD Work Phone: [facility] Acute Care Surgery Comment on above: Postprocedural intra abdominal abscess (HCC) (Primary Dx) Start: 11-27-2024 End: 11-27-2024 Emergency department patient visit UNKNOWN PROVIDER Facility:[facility] Comment on above: Abdominal pain (Conc savana for perf bowl d/t drain output ) Start: 11-27-2024 End: 11-27-2024 ambulatory UNKNOWN PROVIDER Facility:[facility] Start: 11-27-2024 Emergency department patient visit UNKNOWN PROVIDER Facility:[facility] Start: 11-19-2024 End: 11-19-[address] Start: 11-19-2024 End: 11-19-2024 Coordination of care plan Demetra Tellez [address] TRUCK DRIVER, [facility] Social Work Comment on above: Care Coordination Start: 11-19-2024 Evaluation and management of inpatient UNKNOWN PROVIDER Facility:[facility] Start: 11-15-2024 End: 11-19-2024 Evaluation and management of inpatient ADELFO NICE Facility:[facility] Start: 11-15-2024 ambulatory UNKNOWN PROVIDER Facili ty:[facility] Start: 11-14-2024 End: 11-19-2024 Evaluation and management of inpatient UNKNOWN PROVIDER Facility:[facility] Comment on above: Pre-eclampsia, antep artum (HCC) (Primary Dx); Postprocedural intraabdominal abscess (HCC); Positive urine drug screen; Type 2 diabetes mellitus without complication, without long-term current use of insulin (HCC) Start: 11-14-2024 End: 11-14-2024 Emergency department patient visit Sheila Kimrus Facility:[facility] Start: 11-14-2024 ambulatory Genesis Mcintosh Facility :[facility] Start: 11-14-2024 End: 11-15-2024 Emergency department patient visit UNKNOWN PROVIDER Facility:[facility] Start: 11-07-2024 End: 11-07-2024 ambulatory Elaine Jones Facility:[facility] Start: 11-06-2024 ambulatory Elaine Karen Faci lity:[facility] Start: 11-06-2024 End: 11-09-2024 Evaluation and management of inpatient Elaine Jones Facility:[facility] Start: 05-07-2024 ambulatory Marlo NATH RN.HIGH SCHOOL MATH TUTOR Work Phone: [facility] [place] Comment on above: PHMA/Care Gap Outrea Start: 05-07-2024 Telephone encounter Marlo avitia APRN.HIGH SCHOOL MATH TUTOR Work Phone: [facility] [place] Comment on above: Appointment Start: 02-10-2022 End: 02-10-[address] Becky Sotelo Work Phone: [facility]-Laboratory, Specimen Start: 02-10-2022 End: 02-10-[address] Becky Sotelo Work Phone: [facility] Start: 01-22-2019 End: 01-23-2019 Patient encounter procedure [facility] Start: 10-11-2018 Patient requested procedure Marlo Loza CHILDCARE TEACHER.HIGH SCHOOL MATH TUTOR Work Phone: [facility] Start: 10-04-2018 Patient encounter procedure SHYANNMAINOR BUSH Facility:[facility] Start: 09-11-2018 Emergency department patient visit Nishant Lucio [facility] Start: 07-27-2018 Emergency department patient visit UNKNOWN PROVIDER [facility] Start: 06-21-2018 Emergency department patient visit Edithigor Benitez [facility] Start: 03-31-2018 Emergency department patient visit Zhao Taylor [facility] Start: 02-02-2018 Emergency department patient visit UNKNOWN PROVIDER [facility] Start: 01-07-2018 Emergency department patient visit Marlo Orlando [facility] Start: 12-23-2017 [facility] Start: 11-04-2017 Emergency department patient visit UNKNOWN PROVIDER [facility] Procedures Date Procedure Procedure Detail Performing Clinician Start: 07-12-2025 Methadone measurement, urine Dr. Radha Pascual MD Work Phone: Start: 05-28-[address] Becky mcginnis MD Work Phone: Comment on above: Test Ordered: [id number] Hair Drug Screen 9 PanelAmphetamines Negative pg/mg [...] otherwise noted.Test developed and characteristics determined by [facility]. See Compliance Statementon our website [email or web address] by: Jenaformed at: [facility] [address] [place], [place] [id number] Director: Tami Stover PhD, Phone: [phone] at: [address] [id number] Director: Donell Nieto PhD, Phone: [phone] Start: 05-09-[address] Becky Sotelo MD Work Phone: Start: 04-24-[address]25 [address] diff[address] e detection Dr. Becky Sotelo MD Work Phone: Start: 04-24-[address] Becky Sotelo MD Work Phone: Start: 04-24-2025 Ova OR parasites identification Dr. Radha Pascual MD Work Phone: Start: 04-24-2025 Iadna-dna/rna gi [...] abdomen & pelvis w/contrast material Annie Parker APRN-HIGH SCHOOL MATH TUTOR Work Phone: Start: 11-27-2024 Radex abscess/fistul a/sinus tract rs&i Tushar Mondragon PA-C Work Phone: Start: 11-27-2024 Assay of lipase Bella beatty CHILDCARE TEACHER-HIGH SCHOOL MATH TUTOR Work Phone: Start: 11-27-2024 Hepatic function panel Bella Win CHILDCARE TEACHER-HIGH SCHOOL MATH TUTOR Work Phone: Start: 11-19-2024 Glucose blood reagent [...] screening Janna Carrasco MD Work Phone: Start: 11-15-2024 [...] DTaP,Tdap,Td Vaccine (4 - Td or Tdap) [facility] Start: 11-27-2025 Creatinine measurement Basic Metabolic Panel [facility] Start: 07-30-2025 Influenza vaccination Influenza Vaccine (#1) [facility] Start: 06-30-2025 COVID-19 Vaccine ( season) COVID-19 Vaccine ( season) [facility] Start: 06-30-2025 Influenza vaccination Influenza Vaccine (#1) [facility] Start: 06-13-2025 CBC W Auto Differential panel - Blood [facility] Start: 06-13-2025 Comprehensive metabolic 2000 panel - Serum or Plasma [facility] Start: 06-13-2025 Hemoglobin A1c/Hemoglobin.total in Blood [facility] Start: 06-13-2025 Partial thromboplastin time, activated [facility] Start: 06-13-2025 Prothrombin time [facility] Start: 06-13-2025 Thyroid stimulating hormone measurement [facility] Start: 05-15-2025 Hemoglobin A1c measurement Hemoglobin A1C [facility] Start: 04-24-2025 Ova and Parasites Ova and Parasites [facility] Start: 04-24-2025 Ova OR parasites identification [facility] Start: 03-31-2025 Patient referral [facility] Work Phone: Start: 02-28-2025 [facility] Start: 02-25-2025 Patient referral [facility] Work Phone: Start: 06-30-2024 COVID-19 Vaccine () COVID-19 Vaccine () [facility] Start: 06-30-2024 Influenza vaccination Influenza Vaccine (#1) [facility] Start: 10-30-2023 Behavioral Health Screening Behavioral Health Screening [facility] Start: 06-30-2023 Covid-19 Vaccine ( season) Covid-19 Vaccine ( season) [facility] Start: 10-14-2022 Hepatitis B surface antibody level LDL Cholesterol [facility] Start: 10-14-2022 Lipid panel [facility] Start: 10-14-2022 Urine screening for protein Urine Protein (microalbumin) [facility] Start: 10-07-2022 Annual PCP Team Chronic Disease Visit Annual PCP Team Chronic Disease Visit [facility] Start: 09-02-2022 Screening for malignant neoplasm of cervix Cervical Cancer Screening [facility] Start: 01-12-2022 Hemoglobin A1c measurement HbA1C [facility] Start: 02-08-2020 HPV Vaccine (optional start 27-45 years) HPV Vaccine (optional start 27-45 years) [facility] Start: 05-11-2019 Screening for malignant neoplasm of cervix Pap Smear [facility] Start: 09-15-2018 Pneumococcal vaccination [facility] Start: 02-03-2018 Glaucoma screening Dilated Retinal Exam [facility] Start: 02-08-2012 Hepatitis A (HAV) Vaccine (optional start 19+ years) Hepatitis A (HAV) Vaccine (optional start 19+ years) [facility] Start: 02-08-2012 Hepatitis B vaccination Hepatitis B (HBV) Vaccine (1 of 3 - 19+ 3-dose series) [facility] Start: 2011 Hepatitis C screening Hepatitis C Antibody [facility] Start: 2011 Spirometry Spirometry [facility] Start: 2003 Diabetic foot examination Diabetic Foot Exam [facility] Start: 1993 Glaucoma screening Eye Exam [facility] Start: 1993 Cyanocobalamin vitamin b-12 Vitamin B12 [facility] Start: 1993 Diabetic foot examination Foot Exam [facility] Alanine aminotransfe rase [Enzymatic activity/volume] in Serum or Plasma [facility] Albumin [Mass/volume ] in Serum or Plasma [facility] Alkaline phosphatase [Enzymatic activity/volume] in Serum or Plasma [facility] Anion gap in Serum o r Plasma [facility] Bilirubin, total measurement [facility] BUN/Creatinine ratio [facility] Calcium [Mass/volume ] in Serum or Plasma [facility] Carbon dioxide, tota l [Moles/volume] in Central venous blood [facility] Clostridioides diffi cile DNA [Presence] in Unspecified specimen by SAE with probe detection [facility] Creatinine [Mass/vol ume] in Serum or Plasma [facility] Elastase.pancreatic [Presence] in Stool [facility] EDMUND DIABETES - [place]C [place] YOUR BLOOD SUGAR EDMUND DIABETES - CHECKING YOUR BLOOD SUGAR EDMUND Routine Type 2 diabetes mellitus without complication, without long-term current use of insulin ([facility]) 11/17/2024 1:12 PM EST [facility] EDMUND DIABETES - TYPE 2 EDMUND DIAB ETES - TYPE 2 EDMUND Routine Type 2 diabetes mellitus without complication, without long-term current use of insulin ([facility]) 11/17/2024 1:12 PM EST [employer] Work Phone: Erythrocyte mean corpuscular volume determination [facility] Glucose [Mass/volume ] in Serum or Plasma [facility] Hematocrit [Volume Fraction] of Blood [facility] Hemoglobin [Mass/vol ume] in Blood [facility] INR in Blood by Coagulation assay [facility] Leukocytes [#/volume ] in Blood [facility] Mean corpuscular hemoglobin concentration determination [facility] Mean corpuscular hemoglobin determination [facility] Measurement of renal function [facility] Neutrophil count [facility] Neutrophil percent differential count [facility] Nucleic acid assay [facility] Ova OR parasites identification [facility] Patient Education ED Dysfunction al Uterine Bleeding [facility] Work Phone: Patient referral [facility] Work Phone: Platelets [#/volume] in Blood [facility] Potassium measurement [facility] Procedure [facility] Procedure [facility] Red blood cell count [facility] Red cell distributio n width determination [facility] Serum chloride measurement [facility] Sodium measurement [facility] Total protein measurement [facility] Urea nitrogen [Mass/volume] in Serum or Plasma [facility] US Abdomen limited [facility] Immunizations Immunization Date Immunization Notes Care Provider Fa niyah 11-15-2024 measles, mumps and rubella virus vaccine Adelof Nice MD Work Phone: [facility] 11-15-2024 Hemoglobin A1C Nedra Hurtado MD Work Phone: [facility] 10-01-2018 influenza virus vaccine, unspecified formulation Marlo Maciel CHILDCARE TEACHER.HIGH SCHOOL MATH TUTOR Work Phone: [facility] 09-15-2017 pneumococcal polysaccharide vaccine, 23 valent Nedra Hurtado MD Work Phone: [facility] 07-18-2016 tetanus toxoid, redu clara diphtheria toxoid, and acellular pertussis vaccine, adsorbed Dr. Becky Sotelo Work Phone: [facility] Work Phone: 01-01-2014 measles, mumps and rubella virus vaccine Dr. Becky Sotelo Work Phone: [facility] 10-28-2013 tetanus toxoid, redu clara diphtheria toxoid, and acellular pertussis vaccine, adsorbed Marlo Maciel CHILDCARE TEACHER.HIGH SCHOOL MATH TUTOR Work Phone: [facility] 03-18-2013 tetanus toxoid, redu clara diphtheria toxoid, and acellular pertussis vaccine, adsorbed Marlo Maciel CHILDCARE TEACHER.HIGH SCHOOL MATH TUTOR Work Phone: [facility] Payers Date Payer Category Payer Unknown 0 2024 Self-pay [id number] 2024 Medicaid (Managed Care) [facility] MEDICAID [id number] 2024 Medicaid [id number] 2022 Medicaid [employer] [id number] 2022-Present [phone] [address] [place] [address] Medicaid [id number] 1993 Unknown [id number] 2.16.840.1.734697.3.579.2. 66 1993 Unknown [id number] 2.16.840.1.763264.3.579.2. 1993 Unknown [id number] 2.16840.1.792969.3.579.2 1993 Unknown [id number] 2.16840.1.971888.3.579.2. 1993 Unknown [id number] 2.16840.1.131184.3.579.2 1993 Unknown [id number] 2.16.840.1.035309.3.579.2 1993 Unknown [id number] 2.16.840.1.823300.3.579.2. 1993 Unknown [id number] 2.16.840.1.065321.3.579.2. 8 1993 Unknown [id number] 2.16.840.1.960958.3.579.2. 278 1993 Unknown [id number] 2.16.840.1.954072.3.579.2. 2 1993 Unknown [id number] 2.16.840.1.270543.3.579.2. 1993 Unknown [id number] 2.16.840.1.037932.3.579.2. 732 1993 Unknown [id number] 2.16.840.1.261745.3.579.2. 732 1993 Unknown [id number] 2.840.1.705871.3.579.2. 732 1993 Unknown [id number] 2..840.1.234813.3.579.2. 732 1993 Unknown [id number] 2.840.1.980223.3.579.2. 732 Medicaid [id number] Private Health Insurance [id number] Unknown Unknown [id number] .840.1.565666.3.579.2. 462 Unknown [id number] 2.840.1.031321.3.579.2. 462 Unknown [id number] 2.840.1.830316.3.579.2. 462 Unknown [id number] .840.1.035571.3.579.2. 462 Unknown [id number] .840.1.462768.3.579.2. 462 Unknown [id number] .840.1.780920.3.579.2. 462 Unknown [id number] .840.1.991426.3.579.2. 462 Unknown [id number] .840.1.765761.3.579.2. 462 Unknown [id number] .840.1.893062.3.579.2. 462 Unknown [id number] .840.1.448126.3.579.2. 462 Unknown [id number] 2.840.1.952863.3.579.2. 462 Unknown [id number] 2.840.1.895393.3.579.2. 462 Unknown [id number] 2.840.1.330073.3.579.2. 462 Unknown [id number] 2.16.840.1.354373.3.579.2. 462 Unknown [id number] 2.16.840.1.286873.3.579.2. 462 Unknown [id number] 2.16.840.1.256788.3.579.2. 462 Unknown [id number] 2.16.840.1.710232.3.579.2. 462 Unknown [id number] 2.16.840.1.681700.3.579.2. 462 Unknown [id number] 2.16.840.1.733507.3.579.2. 462 Unknown [id number] 2.16.840.1.045764.3.579.2. 462 Unknown [id number] 2.16.840.1.827517.3.579.2. 462 Unknown [id number] 2.16.840.1.118894.3.579.2. 462 Unknown [id number] 2.16.840.1.013009.3.579.2. 462 Unknown [id number] 2.16.840.1.566139.3.579.2. 462 Unknown [id number] 2.16.840.1.225619.3.579.2. 462 Social History Date Type Detail Facility Start: 02-10-2022 [facility] Start: 1995 Sex Assigned At Female [facility] Work Phone: Start: 09-07-2011 End: 04-23-2025 Tobacco smoking status NYIS Never smoked tobacco [facility] Start: 09-07-2011 Tobacco use and exposure Smokeless tobacco non-user [facility] Start: 08-31-2021 Alcohol intake Current drinke r of alcohol (finding) [facility] Start: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 Admission: 55% Reason for Referral: Transportation Assistance DULCE MARIA met with Pt's provider, Dr. Estevez alone in SW office. Dr. Estevez shared that Pt is post- and is scheduled for a post-op appointment on 11/27 at [facility] to have her drain removed. Dr. Estevezreported that this Pt lives in [place] and is unsure of how to get to [facility] as she does not have transportation. Pt also does not have insurance. Dr. Estevez shared that Pt otherwise has been setup with all of her care at a local doctor's office, but they have refused to remove this drain as they did not insert it. Dr. Estevez also reported Pt will be connected with a local SW as well. DULCE MARIA informed inpatient Gneesis العراقي and Dr. Estevez that this SW will schedule Lyft for Pt's appointment on 11/27.DULCE MARIA scheduled Lyft and sent Pt a flexible link. SW attempted to reach Pt via telephone call to inform her of scheduled ride. DULCE MARIA LVM for Pt providing SW contact information. Plan: SW will remain available. ASHLY Church LSW Outpatient Financial Planning Analyst [phone] [id number] Miscellaneous Notes* Telephone Encounter - Demetra Tellez MSW, LSW - 11/19/2024 2:56 PM EST DATE NIGHT SITTER Risk Score for Admission: 55% Reason for Referral: Transportation Assistance DULCE MARIA met with Pt's provider, Dr. Estevez alone in SW office. Dr. Estevez shared that Pt is post- and is scheduled for a post-op appointment on 11/27 at [facility] to have her drain removed. Dr. Estevezreported that this Pt lives in [place] and is unsure of how to get to [facility] as she does not have transportation. Pt also does not have insurance. Dr. Estevez shared that Pt otherwise has been setup with all of her care at a local doctor's office, but they have refused to remove this drain as they did not insert it. Dr. Estevez also reported Pt will be connected with a local SW as well. SW informed inpatient DULCE MARIA, Genesis and Dr. Estevez that this SW will schedule Lyft for Pt's appointment on 11/27.SW scheduled Lyft and sent Pt a flexible link. SW attempted to reach Pt via telephone call to inform her of scheduled ride. DULCE MARIA LVM for Pt providing SW contact information. Plan: SW will remain available. ASHLY Church LSW Outpatient Financial Planning Analyst [phone] documented in this [id number] NoteEXAMINATION: CT ABSCESS DRAINAGE (VIET) 11/15/2024 05:35 PM CLINICAL HISTORY: Rad Procedure required: = Intra-abdominal abscess drainage,abscess ASSOCIATED DIAGNOSIS: Postprocedural intraabdominal abscess (HCC) Postprocedural intraabdominal abscess (HCC) ORDERING PROVIDER: JANNA CARRASCO TECHNOLOGISTS NOTE: Moderate Intra-Service Sedation: Start Time: 1652 End Time: 171 Total Versed: 1 mg Total Fentanyl: 100 [...] sterile fashion. Under CT guidance, a 5 Mexican Yueh catheter was advanced into the right lower quadrant collection via a right anterolateral approach. A 0.035 Amplatz wire was advanced through the catheter, with subsequent removal of the catheter and serial dilatations over the wire. A 12 Mexican drainage catheter was then advanced over the [...] IMPRESSION: Technically successful placement of a 12 Mexican pigtail catheter into a right lower quadrant fluid collection. OF NOTE, PREPROCEDURAL IMAGING IS HIGHLY CONCERNING FOR COLONIC PERFORATION. MACRO: None I have personally reviewed the images and agree with the resident's interpretation.The U Grok It - Smartphone RFID [id number] NoteEXAMINATION: CT ABSCESS DRAINAGE (VIET) 11/15/2024 05:35 PM CLINICAL HISTORY: Rad Procedure required: = Intra-abdominal abscess drainage,abscess ASSOCIATED DIAGNOSIS: Postprocedural intraabdominal abscess (HCC) Postprocedural intraabdominal abscess (HCC) ORDERING PROVIDER: JANNA CARRASCO TECHNOLOGISTS NOTE: Moderate Intra-Service Sedation: Start Time: 1652 End Time: 171 Total Versed:1 mg Total Fentanyl: 100 mcg ATTENDING PHYSICIAN: [...] sterile fashion. Under CT guidance, a 5 Mexican Yueh catheter was advanced into the right lower quadrant collection via a right anterolateral approach. A 0.035 Amplatz wire was advanced through the catheter, with subsequent removal of the catheter and serial dilatations over the wire. A 12 Mexican drainage catheter was then advanced over the [...] IMPRESSION: Technically successful placement of a 12 Mexican pigtail catheter into a right lower quadrant fluid collection. OF NOTE, PREPROCEDURAL IMAGING IS HIGHLY CONCERNING FOR COLONIC PERFORATION. MACRO: None I have personally reviewed the images and agree with the resident's interpretation. [id number] Plan of care note* Care Plan Note [...] adult patient will be met Outcome: Progressing [id number] Miscellaneous Notes* Care Plan Note - Bozena [...] ongoing. * Care Plan Note - Kalyani Mac RN [...] of discharge disposition. * Progress Notes - NoteWriter - Jeff Renteria RN - 11/17/2024 3:11 PM EST Educated pt on a diabetic diet including amounts needed from each food group. Provided pt with pamphlets from [place] [employer]. Pt verbalized an understanding. * [...] BID H/o Bipolar--Currently appropriate mood on lamictal, mixing machine tender consider psych input Recent Pos UTox--for SW [...] Renteria RN Outcome: Progressing 11/15/2024 115 by eJff Renteria RN Outcome: Progressing Goal: Free from injury during hospitalization 11/15/20241922 by Jeff Renteria RN Outcome: Progressing 11/15/2024 115 by Jeff Renteria RN Outcome: Progressing Problem: Discharge Planning: Goal: Discharge needs of the adult patient will be met 11/15/20241922 by Jeff Renteria RN Outcome: Progressing 11/15/2024 115 by Jeff Renteria RN Outcome: Progressing * Post-Procedure Note - Becky Zayas MD - 11/15/2024 5:34 PM EST POST-PROCEDURE NOTE Procedure: CT guided drained placement in intraabdominal fluid collection Pre-operative Diagnosis: Intraabdominal fluid collection adjacent to suspected colonic perforation Post-operative Diagnosis: same Attending: Chica Andres MD Field Irrigation Worker: Becky Zayas MD A TIME OUT [...] monitoring in High risk. documented in this [id number] Plan of care note* Care Plan Note [...] will be met Outcome: Progressing POC ongoing. [id number] Consult note* Tania Nowak RD - 11/18/2024 4:03 PM EST Images [...] place referral for Diabetes Self Management Program [id number] in discharge orders Patient will receive a call from certified adapted physical educator regarding scheduling Tania Nowak RD, LD, [facility] Personal Pager: [phone] Lease Analyst Nutrition Pager: [phone] Time spent on patient care: 60 minutes [facility] Work Phone: 1(540) 113-279301-20-2025 NoteBrief Nutrition Follow-Up Reason for RD visit: [...] place referral for Diabetes Self Management Program [id number] in discharge orders Patient will receive a call from certified adapted physical educator regarding scheduling Tania Nowak RD, LD, CNSC Personal Pager: [phone] Lease Analyst Nutrition Pager: [phone] Time spent on patient care: 60 minutesThe [employer] - Smartphone RFID [id number] Consult note* Tania Nowak RD - 11/18/2024 4:03 PM EST Images [...] place referral for Diabetes Self Management Program [id number] in discharge orders Patient will receive a call from certified adapted physical educator regarding scheduling Tania Nowak RD, LD, [facility] Personal Pager: [phone] Lease Analyst Nutrition Pager: [phone] Time spent on patient care: 60 minutes [...] the floor for a procedure. Genesis LIMON, [facility] Social Work [phone] * Tania Nowak RD - 11/15/2024 10:58 AM ESTAssociated Order(s): NUTRITION NEW CONSULT Images from the original note were not included. Date: 11/15/24 LOS: 0 days Room: [place] [address] Brief Nutrition Education Note Reason for RD [...] at ), was worked up at OSH ([facility]) for RUQ abd pain and found to [...] outpatient education - Diabetes Self Management Program: [id number] in discharge orders. Patient will receive a call from certified adapted physical educator regarding scheduling Tania Nowak RD, LD, [facility] Personal Pager: [phone] On-Call Nutrition Pager: [phone] Time spent on patient care: 15 minutes Dietitian vs DietaryTech: Dietitian and Machinist 2Nd Shift * Cesar Bueno, - 11/15/2024 8:53 AM ESTAssociated Order(s): IP PSYCHIATRIC ADULT CONSULT Images from the original note were not included. PSYCHIATRY CONSULT LIAISON NOTE PROVIDER REQUESTING CONSULT: Adelfo Nice MD Inpatient Floor: [facility] 08 - [id number] Reason for Consult: hx Bipolar, reported medications and chart meds discrepancy (medication reconciliation) IDENTIFICATION: BERNADETTE Faust is a 29 year old White female HISTORY OF PRESENT ILLNESS Hospital Course: A 29-year-old at postoperative day 9 following an emergent C- section at 34 weeks for placental abruption and preeclampsia, presents with acutely worsening right upper quadrant pain after transfer from [facility]. Chart reviewed, and from a medical perspective, [...] The patient follows with a psychiatrist in [place], [place], who prescribes lamotrigine 200 mg daily [...] patient [place] currently have a psychiatric provider in [place], but has been attempting to establish care there. Her prescriptions are written and filled in [place]. She denies suicidal ideation, homicidal ideation, or auditory/visual hallucinations. She reports nodifficulties with sleep, appetite, or medication side effects. PRN's Received: - none for agitation or anxiety PER CHART REVIEW [facility] 11/06/24 - 11/09/24 The patient was hospitalized at [facility] from November 06 to November 09, 2024, [...] (Ir) 5 Mg Tablet 28.00 7 Dec [id number] Banda ([id number]) 0 PSYCHIATRIC REVIEW OF SYSTEMS: As per HPI Suicide Assessment Tool C-SSRS [place]-Suicide Severity Rating Scale Able to complete [place]-Suicide Severity Rating Scale with Patient?: Yes 1) Wish to be : No 2) Current suicidal thoughts: No 6) C-SSRS Suicidal Behavior: No Risk of Suicide: Negative Screen Did patient score moderate or high risk on the C-SSRS?: No SAFE-T PSYCHIATRIC HISTORY: Psychiatric diagnoses: bipolar disorder (self reported), ADHD, anxiety Outpatient psychiatrist/counselor: Leonila Junior, [place] (self reported) Inpatient psychiatric admissions (when/why?): none [...] current occupational status: employed 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 She follows with Dr. Morales in [place], [place], though it is unclear why her [...] will follow up with Dr. Morales in [place], [place], and will schedule the appointment independently. Recommendations were communicated to Dr. Muhammad and Dr. Rubin via secure chat. We will sign off, please page with any new concerns. The patient was seen and discussed with attending psychiatrist. Iveth Hall MD River Guide, PGY-2 If patient is admitted to the hospital and psychiatric consultation is necessary, please place order in [facility] for IP Psychiatry Adult Consult and page: 8:00 AM - 5:00 PM: [phone] 5:00 PM - 8:00 AM, weekends or holidays: [phone] Teaching Physician Note During my evaluation of [...] from the original note were not included. AIRPORT SKILLED MAINTENANCE SUPERVISOR CONSULT NOTE 11/15/24 6:53 AM PGY-4 S: [...] Encourage SCDs and ambulation Juany Muhammad MD DATE NIGHT SITTER PGY-4 Cosigned by Marco Stovall MD at [...] MD Maternal Medicine, Complex Family Planning Pager: [phone] * Dana Hall, - 11/15/2024 2:12 AM ESTAssociated Order(s): IP EMERGENCY GENERAL SURGERY CONSULT Images from the original note were not included. [facility] Department of Surgery EMERGENCY GENERAL SURGERY CONSULT NOTE BERNADETTE Faust [id number] Reason for Consultation: Abdominal abscess HPI BERNADETTE [...] DO General Surgery Department Green Surgery Pager [phone] Purple (MIS, Gen, Peds) Surgery Pager [phone] Blue Surgery (Surgical Oncology, Breast) Pager [phone] Vascular Surgery Pager - [phone] Acute Care Surgery Pager [phone] ACS Consults [phone] ACS Floor Patients Cosigned by Ronda Wing [...] 34 weeks for placental abruption (11/06- Baby [facility]- baby still in NICU in [facility]). She was worked up at an OSH for RUQ abdominal pain and found to have a RUQ fluid collection con cering for an intra-abdominal abscess. She was transferred to [facility] for possible IR drainage ofthis collection. Physical [...] -High -decision regarding hospitalization documented in this [id number] Plan of care note* Care Plan Note [...] answered. Pt verbalizes understanding of discharge disposition. [id number] Progress note* Progress Notes - NoteWriter - Jeff Renteria RN - 11/17/2024 3:11 PM EST Educated pt on a diabetic diet including amounts needed from each food group. Provided pt with pamphlets from [place] [employer]. Pt verbalized an understanding. [id number] Hospital Note* Hospital Course - Magda Hanks [...] BID H/o Bipolar--Currently appropriate mood on lamictal, mixing machine tender consider psych input Recent Pos UTox--for SW consult [employer] It - Smartphone RFID Work Phone: 1(632) 733-138601-19-2025 Plan of care note* Care Plan Note [...] adult patient will be met Outcome: Progressing [id number] NoteAPU Progress Note 11/17/2024 6:51 AM S: [...] follow up . Sarahy Estevez MD MPH DATE NIGHT SITTER PGY-1 MFM Attending Antepartum Progress Note 11/17/2024 [...] H/o Bipolar--Currently appropriate mood on no meds, mixing machine tender consider psych input Recent Pos UTox--for SW consult Plan: transition to PO meds and coordinate outpatient follow up I personally explained the management plan with the pt. I spent approximately 18 minutes of floor unit time on this patient visit. Genesis Samuels MD / [id number] [facility] Attending/ p [phone]01-18[facility] Plan of care note* Care Plan [...] POC. Discussed with Dr. Samuels this AM. [facility] [id number] NoteMFM Attending Antepartum Progress Note 11/16/2024, 8:45 [...] this patient visit. Genesis Samuels MD / [id number] [facility] Attending/ p [phone]01-18-2025 Hospital Discharge instructions* Discharge Instructions* Annie Parker, MICHAEL-HIGH SCHOOL MATH TUTOR - 11/16/2024 8:45 AM EST Wound Care [...] IMMEDIATELY. Alternatively, you may come into the [facility] Emergency Department IMMEDIATELY for an emergent evaluation by the Trauma resident. Drain Care: - Keep the drain skin area clean by using a warm washcloth. - Record your drain output daily using attached table. * Attachments The following attachments cannot be sent through Care Everywhere. * How to Keep Track of Your Drainage (Solomon Islander) * How to Care for an Abdominal Drainage Catheter ([place] Islander) documented in this [id number] NoteAPU Progress Note 11/16/2024 6:37 AM S: [...] MAA Obstetrics AND Gynecology - PGY 1[facility]01-17-2025 Plan of care note* Care Plan Note [...] Renteria RN Outcome: Progressing 11/15/2024 115 by Mondragon-Garza, Jeff, RN Outcome: Progressing Goal: Free from injury during hospitalization 11/15/20241922 by Jeff Renteria RN Outcome: Progressing 11/15/2024 1151 by Jeff Renteria RN Outcome: Progressing Problem: Discharge Planning: Goal: Discharge needs of the adult patient will be met 11/15/20241922 by Jeff Renteria RN Outcome: Progressing 11/15/2024 1151 by Jeff Renteria RN Outcome: Progressing [id number] NotePOST-PROCEDURE NOTE Procedure: CT guided drained placement in intraabdominal fluid collection Pre-operative Diagnosis: Intraabdominal fluid collection adjacent to suspected colonic perforation Post-operative Diagnosis: same Attending: Chica Andres MD Field Irrigation Worker: Becky Zayas MD A TIME OUT [...] full procedural details. Becky Zayas MD [facility]25 Surgery Postoperative evaluation and management note* Post-Procedure Note - Becky Zayas MD - 11/15/2024 5:34 PM EST POST-PROCEDURE NOTE Procedure: CT guided drained placement in intraabdominal fluid collection Pre-operative Diagnosis: Intraabdominal fluid collection adjacent to suspected colonic perforation Post-operative Diagnosis: same Attending: Chica Andres MD Field Irrigation Worker: Becky Zayas MD A TIME OUT [...] Andres MD at 11/18/2024 9:48 AM EST [id number] History and physical note* Becky Zayas MD [...] Directives (Living will, health care power of attorney at law): none Patient Recent Code Status: Full Code Code Status For This Procedure: Full Code Becky Zayas MD Radiology [employer] - Smartphone RFID Work Phone: [phone]) 735-237801-17-2025 History and physical note* Becky Zayas MD [...] Directives (Living will, health care power of attorney at law): none Patient Recent Code Status: Full Code Code Status For This Procedure: Full Code Becky Zayas MD Radiology * Adelfo Nice MD - 11/15/2024 12:39 AM [...] for acutely worsening RUQ pain transferred from [facility]. RUQ pain has been present since patient [...] Hx of shoulder dystocia 2013 of 11# infant with shoulder dystocia, had clavicle fracture Hx [...] TIA 12/2016 CTH/CTA/MRI head unremarkable AC regimen: mixing machine tender baby ASA has had MS work-up due [...] of lesion + milk duct, pathology benign, 2015 mammo benign TIA (transient ischemic attack) 12/2016 [...] HTN disease - To be discharged with care management associate and short interval BP check nurse visit [...] 12/2016 CTH/CTA/MRI head unremarkable - AC regimen: retirement baby ASA - has had MS work-up [...] - desires interval TL Janna Carrasco MD/MPH DATE NIGHT SITTER PGY-2 LABOR AND DELIVERY ATTENDING PHYSICIAN NOTE: [...] Staffed with Dr. Nice. documented in this [id number] NoteMODIFIED HISTORY AND PHYSICAL: HISTORY: Procedure: CT [...] Directives (Living will, health care power of attorney at law): none Patient Recent Code Status: Full Code Code Status For This Procedure: Full Code Becky Zayas MD [facility]01-17-2025 Consult note* Genesis Ayala LSW - 11/15/2024 [...] the floor for a procedure. Genesis LIMON, SCHEDULE ANNOUNCER Social Work [phone] [id number] Progress note* Progress Notes - NoteWriter - Jeff Renteria RN - 11/15/2024 12:25 PM EST Pt down to CT. S/P general surgery attending assessed pt. [id number] Plan of care note* Care Plan Note [...] adult patient will be met Outcome: Progressing [id number] Consult note* Tania Nowak RD - 11/15/2024 10:58 AM ESTAssociated Order(s): NUTRITION NEW CONSULT Images from the original note were not included. Date: 11/15/24 LOS: 0 days Room: [place] [address] Brief Nutrition Education Note Reason for RD [...] at ), was worked up at OSH ([facility] [facility]) for RUQ abd pain and found to [...] outpatient education - Diabetes Self Management Program: [id number] in discharge orders. Patient will receive a call from certified adapted physical educator regarding scheduling Tania Nowak RD, LD, [facility] Personal Pager: [phone] On-Call Nutrition Pager: [phone] Time spent on patient care: 15 minutes Dietitian vs DietaryTech: Dietitian and Machinist 2Nd Shift [id number] NoteDate: 11/15/24 LOS: 0 days Room: [place] [address] Brief Nutrition Education Note Reason for RD [...] at ), was worked up at OSH ([facility]) for RUQ abd pain and found to [...] outpatient education - Diabetes Self Management Program: [id number] in discharge orders. Patient will receive a call from certified adapted physical educator regarding scheduling Tania Nowak RD, LD, [facility] Personal Pager: [phone] On-Call Nutrition Pager: [phone] Time spent on patient care: 15 minutes Dietitian vs DietaryTech: Dietitian and Dietary TechThe Paradise Home Propertiesfood.[facility] System 11-15-2024 Consult note* Cesar Bueno DO - 11/15/2024 8:53 AM ESTAssociated Order(s): IP PSYCHIATRIC ADULT CONSULT Images from the original note were not included. PSYCHIATRY CONSULT LIAISON NOTE PROVIDER REQUESTING CONSULT: Adelfo Nice MD Inpatient Floor: [facility] 08 - [id number] Reason for Consult: hx Bipolar, reported medications and chart meds discrepancy (medication reconciliation) IDENTIFICATION: BERNADETTE Faust is a 29 year old White female HISTORY OF PRESENT ILLNESS Hospital Course: A 29-year-old at postoperative day 9 following an emergent C- section at 34 weeks for placental abruption and preeclampsia, presents with acutely worsening right upper quadrant pain after transfer from [facility]. Chart reviewed, and from a medical perspective, [...] The patient follows with a psychiatrist in [place], [place], who prescribes lamotrigine 200 mg daily [...] [place] currently have a psychiatric provider in [place], but has been attempting to establish care there. Her prescriptions are written and filled in [place]. She denies suicidal ideation, homicidal ideation, or auditory/visual hallucinations. She reports nodifficulties with sleep, appetite, or medication side effects. PRN's Received: - none for agitation or anxiety PER CHART REVIEW [facility] 11/06/24 - 11/09/24 The patient was hospitalized at [facility] from November 06 to November 09, 2024, [...] (Ir) 5 Mg Tablet 28.00 7 Dec [id number] Banda ([id number]) 0 PSYCHIATRIC REVIEW OF SYSTEMS: As per HPI Suicide Assessment Tool C-SSRS [place]-Suicide Severity Rating Scale Able to complete [place]-Suicide Severity Rating Scale with Patient?: Yes 1) Wish to be : No 2) Current suicidal thoughts: No 6) C-SSRS Suicidal Behavior: No Risk of Suicide: Negative Screen Did patient score moderate or high risk on the C-SSRS?: No SAFE-T PSYCHIATRIC HISTORY: Psychiatric diagnoses: bipolar disorder (self reported), ADHD, anxiety Outpatient psychiatrist/counselor: Leonila Junior, [place] (self reported) Inpatient psychiatric admissions (when/why?): none [...] 1 current occupational status: employed 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 She follows with Dr. Morales in [place], [place], though it is unclear why her [...] will follow up with Dr. Morales in [place], and will schedule the appointment independently. Recommendations were communicated to Dr. Muhammad and Dr. Rubin via secure chat. We will sign off, please page with any new concerns. The patient was seen and discussed with attending psychiatrist. Iveth Hall MD River Guide, PGY-2 If patient is admitted to the hospital and psychiatric consultation is necessary, please place order in [facility] for IP Psychiatry Adult Consult and page: 8:00 AM - 5:00 PM: [phone] 5:00 PM - 8:00 AM, weekends or holidays: [phone] Teaching Physician Note During my evaluation of [...] multidisciplinary discussions. Cesar Bueno DO Attending Psychiatrist [employer] - Smartphone RFID Work Phone: [phone] 753-464901-17-2025 Consult note* Juany Muhammad MD - 11/15/2024 6:52 AM ESTAssociated Order(s): IP OB HIGH RISK CONSULT Images from the original note were not included. AIRPORT SKILLED MAINTENANCE SUPERVISOR CONSULT NOTE 11/15/24 6:53 AM PGY-4 S: [...] Encourage SCDs and ambulation Juany Muhammad MD DATE NIGHT SITTER PGY-4 Cosigned by Marco Stovall MD at [...] MD Maternal Medicine, Complex Family Planning Pager: [phone] [id number] Plan of care note* Care Plan Note [...] Progressing Plan for monitoring in High risk. [id number] Consult note* Dana Hall DO - 11/15/2024 2:12 AM EST Associated Order(s): IP EMERGENCY GENERAL SURGERY CONSULT Images from the original note were not included. [facility] Department of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 Darling Keith RN)2100 (Given - Provider: Bozena Zamora RN) 0921 (Given - Provider: Darling Keith, BENTLEY) enoxaparin (LOVENOX) 40 MG/0.4ML injection 40 mg 40 mg, Subcutaneous, DAILY, First dose on Mon11/16/24 at 0900, Until Discontinued 0933 (Given - Provider: Jeff Renteria, BENTLEY) 1009 (Given - Provider: Darling Keith, BENTLEY) 0921 (Given - Provider: Darling Keith RN) ibuprofen (MOTRIN) tablet 600 mg, Oral, EVERY 6 HOURS, First dose on Mon11/15/24 at 0400, Until Discontinued 0414 (Given - Provider: La Patel RN)1016 (Given - Provider: Jeff Renteria RN)1644 (Given - Provider: Jeanie Alvarenga RN)2205 (Given - Provider: Kalyani Mac RN) 0420 (Given - Provider: Kalyani Mac, RN)1020 (Given - Provider: Darling Keith RN)1650 (Given - Provider: Darling Keith RN)2248 (Given - Provider: Bozena Zamora RN) 0440 (Given - Provider: Bozena Zamora, BENTLEY)0952 (Given - Provider: Darling Keith, BENTLEY)1632 (Given - Provider: Darling Keith RN) insulin glargine (LANTUS SOLOSTAR/BASAGLAR KWIKPEN) 100 UNIT/ML PEN injection 14 Units, Subcutaneous, AT BEDTIME, First dose on Mon11/15/24 at 2200, Until Discontinued 2202 (Given - Provider: Kalyani Mac RN) 2248 [...] dose on Mon11/15/24 at 0100, Until Discontinued 0933 (Given - Provider: Jeff Renteria RN)210 (Given - Provider: Kalyani Mac RN) 1010 (Given - Provider: Darling Keith RN)2100 (Given - Provider: Bozena Zamora RN) 0920 (Given - Provider: Darling Keith RN) lamoTRIgine (LaMICtal) tablet 25 mg, Oral, DAILY, First dose on Mon11/15/24 at 1630, Until Discontinued 0932 (Given - Provider: Jeff Renteria RN) 1009 (Given - Provider: Darling Keith RN) 0921 (Given - Provider: Darling Keith RN) lidocaine (LIDODERM) 4 % patch 2 Patch, Transdermal, EVERY 24 HOURS, First dose on Mon11/16/24 at 0900, Until Discontinued 0933 (Patch Applied - Provider: Jeff Renteria RN)213 (Patch Removal - Provider: Kalyani Mac RN) [...] Jeff Renteria RN)1643 (Given - Provider: Jeanie Colette, RN) 1009 (Given - Provider: Darling Ketih RN)1650 (Given - Provider: Darling Keith RN) 0921 (Given - Provider: Darling Keith RN)1718 (Given - Provider: Darling Keith RN) NIFEdipine (ADALAT CC) 24 hour tablet (CANCELED) 30 mg, Oral, 2 times daily, First dose (after last modification) on Mon11/15/24 at 0200, Until Discontinued 0932 (Given - Provider: Jeff Renteria RN) NIFEdipine (ADALAT CC) 24 hour tablet 30 mg, Oral, EVERY 12 HOURS, First dose (after last modification) on Mon11/17/24 at 2100, Until Discontinued 210 (Given - Provider: Kalyani Mac RN) 1009 (Given - Provider: Darling Keith RN)2100 (Given - Provider: Bozena Zamora, BENTLEY) 0921 (Given - Provider: Darling Keith RN) ondansetron (ZOFRAN) 4 MG/2ML injection (CANCELED) 4 mg, Intravenous Push, EVERY 6 HOURS, First dose on Mon11/15/24 at 0100, Until Discontinued 0300 (Hold/Not Given - Provider: La Patel RN - Reason: Patient refused)0933 (Given - Provider: Jeff Renteria RN)1526 (Given - Provider: Jeff Renteria RN)2108 (Given - Provider: Kalyani Mac RN) 0258 (Given - Provider: Gisela Collado, RN)1009 (Given - Provider: Darling Keith RN)1512 (Given - Provider: Darling Keith RN)2100 (Given - Provider: Bozena Zamora, RN) 0304 (Given - Provider: Gisela Collado, RN)0900 (Due - Provider: Ozzy Luna, PharmD) piperacillin-tazobacta m in D5W (ZOSYN) 3,375 mg [...] on Mon11/15/24 at 1736, Until Mon11/19/24 at 205, Apply to catheter site with dressing change [...] on Mon11/19/24 at 0921, Until Mon11/19/24 at 2050, nausea and/or headache 0952 (Given - Provid [...] er: Jj Garber - Comment: lot # [id number]) iohexol (OMNIPAQUE) 350 MG/ML injection (COMPLETED) 100 [...] BE BASED ON THE PRIMARY CLINICAL RECORDS. [facility]. provides no warranty or guarantee of the accuracy or completeness of information in this document.
--- NOTE | 2025-09-02 04:41 | EDS_ITS ---
HPI History of Present Illness Chief Complaint: Abd Pain Informant: patient and spouse/S.O. Narrative Narrative: Patient is a 30-year-old female with past medical history of multiple sclerosis insulin-dependent diabetes and ADD. She also has previous history of acute appendicitis requiring acute appendectomy. Following this she had intestinal perforation and abscess formation requiring drainage. She states that she has had abdominal discomfort and bloating for the past 2 days or so. With this she has had excessive amounts of belching. She states that she typically uses the bathroom having bowel movements 2-3 times a day but has not had one now for 3 d ays. She denies any fevers or chills or trauma but with the persistent abdominal symptoms and her previous abdominal complications she is concern for blockage and/or infection and therefore comes in for evaluation [facility] Medical History Breast cancer ADD (attention deficit disorder) Multiple sclerosis Asthma Stroke Migraines Home Medications ?Medication ?Instructions ?Recorded ?Last Taken ?Type dextroamphetamine-amphetamine ER 20 mg PO BID 02/10/22 Unknown History 20 mg 24hr capsule,extend release fremanezumab-vfrm 225 mg/1.5 mL 675 mg subcut [id number] 02/10/22 Unknown History subcutaneous auto-injector (Ajovy) Held on 09/02/25. Instructions: NEEDS TO F/U WITH NEUROLOGIST labetalol 200 mg tablet 200 mg PO BID 30 days #60 ta bs 11/09/24 Unknown Rx nifedipine 30 mg tablet,extended 30 mg PO BID #60 tabs 11/09/24 Unknown Rx release 24 hr (Procardia XL) lamotrigine 25 mg tablet (Lamictal) 25 mg PO DAILY 07/24 Unknown History metformin 500 mg tablet,extended 1,000 mg PO BID 03/07 Unknown History release 24 hr ferrous sulfate 325 mg (65 mg 325 mg PO QDAY #90 tabs 03/08/25 Unknown Rx iron) tablet,delayed release epinephrine 0.3 mg/0.3 mL 0.3 mg (0.3 mL) IM ONCE #2 e a 03/28/25 Unknown Rx injection, auto-injector (EpiPen 2-Heber) copper 380 square mm intrauterine 1 device intrauterin e ONCE 03/31/25 Unknown History device (ParaGard T 380A) insulin glargine 100 unit/mL (3 16 unit subcut QPM 12/24 Unknown History mL) subcutaneous pen (Basaglar KwikPen U-100 Insulin) insulin lispro 100 unit/mL 1 sliding scale dose subcut TID 03/31/25 Unknown History subcutaneous pen blood-glucose,fisher purse seine,cont #1 ea 05/05/25 Unknown Rx (Dexcom G7 Lining Brusher) buspirone 5 mg tablet 5 mg PO BID 06/13/25 Unknown History benzonatate 200 mg capsule 200 mg PO TID PRN cough #30 caps 06/20/25 Unknown Rx blood-glucose sensor (Dexcom G7 #12 ea 06/20/25 Unknow n Rx Sensor device) albuterol sulfate 90 mcg/actuation 1 - 2 puff inhalati on Q4H PRN PRN 07/24/25 Unknown Rx aerosol inhaler for wheezing #8.5 ea dulaglutide 0.75 mg/0.5 mL 0.75 mg (0.5 mL) subcut QWE EK #2 mL 08/21/25 Unknown Rx subcutaneous pen injector (Trulicity) budesonide-formoterol HFA 80 2 puff inhalation BID #10 .2 grams 08/27/25 Unknown Rx mcg-4.5 mcg/actuation aerosol inhaler (Symbicort) Allergy/AdvReac Type Severity Reaction Status Date / Time onabotulinumtoxinA (From Allergy Intermediate Itching Verified 09/02/25 03:22 Botox) adhesive tape (tape) Allergy Rash Verified 09/02/25 03:22 Latex, Natural Rubber Allergy Other Verified 09/02/25 03:22 verapamil Allergy Anaphylaxis Verified 09/02/25 03:22 Family History Father Heart disease Surgical History H/O knee surgery H/O dilation and curettage History of appendectomy History of lumpectomy History of tonsillectomy and adenoidectomy Social History number of children: 2 current occupational status: employed 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 [employer] Smoking Status: Never smoker alcohol intake: current alcohol intake frequency: holidays/special occasions only substance use type: does not use caffeine: Yes what type of physical activity do you participate in: walking frequency: 3-4 times per week seatbelt use: always do you feel safe at home: Yes additional social history: [employer] 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 [employer] linda [employer] ROS ED Constitutional Constitutional ED: Denies chills or fever(s) ENT ENT ED: Denies sore throat Cardiovascular Cardiovascular: Denies chest pain Respiratory/Chest Respiratory/Chest: Denies cough or dyspnea Gastrointestinal Gastrointestinal: Reports abdominal pain and constipation; Denies diarrhea, nausea or vomiting Genitourinary Genitourinary ED: Denies dysuria Musculoskeletal Musculoskeletal: Denies back pain or myalgias Integumentary Denies rash Neurologic Neurologic: Denies headache(s) Hematologic/Lymphatic Hematologic/Lymphatic: Denies easy bleeding or easy bruising EXAM Physical Exam Const Vital Signs: 09/02/25 03:25 09/02/25 05:16 Temperature 97.9 F Temperature Source Oral Pulse Rate 77 67 Respiratory Rate 18 18 Blood Pressure 136/80 H 138/74 H Blood Pressure Mean 98 95 Pulse Ox 98 96 Oxygen Delivery Method Room Air Room Air Positive well nourished and well developed General Appearance ED: well developed; Negative for pallor HEENT Reports moist mucous membranes HEENT Narrative: Normocephalic atraumatic No tongue or lip swelling no oral lesions no airway edema or compromise; no secondary findings in the posterior pharynx to suggest infection Eyes PERRL and EOMs intact bilaterally General Eye ED: Negative for scleral icterus Neck supple Resp normal respiratory effort and clear to auscultation bilaterally Cardio regular rate and regular rhythm Rate: other Other Details: Heart is regular rate and rhythm without murmurs rubs or gallop Radial and carotid pulses are equal and symmetric GI non-distended and no masses GI Narrative: Abdomen is soft and nondistended with hypoactive bowel sounds There is pain with palpation along the right upper quadrant/lateral abdominal wall. There is mild voluntary guarding at this site. No obvious hernia palpat ed. No peritoneal sign. No pulsatile mass or rigidity. Auscultation: hypoactive bowel sounds Palpation: soft Back/Spine no CVA tenderness Extremity normal to inspection Neuro oriented x3, CN's II-XII intact bilaterally and no sensory deficits noted Sensorium / Orientation: alert Motor Exam: strength 5/5 throughout Psych mental status grossly normal Skin no rashes or lesions noted and no wounds Skin Narrative: No overlying soft tissue skin changes to suggest trauma or infection General Skin Exam: Negative for jaundice or pallor MDM MDM MDM Narrative Medical decision making narrative: Patient arrived to the ER with stable vitals. She reported constipation over the past few days which is abnormal for her and now increasing abdominal pain greatest in the right upper quadrant. Differential diagnosis is for constipation versus colitis/diverticulitis. Patient could also have pancreatitis or biliary colic or complication. As she has a known history of intestinal perforation and abscess there is also concern for small bowel obstruction or return of internal infection. Therefore basic labs were obtained with urine sample and a CT scan with IV contrast. Labs revealed no clinically significant findings. She is not insulin-dependent diabetic and does have elevation to her glucose at 261 but anion gap and bicarb are normal going against DKA. Urine sample shows no findings of infection. CT scan confirms no intestinal obstruction or infectious process. On reevaluation she is resting comfortably and abdomen remains soft and nonsurgical. Therefore at this time I do not feel there is need for further workup or intervention in the ER and she is otherwise safe for discharge. History & Record Review Discussion w/independent historian: Patient and Significant other Lab Data Attestation: I reviewed the patient's lab results. Labs: Laboratory Results - last 24 hr 09/02/25 09/02/25 04:05 05:07 WBC 9.1 RBC 5.18 Hgb 12.9 Hct 39.9 MCV 77.0 L MCH 24.9 L MCHC 32.3 RDW Std Deviation 40.6 RDW Coeff of Betsey 14.6 Plt Count 260 MPV 8.9 Immature Gran % (Auto) 0.300 Neut % (Auto) 56.8 Lymph % (Auto) 35.8 Mason % (Auto) 5.9 Eos % (Auto) 1.0 Baso % (Auto) 0.2 Absolute Neuts (auto) 5.2 Absolute Lymphs (auto) 3.25 Nucleated RBC % 0 Sodium 135 Potassium 3.9 Chloride 100 Carbon Dioxide 23.7 Anion Gap 11 BUN 7 Creatinine 0.67 L Estim Creat Clear Calc 133.36 Est GFR (MDRD) Non-Af 119 BUN/Creatinine Ratio 10.2 Glucose 261 H Lactic Acid 1.5 Calcium 9.4 Total Bilirubin 0.27 Direct Bilirubin 0.10 AST 14 ALT 17 Alkaline Phosphatase 104 Total Protein 7.5 Albumin 4.3 Globulin 3.2 Lipase 21 Serum , Qual NEGATIVE Urine Color Straw Urine Clarity Clear Urine pH 6.0 Ur Specific [place] 1.010 Urine Protein 15 H Urine Glucose (UA) 1000 H Urine Ketones Negative Urine Occult Blood 50 H Urine Nitrite Negative Urine Bilirubin Negative Urine Urobilinogen Normal Ur Leukocyte Esterase Negative Urine RBC 0 SEEN Urine WBC 0-5 SEEN Ur Squamous Epith Cells 5-10 SEEN Ur Transition Epith Cell 0-5 SEEN Urine Bacteria 1+ Urine Mucus 0 SEEN Radiography Diagnostic Testing: Clinical Impression(s) from Imaging Studies Abdomen/Pelvis CT 09/02/25 03:42 IMPRESSION: Resolution of the pelviabdominal collections, peritoneal fat stranding a diffuse pelvi-abdominal wall edema. No acute pelvi-abdominal abnormalities, collections or free air. Reading Location: [place] [address] Discharge Plan Triage Chief Complaint: Abd Pain ED Provider: Vitaly Villa Dx/Rx/DC Orders Clinical Impression: Nonspecific abdominal pain, Constipation, Multiple sclerosis, Insulin dependent diabetes mellitus, ADD (attention deficit disorder) Instructions: Abdominal Pain, ED Constipation (Adult) Prescriptions: No Action Ajovy Autoinjector 225 mg/1.5 mL auto-injector 675 mg subcut [id number] Rx Instructions: administer as 3 consecutive 225 mg injections lamotrigine [Lamictal] 25 mg tablet 25 mg PO DAILY insulin glargine [Basaglar KwikPen U-100 Insulin] 100 unit/mL (3 mL) insulin pen 16 unit subcut QPM metformin 500 mg tablet extended release 24 hr 1,000 mg PO BID ferrous sulfate 325 mg (65 mg iron) tablet,delayed release (DR/EC) 325 mg PO QDAY Qty: 90 1RF insulin lispro 100 unit/mL insulin pen 1 sliding scale dose subcut TID ParaGard T 380A 380 square mm intrauterine device 1 device intrauterine ONCE Rx Instructions: as a single dose epinephrine [EpiPen 2-Heber] 0.3 mg/0.3 mL auto-injector 0.3 mg IM ONCE Qty: 2 2RF Rx Instructions: as a single dose; may repeat once (DME) Dexcom G7 Sensor Device See Rx Instructions .Route Qty: 12 2RF Rx Instructions: As directed benzonatate 200 mg capsule 200 mg PO TID PRN (Reason: cough) Qty: 30 0RF buspirone 5 mg tablet 5 mg PO BID dextroamphetamine-amphetamine 20 mg capsule,extended release 24hr 20 mg PO BID labetalol 200 mg Tablet 200 mg PO BID 30 Days Qty: 60 1RF nifedipine [Procardia XL] 30 mg tablet extended release 24hr 30 mg PO BID Qty: 60 2RF (DME) Dexcom G7 Lining Brusher Misc See Rx Instructions .Route Qty: 1 0RF Rx Instructions: As directed albuterol sulfate 90 mcg/actuation HFA aerosol inhaler 1 - 2 puff inhalation Q4H PRN PRN (Reason: for wheezing) Qty: 8.5 0RF Trulicity 0.75 mg/0.5 mL pen injector 0.75 mg subcut QWEEK Qty: 2 1RF Patient Comments: FRIDAYS budesonide-formoterol [Symbicort] 80-4.5 mcg/actuation HFA aerosol inhaler 2 puff inhalation BID Qty: 10.2 0RF Rx Instructions: rinse mouth after each use Primary Care Provider: Radha Pascual Referrals: Radha Pascual MD [Primary Care Provider, Internal Medicine] Activity Restrictions/Additional Instructions: Your blood work revealed no clinically significant lab abnormalities and your CT scan did not show any signs of intestinal abscess or perforation or bowel obstruction or a hernia. Please keep yourself well-hydrated and take MiraLAX daily to help with constipation. Return to the ER should you have any further concerns or worsening of symptoms Print Language: Mexican Disposition Disposition: Home, Self Care
[2025-09-02 04:42] LABS: AST(SGOT) 14 U/L (<=31); Alanine Aminotransfer ALT/SGPT 17 U/L (<=34); Albumin, Serum 4.3 g/dL (3.5-5.0); Alkaline Phosphatase 104 U/L (35-104); Anion Gap 11 (5-15); BUN 7 mg/dL (4-19); BUN/Creat Ratio 10.2 RATIO (10-20); Bilirubin, Direct 0.10 mg/dL (0.00-0.30); Calcium,Total 9.4 mg/dL (7.6-11.0); Carbon Dioxide 23.7 mmol/L (21.0-32.0); Chloride 100 mmol/L (98-108); Estimated Creatinine Clearance 133.36 ml/min (50-250); Globulin 3.2 g/dL (2.2-4.2); Glucose 261 mg/dL (70-99); Lipase 21 U/L (13-75); Potassium 3.9 mmol/L (3.3-5.1)
[2025-09-02 05:14] LABS: Mucous, Urine 0 SEEN /hpf (<or=2+); Red Blood Cells-Urine 0 SEEN /hpf (0-5)
[2025-09-02 05:16] VITALS: BP 138/74; PULSE 67; RESP 18; O2SAT 96
[2025-09-02 05:18] LABS: Color, Urine Straw (Yellow); Glucose, Dipstick 1000 mg/dl (Normal); Ketone-Dipstick Negative (Negative); Leukocyte Esterase-Dipstick Negative /ul (Negative); Nitrite-Dipstick Negative (Negative); Occult Blood-Urine 50 /ul (Negative); Protein-Dipstick 15 mg/dl (Negative); Specific Gravity, Urine 1.010 (1.002-1.030); Urine Bilirubin Dipstick Negative (Negative)
[2025-09-02 05:33] LABS: Squamous Epithelial Cells - UA 5-10 SEEN /hpf (5-10); Transitional Epithelial - Ur 0-5 SEEN /hpf (0-5)
[2025-09-02 05:43] VITALS: BP 138/74; PULSE 67; RESP 18; TEMP 36.6; O2SAT 96
== END 2025-09-02 05:45 | disposition home or self-care (01) ==
PROVIDERS: Emergency Provider Emergency Medicine; PCP Internal Medicine; Visit Provider Emergency Medicine
DX: R10.11 Right upper quadrant pain (principal); E11.9 Type 2 diabetes mellitus without complications; K59.00 Constipation, unspecified; F98.8 Other specified behavioral and emotional disorders with onset usually occurring in childhood and adolescence; G35.D Multiple sclerosis, unspecified; Z90.49 Acquired absence of other specified parts of digestive tract; J45.909 Unspecified asthma, uncomplicated
CPT/HCPCS: 74177; 80048; 80076; 81001; 83605; 83690; 84703; 85025; 96361; 96374; 96375; 99283; Q9967; A4216; J2405

== ENCOUNTER 2025-09-09 18:52 | Emergency (ER) | payer MEDICAID, SELFPAY ==
[2025-09-09 18:53] VITALS: BP 144/100; PULSE 84; RESP 16; TEMP 36.6; O2SAT 100; BMI 33.5
--- OUTSIDE RECORDS SUMMARY | 2025-09-09 22:14 | XMS RPT_ITS | CCD ---
Author Organization [facility]ini[facility] Care Team Providers Care Application Manager Name Role Phone PROVIDER, UNKNOWN Unavailable Unavailable Fred[place], Nishant Unavailable Unavailable Khadijah, Nishant Unavailable Unavailable Bledsoe, Tony Unavailable Unavailable [place], Nishant Unavailable Unavailable Khadijah, Nishant Unavailable Unavailable Marlo Orlando Unavailable Unavailable Hkadijah, Nishant Unavailable Unavailable Fred[place], Nishant Unavailable Unavailable PROVIDER, UNKNOWN Unavailable Unavailable Fred[place], Nishant Unavailable Unavailable Fred[place], Nishant Unavailable Unavailable Zhao Taylor Unavailable Unavailable [place], Nishant Unavailable Unavailable Fred[place], Nishant Unavailable Unavailable Emmanuel, Edith Unavailable Unavailable Fredonia, Nishant Unavailable Unavailable Khadijah, Nishant Unavailable Unavailable PROVIDER, UNKNOWN Unavailable Unavailable Khadijah, Nishant Unavailable Unavailable Fred[place], Nishant Unavailable Unavailable Khadijah, Nishant Unavailable Unavailable Khadijah, Nishant Unavailable Unavailable KRISTIN, YUE Unavailable Unavailable BUSH, SHYANN Unavailable Unavailable Becky Sotelo Unavailable Unavailable Becky Sotelo Unavailable Unavailable JORDY CADE Referring Unavailable JORDY CADE Referring Unavailable Dr. Becky Sotelo Primary Care Provider [phone] Dr. Becky Sotelo Referring Provider Dr. Elaine Jones Attending Provider [phone] Becky Sotelo MD Primary Care Provider PROVIDER, [...] NICE Admitting Unavailable ADELFO NICE Attending Unavailable [phone], IP EGS TEAM Consulting Unavailabl e CONSULT, [...] MALIK, Dr. Brown Primary Care Provider [phone] Ashleigh MALIK, Dr. Brown Referring Provider Karen MALIK, Dr. Henry Attending Provider [phone] Dr. Elaine Jones MD Referring Provider Dr. Jorge Samuels DO Attending Provider Dr. Jorge Samuels DO Emergency Provider Dr. Radha Pascual MD Primary Care Provider [phone] Humberto Yao Attending Provider [phone] Dr. Radha Pascual MD Referring Provider Sb CATHODE WASHER-C, [place] Attending Provider Sb CATHODE WASHER-C, [place] Referring Provider Dr. Radha Pascual MD Attending Provider Dr. Radha Pascual MD Primary Care Physician [phone] Dr. Radha Pascual MD Referring Provider Sb CATHODE WASHER-C, [place] Attending Physician [phone] Samara MALIK, Dr. Garcia Attending Physician [phone] Karen MALIK, Dr. Henry Attending Physician Dr. Elaine Jones MD Referring Provider Humberto Yao Attending Physician [phone] GOGO CASSIDY Attending Physician GOGO CASSIDY Referring Provider [phone] Elaine Jones Admitting Unavailable Elderbrock, Becky Primary Care Unavailable Elaine Jones Referring Unavailable Elaine Jones Consulting Unavailable Elaine Jones Attending Unavailable Elaine Jones Referring Unavailable Dre Dillon Attending Unavailable Elderbrock, Becky Primary Care Unavailable Genesis Mcintosh Attending Unavailable Elderbrock, Becky Referring Unavailable Elderbrock, Becky Primary Care Unavailable Nando Mathwes Attending Unavailable [place], Radha Primary Care Unavailable La Basurto Attending Unavailable SbLa Referring Unavailable Samara, Radha Primary Care Unavailable Jorge Samuels Attending Unavailable Samraa, Radha Primary Care Unavailable Vitaly Villa Attending Unavailable Samara, Radha Referring Unavailable [place], Radha Primary Care Unavailable La Basurto Attending Unavailable Elderbrock, Becky Referring Unavailable Elderbrock, Becky Primary Care Unavailable Elaine Jones Attending Unavailable Elderbrock, Becky Referring Unavailable Elderbrock, Becky Primary Care Unavailable Elaine Jones Attending Unavailable JuaquinanthonyElaine Attending Unavailable [place], Radha Referring Unavailable Samara, Radha Primary Care Unavailable [place], Radha Referring Unavailable [place], Radha Primary Care Unavailable Humberto Yao Attending Unavailable Samara, Radha Primary Care Unavailable La Basurto Attending Unavailable La Basurto Referring Unavailable JuaquinanthonyElaine Referring Unavailable Elderbrock, Becky Primary Care Unavailable Elaine Jones Attending Unavailable Sheila Lamar Attending Unavailable Elderbrock, Becky Primary Care Unavailable Samara, Radha Attending Unavailable Samara, Radha Primary Care Unavailable Elaine Jones Attending Unavailable Samara, Radha Primary Care Unavailable Elaine Jones Referring Unavailable Samara, Radha Referring Unavailable [place], Radha Primary Care Unavailable La Basurto Attending Unavailable Elderbrock, Becky Primary Care Unavailable Elaine Jones Referring Unavailable Elaine Jones Admitting Unavailable Elaine Jones Attending Unavailable Samara, Radha Primary Care Unavailable ANGELA SALDAÑA Attending Unavailable ANGELA SALDAÑA Referring Unavailable Humberto Yao Attending Unavailable [place], Radha Primary Care Unavailable Becky Sotelo Referring Unavailable Humberto Yao Attending Unavailable [place], Radha Referring Unavailable Samara, Radha Primary Care Unavailable [place], Radha Primary Care Unavailable Becky Sotelo Referring Unavailable Elaine Jones Attending Unavailable Kenyatta Chin Attending Unavailable Allergies Allergy Classification Reported Allergen(s) Allergy Type Date of Onset Reaction(s) Facility (20 sources) Latex; Translations: [LATEX] Propensity to adverse reactions (disorder) 7 Unknown, Other, Rash [facility] Repository (20 sources) Verapamil; Translations: [VERAPAMIL] Drug Allergy 8 Anaphylaxis, Anaphylactic Shock [facility] Repository (2 sources) OTHER; Translations: [OTHER] Propensity to adverse reactions (disorder) 6 [facility] Repository (1 source) Adhesive Tape Allergy to substance 2 [facility] Work Phone: (14 sources) Botulinum Toxin Type A; Translations: [ONABOTULINUMTO XINA] Drug Allergy 0 Other: See Comments [facility] Work Phone: (12 sources) natural latex rubber; Translations: [Latex, Natural Rubber] Allergy to substance 2 Other [facility] Comment on above: SWELLING, REDNESS, I TCHING (2 sources) TAPE [Other] Propensity to adverse reactions 6 [facility] (20 sources) BOTULINUM TOXIN TYPE A; Translations: [BOTULINUM TOXIN TYPE A] Propensity to adverse reactions to drug (disorder) 2 Itching [facility] Repository (20 sources) BANDAGE TAPE; Translations: [BANDAGE TAPE] Propensity to adverse reactions (disorder) 7 Rash [facility] Repository (19 sources) Botulinum Toxin Type A Drug Allergy 0 Itching, Rash, Swelling [facility] (11 sources) Adhesive Tape; Translations: [adhesive tape] Allergy to substance 5 [facility] (1 source) Botulinum Toxin Type A Drug Allergy 5 [facility] Repository Medications Current Medications Medication Drug Class(es) [...] every 4 hours as needed. 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) 1 Package four times [...] .Route March 07, 2025 12:00am As directed Blood-Glucose,Fruit And Vegetable Inspector,Cont (Dexcom G7 Fruit And Vegetable Inspector) misc (16 sources) Start: 05-05-2025 Blood-Glucose,Fruit And Vegetable Inspector,Cont (Dexcom G7 Fruit And Vegetable Inspector) misc Active 0 .Route 1 0 May 05, 2025 3:42pm As directed Start: 03-07-2025 End: 05-05-2025 Blood-Glucose,Fruit And Vegetable Inspector,Cont (Dexcom G7 Fruit And Vegetable Inspector) misc Discontinued 0 .Route 1 March 07, 2025 12:00am May 05, 2025 3:42pm As directed Start: 03-07-2025 Blood-Glucose, Fruit And Vegetable Inspector,Cont (Dexcom G7 Fruit And Vegetable Inspector) misc Active 0 .Route 1 0 March 07, 2025 12:00am As directed Start: 03-07-2025 Blood-Glucose, Fruit And Vegetable Inspector,Cont (Dexcom G7 Fruit And Vegetable Inspector) misc Active 0 .Route 1 March 07, [...] on 11/16/24 at 0802, Until 11/19/24 at 205, Muscle spasms Start: 10-07-2021 take 1 tablet [...] 3 11/18/2024 8:57 AM EST 11/17/2024 Active [id number] 0.3 ml EPINEPHrine 1 mg/ml auto-injector (11 [...] sources) Nonsteroidal Anti-inflammatory Drug Start: 11-15-19 End: 01-21-20 25 take 1 tablet by mouth every [...] AQ) 55 mcg nasal inhaler Use 1 Cos Cob in the nose as needed. 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) use of aspirin] Onset: 8 Episodic [...] Diarrhea; Translations: [Diarrhea, unspecified] 04-23-2025 Episodic Other injuries and conditions due to external causes (11 sources) Finding of urine substance level; Translations: [Elevated urine levels of drugs, medicaments and biological substances] 11-15-2024 Episodic Other nervous system disorders (2 sources) Other chronic pain; Translations: [Other chronic pain] Onset: 8 Chronic Other nutritional; endocrine; and metabolic disorders (10 sources) H/O: diabetes mellitus; Translations: [Personal history of other endocrine, nutritional and metabolic disease] 11-22-2024 Episodic Other conditions (10 sources) bradycardia 01-08-2025 Episodic Other screening for suspected conditions (not [...] (2 sources) History of delivery of macrosomal infant; Translations: [Supervision of with other poor reproductive [...] 8 Episodic Other gastrointestinal disorders (1 source) Diarrhea, [...] finger(s), init encntr] Onset: 8 Episodic Other injuries and conditions due to external causes (2 sources) Elevated urine levels of drugs, medicaments and biological substances; Translations: [Elevated urine levels of drugs, medicaments and biological substances] Onset: 5 Episodic Other lower respiratory disease (2 sources) [...] heart dis and oth dis of the [facility] sys] Onset: 8 Episodic Residual codes; unclassified [...] Test Name Value Interpretation Reference Range Facility Abdomen/Pelvis W IV Cont ONL Yon 09-02-2025 Abdomen/Pelvis W IV Cont ONLY Normal [facility] Basic Metabolic Profile (BMP )on 09-02-2025 BUN/CRE 10.2 RATIO Normal 10-20 [facility] Comment on above: Performed By: #### L 501.2450, L500.3400, L503.6005, L500.2500, L100.0100 ####[facility] [address] [place], [place], [id number] Calcium [Mass/Vol] 9.4 mg/dL Normal 7.6-11.0 [facility] Comment on above: Performed By: #### L 501.2450, L500.3400, L503.6005, L500.2500, L100.0100 ####[facility] [address] [place], [address] Chloride [Moles/Vol] 100 mmol/L Normal 98-108 [facility] Comment on above: Performed By: #### L 501.2450, L500.3400, L503.6005, L500.2500, L100.0100 ####[facility] [address] [place], [address] CO2 [Moles/Vol] 23.7 mmol/L Normal 21.0-32.0 [facility] Comment on above: Performed By: #### L 501.2450, L500.3400, L503.6005, L500.2500, L100.0100 ####[facility] [address] [place], [address] Creatinine [Mass/Vol] 0.67 mg/dL Low 0.70-1.20 [facility] Comment on above: Performed By: #### L 501.2450, L500.3400, L503.6005, L500.2500, L100.0100 ####[facility] [address] [place], [address] ECRCL 133.36 ml/min Normal 50-250 [facility] Comment on above: Performed By: #### L 501.2450, L500.3400, L503.6005, L500.2500, L100.0100 ####[facility] [address] [place], [address] GAP 11 Normal 5-15 [facility] Comment on above: Performed By: #### L 501.2450, L500.3400, L503.6005, L500.2500, L100.0100 ####[facility] [address] [place], [address] GFR/1.73 sq M.predicted among non-blacks MDRD (S/P/Bld) [Vol rate/Area] 119 mL/min/{1.73_m2} Normal >60 [facility] Comment on above: Result Comment: mL/m in/1.73m2 CKD-EPI Creatinine Equation (2020) Performed By: #### L 501.2450, L500.3400, L503.6005, L500.2500, L100.0100 ####[facility] [address] [place], [address] Glucose [Mass/Vol] 261 mg/dL High 70-99 [facility] Comment on above: Performed By: #### L 501.2450, L500.3400, L503.6005, L500.2500, L100.0100 ####[facility] [address] [place], [address] Potassium [Moles/Vol] 3.9 mmol/L Normal 3.3-5.1 [facility] Comment on above: Performed By: #### L 501.2450, L500.3400, L503.6005, L500.2500, L100.0100 ####[facility] [address] [place], [address] Sodium [Moles/Vol] 135 mmol/L Normal 133-145 [facility] Comment on above: Performed By: #### L 501.2450, L500.3400, L503.6005, L500.2500, L100.0100 ####[facility] [address] [place], [address] Urea nitrogen [Mass/Vol] 7 mg/dL Normal 4-19 [facility] Comment on above: Performed By: #### L 501.2450, L500.3400, L503.6005, L500.2500, L100.0100 ####[facility] [address] [place], [address] CBC W/Diff, Automatedon 11-0 Absolute Lymph 3.25 X10 3/uL Normal 0.83-4.51 [facility] Comment on above: Performed By: #### L 501.2450, L500.3400, L503.6005, L500.2500, L100.0100 ####[facility] [address] [place], [address] Absolute Neut 5.2 X10 3/uL Normal 2.0-7.7 [facility] Comment on above: Performed By: #### L 501.2450, L500.3400, L503.6005, L500.2500, L100.0100 ####[facility] [address] [place], [address] Basophils/100 WBC (Bld) 0.2 % Normal 0-1 [facility] Comment on above: Performed By: #### L 501.2450, L500.3400, L503.6005, L500.2500, L100.0100 ####[facility] [address] [place], [address] Eosinophils/100 WBC (Bld) 1.0 % Normal 0-5 [facility] Comment on above: Performed By: #### L 501.2450, L500.3400, L503.6005, L500.2500, L100.0100 ####[facility] [address] [place], [address] Erythrocyte distribution width (RBC) [Ratio] 14.6 % Normal 11.6-14.6 [facility] Comment on above: Performed By: #### L 501.2450, L500.3400, L503.6005, L500.2500, L100.0100 ####[facility] [address] [place], [address] Hematocrit (Bld) [Volume fraction] 39.9 % Normal 37-47 [facility] Comment on above: Performed By: #### L 501.2450, L500.3400, L503.6005, L500.2500, L100.0100 ####[facility] [address] [place], [address] Hemoglobin (Bld) [Mass/Vol] 12.9 g/dL Normal 12.0-15.0 [facility] Comment on above: Performed By: #### L 501.2450, L500.3400, L503.6005, L500.2500, L100.0100 ####[facility] [address] [place], [address] IG% 0.300 Normal 0.0-0.9 [facility] Comment on above: Result Comment: IG% - Immature Granulocytes (promyelocytes, myelocytes andmetamyelocytes) > 1% indicates that a LEFT SHIFT is Present. Performed By: #### L 501.2450, L500.3400, L503.6005, L500.2500, L100.0100 ####[facility] [address] [place], [address] Lymphocytes/100 WBC (Bld) 35.8 % Normal 19-41 [facility] Comment on above: Performed By: #### L 501.2450, L500.3400, L503.6005, L500.2500, L100.0100 ####[facility] [address] [place], [address] MCH (RBC) [Entitic mass] 24.9 pg Low 27.0-32.0 [facility] Comment on above: Performed By: #### L 501.2450, L500.3400, L503.6005, L500.2500, L100.0100 ####[facility] [address] [place], [address] MCHC (RBC) [Mass/Vol] 32.3 g/dL Normal 32-36 [facility] Comment on above: Performed By: #### L 501.2450, L500.3400, L503.6005, L500.2500, L100.0100 ####[facility] [address] [place], [address] MCV (RBC) [Entitic vol] 77.0 fL Low 81-99 [facility] Comment on above: Performed By: #### L 501.2450, L500.3400, L503.6005, L500.2500, L100.0100 ####[facility] [address] [place], [address] Monocytes/100 WBC (Bld) 5.9 % Normal 0-10 [facility] Comment on above: Performed By: #### L 501.2450, L500.3400, L503.6005, L500.2500, L100.0100 ####[facility] [address] [place], [address] Neutrophils/100 WBC (Bld) 56.8 % Normal 47-70 [facility] Comment on above: Performed By: #### L 501.2450, L500.3400, L503.6005, L500.2500, L100.0100 ####[facility] [address] [place], [address] Nucleated RBC (Bld) [#/Vol] 0 10*3/uL Normal 0-5 [facility] Comment on above: Performed By: #### L 501.2450, L500.3400, L503.6005, L500.2500, L100.0100 ####[facility] [address] [place], [address] Platelet mean volume (Bld) [Entitic vol] 8.9 fL Normal 6.2-12.0 [facility] Comment on above: Performed By: #### L 501.2450, L500.3400, L503.6005, L500.2500, L100.0100 ####[facility] [address] [place], [address] Platelets (Bld) [#/Vol] 260 10*3/uL Normal 150-450 [facility] Comment on above: Performed By: #### L 501.2450, L500.3400, L503.6005, L500.2500, L100.0100 ####[facility] [address] [place], [address] RBC (Bld) [#/Vol] 5.18 10*6/uL Normal 4.2-5.4 [facility] Comment on above: Performed By: #### L 501.2450, L500.3400, L503.6005, L500.2500, L100.0100 ####[facility] [address] [place], [address] RDW SD 40.6 fl Normal 35.1-43.9 [facility] Comment on above: Performed By: #### L 501.2450, L500.3400, L503.6005, L500.2500, L100.0100 ####[facility] [address] [place], [address] WBC (Bld) [#/Vol] 9.1 10*3/uL Normal 4.4-11.0 [facility] Comment on above: Performed By: #### L 501.2450, L500.3400, L503.6005, L500.2500, L100.0100 ####[facility] [address] [place], [address] Emergency Department Summary on 09-02-2025 Emergency Department Summary Normal [facility] Lactic Acidon 09-02-2025 Lactate [Moles/Vol] 1.5 mmol/L Normal 0.0-2.0 [facility] Comment on above: Order Comment: Y Performed By: #### L 501.2450, L500.3400, L503.6005, L500.2500, L100.0100 ####[facility] [address] [place], [address] Lipaseon 09-02-2025 Lipase [Catalytic activity/Vol] 21 U/L Normal 13-75 [facility] Comment on above: Result Comment: Alba cano note:LIPASE revised reference range effective 23.New Lipase methodology. Expected to produce lower valuesthan the previous assay method.NEW Reference Range: 13 - 75 U/L Performed By: #### L 501.2450, L500.3400, L503.6005, L500.2500, L100.0100 ####[facility] [address] [place], [address] Liver Profileon 09-02-2025 Albumin [Mass/Vol] 4.3 g/dL Normal 3.5-5.0 [facility] Comment on above: Performed By: #### L 501.2450, L500.3400, L503.6005, L500.2500, L100.0100 ####[facility] [address] [place], [address] ALK PHOS 104 U/L Normal 35-104 [facility] Comment on above: Performed By: #### L 501.2450, L500.3400, L503.6005, L500.2500, L100.0100 ####[facility] [address] [place], [address] ALT [Catalytic activity/Vol] 17 U/L Normal <=34 [facility] Comment on above: Performed By: #### L 501.2450, L500.3400, L503.6005, L500.2500, L100.0100 ####[facility] [address] [place], [address] AST [Catalytic activity/Vol] 14 U/L Normal <=31 [facility] Comment on above: Performed By: #### L 501.2450, L500.3400, L503.6005, L500.2500, L100.0100 ####[facility] [address] [place], [address] Bilirubin [Mass/Vol] 0.27 mg/dL Normal 0.00-1.30 [facility] Comment on above: Performed By: #### L 501.2450, L500.3400, L503.6005, L500.2500, L100.0100 ####[facility] [address] [place], [address] Bilirubin.direct [Mass/Vol] 0.10 mg/dL Normal 0.00-0.30 [facility] Comment on above: Performed By: #### L 501.2450, L500.3400, L503.6005, L500.2500, L100.0100 ####[facility] [address] [place], [address] Globulin (S) [Mass/Vol] 3.2 g/dL Normal 2.2-4.2 [facility] Comment on above: Performed By: #### L 501.2450, L500.3400, L503.6005, L500.2500, L100.0100 ####[facility] [address] [place], [address] T PROT 7.5 g/dL Normal 5.9-8.4 [facility] Comment on above: Performed By: #### L 501.2450, L500.3400, L503.6005, L500.2500, L100.0100 ####[facility] [address] [place], [address] ,Serum,hCG Quali.on 09-02-2025 HCG, SERUM QUAL Negative Normal [facility] Comment on above: Performed By: #### L 700.6800 ####[facility] [address] [place], [address] Urinalysis, Completeon 09-02 BACTERIA 1+ /hpf Normal None Seen [facility] Comment on above: Order Comment: CLEAN CATCH Performed By: #### L 400.0001 ####[facility] [address] [place], [address] EPI,SQUAMOUS 5-10 SEEN Normal 5-10 [facility] Comment on above: Order Comment: CLEAN CATCH Performed By: #### L 400.0001 ####[facility] [address] [facility] [address] EPI,TRANSITION 0-5 SEEN Normal 0-5 [facility] Comment on above: Order Comment: CLEAN CATCH Performed By: #### L 400.0001 ####[facility] [address] [facility] [address] WBC 0-5 SEEN Normal 0-5 [facility] Comment on above: Order Comment: CLEAN CATCH Performed By: #### L 400.0001 ####[facility] [address] [place] [id number] BILIRUBIN URINE Negative Normal Negative [facility] Comment on above: Order Comment: CLEAN CATCH Performed By: #### L 400.0001 ####[facility] [address] [facility] [address] Clarity (U) Clear Normal Clear [facility] Comment on above: Order Comment: CLEAN CATCH Performed By: #### L 400.0001 ####[facility] [address] [facility] [address] Color (U) Straw Normal Yellow [facility] Comment on above: Order Comment: CLEAN CATCH Performed By: #### L 400.0001 ####[facility] [address] [facility] [address] GLUCOSE, UR 1000 mg/dl Abnormal Normal [facility] Comment on above: Order Comment: CLEAN CATCH Performed By: #### L 400.0001 ####[facility] [address] [facility] [address] KETONE UR Negative Normal Negative [facility] Comment on above: Order Comment: CLEAN CATCH Performed By: #### L 400.0001 ####[facility] [address] [place] [id number] LEUK ESTERASE Negative Normal Negative [facility] Comment on above: Order Comment: CLEAN CATCH Performed By: #### L 400.0001 ####[facility] [address] [place] [id number] Nitrite Ql (U) Negative Normal Negative [facility] Comment on above: Order Comment: CLEAN CATCH Performed By: #### L 400.0001 ####[facility] [address] [place] [id number] OCCULT BLOOD-UR 50 /ul Abnormal Negative [facility] Comment on above: Order Comment: CLEAN CATCH Performed By: #### L 400.0001 ####[facility] [address] [place] [address] pH UR 6.0 Normal 5.0 - 8.0 [facility] Comment on above: Order Comment: CLEAN CATCH Performed By: #### L 400.0001 ####[facility] [address] [place] [address] PROT DIPSTX 15 mg/dl Abnormal Negative [facility] Comment on above: Order Comment: CLEAN CATCH Performed By: #### L 400.0001 ####[facility] [address] [place] [id number] SP.GR. DIPSTX 1.010 Normal 1.002-1.030 [facility] Comment on above: Order Comment: CLEAN CATCH Performed By: #### L 400.0001 ####[facility] [address] [place] [address] UROBILI Normal Normal Normal [facility] Comment on above: Order Comment: CLEAN CATCH Performed By: #### L 400.0001 ####[facility] [address] [place] [id number] Mucus Ql (Urine sed) 0 SEEN Normal [facility] Comment on above: Order Comment: CLEAN CATCH Performed By: #### L 400.0001 ####[facility] [address] [place], [address] RBC 0 SEEN Normal 0-5 [facility] Comment on above: Order Comment: CLEAN CATCH Performed By: #### L 400.0001 ####[facility] [address] [place], [address] Amphetamine detection with 1 000 ng/mL as cutoffon 07-12-2025 Amphetamines Screen method >1000 ng/mL Ql (U) Positive <1000 ng/mL [facility] Comment on above: If confirmation test ing is needed, a separate order will be required to send out testing to the reference laboratory. Amphetamines Screen method >1000 ng/mL Ql (U) Negative < 200 ng/mL [facility] No Panel Informationon 07-12 Urine Buprenorphine Qualitative Negative < 200 ng/mL [facility] Urine Oxycodone Screen Negative < 100 ng/mL [facility] Quantitative urine opiates m easurementon 07-12-2025 Opiates Ql (U) Negative < 300 ng/mL [facility] Screening urine fentanyl nikki surementon 07-12-2025 fentaNYL Screen Ql (U) Negative <5 ng/mL [facility] Comment on above: CONFIRMATORY TESTING FOR [...] (VISTA)on 07-12-2025 AMPHETAMINES Positive Normal <1000 ng/mL [facility] Comment on above: Order Comment: MEDTO X Result Comment: If c onfirmation testing is needed, a separate order will berequired to send out testing to the reference laboratory. Performed By: #### L 505.5000 ####[facility] [address] [place] [address] BARBITIURATES Negative Normal < 200 ng/mL [facility] Comment on above: Order Comment: MEDTO X Performed By: #### L 505.5000 ####[facility] [address] [place] [address] BENZODIAZIPINE Negative Normal < 200 ng/mL [facility] Comment on above: Order Comment: MEDTO X Performed By: #### L 505.5000 ####[facility] [address] [place] [address] BUP Ur Drug Scr Negative Normal < 200 ng/mL [facility] Comment on above: Order Comment: MEDTO X Performed By: #### L 505.5000 ####[facility] [address] [place] [address] COCAINE Negative Normal < 300 ng/mL [facility] Comment on above: Order Comment: MEDTO X Performed By: #### L 505.5000 ####[facility] [address] [place] [address] Fentanyl Negative Normal <5 ng/mL [facility] Comment on above: Order Comment: MEDTO X [...] testmnemonic: [facility] Performed By: #### L 505.5000 ####[facility] [address] [place] [address] METHADONE Negative Normal < 300 ng/mL [facility] Comment on above: Order Comment: MEDTO X Performed By: #### L 505.5000 ####[facility] [address] [place], [address] OPIATES Negative Normal < 300 ng/mL [facility] Comment on above: Order Comment: MEDTO X Performed By: #### L 505.5000 ####[facility] [address] [place], [address] OXYCODONE Negative Normal < 100 ng/mL [facility] Comment on above: Order Comment: MEDTO X Performed By: #### L 505.5000 ####[facility] [address] [place], [address] PCP Negative Normal < 25 ng/mL [facility] Comment on above: Order Comment: MEDTO X Performed By: #### L 505.5000 ####[facility] [address] [place], [address] THC Negative Normal < 50 ng/mL [facility] Comment on above: Order Comment: MEDTO X Performed By: #### L 505.5000 ####[facility] [address] [place], [address] Urine benzodiazepine levelon 07-12-2025 Benzodiazepines Ql (U) Negative < 200 ng/mL [facility] Urine cocaine levelon 2024 Cocaine Ql (U) Negative < 300 ng/mL [facility] Urine qkngg-6-wuewelutqoiloo abinol (THC) measurementon 07-12-2025 Cannabinoids Screen Ql (U) Negative < 50 ng/mL [facility] Urine phencyclidine (PCP) de tectionon 07-12-2025 Phencyclidine Ql (U) Negative < 25 ng/mL [facility] Ova and Parasites 8623on OP Normal [facility] Comment on above: Performed By: #### M 100.637, M100.6796, L7000.0750, M600.5000 ####[facility] [address] [place], [address] Internal Medicine Office Vis iton 06-20-2025 Internal Medicine Office Visit Normal [facility] Absolute lymphocyte countOrd ered By: Elaine Jones on 06-13-2025 Lymphocytes Auto (Unsp spec) [#/Vol] 2.41 10*3/uL 0.83-4.51 [facility] Absolute neutrophil countOrd ered By: Elaine Jones on 06-13-2025 Neutrophils (Bld) [#/Vol] 3.6 10*3/uL 2.0-7.7 [facility] Activated partial thrombopla stin time (aPTT) in platelet poor plasma by coagulation aOrdered By: Elaine Jones on 06-13-2025 aPTT Coag (PPP) [Time] 24.8 s 24.1-36.2 [facility] Anion gap in Serum or Plasma Ordered By: Elaine Jones on 06-13-2025 Anion gap [Moles/Vol] 14 mmol/L 03-13 [facility] Automated lymphocyte count a s percentage of total leukocytesOrdered By: Elaine Jones on 06-13-2025 Lymphocytes/100 WBC Auto (Unsp spec) 36.7 % [facility] BUN/creatinine ratioOrdered By: Elaine Jones on 06-13-2025 Urea nitrogen/Creatinine [Mass ratio] 11.4 mg/mg - [facility] Basophil percentageOrdered B y: Elaine Jones on 06-13-2025 Basophils/100 WBC (Bld) 0.5 % 0- [facility] Bilirubin, totalOrdered By: Elaine Jones on 06-13-2025 Bilirubin [Mass/Vol] 0.51 mg/dL 0.00-1.30 [facility] CBC W/Diff, Automatedon 05-30 Absolute Lymph 2.41 X10 3/uL Normal 0.83-4.51 [facility] Comment on above: Performed By: #### L 501.9985, L300.3900, L300.4310, L501.9520, L500.4050, L100.0100 ####[facility] [address] [place], [address] Absolute Neut 3.6 X10 3/uL Normal 2.0-7.7 [facility] Comment on above: Performed By: #### L 501.9985, L300.3900, L300.4310, L501.9520, L500.4050, L100.0100 ####[facility] [address] [place], [address] Basophils/100 WBC (Bld) 0.5 % Normal 0-1 [facility] Comment on above: Performed By: #### L 501.9985, L300.3900, L300.4310, L501.9520, L500.4050, L100.0100 ####[facility] [address] [place], [address] Eosinophils/100 WBC (Bld) 1.4 % Normal 0-5 [facility] Comment on above: Performed By: #### L 501.9985, L300.3900, L300.4310, L501.9520, L500.4050, L100.0100 ####[facility] [address] [place], [address] Erythrocyte distribution width (RBC) [Ratio] 15.4 % High 11.6-14.6 [facility] Comment on above: Performed By: #### L 501.9985, L300.3900, L300.4310, L501.9520, L500.4050, L100.0100 ####[facility] [address] [place], [address] Hematocrit (Bld) [Volume fraction] 39.0 % Normal 37-47 [facility] Comment on above: Performed By: #### L 501.9985, L300.3900, L300.4310, L501.9520, L500.4050, L100.0100 ####[facility] [address] [place], [address] Hemoglobin (Bld) [Mass/Vol] 12.7 g/dL Normal 12.0-15.0 [facility] Comment on above: Performed By: #### L 501.9985, L300.3900, L300.4310, L501.9520, L500.4050, L100.0100 ####[facility] [address] [place], [address] IG% 0.300 Normal 0.0-0.9 [facility] Comment on above: Result Comment: IG% - Immature Granulocytes (promyelocytes, myelocytes andmetamyelocytes) > 1% indicates that a LEFT SHIFT is Present. Performed By: #### L 501.9985, L300.3900, L300.4310, L501.9520, L500.4050, L100.0100 ####[facility] [address] [place], [address] Lymphocytes/100 WBC (Bld) 36.7 % Normal 19-41 [facility] Comment on above: Performed By: #### L 501.9985, L300.3900, L300.4310, L501.9520, L500.4050, L100.0100 ####[facility] [address] [place], [address] MCH (RBC) [Entitic mass] 24.5 pg Low 27.0-32.0 [facility] Comment on above: Performed By: #### L 501.9985, L300.3900, L300.4310, L501.9520, L500.4050, L100.0100 ####[facility] [address] [place], [address] MCHC (RBC) [Mass/Vol] 32.6 g/dL Normal 32-36 [facility] Comment on above: Performed By: #### L 501.9985, L300.3900, L300.4310, L501.9520, L500.4050, L100.0100 ####[facility] [address] [place], [address] MCV (RBC) [Entitic vol] 75.1 fL Low 81-99 [facility] Comment on above: Performed By: #### L 501.9985, L300.3900, L300.4310, L501.9520, L500.4050, L100.0100 ####[facility] [address] [place], [address] Monocytes/100 WBC (Bld) 6.8 % Normal 0-10 [facility] Comment on above: Performed By: #### L 501.9985, L300.3900, L300.4310, L501.9520, L500.4050, L100.0100 ####[facility] [address] [place], [address] Neutrophils/100 WBC (Bld) 54.3 % Normal 47-70 [facility] Comment on above: Performed By: #### L 501.9985, L300.3900, L300.4310, L501.9520, L500.4050, L100.0100 ####[facility] [address] [place], [address] Nucleated RBC (Bld) [#/Vol] 0 10*3/uL Normal 0-5 [facility] Comment on above: Performed By: #### L 501.9985, L300.3900, L300.4310, L501.9520, L500.4050, L100.0100 ####[facility] [address] [place], [address] Platelet mean volume (Bld) [Entitic vol] 9.3 fL Normal 6.2-12.0 [facility] Comment on above: Performed By: #### L 501.9985, L300.3900, L300.4310, L501.9520, L500.4050, L100.0100 ####[facility] [address] [place], [address] Platelets (Bld) [#/Vol] 271 10*3/uL Normal 150-450 [facility] Comment on above: Performed By: #### L 501.9985, L300.3900, L300.4310, L501.9520, L500.4050, L100.0100 ####[facility] [address] [place], [address] RBC (Bld) [#/Vol] 5.19 10*6/uL Normal 4.2-5.4 [facility] Comment on above: Performed By: #### L 501.9985, L300.3900, L300.4310, L501.9520, L500.4050, L100.0100 ####[facility] [address] [place], [address] RDW SD 41.7 fl Normal 35.1-43.9 [facility] Comment on above: Performed By: #### L 501.9985, L300.3900, L300.4310, L501.9520, L500.4050, L100.0100 ####[facility] [address] [place], [address] WBC (Bld) [#/Vol] 6.6 10*3/uL Normal 4.4-11.0 [facility] Comment on above: Performed By: #### L 501.9985, L300.3900, L300.4310, L501.9520, L500.4050, L100.0100 ####[facility] [address] [place], [address] Carbon dioxide, total [Moles /volume] in Central venous bloodOrdered By: Elaine Jones on 06-13-2025 CO2 [Moles/Vol] 23.1 mmol/L 21.0-32.0 [facility] Chloride assayOrdered By: Keagan Jones on 06-13-2025 Chloride [Moles/Vol] 98 mmol/L 98-108 [facility] Comprehensive Metabolic Prof ilon 06-13-2025 Albumin [Mass/Vol] 4.5 g/dL Normal 3.5-5.0 [facility] Comment on above: Performed By: #### L 501.9985, L300.3900, L300.4310, L501.9520, L500.4050, L100.0100 ####[facility] [address] [place], [address] Albumin/Globulin [Mass ratio] 1.4 {ratio} Normal 0.9-2.4 [facility] Comment on above: Performed By: #### L 501.9985, L300.3900, L300.4310, L501.9520, L500.4050, L100.0100 ####[facility] [address] [place], [address] ALK PHOS 121 U/L High 35-104 [facility] Comment on above: Performed By: #### L 501.9985, L300.3900, L300.4310, L501.9520, L500.4050, L100.0100 ####[facility] [address] [place], [address] ALT [Catalytic activity/Vol] 22 U/L Normal <=34 [facility] Comment on above: Performed By: #### L 501.9985, L300.3900, L300.4310, L501.9520, L500.4050, L100.0100 ####[facility] [address] [place], [address] AST [Catalytic activity/Vol] 15 U/L Normal <=31 [facility] Comment on above: Performed By: #### L 501.9985, L300.3900, L300.4310, L501.9520, L500.4050, L100.0100 ####[facility] [address] [place], [address] Bilirubin [Mass/Vol] 0.51 mg/dL Normal 0.00-1.30 [facility] Comment on above: Performed By: #### L 501.9985, L300.3900, L300.4310, L501.9520, L500.4050, L100.0100 ####[facility] [address] [place], [address] BUN/CRE 11.4 RATIO Normal 10-20 [facility] Comment on above: Performed By: #### L 501.9985, L300.3900, L300.4310, L501.9520, L500.4050, L100.0100 ####[facility] [address] [place], [address] Calcium [Mass/Vol] 9.6 mg/dL Normal 7.6-11.0 [facility] Comment on above: Performed By: #### L 501.9985, L300.3900, L300.4310, L501.9520, L500.4050, L100.0100 ####[facility] [address] [place], [address] Chloride [Moles/Vol] 98 mmol/L Normal 98-108 [facility] Comment on above: Performed By: #### L 501.9985, L300.3900, L300.4310, L501.9520, L500.4050, L100.0100 ####[facility] [address] [place], [address] CO2 [Moles/Vol] 23.1 mmol/L Normal 21.0-32.0 [facility] Comment on above: Performed By: #### L 501.9985, L300.3900, L300.4310, L501.9520, L500.4050, L100.0100 ####[facility] [address] [place], [address] Creatinine [Mass/Vol] 0.78 mg/dL Normal 0.70-1.20 [facility] Comment on above: Performed By: #### L 501.9985, L300.3900, L300.4310, L501.9520, L500.4050, L100.0100 ####[facility] [address] [place], [address] GAP 14 Normal 5-15 [facility] Comment on above: Performed By: #### L 501.9985, L300.3900, L300.4310, L501.9520, L500.4050, L100.0100 ####[facility] [address] [place], [address] GFR/1.73 sq M.predicted among non-blacks MDRD (S/P/Bld) [Vol rate/Area] 104 mL/min/{1.73_m2} Normal >60 [facility] Comment on above: Result Comment: mL/m in/1.73m2 CKD-EPI Creatinine Equation (2020) Performed By: #### L 501.9985, L300.3900, L300.4310, L501.9520, L500.4050, L100.0100 ####[facility] [address] [place], [address] Globulin (S) [Mass/Vol] 3.3 g/dL Normal 2.2-4.2 [facility] Comment on above: Performed By: #### L 501.9985, L300.3900, L300.4310, L501.9520, L500.4050, L100.0100 ####[facility] [address] [place], [address] Glucose [Mass/Vol] 308 mg/dL High 70-99 [facility] Comment on above: Performed By: #### L 501.9985, L300.3900, L300.4310, L501.9520, L500.4050, L100.0100 ####[facility] [address] [place], [address] Potassium [Moles/Vol] 4.0 mmol/L Normal 3.3-5.1 [facility] Comment on above: Performed By: #### L 501.9985, L300.3900, L300.4310, L501.9520, L500.4050, L100.0100 ####[facility] [address] [place], [address] Sodium [Moles/Vol] 135 mmol/L Normal 133-145 [facility] Comment on above: Performed By: #### L 501.9985, L300.3900, L300.4310, L501.9520, L500.4050, L100.0100 ####[facility] [address] [place], [address] T PROT 7.8 g/dL Normal 5.9-8.4 [facility] Comment on above: Performed By: #### L 501.9985, L300.3900, L300.4310, L501.9520, L500.4050, L100.0100 ####[facility] [address] [place], [address] Urea nitrogen [Mass/Vol] 9 mg/dL Normal 4-19 [facility] Comment on above: Performed By: #### L 501.9985, L300.3900, L300.4310, L501.9520, L500.4050, L100.0100 ####[facility] [address] [place], [address] Eosinophil percentageOrdered By: Elaine Jones on 06-13-2025 Eosinophils/100 WBC (Bld) 1.4 % 0-5 [facility] Erythrocyte distribution wid th ratioOrdered By: Elaine Jones on 06-13-2025 Erythrocyte distribution width (RBC) [Ratio] 15.4 % High 11.6-14.6 [facility] Erythrocyte distribution wid th standard deviationOrdered By: Elaine Jones on 06-13-2025 Erythrocyte distribution width (RBC) [Ratio] 41.7 fl 35.1-43.9 [facility] Glomerular filtration rate ( GFR) estimation/1.73 sq m using serum, plasma, or whole bOrdered By: Elaine Jones on 06-13-2025 GFR/1.73 sq M.predicted among non-blacks MDRD (S/P/Bld) [Vol rate/Area] 104 mL/min/{1.73_m2} >60 [facility] Comment on above: mL/min/1.73m2 CKD-EP I Creatinine Equation (2020) Hematocrit Auto (Bld) [Volum e fraction]Ordered By: Elaine Jones on 06-13-2025 Hematocrit (Bld) [Volume fraction] 39.0 % 37-47 [facility] Hemoglobin A1con 06-13-2025 HbA1c (Bld) [Mass fraction] 9.9 % High <=5.6 [facility] Comment on above: Result Comment: Norm al < 5.7 % Prediabetic 5.7 - 6.4 % Diabetic >or= 6.5 % Please note range changes. Performed By: #### L 501.9985, L300.3900, L300.4310, L501.9520, L500.4050, L100.0100 ####[facility] [address], [address] Hemoglobin A1c percentageOrd ered By: Elaine Jones on 06-13-2025 HbA1c (Bld) [Mass fraction] 9.9 % High <5.7 [facility] Comment on above: Normal < 5.7 % Predi abetic 5.7 - 6.4 % Diabetic >or= 6.5 % Please note range changes. Hemoglobin measurementOrdere d By: Elaine Jones on 06-13-2025 Hemoglobin (Bld) [Mass/Vol] 12.7 g/dL 12.0-15.0 [facility] Immature granulocytes/100 WB C Auto (Bld)Ordered By: Elaine Jones on 06-13-2025 Immature granulocytes/100 WBC (Bld) 0.300 % 0.0-0.9 [facility] Comment on above: IG% - Immature Granu locytes (promyelocytes, myelocytes and metamyelocytes) > 1% indicates that a LEFT SHIFT is Present. International normalized rat io (INR) calculationOrdered By: Elaine Jones on 06-13-2025 INR Coag (Bld) [Relative time] 0.9 {INR} [facility] Laboratory - Chemistry and C hemistry - challengeOrdered By: Elaine Jones on 06-13-2025 AST [Catalytic activity/Vol] 15 U/L <32 [facility] MCV (mean corpuscular volume ) determinationOrdered By: Elaine Jones on 06-13-2025 MCV (RBC) [Entitic vol] 75.1 fL Low 81-99 [facility] [facility] Mean corpuscular hemoglobin (MCH) determinationOrdered By: Elaine Jones on 06-13-2025 MCH (RBC) [Entitic mass] 24.5 pg Low 27.0-32.0 [facility] Mean corpuscular hemoglobin concentration (MCHC) determinationOrdered By: Elaine Jones on 06-13-2025 MCHC (RBC) [Mass/Vol] 32.6 g/dL 32-36 [facility] Mean platelet volume determi nationOrdered By: Elaine Jones on 06-13-2025 Platelet mean volume (Bld) [Entitic vol] 9.3 fL 6.2-12.0 [facility] Monocyte percentageOrdered B y: Elaine Jones on 06-13-2025 Monocytes/100 WBC (Bld) 6.8 % 0-10 [facility] Neutrophil percentageOrdered By: Elaine Jones on 06-13-2025 Neutrophils/100 WBC (Bld) 54.3 % 47-70 [facility] Nucleated red blood cell per centageOrdered By: Elaine Jones on 06-13-2025 Nucleated RBC/100 WBC (Bld) [Ratio] 0 % 0-5 [facility] [employer] Visit Reporton 06-13-2025 [employer]r [employer] Office Visit Report Normal [facility] Partial Thromboplast Timeon 06-13-2025 aPTT Coag (Bld) [Time] 24.8 s Normal 24.1-36.2 [facility] Comment on above: Performed By: #### L 501.9985, L300.3900, L300.4310, L501.9520, L500.4050, L100.0100 ####[facility] [address] [place], [address] Platelet countOrdered By: Keagan Jones on 06-13-2025 Platelets (Bld) [#/Vol] 271 10*3/uL 150-450 [facility] Potassium measurement (mass/ volume)Ordered By: Elaine Jones on 06-13-2025 Potassium (Unsp spec) [Mass/Vol] 4.0 mmol/L 3.3-5.1 [facility] Prothrombin Time w/INRon INR Coag (PPP) [Relative time] 0.9 {INR} Normal [facility] Comment on above: Performed By: #### L 501.9985, L300.3900, L300.4310, L501.9520, L500.4050, L100.0100 ####[facility] [address] [place], [address] PT Coag (PPP) [Time] 12.5 s Normal 11.7-14.9 [facility] Comment on above: Performed By: #### L 501.9985, L300.3900, L300.4310, L501.9520, L500.4050, L100.0100 ####[facility] [address] [place], [address] Prothrombin timeOrdered By: Elaine Jones on 06-13-2025 PT Coag (PPP) [Time] 12.5 s 11.7-14.9 [facility] RBC Auto (Bld) [#/Vol]Ordere d By: Elaine Jones on 06-13-2025 RBC (Bld) [#/Vol] 5.19 10*6/uL 4.2-5.4 [facility] Serum creatinine measurement (mass/volume)Ordered By: Elaine Jones on 06-13-2025 Creatinine [Mass/Vol] 0.78 mg/dL 0.70-1.20 [facility] Serum globulin measurementOr dered By: Elaine Jones on 06-13-2025 Globulin (S) [Mass/Vol] 3.3 g/dL 2.2-4.2 [facility] Serum glucose measurement (m ass/volume)Ordered By: Elaine Jones on 06-13-2025 Glucose [Mass/Vol] 308 mg/dL High 70-99 [facility] Serum or plasma alanine kang otransferase (ALT) measurementOrdered By: Elaine Jones on 06-13-2025 ALT [Catalytic activity/Vol] 22 U/L <35 [facility] Serum or plasma albumin nabil urement (mass/volume)Ordered By: Elaine Jones on 06-13-2025 Albumin [Mass/Vol] 4.5 g/dL 3.5-5.0 [facility] Serum or plasma albumin/glob ulin mass ratioOrdered By: Elaine Jones on 06-13-2025 Albumin/Globulin [Mass ratio] 1.4 {ratio} 0.9-2.4 [facility] Serum or plasma alkaline jesús sphatase measurementOrdered By: Elaine Jones on 06-13-2025 ALP [Catalytic activity/Vol] 121 U/L High 35-104 [facility] Serum or plasma calcium nabil urement (mass/volume)Ordered By: Elaine Jones on 06-13-2025 Calcium [Mass/Vol] 9.6 mg/dL 7.6-11.0 [facility] Serum or plasma urea nitroge n measurement (mass/volume)Ordered By: Elaine Jones on 06-13-2025 Urea nitrogen [Mass/Vol] 9 mg/dL 4-19 [facility] Sodium levelOrdered By: Rajiv Rezanoranaomie on 06-13-2025 Sodium [Moles/Vol] 135 mmol/L 133-145 [facility] TSH DL <= 0.005 mIU/L QnOrde red By: Elaine Jones on 06-13-2025 TSH Qn 1.040 uIU/mL 0.300-4.200 [facility] Thyroid Stim Hormone (TSH)on 06-13-2025 TSH 1.040 uIU/mL Normal 0.300-4.200 [facility] Comment on above: Performed By: #### L 501.9985, L300.3900, L300.4310, L501.9520, L500.4050, L100.0100 ####[facility] [address] [place], [address] Total proteinOrdered By: Walter christian Karen on 06-13-2025 Protein [Mass/Vol] 7.8 g/dL 5.9-8.4 [facility] White blood cell (WBC) count Ordered By: Elaine Karen on 06-13-2025 WBC (Bld) [#/Vol] 6.6 10*3/uL 4.4-11.0 [facility] L3410.9992on 06-05-2025 [facility] Misc. COMMENT Normal . [facility] Comment on above: Order Comment: [id number] 2Hair drug screen 9 Panel Result Comment: Test Ordered: [id number] Hair Drug Screen 9 PanelAmphetamines Negative pg/mg [...] otherwise noted.Test developed and characteristics determined by [facility]. See Compliance Statementon our website [email or web address].Certified by: [email or web address] at: [facility] [address] [place], [place] [id number] Director: Tami Stover PhD, Phone: [phone] at: [facility] [id number] [place], [place] [id number] Director: Donell Nieto PhD, Phone: [phone] Performed By: #### L 3410.9992 ####[facility] [address] [place], [address] Abdomen Limitedon 05-09-2025 Abdomen Limited Normal [facility] L7000.0750on 04-28-2025 P ELASTASE,FECA 427 Normal >200 [facility] Comment on above: Result Comment: Resu lt Units: ug Elast./g Severe Pancreatic Insufficiency: <100 Moderate Pancreatic Insufficiency: 100 - 200 Normal: >200Performed at: [address] [id number] Director: Cinthya Downs MD, Phone: [phone] Performed By: #### M 100.637, M100.6796, L7000.0750, M600.5000 ####[facility] [address] [place], [address] CDIFF (PCR)on 04-24-2025 CDIFF Normal [facility] Comment on above: Performed By: #### M 100.637, M100.6796, L7000.0750, M600.5000 ####[facility] [address] [place], [address] Clostridium difficile detect ion by polymerase chain reactionOrdered By: La Basurto on 04-24-2025 C. difficile DNA SAE+probe Ql (Unsp spec) [facility] ENTERIC PATHOGEN PANEL STOOL on 04-24-2025 EP PANEL Normal [facility] Comment on above: Performed By: #### M 100.637, M100.6796, L7000.0750, M600.5000 ####[facility] [address] [place], [address] Stool pancreatic elastase me asurement (mass/mass)Ordered By: La Basurto on 04-24-2025 Elastase.pancreatic (Stl) [Mass/Mass] 427 >200 [facility] Comment on above: Result Units: ug Karyn st./g Severe Pancreatic Insufficiency: <100 Moderate Pancreatic Insufficiency: 100 - 200 Normal: >200Performed at: [facility] [address] [id number] Director: Cinthya Downs MD, Phone: [phone] Gastroenterology Visit Repor ton 04-17-2025 Gastroenterology Visit Report Normal [facility] Laboratory - Chemistry and C hemistry - challengeOrdered By: Elaine Jones on 03-31-2025 HCG ( test) Ql (U) Negative [facility] [employer] Repairer [employer] Office Visit Reporton 03-31-2025 Die Repairer Stamping Office Visit Report Normal [facility] Internal Medicine Office Vis iton 03-28-2025 Internal Medicine Office Visit Normal [facility] Internal Medicine Office Vis iton 03-07-2025 Internal Medicine Office Visit Normal [facility] Absolute lymphocyte countOrd ered By: Renetta Queen on 02-28-2025 Lymphocytes Auto (Unsp spec) [#/Vol] 2.75 10*3/uL 0.83-4.51 [facility] Absolute neutrophil countOrd ered By: Renetta Queen on 02-28-2025 Neutrophils (Bld) [#/Vol] 5.1 10*3/uL 2.0-7.7 [facility] Automated lymphocyte count a s percentage of total leukocytesOrdered By: Renetta Queen on 02-28-2025 Lymphocytes/100 WBC Auto (Unsp spec) 32.2 % 19-41 [facility] Basophil percentageOrdered B y: Renetta Queen on 02-28-2025 Basophils/100 WBC (Bld) 0.5 % 0-1 [facility] CBC W/Diff, Automatedon Absolute Lymph 2.75 X10 3/uL Normal 0.83-4.51 [facility] Comment on above: Performed By: #### L 100.0100 ####[facility] [address] [place], [address] Absolute Neut 5.1 X10 3/uL Normal 2.0-7.7 [facility] Comment on above: Performed By: #### L 100.0100 ####[facility] [address] [place], [address] Basophils/100 WBC (Bld) 0.5 % Normal 0-1 [facility] Comment on above: Performed By: #### L 100.0100 ####[facility] [address] [place], [address] Eosinophils/100 WBC (Bld) 1.2 % Normal 0-5 [facility] Comment on above: Performed By: #### L 100.0100 ####[facility] [address] [place], [address] Erythrocyte distribution width (RBC) [Ratio] 13.7 % Normal 11.6-14.6 [facility] Comment on above: Performed By: #### L 100.0100 ####[facility] [address] [place], [address] Hematocrit (Bld) [Volume fraction] 36.2 % Low 37-47 [facility] Comment on above: Performed By: #### L 100.0100 ####[facility] [address] [place], [address] Hemoglobin (Bld) [Mass/Vol] 11.8 g/dL Low 12.0-15.0 [facility] Comment on above: Performed By: #### L 100.0100 ####[facility] [address] [place], [address] IG% 0.500 Normal 0.0-0.9 [facility] Comment on above: Result Comment: IG% - Immature Granulocytes (promyelocytes, myelocytes andmetamyelocytes) > 1% indicates that a LEFT SHIFT is Present. Performed By: #### L 100.0100 ####[facility] [address] [place], [address] Lymphocytes/100 WBC (Bld) 32.2 % Normal 19-41 [facility] Comment on above: Performed By: #### L 100.0100 ####[facility] [address] [place], [address] MCH (RBC) [Entitic mass] 24.6 pg Low 27.0-32.0 [facility] Comment on above: Performed By: #### L 100.0100 ####[facility] [address] [place], [address] MCHC (RBC) [Mass/Vol] 32.6 g/dL Normal 32-36 [facility] Comment on above: Performed By: #### L 100.0100 ####[facility] [address] [place], [address] MCV (RBC) [Entitic vol] 75.4 fL Low 81-99 [facility] Comment on above: Performed By: #### L 100.0100 ####[facility] [address] [place], [address] Monocytes/100 WBC (Bld) 5.7 % Normal 0-10 [facility] Comment on above: Performed By: #### L 100.0100 ####[facility] [address] [place], [address] Neutrophils/100 WBC (Bld) 59.9 % Normal 47-70 [facility] Comment on above: Performed By: #### L 100.0100 ####[facility] [address] [place], [address] Nucleated RBC (Bld) [#/Vol] 0 10*3/uL Normal 0-5 [facility] Comment on above: Performed By: #### L 100.0100 ####[facility] [address] [place], [address] Platelet mean volume (Bld) [Entitic vol] 8.7 fL Normal 6.2-12.0 [facility] Comment on above: Performed By: #### L 100.0100 ####[facility] [address] [place], [address] Platelets (Bld) [#/Vol] 333 10*3/uL Normal 150-450 [facility] Comment on above: Performed By: #### L 100.0100 ####[facility] [address] [place], [address] RBC (Bld) [#/Vol] 4.80 10*6/uL Normal 4.2-5.4 [facility] Comment on above: Performed By: #### L 100.0100 ####[facility] [address] [place], [address] RDW SD 37.0 fl Normal 35.1-43.9 [facility] Comment on above: Performed By: #### L 100.0100 ####[facility] [address] [place], [address] WBC (Bld) [#/Vol] 8.5 10*3/uL Normal 4.4-11.0 [facility] Comment on above: Performed By: #### L 100.0100 ####[facility] [address] [place], [address] Emergency Department Summary on 02-28-2025 Emergency Department Summary Normal [facility] Eosinophil percentageOrdered By: Renetta Queen on 02-28-2025 Eosinophils/100 WBC (Bld) 1.2 % 0-5 [facility] Erythrocyte distribution wid th ratioOrdered By: Renetta Queen on 02-28-2025 Erythrocyte distribution width (RBC) [Ratio] 13.7 % 11.6-14.6 [facility] Erythrocyte distribution wid th standard deviationOrdered By: Renetta Queen on 02-28-2025 Erythrocyte distribution width (RBC) [Ratio] 37.0 fl 35.1-43.9 [facility] Hematocrit Auto (Bld) [Volum e fraction]Ordered By: Renetta Queen on 02-28-2025 Hematocrit (Bld) [Volume fraction] 36.2 % Low 37-47 [facility] Hemoglobin measurementOrdere d By: Renetta Queen on 02-28-2025 Hemoglobin (Bld) [Mass/Vol] 11.8 g/dL Low 12.0-15.0 [facility] Immature granulocytes/100 WB C Auto (Bld)Ordered By: Renetta Queen on 02-28-2025 Immature granulocytes/100 WBC (Bld) 0.500 % 0.0-0.9 [facility] Comment on above: IG% - Immature Granu locytes (promyelocytes, myelocytes and metamyelocytes) > 1% indicates that a LEFT SHIFT is Present. MCV (mean corpuscular volume ) determinationOrdered By: Renetta Queen on 02-28-2025 MCV (RBC) [Entitic vol] 75.4 fL Low 81-99 [facility] Mean corpuscular hemoglobin (MCH) determinationOrdered By: Renetta Queen on 02-28-2025 MCH (RBC) [Entitic mass] 24.6 pg Low 27.0-32.0 [facility] Mean corpuscular hemoglobin concentration (MCHC) determinationOrdered By: Renetta Queen on 02-28-2025 MCHC (RBC) [Mass/Vol] 32.6 g/dL 32-36 [facility] Mean platelet volume determi nationOrdered By: Renetta Queen on 02-28-2025 Platelet mean volume (Bld) [Entitic vol] 8.7 fL 6.2-12.0 [facility] Monocyte percentageOrdered B y: Renetta Queen on 02-28-2025 Monocytes/100 WBC (Bld) 5.7 % 0-10 [facility] Neutrophil percentageOrdered By: Renetta Queen on 02-28-2025 Neutrophils/100 WBC (Bld) 59.9 % 47-70 [facility] Nucleated red blood cell per centageOrdered By: Renetta Queen on 02-28-2025 Nucleated RBC/100 WBC (Bld) [Ratio] 0 % 0-5 [facility] Platelet countOrdered By: Melinda Queen on 02-28-2025 Platelets (Bld) [#/Vol] 333 10*3/uL 150-450 [facility] ,Serum,hCG Quali.on 02-28-2025 HCG, SERUM QUAL Negative Normal [facility] Comment on above: Performed By: #### L 700.6800 ####[facility] [address] [place], [address] RBC Auto (Bld) [#/Vol]Ordere d By: Renetta Queen on 02-28-2025 RBC (Bld) [#/Vol] 4.80 10*6/uL 4.2-5.4 [facility] Serum beta-hCG test, qualita tiveOrdered By: Renetta Queen on 02-28-2025 Beta HCG ( test) Ql Negative [facility] Transvaginal Non-on 02-28-2025 Transvaginal Non- Normal [facility] White blood cell (WBC) count Ordered By: Renetta Queen on 02-28-2025 WBC (Bld) [#/Vol] 8.5 10*3/uL 4.4-11.0 [facility] PAP IG HPV APTIMA 16/18,45on 02-27-2025 ADEQ Comment Normal . [facility] Comment on above: Order Comment: Speci men Comment: [id number] Comment: No. of containers..01 ThinPrep Vial Result Comment: Sati sfactory for evaluation. Endocervical and/or squamous metaplasticcells (endocervical component) are present. Performed By: #### L 7400.0280 ####[facility] [address] [place], [address] COMM . Normal . [facility] Comment on above: Order Comment: Speci men Comment: [id number] Comment: No. of containers..01 ThinPrep Vial Performed By: #### L 7400.0280 ####[facility] [address] [place], [place], [address] COMMENT Comment Normal . [facility] Comment on above: Order Comment: Speci men Comment: [id number] Comment: No. of containers..01 ThinPrep Vial Result Comment: This liquid based ThinPrep(R) pap test was screened withthe use of an image guided system. Performed By: #### L 7400.0280 ####[facility] [address] [place], [place], [address] DIAG Comment Abnormal . [facility] Comment on above: Order Comment: Speci men Comment: [id number] Comment: No. of containers..01 ThinPrep Vial Result Comment: EPIT HELIAL CELL ABNORMALITY.ATYPICAL SQUAMOUS CELLS OF UNDETERMINED SIGNIFICANCE (ASC-US). Performed By: #### L 7400.0280 ####[facility] [address] [place], [address] HPV APTIMA, HR Positive Abnormal Negative [facility] Comment on above: Order Comment: Speci men Comment: [id number] Comment: No. of containers..01 ThinPrep Vial Result Comment: This nucleic acid amplification test detects fourteen high-risk HPV types (16,18,31,33,35,39,45,51,52,56,58,59,66,68)without differentiation. Performed By: #### L 7400.0280 ####[facility] [address] [place], [place], [address] HPV Yaneli Rfx Comment Normal . [facility] Comment on above: Order Comment: Speci men Comment: [id number] Comment: No. of containers..01 ThinPrep Vial Result Comment: Crit ergray not met, HPV Genotype not performed.Performed at: - [facility] [address] [id number] Director: Bobbi Butler MD, Phone: [phone] at: =G - [facility] [address] [place], [place] [id number] Director: Bobbi Butler MD, Phone: [phone] Performed By: #### L 7400.0280 ####[facility] [address] [place], [place], [address] PAPSMR Comment Normal . [facility] Comment on above: Order Comment: Speci men Comment: [id number] Comment: No. of containers..01 ThinPrep Vial Result Comment: The Pap smear is a screening test designed to aid in thedetection of premalignant and malignant conditions of theuterine cervix. It is not a diagnostic procedure andshould not be used as the sole means of detecting cervicalcancer. Both false-positive and false-negative reports dooccur. Performed By: #### L 7400.0280 ####[facility] [address] [place], [place], [address] Path.prov.IDC-9 Comment Normal . [facility] Comment on above: Order Comment: Speci men Comment: [id number] Comment: No. of containers..01 ThinPrep Vial Result Comment: R87. 610 Performed By: #### L 7400.0280 ####[facility] [address] [place], [address] PERFORM Comment Normal . [facility] Comment on above: Order Comment: Speci men Comment: [id number] Comment: No. of containers..01 ThinPrep Vial Result Comment: Bahman Kathleen, [employer] Installer (ASCP) Performed By: #### L 7400.0280 ####[facility] [address] [place], [place], [address] SIGN Comment Normal . [facility] Comment on above: Order Comment: Speci men Comment: [id number] Comment: No. of containers..01 ThinPrep Vial Result Comment: Rudolph Chanel MD, Pathologist Performed By: #### L 7400.0280 ####[facility] [address] [place], [address] Absolute lymphocyte countOrd ered By: Elaine Jones on 02-25-2025 Lymphocytes Auto (Unsp spec) [#/Vol] 2.41 10*3/uL 0.83-4.51 [facility] Absolute neutrophil countOrd ered By: Elaine Jones on 02-25-2025 Neutrophils (Bld) [#/Vol] 4.7 10*3/uL 2.0-7.7 [facility] Anion gap in Serum or Plasma Ordered By: Elaine Jones on 02-25-2025 Anion gap [Moles/Vol] 14 mmol/L 5-15 [facility] Automated lymphocyte count a s percentage of total leukocytesOrdered By: Elaine Jones on 02-25-2025 Lymphocytes/100 WBC Auto (Unsp spec) 31.0 % - [facility] BUN/creatinine ratioOrdered By: Elaine Jones on 02-25-2025 Urea nitrogen/Creatinine [Mass ratio] 25.3 mg/mg High 10-20 [facility] Basophil percentageOrdered B y: Elaine Jones on 02-25-2025 Basophils/100 WBC (Bld) 0.4 % 0-1 [facility] Bilirubin, totalOrdered By: Elaine Jones on 02-25-2025 Bilirubin [Mass/Vol] 0.23 mg/dL 0.00-1.30 [facility] CBC W/Diff, Automatedon 01-29 Absolute Lymph 2.41 X10 3/uL Normal 0.83-4.51 [facility] Comment on above: Performed By: #### L 501.9520, L500.4050, L3890.6006, L501.9985, L100.0100 ####[facility] [address] [place], [address] Absolute Neut 4.7 X10 3/uL Normal 2.0-7.7 [facility] Comment on above: Performed By: #### L 501.9520, L500.4050, L3890.6006, L501.9985, L100.0100 ####[facility] [address] [place], [address] Basophils/100 WBC (Bld) 0.4 % Normal 0-1 [facility] Comment on above: Performed By: #### L 501.9520, L500.4050, L3890.6006, L501.9985, L100.0100 ####[facility] [address] [place], [address] Eosinophils/100 WBC (Bld) 1.2 % Normal 0-5 [facility] Comment on above: Performed By: #### L 501.9520, L500.4050, L3890.6006, L501.9985, L100.0100 ####[facility] [address] [place], [address] Erythrocyte distribution width (RBC) [Ratio] 13.5 % Normal 11.6-14.6 [facility] Comment on above: Performed By: #### L 501.9520, L500.4050, L3890.6006, L501.9985, L100.0100 ####[facility] [address] [place], [address] Hematocrit (Bld) [Volume fraction] 35.3 % Low 37-47 [facility] Comment on above: Performed By: #### L 501.9520, L500.4050, L3890.6006, L501.9985, L100.0100 ####[facility] [address] [place], [address] Hemoglobin (Bld) [Mass/Vol] 11.3 g/dL Low 12.0-15.0 [facility] Comment on above: Performed By: #### L 501.9520, L500.4050, L3890.6006, L501.9985, L100.0100 ####[facility] [address] [place], [address] IG% 0.500 Normal 0.0-0.9 [facility] Comment on above: Result Comment: IG% - Immature Granulocytes (promyelocytes, myelocytes andmetamyelocytes) > 1% indicates that a LEFT SHIFT is Present. Performed By: #### L 501.9520, L500.4050, L3890.6006, L501.9985, L100.0100 ####[facility] [address] [place], [address] Lymphocytes/100 WBC (Bld) 31.0 % Normal 19-41 [facility] Comment on above: Performed By: #### L 501.9520, L500.4050, L3890.6006, L501.9985, L100.0100 ####[facility] [address] [place], [address] MCH (RBC) [Entitic mass] 24.6 pg Low 27.0-32.0 [facility] Comment on above: Performed By: #### L 501.9520, L500.4050, L3890.6006, L501.9985, L100.0100 ####[facility] [address] [place], [address] MCHC (RBC) [Mass/Vol] 32.0 g/dL Normal 32-36 [facility] Comment on above: Performed By: #### L 501.9520, L500.4050, L3890.6006, L501.9985, L100.0100 ####[facility] [address] [place], [address] MCV (RBC) [Entitic vol] 76.7 fL Low 81-99 [facility] Comment on above: Performed By: #### L 501.9520, L500.4050, L3890.6006, L501.9985, L100.0100 ####[facility] [address] [place], [address] Monocytes/100 WBC (Bld) 6.0 % Normal 0-10 [facility] Comment on above: Performed By: #### L 501.9520, L500.4050, L3890.6006, L501.9985, L100.0100 ####[facility] [address] [place], [address] Neutrophils/100 WBC (Bld) 60.9 % Normal 47-70 [facility] Comment on above: Performed By: #### L 501.9520, L500.4050, L3890.6006, L501.9985, L100.0100 ####[facility] [address] [place], [address] Nucleated RBC (Bld) [#/Vol] 0 10*3/uL Normal 0-5 [facility] Comment on above: Performed By: #### L 501.9520, L500.4050, L3890.6006, L501.9985, L100.0100 ####[facility] [address] [place], [address] Platelet mean volume (Bld) [Entitic vol] 9.1 fL Normal 6.2-12.0 [facility] Comment on above: Performed By: #### L 501.9520, L500.4050, L3890.6006, L501.9985, L100.0100 ####[facility] [address] [place], [address] Platelets (Bld) [#/Vol] 291 10*3/uL Normal 150-450 [facility] Comment on above: Performed By: #### L 501.9520, L500.4050, L3890.6006, L501.9985, L100.0100 ####[facility] [address] [place], [address] RBC (Bld) [#/Vol] 4.60 10*6/uL Normal 4.2-5.4 [facility] Comment on above: Performed By: #### L 501.9520, L500.4050, L3890.6006, L501.9985, L100.0100 ####[facility] [address] [place], [address] RDW SD 37.1 fl Normal 35.1-43.9 [facility] Comment on above: Performed By: #### L 501.9520, L500.4050, L3890.6006, L501.9985, L100.0100 ####[facility] [address] [place], [address] WBC (Bld) [#/Vol] 7.8 10*3/uL Normal 4.4-11.0 [facility] Comment on above: Performed By: #### L 501.9520, L500.4050, L3890.6006, L501.9985, L100.0100 ####[facility] [address] [place], [address] Carbon dioxide, total [Moles /volume] in Central venous bloodOrdered By: Elaine Jones on 02-25-2025 CO2 [Moles/Vol] 20.8 mmol/L Low 21.0-32.0 [facility] Cervical or vaginal specimen microscopic examination by liquid based cytology (reportOrdered By: Elaine Jones on 02-25-2025 Cytology report Cyto stain.thin prep Doc (Cvx/Vag) Comment . [facility] Comment on above: Criteria not met, HP V Genotype not performed.Performed at: [address] [id number] Director: Bobbi Butler MD, Phone: [phone] at: =G - [facility] [address], [place] [id number] Director: Bobbi Butler MD, Phone: [phone] Cervical or vagninal specime n microscopic examination by cytology stain (reported asOrdered By: Elaine Jones on 02-25-2025 Cytology report Cyto stain Doc (Cvx/Vag) Comment . [facility] Comment on above: The Pap smear is a s creening test designed to aid in thedetection of premalignant and malignant conditions of theuterine cervix. It is not a diagnostic procedure andshould not be used as the sole means of detecting cervicalcancer. Both false-positive and false-negative reports dooccur. Chloride assayOrdered By: Keagan Jones on 02-25-2025 Chloride [Moles/Vol] 97 mmol/L Low 98-108 [facility] Comprehensive Metabolic Prof ilon 02-25-2025 Albumin [Mass/Vol] 4.1 g/dL Normal 3.5-5.0 [facility] Comment on above: Performed By: #### L 501.9520, L500.4050, L3890.6006, L501.9985, L100.0100 ####[facility] [address] [place], [address] Albumin/Globulin [Mass ratio] 1.2 {ratio} Normal 0.9-2.4 [facility] Comment on above: Performed By: #### L 501.9520, L500.4050, L3890.6006, L501.9985, L100.0100 ####[facility] [address] [place], [address] ALK PHOS 100 U/L Normal 35-104 [facility] Comment on above: Performed By: #### L 501.9520, L500.4050, L3890.6006, L501.9985, L100.0100 ####[facility] [address] [place], [address] ALT [Catalytic activity/Vol] 11 U/L Normal <=34 [facility] Comment on above: Performed By: #### L 501.9520, L500.4050, L3890.6006, L501.9985, L100.0100 ####[facility] [address] [place], [address] AST [Catalytic activity/Vol] 12 U/L Normal <=31 [facility] Comment on above: Performed By: #### L 501.9520, L500.4050, L3890.6006, L501.9985, L100.0100 ####[facility] [address] [place], [address] Bilirubin [Mass/Vol] 0.23 mg/dL Normal 0.00-1.30 [facility] Comment on above: Performed By: #### L 501.9520, L500.4050, L3890.6006, L501.9985, L100.0100 ####[facility] [address] [place], [address] BUN/CRE 25.3 RATIO High 10-20 [facility] Comment on above: Performed By: #### L 501.9520, L500.4050, L3890.6006, L501.9985, L100.0100 ####[facility] [address] [place], [address] Calcium [Mass/Vol] 9.4 mg/dL Normal 7.6-11.0 [facility] Comment on above: Performed By: #### L 501.9520, L500.4050, L3890.6006, L501.9985, L100.0100 ####[facility] [address] [place], [address] Chloride [Moles/Vol] 97 mmol/L Low 98-108 [facility] Comment on above: Performed By: #### L 501.9520, L500.4050, L3890.6006, L501.9985, L100.0100 ####[facility] [address] [place], [address] CO2 [Moles/Vol] 20.8 mmol/L Low 21.0-32.0 [facility] Comment on above: Performed By: #### L 501.9520, L500.4050, L3890.6006, L501.9985, L100.0100 ####[facility] [address] [place], [address] Creatinine [Mass/Vol] 0.70 mg/dL Normal 0.70-1.20 [facility] Comment on above: Performed By: #### L 501.9520, L500.4050, L3890.6006, L501.9985, L100.0100 ####[facility] [address] [place], [address] GAP 14 Normal 5-15 [facility] Comment on above: Performed By: #### L 501.9520, L500.4050, L3890.6006, L501.9985, L100.0100 ####[facility] [address] [place], [address] GFR/1.73 sq M.predicted among non-blacks MDRD (S/P/Bld) [Vol rate/Area] 117 mL/min/{1.73_m2} Normal >60 [facility] Comment on above: Result Comment: mL/m in/1.73m2 CKD-EPI Creatinine Equation (2020) Performed By: #### L 501.9520, L500.4050, L3890.6006, L501.9985, L100.0100 ####[facility] [address] [place], [address] Globulin (S) [Mass/Vol] 3.4 g/dL Normal 2.2-4.2 [facility] Comment on above: Performed By: #### L 501.9520, L500.4050, L3890.6006, L501.9985, L100.0100 ####[facility] [address] [place], [address] Glucose [Mass/Vol] 355 mg/dL High 70-99 [facility] Comment on above: Performed By: #### L 501.9520, L500.4050, L3890.6006, L501.9985, L100.0100 ####[facility] [address] [place], [address] Potassium [Moles/Vol] 4.8 mmol/L Normal 3.3-5.1 [facility] Comment on above: Performed By: #### L 501.9520, L500.4050, L3890.6006, L501.9985, L100.0100 ####[facility] [address] [place], [address] Sodium [Moles/Vol] 132 mmol/L Low 133-145 [facility] Comment on above: Performed By: #### L 501.9520, L500.4050, L3890.6006, L501.9985, L100.0100 ####[facility] [address] [place], [address] T PROT 7.4 g/dL Normal 5.9-8.4 [facility] Comment on above: Performed By: #### L 501.9520, L500.4050, L3890.6006, L501.9985, L100.0100 ####[facility] [address] [place], [address] Urea nitrogen [Mass/Vol] 18 mg/dL Normal 4-19 [facility] Comment on above: Performed By: #### L 501.9520, L500.4050, L3890.6006, L501.9985, L100.0100 ####[facility] [address] [place], [address] Detection in cervical specim en of any of human papilloma virus (HPV) 16, 18, 31, 33,Ordered By: Elaine Jones on 02-25-2025 HPV 16+18+31+33+35+39+45+5 1+52+56+58+59+66+68 DNA Probe+sig amp Ql (Cvx) Positive High Negative [facility] Comment on above: This nucleic acid am plification test detects fourteen high- risk HPV types (16,18,31,33,35,39,45,51,52,56,58,59,66,68)without differentiation. Eosinophil percentageOrdered By: Elaine Jones on 02-25-2025 Eosinophils/100 WBC (Bld) 1.2 % 0-5 [facility] Erythrocyte distribution wid th ratioOrdered By: Elaine Jones on 02-25-2025 Erythrocyte distribution width (RBC) [Ratio] 13.5 % 11.6-14.6 [facility] Erythrocyte distribution wid th standard deviationOrdered By: Elaine Jones on 02-25-2025 Erythrocyte distribution width (RBC) [Ratio] 37.1 fl 35.1-43.9 [facility] Glomerular filtration rate ( GFR) estimation/1.73 sq m using serum, plasma, or whole bOrdered By: Elaine Jones on 02-25-2025 GFR/1.73 sq M.predicted among non-blacks MDRD (S/P/Bld) [Vol rate/Area] 117 mL/min/{1.73_m2} >60 [facility] Comment on above: mL/min/1.73m2 CKD-EP I Creatinine Equation (2020) HIVon 02-25-2025 HIV Non-Reactive Normal Nonreactive [facility] Comment on above: Result Comment: Non- ReactiveReactiveRepeatedly reactive samples must be confirmed according toCDC recommended confirmatory algorithms. The subresults foreither HIVAG or AHIV can be used as an aid in the selectionof the confirmation algorithm for reactive samples.Send out specimens with Reactive results to [facility] forconfirmation.Order the HIV antibody detection and differentiation:lc#[id number] Performed By: #### L 501.9520, L500.4050, L3890.6006, L501.9985, L100.0100 ####[facility] [address] [place], [place], [address] Hematocrit Auto (Bld) [Volum e fraction]Ordered By: Elaine Jones on 02-25-2025 Hematocrit (Bld) [Volume fraction] 35.3 % Low 37-47 [facility] Hemoglobin A1con 02-25-2025 HbA1c (Bld) [Mass fraction] 12.4 % High <=5.6 [facility] Comment on above: Result Comment: Norm al < 5.7 % Prediabetic 5.7 - 6.4 % Diabetic >or= 6.5 % Please note range changes. Performed By: #### L 501.9520, L500.4050, L3890.6006, L501.9985, L100.0100 ####[facility] [address] [place], [place], [address] Hemoglobin A1c percentageOrd ered By: Elaine Jones on 02-25-2025 HbA1c (Bld) [Mass fraction] 12.4 % High <5.7 [facility] Comment on above: Normal < 5.7 % Predi abetic 5.7 - 6.4 % Diabetic >or= 6.5 % Please note range changes. Hemoglobin measurementOrdere d By: Elaine Jones on 02-25-2025 Hemoglobin (Bld) [Mass/Vol] 11.3 g/dL Low 12.0-15.0 [facility] Immature granulocytes/100 WB C Auto (Bld)Ordered By: Elaine Jones on 02-25-2025 Immature granulocytes/100 WBC (Bld) 0.500 % 0.0-0.9 [facility] Comment on above: IG% - Immature Granu locytes (promyelocytes, myelocytes and metamyelocytes) > 1% indicates that a LEFT SHIFT is Present. Laboratory - Chemistry and C hemistry - challengeOrdered By: Elaine Jones on 02-25-2025 AST [Catalytic activity/Vol] 12 U/L <32 [facility] HCG ( test) Ql (U) Negative [facility] Laboratory - CytologyOrdered By: Elaine Jones on 02-25-2025 [employer] Installer Cyto stain Nom (Cvx/Vag) [ID] Comment . [facility] Comment on above: Kiel Bailey ologist (ASCP) Pathologist Cyto stain Nom (Cvx/Vag) [ID] Comment . [facility] Comment on above: Sandra Chanel MD, P athologist Laboratory - Miscellaneous t estsOrdered By: Elaine Jones on 02-25-2025 Service comment (Unsp spec) [Interp] . . [facility] MCV (mean corpuscular volume ) determinationOrdered By: Elaine Jones on 02-25-2025 MCV (RBC) [Entitic vol] 76.7 fL Low 81-99 [facility] Mean corpuscular hemoglobin (MCH) determinationOrdered By: Elaine Jones on 02-25-2025 MCH (RBC) [Entitic mass] 24.6 pg Low 27.0-32.0 [facility] Mean corpuscular hemoglobin concentration (MCHC) determinationOrdered By: Elaine Jones on 02-25-2025 MCHC (RBC) [Mass/Vol] 32.0 g/dL 32-36 [facility] Mean platelet volume determi nationOrdered By: Elaine Jones on 02-25-2025 Platelet mean volume (Bld) [Entitic vol] 9.1 fL 6.2-12.0 [facility] Monocyte percentageOrdered B y: Elaine Jones on 02-25-2025 Monocytes/100 WBC (Bld) 6.0 % 0-10 [facility] Neutrophil percentageOrdered By: Elaine Jones on 02-25-2025 Neutrophils/100 WBC (Bld) 60.9 % 47-70 [facility] No Panel InformationOrdered By: Elaine Jones on 02-25-2025 Pap Smear Specimen Adequacy Comment . [facility] Comment on above: Satisfactory for daniel luation. Endocervical and/or squamous metaplasticcells (endocervical component) are present. Pathology report final diagnosis Narrative Comment . [facility] Comment on above: R87.610 HIV (1&2) Antibody Non-Reactive Nonreactive [facility] Comment on above: Non-ReactiveReactive Repeatedly reactive samples must be confirmed according to CDC recommended confirmatory algorithms. The subresults for either HIVAG or AHIV can be used as an aid in the selection of the confirmation algorithm for reactive samples.Send out specimens with Reactive results to [facility] for confirmation.Order the HIV antibody detection and differentiation: #[id number] Nucleated red blood cell per centageOrdered By: Elaine Jones on 02-25-2025 Nucleated RBC/100 WBC (Bld) [Ratio] 0 % 0-5 [facility] Die Repairer Stamping Office Visit Reporton 02-25-2025 Die Repairer Stamping Office Visit Report Normal [facility] Platelet countOrdered By: Keagan Jones on 02-25-2025 Platelets (Bld) [#/Vol] 291 10*3/uL 150-450 [facility] Potassium measurement (mass/ volume)Ordered By: Elaine Jones on 02-25-2025 Potassium (Unsp spec) [Mass/Vol] 4.8 mmol/L 3.3-5.1 [facility] RBC Auto (Bld) [#/Vol]Ordere d By: Elaine Jones on 02-25-2025 RBC (Bld) [#/Vol] 4.60 10*6/uL 4.2-5.4 [facility] Serum creatinine measurement (mass/volume)Ordered By: Elaine Jones on 02-25-2025 Creatinine [Mass/Vol] 0.70 mg/dL 0.70-1.20 [facility] Serum globulin measurementOr dered By: Elaine Jones on 02-25-2025 Globulin (S) [Mass/Vol] 3.4 g/dL 2.2-4.2 [facility] Serum glucose measurement (m ass/volume)Ordered By: Elaine Jones on 02-25-2025 Glucose [Mass/Vol] 355 mg/dL High 70-99 [facility] Serum or plasma alanine kang otransferase (ALT) measurementOrdered By: Elaine Jones on 02-25-2025 ALT [Catalytic activity/Vol] 11 U/L <35 [facility] Serum or plasma albumin nabil urement (mass/volume)Ordered By: Elaine Jones on 02-25-2025 Albumin [Mass/Vol] 4.1 g/dL 3.5-5.0 [facility] Serum or plasma albumin/glob ulin mass ratioOrdered By: Elaine Jones on 02-25-2025 Albumin/Globulin [Mass ratio] 1.2 {ratio} 0.9-2.4 [facility] Serum or plasma alkaline jesús sphatase measurementOrdered By: Elaine Jones on 02-25-2025 ALP [Catalytic activity/Vol] 100 U/L 35-104 [facility] Serum or plasma calcium nabil urement (mass/volume)Ordered By: Elaine Jones on 02-25-2025 Calcium [Mass/Vol] 9.4 mg/dL 7.6-11.0 [facility] Serum or plasma urea nitroge n measurement (mass/volume)Ordered By: Elaine Jones on 02-25-2025 Urea nitrogen [Mass/Vol] 18 mg/dL 4-19 [facility] Sodium levelOrdered By: Rajiv Jones on 02-25-2025 Sodium [Moles/Vol] 132 mmol/L Low 133-145 [facility] TSH DL <= 0.005 mIU/L QnOrde red By: Elaine Jones on 02-25-2025 TSH Qn 1.640 uIU/mL 0.300-4.200 [facility] Thyroid Stim Hormone (TSH)on 02-25-2025 TSH 1.640 uIU/mL Normal 0.300-4.200 [facility] Comment on above: Performed By: #### L 501.9520, L500.4050, L3890.6006, L501.9985, L100.0100 ####[facility] [address] [place], [place], [id number] Total proteinOrdered By: Walter Jones on 02-25-2025 Protein [Mass/Vol] 7.4 g/dL 5.9-8.4 [facility] White blood cell (WBC) count Ordered By: Elaine Jones on 02-25-2025 WBC (Bld) [#/Vol] 7.8 10*3/uL 4.4-11.0 [facility] Progress Noteson 12-25-2024 Medical Lab Technologist Authentication Interface Message Text [facility] Trauma/ Emergency General Surgery Clinic Staff Note BERNADETTE Faust [id number] CC: f/u for fistulous connection between percutaneous [...] [facility]O [facility] Trauma [phone] [facility] EGS [id number]/ [id number] [facility] Trauma/EGS [phone] Normal [facility] Telephone Encounteron 2024 Medical Lab Technologist Authentication Interface Message Text Situation: Calling requesting [...] to Gen Surgery pool Recommendation: Normal [facility] Progress Noteson 11-29-2024 Medical Lab Technologist Authentication Interface Message Text 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 DULCE MARIA LVM for Pt informing Pt of the instructions on how to request her medical records through [employer]. SW provided SW contact information and encouraged Pt to reach out with any questions/concerns. Plan: SW will remain available. Roxi Tellez, UPHOLSTERER APPRENTICE, CERTIFIED NEURODIAGNOSTIC TECHNOLOGIST Outpatient Configuration Developer [phone] Normal [facility] Progress Noteson 11-28-2024 Medical Lab Technologist Authentication Interface Message Text FACTORY LAY OUT ENGINEER Risk Score for Admission: 72% SW received [...] SS card and her certificate is in [place]. 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 SW encouraged Pt to continue waiting for her social security card, and then she will be able to get her certificate as well. Pt was agreeable. Pt reported she currently has an open case with DCFS in [place]. Pt shared the workers are accusing her of drug abuse because she tested positive for opiates after her section. 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 Pt reported she had a recent visit [...] Pt once DULCE MARIA receives an update. Roxi Tellez, UPHOLSTERER APPRENTICE, CERTIFIED NEURODIAGNOSTIC TECHNOLOGIST Outpatient Configuration Developer [phone] Normal [facility] BASIC METABOLIC PANELon 10-31 Anion gap [Moles/Vol] 18 mmol/L Normal 10-20 [facility] Comment on above: Performed By: #### H EPATIC, LIP, MG, CH8 ####[facility] [id number] [place], [address] Calcium [Mass/Vol] 9.3 mg/dL Normal 8.6-10.3 [facility] Comment on above: Performed By: #### H EPATIC, LIP, MG, CH8 ####S PATHOLOGY [id number] [place], [place], Chloride [Moles/Vol] 100 mmol/L Normal 98-107 [facility] Comment on above: Performed By: #### H EPATIC, LIP, MG, CH8 ####[facility] [id number] [place], [place], CO2 [Moles/Vol] 23 mmol/L Normal 21-31 [facility] Comment on above: Performed By: #### H EPATIC, LIP, MG, CH8 ####S PATHOLOGY [id number] [place], [place], Creatinine [Mass/Vol] 0.80 mg/dL Normal 0.60-1.[address] [facility] Comment on above: Performed By: #### H EPATIC, LIP, MG, CH8 ####S PATHOLOGY [id number] [place], [place], ESTIMATED GFR (CKD-EPI) 101 mL/min/1.73sqm Normal >=60 [facility] Comment on above: Result Comment: [...] Inclusion of Race in Diagnosing Kidney Disease. [place] [employer]ney Diseases 202;79(2):268-88.e1. 2. N Engl J Med 2020 Vol. 385 Issue 19 Pages 0169-2240 Performed By: #### H EPATIC, LIP, MG, CH8 ####[facility] [id number] [place], [place], Glucose [Mass/Vol] 125 mg/dL High 74-109 [facility] Comment on above: Performed By: #### H EPATIC, LIP, MG, CH8 ####[facility] [id number] [place], [place], Potassium [Moles/Vol] 4.8 mmol/L Normal 3.5-5.[address] [facility] Comment on above: Performed By: #### H EPATIC, LIP, MG, CH8 ####[facility] [id number] [place], [place], Sodium [Moles/Vol] 136 mmol/L Normal 136-[address] [facility] Comment on above: Performed By: #### H EPATIC, LIP, MG, CH8 ####[facility] [id number] [place], [place], Urea nitrogen [Mass/Vol] 21 mg/dL Normal 7-[address] [facility] Comment on above: Performed By: #### H EPATIC, LIP, MG, CH8 ####[facility] PATH[facility] [id number] [place], [place], Basic metabolic 2000 panelon 11-27-2024 Anion gap [Moles/Vol] 18 mmol/L 10 - 20 Met [facility] Calcium [Mass/Vol] 9.3 mg/dL 8.6 - 10. 3 mg/dL [facility] Chloride [Moles/Vol] 100 mmol/L 98 - 10 7 mmol/L [facility] CO2 [Moles/Vol] 23 mmol/L 21 - 31 mmol/L [facility] Creatinine [Mass/Vol] 0.8 mg/dL 0.60 - 1.20 mg/dL [facility] GFR/1.73 sq M.predicted CKD-EPI (S/P/Bld) [Vol rate/Area] 101 - PINF [facility] Comment on above: 2020 CKD EPI Equatio [...] Inclusion of Race in Diagnosing Kidney Disease. [place] Journal of Kidney Diseases 2021;79(2):268-88.e1. 2. N Engl J Med 2021 Vol. 385 Issue 19 Pages 7642-3793 Glucose [Mass/Vol] 125 mg/dL High 74 - [...] (Bld) [#/Vol] 0.08 10*3/uL Normal 0.00-0.[address] [facility] [facility] Comment on above: Performed By: #### C BCDSAT ####[facility] [id number] [place] [address], Basophils/100 WBC (Bld) 0.6 % Normal <=1.9 [facility] Comment on above: Performed By: #### C BCDSAT ####[facility] PATH[facility] [id number] [place] [address], Eosinophils (Bld) [#/Vol] 0.08 10*3/uL Normal 0.00-0.70 The [facility] Comment on above: Performed By: #### C BCDSAT ####[facility] [id number] [place] [address], Eosinophils/100 WBC (Bld) 0.6 % Normal 0.1-4.0 The [facility] Comment on above: Performed By: #### C BCDSAT ####S PATHOLOGY [id number] [place] [address], Erythrocyte distribution width (RBC) [Ratio] 17.4 % High 11.5-14.5 The [facility] Comment on above: Performed By: #### C BCDSAT ####[facility] PATH[facility] [id number] [place] [address], Hematocrit (Bld) [Volume fraction] 29.7 % Low 36.0-46.[address] [facility] Comment on above: Performed By: #### C TREVINAT ####[facility] [id number] [place], [place], Hemoglobin (Bld) [Mass/Vol] 9.8 g/dL Low 12.0-15.[address] [facility] Comment on above: Performed By: #### Mike ZHONGAT ####[facility] [id number] [place] [address], Lymphocytes (Bld) [#/Vol] 2.46 10*3/uL Normal 1.00-4.[address] [facility] Comment on above: Performed By: #### C TREVINAT ####[facility] [id number] [place] [address], Lymphocytes/100 WBC (Bld) 18.8 % Low 24.0-44.0 The [facility] Comment on above: Performed By: #### Mike ZHONGAT ####[facility] [id number] [place] [address], MCH (RBC) [Entitic mass] 26.5 pg Normal 26.0-34.[address] [facility] Comment on above: Performed By: #### Mike ZHONGAT ####[facility] [id number] [place] [address], MCHC (RBC) [Mass/Vol] 32.9 g/dL Normal 32.0-35.9 The [facility] Comment on above: Performed By: #### C TREVINAT ####[facility] [id number] [place] [address], MCV (RBC) [Entitic vol] 81 fL Normal 80-100 The [facility] Comment on above: Performed By: #### Mike ZHONGAT ####[facility] [id number] [place], [place], MONOCYTE DISTRIBUTION WIDTH 17 Normal <=20 [facility] Comment on above: Performed By: #### Mike ZHONGAT ####[facility] [id number] [place] [address], Monocytes (Bld) [#/Vol] 0.71 10*3/uL Normal 0.20-1.[address] [facility] Comment on above: Performed By: #### Mike SALCIDODSAT ####[facility] [id number] [place], [place], Monocytes/100 WBC (Bld) 5.4 % Normal 2.0-11.[address] [facility] Comment on above: Performed By: #### Mike ZHONGAT ####[facility] [id number] [place], [place], Neutrophils (Bld) [#/Vol] 9.76 10*3/uL High 1.50-8.[address] Comment on above: Performed By: #### Mike ZHONGAT ####[facility] [id number] [place], Neutrophils/100 WBC (Bld) 74.6 % Normal 31.0-76.[address] [facility] Comment on above: Performed By: #### Mike ZHONGAT ####[facility] [id number] [place] [address], Platelet mean volume (Bld) [Entitic vol] 6.5 fL Low 7.5-11.[address] [facility] Comment on above: Performed By: #### Mike ZHONGAT ####[facility] [id number] [place], [place], Platelets (Bld) [#/Vol] 913 10*3/uL High 150-[address] [facility] Comment on above: Performed By: #### Mike ZHONGAT ####[facility] [id number] [place], [place], RBC (Bld) [#/Vol] 3.68 10*6/uL Low 4.00-5.[address] [facility] Comment on above: Performed By: #### Mike BCDSAT ####[facility] [id number] [place], WBC (Bld) [#/Vol] 13.1 10*3/uL High 4.5-11.[address] [facility] Comment on above: Performed By: #### C BCDSAT ####[facility] [id number] [place], [address] [address] Abdomen and Pelvis W cont rast IVOrdered By: Sb Alfredo on 11-27-2024 CT DLP 869.86 (mGycm) [facility] h Work Phone: CT Series Abdomen,Abdomen,[facility]domen [facility] Work Phone: CTDI VOL 16.16 (mGy) [facility] Work Phone: PHANTOM TYPE IEC Body Dosimetry Phantom [facility] Work Phone: [facility] Work Phone: CT Abdomen and Pelvis [...] Evolving appearance of the uterus. MACRO: None [facility] Radiology Study observation (narrative) [facility] ED Provider Noteson 11-27-19 25 Medical Lab Technologist Authentication Interface Message Text Attestation signed by [...] Concern for perf bowl d/t drain output Line Rider: not needed - patient preferred language is Paraguayan. This is a 29 year old female [...] re-evaluation the abscess. Discussion with External Provider: Apartment Rental Agent from [employer] service recommends IR fistulagram and [...] complicate (more content not included)... Normal The [facility] [place] SINOGRAM FISTULAGRAMon FL SINOGRAM FISTULAGRAM EXAMINATION: [place] SINOGRAM FISTULAGRAM 11/27/2024 03:02 PM CLINICAL HISTORY: drain studey to evaluate for colon leak ASSOCIATED DIAGNOSIS: ORDERING PROVIDER: TUSHAR MONDRAGON TECHNOLOGISTS NOTE: COMPARISON: CT ABDOMEN/PELVIS W/ CONTRAST 11/19/2024 FLUOROSCOPIST: LUIS MANUEL LOUEI TIME: 1.1 Minutes INTRA-PROCEDURE MEDS: iohexol (OMNIPAQUE) 300 MG/ML injection 50 mL Route: Rectal FINDINGS: Abdominal Cafe Operator: There is a surgical drain in the right abdomen. Telemetry leads overlying the abdomen. Nonobstructive bowel gas pattern. 50 mL of Omnipaque was administered through the catheter/drain. There is opacification of the right colon. Finding conforms fistulous connection the right colon.. IMPRESSION: Findings consistent with colonic fistula. MACRO: None I have personally reviewed the images and agree with the resident's interpretation. Normal [facility] H AND Estuardo 11-27-2024 Medical Lab Technologist Authentication Interface Message Text Attestation signed by [...] weeks for drain removal. Cortes Meyers MD [facility] SURGERY EMERGENCY [...] an intra-abdominal abscess. Patient was transferred to [facility] on 11/15 for intra-abdominal abscess management. [...] migraine without aura and without status migrainosus (2016) complex migraine, negative MS workup, on ajovy [...] pen (more content not included)... Normal [facility] HEPATIC FUNCTION PANELon Albumin [Mass/Vol] 3.7 [...] Albumin [Mass/Vol] 3.7 g/dL Normal 3.5-5.7 The [facility] Comment on above: Performed By: #### C ANRBC #### [facility] [address] [facility] [place], [place] ALK 92 IU/L Normal 34-104 The [facility] Comment on above: Performed By: #### C ANRBC #### [facility] [address] [facility] [place], [place] ALT [Catalytic activity/Vol] 14 U/L Normal 7-52 The [facility] Comment on above: Performed By: #### C ANRBC #### [facility] Pathology [address] [facility] [place], [place] AST [Catalytic activity/Vol] 14 U/L Normal 13-39 The [facility] Comment on above: Performed By: #### C ANRBC #### [facility] Pathology [address] [facility] [place], [place] Bilirubin [Mass/Vol] 0.2 mg/dL Low 0.3-1.0 The [facility] Comment on above: Performed By: #### C ANRBC #### [facility] Pathology [address] [facility] [place], [place] DBIL < 0.05 Normal 0.03-0.18 The [facility] Comment on above: Performed By: #### C ANRBC #### [facility] Pathology [address] [facility] [place], [place] Protein [Mass/Vol] 7.0 g/dL Normal 6.0-8.3 The [facility] Comment on above: Performed By: #### C ANRBC #### [facility] [address] [facility] [place], [place] LIPASEon 11-27-2024 Interpretation and review of laboratory results Normal [facility] Lipase [Catalytic activity/Vol] 31 U/L [facility] LIP 31 IU/L Normal 11-82 The [facility] Comment on above: Performed By: #### C ANRBC #### [facility] Pathology [address] [facility] [place], [place] MAGNESIUMon 11-27-2024 Magnesium [Mass/Vol] 1.6 mg/dL Low 1.9 - 2 .7 mg/dL [facility] Magnesium [Mass/Vol] 1.6 mg/dL Low 1.9-2.7 The [facility] Comment on above: Performed By: #### C [facility] #### [facility] Pathology [address] [facility] [address] [place], [place] [address] No Panel Informationon 11-27 Interpretation and review of laboratory results Abnormal [facility] Progress Noteson 11-27-2024 Medical Lab Technologist Authentication Interface Message Text [facility] - STAFF NOTE CC: post-discharge follow-up HPI: Ms. BERNADETTE Faust is a 29 year old woman here for post-discharge follow-up. She was transferred on 11/15/2024 from [facility] to [facility] after placental abruption [...] fills with gas that she has to "burp" out of the bag. She is adamant [...] wa (more content not included)... Normal [facility] RF Unspecified body region V iews W contrast via fistulaon 11-27-2024 EXAMINATION: FL SINOGRAM FISTULAGRAM 11/27/2024 03:02 PM CLINICAL HISTORY: drain studey to evaluate for colon leak ASSOCIATED DIAGNOSIS: ORDERING PROVIDER: TUSHAR PANIAGUA NOTE: COMPARISON: CT ABDOMEN/PELVIS W/ CONTRAST 11/19/2024 FLUOROSCOPIST: LUIS MANUEL LOUIE TIME: 1.1 Minutes INTRA-PROCEDURE MEDS: iohexol (OMNIPAQUE) 300 MG/ML injection 50 mL Route: Rectal FINDINGS: Abdominal Cafe Operator: There is a surgical drain in the [...] colon leak ASSOCIATED DIAGNOSIS: ORDERING PROVIDER: TUSHAR PANIAGUA NOTE: COMPARISON: CT ABDOMEN/PELVIS W/ CONTRAST 11/19/2024 FLUOROSCOPIST: LUIS MANUEL LOUIE FLUORO TIME: 1.1 Minutes INTRA-PROCEDURE MEDS: iohexol (OMNIPAQUE) 300 MG/ML injection 50 mL Route: Rectal FINDINGS: Abdominal Cafe Operator: There is a surgical drain in the right abdomen. Telemetry leads overlying the abdomen. Nonobstructive bowel gas pattern. 50 mL of Omnipaque was administered through the catheter/drain. There is opacification of the right colon. Finding conforms fistulous connection the right colon.. IMPRESSION: Findings consistent with colonic fistula. MACRO: None I have personally reviewed the images and agree with the resident's interpretation. [facility] Radiology Study observation (narrative) [facility] RF Unspecified body region V iews W contrast via fistulaOrdered By: Bipin Shay on 11-27-2024 [facility] Work Phone: INSULIN ANTIBODIESon 025 Insulin Ab JEFFREY Qn (S) <0.4 NINF - 0.4 U/mL [facility] Address Site ID: [id number] Name: [employer] [facility], Address: [address] [place] [id number] Director: Elaina Michelle MD,PhD,ROSARIO [facility] AEROBIC WOUND CULTUREOrdered By: Pau Cuadra on 11-19-2024 Bacteria identified Cx Nom (Wound) Normal Skin tasha isolated [facility] Microscopic observation Gram stain Nom (Unsp spec) 4+ Polymorphonuclear Leukocytes [facility] Microscopic observation Gram stain Nom (Unsp spec) No Squamous Epithelial Cells seen [facility] Microscopic observation Gram stain Nom (Unsp spec) Mixed polymicrobial tasha [facility] Organisms observed i n a gram stain but do not demonstrate growth in culture may be non-viable due to interfering substances (antibiotics) or may be anaerobic. [facility] BASIC METABOLIC PANELon 10-31 Anion gap [Moles/Vol] 14 mmol/L Normal 10-20 The [facility] Comment on above: Performed By: #### 8 8842 #### NURSING GLUCOSE PROGRAM [address] [place], [address] Calcium [Mass/Vol] 8.3 mg/dL Low 8.6-10.[address] [facility] Comment on above: Performed By: #### 5 3100 #### NURSING GLUCOSE PROGRAM [address] [place], [address] Chloride [Moles/Vol] 100 mmol/L Normal 98-107 The [facility] Comment on above: Performed By: #### 8 2948 #### NURSING GLUCOSE PROGRAM [address] [place], [address] CO2 [Moles/Vol] 25 mmol/L Normal 21-31 The [facility] Comment on above: Performed By: #### 8 2948 #### NURSING GLUCOSE PROGRAM [address] [place], [address] Creatinine [Mass/Vol] 0.78 mg/dL Normal 0.60-1.20 The [facility] Comment on above: Performed By: #### 8 2948 #### NURSING GLUCOSE PROGRAM [address] [place], [address] ESTIMATED GFR (CKD-EPI) 104 mL/min/1.73sqm Normal >=60 [...] Inclusion of Race in Diagnosing Kidney Disease. [place] Journal of Kidney Diseases 2021;79(2):268-88.e1. 2. N Engl J Med 1 Vol. 385 Issue 19 Pages 8195-9758 Performed By: #### 8 2948 #### NURSING GLUCOSE PROGRAM [address] [place], [address] Glucose [Mass/Vol] 113 mg/dL High 74-109 The [facility] Comment on above: Performed By: #### 8 2948 #### NURSING GLUCOSE PROGRAM [address] [place], [address] Potassium [Moles/Vol] 4.2 mmol/L Normal 3.5-5.0 The [facility] Comment on above: Performed By: #### 8 2948 #### NURSING GLUCOSE PROGRAM [address] [place], [address] Sodium [Moles/Vol] 135 mmol/L Low 136-145 The [facility] Comment on above: Performed By: #### 8 2948 #### NURSING GLUCOSE PROGRAM [address] [place], [address] Urea nitrogen [Mass/Vol] 19 mg/dL Normal 7-25 The [facility] Comment on above: Performed By: #### 8 2948 #### NURSING GLUCOSE PROGRAM [address] [place], [address] Basic metabolic 2000 panelon 11-19-2024 Anion gap [...] Inclusion of Race in Diagnosing Kidney Disease. [place] Journal of Kidney Diseases 2021;79(2):268-88.e1. 2. N Engl J Med 1 Vol. 385 Issue 19 Pages 4585-1427 Glucose [Mass/Vol] 113 mg/dL High 74 - 109 mg/dL [facility] Potassium [Moles/Vol] 4.2 mmol/L 3.5 - 5.0 mmol/L [facility] Sodium [Moles/Vol] 135 mmol/L Low 136 - 145 mmol/L [facility] Urea nitrogen [Mass/Vol] 19 mg/dL 7 - 25 mg/dL [facility] CBC panel Auto (Bld)Ordered By: Gisel Gr on 11-19-2024 Erythrocyte distribution width (RBC) [Ratio] 17.1 % High 11.5 - 14.5 % [facility] Hematocrit (Bld) [Volume fraction] 31.4 % Low 36.0 - 46.0 % [facility] Hemoglobin (Bld) [Mass/Vol] 10 g/dL Low 12.0 - 15.0 g/dL [facility] Interpretation and review of laboratory results Abnormal [facility] MCH (RBC) [Entitic mass] 25.6 pg Low 26.0 - 34.0 pg [facility] MCHC (RBC) [Mass/Vol] 31.8 g/dL Low 32.0 - 35.9 g/dL [facility] MCV (RBC) [Entitic vol] 81 fL 80 - 100 fL [facility] Platelet mean volume (Bld) [Entitic vol] 5.9 fL Low 7.5 - 11.2 fL [facility] Platelets (Bld) [#/Vol] 566 10*3/uL High 150 - 400 K/uL [facility] RBC (Bld) [#/Vol] 3.9 10*6/uL Low [facility] WBC (Bld) [#/Vol] 10.8 10*3/uL 4.5 - 11.5 K/uL [facility] COMPLETE BLOOD COUNTon 11-19 Erythrocyte distribution width (RBC) [Ratio] 17.1 % High 11.5-14.5 [facility] Comment on above: Performed By: #### C BC #### S PATHOLOGY LABORATORY [address] [place] [address], Hematocrit (Bld) [Volume fraction] 31.4 % Low 36.0-46.0 The [facility] Comment on above: Performed By: #### C BC #### S PATHOLOGY LABORATORY [address] [place] [address], Hemoglobin (Bld) [Mass/Vol] 10.0 g/dL Low 12.0-15.0 The [facility] Comment on above: Performed By: #### C BC #### S PATHOLOGY LABORATORY [address] [place] [address], MCH (RBC) [Entitic mass] 25.6 pg Low 26.0-34.0 The [facility] Comment on above: Performed By: #### C BC #### S PATHOLOGY LABORATORY [address] [place], [place], MCHC (RBC) [Mass/Vol] 31.8 g/dL Low 32.0-35.[address] [facility] Comment on above: Performed By: #### C BC #### S PATHOLOGY LABORATORY [address] [place], [place], MCV (RBC) [Entitic vol] 81 fL Normal 80-[address] [facility] Comment on above: Performed By: #### C BC #### S PATHOLOGY LABORATORY [address] [place], [place], Platelet mean volume (Bld) [Entitic vol] 5.9 fL Low 7.5-11.2 The [facility] Comment on above: Performed By: #### C BC #### S PATHOLOGY LABORATORY [address] [place], [place], Platelets (Bld) [#/Vol] 566 10*3/uL High 150-[address] [facility] Comment on above: Performed By: #### C BC #### [facility] [address] [place], [place], RBC (Bld) [#/Vol] 3.90 10*6/uL Low 4.00-5.20 [facility] Comment on above: Performed By: #### C BC #### S PATHOLOGY LABORATORY [address] [place], [place], WBC (Bld) [#/Vol] 10.8 10*3/uL Normal 4.5-11.[address] [facility] Comment on above: Performed By: #### C BC #### S PATHOLOGY LABORATORY [address] [place], [place], CT ABDOMEN/PELVIS W/ CONTRAS Ton 11-19-2024 CT [...] right upper quadrant mesentery, likely reactive, with account executive sales representative node measuring 7 mm in short [...] in this study. MACRO: None Normal [facility] CT Abdomen and Pelvis W cont rast IVOrdered By: Orin Jones on 11-19-2024 CT DLP 619.7 (mGy.cm) [employer] h Work Phone: CT Series Abdomen [facility] Work Phone: CTDI VOL 13.4 (mGy) [facility] Work Phone: PHANTOM TYPE IEC Body Dosimetry Phantom [facility] Work Phone: [facility] Work Phone: CT Abdomen and Pelvis W [...] right upper quadrant mesentery, likely reactive, with account executive sales representative node measuring 7 mm in short [...] right upper quadrant mesentery, likely reactive, with account executive sales representative node measuring 7 mm in short [...] to assess in this study. MACRO: None [facility] Radiology Study observation (narrative) [facility] CT Guidance for drainage of abscess and placement of drainage catheter of Unspecified body regionOrdered By: Chica Andres on 11-19-2024 CT DLP 606.28 (mGy.cm) [facility] Work Phone: CT Series Topogram,Topogram,i- SPI RAL,i-Sequence [facility] Work Phone: CTDI VOL 0.03 (mGy),0.03 (mGy),25.59 (mGy),42.28 (mGy) [facility] Work Phone: PHANTOM TYPE IEC Body Dosimetry Phantom,IEC Body Dosimetry Phantom,IEC Body Dosimetry Phantom,IEC Body Dosimetry Phantom [facility] Work Phone: [facility] Work Phone: CT Guidance for drainage [...] sterile fashion. Under CT guidance, a 5 Kyrgyz Yueh catheter was advanced into the right lower quadrant collection via a right anterolateral approach. A 0.035 Amplatz wire was advanced through the catheter, with subsequent removal of the catheter and serial dilatations over the wire. A 12 Kyrgyz drainage catheter was then advanced over the [...] IMPRESSION: Technically successful placement of a 12 Kyrgyz pigtail catheter into a right lower quadrant fluid collection. OF NOTE, PREPROCEDURAL IMAGING IS HIGHLY CONCERNING FOR COLONIC PERFORATION. MACRO: None I have personally reviewed the images and agree with the resident's interpretation. [facility] GLUCOSE, FINGERSTICK-IN OFFI CEon 11-19-2024 Glucose [Mass/Vol] 67 mg/dL Low 74 - 109 mg/dL [facility] Comment on above: Notified BENTLEY POLLOCK MD Follow Protocol Will Repeat Test Interpretation and review of laboratory results Abnormal [facility] Glucose [Mass/Vol] 67 mg/dL Low 74-[address] [facility] Comment on above: Result Comment: Genoveva nunez RN, APN, MD Follow Protocol Will Repeat Test Performed By: #### T S #### [facility] [address] [place], [address] Glucose [Mass/Vol] 248 mg/dL High 74 - 109 mg/dL [facility] Comment on above: Notified BENTLEY POLLOCK MD Interpretation and review of laboratory results Abnormal [facility] Glucose [Mass/Vol] 248 mg/dL High 74-109 The [facility] Comment on above: Result Comment: Genoveva nunez RN, APN, MD Performed By: #### 8 2948 #### [facility] GLUCOSE PROGRAM [address] [place], [address] Glucose [Mass/Vol] 126 mg/dL High 74 - 109 mg/dL [facility] Comment on above: Follow Protocol Interpretation and review of laboratory results Abnormal [facility] Glucose [Mass/Vol] 126 mg/dL High 74-109 [facility] Comment on above: Result Comment: Foll ow Protocol Performed By: #### 8 0726 ####NURSING GLUCOSE [id number] [place], [address] HEPATIC FUNCTION PANELon Albumin [Mass/Vol] 2.8 g/dL Low 3.5 - 5.7 g/dL [facility] ALP [Catalytic activity/Vol] 148 U/L High [facility] ALT [Catalytic activity/Vol] 11 U/L [facility] AST [Catalytic activity/Vol] 19 U/L [facility] Bilirubin [Mass/Vol] 0.2 mg/dL Low 0.3 - 1 .0 mg/dL [facility] Bilirubin.direct [Mass/Vol] mg/dL 0.03 - 0.18 mg/dL [facility] Protein [Mass/Vol] 5.7 g/dL Low 6.0 - 8.3 g/dL [facility] Albumin [Mass/Vol] 2.8 g/dL Low 3.5-5.7 [facility] Comment on above: Performed By: #### 8 1781 #### NURSING GLUCOSE PROGRAM [address] [place], [address] ALK 148 IU/L High 34-[address] [facility] Comment on above: Performed By: #### 8 6225 #### NURSING GLUCOSE PROGRAM [address] [place], [address] ALT [Catalytic activity/Vol] 11 U/L Normal 7-[address] [facility] Comment on above: Performed By: #### 8 4022 #### NURSING GLUCOSE PROGRAM [address] [place], [address] AST [Catalytic activity/Vol] 19 U/L Normal 13-39 [facility] Comment on above: Performed By: #### 8 7035 #### NURSING GLUCOSE PROGRAM [address] [place], [address] Bilirubin [Mass/Vol] 0.2 mg/dL Low 0.3-1.0 [facility] Comment on above: Performed By: #### 8 1066 #### NURSING GLUCOSE PROGRAM [address] [place], [address] DBIL < 0.05 Normal 0.03-0.18 The [facility] Comment on above: Performed By: #### 8 2948 #### NURSING GLUCOSE PROGRAM [address] [place], [address] Protein [Mass/Vol] 5.7 g/dL Low 6.0-8.3 [facility] Comment on above: Performed By: #### 8 2948 #### NURSING GLUCOSE PROGRAM [address] [place], [address] LACTIC ACIDOrdered By: Chris Diaz on 11-19-2024 Interpretation and review of laboratory results Normal [facility] Lactate [Moles/Vol] 1 mmol/L 0.5 - 1. 6 mmol/L [facility] This test was developed, and its performance characteristics determined by the Department of Pathology of The [facility]. It has not been cleared or approved by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 (Bld) [#/Vol] 3.85 10*6/uL Low [facility] WBC (Bld) [#/Vol] 15.6 10*3/uL High 4.5 - 11.5 K/uL [facility] CONFIRMATION ABO/RHon 2024 [facility] ABO and Rh group Nom (Bld) Blood group A Rh(D) positive Normal The [facility] Comment on above: Performed By: #### A REILLY ####S PATHOLOGY [id number] [place], [address] CT ABDOMEN/PELVIS W/ CONTRAS Ton 11-15-2024 CT [...] s (more content not included)... Normal The [facility] CT Abdomen and Pelvis W cont [...] in thickness w (more content not included)... [facility] Radiology Study observation (narrative) [facility] CT Abdomen and Pelvis W cont rast IVOrdered By: Rogelio Benito on 11-15-2024 [facility]: CT Guidance for drainage of abscess and placement of drainage catheter of Unspecified body regionon 11-15-2024 Radiology Study observation (narrative) [facility] Care Plan Noteon 11-15-2024 Medical Lab Technologist Authentication Interface Message Text Problem: Routine Care: [...] Jeff Renteria RN Outcome: Progressing Normal [facility] Medical Lab Technologist Authentication Interface Message Text Problem: Routine Care: [...] will be met Outcome: Progressing Normal [facility] Medical Lab Technologist Authentication Interface Message Text Problem: Routine Care: [...] for monitoring in High risk. Normal [facility] Consultson 11-15-2024 Medical Lab Technologist Authentication Interface Message Text SW consult received for: Substance abuse resources/interventions SW attempted to meet with pt. Unable to meet as pt was out for CT scan. Will follow up later today. Addendum: 3:20pm SW attempted to meet with pt again. Pt was going off the floor for a procedure. Genesis LIMON, [facility] Social Work [phone] Normal The [facility] Interface Message Text PSYCHIATRY CONSULT LIAISON NOTE PROVIDER REQUESTING CONSULT: Adelfo Nice MD [facility]3-163/1 Reason for Consult: "hx Bipolar, reported medications and chart meds discrepancy" (medication reconciliation) IDENTIFICATION: BERNADETTE Faust is a 29 year old White female HISTORY OF PRESENT ILLNESS Hospital Course: A 29-year-old at postoperative day 9 following an emergent at 34 weeks for placental abruption and preeclampsia, presents with acutely worsening right upper quadrant pain after transfer from [facility]. Chart reviewed, and from a medical perspective, [...] The patient follows with a psychiatrist in [place], [place], who prescribes lamotrigine 200 mg daily [...] patient states she splits her time between [place] and [place], does not currently have a psychiatric provider in [place], but has been attempting to establish care there. Her prescriptions are written and filled in [place]. She denies suicidal ideation, homicidal ideation, or auditory/visual hallucinations. She reports no difficulties with sleep, appetite, or medication side effects. PRN's Received: - none for agitation or anxiety PER CHART REVIEW [facility] 11/06/24 - 11/09/24 The patient was hospitalized at [facility] from November 06 to November 09, 2024, [...] (Ir) 5 Mg Tablet 28.00 7 Sh Mar [id number] Banda ([phone]) 0 PSYCHIATRIC REVIEW OF SYSTEMS: As per HPI Suicide Assessment Tool C-SSRS [place]-Suicide Severity Rating Scale Able to complete [place]-Suicide Severity Rating Scale with Patient?: Yes 1) Wish to be : No 2) Current suicidal thoughts: No 6) C-SSRS Suicidal Behavior: No Risk of Suicide: Negative Screen Did patient score moderate or high risk on the C-SSRS?: No SAFE-T PSYCHIATRIC HISTORY: Psychiatric diagnoses: bipolar disorder (self reported), ADHD, anxiety Outpatient psychiatrist/counselor: Leonila Junior, [place] (self reported) Inpatient psychiatric admissions (when/why?): none [...] current occupational status: employed 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 Normal [facility] Medical Lab Technologist Authentication Interface Message Text Attestation signed by [...] MD Maternal Medicine, Complex Family Planning Pager: [phone] FLASH RANGING CREWMEMBER CONSULT NOTE 11/15/24 6:53 AM PGY-4 S: [...] Intake/Output Summary (Last 24 hours) at 11/15/2024 0640 Last data filed at 11/15/2024 0600 Gross [...] Encourage SCDs and ambulation Juany Muhammad MD FACTORY LAY OUT ENGINEER PGY-4 Normal [facility] Medical Lab Technologist Authentication Interface Message Text Attestation signed by [...] bot- osei- baby still in NICU in [facility]). She was worked up at an OSH for RUQ abdominal pain and found to have a RUQ fluid collection con cering for an intra-abdominal abscess. She was transferred to [facility] for possible IR drainage of this [...] scan) 3. Risk -High -decision regarding hospitalization [facility] Department of Surgery EMERGENCY GENERAL SURGERY CONSULT NOTE BERNADETTE Faust [id number] Reason for Consultation: Abdominal abscess HPI BERNADETTE [...] yea (more content not included)... Normal [facility] Diabetes tracking panelon Average glucose Estimated from glycated hemoglobin (Bld) [Mass/Vol] 240 mg/dL [facility] HbA1c (Bld) [Mass fraction] 10 % High 4.0 - 5.6 % [facility] Interpretation and review of laboratory results Abnormal [facility] FIBRINOGENon 11-15-2024 Fibrin+Fibrinogen fragments (S) [Mass/Vol] 793 mg/dL High 200 - 500 mg/dL [facility] Interpretation and review of laboratory results Abnormal [facility] FIBRINOGEN 793 mg/dL High 200-500 [facility] Comment on above: Performed By: #### A PTT, FIBRINOGEN, PT ####[facility] [id number] [place], [address] GLUCOSE, FINGERSTICK-IN OFFI CEon 11-15-2024 Glucose [Mass/Vol] 150 mg/dL High 74 - 109 mg/dL [facility] Comment on above: Follow Protocol Notified BENTLEY POLLOCK MD Interpretation and review of laboratory results Abnormal [facility] Glucose [Mass/Vol] 150 mg/dL High 74-109 [facility] Comment on above: Result Comment: Foll ow Protocol Notified BENTLEY POLLOCK MD Performed By: #### 8 2948 #### NURSING GLUCOSE PROGRAM [address] [place], [address] Glucose [Mass/Vol] 83 mg/dL 74 - 109 mg/dL [facility] Interpretation and review of laboratory results Normal [facility] Glucose [Mass/Vol] 83 mg/dL Normal 74-[address] [facility] Comment on above: Performed By: #### C ANRBC #### [facility] [address] [place] [address] [place], [place] [address] Glucose [Mass/Vol] 137 mg/dL High 74 - 109 mg/dL [facility] Interpretation and review of laboratory results Abnormal [facility] Glucose [Mass/Vol] 137 mg/dL High 74-[address] [facility] [facility] Comment on above: Performed By: #### T S #### [facility] [address] [place], [address] Glucose [Mass/Vol] 213 mg/dL High 74 - 109 mg/dL [facility] Interpretation and review of laboratory results Abnormal [facility] Glucose [Mass/Vol] 213 mg/dL High 74-[address] [facility] [facility] Comment on above: Performed By: #### C ANRBC #### [facility] [address] [place] [address] [place], [place] [address] Glucose [Mass/Vol] 128 mg/dL High 74 - 109 mg/dL [facility] Interpretation and review of laboratory results Abnormal [facility] Glucose [Mass/Vol] 128 mg/dL High 74-[address] [facility] Comment on above: Performed By: #### 8 2948 ####NURSING GLUCOSE [id number] [place], [address] Glucose [Mass/Vol] 198 mg/dL High 74 - 109 mg/dL [facility] Interpretation and review of laboratory results Abnormal [facility] Glucose [Mass/Vol] 198 mg/dL High 74-[address] [facility] Comment on above: Performed By: #### 8 2948 ####NURSING GLUCOSE [id number] [place], [address] Glucose [Mass/Vol] 203 mg/dL High 74 - 109 mg/dL [facility] Comment on above: Follow Protocol Interpretation and review of laboratory results Abnormal [facility] Glucose [Mass/Vol] 203 mg/dL High 74-[address] [facility] Comment on above: Result Comment: Arnol ow Protocol Performed By: #### 8 2948 #### NURSING GLUCOSE PROGRAM [address] [place], [address] Glucose [Mass/Vol] 225 mg/dL High 74 - 109 mg/dL [facility] Comment on above: Follow Protocol Notified BENTLEY POLLOCK MD Interpretation and review of laboratory results Abnormal [facility] Glucose [Mass/Vol] 225 mg/dL High 74-[address] [facility] Comment on above: Result Comment: Foll ow Protocol Notified BENTLEY POLLOCK MD Performed By: #### 8 2948 #### NURSING GLUCOSE PROGRAM [address] [place], [address] HEMOGLOBIN A1Con 11-15-2024 Glucose [Mass/Vol] 240 mg/dL Normal [facility] Comment on above: Performed By: #### 8 2948 #### NURSING GLUCOSE PROGRAM [address] [place], [address] HbA1c (Bld) [Mass fraction] 10.0 % High 4.0-5.[address] [facility] Comment on above: Performed By: #### 8 2948 #### NURSING GLUCOSE PROGRAM [address] [place], [address] HEPATIC FUNCTION PANELon Albumin [Mass/Vol] 2.4 g/dL [...] 8 2948 #### NURSING GLUCOSE PROGRAM [address] [place], [address] ALK 133 IU/L High 34-104 [facility] Comment on above: Performed By: #### 8 2948 #### NURSING GLUCOSE PROGRAM [address] [place], [address] ALT [Catalytic activity/Vol] 11 U/L Normal 7-52 [facility] Comment on above: Performed By: #### 8 2948 #### NURSING GLUCOSE PROGRAM [address] [place], [address] AST [Catalytic activity/Vol] 15 U/L Normal 13-39 [facility] Comment on above: Performed By: #### 8 2948 #### NURSING GLUCOSE PROGRAM [address] [place], [address] Bilirubin [Mass/Vol] 0.3 mg/dL Normal 0.3-1.0 [facility] Comment on above: Performed By: #### 8 2948 #### NURSING GLUCOSE PROGRAM [address] [place], [address] Bilirubin.direct [Mass/Vol] 0.07 mg/dL Normal 0.03-0.[address] [facility] Comment on above: Performed By: #### 8 2948 #### NURSING GLUCOSE PROGRAM [address] [place], [address] Protein [Mass/Vol] 5.3 g/dL Low 6.0-8.[address] [facility] Comment on above: Performed By: #### 8 2948 #### NURSING GLUCOSE PROGRAM [address] [place], [address] HIV 1 and 2 Ab and HIV 1 p24 Ag panel IAon 11-15-2024 HIV 1+2 Ab+HIV1 p24 Ag IA Ql Non-Reactive Non-Reactive [facility] Comment on above: No laboratory eviden ce for HIV Infection. Negative result does not rule out acute HIV infection. If acute HIV infection is suspected, recommend ordering an HIV-1 RNA quanitification test. Interpretation and review of laboratory results Normal [facility] HIV Information: [place] Rev. code 3701.243(E): This information has been [...] HIV AG-AB SCREEN Non-Reactive Normal Non-Reactive The [facility] Comment on above: Order Comment: HIV I nformation: ???[place] Rev. code 3701.243(E):This information has been disclosed [...] test. Performed By: #### 8 2948 #### [address], [address] HIV-1 RNA PCR, QUANTITATIVEo n 11-15-2024 HIV 1 RNA SAE+probe [#/Vol] Not detected [facility] This test is perform ed by a quantitative polymerase chain reaction (PCR) method (david 5800 System HIV-1, [employer] [place], [place].) that is intended [...] HIV-1 RNA for Nucleic Acid-Based Techniques (FABIÁN) ([facility] 97/656). [facility] INSULINon 11-15-2024 Insulin Free Qn 5.2 [facility] Interpretation and review of laboratory results Normal [facility] INSUL 5.2 mIU/L Normal 2.0-25.0 The [facility] Comment on above: Performed By: #### 8 2948 #### NURSING GLUCOSE PROGRAM [address] [place], [address] INSULIN ANTIBODIESon 025 INSULIN ANTIBODY <0.4 Normal <0.4 [facility] Comment on above: Order Comment: Pennie mccoy Agency Address Site ID: [id number] Name: [employer] [facility], Address: [address] [place] [id number] Director: Elaina Michelle MD,PhD,ROSARIO Performed By: #### 8 2948 #### NURSING GLUCOSE PROGRAM [address] [place], [address] LACTIC ACIDOrdered By: Danelle Vieira on 11-15-2024 Interpretation and review of laboratory results Normal [facility] Lactate [Moles/Vol] 1.3 mmol/L 0.5 - 1. 6 mmol/L [facility] This test was developed, and its performance characteristics determined by the Department of Pathology of [facility]. It has not been cleared or approved by the FDA. This test is used for clinical purposes only. [facility] LACTIC ACIDon 11-15-2024 CR LACT 1.3 mmol/L Normal 0.5-1.6 [facility] Comment on above: Order Comment: This test was developed, and its performance characteristics determined by the Department of Pathology of [facility]. It has not been cleared or approved by the FDA. This test is used for clinical purposes only. Performed By: #### L ACT ####[facility] PATH[facility] [id number] [place], [address] LDHon 11-15-2024 LDH [Catalytic activity/Vol] 252 U/L [facility] LD 252 IU/L Normal 140-271 [facility] Comment on above: Performed By: #### 8 2948 #### NURSING GLUCOSE PROGRAM [address] [place], [address] Laboratory - Blood bankon ABO and Rh [...] Few [facility] ANC 11.61 K/uL Normal [facility] Comment on above: Performed By: #### Mike GARRETT MDIFF ####[facility] [id number] [place], [place], BANDS % BY MANUAL COUNT 3 % Normal <=[address] [facility] Comment on above: Performed By: #### SRIKANTH FORBES ####[facility] PATH[facility] [id number] [place], BANDS ABS BY MANUAL COUNT 0.44 K/uL High <0.01 [facility] Comment on above: Performed By: ###SRIKANTH MEI ####[facility] PATH[facility] [id number] [place], [place], MESERET CELLS Few Normal The [facility] Comment on above: Performed By: #### SRIKANTH FORBES ####[facility] PATH[facility] [id number] [place], CELLS COUNTED TOTAL # IN BLOOD 100 Normal [facility] Comment on above: Performed By: #### SRIKANTH FORBES ####[facility] PATH[facility] [id number] [place], FRAGMENTED RBC Few Normal [facility] Comment on above: Performed By: #### SRIKANTH FORBES ####S PATHOLOGY [id number] [place], LYMPHOCYTES % BY MANUAL COUNT 14.0 % Low 24.0-44.0 [facility] Comment on above: Performed By: ###SRIKANTH MEI ####S PATHOLOGY [id number] [place] [address], LYMPHOCYTES ABS BY MANUAL COUNT 2.03 K/uL Normal 1.00-4.80 [facility] Comment on above: Performed By: ###SRIKANTH MEI ####S PATHOLOGY [id number] [place], MONOCYTES % BY MANUAL COUNT 6.0 % Normal 2.0-11.0 [facility] Comment on above: Performed By: ###SRIKANTH MEI ####S PATHOLOGY [id number] [place], MONOCYTES ABS BY MANUAL COUNT 0.87 K/uL Normal 0.20-1.00 [facility] Comment on above: Performed By: ###SRIKANTH MEI ####S PATHOLOGY [id number] [place], NEUTROPHILS % BY MANUAL COUNT 77.0 % High 31.0-76.0 [facility] Comment on above: Performed By: ###SRIKANTH MEI ####S PATHOLOGY [id number] [place] [address] [place], NEUTROPHILS ABS BY MANUAL COUNT 11.17 K/uL High 1.50-8.[address] [facility] Comment on above: Performed By: #### SRIKANTH FORBES ####[facility] PATHOLOGY [id number] [place] [address], OVALOCYTES Few Normal [facility] Comment on above: Performed By: #### SRIKANTH FORBES ####S PATHOLOGY [id number] [place], SPHEROCYTES Few Normal The [facility] Comment on above: Performed By: #### SRIKANTH FORBES ####S PATHOLOGY [id number] [place], STOMATOCYTES Few Normal [facility] Comment on above: Performed By: #### SRIKANTH FORBES ####S PATHOLOGY [id number] [place] [address], Anisocytosis Ql (Bld) Slight [facility] Counted Total (Bld) [#] 100 {cells} [...] 81 % High 31.0 - 76.0 % [facility] Ovalocytes LM Ql (Bld) Few Fl [facility] ANISOCYTOSIS Slight Normal [facility] Comment on above: Performed By: #### T S #### S PATHOLOGY LABORATORY [address] [place] [address], CELLS COUNTED TOTAL # IN BLOOD [address] [facility] Comment on above: Performed By: #### T S #### S PATHOLOGY LABORATORY [address] [place] [address], EOSINOPHILS % BY MANUAL COUNT 1.0 % Normal 0.1-4.[address] [facility] Comment on above: Performed By: #### T S #### [facility] [address] [place] [address], EOSINOPHILS ABS BY MANUAL COUNT 0.16 K/uL Normal 0.00-0.[address] [facility] Comment on above: Performed By: #### T S #### [facility] [address] [place] [address], LYMPHOCYTES % BY MANUAL COUNT 15.0 % Low 24.0-44.0 [facility] Comment on above: Performed By: #### T S #### [facility] [address] [place] [address], LYMPHOCYTES ABS BY MANUAL COUNT 2.34 K/uL Normal 1.00-4.80 [facility] Comment on above: Performed By: #### T S #### [facility] [address] [place] [address], MONOCYTES % BY MANUAL COUNT 3.0 % Normal 2.0-11.0 [facility] Comment on above: Performed By: #### T S #### [facility] [address] [place] [address], MONOCYTES ABS BY MANUAL COUNT 0.47 K/uL Normal 0.20-1.00 [facility] Comment on above: Performed By: #### T S #### S PATHOLOGY LABORATORY [address] [place] [address], NEUTROPHILS % BY MANUAL COUNT 81.0 % High 31.0-76.0 The [facility] Comment on above: Performed By: #### T S #### S PATHOLOGY LABORATORY [address] [place] [address], NEUTROPHILS ABS BY MANUAL COUNT 12.64 K/uL High 1.50-8.00 [facility] Comment on above: Performed By: #### T S #### [facility] [address] [place], [place], OVALOCYTES Few Normal [facility] Comment on above: Performed By: #### T S #### [facility] [address] [place], [place], No Panel InformationOrdered By: Denzel Begum on 11-15-2024 Interpretation and review of laboratory results Abnormal [facility] No Panel InformationOrdered By: Antonia Akbar on 11-15-2024 Interpretation and review of laboratory results Abnormal [facility] No Panel Informationon 11-15 Interpretation and review of laboratory results Normal [facility] Interpretation and review of laboratory results Abnormal [facility] Interpretation and review of laboratory results Normal [facility] PARTIAL THROMBOPLASTIN TIMEo n 11-15-2024 aPTT Coag (Bld) [Time] [address] [facility] aPTT Coag (Bld) [Time] 27 s Normal 25-37 Th e [facility] Comment on above: Performed By: #### A PTT, FIBRINOGEN, PT ####S PATHOLOGY [id number] [place], [place], PROTHROMBIN TIME AND INRon 0 11-15-2024 INR Coag (PPP) [Relative time] 1.04 {INR} 0.90 - 1.10 [facility] PT Coag (PPP) [Time] 11.7 s [facility] INR Coag (PPP) [Relative time] 1.04 {INR} Normal 0.90-1.10 [facility] Comment on above: Performed By: #### A PTT, FIBRINOGEN, PT ####[facility] PATH[facility] [id number] [place], [place], PT Coag (PPP) [Time] 11.7 s Normal 9.7-12.9 [facility] Comment on above: Performed By: #### A PTT, FIBRINOGEN, PT ####[facility] PATHOLOGY [id number] [place], [place], Progress Noteson 11-15-2024 Medical Lab Technologist Authentication Interface Message Text Upon patient leaving room with transport to interventional radiology, patient asked if someone could call support person and update them on "what's going on." Patient gave this nurse permission to share and discuss PHI with Samuel Perez at [phone]. If that is not the correct number patient suggested to try calling [phone] The above conversation was shared with Dr Muhammad. Normal [facility] Medical Lab Technologist Authentication Interface Message Text Attestation signed by [...] and Emergency General Surgery Department of Surgery [facility] ------- GENERAL INFORMATION ------ EMERGENCY GENERAL SURGERY NOTE Patient Name: BERNADETTE Faust Admission Date: 11/14/2024 Patient seen and examined on 11/15/2024 ----- INTERVAL HISTORY/EVENTS --- Background Narrative: Ms Faust is a 29 yo F with a hx of Type II DM and pre-eclampsia who underwent an emergent at 34 weeks for placental abruption (11/06- Baby foreign- osei- baby still in NICU in [facility]). She was worked up at an OSH for RUQ abdominal pain and found to have a RUQ fluid collection con cering for an intra-abdominal abscess. She was transferred to [facility] for possible IR drainage of this collection. Hospital Course/Procedures: [facility]: On exam [...] subsegment (more content not included)... Normal The [facility] Medical Lab Technologist Authentication Interface Message Text 0500: RN at bedside to perform blood cultures. Pt sates she wants someone to use an ultrasound because she has already been poked several times and does not want to be pin cushion." Pt showed RN her arms with several spots of bruising from previous IV attempts at the previous hospital. RN contacted L AND D vice president pharmacy to attempt, resident requested director of midwifery/staff midwife to attempt first. RN contacted rapid response team and was told there are three other pts ahead of her and to see if we could attempt them in the mean time. Pt refused director of midwifery/staff midwife to attempt without ultrasound. Kenan Carrasco MD notified of difficulty getting blood cultures. 0530: RN contacted L AND D vice president pharmacy to attempt after pt refused any attempt without ultrasound. Anesthesia came to bedside to attempt but was unsuccessful. Kenan Carrasco MD and Jeffrey Streeter MD notified. Okay to discontinue trying at this time and give the pt a break. RN will pass along to dayshift RN to attempt again later in the day. Normal The [facility] AntVoiceation Interface Message Text 0428: pts repeat blood sugar 198. Kenan Marc MD notified. No new orders at this time. Okay to use this blood sugar reading for fasting blood sugar reading as well. Per Kenan Carrasco MD Normal The [facility] Interface Message Text 0314: pt BS 206. 2 units of insulin lispro ordered. Will recheck BS 1 hour after administering. Normal The [facility] AntVoiceation Interface Message Text ACS Attending Attestation Teaching [...] foreign- osei- baby still in NICU in [facility]). She was worked up at an OSH for RUQ abdominal pain and found to have a RUQ fluid collection con cering for an intra-abdominal abscess. She was transferred to [facility] for possible IR drainage of this [...] Risk -High -decision regarding hospitalization Normal [facility] Progress Notes - NoteWritero n 11-15-2024 Medical Lab Technologist Authentication Interface Message Text Pt down to CT. S/P general surgery attending assessed pt. Normal [facility] TOX SCREEN W/CONFIRM - OB/GY Non 11-15-2024 ALCOHOL - TOX W/ CONF Negative Normal Cutoff: 10 [facility] Comment on above: Order Comment: Scree n results are reported as positive (at or above the cutoff) or negative (below the cutoff).The LC-MS/MS testing (if applicable) was developed and its performance characteristics determined by The [facility] in a manner consistent with CLIA requirements. This test has not been cleared or approved by the U.S. Food and Drug Administration; however, the FDA has determined that such clearance or approval is not necessary. Performed By: #### o bgyntox ####S PATHOLOGY [id number] [place], [place], AMPH CL Negative Normal Cutoff: 1000 [facility] Comment on above: Order Comment: Scree n results are reported as positive (at or above the cutoff) or negative (below the cutoff).The LC-MS/MS testing (if applicable) was developed and its performance characteristics determined by The [facility] in a manner consistent with CLIA requirements. This test has not been cleared or approved by the U.S. Food and Drug Administration; however, the FDA has determined that such clearance or approval is not necessary. Performed By: #### o bgyntox ####[facility] PATHOLOGY [id number] [place], [place], SOLA CL Negative Normal Cutoff: 200 [facility] Comment on above: Order Comment: Scree n results are reported as positive (at or above the cutoff) or negative (below the cutoff).The LC-MS/MS testing (if applicable) was developed and its performance characteristics determined by The [facility] in a manner consistent with CLIA requirements. This test has not been cleared or approved by the U.S. Food and Drug Administration; however, the FDA has determined that such clearance or approval is not necessary. Performed By: #### o bgyntox ####[facility] PATHOLOGY [id number] [place], [place], BENZO CL Negative Normal Cutoff: 200 [facility] Comment on above: Order Comment: Scree n results are reported as positive (at or above the cutoff) or negative (below the cutoff).The LC-MS/MS testing (if applicable) was developed and its performance characteristics determined by The [facility] in a manner consistent with CLIA requirements. This test has not been cleared or approved by the U.S. Food and Drug Administration; however, the FDA has determined that such clearance or approval is not necessary. Performed By: #### o bgyntox ####[facility] PATHOLOG[facility] [id number] [place], [place], COCAINE CL- TOX W/ CONF Negative Normal Cutoff: 300 [facility] Comment on above: Order Comment: Scree n results are reported as positive (at or above the cutoff) or negative (below the cutoff).The LC-MS/MS testing (if applicable) was developed and its performance characteristics determined by The [facility] in a manner consistent with CLIA requirements. This test has not been cleared or approved by the U.S. Food and Drug Administration; however, the FDA has determined that such clearance or approval is not necessary. Performed By: #### o bgyntox ####[facility] PATHOLOG[facility] [id number] [place], [place], FENTANYL Negative Normal Cutoff: 1 [facility] Comment on above: Order Comment: Scree n results are reported as positive (at or above the cutoff) or negative (below the cutoff).The LC-MS/MS testing (if applicable) was developed and its performance characteristics determined by The [facility] in a manner consistent with CLIA requirements. This test has not been cleared or approved by the U.S. Food and Drug Administration; however, the FDA has determined that such clearance or approval is not necessary. Performed By: #### o bgyntox ####[facility] PATHOLOG[facility] [id number] [place], HYDROMORPHONE CONFIRMATION Positive Abnormal Cutoff: 300 [facility] Comment on above: Order Comment: Scree n results are reported as positive (at or above the cutoff) or negative (below the cutoff).The LC-MS/MS testing (if applicable) was developed and its performance characteristics determined by The [facility] in a manner consistent with CLIA requirements. This test has not been cleared or approved by the U.S. Food and Drug Administration; however, the FDA has determined that such clearance or approval is not necessary. Performed By: #### o bgyntox ####S PATHOLOGY [id number] [place], [place], METH CL Negative Normal Cutoff: 300 [facility] Comment on above: Order Comment: Scree n results are reported as positive (at or above the cutoff) or negative (below the cutoff).The LC-MS/MS testing (if applicable) was developed and its performance characteristics determined by The [facility] in a manner consistent with CLIA requirements. This test has not been cleared or approved by the U.S. Food and Drug Administration; however, the FDA has determined that such clearance or approval is not necessary. Performed By: #### o bgyntox ####S PATHOLOGY [id number] [place], [place], MORPHINE CONFIRMATION Positive Abnormal Cutoff: 300 [facility] Comment on above: Order Comment: Scree n results are reported as positive (at or above the cutoff) or negative (below the cutoff).The LC-MS/MS testing (if applicable) was developed and its performance characteristics determined by The [facility] in a manner consistent with CLIA requirements. This test has not been cleared or approved by the U.S. Food and Drug Administration; however, the FDA has determined that such clearance or approval is not necessary. Performed By: #### o bgyntox ####[facility] PATHOLOG[facility] [id number] [place], [place], OPI CL Positive Abnormal Cutoff: 300 [facility] Comment on above: Order Comment: Scree n results are reported as positive (at or above the cutoff) or negative (below the cutoff).The LC-MS/MS testing (if applicable) was developed and its performance characteristics determined by The [facility] in a manner consistent with CLIA requirements. This test has not been cleared or approved by the U.S. Food and Drug Administration; however, the FDA has determined that such clearance or approval is not necessary. Performed By: #### o bgyntox ####[facility] PATHOLOG[facility] [id number] [place], [place], OXYCODONE Negative Normal Cutoff: 100 [facility] Comment on above: Order Comment: Scree n results are reported as positive (at or above the cutoff) or negative (below the cutoff).The LC-MS/MS testing (if applicable) was developed and its performance characteristics determined by The [facility] in a manner consistent with CLIA requirements. This test has not been cleared or approved by the U.S. Food and Drug Administration; however, the FDA has determined that such clearance or approval is not necessary. Result Comment: Oxyc odone and metabolites of Oxycodone (Oxymorphone, Noroxycodone, and Noroxymorphone) are measured/detected in this assay method. Performed By: #### o bgyntox ####[facility] PATHOLOG[facility] [id number] [place], [place], PCP CL Negative Normal Cutoff: [address] [facility] Comment on above: Order Comment: Scree n results are reported as positive (at or above the cutoff) or negative (below the cutoff).The LC-MS/MS testing (if applicable) was developed and its performance characteristics determined by [facility] in a manner consistent with CLIA requirements. This test has not been cleared or approved by the U.S. Food and Drug Administration; however, the FDA has determined that such clearance or approval is not necessary. Performed By: #### o bgyntox ####[facility] PATHOLOG[facility] [id number] [place], [place], THC CL - TOX W/ CONF Negative Normal Cutoff: 50 [facility] Comment on above: Order Comment: Scree n results are reported as positive (at or above the cutoff) or negative (below the cutoff).The LC-MS/MS testing (if applicable) was developed and its performance characteristics determined by The [facility] in a manner consistent with CLIA requirements. This test has not been cleared or approved by the U.S. Food and Drug Administration; however, the FDA has determined that such clearance or approval is not necessary. Performed By: #### o bgyntox ####[facility] PATHOLOG[facility] [id number] [place], [place], TYPE AND SCREENon 11-15-2024 ABO and Rh group Nom (Bld) Blood group A Rh(D) positive [facility] ABO and Rh group Nom (Bld) No Previous Results [facility] Blood group antibody screen Ql Negative [facility] ABO and Rh group Nom (Bld) Blood group A Rh(D) positive Normal [facility] Comment on above: Performed By: #### 8 2948 #### NURSING GLUCOSE PROGRAM [address] [place], [place], ABO and Rh group Nom (Bld) No Previous Results Normal [facility] Comment on above: Performed By: #### 8 1618 #### NURSING GLUCOSE PROGRAM [address] [place], [address] ABSC INT Negative Normal [facility] Comment on above: Performed By: #### 8 2948 #### NURSING GLUCOSE PROGRAM [address] [place], [address] URIC ACIDon 11-15-2024 Urate [Mass/Vol] 3.6 mg/dL 2.3 - 6.6 mg/dL [facility] Urate [Mass/Vol] 3.6 mg/dL Normal 2.3-6.6 [facility] Comment on above: Performed By: #### 8 2948 #### NURSING GLUCOSE PROGRAM [address] [place], [address] US RETROPERITONEAL LIMITEDon 11-15-2024 US RETROPERITONEAL LIMITED EXAMINATION: US RETROPERITONEAL LIMITED 11/15/2024 09:45 AM CLINICAL HISTORY: RUQ abscess ASSOCIATED DIAGNOSIS: Pre-eclampsia, antepartum ([facility]) ORDERING PROVIDER: JUANY MUHAMMAD COMPARISON: CT BODY [...] rectal contrast suggested. MACRO: None Normal [facility] US Retroperitoneum limitedon 11-15-2024 EXAMINATION: [...] CT with rectal contrast suggested. MACRO: None [facility] Radiology Study observation (narrative) [facility] US Retroperitoneum limitedOr dered By: Ambrocio Joyner on 11-15-2024 [facility] Work Phone: XR ABDOMEN AP 1 VIEWon [...] into this region. MACRO: None Normal [facility] XR Abdomen APon 11-15-2024 EXAMINATION: XR [...] this region. MACRO: None RADIOLOGY Jose Seals, - 11/15/2024 EXAMINATION: XR ABDOMEN AP 1 [...] contrast extravasation into this region. MACRO: None [facility] Study observation (narrative) [facility] XR Abdomen APOrdered By: Emigdio Seals on 11-15-2024 [facility] Work Phone: Abdomen/Pel W ORAL Cont Only on 11-14-2024 Abdomen/Pel W ORAL Cont Only Normal [facility] Abdomen/Pelvis W IV Cont ONL Yon 11-14-2024 Abdomen/Pelvis W IV Cont ONLY Normal [facility] Comprehensive Metabolic Prof ilon 11-14-2024 Albumin [Mass/Vol] 1.5 g/dL Low 3.2-5.0 [facility] Comment on above: Performed By: #### L 100.0100, L500.4050, L501.2450 ####[facility] [address] [place], [address] Albumin/Globulin [Mass ratio] 0.3 {ratio} Low 0.9-2.4 [facility] Comment on above: Performed By: #### L 100.0100, L500.4050, L501.2450 ####[facility] [address] [place], [address] ALK P 164 U/L High 45-117 [facility] Comment on above: Performed By: #### L 100.0100, L500.4050, L501.2450 ####[facility] [address] [place], [address] ALT [Catalytic activity/Vol] 15 U/L Normal 13-56 [facility] Comment on above: Performed By: #### L 100.0100, L500.4050, L501.2450 ####[facility] [address] [place], [address] AST [Catalytic activity/Vol] 16 U/L Normal 15-37 [facility] Comment on above: Performed By: #### L 100.0100, L500.4050, L501.2450 ####[facility] [address] [place], [address] Bilirubin [Mass/Vol] 0.30 mg/dL Normal 0.20-1.00 [facility] Comment on above: Result Comment: For patients on eltrombopag therapy, use of Dimension [place] TBIL is not recommended. Performed By: #### L 100.0100, L500.4050, L501.2450 ####[facility] [address] [place], [address] BUN/CRE 9.6 RATIO Low 10-20 [facility] Comment on above: Performed By: #### L 100.0100, L500.4050, L501.2450 ####[facility] [address] [place], [address] CA,Total 9.0 mg/dL Normal 8.5-10.1 [facility] Comment on above: Performed By: #### L 100.0100, L500.4050, L501.2450 ####[facility] [address] [place], [address] Chloride [Moles/Vol] 99 mmol/L Normal 98-107 [facility] Comment on above: Performed By: #### L 100.0100, L500.4050, L501.2450 ####[facility] [address] [place], [address] CO2 [Moles/Vol] 22.0 mmol/L Normal 21.0-32.0 [facility] Comment on above: Performed By: #### L 100.0100, L500.4050, L501.2450 ####[facility] [address] [place], [address] Creatinine [Mass/Vol] 0.63 mg/dL Normal 0.55-1.02 [facility] Comment on above: Result Comment: The validity of the calculated GFR GFRAA in patients over70 years has not been determined. Clinical correlation isessential. Performed By: #### L 100.0100, L500.4050, L501.2450 ####[facility] [address] [place], [address] ECRCL 132.12 ml/min Normal [facility] Comment on above: Performed By: #### L 100.0100, L500.4050, L501.2450 ####[facility] [address] [place], [address] EST GFR - AA 142 mL/min Normal >60 [facility] Comment on above: Result Comment: Afri can [place] GFR Calc Performed By: #### L 100.0100, L500.4050, L501.2450 ####[facility] [address] [place], [address] GAP 10 Normal 5-15 [facility] Comment on above: Performed By: #### L 100.0100, L500.4050, L501.2450 ####[facility] [address] [place], [address] GFR/1.73 sq M.predicted among non-blacks MDRD (S/P/Bld) [Vol rate/Area] 117 mL/min/{1.73_m2} Normal >60 [facility] Comment on above: Result Comment: Non- GFR Calc Performed By: #### L 100.0100, L500.4050, L501.2450 ####[facility] [address] [place], [address] Globulin (S) [Mass/Vol] 4.8 g/dL High 2.2-4.2 [facility] Comment on above: Performed By: #### L 100.0100, L500.4050, L501.2450 ####[facility] [address] [place], [address] Glucose [Mass/Vol] 376 mg/dL High 74-106 [facility] Comment on above: Result Comment: Gluc ose result greater than or equal to 200 mg/dLsuggests DIABETES MELLITUS per A.D.A. criteria. Performed By: #### L 100.0100, L500.4050, L501.2450 ####[facility] [address] [place], [address] Potassium [Moles/Vol] 4.0 mmol/L Normal 3.5-5.1 [facility] Comment on above: Performed By: #### L 100.0100, L500.4050, L501.2450 ####[facility] [address] [place], [address] Sodium [Moles/Vol] 131 mmol/L Low 136-145 [facility] Comment on above: Performed By: #### L 100.0100, L500.4050, L501.2450 ####[facility] [address] [place], [address] T PROT 6.3 g/dL Low 6.4-8.2 [facility] Comment on above: Performed By: #### L 100.0100, L500.4050, L501.2450 ####[facility] [address] [place], [address] Urea nitrogen [Mass/Vol] 6 mg/dL Low 7-18 [facility] Comment on above: Performed By: #### L 100.0100, L500.4050, L501.2450 ####[facility] [address] [place], [place], [id number] Emergency Department Summary on 11-14-2024 Emergency Department Summary Normal [facility] HIV-1 RNA PCR, QUANTITATIVEo n 11-14-2024 VIR QNT (ND) Not detected Normal [facility] Comment on above: Order Comment: The organism belongs to the Bacteroides fragilis group which are beta-lactmase producers; therefore Beta-lactmase testing will not be performed for this organism. It should be considered resistant to penicillin, ampicillin and amoxicillin. Performed By: #### C [facility] #### [facility] Pathology [address] [facility] [address] [place], [place] [address] Lipaseon 11-14-2024 Lipase [Catalytic activity/Vol] 22 U/L Normal 13-75 [facility] Comment on above: Result Comment: Alba cano note:LIPASE revised reference range effective 23.New Lipase methodology. Expected to produce lower valuesthan the previous assay method.NEW Reference Range: 13 - 75 U/L Performed By: #### L 100.0100, L500.4050, L501.2450 ####[facility] [address] [place], [place], [id number] Partial Thromboplast Timeon 11-14-2024 aPTT Coag (Bld) [Time] 28.3 s Normal 24.1-36.2 [facility] Comment on above: Performed By: #### L 300.3900, L300.4310 ####[facility] [address] [place], [place], [id number] Progress Noteson 11-14-2024 Medical Lab Technologist Authentication Interface Message Text 29 year old , OB History Para Term AB Living 1 0 0 0 0 0 SAB IAB Ectopic Multiple Live Births 0 0 0 0 0 Unknown seen today in Triage # 1 for C/O transfer via ems from [place]. HTN and right upper abdominal pain post c/s on 11/06/24 Is BERNADETTETOI Faust involved in any research studies? No If patient smokes, does she desire information/assistance to quit? N/A - Doesn't smoke No current facility-administered medications on file prior to encounter. No current outpatient medications on file prior to encounter. Dr. Carrasco aware of pt arrival and chief complaints Normal [facility] Prothrombin Time w/INRon INR Coag (PPP) [Relative time] 1.0 {INR} Normal [facility] Comment on above: Performed By: #### L 300.3900, L300.4310 ####[facility] [address] [place], [address] PT Coag (PPP) [Time] 13.3 s Normal 11.7-14.9 [facility] Comment on above: Performed By: #### L 300.3900, L300.4310 ####[facility] [address] [place], [address] Type AND Screenon 11-14-2024 Ab SCREEN GEL Negative Normal [facility] Comment on above: Order Comment: A Performed By: #### B TS ####[facility] [address] [place], [address] Urinalysis, Completeon 11-14 RBC 0-5 SEEN Normal 0-5 [facility] Comment on above: Order Comment: CLEAN CATCH Performed By: #### L 400.0001 ####[facility] [address] [place], [address] WBC 0-5 SEEN Normal 0-5 [facility] Comment on above: Order Comment: CLEAN CATCH Performed By: #### L 400.0001 ####[facility] [address] [place], [address] BACTERIA 0 SEEN Normal None Seen [facility] Comment on above: Order Comment: CLEAN CATCH Performed By: #### L 400.0001 ####[facility] [address] [place], [address] EPI,SQUAMOUS 0 SEEN Normal 5-10 [facility] Comment on above: Order Comment: CLEAN CATCH Performed By: #### L 400.0001 ####[facility] [address] [place], [address] Mucus Ql (Urine sed) 0 SEEN Normal [facility] Comment on above: Order Comment: CLEAN CATCH Performed By: #### L 400.0001 ####[facility] [address] [place], [address] HIV Viral Load Quanton 11-11 HIV-1 RNA, PCR < 20 Normal . [facility] Comment on above: Result Comment: HIV- 1 RNA not detectedThe reportable range for this assay is 20 to 10,000,000copies HIV-1 RNA/mL. Performed By: #### L 3890.4000, L500.4050 ####[facility] [address] [place], [address] log10 HIV-1 RNA TNP Normal . [facility] Comment on above: Result Comment: Resu lt Units: [id number]/mLUnable to calculate result since non-numeric resultobtained for component test.Performed at: [address] [id number] Director: Cinthya Downs MD, Phone: [phone] Performed By: #### L 3890.4000, L500.4050 ####[facility] [address] [place], [address] Bedside Glucoseon 11-09-2024 FINGERSTICK GLU 106 mg/dL Normal 74-106 [facility] Comment on above: Result Comment: ATUL GEMENT OF PATIENT CARE PER NURSING PROTOCOL Performed By: #### L 501.080 ####[facility] [address] [place], [address] FINGERSTICK GLU 96 mg/dL Normal 74-106 [facility] Comment on above: Result Comment: ATUL GEMENT OF PATIENT CARE PER NURSING PROTOCOL Performed By: #### L 501.080 ####[facility] [address] [place], [address] CBC W/Diff, Automatedon 10-30 Absolute Lymph 0.95 X10 3/uL Normal 0.83-4.51 [facility] Comment on above: Performed By: #### L 500.4050, L100.0100 ####[facility] [address] [place], [address] Absolute Neut 13.8 X10 3/uL High 2.0-7.7 [facility] Comment on above: Performed By: #### L 500.4050, L100.0100 ####[facility] [address] [place], [address] Basophils/100 WBC (Bld) 0.1 % Normal 0-1 [facility] Comment on above: Performed By: #### L 500.4050, L100.0100 ####[facility] [address] [place], [address] Eosinophils/100 WBC (Bld) 0.0 % Normal 0-5 [facility] Comment on above: Performed By: #### L 500.4050, L100.0100 ####[facility] [address] [place], [address] Erythrocyte distribution width (RBC) [Ratio] 15.2 % High 11.6-14.6 [facility] Comment on above: Performed By: #### L 500.4050, L100.0100 ####[facility] [address] [place], [address] Hematocrit (Bld) [Volume fraction] 31.5 % Low 37-47 [facility] Comment on above: Performed By: #### L 500.4050, L100.0100 ####[facility] [address] [place], [address] Hemoglobin (Bld) [Mass/Vol] 10.5 g/dL Low 12.0-15.0 [facility] Comment on above: Performed By: #### L 500.4050, L100.0100 ####[facility] [address] [place], [address] IG% 0.600 Normal 0.0-0.9 [facility] Comment on above: Result Comment: IG% - Immature Granulocytes (promyelocytes, myelocytes andmetamyelocytes) > 1% indicates that a LEFT SHIFT is Present. Performed By: #### L 500.4050, L100.0100 ####[facility] [address] [place], [address] Lymphocytes/100 WBC (Bld) 6.1 % Low 19-41 [facility] Comment on above: Performed By: #### L 500.4050, L100.0100 ####[facility] [address] [place], [address] MCH (RBC) [Entitic mass] 27.3 pg Normal 27.0-32.0 [facility] Comment on above: Performed By: #### L 500.4050, L100.0100 ####[facility] [address] [place], [address] MCHC (RBC) [Mass/Vol] 33.3 g/dL Normal 32-36 [facility] Comment on above: Performed By: #### L 500.4050, L100.0100 ####[facility] [address] [place], [address] MCV (RBC) [Entitic vol] 81.8 fL Normal 81-99 [facility] Comment on above: Performed By: #### L 500.4050, L100.0100 ####[facility] [address] [place], [address] Monocytes/100 WBC (Bld) 4.1 % Normal 0-10 [facility] Comment on above: Performed By: #### L 500.4050, L100.0100 ####[facility] [address] [place], [address] Neutrophils/100 WBC (Bld) 89.1 % High 47-70 [facility] Comment on above: Performed By: #### L 500.4050, L100.0100 ####[facility] [address] [place], [address] Nucleated RBC (Bld) [#/Vol] 0 10*3/uL Normal 0-5 [facility] Comment on above: Performed By: #### L 500.4050, L100.0100 ####[facility] [address] [place], [address] Platelet mean volume (Bld) [Entitic vol] 10.4 fL Normal 6.2-12.0 [facility] Comment on above: Performed By: #### L 500.4050, L100.0100 ####[facility] [address] [place], [address] Platelets (Bld) [#/Vol] 196 10*3/uL Normal 150-450 [facility] Comment on above: Performed By: #### L 500.4050, L100.0100 ####[facility] [address] [place], [address] RBC (Bld) [#/Vol] 3.85 10*6/uL Low 4.2-5.4 [facility] Comment on above: Performed By: #### L 500.4050, L100.0100 ####[facility] [address] [place], [address] RDW SD 44.6 fl High 35.1-43.9 [facility] Comment on above: Performed By: #### L 500.4050, L100.0100 ####[facility] [address] [place], [address] WBC (Bld) [#/Vol] 15.5 10*3/uL High 4.4-11.0 [facility] Comment on above: Performed By: #### L 500.4050, L100.0100 ####[facility] [address] [place], [address] Comprehensive Metabolic Prof ilon 11-09-2024 Albumin [Mass/Vol] 1.7 g/dL Low 3.2-5.0 [facility] Comment on above: Performed By: #### L 500.4050, L100.0100 ####[facility] [address] [place], [address] Albumin/Globulin [Mass ratio] 0.5 {ratio} Low 0.9-2.4 [facility] Comment on above: Performed By: #### L 500.4050, L100.0100 ####[facility] [address] [place], [address] ALK P 104 U/L Normal 45-117 [facility] Comment on above: Performed By: #### L 500.4050, L100.0100 ####[facility] [address] [place], [address] ALT [Catalytic activity/Vol] 14 U/L Normal 13-56 [facility] Comment on above: Performed By: #### L 500.4050, L100.0100 ####[facility] [address] [place], [address] AST [Catalytic activity/Vol] 22 U/L Normal 15-37 [facility] Comment on above: Performed By: #### L 500.4050, L100.0100 ####[facility] [address] [place], [address] Bilirubin [Mass/Vol] 0.30 mg/dL Normal 0.20-1.00 [facility] Comment on above: Result Comment: For patients on eltrombopag therapy, use of Dimension [place] TBIL is not recommended. Performed By: #### L 500.4050, L100.0100 ####[facility] [address] [place], [address] BUN/CRE 25.9 RATIO High 10-20 [facility] Comment on above: Performed By: #### L 500.4050, L100.0100 ####[facility] [address] [place], [address] CA,Total 8.0 mg/dL Low 8.5-10.1 [facility] Comment on above: Performed By: #### L 500.4050, L100.0100 ####[facility] [address] [place], [address] Chloride [Moles/Vol] 107 mmol/L Normal 98-107 [facility] Comment on above: Performed By: #### L 500.4050, L100.0100 ####[facility] [address] [place], [address] CO2 [Moles/Vol] 22.0 mmol/L Normal 21.0-32.0 [facility] Comment on above: Performed By: #### L 500.4050, L100.0100 ####[facility] [address] [place], [address] Creatinine [Mass/Vol] 0.89 mg/dL Normal 0.55-1.02 [facility] Comment on above: Result Comment: The validity of the calculated GFR GFRAA in patients over70 years has not been determined. Clinical correlation isessential. Performed By: #### L 500.4050, L100.0100 ####[facility] [address] [place], [address] ECRCL 99.59 ml/min Normal [facility] Comment on above: Performed By: #### L 500.4050, L100.0100 ####[facility] [address] [place], [address] EST GFR - AA 95 mL/min Normal >60 [facility] Comment on above: Result Comment: Afri can [place] GFR Calc Performed By: #### L 500.4050, L100.0100 ####[facility] [address] [place], [address] GAP 7 Normal 5-15 [facility] Comment on above: Performed By: #### L 500.4050, L100.0100 ####[facility] [address] [place], [address] GFR/1.73 sq M.predicted among non-blacks MDRD (S/P/Bld) [Vol rate/Area] 78 mL/min/{1.73_m2} Normal >60 [facility] Comment on above: Result Comment: Non- GFR Calc Performed By: #### L 500.4050, L100.0100 ####[facility] [address] [place], [address] Globulin (S) [Mass/Vol] 3.7 g/dL Normal 2.2-4.2 [facility] Comment on above: Performed By: #### L 500.4050, L100.0100 ####[facility] [address] [place], [address] Glucose [Mass/Vol] 109 mg/dL High 74-106 [facility] Comment on above: Result Comment: Fast ing Glucose result from 100 to 125 mg/dLsuggests IMPAIRED HOMEOSTASIS per A.D.A. criteria. Performed By: #### L 500.4050, L100.0100 ####[facility] [address] [place], [address] Potassium [Moles/Vol] 4.1 mmol/L Normal 3.5-5.1 [facility] Comment on above: Performed By: #### L 500.4050, L100.0100 ####[facility] [address] [place], [address] Sodium [Moles/Vol] 136 mmol/L Normal 136-145 [facility] Comment on above: Performed By: #### L 500.4050, L100.0100 ####[facility] [address] [place], [address] T PROT 5.4 g/dL Low 6.4-8.2 [facility] Comment on above: Performed By: #### L 500.4050, L100.0100 ####[facility] [address] [place], [address] Urea nitrogen [Mass/Vol] 23 mg/dL High 7-18 [facility] Comment on above: Performed By: #### L 500.4050, L100.0100 ####[facility] [address] [place], [address] Discharge Instructionon 10-30 Discharge Instruction Normal [facility] Bedside Glucoseon 11-08-2024 FINGERSTICK GLU 232 mg/dL High 74-106 [facility] Comment on above: Result Comment: ATUL GEMENT OF PATIENT CARE PER NURSING PROTOCOL Performed By: #### L 501.080 ####[facility] [address] [place], [address] FINGERSTICK GLU 277 mg/dL High 74-106 [facility] Comment on above: Result Comment: ATUL GEMENT OF PATIENT CARE PER NURSING PROTOCOL Performed By: #### L 501.080 ####[facility] [address] [place], [address] FINGERSTICK GLU 244 mg/dL High 74-106 [facility] Comment on above: Result Comment: ATUL GEMENT OF PATIENT CARE PER NURSING PROTOCOL Performed By: #### L 501.080 ####[facility] [address] [place], [address] FINGERSTICK GLU 343 mg/dL High 74-106 [facility] Comment on above: Result Comment: ATUL GEMENT OF PATIENT CARE PER NURSING PROTOCOL Performed By: #### L 501.080 ####[facility] [address] [place], [address] FINGERSTICK GLU 253 mg/dL High 74-106 [facility] Comment on above: Result Comment: ATUL GEMENT OF PATIENT CARE PER NURSING PROTOCOL Performed By: #### L 501.080 ####[facility] [address] [place], [address] CBC-Complete Blood Cnt No Di ffon 11-08-2024 Erythrocyte distribution width (RBC) [Ratio] 14.6 % Normal 11.6-14.6 [facility] Comment on above: Performed By: #### L 500.4050, L100.0500 ####[facility] [address] [place], [address] Hematocrit (Bld) [Volume fraction] 31.4 % Low 37-47 [facility] Comment on above: Performed By: #### L 500.4050, L100.0500 ####[facility] [address] [place], [address] Hemoglobin (Bld) [Mass/Vol] 10.4 g/dL Low 12.0-15.0 [facility] Comment on above: Performed By: #### L 500.4050, L100.0500 ####[facility] [address] [place], [address] MCH (RBC) [Entitic mass] 26.9 pg Low 27.0-32.0 [facility] Comment on above: Performed By: #### L 500.4050, L100.0500 ####[facility] [address] [place], [address] MCHC (RBC) [Mass/Vol] 33.1 g/dL Normal 32-36 [facility] Comment on above: Performed By: #### L 500.4050, L100.0500 ####[facility] [address] [place], [address] MCV (RBC) [Entitic vol] 81.3 fL Normal 81-99 [facility] Comment on above: Performed By: #### L 500.4050, L100.0500 ####[facility] [address] [place], [address] Platelet mean volume (Bld) [Entitic vol] 11.2 fL Normal 6.2-12.0 [facility] Comment on above: Performed By: #### L 500.4050, L100.0500 ####[facility] [address] [place], [address] Platelets (Bld) [#/Vol] 164 10*3/uL Normal 150-450 [facility] Comment on above: Performed By: #### L 500.4050, L100.0500 ####[facility] [address] [place], [address] RBC (Bld) [#/Vol] 3.86 10*6/uL Low 4.2-5.4 [facility] Comment on above: Performed By: #### L 500.4050, L100.0500 ####[facility] [address] [place], [address] RDW SD 42.5 fl Normal 35.1-43.9 [facility] Comment on above: Performed By: #### L 500.4050, L100.0500 ####[facility] [address] [place], [address] WBC (Bld) [#/Vol] 10.6 10*3/uL Normal 4.4-11.0 [facility] Comment on above: Performed By: #### L 500.4050, L100.0500 ####[facility] [address] [place], [address] Comprehensive Metabolic Prof ilon 11-08-2024 Albumin [Mass/Vol] 1.6 g/dL Low 3.2-5.0 [facility] Comment on above: Performed By: #### L 500.4050, L100.0500 ####[facility] [address] [place], [address] Albumin/Globulin [Mass ratio] 0.4 {ratio} Low 0.9-2.4 [facility] Comment on above: Performed By: #### L 500.4050, L100.0500 ####[facility] [address] [place], [address] ALK P 112 U/L Normal 45-117 [facility] Comment on above: Performed By: #### L 500.4050, L100.0500 ####[facility] [address] [place], [address] ALT [Catalytic activity/Vol] 12 U/L Low 13-56 [facility] Comment on above: Performed By: #### L 500.4050, L100.0500 ####[facility] [address] [place], [address] AST [Catalytic activity/Vol] 19 U/L Normal 15-37 [facility] Comment on above: Performed By: #### L 500.4050, L100.0500 ####[facility] [address] [place], [address] Bilirubin [Mass/Vol] 0.30 mg/dL Normal 0.20-1.00 [facility] Comment on above: Result Comment: For patients on eltrombopag therapy, use of Dimension [place] TBIL is not recommended. Performed By: #### L 500.4050, L100.0500 ####[facility] [address] [place], [address] BUN/CRE 16.8 RATIO Normal 10-20 [facility] Comment on above: Performed By: #### L 500.4050, L100.0500 ####[facility] [address] [place], [address] CA,Total 7.4 mg/dL Low 8.5-10.1 [facility] Comment on above: Performed By: #### L 500.4050, L100.0500 ####[facility] [address] [place], [address] Chloride [Moles/Vol] 100 mmol/L Normal 98-107 [facility] Comment on above: Performed By: #### L 500.4050, L100.0500 ####[facility] [address] [place], [address] CO2 [Moles/Vol] 20.0 mmol/L Low 21.0-32.0 [facility] Comment on above: Performed By: #### L 500.4050, L100.0500 ####[facility] [address] [place], [address] Creatinine [Mass/Vol] 1.25 mg/dL High 0.55-1.02 [facility] Comment on above: Result Comment: The validity of the calculated GFR GFRAA in patients over70 years has not been determined. Clinical correlation isessential. Performed By: #### L 500.4050, L100.0500 ####[facility] [address] [place], [address] ECRCL 70.91 ml/min Normal [facility] Comment on above: Performed By: #### L 500.4050, L100.0500 ####[facility] [address] [place], [address] EST GFR - AA 64 mL/min Normal >60 [facility] Comment on above: Result Comment: Afri can [place] GFR Calc Performed By: #### L 500.4050, L100.0500 ####[facility] [address] [place], [address] GAP 8 Normal 5-15 [facility] Comment on above: Performed By: #### L 500.4050, L100.0500 ####[facility] [address] [place], [address] GFR/1.73 sq M.predicted among non-blacks MDRD (S/P/Bld) [Vol rate/Area] 53 mL/min/{1.73_m2} Low >60 [facility] Comment on above: Result Comment: Non- GFR Calc Performed By: #### L 500.4050, L100.0500 ####[facility] [address] [place], [address] Globulin (S) [Mass/Vol] 3.7 g/dL Normal 2.2-4.2 [facility] Comment on above: Performed By: #### L 500.4050, L100.0500 ####[facility] [address] [place], [address] Glucose [Mass/Vol] 259 mg/dL High 74-106 [facility] Comment on above: Result Comment: Gluc ose result greater than or equal to 200 mg/dLsuggests DIABETES MELLITUS per A.D.A. criteria. Performed By: #### L 500.4050, L100.0500 ####[facility] [address] [place], [address] Potassium [Moles/Vol] 4.3 mmol/L Normal 3.5-5.1 [facility] Comment on above: Performed By: #### L 500.4050, L100.0500 ####[facility] [address] [place], [address] Sodium [Moles/Vol] 127 mmol/L Low 136-145 [facility] Comment on above: Performed By: #### L 500.4050, L100.0500 ####[facility] [address] [place], [address] T PROT 5.3 g/dL Low 6.4-8.2 [facility] Comment on above: Performed By: #### L 500.4050, L100.0500 ####[facility] [address] [place], [address] Urea nitrogen [Mass/Vol] 21 mg/dL High 7-18 [facility] Comment on above: Performed By: #### L 500.4050, L100.0500 ####[facility] [address] [place], [address] L3410.9999on 11-08-2024 [facility] [place]. COMMENT Normal . [facility] Comment on above: Order Comment: [id number] 5HIV CONFIRMATION Result Comment: Test Ordered: [id number] HIV Ab/p24 Ag with ReflexHIV Ab/p24 Ag Screen Note: CB Non Reactive Reference Range: Non ReactiveHIV-1/HIV-2 antibodies and HIV-1 p24 antigen were NOTdetected. There is no laboratory evidence of HIV infection.HIV NegativePerformed at: - [facility] [address] [id number] Director: Donell Nieto PhD, Phone: [phone] Performed By: #### L 100.0100, L3890.6005, L400.0001, L3410.9999 ####[facility] [address] [place], [address] 12 Lead EKGon 11-07-2024 12 Lead EKG Normal [facility] Acetone Serumon 11-07-2024 ACETONE SERUM Negative Normal NEG [facility] Comment on above: Performed By: #### L 501.6900 ####[facility] [address] [place], [address] BLD Prod Order/FFPon 025 BP ORDER FFP Not performed Normal [facility] Comment on above: Order Comment: NO LO NGER NEEDED Result Comment: NO L ONGER NEEDED Performed By: #### B BPOFFP ####[facility] [facility] [address] [place], [address] Bedside Glucoseon 11-07-2024 FINGERSTICK GLU 271 mg/dL High 74-106 [facility] Comment on above: Result Comment: ATUL GEMENT OF PATIENT CARE PER NURSING PROTOCOL Performed By: #### L 501.080 ####[facility] [address] [place], [address] FINGERSTICK GLU 297 mg/dL High 74-106 [facility] Comment on above: Result Comment: ATUL GEMENT OF PATIENT CARE PER NURSING PROTOCOL Performed By: #### L 501.080 ####[facility] [address] [place], [address] FINGERSTICK GLU 209 mg/dL High 74-106 [facility] Comment on above: Result Comment: ATUL GEMENT OF PATIENT CARE PER NURSING PROTOCOL Performed By: #### L 501.080 ####[facility] [address] [place], [address] FINGERSTICK GLU 268 mg/dL High [address] [facility] Comment on above: Result Comment: ATUL GEMENT OF PATIENT CARE PER NURSING PROTOCOL Performed By: #### L 501.080 ####[facility] [address] [place], [address] FINGERSTICK GLU 306 mg/dL High 74-106 [facility] Comment on above: Result Comment: ATUL GEMENT OF PATIENT CARE PER NURSING PROTOCOL Performed By: #### L 501.080 ####[facility] [address] [place], [address] FINGERSTICK GLU 272 mg/dL High 74-106 [facility] Comment on above: Result Comment: ATUL GAMBLE OF PATIENT CARE PER NURSING PROTOCOL Performed By: #### L 501.080 ####[facility] [address] [place], [address] CBC W/Diff, Automatedon 01-0 9-2024 Absolute Lymph 2.70 X10 3/uL Normal 0.83-4.51 [facility] Comment on above: Performed By: #### L 100.0100 ####[facility] [address] [place], [address] Absolute Neut 6.6 X10 3/uL Normal 2.0-7.7 [facility] Comment on above: Performed By: #### L 100.0100 ####[facility] [address] [place], [address] Basophils/100 WBC (Bld) 0.2 % Normal 0-1 [facility] Comment on above: Performed By: #### L 100.0100 ####[facility] [address] [place], [address] Eosinophils/100 WBC (Bld) 0.1 % Normal 0-5 [facility] Comment on above: Performed By: #### L 100.0100 ####[facility] [address] [place], [address] Erythrocyte distribution width (RBC) [Ratio] 14.7 % High 11.6-14.6 [facility] Comment on above: Performed By: #### L 100.0100 ####[facility] [address] [place], [address] Hematocrit (Bld) [Volume fraction] 31.8 % Low 37-47 [facility] Comment on above: Performed By: #### L 100.0100 ####[facility] [address] [place], [address] Hemoglobin (Bld) [Mass/Vol] 10.3 g/dL Low 12.0-15.0 [facility] Comment on above: Performed By: #### L 100.0100 ####[facility] [address] [place], [address] IG% 1.000 High 0.0-0.9 [facility] Comment on above: Result Comment: IG% - Immature Granulocytes (promyelocytes, myelocytes andmetamyelocytes) > 1% indicates that a LEFT SHIFT is Present. Performed By: #### L 100.0100 ####[facility] [address] [place], [address] Lymphocytes/100 WBC (Bld) 27.4 % Normal 19-41 [facility] Comment on above: Performed By: #### L 100.0100 ####[facility] [address] [place], [address] MCH (RBC) [Entitic mass] 27.0 pg Normal 27.0-32.0 [facility] Comment on above: Performed By: #### L 100.0100 ####[facility] [address] [place], [address] MCHC (RBC) [Mass/Vol] 32.4 g/dL Normal 32-36 [facility] Comment on above: Performed By: #### L 100.0100 ####[facility] [address] [place], [address] MCV (RBC) [Entitic vol] 83.5 fL Normal 81-99 [facility] Comment on above: Performed By: #### L 100.0100 ####[facility] [address] [place], [address] Monocytes/100 WBC (Bld) 4.5 % Normal 0-10 [facility] Comment on above: Performed By: #### L 100.0100 ####[facility] [address] [place], [address] Neutrophils/100 WBC (Bld) 66.8 % Normal 47-70 [facility] Comment on above: Performed By: #### L 100.0100 ####[facility] [address] [place], [address] Nucleated RBC (Bld) [#/Vol] 0 10*3/uL Normal 0-5 [facility] Comment on above: Performed By: #### L 100.0100 ####[facility] [address] [place], [address] Platelet mean volume (Bld) [Entitic vol] 12.4 fL High 6.2-12.0 [facility] Comment on above: Performed By: #### L 100.0100 ####[facility] [address] [place], [address] Platelets (Bld) [#/Vol] 113 10*3/uL Low 150-450 [facility] Comment on above: Performed By: #### L 100.0100 ####[facility] [address] [place], [address] RBC (Bld) [#/Vol] 3.81 10*6/uL Low 4.2-5.4 [facility] Comment on above: Performed By: #### L 100.0100 ####[facility] [address] [place], [address] RDW SD 43.8 fl Normal 35.1-43.9 [facility] Comment on above: Performed By: #### L 100.0100 ####[facility] [address] [place], [address] WBC (Bld) [#/Vol] 9.8 10*3/uL Normal 4.4-11.0 [facility] Comment on above: Performed By: #### L 100.0100 ####[facility] [address] [place], [address] CBC-Complete Blood Cnt No Di ffon 11-07-2024 Erythrocyte distribution width (RBC) [Ratio] 14.5 % Normal 11.6-14.6 [facility] Comment on above: Performed By: #### L 100.0500 ####[facility] [address] [place], [address] Hematocrit (Bld) [Volume fraction] 28.5 % Low 37-47 [facility] Comment on above: Performed By: #### L 100.0500 ####[facility] [address] [place], [address] Hemoglobin (Bld) [Mass/Vol] 9.3 g/dL Low 12.0-15.0 [facility] Comment on above: Performed By: #### L 100.0500 ####[facility] [address] [place], [address] MCH (RBC) [Entitic mass] 26.5 pg Low 27.0-32.0 [facility] Comment on above: Performed By: #### L 100.0500 ####[facility] [address] [place], [address] MCHC (RBC) [Mass/Vol] 32.6 g/dL Normal 32-36 [facility] Comment on above: Performed By: #### L 100.0500 ####[facility] [address] [place], [address] MCV (RBC) [Entitic vol] 81.2 fL Normal 81-99 [facility] Comment on above: Performed By: #### L 100.0500 ####[facility] [address] [place], [address] Platelet mean volume (Bld) [Entitic vol] 12.4 fL High 6.2-12.0 [facility] Comment on above: Performed By: #### L 100.0500 ####[facility] [address] [place], [address] Platelets (Bld) [#/Vol] 126 10*3/uL Low 150-450 [facility] Comment on above: Performed By: #### L 100.0500 ####[facility] [address] [place], [address] RBC (Bld) [#/Vol] 3.51 10*6/uL Low 4.2-5.4 [facility] Comment on above: Performed By: #### L 100.0500 ####[facility] [address] [place], [address] RDW SD 41.7 fl Normal 35.1-43.9 [facility] Comment on above: Performed By: #### L 100.0500 ####[facility] [address] [place], [address] WBC (Bld) [#/Vol] 12.0 10*3/uL High 4.4-11.0 [facility] Comment on above: Performed By: #### L 100.0500 ####[facility] [address] [place], [address] Hemoglobin (Bld) [Mass/Vol] 5.8 g/dL Invalid Interpretation Code 12.0-15.0 [facility] Comment on above: Order Comment: Comme nts: Day #1Reason for Laboratory Test Result Comment: This specimen has been REJECTED due to Laboratory criteria:POSSIBLE Contamination.[email or web address] has been notified of need of recollection.11/07/24 0338 Zeferino GarciaCRITICAL VALUE CALLED TO MBHGAIT69/09/25 0203 Zeferino Garcia.RESULTS READ BACK BY SAME. Performed By: #### L 100.0500 ####[facility] [address] [place], [address] SCAN INDICATED? YES- FLAGS NOTED Normal [facility] Comment on above: Order Comment: Comme nts: Day #1Reason for Laboratory Test Result Comment: This specimen has been REJECTED due to Laboratory criteria:POSSIBLE Contamination.[email or web address] has been notified of need of recollection.11/07/24337 Zeferino R Garcia Performed By: #### L 100.0500 ####[facility] [address] [place], [address] Erythrocyte distribution width (RBC) [Ratio] 14.4 % Normal 11.6-14.6 [facility] Comment on above: Order Comment: Comme nts: Day #1Reason for Laboratory Test Result Comment: This specimen has been REJECTED due to Laboratory criteria:POSSIBLE Contamination.[email or web address] has been notified of need of recollection.11/07/24337 Zeferino R Garcia Performed By: #### L 100.0500 ####[facility] [address] [place], [address] Hematocrit (Bld) [Volume fraction] 19.1 % Low 37-47 [facility] Comment on above: Order Comment: Comme nts: Day #1Reason for Laboratory Test Result Comment: This specimen has been REJECTED due to Laboratory criteria:POSSIBLE Contamination.[email or web address] has been notified of need of recollection.11/07/24337 Zeferino R Garcia Performed By: #### L 100.0500 ####[facility] [address] [place], [address] MCH (RBC) [Entitic mass] 26.0 pg Low 27.0-32.0 [facility] Comment on above: Order Comment: Comme nts: Day #1Reason for Laboratory Test Result Comment: This specimen has been REJECTED due to Laboratory criteria:POSSIBLE Contamination.[email or web address] has been notified of need of recollection.11/07/24337 Zeferino R Garcia Performed By: #### L 100.0500 ####[facility] [address] [place], [address] MCHC (RBC) [Mass/Vol] 30.4 g/dL Low 32-36 [facility] Comment on above: Order Comment: Comme nts: Day #1Reason for Laboratory Test Result Comment: This specimen has been REJECTED due to Laboratory criteria:POSSIBLE Contamination.[email or web address] has been notified of need of recollection.11/07/24337 Zeferino R Garcia Performed By: #### L 100.0500 ####[facility] [address] [place], [address] MCV (RBC) [Entitic vol] 85.7 fL Normal 81-99 [facility] Comment on above: Order Comment: Comme nts: Day #1Reason for Laboratory Test Result Comment: This specimen has been REJECTED due to Laboratory criteria:POSSIBLE Contamination.[email or web address] has been notified of need of recollection.11/07/24337 Zeferino R Garcia Performed By: #### L 100.0500 ####[facility] [address] [place], [address] Platelet mean volume (Bld) [Entitic vol] 11.3 fL Normal 6.2-12.0 [facility] Comment on above: Order Comment: Comme nts: Day #1Reason for Laboratory Test Result Comment: This specimen has been REJECTED due to Laboratory criteria:POSSIBLE Contamination.[email or web address] has been notified of need of recollection.11/07/24337 Zeferino R Garcia Performed By: #### L 100.0500 ####[facility] [address] [place], [address] Platelets (Bld) [#/Vol] 66 10*3/uL Low 150-450 [facility] Comment on above: Order Comment: Comme nts: Day #1Reason for Laboratory Test Result Comment: This specimen has been REJECTED due to Laboratory criteria:POSSIBLE Contamination.[email or web address] has been notified of need of recollection.11/07/24337 Zeferino R Garcia Performed By: #### L 100.0500 ####[facility] [address] [place], [address] POSITIVE COUNT YES Abnormal [facility] Comment on above: Order Comment: Comme nts: Day #1Reason for Laboratory Test Result Comment: This specimen has been REJECTED due to Laboratory criteria:POSSIBLE Contamination.[email or web address] has been notified of need of recollection.11/07/24337 Zeferino R Garcia Performed By: #### L 100.0500 ####[facility] [address] [place], [address] RBC (Bld) [#/Vol] 2.23 10*6/uL Low 4.2-5.4 [facility] Comment on above: Order Comment: Comme nts: Day #1Reason for Laboratory Test Result Comment: This specimen has been REJECTED due to Laboratory criteria:POSSIBLE Contamination.[email or web address] has been notified of need of recollection.11/07/24337 Zeferino R Garcia Performed By: #### L 100.0500 ####[facility] [address] [facility] 331066(072) RDW SD 44.5 fl High 35.1-43.9 [facility] Comment on above: Order Comment: Comme nts: Day #1Reason for Laboratory Test Result Comment: This specimen has been REJECTED due to Laboratory criteria:POSSIBLE Contamination.[email or web address] has been notified of need of recollection.11/07/24337 Zeferino R Garcia Performed By: #### L 100.0500 ####[facility] [address] [place], [address] WBC (Bld) [#/Vol] 7.6 10*3/uL Normal 4.4-11.0 [facility] Comment on above: Order Comment: Comme nts: Day #1Reason for Laboratory Test Result Comment: This specimen has been REJECTED due to Laboratory criteria:POSSIBLE Contamination.[email or web address] has been notified of need of recollection.11/07/24337 Zeferino R Garcia Performed By: #### L 100.0500 ####[facility] [address] [place] [id number] Comprehensive Metabolic Prof ilon 11-07-2024 Albumin [Mass/Vol] 1.6 g/dL Low 3.2-5.0 [facility] Comment on above: Performed By: #### L 3890.4000, L500.4050 ####[facility] [address] [place], [address] Albumin/Globulin [Mass ratio] 0.4 {ratio} Low 0.9-2.4 [facility] Comment on above: Performed By: #### L 3890.4000, L500.4050 ####[facility] [address] [place], [address] ALK P 116 U/L Normal 45-117 [facility] Comment on above: Performed By: #### L 3890.4000, L500.4050 ####[facility] [address] [place], [address] ALT [Catalytic activity/Vol] 14 U/L Normal 13-56 [facility] Comment on above: Performed By: #### L 3890.4000, L500.4050 ####[facility] [address] [place], [address] AST [Catalytic activity/Vol] 25 U/L Normal 15-37 [facility] Comment on above: Performed By: #### L 3890.4000, L500.4050 ####[facility] [address] [place], [address] Bilirubin [Mass/Vol] 0.10 mg/dL Low 0.20-1.00 [facility] Comment on above: Result Comment: For patients on eltrombopag therapy, use of Dimension [place] TBIL is not recommended. Performed By: #### L 3890.4000, L500.4050 ####[facility] [address] [place], [address] BUN/CRE 12.2 RATIO Normal 10-20 [facility] Comment on above: Performed By: #### L 3890.4000, L500.4050 ####[facility] [address] [place], [address] CA,Total 7.3 mg/dL Low 8.5-10.1 [facility] Comment on above: Performed By: #### L 3890.4000, L500.4050 ####[facility] [address] [place], [address] Chloride [Moles/Vol] 99 mmol/L Normal 98-107 [facility] Comment on above: Performed By: #### L 3890.4000, L500.4050 ####[facility] [address] [place], [address] CO2 [Moles/Vol] 20.0 mmol/L Low 21.0-32.0 [facility] Comment on above: Performed By: #### L 3890.4000, L500.4050 ####[facility] [address] [place], [address] Creatinine [Mass/Vol] 1.31 mg/dL High 0.55-1.02 [facility] Comment on above: Result Comment: The validity of the calculated GFR GFRAA in patients over70 years has not been determined. Clinical correlation isessential. Performed By: #### L 3890.4000, L500.4050 ####[facility] [address] [place], [address] ECRCL 67.66 ml/min Normal [facility] Comment on above: Performed By: #### L 3890.4000, L500.4050 ####[facility] [address] [place], [address] EST GFR - AA 61 mL/min Normal >60 [facility] Comment on above: Result Comment: Afri can [place] GFR Calc Performed By: #### L 3890.4000, L500.4050 ####[facility] [address] [place], [address] GAP 10 Normal 5-15 [facility] Comment on above: Performed By: #### L 3890.4000, L500.4050 ####[facility] [address] [place], [address] GFR/1.73 sq M.predicted among non-blacks MDRD (S/P/Bld) [Vol rate/Area] 50 mL/min/{1.73_m2} Low >60 [facility] Comment on above: Result Comment: Non- GFR Calc Performed By: #### L 3890.3999, L500.4050 ####[facility] [address] [place], [address] Globulin (S) [Mass/Vol] 3.6 g/dL Normal 2.2-4.2 [facility] Comment on above: Performed By: #### L 3890.3999, L500.4050 ####[facility] [address] [place], [address] Glucose [Mass/Vol] 203 mg/dL High 74-106 [facility] Comment on above: Result Comment: Gluc ose result greater than or equal to 200 mg/dLsuggests DIABETES MELLITUS per A.D.A. criteria. Performed By: #### L 3890.3999, L500.4050 ####[facility] [address] [place], [address] Potassium [Moles/Vol] 4.3 mmol/L Normal 3.5-5.1 [facility] Comment on above: Performed By: #### L 3890.3999, L500.4050 ####[facility] [address] [place], [address] Sodium [Moles/Vol] 128 mmol/L Low 136-145 [facility] Comment on above: Performed By: #### L 3890.3999, L500.4050 ####[facility] [address] [place], [address] T PROT 5.2 g/dL Low 6.4-8.2 [facility] Comment on above: Performed By: #### L 3890.4000, L500.4050 ####[facility] [address] [place], [address] Urea nitrogen [Mass/Vol] 16 mg/dL Normal 7-18 [facility] Comment on above: Performed By: #### L 3890.4000, L500.4050 ####[facility] [address] [place], [address] ALB Normal 3.2-5.0 [facility] Comment on above: Result Comment: @DUP LICATE Performed By: #### L 500.4050 ####[facility] [address] [place], [address] ALK P Normal 45-117 [facility] Comment on above: Result Comment: @DUP LICATE Performed By: #### L 500.4050 ####[facility] [address] [place], [address] ALT Normal 13-56 [facility] Comment on above: Result Comment: @DUP LICATE Performed By: #### L 500.4050 ####[facility] [address] [place], [address] AST Normal 15-37 [facility] Comment on above: Result Comment: @DUP LICATE Performed By: #### L 500.4050 ####[facility] [address] [place], [address] BUN Normal 7-18 [facility] Comment on above: Result Comment: @DUP LICATE Performed By: #### L 500.4050 ####[facility] [address] [place], [address] BUN/CRE Normal 10-20 [facility] Comment on above: Result Comment: @DUP LICATE Performed By: #### L 500.4050 ####[facility] [address] [place], [address] CA,Total Normal 8.5-10.1 [facility] Comment on above: Result Comment: @DUP LICATE Performed By: #### L 500.4050 ####[facility] [address] [place], [address] CL Normal 98-107 [facility] Comment on above: Result Comment: @DUP LICATE Performed By: #### L 500.4050 ####[facility] [address] [place], [address] CO2 Normal 21.0-32.0 [facility] Comment on above: Result Comment: @DUP LICATE Performed By: #### L 500.4050 ####[facility] [address] [place], [address] CREAT,SERUM Normal 0.55-1.02 [facility] Comment on above: Result Comment: @DUP LICATE Performed By: #### L 500.4050 ####[facility] [address] [place], [address] EST GFR Normal >60 [facility] Comment on above: Result Comment: @DUP LICATE Performed By: #### L 500.4050 ####[facility] [address] [place], [address] EST GFR - AA Normal >60 [facility] Comment on above: Result Comment: @DUP LICATE Performed By: #### L 500.4050 ####[facility] [address] [place], [address] GAP Normal 5-15 [facility] Comment on above: Result Comment: @DUP LICATE Performed By: #### L 500.4050 ####[facility] [address] [place], [address] GLU Normal 74-106 [facility] Comment on above: Result Comment: @DUP LICATE Performed By: #### L 500.4050 ####[facility] [address] [place], [address] Potassium Normal 3.5-5.1 [facility] Comment on above: Result Comment: @DUP LICATE Performed By: #### L 500.4050 ####[facility] [address] [place], [address] T BILI Normal 0.20-1.00 [facility] Comment on above: Result Comment: @DUP LICATE Performed By: #### L 500.4050 ####[facility] [address] [place], [address] T PROT Normal 6.4-8.2 [facility] Comment on above: Result Comment: @DUP LICATE Performed By: #### L 500.4050 ####[facility] [address] [place], [address] Comprehensive Metabolic Profil Normal 136-145 [facility] Comment on above: Result Comment: @DUP LICATE Performed By: #### L 500.4050 ####[facility] [address] [place], [address] Albumin [Mass/Vol] 1.5 g/dL Low 3.2-5.0 [facility] Comment on above: Order Comment: ARGENTINA Polanco PREVIOUS SPECIMEN REJECTED DUE TOPOSSIBLE CONTAMINATION. 11/07/24 0342 Zeferino Garcia. Performed By: #### L 500.4050, L501.5200 ####[facility] [address] [place], [address] Albumin/Globulin [Mass ratio] 0.5 {ratio} Low 0.9-2.4 [facility] Comment on above: Order Comment: REDRA W. PREVIOUS SPECIMEN REJECTED DUE TOPOSSIBLE CONTAMINATION. 11/07/24341 Zeferino R Garcia. Performed By: #### L 500.4050, L501.5200 ####[facility] [address] [place], [address] ALK P 111 U/L Normal 45-117 [facility] Comment on above: Order Comment: REDRA W. PREVIOUS SPECIMEN REJECTED DUE TOPOSSIBLE CONTAMINATION. 11/07/24341 Zeferino R Garcia. Performed By: #### L 500.4050, L501.5200 ####[facility] [address] [place], [address] ALT [Catalytic activity/Vol] 14 U/L Normal 13-56 [facility] Comment on above: Order Comment: REDRA W. PREVIOUS SPECIMEN REJECTED DUE TOPOSSIBLE CONTAMINATION. 11/07/24341 Zeferino R Garcia. Performed By: #### L 500.4050, L501.5200 ####[facility] [address] [place], [address] AST [Catalytic activity/Vol] 21 U/L Normal 15-37 [facility] Comment on above: Order Comment: REDRA W. PREVIOUS SPECIMEN REJECTED DUE TOPOSSIBLE CONTAMINATION. 11/07/24341 Zeferino R Garcia. Performed By: #### L 500.4050, L501.5200 ####[facility] [address] [place], [address] Bilirubin [Mass/Vol] 0.20 mg/dL Normal 0.20-1.00 [facility] Comment on above: Order Comment: REDRA W. PREVIOUS SPECIMEN REJECTED DUE TOPOSSIBLE CONTAMINATION. 11/07/24341 Zeferino R Garcia. Result Comment: For patients on eltrombopag therapy, use of Dimension [place] TBIL is not recommended. Performed By: #### L 500.4050, L501.5200 ####[facility] [address] [place], [address] BUN/CRE 12.9 RATIO Normal 10-20 [facility] Comment on above: Order Comment: REDRA W. PREVIOUS SPECIMEN REJECTED DUE TOPOSSIBLE CONTAMINATION. 11/07/24341 Zeferino R Garcia. Performed By: #### L 500.4050, L501.5200 ####[facility] [address] [place], [address] CA,Total 7.7 mg/dL Low 8.5-10.1 [facility] Comment on above: Order Comment: REDRA W. PREVIOUS SPECIMEN REJECTED DUE TOPOSSIBLE CONTAMINATION. 11/07/24341 Zeferino R Garcia. Performed By: #### L 500.4050, L501.5200 ####[facility] [address] [place], [address] Chloride [Moles/Vol] 101 mmol/L Normal 98-107 [facility] Comment on above: Order Comment: REDRA W. PREVIOUS SPECIMEN REJECTED DUE TOPOSSIBLE CONTAMINATION. 11/07/24341 Zeferino R Garcia. Performed By: #### L 500.4050, L501.5200 ####[facility] [address] [place], [address] CO2 [Moles/Vol] 21.0 mmol/L Normal 21.0-32.0 [facility] Comment on above: Order Comment: REDRA W. PREVIOUS SPECIMEN REJECTED DUE TOPOSSIBLE CONTAMINATION. 11/07/24341 Zeferino R Garcia. Performed By: #### L 500.4050, L501.5200 ####[facility] [address] [place], [address] Creatinine [Mass/Vol] 1.40 mg/dL High 0.55-1.02 [facility] Comment on above: Order Comment: REDRA W. PREVIOUS SPECIMEN REJECTED DUE TOPOSSIBLE CONTAMINATION. 11/07/24341 Zeferino R Garcia. Result Comment: The validity of the calculated GFR GFRAA in patients over70 years has not been determined. Clinical correlation isessential. Performed By: #### L 500.4050, L501.5200 ####[facility] [address] [place], [address] EST GFR - AA 56 mL/min Low >60 [facility] Comment on above: Order Comment: RED W. PREVIOUS SPECIMEN REJECTED DUE TOPOSSIBLE CONTAMINATION. 11/07/24341 Zeferino R Garcia. Result Comment: Afri can [place] GFR Calc Performed By: #### L 500.4050, L501.5200 ####[facility] [address] [place], [address] GAP 7 Normal 5-15 [facility] Comment on above: Order Comment: RED W. PREVIOUS SPECIMEN REJECTED DUE TOPOSSIBLE CONTAMINATION. 11/07/24341 Zeferino R Garcia. Performed By: #### L 500.4050, L501.5200 ####[facility] [address] [place], [address] GFR/1.73 sq M.predicted among non-blacks MDRD (S/P/Bld) [Vol rate/Area] 46 mL/min/{1.73_m2} Low >60 [facility] Comment on above: Order Comment: REDRA W. PREVIOUS SPECIMEN REJECTED DUE TOPOSSIBLE CONTAMINATION. 11/07/24341 Zeferino R Garcia. Result Comment: Non- GFR Calc Performed By: #### L 500.4050, L501.5200 ####[facility] [address] [place], [address] Globulin (S) [Mass/Vol] 3.3 g/dL Normal 2.2-4.2 [facility] Comment on above: Order Comment: RED W. PREVIOUS SPECIMEN REJECTED DUE TOPOSSIBLE CONTAMINATION. 11/07/24341 Zeferino R Garcia. Performed By: #### L 500.4050, L501.5200 ####[facility] [address] [place], [address] Glucose [Mass/Vol] 315 mg/dL High 74-106 [facility] Comment on above: Order Comment: REDRA W. PREVIOUS SPECIMEN REJECTED DUE TOPOSSIBLE CONTAMINATION. 11/07/24341 Zeferino R Garcia. Result Comment: Gluc ose result greater than or equal to 200 mg/dLsuggests DIABETES MELLITUS per A.D.A. criteria. Performed By: #### L 500.4050, L501.5200 ####[facility] [address] [place], [address] Potassium [Moles/Vol] 5.3 mmol/L High 3.5-5.1 [facility] Comment on above: Order Comment: REDRA W. PREVIOUS SPECIMEN REJECTED DUE TOPOSSIBLE CONTAMINATION. 11/07/24341 Zeferino R Garcia. Performed By: #### L 500.4050, L501.5200 ####[facility] [address] [place], [address] Sodium [Moles/Vol] 130 mmol/L Low 136-145 [facility] Comment on above: Order Comment: REDRA W. PREVIOUS SPECIMEN REJECTED DUE TOPOSSIBLE CONTAMINATION. 11/07/24341 Zeferino R Garcia. Performed By: #### L 500.4050, L501.5200 ####[facility] [address] [place], [address] T PROT 4.8 g/dL Low 6.4-8.2 [facility] Comment on above: Order Comment: REDRA W. PREVIOUS SPECIMEN REJECTED DUE TOPOSSIBLE CONTAMINATION. 11/07/24341 Zeferino R Garcia. Performed By: #### L 500.4050, L501.5200 ####[facility] [address] [place], [address] Urea nitrogen [Mass/Vol] 18 mg/dL Normal 7-18 [facility] Comment on above: Order Comment: REDRA W. PREVIOUS SPECIMEN REJECTED DUE TOPOSSIBLE CONTAMINATION. 11/07/24341 Zeferino R Garcia. Performed By: #### L 500.4050, L501.5200 ####[facility] [address] [place], [address] ALB Normal 3.2-5.0 [facility] Comment on above: Result Comment: This specimen has been REJECTED due to Laboratory criteria:POSSIBLE Contamination.[email or web address] has been notified of need of recollection. Performed By: #### L 500.4050 ####[facility] [address] [place], [address] ALK P Normal 45-117 [facility] Comment on above: Result Comment: This specimen has been REJECTED due to Laboratory criteria:POSSIBLE Contamination.[email or web address] has been notified of need of recollection. Performed By: #### L 500.4050 ####[facility] [address] [place], [address] ALT Normal 13-56 [facility] Comment on above: Result Comment: This specimen has been REJECTED due to Laboratory criteria:POSSIBLE Contamination.[email or web address] has been notified of need of recollection. Performed By: #### L 500.4050 ####[facility] [address] [place], [address] AST Normal 15-37 [facility] Comment on above: Result Comment: This specimen has been REJECTED due to Laboratory criteria:POSSIBLE Contamination.[email or web address] has been notified of need of recollection. Performed By: #### L 500.4050 ####[facility] [address] [place], [address] BUN Normal 7-18 [facility] Comment on above: Result Comment: This specimen has been REJECTED due to Laboratory criteria:POSSIBLE Contamination.[email or web address] has been notified of need of recollection. Performed By: #### L 500.4050 ####[facility] [address] [place], [address] BUN/CRE Normal 10-20 [facility] Comment on above: Result Comment: This specimen has been REJECTED due to Laboratory criteria:POSSIBLE Contamination.[email or web address] has been notified of need of recollection. Performed By: #### L 500.4050 ####[facility] [address] [place], [address] CA,Total Normal 8.5-10.1 [facility] Comment on above: Result Comment: This specimen has been REJECTED due to Laboratory criteria:POSSIBLE Contamination.[email or web address] has been notified of need of recollection. Performed By: #### L 500.4050 ####[facility] [address] [place], [address] CL Normal 98-107 [facility] Comment on above: Result Comment: This specimen has been REJECTED due to Laboratory criteria:POSSIBLE Contamination.[email or web address] has been notified of need of recollection. Performed By: #### L 500.4050 ####[facility] [address] [place], [address] CO2 Normal 21.0-32.0 [facility] Comment on above: Result Comment: This specimen has been REJECTED due to Laboratory criteria:POSSIBLE Contamination.[email or web address] has been notified of need of recollection. Performed By: #### L 500.4050 ####[facility] [address] [facility] [address] CREAT,SERUM Normal 0.55-1.02 [facility] Comment on above: Result Comment: This specimen has been REJECTED due to Laboratory criteria:POSSIBLE Contamination.[email or web address] has been notified of need of recollection. Performed By: #### L 500.4050 ####[facility] [address] [facility] [address] EST GFR Normal >60 [facility] Comment on above: Result Comment: This specimen has been REJECTED due to Laboratory criteria:POSSIBLE Contamination.[email or web address] has been notified of need of recollection. Performed By: #### L 500.4050 ####[facility] [address] [place], [address] EST GFR - AA Normal >60 [facility] Comment on above: Result Comment: This specimen has been REJECTED due to Laboratory criteria:POSSIBLE Contamination.[email or web address] has been notified of need of recollection. Performed By: #### L 500.4050 ####[facility] [address] [place], [address] GAP Normal 5-15 [facility] Comment on above: Result Comment: This specimen has been REJECTED due to Laboratory criteria:POSSIBLE Contamination.[email or web address] has been notified of need of recollection. Performed By: #### L 500.4050 ####[facility] [address] [place], [address] GLU Normal 74-106 [facility] Comment on above: Result Comment: This specimen has been REJECTED due to Laboratory criteria:POSSIBLE Contamination.[email or web address] has been notified of need of recollection. Performed By: #### L 500.4050 ####[facility] [address] [place], [address] Potassium Normal 3.5-5.1 [facility] Comment on above: Result Comment: This specimen has been REJECTED due to Laboratory criteria:POSSIBLE Contamination.[email or web address] has been notified of need of recollection. Performed By: #### L 500.4050 ####[facility] [address] [place], [address] T BILI Normal 0.20-1.00 [facility] Comment on above: Result Comment: This specimen has been REJECTED due to Laboratory criteria:POSSIBLE Contamination.[email or web address] has been notified of need of recollection. Performed By: #### L 500.4050 ####[facility] [address] [place], [address] T PROT Normal 6.4-8.2 [facility] Comment on above: Result Comment: This specimen has been REJECTED due to Laboratory criteria:POSSIBLE Contamination.[email or web address] has been notified of need of recollection. Performed By: #### L 500.4050 ####[facility] [address] [place], [address] Comprehensive Metabolic Profil Normal 136-145 [facility] Comment on above: Result Comment: This specimen has been REJECTED due to Laboratory criteria:POSSIBLE Contamination.[email or web address] has been notified of need of recollection. Performed By: #### L 500.4050 ####[facility] [address] [place], [address] Hemoglobin A1con 11-07-2024 HbA1c (Bld) [Mass fraction] 9.7 % High 3.8-5.6 [facility] Comment on above: Order Comment: REDRA W. PREVIOUS SPECIMEN REJECTED DUE TOCONTAMINATION. 11/07/24348 Zeferino R Garcia. Result Comment: Norm al < 5.7 % Prediabetic 5.7 - 6.4 % Diabetic >or= 6.5 % Please note range changes. Performed By: #### L 501.9985 ####[facility] [address] [place], [address] HbA1c (Bld) [Mass fraction] 10.3 % High 3.8-5.6 [facility] Comment on above: Order Comment: This specimen [...] range changes. Performed By: #### L 501.9985 ####[facility] [address] [place], [place], [address] Magnesiumon 11-07-2024 Magnesium [Mass/Vol] 4.3 mg/dL High 1.6-2.6 [facility] Comment on above: Result Comment: Mode rate Hemolysis, Result may be falsely increased. Performed By: #### L 501.5200 ####[facility] [address] [place], [address] Magnesium [Mass/Vol] 8.1 mg/dL Invalid Interpretation Code 1.6-2.6 [facility] Comment on above: Order Comment: Comme nts: Add onto previous sample please Result Comment: Crit ical Result(s) Called at: 13:52:08 11/07/2024 by:Tesha Weems to [facility]. Results read back by same. Performed By: #### L 501.5200 ####[facility] [address] [place], [address] Magnesium [Mass/Vol] 6.2 mg/dL Invalid Interpretation Code 1.6-2.6 [facility] Comment on above: Order Comment: REDRA W. PREVIOUS SPECIMEN REJECTED DUE TOPOSSIBLE CONTAMINATION. 11/07/24 0342 Zeferino Garcia. Result Comment: Crit ical Result(s) Called at: 04:01:56 11/07/2024 by: TO TMMAINE [employer]PERATIONS COORDINATOR. SPOKE ABOUT RESULTS, NURSE OKWITH THEM. Results read back by same. Performed By: #### L 500.4050, L501.5200 ####[facility] [address] [place], [address] Partial Thromboplast Timeon 11-07-2024 aPTT Coag (Bld) [Time] 25.5 s Normal 24.1-36.2 [facility] Comment on above: Performed By: #### L 300.3900, L300.4310 ####[facility] [address] [place], [address] Prothrombin Time w/INRon INR Coag (PPP) [Relative time] 0.9 {INR} Normal [facility] Comment on above: Performed By: #### L 300.3900, L300.4310 ####[facility] [address] [place], [address] PT Coag (PPP) [Time] 12.8 s Normal 11.7-14.9 [facility] Comment on above: Performed By: #### L 300.3900, L300.4310 ####[facility] [address] [place], [address] Venous Blood Gason 5 Blood Gas Type ALBERTO Normal [facility] Comment on above: Performed By: #### L 9000.0810 ####[facility] [address] [place], [address] CO2 [Moles/Vol] 16 mmol/L Low 23-33 [facility] Comment on above: Performed By: #### L 9000.0810 ####[facility] [address] [place], [address] FI02 21.0 Normal [facility] Comment on above: Performed By: #### L 9000.0810 ####[facility] [address] [place], [address] HCO3 (Bld) [Moles/Vol] 16 mmol/L Low 22-26 [facility] Comment on above: Performed By: #### L 9000.0810 ####[facility] [address] [place], [address] O2 Delivery Dev Not entered [facility] Comment on above: Performed By: #### L 9000.0810 ####[facility] [address] [place], [address] SITE Not entered [facility] Comment on above: Performed By: #### L 9000.0810 ####[facility] [address] [place], [address] VBG BE -10 mmol/L Low -1.0-3.5 [facility] Comment on above: Performed By: #### L 9000.0810 ####[facility] [address] [place], [address] VBG pCO2 28.6 mmHg Low 41-51 [facility] Comment on above: Performed By: #### L 9000.0810 ####[facility] [address] [place], [address] VBG pH 7.34 Normal 7.32-7.42 [facility] Comment on above: Performed By: #### L 9000.0810 ####[facility] [address] [place], [address] VBG PO2 49 mmHg High 25-40 [facility] Comment on above: Performed By: #### L 9000.0810 ####[facility] [address] [place], [address] VBG SO2 83 High 50-70 [facility] Comment on above: Performed By: #### L 9000.0810 ####[facility] [address] [place], [address] Amphetamine, UR Confirmon AMP UR CONFIRM Normal [facility] Comment on above: Result Comment: WRON G CONTAINER SENT TO [facility] Performed By: #### L 3380.2100, L3890.6300, L3890.6100, L505.5002 ####[facility] [address] [place], [address] BRCon 11-06-2024 RC Normal [facility] Comment on above: Result Comment: [id number] AP RC NOT [id number] AP RC TRANSFUSED 11/07/24 0325 Performed By: #### B RC ####[facility] [address] [place], [address] CBC W/Diff, Automatedon Absolute Lymph 2.21 X10 3/uL Normal 0.83-4.51 [facility] Comment on above: Performed By: #### L 100.0100, L3890.6005, L400.0001, L3410.9999 ####[facility] [address] [place], [address] Absolute Neut 15.2 X10 3/uL High 2.0-7.7 [facility] Comment on above: Performed By: #### L 100.0100, L3890.6005, L400.0001, L3410.9999 ####[facility] [address] [place], [address] Basophils/100 WBC (Bld) 0.3 % Normal 0-1 [facility] Comment on above: Performed By: #### L 100.0100, L3890.6005, L400.0001, L3410.9999 ####[facility] [address] [place], [address] Eosinophils/100 WBC (Bld) 0.0 % Normal 0-5 [facility] Comment on above: Performed By: #### L 100.0100, L3890.6005, L400.0001, L3410.9999 ####[facility] [address] [place], [address] Erythrocyte distribution width (RBC) [Ratio] 14.6 % Normal 11.6-14.6 [facility] Comment on above: Performed By: #### L 100.0100, L3890.6005, L400.0001, L3410.9999 ####[facility] [address] [place], [address] Hematocrit (Bld) [Volume fraction] 37.4 % Normal 37-47 [facility] Comment on above: Performed By: #### L 100.0100, L3890.6005, L400.0001, L3410.9999 ####[facility] [address] [place], [address] Hemoglobin (Bld) [Mass/Vol] 12.5 g/dL Normal 12.0-15.0 [facility] Comment on above: Performed By: #### L 100.0100, L3890.6005, L400.0001, L3410.9999 ####[facility] [address] [place], [address] IG% 1.100 High 0.0-0.9 [facility] Comment on above: Result Comment: IG% - Immature Granulocytes (promyelocytes, myelocytes andmetamyelocytes) > 1% indicates that a LEFT SHIFT is Present. Performed By: #### L 100.0100, L3890.6005, L400.0001, L3410.9999 ####[facility] [address] [place], [address] Lymphocytes/100 WBC (Bld) 11.9 % Low 19-41 [facility] Comment on above: Performed By: #### L 100.0100, L3890.6005, L400.0001, L3410.9999 ####[facility] [address] [place], [address] MCH (RBC) [Entitic mass] 26.7 pg Low 27.0-32.0 [facility] Comment on above: Performed By: #### L 100.0100, L3890.6005, L400.0001, L3410.9999 ####[facility] [address] [place], [address] MCHC (RBC) [Mass/Vol] 33.4 g/dL Normal 32-36 [facility] Comment on above: Performed By: #### L 100.0100, L3890.6005, L400.0001, L3410.9999 ####[facility] [address] [place], [address] MCV (RBC) [Entitic vol] 79.9 fL Low 81-99 [facility] Comment on above: Performed By: #### L 100.0100, L3890.6005, L400.0001, L3410.9999 ####[facility] [address] [place], [address] Monocytes/100 WBC (Bld) 4.8 % Normal 0-10 [facility] Comment on above: Performed By: #### L 100.0100, L3890.6005, L400.0001, L3410.9999 ####[facility] [address] [place], [address] Neutrophils/100 WBC (Bld) 81.9 % High 47-70 [facility] Comment on above: Performed By: #### L 100.0100, L3890.6005, L400.0001, L3410.9999 ####[facility] [address] [place], [address] Nucleated RBC (Bld) [#/Vol] 0 10*3/uL Normal 0-5 [facility] Comment on above: Performed By: #### L 100.0100, L3890.6005, L400.0001, L3410.9999 ####[facility] [address] [place], [address] Platelet mean volume (Bld) [Entitic vol] 11.6 fL Normal 6.2-12.0 [facility] Comment on above: Performed By: #### L 100.0100, L3890.6005, L400.0001, L3410.9999 ####[facility] [address] [place], [address] Platelets (Bld) [#/Vol] 152 10*3/uL Normal 150-450 [facility] Comment on above: Performed By: #### L 100.0100, L3890.6005, L400.0001, L3410.9999 ####[facility] [address] [place], [address] RBC (Bld) [#/Vol] 4.68 10*6/uL Normal 4.2-5.4 [facility] Comment on above: Performed By: #### L 100.0100, L3890.6005, L400.0001, L3410.9999 ####[facility] [address] [place], [address] RDW SD 41.6 fl Normal 35.1-43.9 [facility] Comment on above: Performed By: #### L 100.0100, L3890.6005, L400.0001, L3410.9999 ####[facility] [address] [place], [address] WBC (Bld) [#/Vol] 18.6 10*3/uL High 4.4-11.0 [facility] Comment on above: Performed By: #### L 100.0100, L3890.6005, L400.0001, L3410.9999 ####[facility] [address] [place], [address] Absolute Neut Normal 2.0-7.7 [facility] Comment on above: Result Comment: DUPL ICATE ORDER. SEE H247 FOR RESULTS Performed By: #### L 100.0100 ####[facility] [address] [place], [address] HCT Normal 37-47 [facility] Comment on above: Result Comment: DUPL ICATE ORDER. SEE H247 FOR RESULTS Performed By: #### L 100.0100 ####[facility] [address] [place], [address] HGB Normal 12.0-15.0 [facility] Comment on above: Result Comment: DUPL ICATE ORDER. SEE H247 FOR RESULTS Performed By: #### L 100.0100 ####[facility] [address] [place], [address] MCH Normal 27.0-32.0 [facility] Comment on above: Result Comment: DUPL ICATE ORDER. SEE H247 FOR RESULTS Performed By: #### L 100.0100 ####[facility] [address] [place], [address] MCHC Normal 32-36 [facility] Comment on above: Result Comment: DUPL ICATE ORDER. SEE H247 FOR RESULTS Performed By: #### L 100.0100 ####[facility] [address] [place], [address] MCV Normal 81-99 [facility] Comment on above: Result Comment: DUPL ICATE ORDER. SEE H247 FOR RESULTS Performed By: #### L 100.0100 ####[facility] [address] [place], [address] NEUT% Normal 47-70 [facility] Comment on above: Result Comment: DUPL ICATE ORDER. SEE H247 FOR RESULTS Performed By: #### L 100.0100 ####[facility] [address] [place], [address] PLT Normal 150-450 [facility] Comment on above: Result Comment: DUPL ICATE ORDER. SEE H247 FOR RESULTS Performed By: #### L 100.0100 ####[facility] [address] [place], [address] RBC Normal 4.2-5.4 [facility] Comment on above: Result Comment: DUPL ICATE ORDER. SEE H247 FOR RESULTS Performed By: #### L 100.0100 ####[facility] [address] [place], [address] RDW CV Normal 11.6-14.6 [facility] Comment on above: Result Comment: DUPL ICATE ORDER. SEE H247 FOR RESULTS Performed By: #### L 100.0100 ####[facility] [address] [place], [address] RDW SD Normal 35.1-43.9 [facility] Comment on above: Result Comment: DUPL ICATE ORDER. SEE H247 FOR RESULTS Performed By: #### L 100.0100 ####[facility] [address] [place], [address] WBC Normal 4.4-11.0 [facility] Comment on above: Result Comment: DUPL ICATE ORDER. SEE H247 FOR RESULTS Performed By: #### L 100.0100 ####[facility] [address] [place], [address] Absolute Lymph 3.91 X10 3/uL Normal 0.83-4.51 [facility] Comment on above: Performed By: #### L 300.3900, L300.4310, L100.0100, L300.4700 ####[facility] [address] [place], [address] Absolute Neut 6.5 X10 3/uL Normal 2.0-7.7 [facility] Comment on above: Performed By: #### L 300.3900, L300.4310, L100.0100, L300.4700 ####[facility] [address] [place], [address] Basophils/100 WBC (Bld) 0.3 % Normal 0-1 [facility] Comment on above: Performed By: #### L 300.3900, L300.4310, L100.0100, L300.4700 ####[facility] [address] [place], [address] Eosinophils/100 WBC (Bld) 0.1 % Normal 0-5 [facility] Comment on above: Performed By: #### L 300.3900, L300.4310, L100.0100, L300.4700 ####[facility] [address] [place], [address] Erythrocyte distribution width (RBC) [Ratio] 14.4 % Normal 11.6-14.6 [facility] Comment on above: Performed By: #### L 300.3900, L300.4310, L100.0100, L300.4700 ####[facility] [address] [place], [address] Hematocrit (Bld) [Volume fraction] 42.1 % Normal 37-47 [facility] Comment on above: Performed By: #### L 300.3900, L300.4310, L100.0100, L300.4700 ####[facility] [address] [place], [address] Hemoglobin (Bld) [Mass/Vol] 13.5 g/dL Normal 12.0-15.0 [facility] Comment on above: Performed By: #### L 300.3900, L300.4310, L100.0100, L300.4700 ####[facility] [address] [place], [address] IG% 1.300 High 0.0-0.9 [facility] Comment on above: Result Comment: IG% - Immature Granulocytes (promyelocytes, myelocytes andmetamyelocytes) > 1% indicates that a LEFT SHIFT is Present. Performed By: #### L 300.3900, L300.4310, L100.0100, L300.4700 ####[facility] [address] [place], [address] Lymphocytes/100 WBC (Bld) 34.7 % Normal 19-41 [facility] Comment on above: Performed By: #### L 300.3900, L300.4310, L100.0100, L300.4700 ####[facility] [address] [place], [address] MCH (RBC) [Entitic mass] 26.0 pg Low 27.0-32.0 [facility] Comment on above: Performed By: #### L 300.3900, L300.4310, L100.0100, L300.4700 ####[facility] [address] [place], [address] MCHC (RBC) [Mass/Vol] 32.1 g/dL Normal 32-36 [facility] Comment on above: Performed By: #### L 300.3900, L300.4310, L100.0100, L300.4700 ####[facility] [address] [place], [address] MCV (RBC) [Entitic vol] 81.0 fL Normal 81-99 [facility] Comment on above: Performed By: #### L 300.3900, L300.4310, L100.0100, L300.4700 ####[facility] [address] [place], [address] Monocytes/100 WBC (Bld) 5.9 % Normal 0-10 [facility] Comment on above: Performed By: #### L 300.3900, L300.4310, L100.0100, L300.4700 ####[facility] [address] [place], [address] Neutrophils/100 WBC (Bld) 57.7 % Normal 47-70 [facility] Comment on above: Performed By: #### L 300.3900, L300.4310, L100.0100, L300.4700 ####[facility] [address] [place], [address] Nucleated RBC (Bld) [#/Vol] 0 10*3/uL Normal 0-5 [facility] Comment on above: Performed By: #### L 300.3900, L300.4310, L100.0100, L300.4700 ####[facility] [address] [place], [address] Platelet mean volume (Bld) [Entitic vol] 12.0 fL Normal 6.2-12.0 [facility] Comment on above: Performed By: #### L 300.3900, L300.4310, L100.0100, L300.4700 ####[facility] [address] [place], [address] Platelets (Bld) [#/Vol] 166 10*3/uL Normal 150-450 [facility] Comment on above: Performed By: #### L 300.3900, L300.4310, L100.0100, L300.4700 ####[facility] [address] [place], [address] RBC (Bld) [#/Vol] 5.20 10*6/uL Normal 4.2-5.4 [facility] Comment on above: Performed By: #### L 300.3900, L300.4310, L100.0100, L300.4700 ####[facility] [address] [place], [address] RDW SD 41.5 fl Normal 35.1-43.9 [facility] Comment on above: Performed By: #### L 300.3900, L300.4310, L100.0100, L300.4700 ####[facility] [address] [place], [address] WBC (Bld) [#/Vol] 11.3 10*3/uL High 4.4-11.0 [facility] Comment on above: Performed By: #### L 300.3900, L300.4310, L100.0100, L300.4700 ####[facility] [address] [place], [address] Absolute Neut Normal 2.0-7.7 [facility] Comment on above: Result Comment: DUPL ICATE. SEE 0108 H225 Performed By: #### B TS, L100.0100 ####[facility] [address] [place], [address] HCT Normal 37-47 [facility] Comment on above: Result Comment: DUPL ICATE. SEE 0108 H225 Performed By: #### B ZION, L100.0100 ####[facility] [address] [place], [address] HGB Normal 12.0-15.0 [facility] Comment on above: Result Comment: DUPL ICATE. SEE 0108 H225 Performed By: #### B ZION, L100.0100 ####[facility] [address] [place], [address] MCH Normal 27.0-32.0 [facility] Comment on above: Result Comment: DUPL ICATE. SEE 0108 H225 Performed By: #### Michelle DONOVAN, L100.0100 ####[facility] [address] [place], [address] MCHC Normal 32-36 [facility] Comment on above: Result Comment: DUPL ICATE. SEE 0108 H225 Performed By: #### Michelle DONOVAN, L100.0100 ####[facility] [address] [place], [address] MCV Normal 81-99 [facility] Comment on above: Result Comment: DUPL ICATE. SEE 0108 H225 Performed By: #### Michelle DONOVAN, L100.0100 ####[facility] [address] [place], [address] NEUT% Normal 47-70 [facility] Comment on above: Result Comment: DUPL ICATE. SEE 0108 H225 Performed By: #### Michelle DONOVAN, L100.0100 ####[facility] [address] [place], [address] PLT Normal 150-450 [facility] Comment on above: Result Comment: DUPL ICATE. SEE 0108 H225 Performed By: #### B ZION, L100.0100 ####[facility] [address] [place], [address] RBC Normal 4.2-5.4 [facility] Comment on above: Result Comment: DUPL ICATE. SEE 0108 H225 Performed By: #### B ZION, L100.0100 ####[facility] [address] [place], [address] RDW CV Normal 11.6-14.6 [facility] Comment on above: Result Comment: DUPL ICATE. SEE 0108 H225 Performed By: #### B , L100.0100 ####[facility] [address] [place], [address] RDW SD Normal 35.1-43.9 [facility] Comment on above: Result Comment: DUPL ICATE. SEE 010 H225 Performed By: #### Michelle , L100.0100 ####[facility] [address] [place], [address] WBC Normal 4.4-11.0 [facility] Comment on above: Result Comment: DUPL ICATE. SEE 0108 H225 Performed By: #### Michelle , L100.0100 ####[facility] [address] [place], [address] Comprehensive Metabolic Prof maon 11-06-2024 Albumin [Mass/Vol] 1.5 g/dL Low 3.2-5.0 [facility] Comment on above: Performed By: #### L 500.4050, L501.0900 ####[facility] [address] [place], [address] Albumin/Globulin [Mass ratio] 0.5 {ratio} Low 0.9-2.4 [facility] Comment on above: Performed By: #### L 500.4050, L501.0900 ####[facility] [address] [place], [address] ALK P 114 U/L Normal 45-117 [facility] Comment on above: Performed By: #### L 500.4050, L501.0900 ####[facility] [address] [place], [address] ALT [Catalytic activity/Vol] 13 U/L Normal 13-56 [facility] Comment on above: Performed By: #### L 500.4050, L501.0900 ####[facility] [address] [place], [address] AST [Catalytic activity/Vol] 25 U/L Normal 15-37 [facility] Comment on above: Performed By: #### L 500.4050, L501.0900 ####[facility] [address] [place], [address] Bilirubin [Mass/Vol] 0.20 mg/dL Normal 0.20-1.00 [facility] Comment on above: Result Comment: For patients on eltrombopag therapy, use of Dimension [place] TBIL is not recommended. Performed By: #### L 500.4050, L501.0900 ####[facility] [address] [place], [address] BUN/CRE 12.0 RATIO Normal 10-20 [facility] Comment on above: Performed By: #### L 500.4050, L501.0900 ####[facility] [address] [place], [address] CA,Total 7.6 mg/dL Low 8.5-10.1 [facility] Comment on above: Performed By: #### L 500.4050, L501.0900 ####[facility] [address] [place], [address] Chloride [Moles/Vol] 99 mmol/L Normal 98-107 [facility] Comment on above: Performed By: #### L 500.4050, L501.0900 ####[facility] [address] [place], [address] CO2 [Moles/Vol] 21.0 mmol/L Normal 21.0-32.0 [facility] Comment on above: Performed By: #### L 500.4050, L501.0900 ####[facility] [address] [place], [address] Creatinine [Mass/Vol] 1.33 mg/dL High 0.55-1.02 [facility] Comment on above: Result Comment: The validity of the calculated GFR GFRAA in patients over70 years has not been determined. Clinical correlation isessential. Performed By: #### L 500.4050, L501.0900 ####[facility] [address] [place], [address] EST GFR - AA 60 mL/min Normal >60 [facility] Comment on above: Result Comment: Afri can [place] GFR Calc Performed By: #### L 500.4050, L501.0900 ####[facility] [address] [place], [address] GAP 8 Normal 5-15 [facility] Comment on above: Performed By: #### L 500.4050, L501.0900 ####[facility] [address] [place], [address] GFR/1.73 sq M.predicted among non-blacks MDRD (S/P/Bld) [Vol rate/Area] 49 mL/min/{1.73_m2} Low >60 [facility] Comment on above: Result Comment: Non- GFR Calc Performed By: #### L 500.4050, L501.0900 ####[facility] [address] [place], [address] Globulin (S) [Mass/Vol] 3.2 g/dL Normal 2.2-4.2 [facility] Comment on above: Performed By: #### L 500.4050, L501.0900 ####[facility] [address] [place], [address] Glucose [Mass/Vol] 289 mg/dL High 74-106 [facility] Comment on above: Result Comment: Gluc ose result greater than or equal to 200 mg/dLsuggests DIABETES MELLITUS per A.D.A. criteria. Performed By: #### L 500.4050, L501.0900 ####[facility] [address] [place], [address] Potassium [Moles/Vol] 5.6 mmol/L High 3.5-5.1 [facility] Comment on above: Performed By: #### L 500.4050, L501.0900 ####[facility] [address] [place], [address] Sodium [Moles/Vol] 128 mmol/L Low 136-145 [facility] Comment on above: Performed By: #### L 500.4050, L501.0900 ####[facility] [address] [place], [address] T PROT 4.7 g/dL Low 6.4-8.2 [facility] Comment on above: Performed By: #### L 500.4050, L501.0900 ####[facility] [address] [place], [address] Urea nitrogen [Mass/Vol] 16 mg/dL Normal 7-18 [facility] Comment on above: Performed By: #### L 500.4050, L501.0900 ####[facility] [address] [place], [address] Discharge Instructionon -0 Discharge Instruction Normal [facility] Fibrinogenon 11-06-2024 FIBRINOGEN 506 mg/dl High 203-444 [facility] Comment on above: Performed By: #### L 300.4700 ####[facility] [address] [place], [address] FIBRINOGEN 591 mg/dl High 203-444 [facility] Comment on above: Performed By: #### L 300.3900, L300.4310, L100.0100, L300.4700 ####[facility] [address] 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 Results read back by same. SEND OUT PRESUMPTIVE REACTIVE SPECIMENS TO [facility] TEST NUMBER [id number] FOR CONFIRMATION. Performed By: #### L 100.0100, L3890.6005, L400.0001, L3410.9999 ####[facility] [address] [place], [address] Hepatitis B Surface Antigeno n 11-06-2024 HEP B Surf Ag Non-Reactive Normal Nonreactive [facility] Comment on above: Order Comment: Reaso n for Exam: npc Performed By: #### L 3380.2100, L3890.6300, L3890.6100, L505.5002 ####[facility] [address] [place], [address] Hepatitis C Antibodyon 11-06 Hepatitis C AB Non-Reactive Normal Nonreactive [facility] Comment on above: Order Comment: Reaso n for Exam: npc Result Comment: Non Reactive: < 0.8 Equivocal: >/= 0.8 to < 1.0 Reactive: >/= 1.0The [facility] requires that a reactive/equivocal HCV antibodyresult be sent out for confirmation. HCV Quant by PCRtesting. Performed By: #### L 3380.2100, L3890.6300, L3890.6100, L505.5002 ####[facility] [address] [place], [address] L509.8000on 11-06-2024 Syphilis Abs Non-Reactive Normal [facility] Comment on above: Performed By: #### L 509.8000, L509.4005 ####[facility] [address] [place], [address] M8200.2203on 11-06-2024 M8200.2203 Pending Chlamydia Trachomatis PCR NEGATIVE for Chlamydia trachomatis N. gonorrhoeae PCR Negative for N. gonorrhoeae Normal [facility] Comment on above: Performed By: #### M 8200.2203 ####[facility] [address] [place], [address] Operative Reporton Operative Report Normal [facility] Partial Thromboplast Timeon 11-06-2024 aPTT Coag (Bld) [Time] 27.3 s Normal 24.1-36.2 [facility] Comment on above: Performed By: #### L 300.3900, L300.4310, L100.0100, L300.4700 ####[facility] [address] [place], [address] Protein+Creatinine Ratio,Uri neon 11-06-2024 PROT:CRE RATIO 3224 mg/g CRE High 0-200 [facility] Comment on above: Performed By: #### L 500.4050, L501.0900 ####[facility] [address] [place], [address] Protein (U) [Mass/Vol] 239.9 mg/dL High <11.9 [facility] Comment on above: Performed By: #### L 500.4050, L501.0900 ####[facility] [address] [place], [address] UR CREAT 74.40 mg/dL Normal NO RANGE EST. [facility] Comment on above: Performed By: #### L 500.4050, L501.0900 ####[facility] [address] [place], [address] Prothrombin Time w/INRon INR Coag (PPP) [Relative time] 1.0 {INR} Normal [facility] Comment on above: Performed By: #### L 300.3900, L300.4310, L100.0100, L300.4700 ####[facility] [address] [place], [address] PT Coag (PPP) [Time] 12.9 s Normal 11.7-14.9 [facility] Comment on above: Performed By: #### L 300.3900, L300.4310, L100.0100, L300.4700 ####[facility] [address] [place], [address] Rubella IgGon 11-06-2024 Rubella IgG Equiv Normal Nonreactive [facility] Comment on above: Result Comment: Anti body Results Interpretation of Immune Status Non Reactive Presumed Non-Immune Equivocal Equivocal Reactive Presumed Immune Performed By: #### L 509.8000, L509.4005 ####[facility] [address] [place], [address] Type AND Screenon 11-06-2024 ABO and Rh group Nom (Bld) Blood group A Rh(D) positive Normal [facility] Comment on above: Order Comment: SC-SE CTION Performed By: #### B TS, L100.0100 ####[facility] [address] [place], [address] Ur Drg Scn w/Rflx AMPH Confi rmon 11-06-2024 Amphetamines Ql (U) Positive Abnormal <1000 ng/mL [facility] Comment on above: Performed By: #### L 3380.2100, L3890.6300, L3890.6100, L505.5002 ####[facility] [address] [place], [address] BARBITIURATES Negative Normal < 200 ng/mL [facility] Comment on above: Performed By: #### L 3380.2100, L3890.6300, L3890.6100, L505.5002 ####[facility] [address] [place], [address] BENZODIAZIPINE Positive Abnormal < 200 ng/mL [facility] Comment on above: Performed By: #### L 3380.2100, L3890.6300, L3890.6100, L505.5002 ####[facility] [address] [place], [place], [phone] Cocaine Ql (U) Negative Normal < 300 ng/mL [facility] Comment on above: Performed By: #### L 3380.2100, L3890.6300, L3890.6100, L505.5002 ####[facility] [address] [place], [place], [phone] ECSTACY Positive Abnormal < 500 ng/mL [facility] Comment on above: Performed By: #### L 3380.2100, L3890.6300, L3890.6100, L505.5002 ####[facility] [address] [place], [place], [phone] Methadone Ql (U) Negative Normal < 300 ng/mL [facility] Comment on above: Performed By: #### L 3380.2100, L3890.6300, L3890.6100, L505.5002 ####[facility] [address] [place], [address] Opiates Ql (U) Positive Abnormal < 300 ng/mL [facility] Comment on above: Performed By: #### L 3380.2100, L3890.6300, L3890.6100, L505.5002 ####[facility] [address] [place], [address] PCP Negative Normal < 25 ng/mL [facility] Comment on above: Performed By: #### L 3380.2100, L3890.6300, L3890.6100, L505.5002 ####[facility] [address] [place], [address] THC Negative Normal < 50 ng/mL [facility] Comment on above: Performed By: #### L 3380.2100, L3890.6300, L3890.6100, L505.5002 ####[facility] [address] [place], [address] VISTA UDS PH 5 Normal [facility] Comment on above: Performed By: #### L 3380.2100, L3890.6300, L3890.6100, L505.5002 ####[facility] [address] [place], [address] Urinalysis, Completeon 11-06 RBC 10-25 SEEN Normal 0-5 [facility] Comment on above: Order Comment: MEENAKSHI TER SPECIMEN Performed By: #### L 100.0100, L3890.6005, L400.0001, L3410.9999 ####[facility] [address] [place], [address] CAST,FINE GRAN 0-5 SEEN Normal 0-5 [facility] Comment on above: Order Comment: MEENAKSHI TER SPECIMEN Performed By: #### L 100.0100, L3890.6005, L400.0001, L3410.9999 ####[facility] [address] [place], [address] CAST,HYALINE 0-5 SEEN Normal 0-5 [facility] Comment on above: Order Comment: MEENAKSHI TER SPECIMEN Performed By: #### L 100.0100, L3890.6005, L400.0001, L3410.9999 ####[facility] [address] [place], [address] EPI,TRANSITION 5-10 SEEN Normal 0-5 [facility] Comment on above: Order Comment: MEENAKSHI TER SPECIMEN Performed By: #### L 100.0100, L3890.6005, L400.0001, L3410.9999 ####[facility] [address] [place], [address] BACTERIA 2+ /hpf Normal None Seen [facility] Comment on above: Order Comment: MEENAKSHI TER SPECIMEN Performed By: #### L 100.0100, L3890.6005, L400.0001, L3410.9999 ####[facility] [address] [place], [address] EPI,SQUAMOUS 0-5 SEEN Normal 5-10 [facility] Comment on above: Order Comment: MEENAKSHI TER SPECIMEN Performed By: #### L 100.0100, L3890.6005, L400.0001, L3410.9999 ####[facility] [address] [place], [address] WBC 25-50 SEEN Normal 0-5 [facility] Comment on above: Order Comment: MEENAKSHI TER SPECIMEN Performed By: #### L 100.0100, L3890.6005, L400.0001, L3410.9999 ####[facility] [address] [place], [address] Mucus Ql (Urine sed) 0 SEEN Normal [facility] Comment on above: Order Comment: MEENAKSHI TER SPECIMEN Performed By: #### L 100.0100, L3890.6005, L400.0001, L3410.9999 ####[facility] [address] [place], [address] Urine Drug Screen (VISTA)on 11-06-2024 AMPHETAMINES Normal <1000 ng/mL [facility] Comment on above: Result Comment: PER AMISHRN DUPLICATE Performed By: #### L 505.5000 ####[facility] [address] [place], [address] BARBITIURATES Normal < 200 ng/mL [facility] Comment on above: Result Comment: PER AMISHRN DUPLICATE Performed By: #### L 505.5000 ####[facility] [address] [facility] [address] BENZODIAZIPINE Normal < 200 ng/mL [facility] Comment on above: Result Comment: PER AMISHRN DUPLICATE Performed By: #### L 505.5000 ####[facility] [address] [place], [address] COCAINE Normal < 300 ng/mL [facility] Comment on above: Result Comment: PER AMISHRN DUPLICATE Performed By: #### L 505.5000 ####[facility] [address] [facility] [address] DRUG CONFIRM Normal [facility] Comment on above: Result Comment: PER AMISHRN DUPLICATE Performed By: #### L 505.5000 ####[facility] [address] [place], [address] ECSTACY Normal < 500 ng/mL [facility] Comment on above: Result Comment: PER AMISHRN DUPLICATE Performed By: #### L 505.5000 ####[facility] [address] [facility] [address] METHADONE Normal < 300 ng/mL [facility] Comment on above: Result Comment: PER AMISHRN DUPLICATE Performed By: #### L 505.5000 ####[facility] [address] [place], [address] OPIATES Normal < 300 ng/mL [facility] Comment on above: Result Comment: PER AMISHRN DUPLICATE Performed By: #### L 505.5000 ####[facility] [address] [facility] [address] PCP Normal < 25 ng/mL [facility] Comment on above: Result Comment: PER AMISHRN DUPLICATE Performed By: #### L 505.5000 ####[facility] [address] [place] [address] THC Normal < 50 ng/mL [facility] Comment on above: Result Comment: PER AMISHRN DUPLICATE Performed By: #### L 505.5000 ####[facility] [address] [place] [address] VISTA UDS PH Normal [facility] Comment on above: Result Comment: PER AMISHRN DUPLICATE Performed By: #### L 505.5000 ####[facility] [address] [place] [address] AMPHETAMINES Normal <1000 ng/mL [facility] Comment on above: Result Comment: Canc elled via OM: MD Ordered Performed By: #### L 505.5000 ####[facility] [address] [place], [place], [phone] BARBITIURATES Normal < 200 ng/mL [facility] Comment on above: Result Comment: Canc elled via OM: MD Ordered Performed By: #### L 505.5000 ####[facility] [address] [place] [address] BENZODIAZIPINE Normal < 200 ng/mL [facility] Comment on above: Result Comment: Canc elled via OM: MD Ordered Performed By: #### L 505.5000 ####[facility] [address] [place] [address] COCAINE Normal < 300 ng/mL [facility] Comment on above: Result Comment: Canc elled via OM: MD Ordered Performed By: #### L 505.5000 ####[facility] [address] [place], [address] DRUG CONFIRM Normal [facility] Comment on above: Result Comment: Canc elled via OM: MD Ordered Performed By: #### L 505.5000 ####[facility] [address] [place], [address] ECSTACY Normal < 500 ng/mL [facility] Comment on above: Result Comment: Canc elled via OM: MD Ordered Performed By: #### L 505.5000 ####[facility] [address] [place], [address] METHADONE Normal < 300 ng/mL [facility] Comment on above: Result Comment: Canc elled via OM: MD Ordered Performed By: #### L 505.5000 ####[facility] [address] [place], [address] OPIATES Normal < 300 ng/mL [facility] Comment on above: Result Comment: Canc elled via OM: MD Ordered Performed By: #### L 505.5000 ####[facility] [address] [place], [address] PCP Normal < 25 ng/mL [facility] Comment on above: Result Comment: Canc elled via OM: MD Ordered Performed By: #### L 505.5000 ####[facility] [address] [place], [address] THC Normal < 50 ng/mL [facility] Comment on above: Result Comment: Canc elled via OM: MD Ordered Performed By: #### L 505.5000 ####[facility] [address] [place], [address] VISTA UDS PH Normal [facility] Comment on above: Result Comment: Canc elled via OM: MD Ordered Performed By: #### L 505.5000 ####[facility] [address] [place], [address] Gram stain for investigation of transfusion reactionon 02-10-2022 Microscopic observation Gram stain Nom (Unsp spec) [facility] Work Phone: Thin prep Papanicolaou smear with manual screeningon 02-10-2022 Genital Culture Presumptive C albicans [facility] Work Phone: CNPNon [facility] BERNADETTE FAUST ([id number]) 1995 [address] [facility] Date Time Provider Department 10/15/21 KATERYNA FARAH [...] AQ) 55 mcg nasal inhaler Use 1 Cos Cob in the nose as needed. - gabapentin [...] 03/18/2013 Abdominal (more content not included)... Normal [facility] Albumin/Creat Ratioon 2020 Albumin Urine Random <12.0 Normal [facility] Comment on above: Performed By: #### U ACR ####[facility] [place], [place] [phone] Albumin/Creat Ratio Not calculated Normal <30 C [facility] Comment on above: Performed By: #### U ACR ####[facility] [place], [place] [phone] Creatinine,Urine,Ran 23.0 mg/dL Normal 20-300 [facility] Comment on above: Performed By: #### U ACR ####[facility] [place], [place] [phone] C-Peptideon 10-14-2021 C-Peptide 0.8 ng/mL Normal 0.8-3.9 [facility] Comment on above: Performed By: #### G ADCAB, LIPB, CPEPT ####[facility] [place], [place] [phone] CT NECK SOFT TISSUE W IVCONo n 10-14-2021 CT NECK SOFT TISSUE W IVCON * * *Final Report* * * DATE OF EXAM: Oct 14 2021 11:32AM [facility] 0013 - CT NECK SOFT TISSUE W [...] demonstrated enhancement/stranding suggesting infectious or inflammatory lymphadenitis. [employer]: FABIÁN Transcribe Date/Time: Oct 14 2021 11:37A Dictated by : SD VALLE MD This examination was interpreted and the report reviewed and electronically signed by: SD VALLE MD on Oct 14 2021 12:07PM EST [id number] Normal [facility] Glutamic Ac Decar Abon 10-14 Glutam Ac Dec Ab Ql Negative Normal Negative [facility] Comment on above: Performed By: #### G ADCAB, LIPB, CPEPT ####[facility] [address] [place], [place] [phone] Glutamic Ac Decar Ab <5.0 Normal <5.1 [facility] Comment on above: Performed By: #### G ADCAB, LIPB, CPEPT ####[facility] [place], [place] [phone] Lipid Panel, Basicon 021 Cholesterol [Mass/Vol] 143 mg/dL Normal <200 [facility] Comment on above: Result Comment: <200 mg/dL, Desirable 200-239 mg/dL, Borderline high >239 mg/dL, High Performed By: #### G ADCAB, LIPB, CPEPT ####[place] [address] [place], [place] [phone] Cholesterol in HDL [Mass/Vol] 60 mg/dL Normal >39 [facility] Comment on above: Result Comment: 40-5 9 mg/dL, Acceptable >59 mg/dL, High: Negative risk factor for coronary heart disease <40 mg/dL, Low: Positive risk factor for coronary heart disease Performed By: #### G ADCAB, LIPB, CPEPT ####[place] [address] [place], [place] [phone] Cholesterol in LDL [Mass/Vol] 73 mg/dL Normal <100 [facility] Comment on above: Result Comment: <100 mg/dL, Optimal 100-129 mg/dL, Near optimal/above optimal 130-159 mg/dL, Borderline high 160-189 mg/dL, High >189 mg/dL, Very high Secondary prevention optimal LDL Cholesterol levels are recommended to be < 70 mg/dL Performed By: #### G ADCAB, LIPB, CPEPT ####[place] [address] [place], [place] [phone] Fasting Time 10 hrs Normal [facility] Comment on above: Performed By: #### G ADCAB, LIPB, CPEPT ####[facility] [place] [address], [place] [phone] LDL:HDL Ratio 1.22 Normal <2.54 [facility] Comment on above: Result Comment: Refe rence: 1. National Cholesterol Education Program ATP III Guideline At-A-Glance Quick Desk Reference: National Heart, Lung, and Blood [place]. National Institutes of Health. 2001: NIH Publication No. 01-3305. 2. An International Atherosclerosis Society position paper: global recommendations for the management of dyslipidemia: executive summary, Atherosclerosis. 2014: 232(2):410-413. Performed By: #### G ADCAB, LIPB, CPEPT ####[address], [place] [phone] Non HDL Cholesterol 83 mg/dL Normal <130 [facility] Comment on above: Result Comment: <130 mg/dL, Optimal 130-159 mg/dL, Near optimal/above optimal 160-189 mg/dL, Borderline high 190-219 mg/dL, High >219 mg/dL, Very high Secondary prevention optimal non HDL Cholesterol levels are recommended to be < 100 mg/dL Performed By: #### [place]ma ADCAB, LIPB, CPEPT ####[address] [place] [phone] TC:HDL Ratio 2.38 Normal <5.10 [facility] Comment on above: Performed By: #### [place]ma ADCAB, LIPB, CPEPT ####[address] [place] [phone] Triglyceride [Mass/Vol] 48 mg/dL Normal <150 [facility] Comment on above: Result Comment: <150 mg/dL, Normal 150-199 mg/dL, Borderline high 200-499 mg/dL, High >499 mg/dL, Very high Performed By: #### [place] ADCAB, LIPB, CPEPT ####[address] [place] [phone] VLDL Cholesterol 10 mg/dL Normal <30 [facility] Comment on above: Performed By: #### G ADCAB, LIPB, CPEPT ####[address] [place] [phone] Remote CMP (for [facility] use only )on 10-14-2021 Albumin [Mass/Vol] 4.3 g/dL Normal 3.9-4.9 [facility] ALP [Catalytic activity/Vol] 69 U/L Normal 34-123 [facility] ALT [Catalytic activity/Vol] 16 U/L Normal 7-38 [facility] Anion gap [Moles/Vol] 15 mmol/L Normal 9-18 [facility] AST [Catalytic activity/Vol] 14 U/L Normal 13-35 [facility] Bilirubin [Mass/Vol] 0.4 mg/dL Normal 0.2-1.3 [facility] Calcium [Mass/Vol] 9.1 mg/dL Normal 8.5-10.2 [facility] Chloride [Moles/Vol] 98 mmol/L Normal 97-105 [facility] CO2 [Moles/Vol] 23 mmol/L Normal 22-30 [facility] Creatinine [Mass/Vol] 0.79 mg/dL Normal 0.58-0.96 [facility] eGFR- Amer. >60 Normal [facility] eGFR-All Other Races >60 Normal [facility] Comment on above: Result Comment: eGFR [...] [email or web address]. Glucose [Mass/Vol] 182 mg/dL High 74-99 [facility] Comment on above: Result Comment: The [place] Diabetes Association (ADA) provides guidance for cutoff [...] Standards of Medical Care in Diabetes 2016, [place] Diabetes Association. Diabetes Care. 2016.39(Suppl 1). Potassium [Moles/Vol] 3.6 mmol/L Low 3.7-5.1 [facility] Protein [Mass/Vol] 6.7 g/dL Normal 6.3-8.0 [facility] Sodium [Moles/Vol] 136 mmol/L Normal 136-144 [facility] Urea nitrogen [Mass/Vol] 15 mg/dL Normal 7-21 [facility] HBA1C (for [facility] use on )on 10-14-2021 Glucose [Mass/Vol] 186 mg/dL Normal [facility] Comment on above: Result Comment: eAG: (Estimated average glucose) is a calculated value from HgbA1c and is account executive sales representative of the average blood glucose level in the last 2-3 month period. Performed By: #### R HBA1C ####[facility] [place], [place] [phone] HbA1c (Bld) [Mass fraction] 8.1 % High 4.3-5.6 [facility] Comment on above: Result Comment: Amer ican Diabetes Association guidelines indicate that patients with HgbA1c in the range 5.7-6.4% are at increased risk for development of diabetes, and intervention by lifestyle modification may be beneficial. HgbA1c greater or equal to 6.5% is considered diagnostic of diabetes. Performed By: #### R HBA1C ####[facility] [address] [place], [place] [phone] [facility] BERNADETTE FAUST ([id number]) 1995 F [facility] Date Time Provider Department 10/08/21 KATERYNA FARAH [...] Pt would like rx's to go to 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 Advised pt would [...] - Dx: Type 2 DM - Uncontrolled 65Disp: 1 EachRfl: 0 metFORMIN ER (GLUCOPHAGE XR) 500 mg 24 hr tabletTake 1 tablet by mouth daily with dinner.Disp: 30 tabletRfl: 1 C-PEPTIDE BLD [SQCPEPT] Order #: [id number] FUTURE GLUTAMIC AC DECARBOXYLASE AB [SQGADCAB] Order #: [id number] FUTURE POTASSIUM BLD [SQK1] Order #: [id number] FUTURE Prescriptions as of 10/08/2021 - Lancets [...] blood suga (more content not included)... Normal [facility] Albumin/Creat Ratioon 2020 Albumin Urine Random <12.0 Normal [facility] Comment on above: Performed By: #### U ACR ####[facility] [place], [place] [phone] Albumin/Creat Ratio Not calculated Normal <30 C [facility] Comment on above: Performed By: #### U ACR ####[facility] [place], [place] [phone] Creatinine,Urine,Ran 5.6 mg/dL Low 20-300 [facility] Comment on above: Performed By: #### U ACR ####[address] [phone] CNOVon 10-07-2021 CNOV Office Visit (FAMPWS ) BERNADETTE FAUST ([id number]) 1995 [facility] Date Time Provider Department 10/07/21 2:00 PM KATERYNA FARAH During your visit today, we [...] Take 1 (more content not included)... Normal [facility] Comp Metabolic Panelon 10-07 Albumin [Mass/Vol] 4.3 g/dL Normal 3.9-4.9 [facility] Comment on above: Performed By: #### C MP, HBA1C, LIPNF ####[facility] [address] [place], [place] [phone] ALP [Catalytic activity/Vol] 76 U/L Normal 34-123 [facility] Comment on above: Performed By: #### C MP, HBA1C, LIPNF ####[facility] [address] [place], [place] [phone] ALT [Catalytic activity/Vol] 19 U/L Normal 7-38 [facility] Comment on above: Performed By: #### C MP, HBA1C, LIPNF ####[facility] [address] [place], [place] [phone] Anion gap [Moles/Vol] 11 mmol/L Normal 9-18 [facility] Comment on above: Performed By: #### C MP, HBA1C, LIPNF ####[place] [address] [place] [phone] AST [Catalytic activity/Vol] 19 U/L Normal 13-35 [facility] Comment on above: Performed By: #### C MP, HBA1C, LIPNF ####[place] [address] [place] [address] [phone] Bilirubin [Mass/Vol] 0.4 mg/dL Normal 0.2-1.3 [facility] Comment on above: Performed By: #### C MP, HBA1C, LIPNF ####[place] [address] [place] [address] [phone] Calcium [Mass/Vol] 8.9 mg/dL Normal 8.5-10.2 [facility] Comment on above: Performed By: #### C MP, HBA1C, LIPNF ####[place] [address] [place] [phone] Chloride [Moles/Vol] 103 mmol/L Normal 97-105 [facility] Comment on above: Performed By: #### C MP, HBA1C, LIPNF ####[place] [address] [place] [address] [phone] CO2 [Moles/Vol] 26 mmol/L Normal 22-30 [facility] Comment on above: Performed By: #### C MP, HBA1C, LIPNF ####[facility] [place] [address], [place] [phone] Creatinine [Mass/Vol] 0.93 mg/dL Normal 0.58-0.96 [facility] Comment on above: Performed By: #### C MP, HBA1C, LIPNF ####[place] [address] [place] [address] [phone] eGFR- Amer. >60 Normal [facility] Comment on above: Performed By: #### C MP, HBA1C, LIPNF ####[facility] [place], [place] [phone] eGFR-All Other Races >60 Normal [facility] Comment on above: Result Comment: eGFR [...] Performed By: #### C MP, HBA1C, LIPNF ####[facility] [place], [place] [phone] Glucose [Mass/Vol] 148 mg/dL High 74-99 [facility] Comment on above: Result Comment: The [place] Diabetes Association (ADA) provides guidance for cutoff [...] Standards of Medical Care in Diabetes 2016, [place] Diabetes Association. Diabetes Care. 2016.39(Suppl 1). Performed By: #### C MP, HBA1C, LIPNF ####[facility], [place] [phone] Potassium [Moles/Vol] 3.5 mmol/L Low 3.7-5.1 [facility] Comment on above: Performed By: #### C MP, HBA1C, LIPNF ####[facility] [place], [place] [phone] Protein [Mass/Vol] 6.9 g/dL Normal 6.3-8.0 [facility] Comment on above: Performed By: #### C MP, HBA1C, LIPNF ####[place] [address], [place] [phone] Sodium [Moles/Vol] 140 mmol/L Normal 136-144 [facility] Comment on above: Performed By: #### C MP, HBA1C, LIPNF ####[address] [phone] Urea nitrogen [Mass/Vol] 9 mg/dL Normal 7-21 [facility] Comment on above: Performed By: #### C MP, HBA1C, LIPNF ####[address] [phone] Hemoglobin A1con 10-07-2021 Glucose [Mass/Vol] 186 mg/dL Normal [facility] Comment on above: Result Comment: eAG: (Estimated average glucose) is a calculated value from HgbA1c and is account executive sales representative of the average blood glucose level in the last 2-3 month period. Performed By: #### C MP, HBA1C, LIPNF ####[place] [address] [place], [place] [phone] HbA1c (Bld) [Mass fraction] 8.1 % High 4.3-5.6 [facility] Comment on above: Result Comment: Amer ican Diabetes Association guidelines indicate that patients with HgbA1c in the range 5.7-6.4% are at increased risk for development of diabetes, and intervention by lifestyle modification may be beneficial. HgbA1c greater or equal to 6.5% is considered diagnostic of diabetes. Performed By: #### C MP, HBA1C, LIPNF ####[address] [phone] Lipid Panel, Nonfaston 10-07 Cholesterol [Mass/Vol] 135 mg/dL Normal <200 [facility] Comment on above: Result Comment: <200 mg/dL, Desirable 200-239 mg/dL, Borderline high >239 mg/dL, High Performed By: #### C MP, HBA1C, LIPNF ####[address] [phone] HDL Cholesterol, NF 53 mg/dL Normal >39 [facility] Comment on above: Result Comment: 40-5 9 mg/dL, Acceptable >59 mg/dL, High: Negative risk factor for coronary heart disease <40 mg/dL, Low: Positive risk factor for coronary heart disease Performed By: #### C MP, HBA1C, LIPNF ####[address] [phone] LDL Cholesterol, NF 69 mg/dL Normal <100 [facility] Comment on above: Result Comment: <100 mg/dL, Optimal 100-129 mg/dL, Near optimal/above optimal 130-159 mg/dL, Borderline high 160-189 mg/dL, High >189 mg/dL, Very high Secondary prevention optimal LDL Cholesterol levels are recommended to be < 70 mg/dL Performed By: #### C MP, HBA1C, LIPNF ####[address] [phone] LDL/HDL Ratio, NF 1.30 mg/dL Normal <2.54 [facility] Comment on above: Result Comment: Minnie hanley: 1. National Cholesterol Education Program ATP III Guideline At-A-Glance Quick Desk Reference: National Heart, Lung, and Blood [place]. National Institutes of Health. 2001: NIH Publication No. 01-3305. 2. An International Atherosclerosis Society position paper: global recommendations for the management of dyslipidemia: executive summary, Atherosclerosis. 2014: 232(2):410-413. Performed By: #### C MP, HBA1C, LIPNF ####[facility]ille [phone] Non HDL Chol, NF 82 mg/dL Normal <130 [facility] Comment on above: Result Comment: <130 mg/dL, Optimal 130-159 mg/dL, Near optimal/above optimal 160-189 mg/dL, Borderline high 190-219 mg/dL, High >219 mg/dL, Very high Secondary prevention optimal non HDL Cholesterol levels are recommended to be < 100 mg/dL Performed By: #### C MP, HBA1C, LIPNF ####[place] [address] [address] [place] [phone] T Chol/HDL Ratio NF 2.55 mg/dL Normal <5.10 [facility] Comment on above: Performed By: #### C MP, HBA1C, LIPNF ####[place] [address] [address] [place] [phone] Triglycerides, NF 65 mg/dL Normal <150 [facility] Comment on above: Result Comment: <150 mg/dL, Normal 150-199 mg/dL, Borderline high 200-499 mg/dL, High >499 mg/dL, Very high Performed By: #### C MP, HBA1C, LIPNF ####[place] [address] [address] [place] [phone] VLDL Cholesterol, NF 13 mg/dL Normal <30 [facility] Comment on above: Performed By: #### C MP, HBA1C, LIPNF ####[place] [address] [place] [phone] Urinalysis with Microscopico n 10-07-2021 Bilirubin, Urine Negative Normal Negative [facility] Comment on above: Performed By: #### U AWMIC ####[place] [address] [address] [place] [phone] Clarity (U) Clear Normal Clear [facility] Comment on above: Performed By: #### U AWMIC ####[place] [address] [place] [phone] Color (U) Colorless Critically abnormal Yellow [facility] Comment on above: Performed By: #### U AWMIC ####[place] [address] [place] [phone] Comments SEE COMMENT Normal [facility] Comment on above: Result Comment: N/A Performed By: #### U AWMIC ####[place] [address] [address] [place] [phone] Epithelial cells LM Ql (Urine sed) SEE COMMENT Normal [facility] Comment on above: Result Comment: Few Squamous Epithelial Cells Performed By: #### U AWMIC ####[place] [address] [place] [phone] Glucose Ql (U) Negative Normal Negative [facility] Comment on above: Performed By: #### U AWMIC ####[place] [address] [place] [phone] Hemoglobin/Blood,Ur Negative Normal Negative [facility] Comment on above: Performed By: #### U AWMIC ####[place] [address] [place] [phone] Ketones Ql (U) Negative Normal Negative [facility] Comment on above: Performed By: #### U AWMIC ####[place] [address] [place] [phone] Leukest Negative Normal Negative [facility] Comment on above: Performed By: #### U AWMIC ####[place] [address] [place] [phone] Nitrite Ql (U) Negative Normal Negative [facility] Comment on above: Performed By: #### U AWMIC ####[place] [address] [place] [phone] pH (U) 7.0 [pH] Normal 5.0-8.0 [facility] Comment on above: Performed By: #### U AWMIC ####[facility] [place] [phone] Protein, Urine Negative Normal Negative [facility] Comment on above: Performed By: #### U AWMIC ####[facility] [address]CDefuni[place], [place] [phone] RBC 0-3 Normal 0-3 [facility] Comment on above: Performed By: #### U AWMIC ####[place] [address] [place] Scan[place] [phone] Specific [place], Ur 1.001 Low 1.005-1.030 [facility] Comment on above: Performed By: #### U AWMIC ####[facility] Scan[place] [phone] Urine Olegario Comment SEE COMMENT Normal [facility] Comment on above: Result Comment: N/A Performed By: #### U AWMIC ####[place] [address] [place] Scan[place] [phone] Urobilinogen (U) [Mass/Vol] Negative Normal Negative [facility] Comment on above: Performed By: #### U AWMIC ####[facility] [address] [place]uni[place], [place] [phone] WBC 0-5 Normal 0-5 [facility] Comment on above: Performed By: #### U AWMIC ####[facility] [address] ScanDefuni[place], [place] [phone] Keerthi 09-07-2021 CNOV Office Visit (FAMPWS ) BERNADETTE FAUST ([id number]) 1995 [facility] Date Time Provider Department 09/07/21 2:00 PM JENN LOPEZ During your visit today, we recorded the following information about you: Pulse Respiration Blood pressure 92/minute 18/minute 118/88 Jenn Lopez APRN.ELECTRONIC DATA INTERCHANGE SPECIALIST 09/07/2021 2:41 PM Signed This is a 26 year old female who presents today with: Patient presents with: Recheck: Urg Care follow up HISTORY OF PRESENT ILLNESS: Bernadette Faust is a 26 year old female. Patient presents with: Recheck: Urg Care follow up Pt presents today for urgent care follow-up. 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 Refers that there was constant raw [...] AQ) 55 mcg nasal inhaler Use 1 Cos Cob in the nose as needed. - gabapentin [...] mouth three (more content not included)... Normal [facility] 09-07-2021 [facility] Telephone (UCWSTR) EVELYNBERNADETTE R ([id number]) 1995 F [facility] Date Time Provider Department 09/07/21 JOHN GUILLEN [facility] During your visit today, we recorded [...] 09/08/2021 10:37 AM Signed Pt notified via [employer]. Fabiana Milton Ma Allergies As of Date: 09/07/2021 Noted Allergy [...] AQ) 55 mcg nasal inhaler Use 1 Cos Cob in the nose as needed. - gabapentin [...] Type 2 (more content not included)... Normal [facility] CBC and Differentialon 09-06 Abs Baso 0.05 k/uL Normal <0.11 [facility] Comment on above: Performed By: #### C BCDIF ####[facility], [place] [phone] Abs Elbert 0.53 k/uL Normal <0.87 [facility] Comment on above: Performed By: #### C BCDIF ####[facility], [place] [phone] Abs Neut 3.80 k/uL Normal 1.45-7.50 [facility] Comment on above: Performed By: #### C BCDIF ####[facility] [place], [place] [phone] Absolute nRBC <0.01 Normal <0.01 [facility] Comment on above: Performed By: #### C BCDIF ####[facility] [place], [place] [phone] Basophils/100 WBC (Bld) 0.7 % Normal [facility] Comment on above: Performed By: #### C BCDIF ####[facility]ef[address], [place] [phone] DTYPE Auto Diff Normal [facility] Comment on above: Performed By: #### C BCDIF ####[place] [address] [place], [place] [phone] Eosinophils (Bld) [#/Vol] 0.04 10*3/uL Normal <0.46 [facility] Comment on above: Performed By: #### C BCDIF ####[place] [address] [place] [phone] Eosinophils/100 WBC (Bld) 0.5 % Normal [facility] Comment on above: Performed By: #### C BCDIF ####[address], [place] [phone] Erythrocyte distribution width (RBC) [Ratio] 12.4 % Normal 11.5-15.0 [facility] Comment on above: Performed By: #### C BCDIF ####[place] [address] [place] [phone] Hematocrit (Bld) [Volume fraction] 42.9 % Normal 36.0-46.0 [facility] Comment on above: Performed By: #### C BCDIF ####[place] [address], [place] [phone] Hemoglobin (Bld) [Mass/Vol] 14.1 g/dL Normal 11.5-15.5 [facility] Comment on above: Performed By: #### C BCDIF ####[place] [address] [place], [place] [phone] Lymphocytes (Bld) [#/Vol] 3.04 10*3/uL Normal 1.00-4.00 [facility] Comment on above: Performed By: #### C BCDIF ####[place] [address] [place], [place] [phone] Lymphocytes/100 WBC (Bld) 40.6 % Normal [facility] Comment on above: Performed By: #### C BCDIF ####[place] [address] [place] [phone] MCH 28.7 pG Normal 26.0-34.0 [facility] Comment on above: Performed By: #### C BCDIF ####[place] [address] [phone] MCHC (RBC) [Mass/Vol] 32.9 g/dL Normal 30.5-36.0 [facility] Comment on above: Performed By: #### C BCDIF ####[address] [place] [phone] MCV (RBC) [Entitic vol] 87.4 fL Normal 80.0-100.0 [facility] Comment on above: Performed By: #### C BCDIF ####[place] [address] [place] [phone] Monocytes/100 WBC (Bld) 7.1 % Normal [facility] Comment on above: Performed By: #### C BCDIF ####[place] [phone] Neutrophils/100 WBC (Bld) 51.1 % Normal [facility] Comment on above: Performed By: #### C BCDIF ####[place] [address] [place] [phone] NRBCs 0.0 /100 WBC Normal 0 [facility] Comment on above: Performed By: #### C BCDIF ####[place] [address] [place], [place] [phone] Platelet mean volume (Bld) [Entitic vol] 10.0 fL Normal 9.0-12.7 [facility] Comment on above: Performed By: #### C BCDIF ####[place] [address] [place], [place] [phone] Platelets (Bld) [#/Vol] 250 10*3/uL Normal 150-400 [facility] Comment on above: Performed By: #### C BCDIF ####[facility] [place], [place] [phone] RBC (Bld) [#/Vol] 4.91 10*6/uL Normal 3.90-5.20 [facility] Comment on above: Performed By: #### C BCDIF ####[facility] [place], [place] [phone] WBC (Bld) [#/Vol] 7.48 10*3/uL Normal 3.70-11.00 [facility] Comment on above: Performed By: #### C BCDIF ####[facility] [place], [place] [phone] CNOVon 08-31-2021 CNOV Office Visit (UCWSTR ) BERNADETTE FAUST ([id number]) 1995 [facility] Date Time Provider Department 08/31/21 5:30 PM JOHN GUILLEN [facility] During your visit today, we recorded [...] pipes in the basement. She had SOB. [facility] stroke in 2017. Reports since moving out 10 days ago symptoms has overall started to improve. Then worsening the last 4 days while she was moving out. Reports nasal drainage that was castillo, worsening migraines while living in the house for 2 weeks, occasional cough, joint pain. [place] like it was worse when the furnace. While moved out of the house symptoms were significantly improved and HAs were improved. Denies fever/chills, Fiance would stay in the house when in [place], and has not been in the house [...] (HCC) 10/01/2018 - Breast cancer ([facility]) - Chronic appendicitis 2005 S/P lap appendectomy. - Family history of defects 05/27/2013 05/27/2013 Father of the baby was born with a hole in his heart. No surgical correction needed. Father the baby's niece born with spina bifida. Patient's first cousin diagnosed with Asperger's Syndrome. TKRN - FRACTURE 2005 FOOT - Gestational diabetes 10/31/2013 - Migraine - Stroke ([facility]) - Type 2 diabetes mellitus ([facility]) - Unspecified asthma(493.90) EXERCISE INDUCED ALLERGIES Botox [...] aepb Inhale (more content not included)... Normal [facility] Wound Culture/Stainon 2020 Wound Culture/Stain Sp. Request/Comment: [...] F Doxycycline SUSCEPTIBLE <=0.5 F Critically abnormal [facility] Comment on above: Performed By: #### W CUL ####[facility] [address] [place], [place] [address]VpcldxghzMer[facility] [address] [place], [place] [phone] [facility]21 [facility] Telephone (KRISTIEWS) BERNADETTE FAUST ([id number]) 1995 F [facility] Date Time Provider Department 04/05/21 MARLO LOZA [facility] During your visit today, we recorded the following information about you: Marlo Loza APRN.CNP 04/05/2021 2:12 PM Signed STAMP Please reach out to patient for overdue appointment for chronic disease management with myself or Dr. Sotelo, labs are ordered. Marlo Loza APRN.CNP Renyprincess Hatfield Ma 04/08/2021 10:59 AM Signed See pt outreach. Allergies As of Date: 04/05/2021 Noted Allergy Reaction BOTOX (ONABOTULINUMTOXINA) 10/06/2020 14 - Other: See Comments Comments: Face tingling and skin itching. LATEX 06/05/2018 16 - Unknown TAPE [Other] 11/23/2005 2 - Rash VERAPAMIL 06/05/2018 10 - Anaphylaxis Date Reviewed: 10/06/2020 Reviewed by: Hang Morales - Fully Assessed Reason for Visit: PHMA/Care Gap Outreach [[id number]] Primary Visit Diagnosis:Type 2 diabetes mellitus without complication, unspecified whether shelter insulin use (HCC) [E11.9] Order(s):ALBUMIN/CREAT RATIO RND UR [SQUACR] Order #: [id number] FUTURE Prescriptions as of 04/05/2021 Sig: PREDNISONE [...] needed* TRIAMCINOLONE ACETONIDE 55 MC* Use 1 Cos Cob in the nose as ne* GABAPENTIN 800 [...] Status:Closed by RENY HATFIELD MA on 04/08/21 [facility] 02-27-2021 CNPN Telephone (FAMPWS) BERNADETTE FAUST ([id number]) 1995 [facility] Date Time Provider Department 02/27/21 BECKY SOTELO [...] Assessed Reason for Visit: PHMA/Care Gap Outreach [[id number]] Cmt: APPT Prescriptions as of 02/27/2021 Sig: [...] needed* TRIAMCINOLONE ACETONIDE 55 MC* Use 1 Cos Cob in the nose as ne* GABAPENTIN 800 [...] Status:Closed by RUKHSANA DYSON MA on 03/01/21 [facility] 01-14-2021 DENIAN Telephone (FAMPWS) BERNADETTE FAUST ([id number]) 1995 F [facility] Date Time Provider Department 01/14/21 BECKY SOTELO [...] diabetes mellitus without complication, unspecified whether exterminator termite insulin use (HCC) [E11.9] Order(s):CMP (CMP) (FOR REMOTE [facility] USE) [SQRCMP] Order #: [id number] FUTURE HEMOGLOBIN A1C (FOR REMOTE [facility] USE) [JJQESV5A] Order #: [id number] FUTURE LIPID PANEL BASIC [SQLIPB] Order #: [id number] FUTURE Prescriptions as of 01/14/2021 Sig: PREDNISONE [...] needed* TRIAMCINOLONE ACETONIDE 55 MC* Use 1 Cos Cob in the nose as ne* GABAPENTIN 800 [...] by FABIANA MILTON MA on 01/14/21 Normal [facility] Coding Summary.on 02-22-2019 Coding Summary. CODING DATE: 019 FINAL [facility] STATUS: Home (Routine DC) PAYOR: Self [...] Revised Date Saved: 02/22/2019 07:04 am Normal [facility] Auto Diffon 02-20-2019 Basophils/100 WBC (Bld) 0.5 % Normal 0.0-2.0 [facility] Comment on above: Order Comment: Order Added by Discern Expert. Performed By: #### 2 935917, 7809494, 09234168, 5392150, 2051136, 5050848, 02391572, 4656612 #### [facility] [address] [place] [address] Basophils/Leukocytes Auto (Bld) [Pure # fraction] 0.1 E9/L Normal 0.0-0.2 [facility] Comment on above: Order Comment: Order Added by Discern Expert. Performed By: #### 2 967676, 4634701, 64811168, 6355567, 1654930, 8447303, 24741457, 5138351 #### [facility] [address] [place] [address] Eosinophils/100 WBC (Bld) 0.1 % Normal 0.0-8.0 [facility] Comment on above: Order Comment: Order Added by Discern Expert. Performed By: #### 2 310155, 2254176, 11408020, 5215923, 7460105, 2720566, 05990391, 3917720 #### [facility] [address] [place] [address] Eosinophils/Leukocytes Auto (Bld) [Pure # fraction] 0.0 E9/L Normal 0.0-0.5 [facility] Comment on above: Order Comment: Order Added by Discern Expert. Performed By: #### 2 363317, 2688637, 39604456, 4580551, 7434875, 2580257, 23697043, 1843504 #### [facility] [address] [place] [address] Lymphocytes/100 WBC (Bld) 8.4 % Low 14.0-50.0 [facility] Comment on above: Order Comment: Order Added by Discern Expert. Performed By: #### 2 537088, 9196654, 45619461, 5927677, 6744830, 3696368, 48837432, 8238525 #### [facility] [address] [place] [address] Lymphocytes/Leukocytes Auto (Bld) [Pure # fraction] 0.9 E9/L Low 1.0-4.0 [facility] Comment on above: Order Comment: Order Added by Discern Expert. Performed By: #### 2 174040, 3912410, 99185952, 4377926, 5792530, 2934616, 04907670, 4027587 #### [facility] [address] [place] [address] Monocytes/100 WBC (Bld) 5.2 % Normal 4.0-14.0 [facility] Comment on above: Order Comment: Order Added by Discern Expert. Performed By: #### 2 087950, 3000597, 47314482, 9019804, 6219720, 4312265, 57204379, 7230962 #### [facility] [address] [place] [address] Monocytes/Leukocytes Auto (Bld) [Pure # fraction] 0.5 E9/L Normal 0.2-1.0 [facility] Comment on above: Order Comment: Order Added by Discern Expert. Performed By: #### 2 332798, 3915844, 53640635, 4227572, 4562425, 2345661, 64317580, 6897640 #### [facility] [address] [place] [address] Neutrophils/100 WBC (Bld) 85.8 % High 36.0-75.0 [facility] Comment on above: Order Comment: Order Added by Discern Expert. Performed By: #### 2 896096, 1067388, 77908800, 6985302, 4063964, 3462188, 11613588, 0530825 #### [facility] [address] [place] [address] Neutrophils/Leukocytes Auto (Bld) [Pure # fraction] 8.8 E9/L High 2.0-7.5 [facility] Comment on above: Order Comment: Order Added by Discern Expert. Performed By: #### 2 043765, 6064828, 36885054, 4656693, 6645321, 7510096, 99023084, 1951966 #### [facility] [address] [place] [address] BMPon 02-20-2019 Creatinine [Mass/Vol] 0.8 mg/dL Normal 0.5-1.3 [facility] Comment on above: Performed By: #### 2 785047, 2069986, 25559447, 2586509, 6458658, 6871180, 86888946, 1876867 #### [facility] [address] [place] [address] Urea nitrogen [Mass/Vol] 9 mg/dL Normal 5-21 [facility] Comment on above: Performed By: #### 2 926394, 4694363, 17590720, 7630515, 9562222, 4387750, 60713163, 3625634 #### [facility] [address] [place] [address] Urea nitrogen/Creatinine [Mass ratio] 11 No Units Normal 10-20 [facility] Comment on above: Performed By: #### 2 111879, 9504159, 99461898, 6503844, 6889200, 6683538, 70119328, 4571004 #### [facility] [address] [place] [address] Anion gap [Moles/Vol] 14 mmol/L Normal 6-16 [facility] Comment on above: Performed By: #### 2 042821, 8530101, 36131539, 9456087, 2441883, 3057455, 82309223, 3705004 #### [facility] [address] [place] [address] Calcium [Mass/Vol] 9.0 mg/dL Normal 8.9-11.1 [facility] Comment on above: Performed By: #### 2 586155, 1784275, 89497460, 5143785, 9953332, 7539265, 66528065, 3585175 #### [facility] [address] [place] [address] Chloride [Moles/Vol] 100 mmol/L Low 101-111 [facility] Comment on above: Performed By: #### 2 876213, 1837822, 26258443, 3922057, 4497161, 9179396, 40364643, 1608305 #### [facility] [address] [place] [address] CO2 [Moles/Vol] 23 mmol/L Normal 21-31 [facility] Comment on above: Performed By: #### 2 083663, 4393380, 55069556, 7111473, 3997384, 1512110, 67202216, 7283978 #### [facility] [address] [place] [address] Glucose [Mass/Vol] 181 mg/dL Normal 55-199 [facility] Comment on above: Result Comment: If t his glucose result represents a fasting glucose, interpretation should refer to the following reference range: 55-99 mg/dL Performed By: #### 2 299224, 5755966, 13310279, 8572339, 0386117, 6497948, 59636332, 3413766 #### [facility] [address] [place] [address] Potassium [Moles/Vol] 3.7 mmol/L Normal 3.5-5.3 [facility] Comment on above: Performed By: #### 2 446452, 3344837, 56716839, 1411694, 5709736, 0405286, 82515472, 8842524 #### [facility] [address] [place] [address] Sodium [Moles/Vol] 133 mmol/L Low 135-145 [facility] Comment on above: Performed By: #### 2 882790, 7359350, 81518084, 8027274, 0618032, 8171204, 58326100, 4083790 #### [facility] [address] [place] [address] CBC w/ Auto Diffon Erythrocyte distribution width (RBC) [Ratio] 14.5 % High 10.9-14.2 [facility] Comment on above: Performed By: #### 2 566015, 7601126, 50630685, 4861891, 9796761, 2802576, 87809240, 4704427 #### [facility] [address] [place] [address] Hematocrit (Bld) [Volume fraction] 38.9 % Normal 34.0-46.0 [facility] Comment on above: Performed By: #### 2 650624, 3323464, 82090280, 2379062, 5448803, 4583304, 82766651, 0952997 #### [facility] [address] [place] [address] Hemoglobin (Bld) [Mass/Vol] 13.3 g/dL Normal 12.0-16.0 [facility] Comment on above: Performed By: #### 2 808045, 9002618, 24769155, 1086652, 6534608, 1602372, 24039902, 1617995 #### [facility] [address] [place] [address] MCH (RBC) [Entitic mass] 28.1 pg Normal 27.0-34.0 [facility] Comment on above: Performed By: #### 2 593899, 9826907, 52118803, 3234484, 9377468, 0211755, 42465376, 5807711 #### [facility] [address] [place] [address] MCHC (RBC) [Mass/Vol] 34.2 g/dL Normal 33.3-35.7 [facility] Comment on above: Performed By: #### 2 021155, 1643957, 72597826, 8577042, 5201843, 0733683, 08481961, 1790847 #### [facility] [address] [place] [address] MCV (RBC) [Entitic vol] 82.3 fL Normal 80.0-100.0 [facility] Comment on above: Performed By: #### 2 895537, 8712936, 76487295, 8310397, 1551057, 6437968, 59468825, 9735335 #### [facility] [address] [place] [address] Platelet mean volume (Bld) [Entitic vol] 7.0 fL Normal 6.4-10.8 [facility] Comment on above: Performed By: #### 2 625916, 1272105, 30795101, 0742252, 8522156, 1069572, 50923367, 0067659 #### [facility] [address] [place], [place] [address] Platelets (Bld) [#/Vol] 179.0 E9/L Normal 150.0-500.0 [facility] Comment on above: Performed By: #### 2 640801, 1277988, 15419397, 3559210, 4895745, 5717105, 15032707, 7325617 #### [facility] [address] [place] [address] RBC (Bld) [#/Vol] 4.7 E12/L Normal 4.3-5.9 [facility] Comment on above: Performed By: #### 2 332545, 7996344, 56417020, 2786961, 0476399, 5521415, 03715112, 2724781 #### [facility] [address] [place] [address] WBC corrected for nucl RBC Auto (Bld) [#/Vol] 10.3 E9/L Normal 4.0-11.0 [facility] Comment on above: Performed By: #### 2 593950, 1330588, 44625957, 6271600, 7030540, 4254616, 56195869, 5242558 #### [facility] [address] [place] [address] CRPon 02-20-2019 CRP [Mass/Vol] 0.9 mg/dL Normal <=1.9 [facility] Comment on above: Performed By: #### 2 610569, 5493216, 36064684, 7977414, 2763582, 0561828, 53295858, 5944204 #### [facility] [address] [place] [address] CT Abdomen/Pelvis w/o Contra ston 02-20-2019 CT [...] ml's: 0 Rectal Contrast Given? No Normal [facility] ED Clinical Summaryon 2018 ED Clinical Summary (Inserted Image. Kathie ble to display) [place] [id number] ED Clinical Summary Person Information Name: BERNADETTE FAUST/John Age: 24 Years : 1995 12:00 AM Sex: Female Language: Paraguayan PCP: BECKY SOTELO MD Marital Status: Single [...] 9:17 PM 02/20/2019 9:17 PM ADDRESS: [address] [facility] [id number] [facility] DOC NOTES: MEDICAL INFORMATION: Prescriptions Given: PATIENT EDUCATION INFORMATION: Instructions: Abdominal Pain, Adult, Hcmq-fh-Dgaa Follow up: With: Address: When: BECKY SOTELO [address] [place], [place] [id number] Business (1) Within 1 to 2 days Comments: Return to ED if symptoms worsen DIAGNOSIS: 1:Intermittent left upper quadrant abdominal pain; 2:Left flank pain Normal [facility] ED Note-Nursingon 02-20-2019 ED Note-Nursing Report recvd from BENTLEY Perez, care assumed at this time. Normal [facility] ED Note-Physicianon 02-21-20 19 ED Note-Physician Basic Information Time Seen: Claudia BAINAshwin 02/20/2019 17:35 Chief Complaint Pt presents with [...] medications Follow-up With When Contact Information BECKY ASHLEIGH Within 1 to 2 days [address] [facility] [place] [address]- [facility] (1) Additional Instructions: Return to ED if symptoms worsen Patient Education Abdominal Pain, Adult, Fugq-xb-Doto Attestation The patient's care was supervised by Dr. Karlee Baker including medical decision making, and disposition. Teaching-Supervisory Addendum-Brief I personally performed: supervision of the patient's care the medical decision making. The case was discussed with: the physician assistant professor of theater, Ashwin Taylor PA-C. Procedures: I directly supervised [...] Auto: 8.4 % Low (02/20/19 17:55:00 EDT) Elbert Auto: 5.2 % (02/20/19 17:55:00 EDT) Eos Auto: 0.1 % (02/20/19 17:55:00 EDT) Basophil Auto: 0.5 % (02/20/19 17:55:00 EDT) Neutro Absolute: 8.8 E9/L High (02/20/19 17:55:00 EDT) Lymph Absolute: 0.9 E9/L Low (02/20/19 17:55:00 EDT) Elbert Absolute: 0.5 E9/L (02/20/19 17:55:00 EDT) Eos [...] Given? No Signed By: Jesus Moses DO [facility] Comment on above: Result Comment: Elec tronically Signed By: Ashwin Taylor PA-C\\.br\\Date and Time Signed: 02/20/19 19:44 EDT\\.br\\Electronically Co-Signed By: Jane Baker DO\\.br\\Date and Time Co-Signed: 02/20/19 21:12 EDT ED [...] Document Reviewed: 06/25/2014 ExitCare? Patient Information ?2014 [employer]. This information is not intended to replace advice given to you by your health care provider. Make sure you discuss any questions you have with your health care provider. [facility] ED Patient Summaryon 019 ED Patient Summary (Inserted Image. Kathie ble to display) [place] [id number] Patient Discharge Instructions Person Information Name: BERNADETTE FAUST Age: 24 Years Arrival Date: 02/20/2019 5:21 PM Discharge Diagnosis: 1:Intermittent left upper quadrant abdominal pain; 2:Left flank pain Primary Care Physician: ASHLEIGH MALIK, BECKY Desir Provider Information Primary Provider: Jane Baker Advanced Trampoline Team Coach:Ashwin Taylor PA-C The exam and treatment you received in the Emergency Department were for an urgent problem and are not intended as complete care. It is important that you follow up with a doctor, nurse practitioner, or physician?s assistant professor of theater for ongoing care. If your symptoms become [...] Instructions: With: Address: When: BECKY SOTELO [address] [place] [id number] [facility] () Within 1 to 2 days Comments: Return to ED if symptoms worsen In the event that this physician does not participate in your insurance network, please consult with your insurance company to find a nearby participating provider. Patient Education Materials: Abdominal Pain, Adult, Kmiq-ax-Dnjv A MESSAGE TO ALL PATIENTS REGARDING OPIOIDS PRESCRIPTION OPIOIDS: WHAT YOU NEED TO KNOW Prescription opioids can be used to help relieve skyfedsa-bv-dfmdib pain and are often prescribed following a [...] be struggling with addiction, tell your health care nurse rn and ask for guidance or call [facility]?S National Helpline at 5-797-863-HYQF. e Source: [place] Department of Health and Human Services/Center for Disease Control & Prevention [facility] Medications Given: Medication Dose Route [...] Comment: Pharmacy Information: Thank you for choosing [facility] Patient Education Materials: Abdominal Pain Many [...] Document Reviewed: 06/25/2014 ExitCare? Patient Information ?2015 [employer]. This information is not intended to replace advice given to you by your health care provider. Make sure you discuss any questions you have with your health care provider. IEVELYN STEPHANIE , have received the following patient education materials/instructions and have verbalized understanding: Patient Education Materials: Abdominal Pain, Adult, Qcwc-gp-Ntzh Follow-up Instructions: With: Address: When: BECKY SIGALANATERAUL [address] [place] [address] [facility] (1) Within 1 to 2 days Comments: Return to ED if symptoms worsen Prescriptions: Patient Signature Date Clinician/Nurse Signature _ Date 02/20/19 21:17:29 Normal [facility] Hep Func Panelon 02-20-2019 Albumin [Mass/Vol] 1.4 g/dL Normal 1.1-2.2 [facility] Comment on above: Performed By: #### 2 626627, 3988361, 67435782, 9299101, 8518265, 5107232, 66558485, 2260271 #### [facility] [address] [place] [address] [place] [address] Albumin [Mass/Vol] 4.3 g/dL Normal 3.3-5.0 [facility] Comment on above: Performed By: #### 2 014546, 3759507, 24627270, 0422891, 2360360, 5385732, 00936764, 2423692 #### [facility] [address] [place], [place] [address] ALP [Catalytic activity/Vol] 56 Int._Unit/L Normal 21-98 [facility] Comment on above: Performed By: #### 2 142016, 0672984, 40784977, 3049519, 1505151, 9221143, 12657030, 0556651 #### [facility] [address] [place] [address] ALT No additional P-5'-P [Catalytic activity/Vol] 18 Int._Unit/L Normal 6-46 [facility] Comment on above: Performed By: #### 2 689582, 8437025, 72107147, 7448063, 3288969, 3411887, 98766346, 0021753 #### [facility] [address] [place], [place] [address] AST [Catalytic activity/Vol] 25 Int._Unit/L Normal 5-43 [facility] Comment on above: Performed By: #### 2 878856, 7432762, 37886506, 3661730, 5119538, 8073573, 11207505, 9132171 #### [facility] [address] [place], [place] [address] Bilirubin [Mass/Vol] 0.5 mg/dL Normal 0.0-1.1 [facility] Comment on above: Performed By: #### 2 022981, 8244371, 16704396, 9015051, 7951412, 1446344, 53018751, 2477067 #### [facility] [address] [place] [address] Bilirubin.direct [Mass/Vol] 0.4 mg/dL Normal 0.1-0.9 [facility] Comment on above: Performed By: #### 2 497277, 2623952, 51859196, 5953891, 0558098, 9426623, 28014152, 7535595 #### [facility] [address] [place] [address] Bilirubin.direct [Mass/Vol] 0.1 mg/dL Normal 0.1-0.4 [facility] Comment on above: Performed By: #### 2 332991, 4017328, 77074384, 1582772, 8604650, 7404621, 86978105, 8045164 #### [facility] [address] [place] [address] Globulin (S) [Mass/Vol] 3.1 g/dL Normal 1.4-4.0 [facility] Comment on above: Performed By: #### 2 155840, 3826363, 82214202, 6556692, 3013354, 0203491, 21856969, 5253026 #### [facility] [address] [place] [address] Protein [Mass/Vol] 7.4 g/dL Normal 6.0-7.8 [facility] Comment on above: Performed By: #### 2 183681, 7447206, 67130343, 6381721, 3730030, 2090572, 62540767, 9540630 #### [facility] [address] [place] [address] Lipase Levelon 02-20-2019 Lipase [Catalytic activity/Vol] 27 unit/L Normal 13-58 [facility] Comment on above: Performed By: #### 2 879673, 2045869, 84917539, 0102984, 1034461, 6095367, 19978159, 9102575 #### [facility] [address] [place] [address] Sed Rate Automatedon 019 ESR (Bld) [Velocity] 6 mm/h Normal 0-34 [facility] Comment on above: Performed By: #### 2 536993, 0532532, 53429598, 8249359, 5938900, 0259465, 60942754, 5309475 #### [facility] [address] [place] [address] U BetaHcg Qualon 02-20-2019 HCG.beta subunit (U) [Moles/Vol] Negative Normal [facility] Comment on above: Performed By: #### 2 7354518, 94168506 #### [facility] [address] [place] [address] UA With Cult Reflexon 2018 Bilirubin Ql (U) Negative Normal Negative [facility] Comment on above: Performed By: #### 2 5851220, 40732988 #### [facility] [address] [place] [address] Clarity (U) CLEAR Normal Clear [facility] Comment on above: Performed By: #### 2 8541688, 00170474 #### [facility] [address] [place] [address] Color (U) YELLOW Normal Yellow [facility] Comment on above: Performed By: #### 2 1155238, 03061239 #### [facility] [address] [place] [address] Epithelial cells.squamous LM.HPF (Urine sed) [#/Area] 0-2 Normal 0-2 [facility] Comment on above: Performed By: #### 2 4813719, 16056868 #### [facility] [address] [place] [address] Glucose Test strip (U) [Mass/Vol] 1+ Abnormal Negative [facility] Comment on above: Performed By: #### 2 1084057, 61788925 #### [facility] [address] [place] [address] Hemoglobin Ql (U) Negative Normal Negative [facility] Comment on above: Performed By: #### 2 9645793, 27053336 #### [facility] [address] [place] [address] Ketones (U) [Mass/Vol] Negative Normal Negative [facility] Comment on above: Performed By: #### 2 8058447, 09662797 #### [facility] [address] [place] [address] Mesilla.plasma/Mesilla .RBC (Bld) [Mass ratio] 0-3 Normal 0-3 [facility] Comment on above: Performed By: #### 2 5987767, 03248932 #### [facility] [address] [place] [address] Nitrite Ql (U) Negative Normal Negative [facility] Comment on above: Performed By: #### 2 0139031, 19088168 #### [facility] [address] [place] [address] pH (U) 5.5 [pH] 5.0-9.0 [facility] Comment on above: Performed By: #### 2 4749382, 49757252 #### [facility] [address] [place] [address] Protein (U) [Mass/Vol] Negative Normal Negative [facility] Comment on above: Performed By: #### 2 4003359, 05766539 #### [facility] [address] [place] [address] Specific gravity (U) [Rel density] 1.010 1.005-1.030 [facility] Comment on above: Performed By: #### 2 9107336, 31855137 #### [facility] [address] [place] [address] UA Spec Desc Clean Catch Normal [facility] Comment on above: Performed By: #### 2 0737154, 44465257 #### [facility] [address] [place] [address] Urobilinogen Qn (U) 0.2 {Stephanie'U}/dL Normal 0.0-1.0 [facility] Comment on above: Performed By: #### 2 1394757, 23154507 #### [facility] [address] [place] [address] WBC Auto Ql (U) Negative Normal Negative [facility] Comment on above: Performed By: #### 2 1836828, 61673193 #### [facility] [address] [place] [address] WBC LM.HPF (Urine sed) [#/Area] 0-5 Normal 0-5 [facility] Comment on above: Performed By: #### 2 3680376, 56161956 #### [facility] [address] [place] [address] eGFRon 02-20-2019 GFR/1.73 sq M predicted among blacks MDRD (S/P/Bld) [Vol rate/Area] mL/min/{1.73_m2} Normal >=59 [facility] Comment on above: Order Comment: Order added by Discern Expert. Result Comment: eGFR is race adjusted. AA=. Performed By: #### 2 066425, 8876640, 60723074, 0508804, 3591275, 1001772, 40625340, 3486164 #### [facility] [address] [place] [address] GFR/1.73 sq M predicted among non-blacks MDRD (S/P/Bld) [Vol rate/Area] mL/min/{1.73_m2} Normal >=59 [facility] Comment on above: Order Comment: Order added by Discern Expert. Result Comment: Nuclear Equipment Operator elias kidney disease could be indicated at eGFR's of less than 60 mL/min/1.73m2. Kidney failure is indicated at less than 15 mL/min/1.73m2. Performed By: #### 2 666920, 3775486, 24597833, 1906152, 7898636, 1028009, 31836053, 0764049 #### [facility] [address] [place] [address] C-Reactive Proteinon 019 CRP mass conc 0.1 mg/dL Normal <0.9 [facility] Comment on above: Performed By: #### W SR, C3COMP, C4COMP, CRP, RF, SYPHGX, ENAID, DNA, SEPG, COMPD #### [facility] [address] [place] [address] C3 Complementon 01-22-2019 C3 Complement 126 mg/dL Normal 86-166 [facility] Comment on above: Performed By: #### W SR, C3COMP, C4COMP, CRP, RF, SYPHGX, ENAID, DNA, SEPG, COMPD #### [place] [address] [place] [address] C4 Complementon 01-22-2019 C4 Complement 23 mg/dL Normal 13-46 [facility] Comment on above: Performed By: #### W SR, C3COMP, C4COMP, CRP, RF, SYPHGX, ENAID, DNA, SEPG, COMPD #### [place] [address] CBC and Differentialon 01-22 Abs Baso <0.03 Normal <0.11 [facility] Comment on above: Performed By: #### W SR, C3COMP, C4COMP, CRP, RF, SYPHGX, ENAID, DNA, SEPG, COMPD #### [place] [address] Abs Elbert 0.52 k/uL Normal <0.87 [facility] Comment on above: Performed By: #### W SR, C3COMP, C4COMP, CRP, RF, SYPHGX, ENAID, DNA, SEPG, COMPD #### [place] [address] Abs Neut 4.52 k/uL Normal 1.45-7.50 [facility] Comment on above: Performed By: #### W SR, C3COMP, C4COMP, CRP, RF, SYPHGX, ENAID, DNA, SEPG, COMPD #### [place] [address] [place] [address] Basophils/100 WBC (Bld) 0.3 % Normal [facility] Comment on above: Performed By: #### W SR, C3COMP, C4COMP, CRP, RF, SYPHGX, ENAID, DNA, SEPG, COMPD #### [place] [phone] DTYPE Auto Diff Normal [facility] Comment on above: Performed By: #### W SR, C3COMP, C4COMP, CRP, RF, SYPHGX, ENAID, DNA, SEPG, COMPD #### [place] [phone] Eosinophils #/vol (Bld) 0.10 10*3/uL Normal <0.46 [facility] Comment on above: Performed By: #### W SR, C3COMP, C4COMP, CRP, RF, SYPHGX, ENAID, DNA, SEPG, COMPD #### [place] [phone] Eosinophils/100 WBC (Bld) 1.4 % Normal [facility] Comment on above: Performed By: #### W SR, C3COMP, C4COMP, CRP, RF, SYPHGX, ENAID, DNA, SEPG, COMPD #### [place] [phone] Erythrocyte distribution width Ratio (RBC) 13.2 % Normal 11.5-15.0 [facility] Comment on above: Performed By: #### W SR, C3COMP, C4COMP, CRP, RF, SYPHGX, ENAID, DNA, SEPG, COMPD #### [place] [phone] Hematocrit Volume Fraction (Bld) 42.6 % Normal 36.0-46.0 [facility] Comment on above: Performed By: #### W SR, C3COMP, C4COMP, CRP, RF, SYPHGX, ENAID, DNA, SEPG, COMPD #### [place] [phone] Hemoglobin mass conc (Bld) 14.0 g/dL Normal 11.5-15.5 [facility] Comment on above: Performed By: #### W SR, C3COMP, C4COMP, CRP, RF, SYPHGX, ENAID, DNA, SEPG, COMPD #### [place] [phone] Lymphocytes #/vol (Bld) 2.12 10*3/uL Normal 1.00-4.00 [facility] Comment on above: Performed By: #### W SR, C3COMP, C4COMP, CRP, RF, SYPHGX, ENAID, DNA, SEPG, COMPD #### [place] [phone] Lymphocytes/100 WBC (Bld) 29.1 % Normal [facility] Comment on above: Performed By: #### W SR, C3COMP, C4COMP, CRP, RF, SYPHGX, ENAID, DNA, SEPG, COMPD #### [place] [phone] MCH Entitic mass (RBC) 27.7 pG Normal 26.0-34.0 [facility] Comment on above: Performed By: #### W SR, C3COMP, C4COMP, CRP, RF, SYPHGX, ENAID, DNA, SEPG, COMPD #### [place] [phone] MCHC mass conc (RBC) 32.9 g/dL Normal 30.5-36.0 [facility] Comment on above: Performed By: #### W SR, C3COMP, C4COMP, CRP, RF, SYPHGX, ENAID, DNA, SEPG, COMPD #### [place] [phone] MCV Entitic volume (RBC) 84.4 fL Normal 80.0-100.0 [facility] Comment on above: Performed By: #### W SR, C3COMP, C4COMP, CRP, RF, SYPHGX, ENAID, DNA, SEPG, COMPD #### [place] [address] [place] [address] Monocytes/100 WBC (Bld) 7.1 % Normal [facility] Comment on above: Performed By: #### W SR, C3COMP, C4COMP, CRP, RF, SYPHGX, ENAID, DNA, SEPG, COMPD #### [place] [address] Neutrophils/100 WBC (Bld) 62.1 % Normal [facility] Comment on above: Performed By: #### W SR, C3COMP, C4COMP, CRP, RF, SYPHGX, ENAID, DNA, SEPG, COMPD #### [place] [address] Platelet mean volume Entitic volume (Bld) 9.2 fL Normal 9.0-12.7 [facility] Comment on above: Performed By: #### W SR, C3COMP, C4COMP, CRP, RF, SYPHGX, ENAID, DNA, SEPG, COMPD #### [place] [address] Platelets #/vol (Bld) 222 10*3/uL Normal 150-400 [facility] Comment on above: Performed By: #### W SR, C3COMP, C4COMP, CRP, RF, SYPHGX, ENAID, DNA, SEPG, COMPD #### [place] [address] RBC #/vol (Bld) 5.05 10*6/uL Normal 3.90-5.20 [facility] Comment on above: Performed By: #### W SR, C3COMP, C4COMP, CRP, RF, SYPHGX, ENAID, DNA, SEPG, COMPD #### [place] [address] WBC #/vol (Bld) 7.28 10*3/uL Normal 3.70-11.00 [facility] Comment on above: Performed By: #### W SR, C3COMP, C4COMP, CRP, RF, SYPHGX, ENAID, DNA, SEPG, COMPD #### [place] [address] Comp Metabolic Panelon 01-22 Albumin mass conc 5.0 g/dL High 3.9-4.9 [facility] Comment on above: Performed By: #### W SR, C3COMP, C4COMP, CRP, RF, SYPHGX, ENAID, DNA, SEPG, COMPD #### [place] [address] ALP enzyme act/vol 66 U/L Normal 34-123 [facility] Comment on above: Performed By: #### W SR, C3COMP, C4COMP, CRP, RF, SYPHGX, ENAID, DNA, SEPG, COMPD #### [place] [address] ALT enzyme act/vol 15 U/L Normal 7-38 [facility] Comment on above: Performed By: #### W SR, C3COMP, C4COMP, CRP, RF, SYPHGX, ENAID, DNA, SEPG, COMPD #### [place] [id number] Anion gap molar conc 12 mmol/L Normal 9-18 [facility] Comment on above: Performed By: #### W SR, C3COMP, C4COMP, CRP, RF, SYPHGX, ENAID, DNA, SEPG, COMPD #### [place] [address] AST enzyme act/vol 18 U/L Normal 13-35 [facility] Comment on above: Performed By: #### W SR, C3COMP, C4COMP, CRP, RF, SYPHGX, ENAID, DNA, SEPG, COMPD #### [address] [address] Bilirubin mass conc 0.2 mg/dL Normal 0.2-1.3 [facility] Comment on above: Performed By: #### W SR, C3COMP, C4COMP, CRP, RF, SYPHGX, ENAID, DNA, SEPG, COMPD #### [place] [address] [place] [address] Calcium mass conc 9.8 mg/dL Normal 8.6-10.0 [facility] Comment on above: Performed By: #### W SR, C3COMP, C4COMP, CRP, RF, SYPHGX, ENAID, DNA, SEPG, COMPD #### [place] [phone] Chloride molar conc 99 mmol/L Normal 97-105 [facility] Comment on above: Performed By: #### W SR, C3COMP, C4COMP, CRP, RF, SYPHGX, ENAID, DNA, SEPG, COMPD #### [place] [address] CO2 molar conc 25 mmol/L Normal 22-33 [facility] Comment on above: Performed By: #### W SR, C3COMP, C4COMP, CRP, RF, SYPHGX, ENAID, DNA, SEPG, COMPD #### [place] [phone] Creatinine mass conc 0.65 mg/dL Normal 0.58-0.96 [facility] Comment on above: Performed By: #### W SR, C3COMP, C4COMP, CRP, RF, SYPHGX, ENAID, DNA, SEPG, COMPD #### [place] [address] [place] [address] eGFR- Amer. >60 Normal [facility] Comment on above: Performed By: #### W SR, C3COMP, C4COMP, CRP, RF, SYPHGX, ENAID, DNA, SEPG, COMPD #### [facility] [employer] [address] [place] [address] GFR/1.73 sq M predicted among non-blacks MDRD vol rate/area (S/P/Bld) mL/min/{1.73_m2} Normal [facility] Comment on above: Result Comment: eGFR [...] RF, SYPHGX, ENAID, DNA, SEPG, COMPD #### [facility] [employer] [address] [place] [address] Glucose mass conc 115 mg/dL High 74-99 [facility] Comment on above: Performed By: #### W SR, C3COMP, C4COMP, CRP, RF, SYPHGX, ENAID, DNA, SEPG, COMPD #### [facility] [employer] [facility] [place] [address] Potassium molar conc 3.9 mmol/L Normal 3.7-5.1 [facility] Comment on above: Performed By: #### W SR, C3COMP, C4COMP, CRP, RF, SYPHGX, ENAID, DNA, SEPG, COMPD #### [facility] [employer] [address] [place] [address] Protein mass conc 8.1 g/dL High 6.3-8.0 [facility] Comment on above: Performed By: #### W SR, C3COMP, C4COMP, CRP, RF, SYPHGX, ENAID, DNA, SEPG, COMPD #### [facility] [employer] [address] [place] [address] Sodium molar conc 136 mmol/L Normal 136-144 [facility] Comment on above: Performed By: #### W SR, C3COMP, C4COMP, CRP, RF, SYPHGX, ENAID, DNA, SEPG, COMPD #### [facility] [place], [place] [address] Urea nitrogen mass conc 7 mg/dL Normal 7-21 [facility] Comment on above: Performed By: #### W SR, C3COMP, C4COMP, CRP, RF, SYPHGX, ENAID, DNA, SEPG, COMPD #### [facility] [address] [place] [address] Complmnt Def.Assayon 019 Complmnt Def, Qual Normal Normal Normal [facility] Comment on above: Performed By: #### W SR, C3COMP, C4COMP, CRP, RF, SYPHGX, ENAID, DNA, SEPG, COMPD #### [facility] [address] [place] [address] Complmnt Def. Assay 155 Units Normal [facility] Comment on above: Result Comment: Units are Interpreted as Follows: Normal/High Specimens >60 Low Specimens <=60 Performed By: #### W SR, C3COMP, C4COMP, CRP, RF, SYPHGX, ENAID, DNA, SEPG, COMPD #### [facility] [address] [place] [address] DNA Antibody w/ Conf.on 12-29 DNA Antibody w/ Conf. <12 Normal <30 [facility] Comment on above: Result Comment: Nega tive for ds DNA Antibodies Negative: <30 IU/mL Equivocal: 30-74 IU/mL Positive: >74 IU/mL Performed By: #### W SR, C3COMP, C4COMP, CRP, RF, SYPHGX, ENAID, DNA, SEPG, COMPD #### [facility] [address] [place] [address] [place] Antibody Panelon 019 Centromere <0.2 Normal <1.0 [facility] Comment on above: Result Comment: NEGA TIVE Negative: <1.0 AI Positive: >0.9 AI Performed By: #### W SR, C3COMP, C4COMP, CRP, RF, SYPHGX, ENAID, DNA, SEPG, COMPD #### [place] [phone] Chromatin Antibody <0.2 Normal <1.0 [facility] Comment on above: Result Comment: NEGA TIVE Negative: <1.0 AI Positive: >0.9 AI Performed By: #### W SR, C3COMP, C4COMP, CRP, RF, SYPHGX, ENAID, DNA, SEPG, COMPD #### [place] [address] RICHY 1 Antibody <0.2 Normal <1.0 [facility] Comment on above: Result Comment: NEGA TIVE Negative: <1.0 AI Positive: >0.9 AI Performed By: #### W SR, C3COMP, C4COMP, CRP, RF, SYPHGX, ENAID, DNA, SEPG, COMPD #### [place] [phone] Ribosomal TYPEWRITER TESTER <0.2 Normal <1.0 [facility] Comment on above: Result Comment: NEGA TIVE Negative: <1.0 AI Positive: >0.9 AI Performed By: #### W SR, C3COMP, C4COMP, CRP, RF, SYPHGX, ENAID, DNA, SEPG, COMPD #### [place] [phone] TYPEWRITER TESTER Antibody <0.2 Normal <1.0 [facility] Comment on above: Result Comment: NEGA TIVE Negative: <1.0 AI Positive: >0.9 AI Performed By: #### W SR, C3COMP, C4COMP, CRP, RF, SYPHGX, ENAID, DNA, SEPG, COMPD #### [place] [address] Scleroderma IgG Ab <0.2 Normal <1.0 [facility] Comment on above: Result Comment: NEGA TIVE Negative: <1.0 AI Positive: >0.9 AI Performed By: #### W SR, C3COMP, C4COMP, CRP, RF, SYPHGX, ENAID, DNA, SEPG, COMPD #### [place] [address] Sm Antibody <0.2 Normal <1.0 [facility] Comment on above: Result Comment: NEGA TIVE Negative: <1.0 AI Positive: >0.9 AI Performed By: #### W SR, C3COMP, C4COMP, CRP, RF, SYPHGX, ENAID, DNA, SEPG, COMPD #### [place] [phone] SSA Antibody <0.2 Normal <1.0 [facility] Comment on above: Result Comment: NEGA TIVE Negative: <1.0 AI Positive: >0.9 AI Performed By: #### W SR, C3COMP, C4COMP, CRP, RF, SYPHGX, ENAID, DNA, SEPG, COMPD #### [place] [phone] SSB Antibody <0.2 Normal <1.0 [facility] Comment on above: Result Comment: NEGA TIVE Negative: <1.0 AI Positive: >0.9 AI Performed By: #### W SR, C3COMP, C4COMP, CRP, RF, SYPHGX, ENAID, DNA, SEPG, COMPD #### [place] [address] Lupus Anticoag Panelon 01-22 Anti Xa Inhib Assay *LAB USE ONLY* Anti Xa activity was not detected. Normal [facility] Comment on above: Result Comment: This test was developed and its performance characteristics determined by [facility]'s [facility][Note 3][facility] [place] ([facility] It has not been cleared or approved by the FDA. -[facility] is regulated under CLIA as qualified to perform high-complexity testing. This test is used for clinical purposes. It should not be regarded as investigational or for research. Performed By: #### W SR, C3COMP, C4COMP, CRP, RF, SYPHGX, ENAID, DNA, SEPG, COMPD #### [facility] [address] [place] [address] aPTT Coag time (Bld) 28.7 s Normal 24.4-33.4 [facility] Comment on above: Performed By: #### W SR, C3COMP, C4COMP, CRP, RF, SYPHGX, ENAID, DNA, SEPG, COMPD #### [place] [address] [place] [address] aPTT Coag time (Bld) 27.5 s Normal <33.2 [facility] Comment on above: Performed By: #### W SR, C3COMP, C4COMP, CRP, RF, SYPHGX, ENAID, DNA, SEPG, COMPD #### [facility] [address] [place] [address] aPTT Coag time (Bld) 25.5 s Normal 23.0-32.4 [facility] Comment on above: Result Comment: Unfr actionated [...] laboratory APTT reagent in use throughout the [facility]. Performed By: #### W SR, C3COMP, C4COMP, CRP, RF, SYPHGX, ENAID, DNA, SEPG, COMPD #### [place] [address] [place] [phone] aPTT Coag time (Bld) 29.8 s Normal <35.0 [facility] Comment on above: Performed By: #### W SR, C3COMP, C4COMP, CRP, RF, SYPHGX, ENAID, DNA, SEPG, COMPD #### [place] [phone] Beta2 Glycoprot IgG <9 Normal <20 [facility] Comment on above: Result Comment: < 20 SGU Negative 20-80 SGU Low Positive > 80 SGU High Positive These results were obtained with the MavinA Lite B2 GPI IgG MARIN. B2 GPI IgG values obtained with different manufacturers' assay methods may not be used interchangeably. The magnitude of the reported IgG levels cannot be correlated to an endpoint titer. Performed By: #### W SR, C3COMP, C4COMP, CRP, RF, SYPHGX, ENAID, DNA, SEPG, COMPD #### [place] [phone] DRVVT 1:1 Mix 36.5 sec Normal 32.7-46.7 [facility] Comment on above: Performed By: #### W SR, C3COMP, C4COMP, CRP, RF, SYPHGX, ENAID, DNA, SEPG, COMPD #### [place] [phone] DRVVT Confirm Ratio 1.03 Normal <1.21 [facility] Comment on above: Performed By: #### W SR, C3COMP, C4COMP, CRP, RF, SYPHGX, ENAID, DNA, SEPG, COMPD #### [place] [phone] DRVVT Screen 34.2 sec Normal 32.7-46.7 [facility] Comment on above: Performed By: #### W SR, C3COMP, C4COMP, CRP, RF, SYPHGX, ENAID, DNA, SEPG, COMPD #### [facility] [address] [place] [address] Hex Phase Confirm 46.8 sec Normal 41.8-54.9 [facility] Comment on above: Performed By: #### W SR, C3COMP, C4COMP, CRP, RF, SYPHGX, ENAID, DNA, SEPG, COMPD #### [place] [phone] [place] [address] Hex Phase Delta 2.9 delta sec Normal <9.1 [facility] Comment on above: Performed By: #### W SR, C3COMP, C4COMP, CRP, RF, SYPHGX, ENAID, DNA, SEPG, COMPD #### [place] [phone] [place] [address] Hex Phase Screen 49.7 sec Normal 45.0-59.9 [facility] Comment on above: Performed By: #### W SR, C3COMP, C4COMP, CRP, RF, SYPHGX, ENAID, DNA, SEPG, COMPD #### [place] [address] IgA Cardiolipin Ab. <9 Normal 0-11 [facility] Comment on above: Result Comment: <12 APL Negative 12-40 APL Equivocal >40 APL Positive The following results were obtained with an Deanslistva QUANTA Lite BJ IgA III MARIN. Cardiolipin IgA values obtained with different manufacturers' assay methods may not be used interchangeably. The magnitude of the reported IgA levels cannot be correlated to an endpoint titer. Performed By: #### W SR, C3COMP, C4COMP, CRP, RF, SYPHGX, ENAID, DNA, SEPG, COMPD #### [facility] [address] [place] [address] IgG Cardiolipin Ab. <9 Normal 0-9 [facility] Comment on above: Result Comment: <10 [...] RF, SYPHGX, ENAID, DNA, SEPG, COMPD #### [facility] [address] [place] [address] IgM Cardiolipin Ab. 14 MPL High 0-11 [facility] Comment on above: Result Comment: <12 [...] RF, SYPHGX, ENAID, DNA, SEPG, COMPD #### [facility] [address] [place] [address] INR Coag RelTime (Bld) {INR} Low 0.9-1.3 [employer] [facility] Comment on above: Result Comment: Margo min K Antagonist (VKA) Therapeutic Range: INR 2 to 3 (Target INR of 2.5) Note: For patients treated with VKA drugs, such as warfarin, the [place] [employer] 2012 Guideline recommends [...] to 3.5 (target INR of 3). Osbaldo GH, et al. Chest 2012, 141:7S-47S Kathie RA, et al. [facility] 2017, 70: 252-289 Performed By: #### W SR, C3COMP, C4COMP, CRP, RF, SYPHGX, ENAID, DNA, SEPG, COMPD #### [facility] [address] [place], [place] [address] Interpretation (NOTE) Normal [facility] Comment on above: Result Comment: Perf [...] RF, SYPHGX, ENAID, DNA, SEPG, COMPD #### [facility] [address] [place], [place] [address] PNP Negative Normal Negative [facility] Comment on above: Performed By: #### W SR, C3COMP, C4COMP, CRP, RF, SYPHGX, ENAID, DNA, SEPG, COMPD #### [facility] [address] [place], [place] [address] Protein mass conc g/dL Normal <20 [facility] Comment on above: Result Comment: < 20 SMU Negative 20-80 SMU Low Positive > 80 [facility]U High Positive These results were obtained with the MavinA Lite B2 GPI IgM MARIN. B2 GPI IgM values obtained with different manufacturers' assay methods may not be used interchangeably. The magnitude of the reported IgM levels cannot be correlated to an endpoint titer. Performed By: #### W SR, C3COMP, C4COMP, CRP, RF, SYPHGX, ENAID, DNA, SEPG, COMPD #### [place] [address] PT Sec 9.6 sec Low 9.7-13.0 [facility] Comment on above: Performed By: #### W SR, C3COMP, C4COMP, CRP, RF, SYPHGX, ENAID, DNA, SEPG, COMPD #### [place] [phone] Thrombin Time 15.1 sec Normal <18.6 [facility] Comment on above: Performed By: #### W SR, C3COMP, C4COMP, CRP, RF, SYPHGX, ENAID, DNA, SEPG, COMPD #### [place] [phone] Protein Electrophor.on 01-22 Albumin mass conc 4.60 g/dL High 3.37-4.23 [facility] Comment on above: Performed By: #### W SR, C3COMP, C4COMP, CRP, RF, SYPHGX, ENAID, DNA, SEPG, COMPD #### [place] [address] Alpha 1 Globulin 0.25 gm/dL Normal 0.18-0.31 [facility] Comment on above: Performed By: #### W SR, C3COMP, C4COMP, CRP, RF, SYPHGX, ENAID, DNA, SEPG, COMPD #### [place] [address] Alpha 2 Globulin 0.72 gm/dL Normal 0.52-0.97 [facility] Comment on above: Performed By: #### W SR, C3COMP, C4COMP, CRP, RF, SYPHGX, ENAID, DNA, SEPG, COMPD #### [place] [address] [place] [phone] Beta Globulin 0.98 gm/dL Normal 0.84-1.36 [facility] Comment on above: Performed By: #### W SR, C3COMP, C4COMP, CRP, RF, SYPHGX, ENAID, DNA, SEPG, COMPD #### [place] [phone] Gamma Globulin 1.15 gm/dL Normal 0.70-1.44 [facility] Comment on above: Performed By: #### W SR, C3COMP, C4COMP, CRP, RF, SYPHGX, ENAID, DNA, SEPG, COMPD #### [place] [phone] Interpretation SEE COMMENT Normal [facility] Comment on above: Result Comment: No d efinitive M protein is identified on protein electrophoresis. Performed By: #### W SR, C3COMP, C4COMP, CRP, RF, SYPHGX, ENAID, DNA, SEPG, COMPD #### [place] [phone] M Bienvenido Concentratn 0.00 gm/dL Normal 0.00 [facility] Comment on above: Performed By: #### W SR, C3COMP, C4COMP, CRP, RF, SYPHGX, ENAID, DNA, SEPG, COMPD #### [place] [address] [place] [phone] Protein mass conc N/A Normal [facility] Comment on above: Performed By: #### W SR, C3COMP, C4COMP, CRP, RF, SYPHGX, ENAID, DNA, SEPG, COMPD #### [place] [address] [place] [address] Protein mass conc 7.7 g/dL Normal 6.0-8.4 [facility] Comment on above: Performed By: #### W SR, C3COMP, C4COMP, CRP, RF, SYPHGX, ENAID, DNA, SEPG, COMPD #### [place] [address] SPE Staff Review Reviewed by Dre Roa MD ([id number]) [facility] Comment on above: Performed By: #### W SR, C3COMP, C4COMP, CRP, RF, SYPHGX, ENAID, DNA, SEPG, COMPD #### [address] [address] Rheumatoid Factoron 01-23-20 19 Rheumatoid Factor <10 Normal <16 [facility] Comment on above: Performed By: #### W SR, C3COMP, C4COMP, CRP, RF, SYPHGX, ENAID, DNA, SEPG, COMPD #### [address] [address] Sed Rate Westergrenon 2018 Sed Rate Westergren 5 mm/hr Normal 0-20 [facility] Comment on above: Performed By: #### W SR, C3COMP, C4COMP, CRP, RF, SYPHGX, ENAID, DNA, SEPG, COMPD #### [place] [address] Syphilis IgG with Confon Syphilis IgG <0.2 [facility] Comment on above: Result Comment: Anti body index is interpreted as follows: Non reactive SPECIMENS <=0.8 Weak reactive SPECIMENS 0.9 to 5.9 Reactive SPECIMENS >=6.0 Performed By: #### W SR, C3COMP, C4COMP, CRP, RF, SYPHGX, ENAID, DNA, SEPG, COMPD #### [address] [place] [address] Syphilis IgG, Qual Nonreactive Normal Nonreactive [facility] Comment on above: Result Comment: No s erological evidence of infection with T. pallidum. Performed By: #### W SR, C3COMP, C4COMP, CRP, RF, SYPHGX, ENAID, DNA, SEPG, COMPD #### [place] [phone] Urinalysis with Microscopico n 01-22-2019 Bilirubin, Urine Negative Normal Negative [facility] Comment on above: Performed By: #### W SR, C3COMP, C4COMP, CRP, RF, SYPHGX, ENAID, DNA, SEPG, COMPD #### [place] [phone] Clarity Nom (U) Clear Normal Clear [facility] Comment on above: Performed By: #### W SR, C3COMP, C4COMP, CRP, RF, SYPHGX, ENAID, DNA, SEPG, COMPD #### [place] [phone] Color Nom (U) Yellow Normal Yellow [facility] Comment on above: Performed By: #### W SR, C3COMP, C4COMP, CRP, RF, SYPHGX, ENAID, DNA, SEPG, COMPD #### [place] [phone] Comments SEE COMMENT [facility] Comment on above: Result Comment: N/A Performed By: #### W SR, C3COMP, C4COMP, CRP, RF, SYPHGX, ENAID, DNA, SEPG, COMPD #### [place] [phone] Epithelial cells LM.HPF #/area (Urine sed) SEE COMMENT [facility] Comment on above: Result Comment: Few Squamous Epithelial Cells Performed By: #### W SR, C3COMP, C4COMP, CRP, RF, SYPHGX, ENAID, DNA, SEPG, COMPD #### [place] [phone] Glucose Ql (U) 150 mg/dL Critically abnormal Negative [facility] Comment on above: Performed By: #### W SR, C3COMP, C4COMP, CRP, RF, SYPHGX, ENAID, DNA, SEPG, COMPD #### [place] [phone] Hemoglobin/Blood,Ur Negative Normal Negative [facility] Comment on above: Performed By: #### W SR, C3COMP, C4COMP, CRP, RF, SYPHGX, ENAID, DNA, SEPG, COMPD #### [place] [phone] Ketones Ql (U) Negative Normal Negative [facility] Comment on above: Performed By: #### W SR, C3COMP, C4COMP, CRP, RF, SYPHGX, ENAID, DNA, SEPG, COMPD #### [place] [phone] Leukest Negative Normal Negative [facility] Comment on above: Performed By: #### W SR, C3COMP, C4COMP, CRP, RF, SYPHGX, ENAID, DNA, SEPG, COMPD #### [place] [phone] Nitrite Ql (U) Negative Normal [facility] Comment on above: Performed By: #### W SR, C3COMP, C4COMP, CRP, RF, SYPHGX, ENAID, DNA, SEPG, COMPD #### [place] [phone] pH (Bld) 7.0 Normal 4.5-8.0 [facility] Comment on above: Performed By: #### W SR, C3COMP, C4COMP, CRP, RF, SYPHGX, ENAID, DNA, SEPG, COMPD #### [place] [phone] Protein mass conc (U) Negative Normal Negative [facility] Comment on above: Performed By: #### W SR, C3COMP, C4COMP, CRP, RF, SYPHGX, ENAID, DNA, SEPG, COMPD #### [place] [phone] RBC #/vol (U) 0-3 Normal 0-3 [facility] Comment on above: Performed By: #### W SR, C3COMP, C4COMP, CRP, RF, SYPHGX, ENAID, DNA, SEPG, COMPD #### [place] [phone] Specific [place], Ur 1.005 Normal 1.005-1.030 [facility] Comment on above: Performed By: #### W SR, C3COMP, C4COMP, CRP, RF, SYPHGX, ENAID, DNA, SEPG, COMPD #### [place] [address] Urine Olegario Comment SEE COMMENT Normal [facility] Comment on above: Result Comment: N/A Performed By: #### W SR, C3COMP, C4COMP, CRP, RF, SYPHGX, ENAID, DNA, SEPG, COMPD #### [place] [phone] Urobilinogen Qn (U) Normal Normal Normal [facility] Comment on above: Performed By: #### W SR, C3COMP, C4COMP, CRP, RF, SYPHGX, ENAID, DNA, SEPG, COMPD #### [place] [phone] WBC #/vol (Bld) 0-5 Normal 0-5 [facility] Comment on above: Performed By: #### W SR, C3COMP, C4COMP, CRP, RF, SYPHGX, ENAID, DNA, SEPG, COMPD #### [facility] [address] [place], [place] [address] XR CHEST 2V FRONTAL/LATon XR CHEST 2V [...] Jan 22 2019 11:27AM EST [id number] Normal [facility] ED Provider Noteon 8 Protein mass conc Triage Chief Complaint:Abdominal PainHOPI:Bernadette Faust is a 23 y.o. female who presents to the emergencydepartment as a [facility]. She has beenexperiencing pain for the past day. She describes it as a sharp, stabbingsensation that waxes and wanes and it worse with movement. It is nonradiatingand she has never experienced similar pain before. She has had associated nauseaand 2 episodes of nonbloody emesis. She had a positive test 3 days agobut has not had an ultrasound or established gear room keeper care. Her last menstrualperiod was in the [...] Weight 140 lb (63.5 kg) Height 5' 5" (1.651 m) Head Circumference Peak Flow Pain [...] Color, UA Yellow Lt. Yellow NA Specific [place], Urine 1.015 1.005 - 1.030 NA pH, [...] 09/11/2018 05:35:00 EST ExamUS Transvaginal Ordering Physician [id number] [place]AM Accession Number [id number] Codes 92194 () Reason For Exam LLQ pain Report [...] to her the importance offollowing up with [facility] in 48 hours in order to have a repeatquantitative hCG drawn. She has expressed her understanding therefore she wasdischarged home in stable condition. The gear room keeper service was contacted and madeaware of the [...] dictating provider for clarification.Yue Ya MD09/11/181926 Normal [facility] HCG,Urine Qualon 09-11-2018 HCG.beta subunit ( test) Ql (U) Positive Normal Negative [facility] Comment on above: Result Comment: Preg subhash is the most common reason for HCG in urine, althoughchoriocarcinoma, hydatidiform mole, and certain nontropho-blastic malignancies also result in detectable urinary HCGlevels. Sensitivity = 20mIU/mL. Performed By: #### H WENDY AIKEN3 ####The performing lab is in the report. US Transvaginalon 09-11-2018 US Transvaginal Patient Name: BERNADETTE FAUST Ultrasound Exam Date/Time 09/11/2018 05:35:00 EST Exam US Transvaginal Ordering Physician [id number] YUE READ Accession Number [id number] CPT4 Codes 99514 () Reason For Exam LLQ pain Report [...] Transcribed Date and Time: 09/11/2018 6:41 Normal [facility] Urinalysis,Macroon 8 Appearance Clear Normal Clear [facility] Comment on above: Performed By: #### H EMDF, BMP3 ####The performing lab is in the report. Bilirubin,Ur Negative Normal Negative [facility] Comment on above: Performed By: #### H EMDF, BMP3 ####The performing lab is in the report. Color Yellow Normal Lt. Yellow [facility] Comment on above: Performed By: #### H EMDF, BMP3 ####The performing lab is in the report. Glucose Ql (U) NEG (Normal) Normal Negative [facility] Comment on above: Performed By: #### H EMDF, BMP3 ####The performing lab is in the report. Ketone,Urine Negative Normal Negative [facility] Comment on above: Performed By: #### H EMDF, BMP3 ####The performing lab is in the report. Leukocytes Trace Normal Negative [facility] Comment on above: Performed By: #### H EMDF, BMP3 ####The performing lab is in the report. Nitrites Negative Normal Negative [facility] Comment on above: Performed By: #### H EMDF, BMP3 ####The performing lab is in the report. Occult Blood,Ur Negative Normal Negative [facility] Comment on above: Performed By: #### H EMDF, BMP3 ####The performing lab is in the report. pH Test strip (U) 5.0 Normal 5.0-8.0 [facility] Comment on above: Performed By: #### H EMDF, BMP3 ####The performing lab is in the report. Specific [place],Urine 1.015 Normal 1.005-1.[address] [facility] Comment on above: Performed By: #### H EMDF, BMP3 ####The performing lab is in the report. Total Protein,Urine Negative Normal Negative [facility] Comment on above: Performed By: #### H EMDF, BMP3 ####The performing lab is in the report. Urobilinogen Normal (0.2) Normal 0-1 [facility] Comment on above: Performed By: #### H [place], BMP3 ####The performing lab is in the report. Urinalysis,Microscopicon Bacteria Few (1-5) Normal Negative [facility] Comment on above: Performed By: #### H [place], BMP3 ####The performing lab is in the report. Epithelial Cells 0 - 2 Normal 3-5 [facility] Comment on above: Performed By: #### H EMDF, BMP3 ####The performing lab is in the report. RBC LM.HPF #/area (Urine sed) Negative Normal 0-2 [facility] Comment on above: Performed By: #### H [place], BMP3 ####The performing lab is in the report. Volume,Urine 12 ml Normal [facility] Comment on above: Performed By: #### H [place], BMP3 ####The performing lab is in the report. WBC LM.HPF #/area (Urine sed) 0 - 2 Normal 0-5 [facility] Comment on above: Performed By: #### H [place], BMP3 ####The performing lab is in the report. hCG Quantitativeon 8 hCG Quantitative 332 m[IU]/mL Abnormal < 3 [facility] Comment on above: Performed By: #### H [place], BMP3 ####The performing lab is in the report. HCG,Urine Qualon 07-27-2018 HCG.beta subunit ( test) Ql (U) Negative Normal Negative [facility] Comment on above: Result Comment: Preg subhash is the most common reason for HCG in urine, althoughchoriocarcinoma, hydatidiform mole, and certain nontropho-blastic malignancies also result in detectable urinary HCGlevels. Sensitivity = 20mIU/mL. Performed By: #### H EMDF, BMP3 ####The performing lab is in the report. hCG Qual Pregon 07-27-2018 hCG Qual Preg Negative Normal [facility] Comment on above: Result Comment: REF RANGE:Negative .... < 3Questionable Rpt 48-72 HrPositive ..... > 10 Performed By: #### H EMDF, BMP3 ####The performing lab is in the report. Basic Metabolic Panelon 06-0 Anion gap 3 molar conc 7 Normal [facility] Comment on above: Performed By: #### H EMDF, TROPN, BMP3, DDI2, BNP3 ####[place] [id number] [facility] [place] [address] Calcium mass conc 9.4 mg/dL Normal 8.2-10.1 [facility] Comment on above: Performed By: #### H EMDF, TROPN, BMP3, DDI2, BNP3 ####[place] [id number] [place] [address] Chloride molar conc 103 mmol/L Normal 98-109 [facility] Comment on above: Performed By: #### H EMDF, TROPN, BMP3, DDI2, BNP3 ####[place] [id number] [place] [address] CO2 molar conc 24 mmol/L Normal 21-32 [facility] Comment on above: Performed By: #### H EMDF, TROPN, BMP3, DDI2, BNP3 ####[place] [id number] [place] [address] Creatinine mass conc 0.97 mg/dL Normal 0.55-1.40 [facility] Comment on above: Performed By: #### H EMDF, TROPN, BMP3, DDI2, BNP3 ####[id number] [place] [address] GFR/1.73 sq M predicted among blacks MDRD vol rate/area (S/P/Bld) mL/min/{1.73_m2} Normal >60 [facility] Comment on above: Performed By: #### H EMDF, TROPN, BMP3, DDI2, BNP3 ####[id number] [place] [address] GFR/1.73 sq M predicted among non-blacks MDRD vol rate/area (S/P/Bld) mL/min/{1.73_m2} Normal >60 [facility] Comment on above: Result Comment: Sour ce- MDRD equation with creatinine calibration to IDMS(NKDEP) eGFR not recommended for drug dose adjustment Performed By: #### H EMDF, TROPN, BMP3, DDI2, BNP3 ####[facility] [place] [address] Glucose mass conc 104 mg/dL High 70-100 [facility] Comment on above: Result Comment: . Performed By: #### H EMDF, TROPN, BMP3, DDI2, BNP3 ####[id number] [place] [address] Potassium molar conc 3.5 mmol/L Normal 3.5-5.1 [facility] Comment on above: Performed By: #### H EMDF, TROPN, BMP3, DDI2, BNP3 ####[id number] [place] [address] Sodium molar conc 134 mmol/L Low 135-145 [facility] Comment on above: Performed By: #### H EMDF, TROPN, BMP3, DDI2, BNP3 ####[id number] [place] [address] Urea nitrogen mass conc 9 mg/dL Normal 7-25 [facility] Comment on above: Performed By: #### H EMDF, TROPN, BMP3, DDI2, BNP3 ####[address] [address] CR Chest PA/LATon 03-31-2018 CR Chest PA/LAT Patient Name: BERNADETTE GODINEZ Diagnostic Radiology Exam Date/Time 03/31/2018 15:58:01 EDT Exam CR Chest PA/LAT Ordering Physician MD TAYLOR EARL Accession Number [id number] CPT4 Codes 98145 () Reason For Exam shortness of breath [...] Transcribed Date and Time: 03/31/2018 4:00 Normal [facility] D-Dimer, Innovanceon 018 D-Dimer, Innovance < 0.19 Normal 0.00-0.50 [facility] Comment on above: Result Comment: Inno amin D-Dimer values of <0.50 mg/L FEU can be used incombination with a pre-test probability model (e.g. Well's)to exclude pulmonary embolism (PE) disease, as well as ciro in the diagnosis of deep vein thrombosis (DVT). Performed By: #### H EMDF, TROPN, BMP3, DDI2, BNP3 ####[facility] [place] [address] Drugs of Abuseon 03-31-2018 Amphetamine, Ur Positive Normal [facility] Comment on above: Performed By: #### H EMDF, BMP3 ####The performing lab is in the report. Barbiturates, Ur Positive Normal [facility] Comment on above: Performed By: #### H EMDF, BMP3 ####The performing lab is in the report. Benzodiazepines, Ur Negative [facility] Comment on above: Performed By: #### H EMDF, BMP3 ####The performing lab is in the report. Cocaine, Ur Negative [facility] Comment on above: Performed By: #### H EMDF, BMP3 ####The performing lab is in the report. Methadone, Ur Negative Normal [facility] Comment on above: Performed By: #### H EMDF, BMP3 ####The performing lab is in the report. Opiates, Ur Negative [facility] Comment on above: Performed By: #### H EMDF, BMP3 ####The performing lab is in the report. Oxycodone/Oxymorphone, Ur Negative [facility] Comment on above: Performed By: #### H EMDF BMP3 ####The performing lab is in the report. Phencyclidine (PCP), Ur Negative Normal [facility] Comment on above: Result Comment: The expected [...] Abs Baso Cnt 0.0 10*3/uL Normal 0.0-0.2 [facility] Comment on above: Performed By: #### H EMDF, TROPN, BMP3, DDI2, BNP3 ####[address] [address] Abs Neutrophile Cnt 4.0 10*3/uL Normal 1.8-7.0 [facility] Comment on above: Performed By: #### H EMDF, TROPN, BMP3, DDI2, BNP3 ####[address] [address] Basophils/100 WBC Auto (Bld) 0.5 % Normal 0.0-2.0 [facility] Comment on above: Performed By: #### H EMDF, TROPN, BMP3, DDI2, BNP3 ####[address] [address] Eosinophils Auto #/vol (Bld) 0.0 10*3/uL Normal 0.0-0.5 [facility] Comment on above: Performed By: #### H EMDF, TROPN, BMP3, DDI2, BNP3 ####[address] [address] Eosinophils/100 WBC Auto (Bld) 0.4 % Low 1.0-6.0 [facility] Comment on above: Performed By: #### H EMDF, TROPN, BMP3, DDI2, BNP3 ####[address] [address] Erythrocyte distribution width Auto Ratio (RBC) 12.5 % Normal 11.5-14.5 [facility] Comment on above: Performed By: #### H EMDF, TROPN, BMP3, DDI2, BNP3 ####[address] [address] Granulocytes/100 WBC (Bld) 57.4 % Normal 40.0-80.0 [facility] Comment on above: Performed By: #### H EMDF, TROPN, BMP3, DDI2, BNP3 ####[address] [address] Hematocrit Auto Volume Fraction (Bld) 39.5 % Normal 35.0-47.0 [facility] Comment on above: Performed By: #### H EMDF, TROPN, BMP3, DDI2, BNP3 ####[address] [address] Hemoglobin mass conc (Bld) 13.2 g/dL Normal 11.7-16.0 [facility] Comment on above: Performed By: #### H EMDF, TROPN, BMP3, DDI2, BNP3 ####[address] [address] Lymphocytes Auto #/vol (Bld) 2.4 10*3/uL Normal 1.0-4.3 [facility] Comment on above: Performed By: #### H EMDF, TROPN, BMP3, DDI2, BNP3 ####[address] [address] Lymphocytes/100 WBC Auto (Bld) 34.6 % Normal 20.0-40.0 [facility] Comment on above: Performed By: #### H EMDF, TROPN, BMP3, DDI2, BNP3 ####[address] [address] MCH Auto Entitic mass (RBC) 28.8 pg Normal 26.0-34.0 [facility] Comment on above: Performed By: #### H EMDF, TROPN, BMP3, DDI2, BNP3 ####[address] [address] MCHC Auto mass conc (RBC) 33.4 % Normal 32.0-36.0 [facility] Comment on above: Performed By: #### H EMDF, TROPN, BMP3, DDI2, BNP3 ####[address] [address] MCV Auto Entitic volume (RBC) 86.2 fL Normal 79.0-98.0 [facility] Comment on above: Performed By: #### H EMDF, TROPN, BMP3, DDI2, BNP3 ####[address] [address] Monocytes Auto #/vol (Bld) 0.5 10*3/uL Normal 0.0-0.8 [facility] Comment on above: Performed By: #### H EMDF, TROPN, BMP3, DDI2, BNP3 ####[address] [address] Monocytes/100 WBC Auto (Bld) 7.1 % Normal 2.0-10.0 [facility] Comment on above: Performed By: #### H EMDF, TROPN, BMP3, DDI2, BNP3 ####[address] [address] Platelet mean volume Auto Entitic volume (Bld) 8.1 fL Normal 7.4-10.4 [facility] Comment on above: Performed By: #### H EMDF, TROPN, BMP3, DDI2, BNP3 ####[address] [address] Platelets Auto #/vol (Bld) 214 10*3/uL Normal 140-440 [facility] Comment on above: Performed By: #### H EMDF, TROPN, BMP3, DDI2, BNP3 ####[address] [address] RBC Auto #/vol (Bld) 4.59 10*6/uL Normal 3.80-5.20 [facility] Comment on above: Performed By: #### H EMDF, TROPN, BMP3, DDI2, BNP3 ####[id number] [place] [address] WBC Auto #/vol (Bld) 6.9 10*3/uL Normal 3.6-10.7 [facility] Comment on above: Performed By: #### H EMDF, TROPN, BMP3, DDI2, BNP3 ####[address] [address] NT pro BNPon 03-31-2018 Natriuretic peptide B mass conc (Bld) 44 pg/mL Normal 0-125 [facility] Comment on above: Performed By: #### H EMDF, BMP3 ####The performing lab is in the report. Troponin Ion 03-31-2018 Troponin I.cardiac mass conc ng/mL Normal 0.000-0.045 [facility] Comment on above: Result Comment: 0.04 6 - 0.400 = Indeterminate> 0.400 = Consider Myocardial Injury Performed By: #### H EMDF, TROPN, BMP3, DDI2, BNP3 ####[address] [address] Urinalysis,Macroon 8 Appearance Clear Normal Clear [facility] Comment on above: Performed By: #### H EMDF, BMP3 ####The performing lab is in the report. Bilirubin,Ur Negative Normal Negative [facility] Comment on above: Performed By: #### H EMDF BMP3 ####The performing lab is in the report. Color Yellow Normal Lt. Yellow [facility] Comment on above: Performed By: #### H EMDF, BMP3 ####The performing lab is in the report. Glucose Ql (U) NEG (Normal) Normal Negative [facility] Comment on above: Performed By: #### H ATTILA, BMP3 ####The performing lab is in the report. Ketone,Urine Negative Normal Negative [facility] Comment on above: Performed By: #### H EMDF, BMP3 ####The performing lab is in the report. Leukocytes 1 + Normal Negative [facility] Comment on above: Performed By: #### H EMDF, BMP3 ####The performing lab is in the report. Nitrites Negative Normal Negative [facility] Comment on above: Performed By: #### H EMDF, BMP3 ####The performing lab is in the report. Occult Blood,Ur Negative Normal Negative [facility] Comment on above: Performed By: #### H EMDF, BMP3 ####The performing lab is in the report. pH Test strip (U) 7.0 Normal 5.0-8.0 [facility] Comment on above: Performed By: #### H EMDF, BMP3 ####The performing lab is in the report. Specific [place],Urine 1.010 Normal 1.005-1.[address] [facility] Comment on above: Performed By: #### H EMDF, BMP3 ####The performing lab is in the report. Total Protein,Urine Negative Normal Negative [facility] Comment on above: Performed By: #### H EMDF, BMP3 ####The performing lab is in the report. Urobilinogen Normal (0.2) Normal 0-1 [facility] Comment on above: Performed By: #### H EMDF, BMP3 ####The performing lab is in the report. Urinalysis,Microscopicon Bacteria Many (51-100) Normal Negative [facility] Comment on above: Performed By: #### H EMDF, BMP3 ####The performing lab is in the report. Epithelial Cells 11 - 25 Normal 3-5 [facility] Comment on above: Performed By: #### H EMDF, BMP3 ####The performing lab is in the report. RBC LM.HPF #/area (Urine sed) Negative Normal 0-2 [facility] Comment on above: Performed By: #### H EMDF, BMP3 ####The performing lab is in the report. WBC LM.HPF #/area (Urine sed) 0 - 2 Normal 0-5 [facility] Comment on above: Performed By: #### H EMDF, BMP3 ####The performing lab is in the report. Basic Metabolic Panelon - Anion gap 3 molar conc 10 mmol/L Normal [facility] Comment on above: Performed By: #### H MARVELF, BMP3 ####The performing lab is in the report. Calcium mass conc 9.4 mg/dL Normal 8.2-10.1 [facility] Comment on above: Performed By: #### H EMDF, BMP3 ####The performing lab is in the report. Chloride molar conc 100 mmol/L Normal 98-109 [facility] Comment on above: Performed By: #### H EMDF, BMP3 ####The performing lab is in the report. CO2 molar conc 28 mmol/L Normal 21-32 [facility] Comment on above: Performed By: #### H MARVELF, BMP3 ####The performing lab is in the report. Creatinine mass conc 0.81 mg/dL Normal 0.55-1.40 [facility] Comment on above: Performed By: #### H MARVELF, BMP3 ####The performing lab is in the report. GFR/1.73 sq M predicted among blacks MDRD vol rate/area (S/P/Bld) mL/min/{1.73_m2} Normal >60 [facility] Comment on above: Performed By: #### H MARVELF, BMP3 ####The performing lab is in the report. GFR/1.73 sq M predicted among non-blacks MDRD vol rate/area (S/P/Bld) mL/min/{1.73_m2} Normal >60 [facility] Comment on above: Result Comment: Sour ce- MDRD equation with creatinine calibration to IDMS(NKDEP)eGFR not recommended for drug dose adjustment Performed By: #### H EMDF, BMP3 ####The performing lab is in the report. Glucose mass conc 119 mg/dL High 70-100 [facility] Comment on above: Result Comment: . Performed By: #### H EMDF, BMP3 ####The performing lab is in the report. Potassium molar conc 3.9 mmol/L Normal 3.5-5.1 [facility] Comment on above: Performed By: #### H EMDF, BMP3 ####The performing lab is in the report. Sodium molar conc 138 mmol/L Normal 135-145 [facility] Comment on above: Performed By: #### H EMDF, BMP3 ####The performing lab is in the report. Urea nitrogen mass conc 8 mg/dL Normal 7-25 [facility] Comment on above: Performed By: #### H EMDF, BMP3 ####The performing lab is in the report. HCG,Urine Qualon 02-02-2018 HCG.beta subunit ( test) Ql (U) Negative Normal Negative [facility] Comment on above: Result Comment: Preg subhash is the most common reason for HCG in urine, althoughchoriocarcinoma, hydatidiform mole, and certain nontropho-blastic malignancies also result in detectable urinary HCGlevels. Sensitivity = 20mIU/mL. Performed By: #### H CGUR, UAMAC ####The performing lab is in the report. Hemogram w/ Autodiffon 02-02 Abs Baso Cnt 0.4 10*3/uL High 0.0-0.2 [facility] Comment on above: Performed By: #### H EMDF, BMP3 ####The performing lab is in the report. Abs Neutrophile Cnt 9.1 10*3/uL High 1.8-7.0 [facility] Comment on above: Performed By: #### H EMDF, BMP3 ####The performing lab is in the report. Basophils/100 WBC Auto (Bld) 2.6 % High 0.0-2.0 [facility] Comment on above: Performed By: #### H EMDF, BMP3 ####The performing lab is in the report. Eosinophils Auto #/vol (Bld) 0.1 10*3/uL Normal 0.0-0.5 [facility] Comment on above: Performed By: #### H EMDF, BMP3 ####The performing lab is in the report. Eosinophils/100 WBC Auto (Bld) 0.5 % Low 1.0-6.0 [facility] Comment on above: Performed By: #### H EMDF, BMP3 ####The performing lab is in the report. Erythrocyte distribution width Auto Ratio (RBC) 11.8 % Normal 11.5-14.5 [facility] Comment on above: Performed By: #### H EMDF, BMP3 ####The performing lab is in the report. Granulocytes/100 WBC (Bld) 63.9 % Normal 40.0-80.0 [facility] Comment on above: Performed By: #### H EMDF, BMP3 ####The performing lab is in the report. Hematocrit Auto Volume Fraction (Bld) 42.2 % Normal 35.0-47.0 [facility] Comment on above: Performed By: #### H EMDF, BMP3 ####The performing lab is in the report. Hemoglobin mass conc (Bld) 13.8 g/dL Normal 11.7-16.0 [facility] Comment on above: Performed By: #### H EMDF, BMP3 ####The performing lab is in the report. Lymphocytes Auto #/vol (Bld) 3.9 10*3/uL Normal 1.0-4.3 [facility] Comment on above: Performed By: #### H EMDF, BMP3 ####The performing lab is in the report. Lymphocytes/100 WBC Auto (Bld) 27.1 % Normal 20.0-40.0 [facility] Comment on above: Performed By: #### H EMDF, BMP3 ####The performing lab is in the report. MCH Auto Entitic mass (RBC) 27.6 pg Normal 26.0-34.0 [facility] Comment on above: Performed By: #### H EMDF, BMP3 ####The performing lab is in the report. MCHC Auto mass conc (RBC) 32.8 % Normal 32.0-36.0 [facility] Comment on above: Performed By: #### H EMDF, BMP3 ####The performing lab is in the report. MCV Auto Entitic volume (RBC) 84.3 fL Normal 79.0-98.0 [facility] Comment on above: Performed By: #### H EMDF, BMP3 ####The performing lab is in the report. Monocytes Auto #/vol (Bld) 0.9 10*3/uL High 0.0-0.8 [facility] Comment on above: Performed By: #### H EMDF, BMP3 ####The performing lab is in the report. Monocytes/100 WBC Auto (Bld) 5.9 % Normal 2.0-10.0 [facility] Comment on above: Performed By: #### H EMDF, BMP3 ####The performing lab is in the report. Platelet mean volume Auto Entitic volume (Bld) 7.3 fL Low 7.4-10.4 [facility] Comment on above: Performed By: #### H EMDF, BMP3 ####The performing lab is in the report. Platelets Auto #/vol (Bld) 224 10*3/uL Normal 140-440 [facility] Comment on above: Performed By: #### H EMDF, BMP3 ####The performing lab is in the report. RBC Auto #/vol (Bld) 5.01 10*6/uL Normal 3.80-5.20 [facility] Comment on above: Performed By: #### H EMDF, BMP3 ####The performing lab is in the report. WBC Auto #/vol (Bld) 14.4 10*3/uL High 3.6-10.7 [facility] Comment on above: Performed By: #### H EMDF, BMP3 ####The performing lab is in the report. Urinalysis,Macroon 8 Appearance Clear Normal Clear [facility] Comment on above: Performed By: #### H CGUR, UAMAC ####The performing lab is in the report. Bilirubin,Ur Negative Normal Negative [facility] Comment on above: Performed By: #### H CGUR, UAMAC ####The performing lab is in the report. Color Yellow Normal Lt. Yellow [facility] Comment on above: Performed By: #### H CGUR, UAMAC ####The performing lab is in the report. Glucose Ql (U) NEG (Normal) Normal Negative [facility] Comment on above: Performed By: #### H CGUR, UAMAC ####The performing lab is in the report. Ketone,Urine Negative Normal Negative [facility] Comment on above: Performed By: #### H CGUR, UAMAC ####The performing lab is in the report. Leukocytes Trace Normal Negative [facility] Comment on above: Performed By: #### H CGUR, UAMAC ####The performing lab is in the report. Nitrites Negative Normal Negative [facility] Comment on above: Performed By: #### H CGUR, UAMAC ####The performing lab is in the report. Occult Blood,Ur Negative Normal Negative [facility] Comment on above: Performed By: #### H CGUR, UAMAC ####The performing lab is in the report. pH Test strip (U) 6.5 [pH] Normal 5.0-8.0 [facility] Comment on above: Performed By: #### H CGUR, UAMAC ####The performing lab is in the report. Specific [place],Urine 1.010 Normal 1.005-1.[address] [facility] Comment on above: Performed By: #### H CGUR, UAMAC ####The performing lab is in the report. Total Protein,Urine Negative Normal Negative [facility] Comment on above: Performed By: #### H CGUR, UAMAC ####The performing lab is in the report. Urobilinogen Normal (0.2) Normal 0-1 [facility] Comment on above: Performed By: #### H CGUR, UAMAC ####The performing lab is in the report. CR Hand Complete 3+ Views Norma robb 12-23-2017 CR Hand Complete 3+ Views Right Patient Name: BERNADETTE CHAO Diagnostic Radiology Exam Date/Time 12/23/2017 06:06:35 EST Exam CR Hand Complete 3+ Views Right Ordering Physician MD JUAREZ, TONY Accession Number [id number] CPT4 Codes 35765 () Reason For Exam right fingers injury [...] Transcribed Date and Time: 12/23/2017 6:12 Normal [facility] Vital Signs Date Time Vital Sign Value Performing Clinician Facility 06-13-2025 10:34-0400 Body height 165.[address] Becky Sotelo MD Work Phone: 4(456)376-930543 [place] [address] 06-13-2025 10:34-0400 Body mass index (BMI) [Ratio] 32.1 kg/m2 Dr. Becky Sotelo MD Work Phone: 4(491)487-785943 [place] [address] 06-13-2025 10:34-0400 Body temperature 97.2 [degF] Dr. Becky Sotelo MD Work Phone: 0(337)423-385043 [place] [address] 06-13-2025 10:34-0400 Body weight 87.[address] Becky Sotelo MD Work Phone: 7(803)520-259343 [place] [address] 06-13-2025 10:34-0400 Diastolic blood pressure 66 mm[Hg] Dr. Becky Sotelo MD Work Phone: 6(231)139-859343 [place] [address] 06-13-2025 10:34-0400 Heart rate 82 /min Dr. Becky Sotelo MD Work Phone: 3(361)777-364743 [place] [address] 06-13-2025 10:34-0400 Respiratory rate 16 /min Dr. Becky Sotelo MD Work Phone: 2(917)541-357343 [place] [address] 06-13-2025 10:34-0400 SaO2% (BldA) [Mass fraction] 96 % Dr. Becky Sotelo MD Work Phone: 9(735)681-799643 [place] [address] 06-13-2025 10:34-0400 Systolic blood pressure 116 mm[Hg] Dr. Becky Sotelo MD Work Phone: 2(505)034-730443 [place] [address] 06-13-2025 10:26-0400 Body mass index (BMI) [Ratio] 32.5 kg/m2 Dr. Becky Sotelo MD Work Phone: 7(862)267-106743 [place] [address] 06-13-2025 10:26-0400 Body weight 88.[address] Becky Sotelo MD Work Phone: 0(751)613-640243 [place] [address] 06-13-2025 10:26-0400 Diastolic blood pressure 78 mm[Hg] Dr. Becky Sotelo MD Work Phone: 9(388)938-644343 [place] [address] 06-13-2025 10:26-0400 Systolic blood pressure 128 mm[Hg] Dr. Becky Sotelo MD Work Phone: 5(255)750-891143 [place] [address] 04-23-2025 09:49-0400 Body height 165.[address] Becky Sotelo MD Work Phone: 1(738)612-877543 [place] [address] 04-23-2025 09:49-0400 Body mass index (BMI) [Ratio] 33.5 kg/m2 Dr. Becky Sotelo MD Work Phone: 4(463)494-071243 [place] [address] 04-23-2025 09:49-0400 Body temperature 98.5 [degF] Dr. Becky Sotelo MD Work Phone: 4(665)417-965643 [place] [address] 04-23-2025 09:49-0400 Body weight 91.[address] Becky Sotelo MD Work Phone: 4(161)725-226443 [place] [address] 04-23-2025 09:49-0400 Diastolic blood pressure 80 mm[Hg] Dr. Becky Sotelo MD Work Phone: 4(338)059-972643 [place] [address] 04-23-2025 09:49-0400 Heart rate 81 /min Dr. Becky Sotelo MD Work Phone: 0(335)463-370543 [place] [address] 04-23-2025 09:49-0400 Respiratory rate 18 /min Dr. Becky Sotelo MD Work Phone: 9(044)721-679243 [place] [address] 04-23-2025 09:49-0400 SaO2% (BldA) [Mass fraction] 96 % Dr. Becky Sotelo MD Work Phone: 4(348)151-928143 [place] [address] 04-23-2025 09:49-0400 Systolic blood pressure 142 mm[Hg] Dr. Becky Sotelo MD Work Phone: 2(085)292-417143 [place] [address] 03-31-2025 13:38-0400 Body height 165.[address] Becky Sotelo MD Work Phone: 5(565)374-663243 [place] [address] 03-31-2025 13:38-0400 Body mass index (BMI) [Ratio] 31.8 kg/m2 Dr. Becky Sotelo MD Work Phone: 2(785)778-005743 [place] [address] 03-31-2025 13:38-0400 Body weight 86.[address] Becky Sotelo MD Work Phone: 5(798)161-002743 [place] [address] 03-31-2025 13:38-0400 Diastolic blood pressure 77 mm[Hg] Dr. Becky Sotelo MD Work Phone: 9(224)547-674243 [place] [address] 03-31-2025 13:38-0400 Systolic blood pressure 115 mm[Hg] Dr. Becky Sotelo MD Work Phone: 1(413)613-795543 [place] [address] 03-28-2025 08:26-0400 Body height 165.[address] Becky Sotelo MD Work Phone: 2(529)364-922243 [place] [address] 03-28-2025 08:26-0400 Body mass index (BMI) [Ratio] 32.1 kg/m2 Dr. Becky Sotelo MD Work Phone: 6(520)836-878443 [place] [address] 03-28-2025 08:26-0400 Body temperature 97.1 [degF] Dr. Becky Sotelo MD Work Phone: 0(030)253-771843 [place] [address] 03-28-2025 08:26-0400 Body weight 87.[address] Becky Sotelo MD Work Phone: 2(870)400-412543 [place] [address] 03-28-2025 08:26-0400 Diastolic blood pressure 72 mm[Hg] Dr. Becky Sotelo MD Work Phone: 3(896)051-553543 [place] [address] 03-28-2025 08:26-0400 Heart rate 76 /min Dr. Becky Sotelo MD Work Phone: 3(823)799-905643 [place] [address] 03-28-2025 08:26-0400 Respiratory rate 16 /min Dr. Becky Sotelo MD Work Phone: 7(034)208-039743 [place] [address] 03-28-2025 08:26-0400 SaO2% (BldA) [Mass fraction] 97 % Dr. Becky Sotelo MD Work Phone: 6(022)359-000343 [place] [address] 03-28-2025 08:26-0400 Systolic blood pressure 112 mm[Hg] Dr. Becky Sotelo MD Work Phone: 8(918)673-455943 [place] [address] 03-07-2025 08:45-0400 Body mass index (BMI) [Ratio] 31.2 kg/m2 Dr. Becky Sotelo MD Work Phone: 6(770)955-420443 [place] [address] 03-07-2025 08:45-0400 Body temperature 97.2 [degF] Dr. Becky Sotelo MD Work Phone: 6(696)653-049043 [place] [address] 03-07-2025 08:45-0400 Body weight 85.[address] Becky Sotelo MD Work Phone: 7(762)411-128943 [place] [address] 03-07-2025 08:45-0400 Diastolic blood pressure 80 mm[Hg] Dr. Becky Sotelo MD Work Phone: 7(525)531-814743 [place] [address] 03-07-2025 08:45-0400 Heart rate 84 /min Dr. Becky Sotelo MD Work Phone: 5(980)455-289043 [place] [address] 03-07-2025 08:45-0400 Respiratory rate 16 /min Dr. Becky Sotelo MD Work Phone: 7(413)472-930143 [place] [address] 03-07-2025 08:45-0400 SaO2% (BldA) [Mass fraction] 98 % Dr. Becky Sotelo MD Work Phone: 0(474)371-566643 [place] [address] 03-07-2025 08:45-0400 Systolic blood pressure 110 mm[Hg] Dr. Becky Sotelo MD Work Phone: 7(819)278-737643 [place] [address] 02-28-2025 17:12-0400 Body temperature 98 [degF] Dr. Becky Sotelo MD Work Phone: 5(568)867-834343 [place] [address] 02-28-2025 17:12-0400 Diastolic blood pressure 70 mm[Hg] Dr. Becky Sotelo MD Work Phone: 6(764)461-711643 [place] [address] 02-28-2025 17:12-0400 Heart rate 68 /min Dr. Becky Sotelo MD Work Phone: 5(811)997-843743 [place] [address] 02-28-2025 17:12-0400 Respiratory rate 12 /min Dr. eBcky Sotelo MD Work Phone: 8(032)410-933443 [place] [address] 02-28-2025 17:12-0400 SaO2% (BldA) [Mass fraction] 100 % Dr. Becky Sotelo MD Work Phone: 7(680)666-439343 [place] [address] 02-28-2025 17:12-0400 Systolic blood pressure 108 mm[Hg] Dr. Becky Sotelo MD Work Phone: 8(003)994-396743 [place] [address] 02-28-2025 15:20-0400 Body mass index (BMI) [Ratio] 30.3 kg/m2 Dr. Becky Sotelo MD Work Phone: 2(676)812-179143 [place] [address] 02-28-2025 15:20-0400 Body weight 82.[address] Becky Sotelo MD Work Phone: 8(428)851-098143 [place] [address] 02-25-2025 08:36-0400 Body mass index (BMI) [Ratio] 30.2 kg/m2 Dr. Becky Sotelo MD Work Phone: 5(340)228-506943 [place] [address] 02-25-2025 08:36-0400 Body weight 82.[address] Becky Sotelo MD Work Phone: 7(404)410-622443 [place] [address] 02-25-2025 08:36-0400 Diastolic blood pressure 83 mm[Hg] Dr. Becky Sotelo MD Work Phone: 8(604)682-152243 [place] [address] 02-25-2025 08:36-0400 Systolic blood pressure 134 mm[Hg] Dr. Becky Sotelo MD Work Phone: [facility] 12-25-2024 09:17-0500 Body temperature 97.7 [degF] [facility] 12-25-2024 09:17-0500 Diastolic blood pressure 96 mm[Hg] Acute Resident [facility] 12-25-2024 09:17-0500 Heart rate 101 /min [facility] 12-25-2024 09:17-0500 Respiratory rate 16 /min Acute Resident [facility] 12-25-2024 09:17-0500 Systolic blood pressure 154 mm[Hg] Acute Resident [facility] 11-27-2024 18:00-0500 Diastolic blood pressure 84 mm[Hg] Junior Garcia MD Work Phone: [facility] 11-27-2024 18:00-0500 Heart rate 80 /min Junior Garcia MD Work Phone: [facility] 11-27-2024 18:00-0500 Respiratory rate 18 /min Junior Garcia MD Work Phone: [facility] 11-27-2024 18:00-0500 SaO2% (BldA) [Mass fraction] 99 % Junior Garcia MD Work Phone: [facility] 11-27-2024 18:00-0500 Systolic blood pressure 126 mm[Hg] Junior Garcia MD Work Phone: [facility] 11-27-2024 11:20-0500 Body temperature 98.01 [degF] Junior Garcia MD Work Phone: [facility] 11-27-2024 10:14-0500 Body temperature 98.29 [degF] Nedra Hurtado MD Work Phone: [facility] 11-27-2024 10:14-0500 Diastolic blood pressure 72 mm[Hg] Nedra Hurtado MD Work Phone: [facility] 11-27-2024 10:14-0500 Heart rate 87 /min Nedra Hurtado MD Work Phone: [facility] 11-27-2024 10:14-0500 Respiratory rate 16 /min Ned[facility]ado [facility] 11-27-2024 10:14-0500 Systolic blood pressure 125 mm[Hg] Nedra [facility]urtado [facility] 11-19-2024 09:14-0500 Body temperature 98.2 [degF] Adelfo Nice MD [facility]: [facility] 11-19-2024 09:14-0500 Diastolic blood pressure 76 mm[Hg] Adelfo Nice MD [facility] 11-19-2024 09:14-0500 Heart rate 80 /min Adelfo Nice MD [facility] 11-19-2024 09:14-0500 Respiratory rate 17 /min Adelfo Nice MD Work Phone: [facility] 11-19-2024 09:14-0500 SaO2% (BldA) [Mass fraction] 97 % Adelfo Nice MD [facility]: [facility] 11-19-2024 09:14-0500 Systolic blood pressure 117 mm[Hg] Adelfo Nice MD Work Phone: [facility] 02-10-2022 12:03-0400 Body height 165.[address] Becky Sotelo Work Phone: [facility] Work Phone: 02-10-2022 12:03-0400 Body mass index (BMI) [Ratio] 25.9 kg/m2 Dr. Becky Sotelo Work Phone: [facility] Work Phone: 02-10-2022 12:03-0400 Body weight 70.[address] Becky Sotelo Work Phone: [facility] Work Phone: 02-10-2022 12:03-0400 Diastolic blood pressure 82 mm[Hg] Dr. Becky Sotelo Work Phone: [facility] Work Phone: 02-10-2022 12:03-0400 Systolic blood pressure 136 mm[Hg] Dr. Becky Sotelo Work Phone: [facility] Work Phone: Encounters Encounter Date Encounter Type Care Provider Facility Start: 09-02-2025 End: 09-02-2025 Emergency department patient visit Radhaisabelle Tannerlay Facility:[facility] Start: 07-12-2025 End: 07-12-[address] 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 Becky Sotelo MD Work Phone: -[facility] Start: 06-13-2025 End: 06-13-[address] Elaine Jones MD -[facility] Work Phone: Start: 06-13-2025 End: 06-13-[address] Becky Sotelo MD Work Phone: -[facility] Start: 06-13-2025 End: 06-13-2025 ambulatory Elaine Jones Facility:[facility] Start: 05-29-2025 ambulatory Radha Pascual Facility :[facility] Start: 05-28-2025 End: 05-28-[address] Becky Sotelo MD Work Phone: -Laboratory [facility] Start: 05-28-2025 End: 05-28-[address] Radha Pascual MD -Laboratory [facility] Start: 05-28-2025 End: 05-28-2025 ambulatory Radha Tannerlay Facility:[facility] Start: 05-09-2025 End: 05-09-[address] 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 Becky Sotelo MD Work Phone: -Laboratory Specimen Start: 04-24-2025 End: 04-24-2025 Patient encounter procedure aL LESTER -Laboratory Specimen Work Phone: Start: 04-23-2025 End: 04-23-2025 Patient encounter procedure La LESTER -[facility] Work Phone: Start: 04-23-2025 End: 04-24-[address] Becky Sotelo MD Work Phone: [facility] Work Phone: Start: 04-08-2025 End: 04-08-2025 Refill Sarahy Estevez MD Work Phone: [facility] [employer] L[employer] OUT ENGINEER Comment on above: Refill Start: 03-31-2025 End: 03-31-[address] Elaine Jones MD -[facility] Work Phone: Start: 03-31-2025 End: 03-31-[address] Becky Sotelo MD Work Phone: [facility] Work Phone: Start: 03-28-2025 End: 03-28-2025 Patient encounter procedure Humberto ENGLAND -[facility] Work Phone: Start: 03-28-2025 End: 03-28-[address] Becky Sotelo MD Work Phone: [facility] Work Phone: Start: 03-13-2025 End: 03-13-2025 Refill Sarahy Estevez MD [facility]: [facility]INE[facility] Comment on above: Refill Start: 03-07-2025 End: 03-07-2025 Patient encounter procedure Humberto ENGLAND -[facility] Work Phone: Start: 03-07-2025 End: 03-07-2025 ambulatory Humberto ENGLAND Facility:[facility] Start: 02-28-2025 End: 02-28-2025 Emergency department patient visit Dr. Jorge Samuels DO -Emergency Department Work Phone: Start: 02-25-2025 End: 02-25-[address] Elaine Jones MD -Laboratory Work Phone: Start: 02-25-2025 End: 02-25-[address] Elaine Jones MD -[facility] Work Phone: Start: 02-25-2025 End: 02-25-2025 ambulatory Becky Sotelo [facility] Start: 02-25-2025 End: 02-25-2025 ambulatory Elaine Jones Facility:[facility] Start: 02-15-2025 End: 02-15-2025 Letter encounter Nedra [facility]ado MD [facility] Start: 12-25-2024 End: 12-25-2024 Office outpatient visit 25 minutes Acute Care Surgery Resident [facility] Acute Care Surgery Comment on above: Postprocedural intra abdominal abscess (HCC) (Primary Dx) Start: 12-25-2024 End: 12-25-2024 ambulatory UNKNOWN PROVIDER Facility:[facility] Start: 12-20-2024 ambulatory Becky Magana y:[facility] Start: 12-06-2024 End: 12-06-2024 Telephone encounter Dewey Gorman RN [facility] Acute Ca re Surgery Start: 12-05-2024 End: 12-15-2024 Telephone encounter Nedra Hurtado MD Work Phone: [facility] Line Comment on above: DME wound care. Start: 11-29-2024 End: 11-29-2024 ambulatory Fihusseinlarry Tellez UPHOLSTERER APPRENTICE, CERTIFIED NEURODIAGNOSTIC TECHNOLOGIST [employer] [facility] Start: 11-29-2024 End: 11-29-2024 Coordination of care plan Demetra Rosalinda UPHOLSTERER APPRENTICE, CERTIFIED NEURODIAGNOSTIC TECHNOLOGIST [facility] Comment on above: Care Coordination Start: 11-28-2024 End: 11-28-2024 ambulatory Firuslan Tellez UPHOLSTERER APPRENTICE, CERTIFIED NEURODIAGNOSTIC TECHNOLOGIST [employer] [facility] Start: 11-28-2024 End: 11-28-2024 Coordination of care plan Firuslan Tellez UPHOLSTERER APPRENTICE, CERTIFIED NEURODIAGNOSTIC TECHNOLOGIST [employer] [facility] Comment on above: Care Coordination Start: 11-27-2024 End: 11-27-2024 Office outpatient visit 40 minutes Nedra Hurtado MD Work Phone: [facility] Acute [facility] Surgery Comment on above: Postprocedural intra abdominal abscess (HCC) (Primary Dx) Start: 11-27-2024 End: 11-27-2024 Emergency department patient visit UNKNOWN PROVIDER Facility:[facility] Comment on above: Abdominal pain (Conc savana for perf bowl d/t drain output ) Start: 11-27-2024 End: 11-27-2024 ambulatory UNKNOWN PROVIDER Facility:[facility] Start: 11-27-2024 Emergency department patient visit UNKNOWN PROVIDER Facility:[facility] Start: 11-19-2024 End: 11-19-2024 ambulatory Fioknirmal Tellez UPHOLSTERER APPRENTICE, CERTIFIED NEURODIAGNOSTIC TECHNOLOGIST [facility] Start: 11-19-2024 End: 11-19-2024 Coordination of care plan Gerardmarixanirmal Tellez UPHOLSTERER APPRENTICE, CERTIFIED NEURODIAGNOSTIC TECHNOLOGIST [facility] Social Work Comment on above: Care Coordination Start: 11-19-2024 Evaluation and management of inpatient UNKNOWN PROVIDER Facility:[facility] Start: 11-15-2024 End: 11-19-2024 Evaluation and management of inpatient ADELFO NICE Facility:[facility] Start: 11-15-2024 ambulatory UNKNOWN PROVIDER Facili ty:[facility] Start: 11-14-2024 End: 11-19-2024 Evaluation and management of inpatient UNKNOWN PROVIDER Facility:[facility] Comment on above: Pre-eclampsia, antep artum (HCC) (Primary Dx); Postprocedural intraabdominal abscess (HCC); Positive urine drug screen; Type 2 diabetes mellitus without complication, without long-term current use of insulin (HCC) Start: 11-14-2024 End: 11-14-2024 Emergency department patient visit Sheila Lamar Facility:[facility] Start: 11-14-2024 ambulatory Genesis Arnaldo [facility] Start: 11-14-2024 End: 11-15-2024 Emergency department patient visit UNKNOWN PROVIDER Facility:[facility] Start: 11-07-2024 End: 11-07-2024 ambulatory Elaine Jones [facility] Start: 11-06-2024 ambulatory Elaine Jones Faci [facility]ity:[facility] Start: 11-06-2024 End: 11-09-2024 Evaluation and management of inpatient Becky Sotelo Facility:[facility] Start: 05-07-2024 ambulatory Marlo NATH RN.ELECTRONIC DATA INTERCHANGE SPECIALIST Work Phone: [facility] Comment on above: PHMA/Care Gap Outrea ch Start: 05-07-2024 Telephone encounter Marlo avitia APRN.ELECTRONIC DATA INTERCHANGE SPECIALIST Work Phone: [facility] Comment on above: Appointment Start: 02-10-2022 End: 02-10-[address] Becky Sotelo Work Phone: [facility]-Laboratory, Specimen Start: 02-10-2022 End: 02-10-[address] Becky Sotelo Work Phone: [facility] Start: 01-22-2019 End: 01-23-2019 Patient encounter procedure [facility] Start: 10-11-2018 Patient requested procedure Marlo Loza ZEHRA Work Phone: [facility] Start: 10-04-2018 Patient encounter procedure SHYANN BUSH Facility:[facility] Start: 09-11-2018 Emergency department patient visit Nishant Lucio [facility] Start: 07-27-2018 Emergency department patient visit UNKNOWN PROVIDER [facility] Start: 06-21-2018 Emergency department patient visit Edith Benitez [facility] Start: 03-31-2018 Emergency department patient visit Zhao Taylor [facility] Start: 02-02-2018 Emergency department patient visit UNKNOWN PROVIDER [facility] Start: 01-07-2018 Emergency department patient visit Marlo [place] [facility] Start: 12-23-2017 [facility] Start: 11-04-2017 Emergency department patient visit UNKNOWN PROVIDER [facility] Procedures Date Procedure Procedure Detail Performing Clinician Start: 07-12-2025 Methadone measurement, urine Dr. Radha Pascual MD Work Phone: Start: 05-28-[address] Becky mcginnis MD Work Phone: Comment on above: Test Ordered: [id number] Hair Drug Screen 9 PanelAmphetamines Negative pg/mg [...] otherwise noted.Test developed and characteristics determined by [facility]. See Compliance Statementon our website [email or web address].Certified by: Joan at: [facility] [id number] [place], [place] [id number] Director: Tami Stover PhD, Phone: [phone] at: [id number] [place], [place] [id number] Director: Donell Nieto PhD, Phone: [phone] Start: 05-09-[address] Becky [...] abdomen & pelvis w/contrast material Annie Parker [facility] Work Phone: Start: 11-27-2024 Radex abscess/fistul a/sinus tract rs&i Tushar Mondragon PA-C Work Phone: Start: 11-27-2024 Assay of lipase Bella beatty [facility] Work Phone: Start: 11-27-2024 Hepatic function panel Bella Win [facility]IC [employer] INTERCHANGE SPECIALIST Work Phone: Start: 11-19-2024 Glucose blood reagent [...] DTaP,Tdap,Td Vaccine (4 - Td or Tdap) [facility] Start: 11-27-2025 Creatinine measurement Basic Metabolic Panel [facility] Start: 07-30-2025 Influenza vaccination Influenza Vaccine (#1) [facility] Start: 06-30-2025 COVID-19 Vaccine ( season) COVID-19 Vaccine ( season) [facility] Start: 06-30-2025 Influenza vaccination Influenza Vaccine (#1) [facility] Start: 06-13-2025 CBC W Auto Differential panel - Blood [facility] Start: 06-13-2025 Comprehensive metabolic 2000 panel - Serum or Plasma [facility] Start: 06-13-2025 Hemoglobin A1c/Hemoglobin.total in Blood [facility] Start: 06-13-2025 Partial thromboplastin time, activated [facility] Start: 06-13-2025 Prothrombin time [facility] Start: 06-13-2025 Thyroid stimulating hormone measurement [facility] Start: 05-15-2025 Hemoglobin A1c measurement [facility] Start: 04-24-2025 Ova and Parasites Ova and Parasites [facility] Start: 04-24-2025 Ova OR parasites identification [facility] Start: 03-31-[address] [facility] Work Phone: Start: 02-28-2025 [facility] Start: 02-25-[address] [facility] Work Phone: Start: 06-30-2024 COVID-19 Vaccine ( season) COVID-19 Vaccine () [facility] Start: 06-30-2024 Influenza vaccination Influenza Vaccine (#1) [facility] Start: 10-30-2023 Behavioral Health Screening Behavioral Health Screening [facility] Start: 06-30-2023 Covid-19 Vaccine () Covid-19 Vaccine ( season) [facility] Start: 10-14-2022 Hepatitis B surface antibody level LDL Cholesterol [facility] Start: 10-14-2022 [address] [facility] Profile [facility] Start: 10-14-2022 Urine screening for protein Urine Protein (microalbumin) [facility] Start: 10-07-2022 Annual PCP Team Chronic Disease Visit Annual PCP Team Chronic Disease Visit [facility] Start: 09-02-2022 Screening for malignant neoplasm of cervix Cervical Cancer Screening [facility] Start: 01-12-2022 Hemoglobin A1c measurement HbA1C [facility] Start: 02-08-2020 HPV Vaccine (optional start 27-45 years) HPV Vaccine (optional start 27-45 years) [facility] Start: 05-11-2019 Screening for malignant neoplasm of cervix Pap Smear [facility] Start: 09-15-2018 Pneumococcal vaccination [facility] Start: 02-03-2018 Glaucoma screening Dilated Retinal Exam [facility] Start: 02-08-2012 Hepatitis A (HAV) Vaccine (optional start 19+ years) Hepatitis A (HAV) Vaccine (optional start 19+ years) [facility] Start: 02-08-2012 Hepatitis B vaccination Hepatitis B (HBV) Vaccine (1 of 3 - 19+ 3-dose series) [facility] Start: 2011 Hepatitis C screening Hepatitis C Antibody [facility] Start: 2011 Spirometry Spirometry [facility] Start: 2003 Diabetic foot examination Diabetic Foot Exam [facility] Start: 1993 Glaucoma screening Eye Exam [facility] Start: 1993 Cyanocobalamin vitamin b-12 Vitamin B12 [facility] Start: 1993 Diabetic foot examination Foot Exam [facility] Alanine aminotransfe rase [Enzymatic activity/volume] in Serum or Plasma [facility] Albumin [Mass/volume ] in Serum or Plasma [facility] Alkaline phosphatase [Enzymatic activity/volume] in Serum or Plasma [facility] Anion gap in Serum o r Plasma [facility] Bilirubin, total measurement [facility] BUN/Creatinine ratio [facility] Calcium [Mass/volume ] in Serum or Plasma [facility] Carbon dioxide, tota l [Moles/volume] in Central venous blood [facility] Clostridioides diffi cile DNA [Presence] in Unspecified specimen by SAE with probe detection [facility] Creatinine [Mass/vol ume] in Serum or Plasma [facility] Elastase.pancreatic [Presence] in Stool [facility] EDMUND DIABETES - CHEC [place] YOUR BLOOD SUGAR EDMUND DIABETES - CHECKING YOUR BLOOD SUGAR EDMUND Routine Type 2 diabetes mellitus without complication, without long-term current use of insulin ([facility]) 11/17/2024 1:12 PM EST [facility] EDMUND DIABETES - TYPE 2 EDMUND DIAB ETES - TYPE 2 EDMUND Routine Type 2 diabetes mellitus without complication, without long-term current use of insulin ([facility]) 11/17/2024 1:12 PM EST [facility] Work Phone: Erythrocyte mean corpuscular volume determination [facility] Glucose [Mass/volume ] in Serum or Plasma [facility] Hematocrit [Volume Fraction] of Blood [facility] Hemoglobin [Mass/vol ume] in Blood [facility] INR in Blood by Coagulation assay [facility] Leukocytes [#/volume ] in Blood [facility] Mean corpuscular hemoglobin concentration determination [facility] Mean corpuscular hemoglobin determination [facility] Measurement of renal function [facility] Neutrophil count [facility] Neutrophil percent differential count [facility] Nucleic acid assay [facility] Ova OR parasites identification [facility] Patient Education ED Dysfunction al Uterine Bleeding [facility] Work Phone: Patient referral [facility] Work Phone: Platelets [#/volume] in Blood [facility] Potassium measurement [facility] Procedure [facility] Procedure [facility] Red blood cell count [facility] Red cell distributio n width determination [facility] Serum chloride measurement [facility] Sodium measurement [facility] Total protein measurement [facility] Urea nitrogen [Mass/volume] in Serum or Plasma [facility] US Abdomen limited [facility] Immunizations Immunization Date Immunization Notes Care Provider [facility] 11-15-2024 measles, mumps and rubella virus vaccine Adelfo Nice MD Work Phone: [facility] 11-15-2024 Hemoglobin A1C Nedra Hurtado MD Work Phone: [facility] 10-01-2018 influenza virus vaccine, unspecified formulation Marlo Maciel WINCH RUNNER.ELECTRONIC DATA INTERCHANGE SPECIALIST Work Phone: [facility] 09-15-2017 pneumococcal polysaccharide vaccine, 23 valent Nedra Hurtado MD Work Phone: [facility] 07-18-2016 tetanus toxoid, redu clara diphtheria toxoid, and acellular pertussis vaccine, adsorbed Dr. Becky Sotelo Work Phone: [facility] Work Phone: 01-01-2014 measles, mumps and rubella virus vaccine Dr. Becky Sotelo Work Phone: [facility] 10-28-2013 tetanus toxoid, redu clara diphtheria toxoid, and acellular pertussis vaccine, adsorbed Marlo Maciel WINCH RUNNER.ELECTRONIC DATA INTERCHANGE SPECIALIST Work Phone: [facility] 03-18-2013 tetanus toxoid, redu clara diphtheria toxoid, and acellular pertussis vaccine, adsorbed Marlo Maciel WINCH RUNNER.ELECTRONIC DATA INTERCHANGE SPECIALIST Work Phone: [facility] Payers Date Payer Category Payer Unknown 0 2024 Self-pay [id number] 2024 Medicaid (Managed Care) [place] [place] [id number] 2024 Medicaid [id number] 2022 Medicaid [employer] [id number] 2022-Present [phone] [address] [place] [address] Medicaid .[id number] 1993 Unknown [id number] 2.16.840.1.661710.3.579.2 1993 Unknown [id number] 2.16.840.1.131918.3.579.2. 1993 Unknown [id number] 2.16.840.1.970652.3.579.2 1993 Unknown [id number] 2.16.840.1.169468.3.579.2 1993 Unknown [id number] 2.16.840.1.501261.3.579.2 1993 Unknown [id number] 2.16.840.1.954866.3.579.2 1993 Unknown [id number] 2.16840.1.104517.3.579.2 1993 Unknown [id number] 2.16.840.1.349954.3.579.2 1993 Unknown [id number] 2.16.840.1.839177.3.579.2. 278 1993 Unknown [id number] 2.16840.1.391679.3.579.2. 1993 Unknown [id number] 2.16.840.1.780645.3.579.2 1993 Unknown [id number] 2.16.840.1.083715.3.579.2. 1993 Unknown [id number] 2.16.840.1.808781.3.579.2 1993 Unknown [id number] 2.16.840.1.643020.3.579.2. 1993 Unknown [id number] 2.16.840.1.330177.3.579.2. 732 1993 Unknown [id number] 2.16.840.1.129284.3.579.2. 732 Medicaid [id number] Private Health Insurance [id number] Unknown Unknown [id number] 2.16.840.1.064972.3.579.2. 462 Unknown [id number] 2.16.840.1.766488.3.579.2. 462 Unknown [id number] 2..840.1.615805.3.579.2. 462 Unknown [id number] 2.840.1.453140.3.579.2. 462 Unknown [id number] 2..840.1.898712.3.579.2. 462 Unknown [id number] 2.840.1.999702.3.579.2. 462 Unknown [id number] 2.840.1.423579.3.579.2. 462 Unknown [id number] 2..840.1.863421.3.579.2. 462 Unknown [id number] 2.16.840.1.386839.3.579.2. 462 Unknown [id number] 2.16.840.1.742807.3.579.2. 462 Unknown [id number] 2.16840.1.270172.3.579.2. 462 Unknown [id number] 2.16.840.1.884424.3.579.2. 462 Unknown [id number] 2.16.840.1.174148.3.579.2. 462 Unknown [id number] 2.16.840.1.471169.3.579.2. 462 Unknown [id number] 2.16.840.1.249408.3.579.2. 462 Unknown [id number] 2.16840.1.051474.3.579.2. 462 Unknown [id number] 2.16.840.1.224656.3.579.2. 462 Unknown [id number] 2.16.840.1.924733.3.579.2. 462 Unknown [id number] 2.16.840.1.051773.3.579.2. 462 Unknown [id number] 2.16.840.1.738549.3.579.2. 462 Unknown [id number] 2.16.840.1.329807.3.579.2. 462 Unknown [id number] 2.16.840.1.083462.3.579.2. 462 Unknown [id number] 2.16.840.1.607009.3.579.2. 462 Unknown [id number] 2.16.840.1.976603.3.579.2. 462 Unknown [id number] 2.16.840.1.067620.3.579.2. 462 Unknown [id number] 2.16.840.1.948979.3.579.2. 462 Social History Date Type Detail Facility Start: 02-10-2022 [facility] Start: 1995 Sex Assigned At Female [facility] Work Phone: Start: 09-07-2011 End: 04-23-2025 Tobacco smoking status [place] Never smoked tobacco [facility] Start: 09-07-2011 Tobacco use and exposure Smokeless tobacco non-user [facility] Start: 08-31-2021 Alcohol intake Current drinke r of alcohol (finding) [facility] Start: 08-22-2021 End: 12-24-2024 History of Social function [facility] Start: 08-22-2021 End: 12-24-2024 Social connection and isolation [facility] How often do you att end cheondoism or confucianist services? Patient declined [facility] Do you belong to any clubs or organizations such as cheondoism groups, unions, fraternal or athletic groups, or school groups? No [facility] Are you now , , , , never or living with a partner? Living with partner [facility] How often to you hav e a drink containing alcohol? 2-4 times a month [facility] How many standard drinks containing alcohol do you have on a typical day? 3 or 4 [facility] How often do you hav e 6 or more drinks on 1 occasion? Less than monthly [facility] How hard is it for y ou to pay for the very basics like food, housing, medical care, and heating Very hard [facility] Do you feel stress - tense, restless, nervous, or anxious, or unable to sleep at night because your mind is troubled all the time - these days [OSQ] Very much [facility] (I/We) worried desiree er (my/our) food would run out before (I/we) got money to buy more. Sometimes true [facility] In the past 12 month s, was there a time when you were not able to pay the mortgage or rent on time? Yes [facility] Start: 06-15-2020 End: 12-24-2024 Education 21 [facility] Start: 05-27-2013 Alcohol Comment occasionaly, N OT WHILE [facility] Start: 06-15-2020 Gender identity Identifies as female gender (finding) [facility] Start: 06-15-2020 Sexual orientation Bisexual (finding ) [facility] Start: 1995 Sex assigned [facility] Start: 11-14-2024 Sex Female (finding) [facility] NEGATED: Highlighted row Not [facility] Medical Equipment Procedure Code Equipment Code Equipment Origin al Text Equipment Identifier Dates Test blood sugar (s) 3 times daily. Dx: Type 2 DM - Controlled E11.9 Insulin: No. Elevated sugars and fluctuating sugars. [id number] Start: 11-16-2016 Test blood sugar (s) 1 times daily. Dx: Type 2 DM - Controlled E11.9 Insulin: No [id number] Start: 10-08-2021 Test blood sugar (s) 1 times daily. Dx: Type 2 DM - Controlled E11.9 Insulin: No [id number] Start: 10-08-2021 1 Strip 7 times daily as instructed. Use these test strips to test blood sugar AM fasting, premeal, 1hr postmeal, and before bedtime daily. [id number] Start: 11-17-2024 For use with ins ulin pens [id number] Start: 11-17-2024 1 Each 4 times d aily (before meals and at bedtime). Use these lancets to test your blood sugar fasting in the morning, before meals, 1hr after meals, and at bedtime [id number] Start: 11-17-2024 End: 11-17-2025 Clinical Notes 01-08-2021 to 06-13-2025 Note Date & Type Note Facility 06-13-[address] [facility] 05-09-2025 Radiology Diagnostic study note [facility] Imaging Services [address] [place], [place] [address] Abdomen Limited MR#: [id number] Acct: [id number] Name: BERNADETTE FAUST Rep #: [id number] : 1995 F 30 From: Bucky Summers MD PCP: Dr. Radha Pascual MD Status: REG CLI Study:Abdomen Limited Date of Exam: 04/29 11/23 Exam# [id number] Ordering Dr: La Basurto PROCEDURE: ABDOMEN LIMITED [...] Limited IMPRESSION: Essentially unremarkable examination. Reading [facility]: [facility] CC: CATHODE WASHERPamela Basurto; Dr. Radha Pascual MD ~ [employer] Section: Signed [facility] 04-23-2025 Evaluation note Diagnosis Onset Date Resolution Bloating acute April 23 9:23am Diarrhea acute April 23 9:23am Breakthrough bleeding with IUD acute June 13 10:17am Sterilization acute May 10:17am Acute upper respiratory infection acute June 20 8:29am Diabetes acute June 20, 8:29am [facility] Work Phone: 1(726) 913-899304-29-2025 Evaluation note* Diagnosis Onset Date Resolution Status Admit Date Encounter for IUD insertion acute February 25, 2025 8:33am Anemia acute March 07, 2025 8:32am Diabetes acute March 07, 2025 8:32am Multiple sclerosis acute February h2024 8:32am Generalized anxiety disorder noneact hollis March 07, 2025 8:32am [facility] Work Phone: 1(605) 141-169304-29-2025 Evaluation note* Diagnosis Onset Date Resolution Status Admit Date Encounter for IUD insertion acute February 25, 2025 8:33am Anemia acute March 07, 2025 8:32am Diabetes acute March 07, 2025 8:32am Multiple sclerosis acute February 8:32am Generalized anxiety disorder noneact hollis March 07, 2025 8:32am Diabetes acute March 28, 2025 8:18am Bloating acute March 31, 2025 12:45pm [employer] [facility] Work Phone: 1(191) 806-835204-29-2025 Evaluation note* Diagnosis Onset Date Resolution Status [...] 23 9:23am Diarrhea acute April 23 9:23am [facility] Work Phone: 1(658) 781-645304-29-2025 Evaluation note* Diagnosis Onset Date Resolution Status [...] 13, 2025 10:17am Sterilization acute May 10:17am [facility] Work Phone: 1(548) 781-634002-26-2025 History of Present illness Narrative* Wendy Garza PA-C - 12/25/2024 9:42 AM EST [facility] Trauma/ Emergency General Surgery Clinic Staff Note BERNADETTE Faust [id number] CC: f/u for fistulous connection between percutaneous [...] [facility]ers Trauma and Emergency General Surgery LAZARO [facility] Trauma [phone] [facility] EGS [id number]/ [id number] [facility] Trauma/EGS [phone] documented in this [id number] Telephone encounter Note* Telephone Encounter - Kayla [...] and particulates Sutures. In [place] now. States [place] refusing to treat drain as not placed. Background: See above Assessment: Advised to go to the ED or drug mart for dressing. Patient advised to call Earlier in day in future. Clinics close at 5 pm. Message to [facility] [place] Recommendation: [id number] Miscellaneous Notes* Telephone Encounter - Kayla Giron [...] daily foul odor and particulates Sutures. In [place] now. [place] refusing to treat drain as not placed. Background: See above Assessment: Advised to go to the ED or drug mart for dressing. Patient advised to call Earlier in day in future. Clinics close at 5 pm. Message to [facility] [place] Recommendation: documented in this [id number] History of Present illness Narrative* Demetra Tellez MSW, LSW - 11/29/2024 9:24 AM EST 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 SW LVM for Pt informing Pt of the instructions on how to request her medical records through [employer]. SW provided SW contact information and encouraged Pt to reach out with any questions/concerns. Plan: SW will remain available. ASHLY Church, LATONYA Outpatient Configuration Developer [phone] documented in this [id number] History of Present illness Narrative* Demetra Tellez MSW, LSW - 11/28/2024 2:45 PM EST FACTORY LAY OUT ENGINEER Risk Score for Admission: 72% SW received [...] SS card and her certificate is in [place]. 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 SW encouraged Pt to continue waiting for her social security card, and then she will be able to get her certificate as well. Pt was agreeable. Pt reported she currently has an open case with DCFS in [place]. Pt shared the workers are accusingher of drug abuse because she tested positive for opiates after her section. 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 Pt reported she had a recent visitat [...] receives an update. ASHLY Church LSW Outpatient Configuration Developer [phone] documented in this [id number] Hospital Discharge instructions* Discharge Instructions* Jyoti Brewer MD - 11/27/2024 6:22 PM EST Abdominal Pain Instructions: Return to the ED if the stomach pain worsens, is still there in 12-24 hours, if it in case if fever or chills, or if you can't keep down liquids. * Attachments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 Severity Rating Scale with Patient?: Yes 1) Wish to be : No 2) Current suicidal thoughts: No 6) C-SSRS Suicidal Behavior: No Risk of Suicide: Negative Screen Did patient score moderate or high risk on the C-SSRS?: No SAFE-T PSYCHIATRIC HISTORY: Psychiatric diagnoses: bipolar disorder (self reported), ADHD, anxiety Outpatient psychiatrist/counselor: Leonila Junior, [place] (self reported) Inpatient psychiatric admissions (when/why?): none [...] current occupational status: employed 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 EKG: No results found for: "QTC" ASSESSMENT: Bernadette Faust is a 29-year-old White [...] provider. She follows with Dr. Morales in [place], [place], though it is unclear why her [...] will follow up with Dr. Morales in [place], and will schedule the appointment independently. Recommendations were communicated to Dr. Muhammad and Dr. Rubin via secure chat. We will sign off, please page with any new concerns. The patient was seen and discussed with attending psychiatrist. Iveth Hall MD National Opelint Analyst, PGY-2 If patient is admitted to the hospital and psychiatric consultation is necessary, please place order in [employer] for "IP Psychiatry Adult Consult" and page: 8:00 AM - 5:00 PM: [phone] 5:00 PM - 8:00 AM, weekends or holidays: [phone] Teaching Physician Note During my evaluation of [...] from the original note were not included. FLASH RANGING CREWMEMBER CONSULT NOTE 11/15/24 6:53 AM PGY-4 S: [...] Encourage SCDs and ambulation Juany Muhammad MD FACTORY LAY OUT ENGINEER PGY-4 Cosigned by Marco Stovall MD at [...] MD Maternal Medicine, Complex Family Planning Pager: [phone] * Dana Hall, - 11/15/2024 2:12 AM ESTAssociated Order(s): IP EMERGENCY GENERAL SURGERY CONSULT Images from the original note were not included. [facility] Department of Surgery EMERGENCY GENERAL SURGERY CONSULT NOTE BERNADETTE Faust [id number] Reason for Consultation: Abdominal abscess HPI BERNADETTE [...] Warm, no lesions Neuro: AOx3 LABS 15.6 \\ 10.2 / 360 / 30.7 \\ CBC: 11/15/2024: 12:52 AM 139 101 9 / \\ 211 3.9 27 0.67 BMP: 11/15/2024: 12:52 [...] DO General Surgery Department Green Surgery Pager [phone] Purple (MIS, Gen, Peds) Surgery Pager [phone] Blue Surgery (Surgical Oncology, Breast) Pager [phone] Vascular Surgery Pager - [phone] Acute Care Surgery Pager [phone] ACS Consults [id number] ACS Floor Patients Cosigned by Ronda Wing [...] bot- osei- baby still in NICU in [facility]). She was worked up at an OSH for RUQ abdominal pain and found to have a RUQ fluid collection con cering for an intra-abdominal abscess. She was transferred to [facility] for possible IR drainage ofthis collection. [...] -High -decision regarding hospitalization documented in this [id number] Plan of care note* Care Plan Note [...] answered. Pt verbalizes understanding of discharge disposition. [id number] Progress note* Progress Notes - NoteWriter - Jeff Renteria RN - 11/17/2024 3:11 PM EST Educated pt on a diabetic diet including amounts needed from each food group. Provided pt with pamphlets from [place] [employer]. Pt verbalized an understanding. [id number] Hospital Note* Hospital Course - Magda Hanks [...] BID H/o Bipolar--Currently appropriate mood on lamictal, shelter consider psych input Recent Pos UTox--for SW consult [employer] Work Phone: 1(865) 140-525801-19-2025 Plan of care note* Care Plan Note [...] adult patient will be met Outcome: Progressing [id number] NoteAPU Progress Note 11/17/2024 6:51 AM S: [...] follow up . 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 I spent approximately 18 minutes of floor unit time on this patient visit. Genesis Samuels MD / [id number] [facility] Attending/ p [phone]01-18-2025 Plan of care note* Care Plan Note [...] POC. Discussed with Dr. Samuels this AM. [id number] NoteMFM Attending Antepartum Progress Note 11/16/2024, 8:45 [...] Comment: Follow Protocol Notified BENTLEY POLLOCK MD 11/15/24 2006 83 11/15/24 1620 137 11/15/24 [...] this patient visit. Genesis Samuels MD / [id number] [facility] Attending/ p [phone]01-18-2025 Hospital Discharge instructions* Discharge Instructions* Annie Parker, MICHAEL-ELECTRONIC DATA INTERCHANGE SPECIALIST - 11/16/2024 8:45 AM EST Wound Care [...] IMMEDIATELY. Alternatively, you may come into the [facility] Emergency Department IMMEDIATELY for an emergent evaluation by the Trauma resident. Drain Care: - Keep the drain skin area clean by using a warm washcloth. - Record your drain output daily using attached table. * Attachments The following attachments cannot be sent through Care Everywhere. * How to Keep Track of Your Drainage (Paraguayan) * How to Care for an Abdominal Drainage Catheter (Paraguayan) documented in this [id number] NoteAPU Progress Note 11/16/2024 6:37 AM S: [...] MAA Obstetrics AND Gynecology - PGY 1[facility]01-17-2025 Plan of care note* Care Plan Note [...] 1151 by Jeff Renteria RN Outcome: Progressing [id number] NotePOST-PROCEDURE NOTE Procedure: CT guided drained placement in intraabdominal fluid collection Pre-operative Diagnosis: Intraabdominal fluid collection adjacent to suspected colonic perforation Post-operative Diagnosis: same Attending: Chica Andres MD Unit Aide Tech: Becky Zayas MD A TIME OUT was [...] for full procedural details. Becky Zayas MD [facility] Surgery Postoperative evaluation and management note* Post-Procedure Note - Becky Zayas MD - 11/15/2024 5:34 PM EST POST-PROCEDURE NOTE Procedure: CT guided drained placement in intraabdominal fluid collection Pre-operative Diagnosis: Intraabdominal fluid collection adjacent to suspected colonic perforation Post-operative Diagnosis: same Attending: Chica Andres MD Unit Aide Tech: Becky Zayas MD A TIME OUT was [...] Andres MD at 11/18/2024 9:48 AM EST [id number] History and physical note* Becky Zayas MD [...] Directives (Living will, health care power of agile qa tester): none Patient Recent Code Status: Full Code Code Status For This Procedure: Full Code Becky Zayas MD Radiology [employer] Work Phone: 1(169) 774-380101-17-2025 History and physical note* Becky Zayas MD [...] Directives (Living will, health care power of agile qa tester): none Patient Recent Code Status: Full Code [...] for acutely worsening RUQ pain transferred from [facility]. 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 Nice. documented in this [id number] NoteMODIFIED HISTORY AND PHYSICAL: HISTORY: Procedure: CT [...] Directives (Living will, health care power of agile qa tester): none Patient Recent Code Status: Full Code Code Status For This Procedure: Full Code Becky Zayas MD [facility] Consult note* Genesis Ayala LSW - 11/15/2024 1:20 PM ESTAssociated Order(s): SOCIAL WORK SERVICE REQUEST SW consult received for: Substance abuse resources/interventions SW attempted to meet with pt. Unable to meet as pt was out for CT scan. Will follow up later today. Addendum: 3:20pm SW attempted to meet with pt again. Pt was going off the floor for a procedure. Genesis LIMON, CERTIFIED NEURODIAGNOSTIC TECHNOLOGIST Social Work [phone] [id number] Progress note* Progress Notes - NoteWriter - Jeff Renteria RN - 11/15/2024 12:25 PM EST Pt down to CT. S/P general surgery attending assessed pt. [id number] Plan of care note* Care Plan Note [...] adult patient will be met Outcome: Progressing [id number] Consult note* Tania Nowak RD - 11/15/2024 10:58 AM ESTAssociated Order(s): NUTRITION NEW CONSULT Images from the original note were not included. Date: 11/15/24 LOS: 0 days Room: [place] [address] Brief Nutrition Education Note Reason for RD visit: Consult - "Diabetic diet" Admitting Diagnosis: No admission diagnoses are documented [...] Comment: Follow Protocol Notified RN PHILL MALIK Allergies Allergen Reactions Verapamil Anaphylactic Shock Botulinum [...] outpatient education - Diabetes Self Management Program: "[id number]" in discharge orders. Patient will receive a call from community health educator regarding scheduling Tania Nowak RD, LD, [facility] Personal Pager: [phone] On-Call Nutrition Pager: [phone] Time spent on patient care: 15 minutes Dietitian vs DietaryTech: Dietitian and Long Chain Beamer [id number] NoteDate: 11/15/24 LOS: 0 days Room: [place] [address] Brief Nutrition Education Note Reason for RD visit: Consult - "Diabetic diet" Admitting Diagnosis: No admission diagnoses are documented [...] at ), was worked up at OSH ([facility]) for RUQ abd pain and found to [...] outpatient education - Diabetes Self Management Program: "[id number]" in discharge orders. Patient will receive a call from community health educator regarding scheduling Tania Nowak RD, LD, [facility] Personal Pager: [phone] On-Call Nutrition Pager: [phone] Time spent on patient care: 15 minutes Dietitian vs DietaryTech: Dietitian and Dietary TechThe [facility] CenterMXP4 System 11-15-2024 Consult note* Cesar Bueno DO - 11/15/2024 8:53 AM ESTAssociated Order(s): IP PSYCHIATRIC ADULT CONSULT Images from the original note were not included. PSYCHIATRY CONSULT LIAISON NOTE PROVIDER REQUESTING CONSULT: Adelfo Nice MD Inpatient Floor: [facility] 08 - [id number] Reason for Consult: "hx Bipolar, reported medications and chart meds discrepancy" (medication reconciliation) IDENTIFICATION: BERNADETTE Faust is a 29 year old White female HISTORY OF PRESENT ILLNESS Hospital Course: A 29-year-old at postoperative day 9 following an emergent C- section at 34 weeks for placental abruption and preeclampsia, presents with acutely worsening right upper quadrant pain after transfer from [facility]. Chart reviewed, and from a medical perspective, [...] The patient follows with a psychiatrist in [place], [place], who prescribes lamotrigine 200 mg daily [...] patient states she splits her time between [place] and [place], does not currently have a psychiatric provider in [place], but has been attempting to establish care there. Her prescriptions are written and filled in [place]. She denies suicidal ideation, homicidal ideation, or auditory/visual hallucinations. She reports nodifficulties with sleep, appetite, or medication side effects. PRN's Received: - none for agitation or anxiety PER CHART REVIEW [facility] 11/06/24 - 11/09/24 The patient was hospitalized at [facility] from November 06 to November 09, 2024, [...] (Ir) 5 Mg Tablet 28.00 7 Dec [id number] Banda ([id number]) 0 PSYCHIATRIC REVIEW OF SYSTEMS: As per HPI Suicide Assessment Tool C-SSRS [place]-Suicide Severity Rating Scale Able to complete [place]-Suicide Severity Rating Scale with Patient?: Yes 1) Wish to be : No 2) Current suicidal thoughts: No 6) C-SSRS Suicidal Behavior: No Risk of Suicide: Negative Screen Did patient score moderate or high risk on the C-SSRS?: No SAFE-T PSYCHIATRIC HISTORY: Psychiatric diagnoses: bipolar disorder (self reported), ADHD, anxiety Outpatient psychiatrist/counselor: Dr Morales [place], [place] (self reported) Inpatient psychiatric admissions (when/why?): none [...] current occupational status: employed 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 EKG: No results found for: "QTC" ASSESSMENT: Bernadette Faust is a 29-year-old White [...] provider. She follows with Dr. Morales in [place], [place], though it is unclear why her [...] will follow up with Dr. Morales in [place], [place], and will schedule the appointment independently. Recommendations were communicated to Dr. Muhammad and Dr. Rubin via secure chat. We will sign off, please page with any new concerns. The patient was seen and discussed with attending psychiatrist. Iveth Hall MD National Opelint Analyst, PGY-2 If patient is admitted to the hospital and psychiatric consultation is necessary, please place order in EPIC for "IP Psychiatry Adult Consult" and page: 8:00 AM - 5:00 PM: [phone] 5:00 PM - 8:00 AM, weekends or holidays: [phone] Teaching Physician Note During my evaluation of [...] multidisciplinary discussions. Cesar Bueno DO Attending Psychiatrist [employer] Work Phone: 1(273) 774-603301-17-2025 Consult note* Juany Muhammad MD - 11/15/2024 6:52 AM ESTAssociated Order(s): IP OB HIGH RISK CONSULT Images from the original note were not included. FLASH RANGING CREWMEMBER CONSULT NOTE 11/15/24 6:53 AM PGY-4 S: [...] Encourage SCDs and ambulation Juany Muhammad MD FACTORY LAY OUT ENGINEER PGY-4 Cosigned by Marco Stovall MD at [...] MD Maternal Medicine, Complex Family Planning Pager: [phone] [id number] Plan of care note* Care Plan Note [...] Progressing Plan for monitoring in High risk. [id number] Consult note* Dana Hall DO - 11/15/2024 2:12 AM EST Associated Order(s): IP EMERGENCY GENERAL SURGERY CONSULT Images from the original note were not included. [facility] Department of Surgery EMERGENCY GENERAL SURGERY CONSULT NOTE BERNADETTE Faust [id number] Reason for Consultation: Abdominal abscess HPI BERNADETET Faust is a 29 year old year [...] Warm, no lesions Neuro: AOx3 LABS 15.6 \\ 10.2 / 360 / 30.7 \\ CBC: 11/15/2024: 12:52 AM 139 101 9 / \\ 211 3.9 27 0.67 BMP: 11/15/2024: 12:52 [...] DO General Surgery Department Green Surgery Pager [phone] Purple (MIS, Gen, Peds) Surgery Pager [phone] Blue Surgery (Surgical Oncology, Breast) Pager [phone] Vascular Surgery Pager - [phone] Acute Care Surgery Pager [phone] ACS Consults [phone] ACS Floor Patients Cosigned by Ronda Wing [...] bot- osei- baby still in NICU in [facility]). She was worked up at an OSH for RUQ abdominal pain and found to have a RUQ fluid collection con cering for an intra-abdominal abscess. She was transferred to [facility] for possible IR drainage ofthis collection. [...] scan) 3. Risk -High -decision regarding hospitalization [facility] Work Phone: 1(360) 669-384401-17-2025 History and physical note* Adelfo Nice MD [...] for acutely worsening RUQ pain transferred from [facility]. 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 Nice. [id number] NoteLABOR AND DELIVERY HISTORY AND PHYSICAL NOTE [...] for acutely worsening RUQ pain transferred from [facility]. RUQ pain has been present since [...] TIA 12/2016 CTH/CTA/MRI head unremarkable AC regimen: shelter baby ASA has had MS work-up due [...] 1u PRBC DILATION (more content not included)...The [employer] [id number] Note [facility]07-09-2024 Telephone encounter Note* Telephone Encounter - Rukhsana Dyson MA - 05/07/2024 11:44 AM EDT Started Care Gap encounter. Rukhsana Dyson MA [facility]07-09-2024 Miscellaneous Notes* Telephone Encounter - Rukhsana [...] minutes. Marlo Loza APRN.CNP documented in [facility] encounterMer[facility] History of Present illness Narrative* Rukhsana [...] 07, 2024 11:29 AM documented in this encounterMer[facility]-2024 Telephone encounter Note * Telephone Encounter - Marlo Loza APRN.CNP - 05/07/2024 10:31 AM EDT STAMP Please reach out to patient for overdue appointment for chronic disease management with myself. If he/she is no longer following with Dr. Sotelo, please remove name from PCP field. Due for physical, would need 40 minutes. Marlo Loza APRN.CNP [facility]12-16-2021 NoteHNO ID: [id number] Author: Edith Dhaliwal, RT(R) Service: ? Author Type: Warehouse Worker 2Nd Shift Type: Progress Notes Filed: 10/14/2021 11:43 AM [...] Faust DATE: October 14, 2021 TIME: 11:42 [facility]12-09-2021 NoteHNO ID: [id number] Author: Kateryna Farah PA-C Service: ? Author Type: Physician Unit Aide Tech Type: Progress Notes Filed: 10/07/2021 2:53 PM [...] AQ) 55 mcg nasal inhaler Use 1 Cos Cob in the nose as needed. - gabapentin (NEURONTIN) 800 mg tablet Take 800 mg by mouth. takes a sneeded - promet (more content not included)...[facility]11-09-2021 Note HNO ID: [id number] Author: Jenn Lopez APRN.ELECTRONIC DATA INTERCHANGE SPECIALIST Service: ? Author Type: Nurse Practitioner Type: [...] living in a house that was having sewer maintenance supervisor back-ups. Refers that there was constant raw [...] Stroke (HCC) - Type 2 diabetes mellitus ([facility]) - Unspecified asthma(493.90) EXERCISE INDUCED PAST SURGICAL [...] AQ) 55 mcg nasal inhaler Use 1 Cos Cob in the nose as needed. - gabapentin [...] DM - Controlled E (more content not included)...[facility]11-02-2021 NoteHNO ID: [id number] Author: John Guillen PA-C Service: ? Author Type: Physician Unit Aide Tech Type: Progress Notes Filed: 08/31/2021 6:21 PM [...] for 2 weeks, occasional cough, joint pain. [place] like it was worse when the furnace. While moved out of the house symptoms were significantly improved and HAs were improved. Denies fever/chills, Fiance would stay in the house when in [place], and has not been in the house [...] (HCC) 10/01/2018 - Breast cancer ([facility]) - Chronic appendicitis 2005 S/P lap appendectomy. [...] AQ) 55 mcg nasal inhaler Use 1 Cos Cob in the nose as needed. - hydrOXYzine pamoate (VISTARIL) 25 mg capsule Take 1 capsule by mouth three times daily as needed for Anxiety. No current facility-administered medicatio (more content not included)... [facility]06-10-2021 NotePatient Outreach (FAMPWS) BERNADETTE FAUST ([id number]) 1995 [facility] Date Time Provider Department 04/08/21 RENY HATFIELD) FAMPWS During your visit today, we recorded the following information about you: Reny Hatfield Ma 04/08/2021 10:58 AM Signed POPULATION HEALTH NAVIGATION OUTREACH Action/ Pt was left a vm to return call and schedule a follow up appt with pcp or crnp. Contact made with patient or family member? NO Pt identified by name and : YES Outreach Outcome/Action Unable to reach patient: Left message Reason for Outreach Care Gap or Scheduling/Wellness visits Payer: Payor: LIMITED BENEFITS PLAN / Plan: [employer] / Product Type: Other / Care [...] 500 mg by mouth every 8 * KYAVYVEGWE-XSXAOFODLNLEH-UBUN* Take 1 tablet by mouth every * ALBUTEROL SULFATE 2.5 MG/3 ML* Use 2.5 mg via nebulizer ever* CETIRIZINE 10 MG TABLET Take 10 mg by mouth once sherrie* MOMETASONE 220 MCG/ACTUATION(* Inhale 1 Puff as instructed o* SUMATRIPTAN 50 MG TABLET Take 50 mg by mouth as needed* TRIAMCINOLONE ACETONIDE 55 MC* Use 1 Cos Cob in the nose as ne* GABAPENTIN 800 [...] Encounter Status:Closed by RENY HATFIELD MA on 04/08/21[facility]06-10-2021 NoteHNO ID: [id number] Author: Reny Hatfield Ma Service: ? Author Type: ? Type: Progress Notes Filed: 04/08/2021 10:58 AM Note Text: POPULATION HEALTH NAVIGATION OUTREACH Action/FYI Pt was left a vm to return call and schedule a follow up appt with pcp or crnp. Contact made with patient or family member? NO Pt identified by name and : YES Outreach Outcome/Action Unable to reach patient: Left message Reason for Outreach Care Gap or Scheduling/Wellness visits Payer: Payor: LIMITED BENEFITS PLAN / Plan: [employer] / Product Type: Other / Care [...] Reny Hatfield Ma April 08, 2021 10:57 [facility]05-03-2021 NotePatient Outreach (FAMPWS) BERNADETTE FAUST ([id number]) 1995 F [facility] Date Time Provider Department 03/01/21 RUKHSANA DYSON) [...] f/u scheduled. Pt has been sent a [employer] message notifying her that she needs to schedule a follow up visit with PCP or another Provider and complete labs. Contact made with patient or family member? YES Pt identified by name and : YES Outreach Outcome/Action [email or web address] message sent Reason for Outreach Care Gap or Scheduling/Wellness visits Payer: Payor: LIMITED BENEFITS PLAN / Plan: [employer] / Product Type: Other / Care [...] Assessed Reason for Visit: PHMA/Care Gap Outreach [5353] Cmt: APPT Prescriptions as of 03/01/2021 Sig: [...] 500 mg by mouth every 8 * RZIFTKGRCH-JLOKBOXKNXJNN-XKHA* Take 1 tablet by mouth every * ALBUTEROL SULFATE 2.5 MG/3 ML* Use 2.5 mg via nebulizer ever* CETIRIZINE 10 MG TABLET Take 10 mg by mouth once sherrie* MOMETASONE 220 MCG/ACTUATION(* Inhale 1 Puff as instructed o* SUMATRIPTAN 50 MG TABLET Take 50 mg by mouth as needed* TRIAMCINOLONE ACETONIDE 55 MC* Use 1 Cos Cob in the nose as ne* GABAPENTIN 800 [...] testing [Z01.89] 10/11/2018 Br (more content not included)...[facility]05-03-2021 NoteHNO ID: [id number] Author: Rukhsana Dyson MA Service: ? Author [...] f/u scheduled. Pt has been sent a [employer] message notifying her that she needs to schedule a follow up visit with PCP or another Provider and complete labs. Contact made with patient or family member? YES Pt identified by name and : YES Outreach Outcome/Action MyChart message sent Reason for Outreach Care Gap or Scheduling/Wellness visits Payer: Payor: LIMITED BENEFITS PLAN / Plan: [employer] / Product Type: Other / Care Gap [...] Rukhsana Dyson MA March 01, 2021 10:56 [facility]03-18-2021 NoteHNO ID: [id number] Author: Fabiana Milton Ma Service: ? Author [...] Fabiana Milton Ma January 14, 2021 1:04 [facility]03-18-2021 NotePatient Outreach (FAMPWS) BERNADETTE FAUST ([id number]) 1995 F [facility] Date Time Provider Department 01/14/21 FABIANA MILTON) [...] Care Gap or Scheduling/Wellness visits Payer: Payor: [employer] BENEFITS PLAN / Plan: [employer] / Product Type: Other / Care [...] 500 mg by mouth every 8 * BIUBFZMNDT-IBEDIYNVSMYSM-RJTG* Take 1 tablet by mouth every * ALBUTEROL SULFATE 2.5 MG/3 ML* Use 2.5 mg via nebulizer ever* CETIRIZINE 10 MG TABLET Take 10 mg by mouth once sherrie* MOMETASONE 220 MCG/ACTUATION(* Inhale 1 Puff as instructed o* SUMATRIPTAN 50 MG TABLET Take 50 mg by mouth as needed* TRIAMCINOLONE ACETONIDE 55 MC* Use 1 Cos Cob in the nose as ne* GABAPENTIN 800 [...] testing [Z01.89] 10/11/2018 M (more content not included)...[facility]03-12-2021 NotePatient Outreach (COVAMN) BERNADETTE FAUST ([id number]) 1995 F [facility] Date Time Provider Department 01/08/21 SHADY PAYNE [...] Fully Assessed Order(s):SARS-COVID VACCINE 1ST DOSE APPT [47176FXV] Order #: [id number] FUTURE Prescriptions as of 01/08/2021 Sig: PREDNISONE [...] 500 mg by mouth every 8 * FRWCIGRKZA-GPAIFMLQLRGVQ-RMON* Take 1 tablet by mouth every * ALBUTEROL SULFATE 2.5 MG/3 ML* Use 2.5 mg via nebulizer ever* CETIRIZINE 10 MG TABLET Take 10 mg by mouth once sherrie* MOMETASONE 220 MCG/ACTUATION(* Inhale 1 Puff as instructed o* SUMATRIPTAN 50 MG TABLET Take 50 mg by mouth as needed* TRIAMCINOLONE ACETONIDE 55 MC* Use 1 Cos Cob in the nose as ne* GABAPENTIN 800 [...] Encounter Status:Closed by JAY JAY NGUYEN on 01/11/21[facility] Evaluation note* Diagnosis Onset Date Resolution Status Dysmenorrhea acute Vaginal discharge acute [facility] Work Phone: Evaluation note* Diagnosis Intraperitoneal abscess [...] this encounter [facility] note Author Elaine Jones [facility] Note Date/Time June 13, 2025 10 :54am [facility] [address] [place] [address], [address] [place] [address] OFFICE VISIT Date of Service: 06/13/25 MR#: [id number] Acct: [id number] Name: BERNADETTE FAUST Rep #: [id number] : 1995 Provider: Dr. Rajiv Jones MD Age/Sex: 30/F Location: [facility] Status: Signed Intake Vital Signs 03/31/25 13:38 04/23/25 09:49 06/13/25 10:26 06/13/25 10:34 Height 5 ft 5 in 5 ft 5 in 5 ft 5 in 5 ft 5 in Weight: 195 lb 8 oz BMI 32.5 BP 128/78 H Intake Visit Reasons: 2 M FU Chief Complaint: 2 Mo f/u Line Rider Required: No Is patient in pain?: No [...] fremanezumab-vfrm 225 mg/1.5 mL 675 mg subcut [id number] 02/10/22 06/13/25 History subcutaneous auto-injector (Ajovy) labetalol 200 mg tablet 200 mg PO BID 30 days #60 ta bs 11/09/24 06/13/25 Rx nifedipine 30 mg tablet,extended 30 mg PO BID #60 tabs 11/09/24 06/13/25 Rx release 24 hr (Procardia XL) blood-glucose sensor ([employer] G7 #12 ea 03/07/25 Rx Sensor device) [...] Rx thermo 112.5 billion cell capsule (VSL#3) blood-glucose,service or work dispatcher,cont #1 ea 05/05/25 06/13/25 Rx (Dexcom G7 Fruit And Vegetable Inspector) buspirone 5 mg tablet 5 mg PO BID 06/13/25 5 History Is last menstrual period known: Yes Last Menstrual Period: 05/26/25 Post menopausal: No Patient : No : No Control Method: Paragard [facility] Medical History Breast cancer ADD (attention deficit disorder) Multiple sclerosis Asthma Stroke Migraines Surgical History H/O knee surgery H/O dilation and curettage History of appendectomy History of lumpectomy History of tonsillectomy and adenoidectomy Family History Father Heart disease Social History number of children: 2 current occupational status: employed 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 [employer] Smoking Status: Never smoker alcohol intake: current alcohol intake frequency: holidays/special occasions only substance use type: does not use caffeine: Yes what type of physical activity do you participate in: walking frequency: 3-4 times per week seatbelt use: always do you feel safe at home: Yes 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 Work Phone: Summary Purpose Family History No Family History Records Found Relationship Condition Age at Onset Recorded Date/T jaskaran father Cardiac disease Unknown Advance Directives No Advanced Directives Records Found Advance Directive Response Recorded Date/ Time Advance Directives No November 23, 2016 1:23pm Living Will No December 20, 2 019 5:03pm Power of Classified Ad Taker No December 20, 2018 5:03pm Date Activated Date Inactivated Comments 11/15/2024 12:28 AM 11/19/2024 8:51 PM Question Answer Comments Documentation of decision pr ocess for this code status: Discussed with patient or surrogate. This is the code status chosen by the patient/surrogate. Advance Directive Response Recorded Date/ Time Do you have a Healthcare Power of Classified Ad Taker? 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) Reason for Visit Dysmenorrhea Vaginal discharge Chief Complaint Admit Date Tubal Ligation Consult February 25, 2025 8:33am NO E ORDERS YET February 25, 2025 9:4 0am VAGINAL BLEEDING February 28, 2025 3:18pm ACUTE - FU ON LABS FROM [facility] March 07 8:32am 3 WK FU March [...] 3:18pm ACUTE - FU ON LABS FROM [facility] March 07 8:32am 3 WK FU March [...] 3:18pm ACUTE - FU ON LABS FROM [facility] March 07 8:32am 3 WK FU March [...] 3:18pm ACUTE - FU ON LABS FROM [facility] March 07 8:32am 3 WK FU March [...] 3:18pm ACUTE - FU ON LABS FROM [facility] March 07 8:32am 3 WK FU March [...] 3:18pm ACUTE - FU ON LABS FROM [facility] March 07 8:32am 3 WK FU March [...] 3:18pm ACUTE - FU ON LABS FROM [facility] March 07 8:32am 3 WK FU March 28, 2025 8:18a m Colposcopy March 31, 2025 12:45 pm PERFORATED BOWEL /CSECTION STILL BLOATIN G April 23, 2025 9:23am INT ORDER April 24, 2025 11:0 9am ABD PAIN, ADD SPLEEN May 09, 2025 10: 03am 2 M FU [place] 15th, 2025 10 :17am 3 M FU June [...] section and content) DATE CREATED AUTHOR 10/08/2018 [facility] DATE CREATED AUTHOR AUTHOR'S ORGANIZ ATION 10/09/2018 [facility] DATE CREATED AUTHOR AUTHOR'S ORGANIZ ATION 01/28/2019 [facility] DATE CREATED AUTHOR AUTHOR'S ORGANIZ ATION 05/20/2019 [facility] DATE CREATED AUTHOR AUTHOR'S ORGANIZ ATION 11/21/2021 [facility] DATE CREATED AUTHOR AUTHOR'S ORGANIZ ATION 12/27/2024 [facility] DATE CREATED AUTHOR AUTHOR'S ORGANIZ ATION 09/03/2025 [facility] Goals (unrecognized section and content) Goals [...] or prosecute any alcohol or drug abuse patient.[facility] HospitalIn the event this information is protected by the Federal Confidentiality of Alcohol and Drug Abuse Patient Records regulations: The Federal rules restrict any use of the information to criminally investigate or prosecute any alcohol or drug abuse patient.[facility] Reason for Visit (unrecogniz ed section and content) Reason Comments Appointment Reason Onset Date Comments PHMA/Care Gap Outreach 05/07/2024 Reason Comments Refill Reason Comments Abdominal pain Post c/s 11/06/23 - ri ght upper side per pt an abdominal cyst Specialty Diagnoses / Procedures Referred By Julita t Referred [place] [address] [place] [address] Phone: tel: fax: [facility] [employer] [facility] [address] [place] [address] Phone: tel: Referral ID Status Reason Start Date Expiration Date Visits Re quested Visits Authorized [id number] 3 3 Reason Comments Care Coordination Reason Comments Abdominal pain Concern for perf bow l d/t drain output Reason Onset Date Comments DME wound care. 12/05/2024 Care Teams (unrecognized sec tion and content) Application Manager Relationship Specialty Start Date End Date Becky Sotelo MD [address] [place] [address] PCP - General Family Medicine 11/16/16 Application Manager Relationship Specialty Start Date End Date Becky Sotelo MD [address] [facility] [place] [address] PCP - General Family Medicine 11/16/16 Application Manager Relationship Specialty Start Date End Date Nedra Hurtado MD [address] [place] [address] Physician Trauma Surgery 11/30/24 Application Manager Relationship Specialty Start Date End Date Nedra Hurtado MD [address] [place] [address] Physician Trauma Surgery 11/30/24 Team Status: Active [...] April 23, 2025 End: April 23, 2025 Application Manager Relationship Specialty Start Date End Date Nedra Hurtado MD [address] [place] [address] [place] [address] Physician Trauma Surgery 11/30/24 Team Status: Active [...] April 24, 2025 End: April 24, 2025 Application Manager Relationship Specialty Start Date End Date Nedra Hurtado MD [address] [place] [address] Physician Trauma Surgery 11/30/24 Application Manager Relationship Specialty Start Date End Date Nedra Hurtado MD [address] [place] [address] Physician Trauma Surgery 11/30/24 Team Status: Inactive [...] April 24, 2025 End: April 24, 2025 [place] , CATHODE WASHER-C Referring Provider Active Start: April 24, 2025 End: April 24, 2025 Team Status: Inactive Member Role/Relationship Status Dates Dr. Radha Pascual MD Primary care physician Active Start: May 09, 2025 End: May 09, 2025 La Basurto CATHODE WASHER-C Attending physician Active Start: May 09, 2025 End: May 09, 2025 La Basurto CATHODE WASHER-C Referring Provider Active Start: May 09, 2025 [...] June 20, 2025 Humberto ENGLAND PA Attending physician Active S tart: June [...] Mac, BENTLEY) 0420 (Given - Provider: Kalyani Mac, BENTLEY)1020 (Given - Provider: Darling Keith RN)1649 (Given - Provider: Darling Keith RN)2248 (Given - Provider: Bozena Zamora, BENTLEY) [...] RN)2108 (Given - Provider: Kalyani Mac RN) 1009 (Given - Provider: Darling Keith, BENTLEY)2100 (Given - Provider: Bozena Zamora, BENTLEY) 0921 (Given - Provider: Darling Keith, BENTLEY) docusate sodium (COLACE) capsule 100 mg, Oral, 2 TIMES DAILY, First dose on 11/16/24 at 1230, Until Discontinued 0932 (Given - Provider: Jeff Renteria RN)2108 (Given - Provider: Kalyani Mac RN) 1009 (Given - Provider: Darling Ketih RN)2100 (Given - Provider: Bozena Zamora RN) 0921 (Given - Provider: Darling Keith RN) enoxaparin (LOVENOX) 40 MG/0.4ML injection 40 mg 40 mg, Subcutaneous, DAILY, First dose on Mon11/16/24 at 0900, Until Discontinued 0933 (Given - Provider: Jeff Renteria RN) 1009 [...] Kalyani Mac RN)1020 (Given - Provider: Darling Keith RN)1650 (Given - Provider: Darling Keith RN)2248 (Given - Provider: Bozena Zamora RN) 0440 (Given - Provider: Bozena Zamora RN)0952 (Given - Provider: Darling Keith RN)1632 (Given - Provider: Darling Keith RN) insulin [...] Discontinued 33 (Given - Provider: Jeff Renteria RN)210 (Given - Provider: Kalyani Mac RN) 1010 (Given - Provider: Darling Keith, BENTLEY)2100 (Given - Provider: Bozena Zamora RN) 0920 (Given - Provider: Darling Keith RN) lamoTRIgine (LaMICtal) tablet 25 mg, Oral, DAILY, First dose on Mon11/15/24 at 1630, Until Discontinued 0932 (Given - Provider: Jeff Renteria RN) 100 (Given - Provider: Darling Keith RN) 0921 (Given - Provider: Darling Keith RN) lidocaine (LIDODERM) 4 % patch 2 Patch, Transdermal, EVERY 24 HOURS, First dose on Mon11/16/24 at 0900, Until Discontinued 33 (Patch Applied - Provider: Jeff Renteria RN)213 [...] RN) 0258 (Given - Provider: Gisela Collado, BENTLEY)1009 (Given - Provider: Darling Keith RN)1512 (Given - Provider: Darling Keith, RN)2100 (Given - Provider: Bozena Zamora, BENTLEY) 0304 (Given - Provider: Gisela Collado, BENTLEY)0900 (Due - Provider: Ozzy Luna, PharmD) piperacillin-tazobacta [...] PRN, Starting on 11/16/24 at 0802, Until Mon11/19/24 at 2050, Muscle [...] Kalyani Mac RN)1728 (Given - Provider: Darling Keith, BENTLEY) metoclopramide (REGLAN) tablet 10 mg, Oral, EVERY 6 HOURS PRN, Starting on Mon11/19/24 at 0921, Until Mon11/19/24 at 2050, nausea and/or headache 0952 (Given - Provid er: Darling Keith, BENTLEY) ondansetron (ZOFRAN-ODT) disintegrating tablet 4 mg, Oral, [...] er: Jj Garber - Comment: lot # [id number]) iohexol (OMNIPAQUE) 350 MG/ML injection (COMPLETED) 100 [...] BE BASED ON THE PRIMARY CLINICAL RECORDS. [facility]. provides no warranty or guarantee of the accuracy or completeness of information in this document.
[2025-09-09] MEDS: 0.9% Normal Saline (1000mL) 1,000 ML 1000 ML IV (22:32)
[2025-09-09] MEDS: DiphenhydrAMINE 50 MG/ML Syringe 25 MG IV (22:36)
[2025-09-09 22:40] VITALS: BP 135/92; PULSE 68; RESP 17; O2SAT 100
[2025-09-09 23:08] LABS: Internal QC Validated? YES +Cl - CLEAR BKGD; Pregnancy, Urine Negative Negative; Record Kit Lot#,Urine Preg 980607
[2025-09-09 23:34] VITALS: BP 110/79; PULSE 63; RESP 18; TEMP 36.6; O2SAT 100
--- NOTE | 2025-09-10 00:38 | EX.ED.VIS.HA ---
HPI History of Present Illness Chief Complaint: Headache Narrative Narrative: Patient is a 30-year-old female presenting to the emergency department for a migraine. Patient has a prior history of migraines. She states that it started this morning around 11 AM. States that it feels like her prior migraines. Denies any recent head trauma or falls. States that came on fairly quickly however did not reach maximum intensity within 1 minute. States this is how her normal migraines start. She reports that its on the left side of her back of her head wrapping around up to the left sided front of her head. She denies any neck pain, fevers or chills. She endorses nausea with 2 episodes of vomiting which she states is also typical of her migraines. Denies any numbness or weakness in her arms or legs. Denies any slurred speech. Denies any vision changes at time of evaluation. Reports that she had a stroke in 2017 and "wanted to get checked out today". [facility] Medical History Breast cancer ADD (attention deficit disorder) Multiple sclerosis Asthma Stroke Migraines Home Medications Medication Instructions Recorded Last Taken Type dextroamphetamine-amphetamine ER 20 mg PO BID 02/10/22 Unknown History 20 mg 24hr capsule,extend release fremanezumab-vfrm 225 mg/1.5 mL 675 mg subcut [id number] 02/10/22 Unknown History subcutaneous auto-injector (Ajovy) labetalol 200 mg tablet 200 mg PO BID 30 days #60 tabs 11/09/24 Unknown Rx nifedipine 30 mg tablet,extended 30 mg PO BID #60 tabs 11/09/24 Unknown Rx release 24 hr (Procardia XL) lamotrigine 25 mg tablet (Lamictal) 25 mg PO DAILY 03/07/25 Unknown History metformin 500 mg tablet,extended 1,000 mg PO BID 03/07/25 Unknown History release 24 hr epinephrine 0.3 mg/0.3 mL 0.3 mg (0.3 mL) IM ONCE #2 ea 03/28/25 Unknown Rx injection, auto-injector (EpiPen 2-Heber) copper 380 square mm intrauterine 1 device intrauterine ONCE 03/31/25 Unknown History device (ParaGard T 380A) insulin glargine 100 unit/mL (3 16 unit subcut QPM 03/31/25 Unknown History mL) subcutaneous pen (Basaglar KwikPen U-100 Insulin) insulin lispro 100 unit/mL 1 sliding scale dose subcut TID 03/31/25 Unknown History subcutaneous pen blood-glucose,tool grinder operator external,cont #1 ea 05/05/25 Unknown Rx (Dexcom G7 Foundation Relations Manager) buspirone 5 mg tablet 5 mg PO BID 06/13/25 Unknown History benzonatate 200 mg capsule 200 mg PO TID PRN cough #30 caps 06/20/25 Unknown Rx blood-glucose sensor (Dexcom G7 #12 ea 06/20/25 Unknown Rx Sensor device) albuterol sulfate 90 mcg/actuation 1 - 2 puff inhalation Q4H PRN PRN 07/24/25 Unknown Rx aerosol inhaler for wheezing #8.5 ea dulaglutide 0.75 mg/0.5 mL 0.75 mg (0.5 mL) subcut QWEEK #2 mL 08/21/25 Unknown Rx subcutaneous pen injector (Trulicity) budesonide-formoterol HFA 80 2 puff inhalation BID #10.2 grams 08/27/25 Unknown Rx mcg-4.5 mcg/actuation aerosol inhaler (Symbicort) ferrous sulfate 325 mg (65 mg 325 mg PO QDAY #90 tabs 09/08/25 Unknown Rx iron) tablet,delayed release Allergy/AdvReac Type Severity Reaction Status Date / Time onabotulinumtoxinA (From Allergy Intermediate Itching Verified 09/09/25 18:53 Botox) adhesive tape (tape) Allergy Rash Verified 09/09/25 18:53 Latex, Natural Rubber Allergy Other Verified 09/09/25 18:53 verapamil Allergy Anaphylaxis Verified 09/09/25 18:53 Family History Father Heart disease Surgical History History of H/O knee surgery H/O dilation and curettage History of appendectomy History of lumpectomy History of tonsillectomy and adenoidectomy Social History number of children: 2 current occupational status: employed 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 No acute distress HEENT: Head is normocephalic and atraumatic, sinuses nontender, pupils equal round and reactive. Nares are patent. Oropharynx and throat exams normal. Neck: Supple without lymphadenopathy nontender. Normal active range of motion of neck. No nuchal rigidity. Cardiovascular: Regular rate and rhythm, no murmurs. No rubs or gallops. Normal S1 and S2 Respiratory: Clear to auscultation bilaterally. No wheezes, rales, rhonchi Abdominal: Soft and nontender. Normal bowel sounds. No guarding or rebound. Nonsurgical abdomen Extremities: No tenderness. No bruising. Normal range of motion. Normal sensation. Skin: No rash or redness. Neurological: Cranial nerves II through XII are grossly intact. Normal strength and sensation. Normal cerebellar function The rest of the physical exam is unremarkable Const Vital Signs: 09/09/25 18:53 09/09/25 22:40 09/09/25 23:34 Temperature 97.8 F 98 F Temperature Source Oral Pulse Rate 84 68 63 Respiratory Rate 16 17 18 Blood Pressure 144/100 H 135/92 H 110/79 Blood Pressure Mean 114 106 89 Pulse Ox 100 100 100 Oxygen Delivery Method Room Air Neuro oriented x3, CN's II-XII intact bilaterally and no sensory deficits noted Sensorium / Orientation: awake, alert, oriented to person, oriented to place and oriented to time Coordination / Balance: syfzuy-ed-ndvy test normal and dueh-im-ummu test normal Speech: speech normal Gait (Neuro): normal gait Motor Exam: strength 5/5 throughout MDM MDM MDM Narrative Medical decision making narrative: Patient is a 30-year-old female presenting to the emergency department for a migraine. Patient was seen and examined. Vitals are stable. Patient resting bed comfortably no acute distress. Patient is neurologically intact. NIH of 0. She states this feels similar to her prior migraines, came on similarly to her past migraines and she is having similar symptoms of nausea with intermittent vomiting. She has no signs of a stroke on her exam. She has no altered mental status or fever to be concerned about meningitis or encephalitis. She has no nuchal rigidity. It did not reach maximal intensity at 1 minute and with no neurologic symptoms I do not think she has a subarachnoid hemorrhage. No visual changes, proptosis or changes in her typical migraines to suspect a dural venous thrombosis. Discussed plan with patient to give a migraine cocktail. These medications were given and patient was reevaluated shortly after with resolution of her migraine. Patient discharged from the Emergency Department. I do not feel that the patient's evaluation reveals any acute reason for admission at this time. I instructed them to either follow-up with their primary care physician or promptly return to the Emergency Department for reevaluation should symptoms worsen or new symptoms develop. I explained what symptoms would indicate the need to return to the emergency department. Shared decision making was used. The patient voiced understanding of the treatment plan and is agreeable with it. Clinical impression Headache History & Record Review Discussion w/independent historian: Patient Lab Data Attestation: I reviewed the patient's lab results. Labs: Laboratory Results - last 24 hr 09/09/25 22:58 Urine Test Negative Discharge Plan Triage Chief Complaint: Headache ED Provider: Roxana White Dx/Rx/DC Orders Clinical Impression: Headache Instructions: ED, Migraine (Classical) Prescriptions: No Action Ajovy Autoinjector 225 mg/1.5 mL auto-injector 675 mg subcut [id number] Rx Instructions: administer as 3 consecutive 225 mg injections lamotrigine [Lamictal] 25 mg tablet 25 mg PO DAILY insulin glargine [Basaglar KwikPen U-100 Insulin] 100 unit/mL (3 mL) insulin pen 16 unit subcut QPM metformin 500 mg tablet extended release 24 hr 1,000 mg PO BID insulin lispro 100 unit/mL insulin pen 1 sliding scale dose subcut TID ParaGard T 380A 380 square mm intrauterine device 1 device intrauterine ONCE Rx Instructions: as a single dose epinephrine [EpiPen 2-Heber] 0.3 mg/0.3 mL auto-injector 0.3 mg IM ONCE Qty: 2 2RF Rx Instructions: as a single dose; may repeat once (DME) Dexcom G7 Sensor Device See Rx Instructions .Route Qty: 12 2RF Rx Instructions: As directed benzonatate 200 mg capsule 200 mg PO TID PRN (Reason: cough) Qty: 30 0RF buspirone 5 mg tablet 5 mg PO BID dextroamphetamine-amphetamine 20 mg capsule,extended release 24hr 20 mg PO BID labetalol 200 mg Tablet 200 mg PO BID 30 Days Qty: 60 1RF nifedipine [Procardia XL] 30 mg tablet extended release 24hr 30 mg PO BID Qty: 60 2RF (DME) Dexcom G7 Foundation Relations Manager Misc See Rx Instructions .Route Qty: 1 0RF Rx Instructions: As directed albuterol sulfate 90 mcg/actuation HFA aerosol inhaler 1 - 2 puff inhalation Q4H PRN PRN (Reason: for wheezing) Qty: 8.5 0RF Trulicity 0.75 mg/0.5 mL pen injector 0.75 mg subcut QWEEK Qty: 2 1RF Patient Comments: FRIDAYS budesonide-formoterol [Symbicort] 80-4.5 mcg/actuation HFA aerosol inhaler 2 puff inhalation BID Qty: 10.2 0RF Rx Instructions: rinse mouth after each use ferrous sulfate 325 mg (65 mg iron) tablet,delayed release (DR/EC) 325 mg PO QDAY Qty: 90 0RF Primary Care Provider: Radha Pascual Referrals: Radha Pascual MD [Primary Care Provider, Internal Medicine] - As soon as possible Activity Restrictions/Additional Instructions: Your evaluation in the Emergency Department did not reveal any acute reason for admission. However, I want to emphasize that you may be early in the course of a disease process or illness even if it is not present. For this reason you should follow-up within 24 hours for reevaluation with either your primary care physician or if necessary back here in the Emergency Department. You should return to the Emergency Department immediately if your symptoms worsen or new symptoms develop. Print Language: Frisian Disposition Disposition: Home, Self Care Discharge Date/Time: 09/09/25 23:35
== END 2025-09-09 23:35 | disposition home or self-care (01) ==
PROVIDERS: Emergency Provider Student in an Organized Health Care Education/Training Program; PCP Internal Medicine; Visit Provider Student in an Organized Health Care Education/Training Program
DX: R51.9 Headache, unspecified (principal); R29.700 NIHSS score 0; J45.909 Unspecified asthma, uncomplicated
CPT/HCPCS: 81025; 96361; 96374; 96375; 99282

== ENCOUNTER 2025-09-16 11:18 | Outpatient (CLI) | payer MEDICAID, SELFPAY ==
[2025-09-16 12:20] LABS: Barbiturate Urine NEGATIVE (< 200 ng/mL); Benzodiazepine Urine NEGATIVE (< 200 ng/mL); PCP Urine NEGATIVE (< 25 ng/mL); THC Urine NEGATIVE (< 50 ng/mL)
== END 2025-09-16 23:59 | disposition home or self-care (01) ==
LOC: LAB 11:19
PROVIDERS: PCP Internal Medicine; Referring Provider Nurse Practitioner Psychiatric/Mental Health; Visit Provider Nurse Practitioner Psychiatric/Mental Health
DX: Z01.89 Encounter for other specified special examinations (principal)
CPT/HCPCS: 80307

== ENCOUNTER → 2025-10-03 | Outpatient (CLI) | payer MEDICAID, SELFPAY | END | disposition home or self-care (01) | PROVIDERS: PCP Internal Medicine; Referring Provider Nurse Practitioner Psychiatric/Mental Health; Visit Provider Nurse Practitioner Psychiatric/Mental Health | DX: Z01.89 Encounter for other specified special examinations (principal) | CPT/HCPCS: 36415 ==